=== PATIENT | male | born 1950 | race Caucasian/White ===

== ENCOUNTER → 2016-05-22 | Outpatient (CLI) | payer MEDICARE, MEDICAID ==
[~2016-05-22] MED LIST: ALBU8.5H2 INH; ALBUTEROL INHALER INH; ALPR.5T PO; ASP325T PO; ASPI-587 PO; ASPI81TA19 PO; ATOR20TA66 PO; CLAR-19 PO; CLN.1T PO; CLOP75TA PO; CLOP75TA28 PO; DOXY-233 PO; DULO30CA48 PO; ENAL2.5T PO; FERR-57 PO; GLIP5TAB13; IBP800T PO; IBUP-792 PO; INSA10V SC; INSHRV SC; INSU100C4 SQ; INSU100V13 SC; INSU100V3 SQ; INSU100V5 SQ; INSU100VTC SC; INSUSS SC; Insulin Human Lispro SC; LACT1CAP8 PO; LEVE500T PO; LEVE500T6 PO; LEVO125T PO; LEVO200T6 PO; LEVO300T8; LEVO50TA63 PO; LISI-556 PO; LSNP20T PO; LVT.05T PO; LVT.1T PO; METO25TA PO; NF-ESOM40C PO; ONDA8TAB6 PO; PAIN MEDS; PRD20T PO; PRM25T PO; RT-COMBINH IH; SIMV20TA3 PO; VENL150C PO; VENL75CA55 PO; VNL75T PO; methadone
--- OUTSIDE RECORDS SUMMARY | 2016-05-22 12:14 | XMS REPORT ---
Author Author JAROD DELANEY Organization e[employer] Address Unknown Phone Unavailable Care Team Providers Care Senior Software Quality Engineer Name Role Phone JAROD DELANEY CP Unavailable Allergies No Known Allergies Problems Problem Type Condition Code Onset Dates Condition Status Problem Vascular dementia with behavior disturbance F01.51 Active Problem Depression F32.9 Active Problem Pain R52 Active Problem Abnormal carotid ultrasound R93.8 Active Problem Type 2 diabetes mellitus with complication E11.8 Active Problem Long-term insulin use Z79.4 Active Medications Medication Code System Code Instructions Start Date End Date Status Dosage tramadol NDC 0 50 mg oral 3 times a day June 23, 2014 Mar 14, 2016 take 1 tablet Results No Known Results Summary Purpose eClinicalWorks Submission
--- NOTE | 2016-05-22 16:13 | Diagnostic Imaging Report ---
PROCEDURE: US bilateral lower extremity arterial. TECHNIQUE: Multiple real-time grayscale images are obtained through both lower extremity arterial systems with color Doppler imaging and color Doppler spectral analysis. INDICATION: Peripheral vascular disease. FINDINGS: In the left lower extremity there are prominent areas of calcified plaque along the femoropopliteal segments. No color flow is seen in the distal SFA suggestive of occlusion. There is an elevated velocity in the distal popliteal artery to 340 cm/s. No flow is seen in the left posterior tibial artery. There is diminished flow velocity of 39 cm/s in the left dorsalis pedis artery. Monophasic waveforms are seen throughout. In the right lower extremity also, monophasic waveforms are seen throughout. There is occlusion of the proximal and mid SFA with distal SFA flow seen. There is a no flow seen in the posterior tibial or dorsalis pedis arteries. IMPRESSION: Findings suggestive of significant peripheral arterial disease with occlusions in the SFA and posterior tibial arteries on both sides. The right dorsalis pedis artery is also occluded. Report was faxed to the office of LOU Ribeiro at 4:09 p.m., by malcolm. Dictated by: Dictated on workstation # [id number]
== END ==
LOC: RAD 12:10
PROVIDERS: ATTEND Nurse Practitioner Community Health
DX: I73.9 Peripheral vascular disease, unspecified (principal)
CPT/HCPCS: 93925

== ENCOUNTER → 2016-06-04 | Outpatient (CLI) | payer MEDICARE, MEDICAID ==
[2016-06-04 19:18] LABS: BILIRUBIN,URINE NEGATIVE (NEGATIVE); KETONES,URINE NEGATIVE (NEGATIVE); LEUKOCYTE ESTERASE ,URINE NEGATIVE (NEGATIVE); NITRITE,URINE NEGATIVE (NEGATIVE); PH,URINE 7 (5-9); PROTEIN,URINE 3+ (NEGATIVE); UROBILINOGEN,URINE NORMAL (NORMAL)
== END ==
PROVIDERS: ATTEND Internal Medicine
DX: Z87.440 Personal history of urinary (tract) infections (principal)
CPT/HCPCS: 81000

== ENCOUNTER 2016-07-19 19:22 | Emergency (ER) | payer MEDICARE, MEDICAID ==
[~2016-07-19] VITALS: Ht 177.8 cm; Wt 74.8 kg
[~2016-07-19 19:22] MED LIST changes: -LACT1CAP8 PO
[2016-07-19] MEDS ORDERED: LACTATED RINGERS 1,000 ML IV ONE (19:30)
--- NOTE | 2016-07-19 19:36 | ED GI ---
General Chief Complaint: Abdominal/GI Problems Stated Complaint: DIARRHEA Source of Information: Patient, EMS, Senior Care Records History of Present Illness Time Seen By Provider: 19:22 Initial Comments PT ARRIVES VIA EMS FROM [facility] PT HAS HAD DIARRHEA X 3-4 DAYS, STATES HE HAS HAD SOMEWHERE BETWEEN 5 AND 10 STOOLS TODAY NO VOMITING, BUT NOT BEEN EATING OR DRINKING MUCH USUAL NO FEVER NO ABDOMINAL PAIN NO CHANGE IN URINATION, PER PT PT NORMALLY IS AMBULATORY ON HIS OWN, BUT TODAY HAS BEEN TOO WEAK TO STAND AND REQUIRED 2 PERSON ASSIST TO STAND--PT STATES HE HAS BEEN LIGHTHEADED TODAY CARETAKERS THOUGHT HIS SPEECH WAS A LITTLE SLURRED TODAY--PT' S MOUTH IS VERY DRY PCP: DR. DELANEY Allergies and Home Medications Allergies Coded Allergies: acetaminophen (Verified Allergy, Intermediate, 12/09/11) Home Medications Aspirin 81 Mg Chew, 81 MG PO DAILY, (Reported) Atorvastatin Calcium 20 Mg Tablet, 20 MG PO HS, (Reported) Clopidogrel Bisulfate 75 Mg Tablet, 75 MG PO DAILY, (Reported) Enalapril Maleate 2.5 Mg Tablet, 2.5 MG PO BID, (Reported) Insulin Detemir 1 Unit/0.01 Ml Soln, 10 UNIT SQ HS for 30 Days Prescribed by: THERESA HOYT on 01/20/14 1307 Lactobacillus Acidophilus 1 Each Capsule, 2 EACH PO QID, #80 Prescribed by: CUCO UMANA on 07/19/16 9883 Levetiracetam 500 Mg Tablet, 500 MG PO BID, (Reported) Levothyroxine Sodium 200 Mcg Tablet, 200 MCG PO DAILY, (Reported) TAKES ALONG WITH 50MCG TABLET Levothyroxine Sodium 50 Mcg Tablet, 50 MCG PO DAILY, (Reported) TAKES ALONG WITH 200MCG TABLET Metoprolol Succinate 25 Mg Tab.sr.24h, 25 MG PO DAILY, (Reported) Venlafaxine Hcl 75 Mg Tab, 75 MG PO BID, (Reported) [Insulin Human Lispro] 1 UNIT/0.01 ML BENNETT, 5 UNIT SC AC for 30 Days Prescribed by: THERESA HOYT on 01/20/14 1307 Review of Systems Constitutional: see HPI, dizziness, No fever, malaise, weakness EENTM: Other (DRY MOUTH) Respiratory: No Symptoms Reported Cardiovascular: No Symptoms Reported Gastrointestinal: See HPI, Denies Abdominal Pain, Diarrhea, Denies Nausea, Poor Appetite, Poor Fluid Intake, Denies Vomiting Genitourinary: No Symptoms Reported Musculoskeletal: no symptoms reported Skin: no symptoms reported Psychiatric/Neurological: See HPI Endocrine: No Symptoms Reported Hematologic/Lymphatic: No Symptoms Reported Past Fpsfoko-Qxfwow-Sswabd Hx Immunizations Up To Date Tetanus Booster (TDap): Unknown Date of Pneumonia Vaccine: Mar 20, 2004 Date of Influenza Vaccine: Nov 12, 2010 Surgeries HX Surgeries: Yes (KNEE AND BACK SURGERY: DISKECTOMY AND FUSIONS, TOE AMPUTATION) Surgeries: Amputation, Coronary Stent Respiratory Hx Respiratory Disorders: Yes Respiratory Disorders: COPD Cardiovascular Hx Cardiac Disorders: Yes (STENT) Cardiac Disorders: Coronary Artery Disease, High Cholesterol, Hypertension, Peripheral Vascular Neurological Hx Neurological Disorders: Yes (VASCULAR DEMENTIA WITH BEHAVIORAL DISTURBANCE; PSEUDOBULBAR AFFECT; CONVERSION DISORDER WITH SEIZURES) Neurological Disorders: Dementia, Neuropathy, Seizure Disorder, Stroke Reproductive System Hx Reproductive Disorders: No Genitourinary Hx Genitourinary Disorders: No Gastrointestinal Hx Gastrointestinal Disorders: Yes (INTERMITTANT STENTS) Gastrointestinal Disorders: Gastroesophageal Reflux, Pancreatitis Musculoskeletal Hx Musculoskeletal Disorders: Yes (R TOE AMPUTATION; CHRONIC PAIN ) Musculoskeletal Disorders: Degenerate Disk Disease, Arthritis Endocrine Hx Endocrine Disorders: Yes Endocrine Disorders: Diabetes, Insulin dep, Hypothyroidsim HEENT HX ENT Disorders: No Cancer Hx Cancer: No Psychosocial Hx Psychiatric Problems: Yes Behavioral Health Disorders: Anxiety, Depression Integumentary HX Skin/Integumentary Disorder: No Blood Transfusions Hx Blood Disorders: No Family Medical History Family Medial History: Cardiovascular disease 19 FATHER 19 MOTHER Diabetes mellitus G8 BROTHER FH: cancer Thyroid disease 19 MOTHER (HYPOTHYROIDISM) Physical Exam Vital Signs VS - Last 72 Hours, by Label 07/19/16 19:24 Temp 98.3 Pulse 53 Resp 16 B/P (MAP) 113/91 Pulse Ox 97 O2 Delivery Room Air Capillary Refill : General Appearance: WD/WN, no apparent distress HEENT: PERRL/EOMI, other (ORAL MUCOSA VERY DRY, CAUSING SPEECH TO BE "THICK TONGUED" --TONGUE STICKING TO ROOF OF MOUTH DUE TO DRYNESS, AND TONGUE IS FISSURED) Neck: non-tender, full range of motion, supple, normal inspection Respiratory: normal breath sounds, no respiratory distress, no accessory muscle use Cardiovascular: regular rate, rhythm, no murmur Gastrointestinal: normal bowel sounds, soft, no organomegaly, tenderness ( SLIGHT DIFFUSE " PRESSURE" ON PALPATION OF ABDOMEN) Extremities: normal inspection, no pedal edema, no calf tenderness, normal capillary refill Back: no CVA tenderness Neurologic/Psychiatric: investment specialist II-XII nml as tested, no motor/sensory deficits, alert, normal mood/affect, oriented x 3 Skin: warm/dry, pallor Progress/Results/Core Measures Results/Orders Lab Results Laboratory Tests Test 07/19/16 19:29 07/19/16 19:51 07/19/16 22:03 Range/Units Glucometer 150 H 70-110 MG/DL White Blood Count 7.7 4.3-11.0 10^3/uL Red Blood Count 3.61 L 4.35-5.85 10^6/uL Hemoglobin 11.4 L 13.3-17.7 G/DL Hematocrit 34 L 40-54 % Mean Corpuscular Volume 94 80-99 FL Mean Corpuscular Hemoglobin 32 25-34 PG Mean Corpuscular Hemoglobin Concent 34 32-36 G/DL Red Cell Distribution Width 12.2 10.0-14.5 % Platelet Count 128 L 130-400 10^3/uL Mean Platelet Volume 11.2 H 7.4-10.4 FL Neutrophils (%) (Auto) 52 42-75 % Lymphocytes (%) (Auto) 35 12-44 % Monocytes (%) (Auto) 10 0-12 % Eosinophils (%) (Auto) 2 0-10 % Basophils (%) (Auto) 1 0-10 % Neutrophils # (Auto) 4.0 1.8-7.8 X 10^3 Lymphocytes # (Auto) 2.7 1.0-4.0 X 10^3 Monocytes # (Auto) 0.8 0.0-1.0 X 10^3 Eosinophils # (Auto) 0.2 0.0-0.3 10^3/uL Basophils # (Auto) 0.1 0.0-0.1 10^3/uL Sodium Level 130 L 135-145 MMOL/L Potassium Level 4.8 3.6-5.0 MMOL/L Chloride Level 98 98-107 MMOL/L Carbon Dioxide Level 22 21-32 MMOL/L Anion Gap 10 5-14 MMOL/L Blood Urea Nitrogen 21 H 7-18 MG/DL Creatinine 1.03 0.60-1.30 MG/DL Estimat Glomerular Filtration Rate > 60 BUN/Creatinine Ratio 20 Glucose Level 141 H 70-105 MG/DL Calcium Level 7.9 L 8.5-10.1 MG/DL Magnesium Level 1.4 L 1.8-2.4 MG/DL Total Bilirubin 0.3 0.1-1.0 MG/DL Aspartate Amino Transf (AST/SGOT) 17 5-34 U/L Alanine Aminotransferase (ALT/SGPT) 11 0-55 U/L Alkaline Phosphatase 57 40-136 U/L Total Protein 5.6 L 6.4-8.2 G/DL Albumin 3.5 3.2-4.5 G/DL Amylase Level 40 25-125 U/L Lipase < 4 L 8-78 U/L Free Thyroxine 0.95 0.70-1.48 NG/DL TSH Gardner Testing 5.18 H 0.35-4.94 UIU/ML Valproic Acid (Depakene) Level 50.3 50.0-100.0 UG/ML Urine Color YELLOW Urine Clarity CLEAR Urine pH 6 5-9 Urine Specific [place] 1.010 L 1.016-1.022 Urine Protein NEGATIVE NEGATIVE Urine Glucose (UA) NEGATIVE NEGATIVE Urine Ketones NEGATIVE NEGATIVE Urine Nitrite NEGATIVE NEGATIVE Urine Bilirubin NEGATIVE NEGATIVE Urine Urobilinogen NORMAL NORMAL MG/DL Urine Leukocyte Esterase NEGATIVE NEGATIVE Urine RBC (Auto) NEGATIVE NEGATIVE Urine RBC NONE /HPF Urine WBC NONE /HPF Urine Squamous Epithelial Cells RARE /HPF Urine Crystals NONE /LPF Urine Bacteria NEGATIVE /HPF Urine Casts NONE /LPF Urine Mucus NEGATIVE /LPF Urine Other FEW SPERM H /HPF Urine Culture Indicated NO My Orders Orders - CUCO UMANA DO Accucheck Stat ONCE (07/19/16 19:30) Saline Lock/Iv-Start (07/19/16 19:30) Monitor-Rhythm Ecg Trace Only (07/19/16 19:30) Amylase (07/19/16 19:30) Cbc With Automated Diff (07/19/16 19:30) Comprehensive Metabolic Panel (07/19/16 19:30) Lipase (07/19/16 19:30) Magnesium (07/19/16 19:30) Thyroid Analyzer (07/19/16 19:30) Ua Culture If Indicated (07/19/16 19:30) Valproic Acid (07/19/16 19:30) Saline Lock/Iv-Start (07/19/16 19:30) Lactated Ringers (Lr 1000 Ml Iv Solution (07/19/16 19:30) Ct Abdomen/Pelvis W (07/19/16 20:35) Saline Lock/Iv-Start (07/19/16 20:35) Ns Iv 1000 Ml (Sodium Chloride 0.9%) (07/19/16 20:35) Magnesium 1 Gm/100 Ml Ivpb (Magnesium Quintero (07/19/16 20:45) Iohexol Injection (Omnipaque 350 Mg/Ml 1 (07/19/16 20:45) Ns (Ivpb) (Sodium Chloride 0.9% Ivpb Bag (07/19/16 20:45) Free T4 (Free Thyroxine) (07/19/16 19:51) Medications Given in ED Current Medications Medications Dose Ordered Sig/Manuel Route Start Time Stop Time Status Last Admin Dose Admin Iohexol 100 ml ONCE ONCE IV 07/19/16 20:45 07/19/16 20:46 DC 07/19/16 20:45 100 ML Lactated Ringer's 1,000 ml @ 0 mls/hr Q0M ONCE IV 07/19/16 19:30 07/19/16 19:32 DC 07/19/16 20:05 0 MLS/HR Magnesium Sulfate/ Dextrose 100 ml @ 100 mls/hr ONCE ONCE IV 07/19/16 20:45 07/19/16 21:44 DC 07/19/16 21:18 100 MLS/HR Sodium Chloride 100 ml ONCE ONCE IV 07/19/16 20:45 07/19/16 20:46 DC 07/19/16 20:45 80 ML Sodium Chloride 1,000 ml @ 0 mls/hr Q0M ONCE IV 07/19/16 20:35 07/19/16 21:37 DC 07/19/16 21:15 0 MLS/HR Vital Signs/I&O Vital Sign - Last 12Hours 07/19/16 19:24 Temp 98.3 Pulse 53 Resp 16 B/P (MAP) 113/91 Pulse Ox 97 O2 Delivery Room Air Progress Note : Progress Note UNEVENTFUL ER STAY--PT HAD NO COMPLAINTS OF ANY KIND PT WITH NO DIARRHEA DURING ER STAY--WILL SEND BACK TO INTERMEDIATE WITH SPECIMEN CONTAINERS AND OUTPATIENT ORDERS FOR STOOL STUDIES PT DRINKING WATER WITHOUT DIFFICULTY DURING ER STAY Diagnostic Imaging Comments CT ABDOMEN/PELVIS--FLUID IN INTESTINES C/W DIARRHEA, OTHERWISE NO ACUTE PROCESS- -PER RADIOLOGIST REPORT @ 6187 Reviewed: Reviewed by Me Departure Impression Impression: Primary Impression: Diarrhea Additional Impressions: Dehydration Generalized weakness Hyponatremia Hypomagnesemia Disposition: SNF Condition: Improved Departure-Patient Inst. Referrals: JOLLY DELANEY MD (PCP) Primary Care Physician STEPHANIE CHRISTIANSEN (Family) Primary Care Physician Patient Instructions: Dehydration, Adult (DC), Diarrhea in Adolescents and Adults, Electrolyte Panel, Viral Gastroenteritis, Adult (DC) Add. Discharge Instructions: CLEAR LIQUIDS--WATER, BROTH, JELLO, GATORADE--DRINK ENOUGH SO YOU ARE URINATING EVERY 2-3 HOURS WHILE AWAKE BRATS DIET--BANANAS, RICE, APPLESAUCE, TOAST, SALTINES RETURN STOOL SPECIMEN TO LAB SOON IT IS OBTAINED FOLLOW UP WITH YOUR DR IN 2-3 DAYS IF NO BETTER RETURN TO ER IF WORSE All discharge instructions reviewed with patient and/or family. Voiced understanding. Scripts Lactobacillus Acidophilus (Acidophilus) 1 Each Capsule 2 EACH PO QID, #80 CAP Prov: CUCO UMANA DO 07/19/16 CUCO UMANA DO Jul 19, 2016 19:36
[2016-07-19 19:57] LABS: BASOPHILS # (AUTO) 0.1 10^3/uL (0.0-0.1); BASOPHILS % (AUTO) 1 % (0-10); EOSINOPHILS # (AUTO) 0.2 10^3/uL (0.0-0.3); EOSINOPHILS % (AUTO) 2 % (0-10); LYMPHOCYTES # (AUTO) 2.7 X 10^3 (1.0-4.0); LYMPHOCYTES % (AUTO) 35 % (12-44); MEAN CORPUSCULAR HEMOGLOBIN 32 PG (25-34); MEAN CORPUSCULAR HGB CONC 34 G/DL (32-36); MEAN CORPUSCULAR VOLUME 94 FL (80-99); MEAN PLATELET VOLUME 11.2 FL (7.4-10.4); MONOCYTES # (AUTO) 0.8 X 10^3 (0.0-1.0); MONOCYTES % (AUTO) 10 % (0-12); NEUTROPHILS % (AUTO) 52 % (42-75); PLATELET COUNT 128 10^3/uL (130-400); RED BLOOD COUNT 3.61 10^6/uL (4.35-5.85); RED CELL DISTRIBUTION WIDTH 12.2 % (10.0-14.5); WHITE BLOOD COUNT 7.7 10^3/uL (4.3-11.0)
[2016-07-19 20:23] LABS: ALANINE AMINOTRANSFERASE 11 U/L (0-55); ALBUMIN 3.5 G/DL (3.2-4.5); AMYLASE 40 U/L (25-125); ANION GAP 10 MMOL/L (5-14); ASPARTATE AMINO TRANSFERASE 17 U/L (5-34); BILIRUBIN,TOTAL 0.3 MG/DL (0.1-1.0); BLOOD UREA NITROGEN 21 MG/DL (7-18); BUN/CREATININE RATIO 20; CALCIUM 7.9 MG/DL (8.5-10.1); CARBON DIOXIDE 22 MMOL/L (21-32); CHLORIDE 98 MMOL/L (98-107); CREATININE SERUM 1.03 MG/DL (0.60-1.30); GFR ESTIMATED > 60; GLUCOSE 141 MG/DL (70-105); LIPASE < 4 U/L (8-78); MAGNESIUM 1.4 MG/DL (1.8-2.4); POTASSIUM 4.8 MMOL/L (3.6-5.0); SODIUM 130 MMOL/L (135-145); TOTAL PROTEIN 5.6 G/DL (6.4-8.2)
[2016-07-19] MEDS ORDERED: NS IV 1000 ML 1,000 ML IV ONE (20:35)
[2016-07-19 20:45] LABS: VALPROIC ACID 50.3 UG/ML (50.0-100.0)
[2016-07-19] MEDS ORDERED: NS 100 ML (IVPB) BAG IV ONE (20:45)
[2016-07-19] MEDS ORDERED: MAGNESIUM 1 GM/100 ML IVPB 100 ML IV ONE (20:45)
[2016-07-19] MEDS ORDERED: IOHEXOL 350 MG/ML 100 ML (OMNIPAQUE 350) VIAL IV ONE (20:45)
--- NOTE | 2016-07-19 21:10 | Diagnostic Imaging Report ---
PROCEDURE: CT abdomen and pelvis with contrast. TECHNIQUE: Multiple contiguous axial images were obtained through the abdomen and pelvis after administration of intravenous contrast. INDICATION: Abdominal pain and diarrhea x3 days Lung bases are clear. Liver appears normal. Gallbladder surgically absent. Spleen is unremarkable. There are calcifications throughout the pancreas suggesting chronic pancreatitis but no evidence of acute pancreatitis. Adrenals and kidneys appear normal. There is atherosclerosis of the aorta. Small bowel contains increased amount of fluid. There is gas throughout the colon. Urinary bladder and prostate appear normal. There is no intraperitoneal free air or free fluid. IMPRESSION: Increased small intestinal fluid could be secondary to diarrhea. CT abdomen and pelvis otherwise unremarkable. Dictated by: Dictated on workstation # [id number]
[2016-07-19 22:08] LABS: BILIRUBIN,URINE NEGATIVE (NEGATIVE); KETONES,URINE NEGATIVE (NEGATIVE); LEUKOCYTE ESTERASE ,URINE NEGATIVE (NEGATIVE); NITRITE,URINE NEGATIVE (NEGATIVE); PH,URINE 6 (5-9); PROTEIN,URINE NEGATIVE (NEGATIVE); UROBILINOGEN,URINE NORMAL (NORMAL)
[2016-07-19 22:18] LABS: SQUAMOUS EPITHELIAL CELL,UR RARE /HPF
[2016-07-19] MEDS ORDERED: LACT1CAP8 PO (22:53)
[2016-07-19 23:10] VITALS: BP 107/51
--- OUTSIDE RECORDS SUMMARY | 2016-08-25 04:10 | XMS REPORT ---
Author Author JAROD DELANEY Organization e[employer]Works Address Unknown Phone Unavailable Care Team Providers Care Garnetter Name Role Phone JAROD DELANEY CP Unavailable [...]
--- OUTSIDE RECORDS SUMMARY | 2016-08-25 04:11 | XMS REPORT ---
Author Author STEPHANIE CHRISTIANSEN Organization [employer] Address Unknown Phone Unavailable Care Team Providers Care Medical Records Manager Name Role Phone STEPHANIE CHRISTIANSEN CP Unavailable Allergies No Known Allergies Problems Problem Type Condition ICD-9 Code Onset Dates Condition Status Problem Personal history of noncompliance with medical treatment, presenting hazards to health V15.81 Active Assessment Nicotine addiction 305.1 Active Problem Acute bronchitis 466.0 Active Problem Other malaise and fatigue 780.79 Active Problem Unspecified drug dependence, unspecified abuse 304.90 Active Problem Hyposmolality and/or hyponatremia 276.1 Active Problem Diarrhea 787.91 Active Problem Personal history of tobacco use, presenting hazards to health V15.82 Active Problem Lumbago 724.2 Active Problem Other chronic pain 338.29 Active Problem Lower limb amputation, other toe(s) V49.72 Active Problem Diabetes 250.00 Active Problem Dizziness and giddiness 780.4 Active Problem Other alteration of consciousness 780.09 Active Problem Other abnormal blood chemistry 790.6 Active Problem Major depressive disorder, recurrent episode, severe, without mention of psychotic behavior 296.33 Active Problem Delirium due to conditions classified elsewhere 293.0 Active Problem Other disorder of coccyx 724.79 Active Problem Primary localized osteoarthrosis, lower leg 715.16 Active Problem Unspecified backache 724.5 Active Problem Unspecified persistent mental disorders due to conditions classified elsewhere 294.9 Active Problem Muscle weakness (generalized) 728.87 Active Problem Disturbance of skin sensation 782.0 Active Problem Unspecified anemia 285.9 Active Problem Unspecified sleep disturbance 780.50 Active Medications No Known Medications Procedures Procedure Coding System Code Date Stable Visit (10 minutes) CPT-4 51824 Dec 28, 2014 Results No Known Results Summary Purpose eClinicalWorks Submission
--- OUTSIDE RECORDS SUMMARY | 2016-08-25 04:11 | XMS REPORT ---
Author Author STEPHANIE CHRISTIANSEN [facility] eClinical[employer] Address Unknown Phone Unavailable Care Team Providers Care Environmental Sampling Technician Name Role Phone STEPHANIE CHRISTIANSEN CP Unavailable Allergies No Known Allergies Problems Problem Type Condition Code Onset Dates Condition Status Problem Lower limb amputation, other toe(s) V49.72 Active Problem Type 2 diabetes mellitus with complication E11.8 Active Problem Long-term insulin use Z79.4 Active Problem Depression F32.9 Active Problem Major depressive disorder, recurrent episode, severe, without mention of psychotic behavior 296.33 Active Problem Other chronic pain 338.29 Active Problem Personal history of tobacco use, presenting hazards to health V15.82 Active Problem Lumbago 724.2 Active Medications No Known Medications Results No Known Results Summary Purpose eClinicalWorks Submission
--- OUTSIDE RECORDS SUMMARY | 2016-08-25 04:11 | XMS REPORT ---
Author JAROD Sanchez [facility] eClinical[employer] Address Unknown Phone Unavailable Care Team Providers Care Sales Enablement Consultant Name Role Phone JAROD DELANEY CP Unavailable Allergies, Adverse Reactions, Alerts Substance Reaction Event Type Benzodiazepines Violated Narcotics Contract (Buying drugs off the street) & failed UDS Non Drug Allergy Hydrocodone Violated Narcotics Contract (buying drugs off the street) & failed UDS Non Drug Allergy Problems Problem Type Condition Code Onset Dates Condition Status Problem Vascular dementia with behavior disturbance F01.51 Active Problem Depression F32.9 Active Problem Pain R52 Active Problem Abnormal carotid ultrasound R93.8 Active Assessment Viral illness B34.9 Active Problem Type 2 diabetes mellitus with complication E11.8 Active Problem Long-term insulin use Z79.4 Active Medications Medication Code System Code Instructions Start Date End Date Status Dosage Citalopram Hydrobromide [facility] [address]-80 20 mg Orally Once a day 1 tablet Melatonin [facility] [address]-32 3 MG Orally Once a day 1 tablet at bedtime as needed with food Remeron [facility] [address]-44 15 MG Orally Once a day 1 tablet before bedtime in the evening NovoLog [facility] [address]-84 100 UNIT/ML Subcutaneous 3 times a day 8 units Ativan [facility] [address]-66 1 MG Orally twice a day June 23, 2014 1 tablet Levothyroxine Sodium [facility] [address]-98 150 MCG Orally Once a day Mar 06, 2015 1 tablet Aspirin [facility] [address]-86 81 mg Feb 04, 2013 1 tablet by Oral route 1 time per day Keppra [facility] [address]-23 500 MG Orally every 12 hrs 1 tablet Levemir [facility] [address]-08 100 15 UNITS UNDER THE SKIN AT BEDTIME Vitamin D3 [facility] [address]-03 2000 UNIT Orally Once a day 2 capsule (4000 units) Vasotec [facility] [address]-43 2.5 MG Orally Once a day 1 tablet Effexor NDC 0 150 mg May 02, 2011 1 Capsule by Oral route 1 time per day for 30 days tramadol NDC 0 50 mg oral 3 times a day June 23, 2014 Mar 06, 2016 take 1 tablet Metoprolol Succinate ER [facility] [address]-22 25 MG Orally Once a day 1 tablet Plavix [facility] [address]-63 75 MG Orally Once a day 1 tablet Atorvastatin Calcium [facility] [address]-92 10 mg Orally Once a day at HS 1 tablet Exelon [facility] [address]-95 9.5 MG/24HR Transdermal Once a day July 14, 2015 1 patch to skin Depakote Sprinkles [facility] [address]-35 250 mg Orally Once a day 1 capsule Metformin HCl [facility] [address]-41 1000 MG Orally Twice a day 1 tablet with meals Procedures Procedure Coding System Code Date Office Visit, Est Pt., Level 2 CPT-4 19903 Feb 15, 2016 [facility] VISIT ESTABLISHED PATIENT CPT-4 G0467 Feb 15, 2016 Vital Signs Date/Time: Feb 15, 2016 Cardiac Monitoring Heart Rate 72 bpm Weight 170.6 lbs Height 68 in BMI 25.94 Index Blood Pressure Diastolic 74 mmHg Blood Pressure Systolic 124 mmHg Results No Known Results Summary Purpose eClinicalWorks Submission
--- OUTSIDE RECORDS SUMMARY | 2016-08-25 04:11 | XMS REPORT ---
Author Author JAROD DELANEY Organization [employer] Address Unknown Phone Unavailable Care Team Providers Care Television Maintenance Man Name Role Phone JAROD DELANEY CP Unavailable Allergies No Known Allergies Problems Problem Type Condition Code Onset Dates Condition Status Problem Vascular dementia with behavior disturbance F01.51 Active Problem Depression F32.9 Active Problem Pain R52 Active Problem Abnormal carotid ultrasound R93.8 Active Assessment Pain R52 Active Problem Type 2 diabetes mellitus with complication E11.8 Active Problem Long-term insulin use Z79.4 Active Medications Medication Code System Code Instructions Start Date End Date Status Dosage tramadol NDC 0 50 mg oral 3 times a day June 23, 2014 Feb 12, 2016 take 1 tablet as needed pain Results No Known Results Summary Purpose eClinicalWorks Submission
--- OUTSIDE RECORDS SUMMARY | 2016-08-25 04:11 | XMS REPORT ---
Author Author STEPHANIE CHRISTIANSEN Organization [employer] Address Unknown Phone Unavailable Care Team Providers Care Presto Log Operator Name Role Phone STEPHANIE CHRISTIANSEN CP Unavailable Allergies No Known Allergies Problems Problem Type Condition Code Onset Dates Condition Status Problem Personal history of noncompliance with medical treatment, presenting hazards to health V15.81 Active Assessment Hyperthyroidism E05.90 Active Problem Acute bronchitis 466.0 Active Problem [...] disturbance 780.50 Active Medications No Known Medications Results No Known Results Summary Purpose eClinicalWorks Submission
--- OUTSIDE RECORDS SUMMARY | 2016-08-25 04:12 | XMS REPORT ---
Author Author STEPHANIE CHRISTIANSEN Organization [employer] Address Unknown Phone Unavailable Care Team Providers Care Vacuum Cleaner Assembler Name Role Phone STEPHANIE CHRISTIANSEN CP Unavailable Allergies No Known Allergies Problems Problem Type Condition Code Onset Dates Condition Status Problem Unspecified drug dependence, unspecified abuse 304.90 Active Problem Hyposmolality and/or hyponatremia 276.1 Active Problem Diarrhea 787.91 Active Problem Personal history of tobacco use, presenting hazards to health V15.82 Active Problem Other chronic pain 338.29 Active Problem Lumbago 724.2 Active Problem Lower limb amputation, other toe(s) V49.72 Active Problem Dizziness and giddiness 780.4 Active Problem Diabetes 250.00 Active Problem Other alteration of consciousness 780.09 [...] Active Problem Unspecified anemia 285.9 Active Problem Personal history of noncompliance with medical treatment, presenting hazards to health V15.81 Active Problem Other malaise and fatigue 780.79 Active Problem Unspecified sleep disturbance 780.50 Active Problem Acute bronchitis 466.0 Active Medications Medication Code System Code Instructions Start Date End Date Status Dosage Levothyroxine Sodium [facility] [address]-82 150 MCG Orally Once a day Mar 06, 2015 1 tablet Results No Known Results Summary Purpose eClinicalWorks Submission
--- OUTSIDE RECORDS SUMMARY | 2016-08-25 04:12 | XMS REPORT ---
Author Author STEPHANIE CHRISTIANSEN Organization [employer] Address Unknown Phone Unavailable Care Team Providers Care Well Puller Head Name Role Phone STEPHANIE CHRISTIANSEN CP Unavailable [...] Instructions Start Date End Date Status Dosage Levemir [facility] [id number] 100 20 UNITS IN THE MORNING AND AT BEDTIME Results No Known Results Summary Purpose eClinicalWorks Submission
--- OUTSIDE RECORDS SUMMARY | 2016-08-25 04:12 | XMS REPORT ---
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
--- OUTSIDE RECORDS SUMMARY | 2016-08-25 04:12 | XMS REPORT ---
Author Author JAROD DELANEY Organization [employer] Address Unknown Phone Unavailable Care Team Providers Care Health Information Systems Technician Name Role Phone JAROD DELANEY CP Unavailable [...] 2014 Feb 12, 2016 take 1 tablet Results No Known Results Summary Purpose [employer]Clinical[employer] Submission
--- OUTSIDE RECORDS SUMMARY | 2016-08-25 04:12 | XMS REPORT ---
Author Author STEPHANIE CHRISTIANSEN Organization [employer] Address Unknown Phone Unavailable Care Team Providers Care Electric Motor Repairman Name Role Phone STEPHANIE CHRISTIANSEN CP Unavailable Allergies No Known Allergies Problems Problem Type Condition Code Onset Dates Condition Status Problem Other malaise and fatigue 780.79 Active Problem Dizziness and giddiness 780.4 Active Problem Diarrhea 787.91 Active Problem Lower limb amputation, other toe(s) V49.72 Active Problem Hyposmolality and/or hyponatremia 276.1 Active Problem Other chronic pain 338.29 Active Problem Other abnormal blood chemistry 790.6 Active Problem Delirium due to conditions classified elsewhere 293.0 Active Problem Other alteration of consciousness 780.09 Active Problem Type 2 diabetes mellitus with complication E11.8 Active Problem Long-term insulin use Z79.4 Active Problem Other disorder of coccyx 724.79 Active Problem Unspecified persistent mental disorders due to conditions classified elsewhere 294.9 Active Problem Depression F32.9 Active Problem Unspecified backache 724.5 Active Problem Lumbago 724.2 Active Problem Major depressive disorder, recurrent episode, severe, without mention of psychotic behavior 296.33 Active Problem Diabetes 250.00 Active Problem Personal history of tobacco use, presenting hazards to health V15.82 Active Problem Unspecified sleep disturbance 780.50 Active Problem Muscle weakness (generalized) 728.87 Active Problem Primary localized osteoarthrosis, lower leg 715.16 Active Problem Unspecified anemia 285.9 Active Problem Acute bronchitis 466.0 Active Problem Unspecified drug dependence, unspecified abuse 304.90 Active Problem Disturbance of skin sensation 782.0 Active Problem Personal history of noncompliance with medical treatment, presenting hazards to health V15.81 Active Medications No Known Medications Results No Known Results Summary Purpose [employer] Submission
--- OUTSIDE RECORDS SUMMARY | 2016-08-25 04:12 | XMS REPORT ---
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
--- OUTSIDE RECORDS SUMMARY | 2016-08-25 04:12 | XMS REPORT ---
Author Author STEPHANIE CHRISTIANSEN [facility] [employer] Address Unknown Phone Unavailable Care Team Providers Care Bacteriologist Fishery Name Role Phone STEPHANIE CHRISTIANSEN CP Unavailable [...]
--- OUTSIDE RECORDS SUMMARY | 2016-08-25 04:13 | XMS REPORT ---
Author Author STEPHANIE CHRISTIANSEN Organization [employer] Address Unknown Phone Unavailable Care Team Providers Care Spoon Maker Name Role Phone STEPHANIE CHRISTIANSEN CP Unavailable [...]
--- OUTSIDE RECORDS SUMMARY | 2016-08-25 04:13 | XMS REPORT ---
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
--- OUTSIDE RECORDS SUMMARY | 2016-08-25 04:13 | XMS REPORT ---
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
--- OUTSIDE RECORDS SUMMARY | 2016-08-25 04:13 | XMS REPORT ---
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
--- OUTSIDE RECORDS SUMMARY | 2016-08-25 04:14 | XMS REPORT ---
Author Author JAROD DELANEY Organization [employer] Address Unknown Phone Unavailable Care Team Providers Care Cost Controller Name Role Phone JAROD DELANEY CP Unavailable [...]
--- OUTSIDE RECORDS SUMMARY | 2016-08-25 04:14 | XMS REPORT ---
Author Author STEPHANIE CHRISTIANSEN Organization [employer] Address Unknown Phone Unavailable Care Team Providers Care Servicer Travel Trailers Name Role Phone STEPHANIE CHRISTIANSEN CP Unavailable Allergies No Known Allergies Problems Problem Type Condition Code Onset Dates Condition Status Assessment Long-term insulin use Z79.4 Active Assessment Type 2 diabetes mellitus with complication E11.8 Active Assessment Depression F32.9 Active Problem Other malaise and fatigue 780.79 [...] health V15.81 Active Medications No Known Medications Procedures Procedure Coding System Code Date Minor complication (15 mins) CPT-4 92031 Mar 15, 2015 Results No Known Results Summary Purpose [employer]Clinical[employer] Submission
--- OUTSIDE RECORDS SUMMARY | 2016-08-25 04:14 | XMS REPORT ---
Author Author JAROD DELANEY Organization [employer] Address Unknown Phone Unavailable Care Team Providers Care Timber Repairer Name Role Phone JAROD DELANEY CP Unavailable [...] Code Date Stable Visit (10 minutes) CPT-4 94997 Dec 07, 2015 Results No Known Results Summary Purpose [employer]ClinicalWorks Submission
--- OUTSIDE RECORDS SUMMARY | 2016-08-25 04:14 | XMS REPORT ---
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
--- OUTSIDE RECORDS SUMMARY | 2016-08-25 04:14 | XMS REPORT ---
Author Author STEPHANIE CHRISTIANSEN [facility] eClinical[employer] Address Unknown Phone Unavailable Care Team Providers Care Exhibition Designer Name Role Phone STEPHAINE CHRISTIANSEN CP Unavailable Allergies No Known Allergies [...]
--- OUTSIDE RECORDS SUMMARY | 2016-08-25 04:14 | XMS REPORT ---
Author Author JAROD DELANEY Organization [employer] Address Unknown Phone Unavailable Care Team Providers Care Meat Loiner Name Role Phone JAROD DELANEY CP Unavailable [...] 2014 Mar 06, 2016 take 1 tablet Results No Known Results Summary Purpose [employer]ClinicalWorks Submission
--- OUTSIDE RECORDS SUMMARY | 2016-08-25 04:14 | XMS REPORT ---
Author Author JAROD DELANEY Organization [employer] Address Unknown Phone Unavailable Care Team Providers Care Pick Pulling Machine Operator Name Role Phone JAROD DELANEY CP Unavailable [...]
--- OUTSIDE RECORDS SUMMARY | 2016-08-25 04:20 | XMS REPORT | Continuity of Care Document ---
Author Author [facility] Address Unknown Phone Unavailable Allergies Active Description Code Type Severity Reaction Onset Reported/Identified Relationship to Patient Clinical Status Yes acetaminophen [id number] Drug Allergy Moderate N/A 12/09/2011 Yes Benzodiazepines Drug Allergy N/A N/A 03/26/2012 Yes Hydrocodone Drug Allergy N/A N/A 03/26/2012 Yes Benzodiazepines Drug Allergy 03/26/2012 Yes Hydrocodone Drug Allergy 03/26/2012 Medications Problems Date Dx Coded Attending Type Code Diagnosis Diagnosed By 10/10/2008 SHAW DO, CACHORRO K 338.4 CHRONIC PAIN SYNDROME 10/10/2008 338.4 CHRONIC PAIN SYNDROME 10/10/2008 SHAW DO, CACHORRO K 338.4 CHRONIC PAIN SYNDROME 10/10/2008 SHAW DO, CACHORRO K 338.4 CHRONIC PAIN SYNDROME 10/10/2008 338.4 CHRONIC PAIN SYNDROME 10/10/2008 SHAW DO, CACHORRO K 338.4 CHRONIC PAIN SYNDROME 10/10/2008 338.4 CHRONIC PAIN SYNDROME 10/10/2008 338.4 CHRONIC PAIN SYNDROME 10/10/2008 338.4 CHRONIC PAIN SYNDROME 10/10/2008 SHAW DO, CACHORRO K 338.4 CHRONIC PAIN SYNDROME 10/10/2008 SHAW DO, CACHORRO K 338.4 CHRONIC PAIN SYNDROME 10/10/2008 SHAW DO, CACHORRO K 338.4 CHRONIC PAIN SYNDROME 10/10/2008 SHAW DO, CACHORRO K 338.4 CHRONIC PAIN SYNDROME 10/10/2008 SHAW DO, CACHORRO K 338.4 CHRONIC PAIN SYNDROME 10/10/2008 SHAW DO, CACHORRO K 338.4 CHRONIC PAIN SYNDROME 10/10/2008 JOLLY DELANEY MD 338.4 CHRONIC PAIN SYNDROME 10/10/2008 SHAW DO, CACHORRO K 338.4 CHRONIC PAIN SYNDROME 10/10/2008 SHAW DO, CACHORRO K 338.4 CHRONIC PAIN SYNDROME 10/10/2008 SHAW DO, CACHORRO K 338.4 CHRONIC PAIN SYNDROME 10/10/2008 VENUS SUN, JE Cabrera 338.4 CHRONIC PAIN SYNDROME 10/10/2008 VENUS SUN, JE Cabrera 338.4 CHRONIC PAIN SYNDROME 10/10/2008 SHAW DO, CACHORRO K 338.4 CHRONIC PAIN SYNDROME 10/10/2008 ARSEN CONTRACT NEGOTIATION SPECIALISTSIMRAN Braun 338.4 CHRONIC PAIN SYNDROME 10/10/2008 ARSEN CONTRACT NEGOTIATION SPECIALIST, SIMRAN 338.4 CHRONIC PAIN SYNDROME 10/10/2008 SHAW DO, CACHORRO K 338.4 CHRONIC PAIN SYNDROME 10/10/2008 CLARIBEL RAMEY MD 338.4 CHRONIC PAIN SYNDROME 10/10/2008 STEPHANIE CHRISTIANSEN APRN S 338.4 CHRONIC PAIN SYNDROME 10/10/2008 JOLLY DELANEY MD 338.4 CHRONIC PAIN SYNDROME 10/10/2008 STEPHANIE CHRISTIANSEN APRN S 338.4 CHRONIC PAIN SYNDROME 11/15/2008 SHAW DO, CACHORRO K 300.00 anxiety 11/15/2008 300.00 anxiety 11/15/2008 SHAW DO, CACHORRO K 300.00 anxiety 11/15/2008 SHAW DO, CACHORRO K 300.00 anxiety 11/15/2008 300.00 anxiety 11/15/2008 SHAW DO, CACHORRO K 300.00 anxiety 11/15/2008 300.00 anxiety 11/15/2008 300.00 anxiety 11/15/2008 300.00 anxiety 11/15/2008 SHAW DO, CACHORRO K 300.00 anxiety 11/15/2008 SHAW DO, CACHORRO K 300.00 anxiety 11/15/2008 SHAW DO, CACHORRO K 300.00 anxiety 11/15/2008 SHAW DO, CACHORRO K 300.00 anxiety 11/15/2008 SHAW DO, CACHORRO K 300.00 anxiety 11/15/2008 SHAW DO, CACHORRO K 300.00 anxiety 11/15/2008 JOLLY DELANEY MD 300.00 anxiety 11/15/2008 SHAW DO, CACHORRO K 300.00 anxiety 11/15/2008 SHAW DO, CACHORRO K 300.00 anxiety 11/15/2008 SHAW DO, CACHORRO K 300.00 anxiety 11/15/2008 VENUS SUN, JE Cabrera 300.00 anxiety 11/15/2008 VENUS SUN, JE Cabrera 300.00 anxiety 11/15/2008 SHAW DO, CACHORRO K 300.00 anxiety 11/15/2008 ARSEN MUÑOZ, SIMRAN 300.00 anxiety 11/15/2008 ARSEN WANDA, SIMRAN 300.00 anxiety 11/15/2008 SHAW DO, CACHORRO K 300.00 anxiety 11/15/2008 TANVIR JAMES, CLARIBEL Braun 300.00 anxiety 11/15/2008 STEPHANIE CHRISTIANSEN APRN 300.00 anxiety 11/15/2008 ELAINA JAMES, JOLLY 300.00 anxiety 11/15/2008 STEPHANIE CHRISTIANSEN APRN 300.00 anxiety 12/13/2008 SHAW DO, CACHORRO K 465.9 Upper Respiratory Infection 12/13/2008 SHAW DO, CACHORRO K 787.03 Vomiting 12/13/2008 SHAW DO, CACHORRO K 787.91 Diarrhea 12/13/2008 465.9 Upper Respiratory Infection 12/13/2008 787.03 Vomiting 12/13/2008 787.91 Diarrhea 12/13/2008 SHAW DO, CACHORRO K 465.9 Upper Respiratory Infection 12/13/2008 SHAW DO, CACHORRO K 787.03 Vomiting 12/13/2008 SHAW DO, CACHORRO K 787.91 Diarrhea 12/13/2008 SHAW DO, CACHORRO K 465.9 Upper Respiratory Infection 12/13/2008 SHAW DO, CACHORRO K 787.03 Vomiting 12/13/2008 SHAW DO, CACHORRO K 787.91 Diarrhea 12/13/2008 465.9 Upper Respiratory Infection 12/13/2008 787.03 Vomiting 12/13/2008 787.91 Diarrhea 12/13/2008 SHAW DO, CACHORRO K 465.9 Upper Respiratory Infection 12/13/2008 SHAW DO, CACHORRO K 787.03 Vomiting 12/13/2008 SHAW DO, CACHORRO K 787.91 Diarrhea 12/13/2008 465.9 Upper Respiratory Infection 12/13/2008 787.03 Vomiting 12/13/2008 787.91 Diarrhea 12/13/2008 465.9 Upper Respiratory Infection 12/13/2008 787.03 Vomiting 12/13/2008 787.91 Diarrhea 12/13/2008 465.9 Upper Respiratory Infection 12/13/2008 787.03 Vomiting 12/13/2008 787.91 Diarrhea 12/13/2008 SHAW DO, CACHORRO K 465.9 Upper Respiratory Infection 12/13/2008 SHAW DO, CACHORRO K 787.03 Vomiting 12/13/2008 SHAW DO, CACHORRO K 787.91 Diarrhea 12/13/2008 SHAW DO, CACHORRO K 465.9 Upper Respiratory Infection 12/13/2008 SHAW DO, CACHORRO K 787.03 Vomiting 12/13/2008 SHAW DO, CACHORRO K 787.91 Diarrhea 12/13/2008 SHAW DO, CACHORRO K 465.9 Upper Respiratory Infection 12/13/2008 SHAW DO, CACHORRO K 787.03 Vomiting 12/13/2008 SHAW DO, CACHORRO K 787.91 Diarrhea 12/13/2008 SAHW DO, CACHORRO K 465.9 Upper Respiratory Infection 12/13/2008 SHAW DO, CACHORRO K 787.03 Vomiting 12/13/2008 SHAW DO, CACHORRO K 787.91 Diarrhea 12/13/2008 SHAW DO, CACHORRO K 465.9 Upper Respiratory Infection 12/13/2008 SHAW DO, CACHORRO K 787.03 Vomiting 12/13/2008 SHAW DO, CACHORRO K 787.91 Diarrhea 12/13/2008 SHAW DO, CACHORRO K 465.9 Upper Respiratory Infection 12/13/2008 SHAW DO, CACHORRO K 787.03 Vomiting 12/13/2008 SHAW DO, CACHORRO K 787.91 Diarrhea 12/13/2008 JOLLY DELANEY MD 465.9 Upper Respiratory Infection 12/13/2008 JOLLY DELANEY MD 787.03 Vomiting 12/13/2008 JOLLY DELANEY MD7.91 Diarrhea 12/13/2008 SHAW DO, CACHORRO K 465.9 Upper Respiratory Infection 12/13/2008 SHAW DO, CACHORRO K 787.03 Vomiting 12/13/2008 SHAW DO, CACHORRO K 787.91 Diarrhea 12/13/2008 SHAW DO, CACHORRO K 465.9 Upper Respiratory Infection 12/13/2008 SHAW DO, CACHORRO K 787.03 Vomiting 12/13/2008 SHAW DO, CACHORRO K 787.91 Diarrhea 12/13/2008 SHAW DO, CACHORRO K 465.9 Upper Respiratory Infection 12/13/2008 SHAW DO, CACHORRO K 787.03 Vomiting 12/13/2008 SHAW DO, CACHORRO K 787.91 Diarrhea 12/13/2008 VENUS PHD, JE Cabrera 465.9 Upper Respiratory Infection 12/13/2008 VENUS PHD, JE Cabrera 787.03 Vomiting 12/13/2008 VENUS PHD, JE Cabrera 787.91 Diarrhea 12/13/2008 VENUS PHD, JE Cabrera 465.9 Upper Respiratory Infection 12/13/2008 VENUS PHD, JE Cabrera 787.03 Vomiting 12/13/2008 VENUS PHD, JE Cabrera 787.91 Diarrhea 12/13/2008 SHAW DO, CACHORRO K 465.9 Upper Respiratory Infection 12/13/2008 SHAW DO, CACHORRO K 787.03 Vomiting 12/13/2008 HSAW DO, CACHORRO K 787.91 Diarrhea 12/13/2008 ARSEN CONTRACT NEGOTIATION SPECIALIST, SIMRAN 465.9 Upper Respiratory Infection 12/13/2008 ARSEN CONTRACT NEGOTIATION SPECIALIST, SIMRAN 787.03 Vomiting 12/13/2008 ARSEN CONTRACT NEGOTIATION SPECIALIST, SIMRAN 787.91 Diarrhea 12/13/2008 ARSEN CONTRACT NEGOTIATION SPECIALIST, SIMRAN 465.9 Upper Respiratory Infection 12/13/2008 ARSEN CONTRACT NEGOTIATION SPECIALIST, SIMRAN 787.03 Vomiting 12/13/2008 ARSEN CONTRACT NEGOTIATION SPECIALIST, SIMRAN 787.91 Diarrhea 12/13/2008 SHAW DO, CACHORRO K 465.9 Upper Respiratory Infection 12/13/2008 SHAW DO, CACHORRO K 787.03 Vomiting 12/13/2008 SHAW DO, CACHORRO K 787.91 Diarrhea 12/13/2008 CLARIBEL RAMEY MD 465.9 Upper Respiratory Infection 12/13/2008 CLARIBEL RAMEY MD N 787.03 Vomiting 12/13/2008 CLARIBEL RAMEY MD 787.91 Diarrhea 12/13/2008 ЕЛЕНАKARTHIK MUÑOZ STEPHANIE S 465.9 Upper Respiratory Infection 12/13/2008 ЕЛЕНА APRN, STEPHANIE S 787.03 Vomiting 12/13/2008 ЕЛЕНА MUÑOZ, STEPHANIE S 787.91 Diarrhea 12/13/2008 JOLLY DELANEY MD 465.9 Upper Respiratory Infection 12/13/2008 JOLLY DELANEY MD 787.03 Vomiting 12/13/2008 JOLLY DELANEY MD 787.91 Diarrhea 12/13/2008 ЕЛЕНА MUÑOZ, STEPHANIE S 465.9 Upper Respiratory Infection 12/13/2008 ЕЛЕНА MUÑOZ, STEPHANIE S 787.03 Vomiting 12/13/2008 ЕЛЕНА CONTRACT NEGOTIATION SPECIALIST, STEPHANIE S 787.91 Diarrhea 12/15/2008 SHAW DO CACHORRO K 307.47 SI DYSSOMNIA NOS 12/15/2008 SHAW DO CACHORRO K 311 MO DEPRESS NOS 12/15/2008 307.47 SI DYSSOMNIA NOS 12/15/2008 311 MO DEPRESS NOS 12/15/2008 SHAW DO, CACHORRO K 307.47 SI DYSSOMNIA NOS 12/15/2008 SHAW DO, CACHORRO K 311 MO DEPRESS NOS 12/15/2008 SHAW DO, CACHORRO K 307.47 SI DYSSOMNIA NOS 12/15/2008 SHAW DO, CACHORRO K 311 MO DEPRESS NOS 12/15/2008 307.47 SI DYSSOMNIA NOS 12/15/2008 311 MO DEPRESS NOS 12/15/2008 SHAW DO, CACHORRO K 307.47 SI DYSSOMNIA NOS 12/15/2008 SHAW DO, CACHORRO K 311 MO DEPRESS NOS 12/15/2008 307.47 SI DYSSOMNIA NOS 12/15/2008 311 MO DEPRESS NOS 12/15/2008 307.47 SI DYSSOMNIA NOS 12/15/2008 311 MO DEPRESS NOS 12/15/2008 307.47 SI DYSSOMNIA NOS 12/15/2008 311 MO DEPRESS NOS 12/15/2008 SHAW DO, CACHORRO K 307.47 SI DYSSOMNIA NOS 12/15/2008 SHAW DO, CACHORRO K 311 MO DEPRESS NOS 12/15/2008 SHAW DO, CACHORRO K 307.47 SI DYSSOMNIA NOS 12/15/2008 SHAW DO, CACHORRO K 311 MO DEPRESS NOS 12/15/2008 SHAW DO, CACHORRO K 307.47 SI DYSSOMNIA NOS 12/15/2008 SHAW DO, CACHORRO K 311 MO DEPRESS NOS 12/15/2008 SHAW DO, CACHORRO K 307.47 SI DYSSOMNIA NOS 12/15/2008 SHAW DO, CACHORRO K 311 MO DEPRESS NOS 12/15/2008 SHAW DO, CACHORRO K 307.47 SI DYSSOMNIA NOS 12/15/2008 SHAW DO, CACHORRO K 311 MO DEPRESS NOS 12/15/2008 SHAW DO, CACHORRO K 307.47 SI DYSSOMNIA NOS 12/15/2008 SHAW DO, CACHORRO K 311 MO DEPRESS NOS 12/15/2008 JOLLY DELANEY MD 307.47 SI DYSSOMNIA NOS 12/15/2008 JOLLY DELANEY MD 311 MO DEPRESS NOS 12/15/2008 SHAW DO, CACHORRO K 307.47 SI DYSSOMNIA NOS 12/15/2008 SHAW DO, CACHORRO K 311 MO DEPRESS NOS 12/15/2008 SHAW DO, CACHORRO K 307.47 SI DYSSOMNIA NOS 12/15/2008 VALERIA CASH, CACHORRO K 311 MO DEPRESS NOS 12/15/2008 VALERIA CASH, CACHORRO K 307.47 SI DYSSOMNIA NOS 12/15/2008 VALERIA CASH, CACHORRO K 311 MO DEPRESS NOS 12/15/2008 VENUS SUN, JE Cabrera 307.47 SI DYSSOMNIA NOS 12/15/2008 VENUS PHD, JE Cabrera 311 MO DEPRESS NOS 12/15/2008 VENUS SUN, JE Cabrera 307.47 SI DYSSOMNIA NOS 12/15/2008 VENUS PHD, JE Cabrera 311 MO DEPRESS NOS 12/15/2008 VALERIA CASH, CACHORRO K 307.47 SI DYSSOMNIA NOS 12/15/2008 VALERIA CASH, CACHORRO K 311 MO DEPRESS NOS 12/15/2008 ARSEN CONTRACT NEGOTIATION SPECIALIST, SIMRAN 307.47 SI DYSSOMNIA NOS 12/15/2008 ARSEN CONTRACT NEGOTIATION SPECIALIST, SIMRAN 311 MO DEPRESS NOS 12/15/2008 ARSEN CONTRACT NEGOTIATION SPECIALIST, SIMRAN 307.47 SI DYSSOMNIA NOS 12/15/2008 ARSEN CONTRACT NEGOTIATION SPECIALIST, SIMRAN 311 MO DEPRESS NOS 12/15/2008 VALERIA CASHSUMITA K 307.47 SI DYSSOMNIA NOS 12/15/2008 VALERIA CASH, CACHORRO K 311 MO DEPRESS NOS 12/15/2008 CLARIBEL RAMEY MD 307.47 SI DYSSOMNIA NOS 12/15/2008 CLARIBEL RAMEY MD 311 MO DEPRESS NOS 12/15/2008 STEPHANIE CHRISTIANSEN APRN S 307.47 SI DYSSOMNIA NOS 12/15/2008 ЕЛЕНА MUÑOZ STEPHANIE S 311 MO DEPRESS NOS 12/15/2008 JOLLY DELANEY MD 307.47 SI DYSSOMNIA NOS 12/15/2008 JOLLY DELANEY MD 311 MO DEPRESS NOS 12/15/2008 ЕЛЕНА MUÑOZ, STEPHANIE S 307.47 SI DYSSOMNIA NOS 12/15/2008 ЕЛЕНА MUÑOZ, STEPHANIE S 311 MO DEPRESS NOS 12/28/2008 CACHORRO SHAW DO K 250.02 DIABETES MELLITUS POORLY CONTROLLED 12/28/2008 CACHORRO SHAW DO 577.1 CHRONIC PANCREATITIS 12/28/2008 250.02 DIABETES MELLITUS POORLY CONTROLLED 12/28/2008 577.1 CHRONIC PANCREATITIS 12/28/2008 CACHORRO SHAW DO 250.02 DIABETES MELLITUS POORLY CONTROLLED 12/28/2008 SHAW DO, CACHORRO K 577.1 CHRONIC PANCREATITIS 12/28/2008 SHAW DO, CACHORRO K 250.02 DIABETES MELLITUS POORLY CONTROLLED 12/28/2008 SHAW DO, CACHORRO K 577.1 CHRONIC PANCREATITIS 12/28/2008 250.02 DIABETES MELLITUS POORLY CONTROLLED 12/28/2008 577.1 CHRONIC PANCREATITIS 12/28/2008 SHAW DO, CACHORRO K 250.02 DIABETES MELLITUS POORLY CONTROLLED 12/28/2008 SHAW DO, CACHORRO K 577.1 CHRONIC PANCREATITIS 12/28/2008 250.02 DIABETES MELLITUS POORLY CONTROLLED 12/28/2008 577.1 CHRONIC PANCREATITIS 12/28/2008 250.02 DIABETES MELLITUS POORLY CONTROLLED 12/28/2008 577.1 CHRONIC PANCREATITIS 12/28/2008 250.02 DIABETES MELLITUS POORLY CONTROLLED 12/28/2008 577.1 CHRONIC PANCREATITIS 12/28/2008 SHAW DO, CACHORRO K 250.02 DIABETES MELLITUS POORLY CONTROLLED 12/28/2008 SHAW DO, CACHORRO K 577.1 CHRONIC PANCREATITIS 12/28/2008 SHAW DO, CACHORRO K 250.02 DIABETES MELLITUS POORLY CONTROLLED 12/28/2008 SHAW DO, CACHORRO K 577.1 CHRONIC PANCREATITIS 12/28/2008 SHAW DO, CACHORRO K 250.02 DIABETES MELLITUS POORLY CONTROLLED 12/28/2008 SHAW DO, CACHORRO K 577.1 CHRONIC PANCREATITIS 12/28/2008 SHAW DO, CACHORRO K 250.02 DIABETES MELLITUS POORLY CONTROLLED 12/28/2008 SHAW DO, CACHORRO K 577.1 CHRONIC PANCREATITIS 12/28/2008 SHAW DO, CACHORRO K 250.02 DIABETES MELLITUS POORLY CONTROLLED 12/28/2008 SHAW DO, CACHORRO K 577.1 CHRONIC PANCREATITIS 12/28/2008 SHAW DO, CACHORRO K 250.02 DIABETES MELLITUS POORLY CONTROLLED 12/28/2008 SHAW DO, CACHORRO K 577.1 CHRONIC PANCREATITIS 12/28/2008 JOLLY DELANEY MD 250.02 DIABETES MELLITUS POORLY CONTROLLED 12/28/2008 JOLLY DELANEY MD 577.1 CHRONIC PANCREATITIS 12/28/2008 SHAW DO, CACHORRO K 250.02 DIABETES MELLITUS POORLY CONTROLLED 12/28/2008 SHAW DO, CACHORRO K 577.1 CHRONIC PANCREATITIS 12/28/2008 SHAW DO, CACHORRO K 250.02 DIABETES MELLITUS POORLY CONTROLLED 12/28/2008 SHAW DO, CACHORRO K 577.1 CHRONIC PANCREATITIS 12/28/2008 SHAW DO, CACHORRO K 250.02 DIABETES MELLITUS POORLY CONTROLLED 12/28/2008 CACHORRO SHAW DO K 577.1 CHRONIC PANCREATITIS 12/28/2008 VENUS PHD, JE Cabrera 250.02 DIABETES MELLITUS POORLY CONTROLLED 12/28/2008 VENUS SUN, JE Cabrera 577.1 CHRONIC PANCREATITIS 12/28/2008 VENUS SUN, JE Cabrera 250.02 DIABETES MELLITUS POORLY CONTROLLED 12/28/2008 VENUS SUN, JE Cabrera 577.1 CHRONIC PANCREATITIS 12/28/2008 CACHORRO SHAW DO K 250.02 DIABETES MELLITUS POORLY CONTROLLED 12/28/2008 SUMIT SHAW DOA K 577.1 CHRONIC PANCREATITIS 12/28/2008 ARSEN CONTRACT NEGOTIATION SPECIALIST, SIMRAN 250.02 DIABETES MELLITUS POORLY CONTROLLED 12/28/2008 ARSEN CONTRACT NEGOTIATION SPECIALIST, SIMRAN 577.1 CHRONIC PANCREATITIS 12/28/2008 ARSEN CONTRACT NEGOTIATION SPECIALIST, SIMRAN 250.02 DIABETES MELLITUS POORLY CONTROLLED 12/28/2008 ARSEN CONTRACT NEGOTIATION SPECIALIST, SIMRAN 577.1 CHRONIC PANCREATITIS 12/28/2008 CACHORRO SHAW DO K 250.02 DIABETES MELLITUS POORLY CONTROLLED 12/28/2008 CACHORRO SHAW DO K 577.1 CHRONIC PANCREATITIS 12/28/2008 CLARIBEL RAMEY MD 250.02 DIABETES MELLITUS POORLY CONTROLLED 12/28/2008 CLARIBEL RAMEY MD 577.1 CHRONIC PANCREATITIS 12/28/2008 PAULINA CHRISTIANSEN APRNA S 250.02 DIABETES MELLITUS POORLY CONTROLLED 12/28/2008 ЕЛЕНА MUÑOZ STEPHANIE S 577.1 CHRONIC PANCREATITIS 12/28/2008 JOLLY DELANEY MD 250.02 DIABETES MELLITUS POORLY CONTROLLED 12/28/2008 JOLLY DELANEY MD 577.1 CHRONIC PANCREATITIS 12/28/2008 ЕЛЕНА MUÑOZ STEPHANIE S 250.02 DIABETES MELLITUS POORLY CONTROLLED 12/28/2008 ЕЛЕНА MUÑOZ STEPHANIE S 577.1 CHRONIC PANCREATITIS 01/04/2009 CACHORRO SHAW DO K 788.7 Penile Discharge 01/04/2009 788.7 Penile Discharge 01/04/2009 CACHORRO SHAW DO K 788.7 Penile Discharge 01/04/2009 CACHORRO SHAW DO K 788.7 Penile Discharge 01/04/2009 788.7 Penile Discharge 01/04/2009 CACHORRO SHAW DO K 788.7 Penile Discharge 01/04/2009 788.7 Penile Discharge 01/04/2009 788.7 Penile Discharge 01/04/2009 788.7 Penile Discharge 01/04/2009 SHAW DO, CACHORRO K 788.7 Penile Discharge 01/04/2009 SHAW DO, CACHORRO K 788.7 Penile Discharge 01/04/2009 SHAW DO, CACHORRO K 788.7 Penile Discharge 01/04/2009 SHAW DO, CACHORRO K 788.7 Penile Discharge 01/04/2009 SHAW DO, CACHORRO K 788.7 Penile Discharge 01/04/2009 SHAW DO, CACHORRO K 788.7 Penile Discharge 01/04/2009 JOLLY DELANEY MD 788.7 Penile Discharge 01/04/2009 SHAW DO, CACHORRO K 788.7 Penile Discharge 01/04/2009 SHAW DO, CACHORRO K 788.7 Penile Discharge 01/04/2009 SHAW DO, CACHORRO K 788.7 Penile Discharge 01/04/2009 VENUS SUN, JE Cabrera 788.7 Penile Discharge 01/04/2009 VENUS SUN, JE Cabrera 788.7 Penile Discharge 01/04/2009 SHAW DO, CACHORRO K 788.7 Penile Discharge 01/04/2009 ARSEN CONTRACT NEGOTIATION SPECIALIST, SIMRAN 788.7 Penile Discharge 01/04/2009 ARSEN CONTRACT NEGOTIATION SPECIALIST, SIMRAN 788.7 Penile Discharge 01/04/2009 SHAW DO, CACHORRO K 788.7 Penile Discharge 01/04/2009 TANVIR JAMES, CLARIBEL Braun 788.7 Penile Discharge 01/04/2009 ЕЛЕНА MUÑOZ, STEPHANIE S 788.7 Penile Discharge 01/04/2009 JOLLY DELANEY MD 788.7 Penile Discharge 01/04/2009 ЕЛЕНА MUÑOZ STEPHANIE S 788.7 Penile Discharge 02/15/2009 SHAW DO, CACHORRO K 302.72 IMPOTENCE 02/15/2009 302.72 IMPOTENCE 02/15/2009 SHAW DO, CACHORRO K 302.72 IMPOTENCE 02/15/2009 SHAW DO, CACHORRO K 302.72 IMPOTENCE 02/15/2009 302.72 IMPOTENCE 02/15/2009 SHAW DO, CACHORRO K 302.72 IMPOTENCE 02/15/2009 302.72 IMPOTENCE 02/15/2009 302.72 IMPOTENCE 02/15/2009 302.72 IMPOTENCE 02/15/2009 SHAW DO, CACHORRO K 302.72 IMPOTENCE 02/15/2009 SHAW DO, CACHORRO K 302.72 IMPOTENCE 02/15/2009 SHAW DO, CACHORRO K 302.72 IMPOTENCE 02/15/2009 SHAW DO, CACHORRO K 302.72 IMPOTENCE 02/15/2009 SHAW DO, CACHORRO K 302.72 IMPOTENCE 02/15/2009 SHAW DO, CACHORRO K 302.72 IMPOTENCE 02/15/2009 JOLLY DELNAEY MD 302.72 IMPOTENCE 02/15/2009 SHAW DO, CACHORRO K 302.72 IMPOTENCE 02/15/2009 SHAW DO, CACHORRO K 302.72 IMPOTENCE 02/15/2009 SHAW DO, CACHORRO K 302.72 IMPOTENCE 02/15/2009 VENUS SUN, JE Cabrera 302.72 IMPOTENCE 02/15/2009 VENUS SUN, JE Cabrera 302.72 IMPOTENCE 02/15/2009 SHAW DO, CACHORRO K 302.72 IMPOTENCE 02/15/2009 ARSEN CONTRACT NEGOTIATION SPECIALIST, SIMRAN 302.72 IMPOTENCE 02/15/2009 ARSEN CONTRACT NEGOTIATION SPECIALIST, SIMRAN 302.72 IMPOTENCE 02/15/2009 SHAW DO, CACHORRO K 302.72 IMPOTENCE 02/15/2009 TANVIR JAMES, CLARIBEL Braun 302.72 IMPOTENCE 02/15/2009 PAULINA CHRISTIANSEN APRNA S 302.72 IMPOTENCE 02/15/2009 JOLLY DELANEY MD 302.72 IMPOTENCE 02/15/2009 STEPHANIE CHRISTIANSEN APRN S 302.72 IMPOTENCE 03/20/2009 SHAW DO, CACHORRO K 724.5 Backache Unspecified 03/20/2009 724.5 Backache Unspecified 03/20/2009 SHAW DO, CACHORRO K 724.5 Backache Unspecified 03/20/2009 SHAW DO, CACHORRO K 724.5 Backache Unspecified 03/20/2009 724.5 Backache Unspecified 03/20/2009 SHAW DO, CACHORRO K 724.5 Backache Unspecified 03/20/2009 724.5 Backache Unspecified 03/20/2009 724.5 Backache Unspecified 03/20/2009 724.5 Backache Unspecified 03/20/2009 SHAW DO, CACHORRO K 724.5 Backache Unspecified 03/20/2009 SHAW DO, CACHORRO K 724.5 Backache Unspecified 03/20/2009 SHAW DO, CACHORRO K 724.5 Backache Unspecified 03/20/2009 SHAW DO, CACHORRO K 724.5 Backache Unspecified 03/20/2009 SHAW DO, CACHORRO K 724.5 Backache Unspecified 03/20/2009 SHAW DO, CACHORRO K 724.5 Backache Unspecified 03/20/2009 JOLLY DELANEY MD 724.5 Backache Unspecified 03/20/2009 SHAW DO, CACHORRO K 724.5 Backache Unspecified 03/20/2009 SHAW DO, CACHORRO K 724.5 Backache Unspecified 03/20/2009 SHAW DO, CACHORRO K 724.5 Backache Unspecified 03/20/2009 VENUS SUN, JE Cabrera 724.5 Backache Unspecified 03/20/2009 VENUS SUN, JE Cabrera 724.5 Backache Unspecified 03/20/2009 SHAW DO, CACHORRO K 724.5 Backache Unspecified 03/20/2009 ARSENSIMRAN WREN APRN 724.5 Backache Unspecified 03/20/2009 ARSEN SIMRAN MUÑOZ 724.5 Backache Unspecified 03/20/2009 SHAW DO, CACHORRO K 724.5 Backache Unspecified 03/20/2009 TANVIR JAMES, CLARIBEL Braun 724.5 Backache Unspecified 03/20/2009 STEPHANIE CHRISTIANSEN APRN 724.5 Backache Unspecified 03/20/2009 JOLLY DELANEY MD 724.5 Backache Unspecified 03/20/2009 STEPHANIE CHRISTIANSEN APRN 724.5 Backache Unspecified 06/09/2009 SHAW DO, CACHORRO K 304.10 SA SEDATIVE DEP 06/09/2009 SHAW DO, CACHORRO K 316 PF PSYCHIC FACTORS MED COND 06/09/2009 304.10 SA SEDATIVE DEP 06/09/2009 316 PF PSYCHIC FACTORS MED COND 06/09/2009 SHAW DO, CACHORRO K 304.10 SA SEDATIVE DEP 06/09/2009 SHAW DO, CACHORRO K 316 PF PSYCHIC FACTORS MED COND 06/09/2009 SHAW DO, CACHORRO K 304.10 SA SEDATIVE DEP 06/09/2009 SHAW DO, CACHORRO K 316 PF PSYCHIC FACTORS MED COND 06/09/2009 304.10 SA SEDATIVE DEP 06/09/2009 316 PF PSYCHIC FACTORS MED COND 06/09/2009 SHAW DO, CACHORRO K 304.10 SA SEDATIVE DEP 06/09/2009 SHAW DO, CACHORRO K 316 PF PSYCHIC FACTORS MED COND 06/09/2009 304.10 SA SEDATIVE DEP 06/09/2009 316 PF PSYCHIC FACTORS MED COND 06/09/2009 304.10 SA SEDATIVE DEP 06/09/2009 316 PF PSYCHIC FACTORS MED COND 06/09/2009 304.10 SA SEDATIVE DEP 06/09/2009 316 PF PSYCHIC FACTORS MED COND 06/09/2009 SHAW DO, CACHORRO K 304.10 SA SEDATIVE DEP 06/09/2009 SHAW DO, CACHORRO K 316 PF PSYCHIC FACTORS MED COND 06/09/2009 SHAW DO, CACHORRO K 304.10 SA SEDATIVE DEP 06/09/2009 SHAW DO, CACHORRO K 316 PF PSYCHIC FACTORS MED COND 06/09/2009 SHAW DO, CACHORRO K 304.10 SA SEDATIVE DEP 06/09/2009 SHAW DO, CACHORRO K 316 PF PSYCHIC FACTORS MED COND 06/09/2009 SHAW DO, CACHORRO K 304.10 SA SEDATIVE DEP 06/09/2009 SHAW DO, CACHORRO K 316 PF PSYCHIC FACTORS MED COND 06/09/2009 SHAW DO, CACHORRO K 304.10 SA SEDATIVE DEP 06/09/2009 SHAW DO, CACHORRO K 316 PF PSYCHIC FACTORS MED COND 06/09/2009 SHAW DO, CACHORRO K 304.10 SA SEDATIVE DEP 06/09/2009 SHAW DO, CACHORRO K 316 PF PSYCHIC FACTORS MED COND 06/09/2009 JOLLY DELANEY MD 304.10 SA SEDATIVE DEP 06/09/2009 JOLLY DELANEY MD 316 PF PSYCHIC FACTORS MED COND 06/09/2009 SHAW DO, CACHORRO K 304.10 SA SEDATIVE DEP 06/09/2009 SHAW DO, CACHORRO K 316 PF PSYCHIC FACTORS MED COND 06/09/2009 SHAW DO, CACHORRO K 304.10 SA SEDATIVE DEP 06/09/2009 SHAW DO, CACHORRO K 316 PF PSYCHIC FACTORS MED COND 06/09/2009 SHAW DO, CACHORRO K 304.10 SA SEDATIVE DEP 06/09/2009 VALERIA CASH CACHORRO K 316 PF PSYCHIC FACTORS MED COND 06/09/2009 VENUS SUN, JE Cabrera 304.10 SA SEDATIVE DEP 06/09/2009 JE DONOVAN PHD 316 PF PSYCHIC FACTORS MED COND 06/09/2009 VENUS SUN, JE Cabrera 304.10 SA SEDATIVE DEP 06/09/2009 VENUS SUN, JE Cabrera 316 PF PSYCHIC FACTORS MED COND 06/09/2009 VALERIA CASH CACHORRO K 304.10 SA SEDATIVE DEP 06/09/2009 SHAW DO CACHORRO K 316 PF PSYCHIC FACTORS MED COND 06/09/2009 ARSEN CONTRACT NEGOTIATION SPECIALIST, SIMRAN 304.10 SA SEDATIVE DEP 06/09/2009 ARSEN CONTRACT NEGOTIATION SPECIALIST, SIMRAN 316 PF PSYCHIC FACTORS MED COND 06/09/2009 ARSEN CONTRACT NEGOTIATION SPECIALIST, SIMRAN 304.10 SA SEDATIVE DEP 06/09/2009 ARSEN CONTRACT NEGOTIATION SPECIALIST, SIMRAN 316 PF PSYCHIC FACTORS MED COND 06/09/2009 VALERIA CASH CACHORRO K 304.10 SA SEDATIVE DEP 06/09/2009 SUMIT SHAW DOA K 316 PF PSYCHIC FACTORS MED COND 06/09/2009 TANVIR JAMES, CLARIBEL Braun 304.10 SA SEDATIVE DEP 06/09/2009 CLARIBEL RAMEY MD N 316 PF PSYCHIC FACTORS MED COND 06/09/2009 PAULINA CHRISTIANSEN APRNA S 304.10 SA SEDATIVE DEP 06/09/2009 ALBERT CHRISTIANSEN APRNNDA S 316 PF PSYCHIC FACTORS MED COND 06/09/2009 JOLLY DELANEY MD 304.10 SA SEDATIVE DEP 06/09/2009 JOLLY DELANEY MD 316 PF PSYCHIC FACTORS MED COND 06/09/2009 PAULINA CHRISTIANSEN APRNA S 304.10 SA SEDATIVE DEP 06/09/2009 ALBERT CHRISTIANSEN APRNNDA S 316 PF PSYCHIC FACTORS MED COND 08/07/2009 VALERIA DOSUMITA K 244.9 HYPOTHYROIDISM 08/07/2009 VALERIA CASH CACHORRO K 304.00 SA OPIOID DEPENDENCE 08/07/2009 244.9 HYPOTHYROIDISM 08/07/2009 304.00 SA OPIOID DEPENDENCE 08/07/2009 VALERIA CASH CACHORRO K 244.9 HYPOTHYROIDISM 08/07/2009 SHAW DO CACHORRO K 304.00 SA OPIOID DEPENDENCE 08/07/2009 VALERIA CASH CACHORRO K 244.9 HYPOTHYROIDISM 08/07/2009 SHAW DO, CACHORRO K 304.00 SA OPIOID DEPENDENCE 08/07/2009 244.9 HYPOTHYROIDISM 08/07/2009 304.00 SA OPIOID DEPENDENCE 08/07/2009 SHAW DO, CACHORRO K 244.9 HYPOTHYROIDISM 08/07/2009 SHAW DO, CACHORRO K 304.00 SA OPIOID DEPENDENCE 08/07/2009 244.9 HYPOTHYROIDISM 08/07/2009 304.00 SA OPIOID DEPENDENCE 08/07/2009 244.9 HYPOTHYROIDISM 08/07/2009 304.00 SA OPIOID DEPENDENCE 08/07/2009 244.9 HYPOTHYROIDISM 08/07/2009 304.00 SA OPIOID DEPENDENCE 08/07/2009 SHAW DO, CACHORRO K 244.9 HYPOTHYROIDISM 08/07/2009 SHAW DO, CACHORRO K 304.00 SA OPIOID DEPENDENCE 08/07/2009 SHAW DO, CACHORRO K 244.9 HYPOTHYROIDISM 08/07/2009 SHAW DO, CACHORRO K 304.00 SA OPIOID DEPENDENCE 08/07/2009 SHAW DO, CACHORRO K 244.9 HYPOTHYROIDISM 08/07/2009 SHAW DO, CACHORRO K 304.00 SA OPIOID DEPENDENCE 08/07/2009 SHAW DO, CACHORRO K 244.9 HYPOTHYROIDISM 08/07/2009 SHAW DO, CACHORRO K 304.00 SA OPIOID DEPENDENCE 08/07/2009 SHAW DO, CACHORRO K 244.9 HYPOTHYROIDISM 08/07/2009 SHAW DO, CACHORRO K 304.00 SA OPIOID DEPENDENCE 08/07/2009 SHAW DO, CACHORRO K 244.9 HYPOTHYROIDISM 08/07/2009 SHAW DO, CACHORRO K 304.00 SA OPIOID DEPENDENCE 08/07/2009 JOLLY DELANEY MD 244.9 HYPOTHYROIDISM 08/07/2009 JOLLY DELANEY MD 304.00 SA OPIOID DEPENDENCE 08/07/2009 SHAW DO, CACHORRO K 244.9 HYPOTHYROIDISM 08/07/2009 SHAW DO, CACHORRO K 304.00 SA OPIOID DEPENDENCE 08/07/2009 SHAW DO, CACHORRO K 244.9 HYPOTHYROIDISM 08/07/2009 SHAW DO, CACHORRO K 304.00 SA OPIOID DEPENDENCE 08/07/2009 SHAW DO, CACHORRO K 244.9 HYPOTHYROIDISM 08/07/2009 SHAW DO, CACHORRO K 304.00 SA OPIOID DEPENDENCE 08/07/2009 VENUS SUN, JE Cabrera 244.9 HYPOTHYROIDISM 08/07/2009 VENUS SUN, JE Cabrera 304.00 SA OPIOID DEPENDENCE 08/07/2009 VENUS SUN, JE Cabrera 244.9 HYPOTHYROIDISM 08/07/2009 VENUS PHD, JE D 304.00 SA OPIOID DEPENDENCE 08/07/2009 SHAW DO, CACHORRO K 244.9 HYPOTHYROIDISM 08/07/2009 SHAW DO, CACHORRO K 304.00 SA OPIOID DEPENDENCE 08/07/2009 ARSEN CONTRACT NEGOTIATION SPECIALIST, SIMRAN 244.9 HYPOTHYROIDISM 08/07/2009 ARSEN CONTRACT NEGOTIATION SPECIALIST, SIMRAN 304.00 SA OPIOID DEPENDENCE 08/07/2009 ARSEN CONTRACT NEGOTIATION SPECIALIST, SIMRAN 244.9 HYPOTHYROIDISM 08/07/2009 ARSEN CONTRACT NEGOTIATION SPECIALIST, SIMRAN 304.00 SA OPIOID DEPENDENCE 08/07/2009 SHAW DO CACHORRO K 244.9 HYPOTHYROIDISM 08/07/2009 SHAW DO, CACHORRO K 304.00 SA OPIOID DEPENDENCE 08/07/2009 TANVIR JAMES, CLARIBEL N 244.9 HYPOTHYROIDISM 08/07/2009 TANVIR JAMES, CLARIBEL N 304.00 SA OPIOID DEPENDENCE 08/07/2009 ЕЛЕНА MANRIQUEN, STEPHANIE S 244.9 HYPOTHYROIDISM 08/07/2009 ЕЛЕНА CONTRACT NEGOTIATION SPECIALIST, STEPHANIE S 304.00 SA OPIOID DEPENDENCE 08/07/2009 JOLLY DELANEY MD 244.9 HYPOTHYROIDISM 08/07/2009 JOLLY DELANEY MD 304.00 SA OPIOID DEPENDENCE 08/07/2009 ЕЛЕНА MUÑOZ, STEPHANIE S 244.9 HYPOTHYROIDISM 08/07/2009 ЕЛЕНАPAZ MANRIQUEN, STEPHANIE S 304.00 SA OPIOID DEPENDENCE 08/16/2009 SUMIT SHAW DOA K 414.01 CAD 08/16/2009 VALERIA CASH CACHORRO K 443.9 PERIPHERAL ARTERIAL DISEASE 08/16/2009 VALERIA CASH CACHORRO K 458.0 Orthostatic Hypotension 08/16/2009 SUMIT SHAW DOA K 461.0 Acute Maxillary Sinusitis 08/16/2009 SUMIT SHAW DOA K 780.2 Syncope And Collapse 08/16/2009 414.01 CAD 08/16/2009 443.9 PERIPHERAL ARTERIAL DISEASE 08/16/2009 458.0 Orthostatic Hypotension 08/16/2009 461.0 Acute Maxillary Sinusitis 08/16/2009 780.2 Syncope And Collapse 08/16/2009 VALERIA CASH CACHORRO K 414.01 CAD 08/16/2009 VALERIA CASH CACHORRO K 443.9 PERIPHERAL ARTERIAL DISEASE 08/16/2009 VALERIA CASH CACHORRO K 458.0 Orthostatic Hypotension 08/16/2009 VALERIA CASH CACHORRO K 461.0 Acute Maxillary Sinusitis 08/16/2009 SHAW DO, CACHORRO K 780.2 Syncope And Collapse 08/16/2009 SHAW DO, CACHORRO K 414.01 CAD 08/16/2009 SHAW DO, CACHORRO K 443.9 PERIPHERAL ARTERIAL DISEASE 08/16/2009 SHAW DO, CACHORRO K 458.0 Orthostatic Hypotension 08/16/2009 SHAW DO, CACHORRO K 461.0 Acute Maxillary Sinusitis 08/16/2009 SHAW DO, CACHORRO K 780.2 Syncope And Collapse 08/16/2009 414.01 CAD 08/16/2009 443.9 PERIPHERAL ARTERIAL DISEASE 08/16/2009 458.0 Orthostatic Hypotension 08/16/2009 461.0 Acute Maxillary Sinusitis 08/16/2009 780.2 Syncope And Collapse 08/16/2009 SHAW DO, CACHORRO K 414.01 CAD 08/16/2009 SHAW DO, CACHORRO K 443.9 PERIPHERAL ARTERIAL DISEASE 08/16/2009 SHAW DO, CACHORRO K 458.0 Orthostatic Hypotension 08/16/2009 SHAW DO, CACHORRO K 461.0 Acute Maxillary Sinusitis 08/16/2009 SHAW DO, CACHORRO K 780.2 Syncope And Collapse 08/16/2009 414.01 CAD 08/16/2009 443.9 PERIPHERAL ARTERIAL DISEASE 08/16/2009 458.0 Orthostatic Hypotension 08/16/2009 461.0 Acute Maxillary Sinusitis 08/16/2009 780.2 Syncope And Collapse 08/16/2009 414.01 CAD 08/16/2009 443.9 PERIPHERAL ARTERIAL DISEASE 08/16/2009 458.0 Orthostatic Hypotension 08/16/2009 461.0 Acute Maxillary Sinusitis 08/16/2009 780.2 Syncope And Collapse 08/16/2009 414.01 CAD 08/16/2009 443.9 PERIPHERAL ARTERIAL DISEASE 08/16/2009 458.0 Orthostatic Hypotension 08/16/2009 461.0 Acute Maxillary Sinusitis 08/16/2009 780.2 Syncope And Collapse 08/16/2009 SHAW DO, CACHORRO K 414.01 CAD 08/16/2009 SHAW DO, CACHORRO K 443.9 PERIPHERAL ARTERIAL DISEASE 08/16/2009 SHAW DO, CACHORRO K 458.0 Orthostatic Hypotension 08/16/2009 SHAW DO, CACHORRO K 461.0 Acute Maxillary Sinusitis 08/16/2009 SHAW DO, CACHORRO K 780.2 Syncope And Collapse 08/16/2009 SHAW DO, CACHORRO K 414.01 CAD 08/16/2009 SHAW DO, CACHORRO K 443.9 PERIPHERAL ARTERIAL DISEASE 08/16/2009 SHAW DO, CACHORRO K 458.0 Orthostatic Hypotension 08/16/2009 SHAW DO, CACHORRO K 461.0 Acute Maxillary Sinusitis 08/16/2009 SHAW DO, CACHORRO K 780.2 Syncope And Collapse 08/16/2009 SHAW DO, CACHORRO K 414.01 CAD 08/16/2009 SHAW DO, CACHORRO K 443.9 PERIPHERAL ARTERIAL DISEASE 08/16/2009 SHAW DO, CACHORRO K 458.0 Orthostatic Hypotension 08/16/2009 SHAW DO, CACHORRO K 461.0 Acute Maxillary Sinusitis 08/16/2009 SHAW DO, CACHORRO K 780.2 Syncope And Collapse 08/16/2009 SHAW DO, CACHORRO K 414.01 CAD 08/16/2009 SHAW DO, CACHORRO K 443.9 PERIPHERAL ARTERIAL DISEASE 08/16/2009 SHAW DO, CACHORRO K 458.0 Orthostatic Hypotension 08/16/2009 SHAW DO, CACHORRO K 461.0 Acute Maxillary Sinusitis 08/16/2009 SHAW DO, CACHORRO K 780.2 Syncope And Collapse 08/16/2009 SHAW DO, CACHORRO K 414.01 CAD 08/16/2009 SHAW DO, CACHORRO K 443.9 PERIPHERAL ARTERIAL DISEASE 08/16/2009 SHAW DO, CACHORRO K 458.0 Orthostatic Hypotension 08/16/2009 SHAW DO, CACHORRO K 461.0 Acute Maxillary Sinusitis 08/16/2009 SHAW DO, CACHORRO K 780.2 Syncope And Collapse 08/16/2009 SHAW DO, CACHORRO K 414.01 CAD 08/16/2009 SHAW DO, CACHORRO K 443.9 PERIPHERAL ARTERIAL DISEASE 08/16/2009 SHAW DO, CACHORRO K 458.0 Orthostatic Hypotension 08/16/2009 SHAW DO, CACHORRO K 461.0 Acute Maxillary Sinusitis 08/16/2009 SHAW DO, CACHORRO K 780.2 Syncope And Collapse 08/16/2009 ELAINA JAMES, JOLLY 414.01 CAD 08/16/2009 ELAINA JAMES, JOLLY 443.9 PERIPHERAL ARTERIAL DISEASE 08/16/2009 ELAINA JAMES, JOLLY 458.0 Orthostatic Hypotension 08/16/2009 ELAINA JAMES, JOLLY 461.0 Acute Maxillary Sinusitis 08/16/2009 JOLLY DELANEY MD 780.2 Syncope And Collapse 08/16/2009 SHAW DO, CACHORRO K 414.01 CAD 08/16/2009 SHAW DO, CACHORRO K 443.9 PERIPHERAL ARTERIAL DISEASE 08/16/2009 SHAW DO, CACHORRO K 458.0 Orthostatic Hypotension 08/16/2009 SHAW DO, CACHORRO K 461.0 Acute Maxillary Sinusitis 08/16/2009 SHAW DO, CACHORRO K 780.2 Syncope And Collapse 08/16/2009 SAHW DO, CACHORRO K 414.01 CAD 08/16/2009 SHAW DO, CACHORRO K 443.9 PERIPHERAL ARTERIAL DISEASE 08/16/2009 SHAW DO, CACHORRO K 458.0 Orthostatic Hypotension 08/16/2009 SHAW DO, CACHORRO K 461.0 Acute Maxillary Sinusitis 08/16/2009 SHAW DO, CACHORRO K 780.2 Syncope And Collapse 08/16/2009 SHAW DO, CACHORRO K 414.01 CAD 08/16/2009 SHAW DO, CACHORRO K 443.9 PERIPHERAL ARTERIAL DISEASE 08/16/2009 SHAW DO, CACHORRO K 458.0 Orthostatic Hypotension 08/16/2009 SHAW DO, CACHORRO K 461.0 Acute Maxillary Sinusitis 08/16/2009 SHAW DO, CACHORRO K 780.2 Syncope And Collapse 08/16/2009 JE DONOVAN PHD 414.01 CAD 08/16/2009 JE DONOVAN PHD 443.9 PERIPHERAL ARTERIAL DISEASE 08/16/2009 JE DONOVAN PHD 458.0 Orthostatic Hypotension 08/16/2009 JE DONOVAN PHD 461.0 Acute Maxillary Sinusitis 08/16/2009 JE DONOVAN PHD 780.2 Syncope And Collapse 08/16/2009 JE DONOVAN PHD 414.01 CAD 08/16/2009 JE DONOVAN PHD 443.9 PERIPHERAL ARTERIAL DISEASE 08/16/2009 JE DONOVAN PHD 458.0 Orthostatic Hypotension 08/16/2009 JE DONOVAN PHD 461.0 Acute Maxillary Sinusitis 08/16/2009 JE DONOVAN PHD 780.2 Syncope And Collapse 08/16/2009 SHAW DO, CACHORRO K 414.01 CAD 08/16/2009 SHAW DO, CACHORRO K 443.9 PERIPHERAL ARTERIAL DISEASE 08/16/2009 SHAW DO, CACHORRO K 458.0 Orthostatic Hypotension 08/16/2009 SHAW DO, CACHORRO K 461.0 Acute Maxillary Sinusitis 08/16/2009 SHAW DO, CACHORRO K 780.2 Syncope And Collapse 08/16/2009 ARSEN CONTRACT NEGOTIATION SPECIALIST, SIMRAN 414.01 CAD 08/16/2009 ARSEN CONTRACT NEGOTIATION SPECIALIST, SIMRAN 443.9 PERIPHERAL ARTERIAL DISEASE 08/16/2009 ARSEN CONTRACT NEGOTIATION SPECIALIST, SIMRAN 458.0 Orthostatic Hypotension 08/16/2009 ARSEN CONTRACT NEGOTIATION SPECIALIST, SIMRAN 461.0 Acute Maxillary Sinusitis 08/16/2009 ARSEN CONTRACT NEGOTIATION SPECIALIST, SIMRAN 780.2 Syncope And Collapse 08/16/2009 ARSEN CONTRACT NEGOTIATION SPECIALIST, SIMRAN 414.01 CAD 08/16/2009 ARSEN CONTRACT NEGOTIATION SPECIALIST, SIMRAN 443.9 PERIPHERAL ARTERIAL DISEASE 08/16/2009 ARSEN CONTRACT NEGOTIATION SPECIALIST, SIMRAN 458.0 Orthostatic Hypotension 08/16/2009 ARSEN CONTRACT NEGOTIATION SPECIALIST, SIMRAN 461.0 Acute Maxillary Sinusitis 08/16/2009 ARSEN CONTRACT NEGOTIATION SPECIALIST, SIMRAN 780.2 Syncope And Collapse 08/16/2009 SHAW DO, CACHORRO K 414.01 CAD 08/16/2009 VALERIA CASH, CACHORRO K 443.9 PERIPHERAL ARTERIAL DISEASE 08/16/2009 SHAW DO, CACHORRO K 458.0 Orthostatic Hypotension 08/16/2009 SHAW DO, CACHORRO K 461.0 Acute Maxillary Sinusitis 08/16/2009 SHAW DO, CACHORRO K 780.2 Syncope And Collapse 08/16/2009 CLARIBEL RAMEY MD N 414.01 CAD 08/16/2009 CLARIBEL RAMEY MD 443.9 PERIPHERAL ARTERIAL DISEASE 08/16/2009 CLARIBEL RAMEY MD N 458.0 Orthostatic Hypotension 08/16/2009 CLARIBEL RAMEY MD N 461.0 Acute Maxillary Sinusitis 08/16/2009 CLARIBEL RAMEY MD N 780.2 Syncope And Collapse 08/16/2009 ЕЛЕНА CONTRACT NEGOTIATION SPECIALIST, STEPHANIE S 414.01 CAD 08/16/2009 ЕЛЕНА CONTRACT NEGOTIATION SPECIALIST, STEPHANIE S 443.9 PERIPHERAL ARTERIAL DISEASE 08/16/2009 ЕЛЕНА CONTRACT NEGOTIATION SPECIALIST, STEPHANIE S 458.0 Orthostatic Hypotension 08/16/2009 ЕЛЕНА CONTRACT NEGOTIATION SPECIALIST, STEPHANIE S 461.0 Acute Maxillary Sinusitis 08/16/2009 ЕЛЕНА CONTRACT NEGOTIATION SPECIALIST, STEPHANIE S 780.2 Syncope And Collapse 08/16/2009 JOLLY DELANEY MD 414.01 CAD 08/16/2009 ELAINA JAMES, JOLLY 443.9 PERIPHERAL ARTERIAL DISEASE 08/16/2009 ELAINA JAMES, JOLLY 458.0 Orthostatic Hypotension 08/16/2009 ELAINA JAMES, JOLLY 461.0 Acute Maxillary Sinusitis 08/16/2009 JOLLY DELANEY MD 780.2 Syncope And Collapse 08/16/2009 ЕЛЕНА CONTRACT NEGOTIATION SPECIALIST, STEPHANIE S 414.01 CAD 08/16/2009 ЕЛЕНА CONTRACT NEGOTIATION SPECIALIST, STEPHANIE S 443.9 PERIPHERAL ARTERIAL DISEASE 08/16/2009 ЕЛЕНА CONTRACT NEGOTIATION SPECIALIST, STEPHANIE S 458.0 Orthostatic Hypotension 08/16/2009 ЕЛЕНА CONTRACT NEGOTIATION SPECIALIST, STEPHANIE S 461.0 Acute Maxillary Sinusitis 08/16/2009 ЕЛЕНА CONTRACT NEGOTIATION SPECIALIST, STEPHANIE S 780.2 Syncope And Collapse 10/02/2009 SHAW DO CACHORRO K 250.00 Diabetes Ii Controlled 10/02/2009 250.00 Diabetes Ii Controlled 10/02/2009 VALERIA CASH CACHORRO K 250.00 Diabetes Ii Controlled 10/02/2009 SHAW DO, CACHORRO K 250.00 Diabetes Ii Controlled 10/02/2009 250.00 Diabetes Ii Controlled 10/02/2009 SHAW DO, CACHORRO K 250.00 Diabetes Ii Controlled 10/02/2009 250.00 Diabetes Ii Controlled 10/02/2009 250.00 Diabetes Ii Controlled 10/02/2009 250.00 Diabetes Ii Controlled 10/02/2009 SHAW DO CACHORRO K 250.00 Diabetes Ii Controlled 10/02/2009 SHAW DO CACHORRO K 250.00 Diabetes Ii Controlled 10/02/2009 VALERIA CASH CACHORRO K 250.00 Diabetes Ii Controlled 10/02/2009 SHAW DO, CACHORRO K 250.00 Diabetes Ii Controlled 10/02/2009 SHAW DO, CACHORRO K 250.00 Diabetes Ii Controlled 10/02/2009 SHAW DO CACHORRO K 250.00 Diabetes Ii Controlled 10/02/2009 JOLLY DELANEY MD 250.00 Diabetes Ii Controlled 10/02/2009 SHAW DO, CACHORRO K 250.00 Diabetes Ii Controlled 10/02/2009 SHAW DO CACHORRO K 250.00 Diabetes Ii Controlled 10/02/2009 SHAW DO CACHORRO K 250.00 Diabetes Ii Controlled 10/02/2009 VENUS SUN, JE Cabrera 250.00 Diabetes Ii Controlled 10/02/2009 VENUS PHD, JE Cabrera 250.00 Diabetes Ii Controlled 10/02/2009 SHAW DO CACHORRO K 250.00 Diabetes Ii Controlled 10/02/2009 SIMRAN LEGER APRN 250.00 Diabetes Ii Controlled 10/02/2009 ARSEN MUÑOZ, SIMRAN 250.00 Diabetes Ii Controlled 10/02/2009 SHAW DO, CACHORRO K 250.00 Diabetes Ii Controlled 10/02/2009 TANVIR JAMES, CLARIBEL Braun 250.00 Diabetes Ii Controlled 10/02/2009 STEPHANIE CHRISTIANSEN APRN S 250.00 Diabetes Ii Controlled 10/02/2009 ELAINA JAMES, JOLLY 250.00 Diabetes Ii Controlled 10/02/2009 ЕЛЕНА MUÑOZ, STEPHANIE S 250.00 Diabetes Ii Controlled 12/06/2009 SHAW DO, CACHORRO K 250.60 DIABETES MELLITUS DIABETIC PERIPHERAL NEUROPATHY 12/06/2009 SHAW DO, CACHORRO K 272.4 HYPERLIPIDEMIA HYPERLIPOPROTEINEMIAS (Old Classification) 12/06/2009 250.60 DIABETES MELLITUS DIABETIC PERIPHERAL NEUROPATHY 12/06/2009 272.4 HYPERLIPIDEMIA HYPERLIPOPROTEINEMIAS (Old Classification) 12/06/2009 SHAW DO, CACHORRO K 250.60 DIABETES MELLITUS DIABETIC PERIPHERAL NEUROPATHY 12/06/2009 SHAW DO, CACHORRO K 272.4 HYPERLIPIDEMIA HYPERLIPOPROTEINEMIAS (Old Classification) 12/06/2009 SHAW DO, CACHORRO K 250.60 DIABETES MELLITUS DIABETIC PERIPHERAL NEUROPATHY 12/06/2009 SHAW DO, CACHORRO K 272.4 HYPERLIPIDEMIA HYPERLIPOPROTEINEMIAS (Old Classification) 12/06/2009 250.60 DIABETES MELLITUS DIABETIC PERIPHERAL NEUROPATHY 12/06/2009 272.4 HYPERLIPIDEMIA HYPERLIPOPROTEINEMIAS (Old Classification) 12/06/2009 SHAW DO, CACHORRO K 250.60 DIABETES MELLITUS DIABETIC PERIPHERAL NEUROPATHY 12/06/2009 SHAW DO, CACHORRO K 272.4 HYPERLIPIDEMIA HYPERLIPOPROTEINEMIAS (Old Classification) 12/06/2009 250.60 DIABETES MELLITUS DIABETIC PERIPHERAL NEUROPATHY 12/06/2009 272.4 HYPERLIPIDEMIA HYPERLIPOPROTEINEMIAS (Old Classification) 12/06/2009 250.60 DIABETES MELLITUS DIABETIC PERIPHERAL NEUROPATHY 12/06/2009 272.4 HYPERLIPIDEMIA HYPERLIPOPROTEINEMIAS (Old Classification) 12/06/2009 250.60 DIABETES MELLITUS DIABETIC PERIPHERAL NEUROPATHY 12/06/2009 272.4 HYPERLIPIDEMIA HYPERLIPOPROTEINEMIAS (Old Classification) 12/06/2009 SHAW DO, CACHORRO K 250.60 DIABETES MELLITUS DIABETIC PERIPHERAL NEUROPATHY 12/06/2009 SHAW DO, CACHORRO K 272.4 HYPERLIPIDEMIA HYPERLIPOPROTEINEMIAS (Old Classification) 12/06/2009 SHAW DO, CACHORRO K 250.60 DIABETES MELLITUS DIABETIC PERIPHERAL NEUROPATHY 12/06/2009 SHAW DO, CACHORRO K 272.4 HYPERLIPIDEMIA HYPERLIPOPROTEINEMIAS (Old Classification) 12/06/2009 SHAW DO, CACHORRO K 250.60 DIABETES MELLITUS DIABETIC PERIPHERAL NEUROPATHY 12/06/2009 SHAW DO, CACHORRO K 272.4 HYPERLIPIDEMIA HYPERLIPOPROTEINEMIAS (Old Classification) 12/06/2009 SHAW DO, CACHORRO K 250.60 DIABETES MELLITUS DIABETIC PERIPHERAL NEUROPATHY 12/06/2009 SHAW DO, CACHORRO K 272.4 HYPERLIPIDEMIA HYPERLIPOPROTEINEMIAS (Old Classification) 12/06/2009 SHAW DO, CACHORRO K 250.60 DIABETES MELLITUS DIABETIC PERIPHERAL NEUROPATHY 12/06/2009 SHAW DO, CACHORRO K 272.4 HYPERLIPIDEMIA HYPERLIPOPROTEINEMIAS (Old Classification) 12/06/2009 SHAW DO, CACHORRO K 250.60 DIABETES MELLITUS DIABETIC PERIPHERAL NEUROPATHY 12/06/2009 SHAW DO, CACHORRO K 272.4 HYPERLIPIDEMIA HYPERLIPOPROTEINEMIAS (Old Classification) 12/06/2009 JOLLY DELANEY MD 250.60 DIABETES MELLITUS DIABETIC PERIPHERAL NEUROPATHY 12/06/2009 JOLLY DELANEY MD 272.4 HYPERLIPIDEMIA HYPERLIPOPROTEINEMIAS (Old Classification) 12/06/2009 SHAW DO, CACHORRO K 250.60 DIABETES MELLITUS DIABETIC PERIPHERAL NEUROPATHY 12/06/2009 SHAW DO, CACHORRO K 272.4 HYPERLIPIDEMIA HYPERLIPOPROTEINEMIAS (Old Classification) 12/06/2009 SHAW DO, CACHORRO K 250.60 DIABETES MELLITUS DIABETIC PERIPHERAL NEUROPATHY 12/06/2009 SHAW DO, CACHORRO K 272.4 HYPERLIPIDEMIA HYPERLIPOPROTEINEMIAS (Old Classification) 12/06/2009 SHAW DO, CACHORRO K 250.60 DIABETES MELLITUS DIABETIC PERIPHERAL NEUROPATHY 12/06/2009 SHAW DO, CACHORRO K 272.4 HYPERLIPIDEMIA HYPERLIPOPROTEINEMIAS (Old Classification) 12/06/2009 JE DONOVAN PHD 250.60 DIABETES MELLITUS DIABETIC PERIPHERAL NEUROPATHY 12/06/2009 JE DONOVAN PHD 272.4 HYPERLIPIDEMIA HYPERLIPOPROTEINEMIAS ( Old Classification) 12/06/2009 JE DONOVAN PHD 250.60 DIABETES MELLITUS DIABETIC PERIPHERAL NEUROPATHY 12/06/2009 JE DONOVAN PHD 272.4 HYPERLIPIDEMIA HYPERLIPOPROTEINEMIAS ( Old Classification) 12/06/2009 SHAW DO, CACHORRO K 250.60 DIABETES MELLITUS DIABETIC PERIPHERAL NEUROPATHY 12/06/2009 SHAW DO, CACHORRO K 272.4 HYPERLIPIDEMIA HYPERLIPOPROTEINEMIAS (Old Classification) 12/06/2009 ARSEN CONTRACT NEGOTIATION SPECIALIST, SIMRAN 250.60 DIABETES MELLITUS DIABETIC PERIPHERAL NEUROPATHY 12/06/2009 ARSEN CONTRACT NEGOTIATION SPECIALIST, SIMRAN 272.4 HYPERLIPIDEMIA HYPERLIPOPROTEINEMIAS (Old Classification) 12/06/2009 ARSEN CONTRACT NEGOTIATION SPECIALIST, SIMRAN 250.60 DIABETES MELLITUS DIABETIC PERIPHERAL NEUROPATHY 12/06/2009 ARSEN CONTRACT NEGOTIATION SPECIALIST, SIMRAN 272.4 HYPERLIPIDEMIA HYPERLIPOPROTEINEMIAS (Old Classification) 12/06/2009 SHAW DO, CACHORRO K 250.60 DIABETES MELLITUS DIABETIC PERIPHERAL NEUROPATHY 12/06/2009 SHAW DO, CACHORRO K 272.4 HYPERLIPIDEMIA HYPERLIPOPROTEINEMIAS (Old Classification) 12/06/2009 CLARIBEL RAMEY MD 250.60 DIABETES MELLITUS DIABETIC PERIPHERAL NEUROPATHY 12/06/2009 CLARIBEL RAMEY MD 272.4 HYPERLIPIDEMIA HYPERLIPOPROTEINEMIAS (Old Classification) 12/06/2009 ЕЛЕНА MUÑOZ, STEPHANIE S 250.60 DIABETES MELLITUS DIABETIC PERIPHERAL NEUROPATHY 12/06/2009 ЕЛЕНА MUÑOZ, STEPHANIE S 272.4 HYPERLIPIDEMIA HYPERLIPOPROTEINEMIAS ( Old Classification) 12/06/2009 JOLLY DELANEY MD 250.60 DIABETES MELLITUS DIABETIC PERIPHERAL NEUROPATHY 12/06/2009 JOLLY DELANEY MD 272.4 HYPERLIPIDEMIA HYPERLIPOPROTEINEMIAS (Old Classification) 12/06/2009 ЕЛЕНА MUÑOZ, STEPHANIE S 250.60 DIABETES MELLITUS DIABETIC PERIPHERAL NEUROPATHY 12/06/2009 ЕЛЕНА MUÑOZ, STEPHANIE S 272.4 HYPERLIPIDEMIA HYPERLIPOPROTEINEMIAS ( Old Classification) 02/01/2010 SHAW DO, CACHORRO K 296.90 UNSPECIFIED EPISODIC MOOD DISORDER 02/01/2010 296.90 UNSPECIFIED EPISODIC MOOD DISORDER 02/01/2010 SHAW DO, CACHORRO K 296.90 Unspecified Episodic Mood Disorder 02/01/2010 SHAW DO, CACHORRO K 296.90 Unspecified Episodic Mood Disorder 02/01/2010 296.90 Unspecified Episodic Mood Disorder 02/01/2010 SHAW DO, CACHORRO K 296.90 Unspecified Episodic Mood Disorder 02/01/2010 296.90 Unspecified Episodic Mood Disorder 02/01/2010 296.90 Unspecified Episodic Mood Disorder 02/01/2010 296.90 Unspecified Episodic Mood Disorder 02/01/2010 SHAW DO, CACHORRO K 296.90 Unspecified Episodic Mood Disorder 02/01/2010 SHAW DO, CACHORRO K 296.90 Unspecified Episodic Mood Disorder 02/01/2010 SHAW DO, CACHORRO K 296.90 Unspecified Episodic Mood Disorder 02/01/2010 SHAW DO, CACHORRO K 296.90 Unspecified Episodic Mood Disorder 02/01/2010 SHAW DO, CACHORRO K 296.90 Unspecified Episodic Mood Disorder 02/01/2010 SHAW DO, CACHORRO K 296.90 Unspecified Episodic Mood Disorder 02/01/2010 JOLLY DELANEY MD 296.90 Unspecified Episodic Mood Disorder 02/01/2010 SHAW DO, CACHORRO K 296.90 Unspecified Episodic Mood Disorder 02/01/2010 SHAW DO, CACHORRO K 296.90 Unspecified Episodic Mood Disorder 02/01/2010 SHAW DO, CACHORRO K 296.90 Unspecified Episodic Mood Disorder 02/01/2010 VENUS SUN, JE Cabrera 296.90 Unspecified Episodic Mood Disorder 02/01/2010 JE DONOVAN PHD 296.90 Unspecified Episodic Mood Disorder 02/01/2010 SHAW DO, CACHORRO K 296.90 Unspecified Episodic Mood Disorder 02/01/2010 ARSEN CONTRACT NEGOTIATION SPECIALIST, SIMRAN 296.90 Unspecified Episodic Mood Disorder 02/01/2010 ARSEN CONTRACT NEGOTIATION SPECIALIST, SIMRAN 296.90 Unspecified Episodic Mood Disorder 02/01/2010 SHAW DO, CACHORRO K 296.90 Unspecified Episodic Mood Disorder 02/01/2010 CLARIBEL RAMEY MD 296.90 Unspecified Episodic Mood Disorder 02/01/2010 ЕЛЕНА MUÑOZ STEPHANIE S 296.90 Unspecified Episodic Mood Disorder 02/01/2010 JOLLY DELANEY MD 296.90 Unspecified Episodic Mood Disorder 02/01/2010 ЕЛЕНА MUÑOZ, STEPHANIE S 296.90 Unspecified Episodic Mood Disorder 02/07/2010 SHAW DO, CACHORRO K 789.00 ABDOMINAL PAIN UNSPECIFIED SITE 02/07/2010 789.00 ABDOMINAL PAIN UNSPECIFIED SITE 02/07/2010 SHAW DO, CACHORRO K 789.00 Abdominal Pain Unspecified Site 02/07/2010 SHAW DO, CACHORRO K 789.00 Abdominal Pain Unspecified Site 02/07/2010 789.00 Abdominal Pain Unspecified Site 02/07/2010 SHAW DO, CACHORRO K 789.00 Abdominal Pain Unspecified Site 02/07/2010 789.00 Abdominal Pain Unspecified Site 02/07/2010 789.00 Abdominal Pain Unspecified Site 02/07/2010 789.00 Abdominal Pain Unspecified Site 02/07/2010 SHAW DO, CACHORRO K 789.00 Abdominal Pain Unspecified Site 02/07/2010 SHAW DO, CACHORRO K 789.00 Abdominal Pain Unspecified Site 02/07/2010 SHAW DO, CACHORRO K 789.00 Abdominal Pain Unspecified Site 02/07/2010 SHAW DO, CACHORRO K 789.00 Abdominal Pain Unspecified Site 02/07/2010 SHAW DO, CACHORRO K 789.00 Abdominal Pain Unspecified Site 02/07/2010 SHAW DO, CACHORRO K 789.00 Abdominal Pain Unspecified Site 02/07/2010 JOLLY DELANEY MD 789.00 Abdominal Pain Unspecified Site 02/07/2010 SHAW DO, CACHORRO K 789.00 Abdominal Pain Unspecified Site 02/07/2010 SHAW DO, CACHORRO K 789.00 Abdominal Pain Unspecified Site 02/07/2010 SHAW DO, CACHORRO K 789.00 Abdominal Pain Unspecified Site 02/07/2010 VENUS SUN, JE Cabrera 789.00 Abdominal Pain Unspecified Site 02/07/2010 VENUS SUN, JE Cabrera 789.00 Abdominal Pain Unspecified Site 02/07/2010 SHAW DO, CACHORRO K 789.00 Abdominal Pain Unspecified Site 02/07/2010 SIMRAN LEGER APRN 789.00 Abdominal Pain Unspecified Site 02/07/2010 SIMRAN LEGER APRN 789.00 Abdominal Pain Unspecified Site 02/07/2010 SHAW DO, CACHORRO K 789.00 Abdominal Pain Unspecified Site 02/07/2010 TANVIR JAMES, CLARIBEL Braun 789.00 Abdominal Pain Unspecified Site 02/07/2010 STEPHANIE CHRISTIANSEN APRN S 789.00 Abdominal Pain Unspecified Site 02/07/2010 JOLLY DELANEY MD 789.00 Abdominal Pain Unspecified Site 02/07/2010 STEPHANIE CHRISTIANSEN APRN S 789.00 Abdominal Pain Unspecified Site 02/16/2010 Ot 802.0 02/16/2010 Ot 920 02/16/2010 Ot 959.09 02/16/2010 Ot E000.8 02/16/2010 Ot E001.0 02/16/2010 Ot E849.0 02/16/2010 Ot E888.9 04/16/2010 SHAW DO, CACHORRO K 112.0 CANDIDIASIS OF MOUTH 04/16/2010 112.0 CANDIDIASIS OF MOUTH 04/16/2010 SHAW DO, CACHORRO K 112.0 Candidiasis Of Mouth 04/16/2010 SHAW DO, CACHORRO K 112.0 Candidiasis Of Mouth 04/16/2010 112.0 Candidiasis Of Mouth 04/16/2010 SHAW DO, CACHORRO K 112.0 Candidiasis Of Mouth 04/16/2010 112.0 Candidiasis Of Mouth 04/16/2010 112.0 Candidiasis Of Mouth 04/16/2010 112.0 Candidiasis Of Mouth 04/16/2010 SHAW DO, CACHORRO K 112.0 Candidiasis Of Mouth 04/16/2010 SHAW DO, CACHORRO K 112.0 Candidiasis Of Mouth 04/16/2010 SHAW DO, CACHORRO K 112.0 Candidiasis Of Mouth 04/16/2010 SHAW DO, CACHORRO K 112.0 Candidiasis Of Mouth 04/16/2010 SHAW DO, CACHORRO K 112.0 Candidiasis Of Mouth 04/16/2010 SHAW DO, CACHORRO K 112.0 Candidiasis Of Mouth 04/16/2010 JOLLY DELANEY MD 112.0 Candidiasis Of Mouth 04/16/2010 SHAW DO, CACHORRO K 112.0 Candidiasis Of Mouth 04/16/2010 SHAW DO, CACHORRO K 112.0 Candidiasis Of Mouth 04/16/2010 SHAW DO, CACHORRO K 112.0 Candidiasis Of Mouth 04/16/2010 JE DONOVAN PHD 112.0 Candidiasis Of Mouth 04/16/2010 JE DONOVAN PHD 112.0 Candidiasis Of Mouth 04/16/2010 SHAW DO, CACHORRO K 112.0 Candidiasis Of Mouth 04/16/2010 ARSENHOLGER MUÑOZ SIMRAN 112.0 Candidiasis Of Mouth 04/16/2010 SIMRAN LEGER APRN 112.0 Candidiasis Of Mouth 04/16/2010 SHAW DO, CACHORRO K 112.0 Candidiasis Of Mouth 04/16/2010 CLARIBEL RAMEY MD 112.0 Candidiasis Of Mouth 04/16/2010 STEPHANIE CHRISTIANSEN APRN 112.0 Candidiasis Of Mouth 04/16/2010 JOLLY DELANEY MD 112.0 Candidiasis Of Mouth 04/16/2010 STEPHANIE CHRISTIANSEN APRN 112.0 Candidiasis Of Mouth 06/07/2010 SHAW DO, CACHORRO K 296.30 MAJOR DEPRESSIVE AFFECTIVE DISORDER RECURRENT EPISODE UNSPECIFIED DEGREE 06/07/2010 296.30 MAJOR DEPRESSIVE AFFECTIVE DISORDER RECURRENT EPISODE UNSPECIFIED DEGREE 06/07/2010 SHAW DO, CACHORRO K 296.30 MAJOR DEPRESSIVE AFFECTIVE DISORDER RECURRENT EPISODE UNSPECIFIED DEGREE 06/07/2010 SHAW DO, CACHORRO K 296.30 MAJOR DEPRESSIVE AFFECTIVE DISORDER RECURRENT EPISODE UNSPECIFIED DEGREE 06/07/2010 296.30 MAJOR DEPRESSIVE AFFECTIVE DISORDER RECURRENT EPISODE UNSPECIFIED DEGREE 06/07/2010 SHAW DO, CACHORRO K 296.30 MAJOR DEPRESSIVE AFFECTIVE DISORDER RECURRENT EPISODE UNSPECIFIED DEGREE 06/07/2010 296.30 MAJOR DEPRESSIVE AFFECTIVE DISORDER RECURRENT EPISODE UNSPECIFIED DEGREE 06/07/2010 296.30 MAJOR DEPRESSIVE AFFECTIVE DISORDER RECURRENT EPISODE UNSPECIFIED DEGREE 06/07/2010 296.30 MAJOR DEPRESSIVE AFFECTIVE DISORDER RECURRENT EPISODE UNSPECIFIED DEGREE 06/07/2010 SHAW DO, CACHORRO K 296.30 MAJOR DEPRESSIVE AFFECTIVE DISORDER RECURRENT EPISODE UNSPECIFIED DEGREE 06/07/2010 SHAW DO, CACHORRO K 296.30 MAJOR DEPRESSIVE AFFECTIVE DISORDER RECURRENT EPISODE UNSPECIFIED DEGREE 06/07/2010 SHAW DO, CACHORRO K 296.30 MAJOR DEPRESSIVE AFFECTIVE DISORDER RECURRENT EPISODE UNSPECIFIED DEGREE 06/07/2010 SHAW DO, CACHORRO K 296.30 MAJOR DEPRESSIVE AFFECTIVE DISORDER RECURRENT EPISODE UNSPECIFIED DEGREE 06/07/2010 SHAW DO, CACHORRO K 296.30 MAJOR DEPRESSIVE AFFECTIVE DISORDER RECURRENT EPISODE UNSPECIFIED DEGREE 06/07/2010 SHAW DO, CACHORRO K 296.30 MAJOR DEPRESSIVE AFFECTIVE DISORDER RECURRENT EPISODE UNSPECIFIED DEGREE 06/07/2010 JOLLY DELANEY MD 296.30 MAJOR DEPRESSIVE AFFECTIVE DISORDER RECURRENT EPISODE UNSPECIFIED DEGREE 06/07/2010 SHAW DO, CACHORRO K 296.30 MAJOR DEPRESSIVE AFFECTIVE DISORDER RECURRENT EPISODE UNSPECIFIED DEGREE 06/07/2010 SHAW DO, CACHORRO K 296.30 MAJOR DEPRESSIVE AFFECTIVE DISORDER RECURRENT EPISODE UNSPECIFIED DEGREE 06/07/2010 SHAW DO, CACHORRO K 296.30 MAJOR DEPRESSIVE AFFECTIVE DISORDER RECURRENT EPISODE UNSPECIFIED DEGREE 06/07/2010 JE DONOVAN PHD 296.30 MAJOR DEPRESSIVE AFFECTIVE DISORDER RECURRENT EPISODE UNSPECIFIED DEGREE 06/07/2010 JE DONOVAN PHD 296.30 MAJOR DEPRESSIVE AFFECTIVE DISORDER RECURRENT EPISODE UNSPECIFIED DEGREE 06/07/2010 SHAW DO, CACHORRO K 296.30 MAJOR DEPRESSIVE AFFECTIVE DISORDER RECURRENT EPISODE UNSPECIFIED DEGREE 06/07/2010 ARSEN CONTRACT NEGOTIATION SPECIALIST, SIMRAN 296.30 MAJOR DEPRESSIVE AFFECTIVE DISORDER RECURRENT EPISODE UNSPECIFIED DEGREE 06/07/2010 ARSEN CONTRACT NEGOTIATION SPECIALIST, SIMRAN 296.30 MAJOR DEPRESSIVE AFFECTIVE DISORDER RECURRENT EPISODE UNSPECIFIED DEGREE 06/07/2010 SHAW DO CACHORRO K 296.30 MAJOR DEPRESSIVE AFFECTIVE DISORDER RECURRENT EPISODE UNSPECIFIED DEGREE 06/07/2010 CLARIBEL RAMEY MD 296.30 MAJOR DEPRESSIVE AFFECTIVE DISORDER RECURRENT EPISODE UNSPECIFIED DEGREE 06/07/2010 STEPHANIE CHRISTIANSEN APRN S 296.30 MAJOR DEPRESSIVE AFFECTIVE DISORDER RECURRENT EPISODE UNSPECIFIED DEGREE 06/07/2010 JOLLY DELANEY MD 296.30 MAJOR DEPRESSIVE AFFECTIVE DISORDER RECURRENT EPISODE UNSPECIFIED DEGREE 06/07/2010 STEPHANIE CHRISTIANSEN APRN S 296.30 MAJOR DEPRESSIVE AFFECTIVE DISORDER RECURRENT EPISODE UNSPECIFIED DEGREE 06/17/2010 Ot 891.0 06/17/2010 Ot E000.8 06/17/2010 Ot E849.0 06/17/2010 Ot E920.8 06/17/2010 Ot V06.1 07/03/2010 VALERIA CASH CACHORRO K 296.32 MO DEPRESSIVE RECURRENT MODERATE 07/03/2010 296.32 MO DEPRESSIVE RECURRENT MODERATE 07/03/2010 SHAW DO CACHORRO K 296.32 MO DEPRESSIVE RECURRENT MODERATE 07/03/2010 SHAW DO CACHORRO K 296.32 MO DEPRESSIVE RECURRENT MODERATE 07/03/2010 296.32 MO DEPRESSIVE RECURRENT MODERATE 07/03/2010 SHAW DO CACHORRO K 296.32 MO DEPRESSIVE RECURRENT MODERATE 07/03/2010 296.32 MO DEPRESSIVE RECURRENT MODERATE 07/03/2010 296.32 MO DEPRESSIVE RECURRENT MODERATE 07/03/2010 296.32 MO DEPRESSIVE RECURRENT MODERATE 07/03/2010 SHAW DO CACHORRO K 296.32 MO DEPRESSIVE RECURRENT MODERATE 07/03/2010 SHAW DO CACHORRO K 296.32 MO DEPRESSIVE RECURRENT MODERATE 07/03/2010 SHAW DO CACHORRO K 296.32 MO DEPRESSIVE RECURRENT MODERATE 07/03/2010 SHAW DO CACHORRO K 296.32 MO DEPRESSIVE RECURRENT MODERATE 07/03/2010 SHAW DO CACHORRO K 296.32 MO DEPRESSIVE RECURRENT MODERATE 07/03/2010 SHAW DO CACHORRO K 296.32 MO DEPRESSIVE RECURRENT MODERATE 07/03/2010 JOLLY DELANEY MD 296.32 MO DEPRESSIVE RECURRENT MODERATE 07/03/2010 SHAW DO CACHORRO K 296.32 MO DEPRESSIVE RECURRENT MODERATE 07/03/2010 SHAW DO, CACHORRO K 296.32 MO DEPRESSIVE RECURRENT MODERATE 07/03/2010 CACHORRO SHAW DO 296.32 MO DEPRESSIVE RECURRENT MODERATE 07/03/2010 VENUS SUN, JE Cabrera 296.32 MO DEPRESSIVE RECURRENT MODERATE 07/03/2010 JE DONOVAN PHD 296.32 MO DEPRESSIVE RECURRENT MODERATE 07/03/2010 CACHORRO SHAW DO 296.32 MO DEPRESSIVE RECURRENT MODERATE 07/03/2010 SIMRAN LEGER APRN 296.32 MO DEPRESSIVE RECURRENT MODERATE 07/03/2010 SIMRAN LEGER APRN 296.32 MO DEPRESSIVE RECURRENT MODERATE 07/03/2010 CACHORRO SHAW DO 296.32 MO DEPRESSIVE RECURRENT MODERATE 07/03/2010 TANVIR JAMES, CLARIBEL Braun 296.32 MO DEPRESSIVE RECURRENT MODERATE 07/03/2010 STEPHANIE CHRISTIANSEN APRN S 296.32 MO DEPRESSIVE RECURRENT MODERATE 07/03/2010 ELAINA JAMES, JOLLY 296.32 MO DEPRESSIVE RECURRENT MODERATE 07/03/2010 STEPHANIE CHRISTIANSEN APRN S 296.32 MO DEPRESSIVE RECURRENT MODERATE 10/16/2010 Ot 250.80 DIAB W OTH SPEC MANIFEST, TYPE II OR UNS 10/16/2010 Ot 924.20 CONTUSION OF FOOT 10/16/2010 Ot 959.7 LOWER LEG INJURY NOS 10/16/2010 Ot E000.8 OTHER EXTERNAL CAUSE STATUS 10/16/2010 Ot E849.0 ACCIDENT IN HOME 10/16/2010 Ot E888.9 FALL NOS 10/16/2010 Ot V58.67 LONG-TERM (CURRENT) USE OF INSULIN 10/16/2010 Ot V58.69 OTH MED,LT,CURRENT USE 12/03/2010 CACHORRO SHAW DO 304.20 COCAINE DEPENDENCE 12/03/2010 304.20 COCAINE DEPENDENCE 12/03/2010 CACHORRO SHAW DO 304.20 COCAINE DEPENDENCE 12/03/2010 CACHORRO SHAW DO 304.20 COCAINE DEPENDENCE 12/03/2010 304.20 COCAINE DEPENDENCE 12/03/2010 CACHORRO SHAW DO 304.20 COCAINE DEPENDENCE 12/03/2010 304.20 COCAINE DEPENDENCE 12/03/2010 304.20 COCAINE DEPENDENCE 12/03/2010 304.20 COCAINE DEPENDENCE 12/03/2010 CACHORRO SHAW DO 304.20 COCAINE DEPENDENCE 12/03/2010 CACHORRO SHAW DO 304.20 COCAINE DEPENDENCE 12/03/2010 SHAW DO, CACHORRO K 304.20 COCAINE DEPENDENCE 12/03/2010 SUMIT SHAW DOA K 304.20 COCAINE DEPENDENCE 12/03/2010 SHAW DO CACHORRO K 304.20 COCAINE DEPENDENCE 12/03/2010 SUMIT SHAW DOA K 304.20 COCAINE DEPENDENCE 12/03/2010 ELAINA JAMES, JOLLY 304.20 COCAINE DEPENDENCE 12/03/2010 SUMIT SHAW DOA K 304.20 COCAINE DEPENDENCE 12/03/2010 SUMIT SHAW DOA K 304.20 COCAINE DEPENDENCE 12/03/2010 SUMIT SHAW DOA K 304.20 COCAINE DEPENDENCE 12/03/2010 VENUS SUN, JE Cabrera 304.20 COCAINE DEPENDENCE 12/03/2010 VENUS SUN, JE Cabrera 304.20 COCAINE DEPENDENCE 12/03/2010 VALERIA CASH CACHORRO K 304.20 COCAINE DEPENDENCE 12/03/2010 SIMRAN LEGER APRN 304.20 COCAINE DEPENDENCE 12/03/2010 SIMRAN LEGER APRN 304.20 COCAINE DEPENDENCE 12/03/2010 VALERIA CASH CACHORRO K 304.20 COCAINE DEPENDENCE 12/03/2010 TANVIR JAMES, CLARIBEL Braun 304.20 COCAINE DEPENDENCE 12/03/2010 STEPHANIE CHRISTIANSEN APRN S 304.20 COCAINE DEPENDENCE 12/03/2010 ELAINA JAMES, JOLLY 304.20 COCAINE DEPENDENCE 12/03/2010 STEPHANIE CHRISTIANSEN APRN S 304.20 COCAINE DEPENDENCE 01/09/2011 Ot 250.02 DIAB KYLE WO COMPL, TYPE II OR UNSPEC TY 01/09/2011 Ot 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 01/09/2011 Ot 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 01/09/2011 Ot 716.90 ARTHROPATHY NOS-UNSPEC 01/17/2011 CACHORRO SHAW DO 786.52 CHEST WALL PAIN 01/17/2011 CACHORRO SHAW DO 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 01/17/2011 786.52 CHEST WALL PAIN 01/17/2011 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 01/17/2011 CACHORRO SHAW DO 786.52 Chest Wall Pain 01/17/2011 CACHORRO SHAW DO 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 01/17/2011 CACHORRO SHAW DO 786.52 Chest Wall Pain 01/17/2011 CACHORRO SHAW DO 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 01/17/2011 786.52 Chest Wall Pain 01/17/2011 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 01/17/2011 SHAW DO, CACHORRO K 786.52 Chest Wall Pain 01/17/2011 SHAW DO, CACHORRO K 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 01/17/2011 786.52 Chest Wall Pain 01/17/2011 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 01/17/2011 786.52 Chest Wall Pain 01/17/2011 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 01/17/2011 786.52 Chest Wall Pain 01/17/2011 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 01/17/2011 SHAW DO, CACHORRO K 786.52 Chest Wall Pain 01/17/2011 SHAW DO, CACHORRO K 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 01/17/2011 SHAW DO, CACHORRO K 786.52 Chest Wall Pain 01/17/2011 SHAW DO, CACHORRO K 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 01/17/2011 SHAW DO, CACHORRO K 786.52 Chest Wall Pain 01/17/2011 SHAW DO, CACHORRO K 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 01/17/2011 SHAW DO, CACHORRO K 786.52 Chest Wall Pain 01/17/2011 SHAW DO, CACHORRO K 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 01/17/2011 SHAW DO, CACHORRO K 786.52 Chest Wall Pain 01/17/2011 SHAW DO, CACHORRO K 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 01/17/2011 SHAW DO, CACHORRO K 786.52 Chest Wall Pain 01/17/2011 SHAW DO, CACHORRO K 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 01/17/2011 JOLLY DELANEY MD 786.52 Chest Wall Pain 01/17/2011 OJLLY DELANEY MD 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 01/17/2011 SHAW DO, CACHORRO K 786.52 Chest Wall Pain 01/17/2011 SHAW DO, CACHORRO K 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 01/17/2011 SHAW DO, CACHORRO K 786.52 Chest Wall Pain 01/17/2011 SHAW DO, CACHORRO K 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 01/17/2011 SHAW DO, CACHORRO K 786.52 Chest Wall Pain 01/17/2011 SUMIT SHAW DOA K 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 01/17/2011 VENUS SUN, JE Cabrera 786.52 Chest Wall Pain 01/17/2011 VENUS SUN, JE Cabrera 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 01/17/2011 VENUS SUN, JE Cabrera 786.52 Chest Wall Pain 01/17/2011 VENUS SUN, JE Cabrera 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 01/17/2011 SUMIT SHAW DOA K 786.52 Chest Wall Pain 01/17/2011 SUMIT SHAW DOA K 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52 Chest Wall Pain 01/17/2011 CLARIBEL RAMEY MD 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 01/17/2011 ЕЛЕНА CONTRACT NEGOTIATION SPECIALIST, STEPHANIE S 786.52 Chest Wall Pain 01/17/2011 ЕЛЕНА MUÑOZ, STEPHANIE S 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 01/17/2011 JOLLY DELANEY MD 786.52 Chest Wall Pain 01/17/2011 JOLLY DELANEY MD 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 01/17/2011 ЕЛЕНА CONTRACT NEGOTIATION SPECIALIST, STEPHANIE S 786.52 Chest Wall Pain 01/17/2011 ЕЛЕНАPAZ MUÑOZ STEPHANIE S 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 03/18/2011 CACHORRO SHAW DO K 578.1 BLOOD IN STOOL 03/18/2011 578.1 BLOOD IN STOOL 03/18/2011 CACHORRO SHAW DO K 578.1 Blood In Stool 03/18/2011 SHAW DO, CACHORRO K 578.1 Blood In Stool 03/18/2011 578.1 Blood In Stool 03/18/2011 SHAW DO, CACHORRO K 578.1 Blood In Stool 03/18/2011 578.1 Blood In Stool 03/18/2011 578.1 Blood In Stool 03/18/2011 578.1 Blood In Stool 03/18/2011 SHAW DO, CACHORRO K 578.1 Blood In Stool 03/18/2011 SHAW DO, CACHORRO K 578.1 Blood In Stool 03/18/2011 SHAW DO, CACHORRO K 578.1 Blood In Stool 03/18/2011 SHAW DO, CACHORRO K 578.1 Blood In Stool 03/18/2011 SHAW DO, CACHORRO K 578.1 Blood In Stool 03/18/2011 SHAW DO, CACHORRO K 578.1 Blood In Stool 03/18/2011 JOLLY DELANEY MD 578.1 Blood In Stool 03/18/2011 SHAW DO, CACHORRO K 578.1 Blood In Stool 03/18/2011 SHAW DO, CACHORRO K 578.1 Blood In Stool 03/18/2011 SHAW DO, CACHORRO K 578.1 Blood In Stool 03/18/2011 VENUS PHD, JE Cabrera 578.1 Blood In Stool 03/18/2011 VENUS SUN, JE Cabrera 578.1 Blood In Stool 03/18/2011 SHAW DO, CACHORRO K 578.1 Blood In Stool 03/18/2011 RASEN MUÑOZ SIMRAN 578.1 Blood In Stool 03/18/2011 SIMRAN LEGER APRN 578.1 Blood In Stool 03/18/2011 SHAW DO, CACHORRO K 578.1 Blood In Stool 03/18/2011 CLARIBEL RAMEY MD 578.1 Blood In Stool 03/18/2011 STEPHANIE CHRISTIANSEN APRN S 578.1 Blood In Stool 03/18/2011 JOLLY DELANEY MD 578.1 Blood In Stool 03/18/2011 ЕЛЕНА MUÑOZ STEPHANIE S 578.1 Blood In Stool 03/25/2011 SHAW DO, CACHORRO K 789.06 ABDOMINAL PAIN EPIGASTRIC 03/25/2011 SHAW DO, CACHORRO K V76.51 COLON CANCER SCREENING 03/25/2011 789.06 ABDOMINAL PAIN EPIGASTRIC 03/25/2011 V76.51 COLON CANCER SCREENING 03/25/2011 SHAW DO, CACHORRO K 789.06 Abdominal Pain Epigastric 03/25/2011 SHAW DO, CACHORRO K V76.51 COLON CANCER SCREENING 03/25/2011 SHAW DO, CACHORRO K 789.06 Abdominal Pain Epigastric 03/25/2011 SHAW DO, CACHORRO K V76.51 COLON CANCER SCREENING 03/25/2011 789.06 Abdominal Pain Epigastric 03/25/2011 V76.51 COLON CANCER SCREENING 03/25/2011 SHAW DO, CACHORRO K 789.06 Abdominal Pain Epigastric 03/25/2011 SHAW DO, CACHORRO K V76.51 COLON CANCER SCREENING 03/25/2011 789.06 Abdominal Pain Epigastric 03/25/2011 V76.51 COLON CANCER SCREENING 03/25/2011 789.06 Abdominal Pain Epigastric 03/25/2011 V76.51 COLON CANCER SCREENING 03/25/2011 789.06 Abdominal Pain Epigastric 03/25/2011 V76.51 COLON CANCER SCREENING 03/25/2011 SHAW DO, CACHORRO K 789.06 Abdominal Pain Epigastric 03/25/2011 SHAW DO, CACHORRO K V76.51 COLON CANCER SCREENING 03/25/2011 SHAW DO, CACHORRO K 789.06 Abdominal Pain Epigastric 03/25/2011 SHAW DO, CACHORRO K V76.51 COLON CANCER SCREENING 03/25/2011 SHAW DO, CACHORRO K 789.06 Abdominal Pain Epigastric 03/25/2011 SHAW DO, CACHORRO K V76.51 COLON CANCER SCREENING 03/25/2011 SHAW DO, CACHORRO K 789.06 Abdominal Pain Epigastric 03/25/2011 SHAW DO, CACHORRO K V76.51 COLON CANCER SCREENING 03/25/2011 SHAW DO, CACHORRO K 789.06 Abdominal Pain Epigastric 03/25/2011 SHAW DO, CACHORRO K V76.51 COLON CANCER SCREENING 03/25/2011 SHAW DO, CACHORRO K 789.06 Abdominal Pain Epigastric 03/25/2011 SHAW DO, CACHORRO K V76.51 COLON CANCER SCREENING 03/25/2011 JOLLY DELANEY MD 789.06 Abdominal Pain Epigastric 03/25/2011 JOLLY DELANEY MD V76.51 COLON CANCER SCREENING 03/25/2011 SHAW DO, CACHORRO K 789.06 Abdominal Pain Epigastric 03/25/2011 SHAW DO CACHORRO K V76.51 COLON CANCER SCREENING 03/25/2011 SHAW DO, CACHORRO K 789.06 Abdominal Pain Epigastric 03/25/2011 SHAW DO, CACHORRO K V76.51 COLON CANCER SCREENING 03/25/2011 SHAW DO, CACHORRO K 789.06 Abdominal Pain Epigastric 03/25/2011 SHAW DO CACHORRO K V76.51 COLON CANCER SCREENING 03/25/2011 VENUS SUN, JE Cabrera 789.06 Abdominal Pain Epigastric 03/25/2011 VENUS PHD, JE Cabrera V76.51 COLON CANCER SCREENING 03/25/2011 VENUS PHD, JE Cabrera 789.06 Abdominal Pain Epigastric 03/25/2011 VENUS SUN, JE Cabrera V76.51 COLON CANCER SCREENING 03/25/2011 SHAW DO CACHORRO K 789.06 Abdominal Pain Epigastric 03/25/2011 SHAW DO CACHORRO K V76.51 COLON CANCER SCREENING 03/25/2011 ARSEN CONTRACT NEGOTIATION SPECIALIST, SIMRAN 789.06 Abdominal Pain Epigastric 03/25/2011 ARSEN CONTRACT NEGOTIATION SPECIALIST, SIMRAN V76.51 COLON CANCER SCREENING 03/25/2011 ARSEN CONTRACT NEGOTIATION SPECIALIST, SIMRAN 789.06 Abdominal Pain Epigastric 03/25/2011 ARSEN CONTRACT NEGOTIATION SPECIALIST, SIMRAN V76.51 COLON CANCER SCREENING 03/25/2011 SHAW DO CACHORRO K 789.06 Abdominal Pain Epigastric 03/25/2011 SHAW DO, CACHORRO K V76.51 COLON CANCER SCREENING 03/25/2011 CLARIBEL RAMEY MD 789.06 Abdominal Pain Epigastric 03/25/2011 CLARIBEL RAMEY MD V76.51 COLON CANCER SCREENING 03/25/2011 ЕЛЕНА MUÑOZ STEPHANIE S 789.06 Abdominal Pain Epigastric 03/25/2011 ЕЛЕНА MUÑOZ, STEPHANIE S V76.51 COLON CANCER SCREENING 03/25/2011 JOLLY DELANEY MD 789.06 Abdominal Pain Epigastric 03/25/2011 JOLLY DELANEY MD V76.51 COLON CANCER SCREENING 03/25/2011 ЕЛЕНА MUÑOZ STEPHANIE S 789.06 Abdominal Pain Epigastric 03/25/2011 ЕЛЕНА MUÑOZ STEPHANIE S V76.51 COLON CANCER SCREENING 04/08/2011 SHAW DO, CACHORRO K V58.69 MEDICATION HIGH RISK 04/08/2011 V58.69 MEDICATION HIGH RISK 04/08/2011 SHAW DO, CACHORRO K V58.69 MEDICATION HIGH RISK 04/08/2011 SHAW DO, CACHORRO K V58.69 MEDICATION HIGH RISK 04/08/2011 V58.69 MEDICATION HIGH RISK 04/08/2011 SHAW DO, CACHORRO K V58.69 MEDICATION HIGH RISK 04/08/2011 V58.69 MEDICATION HIGH RISK 04/08/2011 V58.69 MEDICATION HIGH RISK 04/08/2011 V58.69 MEDICATION HIGH RISK 04/08/2011 SHAW DO, CACHORRO K V58.69 MEDICATION HIGH RISK 04/08/2011 SHAW DO, CACHORRO K V58.69 MEDICATION HIGH RISK 04/08/2011 SHAW DO, CACHORRO K V58.69 MEDICATION HIGH RISK 04/08/2011 SHAW DO, CACHORRO K V58.69 MEDICATION HIGH RISK 04/08/2011 SHAW DO, CACHORRO K V58.69 MEDICATION HIGH RISK 04/08/2011 SHAW DO, CACHORRO K V58.69 MEDICATION HIGH RISK 04/08/2011 JOLLY DELANEY MD V58.69 MEDICATION HIGH RISK 04/08/2011 SHAW DO, CACHORRO K V58.69 MEDICATION HIGH RISK 04/08/2011 SHAW DO, CACHORRO K V58.69 MEDICATION HIGH RISK 04/08/2011 SHAW DO, CACHORRO K V58.69 MEDICATION HIGH RISK 04/08/2011 VENUS SUN, JE Cabrera V58.69 MEDICATION HIGH RISK 04/08/2011 VENUS SUN, JE Cabrera V58.69 MEDICATION HIGH RISK 04/08/2011 SHAW DO, CACHORRO K V58.69 MEDICATION HIGH RISK 04/08/2011 ARSEN CONTRACT NEGOTIATION SPECIALIST SIMRAN V58.69 MEDICATION HIGH RISK 04/08/2011 ARSEN CONTRACT NEGOTIATION SPECIALIST, SIMRAN V58.69 MEDICATION HIGH RISK 04/08/2011 SHAW DO, CACHORRO K V58.69 MEDICATION HIGH RISK 04/08/2011 TANVIR JAMES, CLARIBEL Braun V58.69 MEDICATION HIGH RISK 04/08/2011 ЕЛЕНА MUÑOZ STEPHANIE S V58.69 MEDICATION HIGH RISK 04/08/2011 JOLLY DELANEY MD V58.69 MEDICATION HIGH RISK 04/08/2011 ЕЛЕНА MUÑOZ STEPHANIE S V58.69 MEDICATION HIGH RISK 06/20/2011 SHAW DO, CACHORRO K 466.0 ACUTE BRONCHITIS 06/20/2011 466.0 ACUTE BRONCHITIS 06/20/2011 SHAW DO, CACHORRO K 466.0 Acute Bronchitis 06/20/2011 SHAW DO, CACHORRO K 466.0 Acute Bronchitis 06/20/2011 466.0 Acute Bronchitis 06/20/2011 SHAW DO, CACHORRO K 466.0 Acute Bronchitis 06/20/2011 466.0 Acute Bronchitis 06/20/2011 466.0 Acute Bronchitis 06/20/2011 466.0 Acute Bronchitis 06/20/2011 SHAW DO, CACHORRO K 466.0 Acute Bronchitis 06/20/2011 SHAW DO, CACHORRO K 466.0 Acute Bronchitis 06/20/2011 SHAW DO, CACHORRO K 466.0 Acute Bronchitis 06/20/2011 SHAW DO, CACHORRO K 466.0 Acute Bronchitis 06/20/2011 SHAW DO, CACHORRO K 466.0 Acute Bronchitis 06/20/2011 SHAW DO, CACHORRO K 466.0 Acute Bronchitis 06/20/2011 JOLLY DELANEY MD 466.0 Acute Bronchitis 06/20/2011 SHAW DO, CACHORRO K 466.0 Acute Bronchitis 06/20/2011 SHAW DO, CACHORRO K 466.0 Acute Bronchitis 06/20/2011 SHAW DO, CACHORRO K 466.0 Acute Bronchitis 06/20/2011 VENUS PHD, JE Cabrera 466.0 Acute Bronchitis 06/20/2011 VENUS PHD, JE Cabrera 466.0 Acute Bronchitis 06/20/2011 SHAW DO, CACHORRO K 466.0 Acute Bronchitis 06/20/2011 ARSEN CONTRACT NEGOTIATION SPECIALIST, SIMRAN 466.0 Acute Bronchitis 06/20/2011 ARSEN CONTRACT NEGOTIATION SPECIALIST, SIMRAN 466.0 Acute Bronchitis 06/20/2011 SHAW DO, CACHORRO K 466.0 Acute Bronchitis 06/20/2011 TANVIR JAMES, CLARIBEL Braun 466.0 Acute Bronchitis 06/20/2011 ЕЛЕНА CONTRACT NEGOTIATION SPECIALIST, STEPHANIE S 466.0 Acute Bronchitis 06/20/2011 JOLLY DELANEY MD 466.0 Acute Bronchitis 06/20/2011 ЕЛЕНА CONTRACT NEGOTIATION SPECIALIST, STEPHANIE S 466.0 Acute Bronchitis 2011 SHAW DO, CACHORRO K 338.29 OTHER CHRONIC PAIN 2011 338.29 OTHER CHRONIC PAIN 2011 SHAW DO, CACHORRO K 338.29 Other Chronic Pain 2011 SHAW DO, CACHORRO K 338.29 Other Chronic Pain 2011 338.29 Other Chronic Pain 2011 SHAW DO, CACHORRO K 338.29 Other Chronic Pain 2011 338.29 Other Chronic Pain 2011 338.29 Other Chronic Pain 2011 338.29 Other Chronic Pain 2011 SHAW DO, CACHORRO K 338.29 Other Chronic Pain 2011 SHAW DO, CACHORRO K 338.29 Other Chronic Pain 2011 SHAW DO, CACHORRO K 338.29 Other Chronic Pain 2011 SHAW DO, CACHORRO K 338.29 Other Chronic Pain 2011 SHAW DO, CACHORRO K 338.29 Other Chronic Pain 2011 SHAW DO, CACHORRO K 338.29 Other Chronic Pain 2011 JOLLY DELANEY MD 338.29 Other Chronic Pain 2011 SHAW DO, CACHORRO K 338.29 Other Chronic Pain 2011 SHAW DO, CACHORRO K 338.29 Other Chronic Pain 2011 SHAW DO, CACHORRO K 338.29 Other Chronic Pain 2011 VENUS SUN, JE Cabrera 338.29 Other Chronic Pain 2011 VENUS SUN, JE Cabrera 338.29 Other Chronic Pain 2011 SHAW DO, CACHORRO K 338.29 Other Chronic Pain 2011 SIMRAN LEGER APRN 338.29 Other Chronic Pain 2011 SIMRAN LEGER APRN 338.29 Other Chronic Pain 2011 SHAW DO, CACHORRO K 338.29 Other Chronic Pain 2011 TANVIR JAMES, CLARIBEL Braun 338.29 Other Chronic Pain 2011 STEPHANIE CHRISTIANSEN APRN 338.29 Other Chronic Pain 2011 JOLLY DELANEY MD 338.29 Other Chronic Pain 2011 STEPHANIE CHRISTIANSEN APRN 338.29 Other Chronic Pain 10/09/2011 Ot 244.9 HYPOTHYROIDISM NOS 10/09/2011 Ot 250.00 DIAB KYLE WO COMPL, TYPE II OR UNSPEC TY 10/09/2011 Ot 276.1 HYPOSMOLALITY 10/09/2011 Ot 285.9 ANEMIA NOS 10/09/2011 Ot 300.00 ANXIETY STATE NOS 10/09/2011 Ot 305.1 TOBACCO USE DISORDER 10/09/2011 Ot 311 DEPRESSIVE DISORDER NEC 10/09/2011 Ot 414.00 CORON ATHEROSCLER NOS TYPE VESSEL, NATIV 10/09/2011 Ot 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 10/09/2011 Ot 729.1 MYALGIA AND MYOSITIS NOS 10/09/2011 Ot 780.60 FEVER, UNSPECIFIED 10/09/2011 Ot 780.79 OTH MALAISE FATIGUE 10/09/2011 Ot 787.01 NAUSEA WITH VOMITING 10/09/2011 Ot 787.91 DIARRHEA 10/09/2011 Ot 789.02 ABDOMINAL PAIN, LEFT UPPER QUADRANT 10/09/2011 Ot 793.19 OTHER NONSPECIFIC ABNORMAL FINDING OF IRENE 10/09/2011 Ot V12.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, CEREBRAL INFARCTION 10/09/2011 Ot V12.79 PERSONAL HISTORY OTH SPEC DIGESTIVE SYST 11/19/2011 SHAW DO, CACHORRO K 787.91 DIARRHEA 11/19/2011 787.91 DIARRHEA 11/19/2011 SHAW DO, CACHORRO K 787.91 Diarrhea 11/19/2011 SHAW DO, CACHORRO K 787.91 Diarrhea 11/19/2011 787.91 Diarrhea 11/19/2011 SHAW DO, CACHORRO K 787.91 Diarrhea 11/19/2011 787.91 Diarrhea 11/19/2011 787.91 Diarrhea 11/19/2011 787.91 Diarrhea 11/19/2011 SHAW DO, CACHORRO K 787.91 Diarrhea 11/19/2011 SHAW DO, CACHORRO K 787.91 Diarrhea 11/19/2011 SHAW DO, CACHORRO K 787.91 Diarrhea 11/19/2011 SHAW DO, CACHORRO K 787.91 Diarrhea 11/19/2011 SHAW DO, CACHORRO K 787.91 Diarrhea 11/19/2011 SHAW DO, CACHORRO K 787.91 Diarrhea 11/19/2011 JOLLY DELANEY MD 787.91 Diarrhea 11/19/2011 SHAW DO, CACHORRO K 787.91 Diarrhea 11/19/2011 SHAW DO, CACHORRO K 787.91 Diarrhea 11/19/2011 SHAW DO, CACHORRO K 787.91 Diarrhea 11/19/2011 VENUS PHD, JE Cabrera 787.91 Diarrhea 11/19/2011 VENUS PHD, JE Cabrera 787.91 Diarrhea 11/19/2011 SHAW DO, CACHORRO K 787.91 Diarrhea 11/19/2011 SIMRAN LEGER APRN 787.91 Diarrhea 11/19/2011 SIMRAN LEGER APRN 787.91 Diarrhea 11/19/2011 CACHORRO SHAW DO 787.91 Diarrhea 11/19/2011 TANVIR JAMES, CLARIBEL Braun 787.91 Diarrhea 11/19/2011 STEPHANIE CHRISTIANSEN APRN 787.91 Diarrhea 11/19/2011 JOLLY DELANEY MD 787.91 Diarrhea 11/19/2011 STEPHANIE CHRISTIANSEN APRN 787.91 Diarrhea 11/21/2011 Ot 250.00 DIAB KYLE WO COMPL, TYPE II OR UNSPEC TY 11/21/2011 Ot 780.4 DIZZINESS AND GIDDINESS 11/21/2011 Ot 802.0 NASAL BONE FX-CLOSED 11/21/2011 Ot 959.09 INJURY OF FACE AND NECK 11/21/2011 Ot E000.8 OTHER EXTERNAL CAUSE STATUS 11/21/2011 Ot E849.0 ACCIDENT IN HOME 11/21/2011 Ot E888.1 FALL STRIKING OBJECT NEC 11/21/2011 Ot V58.67 LONG-TERM (CURRENT) USE OF INSULIN 11/21/2011 Ot V58.69 OTH MED,LT,CURRENT USE 12/10/2011 Ot 244.9 HYPOTHYROIDISM NOS 12/10/2011 Ot 250.82 DIAB W OTH SPEC MANIFEST, TYPE II OR UNS 12/10/2011 Ot 275.2 DIS MAGNESIUM METABOLISM 12/10/2011 Ot 276.51 DEHYDRATION 12/10/2011 Ot 311 DEPRESSIVE DISORDER NEC 12/10/2011 Ot 780.4 DIZZINESS AND GIDDINESS 12/10/2011 Ot 780.79 OTH MALAISE FATIGUE 12/10/2011 Ot V12.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, CEREBRAL INFARCTION 12/10/2011 Ot V58.67 LONG-TERM (CURRENT) USE OF INSULIN 12/11/2011 CACHORRO SHAW DO 780.4 DIZZINESS AND VERTIGO 12/11/2011 780.4 DIZZINESS AND VERTIGO 12/11/2011 CACHORRO SHAW DO 780.4 Dizziness And Vertigo 12/11/2011 CACHORRO SHAW DO 780.4 Dizziness And Vertigo 12/11/2011 780.4 Dizziness And Vertigo 12/11/2011 CACHORRO SHAW DO 780.4 Dizziness And Vertigo 12/11/2011 780.4 Dizziness And Vertigo 12/11/2011 780.4 Dizziness And Vertigo 12/11/2011 780.4 Dizziness And Vertigo 12/11/2011 SHAW DO, CACHORRO K 780.4 Dizziness And Vertigo 12/11/2011 SHAW DO, CACHORRO K 780.4 Dizziness And Vertigo 12/11/2011 SHAW DO, CACHORRO K 780.4 Dizziness And Vertigo 12/11/2011 SHAW DO, CACHORRO K 780.4 Dizziness And Vertigo 12/11/2011 SHAW DO, CACHORRO K 780.4 Dizziness And Vertigo 12/11/2011 SHAW DO, CACHORRO K 780.4 Dizziness And Vertigo 12/11/2011 JOLLY DELANEY MD 780.4 Dizziness And Vertigo 12/11/2011 SHAW DO, CACHORRO K 780.4 Dizziness And Vertigo 12/11/2011 SHAW DO, CACHORRO K 780.4 Dizziness And Vertigo 12/11/2011 SHAW DO, CACHORRO K 780.4 Dizziness And Vertigo 12/11/2011 VENUS SUN, JE Cabrera 780.4 Dizziness And Vertigo 12/11/2011 VENUS SUN, JE Cabrera 780.4 Dizziness And Vertigo 12/11/2011 SHAW DO, CACHORRO K 780.4 Dizziness And Vertigo 12/11/2011 ARSEN SIMRAN MUÑOZ 780.4 Dizziness And Vertigo 12/11/2011 ARSEN CONTRACT NEGOTIATION SPECIALISTSIMRAN Braun 780.4 Dizziness And Vertigo 12/11/2011 SHAW DO, CACHORRO K 780.4 Dizziness And Vertigo 12/11/2011 CLARIBEL RAMEY MD 780.4 Dizziness And Vertigo 12/11/2011 STEPHANIE CHRISTIANSEN APRN 780.4 Dizziness And Vertigo 12/11/2011 JOLLY DELANEY MD 780.4 Dizziness And Vertigo 12/11/2011 STEPHANIE CHRISTIANSEN APRN 780.4 Dizziness And Vertigo 03/18/2012 724.2 LUMBAGO/ LOW BACK PAIN 03/18/2012 SHAW DO, CACHORRO K 724.2 Lumbago/ Low Back Pain 03/18/2012 SHAW DO, CACHORRO K 724.2 Lumbago/ Low Back Pain 03/18/2012 724.2 Lumbago/ Low Back Pain 03/18/2012 SHAW DO, CACHORRO K 724.2 Lumbago/ Low Back Pain 03/18/2012 724.2 Lumbago/ Low Back Pain 03/18/2012 724.2 Lumbago/ Low Back Pain 03/18/2012 724.2 Lumbago/ Low Back Pain 03/18/2012 SHAW DO, CACHORRO K 724.2 Lumbago/ Low Back Pain 03/18/2012 SHAW DO, CACHORRO K 724.2 Lumbago/ Low Back Pain 03/18/2012 SHAW DO, CACHORRO K 724.2 Lumbago/ Low Back Pain 03/18/2012 SHAW DO, CACHORRO K 724.2 Lumbago/ Low Back Pain 03/18/2012 SHAW DO, CACHORRO K 724.2 Lumbago/ Low Back Pain 03/18/2012 SHAW DO, CACHORRO K 724.2 Lumbago/ Low Back Pain 03/18/2012 JOLLY DELANEY MD 724.2 Lumbago/ Low Back Pain 03/18/2012 SHAW DO, CACHORRO K 724.2 Lumbago/ Low Back Pain 03/18/2012 SHAW DO, CACHORRO K 724.2 Lumbago/ Low Back Pain 03/18/2012 SHAW DO, CACHORRO K 724.2 Lumbago/ Low Back Pain 03/18/2012 VENUS SUN, JE Cabrera 724.2 Lumbago/ Low Back Pain 03/18/2012 VENUS SUN, JE Cabrera 724.2 Lumbago/ Low Back Pain 03/18/2012 SHAW DO, CACHORRO K 724.2 Lumbago/ Low Back Pain 03/18/2012 SIMRAN LEGER APRN 724.2 Lumbago/ Low Back Pain 03/18/2012 SIMRAN LEGER APRN 724.2 Lumbago/ Low Back Pain 03/18/2012 SHAW DO, CACHORRO K 724.2 Lumbago/ Low Back Pain 03/18/2012 CLARIBEL RAMEY MD 724.2 Lumbago/ Low Back Pain 03/18/2012 STEPHANIE CHRISTIANSEN APRN 724.2 Lumbago/ Low Back Pain 03/18/2012 JOLLY DELANEY MD 724.2 Lumbago/ Low Back Pain 03/18/2012 STEPHANIE CHRISTIANSEN APRN 724.2 Lumbago/ Low Back Pain 03/19/2012 SHAW DO, CACHORRO K 293.0 DELIRIUM DUE TO CONDITIONS CLASSIFIED ELSEWHERE 03/19/2012 SHAW DO, CACHORRO K 780.09 OR DELERIUM NOS 03/19/2012 SHAW DO, CACHORRO K 293.0 DELIRIUM DUE TO CONDITIONS CLASSIFIED ELSEWHERE 03/19/2012 SHAW DO, CACHORRO K 780.09 OR DELERIUM NOS 03/19/2012 293.0 DELIRIUM DUE TO CONDITIONS CLASSIFIED ELSEWHERE 03/19/2012 780.09 OR DELERIUM NOS 03/19/2012 SHAW DO, CACHORRO K 293.0 DELIRIUM DUE TO CONDITIONS CLASSIFIED ELSEWHERE 03/19/2012 SHAW DO, CACHORRO K 780.09 OR DELERIUM NOS 03/19/2012 293.0 DELIRIUM DUE TO CONDITIONS CLASSIFIED ELSEWHERE 03/19/2012 780.09 OR DELERIUM NOS 03/19/2012 293.0 DELIRIUM DUE TO CONDITIONS CLASSIFIED ELSEWHERE 03/19/2012 780.09 OR DELERIUM NOS 03/19/2012 293.0 DELIRIUM DUE TO CONDITIONS CLASSIFIED ELSEWHERE 03/19/2012 780.09 OR DELERIUM NOS 03/19/2012 SHAW DO, CACHORRO K 293.0 DELIRIUM DUE TO CONDITIONS CLASSIFIED ELSEWHERE 03/19/2012 SHAW DO, CACHORRO K 780.09 OR DELERIUM NOS 03/19/2012 SHAW DO, CACHORRO K 293.0 DELIRIUM DUE TO CONDITIONS CLASSIFIED ELSEWHERE 03/19/2012 SHAW DO, CACHORRO K 780.09 OR DELERIUM NOS 03/19/2012 SHAW DO, CACHORRO K 293.0 DELIRIUM DUE TO CONDITIONS CLASSIFIED ELSEWHERE 03/19/2012 SHAW DO, CACHORRO K 780.09 OR DELERIUM NOS 03/19/2012 SHAW DO, CACHORRO K 293.0 DELIRIUM DUE TO CONDITIONS CLASSIFIED ELSEWHERE 03/19/2012 SHAW DO, CACHORRO K 780.09 OR DELERIUM NOS 03/19/2012 SHAW DO, CACHORRO K 293.0 DELIRIUM DUE TO CONDITIONS CLASSIFIED ELSEWHERE 03/19/2012 SHAW DO, CACHORRO K 780.09 OR DELERIUM NOS 03/19/2012 SHAW DO, CACHORRO K 293.0 DELIRIUM DUE TO CONDITIONS CLASSIFIED ELSEWHERE 03/19/2012 SHAW DO, CACHORRO K 780.09 OR DELERIUM NOS 03/19/2012 JOLLY DELANEY MD 293.0 DELIRIUM DUE TO CONDITIONS CLASSIFIED ELSEWHERE 03/19/2012 JOLLY DELANEY MD 780.09 OR DELERIUM NOS 03/19/2012 SHAW DO, CACHORRO K 293.0 DELIRIUM DUE TO CONDITIONS CLASSIFIED ELSEWHERE 03/19/2012 SHAW DO, CACHORRO K 780.09 OR DELERIUM NOS 03/19/2012 SHAW DO, CACHORRO K 293.0 DELIRIUM DUE TO CONDITIONS CLASSIFIED ELSEWHERE 03/19/2012 SHAW DO, CACHORRO K 780.09 OR DELERIUM NOS 03/19/2012 SHAW DO, CACHORRO K 293.0 DELIRIUM DUE TO CONDITIONS CLASSIFIED ELSEWHERE 03/19/2012 SHAW DO, CACHORRO K 780.09 OR DELERIUM NOS 03/19/2012 JE DONOVAN PHD 293.0 DELIRIUM DUE TO CONDITIONS CLASSIFIED ELSEWHERE 03/19/2012 JE DONOVAN PHD 780.09 OR DELERIUM NOS 03/19/2012 JE DONOVAN PHD 293.0 DELIRIUM DUE TO CONDITIONS CLASSIFIED ELSEWHERE 03/19/2012 JE DONOVAN PHD 780.09 OR DELERIUM NOS 03/19/2012 SHAW DO, CACHORRO K 293.0 DELIRIUM DUE TO CONDITIONS CLASSIFIED ELSEWHERE 03/19/2012 SHAW DO, CACHORRO K 780.09 OR DELERIUM NOS 03/19/2012 SIMRAN LEGER APRN 293.0 DELIRIUM DUE TO CONDITIONS CLASSIFIED ELSEWHERE 03/19/2012 SIMRAN LEGER APRN 780.09 OR DELERIUM NOS 03/19/2012 SIMRAN LEGER APRN 293.0 DELIRIUM DUE TO CONDITIONS CLASSIFIED ELSEWHERE 03/19/2012 SIMRAN LEGER APRN 780.09 OR DELERIUM NOS 03/19/2012 SHAW DO, CACHORRO K 293.0 DELIRIUM DUE TO CONDITIONS CLASSIFIED ELSEWHERE 03/19/2012 SHAW DO, CACHORRO K 780.09 OR DELERIUM NOS 03/19/2012 CLARIBEL RAMEY MD 293.0 DELIRIUM DUE TO CONDITIONS CLASSIFIED ELSEWHERE 03/19/2012 CLARIBEL RAMEY MD 780.09 OR DELERIUM NOS 03/19/2012 STEPHANIE CHRISTIANSEN APRN S 293.0 DELIRIUM DUE TO CONDITIONS CLASSIFIED ELSEWHERE 03/19/2012 STEPHANIE CHRISTIANSEN APRN S 780.09 OR DELERIUM NOS 03/19/2012 JOLLY DELANEY MD 293.0 DELIRIUM DUE TO CONDITIONS CLASSIFIED ELSEWHERE 03/19/2012 JOLLY DELANEY MD 780.09 OR DELERIUM NOS 03/19/2012 STEPHANIE CHRISTIANSEN APRN S 293.0 DELIRIUM DUE TO CONDITIONS CLASSIFIED ELSEWHERE 03/19/2012 STEPHANIE CHRISTIANSEN APRN 780.09 OR DELERIUM NOS 03/21/2012 Ot 244.9 HYPOTHYROIDISM NOS 03/21/2012 Ot 250.02 DIAB KYLE WO COMPL, TYPE II OR UNSPEC TY 03/21/2012 Ot 300.00 ANXIETY STATE NOS 03/21/2012 Ot 305.1 TOBACCO USE DISORDER 03/21/2012 Ot 305.50 OPIOID ABUSE-UNSPEC 03/21/2012 Ot 311 DEPRESSIVE DISORDER NEC 03/21/2012 Ot 414.01 CORONARY ATHEROSCLEROSIS OF JENA CORON 03/21/2012 Ot 433.10 CAROTID ARTERY OCCLUSION W O CEREBRAL IN 03/21/2012 Ot 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 03/21/2012 Ot 577.1 CHRONIC PANCREATITIS 03/21/2012 Ot 780.2 SYNCOPE AND COLLAPSE 03/21/2012 Ot 786.50 CHEST PAIN NOS 03/21/2012 Ot V04.81 ND FOR PROPHYLACTIC VACCIN AND INOCULATI 03/21/2012 Ot V12.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, CEREBRAL INFARCTION 03/21/2012 Ot V15.81 HX OF PAST NONCOMPLIANCE 03/21/2012 Ot V15.88 HISTORY OF FALL 03/21/2012 Ot V45.82 PERCUTANEOUS TRANSLUM CORON ANGIOPLASTY 03/21/2012 Ot V58.67 LONG-TERM (CURRENT) USE OF INSULIN 03/25/2012 VALERIA DO, CACHORRO K 780.50 SLEEP DISTURBANCE, UNSPECIFIED 03/25/2012 SHAW DO, CACHORRO K 780.50 SLEEP DISTURBANCE, UNSPECIFIED 03/25/2012 780.50 SLEEP DISTURBANCE, UNSPECIFIED 03/25/2012 SHAW DO, CACHORRO K 780.50 SLEEP DISTURBANCE, UNSPECIFIED 03/25/2012 780.50 SLEEP DISTURBANCE, UNSPECIFIED 03/25/2012 780.50 SLEEP DISTURBANCE, UNSPECIFIED 03/25/2012 780.50 SLEEP DISTURBANCE, UNSPECIFIED 03/25/2012 SHAW DO, CACHORRO K 780.50 SLEEP DISTURBANCE, UNSPECIFIED 03/25/2012 SHAW DO, CACHORRO K 780.50 SLEEP DISTURBANCE, UNSPECIFIED 03/25/2012 SHAW DO, CACHORRO K 780.50 SLEEP DISTURBANCE, UNSPECIFIED 03/25/2012 SHAW DO, CACHORRO K 780.50 SLEEP DISTURBANCE, UNSPECIFIED 03/25/2012 SHAW DO, CACHORRO K 780.50 SLEEP DISTURBANCE, UNSPECIFIED 03/25/2012 SHAW , CACHORRO K 780.50 SLEEP DISTURBANCE, UNSPECIFIED 03/25/2012 JOLLY DELANEY MD 780.50 SLEEP DISTURBANCE, UNSPECIFIED 03/25/2012 SHAW DO, CACHORRO K 780.50 SLEEP DISTURBANCE, UNSPECIFIED 03/25/2012 SHAW DO, CACHORRO K 780.50 SLEEP DISTURBANCE, UNSPECIFIED 03/25/2012 SHAW DO, CACHORRO K 780.50 SLEEP DISTURBANCE, UNSPECIFIED 03/25/2012 VENUS PHD, JE Cabrera 780.50 SLEEP DISTURBANCE, UNSPECIFIED 03/25/2012 VENUS PHD, JE Cabrera 780.50 SLEEP DISTURBANCE, UNSPECIFIED 03/25/2012 SHAW DO, CACHORRO K 780.50 SLEEP DISTURBANCE, UNSPECIFIED 03/25/2012 ARSEN CONTRACT NEGOTIATION SPECIALISTSIMRAN Braun 780.50 SLEEP DISTURBANCE, UNSPECIFIED 03/25/2012 ARSEN CONTRACT NEGOTIATION SPECIALIST SIMRAN 780.50 SLEEP DISTURBANCE, UNSPECIFIED 03/25/2012 SHAW DO, CACHORRO K 780.50 SLEEP DISTURBANCE, UNSPECIFIED 03/25/2012 TANVIR JAMES, CLARIBEL Braun 780.50 SLEEP DISTURBANCE, UNSPECIFIED 03/25/2012 STEPHANIE CHRISTIANSEN APRN S 780.50 SLEEP DISTURBANCE, UNSPECIFIED 03/25/2012 JOLLY DELANEY MD 780.50 SLEEP DISTURBANCE, UNSPECIFIED 03/25/2012 STEPHANIE CHRISTIANSEN APRN S 780.50 SLEEP DISTURBANCE, UNSPECIFIED 09/09/2012 780.79 fatigue 09/09/2012 780.79 fatigue 09/09/2012 780.79 fatigue 09/09/2012 SHAW DO, CACHORRO K 780.79 fatigue 09/09/2012 SHAW DO, CACHORRO K 780.79 fatigue 09/09/2012 SHAW DO, CACHORRO K 780.79 fatigue 09/09/2012 SHAW DO, CACHORRO K 780.79 fatigue 09/09/2012 SHAW DO, CACHORRO K 780.79 fatigue 09/09/2012 SHAW DO, CACHORRO K 780.79 fatigue 09/09/2012 JOLLY DELANEY MD 780.79 fatigue 09/09/2012 SHAW DO, CACHORRO K 780.79 fatigue 09/09/2012 SHAW DO, CACHORRO K 780.79 fatigue 09/09/2012 SHAW DO, CACHORRO K 780.79 fatigue 09/09/2012 VENUS SUN, JE Cabrera 780.79 fatigue 09/09/2012 VENUS SUN, JE Cabrera 780.79 fatigue 09/09/2012 SHAW DO, CACHORRO K 780.79 fatigue 09/09/2012 ARSEN CONTRACT NEGOTIATION SPECIALIST, SIMRAN 780.79 fatigue 09/09/2012 ARSEN CONTRACT NEGOTIATION SPECIALISTIRQA BraunSIMRAN 780.79 fatigue 09/09/2012 SHAW DO, CACHORRO K 780.79 fatigue 09/09/2012 CLARIBEL RAMEY MD 780.79 fatigue 09/09/2012 PAULINA CHRISTAINSEN APRNA S 780.79 fatigue 09/09/2012 JOLLY DELANEY MD 780.79 fatigue 09/09/2012 ЕЛЕНА MUÑOZ, STEPHANIE S 780.79 fatigue 11/02/2012 SHAW DO, CACHORRO K 715.16 OSTEOARTHROSIS LOCALIZED PRIMARY INVOLVING LOWER LEG 11/02/2012 SHAW DO, CACHORRO K 724.79 OTHER DISORDERS OF COCCYX 11/02/2012 SHAW DO, CACHORRO K 715.16 OSTEOARTHROSIS LOCALIZED PRIMARY INVOLVING LOWER LEG 11/02/2012 SHAW DO, CACHORRO K 724.79 OTHER DISORDERS OF COCCYX 11/02/2012 SHAW DO, CACHORRO K 715.16 OSTEOARTHROSIS LOCALIZED PRIMARY INVOLVING LOWER LEG 11/02/2012 SHAW DO, CACHORRO K 724.79 OTHER DISORDERS OF COCCYX 11/02/2012 SHAW DO, CACHORRO K 715.16 OSTEOARTHROSIS LOCALIZED PRIMARY INVOLVING LOWER LEG 11/02/2012 SHAW DO, CACHORRO K 724.79 OTHER DISORDERS OF COCCYX 11/02/2012 SHAW DO, CACHORRO K 715.16 OSTEOARTHROSIS LOCALIZED PRIMARY INVOLVING LOWER LEG 11/02/2012 SHAW DO, CACHORRO K 724.79 OTHER DISORDERS OF COCCYX 11/02/2012 SHAW DO, CACHORRO K 715.16 OSTEOARTHROSIS LOCALIZED PRIMARY INVOLVING LOWER LEG 11/02/2012 SHAW DO, CACHORRO K 724.79 OTHER DISORDERS OF COCCYX 11/02/2012 JOLLY DELANEY MD 715.16 OSTEOARTHROSIS LOCALIZED PRIMARY INVOLVING LOWER LEG 11/02/2012 JOLLY DELANEY MD 724.79 OTHER DISORDERS OF COCCYX 11/02/2012 SHAW DO, CACHORRO K 715.16 OSTEOARTHROSIS LOCALIZED PRIMARY INVOLVING LOWER LEG 11/02/2012 SHAW DO, CACHORRO K 724.79 OTHER DISORDERS OF COCCYX 11/02/2012 SHAW DO, CACHORRO K 715.16 OSTEOARTHROSIS LOCALIZED PRIMARY INVOLVING LOWER LEG 11/02/2012 SHAW DO, CACHORRO K 724.79 OTHER DISORDERS OF COCCYX 11/02/2012 CACHORRO SHAW DO 715.16 OSTEOARTHROSIS LOCALIZED PRIMARY INVOLVING LOWER LEG 11/02/2012 CACHORRO SHAW DO K 724.79 OTHER DISORDERS OF COCCYX 11/02/2012 JE DONOVAN PHD 715.16 OSTEOARTHROSIS LOCALIZED PRIMARY INVOLVING LOWER LEG 11/02/2012 JE DONOVAN PHD 724.79 OTHER DISORDERS OF COCCYX 11/02/2012 JE DONOVAN PHD 715.16 OSTEOARTHROSIS LOCALIZED PRIMARY INVOLVING LOWER LEG 11/02/2012 JE DONOVAN PHD 724.79 OTHER DISORDERS OF COCCYX 11/02/2012 CACHORRO SHAW DO K 715.16 OSTEOARTHROSIS LOCALIZED PRIMARY INVOLVING LOWER LEG 11/02/2012 SUMIT SHAW DOA K 724.79 OTHER DISORDERS OF COCCYX 11/02/2012 ARSEN CONTRACT NEGOTIATION SPECIALIST, SIMRAN 715.16 OSTEOARTHROSIS LOCALIZED PRIMARY INVOLVING LOWER LEG 11/02/2012 ARSEN CONTRACT NEGOTIATION SPECIALIST, SIMRAN 724.79 OTHER DISORDERS OF COCCYX 11/02/2012 ARSEN CONTRACT NEGOTIATION SPECIALIST, SIMRAN 715.16 OSTEOARTHROSIS LOCALIZED PRIMARY INVOLVING LOWER LEG 11/02/2012 ARSEN CONTRACT NEGOTIATION SPECIALIST, SIMRAN 724.79 OTHER DISORDERS OF COCCYX 11/02/2012 CACHORRO SHAW DO K 715.16 OSTEOARTHROSIS LOCALIZED PRIMARY INVOLVING LOWER LEG 11/02/2012 CACHORRO SHAW DO K 724.79 OTHER DISORDERS OF COCCYX 11/02/2012 CLARIBEL RAMEY MD 715.16 OSTEOARTHROSIS LOCALIZED PRIMARY INVOLVING LOWER LEG 11/02/2012 CLARIBEL RAMEY MD N 724.79 OTHER DISORDERS OF COCCYX 11/02/2012 ALBERT CHRISTIANSEN APRNNDA S 715.16 OSTEOARTHROSIS LOCALIZED PRIMARY INVOLVING LOWER LEG 11/02/2012 ЕЛЕНА MUÑOZ STEPHANIE S 724.79 OTHER DISORDERS OF COCCYX 11/02/2012 JOLLY DELANEY MD 715.16 OSTEOARTHROSIS LOCALIZED PRIMARY INVOLVING LOWER LEG 11/02/2012 JOLLY DELANEY MD 724.79 OTHER DISORDERS OF COCCYX 11/02/2012 ЕЛЕНА MUÑOZ STEPHANIE S 715.16 OSTEOARTHROSIS LOCALIZED PRIMARY INVOLVING LOWER LEG 11/02/2012 ЕЛЕНА MUÑOZ STEPHANIE S 724.79 OTHER DISORDERS OF COCCYX 11/06/2012 YOLY DURBIN MD Ot 786.52 PAINFUL RESPIRATION 11/06/2012 YOLY DURBIN MD Ot E000.8 OTHER EXTERNAL CAUSE STATUS 11/06/2012 YOYL DURBIN MD Ot E888.1 FALL STRIKING OBJECT NEC 01/19/2013 CACHORRO SHAW DO 728.87 MUSCLE WEAKNESS (GENERALIZED) 01/19/2013 VALERIA CASH CACHORRO K 782.0 DISTURBANCE OF SKIN SENSATION 01/19/2013 VALERIA CASH CACHORRO K V15.81 PERSONAL HISTORY OF NONCOMPLIANCE WITH MEDICAL TREATMENT PRESENTING HAZARDS TO HEALTH 01/19/2013 VALERIA CASH CACHORRO K 728.87 MUSCLE WEAKNESS (GENERALIZED) 01/19/2013 VALERIA CASH CACHORRO K 782.0 DISTURBANCE OF SKIN SENSATION 01/19/2013 VALERIA CASH CACHORRO K V15.81 PERSONAL HISTORY OF NONCOMPLIANCE WITH MEDICAL TREATMENT PRESENTING HAZARDS TO HEALTH 01/19/2013 SUMIT SHAW DOA K 728.87 MUSCLE WEAKNESS (GENERALIZED) 01/19/2013 VALERIA CASH CACHORRO K 782.0 DISTURBANCE OF SKIN SENSATION 01/19/2013 VALERIA CASH CACHORRO K V15.81 PERSONAL HISTORY OF NONCOMPLIANCE WITH MEDICAL TREATMENT PRESENTING HAZARDS TO HEALTH 01/19/2013 VALERIA CASH CACHORRO K 728.87 MUSCLE WEAKNESS (GENERALIZED) 01/19/2013 VALERIA CASH CACHORRO K 782.0 DISTURBANCE OF SKIN SENSATION 01/19/2013 SUMIT SHAW DOA K V15.81 PERSONAL HISTORY OF NONCOMPLIANCE WITH MEDICAL TREATMENT PRESENTING HAZARDS TO HEALTH 01/19/2013 VALERIA CASH CACHORRO K 728.87 MUSCLE WEAKNESS (GENERALIZED) 01/19/2013 SUMIT SHAW DOA K 782.0 DISTURBANCE OF SKIN SENSATION 01/19/2013 SUMIT SHAW DOA K V15.81 PERSONAL HISTORY OF NONCOMPLIANCE WITH MEDICAL TREATMENT PRESENTING HAZARDS TO HEALTH 01/19/2013 JOLLY DELANEY MD 728.87 MUSCLE WEAKNESS (GENERALIZED) 01/19/2013 JOLLY DELANEY MD 782.0 DISTURBANCE OF SKIN SENSATION 01/19/2013 JOLLY DELANEY MD V15.81 PERSONAL HISTORY OF NONCOMPLIANCE WITH MEDICAL TREATMENT PRESENTING HAZARDS TO HEALTH 01/19/2013 SUMIT SHAW DOA K 728.87 MUSCLE WEAKNESS (GENERALIZED) 01/19/2013 SUMIT SHAW DOA K 782.0 DISTURBANCE OF SKIN SENSATION 01/19/2013 SUMIT SHAW DOA K V15.81 PERSONAL HISTORY OF NONCOMPLIANCE WITH MEDICAL TREATMENT PRESENTING HAZARDS TO HEALTH 01/19/2013 SHAW SUMIT CASHA K 728.87 MUSCLE WEAKNESS (GENERALIZED) 01/19/2013 VALERIA SUMIT CASHA K 782.0 DISTURBANCE OF SKIN SENSATION 01/19/2013 VALERIA SUMIT CASHA K V15.81 PERSONAL HISTORY OF NONCOMPLIANCE WITH MEDICAL TREATMENT PRESENTING HAZARDS TO HEALTH 01/19/2013 SHAW CACHORRO CASH K 728.87 MUSCLE WEAKNESS (GENERALIZED) 01/19/2013 VALERIA DO CACHORRO K 782.0 DISTURBANCE OF SKIN SENSATION 01/19/2013 VALERIA SUMIT CASHA K V15.81 PERSONAL HISTORY OF NONCOMPLIANCE WITH MEDICAL TREATMENT PRESENTING HAZARDS TO HEALTH 01/19/2013 JE DONOVAN PHD 728.87 MUSCLE WEAKNESS (GENERALIZED) 01/19/2013 JE DONOVAN PHD 782.0 DISTURBANCE OF SKIN SENSATION 01/19/2013 JE DONOVAN PHD V15.81 PERSONAL HISTORY OF NONCOMPLIANCE WITH MEDICAL TREATMENT PRESENTING HAZARDS TO HEALTH 01/19/2013 JE DONOVAN PHD 728.87 MUSCLE WEAKNESS (GENERALIZED) 01/19/2013 JE DONOVAN PHD 782.0 DISTURBANCE OF SKIN SENSATION 01/19/2013 JE DONOVAN PHD V15.81 PERSONAL HISTORY OF NONCOMPLIANCE WITH MEDICAL TREATMENT PRESENTING HAZARDS TO HEALTH 01/19/2013 CACHORRO SHAW DO 728.87 MUSCLE WEAKNESS (GENERALIZED) 01/19/2013 VALERIA SUMIT CASHA K 782.0 DISTURBANCE OF SKIN SENSATION 01/19/2013 SHAW SUMIT CASHA K V15.81 PERSONAL HISTORY OF NONCOMPLIANCE WITH MEDICAL TREATMENT PRESENTING HAZARDS TO HEALTH 01/19/2013 ARSEN CONTRACT NEGOTIATION SPECIALIST, SIMRAN 728.87 MUSCLE WEAKNESS (GENERALIZED) 01/19/2013 ARSEN CONTRACT NEGOTIATION SPECIALIST, SIMRAN 782.0 DISTURBANCE OF SKIN SENSATION 01/19/2013 ARSEN CONTRACT NEGOTIATION SPECIALIST, SIMRAN V15.81 PERSONAL HISTORY OF NONCOMPLIANCE WITH MEDICAL TREATMENT PRESENTING HAZARDS TO HEALTH 01/19/2013 ARSEN CONTRACT NEGOTIATION SPECIALIST, SIMRAN 728.87 MUSCLE WEAKNESS (GENERALIZED) 01/19/2013 ARSEN CONTRACT NEGOTIATION SPECIALIST, SIMRAN 782.0 DISTURBANCE OF SKIN SENSATION 01/19/2013 ARSEN CONTRACT NEGOTIATION SPECIALIST, SIMRAN V15.81 PERSONAL HISTORY OF NONCOMPLIANCE WITH MEDICAL TREATMENT PRESENTING HAZARDS TO HEALTH 01/19/2013 SHAW DO CACHORRO K 728.87 MUSCLE WEAKNESS (GENERALIZED) 01/19/2013 SHAW DO CACHORRO K 782.0 DISTURBANCE OF SKIN SENSATION 01/19/2013 SHAW DO CACHORRO K V15.81 PERSONAL HISTORY OF NONCOMPLIANCE WITH MEDICAL TREATMENT PRESENTING HAZARDS TO HEALTH 01/19/2013 CLARIBEL RAMEY MD 728.87 MUSCLE WEAKNESS (GENERALIZED) 01/19/2013 CLARIBEL RAMEY MD N 782.0 DISTURBANCE OF SKIN SENSATION 01/19/2013 CLARIBEL RAMEY MD V15.81 PERSONAL HISTORY OF NONCOMPLIANCE WITH MEDICAL TREATMENT PRESENTING HAZARDS TO HEALTH 01/19/2013 STEPHANIE CHRISTIANSEN APRN S 728.87 MUSCLE WEAKNESS (GENERALIZED) 01/19/2013 STEPHANIE CHRISTIANSEN APRN S 782.0 DISTURBANCE OF SKIN SENSATION 01/19/2013 STEPHANIE CHRISTIANSEN APRN S V15.81 PERSONAL HISTORY OF NONCOMPLIANCE WITH MEDICAL TREATMENT PRESENTING HAZARDS TO HEALTH 01/19/2013 JOLLY DELANEY MD 728.87 MUSCLE WEAKNESS (GENERALIZED) 01/19/2013 JOLLY DELANEY MD 782.0 DISTURBANCE OF SKIN SENSATION 01/19/2013 JOLLY DELANEY MD V15.81 PERSONAL HISTORY OF NONCOMPLIANCE WITH MEDICAL TREATMENT PRESENTING HAZARDS TO HEALTH 01/19/2013 STEPHANIE CHRISTIANSEN APRN S 728.87 MUSCLE WEAKNESS (GENERALIZED) 01/19/2013 STEPHANIE CHRISTIANSEN APRN S 782.0 DISTURBANCE OF SKIN SENSATION 01/19/2013 STEPHANIE CHRISTIANSEN APRN S V15.81 PERSONAL HISTORY OF NONCOMPLIANCE WITH MEDICAL TREATMENT PRESENTING HAZARDS TO HEALTH 01/26/2013 SHAW DO, CACHORRO K 724.5 BACK PAIN, GENERAL 02/02/2013 SHAW DO, CACHORRO K 724.5 BACK PAIN, GENERAL 02/02/2013 SHAW DO, CACHORRO K 724.5 BACK PAIN, GENERAL 02/02/2013 SHAW DO, CACHORRO K 724.5 BACK PAIN, GENERAL 02/02/2013 SHAW DO, CACHORRO K 724.5 BACK PAIN, GENERAL 02/02/2013 SHAW DO, CACHORRO K 724.5 BACK PAIN, GENERAL 02/02/2013 JOLLY DELANEY MD 724.5 BACK PAIN, GENERAL 02/02/2013 SHAW DO, CACHORRO K 724.5 BACK PAIN, GENERAL 02/02/2013 SHAW DO, CACHORRO K 724.5 BACK PAIN, GENERAL 02/02/2013 SHAW DO, CACHORRO K 724.5 BACK PAIN, GENERAL 02/02/2013 VNEUS PHD, JE Cabrera 724.5 BACK PAIN, GENERAL 02/02/2013 VENUS PHD, JE Cabrera 724.5 BACK PAIN, GENERAL 02/02/2013 SHAW DO, CACHORRO K 724.5 BACK PAIN, GENERAL 02/02/2013 ARSEN CONTRACT NEGOTIATION SPECIALIST, SIMRAN 724.5 BACK PAIN, GENERAL 02/02/2013 ARSEN CONTRACT NEGOTIATION SPECIALIST, SIMRAN 724.5 BACK PAIN, GENERAL 02/02/2013 SHAW DO, CACHORRO K 724.5 BACK PAIN, GENERAL 02/02/2013 TANVIR JAMES, CLARIBEL Braun 724.5 BACK PAIN, GENERAL 02/02/2013 ЕЛЕНА CONTRACT NEGOTIATION SPECIALIST, STEPHANIE S 724.5 BACK PAIN, GENERAL 02/02/2013 JOLLY DELANEY MD 724.5 BACK PAIN, GENERAL 02/02/2013 ЕЛЕНА CONTRACT NEGOTIATION SPECIALIST, STEPHANIE S 724.5 BACK PAIN, GENERAL 02/16/2013 BRIAN HUGO CONTRACT NEGOTIATION SPECIALIST Ot 465.9 ACUTE URI NOS 02/16/2013 BRIAN HUGO CONTRACT NEGOTIATION SPECIALIST Ot 719.41 JOINT PAIN-SHLDER 06/03/2013 SHAW DO, CACHORRO K 285.9 ANEMIA 06/03/2013 SHAW DO, CACHORRO K 285.9 ANEMIA 06/03/2013 SHAW DO, CACHORRO K 285.9 ANEMIA 06/03/2013 JOLLY DELANEY MD 285.9 ANEMIA 06/03/2013 SHAW DO, CACHORRO K 285.9 ANEMIA 06/03/2013 SHAW DO, CACHORRO K 285.9 ANEMIA 06/03/2013 SHAW DO, CACHORRO K 285.9 ANEMIA 06/03/2013 VENUS PHD, JE Cabrera 285.9 ANEMIA 06/03/2013 VENUS SUN, JE Cabrera 285.9 ANEMIA 06/03/2013 SHAW DO, CACHORRO K 285.9 ANEMIA 06/03/2013 ARSEN CONTRACT NEGOTIATION SPECIALIST, SIMRAN 285.9 ANEMIA 06/03/2013 ARSEN CONTRACT NEGOTIATION SPECIALIST, SIMRAN 285.9 ANEMIA 06/03/2013 SHAW DO, CACHORRO K 285.9 ANEMIA 06/03/2013 TANVIR JAMES, CLARIBEL N 285.9 ANEMIA 06/03/2013 STEPHANIE CHRISTIANSEN APRN S 285.9 ANEMIA 06/03/2013 ELAINA JAMES, JOLLY 285.9 ANEMIA 06/03/2013 STEPHANIE CHRISTIANSEN APRN S 285.9 ANEMIA 06/23/2013 BRIAN HUGO CONTRACT NEGOTIATION SPECIALIST Ot 305.50 OPIOID ABUSE-UNSPEC 06/23/2013 BRIAN HUGO CONTRACT NEGOTIATION SPECIALIST Ot 780.97 ALTERED MENTAL STATUS 06/28/2013 VALERIA CASH CACHORRO K Ot 244.9 HYPOTHYROIDISM NOS 06/28/2013 VALERIA CASH CACHORRO K Ot 250.60 DIAB W NEURO MANIFEST, TYPE II OR UNSPEC 06/28/2013 VALERIA CASH CACHORRO K Ot 275.2 DIS MAGNESIUM METABOLISM 06/28/2013 VALERIA CASH CACHORRO K Ot 276.1 HYPOSMOLALITY 06/28/2013 SUMIT SHAW DOA K Ot 276.8 HYPOPOTASSEMIA 06/28/2013 SUMIT SHAW DOA K Ot 300.00 ANXIETY STATE NOS 06/28/2013 SUMIT SHAW DOA K Ot 305.1 TOBACCO USE DISORDER 06/28/2013 VALERIA CASH CACHORRO K Ot 305.90 DRUG ABUSE NEC-UNSPEC 06/28/2013 VALERIA CASH CACHORRO K Ot 311 DEPRESSIVE DISORDER NEC 06/28/2013 VALERIA CASH CACHORRO K Ot 345.90 EPILEPSY UNSPEC W/O MENTION INTRACTABLE 06/28/2013 SUMIT SHAW DOA K Ot 349.82 TOXIC ENCEPHALOPATHY 06/28/2013 SUMIT SHAW DOA K Ot 357.2 NEUROPATHY IN DIABETES 06/28/2013 SUMIT SHAW DOA K Ot 401.9 HYPERTENSION NOS 06/28/2013 SUMIT SHAW DOA K Ot 414.01 CORONARY ATHEROSCLEROSIS OF JENA CORON 06/28/2013 SUMIT SHAW DOA K Ot 433.10 CAROTID ARTERY OCCLUSION W O CEREBRAL IN 06/28/2013 SUMIT SHAW DOA K Ot 496 CHR AIRWAY OBSTRUCT NEC 06/28/2013 SUMIT SHAW DOA K Ot 518.81 ACUTE RESPIRATORY FAILURE 06/28/2013 VALERIA CASH CACHORRO K Ot 716.90 ARTHROPATHY NOS-UNSPEC 06/28/2013 SUMIT SHAW DOA K Ot 722.6 DISC DEGENERATION NOS 06/28/2013 SUMIT SHWA DOA K Ot 965.02 POISONING-METHADONE 06/28/2013 SUMIT SHAW DOA K Ot 969.4 POIS-BENZODIAZEPINE OVALLE 06/28/2013 CACHORRO SHAW DO Ot E849.0 ACCIDENT IN HOME 06/28/2013 CACHORRO SHAW DO Ot E850.1 ACC POISON-METHADONE 06/28/2013 CACHORRO SHAW DO Ot E853.2 ACC POISN-BENZDIAZ TRANQ 06/28/2013 CACHORRO SHAW DO Ot V12.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, CEREBRAL INFARCTION 06/28/2013 CACHORRO SHAW DO Ot V12.79 PERSONAL HISTORY OTH SPEC DIGESTIVE SYST 06/28/2013 CACHORRO SHAW DO Ot V15.81 HX OF PAST NONCOMPLIANCE 06/28/2013 CACHORRO SHAW DO Ot V45.82 PERCUTANEOUS TRANSLUM CORON ANGIOPLASTY 06/28/2013 VALERIA CASH CACHORRO Ric Ot V58.67 LONG-TERM (CURRENT) USE OF INSULIN 07/19/2013 VALERIA CASH CACHORRO K 276.1 HYPONATREMIA 07/19/2013 CACHORRO SHAW DO 790.6 ABNORMAL LFT (LIVER FUNCTION TEST) 07/19/2013 JOLLY DELANEY MD 276.1 HYPONATREMIA 07/19/2013 JOLLY DELANEY MD 790.6 ABNORMAL LFT (LIVER FUNCTION TEST) 07/19/2013 CACHORRO SHAW DO K 276.1 HYPONATREMIA 07/19/2013 CACHORRO SHAW DO K 790.6 ABNORMAL LFT (LIVER FUNCTION TEST) 07/19/2013 SHAW CACHORRO CASH K 276.1 HYPONATREMIA 07/19/2013 SHAW DO CACHORRO K 790.6 ABNORMAL LFT (LIVER FUNCTION TEST) 07/19/2013 CACHORRO SHAW DO K 276.1 HYPONATREMIA 07/19/2013 VALERIA CASH CACHORRO K 790.6 ABNORMAL LFT (LIVER FUNCTION TEST) 07/19/2013 VENUS PHD, JE Cabrera 276.1 HYPONATREMIA 07/19/2013 JE DONOVAN PHD 790.6 ABNORMAL LFT (LIVER FUNCTION TEST) 07/19/2013 JE DONOVAN PHD 276.1 HYPONATREMIA 07/19/2013 JE DONOVAN PHD 790.6 ABNORMAL LFT (LIVER FUNCTION TEST) 07/19/2013 CACHORRO SHAW DO K 276.1 HYPONATREMIA 07/19/2013 CACHORRO SHAW DO K 790.6 ABNORMAL LFT (LIVER FUNCTION TEST) 07/19/2013 ARSEN CONTRACT NEGOTIATION SPECIALIST, SIMRAN 276.1 HYPONATREMIA 07/19/2013 ARSEN CONTRACT NEGOTIATION SPECIALIST, SIMRAN 790.6 ABNORMAL LFT (LIVER FUNCTION TEST) 07/19/2013 ARSEN CONTRACT NEGOTIATION SPECIALIST, SIMRAN 276.1 HYPONATREMIA 07/19/2013 ARSEN CONTRACT NEGOTIATION SPECIALIST, SIMRAN 790.6 ABNORMAL LFT (LIVER FUNCTION TEST) 07/19/2013 SHAW DO, CACHORRO K 276.1 HYPONATREMIA 07/19/2013 SHAW DO, CACHORRO K 790.6 ABNORMAL LFT (LIVER FUNCTION TEST) 07/19/2013 CLARIBEL RAMEY MD 276.1 HYPONATREMIA 07/19/2013 CLARIBEL RAMEY MD 790.6 ABNORMAL LFT (LIVER FUNCTION TEST) 07/19/2013 PAULINA CHRISTIANSEN APRNA S 276.1 HYPONATREMIA 07/19/2013 ЕЛЕНА MUÑOZ STEPHANIE S 790.6 ABNORMAL LFT (LIVER FUNCTION TEST) 07/19/2013 JOLLY DELANEY MD 276.1 HYPONATREMIA 07/19/2013 JOLLY DELANEY MD 790.6 ABNORMAL LFT (LIVER FUNCTION TEST) 07/19/2013 ЕЛЕНА MUÑOZ STEPHANIE S 276.1 HYPONATREMIA 07/19/2013 PAULINA CHRISTIANSEN APRNA S 790.6 ABNORMAL LFT (LIVER FUNCTION TEST) 08/27/2013 YOLY DURBIN MD K Ot 250.80 DIAB W OTH SPEC MANIFEST, TYPE II OR UNS 09/04/2013 CAROL CARRILLO MD Ot 250.80 DIAB W OTH SPEC MANIFEST, TYPE II OR UNS 09/10/2013 EMELIA BORJAS Ot 244.9 HYPOTHYROIDISM NOS 09/10/2013 EMELIA BORJAS Ot 250.00 DIAB KYLE WO COMPL, TYPE II OR UNSPEC TY 09/10/2013 EMELIA BORJAS Ot 272.0 PURE HYPERCHOLESTEROLEM 09/10/2013 EMELIA BORJAS Ot 276.1 HYPOSMOLALITY 09/10/2013 EMELIA BORJAS Ot 300.00 ANXIETY STATE NOS 09/10/2013 EMELIA BORJAS Ot 305.1 TOBACCO USE DISORDER 09/10/2013 EMELIA BORJAS Ot 355.9 MONONEURITIS NOS 09/10/2013 EMELIA BORJAS Ot 401.9 HYPERTENSION NOS 09/10/2013 EMELIA BORJAS Ot 412 OLD MYOCARDIAL INFARCT 09/10/2013 EMELIA BORJAS Ot 440.24 ATHEROSCL JENA ARTERIES EXTREMITIES W 09/10/2013 EMELIA BORJAS Ot 496 CHR AIRWAY OBSTRUCT NEC 09/10/2013 EMELIA BORJAS Ot 700 CORNS AND CALLOSITIES 09/10/2013 EMELIA BORJAS Ot 716.90 ARTHROPATHY NOS-UNSPEC 09/10/2013 EMELIA BORJAS Ot 722.6 DISC DEGENERATION NOS 09/10/2013 EMELIA BORJAS Ot 785.4 GANGRENE 09/10/2013 EMELIA BORJAS Ot V12.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, CEREBRAL INFARCTION 09/10/2013 EMELIA BORJAS Ot V45.82 PERCUTANEOUS TRANSLUM CORON ANGIOPLASTY 10/08/2013 CACHORRO SHAW DO V49.72 OTHER TOE(S) AMPUTATION STATUS 10/08/2013 CACHORRO SHAW DO V49.72 OTHER TOE(S) AMPUTATION STATUS 10/08/2013 CACHORRO SHAW DO V49.72 OTHER TOE(S) AMPUTATION STATUS 10/08/2013 JE DONOVAN PHD V49.72 OTHER TOE(S) AMPUTATION STATUS 10/08/2013 JE DONOVAN PHD V49.72 OTHER TOE(S) AMPUTATION STATUS 10/08/2013 CACHORRO SHAW DO V49.72 OTHER TOE(S) AMPUTATION STATUS 10/08/2013 SIMRAN LEGER APRN V49.72 OTHER TOE(S) AMPUTATION STATUS 10/08/2013 SIMRAN LEGER APRN V49.72 OTHER TOE(S) AMPUTATION STATUS 10/08/2013 CACHORRO SHAW DO V49.72 OTHER TOE(S) AMPUTATION STATUS 10/08/2013 TANVIR JAMES, CLARIBEL Braun V49.72 OTHER TOE(S) AMPUTATION STATUS 10/08/2013 STEPHANIE CHRISTIANSEN APRN V49.72 OTHER TOE(S) AMPUTATION STATUS 10/08/2013 ELAINA JAMES, JOLLY V49.72 OTHER TOE(S) AMPUTATION STATUS 10/08/2013 STEPHANIE CHRISTIANSEN APRN V49.72 OTHER TOE(S) AMPUTATION STATUS 11/02/2013 VENUS SUN, JE Cabrera 294.9 OR COG DIS NOS 11/02/2013 VENUS SUN, JE Cabrera 294.9 OR COG DIS NOS 11/02/2013 CACHORRO SHAW DO K 294.9 OR COG DIS NOS 11/02/2013 SIMRAN LEGER APRN 294.9 OR COG DIS NOS 11/02/2013 SIMRAN LEGER APRN 294.9 OR COG DIS NOS 11/02/2013 CACHORRO SHAW DO K 294.9 OR COG DIS NOS 11/02/2013 TANVIR JAMES, CLARIBEL Braun 294.9 OR COG DIS NOS 11/02/2013 STEPHANIE CHRISTIANSEN APRN S 294.9 OR COG DIS NOS 11/02/2013 JOLLY DELANEY MD 294.9 OR COG DIS NOS 11/02/2013 STEPHANIE CHRISTIANSEN APRN S 294.9 OR COG DIS NOS 12/17/2013 SIMRAN LEGER APRN 296.33 MO DEPRESSIVE RECURRENT SEVERE W/O PSYCHOTIC BEHAVIOR 12/17/2013 SIMRAN LEGER APRN 296.33 MO DEPRESSIVE RECURRENT SEVERE W/O PSYCHOTIC BEHAVIOR 12/17/2013 CACHORRO SHAW DO K 296.33 MO DEPRESSIVE RECURRENT SEVERE W/O PSYCHOTIC BEHAVIOR 12/17/2013 CLARIBEL RAMEY MD 296.33 MO DEPRESSIVE RECURRENT SEVERE W/O PSYCHOTIC BEHAVIOR 12/17/2013 STEPHANIE CHRISTIANSEN APRN S 296.33 MO DEPRESSIVE RECURRENT SEVERE W/O PSYCHOTIC BEHAVIOR 12/17/2013 JOLLY DELANEY MD 296.33 MO DEPRESSIVE RECURRENT SEVERE W/O PSYCHOTIC BEHAVIOR 12/17/2013 STEPHANIE CHRISTIANSEN APRN S 296.33 MO DEPRESSIVE RECURRENT SEVERE W/O PSYCHOTIC BEHAVIOR 01/06/2014 CACHORRO SHAW DO Ot 244.9 HYPOTHYROIDISM NOS 01/06/2014 CACHORRO SHAW DO Ot 250.00 DIAB KYLE WO COMPL, TYPE II OR UNSPEC TY 01/06/2014 CACHORRO SHAW DO Ot 272.0 PURE HYPERCHOLESTEROLEM 01/06/2014 CACHORRO SHAW DO K Ot 276.1 HYPOSMOLALITY 01/06/2014 CACHORRO SHAW DO Ot 300.00 ANXIETY STATE NOS 01/06/2014 SUMIT SHAW DOA Ric Ot 305.00 ALCOHOL ABUSE-UNSPEC 01/06/2014 CACHORRO SHAW DO Ot 305.1 TOBACCO USE DISORDER 01/06/2014 CACHORRO SHAW DO Ot 305.50 OPIOID ABUSE-UNSPEC 01/06/2014 CACHORRO SHAW DO Ot 345.90 EPILEPSY UNSPEC W/O MENTION INTRACTABLE 01/06/2014 CACHORRO SHAW DO Ot 401.9 HYPERTENSION NOS 01/06/2014 CACHORRO SHAW DO Ot 412 OLD MYOCARDIAL INFARCT 01/06/2014 CACHORRO SHAW DO Ot 414.01 CORONARY ATHEROSCLEROSIS OF JENA CORON 01/06/2014 CACHORRO SHAW DO Ot 414.8 CHR ISCHEMIC HRT DIS NEC 01/06/2014 CACHORRO SHAW DO Ot 433.10 CAROTID ARTERY OCCLUSION W O CEREBRAL IN 01/06/2014 CACHORRO SHAW DO Ot 433.30 MULT BILTRAL ARTERY OCCLUSION WO CEREBRA 01/06/2014 CACHORRO SHAW DO Ot 438.89 OTH LATE EFFECT-CEREBROVASCULAR DISEASE 01/06/2014 CACHORRO SHAW DO Ot 440.20 ATHEROSCLEROSIS JENA ARTERIES EXTREMIT 01/06/2014 CACHORRO SHAW DO Ot 724.5 BACKACHE NOS 01/06/2014 CACHORRO SHAW DO Ot 728.87 MUSCLE WEAKNESS (GENERALIZED) 01/06/2014 CACHORRO SHAW DO Ot 733.14 PATHOLOGIC FRACTURE, NECK OF FEMUR 01/06/2014 CACHORRO SHAW DO Ot 780.97 ALTERED MENTAL STATUS 01/06/2014 CACHORRO SHAW DO Ot V03.82 PROPHYLACTIC VACC AGAINST STREPTOCOCCUS 01/06/2014 CACHORRO SHAW DO Ot V15.81 HX OF PAST NONCOMPLIANCE 01/06/2014 CACHORRO SHAW DO Ot V45.82 PERCUTANEOUS TRANSLUM CORON ANGIOPLASTY 01/06/2014 CACHORRO SHAW DO Ot V49.72 OTHER TOE(S) AMPUTATION STATUS 01/06/2014 CACHORRO SHAW DO Ot V58.67 LONG-TERM (CURRENT) USE OF INSULIN 01/20/2014 CLARIBEL RAMEY MD Ot 244.9 HYPOTHYROIDISM NOS 01/20/2014 CLARIBEL RAMEY MD Ot 250.02 DIAB KYLE WO COMPL, TYPE II OR UNSPEC TY 01/20/2014 CLARIBEL RAMEY MD Ot 276.1 HYPOSMOLALITY 01/20/2014 CLARIBEL RAMEY MD Ot 305.1 TOBACCO USE DISORDER 01/20/2014 CLARIBEL RAMEY MD Ot 345.90 EPILEPSY UNSPEC W/O MENTION INTRACTABLE 01/20/2014 CLARIBEL RAMEY MD Ot 412 OLD MYOCARDIAL INFARCT 01/20/2014 CLARIBEL RAMEY MD Ot 414.01 CORONARY ATHEROSCLEROSIS OF JENA CORON 01/20/2014 CLARIBEL RAMEY MD Ot 433.10 CAROTID ARTERY OCCLUSION W O CEREBRAL IN 01/20/2014 CLARIBEL RAMEY MD Ot 433.30 MULT BILTRAL ARTERY OCCLUSION WO CEREBRA 01/20/2014 CLARIBEL RAMEY MD Ot 438.89 OTH LATE EFFECT-CEREBROVASCULAR DISEASE 01/20/2014 CLARIBEL RAMEY MD Ot 440.20 ATHEROSCLEROSIS JENA ARTERIES EXTREMIT 01/20/2014 CLARIBEL RAMEY MD Ot 728.87 MUSCLE WEAKNESS (GENERALIZED) 01/20/2014 CLARIBEL RAMEY MD Ot V03.82 PROPHYLACTIC VACC AGAINST STREPTOCOCCUS 01/20/2014 CLARIBEL RAMEY MD Ot V04.81 ND FOR PROPHYLACTIC VACCIN AND INOCULATI 01/20/2014 CLARIBEL RAMEY MD Ot V13.51 PERSONAL HISTORY OF PATHOLOGIC FRACTURE 01/20/2014 CLARIBEL RAMEY MD Ot V15.81 HX OF PAST NONCOMPLIANCE 01/20/2014 CLARIBEL RAMEY MD Ot V58.67 LONG-TERM (CURRENT) USE OF INSULIN 02/03/2014 CAROL STRICKLAND Ot 304.00 OPIOID DEPENDENCE-UNSPEC 02/03/2014 CAROL STRICKLAND Ot 707.15 ULCER OF OTHER PART OF FOOT 02/03/2014 CAROL STRICKLAND Ot V49.72 OTHER TOE(S) AMPUTATION STATUS 02/03/2014 CAROL STRICKLAND Ot V58.69 OTH MED,LT,CURRENT USE 04/20/2014 ELAINA JAMES, JOLLY 304.90 UNSPECIFIED DRUG DEPENDENCE UNSPECIFIED USE 04/20/2014 STEPHANIE CHRISTIANSEN APRN 304.90 UNSPECIFIED DRUG DEPENDENCE UNSPECIFIED USE 06/15/2014 STEPHANIE CHRISTIANSEN APRN V15.82 NICOTINE ABUSE 09/09/2014 TASIA CONWAY MD Ot 244.9 HYPOTHYROIDISM NOS 09/09/2014 TASIA CONWAY MD Ot 250.00 DIAB KYLE WO COMPL, TYPE II OR UNSPEC TY 09/09/2014 TASIA CONWAY MD Ot 298.9 PSYCHOSIS NOS 09/09/2014 TASIA CONWAY MD Ot 305.1 TOBACCO USE DISORDER 09/09/2014 TASIA CONWAY MD Ot 496 CHR AIRWAY OBSTRUCT NEC 09/09/2014 TASIA CONWAY MD Ot 799.3 DEBILITY NOS 09/09/2014 TASIA CONWAY MD Ot V58.67 LONG-TERM (CURRENT) USE OF INSULIN 09/22/2014 BRIAN HUGO CONTRACT NEGOTIATION SPECIALIST Ot 244.9 HYPOTHYROIDISM NOS 09/22/2014 BRIAN HUGO CONTRACT NEGOTIATION SPECIALIST Ot 250.00 DIAB KYLE WO COMPL, TYPE II OR UNSPEC TY 09/22/2014 BRIAN HUGO CONTRACT NEGOTIATION SPECIALIST Ot 496 CHR AIRWAY OBSTRUCT NEC 09/22/2014 BRIAN HUGO CONTRACT NEGOTIATION SPECIALIST Ot 780.97 ALTERED MENTAL STATUS 09/22/2014 BRIAN HUGO CONTRACT NEGOTIATION SPECIALIST Ot V58.67 LONG-TERM (CURRENT) USE OF INSULIN 09/22/2014 BRIAN HUGO CONTRACT NEGOTIATION SPECIALIST Ot V58.69 OTH MED,LT,CURRENT USE 09/22/2014 Ot 433.30 09/22/2014 Ot 433.10 09/22/2014 Ot 433.30 10/21/2014 Ot 433.30 10/21/2014 Ot 433.10 10/21/2014 Ot 433.30 02/10/2015 Ot 433.30 02/10/2015 Ot 433.10 02/10/2015 Ot 433.30 02/24/2015 Ot 433.30 02/24/2015 Ot 433.10 02/24/2015 Ot 433.30 02/28/2015 Ot 433.30 02/28/2015 Ot 433.10 02/28/2015 Ot 433.30 02/28/2015 STEPHANIE CHRISTIANSEN Ot E05.90 02/28/2015 STEPHANIE CHRISTIANSEN Ot E05.90 03/16/2015 STEPHANIE CHRISTIANSEN Ot E05.90 03/21/2015 STEPHANIE CHRISTIANSEN Ot E05.90 02/09/2016 Ot 433.10 CAROTID ARTERY OCCLUSION W O CEREBRAL IN 02/09/2016 Ot 433.30 MULT BILTRAL ARTERY OCCLUSION WO CEREBRA 02/09/2016 STEPHANIE CHRISTIANSEN Ot E05.90 THYROTOXICOSIS, UNSP WITHOUT THYROTOXIC 02/12/2016 JOLLY DELANEY MD Ot E11.9 TYPE 2 DIABETES MELLITUS WITHOUT COMPLIC 03/01/2016 JOLLY DELANEY MD, Ot E11.9 TYPE 2 DIABETES MELLITUS WITHOUT COMPLIC 03/06/2016 JOLLY DELANEY MD Ot E11.9 TYPE 2 DIABETES MELLITUS WITHOUT COMPLIC 05/22/2016 Ot 433.10 CAROTID ARTERY OCCLUSION W O CEREBRAL IN 05/22/2016 Ot 433.30 MULT BILTRAL ARTERY OCCLUSION WO CEREBRA 05/22/2016 STEPHANIE CHRISTIANSENP Ot E05.90 THYROTOXICOSIS, UNSP WITHOUT THYROTOXIC 05/22/2016 JOLLY DELANEY MD Ot E11.9 TYPE 2 DIABETES MELLITUS WITHOUT COMPLIC 05/22/2016 STEPHANIE CHRISTIANSENP Ot I73.9 PERIPHERAL VASCULAR DISEASE, UNSPECIFIED 05/23/2016 STEPHANIE CHRISTIANSENP Ot I73.9 PERIPHERAL VASCULAR DISEASE, UNSPECIFIED 05/23/2016 STEPHANIE CHRISTIANSENP Ot I73.9 PERIPHERAL VASCULAR DISEASE, UNSPECIFIED 05/28/2016 STEPHANIE CHRISTIANSEN ARTIST MANAGER Ot I73.9 PERIPHERAL VASCULAR DISEASE, UNSPECIFIED 06/05/2016 JOLLY DELANEY MD Ot Z87.440 PERSONAL HISTORY OF URINARY (TRACT) INFE 06/12/2016 BRIAN HUGO CONTRACT NEGOTIATION SPECIALIST Ot 305.50 OPIOID ABUSE-UNSPEC 06/12/2016 BRIAN HUGO CONTRACT NEGOTIATION SPECIALIST Ot 780.97 ALTERED MENTAL STATUS 06/17/2016 STEPHANIE CHRISTIANSENP Ot I73.9 PERIPHERAL VASCULAR DISEASE, UNSPECIFIED 06/19/2016 STEPHANIE CHRISTIANSENP Ot I73.9 PERIPHERAL VASCULAR DISEASE, UNSPECIFIED 06/25/2016 JOLLY DELANEY MD Ot Z87.440 PERSONAL HISTORY OF URINARY (TRACT) INFE 07/02/2016 JOLLY DELANEY MD Ot Z87.440 PERSONAL HISTORY OF URINARY (TRACT) INFE 07/22/2016 SANTY UMANA DOA K Ot E11.9 TYPE 2 DIABETES MELLITUS WITHOUT COMPLIC 07/22/2016 DONG CASH CUCO K Ot E83.42 HYPOMAGNESEMIA 07/22/2016 DONG CASH CUCO K Ot E86.0 DEHYDRATION 07/22/2016 DONG DO, CUCO K Ot E87.1 HYPO-OSMOLALITY AND HYPONATREMIA 07/22/2016 CUCO UMANA DO K Ot G40.909 EPILEPSY, UNSP, NOT INTRACTABLE, WITHOUT 07/22/2016 DONG SANTY CASHA K Ot I10 ESSENTIAL (PRIMARY) HYPERTENSION 07/22/2016 CUCO UMANA DO K Ot J44.9 CHRONIC OBSTRUCTIVE PULMONARY DISEASE, U 07/22/2016 DONG CUCO CASH K Ot R19.7 DIARRHEA, UNSPECIFIED 07/22/2016 DONG CUCO CASH K Ot R53.1 WEAKNESS 07/22/2016 DONG SANTY CASHA K Ot Z79.4 CORRECTION (CURRENT) USE OF INSULIN 07/22/2016 DONG CUCO CASH K Ot Z79.82 CORRECTION (CURRENT) USE OF ASPIRIN 07/22/2016 DONG SANTY CASHA K Ot Z79.899 OTHER DISTILLERY MANAGER (CURRENT) DRUG THERAPY 07/22/2016 CUCO UMANA DO K Ot Z86.73 PRSNL HX OF TIA (TIA), AND CEREB INFRC W 07/22/2016 CUCO UMANA DO K Ot Z95.5 PRESENCE OF CORONARY ANGIOPLASTY IMPLANT Procedures Code Description Performed By Performed On 38.93 VENOUS CATHETERIZATION NEC 01/07/2011 45352 A1C (IN-HOUSE) 69741 XRAY LUMBAR SPINE 2 OR 3 VIEWS 03/18/2012 71502 OXIMETRY 2011 32036 OXIMETRY 2011 48744 SLEEP STUDY 03/26 50891 GLUCOSE FINGER STICK 03/26/2012 55408 SLEEP STUDY 03/27 J1815 Novolin r 100 units/ml vial 100 unit/mL Solution 04/13/2012 83457 MONO TEST (IN-HOUSE) 09/09/2012 84344 MICRO ALBUMIN-IN HOUSE 09/11/2012 01822 ROUTINE VENIPUNCTURE 01/19/[address] SPINE, LUMBAR W/ AND W/O CONTRAST 01/19/2013 29579 TSH 01/19/[address] SPINE, LUMBAR W/O CONTRAST 01/21/[address] ABDOMEN AND PELVIS W/CONTRAST 01/21/2013 95257 ROUTINE VENIPUNCTURE 06/03/2013 78783 CMP 06/03/2013 94999 TSH 06/03/2013 96007 CBC 06/03/2013 J1815 Novolin r 100 units/ml vial 100 unit/mL solution 06/03/2013 68663 A1C (IN-HOUSE) 74172 ROUTINE VENIPUNCTURE 07/19/2013 03136 CMP 07/19/2013 YULIANA VARGAS 07/19/2013 69174 ROUTINE VENIPUNCTURE 10/08/2013 48320 A1C (IN-HOUSE) 70777 CBC 10/08/2013 9154351 GFR CALC (RESULT ONLY) 10/08/2013 12844 CMP 10/08/2013 63338 IRON SERUM 2013 37726 IRON BNDNG CAP 94799 MAGNESIUM 2013 95600 VIT B 12 2013 01565 TSH 10/08/2013 89458 FOLATE 2013 63069 FERRITIN 2013 IRGROUP IRON GROUP (Iron,TIBC, Ferritin) 10/12/2013 88976 MRI EXTREMITY JOINT, UPPER LEFT, W/O CONTRAST 10/19/2013 81763 PSYCH DIAGNOSTIC EVALUATION 11/02/2013 20170 PSYTX PT&/FAMILY 30 MINUTES 11/11/2013 PHYSICAL WOUND CARE, [facility] 11/12/2013 37.22 LEFT HEART CARDIAC CATH 01/05/2014 88.47 CONTR ABD ARTERIOGRM NEC 01/05/2014 88.48 CONTRAST ARTERIOGRAM-LEG 01/05/2014 88.53 LT HEART ANGIOCARDIOGRAM 01/05/2014 88.56 CORONAR ARTERIOGR-2 CATH 01/05/2014 Results Test Result Range Complete blood count (CBC) with automated white blood cell (WBC) differential - 02/09/16 15:05 Blood leukocytes automated count (number/volume) 13.3 10*3/ uL 4.3-11.0 Blood erythrocytes automated count (number/volume) 4.59 10*6 /uL 4.35-5.85 Venous blood hemoglobin measurement (mass/volume) 14.9 g/dL 13.3-17.7 Blood hematocrit (volume fraction) 42 % 40-54 Automated erythrocyte mean corpuscular volume 91 [foz_us] 80-99 Automated erythrocyte mean corpuscular hemoglobin (mass per erythrocyte) 33 pg 25-34 Automated erythrocyte mean corpuscular hemoglobin concentration measurement ( mass/volume) 36 g/dL 32-36 Automated erythrocyte distribution width ratio 12.8 % 10.0-14.5 Automated blood platelet count (count/volume) 215 10*3/uL 130-400 Automated blood platelet mean volume measurement 11.3 [foz_ us] 7.4-10.4 Automated blood neutrophils/100 leukocytes 54 % 42-75 Automated blood lymphocytes/100 leukocytes 34 % 12-44 Blood monocytes/100 leukocytes 9 % 0-12 Automated blood eosinophils/100 leukocytes 2 % 0-10 Automated blood basophils/100 leukocytes 1 % 0-10 Blood neutrophils automated count (number/volume) 7.1 10*3 1.8-7.8 Blood lymphocytes automated count (number/volume) 4.5 10*3 1.0-4.0 Blood monocytes automated count (number/volume) 1.2 10*3 0.0-1.0 Automated eosinophil count 0.3 10*3/uL 0.0-0.3 Automated blood basophil count (count/volume) 0.2 10*3/uL 0.0-0.1 Comprehensive metabolic panel - 02/09/16 15:05 Serum or plasma sodium measurement (moles/volume) 129 mmol/ L 135-145 Serum or plasma potassium measurement (moles/volume) 4.8 mmol/L 3.6-5.0 Serum or plasma chloride measurement (moles/volume) 93 mmol/ L 98-107 Carbon dioxide 24 mmol/L 21-32 Serum or plasma anion gap determination (moles/volume) 12 mmol/L 5-14 Serum or plasma urea nitrogen measurement (mass/volume) 14 mg/dL 7-18 Serum or plasma creatinine measurement (mass/volume) 0.88 mg /dL 0.60-1.30 Serum or plasma urea nitrogen/creatinine mass ratio 16 NRG Serum or plasma creatinine measurement with calculation of estimated glomerular filtration rate > NRG Serum or plasma glucose measurement (mass/volume) 130 mg/dL 70-105 Serum or plasma calcium measurement (mass/volume) 9.5 mg/dL 8.5-10.1 Serum or plasma total bilirubin measurement (mass/volume) 0.3 mg/dL 0.1-1.0 Serum or plasma alkaline phosphatase measurement (enzymatic activity/volume) 72 U/L 40-136 Serum or plasma aspartate aminotransferase measurement (enzymatic activity/ volume) 16 U/L 5-34 Serum or plasma alanine aminotransferase measurement (enzymatic activity/volume ) 22 U/L 0-55 Serum or plasma protein measurement (mass/volume) 6.9 g/dL 6.4-8.2 Serum or plasma albumin measurement (mass/volume) 4.4 g/dL 3.2-4.5 Complete urinalysis with reflex to culture - 06/04/16 19:10 Urine color determination YELLOW NRG Urine clarity determination SLIGHTLY CLOUDY NRG Urine pH measurement by test strip 7 5- 9 Specific gravity of urine by test strip 1.010 1.016-1.022 Urine protein assay by test strip, semi-quantitative 3+ NEGATIVE Urine glucose detection by automated test strip NEGATIVE NEGATIVE Erythrocytes detection in urine sediment by light microscopy 2+ NEGATIVE Urine ketones detection by automated test strip NEGATIVE NEGATIVE Urine nitrite detection by test strip NEGATIVE NEGATIVE Urine total bilirubin detection by test strip NEGATIVE NEGATIVE Urine urobilinogen measurement by automated test strip (mass/volume) NORMAL NORMAL Urine leukocyte esterase detection by dipstick NEGATIVE NEGATIVE Automated urine sediment erythrocyte count by microscopy (number/high power field) [HPF] NRG Automated urine sediment leukocyte count by microscopy (number/high power field ) NONE NRG Bacteria detection in urine sediment by light microscopy NONE NRG Crystals detection in urine sediment by light microscopy NONE NRG Casts detection in urine sediment by light microscopy NONE NRG Mucus detection in urine sediment by light microscopy NEGATIVE NRG Complete urinalysis with reflex to culture NO NRG Capillary blood glucose measurement by glucometer (mass/volume) - 07/19/16 19: 29 Capillary blood glucose measurement by glucometer (mass/volume) 150 mg/dL 70-110 Complete blood count (CBC) with automated white blood cell (WBC) differential - 07/19/16 19:51 Blood leukocytes automated count (number/volume) 7.7 10*3/ uL 4.3-11.0 Blood erythrocytes automated count (number/volume) 3.61 10*6 /uL 4.35-5.85 Venous blood hemoglobin measurement (mass/volume) 11.4 g/dL 13.3-17.7 Blood hematocrit (volume fraction) 34 % 40-54 Automated erythrocyte mean corpuscular volume 94 [foz_us] 80-99 Automated erythrocyte mean corpuscular hemoglobin (mass per erythrocyte) 32 pg 25-34 Automated erythrocyte mean corpuscular hemoglobin concentration measurement ( mass/volume) 34 g/dL 32-36 Automated erythrocyte distribution width ratio 12.2 % 10.0-14.5 Automated blood platelet count (count/volume) 128 10*3/uL 130-400 Automated blood platelet mean volume measurement 11.2 [foz_ us] 7.4-10.4 Automated blood neutrophils/100 leukocytes 52 % 42-75 Automated blood lymphocytes/100 leukocytes 35 % 12-44 Blood monocytes/100 leukocytes 10 % 0-12 Automated blood eosinophils/100 leukocytes 2 % 0-10 Automated blood basophils/100 leukocytes 1 % 0-10 Blood neutrophils automated count (number/volume) 4.0 10*3 1.8-7.8 Blood lymphocytes automated count (number/volume) 2.7 10*3 1.0-4.0 Blood monocytes automated count (number/volume) 0.8 10*3 0.0-1.0 Automated eosinophil count 0.2 10*3/uL 0.0-0.3 Automated blood basophil count (count/volume) 0.1 10*3/uL 0.0-0.1 Comprehensive metabolic panel - 07/19/16 19:51 Serum or plasma sodium measurement (moles/volume) 130 mmol/ L 135-145 Serum or plasma potassium measurement (moles/volume) 4.8 mmol/L 3.6-5.0 Serum or plasma chloride measurement (moles/volume) 98 mmol/ L 98-107 Carbon dioxide 22 mmol/L 21-32 Serum or plasma anion gap determination (moles/volume) 10 mmol/L 5-14 Serum or plasma urea nitrogen measurement (mass/volume) 21 mg/dL 7-18 Serum or plasma creatinine measurement (mass/volume) 1.03 mg /dL 0.60-1.30 Serum or plasma urea nitrogen/creatinine mass ratio 20 NRG Serum or plasma creatinine measurement with calculation of estimated glomerular filtration rate > NRG Serum or plasma glucose measurement (mass/volume) 141 mg/dL 70-105 Serum or plasma calcium measurement (mass/volume) 7.9 mg/dL 8.5-10.1 Serum or plasma total bilirubin measurement (mass/volume) 0.3 mg/dL 0.1-1.0 Serum or plasma alkaline phosphatase measurement (enzymatic activity/volume) 57 U/L 40-136 Serum or plasma aspartate aminotransferase measurement (enzymatic activity/ volume) 17 U/L 5-34 Serum or plasma alanine aminotransferase measurement (enzymatic activity/volume ) 11 U/L 0-55 Serum or plasma protein measurement (mass/volume) 5.6 g/dL 6.4-8.2 Serum or plasma albumin measurement (mass/volume) 3.5 g/dL 3.2-4.5 Magnesium - 07/19/16 19:51 Magnesium 1.4 mg/dL 1.8-2.4 Serum or plasma amylase measurement (enzymatic activity/volume) - 07/19/16 19: 51 Serum or plasma amylase measurement (enzymatic activity/volume) 40 U/L 25-125 Lipase - 07/19/16 19:51 Lipase < U/L 8-78 Serum or plasma thyroxine (T4) free measurement (mass/volume) - 07/19/16 19:51 Serum or plasma thyroxine (T4) free measurement (mass/volume) 0.95 ng/dL 0.70-1.48 Serum or plasma thyrotropin measurement by detection limit <=0.05 miu/l (units/ volume) - 07/19/16 19:51 Serum or plasma thyrotropin measurement by detection limit <=0.05 miu/l (units/ volume) 5.18 u[iU]/mL 0.35-4.94 Valproic acid - 07/19/16 19:51 Valproic acid 50.3 ug/mL 50.0-100.0 Complete urinalysis with reflex to culture - 07/19/16 22:03 Urine color determination YELLOW NRG Urine clarity determination CLEAR NRG Urine pH measurement by test strip 6 5- 9 Specific gravity of urine by test strip 1.010 1.016-1.022 Urine protein assay by test strip, semi-quantitative NEGATIVE NEGATIVE Urine glucose detection by automated test strip NEGATIVE NEGATIVE Erythrocytes detection in urine sediment by light microscopy NEGATIVE NEGATIVE Urine ketones detection by automated test strip NEGATIVE NEGATIVE Urine nitrite detection by test strip NEGATIVE NEGATIVE Urine total bilirubin detection by test strip NEGATIVE NEGATIVE Urine urobilinogen measurement by automated test strip (mass/volume) NORMAL NORMAL Urine leukocyte esterase detection by dipstick NEGATIVE NEGATIVE Automated urine sediment erythrocyte count by microscopy (number/high power field) NONE NRG Automated urine sediment leukocyte count by microscopy (number/high power field ) NONE NRG Bacteria detection in urine sediment by light microscopy NEGATIVE NRG Squamous epithelial cells detection in urine sediment by light microscopy RARE NRG Crystals detection in urine sediment by light microscopy NONE NRG Casts detection in urine sediment by light microscopy NONE NRG Mucus detection in urine sediment by light microscopy NEGATIVE NRG Complete urinalysis with reflex to culture NO NRG Other elements identification in urine sediment by light microscopy FEW SPERM NRG Encounters ACCT No. Visit Date/Time Discharge Status Pt. Type Provider Facility Loc./Unit Complaint [id number] 06/29/2014 07:50:00 06/29/2014 23: 59:59 CLS Outpatient STEPHANIE CHRISTIANSEN APRN [id number] 04/21/2014 09:44:00 04/21/2014 23: 59:59 CLS Outpatient JOLLY DELANEY MD [id number] 02/16/2014 08:48:00 02/16/2014 23: 59:59 CLS Outpatient STEPHANIE CHRISTIANSEN APRN [id number] 02/05/2014 06:56:00 02/05/2014 23: 59:59 CLS Outpatient CLARIBEL RAMEY MD [id number] 01/21/2014 10:00:00 01/21/2014 23: 59:59 CLS Outpatient CACHORRO SHAW DO [id number] 12/17/2013 09:57:00 12/17/2013 23: 59:59 CLS Outpatient SIMRAN LEGER APRN [id number] 12/17/2013 09:57:00 12/17/2013 23: 59:59 CLS Outpatient SIMRAN LEGER APRN [id number] 11/12/2013 09:52:00 11/12/2013 23: 59:59 CLS Outpatient CACHORRO SHAW DO [id number] 11/11/2013 15:58:00 11/11/2013 23: 59:59 CLS Outpatient JE DONOVAN PHD [id number] 11/02/2013 13:59:00 11/02/2013 23: 59:59 CLS Outpatient JE DONOVAN PHD [id number] 10/19/2013 16:42:00 10/19/2013 23: 59:59 CLS Outpatient CACHORRO SHAW DO [id number] 10/08/2013 12:05:00 10/08/2013 23: 59:59 CLS Outpatient CACHORRO SHAW DO [id number] 10/08/2013 12:05:00 10/08/2013 23: 59:59 CLS Outpatient CACHORRO SHAW DO [id number] 07/21/2013 17:05:00 07/21/2013 23: 59:59 CLS Outpatient JOLLY DELANEY MD [id number] 07/19/2013 11:17:00 07/19/2013 23: 59:59 CLS Outpatient SHAW DOCACHORRO [id number] 06/03/2013 11:22:00 06/03/2013 23: 59:59 CLS Outpatient SHAW DOCACHORRO [id number] 06/03/2013 11:22:00 06/03/2013 23: 59:59 CLS Outpatient SHAW DOCACHORRO [id number] 01/19/2013 11:42:00 01/19/2013 23: 59:59 CLS Outpatient SHAW DOCACHORRO [id number] 01/19/2013 11:42:00 01/19/2013 23: 59:59 CLS Outpatient SHAW DOCACHORRO [id number] 11/02/2012 10:38:00 11/02/2012 23: 59:59 CLS Outpatient SHAW DOCACHORRO [id number] 04/22/2012 11:01:00 04/22/2012 23: 59:59 CLS Outpatient [id number] 04/13/2012 09:16:00 04/13/2012 23: 59:59 CLS Outpatient SHAW DOCACHORRO [id number] 03/26/2012 08:41:00 03/26/2012 23: 59:59 CLS Outpatient [facility]AW DOCACHORRO [id number] 03/26/2012 08:41:00 03/26/2012 23: 59:59 CLS Outpatient SHAW DOCACHORRO [id number] 03/18/2012 15:47:00 03/18/2012 23: 59:59 CLS Outpatient [id number] 02/17/2012 16:33:00 02/17/2012 23: 59:59 CLS Outpatient SHAW DOCACHORRO [id number] 09/11/2012 09:20:00 Document Registration [id number] 09/09/2012 14:05:00 Document Registration [id number] 09/09/2012 14:05:00 Document Registration
--- OUTSIDE RECORDS SUMMARY | 2016-08-25 04:20 | XMS REPORT ---
Author Author STEPHANIE CHRISTIANSEN Organization [employer] Address Unknown Phone Unavailable Care Team Providers Care Right Of Way Manager Name Role Phone STEPHANIE CHRISTIANSEN CP [...] Instructions Start Date End Date Status Dosage Ativan [facility] [address]-60 1 MG June 23, 2014 1 tablet by Oral route every 6 hours PRN tramadol NDC 0 50 mg oral 3 times a day June 23, 2014 take 1 tablet as needed pain Results No Known Results Summary Purpose [employer] Submission
== END 2016-07-19 23:10 ==
LOC: EDUNIT# 19:22 → ER 19:23
DX: R19.7 Diarrhea, unspecified (principal); E86.0 Dehydration; R53.1 Weakness; E87.1 Hypo-osmolality and hyponatremia; E83.42 Hypomagnesemia; I10 Essential (primary) hypertension; J44.9 Chronic obstructive pulmonary disease, unspecified; E11.9 Type 2 diabetes mellitus without complications; G40.909 Epilepsy, unspecified, not intractable, without status epilepticus; Z79.82 Long term (current) use of aspirin; Z79.4 Long term (current) use of insulin; Z79.899 Other long term (current) drug therapy; Z95.5 Presence of coronary angioplasty implant and graft; Z86.73 Personal history of transient ischemic attack (TIA), and cerebral infarction without residual deficits
CPT/HCPCS: 36415; 74177; 80053; 80164; 81000; 82150; 82962; 83690; 83735; 84439; 84443; 85025; 93041; 96361; 96374

== ENCOUNTER → 2017-03-17 | Outpatient (CLI) | payer MEDICARE, MEDICAID ==
[~2017-03-17] MED LIST changes: +ASPI-983 PO; +CATHETER FLUSH 10 ML SYR IV PRN; +CHOL200059 PO; +CITA40TA11 PO; +CLON0.2T PO; +CLON0.5T3 PO; +CLOP75TA69 PO; +DIVA125C10 PO; +DONE10TA12 PO; +INSU100I14 SQ; +INSU100I29 SQ; +IOHEXOL 350 MG/ML 150 ML (OMNIPAQUE 350) VIAL IV ONE; +LACT1CAP8 PO; +LACT1TAB25 PO; +LEVO150T PO; +MAG30ORA2 PO; +MELA3TAB PO; +METO-333 PO; +MIRT15TA PO; +NS 100 ML (IVPB) BAG IV ONE; +RIVA1PAT3 TD; +SIMV10TA3 PO; +TRAM50TA2 PO
--- NOTE | 2017-03-17 15:18 | Diagnostic Imaging Report ---
CTA AORTA W KELIN RUNOFF W/WO TECHNIQUE: Postcontrast CTA imaging of the abdomen, pelvis and bilateral lower extremities was performed according to the angiogram protocol. MIP reformats of the vessels were created and submitted for interpretation. INDICATION: Bilateral lower extremity claudication. COMPARISON: Arterial Doppler from 05/22/2016. FINDINGS: Aorta and iliac arteries: The abdominal aorta is normal in caliber with moderate calcified and noncalcified atherosclerotic plaquing which is more advanced distally. There is no aortic occlusion. The celiac, superior mesenteric, bilateral renal and inferior mesenteric arteries are all patent proximally. There is luminal narrowing at the origin of the inferior mesenteric artery due to noncalcified atherosclerotic plaquing. There is extensive calcified and noncalcified atherosclerotic plaquing in the bilateral common iliac arteries which results in up to 50% luminal narrowing on the right. Extensive atherosclerotic plaquing results in focal high-grade stenosis in the right external in its mid aspect with greater than 75% stenosis. Calcified and noncalcified atherosclerotic plaque in the left external iliac artery results in significant luminal narrowing measuring up to 75% in its distal aspect. Right lower extremity: Common femoral artery is patent with dense atherosclerotic plaquing at its distal bifurcation. The superficial femoral artery is completely occluded at its origin and there is no reconstitution of flow within the superficial femoral artery throughout the right thigh. The right popliteal artery is completely occluded as well. The profunda femoris has high-grade luminal narrowing in its origin with numerous small branches supplying collaterals below the knee. Multifocal calcified atherosclerotic plaques are present below the knee which limit evaluation for stenosis. There appears to be patency of the peroneal and anterior tibial arteries to the level of the ankle. Left lower extremity: Common femoral artery is patent with at least 50% luminal narrowing due to calcified and non-calcified plaque. Plaquing at the origin of the superficial femoral artery results in high-grade stenosis in the proximal superficial femoral artery which remains patent in the proximal thigh and midthigh, but likely occludes in the distal thigh. Popliteal artery is occluded proximally with reconstitution of flow in its distal aspect. Profunda femoris artery is patent with collateral vessels supplying the majority of the vasculature below the knee. Multifocal atherosclerotic plaques limit evaluation for patency of the lower leg arteries. Anterior tibial and peroneal tendons appearing patent to the level of the ankle. Nonvascular findings: The lung bases are clear. No pericardial pleural effusion. Allowing for the phase of contrast, the liver, spleen, pancreas and adrenals are normal. No suspicious renal mass. No bowel obstruction. No abdominal or pelvic lymphadenopathy. Prostate is not enlarged. 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 IMPRESSION: 1. Atherosclerotic plaque results in at least 50-75% stenosis of the bilateral external iliac arteries. 2. Complete occlusion of the right superficial femoral artery at its origin with collateral flow below the knee supplied by the profunda femoris branches. 3. High-grade stenosis at the origin of the left superficial femoral artery with complete occlusion in its mid and distal aspect. Reconstitution of flow within the left popliteal artery distally. 4. There appears to be a two-vessel runoff in both lower legs. Dictated by: Dictated on workstation # [id number]
== END ==
LOC: RAD 12:19
PROVIDERS: ATTEND Physician Assistant
DX: I70.8 Atherosclerosis of other arteries (principal); I70.203 Unspecified atherosclerosis of native arteries of extremities, bilateral legs
CPT/HCPCS: 75635

== ENCOUNTER → 2017-04-21 | Outpatient (CLI) | payer MEDICARE, MEDICAID ==
[~2017-04-21] MED LIST changes: -IOHEXOL 350 MG/ML 150 ML (OMNIPAQUE 350) VIAL IV ONE; -NS 100 ML (IVPB) BAG IV ONE
--- NOTE | 2017-04-21 15:39 | Diagnostic Imaging Report ---
INDICATION: Chronic ulceration of the left hallux. TECHNIQUE: Three-phase bone scan imaging was performed after the administration of 25.5 mCi of technetium 99M-MDP. FINDINGS: There is increased uptake in the distal aspect of the left great toe on all three phases. This is compatible with osteomyelitis. IMPRESSION: Findings are highly suspect for osteomyelitis in the distal aspect of the left great toe. Dictated by: Dictated on workstation # [id number]
== END ==
LOC: RAD 10:52
PROVIDERS: ATTEND Podiatrist Foot & Ankle Surgery
DX: L97.529 Non-pressure chronic ulcer of other part of left foot with unspecified severity (principal)
CPT/HCPCS: 78315

== ENCOUNTER 2017-05-07 10:23 | Outpatient (CLI) | payer MEDICARE, MEDICAID ==
[~2017-05-07] VITALS: Ht 175.3 cm; Wt 76.2 kg
[~2017-05-07 10:23] MED LIST changes: -CATHETER FLUSH 10 ML SYR IV PRN
[2017-05-07 10:34] VITALS: BP 110/72
[2017-05-07] MEDS ORDERED: METF1000 PO (11:27)
[2017-05-07] MEDS ORDERED: CEPH-507 PO (11:27)
== END 2017-05-07 10:50 | disposition home or self-care (01) ==
LOC: PREOP 10:23
PROVIDERS: ATTEND Podiatrist Foot & Ankle Surgery
DX: Z01.818 Encounter for other preprocedural examination (principal); Z11.2 Encounter for screening for other bacterial diseases; M86.9 Osteomyelitis, unspecified
CPT/HCPCS: 87081

== ENCOUNTER → 2017-05-09 | Day surgery (SDC) | payer MEDICARE, MEDICAID ==
[~2017-05-09] VITALS: Ht 175.3 cm; Wt 76.2 kg
[~2017-05-09] MED LIST changes: +BUPIVACAINE 0.5% 30 ML (SENSORCAINE) VIAL ONE; +CEPH-507 PO; +D5W 50 ML IVPB SOLUTION 50 ML IV ONE; +LACTATED RINGERS 1,000 ML IV SCH; +LIDOCAINE 1% INJ 20 ML (XYLOCAINE) VIAL ONE; +METF1000 PO; +MIDAZOLAM 2 MG/2 ML (VERSED) VIAL ONE; +PROPOFOL INJECTION 0 ML IV ONE; +SEVOFLURANE (ULTANE) 15 ML INHAL SOLN ONE; +VANCOMYCIN 1000 MG/VIAL ONE; +ceFAZolin 1,000 MG (ANCEF) VIAL ONE; +ceFAZolin INJECTION 1,000 MG in D5W 50 ML IVPB SOLUTION 50 ML IV ONE; +fentaNYL INJECTION 100 MCG/2 ML AMP ONE
[2017-05-09 11:20] VITALS: BP 168/95
--- NOTE | 2017-05-09 12:46 | Progress Note-Pre Operative ---
Pre-Operative Progress Note H&P Reviewed The H&P was reviewed, patient examined and no changes noted. Date Seen by Provider: May 09, 2017 Time Seen by Provider: 12:46 Date H&P Reviewed: May 09, 2017 Time H&P Reviewed: 12:46 Pre-Operative Diagnosis: Osteomyelitis left hallux KENTON ANDREA DPM May 09, 2017 12:46 pm
--- NOTE | 2017-05-09 14:08 | Progress Note-Post Operative ---
Post-Operative Progess Note Surgeon (s)/Terrazzo Installer (s) Surgeon KENTON ANDREA DPM Terrazzo Installer: none Pre-Operative Diagnosis Osteomyelitis left hallux Post-Operative Diagnosis same Procedure & Operative Findings Date of Procedure 05/09/17 Procedure Performed/Findings Amputation of the left hallux Anesthesia Type General Estimated Blood Loss Estimated blood loss (mL): Minimal Specimens/Packing Specimens Removed Left Hallux Packing: None KENTON ANDREA DPM May 09, 2017 2:08 pm
[2017-05-09 14:50] VITALS: BP 149/79
[2017-05-09 15:20] VITALS: BP 163/86
[2017-05-09 15:40] VITALS: BP 163/86
--- NOTE | 2017-05-09 16:18 | Physical Therapy Ortho Eval ---
PT Orthopedic Evaluation Type of Surgery left great toe amputation Prior Level of Function Patient lives in a jail Subjective Subjective Patient in wheelchair outside of his room ready to go back to the jail. Nurse states that he was able to perform bed mobility with SBA and transfers with CGA Entry Into Home: Level Entry Motor Control Motor Control: Motor Control WNL ROM ROM: WFL Strength NT Transfer Transfers (B, C, W/C) (FIM): 4 Patient performed a sit to stand and stand pivot transfer with CGA, cues for hand placement and safety. Gait Gait Assistive Device: FWW Right Lower Extremity: Right Weight Bearing Status RLE: Full Weight Bearing Left Lower Extremity: Left Weight Bearing Status LLE: Partial Weight Bearing Gait (FIM): 1 Distance: 20' Gait Level of Assist: 4 (CGA) Summary/Comments Patient was able to keep some weight off his left foot but it is questionable how much. Treatment Rendered Treatment: Therapeutic Exercises, Gait Train Exercise Instruction: Ankle Pumps LAQ Assessment/Goals Goal Time Frame: 1 Visit Plan Treatment Plan: Discharge PT/Family Agrees to Plan: Yes Time Time In: 1515 Time Out: 1525 Total Billed Treatment Time: 10 Billed Treatment Time 1 visit EVL 10' ABDULLAHI HARRELL PT May 09, 2017 16:18
--- NOTE | 2017-05-09 18:30 | OPERATIVE REPORT ---
DATE OF SERVICE: 05/09/2017 SURGEON: Charlene Ulrich DPM. PREOPERATIVE DIAGNOSIS: Osteomyelitis, left hallux. POSTOPERATIVE DIAGNOSIS: Osteomyelitis, left hallux. PROCEDURE: Amputation of left hallux. WOUND CLASS: Contaminated. ANESTHESIA: General. HEMOSTASIS: Pneumatic ankle tourniquet at 250 mmHg. INDICATIONS: This 66-year-old male presented to my office complaining of chronic ulceration to the left hallux. Conservative therapy has met with unsatisfactory results and the x-rays indicated that there is infection that was gone down to bone. Bone scan confirmed the diagnosis of osteomyelitis. The infection has gotten progressively worse with the lesion getting larger and malodor present. He had a vascular evaluation by Dr. Ramirez and then was to be seen by Dr. Rodriguez in [place], but apparently that did not go through. It is in her best interest I believe to have the procedure done as soon as possible. No guarantees were extended to the patient. He understands that there are risks including loss of limb or life and is willing to proceed. DESCRIPTION OF PROCEDURE: The patient was brought back to the operating table and placed in secure supine position. Appropriate time out was performed. A general anesthetic was done by mask where the left first ray was anesthetized with local anesthetic utilizing 1:1 mixture of 1% Xylocaine, 0.5% Marcaine injected in a Bojorquez block with aseptic technique. A pneumatic ankle tourniquet was placed on the left lower extremity over several layers of padding. The left foot was then prepped and draped in normal sterile manner. The left foot was then elevated and allowed to exsanguinate after which the tourniquet was inflated to 250 mmHg. Attention was then directed to the medial aspect of the first metatarsal where a longitudinal incision was extended distally into a racket type incision around the diaphysis of the proximal phalanx. The hallux was disarticulated at the interphalangeal joint and the distal specimen sent for gross and microscopic evaluation. Degenerative changes were noted to the head of the proximal phalanx and a rongeur was used to take a sample sent for culture and sensitivities. The proximal phalanx was then sharply disarticulated. The flexor and extensor tendons were cut as proximally as possible. With the remaining tissue, there was no necrosis identified. The tourniquet was released and no active bleeders were identified; however, the capillary refill time return to approximately 3 seconds to the surrounding tissue that remained. The wound was then flushed with pulse museum preparator of 3000 mL infused with 1 gram of vancomycin. After the pulse irrigation, the wound was swabbed with a swab for culture and sensitivity. The wound was then closed under minimal tension with 4-0 Prolene in a simple interrupted type stitch. The postoperative dressing consisted of Betadine soaked Adaptic, sterile 4x4's, Kerlix and a Coban wrap. The patient does have minimal weightbearing with a surgical splint shoe and a walker on the left lower extremity. He is to follow up in my office in one week period of time or sooner if necessary. He is to continue with his Keflex antibiotic for now pending cultures. He will also continue with pain medication as necessary. Job ID: [id number] DocumentID: [id number] Dictated Date: 05/09/2017 14:19:13 Mixing Supervisor Date: 05/09/2017 15:59:33 Dictated By: JAMES BURGESS
--- OUTSIDE RECORDS SUMMARY | 2017-05-11 06:34 | XMS REPORT ---
Author Author STEPHANIE CHRISTIANSEN [facility] Address [address] [place] [address] Care Team Providers Care Needle Punch Machine Operator Name Role Phone STEPHANIE CHRISTIANSEN Unavailable PROBLEMS Type Condition ICD9-CM Code XTR24-IT Code Onset Dates Condition Status SNOMED Code Problem Type 2 diabetes mellitus with complication E11.8 Active 55338346 Problem Vascular dementia with behavior disturbance F01.51 Active 983876065 Problem Depression F32.9 Active 81513726 Problem Vascular dementia F01.50 Active 776075553 Problem Nonintractable epilepsy without status epilepticus, unspecified epilepsy type G40.909 Active 823414031 Problem Pseudobulbar affect F48.2 Active 15285100 Problem Recurrent major depressive disorder, remission status unspecified F33.9 Active 50488523 Problem Positive TB test R76.11 Active 774157568 Problem Generalized anxiety disorder F41.1 Active 32335940 Problem Pain R52 Active 82963512 Problem Anxiety F41.9 Active 10417825 Problem PVD (peripheral vascular disease) I73.9 Active 354701298 Problem Pulmonary emphysema, unspecified emphysema type J43.9 Active 42597942 Problem Hyperlipidemia, unspecified hyperlipidemia type E78.5 Active 31103104 Problem Peripheral vascular disease due to secondary diabetes E13.51 Active 3071557 Problem Cerebrovascular accident (CVA) due to other mechanism I63.8 Active 027812173 Problem Essential hypertension I10 Active 65952700 Problem Acquired hypothyroidism E03.9 Active 349737023 Problem Coronary artery disease involving [place] coronary artery of [place] heart without angina pectoris I25.10 Active 5746961653252 Problem Neuropathy G62.9 Active 867294413 Problem Abnormal carotid ultrasound R93.8 Active 785389947 Problem Gastroesophageal reflux disease without esophagitis K21.9 Active 770159661 Problem Long-term insulin use Z79.4 Active 662328258 ALLERGIES Unknown Allergies SOCIAL HISTORY No smoking Hx information available PLAN OF CARE Activity Details Follow Up 2 Months Reason:DM VITAL SIGNS MEDICATIONS Unknown Medications RESULTS No Results PROCEDURES Procedure Date Ordered Related Diagnosis Body Site Minor complication (15 mins) May 07, 2016 IMMUNIZATIONS No Known Immunizations
--- OUTSIDE RECORDS SUMMARY | 2017-05-11 06:34 | XMS REPORT ---
Author Author JAROD DELANEY [facility] Address [address] [place] [address] Care Team Providers Care Attraction Worker Name Role Phone JAROD DELANEY Unavailable PROBLEMS Type Condition ICD9-CM Code USX83-DV Code Onset Dates Condition Status SNOMED Code Problem Type 2 diabetes mellitus with complication E11.8 Active 75200002 Problem Vascular dementia with behavior disturbance F01.51 Active 166539030 Problem Depression F32.9 Active 42376006 Problem Vascular dementia F01.50 Active 362465427 Problem Nonintractable epilepsy without status epilepticus, unspecified epilepsy type G40.909 Active 324673318 Problem Pseudobulbar affect F48.2 Active 67383287 Problem Recurrent major depressive disorder, remission status unspecified F33.9 Active 28233596 Problem Positive TB test R76.11 Active 575656978 Problem Generalized anxiety disorder F41.1 Active 22857620 Problem Pain R52 Active 43931504 Problem Anxiety F41.9 Active 01151411 Problem PVD (peripheral vascular disease) I73.9 Active 427877082 Problem Pulmonary emphysema, unspecified emphysema type J43.9 Active 07555731 Problem Hyperlipidemia, unspecified hyperlipidemia type E78.5 Active 82635369 Problem Peripheral vascular disease due to secondary diabetes E13.51 Active 4480337 Problem Cerebrovascular accident (CVA) due to other mechanism I63.8 Active 888077241 Problem Essential hypertension I10 Active 78290692 Problem Acquired hypothyroidism E03.9 Active 059512717 Problem Coronary artery disease involving [place] coronary artery of [place] heart without angina pectoris I25.10 Active 5016684469220 Problem Neuropathy G62.9 Active 738227130 Problem Abnormal carotid ultrasound R93.8 Active 336698733 Problem Gastroesophageal reflux disease without esophagitis K21.9 Active 231562790 Problem Long-term insulin use Z79.4 Active 056603462 ALLERGIES Unknown Allergies SOCIAL HISTORY No smoking Hx information available PLAN OF CARE VITAL SIGNS MEDICATIONS Medication Instructions Dosage Frequency Start Date End Date Duration Status Ativan 1 MG Orally twice a day 1 tablet 12h 12 Jun, 2014 28 days Active RESULTS No Results PROCEDURES No Known procedures IMMUNIZATIONS No Known Immunizations
--- OUTSIDE RECORDS SUMMARY | 2017-05-11 06:34 | XMS REPORT ---
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 Active 505192598 Problem Depression F32.9 Active 76012282 Problem Vascular dementia F01.50 Active 373971160 Problem Nonintractable epilepsy without status epilepticus, unspecified epilepsy type G40.909 Active 373636576 Problem Pseudobulbar affect F48.2 Active 23695152 Problem Recurrent major depressive disorder, remission status unspecified F33.9 Active 56756118 Problem Positive TB test R76.11 Active 313076625 Problem Generalized anxiety disorder F41.1 Active 88858484 Problem Pain R52 Active 80978220 Problem Anxiety F41.9 Active 67457948 Problem PVD (peripheral vascular disease) I73.9 Active 152007889 Problem Pulmonary emphysema, unspecified emphysema type J43.9 Active 80222367 Problem Hyperlipidemia, unspecified hyperlipidemia type E78.5 Active 09832797 Problem Peripheral vascular disease due to secondary diabetes E13.51 Active 8389453 Problem Cerebrovascular accident (CVA) due to other mechanism I63.8 Active 771809168 Problem Essential hypertension I10 Active 25966882 Problem Acquired hypothyroidism E03.9 Active 523727310 Problem Coronary artery disease involving [place] coronary artery of [place] heart without angina pectoris I25.10 Active 1643817104499 Problem Neuropathy G62.9 Active 582445382 Problem Abnormal carotid ultrasound R93.8 Active 709041665 Problem Gastroesophageal reflux disease without esophagitis K21.9 Active 963328684 Problem Long-term insulin use Z79.4 Active 554297185 ALLERGIES No Information SOCIAL HISTORY Never Assessed PLAN OF CARE VITAL SIGNS MEDICATIONS No Known Medications RESULTS No Results PROCEDURES No Known procedures IMMUNIZATIONS No Known Immunizations MEDICAL (GENERAL) HISTORY Type Description Date Hospitalization History [facility] March 2015
--- OUTSIDE RECORDS SUMMARY | 2017-05-11 06:34 | XMS REPORT ---
Author Author STEPHANIE CHRISTIANSEN 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 Active 441871396 Problem Depression F32.9 Active 45217291 Problem Vascular dementia F01.50 Active 943629155 Problem Nonintractable epilepsy without status epilepticus, unspecified epilepsy type G40.909 Active 164581134 Problem Pseudobulbar affect F48.2 Active 92155792 Problem Recurrent major depressive disorder, remission status unspecified F33.9 Active 00492872 Problem Positive TB test R76.11 Active 260117197 Problem Generalized anxiety disorder F41.1 Active 47929620 Problem Pain R52 Active 85576261 Problem Anxiety F41.9 Active 58736115 Problem PVD (peripheral vascular disease) I73.9 Active 094631095 Problem Pulmonary emphysema, unspecified emphysema type J43.9 Active 25047458 Problem Hyperlipidemia, unspecified hyperlipidemia type E78.5 Active 10253625 Problem Peripheral vascular disease due to secondary diabetes E13.51 Active 6472090 Problem Cerebrovascular accident (CVA) due to other mechanism I63.8 Active 388633301 Problem Essential hypertension I10 Active 05639064 Problem Acquired hypothyroidism E03.9 Active 733007290 Problem Coronary artery disease involving [place] coronary artery of [place] heart without angina pectoris I25.10 Active 1245428288098 Problem Neuropathy G62.9 Active 258908550 Problem Abnormal carotid ultrasound R93.8 Active 319407409 Problem Gastroesophageal reflux disease without esophagitis K21.9 Active 108400416 Problem Long-term insulin use Z79.4 Active 850787432 ALLERGIES No Information SOCIAL HISTORY Never Assessed PLAN OF CARE VITAL SIGNS MEDICATIONS Medication Instructions Dosage Frequency Start Date End Date Duration Status Keppra 500 MG Orally every 12 hrs 1 tablet 12h Active Levemir 100 15 UNITS UNDER THE SKIN AT BEDTIME Active Metoprolol Succinate ER 25 MG Orally Once a day 1 tablet 24h Active Plavix 75 MG Orally Once a day 1 tablet 24h Active Citalopram Hydrobromide 40 MG Orally Once a day 1 tablet 24h Active NovoLog 100 UNIT/ML Subcutaneous 3 times a day 8 units 8h Active Levothyroxine Sodium 150 MCG Orally Once a day 1 tablet 24h Feb, Active Nuedexta 20-10 MG Orally daily x7 days, then increase to bid 1 capsule May, 30 day(s) Active Ativan 1 MG Orally Once a day as needed 1 tablet Jun, 30 days Active Depakote Sprinkles 250 mg Orally Once a day 1 capsule 24h Active Exelon 9.5 MG/24HR Transdermal Once a day 1 patch to skin 24h Jul, 30 day(s) Active Remeron 15 MG Orally Once a day 1 tablet before bedtime in the evening 24h Active Vasotec 2.5 MG Orally Once a day 1 tablet 24h Active Divalproex Sodium 125 MG Orally Once a day 2 tablets 24h Active Melatonin 3 MG Orally Once a day 1 tablet at bedtime as needed with food 24h Active Aspirin 81 mg 1 tablet by Oral route 1 time per day Jan, Active Metformin HCl 1000 MG Orally Twice a day 1 tablet with meals 12h Active Atorvastatin Calcium 10 mg Orally Once a day at HS 1 tablet Active Ultram 50 mg Orally 3 times a day 1 tablet 8h Apr, Active RESULTS No Results PROCEDURES No Known procedures IMMUNIZATIONS No Known Immunizations MEDICAL (GENERAL) HISTORY Type Description Date Hospitalization History [facility] March 2015
--- OUTSIDE RECORDS SUMMARY | 2017-05-11 06:35 | XMS REPORT ---
Author Author STEPHANIE CHRISTIANSEN [facility] Address [address] [place] [address] Care Team Providers Care Travel Clerk Name Role Phone STEPHANIE CHRISTIANSEN Unavailable PROBLEMS Type Condition ICD9-CM Code [id number] Code Onset Dates Condition Status SNOMED Code Problem Type 2 diabetes mellitus with complication E11.8 Active 61968141 Problem Vascular dementia with behavior disturbance F01.51 Active 709550516 Problem Depression F32.9 Active 16797643 Problem Vascular dementia F01.50 Active 690070988 Problem Nonintractable epilepsy without status epilepticus, unspecified epilepsy type G40.909 Active 021400160 Problem Pseudobulbar affect F48.2 Active 52738962 Problem Recurrent major depressive disorder, remission status unspecified F33.9 Active 10451521 Problem Positive TB test R76.11 Active 093393391 Problem Generalized anxiety disorder F41.1 Active 53758616 Problem Pain R52 Active 18640529 Problem Anxiety F41.9 Active 75148962 Problem PVD (peripheral vascular disease) I73.9 Active 287880752 Problem Pulmonary emphysema, unspecified emphysema type J43.9 Active 03161480 Problem Hyperlipidemia, unspecified hyperlipidemia type E78.5 Active 57860581 Problem Peripheral vascular disease due to secondary diabetes E13.51 Active 8239928 Problem Cerebrovascular accident (CVA) due to other mechanism I63.8 Active 066323667 Problem Essential hypertension I10 Active 82697027 Problem Acquired hypothyroidism E03.9 Active 972587035 Problem Coronary artery disease involving [place] coronary artery of [place] heart without angina pectoris I25.10 Active 6967377088089 Problem Neuropathy G62.9 Active 569583779 Problem Abnormal carotid ultrasound R93.8 Active 336857039 Problem Gastroesophageal reflux disease without esophagitis K21.9 Active 652661359 Problem Long-term insulin use Z79.4 Active 965988621 ALLERGIES No Information SOCIAL HISTORY Never Assessed PLAN OF CARE VITAL SIGNS MEDICATIONS Medication Instructions Dosage Frequency Start Date End Date Duration Status Melatonin 3 MG Orally Once a day 1 tablet at bedtime 24h Active Cholecalciferol 400 UNIT Orally Once a day 1 tablet 24h Active Plavix 75 MG Orally Once a day 1 tablet 24h Active Metoprolol Tartrate 25 MG Orally Twice a day 1 tablet with food 12h Active Aspir-81 81 MG Orally Once a day 1 tablet 24h Active Metformin HCl 1000 MG Orally Twice a day 1 tablet with meals 12h Active Synthroid 150 MCG Orally Once a day 1 tablet on an empty stomach in the morning 24h Active Divalproex Sodium 125 MG Orally 4 times a day 2 capsules 6h Active Klonopin 0.5 MG Orally Twice a day 1 tablet 12h August, 28 days Active Lactobacillus - Orally 4 times a day 1 tablet 6h Active Simvastatin 10 MG Orally Once a day 1 tablet in the evening 24h Active NovoLog 100 UNIT/ML Subcutaneous 3 times a day 3 units 8h Active Remeron 15 MG Orally Once a day 1 tablet at bedtime 24h Active Exelon 9.5 MG/24HR Transdermal Once a day 1 patch to skin 24h Active Clonidine HCl 0.2 MG Orally twice a day 1 tablet 12h Active Mylanta 200-200-20 MG/5ML Orally every 4 hrs 30 ml as needed 4h Active Levetiracetam 500 mg Orally Twice a day 1 tablet 12h Active Vasotec 2.5 MG Orally Once a day 1 tablet 24h Active Celexa 40 mg Orally Once a day 1 tablet 24h Active Levemir 100 UNIT/ML Subcutaneous at bedtime 4 units Active Ultram 50 mg Orally 3 times a day 1 tablet 8h Apr, 28 days Active RESULTS No Results PROCEDURES No Known procedures IMMUNIZATIONS No Known Immunizations MEDICAL (GENERAL) HISTORY Type Description Date Hospitalization History [facility] March 2015
--- OUTSIDE RECORDS SUMMARY | 2017-05-11 06:35 | XMS REPORT ---
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 Active 972544398 Problem Depression F32.9 Active 63463287 Problem Vascular dementia F01.50 Active 264578009 Problem Nonintractable epilepsy without status epilepticus, unspecified epilepsy type G40.909 Active 232431738 Problem Pseudobulbar affect F48.2 Active 17489919 Problem Recurrent major depressive disorder, remission status unspecified F33.9 Active 85923310 Problem Positive TB test R76.11 Active 188493787 Problem Generalized anxiety disorder F41.1 Active 95895982 Problem Pain R52 Active 19072855 Problem Anxiety F41.9 Active 67537146 Problem PVD (peripheral vascular disease) I73.9 Active 519757646 Problem Pulmonary emphysema, unspecified emphysema type J43.9 Active 87580697 Problem Hyperlipidemia, unspecified hyperlipidemia type E78.5 Active 48296568 Problem Peripheral vascular disease due to secondary diabetes E13.51 Active 2874612 Problem Cerebrovascular accident (CVA) due to other mechanism I63.8 Active 758136012 Problem Essential hypertension I10 Active 82387544 Problem Acquired hypothyroidism E03.9 Active 035413692 Problem Coronary artery disease involving [place] coronary artery of [place] heart without angina pectoris I25.10 Active 8037973679809 Problem Neuropathy G62.9 Active 524702283 Problem Abnormal carotid ultrasound R93.8 Active 627142416 Problem Gastroesophageal reflux disease without esophagitis K21.9 Active 473112175 Problem Long-term insulin use Z79.4 Active 925273162 ALLERGIES No Information SOCIAL HISTORY Never Assessed PLAN OF CARE VITAL SIGNS MEDICATIONS Unknown Medications RESULTS No Results PROCEDURES No Known procedures IMMUNIZATIONS No Known Immunizations MEDICAL (GENERAL) HISTORY Type Description Date Hospitalization History [facility] March 2015
--- OUTSIDE RECORDS SUMMARY | 2017-05-11 06:35 | XMS REPORT ---
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 Active 555650232 Problem Depression F32.9 Active 43942159 Problem Vascular dementia F01.50 Active 161410090 Problem Nonintractable epilepsy without status epilepticus, unspecified epilepsy type G40.909 Active 842306379 Problem Pseudobulbar affect F48.2 Active 45971819 Problem Recurrent major depressive disorder, remission status unspecified F33.9 Active 32778689 Problem Positive TB test R76.11 Active 117912891 Problem Generalized anxiety disorder F41.1 Active 29369926 Problem Pain R52 Active 35519621 Problem Anxiety F41.9 Active 13699984 Problem PVD (peripheral vascular disease) I73.9 Active 528567701 Problem Pulmonary emphysema, unspecified emphysema type J43.9 Active 38929144 Problem Hyperlipidemia, unspecified hyperlipidemia type E78.5 Active 86014170 Problem Peripheral vascular disease due to secondary diabetes E13.51 Active 6721053 Problem Cerebrovascular accident (CVA) due to other mechanism I63.8 Active 176357352 Problem Essential hypertension I10 Active 71382902 Problem Acquired hypothyroidism E03.9 Active 479635266 Problem Coronary artery disease involving [place] coronary artery of [place] heart without angina pectoris I25.10 Active 0598369623421 Problem Neuropathy G62.9 Active 506508162 Problem Abnormal carotid ultrasound R93.8 Active 537851554 Problem Gastroesophageal reflux disease without esophagitis K21.9 Active 054849289 Problem Long-term insulin use Z79.4 Active 268529094 ALLERGIES Unknown Allergies SOCIAL HISTORY No smoking Hx information available PLAN OF CARE VITAL SIGNS MEDICATIONS Medication Instructions Dosage Frequency Start Date End Date Duration Status Ativan 1 MG Orally twice a day 1 tablet 12h 12 Jun, 2014 28 days Active RESULTS No Results PROCEDURES No Known procedures IMMUNIZATIONS No Known Immunizations
--- OUTSIDE RECORDS SUMMARY | 2017-05-11 06:36 | XMS REPORT ---
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 Active 760602093 Problem Depression F32.9 Active 51566219 Problem Vascular dementia F01.50 Active 141297006 Problem Nonintractable epilepsy without status epilepticus, unspecified epilepsy type G40.909 Active 774322099 Problem Pseudobulbar affect F48.2 Active 83761719 Problem Recurrent major depressive disorder, remission status unspecified F33.9 Active 89156290 Problem Positive TB test R76.11 Active 815617907 Problem Generalized anxiety disorder F41.1 Active 47137489 Problem Pain R52 Active 80829080 Problem Anxiety F41.9 Active 64207870 Problem PVD (peripheral vascular disease) I73.9 Active 994713865 Problem Pulmonary emphysema, unspecified emphysema type J43.9 Active 76640628 Problem Hyperlipidemia, unspecified hyperlipidemia type E78.5 Active 07534436 Problem Peripheral vascular disease due to secondary diabetes E13.51 Active 1150303 Problem Cerebrovascular accident (CVA) due to other mechanism I63.8 Active 272189061 Problem Essential hypertension I10 Active 90698992 Problem Acquired hypothyroidism E03.9 Active 213571729 Problem Coronary artery disease involving [place] coronary artery of [place] heart without angina pectoris I25.10 Active 1867079174683 Problem Neuropathy G62.9 Active 956691057 Problem Abnormal carotid ultrasound R93.8 Active 397713764 Problem Gastroesophageal reflux disease without esophagitis K21.9 Active 078252822 Problem Long-term insulin use Z79.4 Active 127703425 ALLERGIES No Information SOCIAL HISTORY Never Assessed PLAN OF CARE VITAL SIGNS MEDICATIONS No Known Medications RESULTS No Results PROCEDURES No Known procedures IMMUNIZATIONS No Known Immunizations MEDICAL (GENERAL) HISTORY Type Description Date Hospitalization History [facility] March 2015
--- OUTSIDE RECORDS SUMMARY | 2017-05-11 06:36 | XMS REPORT ---
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 Active 844329142 Problem Depression F32.9 Active 10613407 Problem Vascular dementia F01.50 Active 951258272 Problem Nonintractable epilepsy without status epilepticus, unspecified epilepsy type G40.909 Active 775604545 Problem Pseudobulbar affect F48.2 Active 69996853 Problem Recurrent major depressive disorder, remission status unspecified F33.9 Active 43339099 Problem Positive TB test R76.11 Active 392592096 Problem Generalized anxiety disorder F41.1 Active 84199075 Problem Pain R52 Active 72702729 Problem Anxiety F41.9 Active 60743475 Problem PVD (peripheral vascular disease) I73.9 Active 879554367 Problem Pulmonary emphysema, unspecified emphysema type J43.9 Active 59408448 Problem Hyperlipidemia, unspecified hyperlipidemia type E78.5 Active 04460054 Problem Peripheral vascular disease due to secondary diabetes E13.51 Active 5804305 Problem Cerebrovascular accident (CVA) due to other mechanism I63.8 Active 175341376 Problem Essential hypertension I10 Active 89386718 Problem Acquired hypothyroidism E03.9 Active 893485860 Problem Coronary artery disease involving [place] coronary artery of [place] heart without angina pectoris I25.10 Active 7868506241163 Problem Neuropathy G62.9 Active 090637369 Problem Abnormal carotid ultrasound R93.8 Active 814408366 Problem Gastroesophageal reflux disease without esophagitis K21.9 Active 345204965 Problem Long-term insulin use Z79.4 Active 168908040 ALLERGIES No Information SOCIAL HISTORY Never Assessed PLAN OF CARE VITAL SIGNS MEDICATIONS Medication Instructions Dosage Frequency Start Date End Date Duration Status Ultram 50 mg Orally 3 times a day 1 tablet 8h Apr, 28 days Active RESULTS No Results PROCEDURES No Known procedures IMMUNIZATIONS No Known Immunizations MEDICAL (GENERAL) HISTORY Type Description Date Hospitalization History [facility] March 2015
--- OUTSIDE RECORDS SUMMARY | 2017-05-11 06:36 | XMS REPORT ---
Author Author STEPHANIE CHRISTIANSEN [facility] Address [address] [place] [address] Care Team Providers Care Time Analysis Clerk Name Role Phone STEPHANIE CHRISTIANSEN Unavailable PROBLEMS Type Condition ICD9-CM Code [id number] Code Onset Dates Condition Status SNOMED Code Problem Type 2 diabetes mellitus with complication E11.8 Active 09450372 Problem Vascular dementia with behavior disturbance F01.51 Active 119322321 Problem Depression F32.9 Active 09553531 Problem Vascular dementia F01.50 Active 252470103 Problem Nonintractable epilepsy without status epilepticus, unspecified epilepsy type G40.909 Active 340216002 Problem Pseudobulbar affect F48.2 Active 50999941 Problem Recurrent major depressive disorder, remission status unspecified F33.9 Active 03072041 Problem Positive TB test R76.11 Active 071690626 Problem Generalized anxiety disorder F41.1 Active 66098872 Problem Pain R52 Active 80250145 Problem Anxiety F41.9 Active 02224080 Problem PVD (peripheral vascular disease) I73.9 Active 989458093 Problem Pulmonary emphysema, unspecified emphysema type J43.9 Active 71471762 Problem Hyperlipidemia, unspecified hyperlipidemia type E78.5 Active 02957720 Problem Peripheral vascular disease due to secondary diabetes E13.51 Active 9411101 Problem Cerebrovascular accident (CVA) due to other mechanism I63.8 Active 696505709 Problem Essential hypertension I10 Active 85470593 Problem Acquired hypothyroidism E03.9 Active 406531897 Problem Coronary artery disease involving [place] coronary artery of [place] heart without angina pectoris I25.10 Active 4138919432437 Problem Neuropathy G62.9 Active 928130000 Problem Abnormal carotid ultrasound R93.8 Active 760953256 Problem Gastroesophageal reflux disease without esophagitis K21.9 Active 754286775 Problem Long-term insulin use Z79.4 Active 301421917 ALLERGIES No Information SOCIAL HISTORY Never Assessed PLAN OF CARE VITAL SIGNS MEDICATIONS Medication Instructions Dosage Frequency Start Date End Date Duration Status Nuedexta 20-10 MG Orally daily x7 days, then increase to bid 1 capsule 10 May, 2016 30 day(s) Active RESULTS No Results PROCEDURES No Known procedures IMMUNIZATIONS No Known Immunizations MEDICAL (GENERAL) HISTORY Type Description Date Hospitalization History [facility] March 2015
--- OUTSIDE RECORDS SUMMARY | 2017-05-11 06:36 | XMS REPORT ---
Author Author STEPHANIE CHRISTIANSEN [facility] Address [address] [place] [address] Care Team Providers Care Inventory Auditor Name Role Phone STEPHANIE CHRISTIANSEN Unavailable PROBLEMS Type Condition ICD9-CM Code [id number] Code Onset Dates Condition Status SNOMED Code Problem Type 2 diabetes mellitus with complication E11.8 Active 10935035 Problem Vascular dementia with behavior disturbance F01.51 Active 185097613 Problem Depression F32.9 Active 77684159 Problem Vascular dementia F01.50 Active 648011312 Problem Nonintractable epilepsy without status epilepticus, unspecified epilepsy type G40.909 Active 761826088 Problem Pseudobulbar affect F48.2 Active 62019132 Problem Recurrent major depressive disorder, remission status unspecified F33.9 Active 83896548 Problem Positive TB test R76.11 Active 708723352 Problem Generalized anxiety disorder F41.1 Active 99812842 Problem Pain R52 Active 22888203 Problem Anxiety F41.9 Active 18292935 Problem PVD (peripheral vascular disease) I73.9 Active 041987966 Problem Pulmonary emphysema, unspecified emphysema type J43.9 Active 21633999 Problem Hyperlipidemia, unspecified hyperlipidemia type E78.5 Active 86780307 Problem Peripheral vascular disease due to secondary diabetes E13.51 Active 2912333 Problem Cerebrovascular accident (CVA) due to other mechanism I63.8 Active 323447713 Problem Essential hypertension I10 Active 94918222 Problem Acquired hypothyroidism E03.9 Active 360055617 Problem Coronary artery disease involving [place] coronary artery of [place] heart without angina pectoris I25.10 Active 2177027506411 Problem Neuropathy G62.9 Active 273227705 Problem Abnormal carotid ultrasound R93.8 Active 637672240 Problem Gastroesophageal reflux disease without esophagitis K21.9 Active 746072852 Problem Long-term insulin use Z79.4 Active 134673256 ALLERGIES No Information SOCIAL HISTORY Never Assessed PLAN OF CARE VITAL SIGNS MEDICATIONS Unknown Medications RESULTS No Results PROCEDURES No Known procedures IMMUNIZATIONS No Known Immunizations MEDICAL (GENERAL) HISTORY Type Description Date Hospitalization History [facility] March 2015
--- OUTSIDE RECORDS SUMMARY | 2017-05-11 06:36 | XMS REPORT ---
Author Author STEPHANIE CHRISTIANSEN [facility] Address [address] [place] [address] Care Team Providers Care Turbinated Bone Grinder Name Role Phone STEPHANIE CHRISTIANSEN Unavailable PROBLEMS Type Condition ICD9-CM Code USL32-NT Code Onset Dates Condition Status SNOMED Code Problem Type 2 diabetes mellitus with complication E11.8 Active 47115768 Problem Vascular dementia with behavior disturbance F01.51 Active 455867518 Problem Depression F32.9 Active 42498388 Problem Vascular dementia F01.50 Active 348766819 Problem Nonintractable epilepsy without status epilepticus, unspecified epilepsy type G40.909 Active 576851365 Problem Pseudobulbar affect F48.2 Active 63085765 Problem Recurrent major depressive disorder, remission status unspecified F33.9 Active 93554306 Problem Positive TB test R76.11 Active 985754076 Problem Generalized anxiety disorder F41.1 Active 08834343 Problem Pain R52 Active 93926438 Problem Anxiety F41.9 Active 59054304 Problem PVD (peripheral vascular disease) I73.9 Active 759183569 Problem Pulmonary emphysema, unspecified emphysema type J43.9 Active 10790620 Problem Hyperlipidemia, unspecified hyperlipidemia type E78.5 Active 56514019 Problem Peripheral vascular disease due to secondary diabetes E13.51 Active 3097190 Problem Cerebrovascular accident (CVA) due to other mechanism I63.8 Active 411839817 Problem Essential hypertension I10 Active 79091443 Problem Acquired hypothyroidism E03.9 Active 805186140 Problem Coronary artery disease involving [place] coronary artery of [place] heart without angina pectoris I25.10 Active 9897004497116 Problem Neuropathy G62.9 Active 627585438 Problem Abnormal carotid ultrasound R93.8 Active 552961070 Problem Gastroesophageal reflux disease without esophagitis K21.9 Active 107614139 Problem Long-term insulin use Z79.4 Active 660235033 ALLERGIES Unknown Allergies SOCIAL HISTORY No smoking Hx information available PLAN OF CARE VITAL SIGNS MEDICATIONS Unknown Medications RESULTS No Results PROCEDURES No Known procedures IMMUNIZATIONS No Known Immunizations
--- OUTSIDE RECORDS SUMMARY | 2017-05-11 06:37 | XMS REPORT ---
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 Active 260476902 Problem Depression F32.9 Active 76276126 Problem Vascular dementia F01.50 Active 478300602 Problem Nonintractable epilepsy without status epilepticus, unspecified epilepsy type G40.909 Active 090187226 Problem Pseudobulbar affect F48.2 Active 43841099 Problem Recurrent major depressive disorder, remission status unspecified F33.9 Active 47722924 Problem Positive TB test R76.11 Active 463491536 Problem Generalized anxiety disorder F41.1 Active 14186785 Problem Pain R52 Active 97603098 Problem Anxiety F41.9 Active 27916184 Problem PVD (peripheral vascular disease) I73.9 Active 462939685 Problem Pulmonary emphysema, unspecified emphysema type J43.9 Active 67656667 Problem Hyperlipidemia, unspecified hyperlipidemia type E78.5 Active 80192803 Problem Peripheral vascular disease due to secondary diabetes E13.51 Active 4030779 Problem Cerebrovascular accident (CVA) due to other mechanism I63.8 Active 082719209 Problem Essential hypertension I10 Active 94630496 Problem Acquired hypothyroidism E03.9 Active 341660956 Problem Coronary artery disease involving [place] coronary artery of [place] heart without angina pectoris I25.10 Active 0883522892801 Problem Neuropathy G62.9 Active 413598976 Problem Abnormal carotid ultrasound R93.8 Active 854448901 Problem Gastroesophageal reflux disease without esophagitis K21.9 Active 173557696 Problem Long-term insulin use Z79.4 Active 611465687 ALLERGIES Substance Reaction Event Type Date Status Tylenol Unknown Drug Allergy Apr, Active Hydrocodone Violated Narcotics Contract (buying drugs off the street) & failed UDS Non Drug Allergy Apr, Active Benzodiazepines Violated Narcotics Contract (Buying drugs off the street) & failed UDS Non Drug Allergy Apr, Active SOCIAL HISTORY No smoking Hx information available PLAN OF CARE VITAL SIGNS MEDICATIONS Unknown Medications RESULTS No Results PROCEDURES No Known procedures IMMUNIZATIONS No Known Immunizations
--- OUTSIDE RECORDS SUMMARY | 2017-05-11 06:37 | XMS REPORT ---
Author Author JAROD DELANEY [facility] Address [address] [place] [address] Care Team Providers Care Slate Picker Name Role Phone JAROD DELANEY Unavailable PROBLEMS Type Condition ICD9-CM Code [id number] Code Onset Dates Condition Status SNOMED Code Problem Type 2 diabetes mellitus with complication E11.8 Active 30236399 Problem Vascular dementia with behavior disturbance F01.51 Active 154254847 Problem Depression F32.9 Active 12070991 Problem Vascular dementia F01.50 Active 036985417 Problem Neuropathy G62.9 Active 310502296 Problem Pseudobulbar affect F48.2 Active 83005535 Problem Coronary artery disease involving [place] coronary artery of [place] heart without angina pectoris I25.10 Active 4386397442027 Problem Acquired hypothyroidism E03.9 Active 397159605 Problem PVD (peripheral vascular disease) I73.9 Active 304398548 Problem Pain R52 Active 30600693 Problem Anxiety F41.9 Active 45764167 Problem Generalized anxiety disorder F41.1 Active 11814272 Problem Nonintractable epilepsy without status epilepticus, unspecified epilepsy type G40.909 Active 091366726 Problem Essential hypertension I10 Active 12790747 Problem Pulmonary emphysema, unspecified emphysema type J43.9 Active 15868883 Problem Hyperlipidemia, unspecified hyperlipidemia type E78.5 Active 78457795 Problem Cerebrovascular accident (CVA) due to other mechanism I63.8 Active 908717217 Problem Positive TB test R76.11 Active 683198437 Problem Recurrent major depressive disorder, remission status unspecified F33.9 Active 38181663 Problem Abnormal carotid ultrasound R93.8 Active 995393942 Problem Peripheral vascular disease due to secondary diabetes E13.51 Active 9096118 Problem Gastroesophageal reflux disease without esophagitis K21.9 Active 080993242 Problem Long-term insulin use Z79.4 Active 830521803 ALLERGIES Unknown Allergies SOCIAL HISTORY No smoking Hx information available PLAN OF CARE VITAL SIGNS MEDICATIONS Medication Instructions Dosage Frequency Start Date End Date Duration Status tramadol 50 mg oral 3 times a day take 1 tablet 8h Jun, 28 days Active RESULTS No Results PROCEDURES No Known procedures IMMUNIZATIONS No Known Immunizations
--- OUTSIDE RECORDS SUMMARY | 2017-05-11 06:37 | XMS REPORT ---
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 Active 262955686 Problem Depression F32.9 Active 71823772 Problem Vascular dementia F01.50 Active 902590339 Problem Nonintractable epilepsy without status epilepticus, unspecified epilepsy type G40.909 Active 303547363 Problem Pseudobulbar affect F48.2 Active 65927201 Problem Recurrent major depressive disorder, remission status unspecified F33.9 Active 37044185 Problem Positive TB test R76.11 Active 654064289 Problem Generalized anxiety disorder F41.1 Active 03522633 Problem Pain R52 Active 77660045 Problem Anxiety F41.9 Active 85006562 Problem PVD (peripheral vascular disease) I73.9 Active 822234507 Problem Pulmonary emphysema, unspecified emphysema type J43.9 Active 10308768 Problem Hyperlipidemia, unspecified hyperlipidemia type E78.5 Active 93905568 Problem Peripheral vascular disease due to secondary diabetes E13.51 Active 7806273 Problem Cerebrovascular accident (CVA) due to other mechanism I63.8 Active 913467408 Problem Essential hypertension I10 Active 29357483 Problem Acquired hypothyroidism E03.9 Active 324150011 Problem Coronary artery disease involving [place] coronary artery of [place] heart without angina pectoris I25.10 Active 6614548022011 Problem Neuropathy G62.9 Active 834792729 Problem Abnormal carotid ultrasound R93.8 Active 012096797 Problem Gastroesophageal reflux disease without esophagitis K21.9 Active 591539841 Problem Long-term insulin use Z79.4 Active 716721139 ALLERGIES No Information SOCIAL HISTORY Never Assessed PLAN OF CARE VITAL SIGNS MEDICATIONS Medication Instructions Dosage Frequency Start Date End Date Duration Status Ultram 50 mg Orally 3 times a day 1 tablet 8h Apr, 28 days Active RESULTS No Results PROCEDURES No Known procedures IMMUNIZATIONS No Known Immunizations MEDICAL (GENERAL) HISTORY Type Description Date Hospitalization History [facility] March 2015
--- OUTSIDE RECORDS SUMMARY | 2017-05-11 06:37 | XMS REPORT ---
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 Active 735780782 Problem Depression F32.9 Active 09174856 Problem Vascular dementia F01.50 Active 049284797 Problem Nonintractable epilepsy without status epilepticus, unspecified epilepsy type G40.909 Active 160214968 Problem Pseudobulbar affect F48.2 Active 75590572 Problem Recurrent major depressive disorder, remission status unspecified F33.9 Active 99670519 Problem Positive TB test R76.11 Active 864116739 Problem Generalized anxiety disorder F41.1 Active 05575573 Problem Pain R52 Active 97485222 Problem Anxiety F41.9 Active 20485057 Problem PVD (peripheral vascular disease) I73.9 Active 260241307 Problem Pulmonary emphysema, unspecified emphysema type J43.9 Active 28539347 Problem Hyperlipidemia, unspecified hyperlipidemia type E78.5 Active 92863016 Problem Peripheral vascular disease due to secondary diabetes E13.51 Active 0665611 Problem Cerebrovascular accident (CVA) due to other mechanism I63.8 Active 162910497 Problem Essential hypertension I10 Active 19390700 Problem Acquired hypothyroidism E03.9 Active 228982204 Problem Coronary artery disease involving [place] coronary artery of [place] heart without angina pectoris I25.10 Active 3340522675250 Problem Neuropathy G62.9 Active 591132100 Problem Abnormal carotid ultrasound R93.8 Active 853391600 Problem Gastroesophageal reflux disease without esophagitis K21.9 Active 376724628 Problem Long-term insulin use Z79.4 Active 529606266 ALLERGIES Unknown Allergies SOCIAL HISTORY No smoking Hx information available PLAN OF CARE VITAL SIGNS MEDICATIONS Medication Instructions Dosage Frequency Start Date End Date Duration Status Ativan 1 MG Orally Once a day as needed 1 tablet Jun, 30 days Active RESULTS No Results PROCEDURES No Known procedures IMMUNIZATIONS No Known Immunizations
--- OUTSIDE RECORDS SUMMARY | 2017-05-11 06:37 | XMS REPORT ---
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 Active 921995634 Problem Depression F32.9 Active 13015455 Problem Vascular dementia F01.50 Active 932380165 Problem Nonintractable epilepsy without status epilepticus, unspecified epilepsy type G40.909 Active 751737450 Problem Pseudobulbar affect F48.2 Active 02540123 Problem Recurrent major depressive disorder, remission status unspecified F33.9 Active 71034758 Problem Positive TB test R76.11 Active 507200142 Problem Generalized anxiety disorder F41.1 Active 56910439 Problem Pain R52 Active 10866759 Problem Anxiety F41.9 Active 70867328 Problem PVD (peripheral vascular disease) I73.9 Active 717312059 Problem Pulmonary emphysema, unspecified emphysema type J43.9 Active 45557728 Problem Hyperlipidemia, unspecified hyperlipidemia type E78.5 Active 26871489 Problem Peripheral vascular disease due to secondary diabetes E13.51 Active 1466196 Problem Cerebrovascular accident (CVA) due to other mechanism I63.8 Active 797448767 Problem Essential hypertension I10 Active 67300978 Problem Acquired hypothyroidism E03.9 Active 960620420 Problem Coronary artery disease involving [place] coronary artery of [place] heart without angina pectoris I25.10 Active 0966701357663 Problem Neuropathy G62.9 Active 213601494 Problem Abnormal carotid ultrasound R93.8 Active 082292952 Problem Gastroesophageal reflux disease without esophagitis K21.9 Active 679505131 Problem Long-term insulin use Z79.4 Active 884551350 ALLERGIES Unknown Allergies SOCIAL HISTORY No smoking Hx information available PLAN OF CARE VITAL SIGNS MEDICATIONS Unknown Medications RESULTS No Results PROCEDURES No Known procedures IMMUNIZATIONS No Known Immunizations
--- OUTSIDE RECORDS SUMMARY | 2017-05-11 06:37 | XMS REPORT ---
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 Active 685286849 Problem Depression F32.9 Active 17843192 Problem Vascular dementia F01.50 Active 272209588 Problem Nonintractable epilepsy without status epilepticus, unspecified epilepsy type G40.909 Active 635951381 Problem Pseudobulbar affect F48.2 Active 80384280 Problem Recurrent major depressive disorder, remission status unspecified F33.9 Active 02085422 Problem Positive TB test R76.11 Active 112717194 Problem Generalized anxiety disorder F41.1 Active 89530110 Problem Pain R52 Active 42804600 Problem Anxiety F41.9 Active 08953134 Problem PVD (peripheral vascular disease) I73.9 Active 292784169 Problem Pulmonary emphysema, unspecified emphysema type J43.9 Active 98774835 Problem Hyperlipidemia, unspecified hyperlipidemia type E78.5 Active 16474438 Problem Peripheral vascular disease due to secondary diabetes E13.51 Active 9147739 Problem Cerebrovascular accident (CVA) due to other mechanism I63.8 Active 575669830 Problem Essential hypertension I10 Active 12776961 Problem Acquired hypothyroidism E03.9 Active 638200703 Problem Coronary artery disease involving [place] coronary artery of [place] heart without angina pectoris I25.10 Active 2729362548083 Problem Neuropathy G62.9 Active 144795473 Problem Abnormal carotid ultrasound R93.8 Active 736903265 Problem Gastroesophageal reflux disease without esophagitis K21.9 Active 555972123 Problem Long-term insulin use Z79.4 Active 588337722 ALLERGIES No Information SOCIAL HISTORY Never Assessed [...]
--- OUTSIDE RECORDS SUMMARY | 2017-05-11 06:37 | XMS REPORT ---
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 Active 898125193 Problem Depression F32.9 Active 11996979 Problem Vascular dementia F01.50 Active 398185295 Problem Nonintractable epilepsy without status epilepticus, unspecified epilepsy type G40.909 Active 125812315 Problem Pseudobulbar affect F48.2 Active 79617485 Problem Recurrent major depressive disorder, remission status unspecified F33.9 Active 27174938 Problem Positive TB test R76.11 Active 130294571 Problem Generalized anxiety disorder F41.1 Active 80500784 Problem Pain R52 Active 25919459 Problem Anxiety F41.9 Active 16810660 Problem PVD (peripheral vascular disease) I73.9 Active 261889586 Problem Pulmonary emphysema, unspecified emphysema type J43.9 Active 85590393 Problem Hyperlipidemia, unspecified hyperlipidemia type E78.5 Active 79107352 Problem Peripheral vascular disease due to secondary diabetes E13.51 Active 0277929 Problem Cerebrovascular accident (CVA) due to other mechanism I63.8 Active 856075606 Problem Essential hypertension I10 Active 98424705 Problem Acquired hypothyroidism E03.9 Active 157740380 Problem Coronary artery disease involving [place] coronary artery of [place] heart without angina pectoris I25.10 Active 6347767871682 Problem Neuropathy G62.9 Active 330346501 Problem Abnormal carotid ultrasound R93.8 Active 471066543 Problem Gastroesophageal reflux disease without esophagitis K21.9 Active 717210859 Problem Long-term insulin use Z79.4 Active 454474936 ALLERGIES No Information SOCIAL HISTORY Never Assessed PLAN OF CARE VITAL SIGNS MEDICATIONS Unknown Medications RESULTS No Results PROCEDURES No Known procedures IMMUNIZATIONS No Known Immunizations MEDICAL (GENERAL) HISTORY Type Description Date Hospitalization History [facility] March 2015
--- OUTSIDE RECORDS SUMMARY | 2017-05-11 06:37 | XMS REPORT ---
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 Active 296182113 Problem Depression F32.9 Active 85433857 Problem Vascular dementia F01.50 Active 893878057 Problem Nonintractable epilepsy without status epilepticus, unspecified epilepsy type G40.909 Active 614604909 Problem Pseudobulbar affect F48.2 Active 88365421 Problem Recurrent major depressive disorder, remission status unspecified F33.9 Active 05037285 Problem Positive TB test R76.11 Active 444163223 Problem Generalized anxiety disorder F41.1 Active 16945149 Problem Pain R52 Active 66832147 Problem Anxiety F41.9 Active 73901740 Problem PVD (peripheral vascular disease) I73.9 Active 728942326 Problem Pulmonary emphysema, unspecified emphysema type J43.9 Active 07834394 Problem Hyperlipidemia, unspecified hyperlipidemia type E78.5 Active 17838030 Problem Peripheral vascular disease due to secondary diabetes E13.51 Active 7238259 Problem Cerebrovascular accident (CVA) due to other mechanism I63.8 Active 111954993 Problem Essential hypertension I10 Active 88679930 Problem Acquired hypothyroidism E03.9 Active 563694562 Problem Coronary artery disease involving [place] coronary artery of [place] heart without angina pectoris I25.10 Active 3021948395990 Problem Neuropathy G62.9 Active 852178790 Problem Abnormal carotid ultrasound R93.8 Active 700600122 Problem Gastroesophageal reflux disease without esophagitis K21.9 Active 202116048 Problem Long-term insulin use Z79.4 Active 122233951 ALLERGIES Unknown Allergies SOCIAL HISTORY No smoking Hx information available PLAN OF CARE VITAL SIGNS MEDICATIONS Medication Instructions Dosage Frequency Start Date End Date Duration Status Ultram 50 MG Orally 3 times a day 1 tablet as needed 8h Apr, 28 days Active RESULTS No Results PROCEDURES No Known procedures IMMUNIZATIONS No Known Immunizations
--- OUTSIDE RECORDS SUMMARY | 2017-05-11 06:40 | XMS REPORT | Continuity of Care Document ---
Author Author [facility] Address Unknown Phone Unavailable Allergies Active Description Code Type Severity Reaction Onset Reported/Identified Relationship to Patient Clinical Status Yes acetaminophen [id number] Drug Allergy Moderate N/A 12/09/2011 Yes Benzodiazepines Drug Allergy N/A N/A 03/26/2012 Yes Hydrocodone Drug Allergy N/A N/A 03/26/2012 Yes Benzodiazepines Drug Allergy 03/26/2012 Yes Hydrocodone Drug Allergy 03/26/2012 Medications There is no data. Problems Date Dx Coded Attending Type Code [...] K 338.4 CHRONIC PAIN SYNDROME 10/10/2008 VENUS PHD, JE Cabrera 338.4 CHRONIC PAIN SYNDROME 10/10/2008 VENUS SUN, JE Cabrera 338.4 CHRONIC PAIN SYNDROME 10/10/2008 SHAW DO, CACHORRO K 338.4 CHRONIC PAIN SYNDROME 10/10/2008 ARSEN MASSAGE THERAPY INSTRUCTORSIMRAN Braun 338.4 CHRONIC PAIN SYNDROME 10/10/2008 ARSEN MASSAGE THERAPY INSTRUCTOR, SIMRAN 338.4 CHRONIC PAIN SYNDROME 10/10/2008 SHAW DO, CACHORRO K 338.4 CHRONIC PAIN SYNDROME 10/10/2008 TANVIR JAMES, CLARIBEL Braun 338.4 CHRONIC PAIN SYNDROME 10/10/2008 STEPHANIE CHRISTIANSEN [...] ARSEN MUÑOZ, SIMRAN 300.00 anxiety 11/15/2008 ARSEN MASSAGE THERAPY INSTRUCTOR, SIMRAN 300.00 anxiety 11/15/2008 SHAW DO, CACHORRO [...] SHAW DO, CACHORRO K 787.91 Diarrhea 12/13/2008 ARSEN MASSAGE THERAPY INSTRUCTOR, SIMRAN 465.9 Upper Respiratory Infection 12/13/2008 ARSEN MASSAGE THERAPY INSTRUCTOR, SIMRAN 787.03 Vomiting 12/13/2008 ARSEN MASSAGE THERAPY INSTRUCTOR, SIMRAN 787.91 Diarrhea 12/13/2008 ARSEN MASSAGE THERAPY INSTRUCTOR, SIMRAN 465.9 Upper Respiratory Infection 12/13/2008 ARSEN MASSAGE THERAPY INSTRUCTOR, SIMRAN 787.03 Vomiting 12/13/2008 ARSEN MASSAGE THERAPY INSTRUCTOR, SIMRAN 787.91 Diarrhea 12/13/2008 SHAW DO, CACHORRO K 465.9 Upper Respiratory Infection 12/13/2008 SHAW DO, CACHORRO K 787.03 Vomiting 12/13/2008 SHAW DO, CACHORRO K 787.91 Diarrhea 12/13/2008 CLARIBEL RAMEY MD 465.9 Upper Respiratory Infection 12/13/2008 CLARIBEL RAMEY MD N 787.03 Vomiting 12/13/2008 CLARIBEL RAMEY MD 787.91 Diarrhea 12/13/2008 ЕЛЕНАKARTHIK MUÑOZ STEPHANIE S 465.9 Upper Respiratory Infection 12/13/2008 ЕЛЕНА WANDA, STEPHANIE S 787.03 Vomiting 12/13/2008 ЕЛЕНА APRN, STEPHANIE S 787.91 Diarrhea 12/13/2008 JOLLY DELANEY MD 465.9 Upper Respiratory Infection 12/13/2008 JOLLY DELANEY MD 787.03 Vomiting 12/13/2008 JOLLY DELANEY MD 787.91 Diarrhea 12/13/2008 ЕЛЕНА MUÑOZ, STEPHANIE S 465.9 Upper Respiratory Infection 12/13/2008 ЕЛЕНА APRN, STEPHANIE S 787.03 Vomiting 12/13/2008 ЕЛЕНА MASSAGE THERAPY INSTRUCTOR, STEPHANIE S 787.91 Diarrhea 12/15/2008 SHAW DO, CACHORRO K 307.47 SI [...] 307.47 SI DYSSOMNIA NOS 12/15/2008 SHAW DO, CCAHORRO K 311 MO DEPRESS NOS 12/15/2008 SHAW [...] K 311 MO DEPRESS NOS 12/15/2008 SHAW , CACHORRO K 307.47 SI DYSSOMNIA NOS 12/15/2008 SHAW DO, CACHORRO K 311 MO DEPRESS NOS 12/15/2008 VENUS PHD, JE Cabrera 307.47 SI DYSSOMNIA NOS 12/15/2008 VENUS PHD, JE Cabrera 311 MO DEPRESS NOS 12/15/2008 VENUS PHD, JE Cabrera 307.47 SI DYSSOMNIA NOS 12/15/2008 VENUS PHD, JE Cabrera 311 MO DEPRESS NOS 12/15/2008 SHAW , CACHORRO K 307.47 SI DYSSOMNIA NOS 12/15/2008 VALERIA CASH, CACHORRO K 311 MO DEPRESS NOS 12/15/2008 ARSEN MASSAGE THERAPY INSTRUCTOR, SIMRAN 307.47 SI DYSSOMNIA NOS 12/15/2008 ARSEN MASSAGE THERAPY INSTRUCTOR, SIMRAN 311 MO DEPRESS NOS 12/15/2008 ARSEN MASSAGE THERAPY INSTRUCTOR, SIMRAN 307.47 SI DYSSOMNIA NOS 12/15/2008 ARSEN MASSAGE THERAPY INSTRUCTOR, SIMRAN 311 MO DEPRESS NOS 12/15/2008 VALERIA CASH, CACHORRO K 307.47 SI DYSSOMNIA NOS 12/15/2008 SHAW DO, CACHORRO K 311 MO DEPRESS NOS 12/15/2008 CLARIBEL RAMEY MD 307.47 SI DYSSOMNIA NOS 12/15/2008 CLARIBEL RAMEY MD N 311 MO DEPRESS NOS 12/15/2008 PAULINA CHRISTIANSEN APRNA S 307.47 SI DYSSOMNIA NOS 12/15/2008 ЕЛЕНА MUÑOZ, STEPHANIE S 311 MO DEPRESS NOS 12/15/2008 JOLLY DELANEY MD 307.47 SI DYSSOMNIA NOS 12/15/2008 JOLLY DELANEY MD 311 MO DEPRESS NOS 12/15/2008 ЕЛЕНА MUÑOZ, STEPHANIE S 307.47 SI DYSSOMNIA NOS 12/15/2008 ЕЛЕНА MUÑOZ, STEPHANIE S 311 MO DEPRESS NOS 12/28/2008 SUMIT SHAW DOA K 250.02 DIABETES MELLITUS POORLY CONTROLLED 12/28/2008 CACHORRO SHAW DO K 577.1 CHRONIC PANCREATITIS 12/28/2008 250.02 DIABETES [...] DO, CACHORRO K 577.1 CHRONIC PANCREATITIS 12/28/2008 CACHORRO SHAW DO K 250.02 DIABETES MELLITUS POORLY CONTROLLED 12/28/2008 CACHORRO SHAW DO K 577.1 CHRONIC PANCREATITIS 12/28/2008 VENUS PHD, JE Cabrera 250.02 DIABETES MELLITUS POORLY CONTROLLED 12/28/2008 VENUS PHD, JE Cabrera 577.1 CHRONIC PANCREATITIS 12/28/2008 VENUS PHD, JE Cabrera 250.02 DIABETES MELLITUS POORLY CONTROLLED 12/28/2008 VENUS SUN, JE Cabrera 577.1 CHRONIC PANCREATITIS 12/28/2008 CACHORRO SHAW DO K 250.02 DIABETES MELLITUS POORLY CONTROLLED 12/28/2008 SUMIT SHAW DOA K 577.1 CHRONIC PANCREATITIS 12/28/2008 ARSEN MASSAGE THERAPY INSTRUCTOR, SIMRAN 250.02 DIABETES MELLITUS POORLY CONTROLLED 12/28/2008 ARSEN MASSAGE THERAPY INSTRUCTOR, SIMRAN 577.1 CHRONIC PANCREATITIS 12/28/2008 ARSEN MASSAGE THERAPY INSTRUCTOR, SIMRAN 250.02 DIABETES MELLITUS POORLY CONTROLLED 12/28/2008 ARSEN MASSAGE THERAPY INSTRUCTOR, SIMRAN 577.1 CHRONIC PANCREATITIS 12/28/2008 SUMIT SHAW DOA K 250.02 DIABETES MELLITUS POORLY CONTROLLED 12/28/2008 SUMIT SHAW DOA K 577.1 CHRONIC PANCREATITIS 12/28/2008 TANVIR JAMES, CLARIBEL N 250.02 DIABETES MELLITUS POORLY CONTROLLED 12/28/2008 TANVIR JAMES, CLARIBEL Braun 577.1 CHRONIC PANCREATITIS 12/28/2008 ЕЛЕНА MUÑOZ STEPHANIE S 250.02 DIABETES MELLITUS POORLY CONTROLLED 12/28/2008 ЕЛЕНА MUÑOZ STEPHANIE S 577.1 CHRONIC PANCREATITIS 12/28/2008 JOLLY DELANEY MD 250.02 DIABETES MELLITUS POORLY CONTROLLED 12/28/2008 JOLLY DELANEY MD 577.1 CHRONIC PANCREATITIS 12/28/2008 ЕЛЕНА MUÑOZ STEPHANIE S 250.02 DIABETES MELLITUS POORLY CONTROLLED 12/28/2008 ЕЛЕНА MUÑOZ STEPHANIE S 577.1 CHRONIC PANCREATITIS 01/04/2009 CACHORRO SHAW DO 788.7 Penile Discharge 01/04/2009 788.7 Penile Discharge 01/04/2009 CACHORRO SHAW DO K 788.7 Penile Discharge 01/04/2009 CACHORRO SHAW DO K 788.7 Penile Discharge 01/04/2009 788.7 Penile Discharge 01/04/2009 CACHORRO SHAW DO 788.7 Penile Discharge 01/04/2009 788.7 Penile Discharge [...] CACHORRO K 788.7 Penile Discharge 01/04/2009 ARSEN MASSAGE THERAPY INSTRUCTOR, SIMRAN 788.7 Penile Discharge 01/04/2009 ARSEN MASSAGE THERAPY INSTRUCTOR, SIMRAN 788.7 Penile Discharge 01/04/2009 SHAW DO, CACHORRO K 788.7 Penile Discharge 01/04/2009 CLARIBEL RAMEY MD 788.7 Penile Discharge 01/04/2009 ЕЛЕНА MUÑOZ STEPHANIE S 788.7 Penile Discharge 01/04/2009 JOLLY [...] DO, CACHORRO K 302.72 IMPOTENCE 02/15/2009 JOLLY DELANEY MD 302.72 IMPOTENCE 02/15/2009 SHAW DO, CACHORRO K 302.72 IMPOTENCE 02/15/2009 SHAW DO, CACHORRO K 302.72 IMPOTENCE 02/15/2009 SHAW DO, CACHORRO K 302.72 IMPOTENCE 02/15/2009 VENUS SUN, JE Cabrera 302.72 IMPOTENCE 02/15/2009 VENUS SUN, JE Cabrera 302.72 IMPOTENCE 02/15/2009 SHAW DO, CACHORRO K 302.72 IMPOTENCE 02/15/2009 ARSEN MASSAGE THERAPY INSTRUCTOR, SIMRAN 302.72 IMPOTENCE 02/15/2009 ARSEN MASSAGE THERAPY INSTRUCTOR, SIMRAN 302.72 IMPOTENCE 02/15/2009 SHAW DO, CACHORRO K 302.72 IMPOTENCE 02/15/2009 CLARIBEL RAMEY MD 302.72 IMPOTENCE 02/15/2009 STEPHANIE CHRISTIANSEN APRN S 302.72 IMPOTENCE 02/15/2009 JOLLY DELANEY MD [...] K 724.5 Backache Unspecified 03/20/2009 VENUS SUN, EJ Cabrera 724.5 Backache Unspecified 03/20/2009 VENUS SUN, JE Cabrera 724.5 Backache Unspecified 03/20/2009 SHAW DO, CACHORRO K 724.5 Backache Unspecified 03/20/2009 SIMRAN LEGER APRN 724.5 Backache Unspecified 03/20/2009 ARSEN SIMRAN MUÑOZ 724.5 Backache Unspecified 03/20/2009 SHAW DO, CACHORRO K 724.5 Backache Unspecified 03/20/2009 TANVIR JAMES, CLARIBEL Bruan 724.5 Backache Unspecified 03/20/2009 STEPHANIE CHRISTIANSEN APRN 724.5 Backache Unspecified 03/20/2009 JOLLY DELANEY MD 724.5 Backache Unspecified 03/20/2009 STEPHANIE CHRISTIANSEN APRN 724.5 Backache Unspecified 06/09/2009 SHAW DO, CACHORRO K 304.10 SA SEDATIVE DEP 06/09/2009 SHAW DO, CACHORRO K 316 PF PSYCHIC FACTORS MED COND 06/09/2009 304.10 SA SEDATIVE DEP 06/09/2009 316 PF PSYCHIC FACTORS MED COND 06/09/2009 SHAW DO CACHORRO K 304.10 SA SEDATIVE DEP 06/09/2009 [...] 316 PF PSYCHIC FACTORS MED COND 06/09/2009 JE DONOVAN PHD 304.10 SA SEDATIVE DEP 06/09/2009 JE DONOVAN PHD 316 PF PSYCHIC FACTORS MED COND 06/09/2009 VENUS SUN, JE Cabrera 304.10 SA SEDATIVE DEP 06/09/2009 JE DONOVAN PHD 316 PF PSYCHIC FACTORS MED COND 06/09/2009 SUMIT SHAW DOA K 304.10 SA SEDATIVE DEP 06/09/2009 SHAW DO CACHORRO K 316 PF PSYCHIC FACTORS MED COND 06/09/2009 ARSEN MASSAGE THERAPY INSTRUCTOR, SIMRAN 304.10 SA SEDATIVE DEP 06/09/2009 ARSEN MASSAGE THERAPY INSTRUCTOR, SIMRAN 316 PF PSYCHIC FACTORS MED COND 06/09/2009 ARSEN MASSAGE THERAPY INSTRUCTOR, SIMRAN 304.10 SA SEDATIVE DEP 06/09/2009 ARSEN MASSAGE THERAPY INSTRUCTOR, SIMRAN 316 PF PSYCHIC FACTORS MED COND 06/09/2009 SUMIT SHAW DOA K 304.10 SA SEDATIVE DEP 06/09/2009 SUMIT SHAW DOA K 316 PF PSYCHIC FACTORS MED COND 06/09/2009 CLARIBEL RAMEY MD N 304.10 SA SEDATIVE DEP 06/09/2009 CLARIBEL RAMEY MD N 316 PF PSYCHIC FACTORS MED COND 06/09/2009 ALBERT CHRISTIANSEN APRNNDA S 304.10 SA SEDATIVE DEP 06/09/2009 ЕЛЕНА MUÑOZ STEPHANIE S 316 PF PSYCHIC FACTORS MED COND 06/09/2009 JOLLY DELANEY MD 304.10 SA SEDATIVE DEP 06/09/2009 JOLLY DELANEY MD 316 PF PSYCHIC FACTORS MED COND 06/09/2009 ЕЛЕНА MUÑOZ STEPHANIE S 304.10 SA SEDATIVE DEP 06/09/2009 ЕЛЕНА MUÑOZ STEPHANIE S 316 PF PSYCHIC FACTORS MED COND 08/07/2009 VALERIA DOSUMITA K 244.9 HYPOTHYROIDISM 08/07/2009 VALERIA CASH CACHORRO K 304.00 SA OPIOID DEPENDENCE 08/07/2009 244.9 HYPOTHYROIDISM 08/07/2009 304.00 SA OPIOID DEPENDENCE 08/07/2009 VALERIA CASH CACHORRO K 244.9 HYPOTHYROIDISM 08/07/2009 VALERIA CASH CACHORRO [...] JE Cabrera 304.00 SA OPIOID DEPENDENCE 08/07/2009 SHAW DO CACHORRO K 244.9 HYPOTHYROIDISM 08/07/2009 SHAW DO CACHORRO K 304.00 SA OPIOID DEPENDENCE 08/07/2009 ARSEN MASSAGE THERAPY INSTRUCTOR, SIMRAN 244.9 HYPOTHYROIDISM 08/07/2009 ARSEN MASSAGE THERAPY INSTRUCTOR, SIMRAN 304.00 SA OPIOID DEPENDENCE 08/07/2009 ARSEN MASSAGE THERAPY INSTRUCTOR, SIMRAN 244.9 HYPOTHYROIDISM 08/07/2009 ARSEN MASSAGE THERAPY INSTRUCTOR, SIMRAN 304.00 SA OPIOID DEPENDENCE 08/07/2009 SHAW DO CACHORRO K 244.9 HYPOTHYROIDISM 08/07/2009 SHAW DO CACHORRO K 304.00 SA OPIOID DEPENDENCE 08/07/2009 CLARIBEL RAMEY MD N 244.9 HYPOTHYROIDISM 08/07/2009 CLARIBEL RAMEY MD N 304.00 SA OPIOID DEPENDENCE 08/07/2009 ЕЛЕНА MUÑOZ, STEPHANIE S 244.9 HYPOTHYROIDISM 08/07/2009 ЕЛЕНА MUÑOZ, STEPHANIE S 304.00 SA OPIOID DEPENDENCE 08/07/2009 JOLLY DELANEY MD 244.9 HYPOTHYROIDISM 08/07/2009 JOLLY DELANEY MD 304.00 SA OPIOID DEPENDENCE 08/07/2009 ЕЛЕНАPAZ MUÑOZ, STEPHANIE S 244.9 HYPOTHYROIDISM 08/07/2009 ЕЛЕНА MUÑOZ, STEPHANIE S 304.00 SA OPIOID DEPENDENCE 08/16/2009 SUMIT SHAW DOA K 414.01 CAD 08/16/2009 SUMIT SHAW DOA K 443.9 PERIPHERAL ARTERIAL DISEASE 08/16/2009 VALERIA CASH CACHORRO K 458.0 Orthostatic Hypotension 08/16/2009 SUMIT SHAW DOA K 461.0 Acute Maxillary Sinusitis 08/16/2009 SUMIT SHAW DOA K 780.2 Syncope And Collapse 08/16/2009 414.01 CAD 08/16/2009 443.9 PERIPHERAL ARTERIAL DISEASE 08/16/2009 458.0 Orthostatic Hypotension 08/16/2009 461.0 Acute Maxillary Sinusitis 08/16/2009 780.2 Syncope And Collapse 08/16/2009 SUMIT SHAW DOA K 414.01 CAD 08/16/2009 VALERIA CASH CACHORRO K 443.9 PERIPHERAL ARTERIAL DISEASE 08/16/2009 SUMIT SHAW DOA K 458.0 Orthostatic Hypotension 08/16/2009 SUMIT SHAW DOA K 461.0 Acute Maxillary Sinusitis 08/16/2009 SHAW [...] JAMES, JOLLY 443.9 PERIPHERAL ARTERIAL DISEASE 08/16/2009 JOLLY DELANEY MD 458.0 Orthostatic Hypotension 08/16/2009 JOLLY DELANEY MD 461.0 Acute Maxillary Sinusitis 08/16/2009 ELAINA JAMES, JOLLY 780.2 Syncope And Collapse 08/16/2009 SHAW DO, [...] K 780.2 Syncope And Collapse 08/16/2009 ARSEN MASSAGE THERAPY INSTRUCTOR, SIMRAN 414.01 CAD 08/16/2009 ARSEN MASSAGE THERAPY INSTRUCTOR, SIMRAN 443.9 PERIPHERAL ARTERIAL DISEASE 08/16/2009 ARSEN MASSAGE THERAPY INSTRUCTOR, SIMRAN 458.0 Orthostatic Hypotension 08/16/2009 ARSEN MASSAGE THERAPY INSTRUCTOR, SIMRAN 461.0 Acute Maxillary Sinusitis 08/16/2009 ARSEN MASSAGE THERAPY INSTRUCTOR, SIMRAN 780.2 Syncope And Collapse 08/16/2009 ARSEN MASSAGE THERAPY INSTRUCTOR, SIMRAN 414.01 CAD 08/16/2009 ARSEN MASSAGE THERAPY INSTRUCTOR, SIMRAN 443.9 PERIPHERAL ARTERIAL DISEASE 08/16/2009 ARSEN MASSAGE THERAPY INSTRUCTOR, SIMRAN 458.0 Orthostatic Hypotension 08/16/2009 ARSEN MASSAGE THERAPY INSTRUCTOR, SIMRAN 461.0 Acute Maxillary Sinusitis 08/16/2009 ARSEN MASSAGE THERAPY INSTRUCTOR, SIMRAN 780.2 Syncope And Collapse 08/16/2009 SHAW [...] N 780.2 Syncope And Collapse 08/16/2009 ЕЛЕНА MASSAGE THERAPY INSTRUCTOR, STEPHANIE S 414.01 CAD 08/16/2009 ЕЛЕНА MASSAGE THERAPY INSTRUCTOR, STEPHANIE S 443.9 PERIPHERAL ARTERIAL DISEASE 08/16/2009 ЕЛЕНА MASSAGE THERAPY INSTRUCTOR, STEPHANIE S 458.0 Orthostatic Hypotension 08/16/2009 ЕЛЕНА MASSAGE THERAPY INSTRUCTOR, STEPHANIE S 461.0 Acute Maxillary Sinusitis 08/16/2009 ЕЛЕНА MASSAGE THERAPY INSTRUCTOR, STEPHANIE S 780.2 Syncope And Collapse 08/16/2009 ELAINA JAMES, JOLLY 414.01 CAD 08/16/2009 ELAINA JAMES, JOLLY 443.9 PERIPHERAL ARTERIAL DISEASE 08/16/2009 ELAINA JAMES, JOLLY 458.0 Orthostatic Hypotension 08/16/2009 ELAINA JAMES, JOLLY 461.0 Acute Maxillary Sinusitis 08/16/2009 JOLLY DELANEY MD 780.2 Syncope And Collapse 08/16/2009 ЕЛЕНА MASSAGE THERAPY INSTRUCTOR, STEPHANIE S 414.01 CAD 08/16/2009 ЕЛЕНА MASSAGE THERAPY INSTRUCTOR, STEPHANIE S 443.9 PERIPHERAL ARTERIAL DISEASE 08/16/2009 ЕЛЕНА MASSAGE THERAPY INSTRUCTOR, STEPHANIE S 458.0 Orthostatic Hypotension 08/16/2009 ЕЛЕНА MASSAGE THERAPY INSTRUCTOR, STEPHANIE S 461.0 Acute Maxillary Sinusitis 08/16/2009 ЕЛЕНА MASSAGE THERAPY INSTRUCTOR, STEPHANIE S 780.2 Syncope And Collapse 10/02/2009 SHAW DO, CACHORRO K 250.00 Diabetes [...] Cabrera 250.00 Diabetes Ii Controlled 10/02/2009 SHAW DO, CACHORRO K 250.00 Diabetes Ii Controlled 10/02/2009 SIMRAN LEGER APRN 250.00 Diabetes Ii Controlled 10/02/2009 ARSEN MUÑOZ, SIMRAN 250.00 Diabetes Ii Controlled 10/02/2009 SHAW DO, CACHORRO K 250.00 Diabetes Ii Controlled 10/02/2009 TANVIR JAMES, CLARIBEL Braun 250.00 Diabetes Ii Controlled 10/02/2009 ЕЛЕНА MUÑOZ, STEPHANIE S 250.00 Diabetes Ii Controlled 10/02/2009 ELAINA [...] K 272.4 HYPERLIPIDEMIA HYPERLIPOPROTEINEMIAS (Old Classification) 12/06/2009 VENUS PHD, JE Cabrera 250.60 DIABETES MELLITUS DIABETIC PERIPHERAL NEUROPATHY 12/06/2009 VENUS SUN, JE Cabrera 272.4 HYPERLIPIDEMIA HYPERLIPOPROTEINEMIAS (Old Classification) 12/06/2009 VENUS SUN, JE Cabrera 250.60 DIABETES MELLITUS DIABETIC PERIPHERAL NEUROPATHY 12/06/2009 VENUS SUN, JE Cabrera 272.4 HYPERLIPIDEMIA HYPERLIPOPROTEINEMIAS (Old Classification) 12/06/2009 SHAW DO CACHORRO K 250.60 DIABETES MELLITUS DIABETIC PERIPHERAL NEUROPATHY 12/06/2009 SHAW DO, CACHORRO K 272.4 HYPERLIPIDEMIA HYPERLIPOPROTEINEMIAS (Old Classification) 12/06/2009 ARSEN MASSAGE THERAPY INSTRUCTOR, SIMRAN 250.60 DIABETES MELLITUS DIABETIC PERIPHERAL NEUROPATHY 12/06/2009 ARSEN MASSAGE THERAPY INSTRUCTOR, SIMRAN 272.4 HYPERLIPIDEMIA HYPERLIPOPROTEINEMIAS (Old Classification) 12/06/2009 ARSEN MASSAGE THERAPY INSTRUCTOR, SIMRAN 250.60 DIABETES MELLITUS DIABETIC PERIPHERAL NEUROPATHY 12/06/2009 ARSEN MASSAGE THERAPY INSTRUCTOR, SIMRAN 272.4 HYPERLIPIDEMIA HYPERLIPOPROTEINEMIAS (Old Classification) 12/06/2009 SHAW DO CACHORRO K 250.60 DIABETES MELLITUS DIABETIC PERIPHERAL NEUROPATHY 12/06/2009 SHAW DO CACHORRO K 272.4 HYPERLIPIDEMIA HYPERLIPOPROTEINEMIAS (Old Classification) 12/06/2009 CLARIBEL RAMEY MD 250.60 DIABETES MELLITUS DIABETIC PERIPHERAL NEUROPATHY 12/06/2009 CLARIBEL RAMEY MD 272.4 HYPERLIPIDEMIA HYPERLIPOPROTEINEMIAS (Old Classification) 12/06/2009 ЕЛЕАН MUÑOZ STEPHANIE S 250.60 DIABETES MELLITUS DIABETIC PERIPHERAL NEUROPATHY 12/06/2009 ЕЛЕНА MUÑOZ, STEPHANIE S 272.4 HYPERLIPIDEMIA HYPERLIPOPROTEINEMIAS (Old Classification) 12/06/2009 JOLLY DELANEY MD 250.60 DIABETES MELLITUS DIABETIC PERIPHERAL NEUROPATHY 12/06/2009 JOLLY DELANEY MD 272.4 HYPERLIPIDEMIA HYPERLIPOPROTEINEMIAS (Old Classification) 12/06/2009 ЕЛЕНА MUÑOZ STEPHANIE S 250.60 DIABETES MELLITUS DIABETIC PERIPHERAL NEUROPATHY 12/06/2009 ЕЛЕНА MUÑOZ STEPHANIE S 272.4 HYPERLIPIDEMIA HYPERLIPOPROTEINEMIAS (Old Classification) 02/01/2010 SHAW DO CACHORRO K 296.90 UNSPECIFIED EPISODIC MOOD DISORDER 02/01/2010 296.90 UNSPECIFIED EPISODIC MOOD DISORDER 02/01/2010 SHAW DO CACHORRO K 296.90 Unspecified Episodic Mood Disorder 02/01/2010 SHAW DO, CACHORRO K 296.90 Unspecified Episodic Mood Disorder 02/01/2010 296.90 Unspecified Episodic Mood Disorder 02/01/2010 SHAW DO CACHORRO K 296.90 Unspecified Episodic Mood Disorder [...] Unspecified Episodic Mood Disorder 02/01/2010 VENUS SUN, EJ Cabrera 296.90 Unspecified Episodic Mood Disorder 02/01/2010 VENUS SUN, JE Cabrera 296.90 Unspecified Episodic Mood Disorder 02/01/2010 SHAW DO, CACHORRO K 296.90 Unspecified Episodic Mood Disorder 02/01/2010 ARSEN MASSAGE THERAPY INSTRUCTOR, SIMRAN 296.90 Unspecified Episodic Mood Disorder 02/01/2010 ARSEN MASSAGE THERAPY INSTRUCTOR, SIMRAN 296.90 Unspecified Episodic Mood Disorder 02/01/2010 SHAW DO, CACHORRO K 296.90 Unspecified Episodic Mood Disorder 02/01/2010 TANVIR JAMES, CLARIBEL Braun 296.90 Unspecified Episodic Mood Disorder 02/01/2010 PAULINA CHRISTIANSEN APRNA S 296.90 Unspecified Episodic Mood Disorder 02/01/2010 [...] K 789.00 Abdominal Pain Unspecified Site 02/07/2010 ARSEN MUÑOZ, SIMRAN 789.00 Abdominal Pain Unspecified Site 02/07/2010 ARSEN MUÑOZ SIMRAN 789.00 Abdominal Pain Unspecified Site 02/07/2010 SHAW [...] CACHORRO K 112.0 Candidiasis Of Mouth 04/16/2010 SIMRAN LEGER APRN 112.0 Candidiasis Of Mouth 04/16/2010 SIMRAN LEGER [...] AFFECTIVE DISORDER RECURRENT EPISODE UNSPECIFIED DEGREE 06/07/2010 ELAINA JAMES, JOLLY 296.30 MAJOR DEPRESSIVE AFFECTIVE DISORDER RECURRENT EPISODE UNSPECIFIED DEGREE 06/07/2010 SHAW DO, CACHORRO K 296.30 MAJOR DEPRESSIVE AFFECTIVE DISORDER RECURRENT EPISODE UNSPECIFIED DEGREE 06/07/2010 SHAW DO, CACHORRO K 296.30 MAJOR DEPRESSIVE AFFECTIVE DISORDER RECURRENT EPISODE UNSPECIFIED DEGREE 06/07/2010 SHAW DO, CACHORRO K 296.30 MAJOR DEPRESSIVE AFFECTIVE DISORDER RECURRENT EPISODE UNSPECIFIED DEGREE 06/07/2010 EJ DONOVAN PHD 296.30 MAJOR DEPRESSIVE AFFECTIVE DISORDER RECURRENT EPISODE UNSPECIFIED DEGREE 06/07/2010 JE DONOVAN PHD 296.30 MAJOR DEPRESSIVE AFFECTIVE DISORDER RECURRENT EPISODE UNSPECIFIED DEGREE 06/07/2010 SHAW DO CACHORRO K 296.30 MAJOR DEPRESSIVE AFFECTIVE DISORDER RECURRENT EPISODE UNSPECIFIED DEGREE 06/07/2010 ARSEN MASSAGE THERAPY INSTRUCTOR, SIMRAN 296.30 MAJOR DEPRESSIVE AFFECTIVE DISORDER RECURRENT EPISODE UNSPECIFIED DEGREE 06/07/2010 ARSEN MASSAGE THERAPY INSTRUCTOR, SIMRAN 296.30 MAJOR DEPRESSIVE AFFECTIVE DISORDER RECURRENT [...] DO 296.32 MO DEPRESSIVE RECURRENT MODERATE 07/03/2010 CACHORRO SHAW DO 296.32 MO DEPRESSIVE RECURRENT MODERATE 07/03/2010 VENUS SUN, JE Cabrera 296.32 MO DEPRESSIVE RECURRENT MODERATE 07/03/2010 VENUS SUN, JE Cabrera 296.32 MO DEPRESSIVE RECURRENT MODERATE 07/03/2010 CACHORRO SHAW DO 296.32 MO DEPRESSIVE RECURRENT MODERATE 07/03/2010 ARSEN MASSAGE THERAPY INSTRUCTOR, SIMRAN 296.32 MO DEPRESSIVE RECURRENT MODERATE 07/03/2010 ARSEN MASSAGE THERAPY INSTRUCTOR, SIMRAN 296.32 MO DEPRESSIVE RECURRENT MODERATE 07/03/2010 CACHORRO SHAW DO 296.32 MO DEPRESSIVE RECURRENT MODERATE 07/03/2010 TANVIR JAMES, CLARIBEL Braun 296.32 MO DEPRESSIVE RECURRENT MODERATE 07/03/2010 STEPHANIE CHRISTIANSEN APRN 296.32 MO DEPRESSIVE RECURRENT MODERATE 07/03/2010 ELAINA JAMES, JOLLY 296.32 MO DEPRESSIVE RECURRENT MODERATE 07/03/2010 STEPHANIE CHRISTIANSEN APRN 296.32 MO DEPRESSIVE RECURRENT MODERATE 10/16/2010 Ot 250.80 DIAB W OTH SPEC MANIFEST, TYPE II OR UNS 10/16/2010 Ot 924.20 CONTUSION OF FOOT 10/16/2010 Ot 959.7 LOWER LEG INJURY NOS 10/16/2010 Ot E000.8 OTHER EXTERNAL CAUSE STATUS 10/16/2010 Ot E849.0 ACCIDENT IN HOME 10/16/2010 Ot E888.9 FALL NOS 10/16/2010 Ot V58.67 LONG-TERM ( CURRENT) USE OF INSULIN 10/16/2010 Ot V58.69 OTH MED,LT, CURRENT USE 12/03/2010 CACHORRO SHAW DO 304.20 COCAINE [...] DO, CACHORRO K 304.20 COCAINE DEPENDENCE 12/03/2010 SHAW DO CACHORRO K 304.20 COCAINE DEPENDENCE 12/03/2010 SHAW DO CACHORRO K 304.20 COCAINE DEPENDENCE 12/03/2010 SUMIT SHAW DOA K 304.20 COCAINE DEPENDENCE 12/03/2010 JOLLY DELANEY MD 304.20 COCAINE DEPENDENCE 12/03/2010 SHAW DO CACHORRO [...] SIMRAN LEGER APRN 304.20 COCAINE DEPENDENCE 12/03/2010 SUMIT SHAW DOA K 304.20 COCAINE DEPENDENCE 12/03/2010 TANVIR JAMES, CLARIBEL Braun 304.20 COCAINE DEPENDENCE 12/03/2010 STEPHANIE CHRISTIANSEN APRN S 304.20 COCAINE DEPENDENCE 12/03/2010 JOLLY DELANEY MD 304.20 COCAINE DEPENDENCE 12/03/2010 STEPHANIE CHRISTIANSEN APRN [...] RESISTANT STAPHYLOCOCCUS AUREUS 01/17/2011 CACHORRO SHAW DO K 786.52 Chest Wall Pain 01/17/2011 SUMIT SHAW DOA K 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 01/17/2011 JE DONOVAN PHD 786.52 Chest Wall Pain 01/17/2011 JE DONOVAN PHD 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 01/17/2011 JE DONOVAN PHD 786.52 Chest Wall Pain 01/17/2011 JE DONOVAN PHD 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 01/17/2011 SUMIT SHAW DOA K 786.52 Chest Wall Pain 01/17/2011 SUMIT SHAW DOA K 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 01/17/2011 ARSEN MASSAGE THERAPY INSTRUCTOR, SIMRAN 786.52 Chest Wall Pain 01/17/2011 ARSEN MASSAGE THERAPY INSTRUCTOR, SIMRAN 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 01/17/2011 ARSEN MASSAGE THERAPY INSTRUCTOR, SIMRAN 786.52 Chest Wall Pain 01/17/2011 ARSEN MASSAGE THERAPY INSTRUCTOR, SIMRAN 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 01/17/2011 SUMIT SHAW DOA K 786.52 Chest Wall Pain 01/17/2011 SUMIT SHAW DOA K 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 01/17/2011 CLARIBEL RAMEY MD 786.52 Chest Wall Pain 01/17/2011 CLARIBEL RAMEY MD 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 01/17/2011 ЕЛЕНА MUÑOZ STEPHANIE S 786.52 Chest Wall Pain 01/17/2011 ЕЛЕНА MUÑOZ STEPHANIE S 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 01/17/2011 JOLLY DELANEY MD 786.52 Chest Wall Pain 01/17/2011 JOLLY DELANEY MD 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 01/17/2011 ЕЛЕНА MUÑOZ STEPHANIE S 786.52 Chest Wall Pain 01/17/2011 ЕЛЕНА MUÑOZ STEPHANIE S 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 HISTORY OF [...] K 578.1 Blood In Stool 03/18/2011 VENUS SUN, JE Cabrera 578.1 Blood In Stool 03/18/2011 VENUS SUN, JE Cabrera 578.1 Blood In Stool 03/18/2011 SHAW DO, CACHORRO K 578.1 Blood In Stool 03/18/2011 ARSEN MASSAGE THERAPY INSTRUCTOR SIMRAN 578.1 Blood In Stool 03/18/2011 ARSEN MASSAGE THERAPY INSTRUCTOR SIMRAN 578.1 Blood In Stool 03/18/2011 SHAW DO, CACHORRO K 578.1 Blood In Stool 03/18/2011 CLARIBEL RAMEY MD 578.1 Blood In Stool 03/18/2011 ЕЛЕНА MUÑOZ STEPHANIE S 578.1 Blood In Stool 03/18/2011 JOLLY DELANEY MD 578.1 Blood In Stool 03/18/2011 ЕЛЕНА MUÑOZ, STEPHANIE S 578.1 Blood In Stool 03/25/2011 SHWA DO, CACHORRO K 789.06 ABDOMINAL PAIN EPIGASTRIC [...] Cabrera V76.51 COLON CANCER SCREENING 03/25/2011 VENUS SUN, JE Cabrera 789.06 Abdominal Pain Epigastric 03/25/2011 VENUS SUN, JE Cabrera V76.51 COLON CANCER SCREENING 03/25/2011 SHAW DO, CACHORRO K 789.06 Abdominal Pain Epigastric 03/25/2011 SHAW DO, CACHORRO K V76.51 COLON CANCER SCREENING 03/25/2011 ARSEN MASSAGE THERAPY INSTRUCTOR, SIMRAN 789.06 Abdominal Pain Epigastric 03/25/2011 ARSEN MASSAGE THERAPY INSTRUCTOR, SIMRAN V76.51 COLON CANCER SCREENING 03/25/2011 ARSEN MASSAGE THERAPY INSTRUCTOR, SIMRAN 789.06 Abdominal Pain Epigastric 03/25/2011 ARSEN MASSAGE THERAPY INSTRUCTOR, SIMRAN V76.51 COLON CANCER SCREENING 03/25/2011 SHAW DO, CACHORRO K 789.06 Abdominal Pain Epigastric 03/25/2011 SHAW DO, CACHORRO K V76.51 COLON CANCER SCREENING 03/25/2011 CLARIBEL RAMEY MD 789.06 Abdominal Pain Epigastric 03/25/2011 CLARIBEL RAMEY MD V76.51 COLON CANCER SCREENING 03/25/2011 ЕЛЕНА MUÑOZ, STEPHANIE S 789.06 Abdominal Pain Epigastric 03/25/2011 ЕЛЕНА MUÑOZ, STEPHANIE S V76.51 COLON CANCER SCREENING 03/25/2011 JOLLY DELANEY MD 789.06 Abdominal Pain Epigastric 03/25/2011 JOLLY DELANEY MD V76.51 COLON CANCER SCREENING 03/25/2011 ЕЛЕНА MUÑOZ, STEPHANIE S 789.06 Abdominal Pain Epigastric 03/25/2011 [...] K V58.69 MEDICATION HIGH RISK 04/08/2011 ARSEN MASSAGE THERAPY INSTRUCTOR, SIMRAN V58.69 MEDICATION HIGH RISK 04/08/2011 ARSEN MASSAGE THERAPY INSTRUCTOR, SIMRAN V58.69 MEDICATION HIGH RISK 04/08/2011 SHAW DO, CACHORRO K V58.69 MEDICATION HIGH RISK 04/08/2011 CLARIBEL RAMEY MD V58.69 MEDICATION HIGH RISK 04/08/2011 ALBERT CHRISTIANSEN APRNNDA S V58.69 MEDICATION HIGH RISK 04/08/2011 JOLLY [...] CACHORRO K 466.0 Acute Bronchitis 06/20/2011 ARSEN MASSAGE THERAPY INSTRUCTOR, SIMRAN 466.0 Acute Bronchitis 06/20/2011 ARSEN MASSAGE THERAPY INSTRUCTOR, SIMRAN 466.0 Acute Bronchitis 06/20/2011 SHAW DO, CACHORRO K 466.0 Acute Bronchitis 06/20/2011 CLARIBEL RAMEY MD 466.0 Acute Bronchitis 06/20/2011 ЕЛЕНА MUÑOZ, STEPHANIE S 466.0 Acute Bronchitis 06/20/2011 JOLLY DELANEY MD 466.0 Acute Bronchitis 06/20/2011 ЕЛЕНА MUÑOZ, STEPHANIE S 466.0 Acute Bronchitis 2011 SHAW [...] CACHORRO K 338.29 Other Chronic Pain 2011 ELAINA JAMES, JOLLY 338.29 Other Chronic Pain 2011 SHAW DO, [...] CHRISTIANSEN APRN 338.29 Other Chronic Pain 2011 ELAINA JAMES, JOLLY 338.29 Other Chronic Pain 2011 STEPHANIE CHRISTIANSEN [...] DO, CACHORRO K 787.91 Diarrhea 11/19/2011 VENUS SUN, JE Cabrera 787.91 Diarrhea 11/19/2011 VENUS SUN, JE Cabrera 787.91 Diarrhea 11/19/2011 SHAW DO, CACHORRO K 787.91 Diarrhea 11/19/2011 SIMRAN LEGER APRN 787.91 Diarrhea 11/19/2011 SIMRAN LEGER APRN 787.91 Diarrhea 11/19/2011 CACHORRO SHAW DO 787.91 Diarrhea 11/19/2011 TANVIR JAMES, CLARIBEL Braun 787.91 Diarrhea 11/19/2011 STEPHANIE CHRISTIANSEN APRN 787.91 Diarrhea 11/19/2011 ELAINA JAMES, JOLLY 787.91 Diarrhea 11/19/2011 STEPHANIE CHRISTIANSEN APRN 787.91 Diarrhea 11/21/2011 Ot 250.00 DIAB KYLE WO COMPL, TYPE II OR UNSPEC TY 11/21/2011 Ot 780.4 DIZZINESS AND GIDDINESS 11/21/2011 Ot 802.0 NASAL BONE FX -CLOSED 11/21/2011 Ot 959.09 INJURY OF FACE AND NECK 11/21/2011 Ot E000.8 OTHER EXTERNAL CAUSE STATUS 11/21/2011 Ot E849.0 ACCIDENT IN HOME 11/21/2011 Ot E888.1 FALL STRIKING OBJECT NEC 11/21/2011 Ot V58.67 LONG-TERM ( CURRENT) USE OF INSULIN 11/21/2011 Ot V58.69 OTH MED,LT, CURRENT USE 12/10/2011 Ot 244.9 HYPOTHYROIDISM NOS 12/10/2011 Ot 250.82 DIAB W OTH SPEC MANIFEST, TYPE II OR UNS 12/10/2011 Ot 275.2 DIS MAGNESIUM METABOLISM 12/10/2011 Ot 276.51 DEHYDRATION 12/10/2011 Ot 311 DEPRESSIVE DISORDER NEC 12/10/2011 Ot 780.4 DIZZINESS AND GIDDINESS 12/10/2011 Ot 780.79 OTH MALAISE FATIGUE 12/10/2011 Ot V12.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, CEREBRAL INFARCTION 12/10/2011 Ot V58.67 LONG-TERM ( CURRENT) USE OF INSULIN 12/11/2011 CACHORRO SHAW DO [...] K 780.4 Dizziness And Vertigo 12/11/2011 VENUS PHD, JE Cabrera 780.4 Dizziness And Vertigo 12/11/2011 VENUS SUN, JE Cabrera 780.4 Dizziness And Vertigo 12/11/2011 SHAW DO, CACHORRO K 780.4 Dizziness And Vertigo 12/11/2011 ARSEN SIMRAN MUÑOZ 780.4 Dizziness And Vertigo 12/11/2011 ARSEN SIMRAN MUÑOZ 780.4 Dizziness And Vertigo 12/11/2011 SHAW DO, CACHORRO K 780.4 Dizziness And Vertigo 12/11/2011 TANVIR JAMES, CLARIBEL Braun 780.4 Dizziness And Vertigo 12/11/2011 STEPHANIE CHRISTIANSEN [...] K 724.2 Lumbago/ Low Back Pain 03/18/2012 ELAINA JAMES, JOLLY 724.2 Lumbago/ Low Back Pain 03/18/2012 SHAW [...] 724.2 Lumbago/ Low Back Pain 03/18/2012 SIMRAN LEGRE APRN 724.2 Lumbago/ Low Back Pain 03/18/2012 SHAW DO, CACHORRO K 724.2 Lumbago/ Low Back Pain 03/18/2012 TANVIR JAMES, CLARIBEL Braun 724.2 Lumbago/ Low Back Pain 03/18/2012 STEPHANIE [...] DELIRIUM DUE TO CONDITIONS CLASSIFIED ELSEWHERE 03/19/2012 IQRA LEGER APRNETTE 780.09 OR DELERIUM NOS 03/19/2012 SIMRAN LEGER APRN 293.0 DELIRIUM DUE TO CONDITIONS CLASSIFIED ELSEWHERE 03/19/2012 ARSEN MUÑOZ SIMRAN 780.09 OR DELERIUM NOS 03/19/2012 SHAW DO, [...] DELIRIUM DUE TO CONDITIONS CLASSIFIED ELSEWHERE 03/19/2012 ЕЛЕНА MANRIQUEAparna STEPHANIE Larry 780.09 OR DELERIUM NOS 03/21/2012 Ot 244.9 HYPOTHYROIDISM NOS 03/21/2012 Ot 250.02 DIAB KYLE WO COMPL, TYPE II OR UNSPEC TY 03/21/2012 Ot 300.00 ANXIETY STATE NOS 03/21/2012 Ot 305.1 TOBACCO USE DISORDER 03/21/2012 Ot 305.50 OPIOID ABUSE -UNSPEC 03/21/2012 Ot 311 DEPRESSIVE DISORDER NEC 03/21/2012 Ot 414.01 CORONARY ATHEROSCLEROSIS OF LUMMI CORON 03/21/2012 Ot 433.10 CAROTID ARTERY OCCLUSION [...] TRANSLUM CORON ANGIOPLASTY 03/21/2012 Ot V58.67 LONG-TERM ( CURRENT) USE OF INSULIN 03/25/2012 VALERIA CASH, CACHORRO K 780.50 SLEEP DISTURBANCE, UNSPECIFIED 03/25/2012 VALERIA CASH, CACHORRO K 780.50 SLEEP DISTURBANCE, UNSPECIFIED 03/25/2012 780.50 SLEEP DISTURBANCE, UNSPECIFIED 03/25/2012 VALERIA CASH CACHORRO K 780.50 SLEEP DISTURBANCE, UNSPECIFIED 03/25/2012 [...] K 780.50 SLEEP DISTURBANCE, UNSPECIFIED 03/25/2012 ARSEN MASSAGE THERAPY INSTRUCTOR, SIMRAN 780.50 SLEEP DISTURBANCE, UNSPECIFIED 03/25/2012 ARSEN MASSAGE THERAPY INSTRUCTOR, SIMRAN 780.50 SLEEP DISTURBANCE, UNSPECIFIED 03/25/2012 SHAW [...] SHAW DO, CACHORRO K 780.79 fatigue 09/09/2012 SAHW DO, CACHORRO K 780.79 fatigue 09/09/2012 SHAW DO, CACHORRO K 780.79 fatigue 09/09/2012 JOLLY DELANEY MD 780.79 fatigue 09/09/2012 SHAW DO, CACHORRO K 780.79 fatigue 09/09/2012 SHAW DO, CACHORRO K 780.79 fatigue 09/09/2012 SHAW DO, CACHORRO K 780.79 fatigue 09/09/2012 VENUS SUN, JE Cabrera 780.79 fatigue 09/09/2012 VENUS SUN, JE Cabrera 780.79 fatigue 09/09/2012 SHAW DO, CACHORRO K 780.79 fatigue 09/09/2012 ARSEN MASSAGE THERAPY INSTRUCTORIQRA BraunSIMRAN 780.79 fatigue 09/09/2012 ARSEN MASSAGE THERAPY INSTRUCTOR, SIMRAN 780.79 fatigue 09/09/2012 SHAW DO, CACHORRO K 780.79 fatigue 09/09/2012 TANVIR JAMES, CLARIBEL Braun 780.79 fatigue 09/09/2012 ЕЛЕНА MUÑOZ, STEPHANIE S 780.79 fatigue 09/09/2012 JOLLY DELANEY MD 780.79 fatigue 09/09/2012 PAULINA CHRISTIANSEN APRNA S 780.79 fatigue 11/02/2012 SHAW DO, CACHORRO [...] K 724.79 OTHER DISORDERS OF COCCYX 11/02/2012 VENUS SUN, JE Cabrera 715.16 OSTEOARTHROSIS LOCALIZED PRIMARY INVOLVING LOWER LEG 11/02/2012 VENUS SUN, JE Cabrera 724.79 OTHER DISORDERS OF COCCYX 11/02/2012 VENUS SUN, JE Cabrera 715.16 OSTEOARTHROSIS LOCALIZED PRIMARY INVOLVING LOWER LEG 11/02/2012 VENUS SUN, JE Cabrera 724.79 OTHER DISORDERS OF COCCYX 11/02/2012 CACHORRO SHAW DO K 715.16 OSTEOARTHROSIS LOCALIZED PRIMARY INVOLVING LOWER LEG 11/02/2012 CACHORRO SHAW DO K 724.79 OTHER DISORDERS OF COCCYX 11/02/2012 ARSEN MASSAGE THERAPY INSTRUCTOR, SIMRAN 715.16 OSTEOARTHROSIS LOCALIZED PRIMARY INVOLVING LOWER LEG 11/02/2012 ARSEN MASSAGE THERAPY INSTRUCTOR, SIMRAN 724.79 OTHER DISORDERS OF COCCYX 11/02/2012 ARSEN MASSAGE THERAPY INSTRUCTOR, SIMRAN 715.16 OSTEOARTHROSIS LOCALIZED PRIMARY INVOLVING LOWER LEG 11/02/2012 ARSEN MASSAGE THERAPY INSTRUCTOR, SIMRAN 724.79 OTHER DISORDERS OF COCCYX 11/02/2012 CACHORRO SHAW DO K 715.16 OSTEOARTHROSIS LOCALIZED PRIMARY INVOLVING LOWER LEG 11/02/2012 CACHORRO SHAW DO K 724.79 OTHER DISORDERS OF COCCYX 11/02/2012 TANVIR JAMES, CLARIBEL Braun 715.16 OSTEOARTHROSIS LOCALIZED PRIMARY INVOLVING LOWER LEG 11/02/2012 CLARIBEL RAMEY MD N 724.79 OTHER DISORDERS OF COCCYX 11/02/2012 ЕЛЕНА MUÑOZ STEPHANIE S 715.16 OSTEOARTHROSIS LOCALIZED PRIMARY INVOLVING LOWER LEG 11/02/2012 ЕЛЕНА MUÑOZ STEPHANIE S 724.79 OTHER DISORDERS OF COCCYX 11/02/2012 JOLLY DELANEY MD 715.16 OSTEOARTHROSIS LOCALIZED PRIMARY INVOLVING LOWER LEG 11/02/2012 JOLLY DELANEY MD 724.79 OTHER DISORDERS OF COCCYX 11/02/2012 ЕЛЕНА MUÑOZ STEPHANIE S 715.16 OSTEOARTHROSIS LOCALIZED PRIMARY INVOLVING LOWER LEG 11/02/2012 ALBERT CHRISTIANSEN APRNNDA S 724.79 OTHER DISORDERS OF COCCYX 11/06/2012 YOLY DURBIN MD Ot 786.52 PAINFUL RESPIRATION 11/06/2012 YOLY DURBIN MD Ot E000.8 OTHER EXTERNAL CAUSE STATUS 11/06/2012 YOLY DURBIN MD Ot E888.1 FALL STRIKING OBJECT NEC 01/19/2013 CACHORRO SHAW DO 728.87 MUSCLE WEAKNESS (GENERALIZED) 01/19/2013 SUMIT SHAW [...] HAZARDS TO HEALTH 01/19/2013 CACHORRO SHAW DO K 728.87 MUSCLE WEAKNESS (GENERALIZED) 01/19/2013 SUMIT SHAW DOA K 782.0 DISTURBANCE OF SKIN SENSATION 01/19/2013 VALERIA CASH CACHORRO K V15.81 PERSONAL HISTORY OF NONCOMPLIANCE WITH MEDICAL TREATMENT PRESENTING HAZARDS TO HEALTH 01/19/2013 VALERIA DO CACHORRO K 728.87 MUSCLE WEAKNESS (GENERALIZED) 01/19/2013 VALERIA CASH CACHORRO K 782.0 DISTURBANCE OF SKIN SENSATION 01/19/2013 VALERIA CASH CACHORRO K V15.81 PERSONAL HISTORY OF NONCOMPLIANCE WITH MEDICAL TREATMENT PRESENTING HAZARDS TO HEALTH 01/19/2013 VALERIA DO CACHORRO K 728.87 MUSCLE WEAKNESS (GENERALIZED) 01/19/2013 VALERIA CASH CACHORRO K 782.0 DISTURBANCE OF SKIN SENSATION 01/19/2013 VALERIA DO CACHORRO K V15.81 PERSONAL HISTORY OF [...] HAZARDS TO HEALTH 01/19/2013 SHAW CACHORRO CASH 728.87 MUSCLE WEAKNESS (GENERALIZED) 01/19/2013 VALERIA DO CACHORRO K 782.0 DISTURBANCE OF SKIN SENSATION 01/19/2013 VALERIA DO CACHORRO K V15.81 PERSONAL HISTORY OF NONCOMPLIANCE WITH MEDICAL TREATMENT PRESENTING HAZARDS TO HEALTH 01/19/2013 ARSEN MASSAGE THERAPY INSTRUCTOR, SIMRAN 728.87 MUSCLE WEAKNESS (GENERALIZED) 01/19/2013 ARSEN MASSAGE THERAPY INSTRUCTOR, SIMRAN 782.0 DISTURBANCE OF SKIN SENSATION 01/19/2013 ARSEN MASSAGE THERAPY INSTRUCTOR, SIMRAN V15.81 PERSONAL HISTORY OF NONCOMPLIANCE WITH MEDICAL TREATMENT PRESENTING HAZARDS TO HEALTH 01/19/2013 ARSEN MASSAGE THERAPY INSTRUCTOR, SIMRAN 728.87 MUSCLE WEAKNESS (GENERALIZED) 01/19/2013 ARSEN MASSAGE THERAPY INSTRUCTOR, SIMRAN 782.0 DISTURBANCE OF SKIN SENSATION 01/19/2013 ARSEN MASSAGE THERAPY INSTRUCTOR, SIMRAN V15.81 PERSONAL HISTORY OF NONCOMPLIANCE WITH MEDICAL TREATMENT PRESENTING HAZARDS TO HEALTH 01/19/2013 SHAW DO CACHORRO K 728.87 MUSCLE WEAKNESS (GENERALIZED) 01/19/2013 SHAW DO CACHORRO K 782.0 DISTURBANCE OF SKIN SENSATION 01/19/2013 SHAW DO CACHORRO K V15.81 PERSONAL HISTORY OF NONCOMPLIANCE WITH MEDICAL TREATMENT PRESENTING HAZARDS TO HEALTH 01/19/2013 CLARIBEL RAMEY MD 728.87 MUSCLE WEAKNESS (GENERALIZED) 01/19/2013 CLARIBEL RAMEY MD 782.0 DISTURBANCE OF SKIN SENSATION 01/19/2013 CLARIBEL [...] CACHORRO K 724.5 BACK PAIN, GENERAL 02/02/2013 HUERTER MD, JOLLY 724.5 BACK PAIN, GENERAL 02/02/2013 SHAW DO, CACHORRO K 724.5 BACK PAIN, GENERAL 02/02/2013 SHAW DO, CACHORRO K 724.5 BACK PAIN, GENERAL 02/02/2013 SHAW DO, CACHORRO K 724.5 BACK PAIN, GENERAL 02/02/2013 VENUS PHD, JE Cabrera 724.5 BACK PAIN, GENERAL 02/02/2013 VENUS PHD, JE Cabrera 724.5 BACK PAIN, GENERAL 02/02/2013 SHAW DO, CACHORRO K 724.5 BACK PAIN, GENERAL 02/02/2013 ARSEN MASSAGE THERAPY INSTRUCTOR, SIMRAN 724.5 BACK PAIN, GENERAL 02/02/2013 ARSEN MASSAGE THERAPY INSTRUCTOR, SMIRAN 724.5 BACK PAIN, GENERAL 02/02/2013 SHAW DO, CACHORRO K 724.5 BACK PAIN, GENERAL 02/02/2013 TANVIR JAMES, CLARIBEL Braun 724.5 BACK PAIN, GENERAL 02/02/2013 ЕЛЕНАPAZ MUÑOZ, STEPHANIE S 724.5 BACK PAIN, GENERAL 02/02/2013 ELAINA JAMES, JOLLY 724.5 BACK PAIN, GENERAL 02/02/2013 ЕЛЕНАSTEPHANIE MULLEN APRN S 724.5 BACK PAIN, GENERAL 02/16/2013 BRIAN 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 Ot 465.9 ACUTE URI NOS 02/16/2013 BRIAN 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 Ot 719.41 JOINT PAIN-SHLDER 06/03/2013 SHAW DO, [...] DO, CACHORRO K 285.9 ANEMIA 06/03/2013 ARSEN MASSAGE THERAPY INSTRUCTOR, SIMRAN 285.9 ANEMIA 06/03/2013 ARSEN MASSAGE THERAPY INSTRUCTOR SIMRAN 285.9 ANEMIA 06/03/2013 SHAW DO, CACHORRO K 285.9 ANEMIA 06/03/2013 TANVIR JAMES, CLARIBEL Braun 285.9 ANEMIA 06/03/2013 STEPHANIE CHRISTIANSEN APRN S 285.9 ANEMIA 06/03/2013 ELAINA JAMES, JOLLY 285.9 ANEMIA 06/03/2013 STEPHANIE CHRISTIANSEN APRN S 285.9 ANEMIA 06/23/2013 BRIAN 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 Ot 305.50 OPIOID ABUSE-UNSPEC 06/23/2013 BRIAN 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 Ot 780.97 ALTERED MENTAL STATUS 06/28/2013 VALERIA CASH CACHORRO K Ot 244.9 HYPOTHYROIDISM NOS 06/28/2013 VALERIA CASH CACHORRO K Ot 250.60 DIAB W NEURO MANIFEST, TYPE II OR UNSPEC 06/28/2013 VALERIA CASH CACHORRO K Ot 275.2 DIS MAGNESIUM METABOLISM 06/28/2013 SUMIT SHAW DOA K Ot 276.1 HYPOSMOLALITY 06/28/2013 VALERIA CASH CACHORRO K Ot 276.8 HYPOPOTASSEMIA 06/28/2013 SUMIT SHAW DOA K Ot 300.00 ANXIETY STATE NOS 06/28/2013 SUMIT SHAW DOA K Ot 305.1 TOBACCO USE DISORDER 06/28/2013 VALERIA CASH CACHORRO K Ot 305.90 DRUG ABUSE NEC-UNSPEC 06/28/2013 VALERIA CASH CACHORRO K Ot 311 DEPRESSIVE DISORDER NEC 06/28/2013 SUMIT SHAW DOA K Ot 345.90 EPILEPSY UNSPEC W/O MENTION INTRACTABLE 06/28/2013 SUMIT SHAW DOA K Ot 349.82 TOXIC ENCEPHALOPATHY 06/28/2013 SUMIT SHAW DOA K Ot 357.2 NEUROPATHY IN DIABETES 06/28/2013 SUMIT SHAW DOA K Ot 401.9 HYPERTENSION NOS 06/28/2013 SUMIT SHAW DOA K Ot 414.01 CORONARY ATHEROSCLEROSIS OF LUMMI CORON 06/28/2013 SUMIT SHAW DOA K Ot 433.10 CAROTID ARTERY OCCLUSION W O CEREBRAL IN 06/28/2013 SUMIT SHAW DOA K Ot 496 CHR AIRWAY OBSTRUCT NEC 06/28/2013 SUMIT SHAW DOA K Ot 518.81 ACUTE RESPIRATORY FAILURE 06/28/2013 VALERIA CASH CACHORRO K Ot 716.90 ARTHROPATHY NOS-UNSPEC 06/28/2013 VALERIA CASH CACHORRO K Ot 722.6 DISC DEGENERATION NOS 06/28/2013 SUMIT SHAW DOA K Ot 965.02 POISONING-METHADONE 06/28/2013 CACHORRO SHAW DO Ot 969.4 POIS-BENZODIAZEPINE OVALLE 06/28/2013 CACHORRO SHAW DO Ot E849.0 ACCIDENT IN HOME 06/28/2013 CACHORRO SHAW DO Ot E850.1 ACC POISON-METHADONE 06/28/2013 CACHORRO SHAW DO Ot E853.2 ACC POISN-BENZDIAZ TRANQ 06/28/2013 CACHORRO SHAW DO Ot V12.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, CEREBRAL INFARCTION 06/28/2013 CACOHRRO SHAW DO Ot V12.79 PERSONAL HISTORY OTH SPEC DIGESTIVE SYST 06/28/2013 CACHORRO SHAW DO Ot V15.81 HX OF PAST NONCOMPLIANCE 06/28/2013 VALERIA CASH CACHORRO Larios Ot V45.82 PERCUTANEOUS TRANSLUM CORON ANGIOPLASTY 06/28/2013 [...] ABNORMAL LFT (LIVER FUNCTION TEST) 07/19/2013 VENUS SUN, JE Cabrera 276.1 HYPONATREMIA 07/19/2013 JE DONOVAN PHD 790.6 ABNORMAL LFT (LIVER FUNCTION TEST) 07/19/2013 JE DONOVAN PHD 276.1 HYPONATREMIA 07/19/2013 JE DONOVAN PHD 790.6 ABNORMAL LFT (LIVER FUNCTION TEST) 07/19/2013 CACHORRO SHAW DO K 276.1 HYPONATREMIA 07/19/2013 CACHORRO SHAW DO K 790.6 ABNORMAL LFT (LIVER FUNCTION TEST) 07/19/2013 ARSEN MASSAGE THERAPY INSTRUCTOR, SIMRAN 276.1 HYPONATREMIA 07/19/2013 ARSEN MASSAGE THERAPY INSTRUCTOR, SIMRAN 790.6 ABNORMAL LFT (LIVER FUNCTION TEST) 07/19/2013 ARSEN MASSAGE THERAPY INSTRUCTOR, SIMRAN 276.1 HYPONATREMIA 07/19/2013 ARSEN MASSAGE THERAPY INSTRUCTOR, SIMRAN 790.6 ABNORMAL LFT (LIVER FUNCTION TEST) 07/19/2013 SHAW DO, CACHORRO K 276.1 HYPONATREMIA 07/19/2013 SHAW DO, CACHORRO K 790.6 ABNORMAL LFT (LIVER FUNCTION TEST) 07/19/2013 CLARIBEL RAMEY MD N 276.1 HYPONATREMIA 07/19/2013 CLARIBEL RAMEY MD 790.6 ABNORMAL LFT (LIVER FUNCTION TEST) 07/19/2013 STEPHANIE CHRISTIANSEN APRN S 276.1 HYPONATREMIA 07/19/2013 PAULINA CHRISTIANSEN APRNA S 790.6 ABNORMAL LFT (LIVER FUNCTION TEST) 07/19/2013 JOLLY DELANEY MD 276.1 HYPONATREMIA 07/19/2013 JOLLY DELANEY MD 790.6 ABNORMAL LFT (LIVER FUNCTION TEST) 07/19/2013 PAULINA CHRISTIANSEN APRNA S 276.1 HYPONATREMIA 07/19/2013 STEPHANIE CHRISTIANSEN APRN S 790.6 ABNORMAL LFT (LIVER FUNCTION TEST) 08/27/2013 YOLY DURBIN MD Ot 250.80 DIAB W OTH SPEC [...] INFARCT 09/10/2013 EMELIA BORJAS Ot 440.24 ATHEROSCL LUMMI ARTERIES EXTREMITIES W 09/10/2013 EMELIA BORJAS Ot [...] DO V49.72 OTHER TOE(S) AMPUTATION STATUS 10/08/2013 VENUS SUN, JE Cabrera V49.72 OTHER TOE(S) AMPUTATION STATUS 10/08/2013 VENUS SUN, JE Cabrera V49.72 OTHER TOE(S) AMPUTATION STATUS 10/08/2013 CACHORRO SHAW DO V49.72 OTHER TOE(S) AMPUTATION STATUS 10/08/2013 SIMRAN LEGER APRN V49.72 OTHER TOE(S) AMPUTATION STATUS 10/08/2013 SIMRAN LEGER APRN V49.72 OTHER TOE(S) AMPUTATION STATUS 10/08/2013 CACHORRO SHAW DO V49.72 OTHER TOE(S) AMPUTATION STATUS 10/08/2013 TANVIR JAMES, CLARIBEL Braun V49.72 OTHER TOE(S) AMPUTATION STATUS 10/08/2013 STEPHANIE CHRISTIANSEN APRN V49.72 OTHER TOE(S) AMPUTATION STATUS 10/08/2013 JOLLY DELANEY MD V49.72 OTHER TOE(S) AMPUTATION STATUS 10/08/2013 STEPHANIE CHRISTIANSEN APRN V49.72 OTHER TOE(S) AMPUTATION STATUS 11/02/2013 VENUS PHD, JE Cabrera 294.9 OR COG DIS NOS 11/02/2013 VENUS SUN, JE Cabrera 294.9 OR COG DIS NOS 11/02/2013 CACHORRO SHAW DO K 294.9 OR COG DIS NOS 11/02/2013 SIMRAN LEGER APRN 294.9 OR COG DIS NOS 11/02/2013 SIMRAN LEGER APRN 294.9 OR COG DIS NOS 11/02/2013 CACHORRO SHAW DO K 294.9 OR COG DIS NOS 11/02/2013 CLARIBEL RAMEY MD 294.9 OR COG DIS NOS 11/02/2013 [...] SHAW DO Ot 244.9 HYPOTHYROIDISM NOS 01/06/2014 SUMIT SHAW DOA K Ot 250.00 DIAB KYLE WO COMPL, TYPE II OR UNSPEC TY 01/06/2014 SUMIT SHAW DOA K Ot 272.0 PURE HYPERCHOLESTEROLEM 01/06/2014 SUMIT SHAW DOA K Ot 276.1 HYPOSMOLALITY 01/06/2014 SUMIT SHAW DOA K Ot 300.00 ANXIETY STATE NOS 01/06/2014 SUMIT SHAW DOA Ric Ot 305.00 ALCOHOL ABUSE-UNSPEC 01/06/2014 SUMIT SHAW DOA K Ot 305.1 TOBACCO USE DISORDER 01/06/2014 CACHORRO SHAW DO Ot 305.50 OPIOID ABUSE-UNSPEC 01/06/2014 CACHORRO SHAW DO Ot 345.90 EPILEPSY UNSPEC W/O MENTION INTRACTABLE 01/06/2014 CACHORRO SHAW DO Ot 401.9 HYPERTENSION NOS 01/06/2014 CACHORRO SHAW DO Ot 412 OLD MYOCARDIAL INFARCT 01/06/2014 CACHORRO SHAW DO Ot 414.01 CORONARY ATHEROSCLEROSIS OF LUMMI CORON 01/06/2014 CACHORRO SHAW DO Ot 414.8 CHR ISCHEMIC HRT DIS NEC 01/06/2014 CACHORRO SHAW DO Ot 433.10 CAROTID ARTERY OCCLUSION W O CEREBRAL IN 01/06/2014 CACHORRO SHAW DO Ot 433.30 MULT BILTRAL ARTERY OCCLUSION WO CEREBRA 01/06/2014 CACHORRO SHAW DO Ot 438.89 OTH LATE EFFECT-CEREBROVASCULAR DISEASE 01/06/2014 CACHORRO SHAW DO Ot 440.20 ATHEROSCLEROSIS LUMMI ARTERIES EXTREMIT 01/06/2014 CACHORRO SHAW DO Ot [...] RAMEY MD Ot 414.01 CORONARY ATHEROSCLEROSIS OF LUMMI CORON 01/20/2014 CLARIBEL RAMEY MD Ot 433.10 CAROTID ARTERY OCCLUSION W O CEREBRAL IN 01/20/2014 CLARIBEL RAMEY MD Ot 433.30 MULT BILTRAL ARTERY OCCLUSION WO CEREBRA 01/20/2014 CLARIBEL RAMEY MD Ot 438.89 OTH LATE EFFECT-CEREBROVASCULAR DISEASE 01/20/2014 CLARIBEL RAMEY MD Ot 440.20 ATHEROSCLEROSIS LUMMI ARTERIES EXTREMIT 01/20/2014 CLARIBEL RAMEY MD Ot [...] STRICKLAND Ot V58.69 OTH MED,LT,CURRENT USE 04/20/2014 JOLLY DELANEY MD 304.90 UNSPECIFIED DRUG DEPENDENCE UNSPECIFIED USE 04/20/2014 [...] (CURRENT) USE OF INSULIN 09/22/2014 BRIAN 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 Ot 244.9 HYPOTHYROIDISM NOS 09/22/2014 BRIAN 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 Ot 250.00 DIAB KYLE WO COMPL, TYPE II OR UNSPEC TY 09/22/2014 BRIAN 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 Ot 496 CHR AIRWAY OBSTRUCT NEC 09/22/2014 BRIAN 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 Ot 780.97 ALTERED MENTAL STATUS 09/22/2014 BRIAN 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 Ot V58.67 LONG-TERM (CURRENT) USE OF INSULIN 09/22/2014 BRIAN 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 Ot V58.69 OT MED,LT,CURRENT USE 09/22/2014 Ot 433.30 09/22/2014 Ot [...] MULT BILTRAL ARTERY OCCLUSION WO CEREBRA 02/09/2016 ЕЛЕНА, STEPHANIE MANAGER MERCHANDISING Ot E05.90 THYROTOXICOSIS, UNSP WITHOUT THYROTOXIC 02/12/2016 OJLLY DELANEY MD Ot E11.9 TYPE 2 DIABETES MELLITUS WITHOUT COMPLIC 03/01/2016 JOLLY DELANEY MD, Ot E11.9 TYPE 2 DIABETES MELLITUS WITHOUT COMPLIC 03/06/2016 JOLLY DELANEY MD, Ot E11.9 TYPE 2 DIABETES MELLITUS WITHOUT COMPLIC 05/22/2016 Ot 433.10 CAROTID ARTERY OCCLUSION W O CEREBRAL IN 05/22/2016 Ot 433.30 MULT BILTRAL ARTERY OCCLUSION WO CEREBRA 05/22/2016 STEPHANIE CHRISTIANSEN Ot E05.90 THYROTOXICOSIS, UNSP WITHOUT THYROTOXIC 05/22/2016 JOLLY DELANEY MD Ot E11.9 TYPE 2 DIABETES MELLITUS WITHOUT COMPLIC 05/22/2016 STEPHANIE CHRISTIANSENP Ot I73.9 PERIPHERAL VASCULAR DISEASE, UNSPECIFIED 05/23/2016 STEPHANIE CHRISTIANSENP Ot I73.9 PERIPHERAL VASCULAR DISEASE, UNSPECIFIED 05/23/2016 STEPHANIE CHRISTIANSENP Ot I73.9 PERIPHERAL VASCULAR DISEASE, UNSPECIFIED 05/28/2016 STEPHANIE CHRISTIANSENP Ot I73.9 PERIPHERAL VASCULAR DISEASE, UNSPECIFIED 06/05/2016 JOLLY DELANEY MD Ot Z87.440 PERSONAL HISTORY OF URINARY (TRACT) INFE 06/12/2016 BRIAN 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 Ot 305.50 OPIOID ABUSE-UNSPEC 06/12/2016 BRIAN 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 Ot 780.97 ALTERED MENTAL STATUS 06/17/2016 STEPHANIE CHRISTIANSENP Ot I73.9 PERIPHERAL VASCULAR DISEASE, UNSPECIFIED 06/19/2016 TSEPHANIE CHRISTIANSENP Ot I73.9 PERIPHERAL VASCULAR DISEASE, UNSPECIFIED 06/25/2016 JOLLY DELANEY MD Ot Z87.440 PERSONAL HISTORY OF URINARY (TRACT) INFE 07/02/2016 JOLLY DELANEY MD Ot Z87.440 PERSONAL HISTORY OF URINARY (TRACT) INFE 07/19/2016 CUCO UMANA DO Ot E11.9 TYPE 2 DIABETES MELLITUS WITHOUT COMPLIC 07/19/2016 CUCO UMANA DO Ot E83.42 HYPOMAGNESEMIA 07/19/2016 CUCO UMANA DO Ot E86.0 DEHYDRATION 07/19/2016 DONG DO, CUCO K Ot E87.1 HYPO-OSMOLALITY AND HYPONATREMIA 07/19/2016 DONG DO, CUCO K Ot G40.909 EPILEPSY, UNSP, NOT INTRACTABLE, WITHOUT 07/19/2016 DONG DO, CUCO K Ot I10 ESSENTIAL (PRIMARY) HYPERTENSION 07/19/2016 DONG DO, CUCO K Ot J44.9 CHRONIC OBSTRUCTIVE PULMONARY DISEASE, U 07/19/2016 DONG DO, CUCO K Ot R19.7 DIARRHEA, UNSPECIFIED 07/19/2016 DONG DO, CUCO K Ot R53.1 WEAKNESS 07/19/2016 DONG DO, CUCO K Ot Z79.4 WINDOW DRESSER (CURRENT) USE OF INSULIN 07/19/2016 DONG DO, CUCO K Ot Z79.82 [facility] (CURRENT) USE OF ASPIRIN 07/19/2016 DONG DO, CUCO K Ot Z79.899 OTHER WINDOW DRESSER (CURRENT) DRUG THERAPY 07/19/2016 DONG DO, CUCO K Ot Z86.73 PRSNL HX OF TIA (TIA), AND CEREB INFRC W 07/19/2016 DONG DO, CUCO K Ot Z95.5 PRESENCE OF CORONARY ANGIOPLASTY IMPLANT 07/22/2016 DONG DO, CUCO K Ot E11.9 TYPE 2 DIABETES MELLITUS WITHOUT COMPLIC 07/22/2016 DONG DO, CUCO K Ot E83.42 HYPOMAGNESEMIA 07/22/2016 DONG DO, CUCO K Ot E86.0 DEHYDRATION 07/22/2016 DONG DO, CUCO K Ot E87.1 HYPO-OSMOLALITY AND HYPONATREMIA 07/22/2016 DONG DO, CUCO K Ot G40.909 EPILEPSY, UNSP, NOT INTRACTABLE, WITHOUT 07/22/2016 DONG DO, CUCO K Ot I10 ESSENTIAL (PRIMARY) HYPERTENSION 07/22/2016 DONG DO, CUCO K Ot J44.9 CHRONIC OBSTRUCTIVE PULMONARY DISEASE, U 07/22/2016 DONG DO, CUCO K Ot R19.7 DIARRHEA, UNSPECIFIED 07/22/2016 DONG DO, CUCO K Ot R53.1 WEAKNESS 07/22/2016 DONG DO, CUCO K Ot Z79.4 [facility] (CURRENT) USE OF INSULIN 07/22/2016 DONG DO, CUCO K Ot Z79.82 WINDOW DRESSER (CURRENT) USE OF ASPIRIN 07/22/2016 CUCO UMANA DO Ot Z79.899 OTHER WINDOW DRESSER (CURRENT) DRUG THERAPY 07/22/2016 CUCO UMANA DO Ot Z86.73 PRSNL HX OF TIA (TIA), AND CEREB INFRC W 07/22/2016 DONG DO CUCO Ric Ot Z95.5 PRESENCE OF CORONARY ANGIOPLASTY IMPLANT 01/12/2017 BRIAN 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 Ot 305.50 OPIOID ABUSE-UNSPEC 01/12/2017 BRIAN 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 Ot 780.97 ALTERED MENTAL STATUS 03/05/2017 BRIDGER JUSTICE MD Ot E03.9 HYPOTHYROIDISM, UNSPECIFIED 03/05/2017 BRIDGER JUSTICE MD Ot E11.9 TYPE 2 DIABETES MELLITUS WITHOUT COMPLIC 03/05/2017 BRIDGER JUSTICE MD Ot E78.5 HYPERLIPIDEMIA, UNSPECIFIED 03/05/2017 BRIDGER JUSTICE MD Ot F17.210 NICOTINE DEPENDENCE, CIGARETTES, UNCOMPL 03/05/2017 BRIDGER JUSTICE MD Ot I10 ESSENTIAL (PRIMARY) HYPERTENSION 03/05/2017 BRIDGER JUSTICE MD Ot I25.10 ATHSCL HEART DISEASE OF [place] CORONARY 03/05/2017 BRIDGER JUSTICE MD Ot I25.2 OLD MYOCARDIAL INFARCTION 03/05/2017 BRIDGER JUSTICE MD Ot I69.320 APHASIA FOLLOWING CEREBRAL INFARCTION 03/05/2017 BRIDGER JUSTICE MD Ot I69.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 03/05/2017 BRIDGER JUSTICE MD Ot I70.201 UNSP ATHSCL LUMMI ARTERIES OF EXTREMITI 03/05/2017 BRIDGER JUSTICE MD Ot I70.245 ATHSCL LUMMI ARTERIES OF LEFT LEG W ULC 03/05/2017 RBIDGER JUSTICE MD Ot L97.529 NON-PRESSURE CHRONIC ULCER OTH PRT LEFT 03/05/2017 BRIDGER JUSTICE MD Ot Z79.02 WINDOW DRESSER (CURRENT) USE OF ANTITHROMBOTI 03/05/2017 BRIDGER JUSTICE MD Ot Z79.4 [facility] (CURRENT) USE OF INSULIN 03/05/2017 BRIDGER JUSTICE MD, Ot Z79.899 OTHER WINDOW DRESSER (CURRENT) DRUG THERAPY 03/05/2017 BRIDGER JUSTICE MD Ot Z91.14 PATIENT'S OTHER NONCOMPLIANCE WITH MEDIC 03/19/2017 MARLENY PRIETO Ot 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 03/19/2017 MARLENY PRIETO Ot 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 04/09/2017 MARLENY PRIETO Ot 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 04/09/2017 MARLENY PRIETO Ot 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 04/10/2017 MARLENY PRIETO Ot 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 04/10/2017 MARLENY PRIETO Ot 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 04/22/2017 ZULLY DPM, [place] Q Ot L97.529 NON-PRESSURE CHRONIC ULCER OTH PRT LEFT 05/07/2017 Ot 433.10 CAROTID ARTERY OCCLUSION W O CEREBRAL IN 05/07/2017 Ot 433.30 MULT BILTRAL ARTERY OCCLUSION WO CEREBRA 05/07/2017 STEPHANIE CHRISTIANSEN Ot E05.90 THYROTOXICOSIS, UNSP WITHOUT THYROTOXIC 05/07/2017 ELAINA JAMES, JOLLY Alcantara Ot E11.9 TYPE 2 DIABETES MELLITUS WITHOUT COMPLIC 05/07/2017 STEPHANIE CHRISTIANSEN Ot I73.9 PERIPHERAL VASCULAR DISEASE, UNSPECIFIED 05/07/2017 ELAINA JAMES, JOLLY Alcantara Ot Z87.440 PERSONAL HISTORY OF URINARY (TRACT) INFE 05/07/2017 MARLENY PRIETO Ot 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 05/07/2017 MARLENY PRIETO Ot 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 05/07/2017 ZULLY DPM, KENTON Q Ot L97.529 NON-PRESSURE CHRONIC ULCER OTH PRT LEFT 05/08/2017 ZULLY DPM, KENTON Q Ot M86.9 OSTEOMYELITIS, UNSPECIFIED 05/08/2017 ZULLY DPM, KENTON Q Ot Z01.818 ENCOUNTER FOR OTHER PREPROCEDURAL EXAMIN 05/08/2017 ZULLY DPM, KENTON Q Ot Z11.2 ENCOUNTER FOR SCREENING FOR OTHER BACTER Procedures Code Description Performed By Performed On 38.93 VENOUS CATHETERIZATION NEC 01/07/2011 72772 A1C (IN-HOUSE) 02/17/2012 90621 XRAY LUMBAR SPINE 2 OR 3 VIEWS 03/18/2012 92647 OXIMETRY 03/25/2012 22603 OXIMETRY 03/26/2012 17015 SLEEP STUDY 03/26/2012 76224 GLUCOSE FINGER STICK 03/26/2012 94441 SLEEP STUDY 03/27/2012 J1815 Novolin r 100 units/ml vial 100 unit/mL Solution 04/13/2012 65929 MONO TEST (IN-HOUSE) 09/09/2012 32775 MICRO ALBUMIN-IN HOUSE 09/11/2012 74521 ROUTINE VENIPUNCTURE 01/19/[address] SPINE, LUMBAR W/ AND W/O CONTRAST 01/19/2013 16029 TSH 01/19/[address] SPINE, LUMBAR W/O CONTRAST 01/21/[address] ABDOMEN AND PELVIS W/ CONTRAST 01/21/2013 50138 ROUTINE VENIPUNCTURE 06/03/2013 30615 CMP 06/03/2013 78232 TSH 06/03/2013 05054 CBC 06/03/2013 J1815 Novolin r 100 units/ml vial 100 unit/mL solution 06/03/2013 94480 A1C (IN-HOUSE) 06/03/2013 55651 ROUTINE VENIPUNCTURE 07/19/2013 00884 CMP 07/19/2013 ADDICTION YULIANA NICHOLS 07/19/2013 60377 ROUTINE VENIPUNCTURE 10/08/2013 16901 A1C (IN-HOUSE) 10/08/2013 78747 CBC 10/08/2013 1144943 GFR CALC (RESULT ONLY) 10/08/2013 50305 CMP 10/08/2013 90040 IRON SERUM 10/08/2013 23621 IRON BNDNG CAP 10/08/2013 05372 MAGNESIUM 10/08/2013 66783 VIT B 12 10/08/2013 57817 TSH 10/08/2013 90993 FOLATE 10/08/2013 47103 FERRITIN 10/08/2013 IRGROUP IRON GROUP (Iron,TIBC, Ferritin) 10/12/2013 32046 MRI EXTREMITY JOINT, UPPER LEFT, W/O CONTRAST 10/19/2013 11078 PSYCH DIAGNOSTIC EVALUATION 11/02/2013 84209 PSYTX PT&/FAMILY 30 MINUTES 11/11/2013 PHYSICAL WOUND CARE, MTC 11/12/2013 37.22 LEFT HEART CARDIAC CATH 01/05/2014 88.47 CONTR ABD ARTERIOGRM NEC 01/05/2014 88.48 CONTRAST ARTERIOGRAM-LEG 01/05/2014 88.53 LT HEART ANGIOCARDIOGRAM 01/05/2014 88.56 CORONAR ARTERIOGR-2 CATH 01/05/2014 Results Test Result Range Complete blood count (CBC) with automated white blood cell (WBC) differential - 02/09/16 15:05 Blood leukocytes automated count (number/volume) 13.3 10*3/uL 4.3-11.0 Blood erythrocytes automated count (number/volume) 4.59 10*6/uL 4.35-5.85 Venous blood hemoglobin measurement (mass/volume) 14.9 [...] Automated blood platelet mean volume measurement 11.3 [foz_us] 7.4-10.4 Automated blood neutrophils/100 leukocytes 54 % [...] Serum or plasma sodium measurement (moles/volume) 129 mmol/L 135-145 Serum or plasma potassium measurement (moles/volume) 4.8 mmol/L 3.6-5.0 Serum or plasma chloride measurement (moles/volume) 93 mmol/L 98-107 Carbon dioxide 24 mmol/L 21-32 Serum or plasma anion gap determination (moles/volume) 12 mmol/L 5-14 Serum or plasma urea nitrogen measurement (mass/volume) 14 mg/dL 7-18 Serum or plasma creatinine measurement (mass/volume) 0.88 mg/dL 0.60-1.30 Serum or plasma urea nitrogen/creatinine mass [...] Urine pH measurement by test strip 7 5-9 Specific gravity of urine by test strip 1.010 1.016- 1.022 Urine protein assay by test strip, semi-quantitative [...] 19:51 Blood leukocytes automated count (number/volume) 7.7 10*3/uL 4.3-11.0 Blood erythrocytes automated count (number/volume) 3.61 10*6/uL 4.35-5.85 Venous blood hemoglobin measurement (mass/volume) 11.4 [...] Automated blood platelet mean volume measurement 11.2 [foz_us] 7.4-10.4 Automated blood neutrophils/100 leukocytes 52 % [...] Serum or plasma sodium measurement (moles/volume) 130 mmol/L 135-145 Serum or plasma potassium measurement (moles/volume) 4.8 mmol/L 3.6-5.0 Serum or plasma chloride measurement (moles/volume) 98 mmol/L 98-107 Carbon dioxide 22 mmol/L 21-32 Serum or plasma anion gap determination (moles/volume) 10 mmol/L 5-14 Serum or plasma urea nitrogen measurement (mass/volume) 21 mg/dL 7-18 Serum or plasma creatinine measurement (mass/volume) 1.03 mg/dL 0.60-1.30 Serum or plasma urea nitrogen/creatinine mass [...] or plasma amylase measurement (enzymatic activity/volume) 40 U /L 25-125 Lipase - 07/19/16 19:51 Lipase < [...] Urine pH measurement by test strip 6 5-9 Specific gravity of urine by test strip 1.010 1.016- 1.022 Urine protein assay by test strip, semi-quantitative [...] sediment by light microscopy FEW SPERM NRG Automated blood complete blood count (hemogram) panel - 03/05/17 08:29 Blood leukocytes automated count (number/volume) 7.9 10*3/uL 4.3-11.0 Blood erythrocytes automated count (number/volume) 3.89 10*6/uL 4.35-5.85 Venous blood hemoglobin measurement (mass/volume) 12.9 g/dL 13.3-17.7 Blood hematocrit (volume fraction) 37 % 40-54 Automated erythrocyte mean corpuscular volume 96 [foz_us] 80-99 Automated erythrocyte mean corpuscular hemoglobin (mass per erythrocyte) 33 pg 25-34 Automated erythrocyte mean corpuscular hemoglobin concentration measurement ( mass/volume) 35 g/dL 32-36 Automated erythrocyte distribution width ratio 12.7 % 10.0-14.5 Automated blood platelet count (count/volume) 167 10*3/uL 130-400 Automated blood platelet mean volume measurement 10.8 [foz_us] 7.4-10.4 PT panel in platelet poor plasma by coagulation assay - 03/05/17 08:29 Prothrombin time (PT) in platelet poor plasma by coagulation assay 14.1 s 12.2-14.7 INR in platelet poor plasma or blood by coagulation assay 1.1 0.8-1.4 Activated partial thromboplastin time (aPTT) in platelet poor plasma bycoagulation assay - 03/05/17 08:29 Activated partial thromboplastin time (aPTT) in platelet poor plasma bycoagulation assay 32 s 24-35 Comprehensive metabolic panel - 03/05/17 08:29 Serum or plasma sodium measurement (moles/volume) 138 mmol/L 135-145 Serum or plasma potassium measurement (moles/volume) 4.7 mmol/L 3.6-5.0 Serum or plasma chloride measurement (moles/volume) 103 mmol/L 98-107 Carbon dioxide 28 mmol/L 21-32 Serum or plasma anion gap determination (moles/volume) 7 mmol/L 5-14 Serum or plasma urea nitrogen measurement (mass/volume) 6 mg/dL 7-18 Serum or plasma creatinine measurement (mass/volume) 0.81 mg/dL 0.60-1.30 Serum or plasma urea nitrogen/creatinine mass ratio 7 NRG Serum or plasma creatinine measurement with calculation of estimated glomerular filtration rate > NRG Serum or plasma glucose measurement (mass/volume) 119 mg/dL 70-105 Serum or plasma calcium measurement (mass/volume) 8.6 mg/dL 8.5-10.1 Serum or plasma total bilirubin measurement (mass/volume) 0.4 mg/dL 0.1-1.0 Serum or plasma alkaline phosphatase measurement (enzymatic activity/volume) 102 U/L 40-136 Serum or plasma aspartate aminotransferase measurement (enzymatic activity/ volume) 16 U/L 5-34 Serum or plasma alanine aminotransferase measurement (enzymatic activity/volume ) 11 U/L 0-55 Serum or plasma protein measurement (mass/volume) 6.4 g/dL 6.4-8.2 Serum or plasma albumin measurement (mass/volume) 3.5 g/dL 3.2-4.5 Lipid 1996 panel - 03/05/17 08:29 Serum or plasma triglyceride measurement (mass/volume) 257 mg/dL <150 Serum or plasma cholesterol measurement (mass/volume) 139 mg/dL < 200 Serum or plasma cholesterol in HDL measurement (mass/volume) 27 mg/ dL 40-60 Cholesterol in LDL [mass/volume] in serum or plasma by direct assay 68 mg/dL 1-129 Serum or plasma cholesterol in VLDL measurement (mass/volume) 51 mg/ dL 5-40 Methicillin resistant Staphylococcus aureus (MRSA) screening culture - 08:29 Methicillin resistant Staphylococcus aureus (MRSA) screening culture NEG NRG Methicillin resistant Staphylococcus aureus (MRSA) screening culture - 10:47 Methicillin resistant Staphylococcus aureus (MRSA) screening culture NEG NRG Capillary blood glucose measurement by glucometer (mass/volume) - 05/09/17 11: 30 Capillary blood glucose measurement by glucometer (mass/volume) 96 mg/dL 70-110 Gram stain microscopy - 05/09/17 14:40 GRAM STAIN RESULT FEW GRAM NEGATIVE RODS NRG Gram stain microscopy - 05/09/17 14:40 GRAM STAIN RESULT NO BACTERIA OBSERVED NRG Bacteria identification in wound by culture - 05/09/17 14:40 Bacteria identification in wound by culture NG NRG Bacteria identification in wound by culture - 05/09/17 14:40 Bacteria identification in wound by culture [id number] NRG FREE TEXT EXTERNAL ALPHA HAEMOLYTIC, ID TO FOLLOW NRG QUANTITY OF GROWTH Abundant Growth NRG Encounters ACCT No. Visit Date/Time Discharge Status Pt. Type Provider Facility Loc./Unit Complaint [id number] 06/29/2014 07:50:00 06/29/2014 23:59:59 CLS Outpatient STEPHANIE CHRISTIANSEN APRN [id number] 04/21/2014 09:44:00 04/21/2014 23:59:59 CLS Outpatient JOLLY DELANEY MD [id number] 02/16/2014 08:48:00 02/16/2014 23:59:59 CLS Outpatient STEPHANIE CHRISTIANSEN APRN [id number] 02/05/2014 06:56:00 02/05/2014 23:59:59 CLS Outpatient CLARIBEL RAMEY MD [id number] 01/21/2014 10:00:00 01/21/2014 23:59:59 CLS Outpatient CACHORRO SHAW DO [id number] 12/17/2013 09:57:00 12/17/2013 23:59:59 CLS Outpatient SIMRAN LEGER APRN [id number] 12/17/2013 09:57:00 12/17/2013 23:59:59 CLS Outpatient SIMRAN LEGER APRN [id number] 11/12/2013 09:52:00 11/12/2013 23:59:59 CLS Outpatient SHAW DOCACHORRO [id number] 11/11/2013 15:58:00 11/11/2013 23:59:59 CLS Outpatient VENUS SUN, JE Cabrera [id number] 11/02/2013 13:59:00 11/02/2013 23:59:59 CLS Outpatient JE DONOVAN PHD [id number] 10/19/2013 16:42:00 10/19/2013 23:59:59 CLS Outpatient SHAW DOCACHORRO [id number] 10/08/2013 12:05:00 10/08/2013 23:59:59 CLS Outpatient SHAW DOCACHORRO [id number] 10/08/2013 12:05:00 10/08/2013 23:59:59 CLS Outpatient SHAW DOCACHORRO [id number] 07/21/2013 17:05:00 07/21/2013 23:59:59 CLS Outpatient JOLLY DELANEY MD [id number] 07/19/2013 11:17:00 07/19/2013 23:59:59 CLS Outpatient SHAW DOCACHORRO [id number] 06/03/2013 11:22:00 06/03/2013 23:59:59 CLS Outpatient SHAW DOCACHORRO [id number] 06/03/2013 11:22:00 06/03/2013 23:59:59 CLS Outpatient SHAW DOCACHORRO [id number] 01/19/2013 11:42:00 01/19/2013 23:59:59 CLS Outpatient SHAW DOCACHORRO [id number] 01/19/2013 11:42:00 01/19/2013 23:59:59 CLS Outpatient SHAW DOCACHORRO [id number] 11/02/2012 10:38:00 11/02/2012 23:59:59 CLS Outpatient SHAW DOCACHORRO [id number] 04/22/2012 11:01:00 04/22/2012 23:59:59 CLS Outpatient [id number] 04/13/2012 09:16:00 04/13/2012 23:59:59 CLS Outpatient SHAW DOCACHORRO [id number] 03/26/2012 08:41:00 03/26/2012 23:59:59 CLS Outpatient SHAW DOCACHORRO [id number] 03/26/2012 08:41:00 03/26/2012 23:59:59 CLS Outpatient CACHORRO SHAW DO [id number] 03/18/2012 15:47:00 03/18/2012 23:59:59 CLS Outpatient [id number] 02/17/2012 16:33:00 02/17/2012 23:59:59 CLS Outpatient CACHORRO SHAW DO [id number] 09/11/2012 09:20:00 Document Registration [id number] 09/09/2012 14:05:00 Document Registration [id number] 09/09/2012 14:05:00 Document Registration [id number] 05/07/2017 10:23:00 05/07/2017 10:50:00 DIS Outpatient ZULLY DPM, KENTON Q [facility] PREOP OSTEOMYELITIS LEFT GREAT TOE [id number] 04/21/2017 10:52:00 04/21/2017 23:59:59 CLS Outpatient ZULLY DPM, [place] Q [facility] RAD CHONIC ULCERATION LEFT HALLUX [id number] 03/17/2017 12:19:00 03/17/2017 23:59:59 CLS Outpatient MARLENY PRIETO [facility] RAD I70.213 PAD [id number] 03/05/2017 07:35:00 03/05/2017 17:15:00 DIS Outpatient BRIDGER JUSTICE MD [facility] CATH NONHEALING WOUND, ABN CASI [id number] 07/19/2016 19:23:00 07/19/2016 23:10:00 DIS Emergency DONG CUCO CASH K [facility] ER DIARRHEA [id number] 06/04/2016 19:10:00 06/04/2016 23:59:59 CLS Outpatient JOLLY DELANEY MD [facility] GLC Z87.440 [id number] 05/22/2016 12:10:00 05/22/2016 23:59:59 CLS Outpatient STEPHANIE CHRISTIANSEN [facility] RAD PVD [id number] 02/09/2016 14:51:00 02/09/2016 23:59:59 CLS Outpatient JOLLY DELANEY MD [facility] LAB DIABETES [id number] 02/24/2015 13:06:00 02/24/2015 23:59:59 CLS Outpatient STEPHANIE CHRISTIANSEN [facility] RAD HYPERTHYROIDISM [id number] 09/22/2014 16:16:00 09/22/2014 18:57:00 DIS Emergency BRIAN HUGO WANDA [facility] ER AMS [id number] 09/09/2014 16:15:00 09/09/2014 18:33:00 DIS Emergency TASIA CONWAY MD [facility] ER CONFUSION,NOT FEELING WELL [id number] 04/23/2014 09:25:00 04/23/2014 09:25:00 CAN Emergency KENTRELL BRADLEY MD [facility] ER [id number] 01/03/2014 14:15:00 02/03/2014 11:01:00 DIS Outpatient CAROL STRICKLAND [facility] WOUNDCARE RIGHT TOE AMPUTATION [id number] 01/19/2014 14:25:00 01/20/2014 15:25:00 DIS Inpatient CLARIBEL RAMEY MD [facility] 4TH DIABETES OUT OF CONTROL [id number] 01/05/2014 04:58:00 01/06/2014 11:30:00 DIS Inpatient CACHORRO SHAW DO [facility] CSD EXACERBATION OF LATE CVA EFFECTS,AMS,HYPONATREMIA, [id number] 09/10/2013 16:15:00 09/10/2013 21:10:00 DIS Emergency EMELIA BORJAS [facility] ER BLACK TOE ON R FOOT [id number] 09/04/2013 13:50:00 09/04/2013 16:09:00 DIS Emergency CAROL CARRILLO MD [facility] ER LOW BLOOD SUGAR [id number] 08/27/2013 07:59:00 08/27/2013 12:10:00 DIS Emergency YOLY DURBIN MD [facility] ER HYPOGLYCEMIA [id number] 06/24/2013 10:51:00 06/28/2013 14:59:00 DIS Inpatient CACHORRO SHAW DO [facility] 4TH DEC LOC [id number] 06/23/2013 20:04:00 06/23/2013 23:00:00 DIS Emergency 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 AMS [id number] 02/16/2013 10:26:00 02/16/2013 12:57:00 DIS Emergency 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 LEFT SHOULDER/BACK PAIN [id number] 11/06/2012 14:14:00 11/06/2012 16:34:00 DIS Emergency RAMAKRISHNA JAMES, YOLY Larios [facility] ER CHEST PAIN [id number] 05/09/2017 11:26:00 PEN Preadmit MARITZA ROBLERO MD [facility] CARD PREOPERATIVE CARDIOVASCULAR EXAM [id number] 05/09/2017 11:20:00 ACT Outpatient ZULLY DPM, [place] Q [facility] SDC OSTEOMYELITIS LEFT GREAT TOE [id number] 02/10/2015 09:33:00 Document Registration [id number] 02/10/2015 09:33:00 Document Registration [id number] 02/10/2015 09:33:00 Document Registration [id number] 02/10/2015 09:33:00 Document Registration [id number] 02/10/2015 09:33:00 Document Registration [id number] 02/10/2015 09:33:00 Document Registration [id number] 09/22/2014 19:02:00 Document Registration [id number] 09/22/2014 19:02:00 Document Registration [id number] 09/22/2014 19:02:00 Document Registration [id number] 09/22/2014 19:01:00 Document Registration [id number] 03/20/2012 17:45:00 Document Registration [id number] 12/13/2011 12:01:00 Document Registration [id number] 12/09/2011 07:30:00 Document Registration [id number] 11/21/2011 08:13:00 Document Registration [id number] 10/08/2011 12:35:00 Document Registration [id number] 01/07/2011 23:01:00 Document Registration [id number] 10/16/2010 02:17:00 Document Registration [id number] 06/17/2010 04:07:00 Document Registration [id number] 02/16/2010 09:47:00 Document Registration [id number] 09/13/2009 10:01:00 Document Registration
== END | disposition home or self-care (01) ==
LOC: SDC 11:20
PROVIDERS: ATTEND Podiatrist Foot & Ankle Surgery
DX: M86.672 Other chronic osteomyelitis, left ankle and foot (principal); I25.10 Atherosclerotic heart disease of native coronary artery without angina pectoris; I10 Essential (primary) hypertension; E78.5 Hyperlipidemia, unspecified; E11.43 Type 2 diabetes mellitus with diabetic autonomic (poly)neuropathy; F17.210 Nicotine dependence, cigarettes, uncomplicated; E03.9 Hypothyroidism, unspecified; I73.9 Peripheral vascular disease, unspecified; K21.9 Gastro-esophageal reflux disease without esophagitis; F03.90 Unspecified dementia, unspecified severity, without behavioral disturbance, psychotic disturbance, mood disturbance, and anxiety; F32.9 Major depressive disorder, single episode, unspecified; F41.9 Anxiety disorder, unspecified; I25.2 Old myocardial infarction; Z79.02 Long term (current) use of antithrombotics/antiplatelets; Z79.82 Long term (current) use of aspirin; Z79.4 Long term (current) use of insulin; Z79.899 Other long term (current) drug therapy; Z95.5 Presence of coronary angioplasty implant and graft; Z86.73 Personal history of transient ischemic attack (TIA), and cerebral infarction without residual deficits
CPT/HCPCS: 82962; 87070; 87075; 87077; 87186; 87205

== ENCOUNTER → 2017-05-12 | Outpatient (CLI) | payer MEDICARE, MEDICAID ==
[~2017-05-12] MED LIST changes: -BUPIVACAINE 0.5% 30 ML (SENSORCAINE) VIAL ONE; -D5W 50 ML IVPB SOLUTION 50 ML IV ONE; -LACTATED RINGERS 1,000 ML IV SCH; -LIDOCAINE 1% INJ 20 ML (XYLOCAINE) VIAL ONE; -MIDAZOLAM 2 MG/2 ML (VERSED) VIAL ONE; -PROPOFOL INJECTION 0 ML IV ONE; -SEVOFLURANE (ULTANE) 15 ML INHAL SOLN ONE; -VANCOMYCIN 1000 MG/VIAL ONE; -ceFAZolin 1,000 MG (ANCEF) VIAL ONE; -ceFAZolin INJECTION 1,000 MG in D5W 50 ML IVPB SOLUTION 50 ML IV ONE; -fentaNYL INJECTION 100 MCG/2 ML AMP ONE
--- NOTE | 2017-05-12 17:54 | Diagnostic Imaging Report ---
INDICATION: Heart disease. PA and lateral chest. FINDINGS: Heart size and pulmonary vascularity are normal. Lungs are clear. There are no effusions or pneumothoraces. There are multiple old rib fractures in left thoracic cage. IMPRESSION: No acute abnormalities in the chest. Dictated by: Dictated on workstation # [id number]
== END ==
LOC: CARD 17:29
PROVIDERS: ATTEND Thoracic Surgery (Cardiothoracic Vascular Surgery)
DX: Z01.810 Encounter for preprocedural cardiovascular examination (principal)
CPT/HCPCS: 71046

== ENCOUNTER 2017-10-26 10:20 | Inpatient (IN) | payer MEDICARE, MEDICAID ==
[~2017-10-26] VITALS: Ht 182.9 cm; Wt 82.1 kg
[~2017-10-26 10:20] MED LIST changes: +CLON0.5T13 PO; -CLON0.5T3 PO; -METF1000 PO; +METF10002 PO
[2017-10-26] MEDS ORDERED: ASPIRIN 325 MG (5 GR) TABLET PO PRN (10:45)
[2017-10-26] MEDS ORDERED: NS IV 1000 ML 1,000 ML ONE ×2 (10:47→11:44)
[2017-10-26 10:57] LABS: BASOPHILS % (AUTO) 0 % (0-10); EOSINOPHILS # (AUTO) 0.2 10^3/uL (0.0-0.3); EOSINOPHILS % (AUTO) 2 % (0-10); HEMATOCRIT 36 % (40-54); HEMOGLOBIN 12.6 G/DL (13.3-17.7); LYMPHOCYTES # (AUTO) 0.6 X 10^3 (1.0-4.0); LYMPHOCYTES % (AUTO) 6 % (12-44); MEAN CORPUSCULAR HEMOGLOBIN 32 PG (25-34); MEAN CORPUSCULAR HGB CONC 35 G/DL (32-36); MEAN CORPUSCULAR VOLUME 91 FL (80-99); MEAN PLATELET VOLUME 11.3 FL (7.4-10.4); MONOCYTES % (AUTO) 10 % (0-12); NEUTROPHILS # (AUTO) 7.8 X 10^3 (1.8-7.8); NEUTROPHILS % (AUTO) 82 % (42-75); PLATELET COUNT 125 10^3/uL (130-400); RED BLOOD COUNT 3.93 10^6/uL (4.35-5.85); RED CELL DISTRIBUTION WIDTH 12.9 % (10.0-14.5); WHITE BLOOD COUNT 9.5 10^3/uL (4.3-11.0)
[2017-10-26 11:09] LABS: INR 1.1 (0.8-1.4); PROTHROMBIN TIME PATIENT 14.7 SEC (12.2-14.7)
--- NOTE | 2017-10-26 11:09 | ED General ---
General Chief Complaint: Fever-Adult/Adol Stated Complaint: FALL,FEVER Source of Information: Patient, EMS Exam Limitations: No Limitations History of Present Illness Date Seen by Provider: Oct 26, 2017 Time Seen by Provider: 11:04 Initial Comments This 67-year-old white male presents with a one-week history of persistent fever and progressive weakness. This precipitated a fall without injury from a standing height this morning causing the paramedics to be called. They transported the patient for further evaluation here in the emergency department. Patient denies associated headache, head trauma, stiff neck or neck injury, photophobia, productive cough, nausea vomiting or diarrhea, dysuria or frequency , skin wounds or sores, change in medications, or suspected source for the patient's fever. Patient has a history of liver failure. He is diabetic. Allergies and Home Medications Allergies Coded Allergies: acetaminophen (Verified Allergy, Intermediate, 12/09/11) Home Medications Aspirin 81 Mg Tablet.dr, 81 MG PO DAILY, (Reported) Cephalexin 500 Mg Capsule, 500 MG PO Q8H, (Reported) last dose 05/08/17 Cholecalciferol (Vitamin D3) 2,000 Unit Tablet, 4,000 UNIT PO DAILY, (Reported) Citalopram Hydrobromide 40 Mg Tablet, 40 MG PO DAILY, (Reported) Clonazepam 0.5 Mg Tablet, 0.5 MG PO EVERY AFTERNOON, (Reported) Clonazepam 0.5 Mg Tablet, 1 MG PO DAILY, (Reported) TAKES 2 (0.5MG) TABLETS Clonidine HCl 0.2 Mg Tablet, 0.2 MG PO BID, (Reported) Clopidogrel Bisulfate 75 Mg Tablet, 75 MG PO DAILY, (Reported) Divalproex Sodium 125 Mg Cap.sprink, 250 MG PO QID, (Reported) TAKES 2 (125MG) CAPSULES Donepezil HCl 10 Mg Tablet, 10 MG PO HS, (Reported) Enalapril Maleate 2.5 Mg Tablet, 2.5 MG PO DAILY, (Reported) HOLD FOR BP < 90/50 OR PULSE < 50 Insulin Aspart 300 Units/3 Ml Solution, 3 UNITS SQ AC, (Reported) NOTIFY PHYSICIAN IF LESS THAN 40 OR OVER 400 Insulin Detemir 100 Unit/1 Ml Insuln.pen, 4 UNIT SQ HS, (Reported) NOTIFY PHYSICIAN IF LESS THAN 40 OR OVER 400 Lactobacillus Acidophilus 1 Each Tablet, 1 TAB PO QID, (Reported) Levetiracetam 500 Mg Tablet, 500 MG PO BID, (Reported) Levothyroxine Sodium 150 Mcg Tablet, 150 MCG PO DAILY, (Reported) Mag Hydrox/Al Hydrox/Simeth 30 Ml Oral.susp, 30 ML PO Q4H PRN for INDIGESTION, ( Reported) Melatonin 3 Mg Tablet, 3 MG PO HS, (Reported) Metformin HCl 1,000 Mg Tablet, 1,000 MG PO BID, (Reported) Metoprolol Tartrate 25 Mg Tablet, 25 MG PO BID, (Reported) HOLD IF BP < 90/50 OR PULSE <50 Mirtazapine 15 Mg Tablet, 15 MG PO HS, (Reported) Rivastigmine 9.5 Mg Patch, 9.5 MG TD DAILY, (Reported) Simvastatin 10 Mg Tablet, 10 MG PO HS, (Reported) Tramadol HCl 50 Mg Tablet, 50 MG PO TID, (Reported) Patient Home Medication List Home Medication List Reviewed: Yes Review of Systems Constitutional: fever, weakness EENTM: No ear discharge, No blurred vision, No vision loss Respiratory: No cough Cardiovascular: No chest pain Gastrointestinal: No abdominal pain, No diarrhea, No vomiting Genitourinary: No discharge Musculoskeletal: No back pain Skin: No lesions, No rash Psychiatric/Neurological: No Symptoms Reported Hematologic/Lymphatic: No Symptoms Reported Immunological/Allergic: no symptoms reported Past Krqdkzm-Hfkusb-Lpqdhn Hx Past Med/Social Hx: Reviewed Nursing Past Med/Soc Hx Patient Social History Type Used: Cigarettes 2nd Hand Smoke Exposure: No Recent Hopitalizations: Yes Immunizations Up To Date Tetanus Booster (TDap): Unknown Date of Pneumonia Vaccine: Mar 20, 2004 Date of Influenza Vaccine: Feb 13, 2016 Seasonal Allergies Seasonal Allergies: No Past Medical History Amputation, Coronary Stent, Orthopedic COPD Coronary Artery Disease, High Cholesterol, Hypertension, Peripheral Vascular Dementia, Neuropathy, Seizure Disorder, Stroke Reproductive Disorders: No Gastroesophageal Reflux Degenerate Disk Disease, Arthritis Diabetes, Insulin dep, Hypothyroidsim Anxiety, Depression Family Medical History Cardiovascular disease 19 FATHER 19 MOTHER Diabetes mellitus G8 BROTHER FH: cancer Thyroid disease 19 MOTHER (HYPOTHYROIDISM) Physical Exam-Suspected Sepsis Physical Exam Vital Signs Vital Signs - First Documented 10/26/17 10/26/17 10:26 10:40 Temp 103.3 Pulse 115 Resp 35 B/P (MAP) 220/110 (146) Pulse Ox 90 O2 Delivery Nasal Cannula O2 Flow Rate 2.00 FiO2 96 Capillary Refill : Height, Weight, BMI Height: 5'9.00" Weight: 168lbs. 0.0oz. [id number]; 24.8 BMI Method:Estimated General Appearance: Chronically ill, Cachetic Eyes: Bilateral Eye Normal Inspection HEENT: Normal ENT Inspection Neck: Normal Inspection, Non Tender, Supple Respiratory: Decreased Breath Sounds Cardiovascular: Regular Rate, Rhythm Gastrointestinal: Normal Bowel Sounds, Soft Back: Normal Inspection Extremity: Normal Capillary Refill, Normal Inspection, Normal Range of Motion Neurologic/Psychiatric: Alert, Oriented x3, No Motor/Sensory Deficits Skin: normal color, warm/dry Focused Exam Lactate Level 10/26/17 10:44: Lactic Acid Level 3.24*H Lactic Acid Level Laboratory Tests Test 10/26/17 10:44 Lactic Acid Level 3.24 MMOL/L (0.50-2.00) *H Progress/Results/Core Measures Suspected Sepsis SIRS Temperature:103.3 Pulse: Respiratory Rate: Laboratory Tests 10/26/17 10:44: White Blood Count 9.5 Blood Pressure / Mean: 10/26/17 10:44: Lactic Acid Level 3.24*H Laboratory Tests 10/26/17 10:44: Creatinine 1.08, INR Comment 1.1, Platelet Count 125L, Total Bilirubin 0.4 Results/Orders Lab Results Laboratory Tests Test 10/26/17 10:44 10/26/17 11:14 Range/Units White Blood Count 9.5 4.3-11.0 10^3/uL Red Blood Count 3.93 L 4.35-5.85 10^6/uL Hemoglobin 12.6 L 13.3-17.7 G/DL Hematocrit 36 L 40-54 % Mean Corpuscular Volume 91 80-99 FL Mean Corpuscular Hemoglobin 32 25-34 PG Mean Corpuscular Hemoglobin Concent 35 32-36 G/DL Red Cell Distribution Width 12.9 10.0-14.5 % Platelet Count 125 L 130-400 10^3/uL Mean Platelet Volume 11.3 H 7.4-10.4 FL Neutrophils (%) (Auto) 82 H 42-75 % Lymphocytes (%) (Auto) 6 L 12-44 % Monocytes (%) (Auto) 10 0-12 % Eosinophils (%) (Auto) 2 0-10 % Basophils (%) (Auto) 0 0-10 % Neutrophils # (Auto) 7.8 1.8-7.8 X 10^3 Lymphocytes # (Auto) 0.6 L 1.0-4.0 X 10^3 Monocytes # (Auto) 1.0 0.0-1.0 X 10^3 Eosinophils # (Auto) 0.2 0.0-0.3 10^3/uL Basophils # (Auto) 0.0 0.0-0.1 10^3/uL Neutrophils % (Manual) 83 % Lymphocytes % (Manual) 3 % Monocytes % (Manual) 8 % Eosinophils % (Manual) 3 % Band Neutrophils 3 % Blood Morphology Comment NORMAL Prothrombin Time 14.7 12.2-14.7 SEC INR Comment 1.1 0.8-1.4 Activated Partial Thromboplast Time 24 24-35 SEC Sodium Level 131 L 135-145 MMOL/L Potassium Level 5.2 H 3.6-5.0 MMOL/L Chloride Level 97 L 98-107 MMOL/L Carbon Dioxide Level 22 21-32 MMOL/L Anion Gap 12 5-14 MMOL/L Blood Urea Nitrogen 11 7-18 MG/DL Creatinine 1.08 0.60-1.30 MG/DL Estimat Glomerular Filtration Rate > 60 BUN/Creatinine Ratio 10 Glucose Level 377 H 70-105 MG/DL Lactic Acid Level 3.24 *H 0.50-2.00 MMOL/L Calcium Level 9.3 8.5-10.1 MG/DL Total Bilirubin 0.4 0.1-1.0 MG/DL Aspartate Amino Transf (AST/SGOT) 23 5-34 U/L Alanine Aminotransferase (ALT/SGPT) 19 0-55 U/L Alkaline Phosphatase 109 40-136 U/L Total Protein 6.5 6.4-8.2 GM/DL Albumin 3.7 3.2-4.5 GM/DL Glucometer 365 H 70-110 MG/DL My Orders Orders - BERNARDO HYMAN MD Aspirin Tablet (Aspirin Tablet) (10/26/17 10:45) Cbc With Automated Diff (10/26/17 10:45) Comprehensive Metabolic Panel (10/26/17 10:45) Lactic Acid Analyzer (10/26/17 10:45) Blood Culture (10/26/17 10:45) Sputum Culture (10/26/17 10:45) Ua Culture If Indicated (10/26/17 10:45) Protime With Inr (10/26/17 10:45) Partial Thromboplastin Time (10/26/17 10:45) Chest 1 View, Ap/Pa Only (10/26/17 10:45) O2 (10/26/17 10:45) Saline Lock/Iv-Start (10/26/17 10:45) Saline Lock/Iv-Start (10/26/17 10:45) Vital Signs Adult Sepsis Patie Q15M (10/26/17 10:45) Remove Rings In Anticipation O (10/26/17 10:45) Ns Iv 1000 Ml (Sodium Chloride 0.9%) (10/26/17 10:47) Manual Differential (10/26/17 10:44) Insulin (Regular) Human (Humulin R (Per (10/26/17 11:15) Piperacillin/Tazobactam (Zosyn Vial) (10/26/17 11:30) Ns (Ivpb) (Sodium Chloride 0.9% Ivpb Bag (10/26/17 11:23) Ns Iv 1000 Ml (Sodium Chloride 0.9%) (10/26/17 11:44) Ns Iv 1000 Ml (Sodium Chloride 0.9%) (10/26/17 12:00) Medications Given in ED Current Medications Medications Dose Ordered Sig/Manuel Route Start Time Stop Time Status Last Admin Dose Admin Aspirin 650 mg ONCE PRN PO 10/26/17 10:45 10/26/17 10:52 650 MG Insulin Human Regular 10 unit ONCE ONCE SC 10/26/17 11:15 10/26/17 11:16 DC 10/26/17 11:22 10 UNIT Piperacillin Sod/ Tazobactam Sod 3.375 gm/Dextrose 100 ml @ 200 mls/hr ONCE ONCE IV 10/26/17 11:30 10/26/17 11:59 DC 10/26/17 11:40 200 MLS/HR Sodium Chloride 100 ml @ ud STK-MED ONCE .ROUTE 10/26/17 11:23 10/26/17 11:25 DC 10/26/17 11:40 100 MLS/HR Sodium Chloride 1,000 ml @ ud STK-MED ONCE .ROUTE 10/26/17 10:47 10/26/17 10:49 DC 10/26/17 10:52 1,000 MLS/HR Sodium Chloride 1,000 ml @ ud STK-MED ONCE .ROUTE 10/26/17 11:44 10/26/17 11:47 DC 10/26/17 11:49 1,000 MLS/HR Vital Signs/I&O 10/26/17 10/26/17 10/26/17 10:26 10:40 10:52 Temp 103.3 103.3 Pulse 115 Resp 35 B/P (MAP) 220/110 (146) Pulse Ox 90 96 O2 Delivery Nasal Cannula Nasal Cannula O2 Flow Rate 2.00 2.00 FiO2 96 Capillary Refill : Progress Note : Time: 12:03 Progress Note The patient's glucose was approximate 425 in the field. It was approximately 375 on arrival in the emergency department. Patient's temp was 103. The patient was awake and able for a helpful although limited history. Treatment course: The patient was treated with 650 mg of aspirin orally (liver disease). He received 30 mL/kg bolus of saline. (Sepsis protocol). The patient's laboratory evaluation and chest x-ray were not helpful for identifying the source of his sepsis. I'm awaiting his urinalysis. I gave the patient 3.375 g of Zosyn IV. Patient was given 10 units of regular insulin subcutaneous. I discussed the patient's presentation with who is kind enough to admit the patient for further evaluation and care. Departure Communication (Admissions) Time/Spoke to Admitting Phy: 12:08 Dr. Wallis Impression Primary Impression: Fever Qualified Codes: R50.9 - Fever, unspecified Additional Impressions: Sepsis Qualified Codes: A41.9 - Sepsis, unspecified organism Hyperglycemia Disposition: ADMITTED INPATIENT Condition: Improved Admissions Decision to Admit Reason: Admit from ER (General) Decision to Admit/Date: Oct 26, 2017 Time/Decision to Admit Time: 12:10 Departure-Patient Inst. Referrals: JOLLY DELANEY MD (PCP) Primary Care Physician STEPHANIE CHRISTIANSEN (Family) Primary Care Physician BERNARDO HYMAN MD Oct 26, 2017 11:09
[2017-10-26] MEDS ORDERED: inSUlin (REGULAR) HUMAN 1 UNIT/0.01 ML (CHARGE PER UNIT) SC ONE (11:15)
--- NOTE | 2017-10-26 11:20 | Diagnostic Imaging Report ---
INDICATION: Elevated temperature and shortness of air. Time of exam: 11:00 a.m. Correlation is made with prior study from 05/12/2017. The heart size is stable. There are old rib fractures on the left, unchanged. No acute infiltrate is seen. The pulmonary vascularity is normal. No effusion or pneumothorax is detected. IMPRESSION: Stable chest. No acute cardiopulmonary process is detected. Dictated by: Dictated on workstation # [id number]
[2017-10-26 11:21] LABS: BAND NEUTROPHILS 3 %; EOSINOPHILS % (MANUAL) 3 %; LYMPHOCYTES % (MANUAL) 3 %; MONOCYTES % (MANUAL) 8 %; NEUTROPHILS % (MANUAL) 83 %; RBC MORPH NORMAL
[2017-10-26 11:23] LABS: ALANINE AMINOTRANSFERASE 19 U/L (0-55); ALBUMIN 3.7 GM/DL (3.2-4.5); ALKALINE PHOSPHATASE 109 U/L (40-136); BILIRUBIN,TOTAL 0.4 MG/DL (0.1-1.0); BUN/CREATININE RATIO 10; CALCIUM 9.3 MG/DL (8.5-10.1); CARBON DIOXIDE 22 MMOL/L (21-32); CHLORIDE 97 MMOL/L (98-107); CREATININE SERUM 1.08 MG/DL (0.60-1.30); GFR ESTIMATED > 60; GLUCOSE 377 MG/DL (70-105); POTASSIUM 5.2 MMOL/L (3.6-5.0); SODIUM 131 MMOL/L (135-145); TOTAL PROTEIN 6.5 GM/DL (6.4-8.2)
[2017-10-26] MEDS ORDERED: NS (IVPB) 100 ML ONE (11:23)
[2017-10-26] MEDS ORDERED: PIPERACILLIN/TAZOBACTAM 3.375 GM in D5W 100 ML IVPB 100 ML IV ONE (11:30)
[2017-10-26] MEDS ORDERED: NS IV 1000 ML 2,721.54 ML IV PRN (12:00)
[2017-10-26 13:00] VITALS: BP 125/76
[2017-10-26 13:30] VITALS: BP 125/76
[2017-10-26] MEDS: NS IV 1000 ML 1,000 ML IV NR ×2 (13:42→14:41)
[2017-10-26] MEDS ORDERED: CHOL40003 PO (13:56)
[2017-10-26] MEDS ORDERED: GLIM4TAB PO (13:56)
[2017-10-26] MEDS ORDERED: LEVO175T5 PO (13:56)
[2017-10-26] MEDS: NS IV 1000 ML 1,000 ML IV SCH ×2 (14:41→21:37)
[2017-10-26 16:00] VITALS: BP 97/58
--- NOTE | 2017-10-26 16:40 | History & Physicial (CHS) ---
HPI History of Present Illness: 67-year-old male presents to [facility] emergency department, via EMS, after a one-week history of fever and overall weakness. Apparently the patient took a fall this morning and no obvious injury was reported. Patient was brought to the emergency department due to the persistent fever as well as his overall weakness. In the emergency department he denied any headaches, nausea or vomiting. He denied any dysuria or urinary frequency. Apparently he has had a cough. Patient is a known diabetic and does see [facility]. Gdofrey at [facility]. He apparently also has a history of hepatic failure. Source: patient Exam Limitations: clinical condition Date seen by provider: Oct 26, 2017 Time Seen by Provider: 16:50 Attending Physician Rivas Stock MD PCP Jolly Ahumada MD Consult Date of Admission Oct 26, 2017 at 11:53 Home Medications Home Medications Reviewed patient Home Medication Reconciliation performed by pharmacy medication reconciliations mobile sales technician and/or nursing. Patients Allergies have been reviewed. Allergies Coded Allergies: acetaminophen (Verified Allergy, Intermediate, 10/26/17) DQL-Seaysj-Yoggqv Hx Patient Social History Alcohol Use: Denies Use Recreational Drug Use: Yes (HISTORY) Smoking Status: Current Everyday Smoker Type Used: Cigarettes 2nd Hand Smoke Exposure: No Recent Foreign Travel: No Contact w/other who traveled: No Recent Hopitalizations: No Recent Infectious Disease Expo: No Physical Abuse Screen: No Sexual Abuse: No Immunizations Up To Date Tetanus Booster (TDap): Unknown Date of Pneumonia Vaccine: Mar 20, 2004 Date of Influenza Vaccine: Feb 13, 2016 Past Medical History Past Medical History 1. COPD 2. CAD s/p stent placement in the - previously followed by Dr. Duran, not compliant with medications of follow up-severe multivessle -inoperable 3. Diabetes Mellitus Type 2 - insulin requiring; non-compliant w/ insulin 4. Diabetic Neuropathy 5. Chronic pancreatitis- history of hemorrhagic pancreatitis 6. Degenerative Disk Disease, Arthritis 7. Seizure history- secondary to previous CVA, methadone use and alcohol use 8. Carotid stenosis - moderate 9. Hx of TIA and CVA 10. Depression/Anxiety 11. Hypothyroidism 12. Diabetic Retinopathy 13. History of Pseudohyponatremia secondary severely elevated blood glucose 14. Tobaccoism 15. Esophageal Varices with portal hypertension and hx of enlarged spleen 16. ASOD- bilateral severe, evaluated at [facility] 17. H/O respiratory failure with tracheostomy and reversal 18. History of Gangrene sp resection of toe 09-11-13 19. Illicit drug use- Methadone use, Alcohol use 20. Chronic fracture left femur pathologic appearing 21. Stomach thickening quesitonable for malignancy- GI was recommended outpatient PSH: 1. R Knee surgery x4 2. Back surgery - lumbar discectomy w/ vertebral fusion 3. Coronary Stent 4. cholecystectomy 5. Stent placement in pancreas with pseudocyst removal 6. Tracheostomy with removal 7. RT. 4th toe ray amputation- 09-11-13 Eliazar Duran 8. Cardiac Cath 12-26 Christin with inoperable multivessle coronary artery disease. Family Medical History Family History: Cardiovascular disease 19 FATHER 19 MOTHER Diabetes mellitus G8 BROTHER FH: cancer Thyroid disease 19 MOTHER (HYPOTHYROIDISM) Review of Systems (CHC) Constitutional: see HPI Reviewed Test Results Reviewed Test Results Lab Laboratory Tests Test 10/26/17 10:44 10/26/17 11:14 10/26/17 12:08 10/26/17 13:12 Range/Units White Blood Count 9.5 4.3-11.0 10^3/uL Red Blood Count 3.93 L 4.35-5.85 10^6/uL Hemoglobin 12.6 L 13.3-17.7 G/DL Hematocrit 36 L 40-54 % Mean Corpuscular Volume 91 80-99 FL Mean Corpuscular Hemoglobin 32 25-34 PG Mean Corpuscular Hemoglobin Concent 35 32-36 G/DL Red Cell Distribution Width 12.9 10.0-14.5 % Platelet Count 125 L 130-400 10^3/uL Mean Platelet Volume 11.3 H 7.4-10.4 FL Neutrophils (%) (Auto) 82 H 42-75 % Lymphocytes (%) (Auto) 6 L 12-44 % Monocytes (%) (Auto) 10 0-12 % Eosinophils (%) (Auto) 2 0-10 % Basophils (%) (Auto) 0 0-10 % Neutrophils # (Auto) 7.8 1.8-7.8 X 10^3 Lymphocytes # (Auto) 0.6 L 1.0-4.0 X 10^3 Monocytes # (Auto) 1.0 0.0-1.0 X 10^3 Eosinophils # (Auto) 0.2 0.0-0.3 10^3/uL Basophils # (Auto) 0.0 0.0-0.1 10^3/uL Neutrophils % (Manual) 83 % Lymphocytes % (Manual) 3 % Monocytes % (Manual) 8 % Eosinophils % (Manual) 3 % Band Neutrophils 3 % Blood Morphology Comment NORMAL Prothrombin Time 14.7 12.2-14.7 SEC INR Comment 1.1 0.8-1.4 Activated Partial Thromboplast Time 24 24-35 SEC Sodium Level 131 L 135-145 MMOL/L Potassium Level 5.2 H 3.6-5.0 MMOL/L Chloride Level 97 L 98-107 MMOL/L Carbon Dioxide Level 22 21-32 MMOL/L Anion Gap 12 5-14 MMOL/L Blood Urea Nitrogen 11 7-18 MG/DL Creatinine 1.08 0.60-1.30 MG/DL Estimat Glomerular Filtration Rate > 60 BUN/Creatinine Ratio 10 Glucose Level 377 H 70-105 MG/DL Lactic Acid Level 3.24 *H 2.65 *H 0.50-2.00 MMOL/L Calcium Level 9.3 8.5-10.1 MG/DL Total Bilirubin 0.4 0.1-1.0 MG/DL Aspartate Amino Transf (AST/SGOT) 23 5-34 U/L Alanine Aminotransferase (ALT/SGPT) 19 0-55 U/L Alkaline Phosphatase 109 40-136 U/L Total Protein 6.5 6.4-8.2 GM/DL Albumin 3.7 3.2-4.5 GM/DL Glucometer 365 H 252 H 70-110 MG/DL Test 10/26/17 15:00 Range/Units Glucometer 175 H 70-110 MG/DL Radiology NAME: JOLLY MANZANARES [facility] REC#: [id number] PT STATUS: ADM IN : 1950 PHYSICIAN: BERNARDO HYMAN MD ADMIT DATE: 10/26/17/4TH Signed Date of Exam: 10/26/17 CHEST 1 VIEW, AP/PA ONLY INDICATION: Elevated temperature and shortness of air. Time of exam: 11:00 a.m. Correlation is made with prior study from 05/12/2017. The heart size is stable. There are old rib fractures on the left, unchanged. No acute infiltrate is seen. The pulmonary vascularity is normal. No effusion or pneumothorax is detected. IMPRESSION: Stable chest. No acute cardiopulmonary process is detected. Dictated by: Dictated on workstation # [id number] Dict: 10/26/17 1115 Trans: 10/26/17 1419 Interpreted by: АЛЕКСАНДР WATERS MD Electronically signed by: АЛЕКСАНДР WATERS MD 10/26/17 1419 Physical Exam-(CHC) Physical Exam Vital Signs VS - Last 72 Hours, by Label 10/26/17 10/26/17 10/26/17 10/26/17 10:26 10:40 10:52 12:55 Temp 103.3 103.3 101.7 Pulse 115 95 Resp 35 11 B/P (MAP) 220/110 (146) 133/99 (146) Pulse Ox 90 96 95 O2 Delivery Nasal Cannula Nasal Cannula O2 Flow Rate 2.00 2.00 2.00 FiO2 96 10/26/17 10/26/17 10/26/17 10/26/17 13:00 13:30 14:49 15:07 Temp 101.4 101.4 Pulse 84 84 Resp 16 18 B/P (MAP) 125/76 (92) 125/76 (92) Pulse Ox 95 95 O2 Delivery Nasal Cannula Nasal Cannula Nasal Cannula Nasal Cannula O2 Flow Rate 2.00 2.00 2.00 2.00 10/26/17 10/26/17 10/26/17 10/27/17 16:00 19:58 21:24 00:45 Temp 97.8 98.6 100.4 Pulse 72 68 71 Resp 16 16 17 B/P (MAP) 97/58 (71) 106/63 (77) 121/59 (79) Pulse Ox 97 93 94 O2 Delivery Nasal Cannula Nasal Cannula Nasal Cannula Nasal Cannula O2 Flow Rate 2.00 2.00 2.00 2.00 10/27/17 10/27/17 10/27/17 10/27/17 04:24 08:00 09:00 12:00 Temp 97.8 97.7 97.7 Pulse 79 74 74 Resp 19 28 28 B/P (MAP) 119/54 (75) 165/89 (114) 165/89 (114) Pulse Ox 93 99 99 O2 Delivery Nasal Cannula Nasal Cannula Room Air Nasal Cannula O2 Flow Rate 2.00 2.00 2.00 10/27/17 16:00 Temp 98.6 Pulse 90 Resp 22 B/P (MAP) 169/80 (109) Pulse Ox 96 O2 Delivery Nasal Cannula O2 Flow Rate 2.00 Capillary Refill : Less Than 3 SecondsLess Than 3 Seconds General Appearance: no apparent distress Eyes: Bilateral Eye Normal Inspection Neck: supple Respiratory: chest non-tender, no respiratory distress, no accessory muscle use , decreased breath sounds (in bases) Cardiovascular: regular rate, rhythm Gastrointestinal: non tender, soft, other (no guarding) Rectal: deferred Extremities: non-tender, normal capillary refill Skin: normal color Assessment/Plan Assessment/Plan Admission Dx 1. Sepsismost likely related to pulmonary since he has had a cough. Urine results are not on the chart 2. Dehydration 3. Hyperglycemia with history of diabetes mellitus 4. History of hepatic failurecurrently stable liver function tests Admission Status: Inpatient Order (span 2 midnights) Reason for Inpatient Admission: Further IV fluid rehydration as well as IV antibiotics to treat his sepsis. Assessment & Plan 1. Sepsisdue to elevated lactic acid as well as fever and tachycardia -most likely related to pulmonary since he has had a cough. Urine results are not on the chart -Patient to be initiated on Zosyn -Urine analysis -Recheck chest x-ray in the morning along with CBC and comprehensive metabolic panel 2. Dehydration -IV fluid rehydration and this was initiated in the ED 3. Hyperglycemia with history of diabetes mellitus -Sliding-scale insulin -Eventual return to his home medications for diabetes treatment 4. History of hepatic failurecurrently stable liver function tests -Monitor Clinical Quality Measures DVT/VTE Risk/Contraindication: Risk Factor Score Per Nursin RFS Level Per Nursing on Admit: 4+=Very High RIVAS STOCK MD Oct 26, 2017 16:40
[2017-10-26] MEDS: inSUlin ASPART (NovoLOG) 1 UNIT/0.01 ML (CHARGE PER UNIT) SC SCH ×2 (17:17→21:37)
[2017-10-26] MEDS: PIPERACILLIN/TAZO 3.375 GM/D5W 100 ML IV SCH ×2 (17:59)
[2017-10-26 19:58] VITALS: BP 106/63
[2017-10-27 00:45] VITALS: BP 121/59
[2017-10-27] MEDS: PIPERACILLIN/TAZO 3.375 GM/D5W 100 ML IV SCH ×6 (00:56→16:54)
[2017-10-27 04:24] VITALS: BP 119/54
[2017-10-27] MEDS: inSUlin ASPART (NovoLOG) 1 UNIT/0.01 ML (CHARGE PER UNIT) SC SCH ×4 (06:35→21:15)
[2017-10-27] MEDS: NS IV 1000 ML 1,000 ML IV SCH ×3 (06:35→16:55)
[2017-10-27 08:00] VITALS: BP 165/89
--- NOTE | 2017-10-27 09:55 | Diagnostic Imaging Report ---
PATIENT HISTORY: Fever, sepsis. TECHNIQUE: Two views of the chest. COMPARISON: 10/26/2017. FINDINGS: Lung volumes are normal. No focal consolidation is seen. There is no pleural effusion or pneumothorax. The cardiomediastinal silhouette is normal in size and contour. No acute osseous abnormality is seen. IMPRESSION: No acute pulmonary abnormality seen. Dictated by: Dictated on workstation # [id number]
--- OUTSIDE RECORDS SUMMARY | 2017-10-27 10:31 | XMS REPORT ---
Author Author STEPHANIE CHRISTIANSEN [facility] Address [address] [place] [address] Care Team Providers Care Fire Support Man Name Role Phone STEPHANIE CHRISTIANSEN Unavailable PROBLEMS Type Condition ICD9-CM Code VHF57-VL Code Onset Dates Condition Status SNOMED Code Problem Hyperlipidemia, unspecified hyperlipidemia type E78.5 Active 91245253 Problem Long-term insulin use Z79.4 Active 539562784 Problem Abnormal carotid ultrasound R93.8 Active 091259141 Problem Type 2 diabetes mellitus with complication E11.8 Active 10101471 Problem Positive TB test R76.11 Active 488913059 Problem Vascular dementia with behavior disturbance F01.51 Active 015006955 Problem PVD (peripheral vascular disease) I73.9 Active 470734624 Problem Pain R52 Active 96164131 Problem Other chronic osteomyelitis of left foot M86.672 Active 194539565 Problem Nicotine dependence, unspecified, uncomplicated F17.200 Active 790389037 Problem Peripheral vascular disease due to secondary diabetes E13.51 Active 1543368 Problem Nonintractable epilepsy without status epilepticus, unspecified epilepsy type G40.909 Active 837224359 Problem Recurrent major depressive disorder, remission status unspecified F33.9 Active 49135732 Problem Anxiety F41.9 Active 97645810 Problem Generalized anxiety disorder F41.1 Active 73446265 Problem Vascular dementia F01.50 Active 788286332 Problem Pseudobulbar affect F48.2 Active 86218116 Problem Coronary artery disease involving [place] coronary artery of [place] heart without angina pectoris I25.10 Active 5346525541164 Problem Gastroesophageal reflux disease without esophagitis K21.9 Active 909151707 Problem Cerebrovascular accident (CVA) due to other mechanism I63.8 Active 072999519 Problem Pulmonary emphysema, unspecified emphysema type J43.9 Active 41730963 Problem Neuropathy G62.9 Active 430743055 Problem Depression F32.9 Active 97858412 Problem Essential hypertension I10 Active 10472088 Problem Acquired hypothyroidism E03.9 Active 591718308 ALLERGIES No Information ENCOUNTERS Encounter Location Date Diagnosis [facility] [address], [place] [address] Sep, Generalized anxiety disorder F41.1 [facility] [address], [place] [address] Sep, [facility] [id number] [place] [address] 59147- 5091 Sep, Type 2 diabetes mellitus with complication E11.8 [facility] [id number] [place] [address] 62726- 8264 August, Generalized anxiety disorder F41.1 [facility] [id number] [place] [address] 04344- 2403 August, [facility] [address] [facility] [facility] [address] [place] [id number] August, Type 2 diabetes mellitus with complication E11.8 ; Vascular dementia with behavior disturbance F01.51 ; Long-term insulin use Z79.4 and Nicotine dependence, unspecified, uncomplicated F17.200 [facility] [address] [place] [address] 15243- 2653 August, Generalized anxiety disorder F41.1 [facility] [address], [place] [address] 8[address] Jul, Generalized anxiety disorder F41.1 [facility] [id number] [place] [address] [id number] Jun, Generalized anxiety disorder F41.1 [facility] [id number] [address] Jun, [facility] [id number] [place] [address] [id number] May, [facility] [address] [address] May, [facility] [id number] [place] [address] [id number] May, Generalized anxiety disorder F41.1 [facility] [id number] [place] [address] 67656- 7104 Apr, [facility] [address] [place] [id number] Apr, Other chronic osteomyelitis of left foot M86.672 ; Type 2 diabetes mellitus with complication E11.8 ; Vascular dementia F01.50 ; Long-term insulin use Z79.4 ; PVD (peripheral vascular disease) I73.9 and Nicotine abuse 305.1 [facility] [id number] [place] [address] 19174- 7282 Apr, [facility] [address] [id number] Apr, [place] [address] [address]- 0163 Apr, Pain R52 and Generalized anxiety disorder F41.1 [place] [address] 69506- 5459 Mar, [facility] [id number] [place] [address] 15630- 3481 Mar, Pain R52 and Generalized anxiety disorder F41.1 [facility] [address] [place] [id number] Feb, Depression F32.9 ; Type 2 diabetes mellitus with complication E11.8 and Nicotine dependence, unspecified, uncomplicated F17.200 [facility] [id number] [place] [address] 66277- 8974 Feb, Generalized anxiety disorder F41.1 and Pain R52 [facility] [id number] [place] [address] 13016- 5572 Feb, [facility] [id number] [place] [address] 04452- 3537 Jan, [facility] [id number] [place] [address] 45871- 5380 Jan, Generalized anxiety disorder F41.1 and Pain R52 [facility] [id number], [place] [address] 2486 Jan, [facility] [id number] [place] [address] [id number] Dec, Generalized anxiety disorder F41.1 and Pain R52 [facility] [address] [id number] Dec, Vascular dementia F01.50 ; Pain of left leg M79.605 ; Pain in right leg M79.604 and Type 2 diabetes mellitus with complication E11.8 [facility] [id number], [place] [address] 4460 Dec, Pain R52 [facility] [id number] [place] [address] 99406- 6372 Dec, [facility] [address] [place] [address] 89342- 2075 Nov, [facility] [address] [place] [address] 12246- 6234 Nov, Pain R52 and Generalized anxiety disorder F41.1 [facility] [address] [place] [id number] Nov, Depression F32.9 ; Vascular dementia with behavior disturbance F01.51 and Anxiety F41.9 [facility] [address], [place] [address] 4147 Nov, Pain R52 and Generalized anxiety disorder F41.1 [facility] [id number], [place] [address] 3295 Oct, Generalized anxiety disorder F41.1 [facility] [address] [place] [address] 96403- 6262 Oct, Pain R52 [facility] [address], [place] [address] 3628 Sep, [facility] [address] [place] [id number] Sep, Generalized anxiety disorder F41.1 [facility] [address], [place] [address] 2866 Sep, Pain R52 [facility] [address], [place] [address] 2686 Sep, Generalized anxiety disorder F41.1 [facility] [address], [place] [address] 2546 August, [facility] [address] [place] [address] 96116- 0306 August, [facility] [address] [place] [address] 78938- 8016 August, Pain R52 [facility] [id number] [place] [address] 18846- 5236 August, Generalized anxiety disorder F41.1 [facility] [id number] [place] [address] [id number] August, Generalized anxiety disorder F41.1 [facility] [address], [place] [address]- 7610 Jul, Pain R52 [facility] [address] [place] [address] 68501- 1506 Jul, [facility] [id number] [place] [address] [id number] Jul, [facility] [address], [place] [address]- 4656 Jun, [facility] [id number] [place] [address] [id number] Jun, Depression F32.9 [facility] [address], [place] [address] 2546 Jun, Pain R52 [facility] [address], [place] [address]- 2546 Jun, [facility] [address] [place] [id number] Jun, Vascular dementia F01.50 and Depression F32.9 [facility] [id number] [place] [address] 91262- 2362 May, Pain R52 [facility] [id number] [place] [address] 40082- 2703 15 May, 2016 [facility] [id number] [place] [address] 28783- 3446 May, Pseudobulbar affect F48.2 [facility] [id number] [place] [address] 03970- 4800 May, [place] [address] 34441- 4678 08 May, 2016 PVD (peripheral vascular disease) I73.9 [place] [id number] [place] [address] 01316- 7080 May, Vascular dementia with behavior disturbance F01.51 [place] [id number] [place] [address] 85729- 5268 May, Vascular dementia with behavior disturbance F01.51 [place] [id number] [place] [address] 67670- 2694 Apr, [place] [id number] [place] [address] 28995- 9767 Apr, Pain R52 [facility] [address] [facility] [place] [id number] Apr, Generalized anxiety disorder F41.1 ; PVD (peripheral vascular disease) I73.9 and Type 2 diabetes mellitus with complication E11.8 [facility] [id number] [place] [address] 69859- 8755 Apr, Vascular dementia with behavior disturbance F01.51 [facility] [id number] [place] [address] 80906- 3074 Apr, [facility] [id number] [place] [address] 33999- 5197 Apr, Vascular dementia with behavior disturbance F01.51 [facility] [address] [place] [address] 83340- 4610 Apr, [facility] [id number] [place] [address] [id number] Mar, [facility] [id number] [place] [address] 39473- 0706 Mar, Type 2 diabetes mellitus with complication E11.8 ; Vascular dementia with behavior disturbance F01.51 and Depression F32.9 [facility] [id number] [place] [address] 92212- 0441 Mar, [facility] [id number] [place] [address] 18808- 5809 Feb, [facility] [id number] [place] [address] 82955- 0371 Feb, Viral illness B34.9 [facility] [id number] [place] [address] 87571- 4437 Jan, Diabetes 250.00 [facility] [id number] [place] [address] 05486- 6368 Jan, [facility] [id number] [place] [address] 21725- 1902 Jan, [facility] [id number] [place] [address] 19701- 0909 Jan, [facility] [address] [facility] [place] [id number] Jan, Vascular dementia with behavior disturbance F01.51 and Type 2 diabetes mellitus with complication E11.8 [facility] [id number] [place] [address] 33268- 7138 Jan, Pain R52 [facility] [id number] [place] [address] 97235- 4795 Jan, Pain R52 [facility] [address] [place] [address] 2010 Dec, [facility] [address], [place] [address]- 4234 Nov, [facility] [address] [facility] [address] [place] [id number] Nov, Type 2 diabetes mellitus with complication E11.8 [facility] [address], [place] [address]- 8226 Nov, [facility] [address], [place] [address]- 2413 Oct, [facility] [address], [place] [address]- 7236 Oct, [facility] [address], [place] [address]- 5295 Oct, Vascular dementia with behavior disturbance F01.51 and Type 2 diabetes mellitus with complication E11.8 [facility] [address], [place] [address]- 4467 August, Type 2 diabetes mellitus with complication E11.8 and Vascular dementia with behavior disturbance F01.51 [facility] [address], [place] [address]- 7465 August, Vascular dementia F01.50 [place] [address], [place] [address]- 5120 August, Vascular dementia with behavior disturbance F01.51 [facility] [address], [place] [address]- 1158 Jul, Vascular dementia with behavior disturbance F01.51 [facility] [address], [place] [address]- 3712 Jun, Vascular dementia F01.50 [facility] [address], [place] [address]- 0424 Jun, Type 2 diabetes mellitus with complication E11.8 ; Long- term insulin use Z79.4 and Vascular dementia with behavior disturbance F01.51 [facility] [address], [place] [address]- 1666 08 Jun, 2015 Vascular dementia with behavior disturbance F01.51 [facility] [address] 0908 Jun, Vascular dementia F01.50 [facility] [address], [place] [address]- 9897 Apr, [facility] [id number] [place] [address] 96653- 3265 Apr, [facility] [address] [place] [address] 05764- 3908 Apr, [facility] [address] [place] [address] 47757- 1209 Apr, Type 2 diabetes mellitus with complication E11.8 ; Depression F32.9 and Long-term insulin use Z79.4 [place] [address], [place] [address]- 6411 Mar, [place] [address] [place] [id number] Mar, Depression F32.9 ; Type 2 diabetes mellitus with complication E11.8 and Long-term insulin use Z79.4 [place] [address], [place] [address]- 9311 Feb, [facility] [address], [place] [address]- 6867 Feb, Hyperthyroidism E05.90 [facility] [address], [place] [address]- 4240 Feb, Hyperthyroidism E05.90 [facility] [address] [place] [address] 99891- 9366 Feb, [facility] [address], [place] [address]- 2954 Jan, [facility] [id number] [address]- 6825 16 Dec, 2014 Nicotine addiction 305.1 [facility] [address], [place] [address]- 0630 Oct, Nicotine abuse 305.1 [facility] [address], [place] [address]- 4818 Oct, [facility] [address], [place] [address]- 3559 August, [facility] [address] [id number] August, History of drug abuse 305.93 and Diabetes 250.00 [facility] [address], [place] [address]- 4092 Jul, [facility] [address], [place] [address]- 9259 Jul, [facility] [address], [place] [address]- 6972 Jun, [facility] [address], [place] [address]- 9773 Jun, [facility] [address], [place] [address]- 4531 Jun, [facility] [address], [place] [address]- 0735 Jun, [facility] [address]- 8952 Jun, [facility] [id number] 6151 Jun, [facility] [address]- 4786 May, [facility] [id number], [place] [address]- 7716 May, [facility] [address] [place] [address]- 7618 May, [facility] [address] [id number] [place] [address]- 7174 May, [facility] [address] [id number] [place] [address]- 4931 May, [facility] [address] [id number] [place] [address]- 0407 Apr, [facility] [address] [id number] [place] [address]- 0477 Apr, [facility] [address] [id number] Apr, [facility] [address] [id number], [place] [address]- 9348 Apr, [facility] [address] [id number], [place] [address]- 1673 Apr, [facility] [address] [id number], [place] [address]- 3634 Apr, [facility] [address] [id number], [place] [address]- 2522 Apr, [facility] [id number] [address]- 8953 Apr, [facility] [address] [id number], [place] [address]- 9025 Mar, [facility] [place] [facility] [address] [id number], [place] [address]- 4632 Mar, [facility] [place] [facility] [address] [id number] [place] [address]- 5390 Mar, [facility] [place] [facility] [address] [id number] [place] [address]- 7097 Mar, [facility] [place] [facility] [address] [id number] [place] [address]- 6476 Mar, [facility] [place] [facility] [address] [id number] [place] [address]- 9708 Mar, [facility] [place] [facility] [address] [id number] [place] [address]- 6212 Mar, [facility] [place] [facility] [address] [id number] [place] 5230 Mar, [facility] [place] [facility] [address] [id number] [place] [address]- 6104 Feb, [facility] [place] [facility] [address] [id number] [place] [address]- 5690 Feb, [facility] [place] [facility] [address] [id number] [place] [address]- 1028 Feb, [facility] [place] [facility] [address] [id number] [place] [address]- 5490 Feb, [facility] [place] [facility] [address] [id number] [place] [address]- 0132 Feb, [facility] [address] [id number] Feb, [facility] [place] [facility] [address] [id number] [place] [address]- 9509 Feb, [facility] [place] [facility] [address] [facility] [id number] [place] [address]- 7261 Feb, [facility] [place] [facility] [address] [id number] [place] [address]- 1107 Feb, [facility] [place] [facility] [address] [id number] [place] [address]- 1248 Feb, [facility] [place] [facility] [address] [id number] [place] [address]- 9939 Jan, [facility] [place] [facility] [address] [id number] [place] [address]- 6461 Jan, [facility] [place] [facility] [address] [id number] [place] [address]- 2870 Jan, [facility] [place] [facility] [address] [id number] [place] [address]- 0247 17 Jan, 2013 [facility] [place] [facility] [address] [id number] [place] [address]- 4068 16 Jan, 2014 [facility] [place] [facility] [address] [id number] [place] [address]- 4056 16 Jan, 2014 [facility] [place] [facility] [address] [id number] [place] [address]- 4015 15 Jan, 2014 [facility] [place] [facility] [address] [id number] [place] [address]- 5774 Jan, [facility] [place] [facility] [address] [id number] [place] [address]- 1283 Jan, [facility] [place] [facility] [address] [id number] [place] [address]- 3808 Jan, [facility] [place] [facility] [address] [id number] [place] [address]- 2991 Jan, [facility] [place] [facility] [address] [id number] [place] [address]- 0166 Jan, [facility] [place] [facility] [address] [id number] [place] [address]- 1415 Jan, [facility] [place] [facility] [address] [id number] [place] [address]- 9503 Jan, [facility] [place] [facility] [address] [id number], [place] [address]- 2376 Jan, [facility] [place] [facility] [address] [id number] [place] [address]- 6166 Jan, [facility] [place] [facility] [address] [id number] [place] [address]- 3281 Jan, [facility] [place] [facility] [address] [id number] [place] [address]- 7406 Dec, [facility] [place] [facility] [address] [id number] [place] [address]- 7837 19 Dec, 2013 [facility] [place] [facility] [address] [id number] [place] [address]- 5486 11 Dec, 2013 [facility] [place] [facility] [address] [id number] [place] [address]- 3756 11 Dec, 2013 [facility] [place] [facility] [address] [id number] [place] [address] 2545 09 Sep, 2013 [facility] [place] [facility] [address] [id number] [place] [address]- 4677 09 Sep, 2013 [facility] [place] [facility] [address] [id number] [place] [address]- 6253 08 Dec, 2013 [facility] [place] [facility] [address] [id number] [place] [address] 08 Dec, 2013 [facility] [place] [facility] [address] [id number] [place] [address] 08 Dec, 2013 [facility] [place] [facility] [address] [id number] [place] [address] 08 Dec, 2013 [facility] [place] [facility] [address] [id number] [place] [address] 05 Dec, 2013 [facility] [place] [facility] [address] [id number] [place] [address] 05 Dec, 2013 [facility] [place] [facility] [address] [id number] [place] [address] Dec, 2013 [facility] [place] [facility] [address] [id number] [place] [address] Dec, 2013 [facility] [place] [facility] [address] [id number] [place] [address] Nov, [facility] [place] [facility] [address] [id number] [place] [address] Nov, [facility] [place] [facility] [address] [id number] [place] [address] Nov, [facility] [place] [facility] [address] [id number] [place] [address] Nov, [facility] [place] [facility] [address] [id number] [place] [address] Nov, [facility] [place] [facility] [address] [id number] [place] [address] Nov, [facility] [place] [facility] [address] [id number] [place] [address] Nov, [facility] [place] [facility] [address] [id number] [place] [address] Nov, [facility] [place] [facility] [address] [id number] [place] [address] Nov, [facility] [place] [facility] [address] [id number] [place] [address] Nov, [facility] [place] [facility] [address] [id number] [place] [address] Nov, [facility] [place] [facility] [address] [id number] [place] [address] Nov, [facility] [place] [facility] [address] [id number] [place] [address] Nov, [facility] [place] [facility] [address] [id number] [place] [address] Nov, [facility] [place] [facility] [address] [id number] [place] [address] Oct, [facility] [place] [facility] [address] [id number] [place] [address] Oct, [facility] [place] [facility] [address] [id number] [place] [address] Oct, [facility] [place] [facility] [address] [id number] [place] [address] Oct, [facility] [place] [facility] [address] [id number] [place] [place] [address] Oct, [facility] [place] [facility] [address] [id number] [place] [address] Oct, [facility] [place] [facility] [address] [id number] [place] [address] 1047 Oct, [facility] [place] [facility] [address] [id number] [place] [address] Oct, 2013 [facility] [place] [facility] [address] [id number] [place] [address]- 5502 Oct, [facility] [place] [facility] [address] [id number] [place] [address] 6[address] Oct, [facility] [place] [facility] [address] [id number] [place] [address]- 3983 Oct, [facility] [place] [facility] [address] [id number] [place] [address]- 0768 Oct, [facility] [place] [facility] [address] [id number] [place] [address]- 5365 Oct, [facility] [place] [facility] [address] [id number] [place] [address]- 2744 Oct, [facility] [place] [facility] [address] [id number] [place] [address] 4137 Oct, [facility] [place] [facility] [address] [id number] [place] [address]- 0199 Oct, [facility] [place] [facility] [address] [id number] [place] [address]- 4345 Oct, [facility] [place] [facility] [address] [id number] [place] [address]- 7975 Oct, [facility] [place] [facility] [address] [id number] [place] [address]- 3773 Oct, [facility] [place] [facility] [address] [id number] [place] [address]- 0011 Oct, [facility] [place] [facility] [address] [id number] [place] [address]- 7189 Sep, [facility] [place] [facility] [address] [id number] [place] [address]- 8884 Sep, [facility] [place] [facility] [address] [id number] [place] [address]- 6613 Sep, [facility] [place] [facility] [address] [id number] [place] [address]- 0580 Sep, [facility] [place] [facility] [address] [id number] [place] [address]- 7470 Sep, [facility] [place] [facility] [address] [id number] [place] [address]- 7216 Sep, [facility] [place] [facility] [address] [id number] [place] [address]- 7262 August, [facility] [place] [facility] [address] [id number] [place] [address]- 7815 August, [facility] [place] [facility] [address] [id number] [place] [address]- 1278 Jul, [facility] [place] [facility] [address] [id number] [place] [address]- 2985 Jul, [facility] [place] [facility] [address] [id number] [place] [address]- 2956 Jul, [facility] [place] [facility] [address] [id number] [place] [address]- 3440 Jul, [facility] [place] [facility] [address] [id number] [place] [address]- 7427 Jul, [facility] [place] [facility] [address] [id number] [place] [address]- 6025 Jul, [facility] [place] [facility] [address] [id number] [place] [address]- 6209 Jul, [facility] [place] [facility] [address] [id number] [place] [address]- 5029 Jul, [facility] [place] [facility] [address] [id number] [place] [address]- 2580 31 Jun, 2013 [facility] [place] [facility] [address] [id number] [place] [address]- 8176 31 Jun, 2013 [facility] [place] [facility] [address] [id number] [place] [address]- 5416 17 Jun, 2013 [facility] [place] [facility] [address] [id number] [place] [address] 2546 Jun, [facility] [place] [facility] [address] [id number] [place] [address] 2547 Jun, [facility] [place] [facility] [address] [id number] [place] [address]- 1288 May, [facility] [place] [facility] [address] [id number] [place] [address]- 8328 May, [facility] [place] [facility] [address] [id number] [place] [address]- 7388 May, [facility] [place] [facility] [address] [id number] [place] [address]- 9548 May, [facility] [place] [facility] [address] [id number] [place] [address]- 5456 May, [facility] [place] [facility] [address] [id number] [place] [address]- 8618 May, [facility] [place] [facility] [address] [id number] [place] [address]- 1155 May, [facility] [place] [facility] [address] [id number] [place] [address]- 2549 May, [facility] [place] [facility] [address] [id number] [place] [address]- 2546 May, [facility] [place] [facility] [address] [id number] [place] [address]- 6307 May, [facility] [place] [facility] [address] [id number] [place] [address]- 8795 May, [facility] [address] [id number] [place] [address]- 3808 Apr, [facility] [place] [facility] [address] [id number] [place] [address]- 1473 Apr, [facility] [place] [facility] [address] [id number] [place] [address]- 1412 Mar, [facility] [place] [facility] [address] [id number] [place] [address]- 2489 Mar, [facility] [place] [facility] [address] [id number] [place] [address]- 7180 Mar, [facility] [place] [facility] [address] [id number] [place] [address]- 1600 Mar, [facility] [place] [facility] [address] [id number] [place] [address]- 0061 Mar, [facility] [place] [facility] [address] [id number] [place] [address]- 4479 Jan, [facility] [place] [facility] [address] [id number] [place] [address]- 3203 Jan, [facility] [place] [facility] [address] [facility] [id number] [place] [address]- 2475 Jan, [facility] [place] [facility] [address] [id number] [place] [address]- 0883 Jan, [facility] [place] [facility] [address] [id number], [place] [address]- 1915 Jan, [facility] [place] [facility] [address] [id number] [place] [address]- 0432 Jan, [facility] [place] [facility] [address] [id number], [place] [address]- 9988 Jan, [facility] [place] [facility] [address] [id number], [place] [address]- 3737 Jan, [facility] [place] [facility] [address] [id number] [place] [address]- 8483 Jan, [facility] [address] [id number] [place] [address]- 3754 Jan, [facility] [place] [facility] [address] [id number] [place] [address]- 4275 Dec, [facility] [place] [facility] [address] [id number] [place] [address]- 2030 Oct, [facility] [address] [id number] [place] [address]- 8704 Oct, [facility] [place] [facility] [address] [id number] [place] [address]- 9915 Oct, [facility] [place] [facility] [address] [id number] [place] [address]- 8090 Oct, [facility] [address] [id number] [place] [address]- 0556 Oct, [facility] [address] [id number] [place] [address]- 9388 Oct, [facility] [place] [facility] [address] [id number] [place] [address]- 8900 Sep, [facility] [place] [facility] [address] [id number] [place] [address]- 1621 August, [facility] [place] [facility] [address] [id number] [place] [address]- 1969 August, [facility] [place] [facility] [address] [id number] [place] [address]- 5298 August, [facility] [place] [facility] [address] [id number] [place] [address]- 3834 August, [facility] [place] [facility] [address] [id number] [place] [address]- 2746 August, [facility] [place] [facility] [address] [id number], [place] [address]- 3336 07 May, 2012 [facility] [address] [id number] [place] [address]- 0929 15 Apr, 2012 [facility] [address] [id number] [place] [address]- 0036 Apr, [facility] [address] [id number] [place] [address]- 2546 Apr, [facility] [address] [id number], [place] [address]- 1806 Apr, [facility] [address] [id number] [place] [address]- 9347 Apr, [facility] [address] [place] [id number] Mar, [facility] [address] [id number] [place] [address]- 4046 Mar, [facility] [address] [id number], [place] [address]- 1392 19 Mar, 2012 [facility] [address] [id number] [place] [address]- 2075 19 Mar, 2012 [facility] [address] [id number], [place] [address]- 1727 17 Mar, 2012 [facility] [address] [id number], [place] [address]- 2490 17 Mar, 2012 [facility] [address] [id number], [place] [address]- 7408 13 Mar, 2012 [facility] [address] [id number] [place] [address]- 3641 13 Mar, 2012 [facility] [address] [id number] [place] [address]- 7166 13 Mar, 2012 [facility] [address] [id number], [place] [address]- 0343 13 Mar, 2012 [facility] [address] [id number] [place] [address]- 7957 Mar, [facility] [place] [facility] [address] [id number] [place] [address]- 9408 Mar, [facility] [place] [facility] [address] [id number] [place] [address]- 7426 Mar, [facility] [place] [facility] [address] [id number] [place] [address]- 8546 Mar, [facility] [place] [facility] [address] [id number] [place] [address]- 3924 Mar, [facility] [place] [facility] [address] [id number] [place] [address]- 3589 Mar, [facility] [place] [facility] [address] [id number] [place] [address]- 3019 Mar, [facility] [place] [facility] [address] [id number] [place] [address]- 9356 Mar, [facility] [place] [facility] [address] [id number] [place] [address]- 5632 Mar, [facility] [place] [facility] [address] [id number] [place] [address]- 9992 Mar, [facility] [place] [facility] [address] [facility] [id number] [place] [address]- 9534 Feb, [facility] [place] [facility] [address] [id number] [place] [address]- 1880 Feb, [facility] [place] [facility] [address] [id number], [place] [address]- 3678 Feb, [facility] [place] [facility] [address] [id number] [place] [address]- 1396 Feb, [facility] [place] [facility] [address] [facility] [id number] [place] [address]- 0500 Jan, [facility] [place] [facility] [address] [facility] [id number] [place] [address]- 3316 Jan, [facility] [place] [facility] [address] [id number] [place] [address]- 2474 Jan, [facility] [place] [facility] [address] [id number] [place] [address]- 1966 Jan, [facility] [place] [facility] [address] [id number] [place] [address]- 3426 Jan, [facility] [place] [facility] [address] [id number] [place] [address]- 9534 Jan, [facility] [place] [facility] [address] [id number] [place] [address]- 0948 Jan, [facility] [place] [facility] [address] [id number] [place] [address]- 5919 Jan, [facility] [place] [facility] [address] [id number] [place] [address]- 3214 Jan, [facility] [place] [facility] [address] [id number] [place] [address]- 7674 27 Dec, 2011 [facility] [place] [facility] [address] [id number] [place] [address]- 0504 14 Dec, 2011 [facility] [place] [facility] [address] [id number] [place] [address]- 2878 12 Dec, 2011 [facility] [place] [facility] [address] [id number] [place] [address]- 5474 06 Dec, 2011 [facility] [place] [facility] [address] [id number] [place] [address]- 2546 06 Dec, 2011 [facility] [place] [facility] [address] [id number] [place] [address]- 2561 Nov, [facility] [place] [facility] [address] [id number] [place] [address] 2546 Nov, [facility] [place] [facility] [address] [id number] [place] [address]- 9819 23 Nov, 2011 [facility] [place] [facility] [address] [id number] [place] [address]- 4935 Nov, [facility] [place] [facility] [address] [id number] [place] [address]- 4663 Nov, [facility] [place] [facility] [address] [id number] [place] [address]- 9718 Nov, [facility] [place] [facility] [address] [id number] [place] [address]- 1409 Nov, [facility] [place] [facility] [address] [id number] [place] [address]- 1817 Nov, [facility] [place] [facility] [address] [id number] [place] [address]- 1549 Nov, [facility] [place] [facility] [address] [id number] [place] [address]- 9709 Oct, [facility] [place] [facility] [address] [id number] [place] [address]- 4775 Oct, [facility] [place] [facility] [address] [id number] [place] [address]- 6409 Sep, [facility] [place] [facility] [address] [id number] [place] [address]- 8312 Sep, [facility] [place] [facility] [address] [id number] [place] [address]- 2022 Sep, [facility] [place] [facility] [address] [id number] [place] [address]- 9610 August, [facility] [place] [facility] [address] [id number], [place] [address]- 0742 30 Jul, 2011 [facility] [place] [facility] [address] [id number] [place] [address]- 7590 Jul, [facility] [place] [facility] [address] [id number] [place] [address]- 5323 Jul, [facility] [place] [facility] [address] [id number] [place] [address]- 8875 18 Jul, 2011 [facility] [place] [facility] [address] [id number] [place] [address]- 8537 16 Jul, 2011 [facility] [place] [facility] [address] [id number] [place] [address]- 7526 16 Jul, 2011 [facility] [place] [facility] [address] [id number] [place] [address]26 16 Jul, 2011 [facility] [place] [facility] [address] [id number] [place] [address]- 2646 14 Jul, 2011 [facility] [place] [facility] [address] [id number] [place] [address]- 7047 12 Jul, 2011 [facility] [place] [facility] [address] [id number] [place] [address]- 3641 19 Jun, 2011 [facility] [place] [facility] [address] [id number] [place] [address]- 5689 18 Jun, 2011 [facility] [place] [facility] [address] [id number] [place] [address]- 1960 15 Jun, 2011 [facility] [place] [facility] [address] [id number] [place] [address]- 8384 12 Jun, 2011 [facility] [place] [facility] [address] [id number] [place] [address]- 5069 08 Jun, 2011 [facility] [place] [facility] [address] [facility] [id number] [place] [address]- 0351 08 Jun, 2011 [facility] [place] [facility] [address] [id number] [place] [address]- 4946 08 Jun, 2011 [facility] [place] [facility] [address] [id number] [place] [address]- 3085 Jun, [facility] [place] [facility] [address] [id number] [place] [address]- 7165 May, [facility] [place] [facility] [address] [id number] [place] [address]- 0586 May, [facility] [place] [facility] [address] [id number] [place] [address]- 8019 May, [facility] [address] [id number] [place] [address]- 6436 Apr, [facility] [place] [facility] [address] [id number] [place] [address]- 8446 Apr, [facility] [place] [facility] [address] [id number] [place] [address]- 7903 Apr, [facility] [place] [facility] [address] [id number] [place] [address]- 7976 Mar, [facility] [place] [facility] [address] [id number] [place] [address]- 5844 Mar, [facility] [place] [facility] [address] [id number] [place] [address]- 9481 15 Mar, 2011 [facility] [place] [facility] [address] [id number] [place] [address]- 4229 Mar, [facility] [place] [facility] [address] [id number] [place] [address]- 1645 Mar, [facility] [place] [facility] [address] [id number] [place] [address]- 5604 Mar, [facility] [place] [facility] [address] [id number] [place] [address]- 3724 Mar, [facility] [place] [facility] [address] [id number], [place] [address]- 0509 Mar, [facility] [place] [facility] [address] [id number], [place] [address]- 4274 08 Mar, 2011 [facility] [place] [facility] [address] [id number] [place] [address]- 5992 Mar, [facility] [place] [facility] [address] [id number] [place] [address]- 0506 06 Mar, 2011 [facility] [place] [facility] [address] [id number], [place] [address]- 1502 06 Mar, 2011 [facility] [place] [facility] [address] [id number], [place] [address]- 7458 06 Mar, 2011 [facility] [place] [facility] [address] [id number] [place] [address]- 3901 05 Mar, 2011 [facility] [place] [facility] [address] [id number] [place] [address]- 7090 Feb, [facility] [place] [facility] [address] [facility] [id number] [place] [address]- 5576 Feb, [facility] [place] [facility] [address] [id number] [place] [address]- 7632 14 Feb, 2011 [facility] [place] [facility] [address] [id number] [place] [address], [place] [address]- 9991 Jan, [facility] [place] [facility] [address] [id number] [place] [address]- 3095 Jan, [facility] [place] [facility] [address] [facility] [id number], [place] [address]- 1713 Oct, [facility] [place] [facility] [address] [id number] [place] [address]- 5902 Sep, [facility] [place] [facility] [address] [facility] [id number] [place] [address]- 3454 Mar, [facility] [place] [facility] [address] [facility] [id number] [place] [address]- 0031 Mar, [facility] [place] [facility] [address] [facility] [id number] [place] [address]- 4863 16 Feb, 2010 [facility] [place] [facility] [address] [id number], [place] [address]- 2830 Feb, [facility] [place] [facility] [address] [id number] [place] [address]- 2646 Jan, [facility] [place] [facility] [address] [facility] [id number] [place] [address]- 4460 Jan, [facility] [place] [facility] [address] [facility] [id number] [place] [address]- 4064 Mar, [facility] [place] [facility] [id number] [address] Feb, [facility] [id number] [place] [address] Feb, [facility] [id number] [place] [address] Feb, [facility] [id number] [place] [address] Feb, [facility] [id number] [place] [address] Jan, [facility] [id number] [place] [address] Dec, [facility] [id number] [place] [address] Nov, IMMUNIZATIONS No Known Immunizations SOCIAL HISTORY Never Assessed REASON FOR VISIT Controlled Med Refill PLAN OF CARE VITAL SIGNS MEDICATIONS Medication Instructions Dosage Frequency Start Date End Date Duration Status Klonopin 0.5 MG Orally Twice a day 2 tablets in AM and 1 in PM 12h 08 Aug, 2016 28 days Active RESULTS No Results PROCEDURES No Known procedures INSTRUCTIONS MEDICATIONS ADMINISTERED No Known Medications MEDICAL (GENERAL) HISTORY Type Description Date Hospitalization History [facility] March 2015
--- OUTSIDE RECORDS SUMMARY | 2017-10-27 10:31 | XMS REPORT ---
Author Author STEPHANIE CHRISTIANSEN [facility] Address [address] [place] [address] Care Team Providers Care Business Project Manager Name Role Phone STEPHANIE CHRISTIANSEN Unavailable PROBLEMS Type Condition ICD9-CM Code RDI55-TK Code Onset Dates Condition Status SNOMED Code Problem Hyperlipidemia, unspecified hyperlipidemia type E78.5 Active 77210050 Problem Long-term insulin use Z79.4 Active 566174241 Problem Abnormal carotid ultrasound R93.8 Active 222682931 Problem Type 2 diabetes mellitus with complication E11.8 Active 45317986 Problem Positive TB test R76.11 Active 959543224 Problem Vascular dementia with behavior disturbance F01.51 Active 989948043 Problem PVD (peripheral vascular disease) I73.9 Active 618464365 Problem Pain R52 Active 28088832 Problem Other chronic osteomyelitis of left foot M86.672 Active 785331296 Problem Nicotine dependence, unspecified, uncomplicated F17.200 Active 423514122 Problem Peripheral vascular disease due to secondary diabetes E13.51 Active 9720611 Problem Nonintractable epilepsy without status epilepticus, unspecified epilepsy type G40.909 Active 183734710 Problem Recurrent major depressive disorder, remission status unspecified F33.9 Active 47902478 Problem Anxiety F41.9 Active 53667918 Problem Generalized anxiety disorder F41.1 Active 41558419 Problem Vascular dementia F01.50 Active 481475010 Problem Pseudobulbar affect F48.2 Active 05753182 Problem Coronary artery disease involving [place] coronary artery of [place] heart without angina pectoris I25.10 Active 7865454094995 Problem Gastroesophageal reflux disease without esophagitis K21.9 Active 653453261 Problem Cerebrovascular accident (CVA) due to other mechanism I63.8 Active 567051068 Problem Pulmonary emphysema, unspecified emphysema type J43.9 Active 80461390 Problem Neuropathy G62.9 Active 373678449 Problem Depression F32.9 Active 88915890 Problem Essential hypertension I10 Active 94107840 Problem Acquired hypothyroidism E03.9 Active 171646946 ALLERGIES No Information ENCOUNTERS Encounter Location Date Diagnosis [facility] [address] [place] [id number] August, Type 2 diabetes mellitus with complication E11.8 ; Vascular dementia with behavior disturbance F01.51 ; Long-term insulin use Z79.4 and Nicotine dependence, unspecified, uncomplicated F17.200 [facility] [address] [address] August, Generalized anxiety disorder F41.1 [facility] [id number] [place] [address] [id number]- 0879 Jul, Generalized anxiety disorder F41.1 [facility] [id number] [place] [address] [id number] Jun, Generalized anxiety disorder F41.1 [facility] [id number] [place] [address] [id number] Jun, [facility] [id number] [place] [address] [id number] May, [facility] [address] [place] [address] [id number]- 0354 May, [facility] [id number] [place] [address] [id number] May, Generalized anxiety disorder F41.1 [facility] [address] [address] Apr, [facility] [address] [facility] [address] [place] [id number] Apr, Other chronic osteomyelitis of left foot M86.672 ; Type 2 diabetes mellitus with complication E11.8 ; Vascular dementia F01.50 ; Long-term insulin use Z79.4 ; PVD (peripheral vascular disease) I73.9 and Nicotine abuse 305.1 [facility] [address] [address] Apr, [facility] [id number] [place] [address] [id number] Apr, [facility] [address] [place] [address] 95001- 5449 Apr, Pain R52 and Generalized anxiety disorder F41.1 [facility] [id number] [place] [address] 54157- 2803 Mar, [facility] [id number] [place] [address] 40200- 2573 Mar, Pain R52 and Generalized anxiety disorder F41.1 [facility] [address] [place] [id number] Feb, Depression F32.9 ; Type 2 diabetes mellitus with complication E11.8 and Nicotine dependence, unspecified, uncomplicated F17.200 [facility] [id number] [place] [address] 20976- 4427 Feb, Generalized anxiety disorder F41.1 and Pain R52 [facility] [id number] [place] [address] 46637- 1047 Feb, [facility] [id number] [place] [address] 31092- 3468 Jan, [facility] [id number] [place] [address] 60800- 8523 Jan, Generalized anxiety disorder F41.1 and Pain R52 [facility] [id number] [place] [address] 71914- 0043 Jan, [facility] [id number] [place] [address] [id number] Dec, Generalized anxiety disorder F41.1 and Pain R52 [facility] [address] [place] [id number] Dec, Vascular dementia F01.50 ; Pain of left leg M79.605 ; Pain in right leg M79.604 and Type 2 diabetes mellitus with complication E11.8 [facility] [address] [place] [address] 19334- 9689 Dec, Pain R52 [facility] [id number] [place] [address] 79497- 6901 Dec, [facility] [address] [place] [address] 76041- 8366 Nov, [facility] [id number] [place] [address] 55839 2546 Nov, Pain R52 and Generalized anxiety disorder F41.1 [facility] [address] [place] [id number] Nov, Depression F32.9 ; Vascular dementia with behavior disturbance F01.51 and Anxiety F41.9 [facility] [address] [place] [address] 90842- 5698 Nov, Pain R52 and Generalized anxiety disorder F41.1 [facility] [id number] [place] [address] 25782- 4876 Oct, Generalized anxiety disorder F41.1 [facility] [id number] [place] [address] 33585- 8536 Oct, Pain R52 [facility] [address] [place] [address] 84464- 9835 Sep, [facility] [address] [place] [id number] Sep, Generalized anxiety disorder F41.1 [facility] [address] [place] [address] 73352- 0286 Sep, Pain R52 [facility] [address] [place] [address] 40783 2546 Sep, Generalized anxiety disorder F41.1 [facility] [address] [address] 116[address] August, [facility] [id number] [place] [address] 31918 2546 August, [facility] [address] [place] [address] 90998- 2216 August, Pain R52 [facility] [id number] [place] [address] 05598- 1266 August, Generalized anxiety disorder F41.1 [facility] [id number] [place] [address] [id number] August, Generalized anxiety disorder F41.1 [facility] [address] [place] [address] 83217- 4316 Jul, Pain R52 [facility] [id number] [place] [address] 89504- 7243 Jul, [facility] [id number] [place] [address] [id number] Jul, [facility] [id number] [place] [address] 85640- 0760 Jun, [facility] [id number] [place] [address] [id number] Jun, Depression F32.9 [facility] [id number] [place] [address] 74668- 7200 Jun, Pain R52 [facility] [address] [place] [address] 36765- 2528 Jun, [facility] [address] [facility] [address] [place] [id number] Jun, Vascular dementia F01.50 and Depression F32.9 [facility] [address] [place] [address] 00416- 2128 May, Pain R52 [facility] [address] [place] [address] 11623- 6740 May, [facility] [address] [place] [address] 62461- 3419 May, Pseudobulbar affect F48.2 [facility] [address] [place] [address] 25876- 2454 09 May, 2016 [facility] [address] [place] [address] 83463- 1671 08 May, 2016 PVD (peripheral vascular disease) I73.9 [facility] [address] [place] [address] 24489- 0315 May, Vascular dementia with behavior disturbance F01.51 [facility] [id number] [place] [address] 98436- 3540 May, Vascular dementia with behavior disturbance F01.51 [facility] [id number] [place] [address] 75423- 4922 Apr, [facility] [id number] [place] [address] 84851- 1575 Apr, Pain R52 [facility] [address] [place] [id number] Apr, Generalized anxiety disorder F41.1 ; PVD (peripheral vascular disease) I73.9 and Type 2 diabetes mellitus with complication E11.8 [facility] [id number] [place] [address] 91267- 5692 Apr, Vascular dementia with behavior disturbance F01.51 [facility] [id number] [place] [address] 57730- 7534 Apr, [facility] [id number] [place] [address] 50992- 9531 Apr, Vascular dementia with behavior disturbance F01.51 [facility] [id number] [place] [address] 61061- 1620 Apr, [facility] [id number] [place] [address] [id number] Mar, [facility] [address] [place] [address] 49581- 5614 Mar, Type 2 diabetes mellitus with complication E11.8 ; Vascular dementia with behavior disturbance F01.51 and Depression F32.9 [facility] [address] [place] [address] 98932- 4803 Mar, [facility] [id number] [place] [address] 19496- 6273 Feb, [facility] [address] [place] [address] 16791- 7787 Feb, Viral illness B34.9 [facility] [id number] [place] [address] 74052- 4769 Jan, Diabetes 250.00 [facility] [id number] [place] [address] 30077- 9094 Jan, [facility] [id number] [place] [address] 59768- 4239 Jan, [facility] [id number] [place] [address] 20525- 4193 Jan, [facility] [address] [facility] [place] [id number] Jan, Vascular dementia with behavior disturbance F01.51 and Type 2 diabetes mellitus with complication E11.8 [facility] [id number] [place] [address] 97154- 6709 Jan, Pain R52 [facility] [id number] [place] [address] 20670- 2820 Jan, Pain R52 [facility] [id number] [place] [address] 97071- 5362 Dec, [facility] [id number] [place] [address] 61226- 5086 Nov, [facility] [address] [facility] [place] [id number] Nov, Type 2 diabetes mellitus with complication E11.8 [facility] [address] [address] 1979 Nov, [facility] [id number] [place] [address] 84604- 9445 Oct, [facility] [id number] [place] [address] 19587- 5040 Oct, [facility] [id number] [place] [address] 23040- 6337 Oct, Vascular dementia with behavior disturbance F01.51 and Type 2 diabetes mellitus with complication E11.8 [facility] [address] [place] [address] 75618- 6085 August, Type 2 diabetes mellitus with complication E11.8 and Vascular dementia with behavior disturbance F01.51 [facility] [id number] [address]- 5376 August, Vascular dementia F01.50 [facility] [id number] [place] [address] 85812- 5185 August, Vascular dementia with behavior disturbance F01.51 [facility] [id number] [place] [address] 84850- 6421 Jul, Vascular dementia with behavior disturbance F01.51 [facility] [id number] [place] [address] 14047- 1974 Jun, Vascular dementia F01.50 [facility] [id number] [place] [address] 37966- 0377 Jun, Type 2 diabetes mellitus with complication E11.8 ; Long- term insulin use Z79.4 and Vascular dementia with behavior disturbance F01.51 [facility] [address] [address]- 9323 Jun, Vascular dementia with behavior disturbance F01.51 [facility] [address] [address]- 9656 Jun, Vascular dementia F01.50 [facility] [address] [address]- 3962 Apr, [facility] [id number] [place] [address] 97805- 8696 Apr, [facility] [address] [address]- 7595 Apr, [facility] [address] [place] [address] 90185- 9882 Apr, Type 2 diabetes mellitus with complication E11.8 ; Depression F32.9 and Long-term insulin use Z79.4 [facility] [address] [place] [address] 27681- 1468 Mar, [facility] [address] [place] [id number] Mar, Depression F32.9 ; Type 2 diabetes mellitus with complication E11.8 and Long-term insulin use Z79.4 [facility] [address] [address]- 9830 Feb, [facility] [address] [place] [address] 378598- 9349 Feb, Hyperthyroidism E05.90 [facility] [id number] [place] [address] 158690- 6006 Feb, Hyperthyroidism E05.90 [facility] [id number] [place] [address] 217276- 4207 Feb, [facility] [address] [address]- 4629 Jan, [facility] [id number] [place] [address] 231629- 0551 Dec, Nicotine addiction 305.1 [facility] [address] [place] [address] 40624- 2191 Oct, Nicotine abuse 305.1 [facility] [address] [place] [address] 77770- 4780 Oct, [facility] [address] [address]- 3974 August, [facility] [address] [place] [id number] August, History of drug abuse 305.93 and Diabetes 250.00 [facility] [address] [address]- 2886 Jul, [facility] [address] [place] [address]- 2935 13 Jul, 2014 [facility] [address] [id number] [place] [address]- 2016 Jun, [facility] [place] [facility] [address] [id number] [place] [address]- 7386 Jun, [facility] [address] [id number] [place] [address]- 2589 Jun, [facility] [address] [id number] [place] [address]- 7329 Jun, [facility] [address] [id number] [place] [address]- 8234 Jun, [facility] [address] [facility] [id number] [place] [address]- 7683 Jun, [facility] [address] [facility] [id number] [place] [address]- 8145 May, [facility] [address] [id number] [place] [address]- 9103 May, [facility] [address] [facility] [id number] [place] [address]- 4371 May, [facility] [address] [facility] [id number] [place] [address]- 9157 May, [facility] [address] [facility] [id number] [place] [address]- 6649 May, [facility] [address] [facility] [id number] [place] [address]- 7752 Apr, [facility] [address] [facility] [id number] [place] [address]- 1741 Apr, [facility] [address] [id number] Apr, [facility] [address] [facility] [id number] [place] [address]- 2643 Apr, [facility] [place] [facility] [address] [id number] [place] [address]- 7177 Apr, [facility] [place] [facility] [address] [id number] [place] [address]- 1380 Apr, [facility] [place] [facility] [address] [id number] [place] [address]- 2137 Apr, [facility] [place] [facility] [address] [id number] [place] [address]- 9555 Apr, [facility] [place] [facility] [address] [id number] [place] [address]- 2264 Mar, [facility] [place] [facility] [address] [id number] [place] [address]- 4551 Mar, [facility] [place] [facility] [address] [id number] [place] [address]- 9999 Mar, [facility] [place] [facility] [address] [id number] [place] [address]- 9255 Mar, [facility] [place] [facility] [address] [id number] [place] [address]- 9491 Mar, [facility] [place] [facility] [address] [id number] [place] [address]- 3754 Mar, [facility] [place] [facility] [address] [id number] [place] [address]- 2363 Mar, [facility] [place] [facility] [address] [id number] [place] [address]- 2819 Mar, [facility] [place] [facility] [address] [id number] [place] [address]- 0148 Feb, [facility] [place] [facility] [address] [id number] [place] [address]- 0794 Feb, [facility] [place] [facility] [address] [id number] [place] [address]- 3584 Feb, [facility] [place] [facility] [address] [id number] [place] [address]- 3919 Feb, [facility] [place] [facility] [address] [id number] [place] [address]- 9708 Feb, [facility] [address] [place] [id number] Feb, [facility] [place] [facility] [address] [id number] [place] [address]- 0929 Feb, [facility] [place] [facility] [address] [id number] [place] [address]- 9462 Feb, [facility] [place] [facility] [address] [id number] [place] [address]- 9877 Feb, [facility] [place] [facility] [address] [id number] [place] [address]- 0480 Feb, [facility] [place] [facility] [address] [id number] [place] [address] Jan, [facility] [place] [facility] [address] [id number] [place] [address] 30 Jan, 2014 [facility] [place] [facility] [address] [id number] [place] [address] Jan, [facility] [place] [facility] [address] [id number] [place] [address] 17 Jan, 2014 [facility] [place] [facility] [address] [id number] [place] [address] 16 Jan, 2014 [facility] [place] [facility] [address] [id number] [place] [address] 16 Jan, 2014 [facility] [place] [facility] [address] [id number] [place] [address] 15 Jan, 2014 [facility] [place] [facility] [address] [id number] [place] [address] 13 Jan, 2014 [facility] [place] [facility] [address] [id number] [place] [address] Jan, [facility] [place] [facility] [address] [id number] [place] [address] 13 Jan, 2013 [facility] [place] [facility] [address] [id number] [place] [address] 13 Jan, 2013 [facility] [place] [facility] [address] [id number] [place] [address] Jan, 2013 [facility] [place] [facility] [address] [id number] [place] [address] Jan, 2013 [facility] [place] [facility] [address] [id number] [place] [address] Jan, [facility] [place] [facility] [address] [id number] [place] [address] Jan, [facility] [place] [facility] [address] [id number] [place] [address] Jan, [facility] [place] [facility] [address] [id number] [place] [address] Jan, 2013 [facility] [place] [facility] [address] [id number] [place] [address] Sep, 2013 [facility] [place] [facility] [address] [id number] [place] [address] 19 Sep, 2013 [facility] [place] [facility] [address] [id number] [place] [address] 11 Sep, 2013 [facility] [place] [facility] [address] [id number] [place] [address]- [address] 11 Sep, 2013 [facility] [place] [facility] [address] [id number] [place] [address] 09 Sep, 2013 [facility] [place] [facility] [address] [id number] [place] [address]- [address] 09 Sep, 2013 [facility] [place] [facility] [address] [id number] [place] [address]- [address] 08 Sep, 2013 [facility] [place] [facility] [address] [id number] [place] [address]- [address] 08 Sep, 2013 [facility] [place] [facility] [address] [id number] [place] [address] 08 Dec, 2013 [facility] [place] [facility] [address] [id number] [place] [address] Dec, 2013 [facility] [place] [facility] [address] [id number] [place] [address] Dec, 2013 [facility] [place] [facility] [address] [id number] [place] [address] Dec, 2013 [facility] [place] [facility] [address] [id number] [place] [address] Dec, 2013 [facility] [place] [facility] [address] [id number] [place] [address] Dec, [facility] [place] [facility] [address] [id number] [place] [address] Nov, [facility] [place] [facility] [address] [id number] [place] [address]608 Nov, [facility] [place] [facility] [address] [id number] [place] [address] 3748 Nov, [facility] [place] [facility] [address] [id number] [place] [address]- 7873 Nov, [facility] [place] [facility] [address] [id number] [place] [address]- 4631 Nov, [facility] [place] [facility] [address] [id number] [place] [address]- 9126 Nov, [facility] [place] [facility] [address] [id number] [place] [address]- 2724 Nov, [facility] [place] [facility] [address] [id number] [place] [address] 1995 Nov, [facility] [place] [facility] [address] [id number] [place] [address]- 0293 Nov, [facility] [place] [facility] [address] [id number] [place] [address]- 9216 Nov, [facility] [place] [facility] [address] [id number] [place] [address] 7088 Nov, [facility] [place] [facility] [address] [id number] [place] [address]- 8546 Nov, [facility] [place] [facility] [address] [id number] [place] [address]- 3227 Nov, [facility] [place] [facility] [address] [id number] [place] [address]- 9854 Nov, [facility] [place] [facility] [address] [id number] [place] [address]- 8191 Oct, [facility] [place] [facility] [address] [id number] [place] [address]- 3866 Oct, [facility] [place] [facility] [address] [id number] [place] [address]- 8032 Oct, [facility] [place] [facility] [address] [id number] [place] [address]- 1514 Oct, [facility] [place] [facility] [address] [id number] [place] [address]- 1932 Oct, [facility] [place] [facility] [address] [id number] [place] [address]- 4822 Oct, [facility] [place] [facility] [address] [id number] [place] [address]- 5329 Oct, [facility] [place] [facility] [address] [id number] [place] [address]- 7175 Oct, [facility] [place] [facility] [address] [id number] [place] [address]- 9816 Oct, [facility] [place] [facility] [address] [id number] [place] [address]- 2569 Oct, [facility] [place] [facility] [address] [id number] [place] [address]- 9225 Oct, [facility] [place] [facility] [address] [id number] [place] [address]- 3272 Oct, [facility] [place] [facility] [address] [id number] [place] [address]- 6864 Oct, 2013 [facility] [place] [facility] [address] [id number] [place] [address]- 4956 Oct, 2013 [facility] [place] [facility] [address] [id number] [place] [address]- 4664 Oct, 2013 [facility] [place] [facility] [address] [id number] [place] [address]- 3434 Oct, 2013 [facility] [place] [facility] [address] [id number] [place] [address]- 8704 Oct, [facility] [place] [facility] [address] [id number] [place] [address]- 2938 Oct, 2013 [facility] [place] [facility] [address] [id number] [place] [address]- 7455 Oct, [facility] [place] [facility] [address] [id number] [place] [address]- 9349 Oct, [facility] [place] [facility] [address] [id number] [place] [address]- 1752 Sep, [facility] [place] [facility] [address] [id number] [place] [address]- 2465 Sep, [facility] [place] [facility] [address] [id number] [place] [address]- 7598 Sep, [facility] [place] [facility] [address] [id number] [place] [address]- 1215 Sep, [facility] [place] [facility] [address] [id number] [place] [address]- 0100 Sep, [facility] [place] [facility] [address] [id number] [place] [address]- 3913 Sep, [facility] [place] [facility] [address] [id number] [place] [address]- 6115 August, [facility] [place] [facility] [address] [id number] [place] [address]- 3847 August, [facility] [place] [facility] [address] [id number] [place] [address]- 3206 Jul, [facility] [place] [facility] [address] [id number] [place] [address]- 2189 Jul, [facility] [place] [facility] [address] [id number] [place] [address]- 5702 Jul, [facility] [place] [facility] [address] [id number] [place] [address]- 6650 Jul, [facility] [place] [facility] [address] [id number] [place] [address]- 5172 Jul, [facility] [place] [facility] [address] [id number] [place] [address]- 9689 Jul, [facility] [place] [facility] [address] [id number] [place] [address]- 9919 Jul, [facility] [place] [facility] [address] [id number] [place] [address]- 8418 Jul, [facility] [place] [facility] [address] [id number] [place] [address]- 4037 Jun, [facility] [place] [facility] [address] [id number] [place] [address]- 1755 Jun, [facility] [place] [facility] [address] [id number] [place] [address]- 7489 Jun, [facility] [place] [facility] [address] [id number] [place] [address]- 9301 Jun, [facility] [place] [facility] [address] [id number] [place] [address]- 1516 Jun, [facility] [place] [facility] [address] [id number] [place] [address]- 1196 May, [facility] [place] [facility] [address] [id number] [place] [address]- 2858 May, [facility] [place] [facility] [address] [id number] [place] [address]- 8006 May, [facility] [place] [facility] [address] [id number] [place] [address] 2546 May, [facility] [place] [facility] [address] [id number] [place] [address]- 8796 May, [facility] [place] [facility] [address] [id number] [place] [address] 2546 May, [facility] [place] [facility] [address] [id number] [place] [address]- 5666 May, [facility] [place] [facility] [address] [id number] [place] [address]- 0146 May, [facility] [place] [facility] [address] [id number] [place] [address] 2546 May, [facility] [place] [facility] [address] [id number] [place] [address]- 4380 May, [facility] [place] [facility] [address] [facility] [id number] [place] [address]- 7641 May, [facility] [place] [facility] [address] [facility] [id number] [place] [address]- 9295 Apr, [facility] [place] [facility] [address] [facility] [id number] [place] [address] 2546 Apr, [facility] [place] [facility] [address] [id number] [place] [address] 2546 Mar, [facility] [place] [facility] [address] [id number] [place] [address] 2546 Mar, [facility] [place] [facility] [address] [facility] [id number] [place] [address] 2546 Mar, [facility] [place] [facility] [address] [facility] [id number] [place] [address] 2546 Mar, [facility] [place] [facility] [address] [id number] [place] [address]- 5920 Mar, [facility] [place] [facility] [address] [id number] [place] [address]- 1668 Jan, [facility] [place] [facility] [address] [id number] [place] [address]- 9350 Jan, [facility] [place] [facility] [address] [id number] [place] [address]- 4570 Jan, [facility] [place] [facility] [address] [id number] [place] [address]- 0549 Jan, [facility] [place] [facility] [address] [id number] [place] [address]- 1901 Jan, [facility] [place] [facility] [address] [id number] [place] [address]- 5287 Jan, [facility] [place] [facility] [address] [id number] [place] [address]- 4587 Jan, [facility] [place] [facility] [address] [id number] [place] [address]- 4708 Jan, [facility] [place] [facility] [address] [id number] [place] [address]- 1457 Jan, [facility] [place] [facility] [address] [id number] [place] [address]- 8762 Jan, [facility] [place] [facility] [address] [id number] [place] [address]- 8031 Dec, [facility] [place] [facility] [address] [id number] [place] [address]- 3532 Oct, [facility] [place] [facility] [address] [id number] [place] [address]- 9851 Oct, [facility] [place] [facility] [address] [id number] [place] [address]- 2544 Oct, [facility] [place] [facility] [address] [id number] [place] [address]- 0011 Oct, [facility] [address] [id number] [place] [address]- 5128 Oct, [facility] [address] [id number] [place] [address]- 3355 Oct, [facility] [address] [id number] [place] [address]- 9334 Sep, [facility] [address] [id number] [place] [address]- 0985 August, [facility] [address] [id number] [place] [address]- 0835 August, [facility] [address] [id number] [place] [address]- 9807 August, [facility] [address] [id number] [place] [address]- 4746 August, [facility] [address] [id number] [place] [address]- 9559 August, [facility] [address] [id number] [place] [address]- 3408 May, [facility] [address] [id number] [place] [address]- 3775 Apr, [facility] [address] [id number] [place] [address]- 4032 Apr, [facility] [address] [id number] [place] [address]- 1644 Apr, [facility] [address] [id number] [place] [address]- 7144 Apr, [facility] [address] [id number] [place] [address]- 8886 Apr, [facility] [address] [place] [id number] Mar, [facility] [place] [facility] [address] [id number] [place] [address]- 4128 31 Mar, 2012 [facility] [address] [id number] [place] [address]- 5326 19 Mar, 2012 [facility] [place] [facility] [address] [id number] [place] [address]- 4586 19 Mar, 2012 [facility] [address] [id number] [place] [address]- 4796 17 Mar, 2012 [facility] [place] [facility] [address] [id number] [place] [address]- 8806 17 Mar, 2012 [facility] [address] [id number] [place] [address]- 2376 13 Mar, 2012 [facility] [address] [id number] [place] [address]- 2336 13 Mar, 2012 [facility] [address] [id number] [place] [address]- 3633 13 Mar, 2012 [facility] [address] [id number] [place] [address]- 2891 13 Mar, 2012 [facility] [place] [facility] [address] [id number] [place] [address]- 0621 12 Mar, 2012 [facility] [address] [id number] [place] [address]- 0748 12 Mar, 2012 [facility] [place] [facility] [address] [id number] [place] [address]- 6416 10 Mar, 2012 [facility] [place] [facility] [address] [id number] [place] [address]- 1326 10 Mar, 2012 [facility] [place] [facility] [address] [id number] [place] [address]- 8476 07 Mar, 2012 [facility] [place] [facility] [address] [id number] [place] [address]- 5386 07 Mar, 2012 [facility] [place] [facility] [address] [id number] [place] Mar, [facility] [place] [facility] [address] [id number] [place] [address]- 5597 Mar, [facility] [place] [facility] [address] [id number] [place] [address]- 3965 Mar, [facility] [place] [facility] [address] [id number] [place] [address]- 1474 Mar, [facility] [place] [facility] [address] [id number] [place] [address]- 7198 Feb, [facility] [place] [facility] [address] [id number] [place] [address]- 4821 Feb, [facility] [place] [facility] [address] [id number] [place] [address]- 5066 Feb, [facility] [place] [facility] [address] [facility] [id number] [place] [address]- 6657 Feb, [facility] [place] [facility] [address] [id number] [place] [address]- 1921 Jan, [facility] [place] [facility] [address] [id number] [place] [address]- 6502 Jan, [facility] [place] [facility] [address] [id number] [place] [address]- 8968 Jan, [facility] [place] [facility] [address] [id number] [place] [address]- 4336 Jan, [facility] [place] [facility] [address] [id number] [place] [address]- 3812 Jan, [facility] [place] [facility] [address] [id number] [place] [address]- 5906 Jan, [facility] [place] [facility] [address] [id number] [place] [address]- 5391 Jan, [facility] [place] [facility] [address] [facility] [id number] [place] [address]- 2590 Jan, [facility] [place] [facility] [address] [id number] [place] [address]- 1446 10 Jan, 2012 [facility] [place] [facility] [address] [id number] [place] [address]- 9310 27 Dec, 2011 [facility] [place] [facility] [address] [id number] [place] [address]- 5186 14 Dec, 2011 [facility] [place] [facility] [address] [id number] [place] [address]- 8336 12 Dec, 2011 [facility] [place] [facility] [address] [id number] [place] [address]- 3274 06 Dec, 2011 [facility] [place] [facility] [address] [id number] [place] [address]- 5680 06 Dec, 2011 [facility] [place] [facility] [address] [id number] [place] [address]- 3944 Nov, [facility] [place] [facility] [address] [id number] [place] [address]- 0596 Nov, [facility] [place] [facility] [address] [id number] [place] [address]- 2561 Nov, [facility] [place] [facility] [address] [id number] [place] [address]- 1505 Nov, [facility] [place] [facility] [address] [id number] [place] [address]- 0288 Nov, [facility] [place] [facility] [address] [id number] [place] [address]- 1127 Nov, [facility] [place] [facility] [address] [id number] [place] [address]- 7608 Nov, [facility] [place] [facility] [address] [id number] [place] [address]- 8572 Nov, [facility] [place] [facility] [address] [id number] [place] [address]- 9939 Nov, [facility] [place] [facility] [address] [id number] [place] [address]- 3437 Oct, [facility] [place] [facility] [address] [id number] [place] [address]- 2824 13 Oct, 2011 [facility] [place] [facility] [address] [id number] [place] [address]- 8433 14 Sep, 2011 [facility] [place] [facility] [address] [id number] [place] [address]- 1869 13 Sep, 2011 [facility] [place] [facility] [address] [id number] [place] [address]- 9402 05 Sep, 2011 [facility] [place] [facility] [address] [id number] [place] [address]- 1285 14 Aug, 2011 [facility] [place] [facility] [address] [id number] [place] [address]- 0695 30 Jul, 2011 [facility] [place] [facility] [address] [id number] [place] [address]- 8388 27 Jul, 2011 [facility] [place] [facility] [address] [id number] [place] [address]- 7174 27 Jul, 2011 [facility] [place] [facility] [address] [id number] [place] [address]- 8134 18 Jul, 2011 [facility] [place] [facility] [address] [id number] [place] [address]- 1031 16 Jul, 2011 [facility] [place] [facility] [address] [id number] [place] [address]- 5045 16 Jul, 2011 [facility] [place] [facility] [address] [id number] [place] [address]- 1282 16 Jul, 2011 [facility] [place] [facility] [address] [id number] [place] [address]- 4774 14 Jul, 2011 [facility] [place] [facility] [address] [id number] [place] [address]- 1072 12 Jul, 2011 [facility] [place] [facility] [address] [id number] [place] [address]- 2438 19 Jun, 2011 [facility] [place] [facility] [address] [id number] [place] [address]- 7683 18 Jun, 2011 [facility] [place] [facility] [address] [id number] [place] [address]- 1402 15 Jun, 2011 [facility] [place] [facility] [address] [id number] [place] [address]- 5566 12 Jun, 2011 [facility] [place] [facility] [address] [id number] [place] [address]- 9841 08 Jun, 2011 [facility] [place] [facility] [address] [id number] [place] [address]- 9217 08 Jun, 2011 [facility] [place] [facility] [address] [id number] [place] [address]- 9725 08 Jun, 2011 [facility] [place] [facility] [address] [id number] [place] [address]- 3799 Jun, [facility] [place] [facility] [address] [id number] [place] [address]- 0754 May, [facility] [place] [facility] [address] [id number] [place] [address]- 5921 May, [facility] [place] [facility] [address] [id number] [place] [address]- 1664 May, [facility] [place] [facility] [address] [id number] [place] [address]- 1597 Apr, [facility] [place] [facility] [address] [id number] [place] [address]- 4412 Apr, [facility] [place] [facility] [address] [id number] [place] [address]- 9205 Apr, [facility] [place] [facility] [address] [id number] [place] [address]- 3833 Mar, [facility] [place] [facility] [address] [id number] [place] [address]- 1480 Mar, [facility] [place] [facility] [address] [id number] [place] [address]- 8179 Mar, [facility] [place] [facility] [address] [id number] [place] [address]- 5718 13 Mar, 2011 [facility] [address] [id number] [place] [address]- 9204 13 Mar, 2011 [facility] [place] [facility] [address] [id number] [place] [address]- 0025 12 Mar, 2011 [facility] [address] [id number] [place] [address]- 5472 12 Mar, 2011 [facility] [place] [facility] [address] [id number] [place] [address]- 8143 12 Mar, 2011 [facility] [address] [id number] [place] [address]- 3619 08 Mar, 2011 [facility] [place] [facility] [address] [id number] [place] [address]- 1395 Mar, [facility] [place] [facility] [address] [id number] [place] [address] Mar, [facility] [address] [id number] [place] [address] Mar, [facility] [place] [facility] [address] [id number] [place] [address] Mar, [facility] [address] [id number] [place] [address] Mar, [facility] [place] [facility] [address] [id number] [place] [address] Feb, [facility] [place] [facility] [address] [id number] [place] [address] Feb, [facility] [place] [facility] [address] [id number] [place] [address] 14 Feb, 2011 [facility] [place] [facility] [address] [id number] [place] [address] Jan, [facility] [place] [facility] [address] [id number] [place] [address] Jan, [facility] [place] [facility] [address] [id number] [place] [address] Oct, [facility] [place] [facility] [address] [id number] [place] [address] Sep, [facility] [place] [facility] [address] [id number] [place] [address] Mar, [facility] [place] [facility] [address] [id number] [place] [address] Mar, [facility] [place] [facility] [address] [id number] [place] [address] Feb, [facility] [place] [facility] [address] [id number] [place] [address] Feb, [facility] [place] [facility] [address] [id number] [place] [address] Jan, [facility] [place] [facility] [address] [id number] [place] [address] Jan, [facility] [place] [facility] [address] [id number] [place] [address] Mar, [facility] [place] [facility] [address] [id number] [place] [address] Feb, [facility] [place] [facility] [address] [id number] [place] [address] Feb, [facility] [place] [facility] [address] [id number] [place] [address] Feb, [facility] [place] [facility] [address] [id number] [place] [address] Feb, [facility] [place] [facility] [address] [id number] [place] [address] Jan, [facility] [place] [facility] [address] [id number] [place] [address] 16 Dec, 2008 [facility] [place] [facility] [address] [id number] [place] [id number] Nov, IMMUNIZATIONS No Known Immunizations SOCIAL HISTORY Never Assessed REASON FOR VISIT Refill request PLAN OF CARE VITAL SIGNS MEDICATIONS Medication Instructions Dosage Frequency Start Date End Date Duration Status Klonopin 0.5 MG Orally Twice a day 2 tablets in AM and 1 in PM 12h 08 Aug, 2016 28 days Active Ultram 50 mg Orally 3 times a day 1 tablet 8h Apr, 28 days Active RESULTS No Results PROCEDURES No Known procedures INSTRUCTIONS MEDICATIONS ADMINISTERED No Known Medications MEDICAL (GENERAL) HISTORY Type Description Date Hospitalization History [facility] March 2015
[2017-10-27 10:32] LABS: BASOPHILS % (AUTO) 1 % (0-10); EOSINOPHILS # (AUTO) 0.1 10^3/uL (0.0-0.3); EOSINOPHILS % (AUTO) 1 % (0-10); HEMATOCRIT 29 % (40-54); LYMPHOCYTES # (AUTO) 1.2 X 10^3 (1.0-4.0); LYMPHOCYTES % (AUTO) 13 % (12-44); MEAN CORPUSCULAR HEMOGLOBIN 32 PG (25-34); MEAN CORPUSCULAR HGB CONC 35 G/DL (32-36); MEAN CORPUSCULAR VOLUME 93 FL (80-99); MEAN PLATELET VOLUME 11.3 FL (7.4-10.4); MONOCYTES # (AUTO) 0.9 X 10^3 (0.0-1.0); MONOCYTES % (AUTO) 11 % (0-12); NEUTROPHILS # (AUTO) 6.5 X 10^3 (1.8-7.8); NEUTROPHILS % (AUTO) 75 % (42-75); PLATELET COUNT 109 10^3/uL (130-400); RED BLOOD COUNT 3.11 10^6/uL (4.35-5.85); RED CELL DISTRIBUTION WIDTH 12.9 % (10.0-14.5); WHITE BLOOD COUNT 8.7 10^3/uL (4.3-11.0)
--- OUTSIDE RECORDS SUMMARY | 2017-10-27 10:32 | XMS REPORT ---
Author Author STEPHANIE CHRISTIANSEN [facility] Address [address] [place] [address] Care Team Providers Care Block Tester Name Role Phone STEPHANIE CHRISTIANSEN Unavailable PROBLEMS Type Condition ICD9-CM Code MSM86-KL Code Onset Dates Condition Status SNOMED Code Problem Hyperlipidemia, unspecified hyperlipidemia type E78.5 Active 88234009 Problem Long-term insulin use Z79.4 Active 280788644 Problem Abnormal carotid ultrasound R93.8 Active 836403309 Problem Type 2 diabetes mellitus with complication E11.8 Active 26963572 Problem Positive TB test R76.11 Active 262125688 Problem Vascular dementia with behavior disturbance F01.51 Active 653845284 Problem PVD (peripheral vascular disease) I73.9 Active 046065358 Problem Pain R52 Active 63053050 Problem Other chronic osteomyelitis of left foot M86.672 Active 305933568 Problem Nicotine dependence, unspecified, uncomplicated F17.200 Active 247308457 Problem Peripheral vascular disease due to secondary diabetes E13.51 Active 0123428 Problem Nonintractable epilepsy without status epilepticus, unspecified epilepsy type G40.909 Active 540008239 Problem Recurrent major depressive disorder, remission status unspecified F33.9 Active 92466450 Problem Anxiety F41.9 Active 29577088 Problem Generalized anxiety disorder F41.1 Active 29914125 Problem Vascular dementia F01.50 Active 053358624 Problem Pseudobulbar affect F48.2 Active 56072213 Problem Coronary artery disease involving [place] coronary artery of [place] heart without angina pectoris I25.10 Active 6174312022850 Problem Gastroesophageal reflux disease without esophagitis K21.9 Active 515262423 Problem Cerebrovascular accident (CVA) due to other mechanism I63.8 Active 096029583 Problem Pulmonary emphysema, unspecified emphysema type J43.9 Active 80866092 Problem Neuropathy G62.9 Active 834454099 Problem Depression F32.9 Active 11544746 Problem Essential hypertension I10 Active 15377043 Problem Acquired hypothyroidism E03.9 Active 315315587 ALLERGIES No Information ENCOUNTERS Encounter Location Date Diagnosis [facility] [address] [place] [id number] August, Type 2 diabetes mellitus with complication E11.8 ; Vascular dementia with behavior disturbance F01.51 ; Long-term insulin use Z79.4 and Nicotine dependence, unspecified, uncomplicated F17.200 [facility] [address] [address] August, Generalized anxiety disorder F41.1 [facility] [id number] [place] [address] [id number]- 3335 Jul, Generalized anxiety disorder F41.1 [facility] [id number] [place] [address] [id number] Jun, Generalized anxiety disorder F41.1 [facility] [id number] [place] [address] [id number] Jun, [facility] [id number] [place] [address] [id number] May, [facility] [id number] [place] [address] [phone] May, [facility] [id number] [place] [address] [id number] May, Generalized anxiety disorder F41.1 [facility] [address] [address] 39[address] Apr, [facility] [address] [place] [id number] Apr, Other chronic osteomyelitis of left foot M86.672 ; Type 2 diabetes mellitus with complication E11.8 ; Vascular dementia F01.50 ; Long-term insulin use Z79.4 ; PVD (peripheral vascular disease) I73.9 and Nicotine abuse 305.1 [facility] [address] [address] Apr, [facility] [id number] [place] [address] [id number] Apr, [facility] [address] [place] [address] 89419- 1925 Apr, Pain R52 and Generalized anxiety disorder F41.1 [facility] [id number] [place] [address] 76838- 7423 Mar, [facility] [id number] [place] [address] 01302- 1389 Mar, Pain R52 and Generalized anxiety disorder F41.1 [facility] [address] [place] [id number] Feb, Depression F32.9 ; Type 2 diabetes mellitus with complication E11.8 and Nicotine dependence, unspecified, uncomplicated F17.200 [facility] [id number] [place] [address] 83209- 5352 Feb, Generalized anxiety disorder F41.1 and Pain R52 [facility] [id number] [place] [address] 59308- 6812 Feb, [facility] [id number] [place] [address] 84735- 0302 Jan, [facility] [id number] [place] [address] 95241- 9443 Jan, Generalized anxiety disorder F41.1 and Pain R52 [facility] [id number] [place] [address] 58906- 9679 Jan, [facility] [id number] [place] [address] [id number] Dec, Generalized anxiety disorder F41.1 and Pain R52 [facility] [address] [place] [id number] Dec, Vascular dementia F01.50 ; Pain of left leg M79.605 ; Pain in right leg M79.604 and Type 2 diabetes mellitus with complication E11.8 [facility] [address] [place] [address] 94127- 4002 Dec, Pain R52 [facility] [id number] [place] [address] 63519- 3648 Dec, [facility] [address] [place] [address] 43167- 5916 Nov, [facility] [id number] [place] [address] 53441 2546 Nov, Pain R52 and Generalized anxiety disorder F41.1 [facility] [address] [place] [id number] Nov, Depression F32.9 ; Vascular dementia with behavior disturbance F01.51 and Anxiety F41.9 [facility] [address] [place] [address] 62542- 4554 Nov, Pain R52 and Generalized anxiety disorder F41.1 [facility] [id number] [place] [address] 40271- 8576 Oct, Generalized anxiety disorder F41.1 [facility] [id number] [place] [address] 47195- 5966 Oct, Pain R52 [facility] [address] [place] [address] 08609- 6900 Sep, [facility] [address] [place] [id number] Sep, Generalized anxiety disorder F41.1 [facility] [address] [place] [address] 59429- 4582 Sep, Pain R52 [facility] [address] [place] [address] 62765 2546 Sep, Generalized anxiety disorder F41.1 [facility] [address] [address] 3596 August, [facility] [id number] [place] [address] 89700 2546 August, [facility] [address] [place] [address] 04679- 6506 August, Pain R52 [facility] [id number] [place] [address] 87158- 7846 August, Generalized anxiety disorder F41.1 [facility] [id number] [place] [address] [id number] August, Generalized anxiety disorder F41.1 [facility] [address] [place] [address] 64231- 7106 Jul, Pain R52 [facility] [id number] [place] [address] 42124- 0338 Jul, [facility] [id number] [place] [address] [id number] Jul, [facility] [id number] [place] [address] 55370- 9465 Jun, [facility] [id number] [place] [address] [id number] Jun, Depression F32.9 [facility] [id number] [place] [address] 32561- 2128 Jun, Pain R52 [facility] [address] [place] [address] 12728- 7149 Jun, [facility] [address] [place] [id number] Jun, Vascular dementia F01.50 and Depression F32.9 [facility] [address] [place] [address] 17475- 0961 May, Pain R52 [facility] [address] [place] [address] 10777- 0812 May, [facility] [address] [place] [address] 46516- 7125 May, Pseudobulbar affect F48.2 [facility] [address] [place] [address] 91816- 8378 09 May, 2016 [facility] [address] [place] [address] 66834- 8248 08 May, 2016 PVD (peripheral vascular disease) I73.9 [facility] [address] [place] [address] 43463- 4703 May, Vascular dementia with behavior disturbance F01.51 [facility] [id number] [place] [address] 75888- 2638 May, Vascular dementia with behavior disturbance F01.51 [facility] [id number] [place] [address] 42105- 3787 Apr, [facility] [id number] [place] [address] 61864- 6052 Apr, Pain R52 [facility] [address] [place] [id number] Apr, Generalized anxiety disorder F41.1 ; PVD (peripheral vascular disease) I73.9 and Type 2 diabetes mellitus with complication E11.8 [facility] [id number] [place] [address] 64691- 0694 Apr, Vascular dementia with behavior disturbance F01.51 [facility] [id number] [place] [address] 80293- 5389 Apr, [facility] [id number] [place] [address] 83763- 8007 Apr, Vascular dementia with behavior disturbance F01.51 [facility] [id number] [place] [address] 01504- 1298 Apr, [facility] [id number] [place] [address] [id number] Mar, [facility] [address] [place] [address] 75450- 7173 Mar, Type 2 diabetes mellitus with complication E11.8 ; Vascular dementia with behavior disturbance F01.51 and Depression F32.9 [facility] [address] [place] [address] 98438- 0912 Mar, [facility] [id number] [place] [address] 98014- 8176 Feb, [facility] [address] [place] [address] 56964- 2497 Feb, Viral illness B34.9 [facility] [id number] [place] [address] 25174- 3498 Jan, Diabetes 250.00 [facility] [id number] [place] [address] 00326- 2639 Jan, [facility] [id number] [place] [address] 92110- 7994 Jan, [facility] [id number] [place] [address] 89873- 5827 Jan, [facility] [address] [place] [id number] Jan, Vascular dementia with behavior disturbance F01.51 and Type 2 diabetes mellitus with complication E11.8 [facility] [id number] [place] [address] 62365- 8941 Jan, Pain R52 [facility] [id number] [place] [address] 53590- 5534 Jan, Pain R52 [facility] [id number] [place] [address] 78142- 0002 Dec, [facility] [id number] [place] [address] 70433- 5450 Nov, [facility] [address] [place] [id number] Nov, Type 2 diabetes mellitus with complication E11.8 [facility] [address] [address]- 3391 Nov, [facility] [id number] [place] [address] 32279- 6349 Oct, [facility] [id number] [place] [address] 37450- 6581 Oct, [facility] [id number] [place] [address] 99051- 2278 Oct, Vascular dementia with behavior disturbance F01.51 and Type 2 diabetes mellitus with complication E11.8 [facility] [address] [place] [address] 39039- 4496 August, Type 2 diabetes mellitus with complication E11.8 and Vascular dementia with behavior disturbance F01.51 [facility] [id number] [address] 6318 August, Vascular dementia F01.50 [facility] [id number] [place] [address] 29350- 2562 August, Vascular dementia with behavior disturbance F01.51 [facility] [id number] [place] [address] 36510- 1101 Jul, Vascular dementia with behavior disturbance F01.51 [facility] [id number] [place] [address] 21154- 6740 Jun, Vascular dementia F01.50 [facility] [id number] [place] [address] 55537- 4175 Jun, Type 2 diabetes mellitus with complication E11.8 ; Long- term insulin use Z79.4 and Vascular dementia with behavior disturbance F01.51 [facility] [address], [place] [address]- 8194 Jun, Vascular dementia with behavior disturbance F01.51 [facility] [address] [address]- 4837 Jun, Vascular dementia F01.50 [facility] [address], [place] [address]- 1715 Apr, [facility] [id number] [place] [address] 26256- 5860 Apr, [facility] [address] [address]- 2828 Apr, [facility] [address] [place] [address] 97152- 1372 Apr, Type 2 diabetes mellitus with complication E11.8 ; Depression F32.9 and Long-term insulin use Z79.4 [facility] [address] [place] [address] 01258- 3532 Mar, [facility] [address] [place] [id number] Mar, Depression F32.9 ; Type 2 diabetes mellitus with complication E11.8 and Long-term insulin use Z79.4 [facility] [address] [address]- 0927 Feb, [facility] [address] [place] [address] 156054- 0633 Feb, Hyperthyroidism E05.90 [facility] [id number] [place] [address] 590071- 2356 Feb, Hyperthyroidism E05.90 [facility] [id number] [place] [address] 027047- 7055 Feb, [facility] [address] [address]- 9117 Jan, [facility] [id number] [place] [address] 269759- 3023 Dec, Nicotine addiction 305.1 [facility] [address] [place] [address] 63487- 9841 Oct, Nicotine abuse 305.1 [facility] [address] [place] [address] 25551- 1123 Oct, [facility] [address] [address]- 5295 August, [facility] [address] [place] [id number] August, History of drug abuse 305.93 and Diabetes 250.00 [facility] [address] [address]- 2626 Jul, [facility] [address] [place] [address]- 7719 13 Jul, 2014 [facility] [address] [id number] [place] [address]- 2281 Jun, [facility] [place] [facility] [address] [id number] [place] [address]- 3656 Jun, [facility] [address] [id number] [place] [address]- 7019 Jun, [facility] [address] [id number] [place] [address]- 9962 Jun, [facility] [address] [id number] [place] [address]- 5897 Jun, [facility] [address] [facility] [id number] [place] [address]- 7977 Jun, [facility] [address] [facility] [id number] [place] [address]- 4808 May, [facility] [address] [id number] [place] [address]- 3516 May, [facility] [address] [facility] [id number] [place] [address]- 7004 May, [facility] [address] [facility] [id number] [place] [address]- 3261 May, [facility] [address] [facility] [id number] [place] [address]- 2645 May, [facility] [address] [facility] [id number] [place] [address]- 8201 Apr, [facility] [address] [facility] [id number] [place] [address]- 7824 Apr, [facility] [address] [place] [id number] Apr, [facility] [address] [facility] [id number] [address]- 8444 Apr, [facility] [place] [facility] [address] [id number] [place] [address]- 2850 Apr, [facility] [place] [facility] [address] [id number] [place] [address]- 7889 Apr, [facility] [place] [facility] [address] [id number] [place] [address]- 1546 Apr, [facility] [place] [facility] [address] [id number] [place] [address]- 9692 Apr, [facility] [place] [facility] [address] [id number] [place] [address]- 4882 Mar, [facility] [place] [facility] [address] [id number] [place] [address]- 4789 Mar, [facility] [place] [facility] [address] [id number] [place] [address]- 4696 Mar, [facility] [place] [facility] [address] [id number] [place] [address]- 0983 Mar, [facility] [place] [facility] [address] [id number] [place] [address]- 5860 Mar, [facility] [place] [facility] [address] [id number] [place] [address]- 2144 Mar, [facility] [place] [facility] [address] [id number] [place] [address]- 1494 Mar, [facility] [place] [facility] [address] [id number], [place] [address]- 3374 Mar, [facility] [place] [facility] [address] [id number] [place] [address]- 7294 Feb, [facility] [place] [facility] [address] [id number] [place] [address]- 3563 Feb, [facility] [place] [facility] [address] [id number] [address]- 8487 Feb, [facility] [place] [facility] [address] [id number] [address]- 5812 Feb, [facility] [place] [facility] [address] [id number] [place] [address]- 8652 Feb, [facility] [address] [place] [place] [id number] Feb, [facility] [place] [facility] [address] [id number] [place] [address]- 7414 Feb, [facility] [place] [facility] [address] [id number] [place] [address]- 4654 Feb, [facility] [place] [facility] [address] [id number] [place] [address]- 8489 Feb, [facility] [place] [facility] [address] [id number] [place] [address]- 6417 Feb, [facility] [place] [facility] [address] [id number] [place] [address]- 3048 Jan, [facility] [place] [facility] [address] [id number] [place] [address]- 1500 30 Jan, 2014 [facility] [place] [facility] [address] [id number] [place] [address]- 2346 Jan, [facility] [place] [facility] [address] [id number] [place] [address]- 3691 17 Jan, 2014 [facility] [place] [facility] [address] [id number], [place] [address]- 2630 16 Jan, 2014 [facility] [place] [facility] [address] [id number], [place] [address]- 8814 16 Jan, 2014 [facility] [place] [facility] [address] [id number] [place] [address]- 5706 15 Jan, 2014 [facility] [place] [facility] [address] [id number] [place] [address]- 6041 13 Jan, 2014 [facility] [place] [facility] [address] [id number] [place] [address]- 1381 Jan, [facility] [place] [facility] [address] [id number] [place] [address]- 3960 13 Jan, 2013 [facility] [place] [facility] [address] [id number] [place] [address]- 4409 13 Jan, 2013 [facility] [place] [facility] [address] [id number] [place] [address]- 2017 Jan, 2013 [facility] [place] [facility] [address] [id number] [place] [address]- 5131 Jan, 2013 [facility] [place] [facility] [address] [id number] [place] [address]- 1512 Jan, [facility] [place] [facility] [address] [id number] [place] [address]- 3896 Jan, [facility] [place] [facility] [address] [id number] [place] [address]- 1620 Jan, [facility] [place] [facility] [address] [id number] [place] [address] Jan, 2013 [facility] [place] [facility] [address] [id number] [place] [address] Sep, 2013 [facility] [place] [facility] [address] [id number] [place] [address] 19 Sep, 2013 [facility] [place] [facility] [address] [id number] [place] [address] 11 Sep, 2013 [facility] [place] [facility] [address] [id number] [place] [address] 11 Sep, 2013 [facility] [place] [facility] [address] [id number] [place] [address] 09 Sep, 2013 [facility] [place] [facility] [address] [id number] [place] [address] 09 Sep, 2013 [facility] [place] [facility] [address] [id number] [place] [address] 08 Sep, 2013 [facility] [place] [facility] [address] [id number] [place] [address] 08 Sep, 2013 [facility] [place] [facility] [address] [id number] [place] [address] 08 Dec, 2013 [facility] [place] [facility] [address] [id number] [place] [address] Dec, 2013 [facility] [place] [facility] [address] [id number] [place] [address] Dec, 2013 [facility] [place] [facility] [address] [id number] [place] [address] Dec, 2013 [facility] [place] [facility] [address] [id number] [place] [address] Dec, 2013 [facility] [place] [facility] [address] [id number] [place] [address] Dec, [facility] [place] [facility] [address] [id number] [place] [address] Nov, [facility] [place] [facility] [address] [id number] [place] [address] Nov, [facility] [place] [facility] [address] [id number] [place] [address] Nov, [facility] [place] [facility] [address] [id number] [place] [address] Nov, [facility] [place] [facility] [address] [id number] [place] [address] Nov, [facility] [place] [facility] [address] [id number] [place] [address] Nov, [facility] [place] [facility] [address] [id number] [place] [address] Nov, [facility] [place] [facility] [address] [id number] [place] [address] Nov, [facility] [place] [facility] [address] [id number] [place] [address] Nov, [facility] [place] [facility] [address] [id number] [place] [address] Nov, [facility] [place] [facility] [address] [id number] [place] [address] Nov, [facility] [place] [facility] [address] [id number] [place] [address] Nov, [facility] [place] [facility] [address] [id number] [place] [address] Nov, [facility] [place] [facility] [address] [id number] [place] [place] [address] Nov, [facility] [place] [facility] [address] [id number] [place] [address] 4076 Oct, [facility] [place] [facility] [address] [id number] [place] [address] 9855 Oct, [facility] [place] [facility] [address] [id number] [place] [address] 3816 Oct, [facility] [place] [facility] [address] [id number] [place] [address]- 1276 Oct, [facility] [place] [facility] [address] [id number] [place] [address] 8225 Oct, [facility] [place] [facility] [address] [id number] [place] [address] 1907 Oct, [facility] [place] [facility] [address] [id number] [place] [address]- 7993 Oct, [facility] [place] [facility] [address] [id number] [place] [address]- 8365 Oct, [facility] [place] [facility] [address] [id number] [place] [address]- 2385 Oct, [facility] [place] [facility] [address] [id number] [place] [address]- 8651 Oct, [facility] [place] [facility] [address] [id number] [place] [address]- 1263 Oct, [facility] [place] [facility] [address] [id number] [place] [address]- 6222 Oct, [facility] [place] [facility] [address] [id number] [place] [address]- 5959 Oct, 2013 [facility] [place] [facility] [address] [id number] [place] [address]- 4276 Oct, 2013 [facility] [place] [facility] [address] [id number] [place] [address]- 9942 Oct, 2013 [facility] [place] [facility] [address] [id number] [place] [address]- 3070 Oct, 2013 [facility] [place] [facility] [address] [id number] [place] [address]- 5563 Oct, [facility] [place] [facility] [address] [id number] [place] [address]- 0666 Oct, 2013 [facility] [place] [facility] [address] [id number] [place] [address]- 7672 Oct, [facility] [place] [facility] [address] [id number] [place] [address]- 9871 Oct, [facility] [place] [facility] [address] [id number] [place] [address]- 1608 Sep, [facility] [place] [facility] [address] [id number] [place] [address]- 2267 Sep, [facility] [place] [facility] [address] [id number] [place] [address]- 4256 Sep, [facility] [place] [facility] [address] [id number] [place] [address]- 7075 Sep, [facility] [place] [facility] [address] [id number] [place] [address]- 7572 Sep, [facility] [place] [facility] [address] [id number] [place] [address]- 9245 Sep, [facility] [place] [facility] [address] [id number] [place] [address]- 6945 August, [facility] [place] [facility] [address] [id number] [place] [address]- 3983 August, [facility] [place] [facility] [address] [id number] [place] [address]- 7913 Jul, [facility] [place] [facility] [address] [id number] [place] [address]- 0956 Jul, [facility] [place] [facility] [address] [id number] [place] [address]- 2013 Jul, [facility] [place] [facility] [address] [id number] [place] [address]- 9466 Jul, [facility] [place] [facility] [address] [id number] [place] [address]- 9597 Jul, [facility] [place] [facility] [address] [id number] [place] [address]- 3264 Jul, [facility] [place] [facility] [address] [id number] [place] [address]- 1469 Jul, [facility] [place] [facility] [address] [id number] [place] [address]- 2656 Jul, [facility] [place] [facility] [address] [id number] [place] [address]- 2716 Jun, [facility] [place] [facility] [address] [id number] [place] [address]- 1350 Jun, [facility] [place] [facility] [address] [id number] [place] [address]- 3785 Jun, [facility] [place] [facility] [address] [id number] [place] [address]- 6737 Jun, [facility] [place] [facility] [address] [id number] [place] [address]- 1896 Jun, [facility] [place] [facility] [address] [id number] [place] [address]- 4950 May, [facility] [place] [facility] [address] [id number] [place] [address]- 5526 May, [facility] [place] [facility] [address] [id number] [place] [address]- 6886 May, [facility] [place] [facility] [address] [id number] [place] [address] 2546 May, [facility] [place] [facility] [address] [id number] [place] [address]- 3486 May, [facility] [place] [facility] [address] [id number] [place] [address] 2546 May, [facility] [place] [facility] [address] [id number] [place] [address]- 2316 May, [facility] [place] [facility] [address] [id number] [place] [address]- 9536 May, [facility] [place] [facility] [address] [id number] [place] [address] 2546 May, [facility] [place] [facility] [address] [id number] [place] [address]- 0008 May, [facility] [place] [facility] [address] [facility] [id number] [place] [address]- 9611 May, [facility] [place] [facility] [address] [facility] [id number] [place] [address]- 7868 Apr, [facility] [place] [facility] [address] [facility] [id number] [place] [address] 2546 Apr, [facility] [place] [facility] [address] [id number] [place] [address] 2546 Mar, [facility] [place] [facility] [address] [id number] [place] [address] 2546 Mar, [facility] [place] [facility] [address] [facility] [id number] [place] [address] 2546 Mar, [facility] [place] [facility] [address] [facility] [id number] [place] [address]- 2546 Mar, [facility] [place] [facility] [address] [id number] [place] [address]- 7616 Mar, [facility] [place] [facility] [address] [id number] [place] [address]- 5240 Jan, [facility] [place] [facility] [address] [id number] [place] [address]- 1710 Jan, [facility] [place] [facility] [address] [id number] [place] [address]- 2968 Jan, [facility] [place] [facility] [address] [id number] [place] [address]- 6382 Jan, [facility] [place] [facility] [address] [id number] [place] [address]- 5287 Jan, [facility] [place] [facility] [address] [id number] [place] [address]- 0460 Jan, [facility] [place] [facility] [address] [id number] [address]- 1323 Jan, [facility] [place] [facility] [address] [id number] [place] [address]- 3369 Jan, [facility] [place] [facility] [address] [id number] [address]- 4074 Jan, [facility] [place] [facility] [address] [id number] [address]- 3986 Jan, [facility] [place] [facility] [address] [id number] [address]- 0577 Dec, [facility] [place] [facility] [address] [id number] [place] [address]- 0817 Oct, [facility] [place] [facility] [address] [id number], [place] [address]- 2466 Oct, [facility] [place] [facility] [address] [id number][place] [address]- 2542 Oct, [facility] [place] [facility] [address] [id number] [place] [address]- 9234 Oct, [facility] [address] [id number] [place] [address] 4507 Oct, [facility] [address] [id number] [place] [address]- 8692 Oct, [facility] [address] [id number] [place] [address]- 4343 Sep, [facility] [address] [id number] [place] [address]- 4460 August, [facility] [address] [id number] [place] [address] 7603 August, [facility] [address] [id number] [place] [address]- 1841 August, [facility] [address] [id number] [place] [address] 1701 August, [facility] [address] [id number] [place] [address]- 9835 August, [facility] [address] [id number] [place] [address] 1773 May, [facility] [address] [id number] [place] [address]- 9120 Apr, [facility] [address] [id number] [place] [address] 5040 Apr, [facility] [address] [id number] [place] [address] 9615 Apr, [facility] [address] [id number] [place] [address]- 7738 Apr, [facility] [address] [id number] [place] [address]- 4286 Apr, [facility] [place] [id number] Mar, [facility] [place] [facility] [address] [id number] [place] [address]- 1258 31 Mar, 2012 [facility] [address] [id number] [place] [address]- 4146 19 Mar, 2012 [facility] [place] [facility] [address] [id number] [place] [address]- 8376 19 Mar, 2012 [facility] [address] [id number] [place] [address]- 0046 17 Mar, 2012 [facility] [place] [facility] [address] [id number] [place] [address]- 1396 17 Mar, 2012 [facility] [address] [id number] [place] [address]- 0736 13 Mar, 2012 [facility] [address] [id number] [place] [address]- 6796 13 Mar, 2012 [facility] [address] [id number] [place] [address]- 0615 13 Mar, 2012 [facility] [address] [id number] [place] [address]- 7633 13 Mar, [address] [facility] [place] [facility] [address] [id number] [place] [address]- 4982 12 Mar, 2012 [facility] [address] [id number] [place] [address]- 8910 12 Mar, [address] [facility] [place] [facility] [address] [id number] [place] [address]- 1196 10 Mar, [address] [facility] [place] [facility] [address] [id number] [place] [address]- 1246 10 Mar, 2012 [facility] [place] [facility] [address] [id number] [place] [address]- 4836 07 Mar, 2012 [facility] [place] [facility] [address] [id number] [place] [address]- 4966 07 Mar, 2012 [facility] [place] [facility] [address] [id number] [place] [address]99 Mar, [facility] [place] [facility] [address] [id number] [place] [address]- 8366 Mar, [facility] [place] [facility] [address] [id number] [place] [address]- 0688 Mar, [facility] [place] [facility] [address] [id number] [place] [address]- 9181 Mar, [facility] [place] [facility] [address] [id number] [place] [address]- 6163 Feb, [facility] [place] [facility] [address] [id number] [place] [address]- 6953 Feb, [facility] [place] [facility] [address] [id number] [place] [address]- 8611 Feb, [facility] [place] [facility] [address] [facility] [id number] [place] [address]- 3468 Feb, [facility] [place] [facility] [address] [id number] [address]- 1648 Jan, [facility] [place] [facility] [address] [id number] [place] [address]- 1221 Jan, [facility] [place] [facility] [address] [id number] [address]- 3369 Jan, [facility] [place] [facility] [address] [id number] [address]- 7211 Jan, [facility] [place] [facility] [address] [id number] [address]- 6504 Jan, [facility] [place] [facility] [address] [id number] [address]- 5696 Jan, [facility] [place] [facility] [address] [id number] [address]- 4304 Jan, [facility] [place] [facility] [address] [facility] [id number] [address]- 6967 Jan, [facility] [place] [facility] [address] [id number] [place] [address]- 3730 10 Jan, 2012 [facility] [place] [facility] [address] [id number] [place] [address]- 7908 27 Dec, 2011 [facility] [place] [facility] [address] [id number] [place] [address]- 2286 14 Dec, 2011 [facility] [place] [facility] [address] [id number] [place] [address]- 2326 12 Dec, 2011 [facility] [place] [facility] [address] [id number] [place] [address]- 7302 06 Dec, 2011 [facility] [place] [facility] [address] [id number] [place] [address]- 9813 06 Dec, 2011 [facility] [place] [facility] [address] [id number] [place] [address]- 6759 Nov, [facility] [place] [facility] [address] [id number] [place] [address]- 5862 Nov, [facility] [place] [facility] [address] [id number] [place] [address]- 5863 Nov, [facility] [place] [facility] [address] [id number] [place] [address]- 7002 Nov, [facility] [place] [facility] [address] [id number] [place] [address]- 7458 Nov, [facility] [place] [facility] [address] [id number] [place] [address]- 8755 Nov, [facility] [place] [facility] [address] [id number] [place] [address]- 1982 Nov, [facility] [place] [facility] [address] [id number] [place] [address]- 6292 Nov, [facility] [place] [facility] [address] [id number] [place] [address]- 7709 Nov, [facility] [place] [facility] [address] [id number] [place] [address]- 9351 Oct, [facility] [place] [facility] [address] [id number] [place] [address]- 0088 13 Oct, 2011 [facility] [place] [facility] [address] [id number] [place] [address]- 8114 14 Sep, 2011 [facility] [place] [facility] [address] [id number] [place] [address]- 0339 13 Sep, 2011 [facility] [place] [facility] [address] [id number] [place] [address]- 5306 05 Sep, 2011 [facility] [place] [facility] [address] [id number] [place] [address]- 1991 14 Aug, 2011 [facility] [place] [facility] [address] [id number] [place] [address]- 9536 30 Jul, 2011 [facility] [place] [facility] [address] [id number] [place] [address]- 1436 27 Jul, 2011 [facility] [place] [facility] [address] [id number] [place] [address]- 3355 27 Jul, 2011 [facility] [place] [facility] [address] [id number] [place] [address]- 2500 18 Jul, 2011 [facility] [place] [facility] [address] [id number] [place] [address]- 6980 16 Jul, 2011 [facility] [place] [facility] [address] [id number] [place] [address]- 5255 16 Jul, 2011 [facility] [place] [facility] [address] [id number] [place] [address]- 8904 16 Jul, 2011 [facility] [place] [facility] [address] [id number] [place] [address]- 4251 14 Jul, 2011 [facility] [place] [facility] [address] [id number] [place] [address]- 2449 12 Jul, 2011 [facility] [place] [facility] [address] [id number] [place] [address]- 9314 19 Jun, 2011 [facility] [place] [facility] [address] [id number] [place] [address]- 0629 18 Jun, 2011 [facility] [place] [facility] [address] [id number] [place] [address]- 0248 15 Jun, 2011 [facility] [place] [facility] [address] [id number] [place] [address]- 2696 12 Jun, 2011 [facility] [place] [facility] [address] [id number] [place] [address]- 7716 08 Jun, 2011 [facility] [place] [facility] [address] [id number] [place] [address]- 3488 08 Jun, 2011 [facility] [place] [facility] [address] [id number] [place] [address]- 9904 08 Jun, 2011 [facility] [place] [facility] [address] [id number] [place] [address]- 0973 Jun, [facility] [place] [facility] [address] [id number] [place] [address]- 1086 May, [facility] [place] [facility] [address] [id number] [place] [address]- 9964 May, [facility] [place] [facility] [address] [id number] [place] [address]- 3381 May, [facility] [place] [facility] [address] [id number] [place] [address]- 2538 Apr, [facility] [place] [facility] [address] [id number] [place] [address]- 6889 Apr, [facility] [place] [facility] [address] [id number] [place] [address]- 9831 Apr, [facility] [place] [facility] [address] [id number] [place] [address]- 7479 Mar, [facility] [place] [facility] [address] [id number] [place] [address]- 4778 Mar, [facility] [place] [facility] [address] [id number] [place] [address]- 4691 Mar, [facility] [place] [facility] [address] [id number] [place] [address]- 3659 13 Mar, 2011 [facility] [address] [id number] [place] [address]- 7375 13 Mar, 2011 [facility] [place] [facility] [address] [id number] [place] [address]- 0846 12 Mar, 2011 [facility] [address] [id number] [place] [address]- 3955 12 Mar, 2011 [facility] [place] [facility] [address] [id number] [place] [address]- 7603 12 Mar, 2011 [facility] [address] [id number] [place] [address]- 5780 08 Mar, 2011 [facility] [place] [facility] [address] [id number] [place] [address]- 6584 Mar, [facility] [place] [facility] [address] [id number] [place] [address]- 6687 Mar, [facility] [address] [id number] [place] [address]- 4731 Mar, [facility] [place] [facility] [address] [id number] [place] [address]- 3780 Mar, [facility] [address] [id number] [place] [address]- 0329 Mar, [facility] [place] [facility] [address] [id number] [place] [address]- 5448 Feb, [facility] [place] [facility] [address] [id number] [place] [address]- 4722 Feb, [facility] [place] [facility] [address] [id number] [place] [address]- 7652 14 Feb, 2011 [facility] [place] [facility] [address] [id number] [place] [address]- 4361 Jan, [facility] [place] [facility] [address] [id number] [place] [address]- 3999 Jan, [facility] [place] [facility] [address] [id number] [place] [address]- 7649 Oct, [facility] [place] [facility] [address] [id number] [place] [address]- 3136 Sep, [facility] [place] [facility] [address] [id number] [place] [address]- 3270 Mar, [facility] [place] [facility] [address] [id number] [place] [address] Mar, [facility] [place] [facility] [address] [id number] [place] [address] Feb, [facility] [place] [facility] [address] [id number] [place] [address] Feb, [facility] [place] [facility] [address] [id number] [place] [address] Jan, [facility] [place] [facility] [address] [id number] [address] Jan, [facility] [place] [facility] [address] [id number] [place] [address] Mar, [facility] [place] [facility] [address] [id number] [address] Feb, [facility] [place] [facility] [address] [id number] [address] Feb, [facility] [place] [facility] [address] [id number] [address] Feb, [facility] [place] [facility] [address] [id number] [place] [address] Feb, [facility] [place] [facility] [address] [id number][place] [address] Jan, [facility] [place] [facility] [address] [id number] [address] Dec, 2008 [facility] [place] [facility] [address] [id number] [place] [address] Nov, IMMUNIZATIONS No Known Immunizations SOCIAL HISTORY Never Assessed REASON FOR VISIT Refill request PLAN OF CARE VITAL SIGNS MEDICATIONS Unknown Medications RESULTS No Results PROCEDURES No Known procedures INSTRUCTIONS MEDICATIONS ADMINISTERED No Known Medications MEDICAL (GENERAL) HISTORY Type Description Date Hospitalization History [facility] March 2015
--- OUTSIDE RECORDS SUMMARY | 2017-10-27 10:33 | XMS REPORT ---
Author Author STEPHANIE CHRISTIANSEN [facility] Address [address] [place] [address] Care Team Providers Care Psychiatry Instructor Name Role Phone STEPHANIE CHRISTIANSEN Unavailable PROBLEMS Type Condition ICD9-CM Code HDO78-PC Code Onset Dates Condition Status SNOMED Code Problem Hyperlipidemia, unspecified hyperlipidemia type E78.5 Active 86674647 Problem Long-term insulin use Z79.4 Active 013137814 Problem Abnormal carotid ultrasound R93.8 Active 365217418 Problem Type 2 diabetes mellitus with complication E11.8 Active 49617369 Problem Positive TB test R76.11 Active 280124135 Problem Vascular dementia with behavior disturbance F01.51 Active 290548511 Problem PVD (peripheral vascular disease) I73.9 Active 040391127 Problem Pain R52 Active 37646908 Problem Other chronic osteomyelitis of left foot M86.672 Active 914925795 Problem Nicotine dependence, unspecified, uncomplicated F17.200 Active 077417631 Problem Peripheral vascular disease due to secondary diabetes E13.51 Active 4581898 Problem Nonintractable epilepsy without status epilepticus, unspecified epilepsy type G40.909 Active 956218040 Problem Recurrent major depressive disorder, remission status unspecified F33.9 Active 86128952 Problem Anxiety F41.9 Active 33612479 Problem Generalized anxiety disorder F41.1 Active 87660588 Problem Vascular dementia F01.50 Active 850070965 Problem Pseudobulbar affect F48.2 Active 62320390 Problem Coronary artery disease involving [place] coronary artery of [place] heart without angina pectoris I25.10 Active 0500141341969 Problem Gastroesophageal reflux disease without esophagitis K21.9 Active 184676538 Problem Cerebrovascular accident (CVA) due to other mechanism I63.8 Active 932604977 Problem Pulmonary emphysema, unspecified emphysema type J43.9 Active 36261116 Problem Neuropathy G62.9 Active 742414033 Problem Depression F32.9 Active 32218200 Problem Essential hypertension I10 Active 09092707 Problem Acquired hypothyroidism E03.9 Active 470573483 ALLERGIES No Information ENCOUNTERS Encounter Location Date Diagnosis [facility] [id number] [place] [address] 32487- 1742 Jul, Generalized anxiety disorder F41.1 [facility] [id number] [place] [address] [id number] Jun, Generalized anxiety disorder F41.1 [facility] [address] [id number] Jun, [facility] [address] [id number] May, [facility] [address] 47973- 0164 May, [facility] [address] [id number] May, Generalized anxiety disorder F41.1 [facility] [id number] [place] [address] [id number]- 4614 Apr, [facility] [address] [place] [id number] Apr, Other chronic osteomyelitis of left foot M86.672 ; Type 2 diabetes mellitus with complication E11.8 ; Vascular dementia F01.50 ; Long-term insulin use Z79.4 ; PVD (peripheral vascular disease) I73.9 and Nicotine abuse 305.1 [facility] [address] [place] [address] 21754- 5383 Apr, [facility] [id number] [place] [address] [id number] Apr, [facility] [id number] [place] [address] 36380- 5643 Apr, Pain R52 and Generalized anxiety disorder F41.1 [facility] [address] [place] [address] 871544- 9612 Mar, [facility] [id number] [place] [address] 72654- 0001 Mar, Pain R52 and Generalized anxiety disorder F41.1 [facility] [address] [place] [id number] Feb, Depression F32.9 ; Type 2 diabetes mellitus with complication E11.8 and Nicotine dependence, unspecified, uncomplicated F17.200 [facility] [address] [place] [address] 39955- 5279 17 Feb, 2017 Generalized anxiety disorder F41.1 and Pain R52 [facility] [id number] [place] [address] 31253- 1920 Feb, [facility] [id number] [place] [address] 75468- 5684 Jan, [facility] [id number] [place] [address] 23217- 1701 Jan, Generalized anxiety disorder F41.1 and Pain R52 [facility] [id number] [place] [address] 90636- 0271 Jan, [facility] [id number] [place] [address] [id number] Dec, Generalized anxiety disorder F41.[address] [facility] [address] [place] [id number] Dec, Vascular dementia F01.50 ; Pain of left leg M79.605 ; Pain in right leg M79.604 and Type 2 diabetes mellitus with complication E11.8 [facility] [id number] [place] [address] 97878- 0075 Dec, Pain R52 [facility] [id number] [place] [address] 87772- 2570 Dec, [facility] [id number] [place] [address] 82333- 6265 Nov, [facility] [id number] [place] [address] 62951- 5823 Nov, Pain R52 and Generalized anxiety disorder F41.1 [facility] [address] [place] [id number] Nov, Depression F32.9 ; Vascular dementia with behavior disturbance F01.51 and Anxiety F41.9 [facility] [id number] [place] [address] 21168- 4245 Nov, Pain R52 and Generalized anxiety disorder F41.1 [facility] [id number] [place] [address] 60614- 0569 Oct, Generalized anxiety disorder F41.1 [facility] [id number] [place] [address] 98466- 1993 Oct, Pain R52 [facility] [id number] [place] [address] 17239- 6314 Sep, [facility] [address] [facility] [address] [place] [id number] Sep, Generalized anxiety disorder F41.1 [facility] [id number] [place] [address] 28164- 2111 Sep, Pain R52 [facility] [id number] [place] [address] 27972- 0579 Sep, Generalized anxiety disorder F41.1 [facility] [id number] [place] [address] 09606- 9370 August, [facility] [id number] [place] [address] 06249- 0748 August, [facility] [id number] [place] [address] 94545- 0728 August, Pain R52 [facility] [address] [place] [address] 04560- 2507 August, Generalized anxiety disorder F41.1 [facility] [id number] [place] [address] [id number] August, Generalized anxiety disorder F41.1 [facility] [address] [place] [address] 25998- 8796 Jul, Pain R52 [facility] [address] [place] [address] 63434- 4537 Jul, [facility] [id number] [place] [address] [id number] Jul, [facility] [id number] [place] [address] 71393- 6766 Jun, [facility] [id number] [place] [address] [id number] Jun, Depression F32.9 [facility] [id number] [place] [address] 81935- 3257 Jun, Pain R52 [facility] [id number] [place] [address] 22220- 8370 Jun, [facility] [address] [facility] [address] [place] [id number] Jun, Vascular dementia F01.50 and Depression F32.9 [facility] [id number] [place] [address] 44553- 4137 May, Pain R52 [facility] [id number] [place] [address] 37500- 8146 15 May, 2016 [facility] [id number] [place] [address] 50251- 3637 May, Pseudobulbar affect F48.2 [facility] [id number] [place] [address] 43812- 9173 May, [facility] [id number] [place] [address] 55401- 5068 08 May, 2016 PVD (peripheral vascular disease) I73.9 [facility] [id number] [place] [address] 56675- 2456 08 May, 2016 Vascular dementia with behavior disturbance F01.51 [facility] [address] [place] [address] 82105- 0422 02 May, 2016 Vascular dementia with behavior disturbance F01.51 [facility] [id number] [place] [address] 79363- 8500 Apr, [facility] [address] 90768- 4224 Apr, Pain R52 [facility] [address] [place] [id number] Apr, Generalized anxiety disorder F41.1 ; PVD (peripheral vascular disease) I73.9 and Type 2 diabetes mellitus with complication E11.8 [facility] [address] 93833- 7656 Apr, Vascular dementia with behavior disturbance F01.51 [address] [address] 33978- 0128 Apr, [address] 03085- 6180 Apr, Vascular dementia with behavior disturbance F01.51 [address] [id number] [place] [address] 61727- 1425 Apr, [facility] [address] [id number] Mar, [facility] [id number] [place] [address] 81546- 4729 Mar, Type 2 diabetes mellitus with complication E11.8 ; Vascular dementia with behavior disturbance F01.51 and Depression F32.9 [facility] [id number] [place] [address] 01945- 3115 Mar, [facility] [id number] [place] [address] 48337- 4506 Feb, [facility] [address] 02017- 6105 Feb, Viral illness B34.9 [facility] [id number] [place] [address] 11602- 5400 Jan, Diabetes 250.00 [facility] [address] 25580- 3892 Jan, [facility] [address] [facility] [id number] [address]- 2222 Jan, [facility] [address] [facility] [id number] [address]- 0822 Jan, [facility] [address] [place] [id number] Jan, Vascular dementia with behavior disturbance F01.51 and Type 2 diabetes mellitus with complication E11.8 [facility] [address] [facility] [id number] [address]- 6195 Jan, Pain R52 [facility] [id number] [place] [address] 11762- 6244 Jan, Pain R52 [facility] [address] [place] [address] 96631- 8414 Dec, [facility] [address] [address]- 6489 Nov, [facility] [address] [place] [id number] Nov, Type 2 diabetes mellitus with complication E11.8 [facility] [address] [address]- 3074 Nov, [facility] [address] [address]- 4537 Oct, [facility] [address] [address]- 1868 Oct, [facility] [address] [address]- 2193 Oct, Vascular dementia with behavior disturbance F01.51 and Type 2 diabetes mellitus with complication E11.8 [facility] [address] [address]- 1085 August, Type 2 diabetes mellitus with complication E11.8 and Vascular dementia with behavior disturbance F01.51 [facility] [address] [address]- 5456 August, Vascular dementia F01.50 [facility] [address] [address]- 7486 August, Vascular dementia with behavior disturbance F01.51 [facility] [address] [address]- 2546 Jul, Vascular dementia with behavior disturbance F01.51 [facility] [address] [address]- 9946 Jun, Vascular dementia F01.50 [facility] [address] [address]- 3386 Jun, Type 2 diabetes mellitus with complication E11.8 ; Long- term insulin use Z79.4 and Vascular dementia with behavior disturbance F01.51 [place] [address]- 0345 Jun, Vascular dementia with behavior disturbance F01.51 [facility] [address] [address]- 9091 Jun, Vascular dementia F01.50 [place] [address]- 9835 Apr, [place] [address]- 3503 Apr, [address] [address]- 8626 Apr, [place] [address]- 1638 Apr, Type 2 diabetes mellitus with complication E11.8 ; Depression F32.9 and Long-term insulin use Z79.4 [facility] [id number] [address]- 2546 Mar, [facility] [address] [place] [id number] Mar, Depression F32.9 ; Type 2 diabetes mellitus with complication E11.8 and Long-term insulin use Z79.4 [facility] [address] [address]- 3378 Feb, [facility] [address] [address]- 1286 Feb, Hyperthyroidism E05.90 [facility] [address]- 0856 Feb, Hyperthyroidism E05.90 [facility] [address] [address]- 4256 Feb, [facility] [address] [place] [address] 58420- 9187 Jan, [facility] [address] [address]- 9619 Dec, Nicotine addiction 305.1 [facility] [id number] [place] [address] 33097- 4727 Oct, Nicotine abuse 305.1 [facility] [address] [address]- 8663 Oct, [facility] [address] [address]- 5563 August, [address] [place] [id number] August, History of drug abuse 305.93 and Diabetes 250.00 [facility] [address] [address]- 5326 Jul, [facility] [address] [address]- 2051 Jul, [facility] [address] [address]- 2063 Jun, [facility] [address] [address]- 3952 Jun, [facility] [id number] [place] [address]- 8292 Jun, [facility] [address] [id number] [place] [address]- 2776 Jun, [facility] [place] [facility] [address] [id number] [place] [address]- 6634 Jun, [facility] [address] [id number] [place] [address]- 8559 Jun, [facility] [place] [facility] [address] [id number] [place] [address]- 9039 May, [facility] [address] [id number] [place] [address]- 5194 May, [facility] [address] [id number] [place] [address]- 2700 May, [facility] [address] [id number] [place] [address]- 6864 May, [facility] [address] [id number] [place] [address]- 2238 May, [facility] [address] [id number] [place] [address]- 2563 Apr, [facility] [address] [facility] [id number] [address]- 8950 Apr, [address] [place] [id number] Apr, [facility] [address] [id number] [address]- 5004 Apr, [facility] [place] [facility] [address] [id number], [place] [address]- 7240 Apr, [facility] [place] [facility] [address] [id number][place] [address]- 1963 Apr, [facility] [place] [facility] [address] [facility] [id number] [address]- 7804 Apr, [facility] [address] [id number] [place] [address]- 0840 Apr, [facility] [address] [id number] [place] [address]- 6857 Mar, [facility] [address] [id number] [place] [address]- 5325 Mar, [facility] [address] [id number] [place] [address]- 5902 Mar, [facility] [address] [id number] [place] [address]- 7940 Mar, [facility] [address] [id number] [place] [address]- 0441 Mar, [facility] [address] [id number] [place] [address]- 1945 Mar, [facility] [address] [id number] [place] [address]- 9907 Mar, [facility] [address] [id number] [place] [address]- 8502 Mar, [facility] [address] [id number] [place] [address]- 8776 Feb, [facility] [address] [id number] [place] [address]- 9447 Feb, [facility] [address] [id number] [place] [address]- 8600 Feb, [facility] [address] [id number] [place] [address]- 4601 Feb, [facility] [address] [id number] [place] [address]- 0026 Feb, [facility] [address] [place] [id number] Feb, [facility] [address] [id number] [place] [address]- 9234 Feb, [facility] [place] [facility] [address] [id number] [place] [address]- 5994 Feb, [facility] [place] [facility] [address] [id number] [place] 9778 Feb, [facility] [place] [facility] [address] [id number] [place] 0686 Feb, [facility] [place] [facility] [address] [id number] [place] [address]- 8398 Jan, [facility] [place] [facility] [address] [id number] [place] [address]- 8181 30 Jan, 2014 [facility] [place] [facility] [address] [id number] [place] [address]- 8813 Jan, [facility] [place] [facility] [address] [id number] [place] [address]- 7898 17 Jan, 2014 [facility] [place] [facility] [address] [id number] [address]- 4272 16 Jan, 2014 [facility] [place] [facility] [address] [id number] [place] [address]- 5402 16 Jan, 2014 [facility] [place] [facility] [address] [id number] [address]- 7213 15 Jan, 2014 [facility] [place] [facility] [address] [id number] [address]- 0154 13 Jan, 2014 [facility] [place] [facility] [address] [id number][place] [address]- 4551 Jan, [facility] [place] [facility] [address] [id number][place] [address]- 5771 Jan, [facility] [place] [facility] [address] [id number], [place] [address]- 6039 Jan, [facility] [place] [facility] [address] [id number][place]- 9974 09 Jan, 2014 [facility] [place] [facility] [address] [id number] [address]- 5068 09 Jan, 2013 [facility] [place] [facility] [address] [id number] [place] [address]- 5929 08 Jan, 2013 [facility] [place] [facility] [address] [id number] [place] [address]- 9290 08 Jan, 2013 [facility] [place] [facility] [address] [facility] [id number] [place] [address]- 0883 07 Jan, 2013 [facility] [place] [facility] [address] [id number] [place] [address]- 0602 07 Jan, 2013 [facility] [place] [facility] [address] [id number] [place] [address]- 5201 19 Sep, 2013 [facility] [place] [facility] [address] [id number] [place] [address] 19 Sep, 2013 [facility] [place] [facility] [address] [id number], [place] [address] 11 Sep, 2013 [facility] [place] [facility] [address] [id number][place] [address] 1987 11 Sep, 2013 [facility] [place] [facility] [address] [id number] [place] [address] 09 Sep, 2013 [facility] [place] [facility] [address] [facility] [id number], [place] [address] 09 Sep, 2013 [facility] [place] [facility] [address] [id number][place] [address] 08 Sep, 2013 [facility] [place] [facility] [address] [id number], [place] [address] 08 Sep, 2013 [facility] [place] [facility] [address] [id number][place] [address] 08 Sep, 2013 [facility] [place] [facility] [address] [id number][place] [address] 08 Sep, 2013 [facility] [place] [facility] [address] [facility] [id number][place] [address] 05 Sep, 2013 [facility] [place] [facility] [address] [id number] [place] [address] Dec, [facility] [place] [facility] [address] [id number] [place] [address] Dec, [facility] [place] [facility] [address] [id number] [place] [address] Dec, [facility] [place] [facility] [address] [id number] [place] [address] Nov, [facility] [place] [facility] [address] [id number] [place] [address] Nov, [facility] [place] [facility] [address] [id number] [place] [address] Nov, [facility] [place] [facility] [address] [id number] [place] [address] Nov, [facility] [place] [facility] [address] [id number] [place] [address] Nov, [facility] [place] [facility] [address] [id number] [place] [address]- [address] Nov, [facility] [place] [facility] [address] [id number] [place] [address]- [address] Nov, [facility] [place] [facility] [address] [id number] [place] [address]- [address] Nov, [facility] [place] [facility] [address] [id number] [place] [address] Nov, [facility] [place] [facility] [address] [id number] [place] [address]- [address] Nov, [facility] [place] [facility] [address] [id number] [place] [address] Nov, [facility] [place] [facility] [address] [id number] [place] [address] Nov, [facility] [place] [facility] [address] [id number] [place] [address] Nov, [facility] [place] [facility] [address] [id number] [place] [address] Nov, [facility] [place] [facility] [address] [id number] [place] [address] Oct, [facility] [place] [facility] [address] [id number] [place] [address] Oct, [facility] [place] [facility] [address] [id number] [place] [address] Oct, [facility] [place] [facility] [address] [id number] [place] [address] Oct, [facility] [place] [facility] [address] [id number] [place] [address] 1451 Oct, [facility] [place] [facility] [address] [id number] [place] [address]- 2090 Oct, [facility] [place] [facility] [address] [id number] [place] [address] 7969 Oct, [facility] [place] [facility] [address] [id number] [place] [address]- 3486 Oct, [facility] [place] [facility] [address] [id number] [place] [address]- 7585 Oct, [facility] [place] [facility] [address] [id number] [place] [address]- 0834 Oct, [facility] [place] [facility] [address] [id number] [place] [address] 2836 Oct, [facility] [place] [facility] [address] [id number] [place] [address] 1907 Oct, [facility] [place] [facility] [address] [id number] [place] [address]- 0934 Oct, [facility] [place] [facility] [address] [id number] [place] [address]- 3711 Oct, [facility] [place] [facility] [address] [id number] [place] [address] 1967 Oct, [facility] [place] [facility] [address] [id number] [place] [address] 3097 Oct, [facility] [place] [facility] [address] [id number] [place] Oct, [facility] [place] [facility] [address] [id number] [place] [address]- 1410 Oct, [facility] [place] [facility] [address] [id number] [place] [address]- 0327 Oct, [facility] [place] [facility] [address] [id number] [place] [address]- 9597 Oct, [facility] [place] [facility] [address] [id number] [place] [address]- 0337 Sep, [facility] [place] [facility] [address] [id number] [place] [address]- 6798 Sep, [facility] [place] [facility] [address] [id number] [place] [address]- 6892 Sep, [facility] [place] [facility] [address] [id number] [place] [address]- 2242 Sep, [facility] [place] [facility] [address] [id number] [place] [address]- 8204 Sep, [facility] [place] [facility] [address] [id number] [place] [address]- 6469 Sep, [facility] [place] [facility] [address] [id number] [place] [address]- 0980 August, [facility] [place] [facility] [address] [id number] [place] [address]- 4070 August, [facility] [place] [facility] [address] [id number] [place] [address]- 5431 Jul, [facility] [place] [facility] [address] [id number] [place] [address] Jul, [facility] [place] [facility] [address] [id number] [place] [address] 1975 Jul, [facility] [place] [facility] [address] [id number] [place] [address]- 8425 Jul, [facility] [place] [facility] [address] [id number] [place] [address]- 0579 Jul, [facility] [place] [facility] [address] [id number] [place] [address]- 4938 Jul, [facility] [place] [facility] [address] [id number] [place] [address]- 8346 Jul, [facility] [place] [facility] [address] [id number] [place] [address]- 5207 Jul, [facility] [place] [facility] [address] [id number] [place] [address]- 0122 Jun, [facility] [place] [facility] [address] [id number] [place] [address]- 9632 Jun, [facility] [place] [facility] [address] [id number] [place] [address]- 9538 Jun, [facility] [place] [facility] [address] [id number] [place] [address]- 7579 Jun, [facility] [place] [facility] [address] [id number] [place] [address]- 7739 Jun, [facility] [place] [facility] [address] [id number] [place] [address]- 7470 May, [facility] [place] [facility] [address] [id number] [place] [address]- 2785 May, [facility] [place] [facility] [address] [id number] [place] [address]- 8333 May, [facility] [place] [facility] [address] [id number] [place] [address]- 4375 May, [facility] [place] [facility] [address] [id number] [place] [address]- 4599 May, 2013 [facility] [place] [facility] [address] [id number] [place] [address]- 4556 May, [facility] [place] [facility] [address] [id number] [place] [address]- 6026 May, 2013 [facility] [place] [facility] [address] [facility] [id number] [place] [address]- 6646 May, [facility] [place] [facility] [address] [id number] [place] [address]- 2546 May, [facility] [place] [facility] [address] [facility] [id number] [place] [address]- 5386 May, [facility] [place] [facility] [address] [facility] [id number] [place] 9482 May, [facility] [place] [facility] [address] [id number] [place] [address] 8703 Apr, [facility] [place] [facility] [address] [facility] [id number] [place] [address]- 2478 Apr, [facility] [place] [facility] [address] [id number] [place] [address]- 5992 Mar, [facility] [place] [facility] [address] [facility] [id number] [place] [address]- 1286 Mar, [facility] [place] [facility] [address] [facility] [id number] [place] [address] 2546 Mar, [facility] [place] [facility] [address] [facility] [id number] [place] [address] 2546 Mar, [facility] [place] [facility] [address] [facility] [id number] [place] [address]- 3606 Mar, [facility] [place] [facility] [address] [facility] [id number] [place] [address]- 7766 Jan, [facility] [place] [facility] [address] [facility] [id number] [place] [address]- 4707 Jan, [facility] [place] [facility] [address] [id number] [place] [address]- 3518 Jan, [facility] [place] [facility] [address] [id number] [place] [address]- 0596 Jan, [facility] [place] [facility] [address] [id number] [place] [address]- 3861 Jan, [facility] [place] [facility] [address] [id number] [place] [address]- 1416 Jan, [facility] [place] [facility] [address] [id number] [place] [address]- 9842 Jan, [facility] [place] [facility] [address] [id number] [place] [address]- 9114 Jan, [facility] [place] [facility] [address] [id number] [place] [address]- 8244 Jan, [facility] [place] [facility] [address] [id number] [place] [address]- 7023 Jan, [facility] [place] [facility] [address] [id number] [place] [address]- 5431 Dec, [facility] [place] [facility] [address] [id number][place] [address]- 5462 Oct, [facility] [place] [facility] [address] [id number], [place] [address]- 8821 Oct, [facility] [place] [facility] [address] [id number], [place] [address]- 3285 Oct, [facility] [place] [facility] [address] [id number] [place] [address]- 5046 Oct, [facility] [place] [facility] [address] [id number] [place] [address]- 0560 Oct, [facility] [place] [facility] [address] [id number], [place] [address]- 6796 Oct, [facility] [place] [facility] [address] [id number], [place] [address]- 2632 Sep, [facility] [address] [id number] [place] [address]- 8116 August, [facility] [address] [id number] [place] [address]- 6276 August, [facility] [address] [id number] [place] [address]- 1716 August, [facility] [address] [id number] [place] [address]- 9097 August, [facility] [address] [id number] [place] [address]- 0399 August, [facility] [address] [id number] [place] [address]- 4929 May, [facility] [address] [id number] [place] [address]- 7711 Apr, [facility] [address] [id number] [place] [address]- 3800 Apr, [facility] [address] [id number] [place] [address]- 0877 Apr, [facility] [address] [id number] [place] [address]- 7982 Apr, [facility] [address] [id number], [place] [address]- 7487 Apr, [facility] [place] [address] [place] [id number] Mar, [facility] [address] [id number] [place] [address]- 3398 Mar, [facility] [address] [id number] [place] [address]- 4545 Mar, [facility] [address] [id number] [place] [address]- 5223 Mar, [facility] [address] [id number] [place] [address]- 3096 17 Mar, 2012 [facility] [address] [id number] [place] [address]- 2766 17 Mar, 2012 [facility] [place] [facility] [address] [id number] [place] [address]- 0636 13 Mar, 2012 [facility] [address] [id number] [place] [address]- 1096 13 Mar, 2012 [facility] [place] [facility] [address] [id number] [place] [address] 2546 13 Mar, 2012 [facility] [address] [id number] [place] [address]- 3836 13 Mar, 2012 [facility] [address] [id number] [place] [address]- 8586 12 Mar, 2012 [facility] [address] [id number] [place] [address]- 7366 12 Mar, 2012 [facility] [address] [id number] [place] [address]- 4384 10 Mar, 2012 [facility] [place] [facility] [address] [id number] [place] [address]- 6136 10 Mar, 2012 [facility] [address] [id number] [place] [address]- 9100 07 Mar, 2012 [facility] [place] [facility] [address] [id number] [place] [address]- 1936 07 Mar, 2012 [facility] [place] [facility] [address] [id number] [place] [address] 2546 06 Mar, 2012 [facility] [place] [facility] [address] [id number] [place] [address]- 5546 06 Mar, 2012 [facility] [place] [facility] [address] [id number] [place] [address]- 7716 05 Mar, 2012 [facility] [place] [facility] [address] [id number] [place] [address]- 1964 Mar, [facility] [place] [facility] [address] [id number] [place] [address]- 9345 Feb, [facility] [place] [facility] [address] [id number] [place] [address]- 5021 Feb, [facility] [place] [facility] [address] [id number] [place] [address]- 9322 Feb, [facility] [place] [facility] [address] [id number] [place] [address]- 8443 Feb, [facility] [place] [facility] [address] [id number] [place] [address]- 7529 Jan, [facility] [place] [facility] [address] [id number] [place] [address]- 0329 Jan, [facility] [place] [facility] [address] [id number] [place] [address]- 3784 Jan, [facility] [place] [facility] [address] [id number] [place] [address]- 3348 Jan, [facility] [place] [facility] [address] [id number] [place] [address]- 5565 Jan, [facility] [place] [facility] [address] [id number] [place] [address]- 9583 Jan, [facility] [place] [facility] [address] [facility] [id number] [place] [address]- 1524 Jan, [facility] [place] [facility] [address] [id number], [place] [address]- 4816 Jan, [facility] [place] [facility] [address] [id number] [place] [address]- 1490 Jan, [facility] [place] [facility] [address] [id number] [place] [address]- 2199 27 Dec, 2011 [facility] [place] [facility] [address] [id number] [place] [address]- 7053 14 Dec, 2011 [facility] [place] [facility] [address] [id number], [place] [address]- 9189 Dec, [facility] [place] [facility] [address] [id number] [place] [address]- 2730 Dec, [facility] [place] [facility] [address] [id number] [place] [address]- 5796 Dec, [facility] [place] [facility] [address] [id number] [place] [address]- 8450 Nov, [facility] [place] [facility] [address] [id number] [place] [address]- 4298 Nov, [facility] [place] [facility] [address] [id number] [place] [address]- 2153 Nov, [facility] [place] [facility] [address] [id number] [place] [address]- 9149 Nov, [facility] [place] [facility] [address] [id number] [place] [address]- 4995 Nov, [facility] [place] [facility] [address] [id number] [place] [address]- 1982 Nov, [facility] [place] [facility] [address] [id number] [place] [address]- 6980 Nov, [facility] [place] [facility] [address] [id number] [place] [address]- 2371 Nov, [facility] [place] [facility] [address] [id number] [place] [address]- 3823 Nov, [facility] [place] [facility] [address] [id number] [place] [address]- 3443 Oct, [facility] [place] [facility] [address] [id number] [place] [address]- 6619 Oct, [facility] [place] [facility] [address] [id number] [place] [address]- 9239 Sep, [facility] [place] [facility] [address] [id number] [place] [address]- 9187 Sep, [facility] [place] [facility] [address] [id number] [place] [address]- 7084 05 Sep, 2011 [facility] [address] [id number] [place] [address]- 2724 14 Aug, 2011 [facility] [place] [facility] [address] [id number] [place] [address]- 0676 30 Jul, 2011 [facility] [address] [id number] [place] [address]- 7879 27 Jul, 2011 [facility] [address] [id number] [place] [address]- 4691 27 Jul, 2011 [facility] [address] [id number] [place] [address]- 8188 18 Jul, 2011 [facility] [address] [id number] [place] [address]- 3268 16 Jul, 2011 [facility] [address] [id number] [place] [address]- 2027 16 Jul, 2011 [facility] [address] [id number] [place] [address]- 3811 16 Jul, 2011 [facility] [address] [id number] [place] [address]- 8978 14 Jul, 2011 [facility] [address] [id number] [place] [address]- 0591 12 Jul, 2011 [facility] [address] [id number] [place] [address]- 2997 19 Jun, 2011 [facility] [address] [id number] [place] [address]- 9161 18 Jun, 2011 [facility] [place] [facility] [address] [id number] [place] [address]- 3359 15 Jun, 2011 [facility] [place] [facility] [address] [id number] [place] [address]- 4546 12 Jun, 2011 [facility] [place] [facility] [address] [id number] [place] [address]- 5229 08 Jun, 2011 [facility] [address] [id number] [place] [address]- 9798 08 Jun, 2011 [facility] [place] [facility] [address] [id number] [place] [address]- 2688 Jun, [facility] [place] [facility] [address] [id number] [place] [address]- 7975 Jun, [facility] [place] [facility] [address] [id number] [place] [address]- 5441 May, [facility] [place] [facility] [address] [id number] [place] [address]- 2819 May, [facility] [place] [facility] [address] [id number] [place] [address]- 4935 May, [facility] [place] [facility] [address] [id number] [place] [address]- 4701 Apr, [facility] [place] [facility] [address] [id number] [place] [address]- 2911 Apr, [facility] [place] [facility] [address] [id number] [place] [address]- 4755 Apr, [facility] [place] [facility] [address] [id number] [place] [address]- 0446 Mar, [facility] [place] [facility] [address] [id number] [place] [address]- 9948 Mar, [facility] [place] [facility] [address] [id number] [place] [address]- 0072 15 Mar, 2011 [facility] [place] [facility] [address] [id number] [place] [address]- 8614 13 Mar, 2011 [facility] [place] [facility] [address] [id number] [place] [address]- 2466 13 Mar, 2011 [facility] [place] [facility] [address] [id number] [place] [address]- 1806 12 Mar, 2011 [facility] [place] [facility] [address] [id number] [place] 8250 12 Mar, 2011 [facility] [place] [facility] [address] [id number] [place] 1944 Mar, [facility] [place] [facility] [address] [id number] [place] 6924 Mar, [facility] [place] [facility] [address] [id number] [place] [address]- 3776 Mar, [facility] [place] [facility] [address] [id number] [place] [address]- 1048 Mar, [facility] [place] [facility] [address] [id number] [place] 3747 Mar, [facility] [place] [facility] [address] [id number] [place] [address]- 9870 Mar, [facility] [place] [facility] [address] [facility] [id number] [place] [address]- 4971 Mar, [facility] [place] [facility] [address] [id number] [place] [address]- 3090 Feb, [facility] [place] [facility] [address] [id number] [place] [address]- 3814 Feb, [facility] [place] [facility] [address] [facility] [id number] [place] [address]- 1321 Feb, [facility] [place] [facility] [address] [id number] [place] [address]- 6969 Jan, [facility] [place] [facility] [address] [id number] [place] [address]- 2305 Jan, [facility] [place] [facility] [address] [id number] [place] [address]- 3151 Oct, [facility] [place] [facility] [address] [facility] [id number] [place] [address] Sep, [facility] [place] [facility] [address] [id number] [place] [address] Mar, [facility] [address] [facility] [id number] [address] Mar, [facility] [address] [facility] [id number] [address] Feb, [facility] [address] [facility] [id number] [address] Feb, [facility] [address] [facility] [id number] [address] Jan, [facility] [address] [facility] [id number] [address] Jan, [facility] [address] [facility] [id number] [place] [address] Mar, [facility] [id number] [address] Feb, [facility] [id number] [place] [address] Feb, [facility] [id number] [address] Feb, [facility] [id number] [address] Feb, [facility] [id number] [address] Jan, [facility] [id number] [address] Dec, [facility] [address] [id number] [address] Nov, IMMUNIZATIONS No Known Immunizations SOCIAL HISTORY Never Assessed REASON FOR VISIT Refill request PLAN OF CARE VITAL SIGNS MEDICATIONS Medication Instructions Dosage Frequency Start Date End Date Duration Status Klonopin 0.5 MG Orally Twice a day 2 tablets in AM and 1 in PM 12h 08 Aug, 2016 28 days Active Ultram 50 mg Orally 3 times a day 1 tablet 8h 30 Apr, 2016 28 days Active RESULTS No Results PROCEDURES No Known procedures INSTRUCTIONS MEDICATIONS ADMINISTERED No Known Medications MEDICAL (GENERAL) HISTORY Type Description Date Hospitalization History [facility] March 2015
--- OUTSIDE RECORDS SUMMARY | 2017-10-27 10:34 | XMS REPORT ---
Author Author STEPHANIE CHRISTIANSEN [facility] Address [address] [place] [address] Care Team Providers Care Animal Cop Name Role Phone STEPHANIE CHRISTIANSEN Unavailable PROBLEMS Type Condition ICD9-CM Code [id number] Code Onset Dates Condition Status SNOMED Code Problem Hyperlipidemia, unspecified hyperlipidemia type E78.5 Active 43316134 Problem Long-term insulin use Z79.4 Active 804987879 Problem Abnormal carotid ultrasound R93.8 Active 160898382 Problem Type 2 diabetes mellitus with complication E11.8 Active 97576030 Problem Positive TB test R76.11 Active 107814630 Problem Vascular dementia with behavior disturbance F01.51 Active 563175111 Problem PVD (peripheral vascular disease) I73.9 Active 369360389 Problem Pain R52 Active 47726973 Problem Other chronic osteomyelitis of left foot M86.672 Active 415778570 Problem Nicotine dependence, unspecified, uncomplicated F17.200 Active 166754455 Problem Peripheral vascular disease due to secondary diabetes E13.51 Active 3862182 Problem Nonintractable epilepsy without status epilepticus, unspecified epilepsy type G40.909 Active 312636532 Problem Recurrent major depressive disorder, remission status unspecified F33.9 Active 98300665 Problem Anxiety F41.9 Active 44322369 Problem Generalized anxiety disorder F41.1 Active 43281806 Problem Vascular dementia F01.50 Active 316204091 Problem Pseudobulbar affect F48.2 Active 99330582 Problem Coronary artery disease involving [place] coronary artery of [place] heart without angina pectoris I25.10 Active 9452303560385 Problem Gastroesophageal reflux disease without esophagitis K21.9 Active 193848667 Problem Cerebrovascular accident (CVA) due to other mechanism I63.8 Active 803115858 Problem Pulmonary emphysema, unspecified emphysema type J43.9 Active 05115609 Problem Neuropathy G62.9 Active 378832788 Problem Depression F32.9 Active 53975850 Problem Essential hypertension I10 Active 22316099 Problem Acquired hypothyroidism E03.9 Active 967387502 ALLERGIES No Information ENCOUNTERS Encounter Location Date Diagnosis [facility] [id number] [place] [address] [id number] Jun, Generalized anxiety disorder F41.1 [facility] [id number] [place] [address] [id number] Jun, [facility] [address] [id number] May, [facility] [id number] [place] [address] 24540- 9691 May, [facility] [address] [id number] May, Generalized anxiety disorder F41.1 [place] [address] [place] [address] [id number]- 0907 Apr, [facility] [address] [place] [id number] Apr, Other chronic osteomyelitis of left foot M86.672 ; Type 2 diabetes mellitus with complication E11.8 ; Vascular dementia F01.50 ; Long-term insulin use Z79.4 ; PVD (peripheral vascular disease) I73.9 and Nicotine abuse 305.1 [facility] [address] [address] [address] Apr, [facility] [id number] [place] [address] [id number] Apr, [facility] [address] [place] [address] 81396- 8118 Apr, Pain R52 and Generalized anxiety disorder F41.1 [facility] [address] [place] [address] [id number]- 0138 Mar, [place] [address] [place] [address] [id number]- 7779 Mar, Pain R52 and Generalized anxiety disorder F41.1 [facility] [address] [place] [id number] Feb, Depression F32.9 ; Type 2 diabetes mellitus with complication E11.8 and Nicotine dependence, unspecified, uncomplicated F17.200 [facility] [id number] [place] [address] 71809- 0847 Feb, Generalized anxiety disorder F41.1 and Pain R52 [facility] [id number] [place] [address] 54801- 7911 Feb, [facility] [address] 52427- 7935 Jan, [facility] [id number] [place] [address] 79597- 8472 Jan, Generalized anxiety disorder F41.1 and Pain R52 [facility] [id number] [place] [address] 17530- 5500 Jan, [facility] [address] [id number] Dec, Generalized anxiety disorder F41.1 and Pain R52 [facility] [address] [place] [address] Dec, Vascular dementia F01.50 ; Pain of left leg M79.605 ; Pain in right leg M79.604 and Type 2 diabetes mellitus with complication E11.8 [facility] [id number] [place] [address] 67678- 0122 Dec, Pain R52 [facility] [id number] [place] [address] 10811- 2814 Dec, [facility] [id number] [place] [address] 29905- 0132 Nov, [facility] [address] 07737- 7045 Nov, Pain R52 and Generalized anxiety disorder F41.1 [facility] [address] [place] [id number] Nov, Depression F32.9 ; Vascular dementia with behavior disturbance F01.51 and Anxiety F41.9 [facility] [address] [address]- 8691 Nov, Pain R52 and Generalized anxiety disorder F41.1 [facility] [id number] [place] [address] 19718- 3037 Oct, Generalized anxiety disorder F41.1 [facility] [address], [place] [address]- 2938 Oct, Pain R52 [facility] [id number] [place] [address] 33239- 2982 Sep, [facility] [address] [facility] [id number] Sep, Generalized anxiety disorder F41.1 [facility] [address] [place] [address] 00840- 5373 Sep, Pain R52 [facility] [address] [place] [address] 90955- 7619 Sep, Generalized anxiety disorder F41.1 [facility] [address] [address] 9567 August, [facility] [address] [place] [address] 72907- 0075 August, [facility] [address] [address]- 3200 August, Pain R52 [facility] [address], [place] [address] 4953 August, Generalized anxiety disorder F41.1 [facility] [id number] [id number] August, Generalized anxiety disorder F41.1 [facility] [address], [place] [address]- 5142 Jul, Pain R52 [facility] [address], [place] [address]- 8186 Jul, [facility] [id number] [place] [address] [id number] Jul, [facility] [id number] [place] [address] 83163- 2728 Jun, [facility] [id number] [place] [address] [id number] Jun, Depression F32.9 [facility] [id number] [place] [address] 87530- 1971 Jun, Pain R52 [facility] [id number] [place] [address] 87777- 1370 Jun, [facility] [address] [place] [id number] Jun, Vascular dementia F01.50 and Depression F32.9 [facility] [id number] [place] [address] 38036- 5544 May, Pain R52 [facility] [id number] [place] [address] 58918- 0093 15 May, 2016 [facility] [id number] [place] [address] 66382- 0275 May, Pseudobulbar affect F48.2 [facility] [address] [place] [address] 72153- 8110 09 May, 2016 [facility] [address] [place] [address] 16076- 3004 May, PVD (peripheral vascular disease) I73.9 [facility] [address] [place] [address] 31998- 4939 08 May, 2016 Vascular dementia with behavior disturbance F01.51 [facility] [id number] [place] [address] 42567- 3793 May, Vascular dementia with behavior disturbance F01.51 [facility] [address] [place] [address] 03303- 2301 Apr, [facility] [id number] [place] [address] 71417- 9143 Apr, Pain R52 [facility] [address] [place] [id number] Apr, Generalized anxiety disorder F41.1 ; PVD (peripheral vascular disease) I73.9 and Type 2 diabetes mellitus with complication E11.8 [facility] [id number] [place] [address] 66571- 4259 Apr, Vascular dementia with behavior disturbance F01.51 [facility] [address] 57098- 2448 Apr, [place] [address] 34346- 3141 Apr, Vascular dementia with behavior disturbance F01.51 [facility] [id number] [place] [address] 57492- 4229 Apr, [facility] [address] [id number] Mar, [facility] [id number] [place] [address] 79722- 9258 Mar, Type 2 diabetes mellitus with complication E11.8 ; Vascular dementia with behavior disturbance F01.51 and Depression F32.9 [facility] [id number] [place] [address] 78871- 1689 Mar, [facility] [id number] [place] [address] 50586- 3929 Feb, [facility] [id number] [place] [address] 86663- 9081 Feb, Viral illness B34.9 [facility] [address] 67267- 7481 Jan, Diabetes 250.00 [facility] [id number] [place] [address] 95338- 9911 Jan, [facility] [id number] [place] [address] 55503- 3109 Jan, [facility] [address] [facility] [id number], [place] [address]- 1461 Jan, [facility] [address] [place] [address] Jan, Vascular dementia with behavior disturbance F01.51 and Type 2 diabetes mellitus with complication E11.8 [facility] [address] [facility] [id number] [place] [address]- 3496 Jan, Pain R52 [facility] [address] [facility] [id number], [place] [address] 2546 Jan, Pain R52 [facility] [address] [facility] [id number] [place] [address] 08398- 6106 Dec, [facility] [address] [facility] [id number], [place] [address]- 7095 Nov, [facility] [address] [place] [id number] Nov, Type 2 diabetes mellitus with complication E11.8 [facility] [address] [facility] [id number], [place] [address]- 2249 Nov, [facility] [id number], [place] [address]- 3822 Oct, [facility] [id number], [place] [address]- 5979 Oct, [facility] [address], [place] [address]- 5908 Oct, Vascular dementia with behavior disturbance F01.51 and Type 2 diabetes mellitus with complication E11.8 [facility] [address] [facility] [id number], [place] [address]- 3507 August, Type 2 diabetes mellitus with complication E11.8 and Vascular dementia with behavior disturbance F01.51 [facility] [address] [facility] [id number], [place] [address]- 5302 August, Vascular dementia F01.50 [facility] [address] [facility] [id number], [place] [address]- 8973 August, Vascular dementia with behavior disturbance F01.51 [facility] [address], [place] [address]- 0397 Jul, Vascular dementia with behavior disturbance F01.51 [facility] [address], [place] [address]- 3487 Jun, Vascular dementia F01.50 [facility] [address], [place] [address]- 0252 Jun, Type 2 diabetes mellitus with complication E11.8 ; Long- term insulin use Z79.4 and Vascular dementia with behavior disturbance F01.51 [place] [address], [place] [address]- 7376 Jun, Vascular dementia with behavior disturbance F01.51 [place] [address], [place] [address]- 7361 Jun, Vascular dementia F01.50 [place] [address], [place] [address]- 9196 Apr, [place] [address] [place] [address] 30942- 8164 Apr, [place] [address], [place] [address]- 5896 Apr, [place] [address], [place] [address]- 0205 Apr, Type 2 diabetes mellitus with complication E11.8 ; Depression F32.9 and Long-term insulin use Z79.4 [place] [id number], [place] [address]- 7423 Mar, [facility] [address] [id number] Mar, Depression F32.9 ; Type 2 diabetes mellitus with complication E11.8 and Long-term insulin use Z79.4 [place] [id number], [place] [address]- 3965 Feb, [facility] [address], [place] [address]- 8631 Feb, Hyperthyroidism E05.90 [facility] [id number] [place] [address] 19433- 4716 Feb, Hyperthyroidism E05.90 [facility] [address] [place] [address] 17547- 5976 Feb, [facility] [id number] [place] [address] 17282- 1196 Jan, [facility] [id number] [place] [address] 31710- 0536 Dec, Nicotine addiction 305.1 [facility] [id number] [place] [address] 95730- 5357 Oct, Nicotine abuse 305.1 [facility] [id number] [place] [address] 19860- 1386 Oct, [facility] [id number] [place] [address] 56649- 8394 August, [facility] [address] [place] [id number] August, History of drug abuse 305.93 and Diabetes 250.00 [facility] [address], [place] [address]- 5967 Jul, [facility] [address] [place] [address] 37028- 6678 Jul, [facility] [id number] [place] [address] 02799- 6474 Jun, [facility] [id number] [place] [address] 88157- 8057 Jun, [facility] [address], [place] [address]- 1808 Jun, [facility] [id number] [place] [address] 76364- 1509 Jun, [facility] [address] [id number] [place] [address]- 9596 Jun, [facility] [place] [facility] [address] [id number] [place] [address]- 3326 Jun, [facility] [place] [facility] [address] [id number] [place] [address]- 1546 May, [facility] [place] [facility] [address] [id number] [place] [address]- 3162 May, [facility] [address] [id number] [place] [address]- 6627 May, [facility] [place] [facility] [address] [id number] [place] [address]- 2984 May, [facility] [address] [id number], [place] [address]- 0681 May, [facility] [address] [id number], [place] [address]- 0371 Apr, [facility] [address] [id number], [place] [address]- 1422 Apr, [facility] [address] [address] Apr, [facility] [address] [id number], [place] [address]- 9252 Apr, [facility] [place] [facility] [address] [id number], [place] [address]- 4250 Apr, [facility] [place] [facility] [address] [id number], [place] [address]- 8819 Apr, [facility] [place] [facility] [address] [id number], [place] [address]- 4142 Apr, [facility] [place] [facility] [address] [id number], [place] [address]- 5581 Apr, [facility] [place] [facility] [address] [id number] [place] [address]- 1549 Mar, [facility] [address] [id number] [place] [address]- 2720 Mar, [facility] [address] [id number] [place] [address]- 4402 Mar, [facility] [address] [id number] [place] [address]- 8397 Mar, [facility] [address] [id number] [place] [address]- 5559 Mar, [facility] [address] [id number] [place] [address]- 0880 Mar, [facility] [address] [id number] [place] [address]- 6627 Mar, [facility] [address] [id number] [place] [address]- 3562 Mar, [facility] [address] [id number] [place] [address]- 0723 Feb, [facility] [address] [id number] [place] [address]- 8079 Feb, [facility] [address] [id number] [place] [address]- 3927 Feb, [facility] [address] [id number] [place] [address]- 7615 Feb, [facility] [address] [id number], [place] [address]- 0804 Feb, [facility] [address] [address] Feb, [facility] [address] [id number] [place] [address]- 6062 Feb, [facility] [address] [id number], [place] [address]- 9112 Feb, [facility] [place] [facility] [address] [id number] [place] [address]- 3824 Feb, [facility] [place] [facility] [address] [id number] [place] 0993 Feb, [facility] [place] [facility] [address] [id number] [place] 7143 30 Jan, 2014 [facility] [place] [facility] [address] [id number] [place] 9576 30 Jan, 2014 [facility] [place] [facility] [address] [id number] [place] [address]- 3878 Jan, [facility] [place] [facility] [address] [id number] [place] [address]- 2758 17 Jan, 2014 [facility] [place] [facility] [address] [id number] [place] [address]- 0514 16 Jan, 2014 [facility] [place] [facility] [address] [id number] [place] [address]- 9632 16 Jan, 2014 [facility] [place] [facility] [address] [id number] [place] [address]- 7253 15 Jan, 2014 [facility] [place] [facility] [address] [id number] [place] [address]- 4269 Jan, [facility] [place] [facility] [address] [id number] [place] [address]- 3330 Jan, [facility] [place] [facility] [address] [id number] [place] [address]- 4348 Jan, [facility] [place] [facility] [address] [id number] [place] [address]- 0972 Jan, [facility] [place] [facility] [address] [id number] [place] 6968 Jan, [facility] [place] [facility] [address] [id number] [place]- 3352 09 Jan, 2014 [facility] [place] [facility] [address] [id number] [place] [address]- 0787 08 Jan, 2013 [facility] [place] [facility] [address] [id number] [place] [address]- 5411 08 Jan, 2013 [facility] [place] [facility] [address] [id number] [place] [address]- 8923 07 Jan, 2013 [facility] [place] [facility] [address] [id number] [place] [address]- 2628 07 Jan, 2013 [facility] [place] [facility] [address] [id number] [place] [address]- 4451 19 Sep, 2013 [facility] [place] [facility] [address] [id number] [place] [address]- 2000 19 Sep, 2013 [facility] [place] [facility] [address] [id number] [place] [address]- 9634 11 Sep, 2013 [facility] [place] [facility] [address] [id number] [place] [address]- 8183 11 Sep, 2013 [facility] [place] [facility] [address] [id number], [place] [address]- 3730 09 Sep, 2013 [facility] [place] [facility] [address] [id number], [place] [address]- 6679 09 Sep, 2013 [facility] [place] [facility] [address] [id number], [place] [address]- 7656 08 Sep, 2013 [facility] [place] [facility] [address] [id number], [place] [address]- 4045 08 Sep, 2013 [facility] [place] [facility] [address] [id number], [place] [address]- 9921 08 Sep, 2013 [facility] [place] [facility] [address] [id number], [place] [address] 08 Sep, 2013 [facility] [place] [facility] [address] [id number], [place] [address] 05 Sep, 2013 [facility] [place] [facility] [address] [id number], [place] [address] 05 Sep, 2013 [facility] [place] [facility] [address] [id number] [place] [address] Dec, [facility] [place] [facility] [address] [id number] [place] [address] Dec, [facility] [place] [facility] [address] [id number] [place] [address] Nov, [facility] [place] [facility] [address] [id number] [place] [address] Nov, [facility] [place] [facility] [address] [id number] [place] [address] Nov, [facility] [place] [facility] [address] [id number] [place] [address] Nov, [facility] [place] [facility] [address] [id number] [place] [address] Nov, [facility] [place] [facility] [address] [id number] [place] [address] Nov, [facility] [place] [facility] [address] [id number] [place] [address] Nov, [facility] [place] [facility] [address] [id number] [place] [address] Nov, [facility] [place] [facility] [address] [id number] [place] [address]842 Nov, [facility] [place] [facility] [address] [id number] [place] [address] Nov, [facility] [place] [facility] [address] [id number] [place] [address] Nov, [facility] [place] [facility] [address] [id number] [place] [address] Nov, [facility] [place] [facility] [address] [id number] [place] [address]- [address]60 Nov, [facility] [place] [facility] [address] [id number] [place] [address] Nov, [facility] [place] [facility] [address] [id number] [place] [address] Oct, [facility] [place] [facility] [address] [id number] [place] [address] Oct, [facility] [place] [facility] [address] [id number] [place] [address] Oct, [facility] [place] [facility] [address] [id number] [place] [address] Oct, [facility] [place] [facility] [address] [id number] [place] [address]- [address] Oct, [facility] [place] [facility] [address] [id number] [place] [address] Oct, [facility] [place] [facility] [address] [id number] [place] [address] 268[address] Oct, [facility] [place] [facility] [address] [id number] [place] [address] Oct, [facility] [place] [facility] [address] [id number] [place] [address] Oct, [facility] [place] [facility] [address] [id number] [place] [address] Oct, [facility] [place] [facility] [address] [id number] [place] [address] Oct, [facility] [place] [facility] [address] [id number] [place] [address] Oct, [facility] [place] [facility] [address] [id number] [place] [address] Oct, [facility] [place] [facility] [address] [id number] [place] [address] Oct, [facility] [place] [facility] [address] [id number] [place] [address] 6105 Oct, [facility] [place] [facility] [address] [id number] [place] [address]16 Oct, [facility] [place] [facility] [address] [id number] [place] [address]309 Oct, [facility] [place] [facility] [address] [id number] [place] [address] Oct, [facility] [place] [facility] [address] [id number] [place] [address] 3517 Oct, [facility] [place] [facility] [address] [id number] [place] [address]336 Oct, [facility] [place] [facility] [address] [id number] [place] [address] 8433 Sep, [facility] [place] [facility] [address] [id number] [place] [address] 3944 Sep, [facility] [place] [facility] [address] [id number] [place] [address]238 Sep, [facility] [place] [facility] [address] [id number] [place] [address]- 0953 Sep, [facility] [place] [facility] [address] [id number] [place] [address] 2440 Sep, [facility] [place] [facility] [address] [id number] [place] [address] 3091 Sep, [facility] [place] [facility] [address] [id number] [place] [address] 3044 August, [facility] [place] [facility] [address] [id number] [place] [address]- 0981 August, [facility] [place] [facility] [address] [id number] [place] [address] 5367 Jul, [facility] [place] [facility] [address] [id number] [place] [address]- 3564 Jul, [facility] [place] [facility] [address] [id number] [place] [address]- 8117 Jul, [facility] [place] [facility] [address] [id number] [place] [address] 9216 17 Jul, 2013 [facility] [place] [facility] [address] [id number] [place] [address] 1013 Jul, [facility] [place] [facility] [address] [id number] [place] [address] 6369 Jul, [facility] [place] [facility] [address] [id number] [place] [address]- 1822 Jul, [facility] [place] [facility] [address] [id number] [place] [address] 9670 Jul, [facility] [place] [facility] [address] [id number] [place] [address]- 6857 Jun, [facility] [place] [facility] [address] [id number] [place] [address]- 1496 Jun, [facility] [place] [facility] [address] [id number] [place] [address]- 4652 Jun, [facility] [place] [facility] [address] [id number] [place] [address] 1315 Jun, [facility] [place] [facility] [address] [id number] [place] [address]- 7448 Jun, [facility] [place] [facility] [address] [id number] [place] [address] 4916 May, [facility] [place] [facility] [address] [id number] [place] [address] 0290 May, [facility] [place] [facility] [address] [id number] [place] [address]- 5810 May, [facility] [place] [facility] [address] [id number] [place] [address]- 2459 25 May, 2013 [facility] [place] [facility] [address] [id number] [place] [address] 5910 20 May, 2013 [facility] [place] [facility] [address] [id number] [place] [address]- 1546 May, [facility] [place] [facility] [address] [id number] [place] [address]- 0774 May, [facility] [place] [facility] [address] [id number] [place] [address] 2156 May, [facility] [place] [facility] [address] [facility] [id number] [place] [address]- 2536 May, [facility] [place] [facility] [address] [facility] [id number] [place] [address]- 8055 May, [facility] [place] [facility] [address] [facility] [id number] [place] [address]- 7069 May, [facility] [place] [facility] [address] [facility] [id number] [place] [address]- 4086 Apr, [facility] [address] [facility] [id number] [place] [address]- 6276 Apr, [facility] [place] [facility] [address] [facility] [id number] [place] [address]- 5973 Mar, [facility] [place] [facility] [address] [facility] [id number] [place] [address]- 6054 Mar, [facility] [place] [facility] [address] [facility] [id number] [place] [address]- 9115 Mar, [facility] [place] [facility] [address] [facility] [id number], [place] [address] 8385 Mar, [facility] [place] [facility] [address] [facility] [id number], [place] [address]- 6759 Mar, [facility] [place] [facility] [address] [facility] [id number], [place] [address]- 8789 Jan, [facility] [place] [facility] [address] [facility] [id number], [place] [address]- 1996 Jan, [facility] [place] [facility] [address] [facility] [id number], [place] [address]- 5128 Jan, [facility] [place] [facility] [address] [id number] [place] [address]- 6885 Jan, [facility] [place] [facility] [address] [id number] [place] [address]- 4464 Jan, [facility] [place] [facility] [address] [id number] [place] [address]- 5866 Jan, [facility] [place] [facility] [address] [id number] [place] [address]- 4688 Jan, [facility] [place] [facility] [address] [id number] [place] [address]- 4134 Jan, [facility] [place] [facility] [address] [id number] [place] [address]- 1030 Jan, [facility] [place] [facility] [address] [id number] [place] [address]- 7263 Jan, [facility] [place] [facility] [address] [id number] [place] [address]- 8837 Dec, [facility] [place] [facility] [address] [id number] [place] [address]- 5883 Oct, [facility] [place] [facility] [address] [id number] [place] [address]- 0117 Oct, [facility] [place] [facility] [address] [id number] [place] [address]- 0911 Oct, [facility] [place] [facility] [address] [id number] [place] [address]- 4970 Oct, [facility] [place] [facility] [address] [id number] [place] [address]- 6276 Oct, [facility] [place] [facility] [address] [id number] [place] [address]- 3718 Oct, [facility] [place] [facility] [address] [id number] [place] [address]- 9734 Sep, [facility] [place] [facility] [address] [id number] [place] [address] 4713 August, [facility] [address] [id number] [place] [address]- 5444 August, [facility] [address] [id number] [place] [address]- 3516 August, [facility] [address] [id number] [place] [address]- 7206 August, [facility] [address] [id number] [place] [address]- 9516 August, [facility] [address] [id number] [place] [address]- 5973 May, [facility] [address] [id number] [place] [address]- 9846 Apr, [facility] [address] [id number] [place] [address]- 6326 Apr, [facility] [address] [id number] [place] [address]- 1459 Apr, [facility] [address] [id number] [place] [address]- 0752 Apr, [facility] [address] [facility] [id number] [place] [address]- 9796 Apr, [facility] [place] [id number] Mar, [facility] [address] [id number], [place] [address]- 4880 Mar, [facility] [address] [id number] [place] [address]- 7230 Mar, [facility] [address] [id number] [place] [address]- 3326 Mar, [facility] [address] [id number], [place] [address]- 2546 Mar, [facility] [address] [id number], [place] [address]- 6217 17 Mar, 2012 [facility] [place] [facility] [address] [id number] [place] [address]- 0926 13 Mar, 2012 [facility] [place] [facility] [address] [id number] [place] [address]- 5096 13 Mar, 2012 [facility] [place] [facility] [address] [id number] [place] [address]- 1856 13 Mar, 2012 [facility] [place] [facility] [address] [id number] [place] [address]- 4206 13 Mar, 2012 [facility] [place] [facility] [address] [id number] [place] [address]- 2788 12 Mar, 2012 [facility] [place] [facility] [address] [id number] [place] [address]- 4186 12 Mar, 2012 [facility] [place] [facility] [address] [id number] [place] [address]- 4131 Mar, [facility] [place] [facility] [address] [id number] [place] [address]- 6022 Mar, [facility] [place] [facility] [address] [id number] [place] [address]- 3852 Mar, [facility] [place] [facility] [address] [id number] [place] [address]- 0819 07 Mar, 2012 [facility] [place] [facility] [address] [id number] [place] [address]- 9531 06 Mar, 2012 [facility] [place] [facility] [address] [id number] [place] [address]- 9896 Mar, [facility] [place] [facility] [address] [id number] [place] [address]- 3086 05 Mar, 2012 [facility] [place] [facility] [address] [id number] [place] [address]- 9519 05 Mar, 2012 [facility] [place] [facility] [address] [id number] [place] [address]- 5479 Feb, [facility] [place] [facility] [address] [id number] [place] [address]- 0912 Feb, [facility] [place] [facility] [address] [id number] [place] [address]- 2413 Feb, [facility] [place] [facility] [address] [id number] [place] [address]- 9608 Feb, [facility] [place] [facility] [address] [id number] [place] [address]- 5317 Jan, [facility] [place] [facility] [address] [id number] [place] [address]- 8736 Jan, [facility] [place] [facility] [address] [id number] [place] [address]- 2568 Jan, [facility] [place] [facility] [address] [id number] [place] [address]- 2076 Jan, [facility] [place] [facility] [address] [id number] [place] [address]- 0598 Jan, [facility] [place] [facility] [address] [id number] [place] [address]- 3920 Jan, [facility] [place] [facility] [address] [id number] [place] [address]- 3811 Jan, [facility] [place] [facility] [address] [id number] [place] [address]- 5580 Jan, [facility] [place] [facility] [address] [id number] [place] [address]- 0073 10 Jan, 2012 [facility] [place] [facility] [address] [id number] [place] [address]- 0640 27 Dec, 2011 [facility] [place] [facility] [address] [id number] [place] [address]- 6743 14 Sep2011 [facility] [place] [facility] [address] [id number] [place] [address]- 4028 12 Dec, 2011 [facility] [place] [facility] [address] [id number] [place] [address]- 3942 Dec, [facility] [place] [facility] [address] [id number] [place] [address]- 8151 Dec, [facility] [place] [facility] [address] [id number] [place] [address]- 0959 Nov, [facility] [place] [facility] [address] [id number] [place] [address]- 0697 Nov, [facility] [place] [facility] [address] [id number] [place] [address]- 1865 Nov, [facility] [place] [facility] [address] [id number] [place] [address]- 5323 Nov, [facility] [place] [facility] [address] [id number] [place] [address]- 9128 Nov, [facility] [place] [facility] [address] [id number] [place] [address]- 2211 Nov, [facility] [place] [facility] [address] [id number] [place] [address]- 0588 Nov, [facility] [place] [facility] [address] [id number] [place] [address]- 8941 Nov, [facility] [place] [facility] [address] [id number] [place] [address]- 2567 Nov, [facility] [place] [facility] [address] [id number] [place] [address]- 4316 Oct, [facility] [place] [facility] [address] [id number] [place] [address]- 3700 Oct, [facility] [place] [facility] [address] [id number] [place] [address]- 7530 Sep, [facility] [place] [facility] [address] [id number] [place] [address]- 1028 Sep, [facility] [place] [facility] [address] [id number] [place] [address]- 7020 Sep, [facility] [place] [facility] [address] [id number] [place] [address]- 3575 14 Aug, 2011 [facility] [place] [facility] [address] [id number] [place] [address]- 7611 30 Jul, 2011 [facility] [place] [facility] [address] [id number] [place] [address]- 5077 27 Jul, 2011 [facility] [place] [facility] [address] [id number] [place] [address]- 8828 27 Jul, 2011 [facility] [place] [facility] [address] [id number] [place] [address]- 5277 18 Jul, 2011 [facility] [place] [facility] [address] [id number] [place] [address]- 7825 16 Jul, 2011 [facility] [place] [facility] [address] [id number] [place] [address]- 4331 16 Jul, 2011 [facility] [place] [facility] [address] [id number] [place] [address]- 9394 16 Jul, 2011 [facility] [place] [facility] [address] [id number] [place] [address]- 9908 14 Jul, 2011 [facility] [place] [facility] [address] [id number] [place] [address]- 5415 12 Jul, 2011 [facility] [place] [facility] [address] [id number] [place] [address]- 1662 19 Jun, 2011 [facility] [place] [facility] [address] [id number] [place] [address]- 8406 18 Jun, 2011 [facility] [place] [facility] [address] [id number] [place] [address]- 3650 15 Jun, 2011 [facility] [place] [facility] [address] [id number] [place] [address]- 9658 12 Jun, 2011 [facility] [place] [facility] [address] [id number] [place] [address]- 0188 08 Jun, 2011 [facility] [place] [facility] [address] [id number] [place]843 08 Jun, 2011 [facility] [place] [facility] [address] [id number] [place] [address]- 5381 Jun, [facility] [address] [id number] [place] [address]- 6256 Jun, [facility] [place] [facility] [address] [id number] [place] [address]- 5786 May, [facility] [place] [facility] [address] [id number] [place] [address]- 2106 May, [facility] [address] [id number] [place] [address]- 7559 May, [facility] [address] [id number] [place] [address]- 8312 Apr, [facility] [address] [id number] [place] [address]- 7657 Apr, [facility] [address] [id number] [place] [address]- 0618 Apr, [facility] [address] [id number] [place] [address]- 1806 Mar, [facility] [address] [id number] [place] [address]- 7875 Mar, [facility] [address] [id number] [place] [address]- 5662 15 Mar, 2011 [facility] [place] [facility] [address] [id number] [place] [address]- 3916 Mar, [facility] [place] [facility] [address] [id number] [place] [address]- 3906 Mar, [facility] [place] [facility] [address] [id number] [place] [address]- 2776 Mar, [facility] [place] [facility] [address] [id number] [place] [address] Mar, [facility] [place] [facility] [address] [id number], [place] [address]- 5251 Mar, [facility] [place] [facility] [address] [id number] [place] [address]- 9664 08 Mar, 2011 [facility] [place] [facility] [address] [id number] [place] [address]- 9266 Mar, [facility] [place] [facility] [address] [id number] [place] [address]- 9117 Mar, [facility] [place] [facility] [address] [id number] [place] [address]- 8169 Mar, [facility] [place] [facility] [address] [id number] [place] [address]- 8937 Mar, [facility] [place] [facility] [address] [id number] [place] [address]- 6770 Mar, [facility] [place] [facility] [address] [id number] [place] [address]- 9213 Feb, [facility] [place] [facility] [address] [id number] [place] [address]- 1854 Feb, [facility] [place] [facility] [address] [id number] [place] [address]- 2701 Feb, [facility] [place] [facility] [address] [id number] [place] [address]- 7188 Jan, [facility] [place] [facility] [address] [id number], [place] [address]- 2855 Jan, [facility] [place] [facility] [address] [id number], [place] [address]- 4344 Oct, [facility] [place] [facility] [address] [id number] [place] [address]- 4046 Sep, [facility] [place] [facility] [address] [id number] [place] [address]- 8367 Mar, [facility] [place] [facility] [address] [id number] [place] [address]- 5781 16 Mar, 2010 [facility] [place] [facility] [id number], [place] [address]- 7584 16 Feb, 2010 [facility] [id number], [place] [address]- 6689 Feb, [facility] [id number], [place] [address]- 3544 Jan, [facility] [id number], [place] [address]- 2813 Jan, [facility] [id number], [place] [address]- 5561 Mar, [facility] [id number] [place] [address] 758793- 6145 Feb, [facility] [id number], [place] [address]- 8252 Feb, [facility] [id number] [place] [address]- 1344 Feb, [facility] [id number], [place] [address]- 8762 Feb, [facility] [id number], [place] [address]- 0597 Jan, [facility] [id number], [place] [address]- 7155 Dec, [facility] [id number], [place] [address]- 3838 Nov, IMMUNIZATIONS No Known Immunizations SOCIAL HISTORY Never Assessed REASON FOR VISIT Routine visit PLAN OF CARE Activity Details Follow Up prn Reason: VITAL SIGNS MEDICATIONS Medication Instructions Dosage Frequency Start Date End Date Duration Status NovoLog 100 UNIT/ML Subcutaneous 3 times a day 3 units 8h Active Exelon 9.5 MG/24HR Transdermal Once a day 1 patch to skin 24h Active Vasotec 2.5 MG Orally Once a day 1 tablet 24h Active Metoprolol Tartrate 25 MG Orally Twice a day 1 tablet with food 12h Active Divalproex Sodium 125 MG Orally 4 times a day 2 capsules 6h Active Mylanta 200-200-20 MG/5ML Orally every 4 hrs 30 ml as needed 4h Active Synthroid 150 MCG Orally Once a day 1 tablet on an empty stomach in the morning 24h Active Levemir 100 UNIT/ML Subcutaneous at bedtime 4 units Active Cholecalciferol 400 UNIT Orally Once a day 1 tablet 24h Active Aspir-81 81 MG Orally Once a day 1 tablet 24h Active Simvastatin 10 MG Orally Once a day 1 tablet in the evening 24h Active Clonidine HCl 0.2 MG Orally twice a day 1 tablet 12h Active Remeron 15 MG Orally Once a day 1 tablet at bedtime 24h Active Melatonin 3 MG Orally Once a day 1 tablet at bedtime 24h Active Ultram 50 mg Orally 3 times a day 1 tablet 8h 30 Apr, 2016 28 days Active Metformin HCl 1000 MG Orally Twice a day 1 tablet with meals 12h Active Plavix 75 MG Orally Once a day 1 tablet 24h Active Celexa 40 mg Orally Once a day 1 tablet 24h Active Klonopin 0.5 MG Orally Twice a day 2 tablets in AM and 1 in PM 12h August, Active Levetiracetam 500 mg Orally Twice a day 1 tablet 12h Active Lactobacillus - Orally 4 times a day 1 tablet 6h Active RESULTS No Results PROCEDURES Procedure Date Ordered Result Body Site Minor complication (15 mins) September 24, 2016 INSTRUCTIONS MEDICATIONS ADMINISTERED No Known Medications MEDICAL (GENERAL) HISTORY Type Description Date Hospitalization History [facility] March 2015
--- OUTSIDE RECORDS SUMMARY | 2017-10-27 10:35 | XMS REPORT ---
Author Author JOLLY DELANEY [facility] Address [address] [place] [address] Care Team Providers Care Appeals Officer Name Role Phone JOLLY DELANEY Unavailable PROBLEMS Type Condition ICD9-CM Code SLP11-ZZ Code Onset Dates Condition Status SNOMED Code Problem Hyperlipidemia, unspecified hyperlipidemia type E78.5 Active 92749805 Problem Long-term insulin use Z79.4 Active 457383758 Problem Abnormal carotid ultrasound R93.8 Active 087627274 Problem Type 2 diabetes mellitus with complication E11.8 Active 17138514 Problem Positive TB test R76.11 Active 920769314 Problem Vascular dementia with behavior disturbance F01.51 Active 122245582 Problem PVD (peripheral vascular disease) I73.9 Active 168529929 Problem Pain R52 Active 48052794 Problem Other chronic osteomyelitis of left foot M86.672 Active 216139317 Problem Nicotine dependence, unspecified, uncomplicated F17.200 Active 828804399 Problem Peripheral vascular disease due to secondary diabetes E13.51 Active 2063505 Problem Nonintractable epilepsy without status epilepticus, unspecified epilepsy type G40.909 Active 396068627 Problem Recurrent major depressive disorder, remission status unspecified F33.9 Active 37517685 Problem Anxiety F41.9 Active 25012940 Problem Generalized anxiety disorder F41.1 Active 83590671 Problem Vascular dementia F01.50 Active 928833928 Problem Pseudobulbar affect F48.2 Active 16395010 Problem Coronary artery disease involving kashia coronary artery of kashia heart without angina pectoris I25.10 Active 9648188464342 Problem Gastroesophageal reflux disease without esophagitis K21.9 Active 749401166 Problem Cerebrovascular accident (CVA) due to other mechanism I63.8 Active 931774140 Problem Pulmonary emphysema, unspecified emphysema type J43.9 Active 59988977 Problem Neuropathy G62.9 Active 304806764 Problem Depression F32.9 Active 34011831 Problem Essential hypertension I10 Active 23584198 Problem Acquired hypothyroidism E03.9 Active 281043802 ALLERGIES No Information ENCOUNTERS Encounter Location Date Diagnosis [facility] [address] [place] [id number] Jul, [facility] [address] [address] Jul, Generalized anxiety disorder F41.1 [facility] [id number] [id number] Jun, Generalized anxiety disorder F41.1 [facility] [id number] [place] [id number] Jun, [facility] [id number] [place] [address] [id number] May, [facility] [address], [place] [address] 4076 May, [facility] [id number] [place] [address] [id number] May, Generalized anxiety disorder F41.1 [facility] [address] [address] Apr, [facility] [address] [place] [id number] Apr, Other chronic osteomyelitis of left foot M86.672 ; Type 2 diabetes mellitus with complication E11.8 ; Vascular dementia F01.50 ; Long-term insulin use Z79.4 ; PVD (peripheral vascular disease) I73.9 and Nicotine abuse 305.1 [facility] [address], [place] [address] 7[address] Apr, [facility] [id number] [id number] Apr, [facility] [address], [place] [address] 0710 Apr, Pain R52 and Generalized anxiety disorder F41.1 [facility] [address] [address]85 Mar, [facility] [id number] [place] [address] 80077- 0386 Mar, Pain R52 and Generalized anxiety disorder F41.1 [facility] [address] [place] [id number] Feb, Depression F32.9 ; Type 2 diabetes mellitus with complication E11.8 and Nicotine dependence, unspecified, uncomplicated F17.200 [facility] [id number] [place] [address] 62100- 8330 Feb, Generalized anxiety disorder F41.1 and Pain R52 [facility] [id number] [place] [address] 10682- 2971 Feb, [facility] [address] [address]- 3[address] Jan, [facility] [id number] [place] [address] 69944- 6486 Jan, Generalized anxiety disorder F41.1 and Pain R52 [facility] [id number] [place] [address] 59169- 1152 Jan, [facility] [id number] [place] [address] [id number] Dec, Generalized anxiety disorder F41.1 and Pain R52 [facility] [address] [place] [id number] Dec, Vascular dementia F01.50 ; Pain of left leg M79.605 ; Pain in right leg M79.604 and Type 2 diabetes mellitus with complication E11.8 [facility] [id number] [place] [address] 84801- 7585 Dec, Pain R52 [facility] [id number] [place] [address] 35875- 9883 Dec, [facility] [id number] [place] [address] 93164- 7836 Nov, [facility] [id number] [place] [address] 25463- 5408 Nov, Pain R52 and Generalized anxiety disorder F41.1 [facility] [address] [place] [id number] Nov, Depression F32.9 ; Vascular dementia with behavior disturbance F01.51 and Anxiety F41.9 [facility] [id number] [place] [address] 99382- 5946 Nov, Pain R52 and Generalized anxiety disorder F41.1 [facility] [id number] [place] [address] 20844- 9795 Oct, Generalized anxiety disorder F41.1 [facility] [id number] [place] [address] 21219- 6716 Oct, Pain R52 [facility] [id number] [place] [address] 11716- 3310 Sep, [facility] [address] [place] [id number] Sep, Generalized anxiety disorder F41.1 [facility] [id number] [place] [address] 49381- 3136 Sep, Pain R52 [facility] [id number] [place] [address] 38906- 1509 Sep, Generalized anxiety disorder F41.1 [facility] [address], [place] [address] 0676 August, [facility] [address], [place] [address] 7199 August, [facility] [id number] [place] [address] 40053- 4937 August, Pain R52 [facility] [id number] [place] [address] 21398- 9676 August, Generalized anxiety disorder F41.1 [facility] [id number] [place] [address] [id number] August, Generalized anxiety disorder F41.1 [facility] [id number] [place] [address] 95793- 1367 Jul, Pain R52 [facility] [id number] [place] [address] 39816- 2908 Jul, [facility] [address] [id number] Jul, [facility] [id number] [place] [address] 26799- 1612 Jun, [facility] [address] [id number] Jun, Depression F32.9 [facility] [id number] [place] [address] 08666- 1335 Jun, Pain R52 [facility] [id number] [place] [address] 43667- 1490 Jun, [facility] [address] [address] Jun, Vascular dementia F01.50 and Depression F32.9 [facility] [id number] [place] [address] 51004- 8016 May, Pain R52 [facility] [id number] [place] [address] 01836- 8182 May, [facility] [id number] [place] [address] 09471- 5069 May, Pseudobulbar affect F48.2 [facility] [id number] [place] [address] 29185- 8872 May, [facility] [id number] [place] [address] 25561- 3006 May, PVD (peripheral vascular disease) I73.9 [facility] [id number] [place] [address] 02501- 5049 May, Vascular dementia with behavior disturbance F01.51 [facility] [id number] [place] [address] 51746- 3058 May, Vascular dementia with behavior disturbance F01.51 [facility] [id number] [place] [address] 29870- 5096 Apr, [facility] [id number] [place] [address] 88396- 5110 Apr, Pain R52 [facility] [address] [place] [id number] Apr, Generalized anxiety disorder F41.1 ; PVD (peripheral vascular disease) I73.9 and Type 2 diabetes mellitus with complication E11.8 [facility] [id number] [place] [address] 23853- 9286 Apr, Vascular dementia with behavior disturbance F01.51 [facility] [id number] [place] [address] 30301- 8410 Apr, [facility] [id number] [place] [address] 94775- 1866 Apr, Vascular dementia with behavior disturbance F01.51 [facility] [id number] [place] [address] 51305- 0029 Apr, [facility] [address] [id number] Mar, [facility] [id number] [place] [address] 39682- 9989 Mar, Type 2 diabetes mellitus with complication E11.8 ; Vascular dementia with behavior disturbance F01.51 and Depression F32.9 [facility] [id number] [place] [address] 41679- 1886 Mar, [facility] [id number] [place] [address] 04135- 0289 Feb, [facility] [id number] [place] [address] 26713- 4960 Feb, Viral illness B34.9 [facility] [id number] [place] [address] 03908- 3100 Jan, Diabetes [address] [facility] [id number] [address] 2546 Jan, [facility] [address] [facility] [id number] [address]- 5096 Jan, [facility] [address] [facility] [id number] [address] 2546 Jan, [facility] [address] [place] [id number] Jan, Vascular dementia with behavior disturbance F01.51 and Type 2 diabetes mellitus with complication E11.8 [facility] [address] [facility] [id number] [place] [address]- 0116 Jan, Pain R52 [facility] [address] [facility] [id number] [address]- 2016 Jan, Pain R52 [facility] [address] [address]- 6376 Dec, [facility] [address] [facility] [id number] [address]- 9542 Nov, [facility] [address] [place] [id number] Nov, Type 2 diabetes mellitus with complication E11.8 [facility] [address] [facility] [id number] [address]- 8106 Nov, [facility] [address] [facility] [id number] [address]- 7631 Oct, [facility] [address] [facility] [id number] [address]- 8010 Oct, [facility] [address] [facility] [id number] [address]- 0090 Oct, Vascular dementia with behavior disturbance F01.51 and Type 2 diabetes mellitus with complication E11.8 [facility] [address] [facility] [id number] [address]- 8794 August, Type 2 diabetes mellitus with complication E11.8 and Vascular dementia with behavior disturbance F01.51 [facility] [address] [address]- 4095 August, Vascular dementia F01.50 [facility] [id number] [place] [address] 92882- 3771 August, Vascular dementia with behavior disturbance F01.51 [facility] [address], [place] [address]- 7477 Jul, Vascular dementia with behavior disturbance F01.51 [facility] [address], [place] [address]- 9806 Jun, Vascular dementia F01.50 [id number] [place] [address] 02386- 6956 Jun, Type 2 diabetes mellitus with complication E11.8 ; Long- term insulin use Z79.4 and Vascular dementia with behavior disturbance F01.51 [place] [id number] [place] [address] 00805- 1433 Jun, Vascular dementia with behavior disturbance F01.51 [facility] [address] [address]- 1463 Jun, Vascular dementia F01.50 [facility] [address], [place] [address]- 9696 Apr, [place] [address], [place] [address]- 3491 Apr, [address], [place] [address]- 9700 Apr, [place] [address], [place] [address]- 0104 Apr, Type 2 diabetes mellitus with complication E11.8 ; Depression F32.9 and Long-term insulin use Z79.4 [facility] [id number] [address]- 0735 Mar, [facility] [address] [place] [id number] Mar, Depression F32.9 ; Type 2 diabetes mellitus with complication E11.8 and Long-term insulin use Z79.4 [facility] [address] [place] [address] 13070- 8676 Feb, [facility] [id number] [place] [address] 60543- 0836 Feb, Hyperthyroidism E05.90 [facility] [id number] [place] [address] 44998- 7126 Feb, Hyperthyroidism E05.90 [facility] [id number] [place] [address] 08265- 8676 Feb, [facility] [id number] [place] [address] 49158- 9740 Jan, [facility] [id number] [place] [address] 27834- 3875 Dec, Nicotine addiction 305.1 [facility] [id number] [place] [address] 12552- 1972 Oct, Nicotine abuse 305.1 [facility] [id number] [place] [address] 00718- 6188 Oct, [facility] [address] [place] [address] 58293- 3608 August, [facility] [address] [place] [id number] August, History of drug abuse 305.93 and Diabetes 250.00 [facility] [address], [place] [address]- 3545 Jul, [facility] [id number] [place] [address] 52925- 4784 Jul, [facility] [id number] [place] [address] 91912- 1676 Jun, [facility] [id number] [place] [address] 45915- 9526 Jun, [facility] [address] [id number] [place] [address]- 6829 Jun, [facility] [place] [facility] [address] [id number] [place] [address]- 6949 Jun, [facility] [place] [facility] [address] [id number] [place] [address]- 7685 Jun, [facility] [place] [facility] [address] [id number] [place] [address]- 0134 Jun, [facility] [address] [id number] [place] [address]- 3909 May, [facility] [place] [facility] [address] [id number] [place] [address]- 5710 May, [facility] [address] [facility] [id number] [place] [address]- 0708 May, [facility] [address] [id number] [place] [address]- 9118 May, [facility] [address] [id number] [place] [address]- 0935 May, [facility] [place] [facility] [address] [facility] [id number] [address]- 2535 Apr, [facility] [address] [facility] [id number] [address]- 0974 Apr, [address] [place] [id number] Apr, [facility] [place] [facility] [address] [id number], [place] [address]- 8041 Apr, [facility] [place] [facility] [address] [id number] [address]- 5793 Apr, [facility] [place] [facility] [address] [facility] [id number], [place] [address]- 4215 Apr, [facility] [place] [facility] [address] [facility] [id number] [address]- 9653 Apr, [facility] [address] [id number] [place] [address]- 0654 Apr, [facility] [address] [id number] [place] [address]- 3652 Mar, [facility] [address] [id number] [place] [address]- 3620 Mar, [facility] [address] [id number] [place] [address]- 6927 Mar, [facility] [address] [id number] [place] [address]- 4055 Mar, [facility] [address] [id number] [place] [address]- 6424 Mar, [facility] [address] [id number] [address]- 6103 Mar, [facility] [address] [id number] [place] [address]- 4201 Mar, [facility] [address] [id number] [place] [address]- 4132 Mar, [facility] [address] [facility] [id number] [address]- 4873 Feb, [facility] [address] [id number] [address]- 3290 Feb, [facility] [address] [id number] [address]- 8497 Feb, [facility] [address] [id number] [address]- 1418 Feb, [facility] [address] [facility] [id number] [address]- 4538 Feb, [place] [place] [place] [id number] Feb, [facility] [address] [id number] [place] [address]- 7035 04 Feb, 2014 [facility] [place] [facility] [address] [id number] [place] [address]- 3194 Feb, [facility] [place] [facility] [address] [id number] [place] [address]- 3729 Feb, [facility] [place] [facility] [address] [id number] [place] 5439 Feb, [facility] [place] [facility] [address] [id number] [place] [address]- 8050 Jan, [facility] [place] [facility] [address] [id number] [place] [address]- 7171 30 Jan, 2014 [facility] [place] [facility] [address] [id number] [place] [address]- 9973 Jan, [facility] [place] [facility] [address] [id number] [place] [address]- 7904 17 Jan, 2014 [facility] [place] [facility] [address] [id number] [place] [address]- 6076 16 Jan, 2014 [facility] [place] [facility] [address] [id number] [place] [address]- 6390 16 Jan, 2014 [facility] [place] [facility] [address] [id number] [place] [address]- 7028 15 Jan, 2014 [facility] [place] [facility] [address] [id number] [place] [address]- 5581 13 Jan, 2014 [facility] [place] [facility] [address] [id number] [place] [address]- 7130 13 Jan, 2014 [facility] [place] [facility] [address] [id number] [place] [address]- 1743 Jan, [facility] [place] [facility] [address] [id number] [place] [address]- 3173 Jan, [facility] [place] [facility] [address] [id number] [place] [address]- 6821 09 Jan, 2014 [facility] [place] [facility] [address] [id number] [place] [address] Jan, 2013 [facility] [place] [facility] [address] [id number] [place] [address] Jan, 2013 [facility] [place] [facility] [address] [id number] [place] [address] Jan, 2013 [facility] [place] [facility] [address] [id number] [place] [address] Jan, 2013 [facility] [place] [facility] [address] [id number] [place] [address] Jan, 2013 [facility] [place] [facility] [address] [id number] [place] [address] Dec, 2013 [facility] [place] [facility] [address] [id number] [place] [address] Sep, 2013 [facility] [place] [facility] [address] [id number] [place] [address] Dec, 2013 [facility] [place] [facility] [address] [id number] [place] [address] 11 Dec, 2013 [facility] [place] [facility] [address] [id number] [place] [address] Sep, 2013 [facility] [place] [facility] [address] [id number] [place] [address] Sep, 2013 [facility] [place] [facility] [address] [id number] [address] 08 Sep, 2013 [facility] [place] [facility] [address] [id number] [place] [address] 08 Sep, 2013 [facility] [place] [facility] [address] [id number] [place] [address] 08 Sep, 2013 [facility] [place] [facility] [address] [id number] [place] [address] 08 Sep, 2013 [facility] [place] [facility] [address] [id number] [place] [address] Dec, [facility] [place] [facility] [address] [id number] [place] [address] Dec, [facility] [place] [facility] [address] [id number] [place] [address] Dec, [facility] [place] [facility] [address] [id number] [place] [address] Dec, [facility] [place] [facility] [address] [id number] [place] [address] Nov, [facility] [place] [facility] [address] [id number] [place] [address] Nov, [facility] [place] [facility] [address] [id number] [place] [address] Nov, [facility] [place] [facility] [address] [id number] [place] [address] Nov, [facility] [place] [facility] [address] [id number] [place] [address] Nov, [facility] [place] [facility] [address] [id number] [place] [address] Nov, [facility] [place] [facility] [address] [id number] [place] [address] Nov, [facility] [place] [facility] [address] [id number] [place] [address] Nov, [facility] [place] [facility] [address] [id number] [place] [address]68 Nov, [facility] [place] [facility] [address] [id number] [place] [address]150 Nov, [facility] [place] [facility] [address] [id number] [place] [address] 2496 Nov, [facility] [place] [facility] [address] [id number] [place] [address] 5257 Nov, [facility] [place] [facility] [address] [id number] [place] [address] 47[address] Nov, [facility] [place] [facility] [address] [id number] [place] [address] 4330 Nov, [facility] [place] [facility] [address] [id number] [place] [address] 3[address] Oct, [facility] [place] [facility] [address] [id number] [place] [address] 4056 Oct, [facility] [place] [facility] [address] [id number] [place] [address]- 0239 Oct, [facility] [place] [facility] [address] [id number] [place] [address] 3428 Oct, [facility] [place] [facility] [address] [id number] [place] [address]- 1187 Oct, [facility] [place] [facility] [address] [id number] [place] [address] 7693 Oct, [facility] [place] [facility] [address] [id number] [place] [address]- 1145 Oct, [facility] [place] [facility] [address] [id number] [place] [address] 0665 Oct, [facility] [place] [facility] [address] [id number] [place] [address] 3992 Oct, [facility] [place] [facility] [address] [id number] [place] [address]- 1729 Oct, [facility] [place] [facility] [address] [id number] [place] [address]- 6245 Oct, [facility] [place] [facility] [address] [id number] [place] [address]- 3556 Oct, [facility] [place] [facility] [address] [id number] [place] [address]- 1846 Oct, [facility] [place] [facility] [address] [id number] [place] [address]- 9181 Oct, [facility] [place] [facility] [address] [id number] [place] [address]- 8171 Oct, [facility] [place] [facility] [address] [id number] [place] [address]- 8524 Oct, [facility] [place] [facility] [address] [id number] [place] [address]- 8879 Oct, [facility] [place] [facility] [address] [id number] [place] [address]- 3648 Oct, [facility] [place] [facility] [address] [id number] [place] [address]- 5019 Oct, [facility] [place] [facility] [address] [id number] [place] [address]- 4790 Oct, [facility] [place] [facility] [address] [id number] [place] [address]- 5731 Sep, [facility] [place] [facility] [address] [id number] [place] [address]- 8254 Sep, [facility] [place] [facility] [address] [id number] [place] [address]- 1036 Sep, [facility] [place] [facility] [address] [id number] [place] [address]- 9116 Sep, [facility] [place] [facility] [address] [id number] [place] [address]- 0283 Sep, [facility] [place] [facility] [address] [id number] [place] [address]- 6651 Sep, [facility] [place] [facility] [address] [id number] [place] [address]- 0897 August, [facility] [place] [facility] [address] [id number] [place] [address]- 5398 August, [facility] [place] [facility] [address] [id number] [place] [address]- 3499 Jul, [facility] [place] [facility] [address] [id number] [place] [address]- 5877 30 Jul, 2013 [facility] [place] [facility] [address] [id number] [place] [address]- 7574 Jul, [facility] [place] [facility] [address] [id number] [place] [address]- 3166 Jul, [facility] [place] [facility] [address] [id number] [place] [address]- 9483 Jul, [facility] [place] [facility] [address] [id number] [place] [address]- 3444 Jul, [facility] [place] [facility] [address] [id number] [place] Jul, [facility] [place] [facility] [address] [id number] [place] [address]- 5674 Jul, [facility] [place] [facility] [address] [id number] [place] [address]- 5316 Jun, [facility] [place] [facility] [address] [id number] [place] [address]- 8809 Jun, [facility] [place] [facility] [address] [id number] [place] [address]- 7190 Jun, [facility] [place] [facility] [address] [id number] [place] [address]- 3918 Jun, [facility] [place] [facility] [address] [id number] [place] [address]- 8051 Jun, [facility] [place] [facility] [address] [id number] [place] [address]- 7784 May, [facility] [place] [facility] [address] [id number] [place] [address]- 6900 May, [facility] [place] [facility] [address] [id number] [place] [address]- 8861 May, [facility] [place] [facility] [address] [id number] [place] [address]- 2834 May, [facility] [place] [facility] [address] [id number] [place] [address]- 3726 May, [facility] [place] [facility] [address] [id number] [place] [address]- 9036 May, [facility] [place] [facility] [address] [id number] [place] [address]- 8666 May, [facility] [place] [facility] [address] [id number] [place] [address]- 6151 May, [facility] [place] [facility] [address] [id number] [place] [address]- 8984 May, [facility] [place] [facility] [address] [id number] [place] [address]- 5536 May, [facility] [place] [facility] [address] [facility] [id number] [place] [address]- 3373 May, [facility] [place] [facility] [address] [id number] [place] [address]- 9958 Apr, [facility] [place] [facility] [address] [id number] [place] [address]- 7421 Apr, [facility] [place] [facility] [address] [facility] [id number] [place] [address]- 3274 Mar, [facility] [place] [facility] [address] [id number] [address]- 9048 Mar, [facility] [place] [facility] [address] [id number], [place] [address]- 2547 Mar, [facility] [place] [facility] [address] [id number] [place] [address]- 3786 Mar, [facility] [place] [facility] [address] [id number] [place] [address]- 0796 Mar, [facility] [place] [facility] [address] [facility] [id number] [place] [address]- 1248 Jan, [facility] [place] [facility] [address] [id number] [place] [address]- 7057 Jan, [facility] [place] [facility] [address] [id number] [place] [address]- 9585 Jan, [facility] [place] [facility] [address] [id number] [place] [address]- 4442 Jan, [facility] [place] [facility] [address] [id number] [place] [address]- 3331 Jan, [facility] [place] [facility] [address] [id number] [place] [address]- 2816 Jan, [facility] [place] [facility] [address] [id number] [place] [address] Jan, [facility] [place] [facility] [address] [id number] [place] [address]- 4877 Jan, [facility] [place] [facility] [address] [id number] [place] [address]- 4424 Jan, [facility] [place] [facility] [address] [id number] [place] [address]- 3179 Jan, [facility] [place] [facility] [address] [id number] [place] [address]- 1352 Dec, [facility] [place] [facility] [address] [id number] [place] [address]- 4455 Oct, [facility] [place] [facility] [address] [id number] [place] [address]- 6513 Oct, [facility] [place] [facility] [address] [id number] [place] [address]- 7412 Oct, [facility] [place] [facility] [address] [id number] [place] [address]- 5860 Oct, [facility] [place] [facility] [address] [id number] [place] [address]- 0173 Oct, [facility] [place] [facility] [address] [id number] [place] [address]- 7532 Oct, [facility] [address] [id number] [place] [address]- 0634 Sep, [facility] [address] [id number] [place] [address]- 3096 August, [facility] [address] [id number] [place] [address]- 8126 August, [facility] [address] [id number] [place] [address]- 2886 August, [facility] [address] [id number] [place] [address]- 2902 August, [facility] [address] [id number] [place] [address]- 6656 August, [facility] [address] [id number] [place] [address]- 2546 May, [facility] [address] [id number] [place] [address]- 5276 Apr, [facility] [address] [id number] [place] [address]- 6857 Apr, [facility] [address] [id number] [place] [address]- 7916 Apr, [facility] [address] [id number] [place] [address]- 2546 Apr, [facility] [address] [id number] [place] [address]- 2546 Apr, [facility] [place] [id number] Mar, [facility] [address] [id number] [place] [address]- 2546 Mar, [facility] [address] [id number] [place] [address]- 2546 Mar, [facility] [address] [id number] [place] [address]- 3350 Mar, [facility] [place] [facility] [address] [id number] [place] [address]- 8847 17 Mar, 2012 [facility] [place] [facility] [address] [id number] [place] [address]- 3006 17 Mar, 2012 [facility] [place] [facility] [address] [id number] [place] [address]- 6038 13 Mar, 2012 [facility] [place] [facility] [address] [id number] [place] [address]- 3322 13 Mar, 2012 [facility] [place] [facility] [address] [id number] [place] [address]- 8281 13 Mar, 2012 [facility] [place] [facility] [address] [id number] [place] [address]- 6948 13 Mar, 2012 [facility] [place] [facility] [address] [id number] [place] [address]- 7739 12 Mar, 2012 [facility] [place] [facility] [address] [id number] [place] [address]- 6838 12 Mar, 2012 [facility] [place] [facility] [address] [id number] [place] [address]- 5506 10 Mar, 2012 [facility] [place] [facility] [address] [id number] [place] [address]- 4102 10 Mar, 2012 [facility] [place] [facility] [address] [id number] [place] [address]- 1318 07 Mar, 2012 [facility] [place] [facility] [address] [id number] [address]- 2718 07 Mar, 2012 [facility] [place] [facility] [address] [id number] [place] [address]- 2052 Mar, [facility] [place] [facility] [address] [id number] [place] [address]- 7103 06 Mar, 2012 [facility] [place] [facility] [address] [id number] [place] [address]- 6906 05 Mar, 2012 [facility] [place] [facility] [address] [id number] [place] [address]- 3150 Mar, [facility] [place] [facility] [address] [id number] [place] [address]- 8382 Feb, [facility] [place] [facility] [address] [id number] [place] [address]- 1079 Feb, [facility] [place] [facility] [address] [facility] [id number] [place] [address]- 7184 Feb, [facility] [place] [facility] [address] [id number] [place] [address]- 2144 Feb, [facility] [place] [facility] [address] [id number] [place] [address]- 8188 Jan, [facility] [place] [facility] [address] [id number] [place] [address]- 1911 Jan, [facility] [place] [facility] [address] [facility] [id number] [place] [address]- 3823 Jan, [facility] [place] [facility] [address] [id number] [place] [address]- 5490 Jan, [facility] [place] [facility] [address] [id number] [place] [address]- 4450 Jan, [facility] [place] [facility] [address] [facility] [id number] [place] [address]- 6648 Jan, [facility] [place] [facility] [address] [facility] [id number] [place] [address]- 9168 Jan, [facility] [place] [facility] [address] [facility] [id number] [address]- 8889 Jan, [facility] [place] [facility] [address] [id number] [place] [address]- 8188 10 Jan, 2012 [facility] [place] [facility] [address] [facility] [id number] [place] [address]- 9855 27 Dec, 2011 [facility] [place] [facility] [address] [facility] [id number] [place] [address]- 4692 14 Dec, 2011 [facility] [place] [facility] [address] [id number] [place] [address]- 2405 12 Dec, 2011 [facility] [place] [facility] [address] [id number] [place] [address]- 5316 Dec, [facility] [place] [facility] [address] [id number] [place] [address]- 2586 Dec, [facility] [place] [facility] [address] [id number] [place] [address]- 4457 Nov, [facility] [place] [facility] [address] [id number] [place] [address]- 4131 Nov, [facility] [place] [facility] [address] [id number] [place] [address]- 0778 Nov, [facility] [place] [facility] [address] [id number] [place] [address]- 8035 Nov, [facility] [place] [facility] [address] [id number] [place] [address]- 5632 Nov, [facility] [place] [facility] [address] [id number] [place] [address]- 1886 Nov, [facility] [place] [facility] [address] [id number] [place] [address]- 6065 Nov, [facility] [place] [facility] [address] [id number] [place] [address]- 6210 Nov, [facility] [place] [facility] [address] [id number] [place] [address]- 4814 Nov, [facility] [place] [facility] [address] [id number] [place] [address]- 4817 Oct, [facility] [place] [facility] [address] [id number] [place] [address]- 2241 Oct, [facility] [place] [facility] [address] [id number] [place] [address]- 0086 Sep, [facility] [place] [facility] [address] [id number] [place] [address]- 0418 13 Sep, 2011 [facility] [place] [facility] [address] [id number] [place] [address]- 2989 05 Sep, 2011 [facility] [place] [facility] [address] [id number] [place] [address]- 1122 14 Aug, 2011 [facility] [place] [facility] [address] [id number] [place] [address]- 6927 30 Jul, 2011 [facility] [place] [facility] [address] [id number] [place] [address]- 8292 27 Jul, 2011 [facility] [place] [facility] [address] [id number] [place] [address]- 8335 27 Jul, 2011 [facility] [place] [facility] [address] [id number] [place] [address]- 6840 18 Jul, 2011 [facility] [place] [facility] [address] [id number] [place] [address]- 6216 16 Jul, 2011 [facility] [place] [facility] [address] [id number] [place] [address]- 1964 16 Jul, 2011 [facility] [place] [facility] [address] [id number] [place] [address]- 1511 16 Jul, 2011 [facility] [place] [facility] [address] [id number] [place] [address]- 4109 14 Jul, 2011 [facility] [place] [facility] [address] [id number] [place] [address]- 3716 12 Jul, 2011 [facility] [place] [facility] [address] [id number], [place] [address]- 7194 19 Jun, 2011 [facility] [place] [facility] [address] [id number] [place] [address]- 0342 18 Jun, 2011 [facility] [place] [facility] [address] [id number] [place] [address]- 0361 15 Jun, 2011 [facility] [place] [facility] [address] [id number] [place] [address]- 1498 12 Jun, 2011 [facility] [place] [facility] [address] [id number] [place] [address]- 6948 08 Jun, 2011 [facility] [place] [facility] [address] [id number] [place] [address]- 6476 Jun, [facility] [place] [facility] [address] [id number] [place] [address] 2546 Jun, [facility] [place] [facility] [address] [id number] [place] [address]- 7196 Jun, [facility] [place] [facility] [address] [id number] [place] [address]- 2733 May, [facility] [place] [facility] [address] [id number] [place] [address]- 9806 May, [facility] [place] [facility] [address] [id number] [place] [address]- 8706 May, [facility] [address] [id number] [place] [address]- 2381 Apr, [facility] [address] [id number] [place] [address]- 2422 Apr, [facility] [place] [facility] [address] [id number] [place] [address]- 9743 Apr, [facility] [address] [id number] [place] [address]- 8638 Mar, [facility] [address] [id number] [place] [address] 2546 Mar, [facility] [address] [id number] [place] [address]- 2546 15 Mar, 2011 [facility] [place] [facility] [address] [id number] [place] [address]- 7696 13 Mar, 2011 [facility] [place] [facility] [address] [id number] [place] [address]- 2546 13 Mar, 2011 [facility] [place] [facility] [address] [id number] [place] 7469 Mar, [facility] [place] [facility] [address] [id number] [place] [address]- 1498 Mar, [facility] [place] [facility] [address] [id number] [place] [address]- 7473 Mar, [facility] [place] [facility] [address] [id number] [place]47 Mar, [facility] [place] [facility] [address] [id number] [place] [address]- 3839 Mar, [facility] [place] [facility] [address] [id number] [place] 6799 Mar, [facility] [place] [facility] [address] [id number] [place] [address]- 7841 Mar, [facility] [place] [facility] [address] [id number] [place] [address]- 7049 Mar, [facility] [place] [facility] [address] [id number] [place] [address]- 8336 Mar, [facility] [place] [facility] [address] [id number] [place] [address]- 9146 Feb, [facility] [place] [facility] [address] [id number] [place] [address]- 5384 Feb, [facility] [place] [facility] [address] [id number] [place] [address]- 3418 Feb, [facility] [place] [facility] [address] [id number], [place] [address]- 6460 Jan, [facility] [place] [facility] [address] [id number] [place] [address]- 4461 Jan, [facility] [place] [facility] [address] [id number] [place] [address]- 5120 Oct, [facility] [place] [facility] [address] [id number] [place] [address]- 5930 Sep, [facility] [place] [facility] [address] [id number], [place] [address]- 0915 Mar, [facility] [address] [facility] [id number] 4090 Mar, [facility] [address] [id number], [place] [address]- 8509 Feb, [facility] [id number], [place] [address]- 2048 Feb, [facility] [address] [id number], [place] [address]- 0282 Jan, [facility] [id number] [place] [id number] Jan, [facility] [id number] [address] Mar, [facility] [id number] [address] Feb, [facility] [id number] [address] Feb, [facility] [id number] [address] Feb, [facility] [id number] [address] Feb, [facility] [id number] [address] Jan, [facility] [id number] [address] Dec, [facility] [id number] [address] Nov, IMMUNIZATIONS No Known Immunizations SOCIAL HISTORY Never Assessed REASON FOR VISIT Refill request PLAN OF CARE VITAL SIGNS MEDICATIONS Unknown Medications RESULTS No Results PROCEDURES No Known procedures INSTRUCTIONS MEDICATIONS ADMINISTERED No Known Medications MEDICAL (GENERAL) HISTORY Type Description Date Hospitalization History [facility] March 2015
--- OUTSIDE RECORDS SUMMARY | 2017-10-27 10:37 | XMS REPORT ---
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 Name Role Phone STEPHANIE CHRISTIANSEN Unavailable PROBLEMS Type Condition ICD9-CM Code [id number] Code Onset Dates Condition Status SNOMED Code Problem Hyperlipidemia, unspecified hyperlipidemia type E78.5 Active 25986526 Problem Long-term insulin use Z79.4 Active 308338494 Problem Abnormal carotid ultrasound R93.8 Active 225529852 Problem Type 2 diabetes mellitus with complication E11.8 Active 64768636 Problem Positive TB test R76.11 Active 179843683 Problem Vascular dementia with behavior disturbance F01.51 Active 701767189 Problem PVD (peripheral vascular disease) I73.9 Active 294559786 Problem Pain R52 Active 69089751 Problem Other chronic osteomyelitis of left foot M86.672 Active 402203822 Problem Nicotine dependence, unspecified, uncomplicated F17.200 Active 033777304 Problem Peripheral vascular disease due to secondary diabetes E13.51 Active 6087859 Problem Nonintractable epilepsy without status epilepticus, unspecified epilepsy type G40.909 Active 447389751 Problem Recurrent major depressive disorder, remission status unspecified F33.9 Active 97783537 Problem Anxiety F41.9 Active 81301484 Problem Generalized anxiety disorder F41.1 Active 70358409 Problem Vascular dementia F01.50 Active 192079082 Problem Pseudobulbar affect F48.2 Active 42218861 Problem Coronary artery 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 Active 1239363903443 Problem Gastroesophageal reflux disease without esophagitis K21.9 Active 480321491 Problem Cerebrovascular accident (CVA) due to other mechanism I63.8 Active 497195401 Problem Pulmonary emphysema, unspecified emphysema type J43.9 Active 87161241 Problem Neuropathy G62.9 Active 143407572 Problem Depression F32.9 Active 01147805 Problem Essential hypertension I10 Active 08854001 Problem Acquired hypothyroidism E03.9 Active 653768381 ALLERGIES No Information ENCOUNTERS Encounter Location Date Diagnosis [facility] [place] [id number] [place] [address] [id number] Jun, Generalized anxiety disorder F41.1 [facility] [place] [id number] [place] [address] [id number] Jun, [facility] [place] [address] [id number] May, [facility] [id number] [place] [address] 76853- 8860 May, [facility] [place] [address] [id number] May, Generalized anxiety disorder F41.1 [place] [id number] [place] [address] [id number]- 5752 Apr, [facility] [address] [place] [id number] Apr, Other chronic osteomyelitis of left foot M86.672 ; Type 2 diabetes mellitus with complication E11.8 ; Vascular dementia F01.50 ; Long-term insulin use Z79.4 ; PVD (peripheral vascular disease) I73.9 and Nicotine abuse 305.1 [facility] [address] [address] 5385 Apr, [facility] [place] [id number] [place] [address] [id number] Apr, [facility] [id number] [place] [address] 02384- 0657 Apr, Pain R52 and Generalized anxiety disorder F41.1 [facility] [id number] [place] [address] [id number]- 8133 Mar, [place] [id number] [place] [address] [id number]- 4106 Mar, Pain R52 and Generalized anxiety disorder F41.1 [facility] [address] [place] [id number] Feb, Depression F32.9 ; Type 2 diabetes mellitus with complication E11.8 and Nicotine dependence, unspecified, uncomplicated F17.200 [facility] [id number] [place] [address] 77477- 8352 Feb, Generalized anxiety disorder F41.1 and Pain R52 [facility] [id number] [place] [address] 79630- 2857 Feb, [facility] [address] 39851- 6457 Jan, [facility] [id number] [place] [address] 96428- 2047 Jan, Generalized anxiety disorder F41.1 and Pain R52 [facility] [id number] [place] [address] 03602- 6805 Jan, [facility] [place] [address] [id number] Dec, Generalized anxiety disorder F41.1 and Pain R52 [facility] [address] [place] [id number] Dec, Vascular dementia F01.50 ; Pain of left leg M79.605 ; Pain in right leg M79.604 and Type 2 diabetes mellitus with complication E11.8 [facility] [id number] [place] [address] 77205- 1256 Dec, Pain R52 [facility] [id number] [place] [address] 38857- 8288 Dec, [facility] [id number] [place] [address] 28706- 8692 Nov, [facility] [address] 44559- 9124 Nov, Pain R52 and Generalized anxiety disorder F41.1 [facility] [address] [place] [id number] Nov, Depression F32.9 ; Vascular dementia with behavior disturbance F01.51 and Anxiety F41.9 [facility] [address], [place] [address]- 5324 Nov, Pain R52 and Generalized anxiety disorder F41.1 [facility] [id number] [place] [address] 23496- 5650 Oct, Generalized anxiety disorder F41.1 [facility] [address], [place] [address] 3421 Oct, Pain R52 [facility] [id number] [place] [address] 58075- 4304 Sep, [facility] [address] [facility] [id number] Sep, Generalized anxiety disorder F41.1 [facility] [id number] [place] [address] 54926- 3439 Sep, Pain R52 [facility] [id number] [place] [address] 67903- 5983 Sep, Generalized anxiety disorder F41.1 [facility] [address], [place] [address] 3141 August, [facility] [id number] [place] [address] 05684- 1353 August, [facility] [address], [place] [address] 3119 August, Pain R52 [facility] [address], [place] [address] 1652 August, Generalized anxiety disorder F41.1 [facility] [id number] [id number] August, Generalized anxiety disorder F41.1 [facility] [address], [place] [address]- 3858 Jul, Pain R52 [facility] [address], [place] [address]- 3812 Jul, [facility] [id number] [place] [address] [id number] Jul, [facility] [id number] [place] [address] 49853- 5811 Jun, [facility] [id number] [place] [address] [id number] Jun, Depression F32.9 [facility] [id number] [place] [address] 48659- 4525 Jun, Pain R52 [facility] [id number] [place] [address] 76885- 6015 Jun, [facility] [address] [place] [id number] Jun, Vascular dementia F01.50 and Depression F32.9 [facility] [id number] [place] [address] 60818- 9837 May, Pain R52 [facility] [id number] [place] [address] 26125- 3027 15 May, 2016 [facility] [id number] [place] [address] 79742- 3113 May, Pseudobulbar affect F48.2 [facility] [address] [place] [address] 25786- 3566 09 May, 2016 [facility] [address] [place] [address] 00517- 5970 May, PVD (peripheral vascular disease) I73.9 [facility] [address] [place] [address] 11353- 1956 08 May, 2016 Vascular dementia with behavior disturbance F01.51 [facility] [id number] [place] [address] 33281- 9268 May, Vascular dementia with behavior disturbance F01.51 [facility] [id number] [place] [address] 19746- 3013 Apr, [facility] [id number] [place] [address] 89745- 8952 Apr, Pain R52 [facility] [address] [place] [id number] Apr, Generalized anxiety disorder F41.1 ; PVD (peripheral vascular disease) I73.9 and Type 2 diabetes mellitus with complication E11.8 [facility] [id number] [place] [address] 16986- 0982 Apr, Vascular dementia with behavior disturbance F01.51 [facility] [address] 44109- 8600 Apr, [place] [address] 55295- 8324 Apr, Vascular dementia with behavior disturbance F01.51 [facility] [id number] [place] [address] 50684- 2094 Apr, [facility] [place] [address] [id number] Mar, [facility] [id number] [place] [address] 90501- 7922 Mar, Type 2 diabetes mellitus with complication E11.8 ; Vascular dementia with behavior disturbance F01.51 and Depression F32.9 [facility] [id number] [place] [address] 09921- 0943 Mar, [facility] [id number] [place] [address] 91427- 6286 Feb, [facility] [id number] [place] [address] 95897- 4526 Feb, Viral illness B34.9 [facility] [address] 94357- 0823 Jan, Diabetes 250.00 [facility] [id number] [place] [address] 48609- 4721 Jan, [facility] [id number] [place] [address] 77994- 4383 Jan, [facility] [address] [facility] [id number], [place] [address]- 1349 Jan, [facility] [address] [place] [id number] Jan, Vascular dementia with behavior disturbance F01.51 and Type 2 diabetes mellitus with complication E11.8 [facility] [address] [facility] [id number] [place] [address]- 0476 Jan, Pain R52 [facility] [address] [facility] [id number] [address] 2546 Jan, Pain R52 [facility] [address] [facility] [id number] [place] [address] 40831- 4016 Dec, [facility] [address] [facility] [id number], [place] [address]- 4337 Nov, [facility] [address] [place] [id number] Nov, Type 2 diabetes mellitus with complication E11.8 [facility] [address] [facility] [id number], [place] [address]- 6362 Nov, [facility] [id number], [place] [address]- 1279 Oct, [facility] [id number], [place] [address]- 5420 Oct, [facility] [address], [place] [address]- 9796 Oct, Vascular dementia with behavior disturbance F01.51 and Type 2 diabetes mellitus with complication E11.8 [facility] [address] [facility] [id number], [place] [address]- 2927 August, Type 2 diabetes mellitus with complication E11.8 and Vascular dementia with behavior disturbance F01.51 [facility] [address] [facility] [id number] [address]- 2702 August, Vascular dementia F01.50 [facility] [address] [facility] [id number], [place] [address]- 4475 August, Vascular dementia with behavior disturbance F01.51 [facility] [address], [place] [address]- 9259 Jul, Vascular dementia with behavior disturbance F01.51 [facility] [address], [place] [address]- 7828 Jun, Vascular dementia F01.50 [facility] [address], [place] [address]- 0218 Jun, Type 2 diabetes mellitus with complication E11.8 ; Long- term insulin use Z79.4 and Vascular dementia with behavior disturbance F01.51 [place] [address], [place] [address]- 7126 Jun, Vascular dementia with behavior disturbance F01.51 [place] [address], [place] [address]- 7712 Jun, Vascular dementia F01.50 [place] [address], [place] [address]- 3556 Apr, [place] [id number] [place] [address] 71017- 9408 Apr, [place] [address], [place] [address]- 0808 Apr, [place] [address], [place] [address]- 8535 Apr, Type 2 diabetes mellitus with complication E11.8 ; Depression F32.9 and Long-term insulin use Z79.4 [place] [id number], [place] [address]- 1590 Mar, [facility] [address] [place] [id number] Mar, Depression F32.9 ; Type 2 diabetes mellitus with complication E11.8 and Long-term insulin use Z79.4 [place] [id number], [place] [address]- 1841 Feb, [facility] [address], [place] [address]- 2059 Feb, Hyperthyroidism E05.90 [facility] [id number] [place] [address] 29678- 0606 Feb, Hyperthyroidism E05.90 [facility] [id number] [place] [address] 26149- 6185 Feb, [facility] [id number] [place] [address] 24177- 2537 Jan, [facility] [id number] [place] [address] 25390- 0710 Dec, Nicotine addiction 305.1 [facility] [id number] [place] [address] 80996- 9623 Oct, Nicotine abuse 305.1 [facility] [id number] [place] [address] 60798- 8950 Oct, [facility] [id number] [place] [address] 76163- 0896 August, [facility] [address] [place] [id number] August, History of drug abuse 305.93 and Diabetes 250.00 [facility] [address], [place] [address]- 2611 Jul, [facility] [id number] [place] [address] 03468- 5698 Jul, [facility] [id number] [place] [address] 37149- 4275 Jun, [facility] [id number] [place] [address] 73246- 6680 Jun, [facility] [address], [place] [address]- 8949 Jun, [facility] [id number] [place] [address] 72032- 0912 Jun, [facility] [address] [id number] [place] [address]- 5585 Jun, [facility] [place] [facility] [address] [id number] [place] [address]- 1638 Jun, [facility] [place] [facility] [address] [id number] [place] [address]- 1501 May, [facility] [place] [facility] [address] [id number] [place] [address]- 0611 May, [facility] [address] [id number] [place] [address]- 5814 May, [facility] [place] [facility] [address] [id number] [place] [address]- 7769 May, [facility] [address] [id number], [place] [address]- 0038 May, [facility] [address] [id number], [place] [address]- 5873 Apr, [facility] [address] [id number], [place] [address]- 3330 Apr, [facility] [address] [place] [id number] Apr, [facility] [address] [id number], [place] [address]- 1697 Apr, [facility] [place] [facility] [address] [id number], [place] [address]- 7426 Apr, [facility] [place] [facility] [address] [id number], [place] [address]- 2562 Apr, [facility] [place] [facility] [address] [id number], [place] [address]- 1281 Apr, [facility] [place] [facility] [address] [id number], [place] [address]- 2851 Apr, [facility] [place] [facility] [address] [id number] [place] [address]- 2343 Mar, [facility] [address] [id number] [place] [address]- 5683 Mar, [facility] [address] [id number] [place] [address]- 7534 Mar, [facility] [address] [id number] [place] [address]- 7642 Mar, [facility] [address] [id number] [place] [address]- 5584 Mar, [facility] [address] [id number] [place] [address]- 3514 Mar, [facility] [address] [id number] [place] [address]- 0610 Mar, [facility] [address] [id number] [place] [address]- 9731 Mar, [facility] [address] [id number] [place] [address]- 4484 Feb, [facility] [address] [id number] [place] [address]- 4419 Feb, [facility] [address] [id number] [place] [address]- 2664 Feb, [facility] [address] [id number] [place] [address]- 8016 Feb, [facility] [address] [id number], [place] [address]- 3786 Feb, [facility] [address] [place] [id number] Feb, [facility] [address] [id number] [place] [address]- 1695 Feb, [facility] [address] [id number], [place] [address]- 4362 Feb, [facility] [place] [facility] [address] [id number] [place] [address]- 7971 Feb, [facility] [place] [facility] [address] [id number] [place] 5176 Feb, [facility] [place] [facility] [address] [id number] [place]- 5874 30 Jan, 2014 [facility] [place] [facility] [address] [id number] [place] 7082 30 Jan, 2014 [facility] [place] [facility] [address] [id number] [place] [address]- 2779 Jan, [facility] [place] [facility] [address] [id number] [place] [address]- 1369 17 Jan, 2014 [facility] [place] [facility] [address] [id number] [place] [address]- 7955 16 Jan, 2014 [facility] [place] [facility] [address] [id number] [place] [address]- 5836 16 Jan, 2014 [facility] [place] [facility] [address] [id number] [place] [address]- 7615 15 Jan, 2014 [facility] [place] [facility] [address] [id number] [place] [address]- 3033 Jan, [facility] [place] [facility] [address] [id number] [place] [address]- 7226 Jan, [facility] [place] [facility] [address] [id number] [place] [address]- 2343 Jan, [facility] [place] [facility] [address] [id number] [place] [address]- 3241 Jan, [facility] [place] [facility] [address] [id number] [place] 9711 Jan, [facility] [place] [facility] [address] [id number] [place]- 5203 09 Jan, 2014 [facility] [place] [facility] [address] [id number] [place] [address]- 2996 08 Jan, 2013 [facility] [place] [facility] [address] [id number] [place] [address]- 0009 08 Jan, 2013 [facility] [place] [facility] [address] [id number] [place] [address]- 4369 07 Jan, 2013 [facility] [place] [facility] [address] [id number] [place] [address]- 6627 07 Jan, 2013 [facility] [place] [facility] [address] [id number] [place] [address]- 2407 19 Sep, 2013 [facility] [place] [facility] [address] [id number] [place] [address]- 4078 19 Sep, 2013 [facility] [place] [facility] [address] [id number] [place] [address]- 3726 11 Sep, 2013 [facility] [place] [facility] [address] [id number] [place] [address]- 1313 11 Sep, 2013 [facility] [place] [facility] [address] [id number], [place] [address]- 6510 09 Sep, 2013 [facility] [place] [facility] [address] [id number], [place] [address]- 2042 09 Sep, 2013 [facility] [place] [facility] [address] [id number], [place] [address]- 7305 08 Sep, 2013 [facility] [place] [facility] [address] [id number] [address] 08 Sep, 2013 [facility] [place] [facility] [address] [id number], [place] [address] 08 Sep, 2013 [facility] [place] [facility] [address] [id number], [place] [address] 08 Sep, 2013 [facility] [place] [facility] [address] [id number], [place] [address] 05 Sep, 2013 [facility] [place] [facility] [address] [id number], [place] [address] 05 Sep, 2013 [facility] [place] [facility] [address] [id number] [place] [address] Dec, [facility] [place] [facility] [address] [id number] [place] [address] Dec, [facility] [place] [facility] [address] [id number] [place] [address] Nov, [facility] [place] [facility] [address] [id number] [place] [address] Nov, [facility] [place] [facility] [address] [id number] [place] [address]- [address] Nov, [facility] [place] [facility] [address] [id number] [place] [address]- [address] Nov, [facility] [place] [facility] [address] [id number] [place] [address]- [address] Nov, [facility] [place] [facility] [address] [id number] [place] [address]- [address] Nov, [facility] [place] [facility] [address] [id number] [place] [address] Nov, [facility] [place] [facility] [address] [id number] [place] [address]- [address] Nov, [facility] [place] [facility] [address] [id number] [place] [address] Nov, [facility] [place] [facility] [address] [id number] [place] [address]- [address] Nov, [facility] [place] [facility] [address] [id number] [place] [address]- [address] Nov, [facility] [place] [facility] [address] [id number] [place] [address]- [address] Nov, [facility] [place] [facility] [address] [id number] [place] [address]- [address] Nov, [facility] [place] [facility] [address] [id number] [place] [address]- [address] Nov, [facility] [place] [facility] [address] [id number] [place] [address] Oct, [facility] [place] [facility] [address] [id number] [place] [address] Oct, [facility] [place] [facility] [address] [id number] [place] [address] 2569 Oct, [facility] [place] [facility] [address] [id number] [place] [address] 5538 Oct, [facility] [place] [facility] [address] [id number] [place] [address] 8225 Oct, [facility] [place] [facility] [address] [id number] [place] [address] 4897 Oct, [facility] [place] [facility] [address] [id number] [place] [address] 6997 Oct, [facility] [place] [facility] [address] [id number] [place] [address] 3008 Oct, [facility] [place] [facility] [address] [id number] [place] [address] 2647 Oct, [facility] [place] [facility] [address] [id number] [place] [address]- 6998 Oct, [facility] [place] [facility] [address] [id number] [place] [address] 7059 Oct, [facility] [place] [facility] [address] [id number] [place] [address]- 3841 Oct, [facility] [place] [facility] [address] [id number] [place] [address] 0032 Oct, [facility] [place] [facility] [address] [id number] [place] [address]- 5041 Oct, [facility] [place] [facility] [address] [id number] [place] [address]- 6543 Oct, [facility] [place] [facility] [address] [id number] [place] [address]- 2152 Oct, [facility] [place] [facility] [address] [id number] [place] [address]- 1508 Oct, [facility] [place] [facility] [address] [id number] [place] [address] Oct, [facility] [place] [facility] [address] [id number] [place] [address]- 9057 Oct, [facility] [place] [facility] [address] [id number] [place] [address]- 0550 Oct, [facility] [place] [facility] [address] [id number] [place] [address]- 8370 Sep, [facility] [place] [facility] [address] [id number] [place] [address]- 4461 Sep, [facility] [place] [facility] [address] [id number] [place] [address]- 1152 Sep, [facility] [place] [facility] [address] [id number] [place] [address]- 4470 Sep, [facility] [place] [facility] [address] [id number] [place] [address]- 7231 Sep, [facility] [place] [facility] [address] [id number] [place] [address]- 7397 Sep, [facility] [place] [facility] [address] [id number] [place] [address]- 9823 August, [facility] [place] [facility] [address] [id number] [place] [address]- 2903 August, [facility] [place] [facility] [address] [id number] [place] [address]- 3600 Jul, [facility] [place] [facility] [address] [id number] [place] [address]- 4000 Jul, [facility] [place] [facility] [address] [id number] [place] [address]- 6711 Jul, [facility] [place] [facility] [address] [id number] [place] [address]- 2959 17 Jul, 2013 [facility] [place] [facility] [address] [id number] [place] [address]- 6052 Jul, [facility] [place] [facility] [address] [id number] [place] [address]- 0195 Jul, [facility] [place] [facility] [address] [id number] [place] [address]- 8482 Jul, [facility] [place] [facility] [address] [id number] [place] [address]- 7049 Jul, [facility] [place] [facility] [address] [id number] [place] [address]- 5735 Jun, [facility] [place] [facility] [address] [id number] [place] [address]- 5914 Jun, [facility] [place] [facility] [address] [id number] [place] [address]- 3871 Jun, [facility] [place] [facility] [address] [id number] [place] [address]- 6635 Jun, [facility] [place] [facility] [address] [id number] [place] [address]- 9355 Jun, [facility] [place] [facility] [address] [id number] [place] [address]- 7808 May, [facility] [place] [facility] [address] [id number] [place] [address]- 3494 May, [facility] [place] [facility] [address] [id number] [place] [address]- 3123 May, [facility] [place] [facility] [address] [id number] [place] [address]- 4114 25 May, 2013 [facility] [place] [facility] [address] [id number] [place] [address]- 7641 20 May, 2013 [facility] [place] [facility] [address] [id number] [place] [address]- 1628 May, [facility] [place] [facility] [address] [id number] [place] [address]- 0944 May, [facility] [place] [facility] [address] [id number] [place] [address]- 2786 May, [facility] [place] [facility] [address] [facility] [id number] [place] [address]- 8156 May, [facility] [place] [facility] [address] [facility] [id number] [place] [address]- 0694 May, [facility] [place] [facility] [address] [facility] [id number] [place] [address]- 9520 May, [facility] [place] [facility] [address] [facility] [id number] [place] [address]- 1790 Apr, [facility] [address] [facility] [id number] [place] [address]- 4094 Apr, [facility] [place] [facility] [address] [facility] [id number] [place] [address]- 4501 Mar, [facility] [place] [facility] [address] [facility] [id number] [place] [address]- 2025 Mar, [facility] [place] [facility] [address] [facility] [id number] [place] [address]- 8380 Mar, [facility] [place] [facility] [address] [facility] [id number] [address]- 3542 Mar, [facility] [place] [facility] [address] [facility] [id number], [place] [address]- 0812 Mar, [facility] [place] [facility] [address] [facility] [id number], [place] [address]- 6459 Jan, [facility] [place] [facility] [address] [facility] [id number], [place] [address]- 7130 Jan, [facility] [place] [facility] [address] [facility] [id number], [place] [address]- 1320 Jan, [facility] [place] [facility] [address] [id number] [place] [address]- 5522 Jan, [facility] [place] [facility] [address] [id number] [place] [address]- 8749 Jan, [facility] [place] [facility] [address] [id number] [place] [address]- 0866 Jan, [facility] [place] [facility] [address] [id number] [place] [address]- 3244 Jan, [facility] [place] [facility] [address] [id number] [place] [address]- 7950 Jan, [facility] [place] [facility] [address] [id number] [place] [address]- 1690 Jan, [facility] [place] [facility] [address] [id number] [place] [address]- 5056 Jan, [facility] [place] [facility] [address] [id number] [place] [address]- 6998 Dec, [facility] [place] [facility] [address] [id number] [place] [address]- 2466 Oct, [facility] [place] [facility] [address] [id number] [place] [address]- 2634 Oct, [facility] [place] [facility] [address] [id number] [place] [address]- 1151 Oct, [facility] [place] [facility] [address] [id number] [place] [address]- 0781 Oct, [facility] [place] [facility] [address] [id number] [place] [address]- 1506 Oct, [facility] [place] [facility] [address] [id number] [place] [address]- 3528 Oct, [facility] [place] [facility] [address] [id number] [place] [address]- 6209 Sep, [facility] [place] [facility] [address] [id number] [place] [address]- 7526 August, [facility] [address] [id number] [place] [address]- 6474 August, [facility] [address] [id number] [place] [address]- 2746 August, [facility] [address] [id number] [place] [address]- 6046 August, [facility] [address] [id number] [place] [address]- 2700 August, [facility] [address] [id number] [place] [address]- 8346 May, [facility] [address] [id number] [place] [address]- 9836 Apr, [facility] [address] [id number] [place] [address]- 7696 Apr, [facility] [address] [id number] [place] [address]- 3950 Apr, [facility] [address] [id number] [place] [address]- 1162 Apr, [facility] [address] [facility] [id number] [place] [address]- 2366 Apr, [facility] [place] [id number] Mar, [facility] [address] [id number], [place] [address]- 5533 Mar, [facility] [address] [id number] [place] [address]- 0627 Mar, [facility] [address] [id number] [place] [address]- 6806 Mar, [facility] [address] [id number], [place] [address]- 2546 Mar, [facility] [address] [id number], [place] [address]- 9999 17 Mar, 2012 [facility] [place] [facility] [address] [id number] [place] [address]- 5986 13 Mar, 2012 [facility] [place] [facility] [address] [id number] [place] [address]- 7156 13 Mar, 2012 [facility] [place] [facility] [address] [id number] [place] [address]- 0876 13 Mar, 2012 [facility] [place] [facility] [address] [id number] [place] [address]- 2706 13 Mar, 2012 [facility] [place] [facility] [address] [id number] [place] [address]- 2634 12 Mar, 2012 [facility] [place] [facility] [address] [id number] [place] [address]- 1546 12 Mar, 2012 [facility] [place] [facility] [address] [id number] [place] [address]- 5414 Mar, [facility] [place] [facility] [address] [id number] [place] [address]- 3904 Mar, [facility] [place] [facility] [address] [id number] [place] [address]- 1616 Mar, [facility] [place] [facility] [address] [id number] [place] [address]- 8296 07 Mar, 2012 [facility] [place] [facility] [address] [id number] [place] [address]- 2643 06 Mar, 2012 [facility] [place] [facility] [address] [id number] [place] [address]- 0176 Mar, [facility] [place] [facility] [address] [id number] [place] [address]- 1126 05 Mar, 2012 [facility] [place] [facility] [address] [id number] [place] [address]- 3920 05 Mar, 2012 [facility] [place] [facility] [address] [id number] [place] [address]- 2195 Feb, [facility] [place] [facility] [address] [id number] [place] [address]- 9963 Feb, [facility] [place] [facility] [address] [id number] [place] [address]- 6951 Feb, [facility] [place] [facility] [address] [id number] [place] [address]- 6336 Feb, [facility] [place] [facility] [address] [id number] [place] [address]- 1539 Jan, [facility] [place] [facility] [address] [id number] [place] [address]- 9923 Jan, [facility] [place] [facility] [address] [id number] [place] [address]- 2370 Jan, [facility] [place] [facility] [address] [id number] [place] [address]- 3785 Jan, [facility] [place] [facility] [address] [id number] [place] [address]- 2991 Jan, [facility] [place] [facility] [address] [id number] [place] [address]- 8711 Jan, [facility] [place] [facility] [address] [id number] [place] [address]- 3491 Jan, [facility] [place] [facility] [address] [id number] [place] [address]- 0512 Jan, [facility] [place] [facility] [address] [id number] [place] [address]- 3240 10 Jan, 2012 [facility] [place] [facility] [address] [id number] [place] [address]- 0188 27 Dec, 2011 [facility] [place] [facility] [address] [id number] [place] [address]- 2906 14 Sep2011 [facility] [place] [facility] [address] [id number] [place] [address]- 1476 12 Dec, 2011 [facility] [place] [facility] [address] [id number] [place] [address]- 2594 Dec, [facility] [place] [facility] [address] [id number] [place] [address]- 8269 Dec, [facility] [place] [facility] [address] [id number] [place] [address]- 0910 Nov, [facility] [place] [facility] [address] [id number] [place] [address]- 6365 Nov, [facility] [place] [facility] [address] [id number] [place] [address]- 5538 Nov, [facility] [place] [facility] [address] [id number] [place] [address]- 2160 Nov, [facility] [place] [facility] [address] [id number] [place] [address]- 3723 Nov, [facility] [place] [facility] [address] [id number] [place] [address]- 2785 Nov, [facility] [place] [facility] [address] [id number] [place] [address]- 3192 Nov, [facility] [place] [facility] [address] [id number] [place] [address]- 7897 Nov, [facility] [place] [facility] [address] [id number] [place] [address]- 2404 Nov, [facility] [place] [facility] [address] [id number] [place] [address]- 6029 Oct, [facility] [place] [facility] [address] [id number] [place] [address]- 4283 Oct, [facility] [place] [facility] [address] [id number] [place] [address]- 7135 Sep, [facility] [place] [facility] [address] [id number] [place] [address]- 6044 Sep, [facility] [place] [facility] [address] [id number] [place] [address]- 9726 Sep, [facility] [place] [facility] [address] [id number] [place] [address]- 3073 14 Aug, 2011 [facility] [place] [facility] [address] [id number] [place] [address]- 7060 30 Jul, 2011 [facility] [place] [facility] [address] [id number] [place] [address]- 3404 27 Jul, 2011 [facility] [place] [facility] [address] [id number] [place] [address]- 2734 27 Jul, 2011 [facility] [place] [facility] [address] [id number] [place] [address]- 7552 18 Jul, 2011 [facility] [place] [facility] [address] [id number] [place] [address]- 4435 16 Jul, 2011 [facility] [place] [facility] [address] [id number] [place] [address]- 1018 16 Jul, 2011 [facility] [place] [facility] [address] [id number] [place] [address]- 5419 16 Jul, 2011 [facility] [place] [facility] [address] [id number] [place] [address]- 4061 14 Jul, 2011 [facility] [place] [facility] [address] [id number] [place] [address]- 2742 12 Jul, 2011 [facility] [place] [facility] [address] [id number] [place] [address]- 7247 19 Jun, 2011 [facility] [place] [facility] [address] [id number] [place] [address]- 0270 18 Jun, 2011 [facility] [place] [facility] [address] [id number] [place] [address]- 8336 15 Jun, 2011 [facility] [place] [facility] [address] [id number] [place] [address]- 3306 12 Jun, 2011 [facility] [place] [facility] [address] [id number] [place] [address]- 3207 08 Jun, 2011 [facility] [place] [facility] [address] [id number] [place] [address]751 08 Jun, 2011 [facility] [place] [facility] [address] [id number] [place] [address]- 7683 Jun, [facility] [address] [id number] [place] [address]- 0246 Jun, [facility] [place] [facility] [address] [id number] [place] [address]- 9596 May, [facility] [place] [facility] [address] [id number] [place] [address]- 9856 May, [facility] [address] [id number] [place] [address]- 5270 May, [facility] [address] [id number] [place] [address]- 0226 Apr, [facility] [address] [id number] [place] [address]- 7474 Apr, [facility] [address] [id number] [place] [address]- 6500 Apr, [facility] [address] [id number] [place] [address]- 4105 Mar, [facility] [address] [id number] [place] [address]- 9390 Mar, [facility] [address] [id number] [place] [address]- 2527 15 Mar, 2011 [facility] [place] [facility] [address] [id number] [place] [address]- 4166 Mar, [facility] [place] [facility] [address] [id number] [place] [address]- 6796 Mar, [facility] [place] [facility] [address] [id number] [place] [address]- 5076 Mar, [facility] [place] [facility] [address] [id number] [place] 2566 Mar, [facility] [place] [facility] [address] [id number], [place] [address]- 4463 Mar, [facility] [place] [facility] [address] [id number] [place] [address]- 8195 08 Mar, 2011 [facility] [place] [facility] [address] [id number] [place] [address]- 7276 Mar, [facility] [place] [facility] [address] [id number] [place] [address]- 3322 Mar, [facility] [place] [facility] [address] [id number] [place] [address]- 4709 Mar, [facility] [place] [facility] [address] [id number] [place] [address]- 0132 Mar, [facility] [place] [facility] [address] [id number] [place] [address]- 5701 Mar, [facility] [place] [facility] [address] [id number] [place] [address]- 5911 Feb, [facility] [place] [facility] [address] [id number] [place] [address]- 0321 Feb, [facility] [place] [facility] [address] [id number] [place] [address]- 6230 Feb, [facility] [place] [facility] [address] [id number] [place] [address]- 2273 Jan, [facility] [place] [facility] [address] [id number], [place] [address]- 5326 Jan, [facility] [place] [facility] [address] [id number], [place] [address]- 4072 Oct, [facility] [place] [facility] [address] [id number] [place] [address]- 3169 Sep, [facility] [place] [facility] [address] [id number] [place] [address]- 5939 Mar, [facility] [place] [facility] [address] [id number] [place] [address]- 1518 16 Mar, 2010 [facility] [place] [facility] [id number], [place] [address]- 3256 16 Feb, 2010 [facility] [address] [facility] [id number], [place] [address]- 6887 Feb, [facility] [address] [id number], [place] [address]- 1506 Jan, [facility] [id number], [place] [address]- 7226 Jan, [facility] [address] [facility] [id number], [place] [address] Mar, [facility] [id number] [address] Feb, [facility] [id number] [address] Feb, [facility] [id number] [place] [address] Feb, [facility] [id number], [place] [address] Feb, [facility] [id number], [place] [address] Jan, [facility] [id number] [address] Dec, [facility] [id number] [address] Nov, IMMUNIZATIONS No Known Immunizations SOCIAL HISTORY [...] (GENERAL) HISTORY Type Description Date Hospitalization History [facility] March 2015
--- OUTSIDE RECORDS SUMMARY | 2017-10-27 10:37 | XMS REPORT ---
Author Author STEPHANIE CHRISTIANSEN [facility] Address [address] [place] [address] Care Team Providers Care Marker Machine Name Role Phone STEPHANIE CHRISTIANSEN Unavailable PROBLEMS Type Condition ICD9-CM Code QNR92-HT Code Onset Dates Condition Status SNOMED Code Problem Hyperlipidemia, unspecified hyperlipidemia type E78.5 Active 35648725 Problem Long-term insulin use Z79.4 Active 959321601 Problem Abnormal carotid ultrasound R93.8 Active 129022811 Problem Type 2 diabetes mellitus with complication E11.8 Active 34391562 Problem Positive TB test R76.11 Active 450774307 Problem Vascular dementia with behavior disturbance F01.51 Active 985153949 Problem PVD (peripheral vascular disease) I73.9 Active 075410074 Problem Pain R52 Active 09778150 Problem Other chronic osteomyelitis of left foot M86.672 Active 383366525 Problem Nicotine dependence, unspecified, uncomplicated F17.200 Active 033985596 Problem Peripheral vascular disease due to secondary diabetes E13.51 Active 5510027 Problem Nonintractable epilepsy without status epilepticus, unspecified epilepsy type G40.909 Active 836409898 Problem Recurrent major depressive disorder, remission status unspecified F33.9 Active 00660329 Problem Anxiety F41.9 Active 70983946 Problem Generalized anxiety disorder F41.1 Active 57587165 Problem Vascular dementia F01.50 Active 026240726 Problem Pseudobulbar affect F48.2 Active 77621459 Problem Coronary artery disease involving [place] coronary artery of [place] heart without angina pectoris I25.10 Active 3017627136016 Problem Gastroesophageal reflux disease without esophagitis K21.9 Active 953690787 Problem Cerebrovascular accident (CVA) due to other mechanism I63.8 Active 156448929 Problem Pulmonary emphysema, unspecified emphysema type J43.9 Active 06644659 Problem Neuropathy G62.9 Active 151034978 Problem Depression F32.9 Active 04057271 Problem Essential hypertension I10 Active 19792589 Problem Acquired hypothyroidism E03.9 Active 148864894 ALLERGIES No Information ENCOUNTERS Encounter Location Date Diagnosis [facility] [id number] [address] August, Generalized anxiety disorder F41.1 [facility] [id number] [place] [address] 88539- 0262 August, [facility] [address] [facility] [place] [id number] August, Type 2 diabetes mellitus with complication E11.8 ; Vascular dementia with behavior disturbance F01.51 ; Long-term insulin use Z79.4 and Nicotine dependence, unspecified, uncomplicated F17.200 [facility] [id number] [place] [address] 34707- 4093 August, Generalized anxiety disorder F41.1 [facility] [id number] [place] [address] 55649- 1541 Jul, Generalized anxiety disorder F41.1 [facility] [id number] [place] [address] [id number] Jun, Generalized anxiety disorder F41.1 [facility] [id number] [place] [address] [id number] Jun, [facility] [id number] [place] [address] [id number] May, [facility] [id number] [place] [address] 79324- 4225 May, [facility] [id number] [place] [address] [id number] May, Generalized anxiety disorder F41.1 [facility] [id number] [place] [address] 43250- 5917 Apr, [facility] [address] [facility] [place] [id number] Apr, Other chronic osteomyelitis of left foot M86.672 ; Type 2 diabetes mellitus with complication E11.8 ; Vascular dementia F01.50 ; Long-term insulin use Z79.4 ; PVD (peripheral vascular disease) I73.9 and Nicotine abuse 305.1 [facility] [id number], [place] [address] 4[address] Apr, [facility] [id number] [place] [address] [id number] Apr, [facility] [id number] [place] [address] 83462- 5941 Apr, Pain R52 and Generalized anxiety disorder F41.1 [facility] [id number] [place] [address] 48214- 7732 Mar, [facility] [id number] [place] [address] 99277- 1203 Mar, Pain R52 and Generalized anxiety disorder F41.1 [facility] [address] [place] [id number] Feb, Depression F32.9 ; Type 2 diabetes mellitus with complication E11.8 and Nicotine dependence, unspecified, uncomplicated F17.200 [facility] [id number] [place] [address] 99979- 5938 Feb, Generalized anxiety disorder F41.1 and Pain R52 [facility] [id number] [place] [address] 61085- 7870 Feb, [facility] [id number] [place] [address] 28376- 9700 Jan, [facility] [id number] [place] [address] 37328- 3982 Jan, Generalized anxiety disorder F41.1 and Pain R52 [facility] [id number] [place] [address] 92693- 9533 Jan, [facility] [id number] [place] [address] [id number] Dec, Generalized anxiety disorder F41.1 and Pain R52 [facility] [address] [place] [id number] Dec, Vascular dementia F01.50 ; Pain of left leg M79.605 ; Pain in right leg M79.604 and Type 2 diabetes mellitus with complication E11.8 [facility] [address] [facility] [id number] [place] [address] 09979- 6044 Dec, Pain R52 [facility] [id number] [place] [address] 60319- 3548 Dec, [facility] [id number] [place] [address] 78139- 9081 Nov, [facility] [id number] [place] [address] 05493- 6712 Nov, Pain R52 and Generalized anxiety disorder F41.1 [facility] [address] [place] [id number] Nov, Depression F32.9 ; Vascular dementia with behavior disturbance F01.51 and Anxiety F41.9 [facility] [id number] [place] [address] 50097- 9831 Nov, Pain R52 and Generalized anxiety disorder F41.1 [facility] [id number] [place] [address] 49021- 3423 Oct, Generalized anxiety disorder F41.1 [facility] [id number] [place] [address] 81786- 0213 Oct, Pain R52 [facility] [id number] [place] [address] 83158- 3920 Sep, [facility] [address] [place] [id number] Sep, Generalized anxiety disorder F41.1 [facility] [id number] [place] [address] 17010- 4227 Sep, Pain R52 [facility] [id number] [place] [address] 45929- 9196 Sep, Generalized anxiety disorder F41.1 [facility] [id number] [place] [address] 53099- 3302 August, [facility] [id number], [place] [address] August, [facility] [id number] [place] [address] 02494- 4694 August, Pain R52 [facility] [id number] [place] [address] 24912- 3520 August, Generalized anxiety disorder F41.1 [facility] [id number] [place] [address] [id number] August, Generalized anxiety disorder F41.1 [facility] [id number] [place] [address] 25524- 7770 Jul, Pain R52 [facility] [id number] [place] [address] 65781- 6863 Jul, [facility] [id number] [place] [address] [id number] Jul, [facility] [id number] [place] [address] 03594- 0325 Jun, [facility] [id number] [place] [address] [id number] Jun, Depression F32.9 [facility] [id number] [place] [address] 06584- 6754 Jun, Pain R52 [facility] [id number] [place] [address] 01365- 0929 Jun, [facility] [address] [place] [id number] Jun, Vascular dementia F01.50 and Depression F32.9 [facility] [address], [place] [address] 8108 May, Pain R52 [facility] [id number] [place] [address] 47423- 9263 May, [facility] [id number] [place] [address] 90862- 9766 May, Pseudobulbar affect F48.2 [facility] [address], [place] [address]- 8678 May, [facility] [id number] [place] [address] 20006- 3198 May, PVD (peripheral vascular disease) I73.9 [facility] [id number] [place] [address] 35736- 3018 May, Vascular dementia with behavior disturbance F01.51 [facility] [address] [place] [address] 98706- 2833 May, Vascular dementia with behavior disturbance F01.51 [facility] [id number] [place] [address] 38958- 0301 Apr, [facility] [id number] [place] [address] 15569- 5458 Apr, Pain R52 [facility] [address] [place] [id number] Apr, Generalized anxiety disorder F41.1 ; PVD (peripheral vascular disease) I73.9 and Type 2 diabetes mellitus with complication E11.8 [facility] [address] [place] [address] 98239- 2986 Apr, Vascular dementia with behavior disturbance F01.51 [facility] [address] [place] [address] 44304- 2292 Apr, [facility] [id number] [place] [address] 77532- 5686 Apr, Vascular dementia with behavior disturbance F01.51 [facility] [address] [place] [address] 77599- 2646 Apr, [facility] [id number] [place] [address] [id number] Mar, [facility] [id number] [place] [address] 88818- 7663 Mar, Type 2 diabetes mellitus with complication E11.8 ; Vascular dementia with behavior disturbance F01.51 and Depression F32.9 [facility] [address], [place] [address]- 0490 Mar, [facility] [id number] [place] [address] 70522- 7076 Feb, [facility] [id number] [place] [address] 00910- 0542 Feb, Viral illness B34.9 [facility] [id number] [place] [address] 98220- 4953 Jan, Diabetes 250.00 [facility] [id number] [place] [address] 74392- 7033 Jan, [facility] [id number] [place] [address] 49492- 2058 Jan, [facility] [id number] [place] [address] 27173- 3642 Jan, [facility] [address] [facility] [address] [place] [id number] Jan, Vascular dementia with behavior disturbance F01.51 and Type 2 diabetes mellitus with complication E11.8 [facility] [address] [place] [address] 54557- 5911 Jan, Pain R52 [facility] [address], [place] [address]- 3284 Jan, Pain R52 [facility] [id number] [place] [address] 27252- 0191 Dec, [facility] [id number] [place] [address] 04256- 2933 Nov, [facility] [address] [facility] [address] [address] [place] [id number] Nov, Type 2 diabetes mellitus with complication E11.8 [facility] [address], [place] [address]- 9239 Nov, [facility] [id number] [place] [address] 06383- 3808 Oct, [facility] [id number] [place] [address] 32884- 8955 Oct, [facility] [id number] [place] [address] 23008- 1122 Oct, Vascular dementia with behavior disturbance F01.51 and Type 2 diabetes mellitus with complication E11.8 [facility] [id number] [place] [address] 91146- 9795 August, Type 2 diabetes mellitus with complication E11.8 and Vascular dementia with behavior disturbance F01.51 [facility] [id number] [place] [address] 57193- 1491 August, Vascular dementia F01.50 [facility] [id number] [place] [address] 81053- 1104 August, Vascular dementia with behavior disturbance F01.51 [facility] [id number] [place] [address] 16979- 1345 Jul, Vascular dementia with behavior disturbance F01.51 [facility] [id number] [place] [address] 33437- 2219 Jun, Vascular dementia F01.50 [facility] [address] [place] [address] 92139- 4090 Jun, Type 2 diabetes mellitus with complication E11.8 ; Long- term insulin use Z79.4 and Vascular dementia with behavior disturbance F01.51 [facility] [address], [place] [address]- 1192 Jun, Vascular dementia with behavior disturbance F01.51 [facility] [id number] [place] [address] 02073- 8964 Jun, Vascular dementia F01.50 [facility] [id number] [place] [address] 95485- 5770 Apr, [facility] [id number] [place] [address] 07349- 3896 Apr, [facility] [id number], [place] [address]- 0838 Apr, [facility] [address], [place] [address]- 0726 Apr, Type 2 diabetes mellitus with complication E11.8 ; Depression F32.9 and Long-term insulin use Z79.4 [facility] [address], [place] [address]- 4176 Mar, [facility] [address] [place] [id number] Mar, Depression F32.9 ; Type 2 diabetes mellitus with complication E11.8 and Long-term insulin use Z79.4 [facility] [address], [place] [address]- 4806 Feb, [facility] [address], [place] [address]- 0641 Feb, Hyperthyroidism E05.90 [facility] [address], [place] [address]- 9311 Feb, Hyperthyroidism E05.90 [facility] [address], [place] [address]- 1208 Feb, [facility] [id number], [place] [address]- 2611 Jan, [facility] [id number], [place] [address]- 4591 Dec, Nicotine addiction 305.1 [facility] [id number], [place] [address]- 7330 Oct, Nicotine abuse 305.1 [facility] [id number], [place] [address]- 2106 Oct, [facility] [id number], [place] [address]- 8326 August, [facility] [address] [facility] [place] [id number] August, History of drug abuse 305.93 and Diabetes 250.00 [facility] [address] [facility] [id number] [place] [address]- 9475 14 Jul, 2014 [facility] [address] [facility] [id number] [place] [address]- 0535 Jul, [facility] [address] [facility] [id number] [place] [address]- 5203 Jun, [facility] [address] [facility] [id number] [place] [address]- 7673 Jun, [facility] [address] [place] [place] [address]- 3993 Jun, [facility] [id number] [place] [address]- 8803 Jun, [facility] [address], [place] [address]- 2613 Jun, [facility] [id number] [place] [address]- 8655 Jun, [facility] [address], [place] [address]- 1653 May, [facility] [address], [place] [address]- 5853 May, [facility] [address], [place] [address]- 9721 May, [facility] [address] [facility] [id number], [place] [address]- 3626 May, [facility] [id number] 8300 May, [facility] [id number] 3322 Apr, [facility] [address], [place] [address]- 4454 Apr, [facility] [address] [facility] [id number] Apr, [facility] [address] [id number] [place] [address]- 7817 Apr, [facility] [address] [id number] [place] [address]- 3868 Apr, [facility] [address] [id number] [place] [address]- 8142 Apr, [facility] [place] [facility] [address] [id number] [place] [address]- 3106 Apr, [facility] [address] [id number] [place] [address]- 5379 Apr, [facility] [place] [facility] [address] [id number] [place] [address]- 8525 Mar, [facility] [place] [facility] [address] [id number] [place] [address]- 2214 Mar, [facility] [place] [facility] [address] [id number] [place] [address]- 7492 Mar, [facility] [place] [facility] [address] [id number] [place] [address]- 7986 Mar, [facility] [place] [facility] [address] [id number] [place] [address]- 4042 Mar, [facility] [place] [facility] [address] [id number], [place] [address]- 6734 Mar, [facility] [place] [facility] [address] [id number] [place] [address]- 1049 Mar, [facility] [place] [facility] [address] [id number] [place] [address]- 6366 Mar, [facility] [place] [facility] [address] [id number] [place] [address]- 6361 Feb, [facility] [place] [facility] [address] [id number] [place] [address]- 4162 Feb, [facility] [place] [facility] [address] [id number] [place] [address]- 6317 Feb, [facility] [place] [facility] [address] [id number] [place] [address]- 2130 Feb, [facility] [place] [facility] [address] [id number] [place] [address]- 3835 Feb, [facility] [address] [place] [id number] Feb, [facility] [place] [facility] [address] [id number] [place] [address]- 7617 Feb, [facility] [place] [facility] [address] [id number] [place] [address]- 8686 Feb, [facility] [place] [facility] [address] [id number] [place] [address]- 4485 Feb, [facility] [place] [facility] [address] [id number] [place] [address]- 1155 Feb, [facility] [place] [facility] [address] [id number] [place] [address]- 9672 Jan, [facility] [place] [facility] [address] [id number] [place] [address]- 2532 30 Jan, 2014 [facility] [place] [facility] [address] [id number] [place] [address]- 6237 Jan, [facility] [place] [facility] [address] [id number], [place] [address]- 9425 17 Jan, 2014 [facility] [place] [facility] [address] [id number] [place] [address]- 1215 16 Jan, 2014 [facility] [place] [facility] [address] [id number] [place] [address]- 6219 16 Jan, 2014 [facility] [place] [facility] [address] [id number] [place] [address]- 6798 15 Jan, 2014 [facility] [place] [facility] [address] [id number] [place] [address]- 9730 13 Jan, 2013 [facility] [place] [facility] [address] [id number] [place] [address]- 4180 Jan, 2013 [facility] [place] [facility] [address] [id number] [place] [address]- 6517 Jan, 2013 [facility] [place] [facility] [address] [id number] [place] [address]- 0272 Jan, 2013 [facility] [place] [facility] [address] [id number] [place] [address]- 4774 Jan, [facility] [place] [facility] [address] [id number] [place] [address]- 3441 Jan, [facility] [place] [facility] [address] [id number] [place] [address]- 6902 Jan, [facility] [place] [facility] [address] [id number] [place] [address]- 1728 Jan, [facility] [place] [facility] [address] [id number] [place] [address]- 6452 Jan, [facility] [place] [facility] [address] [id number] [place] [address]- 7234 Jan, [facility] [place] [facility] [address] [id number] [place] [address]- 3071 Dec, 2013 [facility] [place] [facility] [address] [id number] [place] [address] 19 Dec, 2013 [facility] [place] [facility] [address] [id number] [place] [address] 11 Dec, 2013 [facility] [place] [facility] [address] [id number] [place] [address] Dec, 2013 [facility] [place] [facility] [address] [id number] [place] [address] Dec, 2013 [facility] [place] [facility] [address] [id number] [place] [address] Dec, 2013 [facility] [place] [facility] [address] [id number] [place] [address] 08 Dec, 2013 [facility] [place] [facility] [address] [id number] [place] [address] Dec, 2013 [facility] [place] [facility] [address] [id number] [place] [address] Dec, 2013 [facility] [place] [facility] [address] [id number] [place] [address] Dec, 2013 [facility] [place] [facility] [address] [id number] [place] [address] Dec, 2013 [facility] [place] [facility] [address] [id number] [place] [address] Dec, 2013 [facility] [place] [facility] [address] [id number] [place] [address] Dec, 2013 [facility] [place] [facility] [address] [id number] [place] [address] Dec, 2013 [facility] [place] [facility] [address] [id number] [place] [address] Nov, [facility] [place] [facility] [address] [id number] [place] [address] Nov, [facility] [place] [facility] [address] [id number] [place] [address] Nov, [facility] [place] [facility] [address] [id number] [place] [address] Nov, [facility] [place] [facility] [address] [id number] [place] [address] Nov, [facility] [place] [facility] [address] [id number] [place] [address]- [address] Nov, [facility] [place] [facility] [address] [id number] [place] [address] Nov, [facility] [place] [facility] [address] [id number] [place] [address] Nov, [facility] [place] [facility] [address] [id number] [place] [address] Nov, [facility] [place] [facility] [address] [id number] [place] [address] Nov, [facility] [place] [facility] [address] [id number] [place] [address] Nov, [facility] [place] [facility] [address] [id number] [place] [address] Nov, [facility] [place] [facility] [address] [id number] [place] [address] Nov, [facility] [place] [facility] [address] [id number] [place] [address] Nov, [facility] [place] [facility] [address] [id number] [place] [address] Oct, [facility] [place] [facility] [address] [id number] [place] [address] 38[address] Oct, [facility] [place] [facility] [address] [id number] [place] [address] 8863 Oct, [facility] [place] [facility] [address] [id number] [place] [address] 2812 Oct, [facility] [place] [facility] [address] [id number] [place] [address] 9991 Oct, [facility] [place] [facility] [address] [id number] [place] [address] 9236 Oct, [facility] [place] [facility] [address] [id number] [place] [address] 4660 Oct, [facility] [place] [facility] [address] [id number] [place] [address]- 8104 Oct, [facility] [place] [facility] [address] [id number] [place] [address] 6608 Oct, [facility] [place] [facility] [address] [id number] [place] [address] 7732 Oct, [facility] [place] [facility] [address] [id number] [place] [address]- 5029 Oct, [facility] [place] [facility] [address] [id number] [place] [address]- 2234 Oct, [facility] [place] [facility] [address] [id number] [place] [address]- 4802 Oct, [facility] [place] [facility] [address] [id number] [place] [address]- 4747 Oct, [facility] [place] [facility] [address] [id number] [place] [address]- 4727 Oct, [facility] [place] [facility] [address] [id number] [place] [address]- 7363 Oct, [facility] [place] [facility] [address] [id number] [place] [address]- 0590 Oct, [facility] [place] [facility] [address] [id number] [place] [address]- 5238 Oct, [facility] [place] [facility] [address] [id number] [place] [address]- 3543 Oct, [facility] [place] [facility] [address] [id number] [place] [address]- 7101 Oct, [facility] [place] [facility] [address] [id number] [place] [address]- 8715 Sep, [facility] [place] [facility] [address] [id number] [place] [address]- 7588 Sep, [facility] [place] [facility] [address] [id number] [place] [address]- 4792 Sep, [facility] [place] [facility] [address] [id number] [place] [address]- 8680 Sep, [facility] [place] [facility] [address] [id number] [place] [address]- 2546 Sep, [facility] [place] [facility] [address] [id number] [place] [address]- 9325 Sep, [facility] [place] [facility] [address] [id number] [place] [address]- 1782 August, [facility] [place] [facility] [address] [id number] [place] [address]- 4546 August, [facility] [place] [facility] [address] [id number] [place] [address]- 2777 Jul, [facility] [place] [facility] [address] [id number] [place] [address]- 8770 Jul, [facility] [place] [facility] [address] [id number] [place] [address]- 8270 Jul, [facility] [place] [facility] [address] [id number] [place] [address]- 4115 Jul, [facility] [place] [facility] [address] [id number] [place] [address]- 3383 Jul, [facility] [place] [facility] [address] [id number] [place] [address]- 4235 Jul, [facility] [place] [facility] [address] [id number] [place] [address]- 4532 Jul, [facility] [place] [facility] [address] [id number] [place] [address]- 8800 Jul, [facility] [place] [facility] [address] [id number] [place] [address]- 5015 Jun, [facility] [place] [facility] [address] [id number] [place] [address]- 9201 Jun, [facility] [place] [facility] [address] [id number] [place] [address]- 4699 Jun, [facility] [place] [facility] [address] [id number] [place] [address]- 8642 Jun, [facility] [place] [facility] [address] [id number] [place] [address]- 1891 Jun, [facility] [place] [facility] [address] [id number] [place] [address]- 0452 May, [facility] [place] [facility] [address] [id number] [place] [address]- 6936 May, [facility] [place] [facility] [address] [id number] [place] [address]- 8182 May, [facility] [place] [facility] [address] [id number] [place] [address]- 3041 May, [facility] [place] [facility] [address] [id number] [place] [address]- 1975 May, [facility] [place] [facility] [address] [facility] [id number] [place] [address]- 0039 May, [facility] [place] [facility] [address] [facility] [id number] [place] [address]- 5029 May, [facility] [place] [facility] [address] [facility] [id number] [place] [address]- 8245 May, [facility] [place] [facility] [address] [facility] [id number] [place] [address]- 1167 May, [facility] [place] [facility] [address] [facility] [id number] [place] [address]- 0594 May, [facility] [place] [facility] [address] [facility] [id number] [address] 7760 May, [facility] [place] [facility] [address] [facility] [id number] [place] [address]- 3197 Apr, [facility] [place] [facility] [address] [id number] [place] [address]- 3347 Apr, [facility] [place] [facility] [address] [facility] [id number], [place] [address] 3914 Mar, [facility] [place] [facility] [address] [facility] [id number], [place] [address]- 4632 Mar, [facility] [place] [facility] [address] [id number] [place] [address]- 5020 Mar, [facility] [place] [facility] [address] [id number] [place] [address]- 6564 Mar, [facility] [place] [facility] [address] [id number] [place] [address]- 7817 Mar, [facility] [place] [facility] [address] [id number] [place] [address]- 6457 Jan, [facility] [place] [facility] [address] [id number] [place] [address]- 5339 Jan, [facility] [place] [facility] [address] [id number] [place] [address]- 9941 Jan, [facility] [place] [facility] [address] [facility] [id number] [place] [address]- 3815 Jan, [facility] [place] [facility] [address] [facility] [id number] [place] [address]- 8257 Jan, [facility] [place] [facility] [address] [facility] [id number] [place] [address]- 8598 Jan, [facility] [place] [facility] [address] [facility] [id number], [place] [address]- 7094 Jan, [facility] [place] [facility] [address] [facility] [id number], [place] [address]- 4313 Jan, [facility] [place] [facility] [address] [facility] [id number], [place] [address]- 3786 Jan, [facility] [place] [facility] [address] [id number], [place] [address]- 0110 Jan, [facility] [place] [facility] [address] [facility] [id number], [place] [address]- 9325 Dec, [facility] [place] [facility] [address] [facility] [id number] [place] [address]- 0866 Oct, [facility] [place] [facility] [address] [id number] [place] [address]- 3045 Oct, [facility] [address] [id number] [place] [address]- 7597 Oct, [facility] [place] [facility] [address] [id number] [place] [address]- 5690 Oct, [facility] [address] [id number] [place] [address]- 7020 Oct, [facility] [place] [facility] [address] [id number] [place] [address]- 6842 Oct, [facility] [address] [id number] [place] [address]- 4752 Sep, [facility] [address] [id number] [place] [address]- 2994 August, [facility] [address] [id number] [place] [address]- 2743 August, [facility] [address] [id number] [place] [address]- 3923 August, [facility] [address] [id number] [place] [address]- 3009 August, [facility] [address] [id number] [place] [address]- 2377 August, [facility] [place] [facility] [address] [id number] [place] [address]- 9143 May, [facility] [place] [facility] [address] [id number] [place] [address]- 5620 Apr, [facility] [place] [facility] [address] [id number] [place] [address]- 9377 Apr, [facility] [place] [facility] [address] [id number] [place] [address]- 2546 Apr, [facility] [place] [facility] [address] [id number] [place] [address]- 0098 Apr, [facility] [address] [id number] [place] [address]- 3106 Apr, [facility] [place] [id number] Mar, [facility] [address] [id number] [place] [address]- 9502 Mar, [facility] [address] [id number] [place] [address]- 5300 Mar, [facility] [address] [id number] [place] [address]- 4069 Mar, [facility] [address] [id number] [place] [address]- 6494 Mar, [facility] [address] [id number] [place] [address]- 8433 Mar, [facility] [address] [id number] [place] [address]- 1505 Mar, [facility] [address] [id number] [place] [address]- 3983 Mar, [facility] [address] [id number] [place] [address]- 7858 Mar, [facility] [address] [id number] [place] [address]- 6051 Mar, [facility] [address] [id number] [place] [address]- 5240 Mar, [facility] [address] [id number] [place] [address]- 9866 Mar, [facility] [address] [id number] [place] [address]- 4551 Mar, [facility] [address] [id number] [place] [address]60 Mar, [facility] [address] [id number], [place] [address]- 6959 Mar, [facility] [place] [facility] [address] [id number] [place] [address]- 6615 Mar, [facility] [place] [facility] [address] [id number] [place]149 Mar, [facility] [place] [facility] [address] [id number] [place] [address]- 9183 Mar, [facility] [place] [facility] [address] [id number] [place] [address]- 2693 Mar, [facility] [place] [facility] [address] [id number] [place] [address]- 1316 Mar, [facility] [place] [facility] [address] [id number] [place] [address]- 3905 Feb, [facility] [place] [facility] [address] [id number] [place] [address]- 0664 Feb, [facility] [place] [facility] [address] [id number], [place] [address]- 6918 Feb, [facility] [place] [facility] [address] [id number], [place] [address]- 0149 Feb, [facility] [place] [facility] [address] [id number], [place] [address]- 5590 Jan, [facility] [place] [facility] [address] [id number], [place] [address]- 3880 Jan, [facility] [place] [facility] [address] [id number], [place] [address]- 3684 Jan, [facility] [place] [facility] [address] [id number], [place] [address]- 3439 Jan, [facility] [place] [facility] [address] [facility] [id number], [place] [address]- 9959 Jan, [facility] [place] [facility] [address] [id number] [place] [address]- 7885 Jan, [facility] [place] [facility] [address] [id number] [place] [address]- 7072 12 Jan, 2012 [facility] [place] [facility] [address] [id number] [place] [address]- 5340 12 Jan, 2012 [facility] [place] [facility] [address] [id number] [place] [address]- 4596 10 Jan, 2012 [facility] [place] [facility] [address] [id number] [place] [address]- 4321 27 Dec, 2011 [facility] [place] [facility] [address] [id number] [place] [address]- 9449 14 Dec, 2011 [facility] [place] [facility] [address] [id number] [place] [address]- 2946 12 Dec, 2011 [facility] [place] [facility] [address] [id number] [place] [address]- 3977 06 Dec, 2011 [facility] [place] [facility] [address] [id number] [place] [address]- 6884 06 Dec, 2011 [facility] [place] [facility] [address] [id number] [place] [address]- 8192 Nov, [facility] [place] [facility] [address] [id number] [place] [address]- 4805 Nov, [facility] [place] [facility] [address] [id number] [place] [address]- 8362 23 Nov, 2011 [facility] [place] [facility] [address] [id number] [place] [address]- 6457 14 Nov, 2011 [facility] [place] [facility] [address] [id number] [place] [address]- 7418 13 Nov, 2011 [facility] [place] [facility] [address] [id number] [place] [address]- 0448 Nov, [facility] [place] [facility] [address] [id number] [place] [address]- 5341 08 Nov, 2011 [facility] [place] [facility] [address] [id number] [place] [address]- 3122 Nov, [facility] [place] [facility] [address] [id number] [place] [address]- 5602 Nov, [facility] [place] [facility] [address] [id number] [place] [address]- 8668 19 Oct, 2011 [facility] [place] [facility] [address] [id number] [place] [address]- 4225 13 Oct, 2011 [facility] [place] [facility] [address] [id number] [place] [address]- 0831 Sep, [facility] [place] [facility] [address] [id number] [place] [address]- 2102 Sep, [facility] [place] [facility] [address] [id number] [place] [address]- 3364 Sep, [facility] [place] [facility] [address] [id number] [place] [address]- 0851 August, [facility] [place] [facility] [address] [id number] [place] [address]- 2207 30 Jul, 2011 [facility] [place] [facility] [address] [id number] [place] [address]- 9041 27 Jul, 2011 [facility] [place] [facility] [address] [id number] [place] [address]- 4898 27 Jul, 2011 [facility] [place] [facility] [address] [id number] [place] [address]- 4567 18 Jul, 2011 [facility] [place] [facility] [address] [id number] [place] [address]- 6098 16 Jul, 2011 [facility] [place] [facility] [address] [id number] [place] [address]- 9828 16 Jul, 2011 [facility] [place] [facility] [address] [id number] [place] [address]- 4641 16 Jul, 2011 [facility] [place] [facility] [address] [id number] [place] [address]- 1686 14 Jul, 2011 [facility] [place] [facility] [address] [id number] [place] [address]- 7730 12 Jul, 2011 [facility] [address] [id number] [place] [address]- 2635 Jun, [facility] [place] [facility] [address] [id number] [place] [address]- 7516 18 Jun, 2011 [facility] [place] [facility] [address] [id number] [place] [address]- 5316 15 Jun, 2011 [facility] [place] [facility] [address] [id number] [place] [address]- 1142 12 Jun, 2011 [facility] [place] [facility] [address] [id number] [place] [address]- 2609 Jun, [facility] [place] [facility] [address] [id number] [place] [address]- 9875 Jun, [facility] [address] [id number] [place] [address]- 4590 Jun, [facility] [place] [facility] [address] [id number] [place] [address]- 9440 Jun, [facility] [place] [facility] [address] [id number] [place] [address]- 1591 May, [facility] [place] [facility] [address] [id number] [place] [address]- 1836 May, [facility] [place] [facility] [address] [id number] [place] [address]- 0880 May, [facility] [place] [facility] [address] [id number] [place] [address]- 8009 Apr, [facility] [place] [facility] [address] [id number] [place] [address]- 4513 Apr, [facility] [place] [facility] [address] [id number] [place] [address]- 2426 Apr, [facility] [place] [facility] [address] [id number] [place] [address]- 4251 Mar, [facility] [place] [facility] [address] [id number] [place] [address]- 8331 Mar, [facility] [address] [id number] [place] 7076 Mar, [facility] [address] [id number] [place] [address]- 8756 Mar, [facility] [address] [id number] [place] [address]- 3597 Mar, [facility] [address] [id number] [place] [address]- 7494 Mar, [facility] [address] [id number] [place] [address]- 3797 Mar, [facility] [address] [id number] [place] [address]- 8754 Mar, [facility] [address] [id number] [place] [address]- 2936 Mar, [facility] [address] [id number] [place] [address]- 1149 Mar, [facility] [address] [id number] [place] [address]- 3261 Mar, [facility] [place] [facility] [address] [id number] [place] [address]- 2808 Mar, [facility] [place] [facility] [address] [id number] [place] [address]- 9906 Mar, [facility] [place] [facility] [address] [id number] [place] [address]- 6952 Mar, [facility] [place] [facility] [address] [id number] [place] [address]- 5341 Feb, [facility] [place] [facility] [address] [id number] [place] [address]- 9213 Feb, [facility] [place] [facility] [address] [id number] [place] [address]- 3356 14 Feb, 2011 [facility] [place] [facility] [address] [id number] [place] [address]- 0172 29 Jan, 2011 [facility] [place] [facility] [address] [id number] [place] [address]- 9246 Jan, [facility] [place] [facility] [address] [id number] [place] [address]- 1226 Oct, [facility] [place] [facility] [address] [id number] [place] [address]- 9212 Sep, [facility] [place] [facility] [address] [id number] [place] [address]- 7749 Mar, [facility] [place] [facility] [address] [id number] [place] [address] Mar, [facility] [place] [facility] [address] [id number] [place] [address] Feb, [facility] [place] [facility] [address] [id number] [place] [address] Feb, [facility] [place] [facility] [address] [id number] [place] [address] Jan, [facility] [place] [facility] [address] [id number] [place] [address] Jan, [facility] [place] [facility] [address] [id number], [place] [address] Mar, [facility] [place] [facility] [address] [id number], [place] [address] Feb, [facility] [place] [facility] [address] [id number] [place] [address] Feb, [facility] [place] [facility] [address] [id number] [place] [address] Feb, [facility] [place] [facility] [address] [id number] [place] [address] Feb, [facility] [place] [facility] [address] [facility] [id number] [place] [address] Jan, [facility] [address] [facility] [id number] [place] [address] Dec, [facility] [address] [facility] [id number] [place] [address] Nov, IMMUNIZATIONS No Known Immunizations SOCIAL HISTORY Never Assessed REASON FOR VISIT Controlled Med Refill PLAN OF CARE VITAL SIGNS MEDICATIONS Unknown Medications RESULTS No Results PROCEDURES No Known procedures INSTRUCTIONS MEDICATIONS ADMINISTERED No Known Medications MEDICAL (GENERAL) HISTORY Type Description Date Hospitalization History [facility] March 2015
--- OUTSIDE RECORDS SUMMARY | 2017-10-27 10:38 | XMS REPORT ---
Author Author STEPHANIE CHRISTIANSEN [facility] Address [address] [place] [address] Care Team Providers Care Coining Press Operator Name Role Phone STEPHANIE CHRISTIANSEN Unavailable PROBLEMS Type Condition ICD9-CM Code KNB36-AH Code Onset Dates Condition Status SNOMED Code Problem Hyperlipidemia, unspecified hyperlipidemia type E78.5 Active 18248531 Problem Long-term insulin use Z79.4 Active 629988388 Problem Abnormal carotid ultrasound R93.8 Active 497176973 Problem Type 2 diabetes mellitus with complication E11.8 Active 47356378 Problem Positive TB test R76.11 Active 630972643 Problem Vascular dementia with behavior disturbance F01.51 Active 736481393 Problem PVD (peripheral vascular disease) I73.9 Active 298987383 Problem Pain R52 Active 19342447 Problem Other chronic osteomyelitis of left foot M86.672 Active 457752285 Problem Nicotine dependence, unspecified, uncomplicated F17.200 Active 855654587 Problem Peripheral vascular disease due to secondary diabetes E13.51 Active 9972945 Problem Nonintractable epilepsy without status epilepticus, unspecified epilepsy type G40.909 Active 081560566 Problem Recurrent major depressive disorder, remission status unspecified F33.9 Active 98207688 Problem Anxiety F41.9 Active 31586346 Problem Generalized anxiety disorder F41.1 Active 97493648 Problem Vascular dementia F01.50 Active 027805482 Problem Pseudobulbar affect F48.2 Active 84666758 Problem 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 Active 0673746018691 Problem Gastroesophageal reflux disease without esophagitis K21.9 Active 788265680 Problem Cerebrovascular accident (CVA) due to other mechanism I63.8 Active 975234245 Problem Pulmonary emphysema, unspecified emphysema type J43.9 Active 86807903 Problem Neuropathy G62.9 Active 951322281 Problem Depression F32.9 Active 37976849 Problem Essential hypertension I10 Active 98182116 Problem Acquired hypothyroidism E03.9 Active 384729399 ALLERGIES No Information ENCOUNTERS Encounter Location Date Diagnosis [facility] [address], [place] [address] August, Generalized anxiety disorder F41.1 [facility] [id number] [place] [address] 56648- 7279 August, [facility] [address] [facility] [place] [id number] August, Type 2 diabetes mellitus with complication E11.8 ; Vascular dementia with behavior disturbance F01.51 ; Long-term insulin use Z79.4 and Nicotine dependence, unspecified, uncomplicated F17.200 [facility] [id number] [place] [address] 69404- 8609 August, Generalized anxiety disorder F41.1 [facility] [id number] [place] [address] 10136- 2578 Jul, Generalized anxiety disorder F41.1 [facility] [place] [id number] [place] [address] [id number] Jun, Generalized anxiety disorder F41.1 [facility] [place] [id number] [place] [address] [id number] Jun, [facility] [place] [id number] [place] [address] [id number] May, [facility] [address] [place] [address] 08172- 6078 May, [facility] [place] [id number] [place] [address] [id number] May, Generalized anxiety disorder F41.1 [facility] [address] [place] [address] 24232- 2662 Apr, [facility] [address] [facility] [place] [id number] Apr, Other chronic osteomyelitis of left foot M86.672 ; Type 2 diabetes mellitus with complication E11.8 ; Vascular dementia F01.50 ; Long-term insulin use Z79.4 ; PVD (peripheral vascular disease) I73.9 and Nicotine abuse 305.1 [facility] [id number], [place] [address] Apr, [facility] [place] [id number] [place] [address] [id number] Apr, [facility] [id number] [place] [address] 84893- 6366 Apr, Pain R52 and Generalized anxiety disorder F41.1 [facility] [id number] [place] [address] 93228- 7670 Mar, [facility] [id number] [place] [address] 83903- 1081 Mar, Pain R52 and Generalized anxiety disorder F41.1 [facility] [address] [place] [id number] Feb, Depression F32.9 ; Type 2 diabetes mellitus with complication E11.8 and Nicotine dependence, unspecified, uncomplicated F17.200 [facility] [id number] [place] [address] 86340- 8398 Feb, Generalized anxiety disorder F41.1 and Pain R52 [facility] [id number] [place] [address] 79493- 0273 Feb, [facility] [id number] [place] [address] 52475- 2249 Jan, [facility] [id number] [place] [address] 85671- 0307 Jan, Generalized anxiety disorder F41.1 and Pain R52 [facility] [address] [place] [address] 01083- 6262 Jan, [facility] [place] [id number] [place] [address] [id number] Dec, Generalized anxiety disorder F41.1 and Pain R52 [facility] [address] [place] [id number] Dec, Vascular dementia F01.50 ; Pain of left leg M79.605 ; Pain in right leg M79.604 and Type 2 diabetes mellitus with complication E11.8 [facility] [address] [facility] [id number] [place] [address] 05698- 8545 Dec, Pain R52 [facility] [id number] [place] [address] 03449- 8231 Dec, [facility] [id number] [place] [address] 50369- 0804 Nov, [facility] [id number] [place] [address] 60414- 5508 Nov, Pain R52 and Generalized anxiety disorder F41.1 [facility] [address] [place] [id number] Nov, Depression F32.9 ; Vascular dementia with behavior disturbance F01.51 and Anxiety F41.9 [facility] [id number] [place] [address] 46025- 3996 Nov, Pain R52 and Generalized anxiety disorder F41.1 [facility] [id number] [place] [address] 85600- 6430 Oct, Generalized anxiety disorder F41.1 [facility] [id number] [place] [address] 60269- 3119 Oct, Pain R52 [facility] [id number] [place] [address] 55492- 4609 Sep, [facility] [address] [place] [id number] Sep, Generalized anxiety disorder F41.1 [facility] [address] [place] [address] 65176- 4358 Sep, Pain R52 [facility] [id number] [place] [address] 62521- 2808 Sep, Generalized anxiety disorder F41.1 [facility] [id number] [place] [address] 90160- 4466 August, [facility] [id number], [place] [address] 6515 August, [facility] [address] [place] [address] 68561- 6225 August, Pain R52 [facility] [id number] [place] [address] 83374- 9555 August, Generalized anxiety disorder F41.1 [facility] [id number] [place] [address] [id number] August, Generalized anxiety disorder F41.1 [facility] [id number] [place] [address] 87987- 7669 Jul, Pain R52 [facility] [id number] [place] [address] 78764- 5681 Jul, [facility] [id number] [place] [address] [id number] Jul, [facility] [id number] [place] [address] 65611- 6504 Jun, [facility] [id number] [place] [address] [id number] Jun, Depression F32.9 [facility] [id number] [place] [address] 86874- 0538 Jun, Pain R52 [facility] [address] [place] [address] 96692- 2484 Jun, [facility] [address] [place] [place] [id number] Jun, Vascular dementia F01.50 and Depression F32.9 [facility] [address], [place] [address] 1256 May, Pain R52 [facility] [id number] [place] [address] 70023- 3193 May, [facility] [address] [place] [address] 61166- 0127 May, Pseudobulbar affect F48.2 [facility] [address], [place] [address] 7838 May, [facility] [id number] [place] [address] 53410- 7916 May, PVD (peripheral vascular disease) I73.9 [facility] [id number] [place] [address] 28552- 3572 May, Vascular dementia with behavior disturbance F01.51 [facility] [address] [place] [address] 37536- 8962 May, Vascular dementia with behavior disturbance F01.51 [facility] [id number] [place] [address] 29309- 7472 Apr, [facility] [id number] [place] [address] 21406- 2500 Apr, Pain R52 [facility] [address] [place] [id number] Apr, Generalized anxiety disorder F41.1 ; PVD (peripheral vascular disease) I73.9 and Type 2 diabetes mellitus with complication E11.8 [facility] [address] [place] [address] 60691- 7432 Apr, Vascular dementia with behavior disturbance F01.51 [facility] [address] [place] [address] 73513- 0516 Apr, [facility] [id number] [place] [address] 81106- 9333 Apr, Vascular dementia with behavior disturbance F01.51 [facility] [address] [place] [address] 84827- 4821 Apr, [facility] [place] [id number] [place] [address] [id number] Mar, [facility] [address] [place] [address] 14673- 7818 Mar, Type 2 diabetes mellitus with complication E11.8 ; Vascular dementia with behavior disturbance F01.51 and Depression F32.9 [facility] [address], [place] [address]- 8002 Mar, [facility] [id number] [place] [address] 91385- 9069 Feb, [facility] [id number] [place] [address] 88467- 3988 Feb, Viral illness B34.9 [facility] [id number] [place] [address] 09731- 6993 Jan, Diabetes 250.00 [facility] [id number] [place] [address] 47874- 2515 Jan, [facility] [id number] [place] [address] 80352- 6093 Jan, [facility] [id number] [place] [address] 29333- 6427 Jan, [facility] [address] [facility] [address] [place] [id number] Jan, Vascular dementia with behavior disturbance F01.51 and Type 2 diabetes mellitus with complication E11.8 [facility] [address] [place] [address] 39762- 6617 Jan, Pain R52 [facility] [address], [place] [address]- 2854 Jan, Pain R52 [facility] [address] [place] [address] 60008- 7361 Dec, [facility] [address] [place] [address] 26111- 4715 Nov, [facility] [address] [facility] [address] [place] [id number] Nov, Type 2 diabetes mellitus with complication E11.8 [facility] [address], [place] [address]- 2541 Nov, [facility] [id number] [place] [address] 22210- 5132 Oct, [facility] [id number] [place] [address] 56088- 7707 Oct, [facility] [id number] [place] [address] 58971- 5766 Oct, Vascular dementia with behavior disturbance F01.51 and Type 2 diabetes mellitus with complication E11.8 [facility] [id number] [place] [address] 89532- 5182 August, Type 2 diabetes mellitus with complication E11.8 and Vascular dementia with behavior disturbance F01.51 [place] [facility] [id number] [place] [address] 60506- 3486 August, Vascular dementia F01.50 [place] [id number] [place] [address] 74656- 6052 August, Vascular dementia with behavior disturbance F01.51 [facility] [id number] [place] [address] 07747- 4062 Jul, Vascular dementia with behavior disturbance F01.51 [facility] [id number] [place] [address] 64171- 7256 Jun, Vascular dementia F01.50 [facility] [address] [place] [address] 83293- 6625 Jun, Type 2 diabetes mellitus with complication E11.8 ; Long- term insulin use Z79.4 and Vascular dementia with behavior disturbance F01.51 [facility] [address], [place] [address]- 1838 Jun, Vascular dementia with behavior disturbance F01.51 [facility] [id number] [place] [address] 45724- 0642 Jun, Vascular dementia F01.50 [facility] [id number] [place] [address] 55084- 0496 Apr, [facility] [id number] [place] [address] 26708- 1766 Apr, [facility] [id number], [place] [address]- 1410 Apr, [facility] [address], [place] [address]- 2306 Apr, Type 2 diabetes mellitus with complication E11.8 ; Depression F32.9 and Long-term insulin use Z79.4 [facility] [address], [place] [address]- 7286 Mar, [facility] [address] [place] [id number] Mar, Depression F32.9 ; Type 2 diabetes mellitus with complication E11.8 and Long-term insulin use Z79.4 [facility] [address], [place] [address]- 1666 Feb, [facility] [address], [place] [address]- 2287 Feb, Hyperthyroidism E05.90 [facility] [address], [place] [address]- 2098 Feb, Hyperthyroidism E05.90 [facility] [address], [place] [address]- 8438 Feb, [facility] [id number], [place] [address]- 3411 Jan, [facility] [id number], [place] [address]- 9397 Dec, Nicotine addiction 305.1 [facility] [id number], [place] [address]- 4957 Oct, Nicotine abuse 305.1 [facility] [id number], [place] [address]- 7346 Oct, [facility] [id number], [place] [address]- 5172 August, [facility] [address] [facility] [place] [id number] August, History of drug abuse 305.93 and Diabetes 250.00 [facility] [address] [facility] [id number] [place] [address]- 9604 14 Jul, 2014 [facility] [address] [facility] [id number] [place] [address]- 4591 Jul, [facility] [address] [facility] [id number] [place] [address]- 6617 Jun, [facility] [address] [facility] [id number] [place] [address]- 6202 Jun, [facility] [id number] [place] [address]- 2274 Jun, [facility] [id number] [place] [address]- 5126 Jun, [facility] [address], [place] [address]- 4856 Jun, [facility] [id number] [place] [address]- 4131 Jun, [facility] [address], [place] [address]- 4956 May, [facility] [address], [place] [address]- 2013 May, [facility] [address], [place] [address]- 8541 May, [facility] [address] [facility] [id number], [place] [address]- 4715 May, [facility] [id number] 0448 May, [facility] [id number] 8637 Apr, [facility] [address], [place] [address]- 6365 Apr, [facility] [address] [facility] [id number] Apr, [facility] [address] [id number] [place] [address]- 5478 Apr, [facility] [address] [id number] [place] [address]- 6689 Apr, [facility] [address] [id number] [place] [address]- 3923 Apr, [facility] [place] [facility] [address] [id number] [place] [address]- 0596 Apr, [facility] [address] [id number] [place] [address]- 3937 Apr, [facility] [place] [facility] [address] [id number] [place] [address]- 2838 Mar, [facility] [place] [facility] [address] [id number] [place] [address]- 0397 Mar, [facility] [place] [facility] [address] [id number] [place] [address]- 1093 Mar, [facility] [place] [facility] [address] [id number] [place] [address]- 5797 Mar, [facility] [place] [facility] [address] [id number] [place] [address]- 6986 Mar, [facility] [place] [facility] [address] [id number], [place] [address]- 2408 Mar, [facility] [place] [facility] [address] [id number] [place] [address]- 0786 Mar, [facility] [place] [facility] [address] [id number] [place] [address]- 0240 Mar, [facility] [place] [facility] [address] [id number] [place] [address]- 9250 Feb, [facility] [place] [facility] [address] [id number] [place] [address]- 9830 Feb, [facility] [place] [facility] [address] [id number] [place] [address]- 9569 Feb, [facility] [place] [facility] [address] [id number] [place] [address]- 5389 Feb, [facility] [place] [facility] [address] [id number] [place] [address]- 6936 Feb, [facility] [address] [place] [id number] Feb, [facility] [place] [facility] [address] [id number] [place] [address]- 1680 Feb, [facility] [place] [facility] [address] [id number] [place] [address]- 5798 Feb, [facility] [place] [facility] [address] [id number] [place] [address]- 4265 Feb, [facility] [place] [facility] [address] [id number] [place] [address]- 0056 Feb, [facility] [place] [facility] [address] [id number] [place] [address]- 9397 Jan, [facility] [place] [facility] [address] [id number] [place] [address]- 6556 30 Jan, 2014 [facility] [place] [facility] [address] [id number] [place] [address]- 4445 Jan, [facility] [place] [facility] [address] [id number], [place] [address]- 3417 17 Jan, 2014 [facility] [place] [facility] [address] [id number] [place] [address]- 5716 16 Jan, 2014 [facility] [place] [facility] [address] [id number] [place] [address]- 2917 16 Jan, 2014 [facility] [place] [facility] [address] [id number] [place] [address]- 1605 15 Jan, 2014 [facility] [place] [facility] [address] [id number] [place] [address]- 4533 13 Jan, 2013 [facility] [place] [facility] [address] [id number] [place] [address]- 5215 Jan, 2013 [facility] [place] [facility] [address] [id number] [place] [address]- 6363 Jan, 2013 [facility] [place] [facility] [address] [id number] [place] [address]- 7497 Jan, 2013 [facility] [place] [facility] [address] [id number] [place] [address]- 0678 Jan, [facility] [place] [facility] [address] [id number] [place] [address]- 4002 Jan, [facility] [place] [facility] [address] [id number] [place] [address]- 7550 Jan, [facility] [place] [facility] [address] [id number] [place] [address] Jan, [facility] [place] [facility] [address] [id number] [place] [address] Jan, [facility] [place] [facility] [address] [id number] [place] [address] Jan, [facility] [place] [facility] [address] [id number] [place] [address] Dec, 2013 [facility] [place] [facility] [address] [id number] [place] [address] 19 Dec, 2013 [facility] [place] [facility] [address] [id number] [place] [address] 11 Dec, 2013 [facility] [place] [facility] [address] [id number] [place] [address] Dec, 2013 [facility] [place] [facility] [address] [id number] [place] [address] Dec, 2013 [facility] [place] [facility] [address] [id number] [place] [address] Dec, 2013 [facility] [place] [facility] [address] [id number] [place] [address] 08 Dec, 2013 [facility] [place] [facility] [address] [id number] [place] [address] Dec, 2013 [facility] [place] [facility] [address] [id number] [place] [address] Dec, 2013 [facility] [place] [facility] [address] [id number] [place] [address] Dec, 2013 [facility] [place] [facility] [address] [id number] [place] [address] Dec, 2013 [facility] [place] [facility] [address] [id number] [place] [address] Dec, 2013 [facility] [place] [facility] [address] [id number] [place] [address] Dec, 2013 [facility] [place] [facility] [address] [id number] [place] [address] Dec, 2013 [facility] [place] [facility] [address] [id number] [place] [address] Nov, [facility] [place] [facility] [address] [id number] [place] [address] Nov, [facility] [place] [facility] [address] [id number] [place] [address] Nov, [facility] [place] [facility] [address] [id number] [place] [address] Nov, [facility] [place] [facility] [address] [id number] [place] [address] Nov, [facility] [place] [facility] [address] [id number] [place] [address] Nov, [facility] [place] [facility] [address] [id number] [place] [address] Nov, [facility] [place] [facility] [address] [id number] [place] [address] 6965 Nov, [facility] [place] [facility] [address] [id number] [place] [address] 4433 Nov, [facility] [place] [facility] [address] [id number] [place] [address] 2506 Nov, [facility] [place] [facility] [address] [id number] [place] [address]- 3544 Nov, [facility] [place] [facility] [address] [id number] [place] [address] 5538 Nov, [facility] [place] [facility] [address] [id number] [place] [address]- 9943 Nov, [facility] [place] [facility] [address] [id number] [place] [address]- 2607 Nov, [facility] [place] [facility] [address] [id number] [place] [address]- 7203 Oct, [facility] [place] [facility] [address] [id number] [place] [address] 1543 Oct, [facility] [place] [facility] [address] [id number] [place] [address] 2096 Oct, [facility] [place] [facility] [address] [id number] [place] [address] 6941 Oct, [facility] [place] [facility] [address] [id number] [place] [address]- 4797 Oct, [facility] [place] [facility] [address] [id number] [place] [address] 8731 Oct, [facility] [place] [facility] [address] [id number] [place] [address]- 2386 Oct, [facility] [place] [facility] [address] [id number] [place] [address]- 9506 Oct, [facility] [place] [facility] [address] [id number] [place] [address]- 6272 Oct, [facility] [place] [facility] [address] [id number] [place] [address] 5436 Oct, [facility] [place] [facility] [address] [id number] [place] [address] 1666 Oct, [facility] [place] [facility] [address] [id number] [place] [address]- 0273 Oct, [facility] [place] [facility] [address] [id number] [place] [address] 8153 Oct, [facility] [place] [facility] [address] [id number] [place] [address]- 3741 Oct, [facility] [place] [facility] [address] [id number] [place] [address]- 7903 Oct, [facility] [place] [facility] [address] [id number] [place] [address]- 0056 Oct, [facility] [place] [facility] [address] [id number] [place] [address]- 1444 Oct, [facility] [place] [facility] [address] [id number] [place] [address]- 2899 Oct, [facility] [place] [facility] [address] [id number] [place] [address]- 7573 Oct, [facility] [place] [facility] [address] [id number] [place] [address]- 0268 Oct, [facility] [place] [facility] [address] [id number] [place] [address]- 1411 Sep, [facility] [place] [facility] [address] [id number] [place] [address]- 5397 Sep, [facility] [place] [facility] [address] [id number] [place] [address]- 8556 Sep, [facility] [place] [facility] [address] [id number] [place] [address]- 9835 Sep, [facility] [place] [facility] [address] [id number] [place] [address]- 2546 Sep, [facility] [place] [facility] [address] [id number] [place] [address]- 9870 Sep, [facility] [place] [facility] [address] [id number] [place] [address]- 5101 August, [facility] [place] [facility] [address] [id number] [place] [address]- 9706 August, [facility] [place] [facility] [address] [id number] [place] [address]- 2304 Jul, [facility] [place] [facility] [address] [id number] [place] [address]- 9751 Jul, [facility] [place] [facility] [address] [id number] [place] [address]- 5968 Jul, [facility] [place] [facility] [address] [id number] [place] [address]- 1750 Jul, [facility] [place] [facility] [address] [id number] [place] [address]- 1609 Jul, [facility] [place] [facility] [address] [id number] [place] [address]- 7840 Jul, [facility] [place] [facility] [address] [id number] [place] [address]- 3718 Jul, [facility] [place] [facility] [address] [id number] [place] [address]- 8623 Jul, [facility] [place] [facility] [address] [id number] [place] [address]- 6966 Jun, [facility] [place] [facility] [address] [id number] [place] [address]- 5264 Jun, [facility] [place] [facility] [address] [id number] [place] [address]- 2820 Jun, [facility] [place] [facility] [address] [id number] [place] [address]- 3121 Jun, [facility] [place] [facility] [address] [id number] [place] [address]- 0873 Jun, [facility] [place] [facility] [address] [id number] [place] [address]- 6304 May, [facility] [place] [facility] [address] [id number] [place] [address]- 8566 May, [facility] [place] [facility] [address] [id number] [place] [address]- 3299 May, [facility] [place] [facility] [address] [id number] [place] [address]- 3096 May, [facility] [place] [facility] [address] [id number] [place] [address]- 5039 May, [facility] [place] [facility] [address] [facility] [id number] [place] [address]- 5934 May, [facility] [place] [facility] [address] [facility] [id number] [place] [address]- 3693 May, [facility] [place] [facility] [address] [facility] [id number] [place] [address]- 5036 May, [facility] [place] [facility] [address] [facility] [id number] [place] [address]- 5355 May, [facility] [place] [facility] [address] [facility] [id number] [place] [address]- 5052 May, [facility] [place] [facility] [address] [facility] [id number], [place] [address]- 4897 May, [facility] [place] [facility] [address] [facility] [id number] [place] [address]- 3569 Apr, [facility] [place] [facility] [address] [id number] [place] [address]- 1162 Apr, [facility] [place] [facility] [address] [facility] [id number], [place] [address]- 5784 Mar, [facility] [place] [facility] [address] [facility] [id number], [place] [address]- 5898 Mar, [facility] [place] [facility] [address] [id number] [place] [address]- 2136 Mar, [facility] [place] [facility] [address] [id number] [place] [address]- 7045 Mar, [facility] [place] [facility] [address] [id number] [place] [address]- 3842 Mar, [facility] [place] [facility] [address] [id number] [place] [address]- 8051 Jan, [facility] [place] [facility] [address] [id number] [place] [address]- 8052 Jan, [facility] [place] [facility] [address] [id number] [place] [address]- 2398 Jan, [facility] [place] [facility] [address] [facility] [id number] [place] [address]- 8644 Jan, [facility] [place] [facility] [address] [facility] [id number] [place] [address]- 7369 Jan, [facility] [place] [facility] [address] [facility] [id number] [place] [address]- 0457 Jan, [facility] [place] [facility] [address] [facility] [id number], [place] [address]- 1156 Jan, [facility] [place] [facility] [address] [facility] [id number], [place] [address]- 1077 Jan, [facility] [place] [facility] [address] [facility] [id number], [place] [address]- 9097 Jan, [facility] [place] [facility] [address] [id number], [place] [address]- 6115 Jan, [facility] [place] [facility] [address] [facility] [id number], [place] [address]- 2685 Dec, [facility] [place] [facility] [address] [facility] [id number] [place] [address]- 0809 Oct, [facility] [place] [facility] [address] [id number] [place] [address]- 7567 Oct, [facility] [address] [id number] [place] [address]- 0438 Oct, [facility] [place] [facility] [address] [id number] [place] [address]- 1273 Oct, [facility] [address] [id number] [place] [address]- 0123 Oct, [facility] [place] [facility] [address] [id number] [place] [address]- 5295 Oct, [facility] [address] [id number] [place] [address]- 2649 Sep, [facility] [address] [id number] [place] [address]- 7507 August, [facility] [address] [id number] [place] [address]- 2939 August, [facility] [address] [id number] [place] [address]- 9225 August, [facility] [address] [id number] [place] [address]- 3734 August, [facility] [address] [id number] [place] [address]- 1076 August, [facility] [place] [facility] [address] [id number] [place] [address]- 1597 May, [facility] [place] [facility] [address] [id number] [place] [address]- 9861 Apr, [facility] [place] [facility] [address] [id number] [place] [address]- 0518 Apr, [facility] [place] [facility] [address] [id number] [place] [address]- 2546 Apr, [facility] [place] [facility] [address] [id number] [place] [address]- 2613 Apr, [facility] [address] [id number] [place] [address]- 8920 Apr, [facility] [address] [place] [id number] Mar, [facility] [address] [id number] [place] [address]- 4180 Mar, [facility] [address] [id number] [place] [address]- 2724 Mar, [facility] [address] [id number] [place] [address]- 9247 Mar, [facility] [address] [id number] [place] [address]- 4705 Mar, [facility] [address] [id number] [place] [address]- 9352 Mar, [facility] [address] [id number] [place] [address]- 8206 Mar, [facility] [address] [id number] [place] [address]- 8652 Mar, [facility] [address] [id number] [place] [address]- 9349 Mar, [facility] [address] [id number] [place] [address]- 7080 Mar, [facility] [address] [id number] [place] [address]- 8020 Mar, [facility] [address] [id number] [place] [address]- 4925 Mar, [facility] [address] [id number] [place] [address]- 6469 Mar, [facility] [address] [id number] [place] Mar, [facility] [address] [id number], [place] [address]- 2697 Mar, [facility] [place] [facility] [address] [id number] [place] [address]- 1900 Mar, [facility] [place] [facility] [address] [id number] [place] [address]49 Mar, [facility] [place] [facility] [address] [id number] [place] [address]- 6786 Mar, [facility] [place] [facility] [address] [id number] [place] [address]- 7656 Mar, [facility] [place] [facility] [address] [id number] [place] [address]- 2935 Mar, [facility] [place] [facility] [address] [id number] [place] [address]- 4163 Feb, [facility] [place] [facility] [address] [id number] [place] [address]- 6005 Feb, [facility] [place] [facility] [address] [id number], [place] [address]- 8352 Feb, [facility] [place] [facility] [address] [id number], [place] [address]- 3759 Feb, [facility] [place] [facility] [address] [id number], [place] [address]- 6102 Jan, [facility] [place] [facility] [address] [id number], [place] [address]- 8495 Jan, [facility] [place] [facility] [address] [id number], [place] [address]- 2314 Jan, [facility] [place] [facility] [address] [id number], [place] [address]- 8313 Jan, [facility] [place] [facility] [address] [facility] [id number], [place] [address]- 2119 Jan, [facility] [place] [facility] [address] [id number] [place] [address]- 1575 Jan, [facility] [place] [facility] [address] [id number] [place] [address]- 3429 12 Jan, 2012 [facility] [place] [facility] [address] [id number] [place] [address]- 3510 12 Jan, 2012 [facility] [place] [facility] [address] [id number] [place] [address]- 0036 10 Jan, 2012 [facility] [place] [facility] [address] [id number] [place] [address]- 1541 27 Dec, 2011 [facility] [place] [facility] [address] [id number] [place] [address]- 5560 14 Dec, 2011 [facility] [place] [facility] [address] [id number] [place] [address]- 3414 12 Dec, 2011 [facility] [place] [facility] [address] [id number] [place] [address]- 8865 06 Dec, 2011 [facility] [place] [facility] [address] [id number] [place] [address]- 2983 06 Dec, 2011 [facility] [place] [facility] [address] [id number] [place] [address]- 0039 Nov, [facility] [place] [facility] [address] [id number] [place] [address]- 8298 Nov, [facility] [place] [facility] [address] [id number] [place] [address]- 6492 23 Nov, 2011 [facility] [place] [facility] [address] [id number] [place] [address]- 6470 14 Nov, 2011 [facility] [place] [facility] [address] [id number] [place] [address]- 3048 13 Nov, 2011 [facility] [place] [facility] [address] [id number] [place] [address]- 9873 Nov, [facility] [place] [facility] [address] [id number] [place] [address]- 4890 08 Nov, 2011 [facility] [place] [facility] [address] [id number] [place] [address]- 1263 Nov, [facility] [place] [facility] [address] [id number] [place] [address]- 6628 Nov, [facility] [place] [facility] [address] [id number] [place] [address]- 4746 19 Oct, 2011 [facility] [place] [facility] [address] [id number] [place] [address]- 1885 13 Oct, 2011 [facility] [place] [facility] [address] [id number] [place] [address]- 1186 Sep, [facility] [place] [facility] [address] [id number] [place] [address]- 7111 Sep, [facility] [place] [facility] [address] [id number] [place] [address]- 1314 Sep, [facility] [place] [facility] [address] [id number] [place] [address]- 0628 August, [facility] [place] [facility] [address] [id number] [place] [address]- 0298 30 Jul, 2011 [facility] [place] [facility] [address] [id number] [place] [address]- 6810 27 Jul, 2011 [facility] [place] [facility] [address] [id number] [place] [address]- 8380 27 Jul, 2011 [facility] [place] [facility] [address] [id number] [place] [address]- 7641 18 Jul, 2011 [facility] [place] [facility] [address] [id number] [place] [address]- 1321 16 Jul, 2011 [facility] [place] [facility] [address] [id number] [place] [address]- 1137 16 Jul, 2011 [facility] [place] [facility] [address] [id number] [place] [address]- 6561 16 Jul, 2011 [facility] [place] [facility] [address] [id number] [place] [address]- 9188 14 Jul, 2011 [facility] [place] [facility] [address] [id number] [place] [address]- 6431 12 Jul, 2011 [facility] [address] [id number] [place] [address]- 0458 Jun, [facility] [place] [facility] [address] [id number] [place] [address]- 9138 18 Jun, 2011 [facility] [place] [facility] [address] [id number] [place] [address]- 4776 15 Jun, 2011 [facility] [place] [facility] [address] [id number] [place] [address]- 5576 12 Jun, 2011 [facility] [place] [facility] [address] [id number] [place] [address]- 0908 Jun, [facility] [place] [facility] [address] [id number] [place] [address]- 4865 Jun, [facility] [address] [id number] [place] [address]- 7066 Jun, [facility] [place] [facility] [address] [id number] [place] [address]- 5638 Jun, [facility] [place] [facility] [address] [id number] [place] [address]- 4350 May, [facility] [place] [facility] [address] [id number] [place] [address]- 8704 May, [facility] [place] [facility] [address] [id number] [place] [address]- 6801 May, [facility] [place] [facility] [address] [id number] [place] [address]- 0240 Apr, [facility] [place] [facility] [address] [id number] [place] [address]- 2458 Apr, [facility] [place] [facility] [address] [id number] [place] [address]- 6006 Apr, [facility] [place] [facility] [address] [id number] [place] [address]- 5887 Mar, [facility] [place] [facility] [address] [id number] [place] [address]- 5503 Mar, [facility] [address] [id number] [place] [address] Mar, [facility] [address] [id number] [place] [address]- 4406 Mar, [facility] [address] [id number] [place] [address]- 2569 Mar, [facility] [address] [id number] [place] [address]- 5002 Mar, [facility] [address] [id number] [place] [address]- 9776 Mar, [facility] [address] [id number] [place] [address]- 1409 Mar, [facility] [address] [id number] [place] [address]- 9657 Mar, [facility] [address] [id number] [place] [address]- 1870 Mar, [facility] [address] [id number] [place] [address] Mar, [facility] [place] [facility] [address] [id number] [place] [address] Mar, [facility] [place] [facility] [address] [id number] [place] [address] Mar, [facility] [place] [facility] [address] [id number] [place] [address] Mar, [facility] [place] [facility] [address] [id number] [place] [address] Feb, [facility] [place] [facility] [address] [id number] [place] [address] Feb, [facility] [place] [facility] [address] [id number] [place] [address] 14 Feb, 2011 [facility] [place] [facility] [address] [id number] [place] [address] 29 Jan, 2011 [facility] [place] [facility] [address] [id number] [place] [address] Jan, [facility] [place] [facility] [address] [id number] [place] [address] Oct, [facility] [place] [facility] [address] [id number] [place] [address] Sep, [facility] [place] [facility] [address] [id number] [place] [address] Mar, [facility] [place] [facility] [address] [id number] [place] [address] Mar, [facility] [place] [facility] [address] [id number] [place] [address] Feb, [facility] [place] [facility] [address] [id number] [place] [address] Feb, [facility] [place] [facility] [address] [id number] [place] [address] Jan, [facility] [place] [facility] [address] [id number] [place] [address] Jan, [facility] [place] [facility] [address] [id number], [place] [address] Mar, [facility] [place] [facility] [address] [id number], [place] [address] Feb, [facility] [place] [facility] [address] [id number] [place] [address] Feb, [facility] [place] [facility] [address] [id number] [place] [address] Feb, [facility] [place] [facility] [address] [id number] [place] [address] Feb, [facility] [place] [facility] [address] [facility] [id number] [place] [address] Jan, [place] [address] [facility] [id number], [place] [address] Dec, [facility] [address] [facility] [id number][place] [address] Nov, IMMUNIZATIONS No Known Immunizations SOCIAL HISTORY Never Assessed REASON FOR VISIT Routine Visit PLAN OF CARE Activity Details Follow Up prn Reason: VITAL SIGNS MEDICATIONS Medication Instructions Dosage Frequency Start Date End Date Duration Status Vasotec 2.5 MG Orally Once a day 1 tablet 24h Active Simvastatin 10 MG Orally Once a day 1 tablet in the evening 24h Active Aspir-81 81 MG Orally Once a day 1 tablet 24h Active Aricept 10 mg Orally Once a day 1 tablet at bedtime 24h Dec, 30 day(s) Active Metoprolol Tartrate 25 MG Orally Twice a day 1 tablet with food 12h Active Clonidine HCl 0.2 MG Orally twice a day 1 tablet 12h Active Celexa 40 mg Orally Once a day 1 tablet 24h Active Mylanta 200-200-20 MG/5ML Orally every 4 hrs 30 ml as needed 4h Active Melatonin 3 MG Orally Once a day 1 tablet at bedtime 24h Active Metformin HCl 1000 MG Orally Twice a day 1 tablet with meals 12h Active Exelon 9.5 MG/24HR Transdermal Once a day 1 patch to skin 24h Active Cholecalciferol 400 UNIT Orally Once a day 1 tablet 24h Active Klonopin 0.5 MG Orally Twice a day 2 tablets in AM and 1 in PM 12h August, 28 days Active Ultram 50 mg Orally 3 times a day 1 tablet 8h Apr, 28 days Active Plavix 75 MG Orally Once a day 1 tablet 24h Active Divalproex Sodium 125 MG Orally 4 times a day 2 capsules 6h Active Lactobacillus - Orally 4 times a day 1 tablet 6h Active Synthroid 150 MCG Orally Once a day 1 tablet on an empty stomach in the morning 24h Active Levetiracetam 500 mg Orally Twice a day 1 tablet 12h Active Remeron 15 MG Orally Once a day 1 tablet at bedtime 24h Active NovoLog 100 UNIT/ML Subcutaneous 3 times a day 3 units 8h Active Levemir 100 UNIT/ML Subcutaneous at bedtime 4 units Active RESULTS No Results PROCEDURES Procedure Date Ordered Result Body Site Stable Visit (10 minutes) Mar 13, 2017 INSTRUCTIONS MEDICATIONS ADMINISTERED No Known Medications MEDICAL (GENERAL) HISTORY Type Description Date Hospitalization History [facility] March 2015
--- OUTSIDE RECORDS SUMMARY | 2017-10-27 10:39 | XMS REPORT ---
Author Author STEPHANIE CHRISTIANSEN [facility] Address [address] [place] [address] Care Team Providers Care Distribution Spec Name Role Phone STEPHANIE CHRISTIANSEN Unavailable PROBLEMS Type Condition ICD9-CM Code TFU48-HZ Code Onset Dates Condition Status SNOMED Code Problem Hyperlipidemia, unspecified hyperlipidemia type E78.5 Active 24663196 Problem Long-term insulin use Z79.4 Active 045896165 Problem Abnormal carotid ultrasound R93.8 Active 783719887 Problem Type 2 diabetes mellitus with complication E11.8 Active 13266613 Problem Positive TB test R76.11 Active 686971914 Problem Vascular dementia with behavior disturbance F01.51 Active 737784430 Problem PVD (peripheral vascular disease) I73.9 Active 700192542 Problem Pain R52 Active 72969590 Problem Other chronic osteomyelitis of left foot M86.672 Active 152849565 Problem Nicotine dependence, unspecified, uncomplicated F17.200 Active 155529435 Problem Peripheral vascular disease due to secondary diabetes E13.51 Active 9099849 Problem Nonintractable epilepsy without status epilepticus, unspecified epilepsy type G40.909 Active 885865494 Problem Recurrent major depressive disorder, remission status unspecified F33.9 Active 65609298 Problem Anxiety F41.9 Active 18168540 Problem Generalized anxiety disorder F41.1 Active 44081915 Problem Vascular dementia F01.50 Active 448911430 Problem Pseudobulbar affect F48.2 Active 30056883 Problem Coronary artery disease involving [place] coronary artery of [place] heart without angina pectoris I25.10 Active 9051491138554 Problem Gastroesophageal reflux disease without esophagitis K21.9 Active 581767094 Problem Cerebrovascular accident (CVA) due to other mechanism I63.8 Active 177141063 Problem Pulmonary emphysema, unspecified emphysema type J43.9 Active 75927671 Problem Neuropathy G62.9 Active 147356019 Problem Depression F32.9 Active 55855493 Problem Essential hypertension I10 Active 10626848 Problem Acquired hypothyroidism E03.9 Active 422037181 ALLERGIES No Information ENCOUNTERS Encounter Location Date Diagnosis [facility] [address] [place] [address] 99110- 6384 Sep, Generalized anxiety disorder F41.1 [facility] [address] [address] 29[address] Sep, [facility] [id number] [place] [address] 04417- 8806 Sep, Type 2 diabetes mellitus with complication E11.8 [facility] [address] [place] [address] 10746- 3044 August, Generalized anxiety disorder F41.1 [facility] [id number] [place] [address] 59869- 8495 August, [facility] [address] [place] [id number] August, Type 2 diabetes mellitus with complication E11.8 ; Vascular dementia with behavior disturbance F01.51 ; Long-term insulin use Z79.4 and Nicotine dependence, unspecified, uncomplicated F17.200 [facility] [address] [place] [address] 95685- 6497 August, Generalized anxiety disorder F41.1 [facility] [address] [address] 2118 Jul, Generalized anxiety disorder F41.1 [facility] [place] [id number] [place] [address] [id number] Jun, Generalized anxiety disorder F41.1 [facility] [place] [id number] [id number] Jun, [facility] [place] [id number] [place] [address] [id number] May, [facility] [address] [address] May, [facility] [place] [id number] [place] [address] [id number] May, Generalized anxiety disorder F41.1 [facility] [address] [address] 5826 Apr, [facility] [address] [place] [id number] Apr, Other chronic osteomyelitis of left foot M86.672 ; Type 2 diabetes mellitus with complication E11.8 ; Vascular dementia F01.50 ; Long-term insulin use Z79.4 ; PVD (peripheral vascular disease) I73.9 and Nicotine abuse 305.1 [facility] [id number] [place] [address] 85298- 0970 Apr, [facility] [place] [address] [id number] Apr, [facility] [id number] [place] [address] 02438- 5695 Apr, Pain R52 and Generalized anxiety disorder F41.1 [facility] [id number] [place] [address] 04775- 5094 Mar, [facility] [id number] [place] [address] 58441- 8096 Mar, Pain R52 and Generalized anxiety disorder F41.1 [facility] [address] [place] [id number] Feb, Depression F32.9 ; Type 2 diabetes mellitus with complication E11.8 and Nicotine dependence, unspecified, uncomplicated F17.200 [facility] [address] [place] [address] 09406- 8184 Feb, Generalized anxiety disorder F41.1 and Pain R52 [facility] [address] [place] [address] 33521- 2295 Feb, [facility] [id number] [place] [address] 35781- 0261 Jan, [facility] [address] [place] [address] 26432- 1575 Jan, Generalized anxiety disorder F41.1 and Pain R52 [facility] [address] [facility] [id number] [address] 2463 Jan, [facility] [place] [id number] [place] [address] [id number] Dec, Generalized anxiety disorder F41.1 and Pain R52 [facility] [address] [place] [id number] Dec, Vascular dementia F01.50 ; Pain of left leg M79.605 ; Pain in right leg M79.604 and Type 2 diabetes mellitus with complication E11.8 [facility] [id number] [place] [address] 62439- 9663 11 Dec, 2016 Pain R52 [facility] [id number] [place] [address] 55839- 5992 Dec, [facility] [id number] [place] [address] 55825- 9580 Nov, [facility] [id number] [place] [address] 65736- 0603 Nov, Pain R52 and Generalized anxiety disorder F41.1 [facility] [address] [place] [id number] Nov, Depression F32.9 ; Vascular dementia with behavior disturbance F01.51 and Anxiety F41.9 [facility] [address] [place] [address] 56194- 8846 Nov, Pain R52 and Generalized anxiety disorder F41.1 [facility] [address] [place] [address] 31322- 9379 Oct, Generalized anxiety disorder F41.1 [facility] [id number] [place] [address] 54432- 8066 Oct, Pain R52 [facility] [id number] [place] [address] 63687- 1283 Sep, [facility] [address] [place] [id number] Sep, Generalized anxiety disorder F41.1 [facility] [address] [address] 2546 09 Sep, 2016 Pain R52 [facility] [address] [place] [address] 58422- 9823 Sep, Generalized anxiety disorder F41.1 [facility] [address] [address]- 5526 August, [facility] [id number] [place] [address] 92670- 0211 August, [facility] [address] [address] 8864 August, Pain R52 [facility] [address] [place] [address] 60290- 2992 August, Generalized anxiety disorder F41.1 [facility] [id number] [place] [address] [id number] August, Generalized anxiety disorder F41.1 [facility] [address] [address]- 4324 Jul, Pain R52 [facility] [address] [place] [address] 83499- 2184 Jul, [facility] [id number] [id number] Jul, [facility] [address] [place] [address] 90780- 7102 Jun, [facility] [id number] [id number] Jun, Depression F32.9 [facility] [address] [address]- 9256 Jun, Pain R52 [facility] [address] [address]- 7296 Jun, [facility] [address] [place] [id number] Jun, Vascular dementia F01.50 and Depression F32.9 [facility] [id number] [place] [address] 12665- 9302 May, Pain R52 [facility] [address] 18207- 7402 15 May, [address] 02185- 1908 May, Pseudobulbar affect F48.2 [facility] [address] 86487- 8705 May, [place] [address] 92104- 6804 May, PVD (peripheral vascular disease) I73.9 [place] [address] 56002- 9783 May, Vascular dementia with behavior disturbance F01.51 [place] [address] 18020- 2899 May, Vascular dementia with behavior disturbance F01.51 [place] [address] 78440- 5246 Apr, [place] [id number] [place] [address] 74746- 7810 Apr, Pain R52 [facility] [address] [facility] [place] [id number] Apr, Generalized anxiety disorder F41.1 ; PVD (peripheral vascular disease) I73.9 and Type 2 diabetes mellitus with complication E11.8 [place] [id number] [place] [address] 46244- 5069 Apr, Vascular dementia with behavior disturbance F01.51 [place] [id number] [place] [address] 19268- 6174 Apr, [place] [id number] [place] [address] 55738- 6223 Apr, Vascular dementia with behavior disturbance F01.51 [facility] [address] [place] [address] 06380- 3138 Apr, [facility] [address] [id number] Mar, [facility] [id number] [place] [address] 14360- 2758 Mar, Type 2 diabetes mellitus with complication E11.8 ; Vascular dementia with behavior disturbance F01.51 and Depression F32.9 [facility] [id number] [place] [address] 33317- 0552 Mar, [facility] [address] 92864- 4626 Feb, [facility] [id number] [place] [address] 75786- 1211 Feb, Viral illness B34.9 [facility] [address] 07270- 3312 Jan, Diabetes 250.00 [facility] [id number] [place] [address] 84245- 3117 Jan, [facility] [id number] [place] [address] 36523- 8844 Jan, [facility] [id number] [place] [address] 02142- 0005 Jan, [facility] [address] [place] [id number] Jan, Vascular dementia with behavior disturbance F01.51 and Type 2 diabetes mellitus with complication E11.8 [facility] [id number] [place] [address] 05990- 4601 Jan, Pain R52 [facility] [id number] [place] [address] 69827- 6377 Jan, Pain R52 [facility] [id number] [place] [address] 83788- 4672 Dec, [facility] [address] [address]- 3633 Nov, [facility] [address] [place] [id number] Nov, Type 2 diabetes mellitus with complication E11.8 [facility] [address] [address]- 4268 Nov, [facility] [address] [place] [address] 61142- 6160 Oct, [facility] [address] [address]- 1597 Oct, [facility] [id number] [place] [address] 68652- 2069 Oct, Vascular dementia with behavior disturbance F01.51 and Type 2 diabetes mellitus with complication E11.8 [place] [address] [address]- 7521 August, Type 2 diabetes mellitus with complication E11.8 and Vascular dementia with behavior disturbance F01.51 [facility] [address] [address]- 5953 August, Vascular dementia F01.50 [facility] [address] [address]- 6240 August, Vascular dementia with behavior disturbance F01.51 [facility] [address] [address]- 0476 Jul, Vascular dementia with behavior disturbance F01.51 [facility] [address] [address]- 4777 Jun, Vascular dementia F01.50 [facility] [address] [address]- 5983 Jun, Type 2 diabetes mellitus with complication E11.8 ; Long- term insulin use Z79.4 and Vascular dementia with behavior disturbance F01.51 [facility] [address] [address]- 1386 Jun, Vascular dementia with behavior disturbance F01.51 [place] [address] [place] [address] 940902- 8094 Jun, Vascular dementia F01.50 [facility] [address] [address]- 4912 Apr, [facility] [id number] [place] [address] 126426- 4666 Apr, [facility] [address] [place] [address] 174820- 0854 Apr, [place] [id number] [place] [address] 937506- 3760 Apr, Type 2 diabetes mellitus with complication E11.8 ; Depression F32.9 and Long-term insulin use Z79.4 [place] [address] [place] [address] 33404- 1726 Mar, [facility] [address] [place] [id number] Mar, Depression F32.9 ; Type 2 diabetes mellitus with complication E11.8 and Long-term insulin use Z79.4 [place] [address] [address]- 2694 Feb, [place] [address] [place] [address] 49865- 0480 Feb, Hyperthyroidism E05.90 [place] [address] [address]- 4978 Feb, Hyperthyroidism E05.90 [place] [address] [place] [address] 27962- 7333 Feb, [place] [address] [place] [address] 988133- 7560 Jan, [place] [address] [place] [address] 859145- 3695 16 Dec, 2014 Nicotine addiction 305.1 [facility] [address] [address]- 6551 Oct, Nicotine abuse 305.1 [facility] [address] [address]- 7686 Oct, [facility] [address] [address]- 4851 August, [facility] [address] [place] [id number] August, History of drug abuse 305.93 and Diabetes 250.00 [facility] [address] [address]- 3562 Jul, [facility] [address] [address]- 3580 Jul, [facility] [address] [address]- 2025 Jun, [facility] [address] [address]- 3539 Jun, [facility] [address] [address]- 3090 Jun, [facility] [address] [address]- 0514 Jun, [facility] [address] [address]- 2633 Jun, [facility] [address] [address]- 8749 Jun, [facility] [address]- 1371 May, [facility] [address]- 5168 May, [facility] [id number]- 3260 May, [facility] [place] [facility] [address] [id number] [place] [address]- 3370 May, [facility] [address] [id number] [place] [address]- 9054 May, [facility] [address] [id number] [place] [address]- 9457 Apr, [facility] [address] [id number] [place] [address]- 7863 Apr, [facility] [address] [facility] [id number] Apr, [facility] [address] [id number] [place] [address]- 97[address] Apr, [facility] [address] [id number] [place] [address]- 86[address] Apr, [facility] [address] [id number] [place] [address]- 3770 Apr, [facility] [address] [id number] [place] [address]- 6301 Apr, [facility] [address] [id number] [place] [address]- 0358 Apr, [facility] [address] [id number] [place] [address]- 0922 Mar, [facility] [place] [facility] [address] [id number] [place] [address]- 0083 Mar, [facility] [place] [facility] [address] [id number] [place] [address]- 5714 Mar, [facility] [place] [facility] [address] [id number] [place] [address]- 6736 Mar, [facility] [place] [facility] [address] [id number] [place] [address]- 2546 Mar, [facility] [place] [facility] [address] [id number] [place] [address]- 5246 Mar, [facility] [place] [facility] [address] [id number] [place] [address]- 4533 Mar, [facility] [place] [facility] [address] [id number] [place] 8825 Mar, [facility] [place] [facility] [address] [id number] [place] 0531 Feb, [facility] [place] [facility] [address] [id number] [place] [address]- 7637 Feb, [facility] [place] [facility] [address] [id number] [place] [address]- 2695 Feb, [facility] [place] [facility] [address] [id number] [place] [address]- 7992 Feb, [facility] [place] [facility] [address] [id number] [place] [address]- 8148 Feb, [facility] [address] [place] [id number] Feb, [facility] [place] [facility] [address] [id number] [place] [address]- 3675 Feb, [facility] [place] [facility] [address] [id number] [place] [address]- 1247 Feb, [facility] [place] [facility] [address] [id number] [place] [address]- 6025 Feb, [facility] [place] [facility] [address] [id number] [place] [address]- 5253 Feb, [facility] [place] [facility] [address] [id number] [place] [address]- 9637 Jan, [facility] [place] [facility] [address] [id number] [place] [address]- 4981 Jan, [facility] [place] [facility] [address] [id number] [place] [address]- 1732 Jan, [facility] [place] [facility] [address] [id number] [place] [address]- 4666 17 Jan, 2014 [facility] [place] [facility] [address] [id number] [place] [address]- 9981 16 Jan, 2014 [facility] [place] [facility] [address] [id number] [place] 5683 16 Jan, 2014 [facility] [place] [facility] [address] [id number] [place] [address]- 0323 15 Jan, 2014 [facility] [place] [facility] [address] [id number] [place] [address]- 6401 Jan, [facility] [place] [facility] [address] [id number] [place] [address]- 3065 Jan, [facility] [place] [facility] [address] [id number] [place] [address]- 5199 Jan, [facility] [place] [facility] [address] [id number] [place] [address]- 5242 Jan, [facility] [place] [facility] [address] [id number] [place] [address]- 7110 Jan, [facility] [place] [facility] [address] [id number] [place] [address]- 4382 Jan, [facility] [place] [facility] [address] [id number] [place] [address]- 5970 Jan, [facility] [place] [facility] [address] [id number] [address]- 2683 08 Jan, 2014 [facility] [place] [facility] [address] [id number] [address]- 0842 Jan, [facility] [place] [facility] [address] [id number] [place] [address]- 5606 Jan, [facility] [place] [facility] [address] [id number] [address]- 4745 Dec, [facility] [place] [facility] [address] [id number] [place] [address]- 1094 19 Dec, 2013 [facility] [place] [facility] [address] [id number] [place] [address]- 9631 11 Dec, 2013 [facility] [place] [facility] [address] [id number] [place] [address]- 1921 11 Dec, 2013 [facility] [place] [facility] [address] [id number] [place] [address]- 7518 09 Dec, 2013 [facility] [place] [facility] [address] [id number] [place] [address]- 4623 09 Sep, 2013 [facility] [place] [facility] [address] [id number] [place] [address]- 0635 08 Dec, 2013 [facility] [place] [facility] [address] [id number] [place] [address]- 3545 08 Dec, 2013 [facility] [place] [facility] [address] [id number] [place] [address]- 4964 08 Dec, 2013 [facility] [place] [facility] [address] [id number] [place] [address]- 6817 08 Dec, 2013 [facility] [place] [facility] [address] [id number] [place] [address] 05 Dec, 2013 [facility] [place] [facility] [address] [id number] [place] [address] Dec, 2013 [facility] [place] [facility] [address] [id number] [place] [address] Dec, 2013 [facility] [place] [facility] [address] [id number] [place] [address] Dec, 2013 [facility] [place] [facility] [address] [id number] [place] [address] Nov, [facility] [place] [facility] [address] [id number] [place] [address] Nov, [facility] [place] [facility] [address] [id number] [place] [address] Nov, [facility] [place] [facility] [address] [id number] [place] [address] Nov, [facility] [place] [facility] [address] [id number] [place] [address] Nov, [facility] [place] [facility] [address] [id number] [place] [address] Nov, [facility] [place] [facility] [address] [id number] [place] [address] Nov, [facility] [place] [facility] [address] [id number] [place] [address] Nov, [facility] [place] [facility] [address] [id number] [place] [address] Nov, [facility] [place] [facility] [address] [id number] [place] [address] Nov, [facility] [place] [facility] [address] [id number] [place] [address] Nov, [facility] [place] [facility] [address] [id number] [place] [address] Nov, [facility] [place] [facility] [address] [id number] [place] [address] Nov, [facility] [place] [facility] [address] [id number] [place] [address] Nov, [facility] [place] [facility] [address] [id number] [place] [address] Oct, [facility] [place] [facility] [address] [id number] [place] [address] Oct, [facility] [place] [facility] [address] [id number] [place] [address] Oct, [facility] [place] [facility] [address] [id number] [place] [address] Oct, [facility] [place] [facility] [address] [id number] [place] [address] Oct, [facility] [place] [facility] [address] [id number] [place] [address] 43[address] Oct, 2013 [facility] [place] [facility] [address] [id number] [place] [address] Oct, 2013 [facility] [place] [facility] [address] [id number] [place] [address] 4085 Oct, [facility] [place] [facility] [address] [id number] [place] [address] 3[address] Oct, 2013 [facility] [place] [facility] [address] [id number] [place] [address]- 9287 Oct, [facility] [place] [facility] [address] [id number] [place] [address] 9456 Oct, [facility] [place] [facility] [address] [id number] [place] [address]- 1664 Oct, [facility] [place] [facility] [address] [id number] [place] [address] 9703 Oct, [facility] [place] [facility] [address] [id number] [place] [address]- 4705 Oct, [facility] [place] [facility] [address] [id number] [place] [address] 1241 Oct, [facility] [place] [facility] [address] [id number] [place] [address]- 7823 Oct, [facility] [place] [facility] [address] [id number] [place] [address] 9703 Oct, [facility] [place] [facility] [address] [id number] [place] [address]- 6511 Oct, [facility] [place] [facility] [address] [id number] [place] [address]- 7614 Oct, [facility] [place] [facility] [address] [id number] [place] [address]- 1322 Oct, [facility] [place] [facility] [address] [id number] [place] [address]- 4987 Sep, [facility] [place] [facility] [address] [id number] [place] [address]- 5591 Sep, [facility] [place] [facility] [address] [id number] [place] [address]- 2278 Sep, [facility] [place] [facility] [address] [id number] [place] [address]- 0411 Sep, [facility] [place] [facility] [address] [id number] [place] [address]- 3812 Sep, [facility] [place] [facility] [address] [id number] [place] [address]- 9671 Sep, [facility] [place] [facility] [address] [id number] [place] [address]- 3139 August, [facility] [place] [facility] [address] [id number] [place] [address]- 2356 August, [facility] [place] [facility] [address] [id number] [place] [address]- 1734 Jul, [facility] [place] [facility] [address] [id number] [place] [address]- 2149 Jul, [facility] [place] [facility] [address] [id number] [place] [address]- 5685 Jul, [facility] [place] [facility] [address] [id number] [place] [address]- 8976 Jul, [facility] [place] [facility] [address] [id number] [place] [address]- 7911 Jul, [facility] [place] [facility] [address] [id number] [place] [address]- 1388 Jul, [facility] [place] [facility] [address] [id number] [place] [address]- 8730 Jul, [facility] [place] [facility] [address] [id number] [place] [address]- 5872 Jul, [facility] [place] [facility] [address] [id number] [place] [address]- 3559 Jun, [facility] [place] [facility] [address] [id number] [place] [address]- 7658 Jun, [facility] [place] [facility] [address] [id number] [place] [address]- 0725 Jun, [facility] [place] [facility] [address] [facility] [id number] [place] [address]- 1282 Jun, [facility] [place] [facility] [address] [id number] [place] [address]- 0935 Jun, [facility] [place] [facility] [address] [id number] [place] [address]- 4531 May, [facility] [place] [facility] [address] [id number] [place] [address]- 2794 May, [facility] [place] [facility] [address] [id number] [place] [address]- 5254 May, [facility] [place] [facility] [address] [id number] [place] [address]- 8085 May, [facility] [place] [facility] [address] [id number] [place] [address] 1936 May, [facility] [place] [facility] [address] [facility] [id number] [place] [address]- 4364 May, [facility] [place] [facility] [address] [facility] [id number] [place] [address]- 0991 May, [facility] [place] [facility] [address] [facility] [id number] [place] [address]- 5428 May, [facility] [place] [facility] [address] [facility] [id number] [place] [address]- 1514 07 May, 2013 [facility] [place] [facility] [address] [facility] [id number] [place] [address]- 6014 07 May, 2013 [facility] [place] [facility] [address] [facility] [id number] [place] [address]- 9215 06 May, 2013 [facility] [place] [facility] [address] [id number] [place] [address]- 2785 Apr, [facility] [place] [facility] [address] [id number] [place] [address]- 6833 Apr, [facility] [place] [facility] [address] [id number] [place] [address]- 4328 Mar, [facility] [place] [facility] [address] [id number] [place] [address]- 3161 Mar, [facility] [place] [facility] [address] [id number] [place] [address]- 5141 Mar, [facility] [place] [facility] [address] [id number] [place] [address]- 2539 Mar, [facility] [place] [facility] [address] [id number] [place] [address]- 7758 Mar, [facility] [place] [facility] [address] [id number] [place] [address]- 5942 Jan, [facility] [place] [facility] [address] [id number] [place] [address]- 4414 Jan, [facility] [place] [facility] [address] [id number] [place] [address]- 7143 Jan, [facility] [place] [facility] [address] [id number] [place] [address]- 4261 Jan, [facility] [place] [facility] [address] [id number] [place] [address]- 4089 Jan, [facility] [place] [facility] [address] [id number] [place] [address]- 4803 Jan, [facility] [place] [facility] [address] [id number] [place] [address]- 5718 Jan, [facility] [place] [facility] [address] [id number] [place] [address]- 5812 Jan, [facility] [place] [facility] [address] [id number] [place] [address]- 9807 Jan, [facility] [address] [id number] [place] [address]- 5098 Jan, [facility] [place] [facility] [address] [id number] [place] [address]- 7466 Dec, [facility] [address] [id number] [place] [address]- 9122 Oct, [facility] [place] [facility] [address] [id number] [place] [address]- 7032 Oct, [facility] [address] [id number] [place] [address]- 9052 Oct, [facility] [address] [id number] [place] [address]- 9087 Oct, [facility] [address] [id number] [place] [address]- 3161 Oct, [facility] [place] [facility] [address] [id number] [place] [address]- 5211 Oct, [facility] [address] [id number] [place] [address]- 9268 Sep, [facility] [place] [facility] [address] [id number] [place] [address]- 6906 August, [facility] [place] [facility] [address] [id number] [place] [address]- 3493 August, [facility] [place] [facility] [address] [id number] [place] [address] 2543 August, [facility] [place] [facility] [address] [id number] [place] [address]- 1329 August, [facility] [place] [facility] [address] [id number] [place] [address]- 4391 August, [facility] [place] [facility] [address] [id number] [place] [address]- 2546 May, [facility] [place] [facility] [address] [id number] [place] [address]- 7080 15 Apr, 2012 [facility] [place] [address] [id number] [place] [address]- 0365 Apr, [facility] [place] [address] [id number] [place] [address]- 7676 Apr, [facility] [place] [address] [id number] [place] [address]- 3039 Apr, [facility] [place] [address] [id number] [place] [address]- 2952 Apr, [facility] [address] [place] [id number] Mar, [facility] [place] [address] [id number] [place] [address]- 4746 31 Mar, 2012 [facility] [address] [id number] [place] [address]- 7804 19 Mar, 2012 [facility] [place] [address] [id number] [place] [address]- 5393 19 Mar, 2012 [facility] [place] [address] [id number] [place] [address]- 7178 17 Mar, 2012 [facility] [place] [address] [id number] [place] [address]- 5669 17 Mar, 2012 [facility] [place] [address] [id number] [place] [address]- 7284 13 Mar, 2012 [facility] [place] [address] [id number] [place] [address]- 7724 13 Mar, 2012 [facility] [place] [address] [id number] [place] [address]- 4336 13 Mar, 2012 [facility] [place] [address] [id number] [place] [address]- 2729 13 Mar, 2012 [facility] [place] [address] [id number] [place] [address]- 7258 12 Mar, 2012 [facility] [place] [facility] [address] [id number] [place] [address]- 4415 Mar, [facility] [place] [facility] [address] [id number] [place] [address]- 7006 Mar, [facility] [place] [facility] [address] [id number] [place] [address] Mar, [facility] [place] [facility] [address] [id number] [place] [address]- 4876 Mar, [facility] [place] [facility] [address] [id number] [place] [address]- 4903 Mar, [facility] [place] [facility] [address] [id number] [place] [address]- 5297 Mar, [facility] [place] [facility] [address] [id number] [place] [address]- 2674 Mar, [facility] [place] [facility] [address] [id number] [place] [address]- 1291 Mar, [facility] [place] [facility] [address] [id number] [place] [address]- 0862 Mar, [facility] [place] [facility] [address] [id number] [place] [address]- 0494 Feb, [facility] [place] [facility] [address] [id number] [place] [address]- 3878 Feb, [facility] [place] [facility] [address] [id number] [place] [address]- 8329 Feb, [facility] [place] [facility] [address] [id number] [place] [address]- 3525 Feb, [facility] [place] [facility] [address] [id number] [place] [address]- 0076 Jan, [facility] [place] [facility] [address] [id number] [place] [address]- 5909 Jan, [facility] [place] [facility] [address] [id number] [place] [address]- 1261 Jan, [facility] [place] [facility] [address] [id number] [place] [address]- 4403 29 Jan, 2012 [facility] [place] [facility] [address] [id number] [place] [address]- 1996 29 Jan, 2012 [facility] [place] [facility] [address] [id number] [place] [address]- 4176 Jan, [facility] [place] [facility] [address] [id number] [place] [address]- 7787 Jan, [facility] [place] [facility] [address] [id number] [place] [address]- 6003 Jan, [facility] [place] [facility] [address] [id number] [place] [address]- 7229 Jan, [facility] [place] [facility] [address] [id number] [place] [address]- 3736 27 Dec, 2011 [facility] [place] [facility] [address] [id number] [place] [address]- 2347 14 Dec, 2011 [facility] [place] [facility] [address] [id number] [place] [address]- 7289 12 Dec, 2011 [facility] [place] [facility] [address] [id number] [place] [address]- 4679 06 Dec, 2011 [facility] [place] [facility] [address] [id number] [place] [address]- 9748 06 Dec, 2011 [facility] [place] [facility] [address] [id number] [place] [address]- 1669 Nov, [facility] [place] [facility] [address] [id number] [place] [address]- 3047 Nov, [facility] [place] [facility] [address] [id number] [place] [address]- 6724 Nov, [facility] [place] [facility] [address] [id number] [place] [address]- 5004 14 Nov, 2011 [facility] [place] [facility] [address] [id number] [place] [address]- 0848 13 Nov, 2011 [facility] [place] [facility] [address] [id number] [place] [address]- 1582 09 Nov, 2011 [facility] [place] [facility] [address] [id number] [place] [address]- 4764 Nov, [facility] [place] [facility] [address] [id number] [place] [address]- 0041 Nov, [facility] [place] [facility] [address] [id number] [place] [address]- 0560 Nov, [facility] [place] [facility] [address] [id number] [place] [address]- 6925 Oct, [facility] [place] [facility] [address] [id number] [place] [address]- 7399 Oct, [facility] [place] [facility] [address] [id number] [place] [address]- 7575 Sep, [facility] [place] [facility] [address] [id number] [place] [address]- 0239 Sep, [facility] [place] [facility] [address] [id number] [place] [address]- 3375 Sep, [facility] [place] [facility] [address] [id number] [place] [address]- 0840 August, [facility] [place] [facility] [address] [id number] [place] [address]- 2656 30 Jul, 2011 [facility] [place] [facility] [address] [id number] [place] [address]- 9481 27 Jul, 2011 [facility] [place] [facility] [address] [id number] [place] [address]- 8777 27 Jul, 2011 [facility] [place] [facility] [address] [id number] [place] [address]- 1280 18 Jul, 2011 [facility] [place] [facility] [address] [id number] [place] [address]- 8404 16 Jul, 2011 [facility] [place] [facility] [address] [id number] [place] [address]- 4657 16 Jul, 2011 [facility] [place] [facility] [address] [id number] [place] [address]- 4443 16 Jul, 2011 [facility] [place] [facility] [address] [id number] [place] [address]- 0962 14 Jul, 2011 [facility] [place] [facility] [address] [id number] [place] [address]- 2477 12 Jul, 2011 [facility] [place] [facility] [address] [id number] [place] [address]- 0908 19 Jun, 2011 [facility] [place] [facility] [address] [id number] [place] [address]- 8998 18 Jun, 2011 [facility] [place] [facility] [address] [id number] [place] [address]- 9931 15 Jun, 2011 [facility] [place] [facility] [address] [id number] [place] [address]- 3751 Jun, [facility] [place] [facility] [address] [id number] [place] [address]- 2540 Jun, [facility] [place] [facility] [address] [id number] [place] [address]- 8772 Jun, [facility] [place] [facility] [address] [id number] [place] [address]- 5554 Jun, [facility] [place] [facility] [address] [id number] [place] [address]- 9465 Jun, [facility] [place] [facility] [address] [id number] [place] [address]- 8960 May, [facility] [place] [facility] [address] [id number] [place] [address]- 8966 May, [facility] [place] [facility] [address] [id number] [place] [address]- 9246 May, [facility] [place] [facility] [address] [id number] [place] [address]- 6599 Apr, [facility] [address] [id number] [place] [address]- 5100 Apr, [facility] [address] [id number] [place] [address]- 8079 Apr, [facility] [address] [facility] [id number] [place] [address]- 3486 Mar, [facility] [address] [id number] [place] [address]- 8977 Mar, [facility] [address] [id number] [place] [address]- 0844 15 Mar, 2011 [facility] [address] [id number] [place] [address]- 9380 Mar, [facility] [address] [facility] [id number] [place] [address]- 5787 Mar, [facility] [address] [id number] [place] [address]- 8705 Mar, [facility] [address] [id number] [place] [address]- 4124 Mar, [facility] [address] [facility] [id number] [place] [address]- 5223 Mar, [facility] [address] [id number] [place] [address]- 8988 08 Mar, 2011 [facility] [place] [facility] [address] [id number] [place] [address]- 8131 Mar, [facility] [place] [facility] [address] [id number] [place] [address]- 7688 06 Mar, 2011 [facility] [place] [facility] [address] [id number] [place] [address]- 0265 06 Mar, 2011 [facility] [address] [facility] [id number] [place] [address]- 6081 06 Mar, 2011 [facility] [place] [facility] [address] [id number] [place] [address]- 8380 05 Mar, 2011 [facility] [place] [facility] [address] [id number] [place] [address]- 0070 Feb, [facility] [place] [facility] [address] [id number] [place] [address]- 4772 Feb, [facility] [place] [facility] [address] [id number] [place] [address]- 9285 Feb, [facility] [place] [facility] [address] [id number] [place] [address]- 7206 Jan, [facility] [place] [facility] [address] [id number] [place] [address]- 3838 Jan, [facility] [place] [facility] [address] [id number] [place] [address]- 6557 Oct, [facility] [place] [facility] [address] [id number] [place] [address]- 8321 Sep, [facility] [place] [facility] [address] [id number] [place] [address]- 1809 Mar, [facility] [place] [facility] [address] [id number] [place] [address]- 0472 Mar, [facility] [place] [facility] [address] [id number] [place] [address]- 8493 Feb, [facility] [place] [facility] [address] [id number] [place] [address]- 7921 Feb, [facility] [place] [facility] [address] [id number] [place] [address]- 8602 Jan, [facility] [place] [facility] [address] [id number] [place] [address]- 5944 Jan, [facility] [place] [facility] [address] [id number] [place] [address]- 3540 Mar, [facility] [place] [facility] [address] [id number] [place] [address]- 2323 Feb, [facility] [address] [id number] [address]- 6306 Feb, [facility] [id number] [address]- 2746 Feb, [facility] [id number] [address] Feb, [facility] [id number] [address] Jan, [facility] [address] [address] Dec, [facility] [address] [id number] [address] Nov, IMMUNIZATIONS No Known Immunizations SOCIAL HISTORY Never Assessed REASON FOR VISIT Controlled Med Refill changed narcotic PLAN OF CARE VITAL SIGNS MEDICATIONS Medication Instructions Dosage Frequency Start Date End Date Duration Status Oxycodone-Ibuprofen 5-400 MG Orally 3 times a day 1 tablet 8h May, 20 days Active RESULTS No Results PROCEDURES No Known procedures INSTRUCTIONS MEDICATIONS ADMINISTERED No Known Medications MEDICAL (GENERAL) HISTORY Type Description Date Hospitalization History [facility] March 2015
--- OUTSIDE RECORDS SUMMARY | 2017-10-27 10:40 | XMS REPORT ---
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 Name Role Phone STEPHANIE CHRISTIANSEN Unavailable PROBLEMS Type Condition ICD9-CM Code IER60-XW Code Onset Dates Condition Status SNOMED Code Problem Hyperlipidemia, unspecified hyperlipidemia type E78.5 Active 20488276 Problem Long-term insulin use Z79.4 Active 183168362 Problem Abnormal carotid ultrasound R93.8 Active 614523449 Problem Type 2 diabetes mellitus with complication E11.8 Active 68660194 Problem Positive TB test R76.11 Active 929817308 Problem Vascular dementia with behavior disturbance F01.51 Active 662876918 Problem PVD (peripheral vascular disease) I73.9 Active 289595460 Problem Pain R52 Active 38085429 Problem Other chronic osteomyelitis of left foot M86.672 Active 384747859 Problem Nicotine dependence, unspecified, uncomplicated F17.200 Active 265465110 Problem Peripheral vascular disease due to secondary diabetes E13.51 Active 1187651 Problem Nonintractable epilepsy without status epilepticus, unspecified epilepsy type G40.909 Active 051268791 Problem Recurrent major depressive disorder, remission status unspecified F33.9 Active 23519527 Problem Anxiety F41.9 Active 55498401 Problem Generalized anxiety disorder F41.1 Active 93505230 Problem Vascular dementia F01.50 Active 291512575 Problem Pseudobulbar affect F48.2 Active 06123130 Problem Coronary artery disease involving [place] coronary artery of [place] heart without angina pectoris I25.10 Active 8948747456868 Problem Gastroesophageal reflux disease without esophagitis K21.9 Active 870027656 Problem Cerebrovascular accident (CVA) due to other mechanism I63.8 Active 429214262 Problem Pulmonary emphysema, unspecified emphysema type J43.9 Active 24036154 Problem Neuropathy G62.9 Active 632582849 Problem Depression F32.9 Active 84318313 Problem Essential hypertension I10 Active 36540493 Problem Acquired hypothyroidism E03.9 Active 794988227 ALLERGIES No Information ENCOUNTERS Encounter Location Date Diagnosis [facility] [id number] [place] [address] 07573- 7263 Sep, Generalized anxiety disorder F41.1 [facility] [id number] [address] Sep, [facility] [id number] [place] [address] 96325- 2295 Sep, Type 2 diabetes mellitus with complication E11.8 [facility] [id number] [place] [address] 10379- 0107 August, Generalized anxiety disorder F41.1 [facility] [id number] [place] [address] 01583- 5058 August, [facility] [address] [place] [id number] August, Type 2 diabetes mellitus with complication E11.8 ; Vascular dementia with behavior disturbance F01.51 ; Long-term insulin use Z79.4 and Nicotine dependence, unspecified, uncomplicated F17.200 [facility] [id number] [place] [address] 56035- 4627 August, Generalized anxiety disorder F41.1 [facility] [id number] [address] 5740 Jul, Generalized anxiety disorder F41.1 [facility] [id number] [place] [address] [id number] Jun, Generalized anxiety disorder F41.1 [facility] [id number] [id number] Jun, [facility] [id number] [place] [address] [id number] May, [facility] [id number] [address] [address] May, [facility] [id number] [place] [address] [id number] May, Generalized anxiety disorder F41.1 [facility] [address] [address]- 3384 Apr, [facility] [address] [place] [id number] Apr, Other chronic osteomyelitis of left foot M86.672 ; Type 2 diabetes mellitus with complication E11.8 ; Vascular dementia F01.50 ; Long-term insulin use Z79.4 ; PVD (peripheral vascular disease) I73.9 and Nicotine abuse 305.1 [facility] [id number] [place] [address] 14420- 5513 Apr, [facility] [address] [id number] Apr, [facility] [id number] [place] [address] 25804- 7367 Apr, Pain R52 and Generalized anxiety disorder F41.1 [facility] [id number] [place] [address] 44971- 7740 Mar, [facility] [id number] [place] [address] 11185- 3499 Mar, Pain R52 and Generalized anxiety disorder F41.1 [facility] [address] [place] [id number] Feb, Depression F32.9 ; Type 2 diabetes mellitus with complication E11.8 and Nicotine dependence, unspecified, uncomplicated F17.200 [facility] [id number] [place] [address] 84027- 6856 Feb, Generalized anxiety disorder F41.1 and Pain R52 [facility] [id number] [place] [address] 49126- 9898 Feb, [facility] [id number] [place] [address] 86933- 8972 Jan, [facility] [id number] [place] [address] 03562- 1246 Jan, Generalized anxiety disorder F41.1 and Pain R52 [facility] [address] [facility] [id number] [address] 5501 Jan, [facility] [id number] [place] [address] [id number] Dec, Generalized anxiety disorder F41.1 and Pain R52 [facility] [address] [place] [id number] Dec, Vascular dementia F01.50 ; Pain of left leg M79.605 ; Pain in right leg M79.604 and Type 2 diabetes mellitus with complication E11.8 [facility] [id number] [place] [address] 50253- 0200 11 Dec, 2016 Pain R52 [facility] [id number] [place] [address] 92273- 5324 Dec, [facility] [id number] [place] [address] 08081- 5407 Nov, [facility] [id number] [place] [address] 58819- 7272 Nov, Pain R52 and Generalized anxiety disorder F41.1 [facility] [address] [place] [id number] Nov, Depression F32.9 ; Vascular dementia with behavior disturbance F01.51 and Anxiety F41.9 [facility] [id number] [place] [address] 64514- 0786 Nov, Pain R52 and Generalized anxiety disorder F41.1 [facility] [id number] [place] [address] 93816- 1227 Oct, Generalized anxiety disorder F41.1 [facility] [id number] [place] [address] 04849- 2873 Oct, Pain R52 [facility] [id number] [place] [address] 74364- 8139 Sep, [facility] [address] [place] [id number] Sep, Generalized anxiety disorder F41.1 [facility] [id number] [address] 2546 09 Sep, 2016 Pain R52 [facility] [id number] [place] [address] 19118- 7953 Sep, Generalized anxiety disorder F41.1 [facility] [id number] [address]- 8736 August, [facility] [id number] [place] [address] 74747- 1157 August, [facility] [id number] [address]- 8910 August, Pain R52 [facility] [id number] [place] [address] 16281- 4392 August, Generalized anxiety disorder F41.1 [facility] [id number] [place] [address] [id number] August, Generalized anxiety disorder F41.1 [facility] [address] [address]- 1701 Jul, Pain R52 [facility] [id number] [place] [address] 36497- 1332 Jul, [facility] [id number] [id number] Jul, [facility] [id number] [place] [address] 18825- 3550 Jun, [facility] [id number] [id number] Jun, Depression F32.9 [facility] [id number] [address]- 6491 Jun, Pain R52 [facility] [id number] [address]- 1896 Jun, [facility] [address] [place] [id number] Jun, Vascular dementia F01.50 and Depression F32.9 [facility] [id number] [place] [address] 36917- 5853 May, Pain R52 [facility] [address] 57782- 9879 15 May, 2016 [place] [address] 90046- 8083 May, Pseudobulbar affect F48.2 [facility] [address] 02064- 7201 May, [place] [address] 93953- 0322 May, PVD (peripheral vascular disease) I73.9 [place] [address] 45736- 9523 May, Vascular dementia with behavior disturbance F01.51 [place] [address] 98926- 9364 May, Vascular dementia with behavior disturbance F01.51 [place] [address] 48539- 6330 Apr, [place] [id number] [place] [address] 26162- 7684 Apr, Pain R52 [facility] [address] [place] [id number] Apr, Generalized anxiety disorder F41.1 ; PVD (peripheral vascular disease) I73.9 and Type 2 diabetes mellitus with complication E11.8 [place] [id number] [place] [address] 80508- 0062 Apr, Vascular dementia with behavior disturbance F01.51 [place] [id number] [place] [address] 10072- 5111 Apr, [place] [id number] [place] [address] 20805- 5564 Apr, Vascular dementia with behavior disturbance F01.51 [facility] [id number] [place] [address] 37159- 9142 Apr, [facility] [address] [id number] Mar, [facility] [id number] [place] [address] 48083- 7305 Mar, Type 2 diabetes mellitus with complication E11.8 ; Vascular dementia with behavior disturbance F01.51 and Depression F32.9 [facility] [id number] [place] [address] 32276- 2138 Mar, [facility] [address] 16924- 9458 Feb, [facility] [id number] [place] [address] 65766- 7147 Feb, Viral illness B34.9 [facility] [address] 52391- 7793 Jan, Diabetes 250.00 [facility] [id number] [place] [address] 98328- 3741 Jan, [facility] [id number] [place] [address] 14793- 5823 Jan, [facility] [id number] [place] [address] 21340- 2228 Jan, [facility] [address] [place] [id number] Jan, Vascular dementia with behavior disturbance F01.51 and Type 2 diabetes mellitus with complication E11.8 [facility] [id number] [place] [address] 48908- 0525 Jan, Pain R52 [facility] [id number] [place] [address] 16400- 8943 Jan, Pain R52 [facility] [id number] [place] [address] 19454- 9116 Dec, [facility] [address] [address]- 3605 Nov, [facility] [address] [place] [id number] Nov, Type 2 diabetes mellitus with complication E11.8 [facility] [id number] [address]- 2862 Nov, [facility] [id number] [place] [address] 48383- 0934 Oct, [facility] [id number] [address]- 2264 Oct, [facility] [id number] [place] [address] 45998- 9341 Oct, Vascular dementia with behavior disturbance F01.51 and Type 2 diabetes mellitus with complication E11.8 [place] [id number] [address]- 4687 August, Type 2 diabetes mellitus with complication E11.8 and Vascular dementia with behavior disturbance F01.51 [facility] [address] [address]- 6399 August, Vascular dementia F01.50 [facility] [id number] [address]- 6170 August, Vascular dementia with behavior disturbance F01.51 [facility] [id number] [address]- 5287 Jul, Vascular dementia with behavior disturbance F01.51 [facility] [id number] [address]- 2062 Jun, Vascular dementia F01.50 [facility] [address] [address]- 3513 Jun, Type 2 diabetes mellitus with complication E11.8 ; Long- term insulin use Z79.4 and Vascular dementia with behavior disturbance F01.51 [facility] [address] [address]- 0285 Jun, Vascular dementia with behavior disturbance F01.51 [place] [id number] [place] [address] 624474- 8741 Jun, Vascular dementia F01.50 [facility] [address] [address]- 6498 Apr, [facility] [id number] [place] [address] 589674- 0666 Apr, [facility] [id number] [place] [address] 304870- 2614 Apr, [place] [id number] [place] [address] 827323- 1614 Apr, Type 2 diabetes mellitus with complication E11.8 ; Depression F32.9 and Long-term insulin use Z79.4 [place] [id number] [place] [address] 46616- 8249 Mar, [facility] [address] [place] [id number] Mar, Depression F32.9 ; Type 2 diabetes mellitus with complication E11.8 and Long-term insulin use Z79.4 [place] [id number] [address]- 9608 Feb, [place] [id number] [place] [address] 31612- 2037 Feb, Hyperthyroidism E05.90 [place] [id number] [address]- 8737 Feb, Hyperthyroidism E05.90 [place] [id number] [place] [address] 04811- 4592 Feb, [place] [id number] [place] [address] 965010- 6074 Jan, [place] [id number] [place] [address] 871255- 2124 16 Dec, 2014 Nicotine addiction 305.1 [facility] [address] [address]- 7092 Oct, Nicotine abuse 305.1 [facility] [address] [address]- 7001 Oct, [facility] [id number] [address]- 6943 August, [facility] [address] [place] [id number] August, History of drug abuse 305.93 and Diabetes 250.00 [facility] [address] [address]- 6368 Jul, [facility] [address] [address]- 2529 Jul, [facility] [id number] [address]- 8281 Jun, [facility] [address] [address]- 1757 Jun, [facility] [address] [address]- 7563 Jun, [facility] [id number] [address]- 8184 Jun, [facility] [id number] [address]- 7840 Jun, [facility] [id number] [address]- 0299 Jun, [facility] [id number] 9390 May, [facility] [address] 7695 May, [facility] [id number] 1176 May, [facility] [place] [facility] [address] [id number] [place] [address]- 3095 May, [facility] [address] [id number] [place] [address]- 6483 May, [facility] [address] [id number] [place] [address]- 3816 Apr, [facility] [address] [id number] [place] [address]- 3129 Apr, [facility] [address] [facility] [place] [id number] Apr, [facility] [address] [id number] [place] [address]- 9509 Apr, [facility] [address] [id number] [place] [address]- 2259 Apr, [facility] [address] [id number] [place] [address]- 8863 Apr, [facility] [address] [id number] [place] [address]- 8754 Apr, [facility] [address] [id number] [place] [address]- 8754 Apr, [facility] [address] [id number] [place] [address]- 2111 Mar, [facility] [place] [facility] [address] [id number] [place] [address]- 0263 Mar, [facility] [place] [facility] [address] [id number] [place] [address]- 0553 Mar, [facility] [place] [facility] [address] [id number] [place] [address]- 3067 Mar, [facility] [place] [facility] [address] [id number] [place] [address]- 2546 Mar, [facility] [place] [facility] [address] [id number] [place] [address]- 7406 Mar, [facility] [place] [facility] [address] [id number] [place] [address]- 9424 Mar, [facility] [place] [facility] [address] [id number] [place] 5171 Mar, [facility] [place] [facility] [address] [id number] [place] 6312 Feb, [facility] [place] [facility] [address] [id number] [place] [address]- 2749 Feb, [facility] [place] [facility] [address] [id number] [place] [address]- 6981 Feb, [facility] [place] [facility] [address] [id number] [place] [address]- 0858 Feb, [facility] [place] [facility] [address] [id number] [place] [address]- 3192 Feb, [facility] [address] [place] [id number] Feb, [facility] [place] [facility] [address] [id number] [place] [address]- 2628 Feb, [facility] [place] [facility] [address] [id number] [place] [address]- 3849 Feb, [facility] [place] [facility] [address] [id number] [place] [address]- 2831 Feb, [facility] [place] [facility] [address] [id number] [place] [address]- 9875 Feb, [facility] [place] [facility] [address] [id number] [place] [address]- 9158 Jan, [facility] [place] [facility] [address] [id number] [place] [address]- 5421 Jan, [facility] [place] [facility] [address] [id number] [place] [address]- 7768 Jan, [facility] [place] [facility] [address] [id number] [place] [address]- 7113 17 Jan, 2014 [facility] [place] [facility] [address] [id number] [place] [address]- 7438 16 Jan, 2014 [facility] [place] [facility] [address] [id number] [place] 0788 16 Jan, 2014 [facility] [place] [facility] [address] [id number] [place] [address]- 5600 15 Jan, 2014 [facility] [place] [facility] [address] [id number] [place] [address]- 8414 Jan, [facility] [place] [facility] [address] [id number] [place] [address]- 6275 Jan, [facility] [place] [facility] [address] [id number] [place] [address]- 9476 Jan, [facility] [place] [facility] [address] [id number] [place] [address]- 5335 Jan, [facility] [place] [facility] [address] [id number] [place] [address]- 9074 Jan, [facility] [place] [facility] [address] [id number] [place] [address]- 1045 Jan, [facility] [place] [facility] [address] [id number] [place] [address]- 2708 Jan, [facility] [place] [facility] [address] [id number] [address]- 0026 08 Jan, 2014 [facility] [place] [facility] [address] [id number] [address] Jan, [facility] [place] [facility] [address] [id number] [place] [address] Jan, [facility] [place] [facility] [address] [id number] [address] Dec, [facility] [place] [facility] [address] [id number] [place] [address] 19 Dec, 2013 [facility] [place] [facility] [address] [id number] [place] [address] 11 Dec, 2013 [facility] [place] [facility] [address] [id number] [place] [address] 11 Dec, 2013 [facility] [place] [facility] [address] [id number] [place] [address] 09 Dec, 2013 [facility] [place] [facility] [address] [id number] [place] [address] 09 Sep, 2013 [facility] [place] [facility] [address] [id number] [place] [address] 08 Dec, 2013 [facility] [place] [facility] [address] [id number] [place] [address] 08 Dec, 2013 [facility] [place] [facility] [address] [id number] [place] [address] 08 Dec, 2013 [facility] [place] [facility] [address] [id number] [place] [address] 08 Dec, 2013 [facility] [place] [facility] [address] [id number] [place] [address]- [address] 05 Dec, 2013 [facility] [place] [facility] [address] [id number] [place] [address]- [address] Dec, 2013 [facility] [place] [facility] [address] [id number] [place] [address]- [address] Dec, 2013 [facility] [place] [facility] [address] [id number] [place] [address] Dec, 2013 [facility] [place] [facility] [address] [id number] [place] [address] Nov, [facility] [place] [facility] [address] [id number] [place] [address] Nov, [facility] [place] [facility] [address] [id number] [place] [address] Nov, [facility] [place] [facility] [address] [id number] [place] [address] Nov, [facility] [place] [facility] [address] [id number] [place] [address] Nov, [facility] [place] [facility] [address] [id number] [place] [address] Nov, [facility] [place] [facility] [address] [id number] [place] [address] Nov, [facility] [place] [facility] [address] [id number] [place] [address] Nov, [facility] [place] [facility] [address] [id number] [place] [address] Nov, [facility] [place] [facility] [address] [id number] [place] [address] Nov, [facility] [place] [facility] [address] [id number] [place] [address] Nov, [facility] [place] [facility] [address] [id number] [place] [address] Nov, [facility] [place] [facility] [address] [id number] [place] [address] Nov, [facility] [place] [facility] [address] [id number] [place] [address] Nov, [facility] [place] [facility] [address] [id number] [place] [address] Oct, [facility] [place] [facility] [address] [id number] [place] [address] Oct, [facility] [place] [facility] [address] [id number] [place] [address] Oct, [facility] [place] [facility] [address] [id number] [place] [address] 15[address] Oct, [facility] [place] [facility] [address] [id number] [place] [address] 04[address] Oct, [facility] [place] [facility] [address] [id number] [place] [address] 0[address] Oct, 2013 [facility] [place] [facility] [address] [id number] [place] [address] 65[address] Oct, 2013 [facility] [place] [facility] [address] [id number] [place] [address] 4258 Oct, [facility] [place] [facility] [address] [id number] [place] [address]- 2374 Oct, 2013 [facility] [place] [facility] [address] [id number] [place] [address]- 2165 Oct, [facility] [place] [facility] [address] [id number] [place] [address] 1384 Oct, [facility] [place] [facility] [address] [id number] [place] [address]- 4481 Oct, [facility] [place] [facility] [address] [id number] [place] [address]- 7788 Oct, [facility] [place] [facility] [address] [id number] [place] [address]- 0274 Oct, [facility] [place] [facility] [address] [id number] [place] [address]- 6561 Oct, [facility] [place] [facility] [address] [id number] [place] [address]- 0988 Oct, [facility] [place] [facility] [address] [id number] [place] [address]- 8049 Oct, [facility] [place] [facility] [address] [id number] [place] [address]- 5020 Oct, [facility] [place] [facility] [address] [id number] [place] [address]- 2906 Oct, [facility] [place] [facility] [address] [id number] [place] [address]- 9095 Oct, [facility] [place] [facility] [address] [id number] [place] [address]- 4583 Sep, [facility] [place] [facility] [address] [id number] [place] [address]- 4745 Sep, [facility] [place] [facility] [address] [id number] [place] [address]- 5565 Sep, [facility] [place] [facility] [address] [id number] [place] [address]- 6893 Sep, [facility] [place] [facility] [address] [id number] [place] [address]- 1416 Sep, [facility] [place] [facility] [address] [id number] [place] [address]- 9542 Sep, [facility] [place] [facility] [address] [id number] [place] [address]- 5225 August, [facility] [place] [facility] [address] [id number] [place] [address]- 6125 August, [facility] [place] [facility] [address] [id number] [place] [address]- 1576 Jul, [facility] [place] [facility] [address] [id number] [place] [address]- 2259 Jul, [facility] [place] [facility] [address] [id number] [place] [address]- 1276 Jul, [facility] [place] [facility] [address] [id number] [place] [address]- 7981 Jul, [facility] [place] [facility] [address] [id number] [place] [address]- 9593 Jul, [facility] [place] [facility] [address] [id number] [place] [address]- 0850 Jul, [facility] [place] [facility] [address] [id number] [place] [address]- 2672 Jul, [facility] [place] [facility] [address] [id number] [place] [address]- 8174 Jul, [facility] [place] [facility] [address] [id number] [place] [address]- 2405 Jun, [facility] [place] [facility] [address] [id number] [place] [address]- 0980 Jun, [facility] [place] [facility] [address] [id number] [place] [address]- 9693 Jun, [facility] [place] [facility] [address] [facility] [id number] [place] [address]- 0861 Jun, [facility] [place] [facility] [address] [id number] [place] [address]- 7010 Jun, [facility] [place] [facility] [address] [id number] [place] [address]- 5224 May, [facility] [place] [facility] [address] [id number] [place] [address]- 6129 May, [facility] [place] [facility] [address] [id number] [place] [address]- 7871 May, [facility] [place] [facility] [address] [id number] [place] [address]- 8322 May, [facility] [place] [facility] [address] [id number] [place] [address]- 0571 May, [facility] [place] [facility] [address] [facility] [id number] [place] [address]- 8458 May, [facility] [place] [facility] [address] [facility] [id number] [place] [address]- 7455 May, [facility] [place] [facility] [address] [facility] [id number] [place] [address]- 1806 May, [facility] [place] [facility] [address] [facility] [id number] [place] [address]- 3427 07 May, 2013 [facility] [place] [facility] [address] [facility] [id number] [place] [address]- 1602 07 May, 2013 [facility] [place] [facility] [address] [facility] [id number] [place] [address]- 6828 06 May, 2013 [facility] [place] [facility] [address] [id number] [place] [address]- 9090 Apr, [facility] [place] [facility] [address] [id number] [place] [address]- 9020 Apr, [facility] [place] [facility] [address] [id number] [place] [address]- 8358 Mar, [facility] [place] [facility] [address] [id number] [place] [address]- 9396 Mar, [facility] [place] [facility] [address] [id number] [place] [address]- 3884 Mar, [facility] [place] [facility] [address] [id number] [place] [address]- 1456 Mar, [facility] [place] [facility] [address] [id number] [place] [address]- 0105 Mar, [facility] [place] [facility] [address] [id number] [place] [address]- 6961 Jan, [facility] [place] [facility] [address] [id number] [place] [address]- 2796 Jan, [facility] [place] [facility] [address] [id number] [place] [address]- 0427 Jan, [facility] [place] [facility] [address] [id number] [place] [address]- 5558 Jan, [facility] [place] [facility] [address] [id number] [address]- 4644 Jan, [facility] [place] [facility] [address] [id number] [place] [address]- 6813 Jan, [facility] [place] [facility] [address] [id number] [place] [address]- 7708 Jan, [facility] [place] [facility] [address] [id number] [place] [address]- 7463 Jan, [facility] [place] [facility] [address] [id number] [place] [address]- 7562 Jan, [facility] [address] [id number] [place] [address]- 5084 Jan, [facility] [place] [facility] [address] [id number] [place] [address]- 8306 Dec, [facility] [address] [id number] [place] [address]- 7349 Oct, [facility] [place] [facility] [address] [id number] [place] [address]- 3984 Oct, [facility] [address] [id number] [place] [address]- 2670 Oct, [facility] [address] [id number] [place] [address]- 5468 Oct, [facility] [address] [id number] [place] [address]- 9986 Oct, [facility] [place] [facility] [address] [id number] [place] [address]- 6991 Oct, [facility] [address] [id number] [place] [address]- 2412 Sep, [facility] [place] [facility] [address] [id number] [place] [address]- 1175 August, [facility] [place] [facility] [address] [id number] [place] [address]- 7960 August, [facility] [place] [facility] [address] [id number] [place] [address] 2543 August, [facility] [place] [facility] [address] [id number] [place] [address]- 2543 August, [facility] [place] [facility] [address] [id number] [place] [address]- 3629 August, [facility] [place] [facility] [address] [id number] [place] [address]- 2546 May, [facility] [place] [facility] [address] [id number] [place] [address]- 6169 15 Apr, 2012 [facility] [place] [address] [id number] [place] [address]- 8863 Apr, [facility] [place] [address] [id number] [place] [address]- 7946 Apr, [facility] [place] [address] [id number] [place] [address]- 7966 Apr, [facility] [place] [address] [id number] [place] [address]- 8242 Apr, [facility] [place] [id number] Mar, [facility] [place] [address] [id number] [place] [address]- 3745 31 Mar, 2012 [facility] [address] [id number] [place] [address]- 8481 19 Mar, 2012 [facility] [place] [address] [id number] [place] [address]- 5388 19 Mar, 2012 [facility] [place] [address] [id number] [place] [address]- 6986 17 Mar, 2012 [facility] [place] [address] [id number] [place] [address]- 5530 17 Mar, 2012 [facility] [place] [address] [id number] [place] [address]- 4838 13 Mar, 2012 [facility] [place] [address] [id number] [place] [address]- 9252 13 Mar, 2012 [facility] [place] [address] [id number] [place] [address]- 9832 13 Mar, 2012 [facility] [place] [address] [id number] [place] [address]- 8018 13 Mar, 2012 [facility] [place] [address] [id number] [place] [address]- 7621 12 Mar, 2012 [facility] [place] [facility] [address] [id number] [place] [address]- 5666 Mar, [facility] [place] [facility] [address] [id number] [place] [address]- 4856 Mar, [facility] [place] [facility] [address] [id number] [place] [address]66 Mar, [facility] [place] [facility] [address] [id number] [place] [address]- 6576 Mar, [facility] [place] [facility] [address] [id number] [place] [address]- 0481 Mar, [facility] [place] [facility] [address] [id number] [place] [address]- 6333 Mar, [facility] [place] [facility] [address] [id number] [place] [address]- 9038 Mar, [facility] [place] [facility] [address] [id number] [place] [address]- 0422 Mar, [facility] [place] [facility] [address] [id number] [place] [address]- 8005 Mar, [facility] [place] [facility] [address] [id number] [place] [address]- 5986 Feb, [facility] [place] [facility] [address] [id number] [place] [address]- 3132 Feb, [facility] [place] [facility] [address] [id number] [place] [address]- 5848 Feb, [facility] [place] [facility] [address] [id number] [place] [address]- 8647 Feb, [facility] [place] [facility] [address] [id number] [place] [address]- 3776 Jan, [facility] [place] [facility] [address] [id number] [place] [address]- 2272 Jan, [facility] [place] [facility] [address] [id number] [place] [address]- 0814 Jan, [facility] [place] [facility] [address] [id number] [place] [address]- 6380 29 Jan, 2012 [facility] [place] [facility] [address] [id number] [place] [address]- 1766 29 Jan, 2012 [facility] [place] [facility] [address] [id number] [place] [address]- 4316 Jan, [facility] [place] [facility] [address] [id number] [place] [address]- 5228 Jan, [facility] [place] [facility] [address] [id number] [place] [address]- 7980 Jan, [facility] [place] [facility] [address] [id number] [place] [address]- 0539 Jan, [facility] [place] [facility] [address] [id number] [place] [address]- 6251 27 Dec, 2011 [facility] [place] [facility] [address] [id number] [place] [address]- 0987 14 Dec, 2011 [facility] [place] [facility] [address] [id number] [place] [address]- 9934 12 Dec, 2011 [facility] [place] [facility] [address] [id number] [place] [address]- 2624 06 Dec, 2011 [facility] [place] [facility] [address] [id number] [place] [address]- 7029 06 Dec, 2011 [facility] [place] [facility] [address] [id number] [place] [address]- 3738 Nov, [facility] [place] [facility] [address] [id number] [place] [address]- 1030 Nov, [facility] [place] [facility] [address] [id number] [address]- 3569 Nov, [facility] [place] [facility] [address] [id number] [place] [address]- 8752 14 Nov, 2011 [facility] [place] [facility] [address] [id number] [place] [address]- 2991 13 Nov, 2011 [facility] [place] [facility] [address] [id number] [place] [address]- 7375 09 Nov, 2011 [facility] [place] [facility] [address] [id number] [place] [address]- 9820 Nov, [facility] [place] [facility] [address] [id number] [place] [address]- 4270 Nov, [facility] [place] [facility] [address] [id number] [place] [address]- 1173 Nov, [facility] [place] [facility] [address] [id number] [place] [address]- 5087 Oct, [facility] [place] [facility] [address] [id number] [place] [address]- 7208 Oct, [facility] [place] [facility] [address] [id number] [place] [address]- 0467 Sep, [facility] [place] [facility] [address] [id number] [place] [address]- 3869 Sep, [facility] [place] [facility] [address] [id number] [place] [address]- 1633 Sep, [facility] [place] [facility] [address] [id number] [place] [address]- 0899 August, [facility] [place] [facility] [address] [id number] [place] [address]- 6080 30 Jul, 2011 [facility] [place] [facility] [address] [id number] [place] [address]- 1200 27 Jul, 2011 [facility] [place] [facility] [address] [id number] [place] [address]- 9219 27 Jul, 2011 [facility] [place] [facility] [address] [id number] [place] [address]- 0431 18 Jul, 2011 [facility] [place] [facility] [address] [id number] [place] [address]- 3210 16 Jul, 2011 [facility] [place] [facility] [address] [id number] [place] [address]- 8303 16 Jul, 2011 [facility] [place] [facility] [address] [id number] [place] [address]- 6332 16 Jul, 2011 [facility] [place] [facility] [address] [id number] [place] [address]- 8466 14 Jul, 2011 [facility] [place] [facility] [address] [id number] [place] [address]- 1184 12 Jul, 2011 [facility] [place] [facility] [address] [id number] [place] [address]- 2914 19 Jun, 2011 [facility] [place] [facility] [address] [id number] [place] [address]- 5774 18 Jun, 2011 [facility] [place] [facility] [address] [id number] [place] [address]- 3149 15 Jun, 2011 [facility] [place] [facility] [address] [id number] [place] [address]- 1512 Jun, [facility] [place] [facility] [address] [id number] [place] [address]- 9697 Jun, [facility] [place] [facility] [address] [id number] [place] [address]- 1128 Jun, [facility] [place] [facility] [address] [id number] [place] [address]- 9981 Jun, [facility] [place] [facility] [address] [id number] [place] [address]- 5723 Jun, [facility] [place] [facility] [address] [id number] [place] [address]- 3071 May, [facility] [place] [facility] [address] [id number] [place] [address]- 7316 May, [facility] [place] [facility] [address] [id number] [place] [address]- 4346 May, [facility] [place] [facility] [address] [id number] [place] [address]- 7119 Apr, [facility] [address] [id number] [place] [address]- 8604 Apr, [facility] [address] [id number] [place] [address]- 9785 Apr, [facility] [address] [facility] [id number] [place] [address]- 4456 Mar, [facility] [address] [id number] [place] [address]- 8768 Mar, [facility] [address] [id number] [place] [address]- 3990 15 Mar, 2011 [facility] [address] [id number] [place] [address]- 2422 Mar, [facility] [address] [facility] [id number] [place] [address]- 9443 Mar, [facility] [address] [id number] [place] [address]- 9461 Mar, [facility] [address] [id number] [place] [address]- 5985 Mar, [facility] [address] [facility] [id number] [place] [address]- 6768 Mar, [facility] [address] [id number] [place] [address]- 9936 08 Mar, 2011 [facility] [place] [facility] [address] [id number] [place] [address]- 9973 Mar, [facility] [place] [facility] [address] [id number] [place] [address]- 4287 06 Mar, 2011 [facility] [place] [facility] [address] [id number] [place] [address]- 2041 06 Mar, 2011 [facility] [address] [facility] [id number] [place] [address]- 0622 06 Mar, 2011 [facility] [place] [facility] [address] [id number] [place] [address]- 3947 05 Mar, 2011 [facility] [place] [facility] [address] [id number] [place] [address]- 7050 Feb, [facility] [place] [facility] [address] [id number] [place] [address]- 0416 Feb, [facility] [place] [facility] [address] [id number] [place] [address]- 9554 Feb, [facility] [place] [facility] [address] [id number] [place] [address]- 3372 Jan, [facility] [place] [facility] [address] [id number] [place] [address]- 2805 Jan, [facility] [place] [facility] [address] [id number] [place] [address]- 9235 Oct, [facility] [place] [facility] [address] [id number] [place] [address]- 5989 Sep, [facility] [place] [facility] [address] [id number] [place] [address]- 8925 Mar, [facility] [place] [facility] [address] [id number] [place] [address]- 7095 Mar, [facility] [place] [facility] [address] [id number] [place] [address]- 9395 Feb, [facility] [place] [facility] [address] [id number] [place] [address]- 5601 Feb, [facility] [place] [facility] [address] [id number] [place] [address]- 4596 Jan, [facility] [place] [facility] [address] [id number] [place] [address]- 6785 Jan, [facility] [place] [facility] [address] [id number] [place] [address]- 6419 Mar, [facility] [place] [facility] [address] [id number] [place] [address]- 3664 Feb, [facility] [address] [facility] [id number] [address] Feb, [facility] [id number] [address] Feb, [facility] [address] [id number] [address] Feb, [facility] [id number] [address] Jan, [facility] [id number] [address] Dec, [facility] [address] [id number] [address] Nov, IMMUNIZATIONS No Known Immunizations SOCIAL HISTORY Never Assessed REASON FOR VISIT Controlled Med Refill PLAN OF CARE VITAL SIGNS MEDICATIONS Medication Instructions Dosage Frequency Start Date End Date Duration Status Klonopin 0.5 MG Orally Twice a day 2 tablets in AM and 1 in PM 12h August, 28 days Active RESULTS No Results PROCEDURES No Known procedures INSTRUCTIONS MEDICATIONS ADMINISTERED No Known Medications MEDICAL (GENERAL) HISTORY Type Description Date Hospitalization History [facility] March 2015
--- OUTSIDE RECORDS SUMMARY | 2017-10-27 10:40 | XMS REPORT ---
Author Author STEPHANIE CHRISTIANSEN [facility] Address [address] [place] [address] Care Team Providers Care Monogram And Letter Paster Name Role Phone STEPHANIE CHRISTIANSEN Unavailable PROBLEMS Type Condition ICD9-CM Code HVC80-RT Code Onset Dates Condition Status SNOMED Code Problem Hyperlipidemia, unspecified hyperlipidemia type E78.5 Active 45108005 Problem Long-term insulin use Z79.4 Active 623329369 Problem Abnormal carotid ultrasound R93.8 Active 894037983 Problem Type 2 diabetes mellitus with complication E11.8 Active 53582297 Problem Positive TB test R76.11 Active 957146485 Problem Vascular dementia with behavior disturbance F01.51 Active 071304163 Problem PVD (peripheral vascular disease) I73.9 Active 576486599 Problem Pain R52 Active 47481657 Problem Other chronic osteomyelitis of left foot M86.672 Active 095173797 Problem Nicotine dependence, unspecified, uncomplicated F17.200 Active 045803336 Problem Peripheral vascular disease due to secondary diabetes E13.51 Active 1961307 Problem Nonintractable epilepsy without status epilepticus, unspecified epilepsy type G40.909 Active 308952967 Problem Recurrent major depressive disorder, remission status unspecified F33.9 Active 14534831 Problem Anxiety F41.9 Active 14943983 Problem Generalized anxiety disorder F41.1 Active 69778429 Problem Vascular dementia F01.50 Active 346234090 Problem Pseudobulbar affect F48.2 Active 44387188 Problem Coronary artery disease involving [place] coronary artery of [place] heart without angina pectoris I25.10 Active 4501240598651 Problem Gastroesophageal reflux disease without esophagitis K21.9 Active 702789125 Problem Cerebrovascular accident (CVA) due to other mechanism I63.8 Active 031808484 Problem Pulmonary emphysema, unspecified emphysema type J43.9 Active 85283588 Problem Neuropathy G62.9 Active 921848642 Problem Depression F32.9 Active 77269395 Problem Essential hypertension I10 Active 81137857 Problem Acquired hypothyroidism E03.9 Active 328055680 ALLERGIES No Information ENCOUNTERS Encounter Location Date Diagnosis [facility] [address] [place] [address] 08319- 2212 Sep, Generalized anxiety disorder F41.1 [facility] [address], [place] [address] Sep, [facility] [id number] [place] [address] 13781- 4421 Sep, Type 2 diabetes mellitus with complication E11.8 [facility] [address] [place] [address] 03668- 2060 August, Generalized anxiety disorder F41.1 [facility] [id number] [place] [address] 97946- 8141 August, [facility] [address] [place] [id number] August, Type 2 diabetes mellitus with complication E11.8 ; Vascular dementia with behavior disturbance F01.51 ; Long-term insulin use Z79.4 and Nicotine dependence, unspecified, uncomplicated F17.200 [facility] [address] [place] [address] 86190- 2503 August, Generalized anxiety disorder F41.1 [facility] [address], [place] [address]- 8484 Jul, Generalized anxiety disorder F41.1 [facility] [id number] [place] [address] [id number] Jun, Generalized anxiety disorder F41.1 [facility] [address] [id number] Jun, [facility] [id number] [place] [address] [id number] May, [facility] [address] [address] 3350 May, [facility] [id number] [place] [address] [id number] May, Generalized anxiety disorder F41.1 [facility] [address], [place] [address]- 0462 Apr, [facility] [address] [place] [id number] Apr, Other chronic osteomyelitis of left foot M86.672 ; Type 2 diabetes mellitus with complication E11.8 ; Vascular dementia F01.50 ; Long-term insulin use Z79.4 ; PVD (peripheral vascular disease) I73.9 and Nicotine abuse 305.1 [facility] [id number] [place] [address] 91865- 6357 Apr, [facility] [address] [id number] Apr, [facility] [id number] [place] [address] 71313- 0728 Apr, Pain R52 and Generalized anxiety disorder F41.1 [facility] [id number] [place] [address] 37183- 6226 Mar, [facility] [id number] [place] [address] 92342- 5479 Mar, Pain R52 and Generalized anxiety disorder F41.1 [facility] [address] [place] [id number] Feb, Depression F32.9 ; Type 2 diabetes mellitus with complication E11.8 and Nicotine dependence, unspecified, uncomplicated F17.200 [facility] [address] [place] [address] 74808- 2617 Feb, Generalized anxiety disorder F41.1 and Pain R52 [facility] [address] [place] [address] 63403- 4385 Feb, [facility] [id number] [place] [address] 83987- 9098 Jan, [facility] [address] [place] [address] 20505- 9542 Jan, Generalized anxiety disorder F41.1 and Pain R52 [facility] [address] [facility] [id number] [address] 9970 Jan, [facility] [id number] [place] [address] [id number] Dec, Generalized anxiety disorder F41.1 and Pain R52 [facility] [address] [place] [id number] Dec, Vascular dementia F01.50 ; Pain of left leg M79.605 ; Pain in right leg M79.604 and Type 2 diabetes mellitus with complication E11.8 [facility] [id number] [place] [address] 09863- 0884 11 Dec, 2016 Pain R52 [facility] [id number] [place] [address] 46837- 9716 Dec, [facility] [id number] [place] [address] 75274- 7707 Nov, [facility] [id number] [place] [address] 65337- 5078 Nov, Pain R52 and Generalized anxiety disorder F41.1 [facility] [address] [place] [id number] Nov, Depression F32.9 ; Vascular dementia with behavior disturbance F01.51 and Anxiety F41.9 [facility] [address] [place] [address] 68262- 0830 Nov, Pain R52 and Generalized anxiety disorder F41.1 [facility] [address] [place] [address] 58820- 0076 Oct, Generalized anxiety disorder F41.1 [facility] [id number] [place] [address] 85970- 8712 Oct, Pain R52 [facility] [id number] [place] [address] 75355- 8580 Sep, [facility] [address] [place] [id number] Sep, Generalized anxiety disorder F41.1 [facility] [address], [place] [address] 2546 09 Sep, 2016 Pain R52 [facility] [address] [place] [address] 91859- 1988 Sep, Generalized anxiety disorder F41.1 [facility] [address], [place] [address]- 8466 August, [facility] [id number] [place] [address] 96307- 2602 August, [facility] [address], [place] [address]- 9599 August, Pain R52 [facility] [address] [place] [address] 62850- 4021 August, Generalized anxiety disorder F41.1 [facility] [id number] [place] [address] [id number] August, Generalized anxiety disorder F41.1 [facility] [address], [place] [address]- 9104 Jul, Pain R52 [facility] [address] [place] [address] 57501- 6600 Jul, [facility] [address] [id number] Jul, [facility] [address] [place] [address] 48281- 3356 Jun, [facility] [address] [id number] Jun, Depression F32.9 [facility] [address], [place] [address]- 8413 Jun, Pain R52 [facility] [address], [place] [address]- 7676 Jun, [facility] [address] [place] [id number] Jun, Vascular dementia F01.50 and Depression F32.9 [facility] [id number] [place] [address] 81639- 5331 May, Pain R52 [facility] [address] 56982- 2630 15 May, [address] 47610- 9011 May, Pseudobulbar affect F48.2 [facility] [address] 12773- 0185 May, [place] [address] 07999- 3213 May, PVD (peripheral vascular disease) I73.9 [place] [address] 19259- 8001 May, Vascular dementia with behavior disturbance F01.51 [place] [address] 38480- 7296 May, Vascular dementia with behavior disturbance F01.51 [place] [facility] [address] 74930- 6946 Apr, [facility] [id number] [place] [address] 76030- 9423 Apr, Pain R52 [facility] [address] [place] [id number] Apr, Generalized anxiety disorder F41.1 ; PVD (peripheral vascular disease) I73.9 and Type 2 diabetes mellitus with complication E11.8 [facility] [id number] [place] [address] 52242- 8118 Apr, Vascular dementia with behavior disturbance F01.51 [facility] [id number] [place] [address] 64060- 1387 Apr, [facility] [id number] [place] [address] 11356- 1004 Apr, Vascular dementia with behavior disturbance F01.51 [facility] [address] [place] [address] 17260- 6474 Apr, [facility] [address] [id number] Mar, [facility] [id number] [place] [address] 17528- 5775 Mar, Type 2 diabetes mellitus with complication E11.8 ; Vascular dementia with behavior disturbance F01.51 and Depression F32.9 [facility] [id number] [place] [address] 90433- 1929 Mar, [facility] [address] 85474- 2749 Feb, [facility] [id number] [place] [address] 20075- 5753 Feb, Viral illness B34.9 [facility] [address] 92724- 8128 Jan, Diabetes 250.00 [facility] [id number] [place] [address] 95694- 6613 Jan, [facility] [id number] [place] [address] 42570- 7204 Jan, [facility] [id number] [place] [address] 67713- 3121 Jan, [facility] [address] [place] [id number] Jan, Vascular dementia with behavior disturbance F01.51 and Type 2 diabetes mellitus with complication E11.8 [facility] [id number] [place] [address] 64228- 3813 Jan, Pain R52 [facility] [id number] [place] [address] 46324- 7224 Jan, Pain R52 [facility] [id number] [place] [address] 22122- 3466 Dec, [facility] [address], [place] [address]- 5315 Nov, [facility] [address] [place] [id number] Nov, Type 2 diabetes mellitus with complication E11.8 [facility] [address], [place] [address]- 7991 Nov, [facility] [address] [place] [address] 25762- 6206 Oct, [facility] [address], [place] [address]- 4119 Oct, [facility] [id number] [place] [address] 30589- 1520 Oct, Vascular dementia with behavior disturbance F01.51 and Type 2 diabetes mellitus with complication E11.8 [place] [facility] [address], [place] [address]- 9154 August, Type 2 diabetes mellitus with complication E11.8 and Vascular dementia with behavior disturbance F01.51 [facility] [address], [place] [address]- 4203 August, Vascular dementia F01.50 [facility] [address], [place] [address]- 5484 August, Vascular dementia with behavior disturbance F01.51 [facility] [address], [place] [address]- 7523 Jul, Vascular dementia with behavior disturbance F01.51 [facility] [address], [place] [address]- 8552 Jun, Vascular dementia F01.50 [facility] [address], [place] [address]- 6977 Jun, Type 2 diabetes mellitus with complication E11.8 ; Long- term insulin use Z79.4 and Vascular dementia with behavior disturbance F01.51 [facility] [address], [place] [address]- 1897 Jun, Vascular dementia with behavior disturbance F01.51 [place] [facility] [address] [place] [address] 942453- 5956 Jun, Vascular dementia F01.50 [facility] [address], [place] [address]- 1253 Apr, [facility] [id number] [place] [address] 749041- 6465 Apr, [facility] [address] [place] [address] 877918- 9372 Apr, [facility] [id number] [place] [address] 784087- 9470 Apr, Type 2 diabetes mellitus with complication E11.8 ; Depression F32.9 and Long-term insulin use Z79.4 [place] [address] [place] [address] 36915- 6177 Mar, [facility] [address] [place] [id number] Mar, Depression F32.9 ; Type 2 diabetes mellitus with complication E11.8 and Long-term insulin use Z79.4 [place] [address], [place] [address]- 4040 Feb, [place] [address] [place] [address] 03118- 1318 Feb, Hyperthyroidism E05.90 [facility] [address], [place] [address]- 1634 Feb, Hyperthyroidism E05.90 [place] [address] [place] [address] 67176- 8461 Feb, [place] [address] [place] [address] 549206- 3339 Jan, [place] [address] [place] [address] 889831- 1330 16 Dec, 2014 Nicotine addiction 305.1 [facility] [address], [place] [address]- 3070 Oct, Nicotine abuse 305.1 [facility] [address], [place] [address]- 6240 Oct, [facility] [address], [place] [address]- 6555 August, [facility] [address] [place] [id number] August, History of drug abuse 305.93 and Diabetes 250.00 [facility] [address], [place] [address]- 6252 Jul, [facility] [address], [place] [address]- 4828 Jul, [facility] [address], [place] [address]- 6140 Jun, [facility] [address], [place] [address]- 9043 Jun, [facility] [address], [place] [address]- 3156 Jun, [facility] [address], [place] [address]- 2465 Jun, [facility] [address], [place] [address]- 8972 Jun, [facility] [address], [place] [address]- 8899 Jun, [facility] [address] 6674 May, [facility] [address]- 4453 May, [facility] [id number] 1459 May, [facility] [place] [facility] [address] [id number] [place] [address]- 1751 May, [facility] [address] [id number] [place] [address]- 8918 May, [facility] [address] [id number] [place] [address]- 7568 Apr, [facility] [address] [id number] [place] [address]- 0024 Apr, [facility] [address] [facility] [id number] Apr, [facility] [address] [id number] [place] [address]- 0824 Apr, [facility] [address] [id number] [place] [address]- 4690 Apr, [facility] [address] [id number] [place] [address]- 3972 Apr, [facility] [address] [id number] [place] [address]- 2098 Apr, [facility] [address] [id number] [place] [address]- 9170 Apr, [facility] [address] [id number] [place] [address]- 2656 Mar, [facility] [place] [facility] [address] [id number] [place] [address]- 4542 Mar, [facility] [place] [facility] [address] [id number] [place] [address]- 9150 Mar, [facility] [place] [facility] [address] [id number] [place] [address]- 9743 Mar, [facility] [place] [facility] [address] [id number] [place] [address]- 2546 Mar, [facility] [place] [facility] [address] [id number] [place] [address]- 0626 Mar, [facility] [place] [facility] [address] [id number] [place] [address]- 0277 Mar, [facility] [place] [facility] [address] [id number] [place] 1830 Mar, [facility] [place] [facility] [address] [id number] [place] 8536 Feb, [facility] [place] [facility] [address] [id number] [place] [address]- 6233 Feb, [facility] [place] [facility] [address] [id number] [place] [address]- 8462 Feb, [facility] [place] [facility] [address] [id number] [place] [address]- 3279 Feb, [facility] [place] [facility] [address] [id number] [place] [address]- 9881 Feb, [facility] [address] [place] [id number] Feb, [facility] [place] [facility] [address] [id number] [place] [address]- 0229 Feb, [facility] [place] [facility] [address] [id number] [place] [address]- 7573 Feb, [facility] [place] [facility] [address] [id number] [place] [address]- 2789 Feb, [facility] [place] [facility] [address] [id number] [place] [address]- 9252 Feb, [facility] [place] [facility] [address] [id number] [place] [address]- 2967 Jan, [facility] [place] [facility] [address] [id number] [place] [address]- 2976 Jan, [facility] [place] [facility] [address] [id number] [place] [address]- 7242 Jan, [facility] [place] [facility] [address] [id number] [place] [address]- 1660 17 Jan, 2014 [facility] [place] [facility] [address] [id number] [place] [address]- 7832 16 Jan, 2014 [facility] [place] [facility] [address] [id number] [place] 6047 16 Jan, 2014 [facility] [place] [facility] [address] [id number] [place] [address]- 2838 15 Jan, 2014 [facility] [place] [facility] [address] [id number] [place] [address]- 6970 Jan, [facility] [place] [facility] [address] [id number] [place] [address]- 8178 Jan, [facility] [place] [facility] [address] [id number] [place] [address]- 2954 Jan, [facility] [place] [facility] [address] [id number] [place] [address]- 8344 Jan, [facility] [place] [facility] [address] [id number] [place] [address]- 1900 Jan, [facility] [place] [facility] [address] [id number] [place] [address]- 3218 Jan, [facility] [place] [facility] [address] [id number] [place] [address]- 0358 Jan, [facility] [place] [facility] [address] [id number], [place] [address]- 4862 08 Jan, 2014 [facility] [place] [facility] [address] [id number], [place] [address]- 0540 Jan, [facility] [place] [facility] [address] [id number] [place] [address]- 5[address] Jan, [facility] [place] [facility] [address] [id number], [place] [address] Dec, [facility] [place] [facility] [address] [id number] [place] [address] 19 Dec, 2013 [facility] [place] [facility] [address] [id number] [place] [address] 11 Dec, 2013 [facility] [place] [facility] [address] [id number] [place] [address] 11 Dec, 2013 [facility] [place] [facility] [address] [id number] [place] [address] 09 Dec, 2013 [facility] [place] [facility] [address] [id number] [place] [address] 09 Sep, 2013 [facility] [place] [facility] [address] [id number] [place] [address] 08 Dec, 2013 [facility] [place] [facility] [address] [id number] [place] [address] 08 Dec, 2013 [facility] [place] [facility] [address] [id number] [place] [address] 08 Dec, 2013 [facility] [place] [facility] [address] [id number] [place] [address]- [address] 08 Dec, 2013 [facility] [place] [facility] [address] [id number] [place] [address] 05 Dec, 2013 [facility] [place] [facility] [address] [id number] [place] [address] Dec, 2013 [facility] [place] [facility] [address] [id number] [place] [address] Dec, 2013 [facility] [place] [facility] [address] [id number] [place] [address] Dec, 2013 [facility] [place] [facility] [address] [id number] [place] [address] Nov, [facility] [place] [facility] [address] [id number] [place] [address] Nov, [facility] [place] [facility] [address] [id number] [place] [address]- [address] Nov, [facility] [place] [facility] [address] [id number] [place] [address]- [address] Nov, [facility] [place] [facility] [address] [id number] [place] [address] Nov, [facility] [place] [facility] [address] [id number] [place] [address] Nov, [facility] [place] [facility] [address] [id number] [place] [address] Nov, [facility] [place] [facility] [address] [id number] [place] [address] Nov, [facility] [place] [facility] [address] [id number] [place] [address] Nov, [facility] [place] [facility] [address] [id number] [place] [address] 2204 Nov, [facility] [place] [facility] [address] [id number] [place] [address] 6386 Nov, [facility] [place] [facility] [address] [id number] [place] [address]- 7976 Nov, [facility] [place] [facility] [address] [id number] [place] [address]- 1448 Nov, [facility] [place] [facility] [address] [id number] [place] [address] 4153 Nov, [facility] [place] [facility] [address] [id number] [place] [address] 8233 Oct, [facility] [place] [facility] [address] [id number] [place] [address] 2906 Oct, [facility] [place] [facility] [address] [id number] [place] [address]- 8565 Oct, [facility] [place] [facility] [address] [id number] [place] [address]- 0065 Oct, [facility] [place] [facility] [address] [id number] [place] [address]- 9923 Oct, [facility] [place] [facility] [address] [id number] [place] [address]- 7407 Oct, 2013 [facility] [place] [facility] [address] [id number] [place] [address]- 1426 Oct, 2013 [facility] [place] [facility] [address] [id number] [place] [address]- 9196 Oct, [facility] [place] [facility] [address] [id number] [place] [address]- 6546 Oct, 2013 [facility] [place] [facility] [address] [id number] [place] [address]- 7679 Oct, [facility] [place] [facility] [address] [id number] [place] [address]- 0797 Oct, [facility] [place] [facility] [address] [id number] [place] [address]- 8804 Oct, [facility] [place] [facility] [address] [id number] [place] [address]- 4741 Oct, [facility] [place] [facility] [address] [id number] [place] [address]- 0263 Oct, [facility] [place] [facility] [address] [id number] [place] [address]- 7569 Oct, [facility] [place] [facility] [address] [id number] [place] [address]- 9430 Oct, [facility] [place] [facility] [address] [id number] [place] [address]- 4910 Oct, [facility] [place] [facility] [address] [id number] [place] [address]- 3705 Oct, [facility] [place] [facility] [address] [id number] [place] [address]- 4628 Oct, [facility] [place] [facility] [address] [id number] [place] [address]- 7920 Oct, [facility] [place] [facility] [address] [id number] [place] [address]- 0883 Sep, [facility] [place] [facility] [address] [id number] [place] [address]- 1413 Sep, [facility] [place] [facility] [address] [id number] [place] [address]- 9805 Sep, [facility] [place] [facility] [address] [id number] [place] [address]- 9852 Sep, [facility] [place] [facility] [address] [id number] [place] [address]- 7936 Sep, [facility] [place] [facility] [address] [id number] [place] [address]- 5609 Sep, [facility] [place] [facility] [address] [id number] [place] [address]- 4843 August, [facility] [place] [facility] [address] [id number] [place] [address]- 7947 August, [facility] [place] [facility] [address] [id number] [place] [address]- 5138 Jul, [facility] [place] [facility] [address] [id number] [place] [address]- 9391 Jul, [facility] [place] [facility] [address] [id number] [place] [address]- 9449 Jul, [facility] [place] [facility] [address] [id number] [place] [address]- 7314 Jul, [facility] [place] [facility] [address] [id number] [place] [address]- 2664 Jul, [facility] [place] [facility] [address] [id number] [place] [address]- 2519 Jul, [facility] [place] [facility] [address] [id number] [place] [address]- 4243 Jul, [facility] [place] [facility] [address] [id number] [place] [address]- 9056 Jul, [facility] [place] [facility] [address] [id number] [place] [address]- 3421 Jun, [facility] [place] [facility] [address] [id number] [place] [address]- 0906 Jun, [facility] [place] [facility] [address] [id number] [place] [address]- 6828 Jun, [facility] [place] [facility] [address] [facility] [id number] [place] [address]- 0589 Jun, [facility] [place] [facility] [address] [id number] [place] [address]- 9085 Jun, [facility] [place] [facility] [address] [id number] [place] [address]- 7359 May, [facility] [place] [facility] [address] [id number] [place] [address]- 8414 May, [facility] [place] [facility] [address] [id number] [place] [address]- 9069 May, [facility] [place] [facility] [address] [id number] [place] [address]- 6620 May, [facility] [place] [facility] [address] [id number] [place] [address]- 4867 May, [facility] [place] [facility] [address] [facility] [id number] [place] [address]- 6993 May, [facility] [place] [facility] [address] [facility] [id number] [place] [address]- 5229 May, [facility] [place] [facility] [address] [facility] [id number] [place] [address]- 9752 May, [facility] [place] [facility] [address] [facility] [id number] [place] [address]- 6035 07 May, 2013 [facility] [place] [facility] [address] [facility] [id number] [place] [address]- 7836 07 May, 2013 [facility] [place] [facility] [address] [facility] [id number] [place] [address]- 8855 06 May, 2013 [facility] [place] [facility] [address] [id number] [place] [address]- 2061 Apr, [facility] [place] [facility] [address] [id number] [place] [address]- 9087 Apr, [facility] [place] [facility] [address] [id number] [place] [address]- 1710 Mar, [facility] [place] [facility] [address] [id number] [place] [address]- 5526 Mar, [facility] [place] [facility] [address] [id number] [place] [address]- 8551 Mar, [facility] [place] [facility] [address] [id number] [place] [address]- 9121 Mar, [facility] [place] [facility] [address] [id number] [place] [address]- 6852 Mar, [facility] [place] [facility] [address] [id number] [place] [address]- 1253 Jan, [facility] [place] [facility] [address] [id number] [place] [address]- 2939 Jan, [facility] [place] [facility] [address] [id number] [place] [address]- 4149 Jan, [facility] [place] [facility] [address] [id number] [place] [address]- 2410 Jan, [facility] [place] [facility] [address] [id number], [place] [address]- 7352 Jan, [facility] [place] [facility] [address] [id number] [place] [address]- 6738 Jan, [facility] [place] [facility] [address] [id number] [place] [address]- 1340 Jan, [facility] [place] [facility] [address] [id number] [place] [address]- 2855 Jan, [facility] [place] [facility] [address] [id number] [place] [address]- 5315 Jan, [facility] [address] [id number] [place] [address]- 7342 Jan, [facility] [place] [facility] [address] [id number] [place] [address]- 8616 Dec, [facility] [address] [id number] [place] [address]- 0097 Oct, [facility] [place] [facility] [address] [id number] [place] [address]- 8251 Oct, [facility] [address] [id number] [place] [address]- 7856 Oct, [facility] [address] [id number] [place] [address]- 1756 Oct, [facility] [address] [id number] [place] [address]- 2573 Oct, [facility] [place] [facility] [address] [id number] [place] [address]- 8388 Oct, [facility] [address] [id number] [place] [address]- 6324 Sep, [facility] [place] [facility] [address] [id number] [place] [address]- 9468 August, [facility] [place] [facility] [address] [id number] [place] [address]- 6550 August, [facility] [place] [facility] [address] [id number] [place] [address] 2549 August, [facility] [place] [facility] [address] [id number] [place] [address]- 2696 August, [facility] [place] [facility] [address] [id number] [place] [address]- 1388 August, [facility] [place] [facility] [address] [id number] [place] [address]- 2546 May, [facility] [place] [facility] [address] [id number] [place] [address]- 2146 15 Apr, 2012 [facility] [address] [id number] [place] [address]- 1286 Apr, [facility] [address] [id number] [place] [address]- 2526 Apr, [facility] [address] [id number] [place] [address]- 1782 Apr, [facility] [address] [id number] [place] [address]- 4132 Apr, [facility] [address] [place] [id number] Mar, [facility] [address] [id number] [place] [address]- 1966 31 Mar, 2012 [facility] [address] [id number] [place] [address]- 2918 19 Mar, 2012 [facility] [address] [id number] [place] [address]- 1222 19 Mar, 2012 [facility] [address] [id number] [place] [address]- 7022 17 Mar, 2012 [facility] [address] [id number] [place] [address]- 0648 17 Mar, 2012 [facility] [address] [id number] [place] [address]- 7886 13 Mar, 2012 [facility] [address] [id number] [place] [address]- 9373 13 Mar, 2012 [facility] [address] [id number] [place] [address]- 7856 13 Mar, 2012 [facility] [address] [id number] [place] [address]- 0609 13 Mar, 2012 [facility] [address] [id number] [place] [address]- 1159 12 Mar, 2012 [facility] [place] [facility] [address] [id number] [place] [address]- 9513 Mar, [facility] [place] [facility] [address] [id number] [place] [address]- 8306 Mar, [facility] [place] [facility] [address] [id number] [place] Mar, [facility] [place] [facility] [address] [id number] [place] [address]- 8276 Mar, [facility] [place] [facility] [address] [id number] [place] [address]- 1545 Mar, [facility] [place] [facility] [address] [id number] [place] [address]- 3218 Mar, [facility] [place] [facility] [address] [id number] [place] [address]- 4378 Mar, [facility] [place] [facility] [address] [id number] [place] [address]- 8787 Mar, [facility] [place] [facility] [address] [id number] [place] [address]- 8606 Mar, [facility] [place] [facility] [address] [id number] [place] [address]- 6026 Feb, [facility] [place] [facility] [address] [id number] [place] [address]- 2622 Feb, [facility] [place] [facility] [address] [id number] [place] [address]- 9462 Feb, [facility] [place] [facility] [address] [id number] [place] [address]- 2356 Feb, [facility] [place] [facility] [address] [id number] [place] [address]- 0216 Jan, [facility] [place] [facility] [address] [id number] [place] [address]- 2002 Jan, [facility] [place] [facility] [address] [id number] [place] [address]- 0679 Jan, [facility] [place] [facility] [address] [id number] [place] [address]- 2455 29 Jan, 2012 [facility] [place] [facility] [address] [id number] [place] [address]- 4186 29 Jan, 2012 [facility] [place] [facility] [address] [id number] [place] [address]- 4416 Jan, [facility] [place] [facility] [address] [id number] [place] [address]- 0875 Jan, [facility] [place] [facility] [address] [id number] [place] [address]- 7478 Jan, [facility] [place] [facility] [address] [id number] [place] [address]- 4710 Jan, [facility] [place] [facility] [address] [id number] [place] [address]- 8344 27 Dec, 2011 [facility] [place] [facility] [address] [id number], [place] [address]- 7553 14 Dec, 2011 [facility] [place] [facility] [address] [id number] [place] [address]- 7745 12 Dec, 2011 [facility] [place] [facility] [address] [id number] [place] [address]- 7498 06 Dec, 2011 [facility] [place] [facility] [address] [id number], [place] [address]- 5855 06 Dec, 2011 [facility] [place] [facility] [address] [id number], [place] [address]- 6341 Nov, [facility] [place] [facility] [address] [id number] [place] [address]- 9804 Nov, [facility] [place] [facility] [address] [id number], [place] [address]- 6893 Nov, [facility] [place] [facility] [address] [id number], [place] [address]- 2157 14 Nov, 2011 [facility] [place] [facility] [address] [id number] [place] [address]- 8592 13 Nov, 2011 [facility] [place] [facility] [address] [id number] [place] [address]- 6569 09 Nov, 2011 [facility] [place] [facility] [address] [id number] [place] [address]- 5384 Nov, [facility] [place] [facility] [address] [id number] [place] [address]- 4671 Nov, [facility] [place] [facility] [address] [id number] [place] [address]- 7350 Nov, [facility] [place] [facility] [address] [id number] [place] [address]- 6646 Oct, [facility] [place] [facility] [address] [id number] [place] [address]- 5638 Oct, [facility] [place] [facility] [address] [id number] [place] [address]- 2617 Sep, [facility] [place] [facility] [address] [id number] [place] [address]- 0136 Sep, [facility] [place] [facility] [address] [id number] [place] [address]- 8221 Sep, [facility] [place] [facility] [address] [id number] [place] [address]- 5514 August, [facility] [place] [facility] [address] [id number] [place] [address]- 8693 30 Jul, 2011 [facility] [place] [facility] [address] [id number] [place] [address]- 9689 27 Jul, 2011 [facility] [place] [facility] [address] [id number] [place] [address]- 1979 27 Jul, 2011 [facility] [place] [facility] [address] [id number] [place] [address]- 5199 18 Jul, 2011 [facility] [place] [facility] [address] [id number] [place] [address]- 0383 16 Jul, 2011 [facility] [place] [facility] [address] [id number] [place] [address]- 9567 16 Jul, 2011 [facility] [place] [facility] [address] [id number] [place] [address]- 4338 16 Jul, 2011 [facility] [place] [facility] [address] [id number] [place] [address]- 3789 14 Jul, 2011 [facility] [place] [facility] [address] [id number] [place] [address]- 5340 12 Jul, 2011 [facility] [place] [facility] [address] [id number] [place] [address]- 4068 19 Jun, 2011 [facility] [place] [facility] [address] [id number] [place] [address]- 4166 18 Jun, 2011 [facility] [place] [facility] [address] [id number] [place] [address]- 3572 15 Jun, 2011 [facility] [place] [facility] [address] [id number] [place] [address]- 4515 Jun, [facility] [place] [facility] [address] [id number] [place] [address]- 9268 Jun, [facility] [place] [facility] [address] [id number] [place] [address]- 0252 Jun, [facility] [place] [facility] [address] [id number] [place] [address]- 3641 Jun, [facility] [place] [facility] [address] [id number] [place] [address]- 3600 Jun, [facility] [place] [facility] [address] [id number] [place] [address]- 8128 May, [facility] [place] [facility] [address] [id number] [place] [address]- 7036 May, [facility] [place] [facility] [address] [id number] [place] [address]- 1636 May, [facility] [place] [facility] [address] [id number], [place] [address]- 3126 Apr, [facility] [address] [id number] [place] [address]- 5820 Apr, [facility] [address] [id number] [place] [address]- 9714 Apr, [facility] [address] [facility] [id number] [place] [address]- 3166 Mar, [facility] [address] [id number] [place] [address]- 2719 Mar, [facility] [address] [id number] [place] [address]- 4887 15 Mar, 2011 [facility] [address] [id number] [place] [address]- 4192 Mar, [facility] [address] [facility] [id number] [place] [address]- 4365 Mar, [facility] [address] [id number] [place] [address]- 0055 Mar, [facility] [address] [id number] [place] [address]- 6283 Mar, [facility] [address] [facility] [id number] [place] [address]- 0459 Mar, [facility] [address] [id number] [place] [address]- 3410 08 Mar, 2011 [facility] [place] [facility] [address] [id number], [place] [address]- 2585 Mar, [facility] [place] [facility] [address] [id number] [place] [address]- 6420 06 Mar, 2011 [facility] [place] [facility] [address] [id number] [place] [address]- 7844 06 Mar, 2011 [facility] [address] [facility] [id number] [place] [address]- 9560 06 Mar, 2011 [facility] [place] [facility] [address] [id number] [place] [address]- 8398 05 Mar, 2011 [facility] [place] [facility] [address] [id number] [place] [address]- 3637 Feb, [facility] [place] [facility] [address] [id number] [place] [address]- 6000 Feb, [facility] [place] [facility] [address] [id number] [place] [address]- 1479 Feb, [facility] [place] [facility] [address] [id number] [place] [address]- 2773 Jan, [facility] [place] [facility] [address] [id number] [place] [address] Jan, [facility] [place] [facility] [address] [id number] [place] [address] Oct, [facility] [place] [facility] [address] [id number] [place] [address] Sep, [facility] [place] [facility] [address] [id number] [place] [address] Mar, [facility] [place] [facility] [address] [id number] [place] [address] Mar, [facility] [place] [facility] [address] [id number] [place] [address] Feb, [facility] [place] [facility] [address] [id number] [place] [address] Feb, [facility] [place] [facility] [address] [id number] [place] [address] Jan, [facility] [place] [facility] [address] [id number] [place] [address] Jan, [facility] [place] [facility] [address] [id number] [place] [address] Mar, [facility] [place] [facility] [address] [id number] [place] [address] Feb, [facility] [address] [facility] [id number], [place] [address] Feb, [facility] [id number], [place] [address] Feb, [facility] [address] [id number], [place] [address] Feb, [facility] [id number], [place] [address] Jan, [facility] [id number], [place] [address] Dec, [facility] [address] [id number], [place] [address] Nov, IMMUNIZATIONS No Known Immunizations SOCIAL HISTORY Never Assessed REASON FOR VISIT change pain meds PLAN OF CARE VITAL SIGNS MEDICATIONS Medication Instructions Dosage Frequency Start Date End Date Duration Status Oxycodone-Ibuprofen 5-400 MG Orally 3 times a day for 20 days 1 tablet May, May, Active RESULTS No Results PROCEDURES No Known procedures INSTRUCTIONS MEDICATIONS ADMINISTERED No Known Medications MEDICAL (GENERAL) HISTORY Type Description Date Hospitalization History [facility] March 2015
--- OUTSIDE RECORDS SUMMARY | 2017-10-27 10:41 | XMS REPORT ---
Author Author STEPHANIE CHRISTIANSEN [facility] Address [address] [place] [address] Care Team Providers Care Academic Coach Name Role Phone STEPHANIE CHRISTIANSEN Unavailable PROBLEMS Type Condition ICD9-CM Code KVC93-TA Code Onset Dates Condition Status SNOMED Code Problem Hyperlipidemia, unspecified hyperlipidemia type E78.5 Active 66482876 Problem Long-term insulin use Z79.4 Active 125078500 Problem Abnormal carotid ultrasound R93.8 Active 090873040 Problem Type 2 diabetes mellitus with complication E11.8 Active 81737390 Problem Positive TB test R76.11 Active 610180728 Problem Vascular dementia with behavior disturbance F01.51 Active 343851580 Problem PVD (peripheral vascular disease) I73.9 Active 559784960 Problem Pain R52 Active 27320758 Problem Other chronic osteomyelitis of left foot M86.672 Active 971580135 Problem Nicotine dependence, unspecified, uncomplicated F17.200 Active 590318731 Problem Peripheral vascular disease due to secondary diabetes E13.51 Active 5657855 Problem Nonintractable epilepsy without status epilepticus, unspecified epilepsy type G40.909 Active 033777220 Problem Recurrent major depressive disorder, remission status unspecified F33.9 Active 44699580 Problem Anxiety F41.9 Active 42558601 Problem Generalized anxiety disorder F41.1 Active 23135542 Problem Vascular dementia F01.50 Active 774662829 Problem Pseudobulbar affect F48.2 Active 22338520 Problem Coronary artery disease involving [place] coronary artery of [place] heart without angina pectoris I25.10 Active 7920119363348 Problem Gastroesophageal reflux disease without esophagitis K21.9 Active 390779036 Problem Cerebrovascular accident (CVA) due to other mechanism I63.8 Active 096916817 Problem Pulmonary emphysema, unspecified emphysema type J43.9 Active 77071360 Problem Neuropathy G62.9 Active 227728103 Problem Depression F32.9 Active 68870280 Problem Essential hypertension I10 Active 25371128 Problem Acquired hypothyroidism E03.9 Active 680318642 ALLERGIES No Information ENCOUNTERS Encounter Location Date Diagnosis [facility] [address] [address] August, Generalized anxiety disorder F41.1 [facility] [id number] [place] [address] 87161- 5718 August, [facility] [address] [place] [id number] August, Type 2 diabetes mellitus with complication E11.8 ; Vascular dementia with behavior disturbance F01.51 ; Long-term insulin use Z79.4 and Nicotine dependence, unspecified, uncomplicated F17.200 [facility] [id number] [place] [address] 32435- 0840 August, Generalized anxiety disorder F41.1 [facility] [id number] [place] [address] 48710- 3419 Jul, Generalized anxiety disorder F41.1 [facility] [id number] [place] [address] [id number] Jun, Generalized anxiety disorder F41.1 [facility] [id number] [place] [address] [id number] Jun, [facility] [id number] [place] [address] [id number] May, [facility] [id number] [place] [address] 65004- 6838 May, [facility] [id number] [place] [address] [id number] May, Generalized anxiety disorder F41.1 [facility] [address] [place] [address] 94776- 8525 Apr, [facility] [address] [place] [id number] Apr, Other chronic osteomyelitis of left foot M86.672 ; Type 2 diabetes mellitus with complication E11.8 ; Vascular dementia F01.50 ; Long-term insulin use Z79.4 ; PVD (peripheral vascular disease) I73.9 and Nicotine abuse 305.1 [facility] [id number] [address] Apr, [facility] [id number] [place] [address] [id number] Apr, [facility] [id number] [place] [address] 14291- 0968 Apr, Pain R52 and Generalized anxiety disorder F41.1 [facility] [id number] [place] [address] 34175- 0878 Mar, [facility] [id number] [place] [address] 06277- 1665 Mar, Pain R52 and Generalized anxiety disorder F41.1 [facility] [address] [place] [id number] Feb, Depression F32.9 ; Type 2 diabetes mellitus with complication E11.8 and Nicotine dependence, unspecified, uncomplicated F17.200 [facility] [id number] [place] [address] 87855- 6270 Feb, Generalized anxiety disorder F41.1 and Pain R52 [facility] [id number] [place] [address] 38786- 8699 Feb, [facility] [id number] [place] [address] 81266- 3005 Jan, [facility] [id number] [place] [address] 90324- 4078 Jan, Generalized anxiety disorder F41.1 and Pain R52 [facility] [id number] [place] [address] 43794- 0721 Jan, [facility] [id number] [place] [address] [id number] Dec, Generalized anxiety disorder F41.1 and Pain R52 [facility] [address] [place] [id number] Dec, Vascular dementia F01.50 ; Pain of left leg M79.605 ; Pain in right leg M79.604 and Type 2 diabetes mellitus with complication E11.8 [facility] [address] [facility] [id number] [place] [address] 34660- 5162 Dec, Pain R52 [facility] [id number] [place] [address] 80321- 3216 Dec, [facility] [id number] [place] [address] 33723- 2724 Nov, [facility] [id number] [place] [address] 03252- 6315 Nov, Pain R52 and Generalized anxiety disorder F41.1 [facility] [address] [place] [id number] Nov, Depression F32.9 ; Vascular dementia with behavior disturbance F01.51 and Anxiety F41.9 [facility] [id number] [place] [address] 91828- 1692 Nov, Pain R52 and Generalized anxiety disorder F41.1 [facility] [id number] [place] [address] 81081- 7360 Oct, Generalized anxiety disorder F41.1 [facility] [id number] [place] [address] 06501- 4330 Oct, Pain R52 [facility] [id number] [place] [address] 56985- 3758 Sep, [facility] [address] [place] [id number] Sep, Generalized anxiety disorder F41.1 [facility] [address] [place] [address] 79669- 7061 Sep, Pain R52 [facility] [id number] [place] [address] 73476- 2124 Sep, Generalized anxiety disorder F41.1 [facility] [id number] [place] [address] 71878- 1237 August, [facility] [id number] [address] August, [facility] [id number] [place] [address] 38687- 7356 August, Pain R52 [facility] [id number] [place] [address] 94721- 2073 August, Generalized anxiety disorder F41.1 [facility] [id number] [place] [address] [id number] August, Generalized anxiety disorder F41.1 [facility] [id number] [place] [address] 46590- 8904 Jul, Pain R52 [facility] [id number] [place] [address] 50733- 4186 Jul, [facility] [id number] [place] [address] [id number] Jul, [facility] [id number] [place] [address] 55947- 8275 Jun, [facility] [id number] [place] [address] [id number] Jun, Depression F32.9 [facility] [id number] [place] [address] 17495- 4973 Jun, Pain R52 [facility] [address] [place] [address] 65156- 3045 Jun, [facility] [address] [place] [id number] Jun, Vascular dementia F01.50 and Depression F32.9 [facility] [address], [place] [address] 8197 May, Pain R52 [facility] [id number] [place] [address] 66908- 8371 May, [facility] [id number] [place] [address] 18103- 2584 May, Pseudobulbar affect F48.2 [facility] [address] [address] 1904 May, [facility] [id number] [place] [address] 41360- 8019 May, PVD (peripheral vascular disease) I73.9 [facility] [id number] [place] [address] 59689- 9940 May, Vascular dementia with behavior disturbance F01.51 [facility] [address] [place] [address] 93055- 3926 May, Vascular dementia with behavior disturbance F01.51 [facility] [id number] [place] [address] 61623- 9082 Apr, [facility] [id number] [place] [address] 31833- 8209 Apr, Pain R52 [facility] [address] [place] [id number] Apr, Generalized anxiety disorder F41.1 ; PVD (peripheral vascular disease) I73.9 and Type 2 diabetes mellitus with complication E11.8 [facility] [address] [place] [address] 89172- 6021 Apr, Vascular dementia with behavior disturbance F01.51 [facility] [id number] [place] [address] 78413- 3364 Apr, [facility] [id number] [place] [address] 98465- 2821 Apr, Vascular dementia with behavior disturbance F01.51 [facility] [id number] [place] [address] 93765- 4140 Apr, [facility] [id number] [place] [address] [id number] Mar, [facility] [id number] [place] [address] 25764- 8025 Mar, Type 2 diabetes mellitus with complication E11.8 ; Vascular dementia with behavior disturbance F01.51 and Depression F32.9 [facility] [address], [place] [address]- 2775 Mar, [facility] [id number] [place] [address] 33649- 9138 Feb, [facility] [id number] [place] [address] 64456- 6232 Feb, Viral illness B34.9 [facility] [id number] [place] [address] 81321- 2003 Jan, Diabetes 250.00 [facility] [id number] [place] [address] 73142- 5585 Jan, [facility] [id number] [place] [address] 08317- 5835 Jan, [facility] [id number] [place] [address] 83085- 1068 Jan, [facility] [address] [place] [id number] Jan, Vascular dementia with behavior disturbance F01.51 and Type 2 diabetes mellitus with complication E11.8 [facility] [address] [place] [address] 09554- 0598 Jan, Pain R52 [facility] [address] [address]- 4296 Jan, Pain R52 [facility] [id number] [place] [address] 89587- 5125 Dec, [facility] [address] [place] [address] 71560- 4608 Nov, [facility] [address] [place] [id number] Nov, Type 2 diabetes mellitus with complication E11.8 [facility] [address] [address]- 8466 Nov, [facility] [id number] [place] [address] 49734- 0803 Oct, [facility] [id number] [place] [address] 65363- 7444 Oct, [facility] [id number] [place] [address] 13080- 4833 Oct, Vascular dementia with behavior disturbance F01.51 and Type 2 diabetes mellitus with complication E11.8 [facility] [id number] [place] [address] 33781- 0481 August, Type 2 diabetes mellitus with complication E11.8 and Vascular dementia with behavior disturbance F01.51 [facility] [id number] [place] [address] 07990- 9086 August, Vascular dementia F01.50 [facility] [id number] [place] [address] 33075- 7487 August, Vascular dementia with behavior disturbance F01.51 [facility] [id number] [place] [address] 61977- 1762 Jul, Vascular dementia with behavior disturbance F01.51 [facility] [id number] [place] [address] 14606- 6318 Jun, Vascular dementia F01.50 [facility] [address] [place] [address] 69082- 2795 Jun, Type 2 diabetes mellitus with complication E11.8 ; Long- term insulin use Z79.4 and Vascular dementia with behavior disturbance F01.51 [facility] [address] [address]- 2553 Jun, Vascular dementia with behavior disturbance F01.51 [facility] [id number] [place] [address] 00867- 0155 Jun, Vascular dementia F01.50 [facility] [id number] [place] [address] 16769- 5516 Apr, [facility] [id number] [place] [address] 99929- 6456 Apr, [facility] [id number] [address]- 7348 Apr, [facility] [address], [place] [address]- 4826 Apr, Type 2 diabetes mellitus with complication E11.8 ; Depression F32.9 and Long-term insulin use Z79.4 [facility] [address], [place] [address]- 4356 Mar, [facility] [address] [place] [id number] Mar, Depression F32.9 ; Type 2 diabetes mellitus with complication E11.8 and Long-term insulin use Z79.4 [facility] [address] [address]- 2406 Feb, [facility] [address] [address]- 9845 Feb, Hyperthyroidism E05.90 [facility] [address], [place] [address]- 8492 Feb, Hyperthyroidism E05.90 [facility] [address] [address]- 1773 Feb, [facility] [id number] [address]- 6769 Jan, [facility] [id number] [address]- 3720 Dec, Nicotine addiction 305.1 [facility] [id number] [address]- 6432 Oct, Nicotine abuse 305.1 [facility] [id number] [address]- 0736 Oct, [facility] [id number] [address]- 6343 August, [facility] [address] [facility] [place] [id number] August, History of drug abuse 305.93 and Diabetes 250.00 [facility] [address] [facility] [id number] [place] [address]- 9778 14 Jul, 2014 [facility] [address] [facility] [id number] [place] [address]- [address] Jul, [facility] [address] [facility] [id number] [place] [address]- 1622 Jun, [facility] [address] [facility] [id number] [place] [address]- [address] Jun, [facility] [id number] [place] [address]- 8576 Jun, [facility] [id number] [place] [address]- 3547 Jun, [facility] [address], [place] [address]- 0418 Jun, [facility] [id number] [place] [address]- 9609 Jun, [facility] [address], [place] [address]- 5420 May, [facility] [address], [place] [address]- 9413 May, [facility] [address], [place] [address]- 6060 May, [facility] [address] [facility] [id number] [address]- 8601 May, [facility] [id number] 0568 May, [facility] [id number]- 0[address] Apr, [facility] [address], [place] [address]- 9222 Apr, [facility] [address] [facility] [id number] Apr, [facility] [address] [id number] [place] [address]- 2257 Apr, [facility] [address] [id number] [place] [address]- 2887 Apr, [facility] [address] [id number] [place] [address]- 7692 Apr, [facility] [place] [facility] [address] [id number] [place] [address]- 4745 Apr, [facility] [address] [id number] [place] [address]- 7006 Apr, [facility] [place] [facility] [address] [id number] [place] [address]- 5120 Mar, [facility] [place] [facility] [address] [id number] [place] [address]- 6552 Mar, [facility] [place] [facility] [address] [id number] [place] [address]- 2925 Mar, [facility] [place] [facility] [address] [id number] [place] [address]- 4690 Mar, [facility] [place] [facility] [address] [id number] [place] [address]- 7804 Mar, [facility] [place] [facility] [address] [id number] [address]- 7734 Mar, [facility] [place] [facility] [address] [id number] [place] [address]- 2611 Mar, [facility] [place] [facility] [address] [id number] [place] [address]- 5580 Mar, [facility] [place] [facility] [address] [id number] [place] [address]- 7375 Feb, [facility] [place] [facility] [address] [id number] [place] [address]- 3206 Feb, [facility] [place] [facility] [address] [id number] [place] [address]- 0836 Feb, [facility] [place] [facility] [address] [id number] [place] [address]- 6129 Feb, [facility] [place] [facility] [address] [id number] [place] [address]- 8095 Feb, [facility] [address] [place] [id number] Feb, [facility] [place] [facility] [address] [id number] [place] [address]- 4644 Feb, [facility] [place] [facility] [address] [id number] [place] [address]- 3810 Feb, [facility] [place] [facility] [address] [id number] [place] [address]- 0889 Feb, [facility] [place] [facility] [address] [id number] [place] [address]- 3495 Feb, [facility] [place] [facility] [address] [id number] [place] [address]- 9974 Jan, [facility] [place] [facility] [address] [id number] [place] [address]- 2226 30 Jan, 2014 [facility] [place] [facility] [address] [id number] [place] [address]- 3719 Jan, [facility] [place] [facility] [address] [id number] [address]- 0712 17 Jan, 2014 [facility] [place] [facility] [address] [id number] [place] [address]- 8373 16 Jan, 2014 [facility] [place] [facility] [address] [id number] [place] [address]- 6229 16 Jan, 2014 [facility] [place] [facility] [address] [id number] [place] [address]- 3974 15 Jan, 2014 [facility] [place] [facility] [address] [id number] [place] [address]- 9305 13 Jan, 2013 [facility] [place] [facility] [address] [id number] [place] [address]- 7271 Jan, 2013 [facility] [place] [facility] [address] [id number] [place] [address]- 1107 Jan, 2013 [facility] [place] [facility] [address] [id number] [place] [address]- 8348 Jan, 2013 [facility] [place] [facility] [address] [id number] [place] [address]- 2793 Jan, [facility] [place] [facility] [address] [id number] [place] [address]- 2276 Jan, [facility] [place] [facility] [address] [id number] [place] [address]- 6000 Jan, [facility] [place] [facility] [address] [id number] [place] [address]- 4539 Jan, [facility] [place] [facility] [address] [id number] [place] [address]- 4293 Jan, [facility] [place] [facility] [address] [id number] [place] [address]- 7939 Jan, [facility] [place] [facility] [address] [id number] [place] [address]- 3809 Dec, 2013 [facility] [place] [facility] [address] [id number] [place] [address] 19 Dec, 2013 [facility] [place] [facility] [address] [id number] [place] [address] 11 Dec, 2013 [facility] [place] [facility] [address] [id number] [place] [address] Dec, 2013 [facility] [place] [facility] [address] [id number] [place] [address] Dec, 2013 [facility] [place] [facility] [address] [id number] [place] [address] Dec, 2013 [facility] [place] [facility] [address] [id number] [place] [address] 08 Dec, 2013 [facility] [place] [facility] [address] [id number] [place] [address] Dec, 2013 [facility] [place] [facility] [address] [id number] [place] [address] Dec, 2013 [facility] [place] [facility] [address] [id number] [place] [address] Dec, 2013 [facility] [place] [facility] [address] [id number] [place] [address] Dec, 2013 [facility] [place] [facility] [address] [id number] [place] [address] Dec, 2013 [facility] [place] [facility] [address] [id number] [place] [address] Dec, 2013 [facility] [place] [facility] [address] [id number] [place] [address] Dec, 2013 [facility] [place] [facility] [address] [id number] [place] [address] Nov, [facility] [place] [facility] [address] [id number] [place] [address] Nov, [facility] [place] [facility] [address] [id number] [place] [address] Nov, [facility] [place] [facility] [address] [id number] [place] [address] Nov, [facility] [place] [facility] [address] [id number] [place] [address] Nov, [facility] [place] [facility] [address] [id number] [place] [address] Nov, [facility] [place] [facility] [address] [id number] [place] [address] Nov, [facility] [place] [facility] [address] [id number] [place] [address] Nov, [facility] [place] [facility] [address] [id number] [place] [address] Nov, [facility] [place] [facility] [address] [id number] [place] [address] Nov, [facility] [place] [facility] [address] [address] [id number] [place] [address] Nov, [facility] [place] [facility] [address] [id number] [place] [address]167 Nov, [facility] [place] [facility] [address] [id number] [place] [address] 2967 Nov, [facility] [place] [facility] [address] [id number] [place] [address]- 0705 Nov, [facility] [place] [facility] [address] [id number] [place] [address] 9209 Oct, [facility] [place] [facility] [address] [id number] [place] [address]- 0690 Oct, [facility] [place] [facility] [address] [id number] [place] [address]- 3226 Oct, [facility] [place] [facility] [address] [id number] [place] [address] 2877 Oct, [facility] [place] [facility] [address] [id number] [place] [address]- 2527 Oct, [facility] [place] [facility] [address] [id number] [place] [address]- 9994 Oct, [facility] [place] [facility] [address] [id number] [place] [address]- 9803 Oct, [facility] [place] [facility] [address] [id number] [place] [address]- 2457 Oct, [facility] [place] [facility] [address] [id number] [place] [address]- 2876 Oct, [facility] [place] [facility] [address] [id number] [place] [address]- 7989 Oct, [facility] [place] [facility] [address] [id number] [place] [address]- 7362 Oct, [facility] [place] [facility] [address] [id number] [place] [address]- 1106 Oct, [facility] [place] [facility] [address] [id number] [place] [address]- 0041 Oct, [facility] [place] [facility] [address] [id number] [place] [address]- 2892 Oct, [facility] [place] [facility] [address] [id number] [place] [address]- 0228 Oct, [facility] [place] [facility] [address] [id number] [place] [address]- 6810 Oct, [facility] [place] [facility] [address] [id number] [place] [address]- 9659 Oct, [facility] [place] [facility] [address] [id number] [place] [address]- 8057 Oct, [facility] [place] [facility] [address] [id number] [place] [address]- 0423 Oct, [facility] [place] [facility] [address] [id number] [place] [address]- 5046 Oct, [facility] [place] [facility] [address] [id number] [place] [address]- 9677 Sep, [facility] [place] [facility] [address] [id number] [place] [address]- 9622 Sep, [facility] [place] [facility] [address] [id number] [place] [address]- 3663 Sep, [facility] [place] [facility] [address] [id number] [place] [address]- 7826 Sep, [facility] [place] [facility] [address] [id number] [place] [address]- 2546 Sep, [facility] [place] [facility] [address] [id number] [place] [address]- 6686 Sep, [facility] [place] [facility] [address] [id number] [place] [address]- 4657 August, [facility] [place] [facility] [address] [id number] [place] [address]- 2066 August, [facility] [place] [facility] [address] [id number] [place] [address]- 2256 Jul, [facility] [place] [facility] [address] [id number] [place] [address]- 1917 Jul, [facility] [place] [facility] [address] [id number] [place] [address]- 8884 Jul, [facility] [place] [facility] [address] [id number] [place] [address]- 8775 Jul, [facility] [place] [facility] [address] [id number] [place] [address]- 5457 Jul, [facility] [place] [facility] [address] [id number] [place] [address]- 9221 Jul, [facility] [place] [facility] [address] [id number] [place] [address]- 9203 Jul, [facility] [place] [facility] [address] [id number] [place] [address]- 2052 Jul, [facility] [place] [facility] [address] [id number] [place] [address]- 8528 Jun, [facility] [place] [facility] [address] [id number] [place] [address]- 3242 Jun, [facility] [place] [facility] [address] [id number] [place] [address]- 4078 Jun, [facility] [place] [facility] [address] [id number] [place] [address]- 9484 Jun, [facility] [place] [facility] [address] [id number] [place] [address]- 7269 Jun, [facility] [place] [facility] [address] [id number] [place] [address]- 0918 May, [facility] [place] [facility] [address] [id number] [place] [address]- 6196 May, [facility] [place] [facility] [address] [id number] [place] [address]- 4141 May, [facility] [place] [facility] [address] [id number] [place] [address]- 1547 May, [facility] [place] [facility] [address] [id number] [place] [address]- 3882 May, [facility] [place] [facility] [address] [facility] [id number] [place] [address]- 1648 May, [facility] [place] [facility] [address] [facility] [id number] [place] [address]- 7748 May, [facility] [place] [facility] [address] [facility] [id number] [place] [address]- 2935 May, [facility] [place] [facility] [address] [facility] [id number] [place] [address]- 7505 May, [facility] [place] [facility] [address] [facility] [id number] [place] [address]- 9630 May, [facility] [place] [facility] [address] [facility] [id number], [place] [address]- 4037 May, [facility] [place] [facility] [address] [facility] [id number] [place] [address]- 9123 Apr, [facility] [place] [facility] [address] [id number] [place] [address]- 4942 Apr, [facility] [place] [facility] [address] [facility] [id number] [address]- 8180 Mar, [facility] [place] [facility] [address] [facility] [id number], [place] [address]- 4715 Mar, [facility] [place] [facility] [address] [id number] [place] [address]- 5369 Mar, [facility] [place] [facility] [address] [id number] [place] [address]- 7736 Mar, [facility] [place] [facility] [address] [id number] [place] [address]- 6152 Mar, [facility] [place] [facility] [address] [id number] [place] [address]- 1575 Jan, [facility] [place] [facility] [address] [id number] [place] [address]- 2546 Jan, [facility] [place] [facility] [address] [id number] [place] [address]- 4272 Jan, [facility] [place] [facility] [address] [facility] [id number] [place] [address]- 5368 Jan, [facility] [place] [facility] [address] [facility] [id number] [place] [address]- 7090 Jan, [facility] [place] [facility] [address] [facility] [id number] [place] [address]- 8623 Jan, [facility] [place] [facility] [address] [facility] [id number] [address]- 4064 Jan, [facility] [place] [facility] [address] [facility] [id number], [place] [address]- 6116 Jan, [facility] [place] [facility] [address] [facility] [id number], [place] [address]- 9595 Jan, [facility] [place] [facility] [address] [id number], [place] [address]- 7244 Jan, [facility] [place] [facility] [address] [facility] [id number], [place] [address]- 8423 Dec, [facility] [place] [facility] [address] [facility] [id number] [place] [address]- 0475 Oct, [facility] [place] [facility] [address] [id number] [place] [address]- 6165 Oct, [facility] [address] [id number] [place] [address]- 5952 Oct, [facility] [place] [facility] [address] [id number] [place] [address]- 6724 Oct, [facility] [address] [id number] [place] [address]- 9643 Oct, [facility] [place] [facility] [address] [id number] [place] [address]- 0237 Oct, [facility] [address] [id number] [place] [address]- 1970 Sep, [facility] [address] [id number] [place] [address]- [address] August, [facility] [address] [id number] [place] [address]- [address], [facility] [address] [id number] [place] [address]- [address], [facility] [address] [id number] [place] [address]- [address], [facility] [address] [id number] [place] [address]- 6315 August, [facility] [place] [facility] [address] [id number] [place] [address]- 9538 May, [facility] [place] [facility] [address] [id number] [place] [address]- 6396 Apr, [facility] [place] [facility] [address] [id number] [place] [address]- 3923 Apr, [facility] [place] [facility] [address] [id number] [place] [address]- 2546 Apr, [facility] [place] [facility] [address] [id number] [place] [address]- 2177 Apr, [facility] [address] [id number] [place] [address]- 8022 Apr, [facility] [address] [place] [id number] Mar, [facility] [address] [id number] [place] [address]- 4386 Mar, [facility] [address] [id number] [place] [address]- 0925 Mar, [facility] [address] [id number] [place] [address]- 3922 Mar, [facility] [address] [id number] [place] [address]- 3360 Mar, [facility] [address] [id number] [place] [address]- 6583 Mar, [facility] [address] [id number] [place] [address]- 0470 Mar, [facility] [address] [id number] [place] [address]- 8579 Mar, [facility] [address] [id number] [place] [address]- 4798 Mar, [facility] [address] [id number] [place] [address]- 6802 Mar, [facility] [address] [id number] [place] [address]- 5331 Mar, [facility] [address] [id number] [place] [address]- 7027 Mar, [facility] [address] [id number] [place] [address]- 8768 Mar, [facility] [address] [id number] [place] 5837 Mar, [facility] [address] [id number], [place] [address]- 0463 Mar, [facility] [place] [facility] [address] [id number] [place] [address]- 9024 Mar, [facility] [place] [facility] [address] [id number] [place] [address]82 Mar, [facility] [place] [facility] [address] [id number] [place] [address]- 4718 Mar, [facility] [place] [facility] [address] [id number] [place] [address]- 1975 Mar, [facility] [place] [facility] [address] [id number] [place] [address]- 3950 Mar, [facility] [place] [facility] [address] [id number] [place] [address]- 3258 Feb, [facility] [place] [facility] [address] [id number] [place] [address]- 0545 Feb, [facility] [place] [facility] [address] [id number], [place] [address]- 7546 Feb, [facility] [place] [facility] [address] [id number], [place] [address]- 4661 Feb, [facility] [place] [facility] [address] [id number], [place] [address]- 9297 Jan, [facility] [place] [facility] [address] [id number], [place] [address]- 1750 Jan, [facility] [place] [facility] [address] [id number], [place] [address]- 5646 Jan, [facility] [place] [facility] [address] [id number], [place] [address]- 2998 Jan, [facility] [place] [facility] [address] [facility] [id number], [place] [address]- 1429 Jan, [facility] [place] [facility] [address] [id number] [place] [address]- 0498 Jan, [facility] [place] [facility] [address] [id number] [place] [address]- 4620 12 Jan, 2012 [facility] [place] [facility] [address] [id number] [place] [address]- 7846 12 Jan, 2012 [facility] [place] [facility] [address] [id number] [place] [address]- 8126 10 Jan, 2012 [facility] [place] [facility] [address] [id number] [place] [address]- 0342 27 Dec, 2011 [facility] [place] [facility] [address] [id number] [place] [address]- 1935 14 Dec, 2011 [facility] [place] [facility] [address] [id number] [place] [address]- 4976 12 Dec, 2011 [facility] [place] [facility] [address] [id number] [place] [address]- 4427 06 Dec, 2011 [facility] [place] [facility] [address] [id number] [place] [address]- 9947 06 Dec, 2011 [facility] [place] [facility] [address] [id number] [place] [address]- 5885 Nov, [facility] [place] [facility] [address] [id number] [place] [address]- 3747 Nov, [facility] [place] [facility] [address] [id number] [place] [address]- 9456 23 Nov, 2011 [facility] [place] [facility] [address] [id number] [place] [address]- 8456 14 Nov, 2011 [facility] [place] [facility] [address] [id number] [place] [address]- 0333 13 Nov, 2011 [facility] [place] [facility] [address] [id number] [place] [address]- 7600 Nov, [facility] [place] [facility] [address] [id number] [place] [address]- 0243 08 Nov, 2011 [facility] [place] [facility] [address] [id number] [place] [address]- 2298 Nov, [facility] [place] [facility] [address] [id number] [place] [address]- 2592 Nov, [facility] [place] [facility] [address] [id number] [place] [address]- 2846 19 Oct, 2011 [facility] [place] [facility] [address] [id number] [place] [address]- 0560 13 Oct, 2011 [facility] [place] [facility] [address] [id number] [place] [address]- 8183 Sep, [facility] [place] [facility] [address] [id number] [place] [address]- 1514 Sep, [facility] [place] [facility] [address] [id number] [place] [address]- 5120 Sep, [facility] [place] [facility] [address] [id number] [place] [address]- 9781 August, [facility] [place] [facility] [address] [id number] [place] [address]- 9888 30 Jul, 2011 [facility] [place] [facility] [address] [id number] [place] [address]- 4004 27 Jul, 2011 [facility] [place] [facility] [address] [id number] [place] [address]- 5135 27 Jul, 2011 [facility] [place] [facility] [address] [id number] [place] [address]- 1420 18 Jul, 2011 [facility] [place] [facility] [address] [id number] [place] [address]- 5681 16 Jul, 2011 [facility] [place] [facility] [address] [id number] [place] [address]- 9720 16 Jul, 2011 [facility] [place] [facility] [address] [id number] [place] [address]- 2635 16 Jul, 2011 [facility] [place] [facility] [address] [id number] [place] [address]- 9065 14 Jul, 2011 [facility] [place] [facility] [address] [id number] [place] [address]- 9265 12 Jul, 2011 [facility] [address] [id number] [place] [address]- 7002 Jun, [facility] [place] [facility] [address] [id number] [place] [address]- 5299 18 Jun, 2011 [facility] [place] [facility] [address] [id number] [place] [address]- 3806 15 Jun, 2011 [facility] [place] [facility] [address] [id number] [place] [address]- 0808 12 Jun, 2011 [facility] [place] [facility] [address] [id number] [place] [address]- 3948 Jun, [facility] [place] [facility] [address] [id number] [place] [address]- 0040 Jun, [facility] [address] [id number] [place] [address]- 2011 Jun, [facility] [place] [facility] [address] [id number] [place] [address]- 4557 Jun, [facility] [place] [facility] [address] [id number] [place] [address]- 2579 May, [facility] [place] [facility] [address] [id number] [place] [address]- 5198 May, [facility] [place] [facility] [address] [id number] [place] [address]- 4798 May, [facility] [place] [facility] [address] [id number] [place] [address]- 1777 Apr, [facility] [place] [facility] [address] [id number] [place] [address]- 3049 Apr, [facility] [place] [facility] [address] [id number] [place] [address]- 7306 Apr, [facility] [place] [facility] [address] [id number] [place] [address]- 2421 Mar, [facility] [place] [facility] [address] [id number] [place] [address]- 4104 Mar, [facility] [address] [id number] [place] [address]506 Mar, [facility] [address] [id number] [place] [address]- 4276 Mar, [facility] [address] [id number] [place] [address]- 0041 Mar, [facility] [address] [id number] [place] [address]- 9350 Mar, [facility] [address] [id number] [place] [address]- 9911 Mar, [facility] [address] [id number] [place] [address]- 8712 Mar, [facility] [address] [id number] [place] [address]- 1371 Mar, [facility] [address] [id number] [place] [address]- 2058 Mar, [facility] [address] [id number] [place] [address]- 8235 Mar, [facility] [place] [facility] [address] [id number] [place] [address]- 7996 Mar, [facility] [place] [facility] [address] [id number] [place] [address]- 8805 Mar, [facility] [place] [facility] [address] [id number] [place] [address]- 8642 Mar, [facility] [place] [facility] [address] [id number] [place] [address]- 7784 Feb, [facility] [place] [facility] [address] [id number] [place] [address]- 4742 Feb, [facility] [place] [facility] [address] [id number] [place] [address]- 5662 14 Feb, 2011 [facility] [place] [facility] [address] [id number] [place] [address]- 8144 29 Jan, 2011 [facility] [place] [facility] [address] [id number] [place] [address]- 7666 Jan, [facility] [place] [facility] [address] [id number] [place] [address] Oct, [facility] [place] [facility] [address] [id number] [place] [address] Sep, [facility] [place] [facility] [address] [id number] [place] [address] Mar, [facility] [place] [facility] [address] [id number] [place] [address] Mar, [facility] [place] [facility] [address] [id number] [place] [address] Feb, [facility] [place] [facility] [address] [id number] [place] [address] Feb, [facility] [place] [facility] [address] [id number] [place] [address] Jan, [facility] [place] [facility] [address] [id number] [place] [address] Jan, [facility] [place] [facility] [address] [id number] [address] Mar, [facility] [place] [facility] [address] [id number], [place] [address] Feb, [facility] [place] [facility] [address] [id number] [place] [address] Feb, [facility] [place] [facility] [address] [id number] [place] [address] Feb, [facility] [place] [facility] [address] [id number] [place] [address] Feb, [facility] [place] [facility] [address] [facility] [id number] [place] [address] Jan, [facility] [address] [facility] [id number], [place] [address] Dec, [facility] [address] [facility] [id number] [place] [address] Nov, IMMUNIZATIONS No Known Immunizations SOCIAL HISTORY [...] HISTORY Type Description Date Hospitalization History [facility] March 2015
--- OUTSIDE RECORDS SUMMARY | 2017-10-27 10:42 | XMS REPORT ---
Author Author STEPHANIE CHRISTIANSEN [facility] Address [address] [place] [address] Care Team Providers Care Commercial Sales Specialist Name Role Phone STEPHANIE CHRISTIANSEN Unavailable PROBLEMS Type Condition ICD9-CM Code SOP96-FL Code Onset Dates Condition Status SNOMED Code Problem Hyperlipidemia, unspecified hyperlipidemia type E78.5 Active 37823980 Problem Long-term insulin use Z79.4 Active 887843277 Problem Abnormal carotid ultrasound R93.8 Active 001407782 Problem Type 2 diabetes mellitus with complication E11.8 Active 70773261 Problem Positive TB test R76.11 Active 183634373 Problem Vascular dementia with behavior disturbance F01.51 Active 427389595 Problem PVD (peripheral vascular disease) I73.9 Active 498104803 Problem Pain R52 Active 64750841 Problem Other chronic osteomyelitis of left foot M86.672 Active 828122250 Problem Nicotine dependence, unspecified, uncomplicated F17.200 Active 774296229 Problem Peripheral vascular disease due to secondary diabetes E13.51 Active 4048574 Problem Nonintractable epilepsy without status epilepticus, unspecified epilepsy type G40.909 Active 579400456 Problem Recurrent major depressive disorder, remission status unspecified F33.9 Active 52036539 Problem Anxiety F41.9 Active 59429956 Problem Generalized anxiety disorder F41.1 Active 67216264 Problem Vascular dementia F01.50 Active 252564202 Problem Pseudobulbar affect F48.2 Active 69983527 Problem Coronary artery disease involving [place] coronary artery of [place] heart without angina pectoris I25.10 Active 4772228242355 Problem Gastroesophageal reflux disease without esophagitis K21.9 Active 079270607 Problem Cerebrovascular accident (CVA) due to other mechanism I63.8 Active 169205788 Problem Pulmonary emphysema, unspecified emphysema type J43.9 Active 87287912 Problem Neuropathy G62.9 Active 038123798 Problem Depression F32.9 Active 00369209 Problem Essential hypertension I10 Active 14095785 Problem Acquired hypothyroidism E03.9 Active 650024779 ALLERGIES No Information ENCOUNTERS Encounter Location Date Diagnosis [facility] [address] [address] Sep, [facility] [id number] [place] [address] 56637- 4496 Sep, Type 2 diabetes mellitus with complication E11.8 [facility] [id number] [place] [address] 17801- 8896 August, Generalized anxiety disorder F41.1 [place] [id number] [place] [address] 59336- 2271 August, [facility] [address] [place] [id number] August, Type 2 diabetes mellitus with complication E11.8 ; Vascular dementia with behavior disturbance F01.51 ; Long-term insulin use Z79.4 and Nicotine dependence, unspecified, uncomplicated F17.200 [place] [id number] [place] [address] 34934- 7756 August, Generalized anxiety disorder F41.1 [place] [id number] [place] [address] 30265- 8390 Jul, Generalized anxiety disorder F41.1 [facility] [id number] [place] [address] [id number] Jun, Generalized anxiety disorder F41.1 [facility] [id number] [id number] Jun, [facility] [id number] [place] [address] [id number] May, [facility] [id number] [place] [address] [id number]- 3431 May, [facility] [id number] [place] [address] [id number] May, Generalized anxiety disorder F41.1 [facility] [address] [address] 2378 Apr, [facility] [address] [place] [id number] Apr, Other chronic osteomyelitis of left foot M86.672 ; Type 2 diabetes mellitus with complication E11.8 ; Vascular dementia F01.50 ; Long-term insulin use Z79.4 ; PVD (peripheral vascular disease) I73.9 and Nicotine abuse 305.1 [facility] [id number] [place] [address] 99465- 6392 Apr, [facility] [id number] [place] [address] [id number] Apr, [facility] [id number] [place] [address] 53965- 4658 Apr, Pain R52 and Generalized anxiety disorder F41.1 [facility] [id number] [place] [address] 34276- 0780 Mar, [facility] [address] [address]- 8750 Mar, Pain R52 and Generalized anxiety disorder F41.1 [facility] [address] [place] [id number] Feb, Depression F32.9 ; Type 2 diabetes mellitus with complication E11.8 and Nicotine dependence, unspecified, uncomplicated F17.200 [facility] [id number] [place] [address] 22294- 2677 Feb, Generalized anxiety disorder F41.1 and Pain R52 [facility] [id number] [place] [address] 24625- 1266 Feb, [facility] [id number] [place] [address] 05231- 1519 Jan, [facility] [id number] [place] [address] 53810- 6621 Jan, Generalized anxiety disorder F41.1 and Pain R52 [facility] [id number] [place] [address] 39006- 5438 Jan, [facility] [id number] [place] [address] [id number] 27 Dec, 2016 Generalized anxiety disorder F41.1 and Pain R52 [facility] [address] [place] [id number] Dec, Vascular dementia F01.50 ; Pain of left leg M79.605 ; Pain in right leg M79.604 and Type 2 diabetes mellitus with complication E11.8 [facility] [address] [place] [address] 13392- 1809 Dec, Pain R52 [facility] [id number] [place] [address] 00897- 0354 Dec, [facility] [id number] [place] [address] 59348- 7497 Nov, [facility] [id number] [place] [address] 59808- 9510 Nov, Pain R52 and Generalized anxiety disorder F41.1 [place] [address] [place] [id number] Nov, Depression F32.9 ; Vascular dementia with behavior disturbance F01.51 and Anxiety F41.9 [facility] [address] [place] [address] 72116- 8414 Nov, Pain R52 and Generalized anxiety disorder F41.1 [facility] [address] [address] 2161 Oct, Generalized anxiety disorder F41.1 [facility] [address] [place] [address] 32719- 5342 Oct, Pain R52 [facility] [address] [place] [address] 85743- 9132 Sep, [facility] [address] [place] [id number] Sep, Generalized anxiety disorder F41.1 [facility] [address] [address]- 2128 Sep, Pain R52 [facility] [id number] [address]- 2546 Sep, Generalized anxiety disorder F41.1 [facility] [id number] [place] [address] 26622- 2196 August, [facility] [id number] [place] [address] 30772- 2546 August, [facility] [id number] [place] [address] 57406- 5412 August, Pain R52 [facility] [id number] [place] [address] 37045- 5454 August, Generalized anxiety disorder F41.1 [facility] [id number] [place] [address] [id number] August, Generalized anxiety disorder F41.1 [facility] [address] [place] [address] 23987- 4066 Jul, Pain R52 [facility] [id number] [place] [address] 09139- 3776 Jul, [facility] [id number] [place] [address] [id number] Jul, [facility] [id number] [place] [address] 03884- 2262 Jun, [facility] [id number] [place] [address] [id number] Jun, Depression F32.9 [facility] [address] [place] [address] 57402- 5405 Jun, Pain R52 [facility] [address] [place] [address] 29791- 6967 Jun, [facility] [address] [place] [id number] Jun, Vascular dementia F01.50 and Depression F32.9 [facility] [address] [address]- 2856 May, Pain R52 [facility] [id number] [place] [address] 00550- 5188 May, [facility] [address] 63041- 4524 May, Pseudobulbar affect F48.2 [facility] [address] 67834- 6665 May, [facility] [address] 43373- 2226 May, PVD (peripheral vascular disease) I73.9 [facility] [facility] [address] 76030- 9374 May, Vascular dementia with behavior disturbance F01.51 [facility] [id number] [place] [address] 64020- 0586 May, Vascular dementia with behavior disturbance F01.51 [facility] [id number] [place] [address] 13682- 9620 Apr, [facility] [id number] [place] [address] 57580- 4795 Apr, Pain R52 [facility] [address] [place] [id number] Apr, Generalized anxiety disorder F41.1 ; PVD (peripheral vascular disease) I73.9 and Type 2 diabetes mellitus with complication E11.8 [facility] [facility] [id number] [place] [address] 45394- 9861 Apr, Vascular dementia with behavior disturbance F01.51 [facility] [id number] [place] [address] 12017- 2338 Apr, [facility] [facility] [id number] [place] [address] 73283- 7842 Apr, Vascular dementia with behavior disturbance F01.51 [facility] [id number] [place] [address] 40588- 9259 Apr, [facility] [id number] [place] [address] [id number] Mar, [facility] [address] 93126- 1322 Mar, Type 2 diabetes mellitus with complication E11.8 ; Vascular dementia with behavior disturbance F01.51 and Depression F32.9 [facility] [address] 96628- 7247 Mar, [facility] [id number] [place] [address] 07452- 5149 Feb, [facility] [address] 10585- 3712 Feb, Viral illness B34.9 [facility] [address] 33827- 4658 Jan, Diabetes 250.00 [facility] [address] 51225- 3218 Jan, [facility] [id number] [place] [address] 66925- 4335 Jan, [facility] [id number] [place] [address] 77304- 4102 Jan, [facility] [address] [place] [id number] Jan, Vascular dementia with behavior disturbance F01.51 and Type 2 diabetes mellitus with complication E11.8 [facility] [id number] [place] [address] 53550- 2743 Jan, Pain R52 [facility] [id number] [place] [address] 70389- 5107 Jan, Pain R52 [facility] [id number] [place] [address] 49602- 1577 Dec, [facility] [id number] [place] [address] 94074- 0353 Nov, [facility] [address] [place] [id number] Nov, Type 2 diabetes mellitus with complication E11.8 [facility] [address] [address]- 9037 Nov, [facility] [address] [address]- 8530 Oct, [facility] [address] [address]- 8794 Oct, [facility] [id number] [place] [address] 38136- 3957 Oct, Vascular dementia with behavior disturbance F01.51 and Type 2 diabetes mellitus with complication E11.8 [facility] [address] [place] [address] 49603- 5479 August, Type 2 diabetes mellitus with complication E11.8 and Vascular dementia with behavior disturbance F01.51 [place] [address] [place] [address] 84507- 4298 August, Vascular dementia F01.50 [facility] [id number] [place] [address] 03092- 6997 August, Vascular dementia with behavior disturbance F01.51 [facility] [address] [address]- 1781 Jul, Vascular dementia with behavior disturbance F01.51 [facility] [address] [address]- 6802 Jun, Vascular dementia F01.50 [facility] [address] [address]- 3225 Jun, Type 2 diabetes mellitus with complication E11.8 ; Long- term insulin use Z79.4 and Vascular dementia with behavior disturbance F01.51 [facility] [address] [address]- 5684 Jun, Vascular dementia with behavior disturbance F01.51 [facility] [address] [place] [address] 68928- 4156 Jun, Vascular dementia F01.50 [facility] [address]- 6464 Apr, [facility] [address] [address]- 4394 Apr, [facility] [address] [address]- 1035 Apr, [facility] [address] [place] [address] 49096- 8835 Apr, Type 2 diabetes mellitus with complication E11.8 ; Depression F32.9 and Long-term insulin use Z79.4 [facility] [address] [address]- 7966 Mar, [place] [address] [place] [id number] Mar, Depression F32.9 ; Type 2 diabetes mellitus with complication E11.8 and Long-term insulin use Z79.4 [facility] [address] [address]- 5050 Feb, [facility] [address] [place] [address] 68736- 2789 Feb, Hyperthyroidism E05.90 [facility] [address] [address]- 7223 Feb, Hyperthyroidism E05.90 [facility] [address] [address]- 9361 Feb, [facility] [address] [address]- 9236 Jan, [facility] [address] [address]- 2884 Dec, Nicotine addiction 305.1 [facility] [address]- 0471 Oct, Nicotine abuse 305.1 [facility] [address] [facility] [id number] [address]- 1364 Oct, [facility] [address] [address]- 2385 August, [facility] [address] [place] [id number] August, History of drug abuse 305.93 and Diabetes 250.00 [facility] [address] [facility] [id number] [address]- 1130 14 Jul, 2014 [facility] [address] [facility] [id number] [address]- 8818 Jul, [facility] [id number] [address]- 4905 Jun, [facility] [address] [address]- 2984 Jun, [facility] [id number] [address]- 1375 Jun, [facility] [id number] [address]- 1585 Jun, [facility] [id number] [address]- 9153 Jun, [facility] [id number] [address]- 1606 Jun, [facility] [address] [facility] [id number] [address]- 4877 May, [facility] [address] [facility] [id number] [address]- 9425 May, [facility] [address] [facility] [id number] [address]- 8836 May, [facility] [id number]- 5751 May, [facility] [address] [id number] [place] [address]- 4029 May, [facility] [address] [id number] [place] [address]- 3927 Apr, [facility] [address] [id number] [place] [address]- 4443 Apr, [facility] [address] [place] [id number] Apr, [facility] [address] [id number] [place] [address]- 1795 Apr, [facility] [address] [id number] [place] [address]- 3373 Apr, [facility] [address] [id number] [place] [address]- 9298 Apr, [facility] [address] [id number] [place] [address]- 8394 Apr, [facility] [address] [id number] [place] [address]- 4342 Apr, [facility] [address] [id number] [place] [address]- 9808 Mar, [facility] [address] [id number] [place] [address]- 8047 Mar, [facility] [address] [id number] [place] [address]- 8911 Mar, [facility] [address] [id number] [place] [address]- 7986 Mar, [facility] [address] [id number] [place] [address]- 7642 Mar, [facility] [address] [id number] [place] [address]- 4239 Mar, [facility] [address] [id number] [place] [address]- 1578 Mar, [facility] [place] [facility] [address] [id number] [place] [address]- 9437 Mar, [facility] [place] [facility] [address] [id number] [place] [address]- 0201 Feb, [facility] [place] [facility] [address] [id number] [place] [address]- 6557 Feb, [facility] [place] [facility] [address] [id number] [place] [address]- 9422 Feb, [facility] [place] [facility] [address] [id number] [place] [address]- 0419 Feb, [facility] [place] [facility] [address] [id number] [place] [address]- 3407 Feb, [facility] [address] [place] [id number] Feb, [facility] [place] [facility] [address] [id number] [place] [address]- 2004 Feb, [facility] [place] [facility] [address] [id number] [place] [address]- 9447 Feb, [facility] [place] [facility] [address] [id number] [place] [address]- 7156 Feb, [facility] [place] [facility] [address] [id number] [place] [address]- 2382 Feb, [facility] [place] [facility] [address] [id number] [place] [address]- 4507 Jan, [facility] [place] [facility] [address] [id number] [place] [address]- 3799 Jan, [facility] [place] [facility] [address] [id number] [place] [address]- 7365 Jan, [facility] [place] [facility] [address] [id number] [place] [address]- 0596 Jan, [facility] [place] [facility] [address] [id number] [place] [address]- 6743 Jan, [facility] [place] [facility] [address] [id number] [place] [address]- 4503 16 Jan, 2014 [facility] [place] [facility] [address] [id number] [place] [address]- 3140 15 Jan, 2014 [facility] [place] [facility] [address] [id number] [place] [address]- 1466 13 Jan, 2014 [facility] [place] [facility] [address] [id number] [place] [address]- 4913 Jan, [facility] [place] [facility] [address] [id number] [place] [address]- 7139 Jan, [facility] [place] [facility] [address] [id number] [place] [address]- 7576 Jan, [facility] [place] [facility] [address] [id number] [place] [address]- 7890 Jan, [facility] [place] [facility] [address] [id number] [place] [address]- 1350 Jan, [facility] [place] [facility] [address] [id number] [place] [address]- 0856 Jan, [facility] [place] [facility] [address] [id number] [place] [address]- 3471 Jan, [facility] [place] [facility] [address] [id number] [address] Jan, [facility] [place] [facility] [address] [id number] [address] Jan, [facility] [place] [facility] [address] [id number] [place] [address] Dec, [facility] [place] [facility] [address] [id number] [place] [address] 19 Dec, 2013 [facility] [place] [facility] [address] [id number] [place] [address] 11 Dec, 2013 [facility] [place] [facility] [address] [id number] [place] [address] 11 Sep, 2013 [facility] [place] [facility] [address] [id number] [place] [address] 09 Sep, 2013 [facility] [place] [facility] [address] [id number] [place] [address] 09 Sep, 2013 [facility] [place] [facility] [address] [id number] [place] [address] 08 Sep, 2013 [facility] [place] [facility] [address] [id number] [place] [address] 08 Sep, 2013 [facility] [place] [facility] [address] [id number] [place] [address] 08 Sep, 2013 [facility] [place] [facility] [address] [id number] [place] [address] 08 Dec, 2013 [facility] [place] [facility] [address] [id number] [place] [address] 05 Dec, 2013 [facility] [place] [facility] [address] [id number] [place] [address] 05 Dec, 2013 [facility] [place] [facility] [address] [id number] [place] [address] Dec, 2013 [facility] [place] [facility] [address] [id number] [place] [address] Dec, 2013 [facility] [place] [facility] [address] [id number] [place] [address] Nov, [facility] [place] [facility] [address] [id number] [place] [address] Nov, [facility] [place] [facility] [address] [id number] [place] [address] Nov, [facility] [place] [facility] [address] [id number] [place] [address] Nov, [facility] [place] [facility] [address] [id number] [place] [address] Nov, [facility] [place] [facility] [address] [id number] [place] [address] Nov, [facility] [place] [facility] [address] [id number] [place] [address] Nov, [facility] [place] [facility] [address] [id number] [place] [address] Nov, [facility] [place] [facility] [address] [id number] [place] [address] Nov, [facility] [place] [facility] [address] [id number] [place] [address] Nov, [facility] [place] [facility] [address] [id number] [place] [address] 365[address] Nov, [facility] [place] [facility] [address] [id number] [place] [address] 2915 Nov, [facility] [place] [facility] [address] [id number] [place] [address]45 Nov, [facility] [place] [facility] [address] [id number] [place] [address]991 Nov, [facility] [place] [facility] [address] [id number] [place] [address] 4181 Oct, [facility] [place] [facility] [address] [id number] [place] [address]- 3976 Oct, [facility] [place] [facility] [address] [id number] [place] [address]- 3328 Oct, [facility] [place] [facility] [address] [id number] [place] [address] 8491 Oct, [facility] [place] [facility] [address] [id number] [place] [address]- 0078 Oct, [facility] [place] [facility] [address] [id number] [place] [address]- 6706 Oct, [facility] [place] [facility] [address] [id number] [place] [address]- 6360 Oct, [facility] [place] [facility] [address] [id number] [place] [address]- 7080 Oct, [facility] [place] [facility] [address] [id number] [place] [address]- 1264 Oct, [facility] [place] [facility] [address] [id number] [place] [address]- 7220 Oct, [facility] [place] [facility] [address] [id number] [place] [address]- 3361 Oct, [facility] [place] [facility] [address] [id number] [place] [address]- 9992 Oct, [facility] [place] [facility] [address] [id number] [place] [address]- 5005 Oct, [facility] [place] [facility] [address] [id number] [place] [address]- 6436 Oct, [facility] [place] [facility] [address] [id number] [place] [address]- 7227 Oct, [facility] [place] [facility] [address] [id number] [place] [address]- 8364 Oct, [facility] [place] [facility] [address] [id number] [place] [address]- 4727 Oct, [facility] [place] [facility] [address] [id number] [place] [address]- 3377 Oct, [facility] [place] [facility] [address] [id number] [place] [address]- 8068 Oct, [facility] [place] [facility] [address] [id number] [place] [address]- 3534 Oct, [facility] [place] [facility] [address] [id number] [place] [address]- 4821 Sep, [facility] [place] [facility] [address] [id number] [place] [address]- 7198 Sep, [facility] [place] [facility] [address] [id number] [place] [address]- 2922 Sep, [facility] [place] [facility] [address] [id number] [place] [address]- 5148 Sep, [facility] [place] [facility] [address] [id number] [place] [address]- 7175 Sep, [facility] [place] [facility] [address] [id number] [place] [address] Sep, [facility] [place] [facility] [address] [id number] [place] [address]- 5556 August, [facility] [place] [facility] [address] [id number] [place] [address]- 5982 August, [facility] [place] [facility] [address] [id number] [place] [address]- 6356 Jul, [facility] [place] [facility] [address] [id number] [place] [address]- 9973 Jul, [facility] [place] [facility] [address] [id number] [place] [address]- 4315 Jul, [facility] [place] [facility] [address] [id number] [place] [address]- 8986 Jul, [facility] [place] [facility] [address] [id number] [place] [address]- 7736 Jul, [facility] [place] [facility] [address] [id number] [place] [address]- 4555 Jul, [facility] [place] [facility] [address] [id number] [place] [address]- 5367 Jul, [facility] [place] [facility] [address] [id number] [place] [address]- 1670 Jul, [facility] [place] [facility] [address] [id number] [place] [address]- 9188 Jun, [facility] [place] [facility] [address] [id number] [place] [address] Jun, [facility] [place] [facility] [address] [id number] [place] [address]- 0123 Jun, [facility] [place] [facility] [address] [id number] [place] [address]- 2059 Jun, [facility] [place] [facility] [address] [id number] [place] [address]- 4163 Jun, [facility] [place] [facility] [address] [id number] [place] [address]- 9269 May, [facility] [place] [facility] [address] [id number] [place] [address]- 7443 May, [facility] [place] [facility] [address] [id number] [place] [address]- 9395 May, [facility] [place] [facility] [address] [id number] [place] [address]- 4506 May, [facility] [place] [facility] [address] [id number] [place] [address]- 7354 May, [facility] [place] [facility] [address] [id number] [place] [address]- 2594 May, [facility] [place] [facility] [address] [id number] [place] [address]- 7951 May, [facility] [place] [facility] [address] [id number] [place] [address]- 1760 May, [facility] [place] [facility] [address] [id number] [place] [address]- 3276 May, [facility] [place] [facility] [address] [id number] [place] [address]- 3803 May, [facility] [place] [facility] [address] [id number] [place] [address]- 2701 May, [facility] [place] [facility] [address] [id number] [place] [address]- 5154 Apr, [facility] [place] [facility] [address] [id number] [place] [address]- 6965 Apr, [facility] [address] [id number] [place] [address]- 1631 Mar, [facility] [place] [facility] [address] [id number] [place] [address]- 7292 Mar, [facility] [address] [id number] [place] [address]- 7813 Mar, [facility] [place] [facility] [address] [id number] [place] [address]- 8289 Mar, [facility] [address] [id number] [place] [address]- 4378 Mar, [facility] [place] [facility] [address] [id number] [place] [address]- 3620 Jan, [facility] [place] [facility] [address] [id number] [place] [address]- 1088 Jan, [facility] [address] [id number] [place] [address]- 1984 Jan, [facility] [place] [facility] [address] [id number] [place] [address]- 5679 Jan, [facility] [address] [id number] [place] [address]- 9939 Jan, [facility] [place] [facility] [address] [id number] [place] [address]- 5806 Jan, [facility] [place] [facility] [address] [id number] [place] [address]- 6386 Jan, [facility] [place] [facility] [address] [id number] [place] [address]- 7915 Jan, [facility] [place] [facility] [address] [id number] [place] [address]- 9963 Jan, [facility] [place] [facility] [address] [id number] [place] [address]- 7260 Jan, [facility] [address] [id number] [place] [address]- 6865 Dec, [facility] [place] [facility] [address] [id number] [place] [address] Oct, [facility] [place] [facility] [address] [id number] [place] [address] Oct, [facility] [place] [facility] [address] [id number] [place] [address]- 9265 Oct, [facility] [address] [id number] [place] [address]- 9162 Oct, [facility] [place] [facility] [address] [id number] [place] [address]- 6127 Oct, [facility] [place] [facility] [address] [id number] [place] [address]- 6434 Oct, [facility] [address] [id number] [place] [address]- 7440 Sep, [facility] [place] [facility] [address] [id number] [place] [address] August, [facility] [place] [facility] [address] [id number] [place] [address]- 6585 August, [facility] [place] [facility] [address] [id number] [place] [address]- 7016 August, [facility] [place] [facility] [address] [id number] [place] [address]- 4129 August, [facility] [place] [facility] [address] [id number] [place] [address]- 8965 August, [facility] [place] [facility] [address] [id number] [place] [address]- 8846 May, [facility] [place] [facility] [address] [id number] [place] [address]- 1956 Apr, [facility] [place] [facility] [address] [id number] [address] Apr, [facility] [address] [id number] [place] [address]- 0430 Apr, [facility] [address] [id number] [place] [address]- [address], [facility] [address] [id number] [place] [address]- 8269 Apr, [facility] [address] [place] [id number] Mar, [facility] [address] [id number] [place] [address]- 9527 Mar, [facility] [address] [id number] [place] [address]- 6372 Mar, [facility] [address] [id number] [place] [address]- 4830 Mar, [facility] [address] [id number] [place] [address]- 3485 [address], [address] [facility] [address] [id number] [place] [address]- 9398 17 Mar, 2012 [facility] [address] [id number] [place] [address]- 7757 Mar, [facility] [address] [id number] [place] [address]- 6135 13 Mar, 2012 [facility] [address] [id number] [address]- 7770 13 Mar, 2012 [facility] [address] [id number] [place] [address]- 8920 Mar, [facility] [address] [id number] [place] [address]- 0540 12 Mar, 2012 [facility] [address] [id number] [place] [address]- 2018 Mar, [facility] [address] [id number] [place] [address]- 8555 Mar, [facility] [address] [id number] [place] [address]- 9139 Mar, [facility] [place] [facility] [address] [id number] [place] [address]- 0619 Mar, [facility] [place] [facility] [address] [id number] [place] [address]- 1101 Mar, [facility] [place] [facility] [address] [id number] [place] [address]- 2921 Mar, [facility] [place] [facility] [address] [id number] [place] [address]- 6223 Mar, [facility] [place] [facility] [address] [id number] [place] [address]- 2788 Mar, [facility] [place] [facility] [address] [facility] [id number] [place] [address]- 1745 Mar, [facility] [place] [facility] [address] [id number] [place] [address]- 6900 Feb, [facility] [place] [facility] [address] [id number] [place] [address]- 4778 Feb, [facility] [place] [facility] [address] [facility] [id number] [place] [address]- 7409 Feb, [facility] [place] [facility] [address] [id number] [place] [address]- 0540 Feb, [facility] [place] [facility] [address] [id number] [place] [address]- 9328 Jan, [facility] [place] [facility] [address] [id number] [place] [address]- 8940 Jan, [facility] [place] [facility] [address] [facility] [id number] [place] [address]- 4094 Jan, [facility] [place] [facility] [address] [id number] [place] [address]- 5110 Jan, [facility] [place] [facility] [address] [id number] [place] [address]- 9768 29 Jan, 2012 [facility] [place] [facility] [address] [id number] [place] [address]- 2490 29 Jan, 2012 [facility] [place] [facility] [address] [id number] [place] [address]- 7552 Jan, [facility] [place] [facility] [address] [id number] [place] [address]- 2750 Jan, [facility] [place] [facility] [address] [id number] [place] [address]- 9681 10 Jan, 2012 [facility] [place] [facility] [address] [id number] [place] [address]- 5735 27 Dec, 2011 [facility] [place] [facility] [address] [id number] [place] [address]- 9708 14 Dec, 2011 [facility] [place] [facility] [address] [id number] [place] [address]- 2319 12 Dec, 2011 [facility] [place] [facility] [address] [id number] [place] [address]- 8220 06 Dec, 2011 [facility] [place] [facility] [address] [id number] [place] [address]- 1508 06 Dec, 2011 [facility] [place] [facility] [address] [id number] [place] [address]- 4522 Nov, [facility] [place] [facility] [address] [id number] [address]- 7857 29 Nov, 2011 [facility] [place] [facility] [address] [id number] [place] [address]- 4489 23 Nov, 2011 [facility] [place] [facility] [address] [id number] [place] [address]- 3307 14 Nov, 2011 [facility] [place] [facility] [address] [id number] [place] [address]- 8485 13 Nov, 2011 [facility] [place] [facility] [address] [id number] [place] [address]- 1081 Nov, [facility] [place] [facility] [address] [id number] [place] [address]- 7887 Nov, [facility] [place] [facility] [address] [id number] [place] [address] Nov, [facility] [place] [facility] [address] [id number] [place] [address]- 0076 Nov, [facility] [place] [facility] [address] [id number] [place] [address]- 4295 Oct, [facility] [place] [facility] [address] [id number] [place] [address]- 2807 Oct, [facility] [place] [facility] [address] [id number] [place] [address]- 1632 Sep, [facility] [place] [facility] [address] [id number] [place] [address]- 3747 Sep, [facility] [place] [facility] [address] [id number] [place] [address]- 8260 Sep, [facility] [place] [facility] [address] [id number] [place] [address]- 4416 August, [facility] [place] [facility] [address] [id number] [place] [address]- 6702 30 Jul, 2011 [facility] [place] [facility] [address] [id number] [place] [address]- 0351 27 Jul, 2011 [facility] [place] [facility] [address] [id number] [place] [address]- 7203 27 Jul, 2011 [facility] [place] [facility] [address] [id number] [place] [address]- 7947 18 Jul, 2011 [facility] [place] [facility] [address] [id number] [place] [address]- 7687 16 Jul, 2011 [facility] [place] [facility] [address] [id number] [place] [address]- 9288 16 Jul, 2011 [facility] [place] [facility] [address] [id number] [place] [address]- 1530 16 Jul, 2011 [facility] [place] [facility] [address] [id number] [place] [address]- 2747 14 Jul, 2011 [facility] [place] [facility] [address] [id number] [place] [address]- 4056 12 Jul, 2011 [facility] [place] [facility] [address] [id number] [place] [address]- 3199 19 Jun, 2011 [facility] [place] [facility] [address] [id number] [place] [address]- 9487 18 Jun, 2011 [facility] [place] [facility] [address] [id number] [place] [address]- 3433 15 Jun, 2011 [facility] [place] [facility] [address] [id number] [place] [address]- 6692 12 Jun, 2011 [facility] [place] [facility] [address] [id number] [place] [address]- 4575 08 Jun, 2011 [facility] [place] [facility] [address] [id number] [place] [address]- 7382 08 Jun, 2011 [facility] [place] [facility] [address] [id number] [place] [address]- 2018 08 Jun, 2011 [facility] [place] [facility] [address] [id number] [place] [address]- 7434 08 Jun, 2011 [facility] [place] [facility] [address] [id number] [place] [address]- 3829 May, [facility] [place] [facility] [address] [id number] [place] [address]- 1768 May, [facility] [place] [facility] [address] [id number] [place] [address]- 1983 May, [facility] [place] [facility] [address] [id number] [place] [address]- 4896 Apr, [facility] [place] [facility] [address] [id number] [place] [address]- 2588 Apr, [facility] [address] [id number] [place] [address]- 8771 18 Apr, 2011 [facility] [address] [id number] [place] [address]- 2356 Mar, [facility] [address] [id number] [place] [address]- 5186 Mar, [facility] [place] [facility] [address] [id number] [place] [address]- 6878 15 Mar, 2011 [facility] [address] [id number] [place] [address]- 2961 Mar, [facility] [place] [facility] [address] [id number] [place] [address]- 3842 Mar, [facility] [place] [facility] [address] [id number] [place] [address]- 1900 Mar, [facility] [place] [facility] [address] [id number] [place] [address]- 1786 Mar, [facility] [place] [facility] [address] [id number] [place] [address]- 1148 Mar, [facility] [place] [facility] [address] [id number] [place] [address]- 8156 Mar, [facility] [place] [facility] [address] [id number] [address]- 9906 Mar, [facility] [place] [facility] [address] [id number] [place] [address]- 1347 06 Mar, 2011 [facility] [place] [facility] [address] [id number] [place] [address]- 9977 Mar, [facility] [place] [facility] [address] [id number] [place] [address]- 6934 Mar, [facility] [place] [facility] [address] [id number] [place] 1513 05 Mar, 2011 [facility] [place] [facility] [address] [id number] [place] [address]- 7518 29 Feb, 2011 [facility] [place] [facility] [address] [id number] [place] [address]- 1785 22 Feb, 2011 [facility] [place] [facility] [address] [id number] [place] [address]- 8376 14 Feb, 2011 [facility] [place] [facility] [address] [id number] [place] [address]- 3086 29 Jan, 2011 [facility] [place] [facility] [address] [id number] [place] [address]- 9292 Jan, [facility] [place] [facility] [address] [id number] [place] [address]- 6188 Oct, [facility] [place] [facility] [address] [id number] [place] [address]- 2866 Sep, [facility] [place] [facility] [address] [id number] [place] [address] Mar, [facility] [place] [facility] [address] [id number] [place] [address] 16 Mar, 2010 [facility] [place] [facility] [address] [id number] [place] [address] 16 Feb, 2010 [facility] [place] [facility] [address] [facility] [id number] [place] [address] Feb, [facility] [place] [facility] [address] [id number] [place] [address] 27 Jan, 2010 [facility] [place] [facility] [address] [id number] [place] [address] Jan, [facility] [place] [facility] [address] [id number] [place] [address] 07 Mar, 2009 [facility] [place] [facility] [address] [id number] [place] [address] Feb, [facility] [place] [facility] [address] [id number] [place] [address] Feb, [facility] [address] [facility] [id number] [address] Feb, [facility] [address] [id number] [address] Feb, [facility] [address] [id number] [address] Jan, [facility] [address] [id number] [address] Dec, [facility] [address] [facility] [id number] [address] Nov, IMMUNIZATIONS No Known Immunizations SOCIAL HISTORY [...] (GENERAL) HISTORY Type Description Date Hospitalization History [facility] March 2015
--- OUTSIDE RECORDS SUMMARY | 2017-10-27 10:43 | XMS REPORT ---
Author Author STEPHANIE CHRISTIANSEN [facility] Address [address] [place] [address] Care Team Providers Care Custom Harvester Name Role Phone STEPHANIE CHRISTIANSEN Unavailable PROBLEMS Type Condition ICD9-CM Code FUO56-WK Code Onset Dates Condition Status SNOMED Code Problem Hyperlipidemia, unspecified hyperlipidemia type E78.5 Active 46566052 Problem Long-term insulin use Z79.4 Active 455480032 Problem Abnormal carotid ultrasound R93.8 Active 389623375 Problem Type 2 diabetes mellitus with complication E11.8 Active 85964818 Problem Positive TB test R76.11 Active 741779346 Problem Vascular dementia with behavior disturbance F01.51 Active 494605687 Problem PVD (peripheral vascular disease) I73.9 Active 441656014 Problem Pain R52 Active 36881948 Problem Other chronic osteomyelitis of left foot M86.672 Active 834563994 Problem Nicotine dependence, unspecified, uncomplicated F17.200 Active 705476004 Problem Peripheral vascular disease due to secondary diabetes E13.51 Active 7554634 Problem Nonintractable epilepsy without status epilepticus, unspecified epilepsy type G40.909 Active 269740058 Problem Recurrent major depressive disorder, remission status unspecified F33.9 Active 48139224 Problem Anxiety F41.9 Active 72180633 Problem Generalized anxiety disorder F41.1 Active 44677326 Problem Vascular dementia F01.50 Active 713766149 Problem Pseudobulbar affect F48.2 Active 83929557 Problem Coronary artery disease involving grindstone coronary artery of grindstone heart without angina pectoris I25.10 Active 4267097257539 Problem Gastroesophageal reflux disease without esophagitis K21.9 Active 124065487 Problem Cerebrovascular accident (CVA) due to other mechanism I63.8 Active 987037512 Problem Pulmonary emphysema, unspecified emphysema type J43.9 Active 56282880 Problem Neuropathy G62.9 Active 277902789 Problem Depression F32.9 Active 12226249 Problem Essential hypertension I10 Active 56924385 Problem Acquired hypothyroidism E03.9 Active 097999801 ALLERGIES No Information ENCOUNTERS Encounter Location Date Diagnosis [facility] [id number] [place] [address] 92009- 2127 Sep, Generalized anxiety disorder F41.1 [facility] [address] [address] 3[address] Sep, [facility] [id number] [place] [address] 14886- 0754 Sep, Type 2 diabetes mellitus with complication E11.8 [facility] [address] [place] [address] 92503- 1209 August, Generalized anxiety disorder F41.1 [facility] [id number] [place] [address] 11930- 2321 August, [facility] [address] [place] [id number] August, Type 2 diabetes mellitus with complication E11.8 ; Vascular dementia with behavior disturbance F01.51 ; Long-term insulin use Z79.4 and Nicotine dependence, unspecified, uncomplicated F17.200 [facility] [address] [place] [address] 96660- 6952 August, Generalized anxiety disorder F41.1 [facility] [address] [address]- 5473 Jul, Generalized anxiety disorder F41.1 [facility] [id number] [place] [address] [id number] Jun, Generalized anxiety disorder F41.1 [facility] [id number] [id number] Jun, [facility] [id number] [place] [address] [id number] May, [facility] [address] [address] 4[address] May, [facility] [id number] [place] [address] [id number] May, Generalized anxiety disorder F41.1 [facility] [address] [address]- 6832 Apr, [facility] [address] [place] [id number] Apr, Other chronic osteomyelitis of left foot M86.672 ; Type 2 diabetes mellitus with complication E11.8 ; Vascular dementia F01.50 ; Long-term insulin use Z79.4 ; PVD (peripheral vascular disease) I73.9 and Nicotine abuse 305.1 [facility] [id number] [place] [address] 92718- 0454 Apr, [facility] [address] [id number] Apr, [facility] [id number] [place] [address] 68222- 2520 Apr, Pain R52 and Generalized anxiety disorder F41.1 [facility] [id number] [place] [address] 89020- 1386 Mar, [facility] [id number] [place] [address] 32655- 9461 Mar, Pain R52 and Generalized anxiety disorder F41.1 [facility] [address] [facility] [address] [address] [place] [id number] Feb, Depression F32.9 ; Type 2 diabetes mellitus with complication E11.8 and Nicotine dependence, unspecified, uncomplicated F17.200 [facility] [address] [place] [address] 81401- 9956 Feb, Generalized anxiety disorder F41.1 and Pain R52 [facility] [address] [place] [address] 99424- 3388 Feb, [facility] [id number] [place] [address] 51445- 2666 Jan, [facility] [address] [place] [address] 09628- 1651 Jan, Generalized anxiety disorder F41.1 and Pain R52 [facility] [address] [facility] [id number] [address] 9177 Jan, [facility] [id number] [place] [address] [id number] Dec, Generalized anxiety disorder F41.1 and Pain R52 [facility] [address] [place] [id number] Dec, Vascular dementia F01.50 ; Pain of left leg M79.605 ; Pain in right leg M79.604 and Type 2 diabetes mellitus with complication E11.8 [facility] [id number] [place] [address] 06637- 9498 11 Dec, 2016 Pain R52 [facility] [id number] [place] [address] 39813- 5175 Dec, [facility] [id number] [place] [address] 31074- 5818 Nov, [facility] [id number] [place] [address] 75867- 3400 Nov, Pain R52 and Generalized anxiety disorder F41.[address] [facility] [address] [place] [id number] Nov, Depression F32.9 ; Vascular dementia with behavior disturbance F01.51 and Anxiety F41.9 [facility] [address] [place] [address] 37457- 7303 Nov, Pain R52 and Generalized anxiety disorder F41.1 [facility] [address] [place] [address] 00380- 5870 Oct, Generalized anxiety disorder F41.1 [facility] [id number] [place] [address] 98166- 6436 Oct, Pain R52 [facility] [id number] [place] [address] 30751- 8182 Sep, [facility] [address] [place] [id number] Sep, Generalized anxiety disorder F41.1 [facility] [address] [address] 2546 09 Sep, 2016 Pain R52 [facility] [address] [place] [address] 90158- 3733 Sep, Generalized anxiety disorder F41.1 [facility] [address] [address]- 9666 August, [facility] [id number] [place] [address] 76954- 4866 August, [facility] [address] [address]- 9819 August, Pain R52 [facility] [address] [place] [address] 72893- 7219 August, Generalized anxiety disorder F41.1 [facility] [id number] [place] [address] [id number] August, Generalized anxiety disorder F41.1 [facility] [address] [address]- 0013 Jul, Pain R52 [facility] [address] [place] [address] 20846- 0061 Jul, [facility] [id number] [id number] Jul, [facility] [address] [place] [address] 87598- 5804 Jun, [facility] [id number] [id number] Jun, Depression F32.9 [facility] [address] [address]- 4801 Jun, Pain R52 [facility] [address] [address]- 4446 Jun, [facility] [address] [place] [phone] Jun, Vascular dementia F01.50 and Depression F32.9 [facility] [id number] [place] [address] 03847- 6123 May, Pain R52 [facility] [address] 80492- 2023 15 May, [address] [place] [place] [address] 10568- 6400 May, Pseudobulbar affect F48.2 [facility] [address] 97229- 2771 May, [place] [address] 93497- 6862 May, PVD (peripheral vascular disease) I73.9 [place] [address] 86335- 1765 May, Vascular dementia with behavior disturbance F01.51 [place] [address] 99856- 5411 May, Vascular dementia with behavior disturbance F01.51 [place] [address] 34542- 1156 Apr, [place] [id number] [place] [address] 17434- 5665 Apr, Pain R52 [facility] [address] [facility] [address] [place] [id number] Apr, Generalized anxiety disorder F41.1 ; PVD (peripheral vascular disease) I73.9 and Type 2 diabetes mellitus with complication E11.8 [place] [id number] [place] [address] 93099- 0603 Apr, Vascular dementia with behavior disturbance F01.51 [place] [facility] [id number] [place] [address] 33802- 8635 Apr, [place] [id number] [place] [address] 93037- 1446 Apr, Vascular dementia with behavior disturbance F01.51 [facility] [address] [place] [address] 99189- 5029 Apr, [facility] [address] [id number] Mar, [facility] [id number] [place] [address] 98417- 8085 Mar, Type 2 diabetes mellitus with complication E11.8 ; Vascular dementia with behavior disturbance F01.51 and Depression F32.9 [facility] [id number] [place] [address] 79083- 4337 Mar, [facility] [address] 85453- 4728 Feb, [facility] [id number] [place] [address] 94303- 2715 Feb, Viral illness B34.9 [facility] [address] 09280- 3333 Jan, Diabetes 250.00 [facility] [id number] [place] [address] 54706- 6695 Jan, [facility] [id number] [place] [address] 15342- 4125 Jan, [facility] [id number] [place] [address] 08739- 8261 Jan, [facility] [address] [place] [id number] Jan, Vascular dementia with behavior disturbance F01.51 and Type 2 diabetes mellitus with complication E11.8 [facility] [id number] [place] [address] 03926- 6323 Jan, Pain R52 [facility] [id number] [place] [address] 78675- 6321 Jan, Pain R52 [facility] [id number] [place] [address] 33214- 8380 Dec, [facility] [address] [address]- 8480 Nov, [facility] [address] [place] [id number] Nov, Type 2 diabetes mellitus with complication E11.8 [facility] [address] [address]- 7727 Nov, [facility] [address] [place] [address] 99555- 4326 Oct, [facility] [address] [address]- 8619 Oct, [facility] [id number] [place] [address] 55402- 5720 Oct, Vascular dementia with behavior disturbance F01.51 and Type 2 diabetes mellitus with complication E11.8 [place] [address] [address]- 3127 August, Type 2 diabetes mellitus with complication E11.8 and Vascular dementia with behavior disturbance F01.51 [facility] [address] [address]- 8779 August, Vascular dementia F01.50 [facility] [address] [address]- 1742 August, Vascular dementia with behavior disturbance F01.51 [facility] [address] [address]- 5762 Jul, Vascular dementia with behavior disturbance F01.51 [facility] [address] [address]- 5269 Jun, Vascular dementia F01.50 [facility] [address] [address]- 4575 Jun, Type 2 diabetes mellitus with complication E11.8 ; Long- term insulin use Z79.4 and Vascular dementia with behavior disturbance F01.51 [facility] [address] [address]- 9553 Jun, Vascular dementia with behavior disturbance F01.51 [place] [address] [place] [address] 089655- 7934 Jun, Vascular dementia F01.50 [facility] [address] [address]- 8486 Apr, [facility] [id number] [place] [address] 378948- 0231 Apr, [facility] [address] [place] [address] 339283- 4413 Apr, [place] [id number] [place] [address] 953322- 2571 Apr, Type 2 diabetes mellitus with complication E11.8 ; Depression F32.9 and Long-term insulin use Z79.4 [place] [address] [place] [address] 30816- 3277 Mar, [facility] [address] [place] [id number] Mar, Depression F32.9 ; Type 2 diabetes mellitus with complication E11.8 and Long-term insulin use Z79.4 [place] [address] [address]- 7364 Feb, [place] [address] [place] [address] 25446- 5590 Feb, Hyperthyroidism E05.90 [place] [address] [address]- 5909 Feb, Hyperthyroidism E05.90 [place] [address] [place] [address] 81969- 9302 Feb, [place] [address] [place] [address] 165636- 2081 Jan, [place] [address] [place] [address] 108927- 4091 16 Dec, 2014 Nicotine addiction 305.1 [facility] [address] [address]- 9464 Oct, Nicotine abuse 305.1 [facility] [address] [address]- 6788 Oct, [facility] [address] [address]- 1889 August, [facility] [address] [place] [id number] August, History of drug abuse 305.93 and Diabetes 250.00 [facility] [address] [address]- 3858 Jul, [facility] [address] [address]- 4025 Jul, [facility] [address] [address]- 9111 Jun, [facility] [address] [address]- 2354 Jun, [facility] [address] [address]- 4633 Jun, [facility] [address] [address]- 3971 Jun, [facility] [address] [address]- 0734 Jun, [facility] [address] [address]- 5002 Jun, [facility] [address] 1704 May, [facility] [address] 8358 May, [facility] [id number] 0136 May, [facility] [place] [facility] [address] [id number] [place] [address]- 6963 May, [facility] [address] [id number] [place] [address]- 4002 May, [facility] [address] [id number] [place] [address]- 0475 Apr, [facility] [address] [id number] [place] [address]- 7904 Apr, [facility] [address] [facility] [place] [id number] Apr, [facility] [address] [id number] [place] [address]- 4232 Apr, [facility] [address] [id number] [place] [address]- 8866 Apr, [facility] [address] [id number] [place] [address]- 9543 Apr, [facility] [address] [id number] [place] [address]- 8134 Apr, [facility] [address] [id number] [place] [address]- 7637 Apr, [facility] [address] [id number] [place] [address]- 0997 Mar, [facility] [place] [facility] [address] [id number] [place] [address]- 4691 Mar, [facility] [place] [facility] [address] [id number] [place] [address]- 0412 Mar, [facility] [place] [facility] [address] [id number] [place] [address]- 3990 Mar, [facility] [place] [facility] [address] [id number] [place] [address]- 2546 Mar, [facility] [place] [facility] [address] [id number] [place] [address]- 7026 Mar, [facility] [place] [facility] [address] [id number] [place] [address]- 3493 Mar, [facility] [place] [facility] [address] [id number] [place]- 5873 Mar, [facility] [place] [facility] [address] [id number] [place] 1918 Feb, [facility] [place] [facility] [address] [id number] [place] [address]- 2145 Feb, [facility] [place] [facility] [address] [id number] [place] [address]- 9236 Feb, [facility] [place] [facility] [address] [id number] [place] [address]- 1829 Feb, [facility] [place] [facility] [address] [id number] [place] [address]- 3732 Feb, [facility] [address] [place] [address] Feb, [facility] [place] [facility] [address] [id number] [place] [address]- 8244 Feb, [facility] [place] [facility] [address] [id number] [place] [address]- 2290 Feb, [facility] [place] [facility] [address] [id number] [place] [address]- 6068 Feb, [facility] [place] [facility] [address] [id number] [place] [address]- 4919 Feb, [facility] [place] [facility] [address] [id number] [place] [address]- 2755 Jan, [facility] [place] [facility] [address] [id number] [place] [address]- 5554 Jan, [facility] [place] [facility] [address] [id number] [place] [address]- 2515 Jan, [facility] [place] [facility] [address] [id number] [place] [address]- 5960 17 Jan, 2014 [facility] [place] [facility] [address] [id number] [place] [address]- 0840 16 Jan, 2014 [facility] [place] [facility] [address] [id number] [place] 6875 16 Jan, 2014 [facility] [place] [facility] [address] [id number] [place] [address]- 5281 15 Jan, 2014 [facility] [place] [facility] [address] [id number] [place] [address]- 1529 Jan, [facility] [place] [facility] [address] [id number] [place] [address]- 1388 Jan, [facility] [place] [facility] [address] [id number] [place] [address]- 7192 Jan, [facility] [place] [facility] [address] [id number] [place] [address]- 5291 Jan, [facility] [place] [facility] [address] [id number] [place] [address]- 3949 Jan, [facility] [place] [facility] [address] [id number] [place] [address]- 8142 Jan, [facility] [place] [facility] [address] [id number] [place] [address]- 6718 Jan, [facility] [place] [facility] [address] [id number] [address]- 9239 08 Jan, 2014 [facility] [place] [facility] [address] [id number] [place] [address]- 1412 Jan, [facility] [place] [facility] [address] [id number] [place] [address]- 1487 Jan, [facility] [place] [facility] [address] [id number] [address]- 3032 Dec, [facility] [place] [facility] [address] [id number] [place] [address]- 2933 19 Dec, 2013 [facility] [place] [facility] [address] [id number] [place] [address]- 1161 11 Dec, 2013 [facility] [place] [facility] [address] [id number] [place] [address]- 7410 11 Dec, 2013 [facility] [place] [facility] [address] [id number] [place] [address]- 7332 09 Dec, 2013 [facility] [place] [facility] [address] [id number] [place] [address]- 9101 09 Sep, 2013 [facility] [place] [facility] [address] [id number] [place] [address] 08 Dec, 2013 [facility] [place] [facility] [address] [id number] [place] [address] 08 Dec, 2013 [facility] [place] [facility] [address] [id number] [place] [address] 08 Dec, 2013 [facility] [place] [facility] [address] [id number] [place] [address] 08 Dec, 2013 [facility] [place] [facility] [address] [id number] [place] [address] 05 Dec, 2013 [facility] [place] [facility] [address] [id number] [place] [address] Dec, 2013 [facility] [place] [facility] [address] [id number] [place] [address] Dec, 2013 [facility] [place] [facility] [address] [id number] [place] [address] Dec, 2013 [facility] [place] [facility] [address] [id number] [place] [address] Nov, [facility] [place] [facility] [address] [id number] [place] [address] Nov, [facility] [place] [facility] [address] [id number] [place] [address] Nov, [facility] [place] [facility] [address] [id number] [place] [address] Nov, [facility] [place] [facility] [address] [id number] [place] [address] Nov, [facility] [place] [facility] [address] [id number] [place] [address] Nov, [facility] [place] [facility] [address] [id number] [place] [address] Nov, [facility] [place] [facility] [address] [id number] [place] [address] Nov, [facility] [place] [facility] [address] [id number] [place] [address] Nov, [facility] [place] [facility] [address] [id number] [place] [address] Nov, [facility] [place] [facility] [address] [id number] [place] [address]- 2014 Nov, [facility] [place] [facility] [address] [id number] [place] [address] Nov, [facility] [place] [facility] [address] [id number] [place] [address] Nov, [facility] [place] [facility] [address] [id number] [place] [address] Nov, [facility] [place] [facility] [address] [id number] [place] [address] Oct, [facility] [place] [facility] [address] [id number] [place] [address] Oct, [facility] [place] [facility] [address] [id number] [place] [address] Oct, [facility] [place] [facility] [address] [id number] [place] [address] Oct, [facility] [place] [facility] [address] [id number] [place] [address] Oct, [facility] [place] [facility] [address] [id number] [place] [address] Oct, 2013 [facility] [place] [facility] [address] [id number] [place] [address] Oct, 2013 [facility] [place] [facility] [address] [id number] [place] [address] Oct, [facility] [place] [facility] [address] [id number] [place] [address] Oct, 2013 [facility] [place] [facility] [address] [id number] [place] [address] Oct, [facility] [place] [facility] [address] [id number] [place] [address] Oct, [facility] [place] [facility] [address] [id number] [place] [address] Oct, [facility] [place] [facility] [address] [id number] [place] [address] Oct, [facility] [place] [facility] [address] [id number] [place] [address] 7038 Oct, [facility] [place] [facility] [address] [id number] [place] [address] 0320 Oct, [facility] [place] [facility] [address] [id number] [place] [address] 3767 Oct, [facility] [place] [facility] [address] [id number] [place] [address] 0406 Oct, [facility] [place] [facility] [address] [id number] [place] [address] 9342 Oct, [facility] [place] [facility] [address] [id number] [place] [address] 2051 Oct, [facility] [place] [facility] [address] [id number] [place] [address] 7127 Oct, [facility] [place] [facility] [address] [id number] [place] [address] 3486 Sep, [facility] [place] [facility] [address] [id number] [place] [address]- 1042 Sep, [facility] [place] [facility] [address] [id number] [place] [address] 2059 Sep, [facility] [place] [facility] [address] [id number] [place] [address] 2935 Sep, [facility] [place] [facility] [address] [id number] [place] [address]- 3375 Sep, [facility] [place] [facility] [address] [id number] [place] [address]- 6332 Sep, [facility] [place] [facility] [address] [id number] [place] [address] 2174 August, [facility] [place] [facility] [address] [id number] [place] [address] 4768 August, [facility] [place] [facility] [address] [id number] [place] [address]- 4070 Jul, [facility] [place] [facility] [address] [id number] [place] [address]- 6794 Jul, [facility] [place] [facility] [address] [id number] [place] [address]- 9634 Jul, [facility] [place] [facility] [address] [id number] [place] [address]- 7124 Jul, [facility] [place] [facility] [address] [id number] [place] [address]- 9024 Jul, [facility] [place] [facility] [address] [id number] [place] [address]- 2805 Jul, [facility] [place] [facility] [address] [id number] [place] [address]- 1459 Jul, [facility] [place] [facility] [address] [id number] [place] [address]- 8829 Jul, [facility] [place] [facility] [address] [id number] [place] [address]- 4017 Jun, [facility] [place] [facility] [address] [id number] [place] [address]- 0070 Jun, [facility] [place] [facility] [address] [id number] [place] [address]- 5971 Jun, [facility] [place] [facility] [address] [facility] [id number] [place] [address]- 1676 Jun, [facility] [place] [facility] [address] [id number] [place] [address]- 3722 Jun, [facility] [place] [facility] [address] [id number] [place] [address]- 5763 May, [facility] [place] [facility] [address] [id number] [place] [address]- 2928 May, [facility] [place] [facility] [address] [id number] [place] [address]- 2438 May, [facility] [place] [facility] [address] [id number] [place] [address]- 6449 May, [facility] [place] [facility] [address] [id number] [place] [address]- 0992 May, [facility] [place] [facility] [address] [facility] [id number] [place] [address]- 4628 May, [facility] [place] [facility] [address] [facility] [id number] [place] [address]- 7217 May, [facility] [place] [facility] [address] [facility] [id number] [place] [address]- 6717 May, [facility] [place] [facility] [address] [facility] [id number] [place] [address]- 5461 07 May, 2013 [facility] [place] [facility] [address] [facility] [id number] [place] [address]- 9053 07 May, 2013 [facility] [place] [facility] [address] [facility] [id number] [place] [address]- 0137 06 May, 2013 [facility] [place] [facility] [address] [id number] [place] [address]- 9564 Apr, [facility] [place] [facility] [address] [id number] [place] [address]- 0659 Apr, [facility] [place] [facility] [address] [id number] [place] [address]- 1068 Mar, [facility] [place] [facility] [address] [id number] [place] [address]- 2034 Mar, [facility] [place] [facility] [address] [id number] [place] [address]- 1510 Mar, [facility] [place] [facility] [address] [id number] [place] [address]- 8165 Mar, [facility] [place] [facility] [address] [id number] [place] [address]- 6938 Mar, [facility] [place] [facility] [address] [id number] [place] [address]- 2761 Jan, [facility] [place] [facility] [address] [id number] [place] [address]- 5650 Jan, [facility] [place] [facility] [address] [id number] [place] [address]- 1992 Jan, [facility] [place] [facility] [address] [id number] [place] [address]- 2151 Jan, [facility] [place] [facility] [address] [id number] [place] [address]- 2044 Jan, [facility] [place] [facility] [address] [id number] [place] [address]- 8646 Jan, [facility] [place] [facility] [address] [id number] [place] [address]- 9002 Jan, [facility] [place] [facility] [address] [id number] [place] [address]- 2428 Jan, [facility] [place] [facility] [address] [id number] [place] [address]- 3374 Jan, [facility] [address] [id number] [place] [address]- 5902 Jan, [facility] [place] [facility] [address] [id number] [place] [address]- 8186 Dec, [facility] [place] [facility] [address] [id number] [place] [address]- 2181 Oct, [facility] [place] [facility] [address] [id number] [place] [address]- 0506 Oct, [facility] [address] [id number] [place] [address]- 1950 Oct, [facility] [place] [facility] [address] [id number] [place] [address]- 3674 Oct, [facility] [place] [facility] [address] [id number] [place] [address]- 2482 Oct, [facility] [place] [facility] [address] [id number] [place] [address]- 5536 Oct, [facility] [address] [id number] [place] [address]- 5812 Sep, [facility] [place] [facility] [address] [id number] [place] [address]- 8624 August, [facility] [place] [facility] [address] [id number] [place] [address]- 7183 August, [facility] [place] [facility] [address] [id number] [place] [address] 2543 August, [facility] [place] [facility] [address] [id number] [place] [address]- 8728 August, [facility] [place] [facility] [address] [id number] [place] [address]- 0792 August, [facility] [place] [facility] [address] [id number] [place] [address]- 2546 May, [facility] [place] [facility] [address] [id number] [place] [address]- 0511 15 Apr, 2012 [facility] [address] [id number] [place] [address]- 5643 Apr, [facility] [address] [id number] [place] [address]- 5976 Apr, [facility] [address] [id number] [place] [address]- 9956 Apr, [facility] [address] [id number] [place] [address]- 5060 Apr, [facility] [address] [place] [id number] Mar, [facility] [address] [id number] [place] [address]- 2129 31 Mar, 2012 [facility] [address] [id number] [place] [address]- 3897 19 Mar, 2012 [facility] [address] [id number] [place] [address]- 6527 19 Mar, 2012 [facility] [address] [id number] [place] [address]- 5080 17 Mar, 2012 [facility] [address] [id number] [place] [address]- 6355 17 Mar, 2012 [facility] [address] [id number] [place] [address]- 3441 13 Mar, 2012 [facility] [address] [id number] [place] [address]- 9846 13 Mar, 2012 [facility] [address] [id number] [place] [address]- 1521 13 Mar, 2012 [facility] [address] [id number] [place] [address]- 8064 13 Mar, 2012 [facility] [address] [id number] [place] [address]- 6346 12 Mar, 2012 [facility] [place] [facility] [address] [id number] [place] [address]- 9845 Mar, [facility] [place] [facility] [address] [id number] [place] [address]- 3426 Mar, [facility] [place] [facility] [address] [id number] [place] Mar, [facility] [place] [facility] [address] [id number] [place] [address]- 0146 Mar, [facility] [place] [facility] [address] [id number] [place] [address]- 3349 Mar, [facility] [place] [facility] [address] [id number] [place] [address]- 5412 Mar, [facility] [place] [facility] [address] [id number] [place] [address]- 6031 Mar, [facility] [place] [facility] [address] [id number] [place] [address]- 3542 Mar, [facility] [place] [facility] [address] [id number] [place] [address]- 5350 Mar, [facility] [place] [facility] [address] [id number] [place] [address]- 0352 Feb, [facility] [place] [facility] [address] [id number] [place] [address]- 5882 Feb, [facility] [place] [facility] [address] [id number] [place] [address]- 1589 Feb, [facility] [place] [facility] [address] [id number] [place] [address]- 8498 Feb, [facility] [place] [facility] [address] [id number] [place] [address]- 0836 Jan, [facility] [place] [facility] [address] [id number] [place] [address]- 4239 Jan, [facility] [place] [facility] [address] [id number] [place] [address]- 9116 Jan, [facility] [place] [facility] [address] [id number] [place] [address]- 9948 29 Jan, 2012 [facility] [place] [facility] [address] [id number] [place] [address]- 1266 29 Jan, 2012 [facility] [place] [facility] [address] [id number] [place] [address]- 4416 Jan, [facility] [place] [facility] [address] [id number] [place] [address]- 7036 Jan, [facility] [place] [facility] [address] [id number] [place] [address]- 8503 Jan, [facility] [place] [facility] [address] [id number] [place] [address]- 7095 Jan, [facility] [place] [facility] [address] [id number] [place] [address]- 7992 27 Dec, 2011 [facility] [place] [facility] [address] [id number] [place] [address]- 3938 14 Dec, 2011 [facility] [place] [facility] [address] [id number] [place] [address]- 5966 12 Dec, 2011 [facility] [place] [facility] [address] [id number] [place] [address]- 9374 06 Dec, 2011 [facility] [place] [facility] [address] [id number] [place] [address]- 3295 06 Dec, 2011 [facility] [place] [facility] [address] [id number] [place] [address]- 9382 Nov, [facility] [place] [facility] [address] [id number] [place] [address]- 4754 Nov, [facility] [place] [facility] [address] [id number] [address]- 6003 Nov, [facility] [place] [facility] [address] [id number] [address]- 1491 14 Nov, 2011 [facility] [place] [facility] [address] [id number] [place] [address]- 9233 13 Nov, 2011 [facility] [place] [facility] [address] [id number] [place] [address]- 8912 09 Nov, 2011 [facility] [place] [facility] [address] [id number] [place] [address]- 9637 Nov, [facility] [place] [facility] [address] [id number] [place] [address]- 6380 Nov, [facility] [place] [facility] [address] [id number] [place] [address]- 8656 Nov, [facility] [place] [facility] [address] [id number] [place] [address]- 4274 Oct, [facility] [place] [facility] [address] [id number] [place] [address]- 9906 Oct, [facility] [place] [facility] [address] [id number] [place] [address]- 4527 Sep, [facility] [place] [facility] [address] [id number] [place] [address]- 4860 Sep, [facility] [place] [facility] [address] [id number] [place] [address]- 7507 Sep, [facility] [place] [facility] [address] [id number] [place] [address]- 8612 August, [facility] [place] [facility] [address] [id number] [place] [address]- 6931 30 Jul, 2011 [facility] [place] [facility] [address] [id number] [place] [address]- 6371 27 Jul, 2011 [facility] [place] [facility] [address] [id number] [place] [address]- 8307 27 Jul, 2011 [facility] [place] [facility] [address] [id number] [place] [address]- 2302 18 Jul, 2011 [facility] [place] [facility] [address] [id number] [place] [address]- 3151 16 Jul, 2011 [facility] [place] [facility] [address] [id number] [place] [address]- 5859 16 Jul, 2011 [facility] [place] [facility] [address] [id number] [place] [address]- 7727 16 Jul, 2011 [facility] [place] [facility] [address] [id number] [place] [address]- 8833 14 Jul, 2011 [facility] [place] [facility] [address] [id number] [place] [address]- 4445 12 Jul, 2011 [facility] [place] [facility] [address] [id number] [place] [address]- 0759 19 Jun, 2011 [facility] [place] [facility] [address] [id number] [place] [address]- 2788 18 Jun, 2011 [facility] [place] [facility] [address] [id number] [place] [address]- 9752 15 Jun, 2011 [facility] [place] [facility] [address] [id number] [place] [address]- 7769 Jun, [facility] [place] [facility] [address] [id number] [place] [address]- 1506 Jun, [facility] [place] [facility] [address] [id number] [place] [address]- 6792 Jun, [facility] [place] [facility] [address] [id number] [place] [address]- 7953 Jun, [facility] [place] [facility] [address] [id number] [place] [address]- 7995 Jun, [facility] [place] [facility] [address] [id number] [place] [address]- 7510 May, [facility] [place] [facility] [address] [id number] [place] [address]- 3386 May, [facility] [place] [facility] [address] [id number] [place] [address]- 3986 May, [facility] [place] [facility] [address] [id number] [place] [address]- 8942 Apr, [facility] [address] [id number] [place] [address]- 6901 Apr, [facility] [place] [facility] [address] [id number] [place] [address]- 1477 Apr, [facility] [place] [facility] [address] [facility] [id number] [place] [address]- 9776 Mar, [facility] [place] [facility] [address] [id number] [place] [address]- 1737 Mar, [facility] [place] [facility] [address] [id number] [place] [address]- 1010 15 Mar, 2011 [facility] [place] [facility] [address] [id number] [place] [address]- 9520 Mar, [facility] [place] [facility] [address] [facility] [id number] [place] [address]- 9753 Mar, [facility] [place] [address] [id number] [place] [address]- 6185 Mar, [facility] [place] [address] [id number] [place] [address]- 8112 Mar, [facility] [place] [address] [facility] [id number] [place] [address]- 4021 Mar, [facility] [address] [id number] [place] [address]- 9696 08 Mar, 2011 [facility] [place] [facility] [address] [id number] [place] [address]- 9612 Mar, [facility] [place] [facility] [address] [id number] [place] [address]- 3403 06 Mar, 2011 [facility] [place] [facility] [address] [id number] [place] [address]- 1998 06 Mar, 2011 [facility] [place] [address] [facility] [id number] [place] [address]- 1287 06 Mar, 2011 [facility] [place] [facility] [address] [id number] [place] [address]- 4572 05 Mar, 2011 [facility] [place] [facility] [address] [id number] [place] [address]- 2119 Feb, [facility] [place] [facility] [address] [id number] [place] [address]- 6011 Feb, [facility] [place] [facility] [address] [id number] [place] [address]- 6926 Feb, [facility] [place] [facility] [address] [id number] [place] [address]- 3132 Jan, [facility] [place] [facility] [address] [id number] [place] [address]- 2720 Jan, [facility] [place] [facility] [address] [id number] [place] [address]- 4812 Oct, [facility] [place] [facility] [address] [id number] [place] [address]- 7414 Sep, [facility] [place] [facility] [address] [id number] [place] [address]- 2659 Mar, [facility] [place] [facility] [address] [id number] [place] [address]- 3927 Mar, [facility] [place] [facility] [address] [id number] [place] [address]- 7255 Feb, [facility] [place] [facility] [address] [id number] [place] [address]- 5227 Feb, [facility] [place] [facility] [address] [id number] [place] [address]- 6316 Jan, [facility] [place] [facility] [address] [id number] [place] [address]- 1626 Jan, [facility] [place] [facility] [address] [id number] [place] [address]- 6444 Mar, [facility] [place] [facility] [address] [id number] [place] [address]- 1632 Feb, [facility] [address] [id number] [address]- 9228 Feb, [facility] [id number] [address]- 1046 Feb, [facility] [address] [id number] [address] 2546 Feb, [facility] [id number] [address]- 4892 Jan, [facility] [id number] [address]- 7327 Dec, [facility] [address] [id number] [address]- 6697 Nov, IMMUNIZATIONS No Known Immunizations SOCIAL HISTORY Never Assessed REASON FOR VISIT H&P for foot surgery PLAN OF CARE Activity Details Follow Up prn Reason: VITAL SIGNS MEDICATIONS Unknown Medications RESULTS No Results PROCEDURES Procedure Date Ordered Result Body Site Minor complication (15 mins) May 06, 2017 INSTRUCTIONS MEDICATIONS ADMINISTERED No Known Medications MEDICAL (GENERAL) HISTORY Type Description Date Hospitalization History [facility] March 2015
--- OUTSIDE RECORDS SUMMARY | 2017-10-27 10:44 | XMS REPORT ---
Author Author STEPHANIE CHRISTIANSEN [facility] Address [address] [place] [address] Care Team Providers Care Art Supervisor Name Role Phone STEPHANIE CHRISTIANSEN Unavailable PROBLEMS Type Condition ICD9-CM Code [id number] Code Onset Dates Condition Status SNOMED Code Problem Hyperlipidemia, unspecified hyperlipidemia type E78.5 Active 10446068 Problem Long-term insulin use Z79.4 Active 840019898 Problem Abnormal carotid ultrasound R93.8 Active 299420519 Problem Type 2 diabetes mellitus with complication E11.8 Active 35678963 Problem Positive TB test R76.11 Active 340443156 Problem Vascular dementia with behavior disturbance F01.51 Active 723721047 Problem PVD (peripheral vascular disease) I73.9 Active 830929780 Problem Pain R52 Active 04551901 Problem Other chronic osteomyelitis of left foot M86.672 Active 661272858 Problem Nicotine dependence, unspecified, uncomplicated F17.200 Active 227719039 Problem Peripheral vascular disease due to secondary diabetes E13.51 Active 5355958 Problem Nonintractable epilepsy without status epilepticus, unspecified epilepsy type G40.909 Active 180290108 Problem Recurrent major depressive disorder, remission status unspecified F33.9 Active 05689782 Problem Anxiety F41.9 Active 51140227 Problem Generalized anxiety disorder F41.1 Active 59524853 Problem Vascular dementia F01.50 Active 796255773 Problem Pseudobulbar affect F48.2 Active 57453510 Problem Coronary artery disease involving afognak coronary artery of afognak heart without angina pectoris I25.10 Active 2834286291344 Problem Gastroesophageal reflux disease without esophagitis K21.9 Active 711262610 Problem Cerebrovascular accident (CVA) due to other mechanism I63.8 Active 315857792 Problem Pulmonary emphysema, unspecified emphysema type J43.9 Active 05758077 Problem Neuropathy G62.9 Active 956617487 Problem Depression F32.9 Active 65304237 Problem Essential hypertension I10 Active 28518301 Problem Acquired hypothyroidism E03.9 Active 299160203 ALLERGIES No Information ENCOUNTERS Encounter Location Date Diagnosis [facility] [address] [place] [id number] Jul, [facility] [address] [address] Jul, Generalized anxiety disorder F41.1 [facility] [id number] [place] [address] [id number] Jun, Generalized anxiety disorder F41.1 [facility] [id number] [place] [address] [id number] Jun, [facility] [address] [id number] May, [facility] [id number] [place] [address] 89722- 7156 May, [facility] [id number] [place] [address] [id number] May, Generalized anxiety disorder F41.1 [facility] [address] [place] [address] [id number]- 2756 Apr, [facility] [address] [place] [id number] Apr, Other chronic osteomyelitis of left foot M86.672 ; Type 2 diabetes mellitus with complication E11.8 ; Vascular dementia F01.50 ; Long-term insulin use Z79.4 ; PVD (peripheral vascular disease) I73.9 and Nicotine abuse 305.1 [facility] [address] [address] Apr, [facility] [id number] [place] [address] [id number] Apr, [facility] [address] [place] [address] 57636- 1723 Apr, Pain R52 and Generalized anxiety disorder F41.1 [facility] [address] [address] 4[address] Mar, [facility] [address] [place] [address] 66469- 1602 Mar, Pain R52 and Generalized anxiety disorder F41.1 [facility] [address] [place] [id number] Feb, Depression F32.9 ; Type 2 diabetes mellitus with complication E11.8 and Nicotine dependence, unspecified, uncomplicated F17.200 [facility] [id number] [place] [address] 16061- 0713 Feb, Generalized anxiety disorder F41.1 and Pain R52 [facility] [id number] [place] [address] 88600- 9413 Feb, [facility] [id number] [place] [address] 97833- 4234 Jan, [facility] [id number] [place] [address] 18182- 1107 Jan, Generalized anxiety disorder F41.1 and Pain R52 [facility] [id number] [place] [address] 48875- 9225 Jan, [facility] [id number] [place] [address] [id number] Dec, Generalized anxiety disorder F41.1 and Pain R52 [facility] [address] [place] [id number] Dec, Vascular dementia F01.50 ; Pain of left leg M79.605 ; Pain in right leg M79.604 and Type 2 diabetes mellitus with complication E11.8 [facility] [address] [place] [address] 25052- 2383 Dec, Pain R52 [facility] [id number] [place] [address] 18434- 3521 Dec, [facility] [id number] [place] [address] 93318- 4280 Nov, [facility] [id number] [place] [address] 21692- 6462 Nov, Pain R52 and Generalized anxiety disorder F41.1 [facility] [address] [place] [id number] Nov, Depression F32.9 ; Vascular dementia with behavior disturbance F01.51 and Anxiety F41.9 [facility] [address] [place] [address] 95236- 1109 Nov, Pain R52 and Generalized anxiety disorder F41.1 [facility] [id number] [place] [address] 37519- 0499 Oct, Generalized anxiety disorder F41.1 [facility] [id number] [place] [address] 74389- 8247 Oct, Pain R52 [facility] [id number] [place] [address] 56832- 8139 Sep, [facility] [address] [place] [id number] Sep, Generalized anxiety disorder F41.1 [facility] [id number] [place] [address] 94577- 2451 Sep, Pain R52 [facility] [id number] [place] [address] 40000- 1463 Sep, Generalized anxiety disorder F41.1 [facility] [id number] [place] [address] 52766- 1707 August, [facility] [id number] [place] [address] 74474- 0374 August, [facility] [id number] [place] [address] 04021- 6746 August, Pain R52 [facility] [id number] [place] [address] 79280- 5997 August, Generalized anxiety disorder F41.1 [facility] [id number] [place] [address] [id number] August, Generalized anxiety disorder F41.1 [facility] [id number] [place] [address] 52321- 5350 Jul, Pain R52 [facility] [address] [place] [address] 78243- 6071 Jul, [facility] [address] [id number] Jul, [facility] [id number] [place] [address] 73490- 4027 Jun, [facility] [address] [id number] Jun, Depression F32.9 [facility] [id number] [place] [address] 43983- 8972 Jun, Pain R52 [facility] [id number] [place] [address] 07890- 7747 Jun, [facility] [address] [facility] [place] [id number] Jun, Vascular dementia F01.50 and Depression F32.9 [facility] [id number] [place] [address] 24372- 5183 May, Pain R52 [facility] [address] 94436- 7415 15 May, 2016 [facility] [id number] [place] [address] 77761- 4402 May, Pseudobulbar affect F48.2 [facility] [id number] [place] [address] 88747- 8883 09 May, 2016 [facility] [address] [place] [address] 13375- 6887 May, PVD (peripheral vascular disease) I73.9 [facility] [id number] [place] [address] 30793- 4365 08 May, 2016 Vascular dementia with behavior disturbance F01.51 [facility] [id number] [place] [address] 02255- 5136 May, Vascular dementia with behavior disturbance F01.51 [facility] [id number] [place] [address] 72706- 1593 Apr, [facility] [id number] [place] [address] 14921- 9500 Apr, Pain R52 [facility] [address] [place] [id number] Apr, Generalized anxiety disorder F41.1 ; PVD (peripheral vascular disease) I73.9 and Type 2 diabetes mellitus with complication E11.8 [facility] [id number] [place] [address] 17627- 3040 Apr, Vascular dementia with behavior disturbance F01.51 [facility] [id number] [place] [address] 22033- 4879 Apr, [facility] [id number] [place] [address] 57073- 0097 Apr, Vascular dementia with behavior disturbance F01.51 [facility] [id number] [place] [address] 25277- 5213 Apr, [facility] [address] [id number] Mar, [facility] [id number] [place] [address] 47019- 9965 Mar, Type 2 diabetes mellitus with complication E11.8 ; Vascular dementia with behavior disturbance F01.51 and Depression F32.9 [facility] [id number] [place] [address] 46201- 6962 Mar, [facility] [id number] [place] [address] 70759- 4220 Feb, [facility] [id number] [place] [address] 99412- 1159 Feb, Viral illness B34.9 [facility] [id number] [place] [address] 54927- 2467 Jan, Diabetes 250.00 [facility] [address] [facility] [id number] [address]- 6698 Jan, [facility] [address] [address]- 7412 Jan, [facility] [address] [address]- 1230 Jan, [facility] [address] [place] [id number] Jan, Vascular dementia with behavior disturbance F01.51 and Type 2 diabetes mellitus with complication E11.8 [facility] [address] [facility] [id number] [address]- 9127 Jan, Pain R52 [facility] [id number] [place] [address] 48523- 1066 Jan, Pain R52 [facility] [id number] [place] [address] 77601- 6680 Dec, [facility] [address] [address]- 2580 Nov, [facility] [address] [place] [id number] Nov, Type 2 diabetes mellitus with complication E11.8 [facility] [address] [address]- 9325 Nov, [facility] [address] [address]- 3430 Oct, [facility] [address] [address]- 9848 Oct, [facility] [address] [address]- 1861 Oct, Vascular dementia with behavior disturbance F01.51 and Type 2 diabetes mellitus with complication E11.8 [facility] [address] [address]- 0755 August, Type 2 diabetes mellitus with complication E11.8 and Vascular dementia with behavior disturbance F01.51 [facility] [address] [address]- 3505 August, Vascular dementia F01.50 [facility] [address] [address]- 8731 August, Vascular dementia with behavior disturbance F01.51 [facility] [address] [address]- 6181 Jul, Vascular dementia with behavior disturbance F01.51 [facility] [address] [address]- 3812 Jun, Vascular dementia F01.50 [address] [address] [place] [address] 82705- 8536 Jun, Type 2 diabetes mellitus with complication E11.8 ; Long- term insulin use Z79.4 and Vascular dementia with behavior disturbance F01.51 [place] [address] [address]- 4396 Jun, Vascular dementia with behavior disturbance F01.51 [facility] [address] [address]- 5431 Jun, Vascular dementia F01.50 [facility] [address] [address]- 8027 Apr, [address] [address] [address]- 8201 Apr, [address] [address] [address]- 2065 Apr, [facility] [address] [address]- 5266 Apr, Type 2 diabetes mellitus with complication E11.8 ; Depression F32.9 and Long-term insulin use Z79.4 [facility] [id number] [address]- 0343 Mar, [facility] [address] [place] [id number] Mar, Depression F32.9 ; Type 2 diabetes mellitus with complication E11.8 and Long-term insulin use Z79.4 [facility] [id number] [place] [address] 14261- 7896 Feb, [facility] [id number] [place] [address] 341425- 5698 Feb, Hyperthyroidism E05.90 [facility] [id number] [place] [address] 32834- 3737 Feb, Hyperthyroidism E05.90 [facility] [id number] [place] [address] 37908- 1042 Feb, [facility] [id number] [place] [address] 07842- 7326 Jan, [facility] [id number] [place] [address] 49397- 9262 Dec, Nicotine addiction 305.1 [facility] [id number] [place] [address] 36780- 3780 Oct, Nicotine abuse 305.1 [facility] [id number] [place] [address] 79126- 8508 Oct, [facility] [address] [place] [address] 98336- 4884 August, [facility] [address] [place] [id number] August, History of drug abuse 305.93 and Diabetes 250.00 [facility] [address] [address]- 5111 Jul, [facility] [id number] [place] [address] 53689- 0816 Jul, [facility] [address] [address]- 8800 Jun, [facility] [id number] [place] [address] 58928- 3826 Jun, [facility] [address] [id number] [place] [address]- 3402 Jun, [facility] [place] [facility] [address] [id number] [place] [address]- 9052 Jun, [facility] [place] [facility] [address] [id number] [place] [address]- 8830 Jun, [facility] [place] [facility] [address] [id number] [place] [address]- 3572 Jun, [facility] [place] [facility] [address] [id number] [place] [address]- 4047 May, [facility] [place] [facility] [address] [id number] [place] [address]- 8375 May, [facility] [address] [id number] [place] [address]- 2192 May, [facility] [place] [facility] [address] [id number] [place] [address]- 0493 May, [facility] [address] [id number] [place] [address]- 9234 May, [facility] [place] [facility] [address] [id number] [place] [address]- 0684 Apr, [facility] [address] [id number] [address]- 0008 Apr, [place] [place] [id number] Apr, [facility] [place] [facility] [address] [id number] [address]- 0136 Apr, [facility] [place] [facility] [address] [id number] [address]- 4902 Apr, [facility] [place] [facility] [address] [id number] [place] [address]- 7724 Apr, [facility] [place] [facility] [address] [id number] [place] [address]- 8646 Apr, [facility] [address] [id number] [place] [address]- 5220 Apr, [facility] [address] [id number] [place] [address]- 2665 Mar, [facility] [address] [id number] [place] [address]- 0979 Mar, [facility] [address] [id number] [place] [address]- 9096 Mar, [facility] [address] [id number] [place] [address]- 3082 Mar, [facility] [address] [id number] [place] [address]- 8875 Mar, [facility] [address] [id number] [place] [address]- 5626 Mar, [facility] [address] [id number] [place] [address]- 0703 Mar, [facility] [address] [id number] [place] [address]- 3723 Mar, [facility] [address] [id number] [place] [address]- 3322 Feb, [facility] [address] [id number] [place] [address]- 4756 Feb, [facility] [address] [id number] [address]- 9583 Feb, [facility] [address] [id number] [place] [address]- 8114 Feb, [facility] [address] [id number] [place] [address]- 6673 Feb, [facility] [address] [place] [id number] Feb, [facility] [place] [facility] [address] [id number] [place] [address]- 0506 Feb, [facility] [place] [facility] [address] [id number] [place] [address]- 6062 Feb, [facility] [place] [facility] [address] [id number] [place] [address]- 6934 Feb, [facility] [place] [facility] [address] [id number] [place] 5278 Feb, [facility] [place] [facility] [address] [id number] [place] [address]- 7600 Jan, [facility] [place] [facility] [address] [id number] [place] [address]- 9294 30 Jan, 2014 [facility] [place] [facility] [address] [id number] [place] [address]- 2891 Jan, [facility] [place] [facility] [address] [id number] [place] [address]- 3643 17 Jan, 2014 [facility] [place] [facility] [address] [id number] [place] [address]- 7119 16 Jan, 2014 [facility] [place] [facility] [address] [id number] [place] [address]- 7001 16 Jan, 2014 [facility] [place] [facility] [address] [id number] [place] [address]- 3953 15 Jan, 2014 [facility] [place] [facility] [address] [id number] [place] [address]- 7752 13 Jan, 2014 [facility] [place] [facility] [address] [id number] [place] [address]- 0901 Jan, [facility] [place] [facility] [address] [id number] [place] [address]- 0727 Jan, [facility] [place] [facility] [address] [id number] [place] [address]- 6490 Jan, [facility] [place] [facility] [address] [id number] [place] [address]- 8575 09 Jan, 2014 [facility] [place] [facility] [address] [id number] [place] [address]- 7335 Jan, 2013 [facility] [place] [facility] [address] [id number] [place] [address]- 8324 Jan, 2013 [facility] [place] [facility] [address] [id number] [place] [address]- 8585 Jan, 2013 [facility] [place] [facility] [address] [id number] [place] [address]- 9104 Jan, 2013 [facility] [place] [facility] [address] [id number] [place] [address]- 4251 Jan, 2013 [facility] [place] [facility] [address] [id number] [place] [address]- 9379 Dec, 2013 [facility] [place] [facility] [address] [id number] [place] [address]- 2748 Dec, 2013 [facility] [place] [facility] [address] [id number] [place] [address]- 5917 Dec, 2013 [facility] [place] [facility] [address] [id number] [place] [address]- 8591 Dec, 2013 [facility] [place] [facility] [address] [id number] [place] [address]- 6573 Dec, 2013 [facility] [place] [facility] [address] [id number] [address]- 5147 Sep, 2013 [facility] [place] [facility] [address] [id number] [address] 08 Sep, 2013 [facility] [place] [facility] [address] [id number] [place] [address] Sep, 2013 [facility] [place] [facility] [address] [id number] [place] [address] Sep, 2013 [facility] [place] [facility] [address] [id number] [place] [address] 08 Sep, 2013 [facility] [place] [facility] [address] [id number] [place] [address] Dec, 2013 [facility] [place] [facility] [address] [id number] [place] [address] Dec, 2013 [facility] [place] [facility] [address] [id number] [place] [address] Dec, [facility] [place] [facility] [address] [id number] [place] [address] Dec, [facility] [place] [facility] [address] [id number] [place] [address] Nov, [facility] [place] [facility] [address] [id number] [place] [address] Nov, [facility] [place] [facility] [address] [id number] [place] [address] Nov, [facility] [place] [facility] [address] [id number] [place] [address] Nov, [facility] [place] [facility] [address] [id number] [place] [address] Nov, [facility] [place] [facility] [address] [id number] [place] [address] Nov, [facility] [place] [facility] [address] [id number] [place] [address] Nov, [facility] [place] [facility] [address] [id number] [place] [address] Nov, [facility] [place] [facility] [address] [id number] [place] [address] Nov, [facility] [place] [facility] [address] [id number] [place] [address] Nov, [facility] [place] [facility] [address] [id number] [place] [address] Nov, [facility] [place] [facility] [address] [id number] [place] [address] Nov, [facility] [place] [facility] [address] [id number] [place] [address] Nov, [facility] [place] [facility] [address] [id number] [facility] [place] [address] Nov, [facility] [place] [facility] [address] [id number] [place] [address] Oct, [facility] [place] [facility] [address] [id number] [place] [address] Oct, [facility] [place] [facility] [address] [id number] [place] [address] Oct, [facility] [place] [facility] [address] [id number] [place] [address] Oct, [facility] [place] [facility] [address] [id number] [place] [address] Oct, [facility] [place] [facility] [address] [id number] [place] [address] Oct, [facility] [place] [facility] [address] [address] [id number] [place] [address] Oct, [facility] [place] [facility] [address] [id number] [place] [address]8 Oct, [facility] [place] [facility] [address] [id number] [place] [address] 8333 Oct, [facility] [place] [facility] [address] [id number] [place] [address] 3616 Oct, [facility] [place] [facility] [address] [id number] [facility] [place] [address] Oct, [facility] [place] [facility] [address] [id number] [place] [address] 8[address] Oct, [facility] [place] [facility] [address] [id number] [place] [address]506 Oct, [facility] [place] [facility] [address] [id number] [place] [address] 9761 Oct, [facility] [place] [facility] [address] [id number] [place] [address] 8708 Oct, [facility] [place] [facility] [address] [id number] [place] [address] 6466 Oct, [facility] [place] [facility] [address] [id number] [place] [address] 1006 Oct, [facility] [place] [facility] [address] [id number] [place] [address] 9149 Oct, [facility] [place] [facility] [address] [id number] [place] [address]- 9430 Oct, [facility] [place] [facility] [address] [id number] [place] [address] 4017 Oct, [facility] [place] [facility] [address] [id number] [place] [address] 2416 Sep, [facility] [place] [facility] [address] [id number] [place] [address]- 6125 Sep, [facility] [place] [facility] [address] [id number] [place] [address] 0212 Sep, [facility] [place] [facility] [address] [id number] [place] [address] 5197 Sep, [facility] [place] [facility] [address] [id number] [place] [address]- 3750 Sep, [facility] [place] [facility] [address] [id number] [address] 9780 Sep, [facility] [place] [facility] [address] [id number] [place] [address]- 5328 August, [facility] [place] [facility] [address] [id number] [place] [address] 8539 August, [facility] [place] [facility] [address] [id number] [place] [address]- 1510 Jul, [facility] [place] [facility] [address] [id number] [place] [address]- 8773 30 Jul, 2013 [facility] [place] [facility] [address] [id number] [place] [address] Jul, [facility] [place] [facility] [address] [id number] [place] [address] Jul, [facility] [place] [facility] [address] [id number] [place] [address]- 7106 Jul, [facility] [place] [facility] [address] [id number] [place] [address]- 3378 Jul, [facility] [place] [facility] [address] [id number] [place] [address]- 6135 Jul, [facility] [place] [facility] [address] [id number] [place] [address]- 3650 Jul, [facility] [place] [facility] [address] [id number] [place] [address]- 0857 Jun, [facility] [place] [facility] [address] [id number] [place] [address]- 3084 Jun, [facility] [place] [facility] [address] [id number] [place] [address]- 7772 Jun, [facility] [place] [facility] [address] [facility] [id number] [place] [address]- 6867 Jun, [facility] [place] [facility] [address] [id number] [place] [address]- 4256 Jun, [facility] [place] [facility] [address] [facility] [id number] [place] [address]- 6630 May, [facility] [place] [facility] [address] [id number] [place] [address]- 7726 May, [facility] [place] [facility] [address] [id number] [place] [address]- 4566 May, [facility] [place] [facility] [address] [id number] [place] [address] May, [facility] [place] [facility] [address] [id number] [place] [address]- 0521 May, [facility] [place] [facility] [address] [id number] [place] [address]- 4486 May, [facility] [place] [facility] [address] [id number] [place] [address]- 0490 May, [facility] [place] [facility] [address] [id number] [place] [address] 1930 May, [facility] [place] [facility] [address] [id number] [place] [address]- 2695 May, [facility] [place] [facility] [address] [id number] [place] [address]- 2712 May, [facility] [place] [facility] [address] [id number] [place] [address]- 5687 May, [facility] [place] [facility] [address] [id number] [place] [address]- 3823 Apr, [facility] [place] [facility] [address] [id number] [place] [address]- 4359 Apr, [facility] [place] [facility] [address] [facility] [id number] [place] [address]- 9922 Mar, [facility] [place] [facility] [address] [id number] [place] [address]- 6759 Mar, [facility] [place] [facility] [address] [id number] [address] 5540 Mar, [facility] [place] [facility] [address] [id number] [place] [address]- 4566 Mar, [facility] [place] [facility] [address] [facility] [id number] [place] [address] 3730 Mar, [facility] [place] [facility] [address] [facility] [id number] [place] [address]- 2358 Jan, [facility] [place] [facility] [address] [id number] [place] [address]- 5218 Jan, [facility] [address] [id number] [place] [address]- 9371 Jan, [facility] [place] [facility] [address] [id number] [place] [address]- 8488 Jan, [facility] [address] [id number] [place] [address]- 5739 Jan, [facility] [place] [facility] [address] [id number] [place] [address]- 9190 Jan, [facility] [address] [id number] [place] [address]- 0525 Jan, [facility] [place] [facility] [address] [id number] [place] [address]- 6209 Jan, [facility] [place] [facility] [address] [id number] [place] [address]- 5404 Jan, [facility] [address] [id number] [place] [address]- 5577 Jan, [facility] [place] [facility] [address] [id number] [place] [address]- 1223 Dec, [facility] [address] [id number] [place] [address]- 1658 Oct, [facility] [place] [facility] [address] [id number] [place] [address]- 8492 Oct, [facility] [place] [facility] [address] [id number] [place] [address]- 1460 Oct, [facility] [place] [facility] [address] [id number] [place] [address]- 4192 Oct, [facility] [place] [facility] [address] [id number] [place] [address]- 1610 Oct, [facility] [place] [facility] [address] [id number] [place] [address]- 8541 Oct, [facility] [place] [address] [id number] [place] [address]- 8659 Sep, [facility] [place] [address] [id number] [place] [address]- 2876 August, [facility] [place] [address] [id number] [place] [address]- 8536 August, [facility] [address] [id number] [place] [address]- 2266 August, [facility] [address] [id number] [place] [address]- 4160 August, [facility] [place] [address] [id number] [place] [address]- 1976 August, [facility] [place] [address] [id number] [place] [address]- 8096 May, [facility] [address] [id number] [place] [address]- 9114 Apr, [facility] [place] [address] [id number] [place] [address]- 2091 Apr, [facility] [place] [address] [id number] [place] [address]- 8711 Apr, [facility] [place] [address] [id number] [place] [address]- 6050 Apr, [facility] [place] [address] [id number] [place] [address]- 7802 Apr, [facility] [address] [place] [id number] Mar, [facility] [place] [address] [id number] [place] [address]- 1236 Mar, [facility] [place] [address] [id number] [place] [address]- 2247 Mar, [facility] [place] [address] [id number] [place] [address]- 4966 19 Mar, 2012 [facility] [place] [facility] [address] [id number] [place] [address]- 0856 17 Mar, 2012 [facility] [place] [facility] [address] [id number] [place] [address]- 9076 17 Mar, 2012 [facility] [place] [facility] [address] [id number] [place] 13 Mar, 2012 [facility] [place] [facility] [address] [id number] [place] [address]- 1776 13 Mar, 2012 [facility] [place] [facility] [address] [id number] [place] [address]- 8506 13 Mar, 2012 [facility] [place] [facility] [address] [id number] [place] [address]- 9846 13 Mar, 2012 [facility] [place] [facility] [address] [id number] [place] [address]- 8649 12 Mar, 2012 [facility] [place] [facility] [address] [id number] [place] [address]- 5418 12 Mar, 2012 [facility] [place] [facility] [address] [id number] [place] [address]- 9318 10 Mar, 2012 [facility] [place] [facility] [address] [id number] [place] [address]- 8196 10 Mar, 2012 [facility] [place] [facility] [address] [id number] [place] [address]- 4940 07 Mar, 2012 [facility] [place] [facility] [address] [id number] [address]- 6426 07 Mar, 2012 [facility] [place] [facility] [address] [id number] [place] [address]- 0266 06 Mar, 2012 [facility] [place] [facility] [address] [id number] [place] [address]- 4296 06 Mar, 2012 [facility] [place] [facility] [address] [id number] [place] [address]- 7236 05 Mar, 2012 [facility] [place] [facility] [address] [id number] [place] [address]- 0601 Mar, [facility] [place] [facility] [address] [id number] [place] [address]- 9322 Feb, [facility] [place] [facility] [address] [id number] [place] [address]- 8404 Feb, [facility] [place] [facility] [address] [id number] [place] [address]- 5561 Feb, [facility] [place] [facility] [address] [id number] [place] [address]- 5254 Feb, [facility] [place] [facility] [address] [id number] [place] [address]- 5156 Jan, [facility] [place] [facility] [address] [id number] [place] [address]- 9886 Jan, [facility] [place] [facility] [address] [id number] [place] [address]- 6119 Jan, [facility] [place] [facility] [address] [id number] [place] [address]- 6226 Jan, [facility] [place] [facility] [address] [facility] [id number] [place] [address]- 6470 Jan, [facility] [place] [facility] [address] [facility] [id number] [place] [address]- 1619 Jan, [facility] [place] [facility] [address] [id number] [place] [address]- 7282 Jan, [facility] [place] [facility] [address] [id number] [place] [address]- 2412 Jan, [facility] [place] [facility] [address] [id number] [place] [address]- 9377 10 Jan, 2012 [facility] [place] [facility] [address] [facility] [id number] [place] [address]- 5100 27 Dec, 2011 [facility] [place] [facility] [address] [id number] [place] [address]- 1039 14 Dec, 2011 [facility] [place] [facility] [address] [id number] [place] [address]- 4906 12 Dec, 2011 [facility] [place] [facility] [address] [id number] [place] [address]- 3138 Dec, [facility] [place] [facility] [address] [id number] [place] [address]- 3481 Dec, [facility] [place] [facility] [address] [id number] [place] [address]- 2974 Nov, [facility] [place] [facility] [address] [id number] [place] [address]- 5217 Nov, [facility] [place] [facility] [address] [id number] [place] [address]- 6427 Nov, [facility] [place] [facility] [address] [id number] [place] [address]- 9690 Nov, [facility] [place] [facility] [address] [id number] [place] [address]- 9405 Nov, [facility] [place] [facility] [address] [id number] [place] [address]- 2774 Nov, [facility] [place] [facility] [address] [id number] [place] [address]- 3923 Nov, [facility] [place] [facility] [address] [id number] [place] [address]- 6412 Nov, [facility] [place] [facility] [address] [id number] [place] [address]- 7038 Nov, [facility] [place] [facility] [address] [id number] [place] [address]- 2569 Oct, [facility] [place] [facility] [address] [id number] [place] [address]- 7400 Oct, [facility] [place] [facility] [address] [id number] [place] [address]- 4698 Sep, [facility] [place] [facility] [address] [id number] [place] [address]- 6071 13 Sep, 2011 [facility] [address] [id number] [place] [address]- 9074 05 Sep, 2011 [facility] [place] [facility] [address] [id number] [place] [address]- 5804 14 Aug, 2011 [facility] [place] [facility] [address] [id number] [place] [address]- 6297 30 Jul, 2011 [facility] [place] [facility] [address] [id number] [place] [address]- 2806 27 Jul, 2011 [facility] [place] [facility] [address] [id number] [place] [address]- 4168 27 Jul, 2011 [facility] [place] [facility] [address] [id number] [place] [address]- 6926 18 Jul, 2011 [facility] [place] [facility] [address] [id number] [place] [address]- 3099 16 Jul, 2011 [facility] [place] [facility] [address] [id number] [place] [address]- 2814 16 Jul, 2011 [facility] [place] [facility] [address] [id number] [place] [address]- 9911 16 Jul, 2011 [facility] [place] [facility] [address] [id number] [place] [address]- 4986 14 Jul, 2011 [facility] [place] [facility] [address] [id number] [place] [address]- 9798 12 Jul, 2011 [facility] [place] [facility] [address] [id number] [place] [address]- 8821 19 Jun, 2011 [facility] [place] [facility] [address] [id number] [place] [address]- 7406 18 Jun, 2011 [facility] [place] [facility] [address] [id number] [place] [address]- 0792 15 Jun, 2011 [facility] [place] [facility] [address] [id number] [place] [address]- 0274 12 Jun, 2011 [facility] [place] [facility] [address] [id number] [place] [address]- 6138 08 Jun, 2011 [facility] [place] [facility] [address] [id number] [place] [address]- 4416 Jun, [facility] [place] [facility] [address] [id number] [place] [address]- 5306 Jun, [facility] [place] [facility] [address] [id number] [place] [address]- 3086 Jun, [facility] [place] [facility] [address] [id number] [place] [address]- 0970 May, [facility] [place] [facility] [address] [id number] [place] [address]- 2466 May, [facility] [place] [facility] [address] [id number] [place] [address]- 5684 May, [facility] [place] [facility] [address] [id number] [place] [address]- 9963 Apr, [facility] [place] [facility] [address] [id number] [place] [address]- 0137 Apr, [facility] [place] [facility] [address] [id number] [place] [address]- 8173 Apr, [facility] [place] [facility] [address] [id number] [place] [address]- 5787 Mar, [facility] [place] [facility] [address] [id number] [place] [address]- 0286 Mar, [facility] [place] [facility] [address] [id number] [place] [address]- 2693 15 Mar, 2011 [facility] [place] [facility] [address] [id number] [place] [address]- 0266 13 Mar, 2011 [facility] [place] [facility] [address] [id number] [place] [address]- 2546 13 Mar, 2011 [facility] [place] [facility] [address] [id number] [place] [address]- 8506 Mar, [facility] [place] [facility] [address] [id number] [place] 0052 Mar, [facility] [place] [facility] [address] [id number] [place] [address]- 3699 Mar, [facility] [place] [facility] [address] [facility] [id number] [place] [address]- 0198 Mar, [facility] [place] [facility] [address] [id number] [place] [address]- 9787 Mar, [facility] [place] [facility] [address] [id number] [place] [address]- 0191 Mar, [facility] [place] [facility] [address] [id number] [place] [address]- 9962 Mar, [facility] [place] [facility] [address] [id number] [place] [address]- 3956 Mar, [facility] [place] [facility] [address] [id number] [address]- 0689 Mar, [facility] [place] [facility] [address] [id number] [place] [address]- 7716 Feb, [facility] [place] [facility] [address] [id number] [place] [address]- 9879 Feb, [facility] [place] [facility] [address] [id number] [place] [address]- 5673 Feb, [facility] [place] [facility] [address] [id number] [place] [address]- 6780 Jan, [facility] [place] [facility] [address] [id number] [place] [address]- 7687 Jan, [facility] [place] [facility] [address] [id number] [place] [address]- 7733 Oct, [facility] [place] [facility] [address] [id number] [place] [address]- 4157 Sep, [facility] [place] [facility] [id number] [address]- 2416 Mar, [facility] [address] [facility] [id number] [place] [address]- 2811 Mar, [facility] [id number] [address] Feb, [facility] [id number] [address] Feb, [facility] [address] [id number] [address] Jan, [facility] [id number] [place] [id number] Jan, [facility] [id number] [place] [address] Mar, [facility] [id number] [place] [id number]- [address] Feb, [facility] [id number] [address] Feb, [facility] [id number] [place] [address] Feb, [facility] [id number] [address] Feb, [facility] [id number] [address] Jan, [facility] [id number] [address] Dec, [facility] [id number] [address] Nov, IMMUNIZATIONS No Known Immunizations SOCIAL HISTORY [...]
--- OUTSIDE RECORDS SUMMARY | 2017-10-27 10:44 | XMS REPORT ---
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 Name Role Phone STEPHANIE CHRISTIANSEN Unavailable PROBLEMS Type Condition ICD9-CM Code AZS37-KK Code Onset Dates Condition Status SNOMED Code Problem Hyperlipidemia, unspecified hyperlipidemia type E78.5 Active 72897521 Problem Long-term insulin use Z79.4 Active 184713953 Problem Abnormal carotid ultrasound R93.8 Active 945619066 Problem Type 2 diabetes mellitus with complication E11.8 Active 20005398 Problem Positive TB test R76.11 Active 687185483 Problem Vascular dementia with behavior disturbance F01.51 Active 072566633 Problem PVD (peripheral vascular disease) I73.9 Active 226987375 Problem Pain R52 Active 42461075 Problem Other chronic osteomyelitis of left foot M86.672 Active 676415234 Problem Nicotine dependence, unspecified, uncomplicated F17.200 Active 127959732 Problem Peripheral vascular disease due to secondary diabetes E13.51 Active 6840190 Problem Nonintractable epilepsy without status epilepticus, unspecified epilepsy type G40.909 Active 858711292 Problem Recurrent major depressive disorder, remission status unspecified F33.9 Active 93678445 Problem Anxiety F41.9 Active 14270581 Problem Generalized anxiety disorder F41.1 Active 68941000 Problem Vascular dementia F01.50 Active 120168221 Problem Pseudobulbar affect F48.2 Active 22307668 Problem Coronary artery disease involving cabazon coronary artery of cabazon heart without angina pectoris I25.10 Active 8765012538030 Problem Gastroesophageal reflux disease without esophagitis K21.9 Active 813203191 Problem Cerebrovascular accident (CVA) due to other mechanism I63.8 Active 112528540 Problem Pulmonary emphysema, unspecified emphysema type J43.9 Active 27878561 Problem Neuropathy G62.9 Active 797325414 Problem Depression F32.9 Active 59417467 Problem Essential hypertension I10 Active 47956842 Problem Acquired hypothyroidism E03.9 Active 840242402 ALLERGIES No Information ENCOUNTERS Encounter Location Date Diagnosis [facility] [address] [place] [id number] August, Type 2 diabetes mellitus with complication E11.8 ; Vascular dementia with behavior disturbance F01.51 ; Long-term insulin use Z79.4 and Nicotine dependence, unspecified, uncomplicated F17.200 [facility] [address], [place] [address] August, Generalized anxiety disorder F41.1 [facility] [id number] [place] [address] [id number]- 3368 Jul, Generalized anxiety disorder F41.1 [facility] [id number] [place] [address] [id number] Jun, Generalized anxiety disorder F41.1 [facility] [id number] [place] [address] [id number] Jun, [facility] [id number] [place] [address] [id number] May, [facility] [id number] [place] [address] [id number]- 5460 May, [facility] [id number] [place] [address] [id number] May, Generalized anxiety disorder F41.1 [facility] [address], [place] [address] Apr, [facility] [address] [place] [id number] Apr, Other chronic osteomyelitis of left foot M86.672 ; Type 2 diabetes mellitus with complication E11.8 ; Vascular dementia F01.50 ; Long-term insulin use Z79.4 ; PVD (peripheral vascular disease) I73.9 and Nicotine abuse 305.1 [facility] [address] [address] Apr, [facility] [id number] [place] [address] [id number] Apr, [facility] [id number] [place] [address] 55988- 9686 Apr, Pain R52 and Generalized anxiety disorder F41.1 [facility] [id number] [place] [address] 56556- 4447 Mar, [facility] [id number] [place] [address] 94407- 9309 Mar, Pain R52 and Generalized anxiety disorder F41.1 [facility] [address] [place] [id number] Feb, Depression F32.9 ; Type 2 diabetes mellitus with complication E11.8 and Nicotine dependence, unspecified, uncomplicated F17.200 [facility] [id number] [place] [address] 72099- 6871 Feb, Generalized anxiety disorder F41.1 and Pain R52 [facility] [id number] [place] [address] 21578- 5278 Feb, [facility] [id number] [place] [address] 75038- 4411 Jan, [facility] [id number] [place] [address] 98980- 7281 Jan, Generalized anxiety disorder F41.1 and Pain R52 [facility] [id number] [place] [address] 16148- 8628 Jan, [facility] [id number] [place] [address] [id number] Dec, Generalized anxiety disorder F41.1 and Pain R52 [facility] [address] [place] [id number] Dec, Vascular dementia F01.50 ; Pain of left leg M79.605 ; Pain in right leg M79.604 and Type 2 diabetes mellitus with complication E11.8 [facility] [address] [place] [address] 19249- 0789 Dec, Pain R52 [facility] [id number] [place] [address] 98696- 8125 Dec, [facility] [id number] [place] [address] 15768- 7596 Nov, [facility] [id number] [place] [address] 20561 2546 Nov, Pain R52 and Generalized anxiety disorder F41.1 [facility] [address] [place] [id number] Nov, Depression F32.9 ; Vascular dementia with behavior disturbance F01.51 and Anxiety F41.9 [facility] [address] [place] [address] 22438- 2671 Nov, Pain R52 and Generalized anxiety disorder F41.1 [facility] [id number] [place] [address] 87749- 3836 Oct, Generalized anxiety disorder F41.1 [facility] [id number] [place] [address] 10641- 1836 Oct, Pain R52 [facility] [address] [place] [address] 31589- 3034 Sep, [facility] [address] [place] [id number] Sep, Generalized anxiety disorder F41.1 [facility] [address] [place] [address] 67479- 4445 Sep, Pain R52 [facility] [address] [place] [address] 55446 2546 Sep, Generalized anxiety disorder F41.1 [facility] [address], [place] [address] 8[address] August, [facility] [id number] [place] [address] 61953 2546 August, [facility] [address] [place] [address] 25850- 2636 August, Pain R52 [facility] [id number] [place] [address] 92002- 9576 August, Generalized anxiety disorder F41.1 [facility] [id number] [place] [address] [id number] August, Generalized anxiety disorder F41.1 [facility] [address] [place] [address] 60649- 8416 Jul, Pain R52 [facility] [id number] [place] [address] 03172- 1602 Jul, [facility] [id number] [place] [address] [id number] Jul, [facility] [id number] [place] [address] 08378- 4999 Jun, [facility] [id number] [place] [address] [id number] Jun, Depression F32.9 [facility] [id number] [place] [address] 66455- 4455 Jun, Pain R52 [facility] [address] [place] [address] 53925- 1187 Jun, [facility] [address] [place] [id number] Jun, Vascular dementia F01.50 and Depression F32.9 [facility] [address] [place] [address] 44625- 4201 May, Pain R52 [facility] [address] [place] [address] 63018- 7834 May, [facility] [address] [place] [address] 31630- 0591 May, Pseudobulbar affect F48.2 [facility] [address] [place] [address] 48651- 5607 09 May, 2016 [facility] [address] [place] [address] 48244- 9949 08 May, 2016 PVD (peripheral vascular disease) I73.9 [facility] [address] [place] [address] 69444- 7246 May, Vascular dementia with behavior disturbance F01.51 [facility] [id number] [place] [address] 50863- 8406 May, Vascular dementia with behavior disturbance F01.51 [facility] [id number] [place] [address] 61917- 2978 Apr, [facility] [id number] [place] [address] 62832- 4101 Apr, Pain R52 [facility] [address] [place] [id number] Apr, Generalized anxiety disorder F41.1 ; PVD (peripheral vascular disease) I73.9 and Type 2 diabetes mellitus with complication E11.8 [facility] [id number] [place] [address] 88080- 1832 Apr, Vascular dementia with behavior disturbance F01.51 [facility] [id number] [place] [address] 85395- 0881 Apr, [facility] [id number] [place] [address] 01351- 4192 Apr, Vascular dementia with behavior disturbance F01.51 [facility] [id number] [place] [address] 50909- 5340 Apr, [facility] [id number] [place] [address] [id number] Mar, [facility] [address] [place] [address] 31362- 9845 Mar, Type 2 diabetes mellitus with complication E11.8 ; Vascular dementia with behavior disturbance F01.51 and Depression F32.9 [facility] [address] [place] [address] 17995- 5526 Mar, [facility] [id number] [place] [address] 02886- 3040 Feb, [facility] [address] [place] [address] 28236- 5075 Feb, Viral illness B34.9 [facility] [id number] [place] [address] 91098- 3322 Jan, Diabetes 250.00 [facility] [id number] [place] [address] 87587- 7348 Jan, [facility] [id number] [place] [address] 01565- 9808 Jan, [facility] [id number] [place] [address] 99188- 0950 Jan, [facility] [address] [place] [id number] Jan, Vascular dementia with behavior disturbance F01.51 and Type 2 diabetes mellitus with complication E11.8 [facility] [id number] [place] [address] 21446- 9974 Jan, Pain R52 [facility] [id number] [place] [address] 50240- 1608 Jan, Pain R52 [facility] [id number] [place] [address] 99112- 5980 Dec, [facility] [id number] [place] [address] 56320- 7583 Nov, [facility] [address] [place] [id number] Nov, Type 2 diabetes mellitus with complication E11.8 [facility] [address], [place] [address]- 7649 Nov, [facility] [id number] [place] [address] 98743- 1014 Oct, [facility] [id number] [place] [address] 97321- 4208 Oct, [facility] [id number] [place] [address] 42084- 9568 Oct, Vascular dementia with behavior disturbance F01.51 and Type 2 diabetes mellitus with complication E11.8 [facility] [address] [place] [address] 21529- 6462 August, Type 2 diabetes mellitus with complication E11.8 and Vascular dementia with behavior disturbance F01.51 [facility] [id number], [place] [address]- 8194 August, Vascular dementia F01.50 [facility] [id number] [place] [address] 37565- 7797 August, Vascular dementia with behavior disturbance F01.51 [facility] [id number] [place] [address] 17676- 5171 Jul, Vascular dementia with behavior disturbance F01.51 [facility] [id number] [place] [address] 77178- 7011 Jun, Vascular dementia F01.50 [facility] [id number] [place] [address] 41949- 4698 Jun, Type 2 diabetes mellitus with complication E11.8 ; Long- term insulin use Z79.4 and Vascular dementia with behavior disturbance F01.51 [facility] [address], [place] [address]- 7286 Jun, Vascular dementia with behavior disturbance F01.51 [facility] [address], [place] [address]- 4316 Jun, Vascular dementia F01.50 [facility] [address], [place] [address]- 4232 Apr, [facility] [id number] [place] [address] 79407- 8419 Apr, [facility] [address], [place] [address]- 7740 Apr, [facility] [address] [place] [address] 82999- 4776 Apr, Type 2 diabetes mellitus with complication E11.8 ; Depression F32.9 and Long-term insulin use Z79.4 [facility] [address] [place] [address] 06803- 6576 Mar, [facility] [address] [id number] Mar, Depression F32.9 ; Type 2 diabetes mellitus with complication E11.8 and Long-term insulin use Z79.4 [facility] [address], [place] [address]- 0811 Feb, [facility] [address] [place] [address] 713835- 6923 Feb, Hyperthyroidism E05.90 [facility] [id number] [place] [address] 189240- 9036 Feb, Hyperthyroidism E05.90 [facility] [id number] [place] [address] 874556- 4631 Feb, [facility] [address], [place] [address]- 4295 Jan, [facility] [id number] [place] [address] 478438- 1075 Dec, Nicotine addiction 305.1 [facility] [address] [place] [address] 32711- 9769 Oct, Nicotine abuse 305.1 [facility] [address] [place] [address] 58005- 0951 Oct, [facility] [address], [place] [address]- 2245 August, [facility] [address] [place] [id number] August, History of drug abuse 305.93 and Diabetes 250.00 [facility] [address], [place] [address]- 3146 Jul, [facility] [address] [address]- 3550 13 Jul, 2014 [facility] [address] [id number] [place] [address]- 6846 Jun, [facility] [place] [facility] [address] [id number] [place] [address]- 7266 Jun, [facility] [address] [id number] [place] [address]- 8871 Jun, [facility] [address] [id number] [place] [address]- 8880 Jun, [facility] [address] [id number] [place] [address]- 0735 Jun, [facility] [address] [facility] [id number] [place] [address]- 2815 Jun, [facility] [address] [facility] [id number] [place] [address]- 3178 May, [facility] [address] [id number] [place] [address]- 8451 May, [facility] [address] [facility] [id number] [place] [address]- 5700 May, [facility] [address] [facility] [id number] [place] [address]- 5222 May, [facility] [address] [facility] [id number] [place] [address]- 8801 May, [facility] [address] [facility] [id number] [place] [address]- 0629 Apr, [facility] [address] [facility] [id number] [place] [address]- 3027 Apr, [facility] [address] [id number] Apr, [facility] [address] [facility] [id number], [place] [address]- 2406 Apr, [facility] [place] [facility] [address] [id number] [place] [address]- 4942 Apr, [facility] [place] [facility] [address] [id number] [place] [address]- 7098 Apr, [facility] [place] [facility] [address] [id number] [place] [address]- 4747 Apr, [facility] [place] [facility] [address] [id number] [place] [address]- 8342 Apr, [facility] [place] [facility] [address] [id number] [place] [address]- 7529 Mar, [facility] [place] [facility] [address] [id number] [place] [address]- 2614 Mar, [facility] [place] [facility] [address] [id number] [place] [address]- 7775 Mar, [facility] [place] [facility] [address] [id number] [place] [address]- 0091 Mar, [facility] [place] [facility] [address] [id number] [place] [address]- 9154 Mar, [facility] [place] [facility] [address] [id number] [place] [address]- 5744 Mar, [facility] [place] [facility] [address] [id number] [place] [address]- 0069 Mar, [facility] [place] [facility] [address] [id number], [place] [address]- 0223 Mar, [facility] [place] [facility] [address] [id number] [place] [address]- 3725 Feb, [facility] [place] [facility] [address] [id number] [place] [address]- 2045 Feb, [facility] [place] [facility] [address] [id number], [place] [address]- 7692 Feb, [facility] [place] [facility] [address] [id number], [place] [address]- 3202 Feb, [facility] [place] [facility] [address] [id number] [place] [address]- 1921 Feb, [facility] [address] [place] [id number] Feb, [facility] [place] [facility] [address] [id number] [place] [address]- 5294 Feb, [facility] [place] [facility] [address] [id number] [place] [address]- 7578 Feb, [facility] [place] [facility] [address] [id number] [place] [address]- 6391 Feb, [facility] [place] [facility] [address] [id number] [place] [address]- 5097 Feb, [facility] [place] [facility] [address] [id number] [place] [address]- 2501 Jan, [facility] [place] [facility] [address] [id number] [place] [address]- 5897 30 Jan, 2014 [facility] [place] [facility] [address] [id number] [place] [address]- 7425 Jan, [facility] [place] [facility] [address] [id number] [place] [address]- 3734 17 Jan, 2014 [facility] [place] [facility] [address] [id number], [place] [address]- 8700 16 Jan, 2014 [facility] [place] [facility] [address] [id number], [place] [address]- 4624 16 Jan, 2014 [facility] [place] [facility] [address] [id number] [place] [address]- 6624 15 Jan, 2014 [facility] [place] [facility] [address] [id number] [place] [address]- 1806 13 Jan, 2014 [facility] [place] [facility] [address] [id number] [place] [address]- 3075 Jan, [facility] [place] [facility] [address] [id number] [place] [address]- 9955 13 Jan, 2013 [facility] [place] [facility] [address] [id number] [place] [address]- 0209 13 Jan, 2013 [facility] [place] [facility] [address] [id number] [place] [address]- 0754 Jan, 2013 [facility] [place] [facility] [address] [id number] [place] [address]- 4635 Jan, 2013 [facility] [place] [facility] [address] [id number] [place] [address]- 2194 Jan, [facility] [place] [facility] [address] [id number] [place] [address]- 0950 Jan, [facility] [place] [facility] [address] [id number] [place] [address]- 2780 Jan, [facility] [place] [facility] [address] [id number] [place] [address]- 5923 Jan, 2013 [facility] [place] [facility] [address] [id number] [place] [address]- 3731 Sep, 2013 [facility] [place] [facility] [address] [id number] [place] [address]- 7722 19 Sep, 2013 [facility] [place] [facility] [address] [id number] [place] [address]- 5204 11 Sep, 2013 [facility] [place] [facility] [address] [id number] [place] [address]- 2540 11 Sep, 2013 [facility] [place] [facility] [address] [id number] [place] [address]- 54[address] 09 Sep, 2013 [facility] [place] [facility] [address] [id number] [place] [address] 09 Sep, 2013 [facility] [place] [facility] [address] [id number] [place] [address] 08 Sep, 2013 [facility] [place] [facility] [address] [id number] [place] [address] 08 Sep, 2013 [facility] [place] [facility] [address] [id number] [place] [address] 08 Dec, 2013 [facility] [place] [facility] [address] [id number] [place] [address] Dec, 2013 [facility] [place] [facility] [address] [id number] [place] [address] Dec, 2013 [facility] [place] [facility] [address] [id number] [place] [address] Dec, 2013 [facility] [place] [facility] [address] [id number] [place] [address] Dec, 2013 [facility] [place] [facility] [address] [id number] [place] [address] Dec, [facility] [place] [facility] [address] [id number] [place] [address] Nov, [facility] [place] [facility] [address] [id number] [place] [address] Nov, [facility] [place] [facility] [address] [id number] [place] [address] Nov, [facility] [place] [facility] [address] [id number] [place] [address] Nov, [facility] [place] [facility] [address] [id number] [place] [address] Nov, [facility] [place] [facility] [address] [id number] [place] [address] Nov, [facility] [place] [facility] [address] [id number] [place] [address] Nov, [facility] [place] [facility] [address] [id number] [place] [address] Nov, [facility] [place] [facility] [address] [id number] [place] [address] Nov, [facility] [place] [facility] [address] [id number] [place] [address] Nov, [facility] [place] [facility] [address] [id number] [place] [address] Nov, [facility] [place] [facility] [address] [id number] [place] [address] Nov, [facility] [place] [facility] [address] [id number] [place] [address] Nov, [facility] [place] [facility] [address] [id number] [place] [address] Nov, [facility] [place] [facility] [address] [id number] [place] [address] Oct, [facility] [place] [facility] [address] [id number] [place] [address] Oct, [facility] [place] [facility] [address] [id number] [place] [address] Oct, [facility] [place] [facility] [address] [id number] [place] [address] Oct, [facility] [place] [facility] [address] [id number] [place] [address] 7833 Oct, [facility] [place] [facility] [address] [id number] [place] [address] 5952 Oct, [facility] [place] [facility] [address] [id number] [place] [address] 9006 Oct, [facility] [place] [facility] [address] [id number] [place] [address] 7404 Oct, [facility] [place] [facility] [address] [id number] [place] [address]- 0756 Oct, [facility] [place] [facility] [address] [id number] [place] [address]- 5584 Oct, [facility] [place] [facility] [address] [id number] [place] [address]- 8524 Oct, [facility] [place] [facility] [address] [id number] [place] [address] 3217 Oct, [facility] [place] [facility] [address] [id number] [place] [address] 1388 Oct, 2013 [facility] [place] [facility] [address] [id number] [place] [address]- [address]646 Oct, 2013 [facility] [place] [facility] [address] [id number] [place] [address]- 4264 Oct, 2013 [facility] [place] [facility] [address] [id number] [place] [address]- 2680 Oct, 2013 [facility] [place] [facility] [address] [id number] [place] [address]- 5607 Oct, [facility] [place] [facility] [address] [id number] [place] [address]- 7449 Oct, 2013 [facility] [place] [facility] [address] [id number] [place] [address]- 5243 Oct, [facility] [place] [facility] [address] [id number] [place] [address]- 9616 Oct, [facility] [place] [facility] [address] [id number] [place] [address]- 5724 Sep, [facility] [place] [facility] [address] [id number] [place] [address]- 2293 Sep, [facility] [place] [facility] [address] [id number] [place] [address]- 4733 Sep, [facility] [place] [facility] [address] [id number] [place] [address]- 3487 Sep, [facility] [place] [facility] [address] [id number] [place] [address]- 7641 Sep, [facility] [place] [facility] [address] [id number] [place] [address]- 1138 Sep, [facility] [place] [facility] [address] [id number] [place] [address]- 9547 August, [facility] [place] [facility] [address] [id number] [place] [address]- 6210 August, [facility] [place] [facility] [address] [id number] [place] [address]- 5235 Jul, [facility] [place] [facility] [address] [id number] [place] [address]- 6969 Jul, [facility] [place] [facility] [address] [id number] [place] [address]- 1901 Jul, [facility] [place] [facility] [address] [id number] [place] [address]- 0662 Jul, [facility] [place] [facility] [address] [id number] [place] [address]- 3673 Jul, [facility] [place] [facility] [address] [id number] [place] [address]- 4995 Jul, [facility] [place] [facility] [address] [id number] [place] [address]- 4232 Jul, [facility] [place] [facility] [address] [id number] [place] [address]- 5699 Jul, [facility] [place] [facility] [address] [id number] [place] [address]- 0144 Jun, [facility] [place] [facility] [address] [id number] [place] [address]- 0243 Jun, [facility] [place] [facility] [address] [id number] [place] [address]- 5105 Jun, [facility] [place] [facility] [address] [id number] [place] [address]- 1055 Jun, [facility] [place] [facility] [address] [id number] [place] [address]- 1426 Jun, [facility] [place] [facility] [address] [id number] [place] [address]- 2229 May, [facility] [place] [facility] [address] [id number] [place] [address]- 0874 May, [facility] [place] [facility] [address] [id number] [place] [address]- 0936 May, [facility] [place] [facility] [address] [id number] [place] [address] 2546 May, [facility] [place] [facility] [address] [id number] [place] [address]- 1976 May, [facility] [place] [facility] [address] [id number] [place] [address] 2546 May, [facility] [place] [facility] [address] [id number] [place] [address]- 8336 May, [facility] [place] [facility] [address] [id number] [place] [address]- 9646 May, [facility] [place] [facility] [address] [id number] [place] [address] 2546 May, [facility] [place] [facility] [address] [id number] [place] [address]- 3264 May, [facility] [place] [facility] [address] [facility] [id number] [place] [address]- 1525 May, [facility] [place] [facility] [address] [facility] [id number] [place] [address]- 2594 Apr, [facility] [place] [facility] [address] [facility] [id number] [place] [address] 2546 Apr, [facility] [place] [facility] [address] [id number] [place] [address] 2546 Mar, [facility] [place] [facility] [address] [id number] [place] [address] 2546 Mar, [facility] [place] [facility] [address] [facility] [id number] [place] [address] 2546 Mar, [facility] [place] [facility] [address] [facility] [id number] [place] [address]- 2546 Mar, [facility] [place] [facility] [address] [id number] [place] [address]- 7866 Mar, [facility] [place] [facility] [address] [id number] [place] [address]- 5269 Jan, [facility] [place] [facility] [address] [id number] [place] [address]- 4812 Jan, [facility] [place] [facility] [address] [id number] [place] [address]- 4562 Jan, [facility] [place] [facility] [address] [id number] [place] [address]- 0413 Jan, [facility] [place] [facility] [address] [id number] [place] [address]- 7794 Jan, [facility] [place] [facility] [address] [id number] [place] [address]- 7951 Jan, [facility] [place] [facility] [address] [id number], [place] [address]- 0980 Jan, [facility] [place] [facility] [address] [id number] [place] [address]- 7208 Jan, [facility] [place] [facility] [address] [id number], [place] [address]- 7983 Jan, [facility] [place] [facility] [address] [id number], [place] [address]- 4899 Jan, [facility] [place] [facility] [address] [id number], [place] [address]- 2389 Dec, [facility] [place] [facility] [address] [id number] [place] [address]- 9252 Oct, [facility] [place] [facility] [address] [id number], [place] [address]- 3484 Oct, [facility] [place] [facility] [address] [id number], [place] [address]- 2543 Oct, [facility] [place] [facility] [address] [id number] [place] [address]- 3139 Oct, [facility] [address] [id number] [place] [address]- 8269 Oct, [facility] [address] [id number] [place] [address]- 3415 Oct, [facility] [address] [id number] [place] [address]- 9860 Sep, [facility] [address] [id number] [place] [address]- 6916 August, [facility] [address] [id number] [place] [address]- 8344 August, [facility] [address] [id number] [place] [address]- 9524 August, [facility] [address] [id number] [place] [address]- 7377 August, [facility] [address] [id number] [place] [address]- 1380 August, [facility] [address] [id number] [place] [address]- 2864 May, [facility] [address] [id number] [place] [address]- 2225 Apr, [facility] [address] [id number] [place] [address]- 1361 Apr, [facility] [address] [id number] [place] [address]- 5757 Apr, [facility] [address] [id number] [place] [address]- 0937 Apr, [facility] [address] [id number] [place] [address]- 2686 Apr, [facility] [address] [place] [id number] Mar, [facility] [place] [facility] [address] [id number] [place] [address]- 4075 31 Mar, 2012 [facility] [address] [id number] [place] [address]- 4156 19 Mar, 2012 [facility] [place] [facility] [address] [id number] [place] [address]- 8176 19 Mar, 2012 [facility] [address] [id number] [place] [address]- 0356 17 Mar, 2012 [facility] [place] [facility] [address] [id number] [place] [address]- 5786 17 Mar, 2012 [facility] [address] [id number] [place] [address]- 2496 13 Mar, 2012 [facility] [address] [id number] [place] [address]- 3886 13 Mar, 2012 [facility] [address] [id number] [place] [address]- 5902 13 Mar, 2012 [facility] [address] [id number] [place] [address]- 9736 13 Mar, 2012 [facility] [place] [facility] [address] [id number] [place] [address]- 8114 12 Mar, 2012 [facility] [address] [id number] [place] [address]- 2572 12 Mar, 2012 [facility] [place] [facility] [address] [id number] [place] [address]- 8006 10 Mar, 2012 [facility] [place] [facility] [address] [id number] [place] [address]- 1056 10 Mar, 2012 [facility] [place] [facility] [address] [id number] [place] [address]- 5246 07 Mar, 2012 [facility] [place] [facility] [address] [id number] [place] [address]- 8956 07 Mar, 2012 [facility] [place] [facility] [address] [id number] [place] [address] Mar, [facility] [place] [facility] [address] [id number] [place] [address]- 3790 Mar, [facility] [place] [facility] [address] [id number] [place] [address]- 8759 Mar, [facility] [place] [facility] [address] [id number] [place] [address]- 4848 Mar, [facility] [place] [facility] [address] [id number] [place] [address]- 0917 Feb, [facility] [place] [facility] [address] [id number] [place] [address]- 1309 Feb, [facility] [place] [facility] [address] [id number] [place] [address]- 3549 Feb, [facility] [place] [facility] [address] [facility] [id number] [place] [address]- 6145 Feb, [facility] [place] [facility] [address] [id number], [place] [address]- 4253 Jan, [facility] [place] [facility] [address] [id number] [place] [address]- 1392 Jan, [facility] [place] [facility] [address] [id number], [place] [address]- 3475 Jan, [facility] [place] [facility] [address] [id number], [place] [address]- 2754 Jan, [facility] [place] [facility] [address] [id number], [place] [address]- 0241 Jan, [facility] [place] [facility] [address] [id number], [place] [address]- 2357 Jan, [facility] [place] [facility] [address] [id number], [place] [address]- 1904 Jan, [facility] [place] [facility] [address] [facility] [id number], [place] [address]- 0998 Jan, [facility] [place] [facility] [address] [id number] [place] [address]- 3893 10 Jan, 2012 [facility] [place] [facility] [address] [id number] [place] [address]- 5146 27 Dec, 2011 [facility] [place] [facility] [address] [id number] [place] [address]- 3036 14 Dec, 2011 [facility] [place] [facility] [address] [id number] [place] [address]- 6296 12 Dec, 2011 [facility] [place] [facility] [address] [id number] [place] [address]- 5464 06 Dec, 2011 [facility] [place] [facility] [address] [id number] [place] [address]- 8205 06 Dec, 2011 [facility] [place] [facility] [address] [id number] [place] [address]- 3027 Nov, [facility] [place] [facility] [address] [id number] [place] [address]- 3631 Nov, [facility] [place] [facility] [address] [id number] [place] [address]- 4777 Nov, [facility] [place] [facility] [address] [id number] [place] [address]- 4121 Nov, [facility] [place] [facility] [address] [id number] [place] [address]- 5510 Nov, [facility] [place] [facility] [address] [id number] [place] [address]- 1914 Nov, [facility] [place] [facility] [address] [id number] [place] [address]- 2339 Nov, [facility] [place] [facility] [address] [id number] [place] [address]- 2237 Nov, [facility] [place] [facility] [address] [id number] [place] [address]- 8997 Nov, [facility] [place] [facility] [address] [id number] [place] [address]- 5577 Oct, [facility] [place] [facility] [address] [id number] [place] [address]- 1203 13 Oct, 2011 [facility] [place] [facility] [address] [id number] [place] [address]- 8990 14 Sep, 2011 [facility] [place] [facility] [address] [id number] [place] [address]- 0133 13 Sep, 2011 [facility] [place] [facility] [address] [id number] [place] [address]- 4187 05 Sep, 2011 [facility] [place] [facility] [address] [id number] [place] [address]- 2215 14 Aug, 2011 [facility] [place] [facility] [address] [id number] [place] [address]- 3997 30 Jul, 2011 [facility] [place] [facility] [address] [id number] [place] [address]- 9813 27 Jul, 2011 [facility] [place] [facility] [address] [id number] [place] [address]- 4266 27 Jul, 2011 [facility] [place] [facility] [address] [id number] [place] [address]- 1582 18 Jul, 2011 [facility] [place] [facility] [address] [id number] [place] [address]- 1912 16 Jul, 2011 [facility] [place] [facility] [address] [id number] [place] [address]- 9227 16 Jul, 2011 [facility] [place] [facility] [address] [id number] [place] [address]- 8826 16 Jul, 2011 [facility] [place] [facility] [address] [id number] [place] [address]- 7731 14 Jul, 2011 [facility] [place] [facility] [address] [id number] [place] [address]- 0365 12 Jul, 2011 [facility] [place] [facility] [address] [id number] [place] [address]- 2376 19 Jun, 2011 [facility] [place] [facility] [address] [id number] [place] [address]- 1780 18 Jun, 2011 [facility] [place] [facility] [address] [id number] [place] [address]- 6113 15 Jun, 2011 [facility] [place] [facility] [address] [id number] [place] [address]- 6356 12 Jun, 2011 [facility] [place] [facility] [address] [id number] [place] [address]- 8853 08 Jun, 2011 [facility] [place] [facility] [address] [id number] [place] [address]- 0903 08 Jun, 2011 [facility] [place] [facility] [address] [id number] [place] [address]- 2183 08 Jun, 2011 [facility] [place] [facility] [address] [id number] [place] [address]- 1007 Jun, [facility] [place] [facility] [address] [id number] [place] [address]- 2396 May, [facility] [place] [facility] [address] [id number] [place] [address]- 6884 May, [facility] [place] [facility] [address] [id number] [place] [address]- 8760 May, [facility] [place] [facility] [address] [id number] [place] [address]- 8388 Apr, [facility] [place] [facility] [address] [id number] [place] [address]- 4991 Apr, [facility] [place] [facility] [address] [id number] [place] [address]- 9344 Apr, [facility] [place] [facility] [address] [id number] [place] [address]- 6819 Mar, [facility] [place] [facility] [address] [id number] [place] [address]- 3372 Mar, [facility] [place] [facility] [address] [id number] [place] [address]- 7554 Mar, [facility] [place] [facility] [address] [id number] [place] [address]- 3358 13 Mar, 2011 [facility] [address] [id number] [place] [address]- 0983 13 Mar, 2011 [facility] [place] [facility] [address] [id number] [place] [address]- 3200 12 Mar, 2011 [facility] [address] [id number] [place] [address]- 1553 12 Mar, 2011 [facility] [place] [facility] [address] [id number] [place] [address]- 2277 12 Mar, 2011 [facility] [address] [id number] [place] [address]- 2173 08 Mar, 2011 [facility] [place] [facility] [address] [id number] [place] [address]- 6467 Mar, [facility] [place] [facility] [address] [id number] [place] [address]- 3489 Mar, [facility] [address] [id number] [place] [address]- 3125 Mar, [facility] [place] [facility] [address] [id number] [place] [address]- 0845 Mar, [facility] [address] [id number] [place] [address]- 9635 Mar, [facility] [place] [facility] [address] [id number] [place] [address]- 6749 Feb, [facility] [place] [facility] [address] [id number] [place] [address]- 1743 Feb, [facility] [place] [facility] [address] [id number] [place] [address]- 2111 14 Feb, 2011 [facility] [place] [facility] [address] [id number] [place] [address]- 5862 Jan, [facility] [place] [facility] [address] [id number] [place] [address]- 2155 Jan, [facility] [place] [facility] [address] [id number] [place] [address]- 0633 Oct, [facility] [place] [facility] [address] [id number] [place] [address]- 8296 Sep, [facility] [place] [facility] [address] [id number] [place] [address]- 0014 Mar, [facility] [place] [facility] [address] [id number] [place] [address] 2546 Mar, [facility] [place] [facility] [address] [id number] [place] [address]- 5032 Feb, [facility] [place] [facility] [address] [id number] [place] [address]- 7721 Feb, [facility] [place] [facility] [address] [id number] [place] [address]- 1016 Jan, [facility] [place] [facility] [address] [id number], [place] [address]- 8502 Jan, [facility] [place] [facility] [address] [id number] [place] [address] Mar, [facility] [place] [facility] [address] [id number], [place] [address] Feb, [facility] [place] [facility] [address] [id number], [place] [address] Feb, [facility] [place] [facility] [address] [id number], [place] [address] Feb, [facility] [place] [facility] [address] [id number] [place] [address] Feb, [facility] [place] [facility] [address] [id number], [place] [address] Jan, [facility] [place] [facility] [address] [id number], [place] [address] Dec, 2008 [facility] [place] [facility] [address] [id number] [place] [address] Nov, IMMUNIZATIONS No Known Immunizations SOCIAL HISTORY Never Assessed REASON FOR VISIT Increased confusion PLAN OF CARE Activity Details Follow Up prn Reason: VITAL SIGNS MEDICATIONS Medication Instructions Dosage Frequency Start Date End Date Duration Status Metformin HCl 1000 MG Orally Twice a day 1 tablet with meals 12h Active Exelon 9.5 MG/24HR Transdermal Once a day 1 patch to skin 24h Active Plavix 75 MG Orally Once a day 1 tablet 24h Active Aricept 10 mg Orally Once a day 1 tablet at bedtime 24h Dec, 30 day(s) Active Celexa 40 mg Orally Once a day 1 tablet 24h Active Metoprolol Tartrate 25 MG Orally Twice a day 1 tablet with food 12h Active Synthroid 150 MCG Orally Once a day 1 tablet on an empty stomach in the morning 24h Active Levemir 100 UNIT/ML Subcutaneous at bedtime 4 units Active Ultram 50 mg Orally 3 times a day 1 tablet 8h Apr, 28 days Active Aspir-81 81 MG Orally Once a day 1 tablet 24h Active Klonopin 0.5 MG Orally Twice a day 2 tablets in AM and 1 in PM 12h August, 28 days Active Simvastatin 10 MG Orally Once a day 1 tablet in the evening 24h Active NovoLog 100 UNIT/ML Subcutaneous 3 times a day 3 units 8h Active Remeron 15 MG Orally Once a day 1 tablet at bedtime 24h Active Levetiracetam 500 mg Orally Twice a day 1 tablet 12h Active Clonidine HCl 0.2 MG Orally twice a day 1 tablet 12h Active Melatonin 3 MG Orally Once a day 1 tablet at bedtime 24h Active Mylanta 200-200-20 MG/5ML Orally every 4 hrs 30 ml as needed 4h Active Vasotec 2.5 MG Orally Once a day 1 tablet 24h Active Divalproex Sodium 125 MG Orally 4 times a day 2 capsules 6h Active Cholecalciferol 400 UNIT Orally Once a day 1 tablet 24h Active Lactobacillus - Orally 4 times a day 1 tablet 6h Active RESULTS No Results PROCEDURES Procedure Date Ordered Result Body Site Minor complication (15 mins) Dec 31, 2016 INSTRUCTIONS MEDICATIONS ADMINISTERED No Known Medications MEDICAL (GENERAL) HISTORY Type Description Date Hospitalization History [facility] March 2015
[2017-10-27 10:45] LABS: ALANINE AMINOTRANSFERASE 20 U/L (0-55); ALBUMIN 2.9 GM/DL (3.2-4.5); ALKALINE PHOSPHATASE 89 U/L (40-136); BILIRUBIN,TOTAL 0.3 MG/DL (0.1-1.0); BUN/CREATININE RATIO 13; CALCIUM 7.8 MG/DL (8.5-10.1); CARBON DIOXIDE 22 MMOL/L (21-32); CHLORIDE 105 MMOL/L (98-107); CREATININE SERUM 0.84 MG/DL (0.60-1.30); GFR ESTIMATED > 60; GLUCOSE 304 MG/DL (70-105); POTASSIUM 4.2 MMOL/L (3.6-5.0); SODIUM 134 MMOL/L (135-145); TOTAL PROTEIN 5.1 GM/DL (6.4-8.2)
--- OUTSIDE RECORDS SUMMARY | 2017-10-27 10:45 | XMS REPORT ---
Author Author SETPHANIE CHRISTIANSEN [facility] Address [address] [place] [address] Care Team Providers Care Ground Control Approach Technician Name Role Phone STEPHANIE CHRISTIANSEN Unavailable PROBLEMS Type Condition ICD9-CM Code ZEN21-AL Code Onset Dates Condition Status SNOMED Code Problem Hyperlipidemia, unspecified hyperlipidemia type E78.5 Active 58961644 Problem Long-term insulin use Z79.4 Active 258348259 Problem Abnormal carotid ultrasound R93.8 Active 142292165 Problem Type 2 diabetes mellitus with complication E11.8 Active 95808611 Problem Positive TB test R76.11 Active 787584111 Problem Vascular dementia with behavior disturbance F01.51 Active 774452532 Problem PVD (peripheral vascular disease) I73.9 Active 413623016 Problem Pain R52 Active 51533147 Problem Other chronic osteomyelitis of left foot M86.672 Active 412851054 Problem Nicotine dependence, unspecified, uncomplicated F17.200 Active 031973099 Problem Peripheral vascular disease due to secondary diabetes E13.51 Active 3150978 Problem Nonintractable epilepsy without status epilepticus, unspecified epilepsy type G40.909 Active 121624450 Problem Recurrent major depressive disorder, remission status unspecified F33.9 Active 75093764 Problem Anxiety F41.9 Active 49584211 Problem Generalized anxiety disorder F41.1 Active 40352339 Problem Vascular dementia F01.50 Active 234143494 Problem Pseudobulbar affect F48.2 Active 84037509 Problem Coronary artery disease involving [place] coronary artery of [place] heart without angina pectoris I25.10 Active 1031773582298 Problem Gastroesophageal reflux disease without esophagitis K21.9 Active 137683839 Problem Cerebrovascular accident (CVA) due to other mechanism I63.8 Active 338907778 Problem Pulmonary emphysema, unspecified emphysema type J43.9 Active 09230642 Problem Neuropathy G62.9 Active 625746203 Problem Depression F32.9 Active 03598610 Problem Essential hypertension I10 Active 29214723 Problem Acquired hypothyroidism E03.9 Active 603136042 ALLERGIES No Information ENCOUNTERS Encounter Location Date Diagnosis [facility] [address] [address] Sep, [facility] [id number] [place] [address] 08275- 2642 Sep, Type 2 diabetes mellitus with complication E11.8 [facility] [id number] [place] [address] 89660- 0366 August, Generalized anxiety disorder F41.1 [place] [address] [place] [address] 13492- 9501 August, [facility] [address] [place] [id number] August, Type 2 diabetes mellitus with complication E11.8 ; Vascular dementia with behavior disturbance F01.51 ; Long-term insulin use Z79.4 and Nicotine dependence, unspecified, uncomplicated F17.200 [place] [address] [place] [address] 59355- 4575 August, Generalized anxiety disorder F41.1 [place] [address] [place] [address] 73871- 4445 Jul, Generalized anxiety disorder F41.1 [facility] [id number] [place] [address] [id number] Jun, Generalized anxiety disorder F41.1 [facility] [address] [id number] Jun, [facility] [id number] [place] [address] [id number] May, [facility] [address] [place] [address] [id number]- 6694 May, [facility] [id number] [place] [address] [id number] May, Generalized anxiety disorder F41.1 [facility] [address], [place] [address] 4740 Apr, [facility] [address] [place] [id number] Apr, Other chronic osteomyelitis of left foot M86.672 ; Type 2 diabetes mellitus with complication E11.8 ; Vascular dementia F01.50 ; Long-term insulin use Z79.4 ; PVD (peripheral vascular disease) I73.9 and Nicotine abuse 305.1 [facility] [id number] [place] [address] 67304- 8927 Apr, [facility] [id number] [place] [address] [id number] Apr, [facility] [id number] [place] [address] 69788- 1050 Apr, Pain R52 and Generalized anxiety disorder F41.1 [facility] [id number] [place] [address] 93537- 9948 Mar, [facility] [address] 60513- 4113 Mar, Pain R52 and Generalized anxiety disorder F41.1 [facility] [address] [place] [id number] Feb, Depression F32.9 ; Type 2 diabetes mellitus with complication E11.8 and Nicotine dependence, unspecified, uncomplicated F17.200 [facility] [id number] [place] [address] 61756- 8453 Feb, Generalized anxiety disorder F41.1 and Pain R52 [facility] [id number] [place] [address] 47693- 3080 Feb, [facility] [id number] [place] [address] 38907- 7664 Jan, [facility] [id number] [place] [address] 76111- 5159 Jan, Generalized anxiety disorder F41.1 and Pain R52 [facility] [id number] [place] [address] 70003- 5697 Jan, [facility] [id number] [place] [address] [id number] 27 Dec, 2016 Generalized anxiety disorder F41.1 and Pain R52 [facility] [address] [place] [id number] Dec, Vascular dementia F01.50 ; Pain of left leg M79.605 ; Pain in right leg M79.604 and Type 2 diabetes mellitus with complication E11.8 [facility] [address] [place] [address] 44208- 5391 Dec, Pain R52 [facility] [id number] [place] [address] 97197- 6975 Dec, [facility] [id number] [place] [address] 70794- 8783 Nov, [facility] [id number] [place] [address] 78258- 0957 Nov, Pain R52 and Generalized anxiety disorder F41.1 [place] [address] [place] [id number] Nov, Depression F32.9 ; Vascular dementia with behavior disturbance F01.51 and Anxiety F41.9 [facility] [address] [place] [address] 82737- 5184 Nov, Pain R52 and Generalized anxiety disorder F41.1 [facility] [address], [place] [address]- 0663 Oct, Generalized anxiety disorder F41.1 [facility] [address] [place] [address] 57036- 9414 Oct, Pain R52 [facility] [address] [place] [address] 65448- 8723 Sep, [facility] [address] [place] [id number] Sep, Generalized anxiety disorder F41.1 [facility] [address], [place] [address]- 0158 Sep, Pain R52 [facility] [id number], [place] [address] 2546 Sep, Generalized anxiety disorder F41.1 [facility] [address] [place] [address] 42639- 3476 August, [facility] [id number] [place] [address] 45210- 2546 August, [facility] [address] [place] [address] 92828- 0636 August, Pain R52 [facility] [address] [place] [address] 82527- 9705 August, Generalized anxiety disorder F41.1 [facility] [id number] [place] [address] [id number] August, Generalized anxiety disorder F41.1 [facility] [address] [place] [address] 37797- 3406 Jul, Pain R52 [facility] [id number] [place] [address] 57734- 9143 Jul, [facility] [id number] [place] [address] [id number] Jul, [facility] [address] [place] [address] 65232- 7402 Jun, [facility] [id number] [place] [address] [id number] Jun, Depression F32.9 [facility] [address] [place] [address] 20209- 8398 Jun, Pain R52 [facility] [address] [place] [address] 44336- 8723 Jun, [facility] [address] [place] [id number] Jun, Vascular dementia F01.50 and Depression F32.9 [facility] [address], [place] [address]- 3316 May, Pain R52 [facility] [id number] [place] [address] 14821- 8687 May, [facility] [address] 04008- 9669 May, Pseudobulbar affect F48.2 [facility] [address] 91817- 1626 May, [facility] [address] 79523- 4019 May, PVD (peripheral vascular disease) I73.9 [place] [address] 44402- 4242 May, Vascular dementia with behavior disturbance F01.51 [place] [id number] [place] [address] 33266- 0004 May, Vascular dementia with behavior disturbance F01.51 [place] [id number] [place] [address] 22055- 8023 Apr, [place] [id number] [place] [address] 25846- 7982 Apr, Pain R52 [facility] [address] [place] [id number] Apr, Generalized anxiety disorder F41.1 ; PVD (peripheral vascular disease) I73.9 and Type 2 diabetes mellitus with complication E11.8 [place] [id number] [place] [address] 16309- 4897 Apr, Vascular dementia with behavior disturbance F01.51 [place] [id number] [place] [address] 82016- 5030 Apr, [place] [id number] [place] [address] 61144- 4373 Apr, Vascular dementia with behavior disturbance F01.51 [facility] [id number] [place] [address] 09846- 1079 Apr, [facility] [id number] [place] [address] [id number] Mar, [facility] [address] 38050- 5641 Mar, Type 2 diabetes mellitus with complication E11.8 ; Vascular dementia with behavior disturbance F01.51 and Depression F32.9 [facility] [address] 93264- 9054 Mar, [facility] [id number] [place] [address] 59465- 0714 Feb, [facility] [address] 93575- 6950 Feb, Viral illness B34.9 [facility] [address] 56305- 4806 Jan, Diabetes 250.00 [facility] [address] 02605- 0270 Jan, [facility] [id number] [place] [address] 57094- 3715 Jan, [facility] [id number] [place] [address] 07854- 7864 Jan, [facility] [address] [place] [id number] Jan, Vascular dementia with behavior disturbance F01.51 and Type 2 diabetes mellitus with complication E11.8 [facility] [id number] [place] [address] 15742- 1293 Jan, Pain R52 [facility] [id number] [place] [address] 25956- 0499 Jan, Pain R52 [facility] [id number] [place] [address] 52891- 8058 Dec, [facility] [id number] [place] [address] 58863- 1977 Nov, [facility] [address] [place] [id number] Nov, Type 2 diabetes mellitus with complication E11.8 [facility] [address], [place] [address]- 4411 Nov, [facility] [address], [place] [address]- 6286 Oct, [facility] [address], [place] [address]- 4136 Oct, [facility] [id number] [place] [address] 55320- 3852 Oct, Vascular dementia with behavior disturbance F01.51 and Type 2 diabetes mellitus with complication E11.8 [facility] [address] [place] [address] 74131- 5703 August, Type 2 diabetes mellitus with complication E11.8 and Vascular dementia with behavior disturbance F01.51 [place] [address] [place] [address] 84492- 0400 August, Vascular dementia F01.50 [facility] [id number] [place] [address] 75899- 8237 August, Vascular dementia with behavior disturbance F01.51 [facility] [address], [place] [address]- 5312 Jul, Vascular dementia with behavior disturbance F01.51 [facility] [address], [place] [address]- 4010 Jun, Vascular dementia F01.50 [facility] [address], [place] [address]- 9857 Jun, Type 2 diabetes mellitus with complication E11.8 ; Long- term insulin use Z79.4 and Vascular dementia with behavior disturbance F01.51 [facility] [address], [place] [address]- 0777 Jun, Vascular dementia with behavior disturbance F01.51 [facility] [address] [place] [address] 21131- 5659 Jun, Vascular dementia F01.50 [facility] [address]- 7481 Apr, [facility] [address], [place] [address]- 7425 Apr, [facility] [address] 5540 Apr, [facility] [address] [place] [address] 27800- 1656 Apr, Type 2 diabetes mellitus with complication E11.8 ; Depression F32.9 and Long-term insulin use Z79.4 [facility] [address], [place] [address]- 0260 Mar, [place] [address] [place] [id number] Mar, Depression F32.9 ; Type 2 diabetes mellitus with complication E11.8 and Long-term insulin use Z79.4 [facility] [address], [place] [address]- 7177 Feb, [facility] [address] [place] [address] 93212- 5846 Feb, Hyperthyroidism E05.90 [facility] [address], [place] [address]- 9183 Feb, Hyperthyroidism E05.90 [facility] [address]- 4051 Feb, [facility] [address], [place] [address]- 3011 Jan, [facility] [address], [place] [address]- 1659 Dec, Nicotine addiction 305.1 [facility] [address] 1715 Oct, Nicotine abuse 305.1 [facility] [address] [facility] [id number] [address]- 5266 Oct, [facility] [address], [place] [address]- 9758 August, [facility] [address] [place] [id number] August, History of drug abuse 305.93 and Diabetes 250.00 [facility] [address] [facility] [id number], [place] [address]- 0738 14 Jul, 2014 [facility] [address] [facility] [id number] [address]- 3406 Jul, [facility] [id number], [place] [address]- 3148 Jun, [facility] [address], [place] [address]- 1802 Jun, [facility] [id number], [place] [address]- 6991 Jun, [facility] [id number], [place] [address]- 5997 Jun, [facility] [id number], [place] [address]- 9428 Jun, [facility] [id number], [place] [address]- 0219 Jun, [facility] [address] [facility] [id number], [place] [address]- 4850 May, [facility] [address] [facility] [id number], [place] [address]- 3113 May, [facility] [address] [facility] [id number], [place] [address]- 5709 May, [facility] [id number] 5402 May, [facility] [address] [id number] [place] [address]- 1105 May, [facility] [address] [id number] [place] [address]- 1012 Apr, [facility] [address] [id number] [place] [address]- 7562 Apr, [facility] [address] [place] [id number] Apr, [facility] [address] [id number] [place] [address]- 8269 Apr, [facility] [address] [id number] [place] [address]- 8711 Apr, [facility] [address] [id number] [place] [address]- 5501 Apr, [facility] [address] [id number] [place] [address]- 6928 Apr, [facility] [address] [id number] [place] [address]- 7094 Apr, [facility] [address] [id number] [place] [address]- 8795 Mar, [facility] [address] [id number] [place] [address]- 5976 Mar, [facility] [address] [id number] [place] [address]- 6721 Mar, [facility] [address] [id number] [place] [address]- 2833 Mar, [facility] [address] [id number] [place] [address]- 6979 Mar, [facility] [address] [id number] [place] [address]- 4751 Mar, [facility] [address] [id number] [place] [address]- 5041 Mar, [facility] [place] [facility] [address] [id number] [place] [address]- 7412 Mar, [facility] [place] [facility] [address] [id number] [place] [address]- 2675 Feb, [facility] [place] [facility] [address] [id number] [place] [address]- 8981 Feb, [facility] [place] [facility] [address] [id number] [place] [address]- 6135 Feb, [facility] [place] [facility] [address] [id number] [place] [address]- 8916 Feb, [facility] [place] [facility] [address] [id number] [place] [address]- 8244 Feb, [facility] [address] [place] [address] Feb, [facility] [place] [facility] [address] [id number] [place] [address]- 4604 Feb, [facility] [place] [facility] [address] [id number] [place] [address]- 8345 Feb, [facility] [place] [facility] [address] [id number] [place] [address]- 4009 Feb, [facility] [place] [facility] [address] [id number] [place] [address]- 7093 Feb, [facility] [place] [facility] [address] [id number] [place] [address]- 0853 Jan, [facility] [place] [facility] [address] [id number] [place] [address]- 4674 Jan, [facility] [place] [facility] [address] [id number] [place] [address]- 2734 Jan, [facility] [place] [facility] [address] [id number] [place] [address]- 5886 Jan, [facility] [place] [facility] [address] [id number] [place] [address]- 7694 Jan, [facility] [place] [facility] [address] [id number] [place] [address]- 1310 16 Jan, 2014 [facility] [place] [facility] [address] [id number] [place] [address]- 6694 15 Jan, 2014 [facility] [place] [facility] [address] [id number] [place] [address]- 9067 13 Jan, 2014 [facility] [place] [facility] [address] [id number] [place] [address]- 5359 Jan, [facility] [place] [facility] [address] [id number] [place] [address]- 0126 Jan, [facility] [place] [facility] [address] [id number] [place] [address]- 4106 Jan, [facility] [place] [facility] [address] [id number] [place] [address]- 3046 Jan, [facility] [place] [facility] [address] [id number] [place] [address]- 3610 Jan, [facility] [place] [facility] [address] [id number] [place] [address]- 8683 Jan, [facility] [place] [facility] [address] [id number] [place] [address]- 5741 Jan, [facility] [place] [facility] [address] [id number], [place] [address]- 3791 Jan, [facility] [place] [facility] [address] [id number], [place] [address]- 8817 Jan, [facility] [place] [facility] [address] [id number] [place] [address]- 3318 Dec, [facility] [place] [facility] [address] [id number] [place] [address]- 8943 19 Dec, 2013 [facility] [place] [facility] [address] [id number] [place] 9113 11 Dec, 2013 [facility] [place] [facility] [address] [id number] [place] [address]- 7748 11 Sep, 2013 [facility] [place] [facility] [address] [id number] [place] [address]- 9192 09 Sep, 2013 [facility] [place] [facility] [address] [id number] [place] [address]- 2944 09 Sep, 2013 [facility] [place] [facility] [address] [id number] [place] [address] 08 Sep, 2013 [facility] [place] [facility] [address] [id number] [place] [address] 08 Sep, 2013 [facility] [place] [facility] [address] [id number] [place] [address] 08 Sep, 2013 [facility] [place] [facility] [address] [id number] [place] [address] 08 Dec, 2013 [facility] [place] [facility] [address] [id number] [place] [address] 05 Dec, 2013 [facility] [place] [facility] [address] [id number] [place] [address] 05 Dec, 2013 [facility] [place] [facility] [address] [id number] [place] [address] Dec, 2013 [facility] [place] [facility] [address] [id number] [place] [address] Dec, 2013 [facility] [place] [facility] [address] [id number] [place] [address] Nov, [facility] [place] [facility] [address] [id number] [place] [address] Nov, [facility] [place] [facility] [address] [id number] [place] [address] Nov, [facility] [place] [facility] [address] [id number] [place] [address] Nov, [facility] [place] [facility] [address] [id number] [place] [address] Nov, [facility] [place] [facility] [address] [id number] [place] [address] Nov, [facility] [place] [facility] [address] [id number] [place] [address] Nov, [facility] [place] [facility] [address] [id number] [place] [address] Nov, [facility] [place] [facility] [address] [id number] [place] [address] Nov, [facility] [place] [facility] [address] [id number] [place] [address] Nov, [facility] [place] [facility] [address] [id number] [place] [address] Nov, [facility] [place] [facility] [address] [id number] [place] [address] Nov, [facility] [place] [facility] [address] [id number] [place] [address] Nov, [facility] [place] [facility] [address] [id number] [place] [address] Nov, [facility] [place] [facility] [address] [id number] [place] [address] Oct, [facility] [place] [facility] [address] [id number] [place] [address] Oct, [facility] [place] [facility] [address] [id number] [place] [address] Oct, [facility] [place] [facility] [address] [id number] [place] [address] Oct, [facility] [place] [facility] [address] [id number] [place] [address] Oct, [facility] [place] [facility] [address] [id number] [place] [address] 0020 Oct, [facility] [place] [facility] [address] [id number] [place] [address] 4340 Oct, [facility] [place] [facility] [address] [id number] [place] [address] 8675 Oct, [facility] [place] [facility] [address] [id number] [place] [address] 9161 Oct, [facility] [place] [facility] [address] [id number] [place] [address] 6214 Oct, [facility] [place] [facility] [address] [id number] [place] [address] 3439 Oct, [facility] [place] [facility] [address] [id number] [place] [address] 8402 Oct, [facility] [place] [facility] [address] [id number] [place] [address]- 2780 Oct, [facility] [place] [facility] [address] [id number] [place] [address]- 3020 Oct, [facility] [place] [facility] [address] [id number] [place] [address] 5566 Oct, [facility] [place] [facility] [address] [id number] [place] [address]- 7895 Oct, [facility] [place] [facility] [address] [id number] [place] [address] 9867 Oct, [facility] [place] [facility] [address] [id number] [place] [address]- 0558 Oct, [facility] [place] [facility] [address] [id number] [place] [address] 5719 Oct, [facility] [place] [facility] [address] [id number] [place] [address]- 6953 Oct, [facility] [place] [facility] [address] [id number] [place] [address]- 8523 Sep, [facility] [place] [facility] [address] [id number] [place] [address]- 2642 Sep, [facility] [place] [facility] [address] [id number] [place] [address]- 1567 Sep, [facility] [place] [facility] [address] [id number] [place] [address]- 5045 Sep, [facility] [place] [facility] [address] [id number] [place] [address]- 9634 Sep, [facility] [place] [facility] [address] [id number] [place] [address] Sep, [facility] [place] [facility] [address] [id number] [place] [address]- 5083 August, [facility] [place] [facility] [address] [id number] [place] [address]- 4109 August, [facility] [place] [facility] [address] [id number] [place] [address]- 8612 Jul, [facility] [place] [facility] [address] [id number] [place] [address]- 3023 Jul, [facility] [place] [facility] [address] [id number] [place] [address]- 5721 Jul, [facility] [place] [facility] [address] [id number] [place] [address]- 9710 Jul, [facility] [place] [facility] [address] [id number] [place] [address]- 8753 Jul, [facility] [place] [facility] [address] [id number] [place] [address]- 6899 Jul, [facility] [place] [facility] [address] [id number] [place] [address]- 4616 Jul, [facility] [place] [facility] [address] [id number] [place] [address]- 8925 Jul, [facility] [place] [facility] [address] [id number] [place] [address]- 7439 Jun, [facility] [place] [facility] [address] [id number] [place] [address] Jun, [facility] [place] [facility] [address] [id number] [place] [address]- 0536 Jun, [facility] [place] [facility] [address] [id number] [place] [address]- 5527 Jun, [facility] [place] [facility] [address] [id number] [place] [address]- 6224 Jun, [facility] [place] [facility] [address] [id number] [place] [address]- 9328 May, [facility] [place] [facility] [address] [id number] [place] [address]- 8162 May, [facility] [place] [facility] [address] [id number] [place] [address]- 1383 May, [facility] [place] [facility] [address] [id number] [place] [address]- 8628 May, [facility] [place] [facility] [address] [id number] [place] [address]- 4372 May, [facility] [place] [facility] [address] [id number] [place] [address]- 4672 May, [facility] [place] [facility] [address] [id number] [place] [address]- 0107 May, [facility] [place] [facility] [address] [id number] [place] [address]- 6663 May, [facility] [place] [facility] [address] [id number] [place] [address]- 3021 May, [facility] [place] [facility] [address] [id number] [place] [address]- 4848 May, [facility] [place] [facility] [address] [id number] [place] [address]- 1233 May, [facility] [place] [facility] [address] [id number] [place] [address]- 4315 Apr, [facility] [place] [facility] [address] [id number] [place] [address]- 6985 Apr, [facility] [address] [id number] [place] [address]- 2524 Mar, [facility] [place] [facility] [address] [id number] [place] [address]- 2253 Mar, [facility] [address] [id number] [place] [address]- 8426 Mar, [facility] [place] [facility] [address] [id number] [place] [address]- 4586 Mar, [facility] [address] [id number] [place] [address]- 9093 Mar, [facility] [place] [facility] [address] [id number] [place] [address]- 7249 Jan, [facility] [place] [facility] [address] [id number] [place] [address]- 4726 Jan, [facility] [address] [id number] [place] [address]- 6892 Jan, [facility] [place] [facility] [address] [id number] [place] [address]- 9823 Jan, [facility] [address] [id number] [place] [address]- 2665 Jan, [facility] [place] [facility] [address] [id number] [place] [address]- 7681 Jan, [facility] [place] [facility] [address] [id number] [place] [address]- 8863 Jan, [facility] [place] [facility] [address] [id number] [place] [address]- 6723 Jan, [facility] [place] [facility] [address] [id number] [place] [address]- 0079 Jan, [facility] [place] [facility] [address] [id number] [place] [address]- 3760 Jan, [facility] [address] [id number] [place] [address]- 4614 Dec, [facility] [place] [facility] [address] [id number] [place] [address] Oct, [facility] [place] [facility] [address] [id number] [place] [address] Oct, [facility] [place] [facility] [address] [id number] [place] [address]- 5867 Oct, [facility] [address] [id number] [place] [address]- 6407 Oct, [facility] [place] [facility] [address] [id number] [place] [address]- 2871 Oct, [facility] [place] [facility] [address] [id number] [place] [address]- 2154 Oct, [facility] [address] [id number] [place] [address]- 0894 Sep, [facility] [place] [facility] [address] [id number] [place] [address] August, [facility] [place] [facility] [address] [id number] [place] [address]- 9811 August, [facility] [place] [facility] [address] [id number] [place] [address]- 1250 August, [facility] [place] [facility] [address] [id number] [place] [address]- 7416 August, [facility] [place] [facility] [address] [id number] [place] [address]- 7996 August, [facility] [place] [facility] [address] [id number] [place] [address]- 4136 May, [facility] [place] [facility] [address] [id number] [place] [address]- 0166 Apr, [facility] [place] [facility] [address] [id number], [place] [address]- 60[address] Apr, [facility] [address] [id number] [place] [address]- 8604 Apr, [facility] [address] [id number] [place] [address]- 2519 Apr, [facility] [address] [id number] [place] [address]- 2854 Apr, [facility] [address] [place] [id number] Mar, [facility] [address] [id number] [place] [address]- 8697 Mar, [facility] [address] [id number] [place] [address]- 4127 Mar, [facility] [address] [id number] [place] [address]- 3930 Mar, [facility] [address] [id number] [place] [address]- 9435 17 Mar, 2012 [facility] [address] [id number] [place] [address]- 0518 17 Mar, 2012 [facility] [address] [id number] [place] [address]- 1181 Mar, [facility] [address] [id number] [place] [address]- 1899 13 Mar, 2012 [facility] [address] [id number], [place] [address]- 6831 13 Mar, 2012 [facility] [address] [id number] [place] [address]- 5649 Mar, [facility] [address] [id number] [place] [address]- 5502 12 Mar, 2012 [facility] [address] [id number] [place] [address]- 2468 Mar, [facility] [address] [id number] [place] [address]- 2417 Mar, [facility] [address] [id number] [place] [address]- 7153 Mar, [facility] [place] [facility] [address] [id number] [place] [address]- 8454 Mar, [facility] [place] [facility] [address] [id number] [place] [address]- 1274 Mar, [facility] [place] [facility] [address] [id number] [place] [address]- 2663 Mar, [facility] [place] [facility] [address] [id number] [place] [address]- 1545 Mar, [facility] [place] [facility] [address] [id number] [place] [address]- 4710 Mar, [facility] [place] [facility] [address] [facility] [id number] [place] [address]- 7217 Mar, [facility] [place] [facility] [address] [id number] [place] [address]- 3340 Feb, [facility] [place] [facility] [address] [id number] [place] [address]- 2524 Feb, [facility] [place] [facility] [address] [facility] [id number] [place] [address]- 3282 Feb, [facility] [place] [facility] [address] [id number] [place] [address]- 0705 Feb, [facility] [place] [facility] [address] [id number] [place] [address]- 4626 Jan, [facility] [place] [facility] [address] [id number] [place] [address]- 7216 Jan, [facility] [place] [facility] [address] [facility] [id number] [place] [address]- 1969 Jan, [facility] [place] [facility] [address] [id number] [place] [address]- 4290 Jan, [facility] [place] [facility] [address] [id number] [place] [address]- 0657 29 Jan, 2012 [facility] [place] [facility] [address] [id number] [place] [address]- 5280 29 Jan, 2012 [facility] [place] [facility] [address] [id number] [place] [address]- 0030 Jan, [facility] [place] [facility] [address] [id number] [place] [address]- 7940 Jan, [facility] [place] [facility] [address] [id number] [place] [address]- 4616 10 Jan, 2012 [facility] [place] [facility] [address] [id number] [place] [address]- 2037 27 Dec, 2011 [facility] [place] [facility] [address] [id number] [place] [address]- 4532 14 Dec, 2011 [facility] [place] [facility] [address] [id number] [place] [address]- 6591 12 Dec, 2011 [facility] [place] [facility] [address] [id number] [place] [address]- 8091 06 Dec, 2011 [facility] [place] [facility] [address] [id number] [place] [address]- 9168 06 Dec, 2011 [facility] [place] [facility] [address] [id number] [place] [address]- 4889 Nov, [facility] [place] [facility] [address] [id number], [place] [address]- 3557 29 Nov, 2011 [facility] [place] [facility] [address] [id number] [place] [address]- 5095 23 Nov, 2011 [facility] [place] [facility] [address] [id number] [place] [address]- 2101 14 Nov, 2011 [facility] [place] [facility] [address] [id number] [place] [address]- 2722 13 Nov, 2011 [facility] [place] [facility] [address] [id number] [place] [address]- 6236 Nov, [facility] [place] [facility] [address] [id number] [place] [address]- 0020 Nov, [facility] [place] [facility] [address] [id number] [place] Nov, [facility] [place] [facility] [address] [id number] [place] [address]- 6753 Nov, [facility] [place] [facility] [address] [id number] [place] [address]- 0232 Oct, [facility] [place] [facility] [address] [id number] [place] [address]- 4944 Oct, [facility] [place] [facility] [address] [id number] [place] [address]- 3331 Sep, [facility] [place] [facility] [address] [id number] [place] [address]- 2086 Sep, [facility] [place] [facility] [address] [id number] [place] [address]- 8446 Sep, [facility] [place] [facility] [address] [id number] [place] [address]- 0084 August, [facility] [place] [facility] [address] [id number] [place] [address]- 6586 30 Jul, 2011 [facility] [place] [facility] [address] [id number] [place] [address]- 3706 27 Jul, 2011 [facility] [place] [facility] [address] [id number] [place] [address]- 2314 27 Jul, 2011 [facility] [place] [facility] [address] [id number] [place] [address]- 5014 18 Jul, 2011 [facility] [place] [facility] [address] [id number] [place] [address]- 9122 16 Jul, 2011 [facility] [place] [facility] [address] [id number] [place] [address]- 1346 16 Jul, 2011 [facility] [place] [facility] [address] [id number] [place] [address]- 4191 16 Jul, 2011 [facility] [place] [facility] [address] [id number] [place] [address]- 1580 14 Jul, 2011 [facility] [place] [facility] [address] [id number] [place] [address]- 6666 12 Jul, 2011 [facility] [place] [facility] [address] [id number] [place] [address]- 5954 19 Jun, 2011 [facility] [place] [facility] [address] [id number] [place] [address]- 8100 18 Jun, 2011 [facility] [place] [facility] [address] [id number] [place] [address]- 9596 15 Jun, 2011 [facility] [place] [facility] [address] [id number] [place] [address]- 4680 12 Jun, 2011 [facility] [place] [facility] [address] [id number] [place] [address]- 2341 08 Jun, 2011 [facility] [place] [facility] [address] [id number] [place] [address]- 8047 08 Jun, 2011 [facility] [place] [facility] [address] [id number] [place] [address]- 3069 08 Jun, 2011 [facility] [place] [facility] [address] [id number] [place] [address]- 9707 08 Jun, 2011 [facility] [place] [facility] [address] [id number] [place] [address]- 7297 May, [facility] [place] [facility] [address] [id number] [place] [address]- 3892 May, [facility] [place] [facility] [address] [id number] [place] [address]- 5710 May, [facility] [place] [facility] [address] [id number] [place] [address]- 3226 Apr, [facility] [place] [facility] [address] [id number] [place] [address]- 6650 Apr, [facility] [address] [id number] [place] [address]- 9003 18 Apr, 2011 [facility] [address] [id number] [place] [address]- 1616 Mar, [facility] [address] [id number] [place] [address]- 5386 Mar, [facility] [place] [facility] [address] [id number] [place] [address]- 8430 15 Mar, 2011 [facility] [address] [id number] [place] [address]- 5987 Mar, [facility] [place] [facility] [address] [id number] [place] [address]- 6606 Mar, [facility] [place] [facility] [address] [id number] [place] [address]- 8656 Mar, [facility] [place] [facility] [address] [id number] [place] [address]- 8965 Mar, [facility] [place] [facility] [address] [id number] [place] [address]- 1009 Mar, [facility] [place] [facility] [address] [id number] [place] [address]- 7534 Mar, [facility] [place] [facility] [address] [id number], [place] [address]- 9699 Mar, [facility] [place] [facility] [address] [id number], [place] [address]- 2081 06 Mar, 2011 [facility] [place] [facility] [address] [id number] [place] [address]- 4025 Mar, [facility] [place] [facility] [address] [id number] [place] [address]- 2352 Mar, [facility] [place] [facility] [address] [id number] [place] 7623 05 Mar, 2011 [facility] [place] [facility] [address] [id number] [place] [address]- 1481 29 Feb, 2011 [facility] [place] [facility] [address] [id number] [place] [address]- 4150 22 Feb, 2011 [facility] [place] [facility] [address] [id number] [place] [address]- 9326 14 Feb, 2011 [facility] [place] [facility] [address] [id number] [place] [address]- 2774 29 Jan, 2011 [facility] [place] [facility] [address] [id number] [place] [address]- 9993 Jan, [facility] [place] [facility] [address] [id number] [place] [address]- 3394 Oct, [facility] [place] [facility] [address] [id number] [place] [address]- 1578 Sep, [facility] [place] [facility] [address] [id number] [place] [address]- 2752 Mar, [facility] [place] [facility] [address] [id number] [place] [address]- 9412 16 Mar, 2010 [facility] [place] [facility] [address] [id number] [place] [address]- 8052 16 Feb, 2010 [facility] [place] [facility] [address] [facility] [id number] [place] [address]- 3547 Feb, [facility] [place] [facility] [address] [id number] [place] [address]- 3974 27 Jan, 2010 [facility] [place] [facility] [address] [id number] [place] [address]- 2107 Jan, [facility] [place] [facility] [address] [id number] [place] [address]- 9563 07 Mar, 2009 [facility] [place] [facility] [address] [id number] [place] [address]- 7727 Feb, [facility] [place] [facility] [address] [id number] [place] [address]- 2790 Feb, [facility] [address] [facility] [id number], [place] [address] Feb, [facility] [address] [facility] [id number], [place] [address] Feb, [facility] [address] [facility] [id number], [place] [address] Jan, [facility] [address] [facility] [id number], [place] [address] Dec, [facility] [address] [facility] [id number], [place] [address] Nov, IMMUNIZATIONS No Known Immunizations SOCIAL HISTORY Never Assessed REASON FOR VISIT Medication list reconcilliation PLAN OF CARE VITAL SIGNS MEDICATIONS Medication Instructions Dosage Frequency Start Date End Date Duration Status NovoLog 100 UNIT/ML Subcutaneous 3 times a day 3 units 8h Active Levetiracetam 500 mg Orally Twice a day 1 tablet 12h Active Simvastatin 10 MG Orally Once a day 1 tablet in the evening 24h Active Metformin HCl 1000 MG Orally Twice a day 1 tablet with meals 12h Active Celexa 40 mg Orally Once a day 1 tablet 24h Active Metoprolol Tartrate 25 MG Orally Twice a day 1 tablet with food 12h Active Remeron 15 MG Orally Once a day 1 tablet at bedtime 24h Active Levemir 100 UNIT/ML Subcutaneous at bedtime 4 units Active Lactobacillus - Orally 4 times a day 1 tablet 6h Active Aspir-81 81 MG Orally Once a day 1 tablet 24h Active Clonidine HCl 0.2 MG Orally twice a day 1 tablet 12h Active Plavix 75 MG Orally Once a day 1 tablet 24h Active Synthroid 150 MCG Orally Once a day 1 tablet on an empty stomach in the morning 24h Active Vasotec 2.5 MG Orally Once a day 1 tablet 24h Active Divalproex Sodium 125 MG Orally 4 times a day 2 capsules 6h Active Aricept 10 mg Orally Once a day 1 tablet at bedtime 24h Dec, 30 day(s) Active Melatonin 3 MG Orally Once a day 1 tablet at bedtime 24h Active Mylanta 200-200-20 MG/5ML Orally every 4 hrs 30 ml as needed 4h Active Klonopin 0.5 MG Orally Twice a day 2 tablets in AM and 1 in PM 12h August, 28 days Active Cholecalciferol 4000 UNIT Orally Once a day 1 tablet 24h Active Exelon 9.5 MG/24HR Transdermal Once a day 1 patch to skin 24h Active Ultram 50 mg Orally 3 times a day 1 tablet 8h 30 Apr, 2016 28 days Active RESULTS No Results PROCEDURES No Known procedures INSTRUCTIONS MEDICATIONS ADMINISTERED No Known Medications MEDICAL (GENERAL) HISTORY Type Description Date Hospitalization History [facility] March 2015
--- OUTSIDE RECORDS SUMMARY | 2017-10-27 10:47 | XMS REPORT ---
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 Name Role Phone STEPHANIE CHRISTIANSEN Unavailable PROBLEMS Type Condition ICD9-CM Code CYW38-BF Code Onset Dates Condition Status SNOMED Code Problem Hyperlipidemia, unspecified hyperlipidemia type E78.5 Active 77807606 Problem Long-term insulin use Z79.4 Active 232849442 Problem Abnormal carotid ultrasound R93.8 Active 171401632 Problem Type 2 diabetes mellitus with complication E11.8 Active 42006558 Problem Positive TB test R76.11 Active 785623396 Problem Vascular dementia with behavior disturbance F01.51 Active 311252373 Problem PVD (peripheral vascular disease) I73.9 Active 688590383 Problem Pain R52 Active 99533521 Problem Other chronic osteomyelitis of left foot M86.672 Active 280775866 Problem Nicotine dependence, unspecified, uncomplicated F17.200 Active 858179088 Problem Peripheral vascular disease due to secondary diabetes E13.51 Active 8527702 Problem Nonintractable epilepsy without status epilepticus, unspecified epilepsy type G40.909 Active 514069229 Problem Recurrent major depressive disorder, remission status unspecified F33.9 Active 87458267 Problem Anxiety F41.9 Active 10877007 Problem Generalized anxiety disorder F41.1 Active 35562719 Problem Vascular dementia F01.50 Active 159377972 Problem Pseudobulbar affect F48.2 Active 67759344 Problem Coronary artery disease involving cata[place] coronary artery of cata[place]ba heart without angina pectoris I25.10 Active 5065594821543 Problem Gastroesophageal reflux disease without esophagitis K21.9 Active 214814925 Problem Cerebrovascular accident (CVA) due to other mechanism I63.8 Active 695173742 Problem Pulmonary emphysema, unspecified emphysema type J43.9 Active 19964132 Problem Neuropathy G62.9 Active 407187520 Problem Depression F32.9 Active 26376704 Problem Essential hypertension I10 Active 05193729 Problem Acquired hypothyroidism E03.9 Active 011044112 ALLERGIES No Information ENCOUNTERS Encounter Location Date Diagnosis [facility] [address] [address] Sep, [facility] [id number] [place] [address] 25675- 8391 Sep, Type 2 diabetes mellitus with complication E11.8 [facility] [id number] [place] [address] 24534- 2637 August, Generalized anxiety disorder F41.1 [place] [id number] [place] [address] 84809- 1895 August, [facility] [address] [place] [id number] August, Type 2 diabetes mellitus with complication E11.8 ; Vascular dementia with behavior disturbance F01.51 ; Long-term insulin use Z79.4 and Nicotine dependence, unspecified, uncomplicated F17.200 [place] [id number] [place] [address] 92653- 9162 August, Generalized anxiety disorder F41.1 [place] [id number] [place] [address] 91862- 4983 Jul, Generalized anxiety disorder F41.1 [facility] [id number] [place] [address] [id number] Jun, Generalized anxiety disorder F41.1 [facility] [id number] [id number] Jun, [facility] [id number] [place] [address] [id number] May, [facility] [id number] [place] [address] 01218852- 4718 May, [facility] [id number] [place] [address] [id number] May, Generalized anxiety disorder F41.1 [facility] [address], [place] [address] 3[address] Apr, [facility] [address] [place] [id number] Apr, Other chronic osteomyelitis of left foot M86.672 ; Type 2 diabetes mellitus with complication E11.8 ; Vascular dementia F01.50 ; Long-term insulin use Z79.4 ; PVD (peripheral vascular disease) I73.9 and Nicotine abuse 305.1 [facility] [id number] [place] [address] 35226- 7770 Apr, [facility] [id number] [place] [address] [id number] Apr, [facility] [id number] [place] [address] 47333- 6399 Apr, Pain R52 and Generalized anxiety disorder F41.1 [facility] [id number] [place] [address] 85671- 0456 Mar, [facility] [address] 69697- 9941 Mar, Pain R52 and Generalized anxiety disorder F41.1 [facility] [address] [place] [id number] Feb, Depression F32.9 ; Type 2 diabetes mellitus with complication E11.8 and Nicotine dependence, unspecified, uncomplicated F17.200 [facility] [id number] [place] [address] 66727- 9538 Feb, Generalized anxiety disorder F41.1 and Pain R52 [facility] [id number] [place] [address] 86716- 0898 Feb, [facility] [id number] [place] [address] 75863- 8457 Jan, [facility] [id number] [place] [address] 63836- 5965 Jan, Generalized anxiety disorder F41.1 and Pain R52 [facility] [id number] [place] [address] 41597- 3924 Jan, [facility] [id number] [place] [address] [id number] 27 Dec, 2016 Generalized anxiety disorder F41.1 and Pain R52 [facility] [address] [place] [id number] Dec, Vascular dementia F01.50 ; Pain of left leg M79.605 ; Pain in right leg M79.604 and Type 2 diabetes mellitus with complication E11.8 [facility] [id number] [place] [address] 13984- 7609 Dec, Pain R52 [facility] [id number] [place] [address] 47089- 8046 Dec, [facility] [id number] [place] [address] 61507- 6810 Nov, [facility] [id number] [place] [address] 69706- 6651 Nov, Pain R52 and Generalized anxiety disorder F41.1 [place] [address] [place] [id number] Nov, Depression F32.9 ; Vascular dementia with behavior disturbance F01.51 and Anxiety F41.9 [facility] [id number] [place] [address] 98958- 4884 Nov, Pain R52 and Generalized anxiety disorder F41.1 [facility] [address], [place] [address] 2532 Oct, Generalized anxiety disorder F41.1 [facility] [id number] [place] [address] 71690- 1419 Oct, Pain R52 [facility] [id number] [place] [address] 46895- 4398 Sep, [facility] [address] [place] [id number] Sep, Generalized anxiety disorder F41.1 [facility] [address], [place] [address] 8393 Sep, Pain R52 [facility] [id number] [address] 2546 Sep, Generalized anxiety disorder F41.1 [facility] [id number] [place] [address] 48876- 6766 August, [facility] [id number] [place] [address] 01016- 2546 August, [facility] [id number] [place] [address] 71735- 6407 August, Pain R52 [facility] [id number] [place] [address] 38038- 6640 August, Generalized anxiety disorder F41.1 [facility] [id number] [place] [address] [id number] August, Generalized anxiety disorder F41.1 [facility] [id number] [place] [address] 22768- 5956 Jul, Pain R52 [facility] [id number] [place] [address] 19502- 9275 Jul, [facility] [id number] [place] [address] [id number] Jul, [facility] [id number] [place] [address] 98268- 3408 Jun, [facility] [id number] [place] [address] [id number] Jun, Depression F32.9 [facility] [id number] [place] [address] 09747- 9721 Jun, Pain R52 [facility] [id number] [place] [address] 06363- 2044 Jun, [facility] [address] [place] [id number] Jun, Vascular dementia F01.50 and Depression F32.9 [facility] [address], [place] [address]- 8186 May, Pain R52 [facility] [id number] [place] [address] 54183- 5006 May, [facility] [address] 31998- 2506 May, Pseudobulbar affect F48.2 [facility] [address] 25372- 4040 May, [facility] [address] 01110- 0174 May, PVD (peripheral vascular disease) I73.9 [place] [address] 77476- 0814 May, Vascular dementia with behavior disturbance F01.51 [place] [id number] [place] [address] 48664- 7208 May, Vascular dementia with behavior disturbance F01.51 [place] [id number] [place] [address] 75562- 9435 Apr, [place] [id number] [place] [address] 52845- 9650 Apr, Pain R52 [facility] [address] [place] [id number] Apr, Generalized anxiety disorder F41.1 ; PVD (peripheral vascular disease) I73.9 and Type 2 diabetes mellitus with complication E11.8 [place] [id number] [place] [address] 16212- 3560 Apr, Vascular dementia with behavior disturbance F01.51 [place] [id number] [place] [address] 12119- 1090 Apr, [place] [id number] [place] [address] 81004- 4213 Apr, Vascular dementia with behavior disturbance F01.51 [facility] [id number] [place] [address] 82383- 8450 Apr, [facility] [id number] [place] [address] [id number] Mar, [facility] [address] 54115- 5708 Mar, Type 2 diabetes mellitus with complication E11.8 ; Vascular dementia with behavior disturbance F01.51 and Depression F32.9 [facility] [address] 65876- 2907 Mar, [facility] [id number] [place] [address] 90466- 8116 Feb, [facility] [address] 31759- 9784 Feb, Viral illness B34.9 [facility] [address] 47476- 4957 Jan, Diabetes 250.00 [facility] [address] 51740- 0790 Jan, [facility] [id number] [place] [address] 50201- 9153 Jan, [facility] [id number] [place] [address] 62636- 6828 Jan, [facility] [address] [place] [id number] Jan, Vascular dementia with behavior disturbance F01.51 and Type 2 diabetes mellitus with complication E11.8 [facility] [id number] [place] [address] 37139- 0366 Jan, Pain R52 [facility] [id number] [place] [address] 89045- 2885 Jan, Pain R52 [facility] [id number] [place] [address] 37350- 3753 Dec, [facility] [id number] [place] [address] 71748- 5761 Nov, [facility] [address] [place] [id number] Nov, Type 2 diabetes mellitus with complication E11.8 [facility] [address] [address]- 0036 Nov, [facility] [address], [place] [address]- 8492 Oct, [facility] [address] [address]- 8743 Oct, [facility] [id number] [place] [address] 34736- 3803 Oct, Vascular dementia with behavior disturbance F01.51 and Type 2 diabetes mellitus with complication E11.8 [facility] [id number] [place] [address] 92093- 8937 August, Type 2 diabetes mellitus with complication E11.8 and Vascular dementia with behavior disturbance F01.51 [place] [id number] [place] [address] 08411- 4532 August, Vascular dementia F01.50 [facility] [id number] [place] [address] 95675- 6436 August, Vascular dementia with behavior disturbance F01.51 [facility] [address] [address]- 8059 Jul, Vascular dementia with behavior disturbance F01.51 [facility] [address], [place] [address]- 1549 Jun, Vascular dementia F01.50 [facility] [address] [address]- 0055 Jun, Type 2 diabetes mellitus with complication E11.8 ; Long- term insulin use Z79.4 and Vascular dementia with behavior disturbance F01.51 [facility] [address] [address]- 0872 Jun, Vascular dementia with behavior disturbance F01.51 [facility] [id number] [place] [address] 26811- 7073 Jun, Vascular dementia F01.50 [facility] [address] 4327 Apr, [facility] [address], [place] [address]- 6555 Apr, [facility] [address] 6020 Apr, [facility] [id number] [place] [address] 78807- 1452 Apr, Type 2 diabetes mellitus with complication E11.8 ; Depression F32.9 and Long-term insulin use Z79.4 [facility] [address] [address]- 7654 Mar, [place] [address] [place] [id number] Mar, Depression F32.9 ; Type 2 diabetes mellitus with complication E11.8 and Long-term insulin use Z79.4 [facility] [address] [address]- 6228 Feb, [facility] [id number] [place] [address] 04613- 3650 Feb, Hyperthyroidism E05.90 [facility] [address] [address]- 8236 Feb, Hyperthyroidism E05.90 [facility] [address] 1582 Feb, [facility] [address] [address]- 0190 Jan, [facility] [address] [address]- 4941 Dec, Nicotine addiction 305.1 [facility] [address] 7976 Oct, Nicotine abuse 305.1 [facility] [address] [facility] [id number] [address]- 1672 Oct, [facility] [address], [place] [address]- 3972 August, [facility] [address] [place] [id number] August, History of drug abuse 305.93 and Diabetes 250.00 [facility] [address] [facility] [id number] [address]- 5030 14 Jul, 2014 [facility] [address] [facility] [id number], [place] [address]- 2779 Jul, [facility] [id number] [address]- 6547 Jun, [facility] [address], [place] [address]- 7687 Jun, [facility] [id number] [address]- 3243 Jun, [facility] [id number] [address]- 9640 Jun, [facility] [id number] [address]- 5520 Jun, [facility] [id number] [address]- 9584 Jun, [facility] [address] [facility] [id number] [address]- 7631 May, [facility] [address] [facility] [id number] [address]- 6706 May, [facility] [address] [facility] [id number] [address]- 4932 May, [facility] [id number] 5379 May, [facility] [address] [id number] [place] [address]- 8307 May, [facility] [address] [id number] [place] [address]- 3683 Apr, [facility] [address] [id number] [place] [address]- 8628 Apr, [facility] [address] [place] [id number] Apr, [facility] [address] [id number] [place] [address]- 1348 Apr, [facility] [address] [id number] [place] [address]- 1158 Apr, [facility] [address] [id number] [place] [address]- 5304 Apr, [facility] [address] [id number] [place] [address]- 6766 Apr, [facility] [address] [id number] [place] [address]- 9993 Apr, [facility] [address] [id number] [place] [address]- 4067 Mar, [facility] [address] [id number] [place] [address]- 9934 Mar, [facility] [address] [id number] [place] [address]- 8045 Mar, [facility] [address] [id number] [place] [address]- 6215 Mar, [facility] [address] [id number] [place] [address]- 4909 Mar, [facility] [address] [id number] [place] [address]- 1815 Mar, [facility] [address] [id number] [place] [address]- 2060 Mar, [facility] [place] [facility] [address] [id number] [place] [address]- 8376 Mar, [facility] [place] [facility] [address] [id number] [place] [address]- 8159 Feb, [facility] [place] [facility] [address] [id number] [place] [address]- 6347 Feb, [facility] [place] [facility] [address] [id number] [place] [address]- 6866 Feb, [facility] [place] [facility] [address] [id number] [place] [address]- 7267 Feb, [facility] [place] [facility] [address] [id number] [place] [address]- 6985 Feb, [facility] [address] [place] [id number] Feb, [facility] [place] [facility] [address] [id number] [place] [address]- 9235 Feb, [facility] [place] [facility] [address] [id number] [place] [address]- 4129 Feb, [facility] [place] [facility] [address] [id number] [place] [address]- 9894 Feb, [facility] [place] [facility] [address] [id number] [place] [address]- 9615 Feb, [facility] [place] [facility] [address] [id number] [place] [address]- 8901 Jan, [facility] [place] [facility] [address] [id number] [place] [address]- 4853 Jan, [facility] [place] [facility] [address] [id number] [place] [address]- 3658 Jan, [facility] [place] [facility] [address] [id number] [place] [address]- 3616 Jan, [facility] [place] [facility] [address] [id number] [place] [address]- 9283 Jan, [facility] [place] [facility] [address] [id number] [place] [address]- 1759 16 Jan, 2014 [facility] [place] [facility] [address] [id number] [place] [address]- 4976 15 Jan, 2014 [facility] [place] [facility] [address] [id number] [place] [address]- 2800 13 Jan, 2014 [facility] [place] [facility] [address] [id number] [place] [address]- 8152 Jan, [facility] [place] [facility] [address] [id number] [place] [address]- 9266 Jan, [facility] [place] [facility] [address] [id number] [place] [address]- 5817 Jan, [facility] [place] [facility] [address] [id number] [place] [address]- 3042 Jan, [facility] [place] [facility] [address] [id number] [place] [address]- 9429 Jan, [facility] [place] [facility] [address] [id number] [place] [address]- 5142 Jan, [facility] [place] [facility] [address] [id number] [place] [address]- 4556 Jan, [facility] [place] [facility] [address] [id number], [place] [address]- 9848 Jan, [facility] [place] [facility] [address] [id number] [address]- 6077 Jan, [facility] [place] [facility] [address] [id number] [place] [address]- 3700 Dec, [facility] [place] [facility] [address] [id number] [place] [address] 19 Dec, 2013 [facility] [place] [facility] [address] [id number] [place] [address] 11 Dec, 2013 [facility] [place] [facility] [address] [id number] [place] [address] 11 Sep, 2013 [facility] [place] [facility] [address] [id number] [place] [address] 09 Sep, 2013 [facility] [place] [facility] [address] [id number] [place] [address] 09 Sep, 2013 [facility] [place] [facility] [address] [id number] [place] [address] 08 Sep, 2013 [facility] [place] [facility] [address] [id number] [place] [address] 08 Sep, 2013 [facility] [place] [facility] [address] [id number] [place] [address] 08 Sep, 2013 [facility] [place] [facility] [address] [id number] [place] [address] 08 Dec, 2013 [facility] [place] [facility] [address] [id number] [place] [address] 05 Dec, 2013 [facility] [place] [facility] [address] [id number] [place] [address]- [address] 05 Dec, 2013 [facility] [place] [facility] [address] [id number] [place] [address] Dec, 2013 [facility] [place] [facility] [address] [id number] [place] [address] Dec, 2013 [facility] [place] [facility] [address] [id number] [place] [address] Nov, [facility] [place] [facility] [address] [id number] [place] [address] Nov, [facility] [place] [facility] [address] [id number] [place] [address] Nov, [facility] [place] [facility] [address] [id number] [place] [address] Nov, [facility] [place] [facility] [address] [id number] [place] [address] Nov, [facility] [place] [facility] [address] [id number] [place] [address] Nov, [facility] [place] [facility] [address] [id number] [place] [address] Nov, [facility] [place] [facility] [address] [id number] [place] [address] Nov, [facility] [place] [facility] [address] [id number] [place] [address] Nov, [facility] [place] [facility] [address] [id number] [place] [address] Nov, [facility] [place] [facility] [address] [id number] [place] [address] Nov, [facility] [place] [facility] [address] [id number] [place] [address] Nov, [facility] [place] [facility] [address] [id number] [place] [address] Nov, [facility] [place] [facility] [address] [id number] [place] [address] Nov, [facility] [place] [facility] [address] [id number] [place] [address] Oct, [facility] [place] [facility] [address] [id number] [place] [address] Oct, [facility] [place] [facility] [address] [address] [id number] [place] [address] Oct, [facility] [place] [facility] [address] [id number] [place] [address] Oct, [facility] [place] [facility] [address] [id number] [place] [address] 4[address] Oct, [facility] [place] [facility] [address] [id number] [place] [address] 6154 Oct, [facility] [place] [facility] [address] [id number] [place] [address] 4963 Oct, [facility] [place] [facility] [address] [id number] [place] [address] 2105 Oct, [facility] [place] [facility] [address] [id number] [place] [address] 9976 Oct, [facility] [place] [facility] [address] [id number] [place] [address] 6941 Oct, [facility] [place] [facility] [address] [id number] [place] [address] 5902 Oct, [facility] [place] [facility] [address] [id number] [place] [address] 3675 Oct, [facility] [place] [facility] [address] [id number] [place] [address]- 6693 Oct, [facility] [place] [facility] [address] [id number] [place] [address] 4108 Oct, [facility] [place] [facility] [address] [id number] [place] [address] 5735 Oct, [facility] [place] [facility] [address] [id number] [place] [address]- 0753 Oct, [facility] [place] [facility] [address] [id number] [place] [address]- 7827 Oct, [facility] [place] [facility] [address] [id number] [place] [address] 8167 Oct, [facility] [place] [facility] [address] [id number] [place] [address]- 2126 Oct, [facility] [place] [facility] [address] [id number] [place] [address]- 6407 Oct, [facility] [place] [facility] [address] [id number] [place] [address]- 5065 Sep, [facility] [place] [facility] [address] [id number] [place] [address]- 4225 Sep, [facility] [place] [facility] [address] [id number] [place] [address]- 2587 Sep, [facility] [place] [facility] [address] [id number] [place] [address]- 1574 Sep, [facility] [place] [facility] [address] [id number] [place] [address]- 4617 Sep, [facility] [place] [facility] [address] [id number] [place] [address] Sep, [facility] [place] [facility] [address] [id number] [place] [address]- 2012 August, [facility] [place] [facility] [address] [id number] [place] [address]- 9909 August, [facility] [place] [facility] [address] [id number] [place] [address]- 5806 Jul, [facility] [place] [facility] [address] [id number] [place] [address]- 3917 Jul, [facility] [place] [facility] [address] [id number] [place] [address]- 9088 Jul, [facility] [place] [facility] [address] [id number] [place] [address]- 5943 Jul, [facility] [place] [facility] [address] [id number] [place] [address]- 3958 Jul, [facility] [place] [facility] [address] [id number] [place] [address]- 3039 Jul, [facility] [place] [facility] [address] [id number] [place] [address]- 4624 Jul, [facility] [place] [facility] [address] [id number] [place] [address]- 3059 Jul, [facility] [place] [facility] [address] [id number] [place] [address]- 8799 Jun, [facility] [place] [facility] [address] [id number] [place] [address] Jun, [facility] [place] [facility] [address] [id number] [place] [address]- 2717 Jun, [facility] [place] [facility] [address] [id number] [place] [address]- 6195 Jun, [facility] [place] [facility] [address] [id number] [place] [address]- 4351 Jun, [facility] [place] [facility] [address] [id number] [place] [address]- 4119 May, [facility] [place] [facility] [address] [id number] [place] [address]- 7806 May, [facility] [place] [facility] [address] [id number] [place] [address]- 3905 May, [facility] [place] [facility] [address] [id number] [place] [address]- 7069 May, [facility] [place] [facility] [address] [id number] [place] [address]- 8387 May, [facility] [place] [facility] [address] [id number] [place] [address]- 9969 May, [facility] [place] [facility] [address] [id number] [place] [address] 1981 May, [facility] [place] [facility] [address] [id number] [place] [address]- 0912 May, [facility] [place] [facility] [address] [id number] [place] [address]- 6656 May, [facility] [place] [facility] [address] [id number] [place] [address]- 4439 May, [facility] [place] [facility] [address] [id number] [place] [address]- 8288 May, [facility] [place] [facility] [address] [id number] [place] [address]- 2729 Apr, [facility] [place] [facility] [address] [id number] [place] [address]- 4373 Apr, [facility] [address] [id number] [place] [address]- 0562 Mar, [facility] [place] [facility] [address] [id number] [place] [address]- 4402 Mar, [facility] [address] [id number] [place] [address]- 5766 Mar, [facility] [place] [facility] [address] [id number] [place] [address]- 6008 Mar, [facility] [address] [id number] [place] [address]- 0838 Mar, [facility] [place] [facility] [address] [id number] [place] [address]- 7858 Jan, [facility] [place] [facility] [address] [id number] [place] [address]- 9632 Jan, [facility] [address] [id number] [place] [address]- 7788 Jan, [facility] [place] [facility] [address] [id number] [place] [address]- 1756 Jan, [facility] [address] [id number] [place] [address]- 5209 Jan, [facility] [place] [facility] [address] [id number] [place] [address]- 2068 Jan, [facility] [place] [facility] [address] [id number] [place] [address]- 5092 Jan, [facility] [place] [facility] [address] [id number] [place] [address]- 3302 Jan, [facility] [place] [facility] [address] [id number] [place] [address]- 2646 Jan, [facility] [place] [facility] [address] [id number] [place] [address]- 0549 Jan, [facility] [address] [id number] [place] [address]- 0009 Dec, [facility] [place] [facility] [address] [id number] [place] [address] Oct, [facility] [place] [facility] [address] [id number] [place] [address]996 Oct, [facility] [place] [facility] [address] [id number] [place] [address]- 0038 Oct, [facility] [address] [id number] [place] [address]- 9258 Oct, [facility] [place] [facility] [address] [id number] [place] [address]- 6547 Oct, [facility] [place] [facility] [address] [id number] [place] [address]- 8559 Oct, [facility] [address] [id number] [place] [address]- 0105 Sep, [facility] [place] [facility] [address] [id number] [place] 9811 August, [facility] [place] [facility] [address] [id number] [place] [address]- 2473 August, [facility] [place] [facility] [address] [id number] [place] [address]- 4244 August, [facility] [place] [facility] [address] [id number] [place] [address]- 6422 August, [facility] [place] [facility] [address] [id number] [place] [address]- 3522 August, [facility] [place] [facility] [address] [id number] [place] [address]- 9466 May, [facility] [place] [facility] [address] [id number] [place] [address]- 8956 Apr, [facility] [place] [facility] [address] [id number] [address] 9086 Apr, [facility] [address] [id number] [place] [address]- 6543 Apr, [facility] [address] [id number] [place] [address]- 8949 Apr, [facility] [address] [id number] [place] [address]- 5499 Apr, [facility] [place] [address] [place] [id number] Mar, [facility] [address] [id number] [place] [address]- 9120 Mar, [facility] [address] [id number] [place] [address]- 1702 Mar, [facility] [address] [id number] [place] [address]- 5710 Mar, [facility] [address] [id number] [place] [address]- 0152 17 Mar, 2012 [facility] [address] [id number] [place] [address]- 2222 17 Mar, 2012 [facility] [address] [id number] [place] [address]- 8020 Mar, [facility] [address] [id number] [place] [address]- 9819 13 Mar, 2012 [facility] [address] [id number], [place] [address]- 7824 13 Mar, 2012 [facility] [address] [id number] [place] [address]- 7854 Mar, [facility] [address] [id number] [place] [address]- 0569 12 Mar, 2012 [facility] [address] [id number] [place] [address]- 0936 Mar, [facility] [address] [id number] [place] [address]- 8963 Mar, [facility] [address] [id number] [place] [address]- 5749 Mar, [facility] [place] [facility] [address] [id number] [place] [address]- 7849 Mar, [facility] [place] [facility] [address] [id number] [place] [address]- 6770 Mar, [facility] [place] [facility] [address] [id number] [place] [address]- 5320 Mar, [facility] [place] [facility] [address] [id number] [place] [address]- 1485 Mar, [facility] [place] [facility] [address] [id number] [place] [address]- 2953 Mar, [facility] [place] [facility] [address] [facility] [id number] [place] [address]- 7187 Mar, [facility] [place] [facility] [address] [id number] [place] [address]- 4327 Feb, [facility] [place] [facility] [address] [id number] [place] [address]- 9621 Feb, [facility] [place] [facility] [address] [facility] [id number] [place] [address]- 2109 Feb, [facility] [place] [facility] [address] [id number] [place] [address]- 0798 Feb, [facility] [place] [facility] [address] [id number] [place] [address]- 4125 Jan, [facility] [place] [facility] [address] [id number] [place] [address]- 8139 Jan, [facility] [place] [facility] [address] [facility] [id number] [place] [address]- 1412 Jan, [facility] [place] [facility] [address] [id number] [place] [address]- 2803 Jan, [facility] [place] [facility] [address] [id number] [place] [address]- 6882 29 Jan, 2012 [facility] [place] [facility] [address] [id number] [place] [address]- 8138 29 Jan, 2012 [facility] [place] [facility] [address] [id number] [place] [address]- 4327 Jan, [facility] [place] [facility] [address] [id number] [place] [address]- 3304 Jan, [facility] [place] [facility] [address] [id number] [place] [address]- 7619 10 Jan, 2012 [facility] [place] [facility] [address] [id number] [place] [address]- 2529 27 Dec, 2011 [facility] [place] [facility] [address] [id number] [place] [address]- 6495 14 Dec, 2011 [facility] [place] [facility] [address] [id number] [place] [address]- 3814 12 Dec, 2011 [facility] [place] [facility] [address] [id number] [place] [address]- 1720 06 Dec, 2011 [facility] [place] [facility] [address] [id number] [place] [address]- 6815 06 Dec, 2011 [facility] [place] [facility] [address] [id number] [place] [address]- 4015 Nov, [facility] [place] [facility] [address] [id number], [place] [address]- 7655 29 Nov, 2011 [facility] [place] [facility] [address] [id number] [place] [address]- 2099 23 Nov, 2011 [facility] [place] [facility] [address] [id number] [place] [address]- 2998 14 Nov, 2011 [facility] [place] [facility] [address] [id number] [place] [address]- 9157 13 Nov, 2011 [facility] [place] [facility] [address] [id number] [place] [address]- 7429 Nov, [facility] [place] [facility] [address] [id number] [place] [address]- 8667 Nov, [facility] [place] [facility] [address] [id number] [place] [address]19 Nov, [facility] [place] [facility] [address] [id number] [place] [address]- 7782 Nov, [facility] [place] [facility] [address] [id number] [place] [address]- 9158 Oct, [facility] [place] [facility] [address] [id number] [place] [address]- 6834 Oct, [facility] [place] [facility] [address] [id number] [place] [address]- 7452 Sep, [facility] [place] [facility] [address] [id number] [place] [address]- 1209 Sep, [facility] [place] [facility] [address] [id number] [place] [address]- 6340 Sep, [facility] [place] [facility] [address] [id number] [place] [address]- 7948 August, [facility] [place] [facility] [address] [id number] [place] [address]- 9843 30 Jul, 2011 [facility] [place] [facility] [address] [id number] [place] [address]- 6011 27 Jul, 2011 [facility] [place] [facility] [address] [id number] [place] [address]- 1416 27 Jul, 2011 [facility] [place] [facility] [address] [id number] [place] [address]- 7452 18 Jul, 2011 [facility] [place] [facility] [address] [id number] [place] [address]- 7794 16 Jul, 2011 [facility] [place] [facility] [address] [id number] [place] [address]- 9969 16 Jul, 2011 [facility] [place] [facility] [address] [id number] [place] [address]- 9168 16 Jul, 2011 [facility] [place] [facility] [address] [id number] [place] [address]- 7475 14 Jul, 2011 [facility] [place] [facility] [address] [id number] [place] [address]- 7386 12 Jul, 2011 [facility] [place] [facility] [address] [id number] [place] [address]- 8338 19 Jun, 2011 [facility] [place] [facility] [address] [id number] [place] [address]- 9497 18 Jun, 2011 [facility] [place] [facility] [address] [id number] [place] [address]- 5664 15 Jun, 2011 [facility] [place] [facility] [address] [id number] [place] [address]- 0527 12 Jun, 2011 [facility] [place] [facility] [address] [id number] [place] [address]- 8676 08 Jun, 2011 [facility] [place] [facility] [address] [id number] [place] [address]- 0608 08 Jun, 2011 [facility] [place] [facility] [address] [id number] [place] [address]- 0526 08 Jun, 2011 [facility] [place] [facility] [address] [id number] [place] [address]- 2540 08 Jun, 2011 [facility] [place] [facility] [address] [id number] [place] [address]- 8936 May, [facility] [place] [facility] [address] [id number] [place] [address]- 2229 May, [facility] [place] [facility] [address] [id number] [place] [address]- 0894 May, [facility] [place] [facility] [address] [id number] [place] [address]- 9466 Apr, [facility] [place] [facility] [address] [id number] [place] [address]- 1903 Apr, [facility] [address] [id number] [place] [address]- 5925 18 Apr, 2011 [facility] [address] [id number] [place] [address]- 6536 Mar, [facility] [address] [id number] [place] [address]- 9616 Mar, [facility] [place] [facility] [address] [id number] [place] [address]- 8688 15 Mar, 2011 [facility] [address] [id number] [place] [address]- 7558 Mar, [facility] [place] [facility] [address] [id number] [place] [address]- 2814 Mar, [facility] [place] [facility] [address] [id number] [place] [address]- 7871 Mar, [facility] [place] [facility] [address] [id number] [place] [address]- 3394 Mar, [facility] [place] [facility] [address] [id number] [place] [address]- 6711 Mar, [facility] [place] [facility] [address] [id number] [place] [address]- 0523 Mar, [facility] [place] [facility] [address] [id number], [place] [address]- 7523 Mar, [facility] [place] [facility] [address] [id number], [place] [address]- 9086 06 Mar, 2011 [facility] [place] [facility] [address] [id number] [place] [address]- 0772 Mar, [facility] [place] [facility] [address] [id number] [place] [address]- 3414 Mar, [facility] [place] [facility] [address] [id number] [place] 6935 05 Mar, 2011 [facility] [place] [facility] [address] [id number] [place] [address]- 1916 29 Feb, 2011 [facility] [place] [facility] [address] [id number] [place] [address]- 9484 22 Feb, 2011 [facility] [place] [facility] [address] [id number] [place] [address]- 3786 14 Feb, 2011 [facility] [place] [facility] [address] [id number] [place] [address]- 6609 29 Jan, 2011 [facility] [place] [facility] [address] [id number] [place] [address]- 2398 Jan, [facility] [place] [facility] [address] [id number] [place] [address]- 8121 Oct, [facility] [place] [facility] [address] [id number] [place] [address]- 4833 Sep, [facility] [place] [facility] [address] [id number] [place] [address]- 6199 Mar, [facility] [place] [facility] [address] [id number] [place] [address]- 5378 16 Mar, 2010 [facility] [place] [facility] [address] [id number] [place] [address]- 8915 16 Feb, 2010 [facility] [place] [facility] [address] [facility] [id number] [place] [address]- 4649 Feb, [facility] [place] [facility] [address] [id number] [place] [address]- 1752 27 Jan, 2010 [facility] [place] [facility] [address] [id number] [place] [address]- 8393 Jan, [facility] [place] [facility] [address] [id number] [place] [address]- 4272 07 Mar, 2009 [facility] [place] [facility] [address] [id number] [place] [address]- 8227 Feb, [facility] [place] [facility] [address] [id number] [place] [address]- 0961 Feb, [facility] [address] [facility] [id number], [place] [address]- 2546 Feb, [facility] [id number], [place] [address] 2546 Feb, [facility] [address] [id number], [place] [address]- 9883 Jan, [facility] [id number], [place] [address]- 5286 Dec, [facility] [address] [id number], [place] [address]- 2095 Nov, IMMUNIZATIONS No Known Immunizations SOCIAL HISTORY Never Assessed REASON FOR VISIT Order for [facility] PLAN OF CARE VITAL SIGNS MEDICATIONS Unknown Medications RESULTS No Results PROCEDURES No Known procedures INSTRUCTIONS MEDICATIONS ADMINISTERED No Known Medications MEDICAL (GENERAL) HISTORY Type Description Date Hospitalization History Located Within [facility] March 2015
--- OUTSIDE RECORDS SUMMARY | 2017-10-27 10:50 | XMS REPORT ---
Author Author JOLLY DELANEY [facility] Address [address] [place] [address] Care Team Providers Care Polisher Apprentice Name Role Phone JOLLY DELANEY Unavailable PROBLEMS Type Condition ICD9-CM Code DZU20-IU Code Onset Dates Condition Status SNOMED Code Problem Hyperlipidemia, unspecified hyperlipidemia type E78.5 Active 21421473 Problem Long-term insulin use Z79.4 Active 418645994 Problem Abnormal carotid ultrasound R93.8 Active 076443940 Problem Type 2 diabetes mellitus with complication E11.8 Active 89181008 Problem Positive TB test R76.11 Active 241303090 Problem Vascular dementia with behavior disturbance F01.51 Active 368897836 Problem PVD (peripheral vascular disease) I73.9 Active 090473651 Problem Pain R52 Active 55259592 Problem Other chronic osteomyelitis of left foot M86.672 Active 577538131 Problem Nicotine dependence, unspecified, uncomplicated F17.200 Active 236980177 Problem Peripheral vascular disease due to secondary diabetes E13.51 Active 8477522 Problem Nonintractable epilepsy without status epilepticus, unspecified epilepsy type G40.909 Active 217637450 Problem Recurrent major depressive disorder, remission status unspecified F33.9 Active 63304673 Problem Anxiety F41.9 Active 41771955 Problem Generalized anxiety disorder F41.1 Active 50173118 Problem Vascular dementia F01.50 Active 345157798 Problem Pseudobulbar affect F48.2 Active 89471991 Problem Coronary artery 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 Active 3653366144843 Problem Gastroesophageal reflux disease without esophagitis K21.9 Active 433040055 Problem Cerebrovascular accident (CVA) due to other mechanism I63.8 Active 042161089 Problem Pulmonary emphysema, unspecified emphysema type J43.9 Active 62242892 Problem Neuropathy G62.9 Active 651918178 Problem Depression F32.9 Active 56749465 Problem Essential hypertension I10 Active 84291496 Problem Acquired hypothyroidism E03.9 Active 669811809 ALLERGIES No Information ENCOUNTERS Encounter Location Date Diagnosis [facility] [address] [place] [id number] Jul, [facility] [place] [address], [place] [address] Jul, Generalized anxiety disorder F41.1 [facility] [address] [id number] [id number] Jun, Generalized anxiety disorder F41.1 [facility] [id number] [place] [address] [id number] Jun, [facility] [id number] [place] [address] [id number] May, [facility], [place] [address] [address] 97[address] May, [facility] [id number] [place] [address] [id number] May, Generalized anxiety disorder F41.1 [facility], [place] [address] [address] Apr, [facility] [address] [place] [id number] Apr, Other chronic osteomyelitis of left foot M86.672 ; Type 2 diabetes mellitus with complication E11.8 ; Vascular dementia F01.50 ; Long-term insulin use Z79.4 ; PVD (peripheral vascular disease) I73.9 and Nicotine abuse 305.1 [facility], [place] [address], [place] [address] Apr, [facility] [id number] [id number] Apr, [facility], [place] [address], [place] [address] 7[address] Apr, Pain R52 and Generalized anxiety disorder F41.1 [facility], [place] [address] [address] Mar, [facility], [place] [id number] [place] [address] 77665- 3678 Mar, Pain R52 and Generalized anxiety disorder F41.1 [facility] [address] [place] [id number] Feb, Depression F32.9 ; Type 2 diabetes mellitus with complication E11.8 and Nicotine dependence, unspecified, uncomplicated F17.200 [facility], [place] [id number] [place] [address] 94491- 4840 Feb, Generalized anxiety disorder F41.1 and Pain R52 [facility], [place] [id number] [place] [address] 04693- 8819 Feb, [facility], [place] [address] [address] 1699 Jan, [facility], [place] [id number] [place] [address] 37783- 1525 Jan, Generalized anxiety disorder F41.1 and Pain R52 [facility], [place] [id number] [place] [address] 30922- 7365 Jan, [facility] [id number] [place] [address] [id number] Dec, Generalized anxiety disorder F41.1 and Pain R52 [facility] [address] [place] [id number] Dec, Vascular dementia F01.50 ; Pain of left leg M79.605 ; Pain in right leg M79.604 and Type 2 diabetes mellitus with complication E11.8 [facility], [place] [id number] [place] [address] 91576- 9731 Dec, Pain R52 [facility], [place] [id number] [place] [address] 79475- 3984 Dec, [facility], [place] [id number] [place] [address] 63677- 3499 Nov, [facility], [place] [id number] [place] [address] 24964- 0320 Nov, Pain R52 and Generalized anxiety disorder F41.1 [facility] [address] [place] [id number] Nov, Depression F32.9 ; Vascular dementia with behavior disturbance F01.51 and Anxiety F41.9 [facility], [place] [id number] [place] [address] 33728- 1466 Nov, Pain R52 and Generalized anxiety disorder F41.1 [facility], [place] [id number] [place] [address] 05917- 1298 Oct, Generalized anxiety disorder F41.1 [facility], [place] [id number] [place] [address] 69908- 3967 Oct, Pain R52 [facility], [place] [id number] [place] [address] 35512- 0660 Sep, [facility] [address] [place] [id number] Sep, Generalized anxiety disorder F41.1 [facility], [place] [id number] [place] [address] 75737- 6481 Sep, Pain R52 [facility], [place] [id number] [place] [address] 82167- 6816 Sep, Generalized anxiety disorder F41.1 [facility], [place] [address], [place] [address] 6[address] August, [facility], [place] [address], [place] [address] 9317 August, [facility], [place] [id number] [place] [address] 64706- 8008 August, Pain R52 [facility], [place] [address] [place] [address] 71255- 5726 August, Generalized anxiety disorder F41.1 [facility] [id number] [place] [address] [id number] August, Generalized anxiety disorder F41.1 [facility], [place] [id number] [place] [address] 75212- 6164 Jul, Pain R52 [facility], [place] [address] [place] [address] 33675- 1466 Jul, [facility] [address] [id number] Jul, [facility], [place] [id number] [place] [address] 37635- 7443 Jun, [facility] [address] [id number] Jun, Depression F32.9 [facility], [place] [id number] [place] [address] 82217- 9151 Jun, Pain R52 [facility], [place] [id number] [place] [address] 12261- 6751 Jun, [facility] [address] [place] [id number] Jun, Vascular dementia F01.50 and Depression F32.9 [facility], [place] [id number] [place] [address] 52519- 8337 May, Pain R52 [facility], [place] [id number] [place] [address] 25754- 5480 May, [facility], [place] [id number] [place] [address] 37635- 0406 May, Pseudobulbar affect F48.2 [facility], [place] [id number] [place] [address] 94969- 6394 May, [facility], [place] [id number] [place] [address] 33378- 4219 May, PVD (peripheral vascular disease) I73.9 [facility], [place] [id number] [place] [address] 17550- 6386 May, Vascular dementia with behavior disturbance F01.51 [facility], [place] [id number] [place] [address] 95050- 8128 May, Vascular dementia with behavior disturbance F01.51 [facility], [place] [address] [place] [address] 44833- 3356 Apr, [facility], [place] [id number] [place] [address] 25918- 5738 Apr, Pain R52 [facility] [address] [place] [id number] Apr, Generalized anxiety disorder F41.1 ; PVD (peripheral vascular disease) I73.9 and Type 2 diabetes mellitus with complication E11.8 [facility], [place] [id number] [place] [address] 81960- 8493 Apr, Vascular dementia with behavior disturbance F01.51 [facility], [place] [id number] [place] [address] 59310- 6757 Apr, [facility], [place] [id number] [place] [address] 02161- 8951 Apr, Vascular dementia with behavior disturbance F01.51 [facility], [place] [id number] [place] [address] 38634- 3945 Apr, [facility] [address] [id number] Mar, [facility], [place] [id number] [place] [address] 85554- 7387 Mar, Type 2 diabetes mellitus with complication E11.8 ; Vascular dementia with behavior disturbance F01.51 and Depression F32.9 [facility], [place] [address] [place] [address] 68736- 4937 Mar, [facility], [place] [id number] [place] [address] 79846- 1863 Feb, [facility], [place] [id number] [place] [address] 67944- 3063 Feb, Viral illness B34.9 [facility], [place] [id number] [place] [address] 58479- 1026 Jan, Diabetes [address] [facility] [id number] [address] 2546 Jan, [facility], [place] [address] [facility] [id number], [place] [address]- 6016 Jan, [facility], [place] [address] [facility] [id number], [place] [address] 2546 Jan, [facility] [address] [place] [id number] Jan, Vascular dementia with behavior disturbance F01.51 and Type 2 diabetes mellitus with complication E11.8 [facility], [place] [address] [facility] [id number] [place] [address]- 4766 Jan, Pain R52 [facility], [place] [address] [facility] [id number], [place] [address]- 3466 Jan, Pain R52 [facility], [place] [address], [place] [address]- 4766 Dec, [facility], [place] [address] [facility] [id number], [place] [address]- 7381 Nov, [facility] [address] [place] [id number] Nov, Type 2 diabetes mellitus with complication E11.8 [facility], [place] [address] [facility] [id number], [place] [address]- 3076 Nov, [facility], [place] [address] [facility] [id number], [place] [address]- 9427 Oct, [facility], [place] [address] [facility] [id number], [place] [address]- 7843 Oct, [facility], [place] [address] [facility] [id number], [place] [address]- 7372 Oct, Vascular dementia with behavior disturbance F01.51 and Type 2 diabetes mellitus with complication E11.8 [facility], [place] [address] [facility] [id number], [place] [address]- 1913 August, Type 2 diabetes mellitus with complication E11.8 and Vascular dementia with behavior disturbance F01.51 [facility], [place] [address], [place] [address]- 4442 August, Vascular dementia F01.50 [facility], [place] [address] [place] [address] 67304- 7116 August, Vascular dementia with behavior disturbance F01.51 [facility], [place] [address], [place] [address]- 5505 Jul, Vascular dementia with behavior disturbance F01.51 [facility], [place] [address], [place] [address]- 7281 Jun, Vascular dementia F01.50 [address] [place] [address] 40123- 4912 Jun, Type 2 diabetes mellitus with complication E11.8 ; Long- term insulin use Z79.4 and Vascular dementia with behavior disturbance F01.51 [address] [place] [address] 28579- 0853 Jun, Vascular dementia with behavior disturbance F01.51 [facility], [place] [address], [place] [address]- 5215 Jun, Vascular dementia F01.50 [facility], [place] [address], [place] [address]- 7333 Apr, [address], [place] [address]- 8029 Apr, [address], [place] [address]- 1608 Apr, [address], [place] [address]- 7033 Apr, Type 2 diabetes mellitus with complication E11.8 ; Depression F32.9 and Long-term insulin use Z79.4 [facility], [place] [id number], [place] [address]- 9348 Mar, [facility] [address] [place] [id number] Mar, Depression F32.9 ; Type 2 diabetes mellitus with complication E11.8 and Long-term insulin use Z79.4 [facility], [place] [address] [place] [address] 83499- 3496 Feb, [facility], [place] [id number] [place] [address] 69577- 2176 Feb, Hyperthyroidism E05.90 [facility], [place] [id number] [place] [address] 71414- 7066 Feb, Hyperthyroidism E05.90 [facility], [place] [id number] [place] [address] 97623- 8316 Feb, [facility], [place] [id number] [place] [address] 25516- 5606 Jan, [facility], [place] [id number] [place] [address] 91368- 6367 Dec, Nicotine addiction 305.1 [facility], [place] [id number] [place] [address] 04779- 4657 Oct, Nicotine abuse 305.1 [facility], [place] [id number] [place] [address] 04713- 1365 Oct, [facility], [place] [address] [place] [address] 35943- 4025 August, [facility] [address] [place] [id number] August, History of drug abuse 305.93 and Diabetes 250.00 [facility], [place] [address], [place] [address]- 4853 Jul, [facility], [place] [id number] [place] [address] 52578- 1540 Jul, [facility], [place] [id number] [place] [address] 39030- 5942 Jun, [facility], [place] [id number] [place] [address] 42061- 5056 Jun, [facility] [address] [id number] [place] [address]- 1908 Jun, [facility] [place] [facility] [address] [id number] [place] [address]- 1352 Jun, [facility] [place] [facility] [address] [id number] [place] [address]- 0289 Jun, [facility] [place] [facility] [address] [id number] [place] [address]- 6911 Jun, [facility] [address] [id number] [place] [address]- 8512 May, [facility] [place] [facility] [address] [id number] [place] [address]- 0796 May, [facility] [address] [facility] [id number] [place] [address]- 4404 May, [facility] [address] [id number] [place] [address]- 6945 May, [facility] [address] [id number] [place] [address]- 9344 May, [facility] [place] [facility] [address] [facility] [id number], [place] [address]- 1450 Apr, [facility] [address] [facility] [id number], [place] [address]- 5979 Apr, [address] [place] [id number] Apr, [facility] [place] [facility] [address] [id number], [place] [address]- 6251 Apr, [facility] [place] [facility] [address] [id number], [place] [address]- 6971 Apr, [facility] [place] [facility] [address] [facility] [id number], [place] [address]- 5558 Apr, [facility] [place] [facility] [address] [facility] [id number], [place] [address]- 7973 Apr, [facility] [address] [id number] [place] [address]- 6702 Apr, [facility] [address] [id number] [place] [address]- 9517 Mar, [facility] [address] [id number] [place] [address]- 0383 Mar, [facility] [address] [id number] [place] [address]- 9476 Mar, [facility] [address] [id number] [place] [address]- 1994 Mar, [facility] [address] [id number] [place] [address]- 1304 Mar, [facility] [address] [id number], [place] [address]- 7383 Mar, [facility] [address] [id number] [place] [address]- 8586 Mar, [facility] [address] [id number] [place] [address]- 1199 Mar, [facility] [address] [facility] [id number], [place] [address]- 8239 Feb, [facility] [address] [id number], [place] [address]- 1545 Feb, [facility] [address] [id number], [place] [address]- 1240 Feb, [facility] [address] [id number], [place] [address]- 0389 Feb, [facility] [address] [facility] [id number], [place] [address]- 0695 Feb, [address] [place] [id number] Feb, [facility] [address] [id number] [place] [address]- 2185 04 Feb, 2014 [facility] [place] [facility] [address] [id number] [place] [address]- 2474 Feb, [facility] [place] [facility] [address] [id number] [place] [address]- 8195 Feb, [facility] [place] [facility] [address] [id number] [place] 9805 Feb, [facility] [place] [facility] [address] [id number] [place] [address]- 1788 Jan, [facility] [place] [facility] [address] [id number] [place] [address]- 8204 30 Jan, 2014 [facility] [place] [facility] [address] [id number] [place] [address]- 9480 Jan, [facility] [place] [facility] [address] [id number] [place] [address]- 7046 17 Jan, 2014 [facility] [place] [facility] [address] [id number] [place] [address]- 8591 16 Jan, 2014 [facility] [place] [facility] [address] [id number] [place] [address]- 8378 16 Jan, 2014 [facility] [place] [facility] [address] [id number] [place] [address] 15 Jan, 2014 [facility] [place] [facility] [address] [id number] [place] [address] 13 Jan, 2014 [facility] [place] [facility] [address] [id number] [place] [address] 13 Jan, 2014 [facility] [place] [facility] [address] [id number] [place] [address] Jan, [facility] [place] [facility] [address] [id number] [place] [address] Jan, [facility] [place] [facility] [address] [id number] [place] [address] 09 Jan, 2014 [facility] [place] [facility] [address] [id number] [place] [address] Jan, 2013 [facility] [place] [facility] [address] [id number] [place] [address] Jan, 2013 [facility] [place] [facility] [address] [id number] [place] [address] Jan, 2013 [facility] [place] [facility] [address] [id number] [place] [address] Jan, 2013 [facility] [place] [facility] [address] [id number] [place] [address] Jan, 2013 [facility] [place] [facility] [address] [id number] [place] [address] Dec, 2013 [facility] [place] [facility] [address] [id number] [place] [address] Sep, 2013 [facility] [place] [facility] [address] [id number] [place] [address]- [address] Dec, 2013 [facility] [place] [facility] [address] [id number] [place] [address] 11 Dec, 2013 [facility] [place] [facility] [address] [id number] [place] [address] 18[address] Sep, 2013 [facility] [place] [facility] [address] [id number] [place] [address] Sep, 2013 [facility] [place] [facility] [address] [id number], [place] [address] 08 Sep, 2013 [facility] [place] [facility] [address] [id number] [place] [address] 08 Sep, 2013 [facility] [place] [facility] [address] [id number] [place] [address] 08 Sep, 2013 [facility] [place] [facility] [address] [id number] [place] [address] 6206 08 Sep, 2013 [facility] [place] [facility] [address] [id number] [place] [address] Dec, [facility] [place] [facility] [address] [id number] [place] [address]64 Dec, [facility] [place] [facility] [address] [id number] [place] [address]183 Dec, [facility] [place] [facility] [address] [id number] [place] [address] Dec, [facility] [place] [facility] [address] [id number] [place] [address] Nov, [facility] [place] [facility] [address] [id number] [place] [address] 3583 Nov, [facility] [place] [facility] [address] [id number] [place] [address] 9[address] Nov, [facility] [place] [facility] [address] [id number] [place] [address] 0661 Nov, [facility] [place] [facility] [address] [id number] [place] [address] Nov, [facility] [place] [facility] [address] [id number] [place] [address] Nov, [facility] [place] [facility] [address] [id number] [place] [address] 2271 Nov, [facility] [place] [facility] [address] [id number] [place] [address] 8628 Nov, [facility] [place] [facility] [address] [id number] [place] [address] 7060 Nov, [facility] [place] [facility] [address] [id number] [place] [address] 1119 Nov, [facility] [place] [facility] [address] [id number] [place] [address] 6880 Nov, [facility] [place] [facility] [address] [id number] [place] [address] 1935 Nov, [facility] [place] [facility] [address] [id number] [place] [address] 6[address] Nov, [facility] [place] [facility] [address] [id number] [place] [address]- 7089 Nov, [facility] [place] [facility] [address] [id number] [place] [address] 3536 Oct, [facility] [place] [facility] [address] [id number] [place] [address] 8716 Oct, [facility] [place] [facility] [address] [id number] [place] [address]- 6610 Oct, [facility] [place] [facility] [address] [id number] [place] [address]- 4748 Oct, [facility] [place] [facility] [address] [id number] [place] [address]- 5724 Oct, [facility] [place] [facility] [address] [id number] [place] [address]- 9439 Oct, [facility] [place] [facility] [address] [id number] [place] [address]- 5588 Oct, [facility] [place] [facility] [address] [id number] [place] [address]- 7235 Oct, [facility] [place] [facility] [address] [id number] [place] [address]- 1014 Oct, [facility] [place] [facility] [address] [id number] [place] [address]- 3921 Oct, [facility] [place] [facility] [address] [id number] [place] [address]- 3075 Oct, [facility] [place] [facility] [address] [id number] [place] [address]- 2183 Oct, [facility] [place] [facility] [address] [id number] [place] [address]- 6066 Oct, [facility] [place] [facility] [address] [id number] [place] [address]- 8477 Oct, [facility] [place] [facility] [address] [id number] [place] [address]- 0210 Oct, [facility] [place] [facility] [address] [id number] [place] [address]- 9874 Oct, [facility] [place] [facility] [address] [id number] [place] [address]- 8974 Oct, [facility] [place] [facility] [address] [id number] [place] [address]- 6544 Oct, [facility] [place] [facility] [address] [id number] [place] [address]- 4993 Oct, [facility] [place] [facility] [address] [id number] [place] [address]- 8940 Oct, [facility] [place] [facility] [address] [id number] [place] [address]- 9399 Sep, [facility] [place] [facility] [address] [id number] [place] [address]- 8830 Sep, [facility] [place] [facility] [address] [id number] [place] [address]- 6269 Sep, [facility] [place] [facility] [address] [id number] [place] [address]- 5244 Sep, [facility] [place] [facility] [address] [id number] [place] [address]- 1302 Sep, [facility] [place] [facility] [address] [id number] [place] [address]- 5485 Sep, [facility] [place] [facility] [address] [id number] [place] [address]- 0771 August, [facility] [place] [facility] [address] [id number] [place] [address]- 6957 August, [facility] [place] [facility] [address] [id number] [place] [address]- 5625 Jul, [facility] [place] [facility] [address] [id number] [place] [address]- 8146 30 Jul, 2013 [facility] [place] [facility] [address] [id number] [place] [address]- 8874 Jul, [facility] [place] [facility] [address] [id number] [place] [address]- 6936 Jul, [facility] [place] [facility] [address] [id number] [place] [address]- 4125 Jul, [facility] [place] [facility] [address] [id number] [place] [address]- 7183 Jul, [facility] [place] [facility] [address] [id number] [place] [address] Jul, [facility] [place] [facility] [address] [id number] [place] [address]- 7062 Jul, [facility] [place] [facility] [address] [id number] [place] [address]- 5722 Jun, [facility] [place] [facility] [address] [id number] [place] [address]- 2142 Jun, [facility] [place] [facility] [address] [id number] [place] [address]- 2234 Jun, [facility] [place] [facility] [address] [id number] [place] [address]- 1686 Jun, [facility] [place] [facility] [address] [id number] [place] [address]- 9390 Jun, [facility] [place] [facility] [address] [id number] [place] [address]- 8496 May, [facility] [place] [facility] [address] [id number] [place] [address]- 3199 May, [facility] [place] [facility] [address] [id number] [place] [address]- 9525 May, [facility] [place] [facility] [address] [id number] [place] [address]- 6664 May, [facility] [place] [facility] [address] [id number] [place] [address]- 9966 May, [facility] [place] [facility] [address] [id number] [place] [address]- 3036 May, [facility] [place] [facility] [address] [id number] [place] [address]- 4626 May, [facility] [place] [facility] [address] [id number] [place] [address]- 7681 May, [facility] [place] [facility] [address] [id number] [place] [address]- 0438 May, [facility] [place] [facility] [address] [id number] [place] [address]- 0976 May, [facility] [place] [facility] [address] [facility] [id number] [place] [address]- 1874 May, [facility] [place] [facility] [address] [id number] [place] [address]- 0411 Apr, [facility] [place] [facility] [address] [id number] [place] [address]- 7153 Apr, [facility] [place] [facility] [address] [facility] [id number] [place] [address]- 7849 Mar, [facility] [place] [facility] [address] [id number], [place] [address]- 6767 Mar, [facility] [place] [facility] [address] [id number], [place] [address]- 2542 Mar, [facility] [place] [facility] [address] [id number] [place] [address]- 0096 Mar, [facility] [place] [facility] [address] [id number] [place] [address]- 5548 Mar, [facility] [place] [facility] [address] [facility] [id number] [place] [address]- 8042 Jan, [facility] [place] [facility] [address] [id number] [place] [address]- 6861 Jan, [facility] [place] [facility] [address] [id number] [place] [address]- 5511 Jan, [facility] [place] [facility] [address] [id number] [place] [address]- 0198 Jan, [facility] [place] [facility] [address] [id number] [place] [address]- 6513 Jan, [facility] [place] [facility] [address] [id number] [place] [address]- 4272 Jan, [facility] [place] [facility] [address] [id number] [place] [address] Jan, [facility] [place] [facility] [address] [id number] [place] [address]- 0291 Jan, [facility] [place] [facility] [address] [id number] [place] [address]- 4608 Jan, [facility] [place] [facility] [address] [id number] [place] [address]- 2165 Jan, [facility] [place] [facility] [address] [id number] [place] [address]- 5717 Dec, [facility] [place] [facility] [address] [id number] [place] [address]- 5391 Oct, [facility] [place] [facility] [address] [id number] [place] [address]- 1519 Oct, [facility] [place] [facility] [address] [id number] [place] [address]- 4362 Oct, [facility] [place] [facility] [address] [id number] [place] [address]- 1093 Oct, [facility] [place] [facility] [address] [id number] [place] [address]- 1461 Oct, [facility] [place] [facility] [address] [id number] [place] [address]- 5005 Oct, [facility] [address] [id number] [place] [address] 4369 Sep, [facility] [address] [id number] [place] [address]- 7396 August, [facility] [address] [id number] [place] [address] 5086 August, [facility] [address] [id number] [place] [address] 9266 August, [facility] [address] [id number] [place] [address] 1785 August, [facility] [address] [id number] [place] [address] 2476 August, [facility] [address] [id number] [place] [address] 2546 May, [facility] [address] [id number] [place] [address] 9756 Apr, [facility] [address] [id number] [place] [address]- 0302 Apr, [facility] [address] [id number] [place] [address] 4616 Apr, [facility] [address] [id number] [place] [address]- 2546 Apr, [facility] [address] [id number] [place] [address]- 2546 Apr, [facility] [address] [place] [id number] Mar, [facility] [address] [id number] [place] [address]- [address], [facility] [address] [id number] [place] [address]- 2546 Mar, [facility] [address] [id number] [place] [address]- 5469 Mar, [facility] [place] [facility] [address] [id number] [place] [address]- 1364 17 Mar, 2012 [facility] [place] [facility] [address] [id number] [place] [address]- 8066 17 Mar, 2012 [facility] [place] [facility] [address] [id number] [place] [address]- 2653 13 Mar, 2012 [facility] [place] [facility] [address] [id number] [place] [address]- 9390 13 Mar, 2012 [facility] [place] [facility] [address] [id number] [place] [address]- 3416 13 Mar, 2012 [facility] [place] [facility] [address] [id number] [place] [address]- 2049 13 Mar, 2012 [facility] [place] [facility] [address] [id number] [place] [address]- 8728 12 Mar, 2012 [facility] [place] [facility] [address] [id number] [place] [address]- 8093 12 Mar, 2012 [facility] [place] [facility] [address] [id number] [place] [address]- 1313 10 Mar, 2012 [facility] [place] [facility] [address] [id number] [place] [address]- 4812 10 Mar, 2012 [facility] [place] [facility] [address] [id number] [place] [address]- 0844 07 Mar, 2012 [facility] [place] [facility] [address] [id number], [place] [address]- 6526 07 Mar, 2012 [facility] [place] [facility] [address] [id number] [place] [address]- 5045 Mar, [facility] [place] [facility] [address] [id number] [place] [address]- 0912 06 Mar, 2012 [facility] [place] [facility] [address] [id number] [place] [address]- 1060 05 Mar, 2012 [facility] [place] [facility] [address] [id number] [place] [address]- 0694 Mar, [facility] [place] [facility] [address] [id number] [place] [address]- 1417 Feb, [facility] [place] [facility] [address] [id number] [place] [address]- 1149 Feb, [facility] [place] [facility] [address] [facility] [id number] [place] [address]- 9579 Feb, [facility] [place] [facility] [address] [id number] [place] [address]- 5292 Feb, [facility] [place] [facility] [address] [id number] [place] [address]- 6080 Jan, [facility] [place] [facility] [address] [id number] [place] [address]- 8870 Jan, [facility] [place] [facility] [address] [facility] [id number] [place] [address]- 5157 Jan, [facility] [place] [facility] [address] [id number] [place] [address]- 0177 Jan, [facility] [place] [facility] [address] [id number] [place] [address]- 0389 Jan, [facility] [place] [facility] [address] [facility] [id number] [place] [address]- 9456 Jan, [facility] [place] [facility] [address] [facility] [id number] [place] [address]- 7768 Jan, [facility] [place] [facility] [address] [facility] [id number], [place] [address]- 2014 Jan, [facility] [place] [facility] [address] [id number] [place] [address]- 0444 10 Jan, 2012 [facility] [place] [facility] [address] [facility] [id number] [place] [address]- 2592 27 Dec, 2011 [facility] [place] [facility] [address] [facility] [id number] [place] [address]- 4509 14 Dec, 2011 [facility] [place] [facility] [address] [id number] [place] [address]- 5610 12 Dec, 2011 [facility] [place] [facility] [address] [id number] [place] [address]- 4186 Dec, [facility] [place] [facility] [address] [id number] [place] [address]- 7726 Dec, [facility] [place] [facility] [address] [id number] [place] [address]- 0766 Nov, [facility] [place] [facility] [address] [id number] [place] [address]- 2752 Nov, [facility] [place] [facility] [address] [id number] [place] [address]- 6706 Nov, [facility] [place] [facility] [address] [id number] [place] [address]- 9919 Nov, [facility] [place] [facility] [address] [id number] [place] [address]- 5297 Nov, [facility] [place] [facility] [address] [id number] [place] [address]- 9324 Nov, [facility] [place] [facility] [address] [id number] [place] [address]- 2584 Nov, [facility] [place] [facility] [address] [id number] [place] [address]- 9019 Nov, [facility] [place] [facility] [address] [id number] [place] [address]- 7997 Nov, [facility] [place] [facility] [address] [id number] [place] [address]- 4650 Oct, [facility] [place] [facility] [address] [id number] [place] [address]- 7953 Oct, [facility] [place] [facility] [address] [id number] [place] [address]- 3644 Sep, [facility] [place] [facility] [address] [id number] [place] [address]- 5255 13 Sep, 2011 [facility] [place] [facility] [address] [id number] [place] [address]- 3531 05 Sep, 2011 [facility] [place] [facility] [address] [id number] [place] [address]- 6603 14 Aug, 2011 [facility] [place] [facility] [address] [id number] [place] [address]- 2838 30 Jul, 2011 [facility] [place] [facility] [address] [id number] [place] [address]- 8761 27 Jul, 2011 [facility] [place] [facility] [address] [id number] [place] [address]- 8520 27 Jul, 2011 [facility] [place] [facility] [address] [id number] [place] [address]- 8452 18 Jul, 2011 [facility] [place] [facility] [address] [id number] [place] [address]- 6509 16 Jul, 2011 [facility] [place] [facility] [address] [id number] [place] [address]- 3937 16 Jul, 2011 [facility] [place] [facility] [address] [id number] [place] [address]- 6644 16 Jul, 2011 [facility] [place] [facility] [address] [id number] [place] [address]- 3088 14 Jul, 2011 [facility] [place] [facility] [address] [id number] [place] [address]- 8698 12 Jul, 2011 [facility] [place] [facility] [address] [id number], [place] [address]- 2250 19 Jun, 2011 [facility] [place] [facility] [address] [id number] [place] [address]- 0389 18 Jun, 2011 [facility] [place] [facility] [address] [id number] [place] [address]- 6283 15 Jun, 2011 [facility] [place] [facility] [address] [id number] [place] [address]- 5652 12 Jun, 2011 [facility] [place] [facility] [address] [id number] [place] [address]- 9384 08 Jun, 2011 [facility] [place] [facility] [address] [id number] [place] [address]- 5226 Jun, [facility] [place] [facility] [address] [id number] [place] [address] 2546 Jun, [facility] [place] [facility] [address] [id number] [place] [address]- 9316 Jun, [facility] [place] [facility] [address] [id number] [place] [address]- 3581 May, [facility] [place] [facility] [address] [id number] [place] [address]- 4986 May, [facility] [place] [facility] [facility] [address] [id number] [place] [address]- 5536 May, [facility] [address] [id number] [place] [address]- 6542 Apr, [facility] [address] [id number] [place] [address]- 2835 Apr, [facility] [place] [facility] [address] [id number] [place] [address]- 1815 Apr, [facility] [address] [id number] [place] [address]- 0582 Mar, [facility] [address] [id number] [place] [address] 2546 Mar, [facility] [address] [id number] [place] [address]- 2546 15 Mar, 2011 [facility] [place] [facility] [address] [id number] [place] [address]- 1556 13 Mar, 2011 [facility] [place] [facility] [address] [id number] [place] [address]- 2546 13 Mar, 2011 [facility] [place] [facility] [address] [id number] [place] [address]27 Mar, [facility] [place] [facility] [address] [id number] [place] [address]- 8859 Mar, [facility] [place] [facility] [address] [id number] [place] [address]- 3123 Mar, [facility] [place] [facility] [address] [id number] [place] 6876 Mar, [facility] [place] [facility] [address] [id number] [place] [address]- 8613 Mar, [facility] [place] [facility] [address] [id number] [place] 7024 Mar, [facility] [place] [facility] [address] [id number] [place] [address]- 6173 Mar, [facility] [place] [facility] [address] [id number] [place] [address]- 2187 Mar, [facility] [place] [facility] [address] [id number] [place] [address]- 5320 Mar, [facility] [place] [facility] [address] [id number] [place] [address]- 0569 Feb, [facility] [place] [facility] [address] [id number] [place] [address]- 7840 Feb, [facility] [place] [facility] [address] [id number] [place] [address]- 0748 Feb, [facility] [place] [facility] [address] [id number], [place] [address]- 1119 Jan, [facility] [place] [facility] [address] [id number] [place] [address]- 2225 Jan, [facility] [place] [facility] [address] [id number] [place] [address]- 9746 Oct, [facility] [place] [facility] [address] [id number] [place] [address] Sep, [facility] [place] [facility] [address] [id number], [place] [address] Mar, [facility], [place] [address] [facility] [id number] [address] Mar, [facility], [place] [id number], [place] [address] Feb, [facility], [place] [id number], [place] [address] Feb, [facility], [place] [id number], [place] [address] Jan, [facility], [place] [id number] [place] [address] Jan, [facility], [place] [id number], [place] [address] Mar, [facility], [place] [id number], [place] [address] Feb, [facility], [place] [id number], [place] [address] Feb, [facility], [place] [id number] [address] Feb, [facility], [place] [id number], [place] [address] Feb, [facility], [place] [id number], [place] [address] Jan, [facility], [place] [id number], [place] [address] Dec, [facility], [place] [id number] [address] Nov, IMMUNIZATIONS No Known Immunizations SOCIAL HISTORY Never Assessed REASON FOR VISIT PLAN OF CARE VITAL SIGNS MEDICATIONS Unknown Medications RESULTS No Results PROCEDURES No Known procedures INSTRUCTIONS MEDICATIONS ADMINISTERED No Known Medications MEDICAL (GENERAL) HISTORY Type Description Date Hospitalization History [facility] March 2015
--- OUTSIDE RECORDS SUMMARY | 2017-10-27 10:50 | XMS REPORT ---
Author Author JAROD DELANEY [facility] Address [address] [place] [address] Care Team Providers Care Occup Ther Name Role Phone JAROD DELANEY Unavailable PROBLEMS Type Condition ICD9-CM Code UQN99-HP Code Onset Dates Condition Status SNOMED Code Problem Hyperlipidemia, unspecified hyperlipidemia type E78.5 Active 49064718 Problem Long-term insulin use Z79.4 Active 767596678 Problem Abnormal carotid ultrasound R93.8 Active 230788601 Problem Type 2 diabetes mellitus with complication E11.8 Active 50265058 Problem Positive TB test R76.11 Active 978822331 Problem Vascular dementia with behavior disturbance F01.51 Active 366318029 Problem PVD (peripheral vascular disease) I73.9 Active 741556339 Problem Pain R52 Active 55500861 Problem Other chronic osteomyelitis of left foot M86.672 Active 528885207 Problem Nicotine dependence, unspecified, uncomplicated F17.200 Active 965608576 Problem Peripheral vascular disease due to secondary diabetes E13.51 Active 0887084 Problem Nonintractable epilepsy without status epilepticus, unspecified epilepsy type G40.909 Active 152680542 Problem Recurrent major depressive disorder, remission status unspecified F33.9 Active 43734809 Problem Anxiety F41.9 Active 30453378 Problem Generalized anxiety disorder F41.1 Active 78497215 Problem Vascular dementia F01.50 Active 110898538 Problem Pseudobulbar affect F48.2 Active 33695759 Problem Coronary artery disease involving [place] coronary artery of [place] heart without angina pectoris I25.10 Active 7349698254675 Problem Gastroesophageal reflux disease without esophagitis K21.9 Active 046875617 Problem Cerebrovascular accident (CVA) due to other mechanism I63.8 Active 995123888 Problem Pulmonary emphysema, unspecified emphysema type J43.9 Active 54660059 Problem Neuropathy G62.9 Active 943473637 Problem Depression F32.9 Active 52254534 Problem Essential hypertension I10 Active 34163777 Problem Acquired hypothyroidism E03.9 Active 449185232 ALLERGIES No Information ENCOUNTERS Encounter Location Date Diagnosis [facility] [id number] [id number] Jun, Generalized anxiety disorder F41.1 [facility] [id number] [id number] Jun, [facility] [id number] [place] [address] [id number] May, [facility] [place] [id number] [place] [address] 81253- 3316 May, [place] [id number] [place] [address] [id number] May, Generalized anxiety disorder F41.1 [place] [address] [address] Apr, [facility] [address] [place] [id number] Apr, Other chronic osteomyelitis of left foot M86.672 ; Type 2 diabetes mellitus with complication E11.8 ; Vascular dementia F01.50 ; Long-term insulin use Z79.4 ; PVD (peripheral vascular disease) I73.9 and Nicotine abuse 305.1 [facility] [place] [address] [id number] [address] Apr, [facility] [id number] [id number] Apr, [facility] [place] [address] [id number] [address] 1989 Apr, Pain R52 and Generalized anxiety disorder F41.1 [facility] [place] [address] [id number] [address] 8640 Mar, [place] [id number] [place] [address] [id number]- 6027 Mar, Pain R52 and Generalized anxiety disorder F41.1 [facility] [address] [place] [id number] Feb, Depression F32.9 ; Type 2 diabetes mellitus with complication E11.8 and Nicotine dependence, unspecified, uncomplicated F17.200 [facility] [place] [id number] [place] [address] 11228- 7655 17 Feb, 2017 Generalized anxiety disorder F41.1 and Pain R52 [facility] [place] [id number] [place] [address] 67945- 8713 Feb, [facility] [place] [id number] [place] [address] 13883- 3217 Jan, [facility] [place] [id number] [place] [address] 99022- 0081 Jan, Generalized anxiety disorder F41.1 and Pain R52 [facility] [place] [id number] [place] [address] 65258- 7325 Jan, [facility] [id number] [place] [address] [id number] Dec, Generalized anxiety disorder F41.1 and Pain R52 [facility] [address] [place] [id number] Dec, Vascular dementia F01.50 ; Pain of left leg M79.605 ; Pain in right leg M79.604 and Type 2 diabetes mellitus with complication E11.8 [facility] [place] [id number] [place] [address] 87235- 0908 11 Dec, 2016 Pain R52 [facility] [place] [id number] [place] [address] 58336- 9287 Dec, [facility] [place] [id number] [place] [address] 98727- 6082 Nov, [facility] [place] [id number] [place] [address] 26834- 2911 Nov, Pain R52 and Generalized anxiety disorder F41.1 [facility] [address] [place] [id number] Nov, Depression F32.9 ; Vascular dementia with behavior disturbance F01.51 and Anxiety F41.9 [facility] [place] [address] [id number] [address] 3578 Nov, Pain R52 and Generalized anxiety disorder F41.1 [facility] [place] [id number] [place] [address] 12115- 4743 Oct, Generalized anxiety disorder F41.1 [facility] [place] [address]00565100[place], [place] [address] 8922 Oct, Pain R52 [facility] [place] [id number] [place] [address] 40812- 0917 Sep, [facility] [address] [facility] [place] [id number] Sep, Generalized anxiety disorder F41.1 [facility] [place] [id number] [place] [address] 29057- 2937 Sep, Pain R52 [facility] [place] [id number] [place] [address] 22871- 1427 Sep, Generalized anxiety disorder F41.1 [facility] [place] [address]00565100[place], [place] [address] 6106 August, [facility] [place] [id number] [place] [address] 48970- 6220 August, [facility] [place] [address]00565100[place], [place] [address] 9764 August, Pain R52 [facility] [place] [address]00565100[place], [place] [address] 0898 August, Generalized anxiety disorder F41.1 [facility] [address] [id number] [id number] August, Generalized anxiety disorder F41.1 [facility] [place] [address] [address]- 0497 Jul, Pain R52 [facility] [place] [address], [place] [address]- 1409 Jul, [facility] [id number] [place] [address] [id number] Jul, [facility] [place] [id number] [place] [address] 22220- 0911 Jun, [facility] [id number] [place] [address] [id number] Jun, Depression F32.9 [facility] [place] [id number] [place] [address] 02882- 5807 Jun, Pain R52 [facility] [place] [id number] [place] [address] 50232- 2152 Jun, [facility] [address] [place] [place] [id number] Jun, Vascular dementia F01.50 and Depression F32.9 [facility] [place] [id number] [place] [address] 29711- 3577 May, Pain R52 [facility] [place] [id number] [place] [address] 72794- 4776 May, [facility] [place] [id number] [place] [address] 76086- 9838 May, Pseudobulbar affect F48.2 [facility] [place] [id number] [place] [address] 54893- 4057 09 May, 2016 [facility] [place] [id number] [place] [address] 30670- 4668 May, PVD (peripheral vascular disease) I73.9 [facility] [place] [id number] [place] [address] 57996- 6983 May, Vascular dementia with behavior disturbance F01.51 [facility] [place] [id number] [place] [address] 79161- 2116 May, Vascular dementia with behavior disturbance F01.51 [facility] [place] [id number] [place] [address] 88913- 3753 Apr, [facility] [place] [id number] [place] [address] 32339- 9060 Apr, Pain R52 [facility] [address] [facility] [id number] Apr, Generalized anxiety disorder F41.1 ; PVD (peripheral vascular disease) I73.9 and Type 2 diabetes mellitus with complication E11.8 [facility] [place] [address] [place] [address] 23127- 6660 Apr, Vascular dementia with behavior disturbance F01.51 [facility] [place] [id number] [place] [address] 97106- 8588 Apr, [place] [id number] [place] [address] 54423- 6910 Apr, Vascular dementia with behavior disturbance F01.51 [place] [id number] [place] [address] 44605- 9951 Apr, [facility] [id number] [place] [address] [id number] Mar, [facility] [place] [id number] [place] [address] 68141- 0321 Mar, Type 2 diabetes mellitus with complication E11.8 ; Vascular dementia with behavior disturbance F01.51 and Depression F32.9 [facility] [place] [address] [place] [address] 13339- 0727 Mar, [facility] [place] [id number] [place] [address] 05731- 9430 Feb, [facility] [place] [id number] [place] [address] 98092- 1853 Feb, Viral illness B34.9 [facility] [place] [id number] [place] [address] 89447- 5548 Jan, Diabetes 250.00 [facility] [place] [id number] [place] [address] 16603- 6140 Jan, [facility] [place] [id number] [place] [address] 88922- 9103 Jan, [facility] [place] [address] [facility] [id number] [address]- 4448 Jan, [facility] [address] [place] [id number] Jan, Vascular dementia with behavior disturbance F01.51 and Type 2 diabetes mellitus with complication E11.8 [facility] [place] [address] [facility] [id number] [address]- 5156 Jan, Pain R52 [facility] [place] [address] [facility] [id number] [address] 2546 Jan, Pain R52 [facility] [place] [address], [place] [address]- 4281 Dec, [facility] [place] [address], [place] [address]- 2231 Nov, [facility] [address] [place] [id number] Nov, Type 2 diabetes mellitus with complication E11.8 [facility] [place] [address], [place] [address]- 9098 Nov, [facility] [place] [address], [place] [address]- 1832 Oct, [facility] [place] [address], [place] [address]- 3495 Oct, [facility] [place] [address], [place] [address]- 9551 Oct, Vascular dementia with behavior disturbance F01.51 and Type 2 diabetes mellitus with complication E11.8 [facility] [place] [address], [place] [address]- 8844 August, Type 2 diabetes mellitus with complication E11.8 and Vascular dementia with behavior disturbance F01.51 [facility] [place] [address] [id number], [place] [address]- 4812 August, Vascular dementia F01.50 [facility] [place] [address], [place] [address]- 0294 August, Vascular dementia with behavior disturbance F01.51 [facility] [place] [address], [place] [address]- 2670 Jul, Vascular dementia with behavior disturbance F01.51 [facility] [place] [address], [place] [address]- 5861 Jun, Vascular dementia F01.50 [facility] [place] [address] [place] [address] 68091- 6033 Jun, Type 2 diabetes mellitus with complication E11.8 ; Long- term insulin use Z79.4 and Vascular dementia with behavior disturbance F01.51 [facility] [place] [address], [place] [address]- 9788 Jun, Vascular dementia with behavior disturbance F01.51 [place] [address], [place] [address]- 9515 Jun, Vascular dementia F01.50 [facility] [place] [address], [place] [address]- 7904 Apr, [facility] [place] [address], [place] [address]- 0089 Apr, [facility] [place] [address], [place] [address]- 7487 Apr, [place] [address], [place] [address]- 9145 Apr, Type 2 diabetes mellitus with complication E11.8 ; Depression F32.9 and Long-term insulin use Z79.4 [facility] [place] [address] [id number] [address]- 3755 Mar, [facility] [address] [place] [id number] Mar, Depression F32.9 ; Type 2 diabetes mellitus with complication E11.8 and Long-term insulin use Z79.4 [place] [address] [id number] [address]- 2036 Feb, [facility] [place] [address], [place] [address]- 4979 Feb, Hyperthyroidism E05.90 [facility] [place] [address], [place] [address]- 7306 Feb, Hyperthyroidism E05.90 [facility] [place] [address], [place] [address]- 2546 Feb, [facility] [place] [address] [place] [address] 78860- 5514 Jan, [facility] [place] [address] [place] [address] 34814- 0227 Dec, Nicotine addiction 305.1 [facility] [place] [address] [place] [address] 89646- 1197 Oct, Nicotine abuse 305.1 [facility] [place] [address] [place] [address] 92775- 3334 Oct, [facility] [place] [address], [place] [address]- 6131 August, [place] [address] [place] [id number] August, History of drug abuse 305.93 and Diabetes 250.00 [facility] [place] [address], [place] [address]- 6644 14 Jul, 2014 [facility] [place] [address], [place] [address]- 4372 Jul, [facility] [place] [address], [place] [address]- 8548 Jun, [facility] [place] [address], [place] [address]- 3434 18 Jun, 2014 [facility] [place] [address], [place] [address]- 6652 Jun, [facility] [place] [address], [place] [address]- 2985 Jun, [facility] [address] [id number] [place] [address]- 1556 Jun, [facility] [place] [facility] [address] [id number] [place] [address]- 7686 Jun, [facility] [place] [facility] [address] [id number] [place] [address]- 4578 May, [facility] [place] [facility] [address] [id number] [place] [address]- 1142 May, [facility] [place] [facility] [address] [id number] [place] [address]- 0698 May, [facility] [place] [facility] [address] [id number] [place] [address]- 7715 May, [facility] [address] [id number] [place] [address]- 3309 May, [facility] [place] [facility] [address] [id number] [place] [address]- 2439 Apr, [facility] [address] [id number], [place] [address]- 0452 Apr, [facility] [address] [place] [id number] Apr, [facility] [place] [facility] [address] [id number], [place] [address]- 9977 Apr, [facility] [place] [facility] [address] [id number], [place] [address]- 1510 Apr, [facility] [place] [facility] [address] [id number], [place] [address]- 3153 Apr, [facility] [place] [facility] [address] [id number], [place] [address]- 2102 Apr, [facility] [place] [facility] [address] [id number], [place] [address]- 8404 Apr, [facility] [place] [facility] [address] [id number] [place] [address]- 1689 Mar, [facility] [address] [id number] [place] [address]- 5017 Mar, [facility] [address] [id number] [place] [address]- 7402 Mar, [facility] [address] [id number] [place] [address]- 2665 Mar, [facility] [place] [facility] [address] [id number] [place] [address]- 2515 Mar, [facility] [address] [id number] [place] [address]- 6644 Mar, [facility] [place] [facility] [address] [id number] [place] [address]- 4941 Mar, [facility] [address] [id number] [place] [address]- 3163 Mar, [facility] [address] [id number] [place] [address]- 9908 Feb, [facility] [address] [id number] [place] [address]- 5894 Feb, [facility] [address] [id number] [place] [address]- 6416 Feb, [facility] [place] [facility] [address] [id number] [place] [address]- 3353 Feb, [facility] [address] [id number], [place] [address]- 3290 Feb, [facility] [address] [place] [id number] Feb, [facility] [address] [id number] [place] [address]- 3028 Feb, [facility] [place] [facility] [address] [id number] [place] [address]- 2061 Feb, [facility] [place] [facility] [address] [id number] [place] [address]- 7962 Feb, [facility] [place] [facility] [address] [id number] [place] [address]- 2196 Feb, [facility] [place] [facility] [address] [id number] [place] [address]- 1760 Jan, [facility] [place] [facility] [address] [id number] [place] [address]- 9052 30 Jan, 2014 [facility] [place] [facility] [address] [id number] [place] [address]- 7714 Jan, [facility] [place] [facility] [address] [id number] [place] [address] 17 Jan, 2014 [facility] [place] [facility] [address] [id number] [place] [address] 16 Jan, 2014 [facility] [place] [facility] [address] [id number] [place] [address] 16 Jan, 2014 [facility] [place] [facility] [address] [id number] [place] [address] 15 Jan, 2014 [facility] [place] [facility] [address] [id number] [place] [address] Jan, [facility] [place] [facility] [address] [id number] [place] [address] Jan, [facility] [place] [facility] [address] [id number] [place] [address] Jan, [facility] [place] [facility] [address] [id number] [place] [address] Jan, [facility] [place] [facility] [address] [id number] [place] [address] Jan, [facility] [place] [facility] [address] [id number] [place] [address] 09 Jan, 2014 [facility] [place] [facility] [address] [id number] [id number] [address] 08 Jan, 2013 [facility] [place] [facility] [address] [id number] [place] [address] 08 Jan, 2013 [facility] [place] [facility] [address] [id number] [place] [address] 80[address] Jan, 2013 [facility] [place] [facility] [address] [id number] [place] [address] Jan, 2013 [facility] [place] [facility] [address] [id number] [place] [address] Sep, 2013 [facility] [place] [facility] [address] [id number] [place] [address] 19 Sep, 2013 [facility] [place] [facility] [address] [id number] [place] [address] Dec, 2013 [facility] [place] [facility] [address] [id number] [place] [address] Dec, 2013 [facility] [place] [facility] [address] [id number] [place] [address] Sep, 2013 [facility] [place] [facility] [address] [id number] [place] [address] 09 Sep, 2013 [facility] [place] [facility] [address] [id number] [place] [address] 08 Sep, 2013 [facility] [place] [facility] [address] [id number] [place] [address] 08 Sep, 2013 [facility] [place] [facility] [address] [id number], [place] [address] 08 Sep, 2013 [facility] [place] [facility] [address] [id number] [place] [address] 08 Sep, 2013 [facility] [place] [facility] [address] [id number] [place] [address] 05 Sep, 2013 [facility] [place] [facility] [address] [id number] [place] [address] 05 Sep, 2013 [facility] [place] [facility] [address] [id number] [place] [address] Dec, [facility] [place] [facility] [address] [id number] [place] [address] Dec, [facility] [place] [facility] [address] [id number] [place] [address] Nov, [facility] [place] [facility] [address] [id number] [place] [address] Nov, [facility] [place] [facility] [address] [id number] [place] [address] Nov, [facility] [place] [facility] [address] [id number] [place] [address] Nov, [facility] [place] [facility] [address] [id number] [place] [address] Nov, [facility] [place] [facility] [address] [id number] [place] [address] Nov, [facility] [place] [facility] [address] [id number] [place] [address] Nov, [facility] [place] [facility] [address] [id number] [place] [address] Nov, [facility] [place] [facility] [address] [id number] [place] [address] Nov, [facility] [place] [facility] [address] [id number] [place] [address] Nov, [facility] [place] [facility] [address] [id number] [place] [address] Nov, [facility] [place] [facility] [address] [id number] [place] [address]- 1762 Nov, [facility] [place] [facility] [address] [id number] [place] [address] 1518 Nov, [facility] [place] [facility] [address] [id number] [place] [address] 9440 Nov, [facility] [place] [facility] [address] [id number] [place] [address] 2422 Oct, [facility] [place] [facility] [address] [id number] [place] [address] 5606 Oct, [facility] [place] [facility] [address] [id number] [place] [address] 8496 Oct, [facility] [place] [facility] [address] [id number] [place] [address]- 5486 Oct, [facility] [place] [facility] [address] [id number] [place] [address] 2925 Oct, [facility] [place] [facility] [address] [id number] [place] [address] 8753 Oct, [facility] [place] [facility] [address] [id number] [place] [address]- 3279 Oct, [facility] [place] [facility] [address] [id number] [place] [address]- 5283 Oct, [facility] [place] [facility] [address] [id number] [place] [address]- 1148 Oct, [facility] [place] [facility] [address] [id number] [place] [address]- 9488 Oct, [facility] [place] [facility] [address] [id number] [place] [address]- 4679 Oct, [facility] [place] [facility] [address] [id number] [place] [address]- 3823 Oct, [facility] [place] [facility] [address] [id number] [facility] [address] 7036 Oct, [facility] [place] [facility] [address] [id number] [place] [address]- 2546 Oct, [facility] [place] [facility] [address] [id number] [place] [address]- 5096 Oct, [facility] [place] [facility] [address] [id number] [place] [address]- 3732 Oct, [facility] [place] [facility] [address] [id number] [place] [address]- 5171 Oct, [facility] [place] [facility] [address] [id number] [place] [address]- 0817 Oct, [facility] [place] [facility] [address] [id number] [place] [address]- 3036 Oct, [facility] [place] [facility] [address] [id number] [place] [address]- 6896 Oct, [facility] [place] [facility] [address] [id number] [place] [address]- 9695 Sep, [facility] [place] [facility] [address] [id number] [place] [address]- 2610 Sep, [facility] [place] [facility] [address] [id number] [place] [address]- 7399 Sep, [facility] [place] [facility] [address] [id number] [place] [address]- 6845 Sep, [facility] [place] [facility] [address] [id number] [place] [address]- 9706 Sep, [facility] [place] [facility] [address] [id number] [place] [address]- 3651 Sep, [facility] [place] [facility] [address] [id number] [place] [address]- 1199 August, [facility] [place] [facility] [address] [id number] [place] [address]- 9680 August, [facility] [place] [facility] [address] [id number] [place] [address]- 6370 Jul, [facility] [place] [facility] [address] [id number] [place] [address]- 0308 Jul, [facility] [place] [facility] [address] [id number] [place] [address]- 7521 Jul, [facility] [place] [facility] [address] [id number] [place] [address]- 1466 17 Jul, 2013 [facility] [place] [facility] [address] [id number] [place] [address]- 5776 Jul, [facility] [place] [facility] [address] [id number] [place] [address] Jul, [facility] [place] [facility] [address] [id number] [place] [address]- 1916 Jul, [facility] [place] [facility] [address] [id number] [place] [address]- 7360 Jul, [facility] [place] [facility] [address] [id number] [place] [address]- 7885 Jun, [facility] [place] [facility] [address] [id number] [place] [address]- 0981 Jun, [facility] [place] [facility] [address] [facility] [place] [id number] [place] [address]- 2691 Jun, [facility] [place] [facility] [address] [facility] [place] [id number] [place] [address]- 6158 Jun, [facility] [place] [facility] [address] [id number] [place] [address]- 2835 Jun, [facility] [place] [facility] [address] [facility] [place] [id number] [place] [address]- 8145 May, [facility] [place] [facility] [address] [id number] [place] [address]- 3696 May, [facility] [place] [facility] [address] [facility] [place] [id number] [place] [address]- 0207 May, [facility] [place] [facility] [address] [id number] [place] [address]- 3613 May, [facility] [place] [facility] [address] [facility] [place] [id number] [place] [address]- 2886 May, [facility] [place] [facility] [address] [facility] [place] [id number] [place] [address]- 8456 May, [facility] [place] [facility] [address] [id number] [place] [address]- 4453 May, [facility] [place] [facility] [address] [id number] [place] [address]- 9426 May, [facility] [place] [facility] [address] [id number] [place] [address] May, [facility] [place] [facility] [address] [id number] [place] [address]- 3853 May, [facility] [place] [facility] [address] [id number] [place] [address]- 0438 May, [facility] [place] [facility] [address] [id number] [place] [address]- 9567 Apr, [facility] [place] [facility] [address] [id number] [place] [address]- 0292 Apr, [facility] [place] [facility] [address] [id number] [place] [address]- 5591 Mar, [facility] [place] [facility] [address] [id number] [place] [address]- 7228 Mar, [facility] [place] [facility] [address] [id number] [place] [address]- 0422 Mar, [facility] [place] [facility] [address] [id number] [place] [address]- 6089 Mar, [facility] [place] [facility] [address] [id number] [place] [address]- 2605 Mar, [facility] [place] [facility] [address] [id number] [place] [address]- 3803 Jan, [facility] [place] [facility] [address] [id number] [place] [address]- 2474 Jan, [facility] [place] [facility] [address] [id number] [place] [address]- 7870 Jan, [facility] [place] [facility] [address] [id number] [place] [address]- 0219 Jan, [facility] [address] [id number] [place] [address]- 3637 Jan, [facility] [place] [facility] [address] [id number] [place] [address]- 0329 Jan, [facility] [address] [id number] [place] [address]- 7877 Jan, [facility] [place] [facility] [address] [id number] [place] [address]- 5649 Jan, [facility] [address] [id number] [place] [address]- 5838 Jan, [facility] [address] [id number] [place] [address]- 2554 Jan, [facility] [place] [facility] [address] [id number] [place] [address]- 1510 Dec, [facility] [address] [id number] [place] [address]- 5347 Oct, [facility] [place] [facility] [address] [id number] [place] [address]- 5217 Oct, [facility] [address] [id number] [place] [address]- 6190 Oct, [facility] [place] [facility] [address] [id number] [place] [address]- 0849 Oct, [facility] [place] [facility] [address] [id number] [place] [address]- 0614 Oct, [facility] [place] [facility] [address] [id number] [place] [address]- 9697 Oct, [facility] [place] [facility] [address] [id number] [place] [address]- 4429 Sep, [facility] [place] [facility] [address] [id number] [place] [address]- 5142 August, [facility] [address] [id number] [place] [address]- 0341 August, [facility] [address] [id number] [place] [address]- 0046 August, [facility] [address] [id number] [place] [address]- 6886 August, [facility] [address] [id number] [place] [address]- 7166 August, [facility] [address] [id number] [place] [address]- 0334 May, [facility] [address] [id number] [place] [address]- 2726 Apr, [facility] [address] [id number] [place] [address]- 2047 Apr, [facility] [address] [id number] [place] [address]- 5641 Apr, [facility] [address] [id number] [place] [address]- 6497 Apr, [facility] [address] [facility] [place] [id number] [place] [address]- 5313 Apr, [facility] [address] [place] [id number] Mar, [facility] [address] [id number] [place] [address]- 8690 Mar, [facility] [address] [id number] [place] [address]- 0625 Mar, [facility] [address] [id number] [place] [address]- 3657 Mar, [facility] [address] [id number] [place] [address]- 6716 17 Mar, 2012 [facility] [address] [id number] [place] [address]- 9303 17 Mar, 2012 [facility] [place] [facility] [address] [id number] [place] [address]- 2286 13 Mar, 2012 [facility] [place] [facility] [address] [id number] [place] [address]- 1996 13 Mar, 2012 [facility] [place] [facility] [address] [id number] [place] [address]- 6996 13 Mar, 2012 [facility] [place] [facility] [address] [id number] [place] [address]- 0776 13 Mar, 2012 [facility] [place] [facility] [address] [id number] [place] [address]- 7760 12 Mar, 2012 [facility] [place] [facility] [address] [id number] [place] [address]- 3194 Mar, [facility] [place] [facility] [address] [id number] [place] [address]- 5204 Mar, [facility] [place] [facility] [address] [id number] [place] [address]- 4904 Mar, [facility] [place] [facility] [address] [id number] [place] [address]- 1487 Mar, [facility] [place] [facility] [address] [id number] [place] [address]- 9500 Mar, [facility] [place] [facility] [address] [id number] [place] [address]- 8302 Mar, [facility] [place] [facility] [address] [id number], [place] [address]- 7296 Mar, [facility] [place] [facility] [address] [id number] [place] [address]- 4506 05 Mar, 2012 [facility] [place] [facility] [address] [id number] [place] [address]- 1670 05 Mar, 2012 [facility] [place] [facility] [address] [id number] [place] [address]- 5799 Feb, [facility] [place] [facility] [address] [id number] [place] [address]- 0140 Feb, [facility] [place] [facility] [address] [id number] [place] [address]- 1605 Feb, [facility] [place] [facility] [address] [id number] [place] [address]- 6502 Feb, [facility] [place] [facility] [address] [id number] [place] [address]- 3046 Jan, [facility] [place] [facility] [address] [id number] [place] [address]- 4893 Jan, [facility] [place] [facility] [address] [id number] [place] [address]- 5726 Jan, [facility] [place] [facility] [address] [id number] [place] [address]- 3880 Jan, [facility] [place] [facility] [address] [id number] [place] [address]- 3080 Jan, [facility] [place] [facility] [address] [id number] [place] [address]- 0910 Jan, [facility] [place] [facility] [address] [id number] [place] [address]- 5728 Jan, [facility] [place] [facility] [address] [facility] [place] [id number] [place] [address]- 7527 Jan, [facility] [place] [facility] [address] [id number] [place] [address]- 8632 Jan, [facility] [place] [facility] [address] [id number] [place] [address]- 3978 27 Dec, 2011 [facility] [place] [facility] [address] [id number] [place] [address]- 6085 14 Sep2011 [facility] [place] [facility] [address] [facility] [place] [id number] [place] [address]- 1902 12 Dec, 2011 [facility] [place] [facility] [address] [id number] [place] [address]- 0286 Dec, [facility] [place] [facility] [address] [id number] [place] [address]- 1697 Dec, [facility] [place] [facility] [address] [id number] [place] [address]- 6166 Nov, [facility] [place] [facility] [address] [id number] [place] [address]- 1812 Nov, [facility] [place] [facility] [address] [id number] [place] [address]- 2180 Nov, [facility] [place] [facility] [address] [id number] [place] [address]- 2648 Nov, [facility] [place] [facility] [address] [id number] [place] [address]- 4807 Nov, [facility] [place] [facility] [address] [id number] [place] [address]- 4003 Nov, [facility] [place] [facility] [address] [id number] [place] [address]- 3986 Nov, [facility] [place] [facility] [address] [id number] [place] [address]- 2839 Nov, [facility] [place] [facility] [address] [id number] [place] [address]- 1302 Nov, [facility] [place] [facility] [address] [id number] [place] [address]- 0886 Oct, [facility] [place] [facility] [address] [id number] [place] [address]- 8304 Oct, [facility] [place] [facility] [address] [id number] [place] [address]- 9107 Sep, [facility] [place] [facility] [address] [id number] [place] [address]- 6366 Sep, [facility] [place] [facility] [address] [id number] [place] [address]- 2386 Sep, [facility] [place] [facility] [address] [id number] [place] [address]- 9066 14 Aug, 2011 [facility] [place] [facility] [address] [id number] [place] [address]- 7394 30 Jul, 2011 [facility] [place] [facility] [address] [id number] [place] 0471 27 Jul, 2011 [facility] [place] [facility] [address] [id number] [place] [address]- 2755 27 Jul, 2011 [facility] [place] [facility] [address] [id number] [place] [address]- 3866 18 Jul, 2011 [facility] [place] [facility] [address] [id number] [place] [address]- 7701 16 Jul, 2011 [facility] [place] [facility] [address] [id number] [place] [address]- 3877 16 Jul, 2011 [facility] [place] [facility] [address] [id number] [place] [address]- 0559 16 Jul, 2011 [facility] [place] [facility] [address] [id number] [place] [address]- 9432 14 Jul, 2011 [facility] [place] [facility] [address] [id number] [place] [address]- 3339 Jul, [facility] [place] [facility] [address] [id number] [place] [address]- 5685 19 Jun, 2011 [facility] [place] [facility] [address] [id number] [place] [address]- 9405 18 Jun, 2011 [facility] [place] [facility] [address] [id number] [place] [address]- 4197 15 Jun, 2011 [facility] [place] [facility] [address] [id number] [place] [address]- 5661 12 Jun, 2011 [facility] [place] [facility] [address] [id number] [place] [address]- 3196 08 Jun, 2011 [facility] [place] [facility] [address] [id number] [place] [address]- 9713 08 Jun, 2011 [facility] [place] [facility] [address] [id number] [place] [address]- 7204 Jun, [facility] [address] [id number] [place] [address]- 0376 Jun, [facility] [place] [facility] [address] [id number] [place] [address]- 7256 May, [facility] [place] [facility] [address] [id number] [place] [address]- 7066 May, [facility] [place] [facility] [address] [id number] [place] [address]- 2543 May, [facility] [place] [facility] [address] [id number] [place] [address]- 6674 Apr, [facility] [address] [id number] [place] [address]- 0434 Apr, [facility] [address] [id number] [place] [address]- 4705 Apr, [facility] [address] [id number] [place] [address]- 1136 Mar, [facility] [address] [id number] [place] [address]- 4306 Mar, [facility] [address] [id number] [place] [address]- 8496 15 Mar, 2011 [facility] [place] [facility] [address] [id number] [place] [address]- 2546 Mar, [facility] [place] [facility] [address] [id number] [place] [address] 2546 Mar, [facility] [place] [facility] [address] [id number] [place] [address] 2546 12 Mar, 2011 [facility] [place] [facility] [address] [id number] [place] [address] 12 Mar, 2011 [facility] [place] [facility] [address] [id number] [place] [address] Mar, [facility] [place] [facility] [address] [id number] [place] [address] 08 Mar, 2011 [facility] [place] [facility] [address] [id number] [place] [address] Mar, [facility] [place] [facility] [address] [facility] [place] [id number] [place] [address] Mar, [facility] [place] [facility] [address] [id number] [place] [address] Mar, [facility] [place] [facility] [address] [id number] [place] [address] Mar, [facility] [place] [facility] [address] [id number] [place] [address] Mar, [facility] [place] [facility] [address] [id number] [place] [address] Feb, [facility] [place] [facility] [address] [id number], [place] [address] Feb, [facility] [place] [facility] [address] [id number], [place] [address] Feb, [facility] [place] [facility] [address] [facility] [place] [id number], [place] [address] Jan, [facility] [place] [facility] [address] [id number], [place] [address] Jan, [facility] [place] [facility] [address] [id number], [place] [address] Oct, [facility] [place] [facility] [address] [id number] [place] [address] Sep, [facility] [place] [facility] [address] [facility] [place] [id number], [place] [address] Mar, [facility] [place] [facility] [address] [facility] [place] [id number], [place] [address] 16 Mar, 2010 [facility] [place] [facility] [id number], [place] [address] Feb, [facility] [place] [address] [facility] [place] [id number], [place] [address] Feb, [facility] [place] [address] [facility] [place] [id number], [place] [address] Jan, [facility] [place] [address] [facility] [place] [id number], [place] [address] Jan, [facility] [place] [address] [facility] [place] [id number], [place] [address] Mar, [facility], [place] [id number], [place] [address] Feb, [facility] [place] [id number], [place] [address] Feb, [facility] [place] [id number], [place] [address] Feb, [facility] [place] [id number], [place] [address] Feb, [facility] [place] [id number], [place] [address] Jan, [facility], [place] [id number], [place] [address] Dec, [facility], [place] [id number], [place] [address] Nov, IMMUNIZATIONS No Known Immunizations SOCIAL HISTORY [...] (GENERAL) HISTORY Type Description Date Hospitalization History [facility] March 2015
--- OUTSIDE RECORDS SUMMARY | 2017-10-27 10:51 | XMS REPORT ---
Author Author STEPHANIE CHRISTIANSEN [facility] Address [address] [place] [address] Care Team Providers Care Kiln Hand Name Role Phone STEPHANIE CHRISTIANSEN Unavailable PROBLEMS Type Condition ICD9-CM Code RBK68-MM Code Onset Dates Condition Status SNOMED Code Problem Hyperlipidemia, unspecified hyperlipidemia type E78.5 Active 93414265 Problem Long-term insulin use Z79.4 Active 584646139 Problem Abnormal carotid ultrasound R93.8 Active 809645523 Problem Type 2 diabetes mellitus with complication E11.8 Active 67892914 Problem Positive TB test R76.11 Active 254941134 Problem Vascular dementia with behavior disturbance F01.51 Active 447094044 Problem PVD (peripheral vascular disease) I73.9 Active 894818702 Problem Pain R52 Active 36463442 Problem Other chronic osteomyelitis of left foot M86.672 Active 158846293 Problem Nicotine dependence, unspecified, uncomplicated F17.200 Active 592943504 Problem Peripheral vascular disease due to secondary diabetes E13.51 Active 6374078 Problem Nonintractable epilepsy without status epilepticus, unspecified epilepsy type G40.909 Active 827793271 Problem Recurrent major depressive disorder, remission status unspecified F33.9 Active 76829228 Problem Anxiety F41.9 Active 82705791 Problem Generalized anxiety disorder F41.1 Active 91526222 Problem Vascular dementia F01.50 Active 178311013 Problem Pseudobulbar affect F48.2 Active 18048682 Problem Coronary artery disease involving platinum coronary artery 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 I25.10 Active 0213471191477 Problem Gastroesophageal reflux disease without esophagitis K21.9 Active 673925513 Problem Cerebrovascular accident (CVA) due to other mechanism I63.8 Active 341634294 Problem Pulmonary emphysema, unspecified emphysema type J43.9 Active 90856371 Problem Neuropathy G62.9 Active 343899683 Problem Depression F32.9 Active 46452149 Problem Essential hypertension I10 Active 77589934 Problem Acquired hypothyroidism E03.9 Active 543841249 ALLERGIES No Information ENCOUNTERS Encounter Location Date Diagnosis [facility] [id number] [place] [address] 16670- 8546 Jul, Generalized anxiety disorder F41.1 [facility] [id number] [place] [address] [id number] Jun, Generalized anxiety disorder F41.1 [facility] [address] [id number] Jun, [facility] [address] [id number] May, [facility] [address] 63932- 6443 May, [facility] [address] [id number] May, Generalized anxiety disorder F41.1 [facility] [id number] [place] [address] [id number]- 0876 Apr, [facility] [address] [place] [id number] Apr, Other chronic osteomyelitis of left foot M86.672 ; Type 2 diabetes mellitus with complication E11.8 ; Vascular dementia F01.50 ; Long-term insulin use Z79.4 ; PVD (peripheral vascular disease) I73.9 and Nicotine abuse 305.1 [facility] [address] [place] [address] 49177- 3972 Apr, [facility] [id number] [place] [address] [id number] Apr, [facility] [id number] [place] [address] 96845- 0851 Apr, Pain R52 and Generalized anxiety disorder F41.1 [facility] [address] [place] [address] 769027- 2480 Mar, [facility] [id number] [place] [address] 10766- 4103 Mar, Pain R52 and Generalized anxiety disorder F41.1 [facility] [address] [place] [id number] Feb, Depression F32.9 ; Type 2 diabetes mellitus with complication E11.8 and Nicotine dependence, unspecified, uncomplicated F17.200 [facility] [address] [place] [address] 19819- 0576 17 Feb, 2017 Generalized anxiety disorder F41.1 and Pain R52 [facility] [id number] [place] [address] 85614- 2170 Feb, [facility] [id number] [place] [address] 94451- 1223 Jan, [facility] [id number] [place] [address] 37074- 5797 Jan, Generalized anxiety disorder F41.1 and Pain R52 [facility] [id number] [place] [address] 00783- 2563 Jan, [facility] [id number] [place] [address] [id number] Dec, Generalized anxiety disorder F41.1 and Pain R52 [facility] [address] [place] [id number] Dec, Vascular dementia F01.50 ; Pain of left leg M79.605 ; Pain in right leg M79.604 and Type 2 diabetes mellitus with complication E11.8 [facility] [id number] [place] [address] 95580- 2548 Dec, Pain R52 [facility] [id number] [place] [address] 48426- 5441 Dec, [facility] [id number] [place] [address] 54908- 4886 Nov, [facility] [id number] [place] [address] 46996- 0840 Nov, Pain R52 and Generalized anxiety disorder F41.1 [facility] [address] [place] [id number] Nov, Depression F32.9 ; Vascular dementia with behavior disturbance F01.51 and Anxiety F41.9 [facility] [id number] [place] [address] 90083- 7719 Nov, Pain R52 and Generalized anxiety disorder F41.1 [facility] [id number] [place] [address] 18106- 4179 Oct, Generalized anxiety disorder F41.1 [facility] [id number] [place] [address] 34207- 5924 Oct, Pain R52 [facility] [id number] [place] [address] 52665- 7585 Sep, [facility] [address] [place] [id number] Sep, Generalized anxiety disorder F41.1 [facility] [id number] [place] [address] 11111- 5760 Sep, Pain R52 [facility] [id number] [place] [address] 50128- 5672 Sep, Generalized anxiety disorder F41.1 [facility] [id number] [place] [address] 26055- 6535 August, [facility] [id number] [place] [address] 18214- 9312 August, [facility] [id number] [place] [address] 62683- 1067 August, Pain R52 [facility] [address] [place] [address] 80869- 2024 August, Generalized anxiety disorder F41.1 [facility] [id number] [place] [address] [id number] August, Generalized anxiety disorder F41.1 [facility] [address] [place] [address] 52951- 9163 Jul, Pain R52 [facility] [address] [place] [address] 79000- 9925 Jul, [facility] [id number] [place] [address] [id number] Jul, [facility] [id number] [place] [address] 31481- 2369 Jun, [facility] [id number] [place] [address] [id number] Jun, Depression F32.9 [facility] [id number] [place] [address] 99980- 0541 Jun, Pain R52 [facility] [id number] [place] [address] 58277- 3294 Jun, [facility] [address] [place] [id number] Jun, Vascular dementia F01.50 and Depression F32.9 [facility] [id number] [place] [address] 17812- 8118 May, Pain R52 [facility] [id number] [place] [address] 97947- 1960 15 May, 2016 [facility] [id number] [place] [address] 46247- 7155 May, Pseudobulbar affect F48.2 [facility] [id number] [place] [address] 88587- 6359 May, [facility] [id number] [place] [address] 86902- 1478 08 May, 2016 PVD (peripheral vascular disease) I73.9 [facility] [id number] [place] [address] 50024- 5444 08 May, 2016 Vascular dementia with behavior disturbance F01.51 [facility] [address] [place] [address] 65056- 8394 02 May, 2016 Vascular dementia with behavior disturbance F01.51 [facility] [id number] [place] [address] 70605- 5850 Apr, [facility] [address] 39943- 5130 Apr, Pain R52 [facility] [address] [place] [id number] Apr, Generalized anxiety disorder F41.1 ; PVD (peripheral vascular disease) I73.9 and Type 2 diabetes mellitus with complication E11.8 [facility] [address] 77170- 9660 Apr, Vascular dementia with behavior disturbance F01.51 [place] [address] 73094- 3763 Apr, [place] [address] 73713- 7571 Apr, Vascular dementia with behavior disturbance F01.51 [place] [id number] [place] [address] 81705- 9340 Apr, [facility] [address] [id number] Mar, [facility] [id number] [place] [address] 88674- 4554 Mar, Type 2 diabetes mellitus with complication E11.8 ; Vascular dementia with behavior disturbance F01.51 and Depression F32.9 [facility] [id number] [place] [address] 21426- 1642 Mar, [facility] [id number] [place] [address] 15436- 0375 Feb, [facility] [address] 93182- 3400 Feb, Viral illness B34.9 [facility] [id number] [place] [address] 89730- 1375 Jan, Diabetes 250.00 [facility] [address] 76566- 5497 Jan, [facility] [address] [facility] [id number] [address]- 1602 Jan, [facility] [address] [facility] [id number] [address]- 7192 Jan, [facility] [address] [place] [id number] Jan, Vascular dementia with behavior disturbance F01.51 and Type 2 diabetes mellitus with complication E11.8 [facility] [address] [facility] [id number] [address]- 8264 Jan, Pain R52 [facility] [id number] [place] [address] 47989- 5013 Jan, Pain R52 [facility] [address] [place] [address] 96233- 1991 Dec, [facility] [address] [address]- 1754 Nov, [facility] [address] [place] [id number] Nov, Type 2 diabetes mellitus with complication E11.8 [facility] [address] [address]- 3139 Nov, [facility] [address] [address]- 4251 Oct, [facility] [address] [address]- 5957 Oct, [facility] [address] [address]- 8646 Oct, Vascular dementia with behavior disturbance F01.51 and Type 2 diabetes mellitus with complication E11.8 [facility] [address] [address]- 7403 August, Type 2 diabetes mellitus with complication E11.8 and Vascular dementia with behavior disturbance F01.51 [facility] [address] [address]- 2343 August, Vascular dementia F01.50 [facility] [address] [address]- 8946 August, Vascular dementia with behavior disturbance F01.51 [facility] [address] [address]- 2546 Jul, Vascular dementia with behavior disturbance F01.51 [facility] [address] [address]- 4976 Jun, Vascular dementia F01.50 [facility] [address] [address]- 7026 Jun, Type 2 diabetes mellitus with complication E11.8 ; Long- term insulin use Z79.4 and Vascular dementia with behavior disturbance F01.51 [place] [address] [address]- 2786 Jun, Vascular dementia with behavior disturbance F01.51 [facility] [address] [address]- 4834 Jun, Vascular dementia F01.50 [place] [address] [address]- 5045 Apr, [place] [address] [address]- 5255 Apr, [place] [address] [address]- 9207 Apr, [place] [address] [address]- 8577 Apr, Type 2 diabetes mellitus with complication E11.8 ; Depression F32.9 and Long-term insulin use Z79.4 [facility] [id number] [address]- 2546 Mar, [facility] [address] [place] [id number] Mar, Depression F32.9 ; Type 2 diabetes mellitus with complication E11.8 and Long-term insulin use Z79.4 [facility] [address] [address]- 7423 Feb, [facility] [address] [address]- 0312 Feb, Hyperthyroidism E05.90 [facility] [address] 3106 Feb, Hyperthyroidism E05.90 [facility] [address] [address]- 7211 Feb, [facility] [address] [place] [address] 63978- 4513 Jan, [facility] [address] [address]- 0644 Dec, Nicotine addiction 305.1 [facility] [id number] [place] [address] 72454- 3812 Oct, Nicotine abuse 305.1 [facility] [address] [address]- 5371 Oct, [facility] [address] [address]- 8394 August, [place] [address] [place] [id number] August, History of drug abuse 305.93 and Diabetes 250.00 [facility] [address] [address]- 6173 Jul, [facility] [address] [address]- 7839 Jul, [facility] [address] [address]- 5781 Jun, [facility] [address] [address]- 4750 Jun, [facility] [id number] [place] [address]- 7984 Jun, [facility] [address] [id number] [place] [address]- 7140 Jun, [facility] [place] [facility] [address] [id number] [place] [address]- 9552 Jun, [facility] [address] [id number] [place] [address]- 8477 Jun, [facility] [place] [facility] [address] [id number] [place] [address]- 2961 May, [facility] [address] [id number] [place] [address]- 6665 May, [facility] [address] [id number] [place] [address]- 0756 May, [facility] [address] [id number] [place] [address]- 0123 May, [facility] [address] [id number] [place] [address]- 3452 May, [facility] [address] [id number] [place] [address]- 2856 Apr, [facility] [address] [facility] [id number] [address]- 5676 Apr, [place] [address] [place] [id number] Apr, [facility] [address] [id number] [address]- 0153 Apr, [facility] [place] [facility] [address] [id number], [place] [address]- 4203 Apr, [facility] [place] [facility] [address] [id number] [address]- 1302 Apr, [facility] [place] [facility] [address] [facility] [id number] [address]- 9539 Apr, [facility] [address] [id number] [place] [address]- 2286 Apr, [facility] [address] [id number] [place] [address]- 2960 Mar, [facility] [address] [id number] [place] [address]- 6299 Mar, [facility] [address] [id number] [place] [address]- 3014 Mar, [facility] [address] [id number] [place] [address]- 3142 Mar, [facility] [address] [id number] [place] [address]- 4502 Mar, [facility] [address] [id number] [place] [address]- 9601 Mar, [facility] [address] [id number] [place] [address]- 3048 Mar, [facility] [address] [id number] [place] [address]- 5645 Mar, [facility] [address] [id number] [place] [address]- 4077 Feb, [facility] [address] [id number] [place] [address]- 2222 Feb, [facility] [address] [id number] [place] [address]- 5633 Feb, [facility] [address] [id number] [place] [address]- 3711 Feb, [facility] [address] [id number] [place] [address]- 0557 Feb, [facility] [address] [place] [id number] Feb, [facility] [address] [id number] [place] [address]- 2156 Feb, [facility] [place] [facility] [address] [id number] [place] [address]- 7425 Feb, [facility] [place] [facility] [address] [id number] [place] 9583 Feb, [facility] [place] [facility] [address] [id number] [place] 5203 Feb, [facility] [place] [facility] [address] [id number] [place] [address]- 8166 Jan, [facility] [place] [facility] [address] [id number] [place] [address]- 7437 30 Jan, 2014 [facility] [place] [facility] [address] [id number] [place] [address]- 6199 Jan, [facility] [place] [facility] [address] [id number] [place] [address]- 9120 17 Jan, 2014 [facility] [place] [facility] [address] [id number] [address]- 3976 16 Jan, 2014 [facility] [place] [facility] [address] [id number] [place] [address]- 7280 16 Jan, 2014 [facility] [place] [facility] [address] [id number] [address]- 0758 15 Jan, 2014 [facility] [place] [facility] [address] [id number] [address]- 4728 13 Jan, 2014 [facility] [place] [facility] [address] [id number] [address]- 4369 Jan, [facility] [place] [facility] [address] [id number], [place] [address]- 1713 Jan, [facility] [place] [facility] [address] [id number] [address]- 3118 Jan, [facility] [place] [facility] [address] [id number]- 7609 09 Jan, 2014 [facility] [place] [facility] [address] [id number] [address]- 8844 09 Jan, 2013 [facility] [place] [facility] [address] [id number] [place] [address]- 7901 08 Jan, 2013 [facility] [place] [facility] [address] [id number] [place] [address]- 5898 08 Jan, 2013 [facility] [place] [facility] [address] [facility] [id number] [place] [address]- 4976 07 Jan, 2013 [facility] [place] [facility] [address] [id number] [place] [address]- 4192 07 Jan, 2013 [facility] [place] [facility] [address] [id number] [place] [address]- 5805 19 Sep, 2013 [facility] [place] [facility] [address] [id number] [place] [address]- 6043 19 Sep, 2013 [facility] [place] [facility] [address] [id number], [place] [address]- 7694 11 Sep, 2013 [facility] [place] [facility] [address] [id number] [address] 11 Sep, 2013 [facility] [place] [facility] [address] [id number] [place] [address] 09 Sep, 2013 [facility] [place] [facility] [address] [facility] [id number] [address] 09 Sep, 2013 [facility] [place] [facility] [address] [id number], [place] [address] 08 Sep, 2013 [facility] [place] [facility] [address] [id number], [place] [address] 08 Sep, 2013 [facility] [place] [facility] [address] [id number] [address] 08 Sep, 2013 [facility] [place] [facility] [address] [id number] [address] 08 Sep, 2013 [facility] [place] [facility] [address] [facility] [id number], [place] [address] 05 Sep, 2013 [facility] [place] [facility] [address] [id number] [place] [address] Dec, [facility] [place] [facility] [address] [id number] [place] [address] Dec, [facility] [place] [facility] [address] [id number] [place] [address] Dec, [facility] [place] [facility] [address] [id number] [place] [address] Nov, [facility] [place] [facility] [address] [id number] [place] [address] Nov, [facility] [place] [facility] [address] [id number] [place] [address] 1469 Nov, [facility] [place] [facility] [address] [id number] [place] [address] Nov, [facility] [place] [facility] [address] [id number] [place] [address] Nov, [facility] [place] [facility] [address] [id number] [place] [address] Nov, [facility] [place] [facility] [address] [id number] [place] [address] Nov, [facility] [place] [facility] [address] [id number] [place] [address]28 Nov, [facility] [place] [facility] [address] [id number] [place] [address] Nov, [facility] [place] [facility] [address] [id number] [place] [address] Nov, [facility] [place] [facility] [address] [id number] [place] [address] Nov, [facility] [place] [facility] [address] [id number] [place] [address] Nov, [facility] [place] [facility] [address] [id number] [place] [address] Nov, [facility] [place] [facility] [address] [id number] [place] [address] Nov, [facility] [place] [facility] [address] [id number] [place] [address] Oct, [facility] [place] [facility] [address] [id number] [place] [address] Oct, [facility] [place] [facility] [address] [id number] [place] [address] Oct, [facility] [place] [facility] [address] [id number] [place] [address] Oct, [facility] [place] [facility] [address] [id number] [place] [address] Oct, [facility] [place] [facility] [address] [id number] [place] [address] Oct, [facility] [place] [facility] [address] [id number] [place] [address] Oct, [facility] [place] [facility] [address] [id number] [place] [address] 7455 Oct, [facility] [place] [facility] [address] [id number] [place] [address] 8735 Oct, [facility] [place] [facility] [address] [id number] [place] [address] 0041 Oct, [facility] [place] [facility] [address] [id number] [place] [address] 7465 Oct, [facility] [place] [facility] [address] [id number] [place] [address] 0359 Oct, [facility] [place] [facility] [address] [id number] [place] [address] 3118 Oct, [facility] [place] [facility] [address] [id number] [place] [address]- 5277 Oct, [facility] [place] [facility] [address] [id number] [place] [address] 1827 Oct, [facility] [place] [facility] [address] [id number] [place] [address] 0378 Oct, [facility] [place] [facility] [address] [id number] [place] [address] Oct, [facility] [place] [facility] [address] [id number] [place] [address] 6328 Oct, [facility] [place] [facility] [address] [id number] [place] [address]- 6906 Oct, [facility] [place] [facility] [address] [id number] [place] [address] 3200 Oct, [facility] [place] [facility] [address] [id number] [place] [address]- 0177 Sep, [facility] [place] [facility] [address] [id number] [place] [address]- 9920 Sep, [facility] [place] [facility] [address] [id number] [place] [address]- 6833 Sep, [facility] [place] [facility] [address] [id number] [place] [address]- 3325 Sep, [facility] [place] [facility] [address] [id number] [place] [address]- 1709 Sep, [facility] [place] [facility] [address] [id number] [place] [address] 0824 Sep, [facility] [place] [facility] [address] [id number] [place] [address] 5932 August, [facility] [place] [facility] [address] [id number] [place] [address]- 4415 August, [facility] [place] [facility] [address] [id number] [place] [address]- 3010 Jul, [facility] [place] [facility] [address] [id number] [place] [address] Jul, [facility] [place] [facility] [address] [id number] [place] [address]- 7127 Jul, [facility] [place] [facility] [address] [id number] [place] [address]- 8044 Jul, [facility] [place] [facility] [address] [id number] [place] [address]- 6384 Jul, [facility] [place] [facility] [address] [id number] [place] [address]- 3716 Jul, [facility] [place] [facility] [address] [id number] [place] [address]- 9818 Jul, [facility] [place] [facility] [address] [id number] [place] [address]- 5408 Jul, [facility] [place] [facility] [address] [id number] [place] [address]- 2648 Jun, [facility] [place] [facility] [address] [id number] [place] [address]- 0202 Jun, [facility] [place] [facility] [address] [id number] [place] [address]- 8561 Jun, [facility] [place] [facility] [address] [id number] [place] [address]- 2324 Jun, [facility] [place] [facility] [address] [id number] [place] [address]- 5684 Jun, [facility] [place] [facility] [address] [id number] [place] [address]- 3386 May, [facility] [place] [facility] [address] [id number] [place] [address]- 7378 May, [facility] [place] [facility] [address] [id number] [place] [address]- 7500 May, [facility] [place] [facility] [address] [id number] [place] [address]- 2506 May, [facility] [place] [facility] [address] [id number] [place] [address]- 2596 May, 2013 [facility] [place] [facility] [address] [id number] [place] [address]- 2776 May, [facility] [place] [facility] [address] [id number] [place] [address]- 3496 May, 2013 [facility] [place] [facility] [address] [facility] [id number] [place] [address]- 7906 May, [facility] [place] [facility] [address] [id number] [place] [address]- 2546 May, [facility] [place] [facility] [address] [facility] [id number] [place] [address]- 1086 May, [facility] [place] [facility] [address] [facility] [id number] [place] [address] May, [facility] [place] [facility] [address] [id number] [place] [address] 6963 Apr, [facility] [place] [facility] [address] [facility] [id number] [place] [address]- 1864 Apr, [facility] [place] [facility] [address] [id number] [place] [address] Mar, [facility] [place] [facility] [address] [facility] [id number] [place] [address]- 2913 Mar, [facility] [place] [facility] [address] [facility] [id number] [place] [address] 2546 Mar, [facility] [place] [facility] [address] [facility] [id number] [place] [address] 2546 Mar, [facility] [place] [facility] [address] [facility] [id number] [place] [address]- 0096 Mar, [facility] [place] [facility] [address] [facility] [id number] [place] [address]- 8266 Jan, [facility] [place] [facility] [address] [facility] [id number] [place] [address]- 4873 Jan, [facility] [place] [facility] [address] [id number] [place] [address]- 4361 Jan, [facility] [place] [facility] [address] [id number] [place] [address] 1962 Jan, [facility] [place] [facility] [address] [id number] [place] [address]- 6740 Jan, [facility] [place] [facility] [address] [id number] [place] [address]- 4933 Jan, [facility] [place] [facility] [address] [id number] [place] [address]- 7941 Jan, [facility] [place] [facility] [address] [id number] [place] [address]- 7765 Jan, [facility] [place] [facility] [address] [id number] [place] [address]- 7932 Jan, [facility] [place] [facility] [address] [id number] [place] [address]- 4213 Jan, [facility] [place] [facility] [address] [id number] [place] [address]- 0452 Dec, [facility] [place] [facility] [address] [id number] [address]- 5311 Oct, [facility] [place] [facility] [address] [id number] [address]- 6971 Oct, [facility] [place] [facility] [address] [id number] [address]- 6308 Oct, [facility] [place] [facility] [address] [id number] [place] [address]- 2073 Oct, [facility] [place] [facility] [address] [id number] [place] [address]- 3831 Oct, [facility] [place] [facility] [address] [id number] [address]- 5803 Oct, [facility] [place] [facility] [address] [id number] [address]- 3112 Sep, [facility] [address] [id number] [place] [address]- 2657 August, [facility] [address] [id number] [place] [address]- 2495 August, [facility] [address] [id number] [place] [address]- 2786 August, [facility] [address] [id number] [place] [address]- 3060 August, [facility] [address] [id number] [place] [address]- 9272 August, [facility] [address] [id number] [place] [address]- 4207 May, [facility] [address] [id number] [place] [address]- 3412 Apr, [facility] [address] [id number] [place] [address]- 1303 Apr, [facility] [address] [id number] [place] [address]- 8763 Apr, [facility] [address] [id number] [place] [address]- 3675 Apr, [facility] [address] [id number], [place] [address]- [address] Apr, [facility] [address] [place] [id number] Mar, [facility] [address] [id number] [place] [address]- 9546 Mar, [facility] [address] [id number] [place] [address]- 9922 Mar, [facility] [address] [id number] [place] [address]- 9084 Mar, [facility] [address] [id number] [place] [address]- 5576 17 Mar, 2012 [facility] [address] [id number] [place] [address]- 4106 17 Mar, 2012 [facility] [place] [facility] [address] [id number] [place] [address]- 4746 13 Mar, 2012 [facility] [address] [id number] [place] [address]- 9236 13 Mar, 2012 [facility] [place] [facility] [address] [id number] [place] [address] 2546 13 Mar, 2012 [facility] [address] [id number] [place] [address]- 9216 13 Mar, 2012 [facility] [address] [id number] [place] [address]- 5516 12 Mar, 2012 [facility] [address] [id number] [place] [address]- 2726 12 Mar, 2012 [facility] [address] [id number] [place] [address]- 3303 10 Mar, 2012 [facility] [place] [facility] [address] [id number] [place] [address]- 7906 10 Mar, 2012 [facility] [address] [id number] [place] [address]- 1451 07 Mar, 2012 [facility] [place] [facility] [address] [id number] [place] [address]- 2536 07 Mar, 2012 [facility] [place] [facility] [address] [id number] [place] [address] 2546 06 Mar, 2012 [facility] [place] [facility] [address] [id number] [place] [address]- 4246 06 Mar, 2012 [facility] [place] [facility] [address] [id number] [place] [address]- 0536 05 Mar, 2012 [facility] [place] [facility] [address] [id number] [place] [address]- 2354 Mar, [facility] [place] [facility] [address] [id number] [place] [address]- 5157 Feb, [facility] [place] [facility] [address] [id number] [place] [address]- 3755 Feb, [facility] [place] [facility] [address] [id number] [place] [address]- 4920 Feb, [facility] [place] [facility] [address] [id number] [place] [address]- 7269 Feb, [facility] [place] [facility] [address] [id number] [place] [address]- 2222 Jan, [facility] [place] [facility] [address] [id number] [place] [address]- 5482 Jan, [facility] [place] [facility] [address] [id number] [place] [address]- 7679 Jan, [facility] [place] [facility] [address] [id number] [place] [address]- 7697 Jan, [facility] [place] [facility] [address] [id number] [place] [address]- 4748 Jan, [facility] [place] [facility] [address] [id number] [place] [address]- 1446 Jan, [facility] [place] [facility] [address] [facility] [id number] [place] [address]- 1800 Jan, [facility] [place] [facility] [address] [id number] [address]- 9328 Jan, [facility] [place] [facility] [address] [id number] [place] [address]- 3284 Jan, [facility] [place] [facility] [address] [id number] [place] [address]- 1311 27 Dec, 2011 [facility] [place] [facility] [address] [id number] [place] [address]- 9691 14 Dec, 2011 [facility] [place] [facility] [address] [id number] [address]- 3636 Dec, [facility] [place] [facility] [address] [id number] [place] [address]- 1915 Dec, [facility] [place] [facility] [address] [id number] [place] [address]- 0146 Dec, [facility] [place] [facility] [address] [id number] [place] [address]- 6375 Nov, [facility] [place] [facility] [address] [id number] [place] [address]- 8604 Nov, [facility] [place] [facility] [address] [id number] [place] [address]- 0936 Nov, [facility] [place] [facility] [address] [id number] [place] [address]- 6713 Nov, [facility] [place] [facility] [address] [id number] [place] [address]- 1558 Nov, [facility] [place] [facility] [address] [id number] [place] [address]- 8938 Nov, [facility] [place] [facility] [address] [id number] [place] [address]- 9173 Nov, [facility] [place] [facility] [address] [id number] [place] [address]- 1232 Nov, [facility] [place] [facility] [address] [id number] [place] [address]- 5678 Nov, [facility] [place] [facility] [address] [id number] [place] [address]- 7014 Oct, [facility] [place] [facility] [address] [id number] [place] [address]- 4432 Oct, [facility] [place] [facility] [address] [id number] [place] [address]- 4432 Sep, [facility] [place] [facility] [address] [id number] [place] [address]- 4226 Sep, [facility] [place] [facility] [address] [id number] [place] [address]- 5710 05 Sep, 2011 [facility] [address] [id number] [place] [address]- 8842 14 Aug, 2011 [facility] [place] [facility] [address] [id number] [place] [address]- 2826 30 Jul, 2011 [facility] [address] [id number] [place] [address]- 7184 27 Jul, 2011 [facility] [address] [id number] [place] [address]- 7594 27 Jul, 2011 [facility] [address] [id number] [place] [address]- 1015 18 Jul, 2011 [facility] [address] [id number] [place] [address]- 9245 16 Jul, 2011 [facility] [address] [id number] [place] [address]- 5971 16 Jul, 2011 [facility] [address] [id number] [place] [address]- 4384 16 Jul, 2011 [facility] [address] [id number] [place] [address]- 1019 14 Jul, 2011 [facility] [address] [id number] [place] [address]- 1919 12 Jul, 2011 [facility] [address] [id number] [place] [address]- 3524 19 Jun, 2011 [facility] [address] [id number] [place] [address]- 7601 18 Jun, 2011 [facility] [place] [facility] [address] [id number] [place] [address]- 3640 15 Jun, 2011 [facility] [place] [facility] [address] [id number] [place] [address]- 3886 12 Jun, 2011 [facility] [place] [facility] [address] [id number] [place] [address]- 9606 08 Jun, 2011 [facility] [address] [id number] [place] [address]- 5154 08 Jun, 2011 [facility] [place] [facility] [address] [id number] [place] [address]- 2976 Jun, [facility] [place] [facility] [address] [id number] [place] [address]- 2132 Jun, [facility] [place] [facility] [address] [id number] [place] [address]- 3356 May, [facility] [place] [facility] [address] [id number] [place] [address]- 2284 May, [facility] [place] [facility] [address] [id number] [place] [address]- 5752 May, [facility] [place] [facility] [address] [id number] [place] [address]- 3865 Apr, [facility] [place] [facility] [address] [id number] [place] [address]- 3916 Apr, [facility] [place] [facility] [address] [id number] [place] [address]- 5571 Apr, [facility] [place] [facility] [address] [id number] [place] [address]- 6361 Mar, [facility] [place] [facility] [address] [id number] [place] [address]- 4729 Mar, [facility] [place] [facility] [address] [id number] [place] [address]- 7889 15 Mar, 2011 [facility] [place] [facility] [address] [id number] [place] [address]- 9985 13 Mar, 2011 [facility] [place] [facility] [address] [id number] [place] [address]- 3130 13 Mar, 2011 [facility] [place] [facility] [address] [id number] [place] [address]- 0488 12 Mar, 2011 [facility] [place] [facility] [address] [id number] [place] 1845 12 Mar, 2011 [facility] [place] [facility] [address] [id number] [place] 5862 Mar, [facility] [place] [facility] [address] [id number] [place] 0683 Mar, [facility] [place] [facility] [address] [id number] [place] [address]- 0706 Mar, [facility] [place] [facility] [address] [id number] [place] [address]- 3156 Mar, [facility] [place] [facility] [address] [id number] [place] 0111 Mar, [facility] [place] [facility] [address] [id number] [place] [address]- 1226 Mar, [facility] [place] [facility] [address] [facility] [id number] [place] [address]- 3240 Mar, [facility] [place] [facility] [address] [id number] [place] [address]- 1025 Feb, [facility] [place] [facility] [address] [id number] [place] [address]- 6939 Feb, [facility] [place] [facility] [address] [facility] [id number] [place] [address]- 3237 Feb, [facility] [place] [facility] [address] [id number] [place] [address]- 8894 Jan, [facility] [place] [facility] [address] [id number] [place] [address] Jan, [facility] [place] [facility] [address] [id number] [place] [address] Oct, [facility] [place] [facility] [address] [facility] [id number] [place] [address] Sep, [facility] [place] [facility] [address] [id number] [place] [address] Mar, [facility] [address] [facility] [id number] [address] Mar, [facility] [address] [facility] [id number] [address] Feb, [facility] [address] [facility] [id number] [address] Feb, [facility] [address] [facility] [id number] [address] Jan, [facility] [address] [facility] [id number] [address] Jan, [facility] [address] [facility] [id number] [place] [address] Mar, [facility] [id number] [address] Feb, [facility] [id number] [place] [address] Feb, [facility] [id number] [address] Feb, [facility] [id number] [address] Feb, [facility] [id number] [address] Jan, [facility] [id number] [address] Dec, [facility] [address] [id number] [address] Nov, IMMUNIZATIONS No Known Immunizations SOCIAL HISTORY [...] (GENERAL) HISTORY Type Description Date Hospitalization History [facility] March 2015
--- OUTSIDE RECORDS SUMMARY | 2017-10-27 10:52 | XMS REPORT ---
Author Author JOLLY DELANEY [facility] Address [address] [place] [address] Care Team Providers Care Shale Planer Operator Helper Name Role Phone JOLLY DELANEY Unavailable PROBLEMS Type Condition ICD9-CM Code PEG36-JL Code Onset Dates Condition Status SNOMED Code Problem Hyperlipidemia, unspecified hyperlipidemia type E78.5 Active 87698374 Problem Long-term insulin use Z79.4 Active 601801031 Problem Abnormal carotid ultrasound R93.8 Active 864191879 Problem Type 2 diabetes mellitus with complication E11.8 Active 84851239 Problem Positive TB test R76.11 Active 419913336 Problem Vascular dementia with behavior disturbance F01.51 Active 482887735 Problem PVD (peripheral vascular disease) I73.9 Active 871324648 Problem Pain R52 Active 45750650 Problem Other chronic osteomyelitis of left foot M86.672 Active 155554770 Problem Nicotine dependence, unspecified, uncomplicated F17.200 Active 828822337 Problem Peripheral vascular disease due to secondary diabetes E13.51 Active 2161770 Problem Nonintractable epilepsy without status epilepticus, unspecified epilepsy type G40.909 Active 138357848 Problem Recurrent major depressive disorder, remission status unspecified F33.9 Active 55877885 Problem Anxiety F41.9 Active 17472200 Problem Generalized anxiety disorder F41.1 Active 90008408 Problem Vascular dementia F01.50 Active 582043022 Problem Pseudobulbar affect F48.2 Active 57879980 Problem Coronary artery disease involving quechan coronary artery of quechan heart without angina pectoris I25.10 Active 4459516812213 Problem Gastroesophageal reflux disease without esophagitis K21.9 Active 841076473 Problem Cerebrovascular accident (CVA) due to other mechanism I63.8 Active 392907103 Problem Pulmonary emphysema, unspecified emphysema type J43.9 Active 37026883 Problem Neuropathy G62.9 Active 266516489 Problem Depression F32.9 Active 76549822 Problem Essential hypertension I10 Active 82526288 Problem Acquired hypothyroidism E03.9 Active 379914713 ALLERGIES No Information ENCOUNTERS Encounter Location Date Diagnosis [facility] [address] [place] [id number] August, Type 2 diabetes mellitus with complication E11.8 ; Vascular dementia with behavior disturbance F01.51 ; Long-term insulin use Z79.4 and Nicotine dependence, unspecified, uncomplicated F17.200 [facility] [place] [address] [address] August, Generalized anxiety disorder F41.1 [facility] [place] [id number] [place] [address] 91247- 1908 Jul, Generalized anxiety disorder F41.1 [facility] [id number] [place] [address] [id number] Jun, Generalized anxiety disorder F41.1 [facility] [id number] [place] [address] [id number] Jun, [facility] [id number] [place] [address] [id number] May, [facility] [place] [id number] [place] [address] 98119- 8098 May, [facility] [id number] [place] [address] [id number] May, Generalized anxiety disorder F41.1 [facility] [place] [address] [address] Apr, [facility] [address] [place] [id number] Apr, Other chronic osteomyelitis of left foot M86.672 ; Type 2 diabetes mellitus with complication E11.8 ; Vascular dementia F01.50 ; Long-term insulin use Z79.4 ; PVD (peripheral vascular disease) I73.9 and Nicotine abuse 305.1 [facility] [place] [address] [address] 35[address] Apr, [facility] [id number] [place] [address] [id number] Apr, [place] [id number] [place] [address] 48430- 4230 Apr, Pain R52 and Generalized anxiety disorder F41.1 [facility] [place] [id number] [place] [address] 47334- 1582 Mar, [facility] [place] [id number] [place] [address] 99121- 9126 Mar, Pain R52 and Generalized anxiety disorder F41.1 [facility] [address] [place] [id number] Feb, Depression F32.9 ; Type 2 diabetes mellitus with complication E11.8 and Nicotine dependence, unspecified, uncomplicated F17.200 [facility] [place] [id number] [place] [address] 17920- 2732 Feb, Generalized anxiety disorder F41.1 and Pain R52 [facility] [place] [id number] [place] [address] 17171- 9668 Feb, [facility] [place] [id number] [place] [address] 39460- 2045 Jan, [facility] [place] [id number] [place] [address] 20593- 7623 Jan, Generalized anxiety disorder F41.1 and Pain R52 [facility] [place] [id number] [place] [address] 59138- 7057 Jan, [facility] [id number] [place] [address] [id number] Dec, Generalized anxiety disorder F41.1 and Pain R52 [facility] [address] [place] [id number] Dec, Vascular dementia F01.50 ; Pain of left leg M79.605 ; Pain in right leg M79.604 and Type 2 diabetes mellitus with complication E11.8 [facility] [place] [id number] [place] [address] 78350- 3644 11 Dec, 2016 Pain R52 [facility] [place] [id number] [place] [address] 42335- 7821 Dec, [facility] [place] [address] [facility] [id number] [place] [address] 90374- 0972 Nov, [facility] [place] [address] [facility] [id number] [place] [address] 50584- 5826 Nov, Pain R52 and Generalized anxiety disorder F41.1 [facility] [address] [place] [id number] Nov, Depression F32.9 ; Vascular dementia with behavior disturbance F01.51 and Anxiety F41.9 [facility] [place] [address] [facility] [id number] [place] [address] 44564- 6685 Nov, Pain R52 and Generalized anxiety disorder F41.1 [facility] [place] [id number] [place] [address] 16852- 7955 Oct, Generalized anxiety disorder F41.1 [facility] [place] [id number] [place] [address] 41800- 5106 Oct, Pain R52 [facility] [place] [address] [facility] [id number] [place] [address] 35844- 0171 14 Sep, 2016 [facility] [address] [place] [id number] Sep, Generalized anxiety disorder F41.1 [facility] [place] [address] [address] 5292 Sep, Pain R52 [facility] [place] [id number] [place] [address] 21638- 0276 Sep, Generalized anxiety disorder F41.1 [facility] [place] [address] [facility] [id number] [address] 2546 August, [facility] [place] [id number] [place] [address] 89687- 9296 August, [facility] [place] [address] [facility] [id number] [address] August, Pain R52 [facility] [place] [id number] [place] [address] 70466- 3932 August, Generalized anxiety disorder F41.1 [facility] [id number] [place] [address] [id number] August, Generalized anxiety disorder F41.1 [facility] [place] [id number] [place] [address] 398228- 4967 Jul, Pain R52 [facility] [place] [id number] [place] [address] 59205- 0751 Jul, [facility] [id number] [place] [address] [id number] Jul, [facility] [place] [id number] [place] [address] 07675- 4488 Jun, [facility] [id number] [place] [address] [id number] Jun, Depression F32.9 [facility] [place] [id number] [place] [address] 78119- 2164 Jun, Pain R52 [facility] [place] [id number] [place] [address] 92736- 2478 Jun, [facility] [address] [place] [id number] Jun, Vascular dementia F01.50 and Depression F32.9 [facility] [place] [id number] [place] [address] 33834- 4448 May, Pain R52 [facility] [place] [id number] [place] [address] 27158- 3054 15 May, 2016 [facility] [place] [id number] [place] [address] 78052- 2903 May, Pseudobulbar affect F48.2 [facility] [place] [id number] [place] [address] 60578- 6466 09 May, 2016 [facility] [place] [id number] [place] [address] 96601- 7430 08 May, 2016 PVD (peripheral vascular disease) I73.9 [facility] [place] [address] [address]- 8224 May, Vascular dementia with behavior disturbance F01.51 [facility] [place] [id number] [place] [address] 01851- 4187 May, Vascular dementia with behavior disturbance F01.51 [facility] [place] [id number] [place] [address] 64328- 3441 Apr, [facility] [place] [id number] [place] [address] 56428- 6092 Apr, Pain R52 [facility] [address] [place] [id number] Apr, Generalized anxiety disorder F41.1 ; PVD (peripheral vascular disease) I73.9 and Type 2 diabetes mellitus with complication E11.8 [place] [id number] [place] [address] 33469- 3425 Apr, Vascular dementia with behavior disturbance F01.51 [facility] [place] [id number] [place] [address] 90822- 3359 Apr, [facility] [place] [id number] [place] [address] 04140- 6079 Apr, Vascular dementia with behavior disturbance F01.51 [facility] [place] [id number] [place] [address] 92933- 3351 Apr, [facility] [id number] [place] [address] [id number] Mar, [facility] [place] [id number] [place] [address] 56781- 2275 Mar, Type 2 diabetes mellitus with complication E11.8 ; Vascular dementia with behavior disturbance F01.51 and Depression F32.9 [facility] [place] [id number] [place] [address] 02919- 7132 Mar, [facility] [place] [id number] [place] [address] 48320- 0700 Feb, [facility] [place] [address] [address]- 3191 Feb, Viral illness B34.9 [facility] [place] [id number] [place] [address] 50754- 3243 Jan, Diabetes 250.00 [facility] [place] [id number] [place] [address] 86491- 7234 Jan, [facility] [place] [id number] [place] [address] 63857- 8059 Jan, [facility] [place] [id number] [place] [address] 63284- 7615 Jan, Omer [facility] [address] [place] [id number] Jan, Vascular dementia with behavior disturbance F01.51 and Type 2 diabetes mellitus with complication E11.8 [facility] [place] [id number] [place] [address] 67263- 8136 Jan, Pain R52 [facility] [place] [id number] [place] [address] 73434- 6221 Jan, Pain R52 [facility] [place] [id number] [place] [address] 01670- 3297 Dec, [facility] [place] [id number] [place] [address] 60422- 9575 Nov, [facility] [address] [place] [id number] Nov, Type 2 diabetes mellitus with complication E11.8 [facility] [place] [address] [address]- 9088 Nov, [facility] [place] [id number] [place] [address] 73508- 7722 Oct, [facility] [place] [address] [address]- 0617 Oct, [facility] [place] [id number] [place] [address] 01294- 2391 Oct, Vascular dementia with behavior disturbance F01.51 and Type 2 diabetes mellitus with complication E11.8 [facility] [place] [id number] [place] [address] 38063- 0597 August, Type 2 diabetes mellitus with complication E11.8 and Vascular dementia with behavior disturbance F01.51 [facility] [place] [id number] [place] [address] 85209- 6350 August, Vascular dementia F01.50 [facility] [place] [id number] [place] [address] 36748- 8293 August, Vascular dementia with behavior disturbance F01.51 [facility] [place] [id number] [place] [address] 02848- 7220 Jul, Vascular dementia with behavior disturbance F01.51 [place] [id number] [place] [address] 71363- 5114 Jun, Vascular dementia F01.50 [facility] [place] [id number] [place] [address] 67211- 5781 Jun, Type 2 diabetes mellitus with complication E11.8 ; Long- term insulin use Z79.4 and Vascular dementia with behavior disturbance F01.51 [facility] [place] [id number] [place] [address] 61486- 6625 Jun, Vascular dementia with behavior disturbance F01.51 [facility] [place] [id number] [place] [address] 05882- 4689 Jun, Vascular dementia F01.50 [facility] [place] [id number] [place] [address] 16733- 7887 Apr, [facility] [place] [id number] [place] [address] 36768- 4847 Apr, [facility] [place] [id number] [place] [address] 24197- 8655 Apr, [facility] [place] [id number] [place] [address] 40186- 8770 Apr, Type 2 diabetes mellitus with complication E11.8 ; Depression F32.9 and Long-term insulin use Z79.4 [facility] [place] [address] [address]- 2325 Mar, [facility] [address] [place] [id number] Mar, Depression F32.9 ; Type 2 diabetes mellitus with complication E11.8 and Long-term insulin use Z79.4 [facility] [place] [address] [place] [address] 66149- 4022 Feb, [facility] [place] [id number] [place] [address] 66357- 5318 Feb, Hyperthyroidism E05.90 [facility] [place] [id number] [place] [address] 42772- 0680 Feb, Hyperthyroidism E05.90 [facility] [place] [id number] [place] [address] 91330- 7418 Feb, [facility] [place] [address] [address]- 1511 Jan, [facility] [place] [id number] [place] [address] 23991- 1958 Dec, Nicotine addiction 305.1 [facility] [place] [address] [address]- 4101 Oct, Nicotine abuse 305.1 [facility] [place] [id number] [place] [address] 39471- 2910 Oct, [facility] [place] [address] [address]- 7298 August, [facility] [address] [place] [id number] August, History of drug abuse 305.93 and Diabetes 250.00 [facility] [place] [address] [address]- 5734 Jul, [facility] [place] [id number] [place] [address]- 3124 Jul, [facility] [address] [id number] [place] [address]- 6493 Jun, [facility] [place] [facility] [address] [id number] [place] [address]- 8527 Jun, [facility] [address] [id number] [place] [address]- 5705 Jun, [facility] [place] [facility] [address] [id number] [place] [address]- 6975 Jun, [facility] [address] [id number] [place] [address]- 0491 Jun, [facility] [address] [id number] [place] [address]- 0816 Jun, [facility] [address] [id number] [place] [address]- 7211 May, [facility] [address] [id number] [place] [address]- 2433 May, [facility] [address] [facility] [id number] [place] [address]- 6737 May, [facility] [address] [facility] [id number] [place] [address]- 4664 May, [facility] [address] [id number] [address]- 1816 May, [facility] [address] [id number] [place] [address]- 3034 Apr, [facility] [address] [facility] [id number] [place] [address]- 1767 Apr, [facility] [address] [place] [id number] Apr, [facility] [address] [facility] [id number] [place] [address]- 9767 Apr, [facility] [place] [facility] [address] [id number] [place] [address]- 0959 Apr, [facility] [place] [facility] [address] [id number] [place] [address]- 6646 Apr, [facility] [place] [facility] [address] [id number] [place] [address]- 3555 Apr, [facility] [place] [facility] [address] [id number] [place] [address]- 6487 Apr, [facility] [place] [facility] [address] [id number] [place] [address]- 9505 Mar, [facility] [place] [facility] [address] [id number] [place] [address]- 4078 Mar, [facility] [place] [facility] [address] [id number] [place] 3021 Mar, [facility] [place] [facility] [address] [id number] [place] [address]- 0449 Mar, [facility] [place] [facility] [address] [id number] [place] [address]- 0653 Mar, [facility] [place] [facility] [address] [id number] [place] [address] Mar, [facility] [place] [facility] [address] [id number] [place] [address] Mar, [facility] [place] [facility] [address] [id number] [place] [address] Mar, [facility] [place] [facility] [address] [id number] [place] [address] Feb, [facility] [place] [facility] [address] [id number] [place] [address] Feb, [facility] [place] [facility] [address] [id number] [place] [address] Feb, [facility] [place] [facility] [address] [id number] [place] [address] Feb, [facility] [place] [facility] [address] [id number] [place] [address] Feb, [facility] [address] [facility] [place] [id number] Feb, [facility] [place] [facility] [address] [id number] [place] [address] Feb, [facility] [place] [facility] [address] [id number] [place] [address] Feb, [facility] [place] [facility] [address] [id number] [place] [address] Feb, [facility] [place] [facility] [address] [id number] [place] [address] Feb, [facility] [place] [facility] [address] [id number] [place] [address] Jan, [facility] [place] [facility] [address] [id number] [place] [address] 30 Jan, 2014 [facility] [place] [facility] [address] [id number] [place] [address] Jan, [facility] [place] [facility] [address] [id number] [place] [address] Jan, [facility] [place] [facility] [address] [id number] [place] [address] 16 Jan, 2014 [facility] [place] [facility] [address] [id number] [address] 16 Jan, 2014 [facility] [place] [facility] [address] [id number] [place] [address] 15 Jan, 2014 [facility] [place] [facility] [address] [id number] [place] [address] 13 Jan, 2014 [facility] [place] [facility] [address] [id number] [place] [address] Jan, [facility] [place] [facility] [address] [id number] [place] [address] 13 Jan, 2013 [facility] [place] [facility] [address] [id number] [place] [address] 13 Jan, 2013 [facility] [place] [facility] [address] [id number] [place] [address] 1791 Jan, 2013 [facility] [place] [facility] [address] [id number] [place] [address] 0137 Jan, 2013 [facility] [place] [facility] [address] [id number] [place] [address]- 5911 08 Jan, 2013 [facility] [place] [facility] [address] [id number] [place] [address] 8239 Jan, 2013 [facility] [place] [facility] [address] [id number] [place] [address]- 8051 Jan, 2013 [facility] [place] [facility] [address] [id number] [place] [address]- 2428 Jan, 2013 [facility] [place] [facility] [address] [id number] [place] [address] 49[address] 19 Sep, 2013 [facility] [place] [facility] [address] [id number] [place] [address] 4899 19 Sep, 2013 [facility] [place] [facility] [address] [id number] [place] [address]- 1504 11 Sep, 2013 [facility] [place] [facility] [address] [id number] [place] [address]- 0618 11 Sep, 2013 [facility] [place] [facility] [address] [id number] [address] 09 Sep, 2013 [facility] [place] [facility] [address] [id number] [place] [address]- 9708 09 Sep, 2013 [facility] [place] [facility] [address] [id number] [place] [address]- 9458 08 Sep, 2013 [facility] [place] [facility] [address] [id number] [place] [address] 4017 08 Sep, 2013 [facility] [place] [facility] [address] [id number] [place] [address]- 7869 08 Dec, 2013 [facility] [place] [facility] [address] [id number] [place] [address]- 2006 08 Dec, 2013 [facility] [place] [facility] [address] [id number] [place] [address] 2546 05 Dec, 2013 [facility] [place] [facility] [address] [id number] [place] [address] 2546 05 Dec, 2013 [facility] [place] [facility] [address] [id number] [place] [address] 2548 Dec, 2013 [facility] [place] [facility] [address] [id number] [place] [address]- 4902 Dec, 2013 [facility] [place] [facility] [address] [id number] [place] [address]- 0395 Nov, [facility] [place] [facility] [address] [id number] [place] [address]- 8373 Nov, [facility] [place] [facility] [address] [id number] [place] [address]- 6778 Nov, [facility] [place] [facility] [address] [id number] [place] [address]- 5561 Nov, [facility] [place] [facility] [address] [id number] [place] [address]- 8257 Nov, [facility] [place] [facility] [address] [id number] [place] [address]- 2547 Nov, [facility] [place] [facility] [address] [id number] [place] [address] 2549 Nov, [facility] [place] [facility] [address] [id number] [place] [address]- 254 Nov, [facility] [place] [facility] [address] [id number] [place] [address]- 2547 Nov, [facility] [place] [facility] [address] [id number] [place] [address]- 7105 Nov, [facility] [place] [facility] [address] [id number] [place] [address]- 2362 Nov, [facility] [place] [facility] [address] [id number] [place] [address]- 4034 Nov, [facility] [place] [facility] [address] [id number] [place] [address] Nov, [facility] [place] [facility] [address] [id number] [place] [address]- 9661 Nov, [facility] [place] [facility] [address] [id number] [place] [address]- 3928 Oct, [facility] [place] [facility] [address] [id number] [place] [address]- 8994 Oct, [facility] [place] [facility] [address] [id number] [place] [address]- 7771 Oct, [facility] [place] [facility] [address] [id number] [place] [address]- 6095 Oct, [facility] [place] [facility] [address] [id number] [place] [address]- 6865 Oct, [facility] [place] [facility] [address] [id number] [place] [address]- 4944 Oct, [facility] [place] [facility] [address] [id number] [place] [address]- 5570 Oct, [facility] [place] [facility] [address] [id number] [place] [address]- 5128 Oct, [facility] [place] [facility] [address] [id number] [place] [address]- 9767 Oct, [facility] [place] [facility] [address] [id number] [place] [address]- 4168 Oct, [facility] [place] [facility] [address] [id number] [place] [address]- 3327 Oct, [facility] [place] [facility] [address] [id number] [place] [address]- 7385 Oct, [facility] [place] [facility] [address] [id number] [place] [address]- 5403 Oct, 2013 [facility] [place] [facility] [address] [id number] [place] [address]- 0076 Oct, 2013 [facility] [place] [facility] [address] [id number] [place] [address]- 8866 Oct, 2013 [facility] [place] [facility] [address] [id number] [place] [address]- 8643 Oct, 2013 [facility] [place] [facility] [address] [id number] [place] [address]- 5283 Oct, [facility] [place] [facility] [address] [id number] [place] [address]- 8376 Oct, [facility] [place] [facility] [address] [id number] [place] [address]- 8771 Oct, [facility] [place] [facility] [address] [id number] [place] [address]- 1780 Oct, [facility] [place] [facility] [address] [id number] [place] [address]- 6456 Sep, [facility] [place] [facility] [address] [id number] [place] [address]- 7474 Sep, [facility] [place] [facility] [address] [id number] [place] [address]- 2534 Sep, [facility] [place] [facility] [address] [id number] [place] [address]- 2640 Sep, [facility] [place] [facility] [address] [id number] [place] [address]- 6035 Sep, [facility] [place] [facility] [address] [id number] [place] [address]- 3536 Sep, [facility] [place] [facility] [address] [id number] [place] [address]- 0757 August, [facility] [place] [facility] [address] [id number] [place] [address]- 7426 August, [facility] [place] [facility] [address] [id number] [place] [address]- 6921 Jul, [facility] [place] [facility] [address] [id number] [place] [address]- 4558 Jul, [facility] [place] [facility] [address] [id number] [place] [address]- 5182 Jul, [facility] [place] [facility] [address] [id number] [place] [address]- 0766 Jul, [facility] [place] [facility] [address] [id number] [place] [address]- 4107 Jul, [facility] [place] [facility] [address] [id number] [place] [address]- 9406 Jul, [facility] [place] [facility] [address] [id number] [place] [address]- 4264 Jul, [facility] [place] [facility] [address] [id number] [place] [address]- 8781 Jul, [facility] [place] [facility] [address] [id number] [place] [address]- 9588 Jun, [facility] [place] [facility] [address] [id number] [place] [address]- 9642 Jun, [facility] [place] [facility] [address] [id number] [place] [address]- 8786 Jun, [facility] [place] [facility] [address] [id number] [place] [address]- 2547 Jun, [facility] [place] [facility] [address] [id number] [place] [address]- 3276 Jun, [facility] [place] [facility] [address] [id number] [place] [address]- 8038 May, [facility] [place] [facility] [address] [id number] [place] [address]- 5759 May, [facility] [place] [facility] [address] [id number] [place] [address]- 3366 May, [facility] [place] [facility] [address] [id number] [place] [address]- 1406 May, [facility] [place] [facility] [address] [facility] [id number] [place] [address]- 3216 May, [facility] [place] [facility] [address] [id number] [place] [address]- 6326 May, [facility] [place] [facility] [address] [id number] [place] [address]- 5536 May, [facility] [place] [facility] [address] [facility] [id number] [place] [address]- 6386 May, [facility] [place] [facility] [address] [facility] [id number] [place] [address]- 7196 May, [facility] [place] [facility] [address] [facility] [id number] [place] [address]- 6898 May, [facility] [place] [facility] [address] [facility] [id number] [place] [address]- 0493 May, [facility] [place] [facility] [address] [facility] [id number] [place] [address]- 8632 Apr, [facility] [place] [facility] [address] [facility] [id number] [place] [address]- 4264 Apr, [facility] [place] [facility] [address] [facility] [id number] [place] [address]- 2546 Mar, [facility] [place] [facility] [address] [id number] [place] [address]- 8226 Mar, [facility] [place] [facility] [address] [facility] [id number] [place] [address] 2546 Mar, [facility] [place] [facility] [address] [facility] [id number] [place] [address]- 8369 Mar, [facility] [place] [facility] [address] [id number] [place] [address]- 1058 Mar, [facility] [place] [facility] [address] [id number] [place] [address]- 8952 Jan, [facility] [place] [facility] [address] [id number] [place] Jan, [facility] [place] [facility] [address] [id number] [place] [address]- 9727 Jan, [facility] [place] [facility] [address] [id number] [place] Jan, [facility] [place] [facility] [address] [id number] [place]597 Jan, [facility] [place] [facility] [address] [id number] [place] [address]- 2246 Jan, [facility] [place] [facility] [address] [id number] [place] [address]- 1454 Jan, [facility] [place] [facility] [address] [id number] [place] 3702 Jan, [facility] [place] [facility] [address] [id number] [place] [address]- 4250 Jan, [facility] [place] [facility] [address] [id number] [place] [address]- 0320 Jan, [facility] [place] [facility] [address] [id number] [place] [address]- 2278 Dec, [facility] [place] [facility] [address] [id number] [place] [address]- 5034 Oct, [facility] [place] [facility] [address] [id number] [place] [address]- 5963 Oct, [facility] [place] [facility] [address] [id number] [place] [address]- 9681 Oct, [facility] [place] [facility] [address] [id number] [place] [address]- 6742 Oct, [facility] [place] [address] [id number] [place] [address]- 0765 Oct, [facility] [place] [address] [id number] [place] [address]- 1075 Oct, [facility] [place] [address] [id number] [place] [address]- 0745 Sep, [facility] [place] [address] [id number] [place] [address]- 6205 August, [facility] [place] [address] [id number] [place] [address]- 3539 August, [facility] [place] [address] [id number] [place] [address]- 6597 August, [facility] [place] [address] [id number] [place] [address]- 2568 August, [facility] [place] [address] [id number] [place] [address]- 8282 August, [facility] [place] [address] [id number] [place] [address]- 4250 May, [facility] [place] [address] [id number] [place] [address]- 4657 Apr, [facility] [place] [address] [id number] [place] [address]- 6431 Apr, [facility] [place] [address] [id number] [place] [address]- 6646 Apr, [facility] [place] [address] [id number] [place] [address]- 1351 Apr, [facility] [place] [address] [id number] [place] [address]- 5463 Apr, [facility] [address] [place] [id number] Mar, [facility] [place] [address] [id number] [place] [address]- 7311 31 Mar, 2012 [facility] [address] [id number] [place] [address]- 6716 19 Mar, 2012 [facility] [address] [id number] [place] [address]- 4956 19 Mar, 2012 [facility] [address] [id number] [place] [address]- 8186 17 Mar, 2012 [facility] [address] [id number] [place] [address]- 2676 17 Mar, 2012 [facility] [address] [id number] [place] [address]- 6646 13 Mar, 2012 [facility] [address] [id number] [place] [address]- 0994 13 Mar, 2012 [facility] [address] [id number] [place] [address]- 0008 13 Mar, 2012 [facility] [address] [id number] [place] [address]- 5324 13 Mar, 2012 [facility] [address] [id number] [place] [address]- 2942 12 Mar, 2012 [facility] [address] [id number] [place] [address]- 0563 12 Mar, 2012 [facility] [address] [id number] [place] [address]- 4616 10 Mar, 2012 [facility] [address] [id number] [place] [address]- 4240 10 Mar, 2012 [facility] [address] [id number] [place] [address]- 3637 07 Mar, 2012 [facility] [address] [id number] [place] [address]- 7016 07 Mar, 2012 [facility] [address] [id number] [place] [address]- 9483 Mar, [facility] [place] [facility] [address] [id number] [place] [address]- 8562 Mar, [facility] [place] [facility] [address] [id number] [place] [address]- 5466 Mar, [facility] [place] [facility] [address] [id number] [place]604 Mar, [facility] [place] [facility] [address] [id number] [place] [address]- 0057 Feb, [facility] [place] [facility] [address] [id number] [place] [address]- 7664 Feb, [facility] [place] [facility] [address] [id number] [place] [address]- 9179 Feb, [facility] [place] [facility] [address] [facility] [id number] [place] [address]- 3841 Feb, [facility] [place] [facility] [address] [id number] [place] [address]- 8501 Jan, [facility] [place] [facility] [address] [id number] [place] [address]- 2919 Jan, [facility] [place] [facility] [address] [id number] [place] [address]- 1146 Jan, [facility] [place] [facility] [address] [facility] [id number] [place] [address]- 9217 Jan, [facility] [place] [facility] [address] [id number] [place] [address]- 4745 Jan, [facility] [place] [facility] [address] [id number] [place] [address]- 4124 Jan, [facility] [place] [facility] [address] [id number] [place] [address]- 6871 Jan, [facility] [place] [facility] [address] [facility] [id number] 7886 Jan, [facility] [place] [facility] [address] [id number] [place] [address]- 8294 Jan, [facility] [place] [facility] [address] [id number] [place] [address]- 4869 27 Dec, 2011 [facility] [place] [facility] [address] [id number] [place] [address]- 6546 14 Dec, 2011 [facility] [place] [facility] [address] [id number] [place] [address]- 4306 12 Dec, 2011 [facility] [place] [facility] [address] [id number] [place] [address]- 1139 Dec, [facility] [place] [facility] [address] [id number] [place] [address]- 1053 Dec, [facility] [place] [facility] [address] [id number] [place] [address]- 4905 Nov, [facility] [place] [facility] [address] [id number] [place] [address]- 9724 Nov, [facility] [place] [facility] [address] [id number] [place] [address]- 1616 Nov, [facility] [place] [facility] [address] [id number] [place] [address]- 3660 Nov, [facility] [place] [facility] [address] [id number] [place] [address]- 7816 Nov, [facility] [place] [facility] [address] [id number] [place] [address]- 2189 Nov, [facility] [place] [facility] [address] [id number] [place] [address]- 4433 Nov, [facility] [place] [facility] [address] [id number] [place] [address]- 0473 Nov, [facility] [place] [facility] [address] [id number] [place] [address]- 9668 Nov, [facility] [place] [facility] [address] [id number] [place] [address]- 5911 Oct, [facility] [place] [facility] [address] [id number] [place] [address]- 4924 13 Oct, 2011 [facility] [address] [id number] [place] [address]- 6917 14 Sep, 2011 [facility] [place] [facility] [address] [id number] [place] [address]- 9696 13 Sep, 2011 [facility] [address] [id number] [place] [address]- 3988 05 Sep, 2011 [facility] [place] [facility] [address] [id number] [place] [address]- 8748 14 Aug, 2011 [facility] [address] [id number] [place] [address]- 4755 30 Jul, 2011 [facility] [place] [facility] [address] [id number] [place] [address]- 4636 27 Jul, 2011 [facility] [place] [facility] [address] [id number] [place] [address]- 4652 27 Jul, 2011 [facility] [address] [id number] [place] [address]- 2850 18 Jul, 2011 [facility] [place] [facility] [address] [id number] [place] [address]- 6386 16 Jul, 2011 [facility] [address] [id number] [place] [address] 16 Jul, 2011 [facility] [place] [facility] [address] [id number] [place] [address] 16 Jul, 2011 [facility] [place] [facility] [address] [id number] [place] [address] 14 Jul, 2011 [facility] [place] [facility] [address] [id number] [place] [address] 80[address] 12 Jul, 2011 [facility] [place] [facility] [address] [id number] [place] [address] 19 Jun, 2011 [facility] [place] [facility] [address] [id number] [place] [address] Jun, [facility] [address] [id number] [place] [address] 15 Jun, 2011 [facility] [place] [facility] [address] [id number] [place] [address] Jun, [facility] [place] [facility] [address] [id number] [place] [address] Jun, [facility] [place] [facility] [address] [id number] [place] [address] Jun, [facility] [place] [facility] [address] [id number] [place] [address] Jun, [facility] [place] [facility] [address] [id number] [place] [address] 9061 Jun, [facility] [place] [facility] [address] [id number] [place] [address] 8080 May, [facility] [place] [facility] [address] [id number] [place] [address] 8653 May, [facility] [place] [facility] [address] [id number] [place] [address] 98[address] May, [facility] [place] [facility] [address] [id number] [place] [address] 7564 Apr, [facility] [place] [facility] [address] [id number] [place] [address] 8927 Apr, [facility] [place] [facility] [address] [id number] [address] Apr, [facility] [place] [facility] [address] [id number] [place] [address] 67[address] Mar, [facility] [place] [facility] [address] [id number] [place] [address] 1660 Mar, [facility] [place] [facility] [address] [facility] [id number] [place] [address] 5842 Mar, [facility] [place] [facility] [address] [id number] [place] [address] 6415 13 Mar, 2011 [facility] [address] [id number] [place] [address] 4495 13 Mar, 2011 [facility] [place] [facility] [address] [id number] [place] [address] 8616 12 Mar, 2011 [facility] [place] [facility] [address] [id number] [place] [address] 12 Mar, 2011 [facility] [place] [facility] [address] [id number] [place] [address] 2635 12 Mar, 2011 [facility] [place] [facility] [address] [id number] [place] [address] 30[address] 08 Mar, 2011 [facility] [place] [facility] [address] [id number] [place] [address] 47[address] Mar, [facility] [place] [facility] [address] [id number] [place] [address] 5[address] Mar, [facility] [place] [facility] [address] [id number] [place] [address] 8667 Mar, [facility] [place] [facility] [address] [id number] [place] [address] 37[address] Mar, [facility] [place] [facility] [address] [facility] [id number] [place] [address] 05 Mar, 2011 [facility] [place] [facility] [address] [id number] [place] [address] 45[address] Feb, [facility] [place] [facility] [address] [id number] [place] [address]- 1585 Feb, [facility] [place] [facility] [address] [id number] [place] [address]- 3421 14 Feb, 2011 [facility] [place] [facility] [address] [id number] [place] [address] Jan, [facility] [place] [facility] [address] [id number] [place] [address] 4[address] Jan, [facility] [place] [facility] [address] [id number] [place] [address] 5935 Oct, [facility] [place] [facility] [address] [id number] [place] [address] 42[address] Sep, [facility] [place] [facility] [address] [id number] [place] [address] Mar, [facility] [place] [facility] [address] [id number] [place] [address] 4906 Mar, [facility] [place] [facility] [address] [id number] [place] [address] 1707 Feb, [facility] [place] [facility] [address] [id number] [place] [address]229 Feb, [facility] [address] [id number] [place] [address] 4635 Jan, [facility] [place] [facility] [address] [id number] [place] [address] 6359 Jan, [facility] [place] [facility] [address] [id number] [place] [address] 6996 Mar, [facility] [place] [facility] [address] [id number] [place] [address] Feb, [facility] [place] [facility] [address] [id number] [place] [address] Feb, [facility] [place] [facility] [address] [id number] [place] [address] Feb, [facility] [place] [facility] [address] [id number] [place] [address]207 Feb, [facility] [place] [facility] [address] [id number] [place] [address]- 9079 Jan, [facility] [place] [facility] [address] [id number] [place] [address] Dec, [facility] [place] [facility] [address] [id number] [place] [address] Nov, IMMUNIZATIONS No Known Immunizations SOCIAL HISTORY Never Assessed REASON FOR VISIT Refill request PLAN OF CARE VITAL SIGNS MEDICATIONS Unknown Medications RESULTS No Results PROCEDURES No Known procedures INSTRUCTIONS MEDICATIONS ADMINISTERED No Known Medications MEDICAL (GENERAL) HISTORY Type Description Date Hospitalization History [facility] March 2015
--- OUTSIDE RECORDS SUMMARY | 2017-10-27 10:57 | XMS REPORT | Continuity of Care Document ---
Author Author [facility] Address Unknown Phone Unavailable Allergies Active Description Code Type Severity Reaction Onset Reported/Identified Relationship to Patient Clinical Status Yes ACETAMINOPHEN ACETAMINOPHEN MODERATE Yes NO KNOWN DRUG ALLERGIES NO KNOWN DRUG ALLERG UNKNOWN Yes ACETAMINOPHEN MODERATE UNKNOWN Yes acetaminophen [id number] Drug Allergy Moderate N/A 12/09/2011 Yes Benzodiazepines Drug Allergy N/A N/A 03/26/2012 Yes Hydrocodone Drug Allergy N/A N/A 03/26/2012 Yes Benzodiazepines Drug Allergy 03/26/2012 Yes Hydrocodone Drug Allergy 03/26/2012 Medications Medication Packaging Start Date Stop Date Route Dosage Sig MELATONIN TAB 3 MG (MELATONIN) MG 07/06/2016 08/04/2016 QHS&2100 MIRTAZAPINE TAB 15 MG (REMERON) MG 07/06/2016 08/04/2016 QHS&2100 INSULIN DETEMIR PEN INJ 100 UNITS/CC (LEVEMIR FLEXPEN) UNITS 07/06/2016 08/04/2016 QHS&2100 ALUM/MAG/SIMETH 30CC LIQ 0 (MYLANTA PLUS) cc 07/06/2016 08/05/2016 PRN Q4H INSULIN ASPART PEN INJ 100 UNITS/CC (NOVOLOG FLEXPEN) UNITS 07/07/2016 08/05/2016 AC&0630,1130,1630 HALOPERIDOL VIAL INJ 5 MG/CC (HALDOL 1CC VIAL) MG 07/07/2016 07/07/2016 PRN ONCE LORAZEPAM 1CC VIAL INJ 2 MG/CC (ATIVAN VIAL) MG 07/07/2016 07/07/2016 PRN ONCE LEVETIRACETAM TAB 500 MG (KEPPRA) MG 07/07/2016 08/05/2016 BID&0800,2000 CALMOSEPTINE OINT TUBE OINT 0 (RISAMINE OINT TUBE) derek 07/07/2016 08/06/2016 PRN BID NUEDEXTA 20-10 MG CAPSULE (dextromethorphan-quinidine) oral capsule CAP 07/07/2016 08/05/2016 BID&0800,2000 METFORMIN TAB 500 MG (GLUCOPHAGE) MG 07/07/2016 08/05/2016 BID&0800,1999 TRAMADOL TAB 50 MG (ULTRAM) MG 08/05/2016 TID&0800,1400,2000 CLONIDINE TAB 0.1 MG (CATAPRES) MG 07/07/2016 08/05/2016 BID&0800,1999 METOPROLOL TAB 25 MG (LOPRESSOR) MG 07/07/2016 08/05/2016 BID&0800,1999 MILK OF EUSEBIA KEANEQ 0 ml 201607/14/2016 PRN BID CLOPIDOGREL TAB 75 MG (PLAVIX) MG 07/07/2016 07/13/2016 Daily&0900 ENALAPRIL TAB 2.5 MG (VASOTEC) MG 07/07/2016 08/05/2016 Daily&0900 ASA 81MG CHEWABLE TAB 81 MG (BABY ASPIRIN) MG 07/07/2016 08/05/2016 Daily&0900 DIVALPROEX ER TAB 125 MG (DEPAKOTE ER) MG 07/07/2016 08/05/2016 Daily&0900 Rivastigmine TD Patch 24 hour 9.5mg (EXELON) MG 07/07/2016 07/16/2016 Daily&0900 NICOTINE PATCH PAT 21 MG (NICODERM) MG 07/07/2016 08/05/2016 Daily&0900 VITAMIN D3 1,000 UNIT TABLET (cholecalciferol (vitamin D3)) oral tablet UNITS 07/07/2016 08/05/2016 Daily&0900 CITALOPRAM TAB 20 MG (CELEXA) MG 08/05/2016 Daily&0900 LEVOTHYROXINE TAB 150 MCG (SYNTHROID) MCG 07/07/2016 08/05/2016 Daily&0900 DIVALPROEX SPRINKLE CAP 125 MG (DEPAKOTE SPRINKLE) MG 07/07/2016 08/06/2016 PRN Q6H DIVALPROEX SPRINKLE CAP 125 MG (DEPAKOTE SPRINKLE) MG 07/07/2016 07/07/2016 QID&1700 HALOPERIDOL VIAL INJ 5 MG/CC (HALDOL 1CC VIAL) MG 07/07/2016 08/06/2016 PRN TID SIMVASTATIN TAB 10 MG (ZOCOR) MG 08/05/2016 QPM&2000 POLYETHYLENE GLYCOL POWDER UD PWD 0 (MIRALAX 17GM UNIT DOSE PAKS) gm 07/07/2016 08/06/2016 PRN BID ATORVASTATIN 10 MG TABLET (atorvastatin) oral tablet TAB 07/07/2016 08/05/2016 QHS&2100 DIVALPROEX SPRINKLE CAP 125 MG (DEPAKOTE SPRINKLE) MG 07/07/2016 08/06/2016 QID&0800,1200,1700,2200 HALOPERIDOL ORAL DROPS DRP 2 MG/CC (HALDOL ORAL DROPS) MG 07/08/2016 08/07/2016 PRN TID DIVALPROEX SPRINKLE CAP 125 MG (DEPAKOTE SPRINKLE) MG 07/08/2016 07/09/2016 QID&0800,1700,2200 INSULIN DETEMIR PEN INJ 100 UNITS/CC (LEVEMIR FLEXPEN) UNITS 07/10/2016 08/08/2016 QHS&2100 INSULIN ASPART PEN INJ 100 UNITS/CC (NOVOLOG FLEXPEN) UNITS 07/12/2016 08/10/2016 AC&0630,1130,1630 INSULIN DETEMIR PEN INJ 100 UNITS/CC (LEVEMIR FLEXPEN) UNITS 07/12/2016 08/10/2016 QHS&2100 CLOPIDOGREL TAB 75 MG (PLAVIX) Dose(s) 07/14/2016 08/12/2016 Daily&0900 LOPERAMIDE CAP 2 MG (IMMODIUM) MG 07/15/2016 07/22/2016 PRN QID Rivastigmine TD Patch 24 hour 9.5mg (EXELON) Dose(s) 07/17/2016 07/26/2016 Daily&0900 Problems Date Dx Coded Attending Type Code Diagnosis Diagnosed By 10/10/2008 CACHORRO SHAW DO 338.4 CHRONIC PAIN SYNDROME 10/10/2008 338.4 CHRONIC PAIN SYNDROME 10/10/2008 CACHORRO SHAW DO 338.4 CHRONIC PAIN SYNDROME 10/10/2008 CACHORRO SHAW DO 338.4 CHRONIC PAIN SYNDROME 10/10/2008 338.4 CHRONIC PAIN SYNDROME 10/10/2008 CACHORRO SHAW DO 338.4 CHRONIC PAIN SYNDROME 10/10/2008 338.4 CHRONIC [...] Cabrera 338.4 CHRONIC PAIN SYNDROME 10/10/2008 VENUS PHD, JE Cabrera 338.4 CHRONIC PAIN SYNDROME 10/10/2008 SHAW DO, CACHORRO K 338.4 CHRONIC PAIN SYNDROME 10/10/2008 ARSEN TRAFFIC WORKFORCE REPRESENTATIVE, SIMRAN 338.4 CHRONIC PAIN SYNDROME 10/10/2008 ARSEN TRAFFIC WORKFORCE REPRESENTATIVE, SIMRAN 338.4 CHRONIC PAIN SYNDROME 10/10/2008 SHAW [...] SHAW DO, CACHORRO K 300.00 anxiety 11/15/2008 SIMRAN LEGER APRN 300.00 anxiety 11/15/2008 ARSEN SIMRAN MUÑOZ 300.00 anxiety 11/15/2008 SHAW DO, CACHORRO K 300.00 anxiety 11/15/2008 CLARIBEL RAMEY MD 300.00 anxiety 11/15/2008 STEPHANIE CHRISTIANSEN APRN S 300.00 anxiety 11/15/2008 JOLLY DELANEY MD 300.00 anxiety 11/15/2008 STEPHANIE CHRISTIANSEN APRN S 300.00 anxiety 12/13/2008 SHAW DO, CACHORRO K [...] CACHORRO K 787.91 Diarrhea 12/13/2008 SHAW DO, CAHCORRO K 465.9 Upper Respiratory Infection 12/13/2008 SHAW [...] 12/13/2008 JOLLY DELANEY MD 787.91 Diarrhea 12/13/2008 SHAW DO, CACHORRO K 465.9 Upper Respiratory Infection 12/13/2008 SAHW DO, CACHORRO K 787.03 Vomiting 12/13/2008 SHAW [...] DO, CACHORRO K 787.91 Diarrhea 12/13/2008 ARSEN TRAFFIC WORKFORCE REPRESENTATIVE, SIMRAN 465.9 Upper Respiratory Infection 12/13/2008 ARSEN TRAFFIC WORKFORCE REPRESENTATIVE, SIMRAN 787.03 Vomiting 12/13/2008 ARSEN TRAFFIC WORKFORCE REPRESENTATIVE, SIMRAN 787.91 Diarrhea 12/13/2008 ARSEN TRAFFIC WORKFORCE REPRESENTATIVE, SIMRAN 465.9 Upper Respiratory Infection 12/13/2008 ARSEN TRAFFIC WORKFORCE REPRESENTATIVE, SIMRAN 787.03 Vomiting 12/13/2008 ARSEN TRAFFIC WORKFORCE REPRESENTATIVE, SIMRAN 787.91 Diarrhea 12/13/2008 SHAW DO, CACHORRO K 465.9 Upper Respiratory Infection 12/13/2008 SHAW DO, CACHORRO K 787.03 Vomiting 12/13/2008 SHAW DO, CACHORRO K 787.91 Diarrhea 12/13/2008 CLARIBEL RAMEY MD 465.9 Upper Respiratory Infection 12/13/2008 CLARIBEL RAMEY MD 787.03 Vomiting 12/13/2008 CLARIBEL RAMEY MD 787.91 Diarrhea 12/13/2008 STEPHANIE CHRISTIANSEN APRN 465.9 Upper Respiratory Infection 12/13/2008 ЕЛЕНА TRAFFIC WORKFORCE REPRESENTATIVE, STEPHANIE S 787.03 Vomiting 12/13/2008 ЕЛЕНА MUÑOZ, STEPHANIE S 787.91 Diarrhea 12/13/2008 JOLLY DELANEY MD 465.9 Upper Respiratory Infection 12/13/2008 JOLLY DELANEY MD 787.03 Vomiting 12/13/2008 JOLLY DELANEY MD 787.91 Diarrhea 12/13/2008 ЕЛЕНА MUÑOZ, STEPHANIE S 465.9 Upper Respiratory Infection 12/13/2008 ЕЛЕНА MUÑOZ, STEPHANIE S 787.03 Vomiting 12/13/2008 ЕЛЕНА TRAFFIC WORKFORCE REPRESENTATIVE, STEPHAINE S 787.91 Diarrhea 12/15/2008 SHAW DO, CACHORRO [...] Cabrera 311 MO DEPRESS NOS 12/15/2008 SHAW DO, CACHORRO K 307.47 SI DYSSOMNIA NOS 12/15/2008 SHAW DO, CACHORRO K 311 MO DEPRESS NOS 12/15/2008 ARSEN TRAFFIC WORKFORCE REPRESENTATIVE, SIMRAN 307.47 SI DYSSOMNIA NOS 12/15/2008 ARSEN TRAFFIC WORKFORCE REPRESENTATIVE, SIMRAN 311 MO DEPRESS NOS 12/15/2008 ARSEN TRAFFIC WORKFORCE REPRESENTATIVE, SIMRAN 307.47 SI DYSSOMNIA NOS 12/15/2008 ARSEN TRAFFIC WORKFORCE REPRESENTATIVE, SIMRAN 311 MO DEPRESS NOS 12/15/2008 SHAW DO, CACHORRO K 307.47 SI DYSSOMNIA NOS 12/15/2008 SHAW DO, CACHORRO K 311 MO DEPRESS NOS 12/15/2008 CLARIBEL RAMEY MD 307.47 SI DYSSOMNIA NOS 12/15/2008 TANVIR MD, CLARIBEL N 311 MO DEPRESS NOS 12/15/2008 ЕЛЕНА MUÑOZ, STEPHANIE S 307.47 SI DYSSOMNIA NOS 12/15/2008 ЕЛЕНА MUÑOZ, STEPHANIE S 311 MO DEPRESS NOS 12/15/2008 JOLLY DELANEY MD 307.47 SI DYSSOMNIA NOS 12/15/2008 JOLLY DELANEY MD 311 MO DEPRESS NOS 12/15/2008 ЕЛЕНА MUÑOZ, STEPHANIE S 307.47 SI DYSSOMNIA NOS 12/15/2008 ЕЛЕНА MUÑOZ, STEPHANIE S 311 MO DEPRESS NOS 12/28/2008 VALERIA DO CACHORRO K 250.02 DIABETES MELLITUS POORLY CONTROLLED 12/28/2008 SHAW DO CACHORRO K 577.1 CHRONIC PANCREATITIS 12/28/2008 250.02 DIABETES MELLITUS POORLY CONTROLLED 12/28/2008 577.1 CHRONIC PANCREATITIS 12/28/2008 SHAW DO CACHORRO K 250.02 DIABETES MELLITUS POORLY CONTROLLED 12/28/2008 SHAW DO CACHORRO K 577.1 CHRONIC PANCREATITIS 12/28/2008 SHAW DO CACHORRO K 250.02 DIABETES MELLITUS POORLY CONTROLLED 12/28/2008 SHAW DO CACHORRO K 577.1 CHRONIC PANCREATITIS 12/28/2008 250.02 DIABETES MELLITUS POORLY CONTROLLED 12/28/2008 577.1 CHRONIC PANCREATITIS 12/28/2008 SHAW DO CACHORRO K 250.02 DIABETES MELLITUS POORLY CONTROLLED 12/28/2008 SHAW DO CACHORRO K 577.1 CHRONIC PANCREATITIS 12/28/2008 250.02 DIABETES MELLITUS POORLY CONTROLLED 12/28/2008 577.1 CHRONIC PANCREATITIS 12/28/2008 250.02 DIABETES MELLITUS POORLY CONTROLLED 12/28/2008 577.1 CHRONIC PANCREATITIS 12/28/2008 250.02 DIABETES MELLITUS POORLY CONTROLLED 12/28/2008 577.1 CHRONIC PANCREATITIS 12/28/2008 SHAW DO CACHORRO K 250.02 DIABETES MELLITUS POORLY CONTROLLED 12/28/2008 SHAW DO CACHORRO K 577.1 CHRONIC PANCREATITIS 12/28/2008 SHAW DO CACHORRO K 250.02 DIABETES MELLITUS POORLY CONTROLLED 12/28/2008 SHAW DO CACHORRO K 577.1 CHRONIC PANCREATITIS 12/28/2008 SHAW DO CACHORRO K 250.02 DIABETES MELLITUS POORLY CONTROLLED 12/28/2008 SHAW DO CACHORRO K 577.1 CHRONIC PANCREATITIS 12/28/2008 SHAW DO CACHORRO K 250.02 DIABETES MELLITUS POORLY CONTROLLED 12/28/2008 SHAW DO CACHORRO K 577.1 CHRONIC PANCREATITIS 12/28/2008 SHAW [...] 250.02 DIABETES MELLITUS POORLY CONTROLLED 12/28/2008 SHAW DO CACHORRO K 577.1 CHRONIC PANCREATITIS 12/28/2008 VENUS SUN, JE Cabrera 250.02 DIABETES MELLITUS POORLY CONTROLLED 12/28/2008 VENUS SUN, JE Cabrera 577.1 CHRONIC PANCREATITIS 12/28/2008 VENUS SUN, JE Cabrera 250.02 DIABETES MELLITUS POORLY CONTROLLED 12/28/2008 VENUS SUN, JE Cabrera 577.1 CHRONIC PANCREATITIS 12/28/2008 SHAW DO, CACHORRO K 250.02 DIABETES MELLITUS POORLY CONTROLLED 12/28/2008 SHAW DO CACHORRO K 577.1 CHRONIC PANCREATITIS 12/28/2008 ARSEN MUÑOZ SIMRAN 250.02 DIABETES MELLITUS POORLY CONTROLLED 12/28/2008 ARSEN MUÑOZ SIMRAN 577.1 CHRONIC PANCREATITIS 12/28/2008 ARSEN WANDA SIMRAN 250.02 DIABETES MELLITUS POORLY CONTROLLED 12/28/2008 ARSEN MUÑOZ SIMRAN 577.1 CHRONIC PANCREATITIS 12/28/2008 SHAW DO CACHORRO K 250.02 DIABETES MELLITUS POORLY CONTROLLED 12/28/2008 SHAW DO CACHORRO K 577.1 CHRONIC PANCREATITIS 12/28/2008 CLARIBEL RAMEY MD 250.02 DIABETES MELLITUS POORLY CONTROLLED 12/28/2008 CLARIBEL RAMEY MD 577.1 CHRONIC PANCREATITIS 12/28/2008 STEPHANIE CHRISTIANSEN APRN 250.02 DIABETES MELLITUS POORLY CONTROLLED 12/28/2008 PAULINA CHRISTIANSEN APRNA S 577.1 CHRONIC PANCREATITIS 12/28/2008 JOLLY DELANEY MD 250.02 DIABETES MELLITUS POORLY CONTROLLED 12/28/2008 JOLLY DELANEY MD 577.1 CHRONIC PANCREATITIS 12/28/2008 STEPHANIE CHRISTIANSEN APRN S 250.02 DIABETES MELLITUS POORLY CONTROLLED 12/28/2008 ЕЛЕНА MUÑOZ STEPHANIE S 577.1 CHRONIC PANCREATITIS 01/04/2009 SHAW DO, CACHORRO K 788.7 Penile Discharge 01/04/2009 788.7 Penile Discharge 01/04/2009 SHAW DO, CACHORRO K 788.7 Penile Discharge 01/04/2009 SHAW DO, CACHORRO K 788.7 Penile Discharge 01/04/2009 788.7 Penile Discharge 01/04/2009 SHAW DO, CACHORRO K 788.7 Penile Discharge 01/04/2009 788.7 Penile [...] CACHORRO K 788.7 Penile Discharge 01/04/2009 VENUS PHD, JE Cabrera 788.7 Penile Discharge 01/04/2009 VENUS SUN, JE Cabrera 788.7 Penile Discharge 01/04/2009 SHAW DO, CACHORRO K 788.7 Penile Discharge 01/04/2009 ARSEN TRAFFIC WORKFORCE REPRESENTATIVE, SIMRAN 788.7 Penile Discharge 01/04/2009 ARSEN TRAFFIC WORKFORCE REPRESENTATIVE, SIMRAN 788.7 Penile Discharge 01/04/2009 SHAW DO, CACHORRO K 788.7 Penile Discharge 01/04/2009 TANVIR JAMES, CLARIBEL Braun 788.7 Penile Discharge 01/04/2009 STEPHANIE CHRISTIANSEN APRN 788.7 Penile Discharge 01/04/2009 JOLLY DELANEY MD 788.7 Penile Discharge 01/04/2009 STEPHANIE CHRISTIANSEN APRN 788.7 Penile Discharge 02/15/2009 SHAW DO, CACHORRO [...] DO, CACHORRO K 302.72 IMPOTENCE 02/15/2009 VENUS PHD, JE Cabrera 302.72 IMPOTENCE 02/15/2009 VENUS PHD, JE Cabrera 302.72 IMPOTENCE 02/15/2009 SHAW DO, CACHORRO K 302.72 IMPOTENCE 02/15/2009 ARSEN TRAFFIC WORKFORCE REPRESENTATIVE, SIMRAN 302.72 IMPOTENCE 02/15/2009 ARSEN TRAFFIC WORKFORCE REPRESENTATIVE, SIMRAN 302.72 IMPOTENCE 02/15/2009 SHAW DO, CACHORRO K 302.72 IMPOTENCE 02/15/2009 TANVIR JAMES, CLARIBEL Braun 302.72 IMPOTENCE 02/15/2009 STEPHANIE CHRISTIANSEN APRN 302.72 IMPOTENCE 02/15/2009 ELAINA JAMES, JOLLY 302.72 IMPOTENCE 02/15/2009 STEPHANIE CHRISTIANSEN APRN 302.72 IMPOTENCE 03/20/2009 SHAW DO, CACHORRO K [...] K 724.5 Backache Unspecified 03/20/2009 SHAW DO, CCAHORRO K 724.5 Backache Unspecified 03/20/2009 SHAW DO, [...] CACHORRO K 724.5 Backache Unspecified 03/20/2009 VENUS PHD, JE Cabrera 724.5 Backache Unspecified 03/20/2009 VENUS SUN, JE Cabrera 724.5 Backache Unspecified 03/20/2009 SHAW DO, CACHORRO K 724.5 Backache Unspecified 03/20/2009 ARSEN TRAFFIC WORKFORCE REPRESENTATIVE, SIMRAN 724.5 Backache Unspecified 03/20/2009 ARSEN TRAFFIC WORKFORCE REPRESENTATIVE, SIMRAN 724.5 Backache Unspecified 03/20/2009 SHAW DO, CACHORRO K 724.5 Backache Unspecified 03/20/2009 TANVIR JAMES, CLARIBEL Braun 724.5 Backache Unspecified 03/20/2009 ЕЛЕНА MUÑOZ, STEPHANIE S 724.5 Backache Unspecified 03/20/2009 ELAINA JAMES, JOLLY 724.5 Backache Unspecified 03/20/2009 STEPHANIE CHRISTIANSEN APRN S 724.5 Backache Unspecified 06/09/2009 SHAW DO, CACHORRO [...] PF PSYCHIC FACTORS MED COND 06/09/2009 ARSEN TRAFFIC WORKFORCE REPRESENTATIVE, SIMRAN 304.10 SA SEDATIVE DEP 06/09/2009 ARSEN TRAFFIC WORKFORCE REPRESENTATIVE, SIMRAN 316 PF PSYCHIC FACTORS MED COND 06/09/2009 ARSEN TRAFFIC WORKFORCE REPRESENTATIVE, SIMRAN 304.10 SA SEDATIVE DEP 06/09/2009 ARSEN TRAFFIC WORKFORCE REPRESENTATIVE, SIMRAN 316 PF PSYCHIC FACTORS MED COND 06/09/2009 SHAW DO, CACHORRO K 304.10 SA SEDATIVE DEP 06/09/2009 SHAW DO, CACHORRO K 316 PF PSYCHIC FACTORS MED COND 06/09/2009 TANVIR JAMES, CLARIBEL Braun 304.10 SA SEDATIVE DEP 06/09/2009 CLARIBEL RAMEY MD 316 PF PSYCHIC FACTORS MED COND 06/09/2009 STEPHANIE CHRISTIANSEN APRN 304.10 SA SEDATIVE DEP 06/09/2009 ЕЛЕНА TRAFFIC WORKFORCE REPRESENTATIVE, STEPHANIE S 316 PF PSYCHIC FACTORS MED COND 06/09/2009 JOLLY DELANEY MD 304.10 SA SEDATIVE DEP 06/09/2009 JOLLY DELANEY MD 316 PF PSYCHIC FACTORS MED COND 06/09/2009 ЕЛЕНА TRAFFIC WORKFORCE REPRESENTATIVE, STEPHANIE S 304.10 SA SEDATIVE DEP 06/09/2009 ЕЛЕНА TRAFFIC WORKFORCE REPRESENTATIVE, STEPHANIE S 316 PF PSYCHIC FACTORS MED COND 08/07/2009 SHAW DO, CACHRORO K 244.9 HYPOTHYROIDISM 08/07/2009 SHAW DO, CACHORRO [...] K 304.00 SA OPIOID DEPENDENCE 08/07/2009 VENUS PHD, JE Cabrera 244.9 HYPOTHYROIDISM 08/07/2009 VENUS PHD, JE Cabrera 304.00 SA OPIOID DEPENDENCE 08/07/2009 VENUS PHD, JE Cabrera 244.9 HYPOTHYROIDISM 08/07/2009 VENUS PHD, JE Cabrera 304.00 SA OPIOID DEPENDENCE 08/07/2009 SHAW DO, CACHORRO K 244.9 HYPOTHYROIDISM 08/07/2009 SHAW DO, CACHORRO K 304.00 SA OPIOID DEPENDENCE 08/07/2009 ARSEN TRAFFIC WORKFORCE REPRESENTATIVE, SIMRAN 244.9 HYPOTHYROIDISM 08/07/2009 ARSEN TRAFFIC WORKFORCE REPRESENTATIVE, SIMRAN 304.00 SA OPIOID DEPENDENCE 08/07/2009 ARSEN TRAFFIC WORKFORCE REPRESENTATIVE, SIMRAN 244.9 HYPOTHYROIDISM 08/07/2009 ARSNE TRAFFIC WORKFORCE REPRESENTATIVE, SIMRAN 304.00 SA OPIOID DEPENDENCE 08/07/2009 SHAW DO, CACHORRO K 244.9 HYPOTHYROIDISM 08/07/2009 SHAW DO, CACHORRO K 304.00 SA OPIOID DEPENDENCE 08/07/2009 TANVIR JAMES, CLARIBEL N 244.9 HYPOTHYROIDISM 08/07/2009 CLARIBEL RAMEY MD N 304.00 SA OPIOID DEPENDENCE 08/07/2009 ЕЛЕНА TRAFFIC WORKFORCE REPRESENTATIVE, STEPHANIE S 244.9 HYPOTHYROIDISM 08/07/2009 ЕЛЕНА TRAFFIC WORKFORCE REPRESENTATIVE, STEPHANIE S 304.00 SA OPIOID DEPENDENCE 08/07/2009 JOLLY DELANEY MD 244.9 HYPOTHYROIDISM 08/07/2009 JOLLY DELANEY MD 304.00 SA OPIOID DEPENDENCE 08/07/2009 ЕЛЕНА MANRIQUEN, STEPHANIE S 244.9 HYPOTHYROIDISM 08/07/2009 ЕЛЕНА MANRIQUEN, STEPHANIE S 304.00 SA OPIOID DEPENDENCE 08/16/2009 SHAW DO CACHORRO K 414.01 CAD 08/16/2009 SHAW DO, CACHORRO K 443.9 PERIPHERAL ARTERIAL DISEASE 08/16/2009 SHAW DO, CACHORRO K 458.0 Orthostatic Hypotension 08/16/2009 SHWA DO, CACHORRO K 461.0 Acute Maxillary Sinusitis [...] JOLLY DELANEY MD 458.0 Orthostatic Hypotension 08/16/2009 ELAINA JAMES, JOLLY 461.0 Acute Maxillary Sinusitis 08/16/2009 ELAINA JAMES, [...] CACHORRO K 780.2 Syncope And Collapse 08/16/2009 VENUS SUN, JE Cabrera 414.01 CAD 08/16/2009 VENUS SUN, JE Cabrera 443.9 PERIPHERAL ARTERIAL DISEASE 08/16/2009 VENUS SUN, JE Cabrera 458.0 Orthostatic Hypotension 08/16/2009 VENUS SUN, JE Cabrera 461.0 Acute Maxillary Sinusitis 08/16/2009 VENUS SUN, JE Cabrera 780.2 Syncope And Collapse 08/16/2009 VENUS SUN, JE Cabrera 414.01 CAD 08/16/2009 VENUS SUN, JE Cabrera 443.9 PERIPHERAL ARTERIAL DISEASE 08/16/2009 VENUS SUN, JE Cabrera 458.0 Orthostatic Hypotension 08/16/2009 VENUS SUN, JE Cabrera 461.0 Acute Maxillary Sinusitis 08/16/2009 VENUS SUN, JE Cabrera 780.2 Syncope And Collapse 08/16/2009 SHAW DO, CACHORRO K 414.01 CAD 08/16/2009 SHAW DO, CACHORRO K 443.9 PERIPHERAL ARTERIAL DISEASE 08/16/2009 SHAW DO, CACHORRO K 458.0 Orthostatic Hypotension 08/16/2009 SHAW DO, CACHORRO K 461.0 Acute Maxillary Sinusitis 08/16/2009 SHAW DO, CACHORRO K 780.2 Syncope And Collapse 08/16/2009 ARSEN TRAFFIC WORKFORCE REPRESENTATIVE, SIMRAN 414.01 CAD 08/16/2009 ARSEN TRAFFIC WORKFORCE REPRESENTATIVE, SIMRAN 443.9 PERIPHERAL ARTERIAL DISEASE 08/16/2009 ARSEN TRAFFIC WORKFORCE REPRESENTATIVE, SIMRAN 458.0 Orthostatic Hypotension 08/16/2009 ARSEN TRAFFIC WORKFORCE REPRESENTATIVE, SIMRAN 461.0 Acute Maxillary Sinusitis 08/16/2009 ARSEN TRAFFIC WORKFORCE REPRESENTATIVE, SIMRAN 780.2 Syncope And Collapse 08/16/2009 ARSEN TRAFFIC WORKFORCE REPRESENTATIVE, SIMRAN 414.01 CAD 08/16/2009 ARSEN TRAFFIC WORKFORCE REPRESENTATIVE, SIMRAN 443.9 PERIPHERAL ARTERIAL DISEASE 08/16/2009 ARSEN TRAFFIC WORKFORCE REPRESENTATIVE, SIMRAN 458.0 Orthostatic Hypotension 08/16/2009 ARSEN TRAFFIC WORKFORCE REPRESENTATIVE, SIMRAN 461.0 Acute Maxillary Sinusitis 08/16/2009 ARSEN TRAFFIC WORKFORCE REPRESENTATIVE, SIMRAN 780.2 Syncope And Collapse 08/16/2009 SHAW DO, CACHORRO K 414.01 CAD 08/16/2009 SHAW DO, CACHORRO K 443.9 PERIPHERAL ARTERIAL DISEASE 08/16/2009 SHAW DO, CACHORRO K 458.0 Orthostatic Hypotension 08/16/2009 SHAW DO, CACHORRO K 461.0 Acute Maxillary Sinusitis 08/16/2009 SHAW DO, CACHORRO K 780.2 Syncope And Collapse 08/16/2009 CLARIBEL RAMEY MD N 414.01 CAD 08/16/2009 TANVIR JAMES, CLARIBEL N 443.9 PERIPHERAL ARTERIAL DISEASE 08/16/2009 CLARIBEL RAMEY MD N 458.0 Orthostatic Hypotension 08/16/2009 CLARIBEL RAMEY MD N 461.0 Acute Maxillary Sinusitis 08/16/2009 CLARIBEL RAMEY MD 780.2 Syncope And Collapse 08/16/2009 ALBERT CHRISTIANSEN APRNNDA S 414.01 CAD 08/16/2009 ЕЛЕНА MUÑOZ, STEPHANIE S 443.9 PERIPHERAL ARTERIAL DISEASE 08/16/2009 ЕЛЕНА MUÑOZ, STEPHANIE S 458.0 Orthostatic Hypotension 08/16/2009 ALBERT CHRISTIANSEN APRNNDA S 461.0 Acute Maxillary Sinusitis 08/16/2009 ЕЛЕНА MUÑOZ STEPHANIE S 780.2 Syncope And Collapse 08/16/2009 JOLLY DELANEY MD 414.01 CAD 08/16/2009 JOLLY DELANEY MD 443.9 PERIPHERAL ARTERIAL DISEASE 08/16/2009 JOLLY DELANEY MD 458.0 Orthostatic Hypotension 08/16/2009 JOLLY DELANEY MD 461.0 Acute Maxillary Sinusitis 08/16/2009 JOLLY DELANEY MD 780.2 Syncope And Collapse 08/16/2009 ALBERT CHRISTIANSEN APRNNDA S 414.01 CAD 08/16/2009 ЕЛЕНА MUÑOZ STEPHANIE S 443.9 PERIPHERAL ARTERIAL DISEASE 08/16/2009 ALBERT CHRISTIANSEN APRNNDA S 458.0 Orthostatic Hypotension 08/16/2009 ALBERT CHRISTIANSEN APRNNDA S 461.0 Acute Maxillary Sinusitis 08/16/2009 ALBERT CHRISTIANSEN APRNNDA S 780.2 Syncope And Collapse 10/02/2009 CACHORRO SHAW DO 250.00 Diabetes Ii Controlled 10/02/2009 250.00 Diabetes Ii Controlled 10/02/2009 CACHORRO SHAW DO 250.00 Diabetes Ii Controlled 10/02/2009 CACHORRO SHAW DO K 250.00 Diabetes Ii Controlled 10/02/2009 250.00 Diabetes Ii Controlled 10/02/2009 CACHORRO SHAW DO 250.00 Diabetes Ii Controlled 10/02/2009 250.00 Diabetes [...] K 250.00 Diabetes Ii Controlled 10/02/2009 VENUS PHD, JE Cabrera 250.00 Diabetes Ii Controlled 10/02/2009 VENUS SUN, JE Cabrera 250.00 Diabetes Ii Controlled 10/02/2009 SHAW DO, CACHORRO K 250.00 Diabetes Ii Controlled 10/02/2009 ARSEN MUÑOZ SIMRAN 250.00 Diabetes Ii Controlled 10/02/2009 ARSEN MUÑOZ, SIMRAN 250.00 Diabetes Ii Controlled 10/02/2009 SHAW DO, CACHORRO K 250.00 Diabetes Ii Controlled 10/02/2009 TANVIR JAMES, CLARIBEL Braun 250.00 Diabetes Ii Controlled 10/02/2009 STEPHANIE CHRISTIANSEN APRN S 250.00 Diabetes Ii Controlled 10/02/2009 JOLLY DELANEY MD 250.00 Diabetes Ii Controlled 10/02/2009 ЕЛЕНА MUÑOZ STEPHANIE S 250.00 Diabetes Ii Controlled 12/06/2009 [...] Cabrera 272.4 HYPERLIPIDEMIA HYPERLIPOPROTEINEMIAS (Old Classification) 12/06/2009 VALERIA CASH CACHORRO K 250.60 DIABETES MELLITUS DIABETIC PERIPHERAL NEUROPATHY 12/06/2009 SHAW DO, CACHORRO K 272.4 HYPERLIPIDEMIA HYPERLIPOPROTEINEMIAS (Old Classification) 12/06/2009 ARSEN TRAFFIC WORKFORCE REPRESENTATIVE, SIMRAN 250.60 DIABETES MELLITUS DIABETIC PERIPHERAL NEUROPATHY 12/06/2009 ARSEN TRAFFIC WORKFORCE REPRESENTATIVE, SIMRAN 272.4 HYPERLIPIDEMIA HYPERLIPOPROTEINEMIAS (Old Classification) 12/06/2009 ARSEN TRAFFIC WORKFORCE REPRESENTATIVE, SIMRAN 250.60 DIABETES MELLITUS DIABETIC PERIPHERAL NEUROPATHY 12/06/2009 ARSEN TRAFFIC WORKFORCE REPRESENTATIVE, SIMRAN 272.4 HYPERLIPIDEMIA HYPERLIPOPROTEINEMIAS (Old Classification) 12/06/2009 SHAW , CACHORRO K 250.60 DIABETES MELLITUS DIABETIC PERIPHERAL [...] MD 272.4 HYPERLIPIDEMIA HYPERLIPOPROTEINEMIAS (Old Classification) 12/06/2009 STEPHANIE CHRISTIANSEN APRN 250.60 DIABETES MELLITUS DIABETIC PERIPHERAL NEUROPATHY 12/06/2009 STEPHANIE CHRISTIANSEN APRN 272.4 HYPERLIPIDEMIA HYPERLIPOPROTEINEMIAS (Old Classification) 02/01/2010 SHAW DO, CACHORRO K 296.90 [...] 296.90 Unspecified Episodic Mood Disorder 02/01/2010 VENUS SNU, JE Cabrera 296.90 Unspecified Episodic Mood Disorder 02/01/2010 SHAW DO, CACHORRO K 296.90 Unspecified Episodic Mood Disorder 02/01/2010 ARSEN TRAFFIC WORKFORCE REPRESENTATIVE, SIMRAN 296.90 Unspecified Episodic Mood Disorder 02/01/2010 ARSEN TRAFFIC WORKFORCE REPRESENTATIVE, SIMRAN 296.90 Unspecified Episodic Mood Disorder 02/01/2010 SHAW DO, CACHORRO K 296.90 Unspecified Episodic Mood Disorder 02/01/2010 TANVIR JAMES, CLARIBEL Braun 296.90 Unspecified Episodic Mood Disorder 02/01/2010 STEPHANIE CHRISTIANSEN APRN S 296.90 Unspecified Episodic Mood Disorder 02/01/2010 JOLLY DELANEY MD 296.90 Unspecified Episodic Mood Disorder 02/01/2010 STEPHANIE CHRISTIANSEN APRN S 296.90 Unspecified Episodic Mood Disorder 02/07/2010 [...] 789.00 Abdominal Pain Unspecified Site 02/07/2010 ARSEN TRAFFIC WORKFORCE REPRESENTATIVE, SIMRAN 789.00 Abdominal Pain Unspecified Site 02/07/2010 ARSEN TRAFFIC WORKFORCE REPRESENTATIVE, SIMRAN 789.00 Abdominal Pain Unspecified Site 02/07/2010 [...] K 112.0 Candidiasis Of Mouth 04/16/2010 SHAW DO CACHORRO K 112.0 Candidiasis Of Mouth 04/16/2010 VENUS SUN, JE Cabrera 112.0 Candidiasis Of Mouth 04/16/2010 JE DONOVAN PHD 112.0 Candidiasis Of Mouth 04/16/2010 SHAW DO CACHORRO K 112.0 Candidiasis Of Mouth 04/16/2010 SIMRAN LEGER APRN 112.0 Candidiasis Of Mouth 04/16/2010 SIMRAN LEGER APRN 112.0 Candidiasis Of Mouth 04/16/2010 SHAW DO CACHORRO K 112.0 Candidiasis Of Mouth 04/16/2010 TANVIR JAMES, CLARIBEL Braun 112.0 Candidiasis Of Mouth 04/16/2010 STEPHANIE CHRISTIANSEN APRN S 112.0 Candidiasis Of Mouth 04/16/2010 ELAINA JAMES, JOLLY 112.0 Candidiasis Of Mouth 04/16/2010 STEPHANIE CHRISTIANSEN APRN S 112.0 Candidiasis Of Mouth 06/07/2010 SHAW DO CACHORRO K 296.30 MAJOR [...] AFFECTIVE DISORDER RECURRENT EPISODE UNSPECIFIED DEGREE 06/07/2010 CACHORRO SHAW DO K 296.30 MAJOR DEPRESSIVE AFFECTIVE DISORDER RECURRENT EPISODE UNSPECIFIED DEGREE 06/07/2010 JOLLY DELANEY MD 296.30 MAJOR DEPRESSIVE AFFECTIVE DISORDER RECURRENT EPISODE UNSPECIFIED DEGREE 06/07/2010 SUMIT SHAW DOA K 296.30 MAJOR DEPRESSIVE AFFECTIVE DISORDER RECURRENT EPISODE UNSPECIFIED DEGREE 06/07/2010 SHAW SUMIT CASHA K 296.30 MAJOR DEPRESSIVE AFFECTIVE DISORDER RECURRENT EPISODE UNSPECIFIED DEGREE 06/07/2010 SUMIT SHAW DOA K 296.30 MAJOR DEPRESSIVE AFFECTIVE DISORDER RECURRENT EPISODE UNSPECIFIED DEGREE 06/07/2010 EJ DONOVAN PHD 296.30 MAJOR DEPRESSIVE AFFECTIVE DISORDER RECURRENT EPISODE UNSPECIFIED DEGREE 06/07/2010 JE DONOVAN PHD 296.30 MAJOR DEPRESSIVE AFFECTIVE DISORDER RECURRENT EPISODE UNSPECIFIED DEGREE 06/07/2010 SUMIT SHAW DOA K 296.30 MAJOR DEPRESSIVE AFFECTIVE DISORDER RECURRENT EPISODE UNSPECIFIED DEGREE 06/07/2010 ARSEN TRAFFIC WORKFORCE REPRESENTATIVE, SIMRAN 296.30 MAJOR DEPRESSIVE AFFECTIVE DISORDER RECURRENT EPISODE UNSPECIFIED DEGREE 06/07/2010 ARSENHOLGER MUÑOZ, SIMRAN 296.30 MAJOR DEPRESSIVE AFFECTIVE DISORDER RECURRENT EPISODE UNSPECIFIED DEGREE 06/07/2010 SUMIT SHAW DOA K 296.30 MAJOR DEPRESSIVE AFFECTIVE DISORDER RECURRENT EPISODE UNSPECIFIED DEGREE 06/07/2010 TANVIR JAMES, CLARIBEL Braun 296.30 MAJOR DEPRESSIVE AFFECTIVE DISORDER RECURRENT EPISODE UNSPECIFIED DEGREE 06/07/2010 STEPHANIE CHRISTIANSEN APRN 296.30 MAJOR DEPRESSIVE AFFECTIVE DISORDER RECURRENT EPISODE UNSPECIFIED DEGREE 06/07/2010 JOLLY DELANEY MD 296.30 MAJOR DEPRESSIVE AFFECTIVE DISORDER RECURRENT EPISODE UNSPECIFIED DEGREE 06/07/2010 STEPHANIE CHRISTIANSEN APRN 296.30 MAJOR DEPRESSIVE AFFECTIVE DISORDER RECURRENT EPISODE UNSPECIFIED DEGREE 06/17/2010 Ot 891.0 06/17/2010 Ot E000.8 06/17/2010 Ot E849.0 06/17/2010 Ot E920.8 06/17/2010 Ot V06.1 07/03/2010 CACHORRO SHAW DO K 296.32 MO DEPRESSIVE RECURRENT MODERATE 07/03/2010 296.32 MO DEPRESSIVE RECURRENT MODERATE 07/03/2010 CACHORRO SHAW DO K 296.32 MO DEPRESSIVE RECURRENT MODERATE 07/03/2010 SUMIT SHAW DOA K 296.32 MO DEPRESSIVE RECURRENT MODERATE 07/03/2010 [...] K 296.32 MO DEPRESSIVE RECURRENT MODERATE 07/03/2010 VENUS SUN, JE Cabrera 296.32 MO DEPRESSIVE RECURRENT MODERATE 07/03/2010 JE DONOVAN PHD 296.32 MO DEPRESSIVE RECURRENT MODERATE 07/03/2010 SHAW DO, CACHORRO K 296.32 MO DEPRESSIVE RECURRENT MODERATE 07/03/2010 SIMRAN LEGER APRN 296.32 MO DEPRESSIVE RECURRENT MODERATE 07/03/2010 ARSEN WANDA SIMRAN 296.32 MO DEPRESSIVE RECURRENT MODERATE 07/03/2010 SHAW DO, CACHORRO K 296.32 MO DEPRESSIVE RECURRENT MODERATE 07/03/2010 TANVIR JAMES, CLARIBEL Braun 296.32 MO DEPRESSIVE RECURRENT MODERATE 07/03/2010 STEPHANIE CHRISTIANSEN APRN 296.32 MO DEPRESSIVE RECURRENT MODERATE 07/03/2010 JOLLY DELANEY MD 296.32 MO DEPRESSIVE RECURRENT MODERATE 07/03/2010 STEPHANIE [...] Ot V58.69 OTH MED,LT, CURRENT USE 12/03/2010 SHAW DO, CACHORRO K 304.20 COCAINE DEPENDENCE 12/03/2010 304.20 COCAINE DEPENDENCE 12/03/2010 SHAW DO, CACHORRO K 304.20 COCAINE DEPENDENCE 12/03/2010 SHAW DO, CACHORRO K 304.20 COCAINE DEPENDENCE 12/03/2010 304.20 COCAINE DEPENDENCE 12/03/2010 SHAW DO, CACHORRO K 304.20 COCAINE DEPENDENCE 12/03/2010 304.20 COCAINE DEPENDENCE 12/03/2010 304.20 COCAINE DEPENDENCE 12/03/2010 304.20 COCAINE DEPENDENCE 12/03/2010 SHAW DO, CACHORRO K 304.20 COCAINE DEPENDENCE 12/03/2010 SHAW DO, CACHORRO K 304.20 COCAINE DEPENDENCE 12/03/2010 SHAW DO, CACHORRO K 304.20 COCAINE DEPENDENCE 12/03/2010 SHAW DO, CACHORRO K 304.20 COCAINE DEPENDENCE 12/03/2010 SHAW DO, CACHORRO K 304.20 COCAINE DEPENDENCE 12/03/2010 SHAW DO, CACHORRO K 304.20 COCAINE DEPENDENCE 12/03/2010 JOLLY DELANEY MD 304.20 COCAINE DEPENDENCE 12/03/2010 SHAW DO, CACHORRO K 304.20 COCAINE DEPENDENCE 12/03/2010 SHAW DO, CACHORRO K 304.20 COCAINE DEPENDENCE 12/03/2010 SHAW DO, CACHORRO K 304.20 COCAINE DEPENDENCE 12/03/2010 VENUS PHD, JE Cabrera 304.20 COCAINE DEPENDENCE 12/03/2010 VENUS PHD, JE Cabrera 304.20 COCAINE DEPENDENCE 12/03/2010 SHAW DO CACHORRO K 304.20 COCAINE DEPENDENCE 12/03/2010 ARSEN MUÑOZ SIMRAN 304.20 COCAINE DEPENDENCE 12/03/2010 ARSEN MUÑOZ SIMRAN 304.20 COCAINE DEPENDENCE 12/03/2010 SHAW DO, CACHORRO K 304.20 COCAINE DEPENDENCE 12/03/2010 TANVIR JAMES, CLARIBEL Braun 304.20 COCAINE DEPENDENCE 12/03/2010 PAULINA CHRISTIANSEN APRNA S 304.20 COCAINE DEPENDENCE 12/03/2010 JOLLY DELANEY MD 304.20 COCAINE DEPENDENCE 12/03/2010 STEPHANIE CHRISTIANSEN APRN S 304.20 COCAINE DEPENDENCE 01/09/2011 Ot 250.02 DIAB KYLE WO COMPL, TYPE II OR UNSPEC TY 01/09/2011 Ot 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 01/09/2011 Ot 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 01/09/2011 Ot 716.90 ARTHROPATHY NOS-UNSPEC 01/17/2011 CACHORRO SHAW DO K 786.52 CHEST WALL PAIN 01/17/2011 SUMIT SHAW DOA K 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 01/17/2011 786.52 CHEST WALL PAIN 01/17/2011 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 01/17/2011 CACHORRO SHAW DO K 786.52 Chest Wall Pain 01/17/2011 VALERIA CASH CACHORRO K 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 HISTORY OF METHICILLIN [...] OF METHICILLIN RESISTANT STAPHYLOCOCCUS AUREUS 01/17/2011 SHAW DO CACHORRO K 786.52 Chest Wall Pain 01/17/2011 SHAW DO, CACHORRO K 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 01/17/2011 VENUS SUN, JE Cabrera 786.52 Chest Wall Pain 01/17/2011 VENUS SUN, JE Cabrera 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 01/17/2011 JE DONOVAN PHD 786.52 Chest Wall Pain 01/17/2011 VENUS SUN, JE Cabrera 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 01/17/2011 SHAW DO CACHORRO K 786.52 Chest Wall Pain 01/17/2011 SHAW DO, CACHORRO K 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 01/17/2011 ARSEN TRAFFIC WORKFORCE REPRESENTATIVE, SIMRAN 786.52 Chest Wall Pain 01/17/2011 ARSEN TRAFFIC WORKFORCE REPRESENTATIVE, SIMRAN 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 01/17/2011 ARSEN TRAFFIC WORKFORCE REPRESENTATIVE, SIMRAN 786.52 Chest Wall Pain 01/17/2011 ARSEN TRAFFIC WORKFORCE REPRESENTATIVE, SIMRAN 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 01/17/2011 SHAW DO, CACHORRO K 786.52 Chest Wall Pain 01/17/2011 SHAW DO, CACHORRO K 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 01/17/2011 CLARIBEL RAMEY MD 786.52 Chest Wall Pain 01/17/2011 TANVIR MD, CLARIBEL N 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 01/17/2011 ЕЛЕНА MUÑOZ, STEPHANIE S 786.52 Chest Wall Pain 01/17/2011 ЕЛЕНА MUÑOZ, STEPHANIE S 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 01/17/2011 JOLLY DELANEY MD 786.52 Chest Wall Pain 01/17/2011 JOLLY DELANEY MD 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 01/17/2011 ЕЛЕНА MUÑOZ, STEPHANIE S 786.52 Chest Wall Pain 01/17/2011 ЕЛЕНА MUÑOZ, STEPHANIE S 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 03/18/2011 SHAW DO, CACHORRO K 578.1 BLOOD IN STOOL 03/18/2011 578.1 BLOOD IN STOOL 03/18/2011 SHAW DO, CACHORRO K 578.1 Blood [...] CACHORRO K 578.1 Blood In Stool 03/18/2011 SIMRAN LEGER APRN 578.1 Blood In Stool 03/18/2011 SIMRAN LEGER APRN 578.1 Blood In Stool 03/18/2011 SHAW DO, CACHORRO K 578.1 Blood In Stool 03/18/2011 TANVIR JAMES, CLARIBEL Braun 578.1 Blood In Stool 03/18/2011 STEPHANIE CHRISTIANSEN APRN S 578.1 Blood In Stool 03/18/2011 ELAINA JAMES, JOLLY 578.1 Blood In Stool 03/18/2011 STEPHANIE CHRISTIANSEN APRN S 578.1 Blood In Stool 03/25/2011 SHAW DO CACHORRO K 789.06 ABDOMINAL PAIN EPIGASTRIC 03/25/2011 [...] K V76.51 COLON CANCER SCREENING 03/25/2011 VENUS PHD, JE Cabrera 789.06 Abdominal Pain Epigastric 03/25/2011 VENUS SUN, JE Cabrera V76.51 COLON CANCER SCREENING 03/25/2011 VENUS SUN, JE Cabrera 789.06 Abdominal Pain Epigastric 03/25/2011 VENUS SUN, JE Cabrera V76.51 COLON CANCER SCREENING 03/25/2011 SHAW DO, CACHORRO K 789.06 Abdominal Pain Epigastric 03/25/2011 SHAW DO, CACHORRO K V76.51 COLON CANCER SCREENING 03/25/2011 ARSEN TRAFFIC WORKFORCE REPRESENTATIVE, SIMRAN 789.06 Abdominal Pain Epigastric 03/25/2011 ARSEN TRAFFIC WORKFORCE REPRESENTATIVE, SIMRAN V76.51 COLON CANCER SCREENING 03/25/2011 ARSEN TRAFFIC WORKFORCE REPRESENTATIVE, SIMRAN 789.06 Abdominal Pain Epigastric 03/25/2011 ARSEN TRAFFIC WORKFORCE REPRESENTATIVE, SIMRAN V76.51 COLON CANCER SCREENING 03/25/2011 SHAW DO, CACHORRO K 789.06 Abdominal Pain Epigastric 03/25/2011 SHAW DO, CACHORRO K V76.51 COLON CANCER SCREENING 03/25/2011 TANVIR JAMES, CLARIBEL Braun 789.06 Abdominal Pain Epigastric 03/25/2011 CLARIBEL RAMEY MD V76.51 COLON CANCER SCREENING 03/25/2011 STEPHANIE CHRISTIANSEN APRN S 789.06 Abdominal Pain Epigastric 03/25/2011 STEPHANIE CHRISTIANSEN APRN S V76.51 COLON CANCER SCREENING 03/25/2011 JOLLY DELANEY MD 789.06 Abdominal Pain Epigastric 03/25/2011 JOLLY DELANEY MD V76.51 COLON CANCER SCREENING 03/25/2011 STEPHANIE CHRISTIANSEN APRN S 789.06 Abdominal Pain Epigastric 03/25/2011 STEPHANIE CHRISTIANSEN APRN S V76.51 COLON CANCER SCREENING 04/08/2011 SHAW [...] K V58.69 MEDICATION HIGH RISK 04/08/2011 VENUS PHD, JE Cabrera V58.69 MEDICATION HIGH RISK 04/08/2011 VENUS PHD, JE Cabrera V58.69 MEDICATION HIGH RISK 04/08/2011 SHAW DO, CACHORRO K V58.69 MEDICATION HIGH RISK 04/08/2011 ARSEN TRAFFIC WORKFORCE REPRESENTATIVE, SIMRAN V58.69 MEDICATION HIGH RISK 04/08/2011 ARSEN TRAFFIC WORKFORCE REPRESENTATIVE, SIMRAN V58.69 MEDICATION HIGH RISK 04/08/2011 SHAW DO, CACHORRO K V58.69 MEDICATION HIGH RISK 04/08/2011 TANVIR JAMES, CLARIBEL Braun V58.69 MEDICATION HIGH RISK 04/08/2011 ЕЛЕНА MUÑOZ, STEPHANIE S V58.69 MEDICATION HIGH RISK 04/08/2011 ELAINA JAMES, JOLLY V58.69 MEDICATION HIGH RISK 04/08/2011 ЕЛЕНА MUÑOZ, STEPHANIE S V58.69 MEDICATION HIGH RISK 06/20/2011 [...] CACHORRO K 466.0 Acute Bronchitis 06/20/2011 VENUS SUN, JE Cabrera 466.0 Acute Bronchitis 06/20/2011 VENUS SUN, JE Cabrera 466.0 Acute Bronchitis 06/20/2011 SHAW DO, CACHORRO K 466.0 Acute Bronchitis 06/20/2011 ARSEN TRAFFIC WORKFORCE REPRESENTATIVE, SIMRAN 466.0 Acute Bronchitis 06/20/2011 ARSEN TRAFFIC WORKFORCE REPRESENTATIVE, SIMRAN 466.0 Acute Bronchitis 06/20/2011 SHAW DO, CACHORRO K 466.0 Acute Bronchitis 06/20/2011 TANVIR JAMES, CLARIBEL Braun 466.0 Acute Bronchitis 06/20/2011 ЕЛЕНА MUÑOZ, STEPHANIE [...] K 338.29 Other Chronic Pain 2011 VENUS PHD, JE Cabrera 338.29 Other Chronic Pain 2011 VENUS PHD, JE Cabrera 338.29 Other Chronic Pain 2011 SHAW DO, CACHORRO K 338.29 Other Chronic Pain 2011 SIMRAN LEGER APRN 338.29 Other Chronic Pain 2011 SIMRAN LEGER APRN 338.29 Other Chronic Pain 2011 CACHORRO SHAW DO 338.29 Other Chronic Pain 2011 TANVIR JAMES, [...] PERSONAL HISTORY OTH SPEC DIGESTIVE SYST 11/19/2011 CACHORRO SHAW DO 787.91 DIARRHEA 11/19/2011 787.91 DIARRHEA 11/19/2011 CACHORRO SHAW DO 787.91 Diarrhea 11/19/2011 CACHORRO SHAW DO 787.91 Diarrhea 11/19/2011 787.91 Diarrhea 11/19/2011 CACHORRO SHAW DO 787.91 Diarrhea 11/19/2011 787.91 Diarrhea 11/19/2011 787.91 Diarrhea 11/19/2011 787.91 Diarrhea 11/19/2011 CACHORRO SHAW DO 787.91 Diarrhea 11/19/2011 SUMIT SHAW DOA K 787.91 Diarrhea 11/19/2011 SHAW DO, CACHORRO [...] 11/19/2011 SIMRAN LEGER APRN 787.91 Diarrhea 11/19/2011 SHAW DO CACHORRO K 787.91 Diarrhea 11/19/2011 TANVIR JAMES, CLARIBEL Braun 787.91 Diarrhea 11/19/2011 STEPHANIE CHRISTIANSEN APRN S 787.91 Diarrhea 11/19/2011 JOLLY DELANEY MD 787.91 Diarrhea 11/19/2011 STEPHANIE CHRISTIANSEN APRN S 787.91 Diarrhea 11/21/2011 Ot 250.00 DIAB KYLE [...] LONG-TERM ( CURRENT) USE OF INSULIN 12/11/2011 SHAW DO, CACHORRO K 780.4 DIZZINESS AND VERTIGO 12/11/2011 780.4 DIZZINESS AND VERTIGO 12/11/2011 SHAW DO, CACHORRO K 780.4 Dizziness And Vertigo 12/11/2011 SHAW DO, CACHORRO K 780.4 Dizziness And Vertigo 12/11/2011 780.4 Dizziness And Vertigo 12/11/2011 SHAW DO, CACHORRO K 780.4 Dizziness And Vertigo 12/11/2011 780.4 Dizziness [...] MUÑOZ 780.4 Dizziness And Vertigo 12/11/2011 ARSEN TRAFFIC WORKFORCE REPRESENTATIVESIMRAN Braun 780.4 Dizziness And Vertigo 12/11/2011 SHAW [...] 724.2 Lumbago/ Low Back Pain 03/18/2012 VENUS PHD, JE Cabrera 724.2 Lumbago/ Low Back Pain 03/18/2012 VENUS PHD, JE Cabrera 724.2 Lumbago/ Low Back Pain 03/18/2012 SHAW DO, CACHORRO K 724.2 Lumbago/ Low Back Pain 03/18/2012 SIMRAN LEGER APRN 724.2 Lumbago/ Low Back Pain 03/18/2012 SIMRAN LEGER APRN 724.2 Lumbago/ Low Back Pain 03/18/2012 SHAW CACHORRO CASH K 724.2 Lumbago/ Low Back Pain 03/18/2012 TANVIR JAMES, CLARIBEL Braun 724.2 Lumbago/ Low Back Pain 03/18/2012 STEPHANIE CHRISTIANSEN APRN 724.2 Lumbago/ Low Back Pain 03/18/2012 ELAINA JAMES, JOLLY 724.2 Lumbago/ Low Back Pain 03/18/2012 STEPHANIE CHRISTIANSEN APRN 724.2 Lumbago/ Low Back Pain 03/19/2012 VALERIA CASH CACHORRO K 293.0 DELIRIUM DUE TO CONDITIONS CLASSIFIED ELSEWHERE 03/19/2012 SHAW DO CACHORRO K 780.09 OR DELERIUM NOS 03/19/2012 SHAW DO CACHORRO K 293.0 DELIRIUM DUE TO CONDITIONS CLASSIFIED ELSEWHERE 03/19/2012 SHAW DO CACHORRO K 780.09 OR DELERIUM NOS 03/19/2012 293.0 DELIRIUM DUE TO CONDITIONS CLASSIFIED ELSEWHERE 03/19/2012 780.09 OR DELERIUM NOS 03/19/2012 SHAW DO CACHORRO K 293.0 DELIRIUM DUE TO CONDITIONS CLASSIFIED ELSEWHERE 03/19/2012 SHAW DO, CACHORRO K 780.09 OR DELERIUM NOS 03/19/2012 293.0 DELIRIUM DUE TO CONDITIONS CLASSIFIED ELSEWHERE 03/19/2012 780.09 OR DELERIUM NOS 03/19/2012 293.0 DELIRIUM DUE TO CONDITIONS CLASSIFIED ELSEWHERE 03/19/2012 780.09 OR DELERIUM NOS 03/19/2012 293.0 DELIRIUM DUE TO CONDITIONS CLASSIFIED ELSEWHERE 03/19/2012 780.09 OR DELERIUM NOS 03/19/2012 SHWA DO CACHORRO K 293.0 DELIRIUM DUE TO CONDITIONS CLASSIFIED ELSEWHERE 03/19/2012 SHAW DO, CACHORRO K 780.09 OR DELERIUM NOS 03/19/2012 SHAW DO, CACHORRO K 293.0 DELIRIUM DUE TO CONDITIONS CLASSIFIED ELSEWHERE 03/19/2012 SHAW DO CACHORRO K 780.09 OR DELERIUM NOS 03/19/2012 SHAW DO CACHORRO K 293.0 DELIRIUM DUE TO CONDITIONS [...] CACHORRO K 780.09 OR DELERIUM NOS 03/19/2012 RASEN TRAFFIC WORKFORCE REPRESENTATIVESIMRAN Braun 293.0 DELIRIUM DUE TO CONDITIONS CLASSIFIED ELSEWHERE 03/19/2012 ARSEN TRAFFIC WORKFORCE REPRESENTATIVE, SIMRAN 780.09 OR DELERIUM NOS 03/19/2012 ARSEN TRAFFIC WORKFORCE REPRESENTATIVE, SIMRAN 293.0 DELIRIUM DUE TO CONDITIONS CLASSIFIED ELSEWHERE 03/19/2012 ARSEN TRAFFIC WORKFORCE REPRESENTATIVE, SIMRAN 780.09 OR DELERIUM NOS 03/19/2012 CACHORRO SHAW DO 293.0 DELIRIUM DUE TO CONDITIONS CLASSIFIED ELSEWHERE 03/19/2012 CACHORRO SHAW DO 780.09 OR DELERIUM NOS 03/19/2012 CLARIBEL RAMEY [...] CHRISTIANSEN APRN S 780.09 OR DELERIUM NOS 03/21/2012 Ot 244.9 HYPOTHYROIDISM NOS 03/21/2012 Ot 250.02 DIAB KYLE WO COMPL, TYPE II OR UNSPEC TY 03/21/2012 Ot 300.00 ANXIETY STATE NOS 03/21/2012 Ot 305.1 TOBACCO USE DISORDER 03/21/2012 Ot 305.50 OPIOID ABUSE -UNSPEC 03/21/2012 Ot 311 DEPRESSIVE DISORDER NEC 03/21/2012 Ot 414.01 CORONARY ATHEROSCLEROSIS OF [place] CORON 03/21/2012 Ot 433.10 CAROTID ARTERY OCCLUSION [...] LONG-TERM ( CURRENT) USE OF INSULIN 03/25/2012 CACHORRO SHAW DO 780.50 SLEEP DISTURBANCE, UNSPECIFIED 03/25/2012 SHAW DO, [...] K 780.50 SLEEP DISTURBANCE, UNSPECIFIED 03/25/2012 VENUS SUN, JE Cabrera 780.50 SLEEP DISTURBANCE, UNSPECIFIED 03/25/2012 VENUS SUN, JE Cabrera 780.50 SLEEP DISTURBANCE, UNSPECIFIED 03/25/2012 SHAW DO, CACHORRO K 780.50 SLEEP DISTURBANCE, UNSPECIFIED 03/25/2012 SIMRAN LEGER APRN 780.50 SLEEP DISTURBANCE, UNSPECIFIED 03/25/2012 ARSENSIMRAN WREN APRN 780.50 SLEEP DISTURBANCE, UNSPECIFIED 03/25/2012 SHAW DO, CAHCORRO K 780.50 SLEEP DISTURBANCE, UNSPECIFIED 03/25/2012 TANVIR JAMES, CLARIBEL Braun 780.50 SLEEP DISTURBANCE, UNSPECIFIED 03/25/2012 STEPHANIE CHRISTIANSEN APRN 780.50 SLEEP DISTURBANCE, UNSPECIFIED 03/25/2012 JOLLY DELANEY [...] DO, CACHORRO K 780.79 fatigue 09/09/2012 VENUS PHD, JE Cabrera 780.79 fatigue 09/09/2012 VENUS PHD, JE Cabrera 780.79 fatigue 09/09/2012 SHAW DO, CACHORRO K 780.79 fatigue 09/09/2012 ARSEN TRAFFIC WORKFORCE REPRESENTATIVE, SIMRAN 780.79 fatigue 09/09/2012 ARSEN TRAFFIC WORKFORCE REPRESENTATIVE, SIMRAN 780.79 fatigue 09/09/2012 SHAW DO, CACHORRO K 780.79 fatigue 09/09/2012 TANVIR JAMES, CLARIBEL Braun 780.79 fatigue 09/09/2012 ЕЛЕНА MUÑOZ, STEPHANIE S 780.79 fatigue 09/09/2012 JOLLY DELANEY MD 780.79 fatigue 09/09/2012 ЕЛЕНА MUÑOZ STEPHANIE S 780.79 fatigue 11/02/2012 SHAW DO, [...] OSTEOARTHROSIS LOCALIZED PRIMARY INVOLVING LOWER LEG 11/02/2012 VALERIA CASH CACHORRO K 724.79 OTHER DISORDERS OF COCCYX 11/02/2012 SHAW DO CACHORRO K 715.16 OSTEOARTHROSIS LOCALIZED PRIMARY INVOLVING LOWER LEG 11/02/2012 SHAW DO CACHORRO K 724.79 OTHER DISORDERS OF COCCYX 11/02/2012 JOLLY DELANEY MD 715.16 OSTEOARTHROSIS LOCALIZED PRIMARY INVOLVING LOWER LEG 11/02/2012 JOLLY DELANEY MD 724.79 OTHER DISORDERS OF COCCYX 11/02/2012 SHAW DO CACHORRO K 715.16 OSTEOARTHROSIS LOCALIZED PRIMARY INVOLVING LOWER LEG 11/02/2012 SHAW DO CACHORRO K 724.79 OTHER DISORDERS OF COCCYX 11/02/2012 SHAW DO CACHORRO K 715.16 OSTEOARTHROSIS LOCALIZED PRIMARY INVOLVING LOWER LEG 11/02/2012 SHAW DO CACHORRO K 724.79 OTHER DISORDERS OF COCCYX 11/02/2012 SHAW DO CACHORRO K 715.16 OSTEOARTHROSIS LOCALIZED PRIMARY INVOLVING LOWER LEG 11/02/2012 VALERIA CASH CACHORRO K 724.79 OTHER DISORDERS OF COCCYX 11/02/2012 VENUS SUN, JE Cabrera 715.16 OSTEOARTHROSIS LOCALIZED PRIMARY INVOLVING LOWER LEG 11/02/2012 JE DONOVAN PHD 724.79 OTHER DISORDERS OF COCCYX 11/02/2012 JE DONOVAN PHD 715.16 OSTEOARTHROSIS LOCALIZED PRIMARY INVOLVING LOWER LEG 11/02/2012 JE DONOVAN PHD 724.79 OTHER DISORDERS OF COCCYX 11/02/2012 SHAW DO CACHORRO K 715.16 OSTEOARTHROSIS LOCALIZED PRIMARY INVOLVING LOWER LEG 11/02/2012 VALERIA CASH CACHORRO K 724.79 OTHER DISORDERS OF COCCYX 11/02/2012 ARSEN TRAFFIC WORKFORCE REPRESENTATIVE, SIMRAN 715.16 OSTEOARTHROSIS LOCALIZED PRIMARY INVOLVING LOWER LEG 11/02/2012 ARSEN TRAFFIC WORKFORCE REPRESENTATIVE, SIMRAN 724.79 OTHER DISORDERS OF COCCYX 11/02/2012 ARSEN TRAFFIC WORKFORCE REPRESENTATIVE, SIMRAN 715.16 OSTEOARTHROSIS LOCALIZED PRIMARY INVOLVING LOWER LEG 11/02/2012 ARSEN TRAFFIC WORKFORCE REPRESENTATIVE, SIMRAN 724.79 OTHER DISORDERS OF COCCYX 11/02/2012 SHAW DO CACHORRO K 715.16 OSTEOARTHROSIS LOCALIZED PRIMARY INVOLVING LOWER LEG 11/02/2012 VALERIA CASH CACHORRO K 724.79 OTHER DISORDERS OF COCCYX 11/02/2012 TANVIR JAMES, CLARIBEL N 715.16 OSTEOARTHROSIS LOCALIZED PRIMARY INVOLVING LOWER LEG 11/02/2012 CLARIBEL RAMEY MD N 724.79 OTHER DISORDERS OF COCCYX 11/02/2012 STEPHANIE CHRISTIANSEN APRN S 715.16 OSTEOARTHROSIS LOCALIZED PRIMARY INVOLVING LOWER LEG 11/02/2012 ALBERT CHRISTIANSEN APRNNDA S 724.79 OTHER DISORDERS OF COCCYX 11/02/2012 JOLLY DELANEY MD 715.16 OSTEOARTHROSIS LOCALIZED PRIMARY INVOLVING LOWER LEG 11/02/2012 JOLLY DELANEY MD 724.79 OTHER DISORDERS OF COCCYX 11/02/2012 STEPHANIE CHRISTIANSEN APRN S 715.16 OSTEOARTHROSIS LOCALIZED PRIMARY INVOLVING LOWER LEG 11/02/2012 STEPHANIE CHRISTIANSEN APRN S 724.79 OTHER DISORDERS OF COCCYX 11/06/2012 YOLY DURBIN MD Ot 786.52 PAINFUL RESPIRATION 11/06/2012 YOLY DURBIN MD Ot E000.8 OTHER EXTERNAL CAUSE STATUS 11/06/2012 RAMAKRISHNA JAMES, YOLY Larios Ot E888.1 FALL STRIKING OBJECT NEC 01/19/2013 SUMIT SHAW DOA K 728.87 MUSCLE [...] TREATMENT PRESENTING HAZARDS TO HEALTH 01/19/2013 SHAW DO, CACHORRO K 728.87 MUSCLE WEAKNESS (GENERALIZED) 01/19/2013 SUMIT SHAW DOA K 782.0 DISTURBANCE OF SKIN SENSATION 01/19/2013 CACHORRO SHAW DO K V15.81 PERSONAL HISTORY OF NONCOMPLIANCE WITH MEDICAL TREATMENT PRESENTING HAZARDS TO HEALTH 01/19/2013 ARSEN MUÑOZ SIMRAN 728.87 MUSCLE WEAKNESS (GENERALIZED) 01/19/2013 ARSEN TRAFFIC WORKFORCE REPRESENTATIVE, SIMRAN 782.0 DISTURBANCE OF SKIN SENSATION 01/19/2013 ARSEN TRAFFIC WORKFORCE REPRESENTATIVE, SIMRAN V15.81 PERSONAL HISTORY OF NONCOMPLIANCE WITH MEDICAL TREATMENT PRESENTING HAZARDS TO HEALTH 01/19/2013 ARSEN WANDA SIMRAN 728.87 MUSCLE WEAKNESS (GENERALIZED) 01/19/2013 ARSEN WANDA SIMRAN 782.0 DISTURBANCE OF SKIN SENSATION 01/19/2013 ARSEN MUÑOZ SIMRAN V15.81 PERSONAL HISTORY OF NONCOMPLIANCE WITH MEDICAL TREATMENT PRESENTING HAZARDS TO HEALTH 01/19/2013 CACHORRO SHAW DO 728.87 MUSCLE WEAKNESS (GENERALIZED) 01/19/2013 CACHORRO SHAW DO K 782.0 DISTURBANCE OF SKIN SENSATION 01/19/2013 CACHORRO SHAW DO V15.81 PERSONAL HISTORY OF NONCOMPLIANCE WITH MEDICAL TREATMENT PRESENTING HAZARDS TO HEALTH 01/19/2013 CLARIBEL RAMEY MD 728.87 MUSCLE WEAKNESS (GENERALIZED) 01/19/2013 CLARIBEL RAMEY MD 782.0 DISTURBANCE OF SKIN SENSATION 01/19/2013 CLARIBEL RAMEY MD V15.81 PERSONAL HISTORY OF NONCOMPLIANCE WITH MEDICAL TREATMENT PRESENTING HAZARDS TO HEALTH 01/19/2013 STEPHANIE CHRISTIANSEN APRN 728.87 MUSCLE WEAKNESS (GENERALIZED) 01/19/2013 STEPHANIE CHRISTIANSEN [...] MEDICAL TREATMENT PRESENTING HAZARDS TO HEALTH 01/19/2013 ЕЛЕНА TRAFFIC WORKFORCE REPRESENTATIVE, STEPHANIE S 728.87 MUSCLE WEAKNESS (GENERALIZED) 01/19/2013 ALBERT CHRISTIANSEN APRNNDA S 782.0 DISTURBANCE OF SKIN SENSATION 01/19/2013 ЕЛЕНА MUÑOZ STEPHANIE S V15.81 PERSONAL HISTORY OF NONCOMPLIANCE WITH [...] Cabrera 724.5 BACK PAIN, GENERAL 02/02/2013 VENUS SUN, JE Cabrera 724.5 BACK PAIN, GENERAL 02/02/2013 SHAW DO, CACHORRO K 724.5 BACK PAIN, GENERAL 02/02/2013 ARSEN TRAFFIC WORKFORCE REPRESENTATIVE, SIMRAN 724.5 BACK PAIN, GENERAL 02/02/2013 ARSEN TRAFFIC WORKFORCE REPRESENTATIVE, SIMRAN 724.5 BACK PAIN, GENERAL 02/02/2013 SHAW DO, CACHORRO K 724.5 BACK PAIN, GENERAL 02/02/2013 CLARIBEL RAMEY MD 724.5 BACK PAIN, GENERAL 02/02/2013 ALBERT CHRISTIANSEN APRNNDA S 724.5 BACK PAIN, GENERAL 02/02/2013 JOLLY DELANEY MD4.5 BACK PAIN, GENERAL 02/02/2013 ALBERT CHRISTIANSEN APRNNDA S 724.5 BACK PAIN, GENERAL 02/16/2013 BRIAN HUGO TRAFFIC WORKFORCE REPRESENTATIVE Ot 465.9 ACUTE URI NOS 02/16/2013 BRIAN HUGO TRAFFIC WORKFORCE REPRESENTATIVE Ot 719.41 JOINT PAIN-SHLDER 06/03/2013 SHAW DO, CACHORRO K 285.9 ANEMIA 06/03/2013 SHAW DO, CACHORRO K 285.9 ANEMIA 06/03/2013 SHAW DO, CACHORRO K 285.9 ANEMIA 06/03/2013 JOLLY DELANEY MD 285.9 ANEMIA 06/03/2013 SHAW DO, CACHORRO K 285.9 ANEMIA 06/03/2013 SHAW DO, CACHORRO K 285.9 ANEMIA 06/03/2013 SHAW DO, CACHORRO K 285.9 ANEMIA 06/03/2013 VENUS SUN, JE Cabrera 285.9 ANEMIA 06/03/2013 VENUS SUN, JE Cabrera 285.9 ANEMIA 06/03/2013 SHAW DO, CACHORRO K 285.9 ANEMIA 06/03/2013 SIMRAN LEGER APRN 285.9 ANEMIA 06/03/2013 SIMRAN LEGER APRN 285.9 ANEMIA 06/03/2013 SHAW DO, CACHORRO K 285.9 ANEMIA 06/03/2013 TANVIR JAMES, CLARIBEL N 285.9 ANEMIA 06/03/2013 STEPHANIE CHRISTIANSEN APRN S 285.9 ANEMIA 06/03/2013 JOLLY DELANEY MD 285.9 ANEMIA 06/03/2013 STEPHANIE CHRISTIANSEN APRN S 285.9 ANEMIA 06/23/2013 BRIAN HUGO TRAFFIC WORKFORCE REPRESENTATIVE Ot 305.50 OPIOID ABUSE-UNSPEC 06/23/2013 BRIAN HUGO TRAFFIC WORKFORCE REPRESENTATIVE Ot 780.97 ALTERED MENTAL STATUS 06/28/2013 SHAW DO, CACHORRO K Ot 244.9 HYPOTHYROIDISM NOS 06/28/2013 SHAW DO, CACHORRO K Ot 250.60 DIAB W NEURO MANIFEST, TYPE II OR UNSPEC 06/28/2013 SHAW DO CACHORRO K Ot 275.2 DIS MAGNESIUM METABOLISM 06/28/2013 SHAW DO, CACHORRO K Ot 276.1 HYPOSMOLALITY 06/28/2013 SHAW DO, CACHORRO K Ot 276.8 HYPOPOTASSEMIA 06/28/2013 SHAW DO, CACHORRO K Ot 300.00 ANXIETY STATE NOS 06/28/2013 SHAW DO, CACHORRO K Ot 305.1 TOBACCO USE DISORDER 06/28/2013 SHAW DO, CACHORRO K Ot 305.90 DRUG ABUSE NEC-UNSPEC 06/28/2013 SHAW DO, CACHORRO K Ot 311 DEPRESSIVE DISORDER NEC 06/28/2013 SHAW DO CACHORRO K Ot 345.90 EPILEPSY UNSPEC W/O MENTION INTRACTABLE 06/28/2013 CACHORRO SHAW DO Ot 349.82 TOXIC ENCEPHALOPATHY 06/28/2013 CACHORRO SHAW DO Ot 357.2 NEUROPATHY IN DIABETES 06/28/2013 CACHORRO SHAW DO Ot 401.9 HYPERTENSION NOS 06/28/2013 CACHORRO SHAW DO Ot 414.01 CORONARY ATHEROSCLEROSIS OF [place] CORON 06/28/2013 CACHORRO SHAW DO Ot 433.10 CAROTID ARTERY OCCLUSION W O CEREBRAL IN 06/28/2013 CACHORRO SHAW DO Ot 496 CHR AIRWAY OBSTRUCT NEC 06/28/2013 CACHORRO SHAW DO Ot 518.81 ACUTE RESPIRATORY FAILURE 06/28/2013 CACHORRO SHAW DO Ot 716.90 ARTHROPATHY NOS-UNSPEC 06/28/2013 CACHORRO SHAW DO Ot 722.6 DISC DEGENERATION NOS 06/28/2013 CACHORRO SHAW DO Ot 965.02 POISONING-METHADONE 06/28/2013 CACHORRO SHAW DO [...] Ot V45.82 PERCUTANEOUS TRANSLUM CORON ANGIOPLASTY 06/28/2013 CACHORRO SHAW DO Ot V58.67 LONG-TERM (CURRENT) USE OF INSULIN 07/19/2013 CACHORRO SHAW DO 276.1 HYPONATREMIA 07/19/2013 CACHORRO SHAW DO 790.6 ABNORMAL LFT (LIVER FUNCTION TEST) 07/19/2013 JOLLY DELANEY MD 276.1 HYPONATREMIA 07/19/2013 JOLLY DELANEY MD 790.6 ABNORMAL LFT (LIVER FUNCTION TEST) 07/19/2013 CACHORRO SHAW DO 276.1 HYPONATREMIA 07/19/2013 CACHORRO SHAW DO 790.6 ABNORMAL LFT (LIVER FUNCTION TEST) 07/19/2013 SHAW DO, CACHORRO K 276.1 HYPONATREMIA 07/19/2013 SHAW , CACHORRO K 790.6 ABNORMAL LFT (LIVER FUNCTION TEST) 07/19/2013 SHAW DO, CACHORRO K 276.1 HYPONATREMIA 07/19/2013 SHAW , CACHORRO K 790.6 ABNORMAL LFT (LIVER FUNCTION TEST) 07/19/2013 JE DONOVAN PHD 276.1 HYPONATREMIA 07/19/2013 JE DONOVAN PHD 790.6 ABNORMAL LFT (LIVER FUNCTION TEST) 07/19/2013 JE DONOVAN PHD 276.1 HYPONATREMIA 07/19/2013 VENUS SUN, JE Cabrera 790.6 ABNORMAL LFT (LIVER FUNCTION TEST) 07/19/2013 SHAW , CACHORRO K 276.1 HYPONATREMIA 07/19/2013 SHAW , CACHORRO K 790.6 ABNORMAL LFT (LIVER FUNCTION TEST) 07/19/2013 ARSEN TRAFFIC WORKFORCE REPRESENTATIVE, SIMRAN 276.1 HYPONATREMIA 07/19/2013 ARSEN WANDA SIMRAN 790.6 ABNORMAL LFT (LIVER FUNCTION TEST) 07/19/2013 ARSEN TRAFFIC WORKFORCE REPRESENTATIVE, SIMRAN 276.1 HYPONATREMIA 07/19/2013 ARSEN TRAFFIC WORKFORCE REPRESENTATIVE, SIMRAN 790.6 ABNORMAL LFT (LIVER FUNCTION TEST) 07/19/2013 VALERIA CASH, CACHORRO K 276.1 HYPONATREMIA 07/19/2013 SHAW , CACHORRO K 790.6 ABNORMAL LFT (LIVER FUNCTION TEST) 07/19/2013 CLARIBEL RAMEY MD N 276.1 HYPONATREMIA 07/19/2013 CLARIBEL RAMEY MD 790.6 ABNORMAL LFT (LIVER FUNCTION TEST) 07/19/2013 ALBERT CHRISTIANSEN APRNNDA S 276.1 HYPONATREMIA 07/19/2013 ЕЛЕНА MUÑOZ STEPHANIE S 790.6 ABNORMAL LFT (LIVER FUNCTION TEST) 07/19/2013 JOLLY DELANEY MD 276.1 HYPONATREMIA 07/19/2013 JOLLY DELANEY MD 790.6 ABNORMAL LFT (LIVER FUNCTION TEST) 07/19/2013 ALBERT CHRISTIANSEN APRNNDA S 276.1 HYPONATREMIA 07/19/2013 STEPHANIE CHRISTIANSEN APRN S 790.6 ABNORMAL LFT (LIVER FUNCTION TEST) 08/27/2013 BINDU DURBIN MDNEY K Ot 250.80 DIAB W OTH SPEC MANIFEST, TYPE II OR UNS 09/04/2013 LORENA JAMES, CAROL Schrader Ot 250.80 DIAB W OTH SPEC MANIFEST, [...] INFARCT 09/10/2013 EMELIA BORJAS Ot 440.24 ATHEROSCL [place] ARTERIES EXTREMITIES W 09/10/2013 EMELIA BORJAS Ot [...] APRN V49.72 OTHER TOE(S) AMPUTATION STATUS 10/08/2013 ARSEN MUÑOZ SIMRAN V49.72 OTHER TOE(S) AMPUTATION STATUS 10/08/2013 CACHORRO SHAW DO V49.72 OTHER TOE(S) AMPUTATION STATUS 10/08/2013 CLARIBEL RAMEY MD V49.72 OTHER TOE(S) AMPUTATION STATUS 10/08/2013 STEPHANIE CHRISTIANSEN APRN S V49.72 OTHER TOE(S) AMPUTATION STATUS 10/08/2013 JOLLY DELANEY MD V49.72 OTHER TOE(S) AMPUTATION STATUS 10/08/2013 PAULINA CHRISTIANSEN APRNA S V49.72 OTHER TOE(S) AMPUTATION STATUS 11/02/2013 VENUS [...] MD 294.9 OR COG DIS NOS 11/02/2013 PAULINA CHRISTIANSEN APRNA S 294.9 OR COG DIS NOS 11/02/2013 JOLLY DELANEY MD 294.9 OR COG DIS NOS 11/02/2013 PAULINA CHRISTIANSEN APRNA S 294.9 OR COG DIS NOS 12/17/2013 [...] W/O PSYCHOTIC BEHAVIOR 12/17/2013 STEPHANIE CHRISTIANSEN APRN 296.33 MO DEPRESSIVE RECURRENT SEVERE W/O PSYCHOTIC BEHAVIOR 01/06/2014 CACHORRO SHAW DO Ot 244.9 HYPOTHYROIDISM NOS 01/06/2014 CACHORRO SHAW DO Ot 250.00 DIAB KYLE WO COMPL, TYPE II OR UNSPEC TY 01/06/2014 CACHORRO SHAW DO Ot 272.0 PURE HYPERCHOLESTEROLEM 01/06/2014 CACHORRO SHAW DO Ot 276.1 HYPOSMOLALITY 01/06/2014 CACHORRO SHAW DO Ot 300.00 ANXIETY STATE NOS 01/06/2014 CACHORRO SHAW DO Ot 305.00 ALCOHOL ABUSE-UNSPEC 01/06/2014 CACHORRO SHAW DO Ot 305.1 TOBACCO USE DISORDER 01/06/2014 CACHORRO SHAW DO Ot 305.50 OPIOID ABUSE-UNSPEC 01/06/2014 CACHORRO SHAW DO Ot 345.90 EPILEPSY UNSPEC W/O MENTION INTRACTABLE 01/06/2014 CACHORRO SHAW DO Ot 401.9 HYPERTENSION NOS 01/06/2014 CACHORRO SHAW DO Ot 412 OLD MYOCARDIAL INFARCT 01/06/2014 CACHORRO SHAW DO Ot 414.01 CORONARY ATHEROSCLEROSIS OF [place] CORON 01/06/2014 CACHORRO SHAW DO Ot 414.8 CHR ISCHEMIC HRT DIS NEC 01/06/2014 CACHORRO SHAW DO Ot 433.10 CAROTID ARTERY OCCLUSION W O CEREBRAL IN 01/06/2014 CACHORRO SHAW DO Ot 433.30 MULT BILTRAL ARTERY OCCLUSION WO CEREBRA 01/06/2014 CACHORRO SHAW DO Ot 438.89 OTH LATE EFFECT-CEREBROVASCULAR DISEASE 01/06/2014 CACHORRO SHAW DO Ot 440.20 ATHEROSCLEROSIS [place] ARTERIES EXTREMIT 01/06/2014 CACHORRO SHAW DO Ot [...] RAMEY MD Ot 414.01 CORONARY ATHEROSCLEROSIS OF [place] CORON 01/20/2014 CLARIBEL RAMEY MD Ot 433.10 CAROTID ARTERY OCCLUSION W O CEREBRAL IN 01/20/2014 CLARIBEL RAMEY MD Ot 433.30 MULT BILTRAL ARTERY OCCLUSION WO CEREBRA 01/20/2014 CLARIBEL RAMEY MD Ot 438.89 OTH LATE EFFECT-CEREBROVASCULAR DISEASE 01/20/2014 CLARIBEL RAMEY MD Ot 440.20 ATHEROSCLEROSIS [place] ARTERIES EXTREMIT 01/20/2014 CLARIBEL RAMEY MD Ot [...] Ot V58.69 OTH MED,LT,CURRENT USE 04/20/2014 JOLLY DELANYE MD 304.90 UNSPECIFIED DRUG DEPENDENCE UNSPECIFIED USE [...] (CURRENT) USE OF INSULIN 09/22/2014 BRIAN HUGO APRN Ot 244.9 HYPOTHYROIDISM NOS 09/22/2014 BRIAN HUGO APRN Ot 250.00 DIAB KYLE WO COMPL, TYPE II OR UNSPEC TY 09/22/2014 BRIAN HUGO APRN Ot 496 CHR AIRWAY OBSTRUCT NEC 09/22/2014 BRIAN HUGO APRN Ot 780.97 ALTERED MENTAL STATUS 09/22/2014 BRIAN HUGO APRN Ot V58.67 LONG-TERM (CURRENT) USE OF INSULIN 09/22/2014 BRIAN HUGO APRN Ot V58.69 OTH MED,LT,CURRENT USE 09/22/2014 Ot 433.30 09/22/2014 Ot 433.10 09/22/2014 Ot 433.30 10/21/2014 Ot 433.30 10/21/2014 Ot 433.10 10/21/2014 Ot 433.30 02/10/2015 Ot 433.30 02/10/2015 Ot 433.10 02/10/2015 Ot 433.30 02/24/2015 Ot 433.30 02/24/2015 Ot 433.10 02/24/2015 Ot 433.30 02/28/2015 Ot 433.30 02/28/2015 Ot 433.10 02/28/2015 Ot 433.30 02/28/2015 STEPHANIE CHRISTIANSENP Ot E05.90 02/28/2015 STEPHANIE CHRISTIANSENP Ot E05.90 03/16/2015 STEPHANIE CHRISTIANSEN MACHINE STONECUTTER Ot E05.90 03/21/2015 STEPHANIE CHRISTIANSEN MACHINE STONECUTTER Ot E05.90 02/09/2016 Ot 433.10 CAROTID ARTERY OCCLUSION W O CEREBRAL IN 02/09/2016 Ot 433.30 MULT BILTRAL ARTERY OCCLUSION WO CEREBRA 02/09/2016 STEPHANIE CHRISTIANSEN MACHINE STONECUTTER Ot E05.90 THYROTOXICOSIS, UNSP WITHOUT THYROTOXIC 02/12/2016 JOLLY DELANEY MD Ot E11.9 TYPE 2 DIABETES MELLITUS WITHOUT COMPLIC 03/01/2016 JOLLY DELANEY MD Ot E11.9 TYPE 2 [...] PERIPHERAL VASCULAR DISEASE, UNSPECIFIED 05/28/2016 STEPHANIE CHRISTIANSEN MACHINE STONECUTTER Ot I73.9 PERIPHERAL VASCULAR DISEASE, UNSPECIFIED 06/05/2016 ELAINA JAMES, JOLLY Alcantara Ot Z87.440 PERSONAL HISTORY OF URINARY (TRACT) INFE 06/12/2016 BRIAN HUGO TRAFFIC WORKFORCE REPRESENTATIVE Ot 305.50 OPIOID ABUSE-UNSPEC 06/12/2016 BRIAN HUGO TRAFFIC WORKFORCE REPRESENTATIVE Ot 780.97 ALTERED MENTAL STATUS 06/17/2016 STEPHANIE CHRISTIANSEN Ot I73.9 PERIPHERAL VASCULAR DISEASE, UNSPECIFIED 06/19/2016 STEPHANIE CHRISTIANSEN MACHINE STONECUTTER Ot I73.9 PERIPHERAL VASCULAR DISEASE, UNSPECIFIED 06/25/2016 ELAINA JAMES, JOLLY Alcantara Ot Z87.440 PERSONAL HISTORY OF URINARY (TRACT) INFE 07/02/2016 ELAINA JAMES, JOLLY Alcantara Ot Z87.440 PERSONAL HISTORY OF URINARY (TRACT) INFE 07/06/2016 WHITE, WESLY W 244.9 UNSPECIFIED HYPOTHYROIDISM 07/06/2016 WHITE, WESLY W 250.80 07/06/2016 WHITE, WESLY W 272.4 07/06/2016 WHITEWESLY W 345.90 07/06/2016 WHITE, WESLY W 401.0 07/06/2016 WHITE, WESLY W 414.01 07/06/2016 WHITEWESLY 443.9 07/06/2016 WESLY ZHANG 491.20 OBSTRUCTIVE CHRONIC BRONCHITIS, WITHOUT EXACERBATION 07/06/2016 WESLY ZHANG 716.20 ALLERGIC ARTHRITIS, SITE UNSPECIFIED 07/06/2016 WESLY ZHANG E03.9 HYPOTHYROIDISM, UNSPECIFIED 07/06/2016 WESLY ZHANG E11.649 07/06/2016 WESLY ZHANG E78.5 HYPERLIPIDEMIA, UNSPECIFIED 07/06/2016 WESLY ZHANG F01.51 07/06/2016 WESLY ZHANG F31.9 07/06/2016 WESLY ZHANG G40.909 EPILEPSY, UNSP, NOT INTRACTABLE, WITHOUT STATUS EPILEPTICUS 07/06/2016 WESLY ZHANG I10 ESSENTIAL (PRIMARY) HYPERTENSION 07/06/2016 WESLY ZHANG I25.10 ATHSCL HEART DISEASE OF [place] CORONARY ARTERY W/O ANG PCTRS 07/06/2016 WESLY ZHANG I73.9 PERIPHERAL VASCULAR DISEASE, UNSPECIFIED 07/06/2016 WESLY ZHANG J44.9 CHRONIC OBSTRUCTIVE PULMONARY DISEASE, UNSPECIFIED 07/06/2016 WESLY ZHANG M13.80 OTHER SPECIFIED ARTHRITIS, UNSPECIFIED SITE 07/06/2016 WESLY ZHANG 300.00 ANXIETY STATE, UNSPECIFIED 07/06/2016 WESLY ZHANG F41.9 ANXIETY DISORDER, UNSPECIFIED 07/16/2016 WESLY ZHANG 250.80 07/16/2016 WESLY ZHANG 296.80 07/19/2016 DONG DO, CUCO K Ot E11.9 TYPE 2 DIABETES MELLITUS WITHOUT COMPLIC 07/19/2016 DONG DO, CUCO K Ot E83.42 HYPOMAGNESEMIA 07/19/2016 DONG DO, CUCO K Ot E86.0 DEHYDRATION 07/19/2016 DONG DO, CUCO [...] 07/19/2016 DONG DO, CUCO K Ot Z79.4 CONTINUOUS IMPROVEMENT ENGINEER (CURRENT) USE OF INSULIN 07/19/2016 DONG DO, CUCO K Ot Z79.82 SHELTER (CURRENT) USE OF ASPIRIN 07/19/2016 DONG DO, CUCO K Ot Z79.899 OTHER CONTINUOUS IMPROVEMENT ENGINEER (CURRENT) DRUG THERAPY 07/19/2016 DONG DO, CUCO [...] CUCO K Ot R19.7 DIARRHEA, UNSPECIFIED 07/22/2016 CUCO UMANA DO Ot R53.1 WEAKNESS 07/22/2016 UCCO UMANA DO Ot Z79.4 CONTINUOUS IMPROVEMENT ENGINEER (CURRENT) USE OF INSULIN 07/22/2016 CUCO UMANA DO Ot Z79.82 SHELTER (CURRENT) USE OF ASPIRIN 07/22/2016 CUCO UMANA DO Ot Z79.899 OTHER SHELTER (CURRENT) DRUG THERAPY 07/22/2016 CUCO UMANA DO Ot Z86.73 PRSNL HX OF TIA (TIA), AND CEREB INFRC W 07/22/2016 CUCO UMANA DO Ot Z95.5 PRESENCE OF CORONARY ANGIOPLASTY IMPLANT 01/12/2017 BRIAN HUGO TRAFFIC WORKFORCE REPRESENTATIVE Ot 305.50 OPIOID ABUSE-UNSPEC 01/12/2017 BRIAN HUGO TRAFFIC WORKFORCE REPRESENTATIVE Ot 780.97 ALTERED MENTAL STATUS 03/05/2017 BRIDGER JUSTICE MD Ot E03.9 HYPOTHYROIDISM, UNSPECIFIED 03/05/2017 BRIDGER JUSTICE MD Ot E11.9 TYPE 2 DIABETES MELLITUS WITHOUT COMPLIC 03/05/2017 BRIDGER JUSTICE MD Ot E78.5 HYPERLIPIDEMIA, UNSPECIFIED 03/05/2017 BRIDGER JUSTICE MD Ot F17.210 NICOTINE DEPENDENCE, CIGARETTES, UNCOMPL 03/05/2017 BRIDGER JUSTICE MD Ot I10 ESSENTIAL (PRIMARY) HYPERTENSION 03/05/2017 BRIDGER JUSTICE MD Ot I25.10 ATHSCL HEART DISEASE OF [place] CORONARY 03/05/2017 BRIDGER JUSTICE MD Ot I25.2 OLD MYOCARDIAL INFARCTION 03/05/2017 BRIDGER JUSTICE MD Ot I69.320 APHASIA FOLLOWING CEREBRAL INFARCTION 03/05/2017 BRIDGER JUSTICE MD Ot I69.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 03/05/2017 BRIDGER JUSTICE MD Ot I70.201 UNSP ATHSCL [place] ARTERIES OF EXTREMITI 03/05/2017 RBIDGER JUSTICE MD Ot I70.245 ATHSCL [place] ARTERIES OF LEFT LEG W ULC 03/05/2017 BRIDGER JUSTICE MD Ot L97.529 NON-PRESSURE CHRONIC ULCER OTH PRT LEFT 03/05/2017 BRIDGER JUSTICE MD Ot Z79.02 SHELTER (CURRENT) USE OF ANTITHROMBOTI 03/05/2017 BRIDGER JUSTICE MD, Ot Z79.4 SHELTER (CURRENT) USE OF INSULIN 03/05/2017 BRIDGER JUSTICE MD, Ot Z79.899 OTHER CONTINUOUS IMPROVEMENT ENGINEER (CURRENT) DRUG THERAPY 03/05/2017 BRIDGER JUSTICE MD, Ot Z91.14 PATIENT'S OTHER NONCOMPLIANCE WITH MEDIC 03/19/2017 MARLENY PRIETO Ot I70.203 UNSP ATHSCL [place] ARTERIES OF [facility] 03/19/2017 MARLENY PRIETO Ot 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 04/09/2017 MARLENY PRIETO Ot I70.203 UNSP ATHSCL [place] ARTERIES OF [facility] 04/09/2017 MARLENY PRIETO Ot 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 04/10/2017 MARLENY PRIETO Ot I70.203 UNSP ATHSCL [place] ARTERIES OF [facility] 04/10/2017 MARLENY PRIETO Ot 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 04/22/2017 ZULLY DPM, [place] Q Ot L97.529 NON-PRESSURE CHRONIC ULCER OTH PRT LEFT 05/07/2017 Ot 433.10 CAROTID ARTERY OCCLUSION W O CEREBRAL IN 05/07/2017 Ot 433.30 MULT BILTRAL ARTERY OCCLUSION WO CEREBRA 05/07/2017 STEPHANIE CHRISTIANSENP Ot E05.90 THYROTOXICOSIS, UNSP WITHOUT THYROTOXIC 05/07/2017 ELAINA JAMES, JOLLY Alcantara Ot E11.9 TYPE 2 DIABETES MELLITUS WITHOUT COMPLIC 05/07/2017 STEPHANIE CHRISTIANSENP Ot I73.9 PERIPHERAL VASCULAR DISEASE, UNSPECIFIED 05/07/2017 ELAINA JAMES, JOLLY Alcantara Ot Z87.440 PERSONAL HISTORY OF URINARY (TRACT) INFE 05/07/2017 MARLENY PRIETO Ot I70.203 UNSP ATHSCL [place] ARTERIES OF [facility] 05/07/2017 MARLENY PRIETO Ot 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 05/07/2017 ZULLY DPM, [place] Q Ot L97.529 NON-PRESSURE CHRONIC ULCER OTH PRT LEFT 05/08/2017 ZULLY DPM, [place] Q Ot M86.9 OSTEOMYELITIS, UNSPECIFIED 05/08/2017 ZULLY DPM, [place] Q Ot Z01.818 ENCOUNTER FOR OTHER PREPROCEDURAL EXAMIN 05/08/2017 ZULLY DPM, [place] Q Ot Z11.2 ENCOUNTER FOR SCREENING FOR OTHER BACTER 05/12/2017 ZULLY DPM, KENTON Q Ot E03.9 HYPOTHYROIDISM, UNSPECIFIED 05/12/2017 ZULLY DPM, KENTON Q Ot E11.43 TYPE 2 DIABETES W DIABETIC AUTONOMIC (PO 05/12/2017 ZULLY DPM, [place] Q Ot E78.5 HYPERLIPIDEMIA, UNSPECIFIED 05/12/2017 ZULLY DPM, [place] Q Ot F03.90 UNSPECIFIED DEMENTIA WITHOUT BEHAVIORAL 05/12/2017 ZULLY DPM, KENTON Q Ot F17.210 NICOTINE DEPENDENCE, CIGARETTES, UNCOMPL 05/12/2017 ZULLY DPM, [place] Q Ot F32.9 MAJOR DEPRESSIVE DISORDER, SINGLE EPISOD 05/12/2017 ZULLY DPM, [place] Q Ot F41.9 ANXIETY DISORDER, UNSPECIFIED 05/12/2017 ZULLY DPM, [place] Q Ot I10 ESSENTIAL (PRIMARY) HYPERTENSION 05/12/2017 ZULLY DPM, K[place] Q Ot I25.10 ATHSCL HEART DISEASE OF [place] CORONARY 05/12/2017 ZULLY DPM, KENTON Q Ot I25.2 OLD MYOCARDIAL INFARCTION 05/12/2017 ZULLY DPM, [place] Q Ot I73.9 PERIPHERAL VASCULAR DISEASE, UNSPECIFIED 05/12/2017 ZULLY DPM, KENOTN Q Ot K21.9 GASTRO-ESOPHAGEAL REFLUX DISEASE WITHOUT 05/12/2017 ZULLY DPM, [place] Q Ot M86.672 OTHER CHRONIC OSTEOMYELITIS, LEFT ANKLE 05/12/2017 ZULLY DPM, KENTON Q Ot Z79.02 CONTINUOUS IMPROVEMENT ENGINEER (CURRENT) USE OF ANTITHROMBOTI 05/12/2017 ZULLY DPM, KENTON Q Ot Z79.4 SHELTER (CURRENT) USE OF INSULIN 05/12/2017 ZULLY DPM, KENTON Q Ot Z79.82 CONTINUOUS IMPROVEMENT ENGINEER (CURRENT) USE OF ASPIRIN 05/12/2017 ZULLY DPM, [place] Q Ot Z79.899 OTHER CONTINUOUS IMPROVEMENT ENGINEER (CURRENT) DRUG THERAPY 05/12/2017 ZULLY DPM, KENTON Q Ot Z86.73 PRSNL HX OF TIA (TIA), AND CEREB INFRC W 05/12/2017 ZULLY DPM, KENTON Q Ot Z95.5 PRESENCE OF CORONARY ANGIOPLASTY IMPLANT 05/12/2017 ZULLY DPM, KENTON Q Ot E03.9 HYPOTHYROIDISM, UNSPECIFIED 05/12/2017 ZULLY DPM, KENTON Q Ot E11.43 TYPE 2 DIABETES W DIABETIC AUTONOMIC (PO 05/12/2017 ZULLY DPM, KENTON Q Ot E78.5 HYPERLIPIDEMIA, UNSPECIFIED 05/12/2017 ZULLY DPM, [place] Q Ot F03.90 UNSPECIFIED DEMENTIA WITHOUT BEHAVIORAL 05/12/2017 ZULLY DPM, KENTON Q Ot F17.210 NICOTINE DEPENDENCE, CIGARETTES, UNCOMPL 05/12/2017 ZULLY DPM, KENTON Q Ot F32.9 MAJOR DEPRESSIVE DISORDER, SINGLE EPISOD 05/12/2017 ZULLY DPM, KENTON Q Ot F41.9 ANXIETY DISORDER, UNSPECIFIED 05/12/2017 ZULLY DPM, KENTON Q Ot I10 ESSENTIAL (PRIMARY) HYPERTENSION 05/12/2017 ZULLY DPM, K[place]ON Q Ot I25.10 ATHSCL HEART DISEASE OF [place] CORONARY 05/12/2017 ZULLY DPM, KENTON Q Ot I25.2 OLD MYOCARDIAL INFARCTION 05/12/2017 ZULLY DPM, K[place]ON Q Ot I73.9 PERIPHERAL VASCULAR DISEASE, UNSPECIFIED 05/12/2017 ZULLY DPM, KENTON Q Ot K21.9 GASTRO-ESOPHAGEAL REFLUX DISEASE WITHOUT 05/12/2017 ZULLY DPM, KENTON Q Ot M86.672 OTHER CHRONIC OSTEOMYELITIS, LEFT ANKLE 05/12/2017 ZULLY DPM, KENTON Q Ot Z79.02 SHELTER (CURRENT) USE OF ANTITHROMBOTI 05/12/2017 ZULLY DPM, KENTON Q Ot Z79.4 SHELTER (CURRENT) USE OF INSULIN 05/12/2017 ZULLY DPM, KENTON Q Ot Z79.82 CONTINUOUS IMPROVEMENT ENGINEER (CURRENT) USE OF ASPIRIN 05/12/2017 ZULLY DPM, [place] Q Ot Z79.899 OTHER CONTINUOUS IMPROVEMENT ENGINEER (CURRENT) DRUG THERAPY 05/12/2017 ZULLY DPM, KENTON Q Ot Z86.73 PRSNL HX OF TIA (TIA), AND CEREB INFRC W 05/12/2017 ZULLY DPM, [place] Q Ot Z95.5 PRESENCE OF CORONARY ANGIOPLASTY IMPLANT 05/13/2017 OSBALDO JAMES, MARITZA Ot Z01.810 ENCOUNTER FOR PREPROCEDURAL CARDIOVASCUL 05/13/2017 ZULLY DPM, K[place]ON Q Ot L97.529 NON-PRESSURE CHRONIC ULCER OTH PRT LEFT 05/16/2017 ZULLY DPM, KENTON Q Ot E03.9 HYPOTHYROIDISM, UNSPECIFIED 05/16/2017 ZULLY DPM, KENTON Q Ot E11.43 TYPE 2 DIABETES W DIABETIC AUTONOMIC (PO 05/16/2017 ZULLY DPM, KENTON Q Ot E78.5 HYPERLIPIDEMIA, UNSPECIFIED 05/16/2017 ZULLY DPM, KENTON Q Ot F03.90 UNSPECIFIED DEMENTIA WITHOUT BEHAVIORAL 05/16/2017 ZULLY DPM, KENTON Q Ot F17.210 NICOTINE DEPENDENCE, CIGARETTES, UNCOMPL 05/16/2017 ZULLY DPM, KENTON Q Ot F32.9 MAJOR DEPRESSIVE DISORDER, SINGLE EPISOD 05/16/2017 ZULLY DPM, KENTON Q Ot F41.9 ANXIETY DISORDER, UNSPECIFIED 05/16/2017 ZULLY DPM, KENTON Q Ot I10 ESSENTIAL (PRIMARY) HYPERTENSION 05/16/2017 ZULLY DPM, KENTON Q Ot I25.10 ATHSCL HEART DISEASE OF [place] CORONARY 05/16/2017 ZULLY DPM, KENTON Q Ot I25.2 OLD MYOCARDIAL INFARCTION 05/16/2017 ZULLY DPM, KENTON Q Ot I73.9 PERIPHERAL VASCULAR DISEASE, UNSPECIFIED 05/16/2017 ZULLY DPM, KENTON Q Ot K21.9 GASTRO-ESOPHAGEAL REFLUX DISEASE WITHOUT 05/16/2017 ZULLY DPM, K[place] Q Ot M86.672 OTHER CHRONIC OSTEOMYELITIS, LEFT ANKLE 05/16/2017 ZULLY DPM, KENTON Q Ot Z79.02 SHELTER (CURRENT) USE OF ANTITHROMBOTI 05/16/2017 ZULLY DPM, KENTON Q Ot Z79.4 CONTINUOUS IMPROVEMENT ENGINEER (CURRENT) USE OF INSULIN 05/16/2017 ZULLY DPM, KENTON Q Ot Z79.82 SHELTER (CURRENT) USE OF ASPIRIN 05/16/2017 ZULLY DPM, [place] Q Ot Z79.899 OTHER SHELTER (CURRENT) DRUG THERAPY 05/16/2017 ZULLY DPM, KENTON Q Ot Z86.73 PRSNL HX OF TIA (TIA), AND CEREB INFRC W 05/16/2017 ZULLY DPM, [place]ON Q Ot Z95.5 PRESENCE OF CORONARY ANGIOPLASTY IMPLANT 05/20/2017 ZULLY DPM, [place] Q Ot L97.529 NON-PRESSURE CHRONIC ULCER OTH PRT LEFT 05/30/2017 ZULLY DPM, [place] Q Ot E03.9 HYPOTHYROIDISM, UNSPECIFIED 05/30/2017 ZULLY DPM, [place] Q Ot E11.43 TYPE 2 DIABETES W DIABETIC AUTONOMIC (PO 05/30/2017 ZULLY DPM, KENTON Q Ot E78.5 HYPERLIPIDEMIA, UNSPECIFIED 05/30/2017 ZULLY DPM, [place] Q Ot F03.90 UNSPECIFIED DEMENTIA WITHOUT BEHAVIORAL 05/30/2017 ZULLY DPM, [place] Q Ot F17.210 NICOTINE DEPENDENCE, CIGARETTES, UNCOMPL 05/30/2017 ZULLY DPM, [place] Q Ot F32.9 MAJOR DEPRESSIVE DISORDER, SINGLE EPISOD 05/30/2017 ZULLY DPM, [place] Q Ot F41.9 ANXIETY DISORDER, UNSPECIFIED 05/30/2017 ZULLY DPM, [place] Q Ot I10 ESSENTIAL (PRIMARY) HYPERTENSION 05/30/2017 ZULLY DPM, [place] Q Ot I25.10 ATHSCL HEART DISEASE OF [place] CORONARY 05/30/2017 ZULLY DPM, KENTON Q Ot I25.2 OLD MYOCARDIAL INFARCTION 05/30/2017 ZULLY DPM, [place] Q Ot I73.9 PERIPHERAL VASCULAR DISEASE, UNSPECIFIED 05/30/2017 ZULLY DPM, [place] Q Ot K21.9 GASTRO-ESOPHAGEAL REFLUX DISEASE WITHOUT 05/30/2017 ZULLY DPM, [place] Q Ot M86.672 OTHER CHRONIC OSTEOMYELITIS, LEFT ANKLE 05/30/2017 ZULLY DPM, [place] Q Ot Z79.02 CONTINUOUS IMPROVEMENT ENGINEER (CURRENT) USE OF ANTITHROMBOTI 05/30/2017 ZULLY DPM, [place] Q Ot Z79.4 CONTINUOUS IMPROVEMENT ENGINEER (CURRENT) USE OF INSULIN 05/30/2017 ZULLY DPM, [place] Q Ot Z79.82 CONTINUOUS IMPROVEMENT ENGINEER (CURRENT) USE OF ASPIRIN 05/30/2017 ZULLY DPM, [place] Q Ot Z79.899 OTHER CONTINUOUS IMPROVEMENT ENGINEER (CURRENT) DRUG THERAPY 05/30/2017 ZULLY DPM, [place] Q Ot Z86.73 PRSNL HX OF TIA (TIA), AND CEREB INFRC W 05/30/2017 ZULLY DPM, [place] Q Ot Z95.5 PRESENCE OF CORONARY ANGIOPLASTY IMPLANT 06/05/2017 OSBALDO JAMES, MARITZA Ot Z01.810 ENCOUNTER FOR PREPROCEDURAL CARDIOVASCUL 06/16/2017 ZULLY DPM, [place] Q Ot E03.9 HYPOTHYROIDISM, UNSPECIFIED 06/16/2017 ZULLY DPM, [place] Q Ot E11.43 TYPE 2 DIABETES W DIABETIC AUTONOMIC (PO 06/16/2017 ZULLY DPM, [place] Q Ot E78.5 HYPERLIPIDEMIA, UNSPECIFIED 06/16/2017 ZULLY DPM, [place] Q Ot F03.90 UNSPECIFIED DEMENTIA WITHOUT BEHAVIORAL 06/16/2017 ZULLY DPM, [place] Q Ot F17.210 NICOTINE DEPENDENCE, CIGARETTES, UNCOMPL 06/16/2017 ZULLY DPM, [place] Q Ot F32.9 MAJOR DEPRESSIVE DISORDER, SINGLE EPISOD 06/16/2017 ZULLY DPM, [place] Q Ot F41.9 ANXIETY DISORDER, UNSPECIFIED 06/16/2017 ZULLY DPM, [place] Q Ot I10 ESSENTIAL (PRIMARY) HYPERTENSION 06/16/2017 ZULLY DPM, [place] Q Ot I25.10 ATHSCL HEART DISEASE OF [place] CORONARY 06/16/2017 ZULLY DPM, [place] Q Ot I25.2 OLD MYOCARDIAL INFARCTION 06/16/2017 ZULLY DPM, [place] Q Ot I73.9 PERIPHERAL VASCULAR DISEASE, UNSPECIFIED 06/16/2017 ZULLY DPM, [place] Q Ot K21.9 GASTRO-ESOPHAGEAL REFLUX DISEASE WITHOUT 06/16/2017 ZULLY DPM, [place] Q Ot M86.672 OTHER CHRONIC OSTEOMYELITIS, LEFT ANKLE 06/16/2017 ZULLY DPM, [place] Q Ot Z79.02 SHELTER (CURRENT) USE OF ANTITHROMBOTI 06/16/2017 ZULLY DPM, [place] Q Ot Z79.4 SHELTER (CURRENT) USE OF INSULIN 06/16/2017 ZULLY DPM, [place] Q Ot Z79.82 CONTINUOUS IMPROVEMENT ENGINEER (CURRENT) USE OF ASPIRIN 06/16/2017 ZULLY DPM, [place] Q Ot Z79.899 OTHER SHELTER (CURRENT) DRUG THERAPY 06/16/2017 ZULLY DPM, [place] Q Ot Z86.73 PRSNL HX OF TIA (TIA), AND CEREB INFRC W 06/16/2017 ZULLY DPM, [place] Q Ot Z95.5 PRESENCE OF CORONARY ANGIOPLASTY IMPLANT 06/16/2017 OSBALDO JAMES, MARITZA Ot Z01.810 ENCOUNTER FOR PREPROCEDURAL CARDIOVASCUL Procedures Code Description Performed By Performed On 38.93 VENOUS CATHETERIZATION NEC 01/07/2011 40699 A1C (IN-HOUSE) 02/17/2012 94135 XRAY LUMBAR SPINE 2 OR 3 VIEWS 03/18/2012 72064 OXIMETRY 03/25/2012 78324 OXIMETRY 03/26/2012 57931 SLEEP STUDY 03/26/2012 23327 GLUCOSE FINGER STICK 03/26/2012 33695 SLEEP STUDY 03/27/2012 J1815 Novolin r 100 units/ml vial 100 unit/mL Solution 04/13/2012 65357 MONO TEST (IN-HOUSE) 09/09/2012 67672 MICRO ALBUMIN-IN HOUSE 09/11/2012 58495 ROUTINE VENIPUNCTURE 01/19/[address] SPINE, LUMBAR W/ AND W/O CONTRAST 01/19/2013 08350 TSH 01/19/[address] SPINE, LUMBAR W/O CONTRAST 01/21/[address] ABDOMEN AND PELVIS W/ CONTRAST 01/21/2013 18234 ROUTINE VENIPUNCTURE 06/03/2013 98894 CMP 06/03/2013 21338 TSH 06/03/2013 63929 CBC 06/03/2013 J1815 Novolin r 100 units/ml vial 100 unit/mL solution 06/03/2013 51496 A1C (IN-HOUSE) 06/03/2013 98187 ROUTINE VENIPUNCTURE 07/19/2013 27004 CMP 07/19/2013 ADDICTION MAGDALENA, CLYDE-LAC 07/19/2013 20014 ROUTINE VENIPUNCTURE 10/08/2013 03201 A1C (IN-HOUSE) 10/08/2013 59647 CBC 10/08/2013 2515738 GFR CALC (RESULT ONLY) 10/08/2013 87729 CMP 10/08/2013 77619 IRON SERUM 10/08/2013 16031 IRON BNDNG CAP 10/08/2013 27062 MAGNESIUM 10/08/2013 17329 VIT B 12 10/08/2013 09790 TSH 10/08/2013 61652 FOLATE 10/08/2013 51448 FERRITIN 10/08/2013 IRGROUP IRON GROUP (Iron,TIBC, Ferritin) 10/12/2013 54981 MRI EXTREMITY JOINT, UPPER LEFT, W/O CONTRAST 10/19/2013 75690 PSYCH DIAGNOSTIC EVALUATION 11/02/2013 58125 PSYTX PT&/FAMILY 30 MINUTES 11/11/2013 PHYSICAL WOUND CARE, [facility] 11/12/2013 37.22 LEFT HEART CARDIAC CATH [...] urinalysis with reflex to culture NO NRG VIT B-12 - 07/06/16 19:29 Vitamin B12 320.00 pg/mL 213.00-816.00 Vitamin D, 25 OH - 07/06/16 19:29 Vitamin D, 25 OH 25.70 ng/mL 25.00-100.00 Valproic Acid - 07/06/16 21:35 Valproic Acid 13.6 ug/mL 55.0-105.0 MRSA Screen - 07/07/16 01:03 FINAL CULTURE RESULTS MRSA Negative Nasal Culture MEDIA PLATED Setup at 01:45 on 07/07/2016 Thyroid Stimulating Hormone - 07/07/16 05:00 TSH 8.70 mIU/mL 0.32-5.00 Hemoglobin A1C - 07/07/16 05:00 % A1C 6.40 % 5.40-6.60 AvGlu 149 mg/dL 70-110 Valproic Acid - 07/08/16 05:10 Valproic Acid 35.1 ug/mL 55.0-105.0 Valproic Acid - 07/15/16 05:40 Valproic Acid 36.8 ug/mL 55.0-105.0 Capillary blood glucose measurement by glucometer (mass/volume) [...] measurement by glucometer (mass/volume) 96 mg/dL 70-110 Bacteria identification in isolate by anaerobe culture - 05/09/17 14:40 QUANTITY OF GROWTH Scant Growth NRG Bacteria identification in isolate by anaerobe culture [id number] NRG Bacteria identification in isolate by anaerobe culture - 05/09/17 14:40 QUANTITY OF GROWTH Scant Growth NRG Bacteria identification in isolate by anaerobe culture [id number] NRG Gram stain microscopy - 05/09/17 14:40 GRAM STAIN RESULT NO BACTERIA OBSERVED NRG Gram stain microscopy - 05/09/17 14:40 GRAM STAIN RESULT FEW GRAM NEGATIVE RODS NRG Bacteria identification in wound by culture - 05/09/17 14:40 Bacteria identification in wound by culture [id number] NRG FREE TEXT EXTERNAL SEE COMMENT NRG QUANTITY OF GROWTH Moderate Growth NRG FREE TEXT ENTRY 2 TO FOLLOW NRG Bacteria identification in wound by culture - 05/09/17 14:40 Bacteria identification in wound by culture NG NRG Bacterial susceptibility panel - 05/09/17 14:40 Gentamicin susceptibility test by minimum inhibitory concentration S NRG Erythromycin susceptibility test by minimum inhibitory concentration >= NRG Vancomycin susceptibility test by minimum inhibitory concentration 1 NRG Ampicillin susceptibility test by minimum inhibitory concentration < = NRG Linezolid susceptibility test by minimum inhibitory concentration 2 NR Bacterial susceptibility panel - 05/09/17 14:40 Oxacillin susceptibility test by minimum inhibitory concentration < = NRG Gentamicin susceptibility test by minimum inhibitory concentration < = NRG Clindamycin susceptibility test by minimum inhibitory concentration <= NRG Erythromycin susceptibility test by minimum inhibitory concentration <= NRG Trimethoprim/sulfamethoxazole susceptibility test by minimum inhibitoryconcentration S NRG Vancomycin susceptibility test by minimum inhibitory concentration < = NRG Levofloxacin susceptibility test by minimum inhibitory concentration 0.25 NRG Rifampin susceptibility test by minimum inhibitory concentration <= NRG Tetracycline susceptibility test by minimum inhibitory concentration <= NRG Complete blood count (CBC) with automated white blood cell (WBC) differential - 10/26/17 10:44 Blood leukocytes automated count (number/volume) 9.5 10*3/uL 4.3-11.0 Blood erythrocytes automated count (number/volume) 3.93 10*6/uL 4.35-5.85 Venous blood hemoglobin measurement (mass/volume) 12.6 g/dL 13.3-17.7 Blood hematocrit (volume fraction) 36 % 40-54 Automated erythrocyte mean corpuscular volume 91 [foz_us] 80-99 Automated erythrocyte mean corpuscular hemoglobin (mass per erythrocyte) 32 pg 25-34 Automated erythrocyte mean corpuscular hemoglobin concentration measurement ( mass/volume) 35 g/dL 32-36 Automated erythrocyte distribution width ratio 12.9 % 10.0-14.5 Automated blood platelet count (count/volume) 125 10*3/uL 130-400 Automated blood platelet mean volume measurement 11.3 [foz_us] 7.4-10.4 Automated blood neutrophils/100 leukocytes 82 % 42-75 Automated blood lymphocytes/100 leukocytes 6 % 12-44 Blood monocytes/100 leukocytes 10 % 0-12 Automated blood eosinophils/100 leukocytes 2 % 0-10 Automated blood basophils/100 leukocytes 0 % 0-10 Blood neutrophils automated count (number/volume) 7.8 10*3 1.8-7.8 Blood lymphocytes automated count (number/volume) 0.6 10*3 1.0-4.0 Blood monocytes automated count (number/volume) 1.0 10*3 0.0-1.0 Automated eosinophil count 0.2 10*3/uL 0.0-0.3 Automated blood basophil count (count/volume) 0.0 10*3/uL 0.0-0.1 PT panel in platelet poor plasma by coagulation assay - 10/26/17 10:44 Prothrombin time (PT) in platelet poor plasma by coagulation assay 14.7 s 12.2-14.7 INR in platelet poor plasma or blood by coagulation assay 1.1 0.8-1.4 Activated partial thromboplastin time (aPTT) in platelet poor plasma bycoagulation assay - 10/26/17 10:44 Activated partial thromboplastin time (aPTT) in platelet poor plasma bycoagulation assay 24 s 24-35 Blood lactic acid measurement (moles/volume) - 10/26/17 10:44 Blood lactic acid measurement (moles/volume) 3.24 mmol/L 0.50-2.00 Blood manual differential performed detection - 10/26/17 10:44 Blood monocytes/100 leukocytes 8 % NR Manual blood segmented neutrophils/100 leukocytes 83 % NRG Blood band neutrophils/100 leukocytes 3 % NRG Manual blood lymphocytes/100 leukocytes 3 % NRG Manual eosinophils/100 leukocytes in nose 3 % NR Blood erythrocyte morphology finding identification [facility] Comprehensive metabolic panel - 10/26/17 10:44 Serum or plasma sodium measurement (moles/volume) 131 mmol/L 135-145 Serum or plasma potassium measurement (moles/volume) 5.2 mmol/L 3.6-5.0 Serum or plasma chloride measurement (moles/volume) 97 mmol/L 98-107 Carbon dioxide 22 mmol/L 21-32 Serum or plasma anion gap determination (moles/volume) 12 mmol/L 5-14 Serum or plasma urea nitrogen measurement (mass/volume) 11 mg/dL 7-18 Serum or plasma creatinine measurement (mass/volume) 1.08 mg/dL 0.60-1.30 Serum or plasma urea nitrogen/creatinine mass ratio 10 NRG Serum or plasma creatinine measurement with calculation of estimated glomerular filtration rate > NRG Serum or plasma glucose measurement (mass/volume) 377 mg/dL 70-105 Serum or plasma calcium measurement (mass/volume) 9.3 mg/dL 8.5-10.1 Serum or plasma total bilirubin measurement (mass/volume) 0.4 mg/dL 0.1-1.0 Serum or plasma alkaline phosphatase measurement (enzymatic activity/volume) 109 U/L 40-136 Serum or plasma aspartate aminotransferase measurement (enzymatic activity/ volume) 23 U/L 5-34 Serum or plasma alanine aminotransferase measurement (enzymatic activity/volume ) 19 U/L 0-55 Serum or plasma protein measurement (mass/volume) 6.5 g/dL 6.4-8.2 Serum or plasma albumin measurement (mass/volume) 3.7 g/dL 3.2-4.5 Capillary blood glucose measurement by glucometer (mass/volume) - 10/26/17 11: 14 Capillary blood glucose measurement by glucometer (mass/volume) 365 mg/dL 70-110 Capillary blood glucose measurement by glucometer (mass/volume) - 10/26/17 12: 08 Capillary blood glucose measurement by glucometer (mass/volume) 252 mg/dL 70-110 Serum or plasma lactate measurement (moles/volume) - 10/26/17 13:12 Serum or plasma lactate measurement (moles/volume) 2.65 mmol/L 0.50-2.00 Capillary blood glucose measurement by glucometer (mass/volume) - 10/26/17 15: 00 Capillary blood glucose measurement by glucometer (mass/volume) 175 mg/dL 70-110 Capillary blood glucose measurement by glucometer (mass/volume) - 10/26/17 17: 08 Capillary blood glucose measurement by glucometer (mass/volume) 123 mg/dL 70-110 Capillary blood glucose measurement by glucometer (mass/volume) - 10/26/17 20: 56 Capillary blood glucose measurement by glucometer (mass/volume) 172 mg/dL 70-110 Capillary blood glucose measurement by glucometer (mass/volume) - 10/27/17 05: 58 Capillary blood glucose measurement by glucometer (mass/volume) 104 mg/dL 70-110 Encounters ACCT No. Visit Date/Time Discharge Status Pt. Type Provider Facility Loc./Unit Complaint [id number] 06/29/2014 07:50:00 06/29/2014 23:59:59 CLS Outpatient STEPHANEI CHRISTIANSEN APRN [id number] 04/21/2014 09:44:00 04/21/2014 23:59:59 CLS Outpatient JOLLY DELANEY MD [id number] 02/16/2014 08:48:00 02/16/2014 23:59:59 CLS Outpatient STEPHANIE CHRISTIANSEN APRN [id number] 02/05/2014 06:56:00 02/05/2014 23:59:59 CLS Outpatient CLARIBEL RAMEY MD [id number] 01/21/2014 10:00:00 01/21/2014 23:59:59 CLS Outpatient CACHORRO SHAW DO [id number] 12/17/2013 09:57:00 12/17/2013 23:59:59 CLS Outpatient SIMRAN LEGER APRN [id number] 12/17/2013 09:57:00 12/17/2013 23:59:59 CLS Outpatient SIMRAN LEGER APRN [id number] 11/12/2013 09:52:00 11/12/2013 23:59:59 CLS Outpatient CACHORRO SHAW DO [id number] 11/11/2013 15:58:00 11/11/2013 23:59:59 CLS Outpatient JE DONOVAN PHD [id number] 11/02/2013 13:59:00 11/02/2013 23:59:59 CLS Outpatient JE DONOVAN PHD [id number] 10/19/2013 16:42:00 10/19/2013 23:59:59 CLS Outpatient CACHRORO SHAW DO [id number] 10/08/2013 12:05:00 10/08/2013 23:59:59 CLS Outpatient CACHORRO SHAW DO [id number] 10/08/2013 12:05:00 10/08/2013 23:59:59 CLS Outpatient CACHORRO SHAW DO [id number] 07/21/2013 17:05:00 07/21/2013 23:59:59 CLS Outpatient JOLLY DELANEY MD [id number] 07/19/2013 11:17:00 07/19/2013 23:59:59 CLS Outpatient SHAW DOCACHORRO [id number] 06/03/2013 11:22:00 06/03/2013 23:59:59 CLS Outpatient SHAW DOCACHORRO [id number] 06/03/2013 11:22:00 06/03/2013 23:59:59 CLS Outpatient SHAW DOCACHORRO [id number] 01/19/2013 11:42:00 01/19/2013 23:59:59 CLS Outpatient SHAW DOCACHORRO [id number] 01/19/2013 11:42:00 01/19/2013 23:59:59 CLS Outpatient SHAW DOCACHORRO [id number] 11/02/2012 10:38:00 11/02/2012 23:59:59 CLS Outpatient SHAW DOCACHORRO [id number] 04/22/2012 11:01:00 04/22/2012 23:59:59 CLS Outpatient [id number] 04/13/2012 09:16:00 04/13/2012 23:59:59 CLS Outpatient SHAW DOCACHORRO [id number] 03/26/2012 08:41:00 03/26/2012 23:59:59 CLS Outpatient SHAW DOCACHORRO [id number] 03/26/2012 08:41:00 03/26/2012 23:59:59 CLS Outpatient SHAW DOCACHORRO [id number] 03/18/2012 15:47:00 03/18/2012 23:59:59 CLS Outpatient [id number] 02/17/2012 16:33:00 02/17/2012 23:59:59 CLS Outpatient SHAW DOCACHORRO [id number] 09/11/2012 09:20:00 Document Registration [id number] 09/09/2012 14:05:00 Document Registration [id number] 09/09/2012 14:05:00 Document Registration [id number] 09/23/2014 02:42:46 ACT Document Registration [id number] 05/12/2017 17:29:00 05/12/2017 23:59:59 CLS Outpatient MARITZA ROBLERO MD [facility] CARD PREOPERATIVE CARDIOVASCULAR EXAM [id number] 05/09/2017 11:20:00 05/09/2017 23:59:59 CLS Outpatient ZULLY DPM KENTON Q [facility] SDC OSTEOMYELITIS LEFT GREAT TOE [id number] 05/07/2017 10:23:00 05/07/2017 10:50:00 DIS Outpatient ZULLY DPM KENTON Q [facility] PREOP OSTEOMYELITIS LEFT GREAT TOE [id number] 04/21/2017 10:52:00 04/21/2017 23:59:59 CLS Outpatient ZULLY DPM K[place] Q [facility] RAD CHONIC ULCERATION LEFT HALLUX [id number] 03/17/2017 12:19:00 03/17/2017 23:59:59 CLS Outpatient MARLENY PRIETO [facility] RAD I70.213 PAD [id number] 03/05/2017 07:35:00 03/05/2017 17:15:00 DIS Outpatient BRIDGER JUSTICE MD [facility] CATH NONHEALING WOUND, ABN CASI [id number] 07/19/2016 19:23:00 07/19/2016 23:10:00 DIS Emergency CUCO UMANA DO [facility] ER DIARRHEA [id number] 06/04/2016 19:10:00 06/04/2016 23:59:59 CLS Outpatient JOLLY DELANEY MD [facility] GLC [id number] 05/22/2016 12:10:00 05/22/2016 23:59:59 CLS Outpatient STEPHANIE CHRISTIANSEN [facility] RAD PVD [id number] 02/09/2016 14:51:00 02/09/2016 23:59:59 CLS Outpatient JOLLY DELANEY MD [facility] LAB DIABETES [id number] 02/24/2015 13:06:00 02/24/2015 23:59:59 CLS Outpatient STEPHANIE CHRISTIANSEN [facility] RAD HYPERTHYROIDISM [id number] 09/22/2014 16:16:00 09/22/2014 18:57:00 DIS Emergency BRIAN HUGO APRN [facility] ER AMS [id number] 09/09/2014 16:15:00 09/09/2014 18:33:00 DIS Emergency MAN JAMES, TASIA Cabrera [facility] ER CONFUSION,NOT FEELING WELL [id number] 04/23/2014 09:25:00 04/23/2014 09:25:00 CAN Emergency KENTRELL BRADLEY MD [facility] ER [id number] 01/03/2014 14:15:00 02/03/2014 11:01:00 DIS Outpatient CAROL STRICKLAND [facility] WOUNDCARE RIGHT TOE AMPUTATION [id number] 01/19/2014 14:25:00 01/20/2014 15:25:00 DIS Inpatient TANVIR JAMES, CLARIBEL Braun [facility] 4TH DIABETES OUT OF CONTROL [id number] 01/05/2014 04:58:00 01/06/2014 11:30:00 DIS Inpatient CACHORRO SHAW DO [facility] CSD EXACERBATION OF LATE CVA EFFECTS,AMS,HYPONATREMIA, [id number] 09/10/2013 16:15:00 09/10/2013 21:10:00 DIS Emergency EMELIA BORJAS [facility] ER BLACK TOE ON R FOOT [id number] 09/04/2013 13:50:00 09/04/2013 16:09:00 DIS Emergency CAROL CARRILLO MD [facility] ER LOW BLOOD SUGAR [id number] 08/27/2013 07:59:00 08/27/2013 12:10:00 DIS Emergency YOLY DURBIN MD [facility] ER HYPOGLYCEMIA [id number] 06/24/2013 10:51:00 06/28/2013 14:59:00 DIS Inpatient SHAW DOSUMITA K [facility] 4TH DEC LOC [id number] 06/23/2013 20:04:00 06/23/2013 23:00:00 DIS Emergency BRIAN HUGO APRN [facility] ER AMS [id number] 02/16/2013 10:26:00 02/16/2013 12:57:00 DIS Emergency BRIAN HUGO APRN [facility] ER LEFT SHOULDER/BACK PAIN [id number] 11/06/2012 14:14:00 11/06/2012 16:34:00 DIS Emergency RAMAKRISHNA JAMES, YLOY Larios [facility] ER CHEST PAIN [id number] 10/26/2017 10:58:00 Document Registration [id number] 02/10/2015 09:33:00 Document Registration [id number] 02/10/2015 09:33:00 Document Registration [id number] 02/10/2015 09:33:00 Document Registration [id number] 02/10/2015 09:33:00 Document Registration [id number] 02/10/2015 09:33:00 Document Registration [id number] 02/10/2015 09:33:00 Document Registration [id number] 09/22/2014 19:02:00 Document Registration [id number] 09/22/2014 19:02:00 Document Registration [id number] 09/22/2014 19:02:00 Document Registration [id number] 09/22/2014 19:01:00 Document Registration [id number] 03/20/2012 17:45:00 Document Registration [id number] 12/13/2011 12:01:00 Document Registration [id number] 12/09/2011 07:30:00 Document Registration [id number] 11/21/2011 08:13:00 Document Registration [id number] 10/08/2011 12:35:00 Document Registration [id number] 01/07/2011 23:01:00 Document Registration [id number] 10/16/2010 02:17:00 Document Registration [id number] 06/17/2010 04:07:00 Document Registration [id number] 02/16/2010 09:47:00 Document Registration [id number] 09/13/2009 10:01:00 Document Registration [id number] 07/06/2016 19:30:00 07/16/2016 12:30:00 [id number] 07/[facility]/2016 20:23:17 Document Registration
[2017-10-27 11:58] LABS: BILIRUBIN,URINE NEGATIVE (NEGATIVE); CLARITY,URINE CLEAR; COLOR,URINE YELLOW; GLUCOSE, URINE (UA) 2+ (NEGATIVE); KETONES,URINE NEGATIVE (NEGATIVE); LEUKOCYTE ESTERASE ,URINE NEGATIVE (NEGATIVE); NITRITE,URINE NEGATIVE (NEGATIVE); PH,URINE 6 (5-9); PROTEIN,URINE 3+ (NEGATIVE); UROBILINOGEN,URINE NORMAL (NORMAL)
[2017-10-27 12:00] VITALS: BP 165/89
[2017-10-27 12:03] LABS: BACTERIA,URINE NEGATIVE /HPF; RBC,URINE 0-2 /HPF
--- OUTSIDE RECORDS SUMMARY | 2017-10-27 12:21 | XMS REPORT | Continuity of Care Document ---
Author Author [facility] Address Unknown Phone Unavailable Allergies Active Description Code Type Severity Reaction Onset Reported/Identified Relationship to Patient Clinical Status Yes ACETAMINOPHEN ACETAMINOPHEN MODERATE Yes NO KNOWN DRUG ALLERGIES NO KNOWN DRUG ALLERG UNKNOWN Yes ACETAMINOPHEN MODERATE UNKNOWN Yes acetaminophen [id number] Drug Allergy Moderate N/A 12/09/2011 Yes Benzodiazepines [...] (LOPRESSOR) MG 07/07/2016 08/05/2016 BID&0800,1999 MILK OF EUSEIBA KEANEQ 0 ml 201607/14/2016 PRN BID CLOPIDOGREL [...] K 338.4 CHRONIC PAIN SYNDROME 10/10/2008 ARSEN [place] COUNSEL, SIMRAN 338.4 CHRONIC PAIN SYNDROME 10/10/2008 ARSEN [place], SIMRAN 338.4 CHRONIC PAIN SYNDROME 10/10/2008 SHAW [...] DO, CACHORRO K 787.91 Diarrhea 12/13/2008 ARSEN [place], SIMRAN 465.9 Upper Respiratory Infection 12/13/2008 ARSEN [place] COUN[place], SIMRAN 787.03 Vomiting 12/13/2008 ARSEN [place] COUNSEL, SIMRAN 787.91 Diarrhea 12/13/2008 ARSEN [place] COUNSEL, SIMRAN 465.9 Upper Respiratory Infection 12/13/2008 ARSEN [place] COUNSEL, SIMRAN 787.03 Vomiting 12/13/2008 ARSEN [place] COUNSEL, SIMRAN 787.91 Diarrhea 12/13/2008 SHAW DO, CACHORRO K 465.9 Upper Respiratory Infection 12/13/2008 SHAW DO, CACHORRO K 787.03 Vomiting 12/13/2008 SHAW DO, CACHORRO K 787.91 Diarrhea 12/13/2008 CLARIBEL RAMEY MD 465.9 Upper Respiratory Infection 12/13/2008 CLARIBEL RAMEY MD 787.03 Vomiting 12/13/2008 CLARIBEL RAMEY MD 787.91 Diarrhea 12/13/2008 STEPHANIE CHRISTIANSEN APRN 465.9 Upper Respiratory Infection 12/13/2008 ЕЛЕНА [place] COUNSEL, STEPHANIE S 787.03 Vomiting 12/13/2008 ЕЛЕНА MUÑOZ, STEPHANIE S 787.91 Diarrhea 12/13/2008 JOLLY DELANEY MD 465.9 Upper Respiratory Infection 12/13/2008 JOLLY DELANEY MD 787.03 Vomiting 12/13/2008 JOLLY DELANEY MD 787.91 Diarrhea 12/13/2008 ЕЛЕНА MUÑOZ, STEPHANIE S 465.9 Upper Respiratory Infection 12/13/2008 ЕЛЕНА MUÑOZ, STEPHANIE S 787.03 Vomiting 12/13/2008 [place] COUNSEL, STEPHANIE S 787.91 Diarrhea 12/15/2008 SHAW DO, [...] K 311 MO DEPRESS NOS 12/15/2008 ARSEN [place], SIMRAN 307.47 SI DYSSOMNIA NOS 12/15/2008 ARSEN [place] COUNSEL, SIMRAN 311 MO DEPRESS NOS 12/15/2008 ARSEN [place] COUNSEL, SIMRAN 307.47 SI DYSSOMNIA NOS 12/15/2008 ARSEN [place] COUNSEL, SIMRAN 311 MO DEPRESS NOS 12/15/2008 SHAW [...] CACHORRO K 788.7 Penile Discharge 01/04/2009 ARSEN [place] COUNSEL, SIMRAN 788.7 Penile Discharge 01/04/2009 ARSEN [place] COUNSEL, SIMRAN 788.7 Penile Discharge 01/04/2009 SHAW DO, [...] DO, CACHORRO K 302.72 IMPOTENCE 02/15/2009 ARSEN [place] COUNSEL, SIMRAN 302.72 IMPOTENCE 02/15/2009 ARSEN [place] COUNSEL, SIMRAN 302.72 IMPOTENCE 02/15/2009 SHAW DO, CACHORRO [...] 724.5 Backache Unspecified 03/20/2009 VENUS SUN, JE Cbarera 724.5 Backache Unspecified 03/20/2009 SHAW DO, CACHORRO K 724.5 Backache Unspecified 03/20/2009 ARSEN [place] COUNSEL, SIMRAN 724.5 Backache Unspecified 03/20/2009 ARSEN [place] COUNSEL, SIMRAN 724.5 Backache Unspecified 03/20/2009 SHAW DO, [...] PF PSYCHIC FACTORS MED COND 06/09/2009 ARSEN [place] COUNSEL, SIMRAN 304.10 SA SEDATIVE DEP 06/09/2009 ARSEN [place] COUNSEL, SIMRAN 316 PF PSYCHIC FACTORS MED COND 06/09/2009 ARSEN [place] COUNSEL, SIMRAN 304.10 SA SEDATIVE DEP 06/09/2009 ARSEN [place] COUNSEL, SIMRAN 316 PF PSYCHIC FACTORS MED COND 06/09/2009 SHAW DO, CACHORRO K 304.10 SA SEDATIVE DEP 06/09/2009 SHAW DO, CACHORRO K 316 PF PSYCHIC FACTORS MED COND 06/09/2009 TANVIR JAMES, CLARIBEL Braun 304.10 SA SEDATIVE DEP 06/09/2009 CLARIBEL RAMEY MD 316 PF PSYCHIC FACTORS MED COND 06/09/2009 STEPHANIE CHRISTIANSEN APRN 304.10 SA SEDATIVE DEP 06/09/2009 ЕЛЕНА [place] COUNSEL, STEPHANIE S 316 PF PSYCHIC FACTORS MED COND 06/09/2009 JOLLY DEALNEY MD 304.10 SA SEDATIVE DEP 06/09/2009 JOLLY DELANEY MD 316 PF PSYCHIC FACTORS MED COND 06/09/2009 ЕЛЕНА [place] COUNSEL, STEPHANIE S 304.10 SA SEDATIVE DEP 06/09/2009 ЕЛЕНА [place] COUNSEL, STEPHANIE S 316 PF PSYCHIC FACTORS MED COND 08/07/2009 SHAW DO, CACHORRO K 244.9 HYPOTHYROIDISM [...] K 304.00 SA OPIOID DEPENDENCE 08/07/2009 ARSEN [place] COUNSEL, SIMRAN 244.9 HYPOTHYROIDISM 08/07/2009 ARSEN [place] COUNSEL, SIMRAN 304.00 SA OPIOID DEPENDENCE 08/07/2009 ARSEN [place] COUNSEL, SIMRAN 244.9 HYPOTHYROIDISM 08/07/2009 ARSEN [place] COUNSEL, SIMRAN 304.00 SA OPIOID DEPENDENCE 08/07/2009 SHAW DO, CACHORRO K 244.9 HYPOTHYROIDISM 08/07/2009 SHAW DO, CACHORRO K 304.00 SA OPIOID DEPENDENCE 08/07/2009 TANVIR JAMES, CLARIBEL N 244.9 HYPOTHYROIDISM 08/07/2009 CLARIBEL RAMEY MD N 304.00 SA OPIOID DEPENDENCE 08/07/2009 ЕЛЕНА [place] COUNSEL, STEPHANIE S 244.9 HYPOTHYROIDISM 08/07/2009 ЕЛЕНА [place] COUNSEL, STEPHANIE S 304.00 SA OPIOID DEPENDENCE 08/07/2009 [...] SHAW DO, CACHORRO K 414.01 CAD 08/16/2009 HSAW DO, CACHORRO K 443.9 PERIPHERAL ARTERIAL DISEASE [...] JE Cabrera 780.2 Syncope And Collapse 08/16/2009 SHWA DO, CACHORRO K 414.01 CAD 08/16/2009 SHAW DO, CACHORRO K 443.9 PERIPHERAL ARTERIAL DISEASE 08/16/2009 SHAW DO, CACHORRO K 458.0 Orthostatic Hypotension 08/16/2009 SHAW DO, CACHORRO K 461.0 Acute Maxillary Sinusitis 08/16/2009 SHAW DO, CACHORRO K 780.2 Syncope And Collapse 08/16/2009 ARESN [place] COUNSEL, SIMRAN 414.01 CAD 08/16/2009 ARSEN [place] COUNSEL, SIMARN 443.9 PERIPHERAL ARTERIAL DISEASE 08/16/2009 ARSEN [place] COUNSEL, SIMRAN 458.0 Orthostatic Hypotension 08/16/2009 ARSEN [place] COUNSEL, SIMRAN 461.0 Acute Maxillary Sinusitis 08/16/2009 ARSEN [place] COUNSEL, SIMRAN 780.2 Syncope And Collapse 08/16/2009 ARSEN [place] COUNSEL, SIMRAN 414.01 CAD 08/16/2009 ARSEN [place] COUNSEL, SIMRAN 443.9 PERIPHERAL ARTERIAL DISEASE 08/16/2009 ARSEN [place] COUNSEL, SIMRAN 458.0 Orthostatic Hypotension 08/16/2009 ARSEN [place] COUNSEL, SIMRAN 461.0 Acute Maxillary Sinusitis 08/16/2009 ARSEN [place] COUNSEL, SIMRAN 780.2 Syncope And Collapse 08/16/2009 SHAW [...] Controlled 10/02/2009 250.00 Diabetes Ii Controlled 10/02/2009 HSAW DO, CACHORRO K 250.00 Diabetes Ii Controlled [...] 272.4 HYPERLIPIDEMIA HYPERLIPOPROTEINEMIAS (Old Classification) 12/06/2009 A[place]EN [place], SIMRAN 250.60 DIABETES MELLITUS DIABETIC PERIPHERAL NEUROPATHY 12/06/2009 ARSEN [place] COUNSEL, SIMRAN 272.4 HYPERLIPIDEMIA HYPERLIPOPROTEINEMIAS (Old Classification) 12/06/2009 ARSEN [place] COUNSEL, SIMRAN 250.60 DIABETES MELLITUS DIABETIC PERIPHERAL NEUROPATHY 12/06/2009 ARSEN [place] COUNSEL, SIMRAN 272.4 HYPERLIPIDEMIA HYPERLIPOPROTEINEMIAS (Old Classification) 12/06/2009 [...] 250.60 DIABETES MELLITUS DIABETIC PERIPHERAL NEUROPATHY 12/06/2009 STEPHANEI CHRISTIANSEN APRN 272.4 HYPERLIPIDEMIA HYPERLIPOPROTEINEMIAS (Old Classification) [...] Unspecified Episodic Mood Disorder 02/01/2010 SHAW DO, CAHCORRO K 296.90 Unspecified Episodic Mood Disorder 02/01/2010 SHAW DO, CACHORRO K 296.90 Unspecified Episodic Mood Disorder 02/01/2010 SHAW DO, CACHORRO K 296.90 Unspecified Episodic Mood Disorder 02/01/2010 VENUS SUN, JE Cabrera 296.90 Unspecified Episodic Mood Disorder 02/01/2010 VENUS SUN, JE Cabrera 296.90 Unspecified Episodic Mood Disorder 02/01/2010 SHAW DO, CACHORRO K 296.90 Unspecified Episodic Mood Disorder 02/01/2010 ARSEN [place] COUNSEL, SIMRAN 296.90 Unspecified Episodic Mood Disorder 02/01/2010 ARSEN [place] COUNSEL, SIMRAN 296.90 Unspecified Episodic Mood Disorder 02/01/2010 [...] 789.00 Abdominal Pain Unspecified Site 02/07/2010 ARSEN [place] COUNSEL, SIMRAN 789.00 Abdominal Pain Unspecified Site 02/07/2010 ARSEN [place] COUNSEL, SIMRAN 789.00 Abdominal Pain Unspecified Site 02/07/2010 [...] DISORDER RECURRENT EPISODE UNSPECIFIED DEGREE 06/07/2010 ARSEN [place] COUNSEL, SIMRAN 296.30 MAJOR DEPRESSIVE AFFECTIVE DISORDER RECURRENT [...] OF METHICILLIN RESISTANT STAPHYLOCOCCUS AUREUS 01/17/2011 ARSEN [place] COUNSEL, SIMRAN 786.52 Chest Wall Pain 01/17/2011 ARSEN [place] COUNSEL, SIMRAN 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 01/17/2011 ARSEN [place] COUNSEL, SIMRAN 786.52 Chest Wall Pain 01/17/2011 ARSEN [place] COUNSEL, SIMRAN 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 HISTORY OF METHICILLIN RESISTANT [...] K V76.51 COLON CANCER SCREENING 03/25/2011 ARSEN [place] COUNSEL, SIMRAN 789.06 Abdominal Pain Epigastric 03/25/2011 ARSEN [place] COUNSEL, SIMRAN V76.51 COLON CANCER SCREENING 03/25/2011 ARSEN [place] COUNSEL, SIMRAN 789.06 Abdominal Pain Epigastric 03/25/2011 ARSEN [place] COUNSEL, SIMRAN V76.51 COLON CANCER SCREENING 03/25/2011 SHAW [...] K V58.69 MEDICATION HIGH RISK 04/08/2011 ARSEN [place] COUNSEL, SIMRAN V58.69 MEDICATION HIGH RISK 04/08/2011 ARSEN [place] COUNSEL, SIMRAN V58.69 MEDICATION HIGH RISK 04/08/2011 SHAW [...] CACHORRO K 466.0 Acute Bronchitis 06/20/2011 ARSEN [place] COUNSEL, SIMRAN 466.0 Acute Bronchitis 06/20/2011 ARSEN [place] COUNSEL, SIMRAN 466.0 Acute Bronchitis 06/20/2011 SHAW DO, [...] MUÑOZ 780.4 Dizziness And Vertigo 12/11/2011 A[place] COUNSELS[place]AN Braun 780.4 Dizziness And Vertigo 12/11/2011 SHAW [...] CACHORRO K 780.09 OR DELERIUM NOS 03/19/2012 A[place] COUNSELS[place]AN Braun 293.0 DELIRIUM DUE TO CONDITIONS CLASSIFIED ELSEWHERE 03/19/2012 ARSEN [place] COUNSEL, SIMRAN 780.09 OR DELERIUM NOS 03/19/2012 ARSEN [place] COUNSEL, SIMRAN 293.0 DELIRIUM DUE TO CONDITIONS CLASSIFIED ELSEWHERE 03/19/2012 ARSEN [place] COUNSEL, SIMRAN 780.09 OR DELERIUM NOS 03/19/2012 CACHORRO [...] NEC 03/21/2012 Ot 414.01 CORONARY ATHEROSCLEROSIS OF [place] CORON 03/21/2012 Ot 433.10 CAROTID ARTERY OCCLUSION [...] DO, CACHORRO K 780.79 fatigue 09/09/2012 A[place]SEL, SIMRAN 780.79 fatigue 09/09/2012 ARS[place] COUNSEL, SIMRAN 780.79 fatigue 09/09/2012 SHAW DO, CACHORRO K 780.79 fatigue 09/09/2012 TANVIR JAMES, CLARIBEL Braun 780.79 fatigue 09/09/2012 ЕЛЕНА MUÑOZ, STEPHANIE S 780.79 fatigue 09/09/2012 JOLLY DEALNEY MD 780.79 fatigue 09/09/2012 ЕЛЕНА MUÑOZ STEPHANIE [...] 724.79 OTHER DISORDERS OF COCCYX 11/02/2012 ARSEN [place] COUNSEL, SIMRAN 715.16 OSTEOARTHROSIS LOCALIZED PRIMARY INVOLVING LOWER LEG 11/02/2012 ARSEN [place] COUNSEL, SIMRAN 724.79 OTHER DISORDERS OF COCCYX 11/02/2012 ARSEN [place] COUNSEL, SIMRAN 715.16 OSTEOARTHROSIS LOCALIZED PRIMARY INVOLVING LOWER LEG 11/02/2012 ARSEN [place] COUNSEL, SIMRAN 724.79 OTHER DISORDERS OF COCCYX 11/02/2012 [...] SIMRAN 728.87 MUSCLE WEAKNESS (GENERALIZED) 01/19/2013 ARSEN [place] COUNSEL, SIMRAN 782.0 DISTURBANCE OF SKIN SENSATION 01/19/2013 ARSEN [place] COUNSEL, SIMRAN V15.81 PERSONAL HISTORY OF NONCOMPLIANCE WITH [...] TREATMENT PRESENTING HAZARDS TO HEALTH 01/19/2013 ЕЛЕНА [place] COUNSEL, STEPHANIE S 728.87 MUSCLE WEAKNESS (GENERALIZED) 01/19/2013 [...] K 724.5 BACK PAIN, GENERAL 02/02/2013 ARSEN [place] COUNSEL, SIMRAN 724.5 BACK PAIN, GENERAL 02/02/2013 ARSEN [place] COUNSEL, SIMRAN 724.5 BACK PAIN, GENERAL 02/02/2013 SHAW DO, CACHORRO K 724.5 BACK PAIN, GENERAL 02/02/2013 CLARIBEL RAMEY MD 724.5 BACK PAIN, GENERAL 02/02/2013 ALBERT CHRISTIANSEN APRNNDA S 724.5 BACK PAIN, GENERAL 02/02/2013 JOLLY DELANEY MD4.5 BACK PAIN, GENERAL 02/02/2013 ALBERT CHRISTIANSEN APRNNDA S 724.5 BACK PAIN, GENERAL 02/16/2013 BRIAN HUGO [place] COUNSEL Ot 465.9 ACUTE URI NOS 02/16/2013 BRIAN [place] COUNSEL Ot 719.41 JOINT PAIN-SHLDER 06/03/2013 SHAW DO, [...] STEPHANIE CHRISTIANSEN APRN S 285.9 ANEMIA 06/03/2013 JOLYL DELANEY MD 285.9 ANEMIA 06/03/2013 STEPHANIE CHRISTIANSEN APRN S 285.9 ANEMIA 06/23/2013 BRIAN [place] COUNSEL Ot 305.50 OPIOID ABUSE-UNSPEC 06/23/2013 BIRAN HUGO [place] COUNSEL Ot 780.97 ALTERED MENTAL STATUS 06/28/2013 SHAW [...] SHAW DO Ot 414.01 CORONARY ATHEROSCLEROSIS OF [place] CORON 06/28/2013 CACHORRO SHAW DO Ot 433.10 [...] ABNORMAL LFT (LIVER FUNCTION TEST) 07/19/2013 ARSEN [place] COUNSEL, SIMRAN 276.1 HYPONATREMIA 07/19/2013 ARSEN WANDA SIMRAN 790.6 ABNORMAL LFT (LIVER FUNCTION TEST) 07/19/2013 A[place], SIMRAN 276.1 HYPONATREMIA 07/19/2013 A[place] COUNSEL, SIMRAN 790.6 ABNORMAL LFT (LIVER FUNCTION TEST) [...] INFARCT 09/10/2013 EMELIA BORJAS Ot 440.24 ATHEROSCL [place] ARTERIES EXTREMITIES W 09/10/2013 EMELIA BORJAS Ot [...] Ot 305.1 TOBACCO USE DISORDER 01/06/2014 CACHORRO HSAW DO Ot 305.50 OPIOID ABUSE-UNSPEC 01/06/2014 CACHORRO SHAW DO Ot 345.90 EPILEPSY UNSPEC W/O MENTION INTRACTABLE 01/06/2014 CACHORRO SHAW DO Ot 401.9 HYPERTENSION NOS 01/06/2014 CACHORRO SHAW DO Ot 412 OLD MYOCARDIAL INFARCT 01/06/2014 CACHORRO SAHW DO Ot 414.01 CORONARY ATHEROSCLEROSIS OF [place] CORON 01/06/2014 CACHORRO SHAW DO Ot 414.8 CHR ISCHEMIC HRT DIS NEC 01/06/2014 CACHORRO SHAW DO Ot 433.10 CAROTID ARTERY OCCLUSION W O CEREBRAL IN 01/06/2014 CACHORRO SHAW DO Ot 433.30 MULT BILTRAL ARTERY OCCLUSION WO CEREBRA 01/06/2014 CACHORRO SHAW DO Ot 438.89 OTH LATE EFFECT-CEREBROVASCULAR DISEASE 01/06/2014 CACHORRO SHAW DO Ot 440.20 ATHEROSCLEROSIS [place] ARTERIES EXTREMIT 01/06/2014 CACHORRO SHAW DO Ot [...] RAMEY MD Ot 414.01 CORONARY ATHEROSCLEROSIS OF [place] CORON 01/20/2014 CLARIBEL RAMEY MD Ot 433.10 CAROTID ARTERY OCCLUSION W O CEREBRAL IN 01/20/2014 CLARIBEL RAMEY MD Ot 433.30 MULT BILTRAL ARTERY OCCLUSION WO CEREBRA 01/20/2014 CLARIBEL RAMEY MD Ot 438.89 OTH LATE EFFECT-CEREBROVASCULAR DISEASE 01/20/2014 CLARIBEL RAMEY MD Ot 440.20 ATHEROSCLEROSIS [place] ARTERIES EXTREMIT 01/20/2014 CLARIBEL RAMEY MD Ot [...] STEPHANIE CHRISTIANSENP Ot E05.90 03/16/2015 STEPHANIE CHRISTIANSEN BALANCE WEIGHER Ot E05.90 03/21/2015 STEPHANIE CHRISTIANSEN BALANCE WEIGHER Ot E05.90 02/09/2016 Ot 433.10 CAROTID ARTERY OCCLUSION W O CEREBRAL IN 02/09/2016 Ot 433.30 MULT BILTRAL ARTERY OCCLUSION WO CEREBRA 02/09/2016 STEPHANIE CHRISTIANSEN BALANCE WEIGHER Ot E05.90 THYROTOXICOSIS, UNSP WITHOUT THYROTOXIC 02/12/2016 [...] PERIPHERAL VASCULAR DISEASE, UNSPECIFIED 05/28/2016 STEPHANIE CHRISTIANSEN BALANCE WEIGHER Ot I73.9 PERIPHERAL VASCULAR DISEASE, UNSPECIFIED 06/05/2016 ELAINA JAMES, JOLLY Alcantara Ot Z87.440 PERSONAL HISTORY OF URINARY (TRACT) INFE 06/12/2016 BRIAN [place] COUN[place] Ot 305.50 OPIOID ABUSE-UNSPEC 06/12/2016 BRIAN [place] COUNSEL Ot 780.97 ALTERED MENTAL STATUS 06/17/2016 STEPHANIE CHRISTIANSEN Ot I73.9 PERIPHERAL VASCULAR DISEASE, UNSPECIFIED 06/19/2016 SETPHANIE CHRISTIANSEN BALANCE WEIGHER Ot I73.9 PERIPHERAL VASCULAR DISEASE, UNSPECIFIED 06/25/2016 ELAINA JAMES, JOLLY Alcantara Ot Z87.440 PERSONAL HISTORY OF URINARY (TRACT) INFE 07/02/2016 ELAINA JAEMS, JOLLY Alcantara Ot Z87.440 PERSONAL HISTORY OF [...] WESLY ZHANG I25.10 ATHSCL HEART DISEASE OF [place] CORONARY ARTERY W/O ANG PCTRS 07/06/2016 WESLY [...] 07/19/2016 DONG DO, CUCO K Ot Z79.4 DIRECTOR BIOINFORMATICS (CURRENT) USE OF INSULIN 07/19/2016 DONG DO, CUCO K Ot Z79.82 [facility] (CURRENT) USE OF ASPIRIN 07/19/2016 DONG DO, CUCO K Ot Z79.899 OTHER DIRECTOR BIOINFORMATICS (CURRENT) DRUG THERAPY 07/19/2016 DONG DO, CUCO [...] CUCO UMANA DO Ot R53.1 WEAKNESS 07/22/2016 CUCO UMANA DO Ot Z79.4 DIRECTOR BIOINFORMATICS (CURRENT) USE OF INSULIN 07/22/2016 CUCO UMANA DO Ot Z79.82 [facility] (CURRENT) USE OF ASPIRIN 07/22/2016 CUCO UMANA DO Ot Z79.899 OTHER [facility] (CURRENT) DRUG THERAPY 07/22/2016 CUCO UMANA DO Ot Z86.73 PRSNL HX OF TIA (TIA), AND CEREB INFRC W 07/22/2016 CUCO UMANA DO Ot Z95.5 PRESENCE OF CORONARY ANGIOPLASTY IMPLANT 01/12/2017 BRIAN [place] COUNSEL Ot 305.50 OPIOID ABUSE-UNSPEC 01/12/2017 BRIAN [place] COUNSEL Ot 780.97 ALTERED MENTAL STATUS 03/05/2017 BRIDGER JUSTICE MD Ot E03.9 HYPOTHYROIDISM, UNSPECIFIED 03/05/2017 BRIDGER JUSTICE MD Ot E11.9 TYPE 2 DIABETES MELLITUS WITHOUT COMPLIC 03/05/2017 BRIDGER JUSTICE MD Ot E78.5 HYPERLIPIDEMIA, UNSPECIFIED 03/05/2017 BRIDGER JUSTICE MD Ot F17.210 NICOTINE DEPENDENCE, CIGARETTES, UNCOMPL 03/05/2017 BRIDGER JUSTICE MD Ot I10 ESSENTIAL (PRIMARY) HYPERTENSION 03/05/2017 BRIDGER JUSTICE MD Ot I25.10 ATHSCL HEART DISEASE OF [place] CORONARY 03/05/2017 BRIDGER JUSTICE MD Ot I25.2 OLD MYOCARDIAL INFARCTION 03/05/2017 BRIDGER JUSTICE MD Ot I69.320 APHASIA FOLLOWING CEREBRAL INFARCTION 03/05/2017 BRIDGER JUSTICE MD Ot I69.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 03/05/2017 BRIDGER JUSTICE MD Ot I70.201 UNSP ATHSCL [place] ARTERIES OF EXTREMITI 03/05/2017 BRIDGER JUSTICE MD Ot I70.245 ATHSCL [place] ARTERIES OF LEFT LEG W ULC 03/05/2017 BRIDGER JUSTICE MD Ot L97.529 NON-PRESSURE CHRONIC ULCER OTH PRT LEFT 03/05/2017 BRIDGER JUSTICE MD Ot Z79.02 [facility] (CURRENT) USE OF ANTITHROMBOTI 03/05/2017 BRIDGER JUSTICE MD, Ot Z79.4 [facility] (CURRENT) USE OF INSULIN 03/05/2017 BRIDGER JUSTICE MD, Ot Z79.899 OTHER DIRECTOR BIOINFORMATICS (CURRENT) DRUG THERAPY 03/05/2017 BRIDGER JUSTICE MD, Ot Z91.14 PATIENT'S OTHER NONCOMPLIANCE WITH MEDIC 03/19/2017 MARLENY PRIETO Ot I70.203 UNSP ATHSCL [place] ARTERIES OF [facility] 03/19/2017 MARLENY PRIETO Ot 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 04/09/2017 MARLENY PRIETO Ot I70.203 UNSP ATHSCL [place] ARTERIES OF [facility] 04/09/2017 MARLENY PRIETO Ot 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 04/10/2017 MARLENY PRIETO Ot I70.203 UNSP ATHSCL [place] ARTERIES OF [facility] 04/10/2017 MARLENY PRIETO Ot I70.8 ATHEROSCLEROSIS OF [...] 05/07/2017 MARLENY PRIETO Ot I70.203 UNSP ATHSCL [place] ARTERIES OF [facility] 05/07/2017 MARLENY PRIETO Ot I70.8 ATHEROSCLEROSIS OF [...] Q Ot I25.10 ATHSCL HEART DISEASE OF [place] CORONARY 05/12/2017 ZULLY DPM, [place] Q Ot I25.2 OLD MYOCARDIAL INFARCTION 05/12/2017 ZULLY DPM, [place] Q Ot I73.9 PERIPHERAL VASCULAR DISEASE, UNSPECIFIED 05/12/2017 ZULLY DPM, [place] Q Ot K21.9 GASTRO-ESOPHAGEAL REFLUX DISEASE WITHOUT 05/12/2017 ZULLY DPM, [place] Q Ot M86.672 OTHER CHRONIC OSTEOMYELITIS, LEFT ANKLE 05/12/2017 ZULLY DPM, [place] Q Ot Z79.02 DIRECTOR BIOINFORMATICS (CURRENT) USE OF ANTITHROMBOTI 05/12/2017 ZULLY DPM, [place] Q Ot Z79.4 [facility] (CURRENT) USE OF INSULIN 05/12/2017 ZULLY DPM, [place] Q Ot Z79.82 DIRECTOR BIOINFORMATICS (CURRENT) USE OF ASPIRIN 05/12/2017 ZULLY DPM, [place] Q Ot Z79.899 OTHER DIRECTOR BIOINFORMATICS (CURRENT) DRUG THERAPY 05/12/2017 ZULLY DPM, [place] [...] Q Ot I25.10 ATHSCL HEART DISEASE OF [place] CORONARY 05/12/2017 ZULLY DPM, [place] Q Ot I25.2 OLD MYOCARDIAL INFARCTION 05/12/2017 ZULLY DPM, [place] Q Ot I73.9 PERIPHERAL VASCULAR DISEASE, UNSPECIFIED 05/12/2017 ZULLY DPM, [place] Q Ot K21.9 GASTRO-ESOPHAGEAL REFLUX DISEASE WITHOUT 05/12/2017 ZULLY DPM, [place] Q Ot M86.672 OTHER CHRONIC OSTEOMYELITIS, LEFT ANKLE 05/12/2017 ZULLY DPM, [place] Q Ot Z79.02 [facility] (CURRENT) USE OF ANTITHROMBOTI 05/12/2017 ZULLY DPM, [place] Q Ot Z79.4 [facility] (CURRENT) USE OF INSULIN 05/12/2017 ZULLY DPM, [place] Q Ot Z79.82 DIRECTOR BIOINFORMATICS (CURRENT) USE OF ASPIRIN 05/12/2017 ZULLY DPM, [place] Q Ot Z79.899 OTHER DIRECTOR BIOINFORMATICS (CURRENT) DRUG THERAPY 05/12/2017 ZULLY DPM, [place] [...] Ot F03.90 UNSPECIFIED DEMENTIA WITHOUT BEHAVIORAL 05/16/2017 UZLLY DPM, [place] Q Ot F17.210 NICOTINE DEPENDENCE, CIGARETTES, UNCOMPL 05/16/2017 ZULLY DPM, [place] Q Ot F32.9 MAJOR DEPRESSIVE DISORDER, SINGLE EPISOD 05/16/2017 ZULLY DPM, [place] Q Ot F41.9 ANXIETY DISORDER, UNSPECIFIED 05/16/2017 ZULLY DPM, [place] Q Ot I10 ESSENTIAL (PRIMARY) HYPERTENSION 05/16/2017 ZULLY DPM, [place] Q Ot I25.10 ATHSCL HEART DISEASE OF [place] CORONARY 05/16/2017 ZULLY DPM, [place] Q Ot I25.2 OLD MYOCARDIAL INFARCTION 05/16/2017 ZULLY DPM, [place] Q Ot I73.9 PERIPHERAL VASCULAR DISEASE, UNSPECIFIED 05/16/2017 ZULLY DPM, [place] Q Ot K21.9 GASTRO-ESOPHAGEAL REFLUX DISEASE WITHOUT 05/16/2017 ZULLY DPM, [place] Q Ot M86.672 OTHER CHRONIC OSTEOMYELITIS, LEFT ANKLE 05/16/2017 ZULLY DPM, [place] Q Ot Z79.02 [facility] (CURRENT) USE OF ANTITHROMBOTI 05/16/2017 ZULLY DPM, [place] Q Ot Z79.4 DIRECTOR BIOINFORMATICS (CURRENT) USE OF INSULIN 05/16/2017 ZULLY DPM, [place] Q Ot Z79.82 [facility] (CURRENT) USE OF ASPIRIN 05/16/2017 ZULLY DPM, [place] Q Ot Z79.899 OTHER [facility] (CURRENT) DRUG THERAPY 05/16/2017 ZULLY DPM, [place] [...] Q Ot I25.10 ATHSCL HEART DISEASE OF [place] CORONARY 05/30/2017 ZULLY DPM, [place] Q Ot I25.2 OLD MYOCARDIAL INFARCTION 05/30/2017 ZULLY DPM, [place] Q Ot I73.9 PERIPHERAL VASCULAR DISEASE, UNSPECIFIED 05/30/2017 ZULLY DPM, [place] Q Ot K21.9 GASTRO-ESOPHAGEAL REFLUX DISEASE WITHOUT 05/30/2017 ZULLY DPM, [place] Q Ot M86.672 OTHER CHRONIC OSTEOMYELITIS, LEFT ANKLE 05/30/2017 ZULLY DPM, [place] Q Ot Z79.02 DIRECTOR BIOINFORMATICS (CURRENT) USE OF ANTITHROMBOTI 05/30/2017 ZULLY DPM, [place] Q Ot Z79.4 DIRECTOR BIOINFORMATICS (CURRENT) USE OF INSULIN 05/30/2017 ZULLY DPM, [place] Q Ot Z79.82 DIRECTOR BIOINFORMATICS (CURRENT) USE OF ASPIRIN 05/30/2017 ZULLY DPM, [place] Q Ot Z79.899 OTHER DIRECTOR BIOINFORMATICS (CURRENT) DRUG THERAPY 05/30/2017 ZULLY DPM, [place] [...] Q Ot I25.10 ATHSCL HEART DISEASE OF [place] CORONARY 06/16/2017 ZULLY DPM, [place] Q Ot I25.2 OLD MYOCARDIAL INFARCTION 06/16/2017 ZULLY DPM, [place] Q Ot I73.9 PERIPHERAL VASCULAR DISEASE, UNSPECIFIED 06/16/2017 ZULLY DPM, [place] Q Ot K21.9 GASTRO-ESOPHAGEAL REFLUX DISEASE WITHOUT 06/16/2017 ZULLY DPM, [place] Q Ot M86.672 OTHER CHRONIC OSTEOMYELITIS, LEFT ANKLE 06/16/2017 ZULLY DPM, [place] Q Ot Z79.02 [facility] (CURRENT) USE OF ANTITHROMBOTI 06/16/2017 ZULLY DPM, [place] Q Ot Z79.4 [facility] (CURRENT) USE OF INSULIN 06/16/2017 ZULLY DPM, [place] Q Ot Z79.82 DIRECTOR BIOINFORMATICS (CURRENT) USE OF ASPIRIN 06/16/2017 ZULLY DPM, [place] Q Ot Z79.899 OTHER [facility] (CURRENT) DRUG THERAPY 06/16/2017 ZULLY DPM, [place] Q Ot Z86.73 PRSNL HX OF TIA (TIA), AND CEREB INFRC W 06/16/2017 ZULLY DPM, [place] Q Ot Z95.5 PRESENCE OF CORONARY ANGIOPLASTY IMPLANT 06/16/2017 OSBALDO JAMES, MARITZA Ot Z01.810 ENCOUNTER FOR PREPROCEDURAL CARDIOVASCUL Procedures Code Description Performed By Performed On 38.93 VENOUS CATHETERIZATION NEC 01/07/2011 69337 A1C (IN-HOUSE) 02/17/2012 90639 XRAY LUMBAR SPINE 2 OR 3 VIEWS 03/18/2012 69256 OXIMETRY 03/25/2012 27083 OXIMETRY 03/26/2012 34953 SLEEP STUDY 03/26/2012 64084 GLUCOSE FINGER STICK 03/26/2012 30422 SLEEP STUDY 03/27/2012 J1815 Novolin r 100 units/ml vial 100 unit/mL Solution 04/13/2012 32479 MONO TEST (IN-HOUSE) 09/09/2012 17132 MICRO ALBUMIN-IN HOUSE 09/11/2012 49676 ROUTINE VENIPUNCTURE 01/19/[address] SPINE, LUMBAR W/ AND W/O CONTRAST 01/19/2013 14225 TSH 01/19/[address] SPINE, LUMBAR W/O CONTRAST 01/21/[address] ABDOMEN AND PELVIS W/ CONTRAST 01/21/2013 13154 ROUTINE VENIPUNCTURE 06/03/2013 97679 CMP 06/03/2013 10531 TSH 06/03/2013 51770 CBC 06/03/2013 J1815 Novolin r 100 units/ml vial 100 unit/mL solution 06/03/2013 28058 A1C (IN-HOUSE) 06/03/2013 17967 ROUTINE VENIPUNCTURE 07/19/2013 20129 CMP 07/19/2013 ADDICTION MAGDALENA, CLYDE-LAC 07/19/2013 05131 ROUTINE VENIPUNCTURE 10/08/2013 98972 A1C (IN-HOUSE) 10/08/2013 03447 CBC 10/08/2013 3024774 GFR CALC (RESULT ONLY) 10/08/2013 36645 CMP 10/08/2013 94640 IRON SERUM 10/08/2013 68442 IRON BNDNG CAP 10/08/2013 80177 MAGNESIUM 10/08/2013 46174 VIT B 12 10/08/2013 49226 TSH 10/08/2013 61409 FOLATE 10/08/2013 80297 FERRITIN 10/08/2013 IRGROUP IRON GROUP (Iron,TIBC, Ferritin) 10/12/2013 81398 MRI EXTREMITY JOINT, UPPER LEFT, W/O CONTRAST 10/19/2013 58144 PSYCH DIAGNOSTIC EVALUATION 11/02/2013 61244 PSYTX PT&/FAMILY 30 MINUTES 11/11/2013 PHYSICAL WOUND CARE, [facility] 11/12/2013 37.22 LEFT HEART CARDIAC CATH 01/05/2014 [...] Bacteria identification in isolate by anaerobe culture [id number] NRG Bacteria identification in isolate by anaerobe culture - 05/09/17 14:40 QUANTITY OF GROWTH Scant Growth NRG Bacteria identification in isolate by anaerobe culture [id number] NRG Gram stain microscopy - 05/09/17 14:40 GRAM STAIN RESULT NO BACTERIA OBSERVED NRG Gram stain microscopy - 05/09/17 14:40 GRAM STAIN RESULT FEW GRAM NEGATIVE RODS NRG Bacteria identification in wound by culture - 05/09/17 14:40 Bacteria identification in wound by culture [id number] NRG FREE TEXT EXTERNAL SEE COMMENT NRG [...] NR Blood erythrocyte morphology finding identification [facility] Comprehensive metabolic panel - 10/26/17 10:44 [...] Status Pt. Type Provider Facility Loc./Unit Complaint [id number] 06/29/2014 07:50:00 06/29/2014 23:59:59 CLS Outpatient STEPHANIE CHRISTIANSEN APRN [id number] 04/21/2014 09:44:00 04/21/2014 23:59:59 CLS Outpatient JOLLY DELANEY MD [id number] 02/16/2014 08:48:00 02/16/2014 23:59:59 CLS Outpatient STEPHANIE CHRISTIANSEN APRN [id number] 02/05/2014 06:56:00 02/05/2014 23:59:59 CLS Outpatient CLARIBEL RAMEY MD [id number] 01/21/2014 10:00:00 01/21/2014 23:59:59 CLS Outpatient CACHORRO SHAW DO [id number] 12/17/2013 09:57:00 12/17/2013 23:59:59 CLS Outpatient SIMRAN LEGER APRN [id number] 12/17/2013 09:57:00 12/17/2013 23:59:59 CLS Outpatient SIMRAN LEGER APRN [id number] 11/12/2013 09:52:00 11/12/2013 23:59:59 CLS Outpatient CACHORRO SHAW DO [id number] 11/11/2013 15:58:00 11/11/2013 23:59:59 CLS Outpatient JE DONOVAN PHD [id number] 11/02/2013 13:59:00 11/02/2013 23:59:59 CLS Outpatient JE DONOVAN PHD [id number] 10/19/2013 16:42:00 10/19/2013 23:59:59 CLS Outpatient CACHORRO SHAW DO [id number] 10/08/2013 12:05:00 10/08/2013 23:59:59 CLS Outpatient CACHORRO SHAW DO [id number] 10/08/2013 12:05:00 10/08/2013 23:59:59 CLS Outpatient [place] SHAW DO [id number] 07/21/2013 17:05:00 07/21/2013 23:59:59 CLS Outpatient JOLLY DELANEY MD [id number] 07/19/2013 11:17:00 07/19/2013 23:59:59 CLS Outpatient SHAW DOCACHORRO [id number] 06/03/2013 11:22:00 06/03/2013 23:59:59 CLS Outpatient SHAW DOCACHORRO [id number] 06/03/2013 11:22:00 06/03/2013 23:59:59 CLS Outpatient SHAW DOCACHORRO [id number] 01/19/2013 11:42:00 01/19/2013 23:59:59 CLS Outpatient SHAW DOCACHORRO [id number] 01/19/2013 11:42:00 01/19/2013 23:59:59 CLS Outpatient SHAW DOCACHORRO [id number] 11/02/2012 10:38:00 11/02/2012 23:59:59 CLS Outpatient SHAW DOCACHORRO [id number] 04/22/2012 11:01:00 04/22/2012 23:59:59 CLS Outpatient [id number] 04/13/2012 09:16:00 04/13/2012 23:59:59 CLS Outpatient SHAW DOCACHORRO [id number] 03/26/2012 08:41:00 03/26/2012 23:59:59 CLS Outpatient SHAW DOCACHORRO [id number] 03/26/2012 08:41:00 03/26/2012 23:59:59 CLS Outpatient SHAW DOCACHORRO [id number] 03/18/2012 15:47:00 03/18/2012 23:59:59 CLS Outpatient [id number] 02/17/2012 16:33:00 02/17/2012 23:59:59 CLS Outpatient SHAW DOCACHORRO [id number] 09/11/2012 09:20:00 Document Registration [id number] 09/09/2012 14:05:00 Document Registration [id number] 09/09/2012 14:05:00 Document Registration [id number] 09/23/2014 02:42:46 ACT Document Registration [id number] 05/12/2017 17:29:00 05/12/2017 23:59:59 CLS Outpatient MARITZA ROBLERO MD [facility] CARD PREOPERATIVE CARDIOVASCULAR EXAM [id number] 05/09/2017 11:20:00 05/09/2017 23:59:59 CLS Outpatient ZULLY DPM KENTON Q [facility] SDC OSTEOMYELITIS LEFT GREAT TOE [id number] 05/07/2017 10:23:00 05/07/2017 10:50:00 DIS Outpatient ZULLY DPM KENTON Q [facility] PREOP OSTEOMYELITIS LEFT GREAT TOE [id number] 04/21/2017 10:52:00 04/21/2017 23:59:59 CLS Outpatient ZULLY DPM [place] Q [facility] RAD CHONIC ULCERATION LEFT HALLUX [id number] 03/17/2017 12:19:00 03/17/2017 23:59:59 CLS Outpatient MARLENY PRIETO [facility] RAD [id number] PAD [id number] 03/05/2017 07:35:00 03/05/2017 17:15:00 DIS Outpatient BRIDGER JUSTICE MD [facility] CATH NONHEALING WOUND, ABN CASI [id number] 07/19/2016 19:23:00 07/19/2016 23:10:00 DIS Emergency CUCO UMANA DO [facility] ER DIARRHEA [id number] 06/04/2016 19:10:00 06/04/2016 23:59:59 CLS Outpatient JOLLY DELANEY MD [facility] GLC [id number] 05/22/2016 12:10:00 05/22/2016 23:59:59 CLS Outpatient STEPHANIE CHRISTIANSEN [facility] RAD PVD [id number] 02/09/2016 14:51:00 02/09/2016 23:59:59 CLS Outpatient JOLLY DELANEY MD [facility] LAB DIABETES [id number] 02/24/2015 13:06:00 02/24/2015 23:59:59 CLS Outpatient STEPHANIE CHRISTIANSEN [facility] RAD HYPERTHYROIDISM [id number] 09/22/2014 16:16:00 09/22/2014 18:57:00 DIS Emergency BRIAN HUGO APRN [facility] ER AMS [id number] 09/09/2014 16:15:00 09/09/2014 18:33:00 DIS Emergency MAN JAMES, TASIA Cabrera [facility] ER CONFUSION,NOT FEELING WELL [id number] 04/23/2014 09:25:00 04/23/2014 09:25:00 CAN Emergency KENTRELL BRADLEY MD [facility] ER [id number] 01/03/2014 14:15:00 02/03/2014 11:01:00 DIS Outpatient CAROL STRICKLAND [facility] WOUNDCARE RIGHT TOE AMPUTATION [id number] 01/19/2014 14:25:00 01/20/2014 15:25:00 DIS Inpatient TANVIR JAMES, CLARIBEL Braun [facility] 4TH DIABETES OUT OF CONTROL [id number] 01/05/2014 04:58:00 01/06/2014 11:30:00 DIS Inpatient CACHORRO SHAW DO [facility] CSD EXACERBATION OF LATE CVA EFFECTS,AMS,HYPONATREMIA, [id number] 09/10/2013 16:15:00 09/10/2013 21:10:00 DIS Emergency EMELIA BORJAS [facility] ER BLACK TOE ON R FOOT [id number] 09/04/2013 13:50:00 09/04/2013 16:09:00 DIS Emergency CAROL CARRILLO MD [facility] ER LOW BLOOD SUGAR [id number] 08/27/2013 07:59:00 08/27/2013 12:10:00 DIS Emergency YOLY DURBIN MD [facility] ER HYPOGLYCEMIA [id number] 06/24/2013 10:51:00 06/28/2013 14:59:00 DIS Inpatient SHAW DOSUMITA K [facility] 4TH DEC LOC [id number] 06/23/2013 20:04:00 06/23/2013 23:00:00 DIS Emergency BRIAN HUGO APRN [facility] ER AMS [id number] 02/16/2013 10:26:00 02/16/2013 12:57:00 DIS Emergency BRIAN HUGO APRN [facility] ER LEFT SHOULDER/BACK PAIN [id number] 11/06/2012 14:14:00 11/06/2012 16:34:00 DIS Emergency RAMAKRISHNA JAMES, YOLY Larios [facility] ER CHEST PAIN [id number] 10/26/2017 10:58:00 Document Registration [id number] 02/10/2015 09:33:00 Document Registration [id number] 02/10/2015 09:33:00 Document Registration [id number] 02/10/2015 09:33:00 Document Registration [id number] 02/10/2015 09:33:00 Document Registration [id number] 02/10/2015 09:33:00 Document Registration [id number] 02/10/2015 09:33:00 Document Registration [id number] 09/22/2014 19:02:00 Document Registration [id number] 09/22/2014 19:02:00 Document Registration [id number] 09/22/2014 19:02:00 Document Registration [id number] 09/22/2014 19:01:00 Document Registration [id number] 03/20/2012 17:45:00 Document Registration [id number] 12/13/2011 12:01:00 Document Registration [id number] 12/09/2011 07:30:00 Document Registration [id number] 11/21/2011 08:13:00 Document Registration [id number] 10/08/2011 12:35:00 Document Registration [id number] 01/07/2011 23:01:00 Document Registration [id number] 10/16/2010 02:17:00 Document Registration [id number] 06/17/2010 04:07:00 Document Registration [id number] 02/16/2010 09:47:00 Document Registration [id number] 09/13/2009 10:01:00 Document Registration [id number] 07/06/2016 19:30:00 07/16/2016 12:30:00 [id number] 07/[facility]/2016 20:23:17 Document Registration
[2017-10-27 16:00] VITALS: BP 169/80
--- NOTE | 2017-10-27 20:37 | Progress Note (SOAP) ---
Subjective Subjective/Events-last exam Patient states that he is feeling better but still feeling weak. Has not been out of bed but is assist x1 to the commode. Tolerating PO diet. Review of Systems Date Seen by Provider: Oct 27, 2017 Time Seen by Provider: 10:35 General: Fatigue Pulmonary: Dyspnea, Cough Cardiovascular: No: Chest Pain, Palpitations, Orthopnea, Edema Gastrointestinal: No: Nausea, Vomiting, Abdominal Pain, Diarrhea, Constipation Genitourinary: No Dysuria; Frequency; No Hematuria Neurological: Weakness, Confusion Focused Exam Lactate Level 10/26/17 13:12: Lactic Acid Level 2.65*H 10/27/17 10:16: Lactic Acid Level 2.40*H 10/27/17 13:37: Lactic Acid Level 1.44 Objective Exam Last Set of Vital Signs Vital Signs Date Time Temp Pulse Resp B/P (MAP) Pulse Ox O2 Delivery O2 Flow Rate FiO2 10/27/17 16:00 98.6 90 22 169/80 (109) 96 Nasal Cannula 2.00 10/26/17 10:40 96 Capillary Refill : Less Than 3 SecondsLess Than 3 Seconds I&O Intake and Output 10/27/17 00:00 Intake Total 4760 ml Output Total 350 ml Balance 4410 ml Intake Oral 660 ml IV Total 4100 ml Output Urine Total 350 ml Daily Weight Change Unsure General: Alert, Oriented X3, Cooperative, No Acute Distress HEENT: Mucous Memb Moist/[place] Lungs: Clear to Auscultation, Normal Air Movement Heart: Regular Rate, No Murmurs Abdomen: Normal Bowel Sounds, Soft, No Tenderness, No Masses Skin: No Rashes Neuro: Normal Speech, Strength at 5/5 X4 Ext Psych/Mental Status: Mental Status NL, Mood NL Results/Procedures Lab Laboratory Tests 10/26/17 20:56: Glucometer 172H 10/27/17 05:58: Glucometer 104 10/27/17 10:16: White Blood Count 8.7, Red Blood Count 3.11L, Hemoglobin 10.0#L, Hematocrit 29L , Mean Corpuscular Volume 93, Mean Corpuscular Hemoglobin 32, Mean Corpuscular Hemoglobin Concent 35, Red Cell Distribution Width 12.9, Platelet Count 109L, Mean Platelet Volume 11.3H, Neutrophils (%) (Auto) 75, Lymphocytes (%) (Auto) 13 , Monocytes (%) (Auto) 11, Eosinophils (%) (Auto) 1, Basophils (%) (Auto) 1, Neutrophils # (Auto) 6.5, Lymphocytes # (Auto) 1.2, Monocytes # (Auto) 0.9, Eosinophils # (Auto) 0.1, Basophils # (Auto) 0.0, Sodium Level 134L, Potassium Level 4.2, Chloride Level 105, Carbon Dioxide Level 22, Anion Gap 7, Blood Urea Nitrogen 11, Creatinine 0.84, Estimat Glomerular Filtration Rate > 60, BUN/ Creatinine Ratio 13, Glucose Level 304H, Lactic Acid Level 2.40*H, Calcium Level 7.8L, Total Bilirubin 0.3, Aspartate Amino Transf (AST/SGOT) 22, Alanine Aminotransferase (ALT/SGPT) 20, Alkaline Phosphatase 89, Total Protein 5.1L, Albumin 2.9L 10/27/17 11:23: Glucometer 270H 10/27/17 11:49: Urine Color YELLOW, Urine Clarity CLEAR, Urine pH 6, Urine Specific [place] 1.015L, Urine Protein 3+H, Urine Glucose (UA) 2+H, Urine Ketones NEGATIVE, Urine Nitrite NEGATIVE, Urine Bilirubin NEGATIVE, Urine Urobilinogen NORMAL, Urine Leukocyte Esterase NEGATIVE, Urine RBC (Auto) 1+H, Urine RBC 0-2, Urine WBC NONE, Urine Squamous Epithelial Cells NONE, Urine Crystals NONE, Urine Bacteria NEGATIVE, Urine Casts NONE, Urine Mucus NEGATIVE, Urine Culture Indicated NO 10/27/17 13:37: Lactic Acid Level 1.44 10/27/17 15:37: Glucometer 195H Microbiology 10/26/17 Blood Culture - Preliminary, Resulted No growth Radiology NAME: JOLLY MANZANARES [facility] REC#: [id number] PT STATUS: ADM IN : 1950 PHYSICIAN: BERNARDO HYMAN MD ADMIT DATE: 10/26/17/ Signed Date of Exam: 10/26/17 CHEST 1 VIEW, AP/PA ONLY INDICATION: Elevated temperature and shortness of air. Time of exam: 11:00 a.m. Correlation is made with prior study from 05/12/2017. The heart size is stable. There are old rib fractures on the left, unchanged. No acute infiltrate is seen. The pulmonary vascularity is normal. No effusion or pneumothorax is detected. IMPRESSION: Stable chest. No acute cardiopulmonary process is detected. Dictated by: Dictated on workstation # [id number] Dict: 10/26/17 1115 Trans: 10/26/17 1413 Interpreted by: АЛЕКСАНДР WATERS MD Electronically signed by: АЛЕКСАНДР WATERS MD 10/26/17 1419 Assessment/Plan Assessment/Plan Assessment & Plan 1. Sepsisdue to elevated lactic acid as well as fever and tachycardia -most likely related to pulmonary since he has had a cough. Urine results are not on the chart -Patient to be initiated on Zosyn -Urine analysis -Recheck chest x-ray in the morning along with CBC and comprehensive metabolic panel 10/27: Labs unchanged, seems to be improving on antibiotics, Will continue IV at this time and switch to PO in AM 2. Dehydration -IV fluid rehydration and this was initiated in the ED 3. Hyperglycemia with history of diabetes mellitus -Sliding-scale insulin -Eventual return to his home medications for diabetes treatment 10/27: A1c pending 4. History of hepatic failurecurrently stable liver function tests -Monitor 5. Normocytic Anemia likely 2/2 chronic dz - Will continue to monitor, no signs of acute bleeding at this time 6. HTN - Restart home meds 7. Frequent falling - Will have PT come and see patient, uses walker and wheel chair at baseline 8. Hyperkalemia: Resolved 9. Lactic Acidosis: Resolved 10. Hypothyroidism - TSH pending 11. CAD s/p stenting - Continue home meds 12. HLD - Continue statin 13: DVT PPX: Lovenox Dispo: Will d/c back to NH when ready for D.c Clinical Quality Measures DVT/VTE Risk/Contraindication: Risk Factor Score Per Nursin RFS Level Per Nursing on Admit: 4+=Very High MIKAEL ROSE MD Oct 27, 2017 20:37
[2017-10-27] MEDS: cloNIDine 0.2 MG (CATAPRES) TAB PO SCH (20:50)
[2017-10-27] MEDS: NICOTINE 21 MG (NICODERM) PATCH TD SCH (20:50)
[2017-10-27] MEDS: meTOprolol TARTRATE 25 MG (LOPRESSOR) TABLET PO SCH (20:50)
[2017-10-27] MEDS: DIVALPROX SPRINKLE 125 MG (DEPAKOTE) CAP PO SCH (20:51)
[2017-10-27] MEDS: LEVETIRACETAM 500 MG (KEPPRA) TAB PO SCH (20:54)
[2017-10-27] MEDS ORDERED: MELATONIN 3 MG TABLET PO SCH (21:00)
[2017-10-27] MEDS ORDERED: SIMvastatin 10 MG (ZOCOR) TAB PO SCH (21:00)
[2017-10-27] MEDS ORDERED: DONEPEZIL 10 MG (ARICEPT) TAB PO SCH (21:00)
[2017-10-28 00:36] VITALS: BP 142/77
[2017-10-28] MEDS: NS IV 1000 ML 1,000 ML IV SCH ×3 (05:24→11:16)
[2017-10-28] MEDS: PIPERACILLIN/TAZO 3.375 GM/D5W 100 ML IV SCH ×4 (05:25→10:15)
[2017-10-28] MEDS: inSUlin ASPART (NovoLOG) 1 UNIT/0.01 ML (CHARGE PER UNIT) SC SCH ×2 (06:20→11:22)
[2017-10-28 06:21] LABS: BASOPHILS % (AUTO) 0 % (0-10); EOSINOPHILS # (AUTO) 0.2 10^3/uL (0.0-0.3); EOSINOPHILS % (AUTO) 3 % (0-10); HEMATOCRIT 30 % (40-54); HEMOGLOBIN 10.2 G/DL (13.3-17.7); LYMPHOCYTES # (AUTO) 1.7 X 10^3 (1.0-4.0); LYMPHOCYTES % (AUTO) 21 % (12-44); MEAN CORPUSCULAR HEMOGLOBIN 32 PG (25-34); MEAN CORPUSCULAR HGB CONC 34 G/DL (32-36); MEAN CORPUSCULAR VOLUME 93 FL (80-99); MONOCYTES # (AUTO) 0.9 X 10^3 (0.0-1.0); MONOCYTES % (AUTO) 10 % (0-12); NEUTROPHILS # (AUTO) 5.4 X 10^3 (1.8-7.8); NEUTROPHILS % (AUTO) 66 % (42-75); PLATELET COUNT 133 10^3/uL (130-400); RED CELL DISTRIBUTION WIDTH 13.1 % (10.0-14.5); WHITE BLOOD COUNT 8.2 10^3/uL (4.3-11.0)
[2017-10-28] MEDS ORDERED: LEVOTHYROXINE 100 MCG (LEVOTHROID) TAB PO SCH (06:30)
[2017-10-28] MEDS ORDERED: LEVOTHYROXINE 75 MCG (LEVOTHROID) TABLET PO SCH (06:30)
[2017-10-28 06:39] LABS: BUN/CREATININE RATIO 9; CARBON DIOXIDE 23 MMOL/L (21-32); CHLORIDE 107 MMOL/L (98-107); CREATININE SERUM 0.76 MG/DL (0.60-1.30); GFR ESTIMATED > 60; GLUCOSE 119 MG/DL (70-105); POTASSIUM 3.9 MMOL/L (3.6-5.0); SODIUM 136 MMOL/L (135-145)
[2017-10-28 08:00] VITALS: BP 160/85
[2017-10-28] MEDS: cloNIDine 0.2 MG (CATAPRES) TAB PO SCH (08:02)
[2017-10-28] MEDS: NICOTINE 21 MG (NICODERM) PATCH TD SCH (08:02)
[2017-10-28] MEDS: DIVALPROX SPRINKLE 125 MG (DEPAKOTE) CAP PO SCH ×2 (08:03→12:52)
[2017-10-28] MEDS: meTOprolol TARTRATE 25 MG (LOPRESSOR) TABLET PO SCH (08:03)
[2017-10-28] MEDS: LEVETIRACETAM 500 MG (KEPPRA) TAB PO SCH (08:10)
[2017-10-28] MEDS ORDERED: ASPIRIN E.C. 81 MG (ECOTRIN) TAB PO SCH (09:00)
[2017-10-28] MEDS ORDERED: NICOTINE PATCH REMOVAL TP SCH (09:00)
[2017-10-28] MEDS ORDERED: clonazePAM 0.5 MG (KlonoPIN) TAB PO SCH (09:00)
[2017-10-28] MEDS ORDERED: CLOPIDOGREL 75 MG (PLAVIX) TABLET PO SCH (09:00)
[2017-10-28] MEDS ORDERED: ENALAPRIL 2.5 MG (VASOTEC) TAB PO SCH (09:00)
--- NOTE | 2017-10-28 09:52 | Physical Therapy Evaluation ---
PT Evaluation-General Medical Diagnosis Admission Date Oct 26, 2017 at 11:53 Medical Diagnosis: fall, fever Onset Date: Oct 26, 2017 Therapy Diagnosis Therapy Diagnosis: debility/weakness Height/Weight Height (Feet): 6 Height (Inches): 0.00 Weight (Pounds): 181 Weight (Ounces): 7.0 Precautions Precautions/Isolations: Fall Prevention, Standard Precautions Weight Bear Status Right Lower Extremity: Right Weight Bearing/Tolerated Left Lower Extremity: Left Weight Bearing/Tolerated Referral Physician: [place] Reason for Referral: Evaluation/Treatment Medical History Pertinent Medical History: CAD, COPD, DM, Dementia, HTN, Hypothroidism, Neuropathy, PVD Additional Medical History seizure disorder Current History EMS to [place] secondary to fever, weakness and fall Reviewed History: Yes Social History Home: Fdc Prior/[facility] Prior Level of Function Functional [place] Measure 0=Not Assessed/NA 4=Minimal Assistance 1=Total Assistance 5=Supervision or Setup 2=Maximal Assistance 6=Modified [place] 3=Moderate Assistance 7=Complete [place] Bed Mobility: 5 Transfers (B,C,W/C) (FIM): 5 Gait: 5 FWW or W/C at [place] for mobility PT Evaluation-Current Subjective Patient is very pleasant and agrees to PT. Pain Numeric Pain Scale: 0-No Pain Location: No Pain Reported Objective Patient Orientation: Confused Problem Solving: Fair Attachments: IV ROM/Strength ROM Lower Extremities bilateral LE WNL Strength Lower Extremities 4-/5 grossly bilaterally Integumentary/Posture Integumentary refer to nursing notes Bowel Incontinence: No Bladder Incontinence: No Posture WFL Neuromuscular (Tone, Coordination, Reflexes) diminished proprioception/coordination Sensory Vision: Functional Hearing: Functional Sensation Right Lower Extremit: Impaired Sensation Left Lower Extremity: Impaired Transfers Functional [place] Measure 0=Not Assessed/NA 4=Minimal Assistance 1=Total Assistance 5=Supervision or Setup 2=Maximal Assistance 6=Modified [place] 3=Moderate Assistance 7=Complete [place] Transfers (B, C, W/C) (FIM): 5 Scootin Rollin Supine to/from Sit: 5 Sit to/from Stand: 5 Gait Mode of Locomotion: Walk Anticipated Mode of Locomotion: Walk Gait (FIM): 4 Distance (FIM): 3=150 ft Distance: 375' Gait Level of Assist: 4 Gait Persons Needed: 1 Gait Assistive Device: FWW Comments/Gait Description CGA for safety due to NBOS and shuffle gait sequence Balance Sitting Static: Normal Sitting Dynamic: Normal Standing Static: Fair Standing Dynamic: Fair Assessment/Needs 67 y.o. male, will benefit from short term skilled PT to address functional mobility to ensure safe return to NH for continued care. Patient demonstrates NBOS with mobility which increases fall risk. Patient returned to bed with needs met and RN in room. Rehab Potential: Fair PT Retirement Goals Test Car Driver Goals PT Retirement Goals Time Frame: Nov 05, 2017 Transfers (B,C,W/C) (FIM): 6 Gait (FIM): 5 Gait distance (FIM): 3=150 ft Gait Level of Assist: 5 Gait Assistive Device: FWW PT Plan Problem List Problem List: Activity Tolerance, Safety, Balance, Gait Treatment/Plan Treatment Plan: Continue Plan of Care Treatment Plan: Education, Functional Activity [place], Functional Strength, Gait , Safety, Therapeutic Exercise, Transfers Treatment Duration: Nov 05, 2017 Frequency: 6 times per week Estimated Hrs Per Day: .25 hour per day Patient and/or Family Agrees t: Yes Safety Risks/Education Patient Education: Safety Issues Teaching Recipient: Patient Teaching Methods: Discussion Response to Teaching: Verbalize Understanding Discharge Recommendations Therapy D/C Recommendations: Fdc Placement, Retirement (TCU/NH) Time/GCodes Time In: 909 Time Out: 924 Total Billed Treatment Time: 15 Total Billed Treatment 1 visit EVModC 15 min G Codes Necessary: FLORENCE Zurita PT Oct 28, 2017 09:52
--- NOTE | 2017-10-28 10:29 | Discharge Summary ---
Diagnosis/Chief Complaint Date of Admission Oct 26, 2017 at 11:53 Date of Discharge 10/28/2017 Admission Diagnosis Admission Diagnosis Suspected Sepsis Dehydration IDDM with hyperglycemia Normocytic anemia HTN Frequent falling Hypothyroidism CAD HLD Discharge Diagnosis See Above Chief Complaint/HPI Chief Complaint/HPI 67-year-old male presents to [facility] emergency department, via EMS, after a one-week history of fever and overall weakness. Apparently the patient took a fall this morning and no obvious injury was reported. Patient was brought to the emergency department due to the persistent fever as well as his overall weakness. In the emergency department he denied any headaches, nausea or vomiting. He denied any dysuria or urinary frequency. Apparently he has had a cough. Patient is a known diabetic and does see Dr. [facility] at [facility]. He apparently also has a history of hepatic failure. Discharge Summary-Simple/Stand Consultations Discharge Physical Examination Allergies: Coded Allergies: acetaminophen (Verified Allergy, Intermediate, 10/26/17) Vitals & I&Os Vital Sign - Last 12Hours Date Time Temp Pulse Resp B/P (MAP) Pulse Ox O2 Delivery O2 Flow Rate FiO2 10/28/17 09:00 Room Air 10/28/17 08:00 98.4 72 20 160/85 (110) 93 2.00 10/26/17 10:40 96 Intake and Output 10/28/17 00:00 Intake Total 2400 ml Output Total 650 ml Balance 1750 ml General Appearance: Alert, Oriented X3, Cooperative, No Acute Distress Respiratory: Clear to Auscultation, Normal Air Movement Cardiovascular: Regular Rate, No Murmurs Abdominal: Normal Bowel Sounds, Soft, No Tenderness, No Masses Extremities: No Edema, No Tenderness/Swelling Neuro: Normal Speech, Strength at 5/5 X4 Ext, Cranial Nerves 3-12 NL Psych/Mental Status: Mental Status NL, Mood NL Hospital Course See final discharge diagnosis. Radiology Reviewed NAME: JOLLY MANZANARES [facility] REC#: [id number] PT STATUS: ADM IN : 1950 PHYSICIAN: BERNARDO HYMAN MD ADMIT DATE: 10/26/17/ Signed Date of Exam: 10/26/17 CHEST 1 VIEW, AP/PA ONLY INDICATION: Elevated temperature and shortness of air. Time of exam: 11:00 a.m. Correlation is made with prior study from 05/12/2017. The heart size is stable. There are old rib fractures on the left, unchanged. No acute infiltrate is seen. The pulmonary vascularity is normal. No effusion or pneumothorax is detected. IMPRESSION: Stable chest. No acute cardiopulmonary process is detected. Dictated by: Dictated on workstation # [id number] Dict: 10/26/17 1115 Trans: 10/26/17 1419 Interpreted by: АЛЕКСАНДР WATERS MD Electronically signed by: АЛЕКСАНДР WATERS MD 10/26/17 1419 Discussion & Recommendations 67 yo M from [place] that presented with 1 week of fatigue and started on treatment for suspected sepsis 2/2 PNA vs UTI Suspected Sepsis: Patient did not meet criteria of severe sepsis. He was started on IV antibiotics and IVFs. Hemodynamically stable throughout admission. Sent home to complete PO antibiotics. Dehydration: See Above IDDM with hyperglycemia: Patient does not take insulin at baseline but requires it. A1c pending. Home PO meds restarted. Normocytic anemia: Stable and at patients baseline. No signs of acute bleeding. HTN: Home meds restarted Frequent falling: PT evaluated and patient needs to use walker at baseline. Hypothyroidism: Home meds restarted CAD: Home meds restarted HLD: Home meds restarted Dispo: Patient was d/c back to [facility] and will be seen by Parul Pickens Discharge Condition at discharge Stable Instructions to patient/family Please see electronic discharge instructions given to patient. Discharge Medications Reviewed and agree with Discharge Medication list on patient's Discharge Instruction sheet Clinical Quality Measures DVT/VTE Risk/Contraindication: Risk Factor Score Per Nursin RFS Level Per Nursing on Admit: 4+=Very High Copy Copies To 1: Parul ROSSI HOLLY R MD Oct 28, 2017 10:29
[2017-10-28] MEDS ORDERED: CEFD300C3 PO (10:38)
--- NOTE | 2017-10-28 10:45 | Discharge Inst-Skilled Nursing ---
Discharge Inst-Skilled NF Patient Instructions Patient Problems: Suspected Sepsis Dehydration IDDM with hyperglycemia Normocytic Anemia HTN Frequent falling Hypothyroidism CAD HLD Goal: - Improved ambulation - complete antiboitics Consult/Follow Up/Orders Skilled NF Admit to: [facility] Certifications SNF I certify that SNF services are required to be given on an inpatient basis because of the above named patient's need for [facility] care on a continuing basis for the conditions(s) for which he/she was receiving inpatient hospital services prior to his/her transfer to the SNF. Senior Living Facility Order: Diaper Machine Tender-Evaluate & Treat, Physical Therapy-Evaluate & Treat Discharge Diet: Cardiac Diet Daily Activity as Tolerated: Yes New & Resume Previous Orders New & Resume Previous Orders Resume prior orders Start New antibiotic, script in chart Discharge Medications New Medications: Cefdinir (Cefdinir) 300 Mg Capsule 300 MG PO BID for 5 Days, #10 CAP Continued Medications: Aspirin (Aspirin EC) 81 Mg Tablet.dr 81 MG PO DAILY, TAB Cholecalciferol (Vitamin D3) (Vitamin D3) 4,000 Unit Capsule 4000 UNIT PO DAILY, CAP Citalopram Hydrobromide (Citalopram HBr) 40 Mg Tablet 40 MG PO DAILY, TAB Clonazepam (Clonazepam) 0.5 Mg Tablet 0.5 MG PO EVERY AFTERNOON, TAB Clonidine HCl (Clonidine HCl) 0.2 Mg Tablet 0.2 MG PO BID, TAB Clopidogrel Bisulfate (Plavix) 75 Mg Tablet 75 MG PO DAILY, TAB Divalproex Sodium (Divalproex Sodium) 125 Mg Cap.sprink 250 MG PO QID, CAP TAKES 2 (125MG) CAPSULES Donepezil HCl (Aricept) 10 Mg Tablet 10 MG PO HS, TAB Enalapril Maleate (Enalapril Maleate) 2.5 Mg Tablet 2.5 MG PO DAILY, TAB HOLD FOR BP < 90/50 OR PULSE < 50 Glimepiride (Glimepiride) 4 Mg Tablet 4 MG PO DAILY Lactobacillus Acidophilus (Probiotic Acidophilus) 1 Each Tablet 1 TAB PO QID, TAB Levetiracetam (Levetiracetam) 500 Mg Tablet 500 MG PO BID, TAB Levothyroxine Sodium (Levothyroxine Sodium) 175 Mcg Tablet 175 MCG PO DAILY, TAB Mag Hydrox/Al Hydrox/Simeth (Mylanta Suspension) 30 Ml Oral.susp 30 ML PO Q4H PRN for INDIGESTION, ML Melatonin (Melatonin) 3 Mg Tablet 3 MG PO HS, TAB Metformin HCl (Metformin HCl) 1,000 Mg Tablet 1000 MG PO BID, TAB Metoprolol Tartrate (Metoprolol Tartrate) 25 Mg Tablet 25 MG PO BID, TAB HOLD IF BP < 90/50 OR PULSE <50 Mirtazapine (Remeron) 15 Mg Tablet 15 MG PO HS, TAB Rivastigmine (Exelon) 9.5 Mg Patch 9.5 MG TD DAILY, PATCH Simvastatin (Simvastatin) 10 Mg Tablet 10 MG PO HS, TAB Discontinued Medications: Clonazepam (Clonazepam) 0.5 Mg Tablet 1 MG PO DAILY, TAB TAKES 2 (0.5MG) TABLETS Tramadol HCl (Tramadol HCl) 50 Mg Tablet 50 MG PO Q8H PRN for PAIN-MILD TO MODERATE, TAB Mikael Boyce Oct 28, 2017 10:40 MIKAEL BOYCE MD Oct 28, 2017 10:45
[2017-10-28 15:46] VITALS: BP 160/85
== END 2017-10-28 17:53 | DRG 872 ==
LOC: EDUNIT# 10:20 → ER 10:26 → 4TH 11:53
PROVIDERS: ADMIT Family Medicine; ATTEND Family Medicine
DX: A41.9 Sepsis, unspecified organism (principal); E86.0 Dehydration; E87.5 Hyperkalemia; E11.65 Type 2 diabetes mellitus with hyperglycemia; E11.40 Type 2 diabetes mellitus with diabetic neuropathy, unspecified; I25.10 Atherosclerotic heart disease of native coronary artery without angina pectoris; E78.5 Hyperlipidemia, unspecified; I10 Essential (primary) hypertension; E11.319 Type 2 diabetes mellitus with unspecified diabetic retinopathy without macular edema; J44.9 Chronic obstructive pulmonary disease, unspecified; I73.9 Peripheral vascular disease, unspecified; F03.90 Unspecified dementia, unspecified severity, without behavioral disturbance, psychotic disturbance, mood disturbance, and anxiety; G40.909 Epilepsy, unspecified, not intractable, without status epilepticus; K21.9 Gastro-esophageal reflux disease without esophagitis; E03.9 Hypothyroidism, unspecified; F41.9 Anxiety disorder, unspecified; F32.9 Major depressive disorder, single episode, unspecified; F17.210 Nicotine dependence, cigarettes, uncomplicated; D64.9 Anemia, unspecified; R29.6 Repeated falls; Z79.82 Long term (current) use of aspirin; Z79.4 Long term (current) use of insulin; Z95.5 Presence of coronary angioplasty implant and graft; Z86.73 Personal history of transient ischemic attack (TIA), and cerebral infarction without residual deficits
CPT/HCPCS: 36415; 71045; 71046; 76937; 80048; 80053; 81000; 82962; 83036; 83605; 85007; 85025; 85027; 85610; 85730; 87040; 96361; 96365; 96375

== ENCOUNTER → 2017-12-30 | Outpatient (CLI) | payer MEDICARE, MEDICAID ==
[~2017-12-30] MED LIST changes: +CEFD300C3 PO; +CHOL40003 PO; +GLIM4TAB PO; +LEVO175T5 PO; +METF-399 PO; -METF10002 PO
--- NOTE | 2017-12-30 12:22 | Diagnostic Imaging Report ---
EXAMINATION: Right foot at 10:45 a.m. INDICATION: Wound check right toe. FINDINGS: Three views were obtained. The previous right foot exam performed on 09/10/2013 noted gas in the soft tissues about the phalanges of the fourth digit. In the interval since the prior study, the patient has undergone an amputation of the phalanges. The head of the fourth metatarsal also appears to have been partially excised. The nuclear medicine bone scan of 04/21/2017 did suggest osteomyelitis of the distal great toe. On this exam, there is no clear evidence for bony destruction in this area to suggest osteomyelitis. There is fairly severe degenerative disease involving the interphalangeal joint of the great toe, however. There is soft tissue edema about the distal phalanx of the second digit. The lateral view also indicates that the distal phalanx is subluxed dorsally with respect to the middle phalanx. There is no fracture identified; however, the distal phalanx does seem somewhat more lucent than on the prior exam and there could be involvement of the distal phalanx by osteomyelitis. If further imaging is desired, then MRI will be recommended. There is no other sign of bony destruction to suggest osteomyelitis. IMPRESSION: 1. The distal phalanx of the second digit is subluxed dorsally with respect to the middle phalanx. The distal phalanx also seems more lucent than expected and this appearance is worrisome for osteomyelitis. Recommendations as above. 2. There is no acute or subacute bony abnormality noted otherwise. 3. 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 Dictated by: Dictated on workstation # [id number]
== END ==
LOC: RAD 10:13
PROVIDERS: ATTEND Nurse Practitioner
DX: E11.621 Type 2 diabetes mellitus with foot ulcer (principal); L97.512 Non-pressure chronic ulcer of other part of right foot with fat layer exposed; I87.2 Venous insufficiency (chronic) (peripheral); S93.101A Unspecified subluxation of right toe(s), initial encounter; Z89.421 Acquired absence of other right toe(s)
CPT/HCPCS: 73630

== ENCOUNTER → 2017-12-30 | Outpatient (CLI) | payer MEDICARE, MEDICAID | LOC: WOUNDCARE 08:20 | PROVIDERS: ATTEND Nurse Practitioner | DX: E11.621 Type 2 diabetes mellitus with foot ulcer (principal); L97.512 Non-pressure chronic ulcer of other part of right foot with fat layer exposed; I87.2 Venous insufficiency (chronic) (peripheral) | CPT/HCPCS: 99214 ==

== ENCOUNTER → 2018-01-06 | Outpatient (CLI) | payer MEDICARE, MEDICAID | LOC: WOUNDCARE 08:16 | PROVIDERS: ATTEND Nurse Practitioner | DX: E11.621 Type 2 diabetes mellitus with foot ulcer (principal); L97.512 Non-pressure chronic ulcer of other part of right foot with fat layer exposed; I87.2 Venous insufficiency (chronic) (peripheral) | CPT/HCPCS: 99212 ==

== ENCOUNTER → 2018-01-08 | Outpatient (CLI) | payer MEDICARE, MEDICAID ==
--- NOTE | 2018-01-08 10:43 | Diagnostic Imaging Report ---
PROCEDURE: MRI right lower extremity without contrast. TECHNIQUE: Multiplanar, multisequence non contrast-enhanced MRI of the right lower extremity was accomplished. INDICATION: Open wound right second toe. There are no previous MRI examinations available for comparison. The plain film examination of the right foot performed on 12/30/2017 did raise the question of osteomyelitis of the distal phalanx of the second digit. On the T1 sagittal series of this exam there is diminished signal within both the distal phalanx and the middle phalanx of the second digit. This appearance does suggest osteomyelitis. There is also soft tissue edema in this area and by history patient has an open wound along the anterior aspect of the second digit. There is no abnormal signal arising from the proximal phalanx to indicate osteomyelitis. No other acute bony abnormality is appreciated. 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 There is no sign of a soft tissue mass or abscess. IMPRESSION: 1. The findings do indicate osteomyelitis of the distal and middle phalanges of the second digit. There is also soft tissue edema and an open wound along the anterior aspect of the second toe. 2. There is no acute bony abnormality noted otherwise and there is no sign of a soft tissue abscess. Dictated by: Dictated on workstation # [id number]
== END ==
LOC: RAD 08:03
PROVIDERS: ATTEND Nurse Practitioner
DX: E11.621 Type 2 diabetes mellitus with foot ulcer (principal); L97.512 Non-pressure chronic ulcer of other part of right foot with fat layer exposed; I87.2 Venous insufficiency (chronic) (peripheral); R60.0 Localized edema; S91.104A Unspecified open wound of right lesser toe(s) without damage to nail, initial encounter

== ENCOUNTER → 2018-01-20 | Outpatient (CLI) | payer MEDICARE, MEDICAID ==
[~2018-01-20] MED LIST changes: +IOHEXOL 350 MG/ML 150 ML (OMNIPAQUE 350) VIAL IV ONE; +NS 250 ML (IVPB) BAG IV ONE
[2018-01-20 09:47] LABS: CREATININE SERUM 0.79 MG/DL (0.60-1.30); GFR ESTIMATED > 60
--- NOTE | 2018-01-20 12:00 | Diagnostic Imaging Report ---
INDICATION: Pain and swelling. Osteomyelitis. COMPARISON: Comparison made to prior examination 12/30/2017. FINDINGS: Note is again made of previous resection of the fourth toe. There is persistent slight lucency to the distal phalanx of the second and third toes suspect for sequelae of osteomyelitis. No fracture or dislocation. Soft tissues are unremarkable. IMPRESSION: Persistent slight lucency of the distal phalanx of the second and third toes suspect for sequelae of osteomyelitis. Recommend clinical correlation. Dictated by: Dictated on workstation # [id number]
== END ==
LOC: RAD 09:12
PROVIDERS: ATTEND Nurse Practitioner
DX: I73.9 Peripheral vascular disease, unspecified (principal); M86.9 Osteomyelitis, unspecified
CPT/HCPCS: 36415; 73630; 82565

== ENCOUNTER → 2018-01-20 | Outpatient (CLI) | payer MEDICARE, MEDICAID ==
[~2018-01-20] MED LIST changes: -IOHEXOL 350 MG/ML 150 ML (OMNIPAQUE 350) VIAL IV ONE; -NS 250 ML (IVPB) BAG IV ONE
== END ==
LOC: WOUNDCARE 08:14
PROVIDERS: ATTEND Nurse Practitioner
DX: E11.621 Type 2 diabetes mellitus with foot ulcer (principal); L97.512 Non-pressure chronic ulcer of other part of right foot with fat layer exposed; I87.2 Venous insufficiency (chronic) (peripheral)
CPT/HCPCS: 99212

== ENCOUNTER → 2018-02-03 | Outpatient (CLI) | payer MEDICARE, MEDICAID | LOC: WOUNDCARE 08:28 | PROVIDERS: ATTEND Nurse Practitioner | DX: E11.621 Type 2 diabetes mellitus with foot ulcer (principal); L97.512 Non-pressure chronic ulcer of other part of right foot with fat layer exposed; I87.2 Venous insufficiency (chronic) (peripheral) | CPT/HCPCS: 11042; 87070; 87075; 87077; 87205 ==

== ENCOUNTER → 2018-02-10 | Outpatient (CLI) | payer MEDICARE, MEDICAID ==
[~2018-02-10] MED LIST changes: +CITA20TA9 PO; +IBUP-30 PO; +ICOS1CAP PO; +INSU100I32 SQ; +MAGN400O7 PO
== END ==
LOC: WOUNDCARE 08:09
PROVIDERS: ATTEND Nurse Practitioner
DX: E11.621 Type 2 diabetes mellitus with foot ulcer (principal); L97.512 Non-pressure chronic ulcer of other part of right foot with fat layer exposed; I87.2 Venous insufficiency (chronic) (peripheral)
CPT/HCPCS: 99213

== ENCOUNTER → 2018-02-17 | Outpatient (CLI) | payer MEDICARE, MEDICAID ==
[~2018-02-17] MED LIST changes: -CITA20TA9 PO; -IBUP-30 PO; -ICOS1CAP PO; -INSU100I32 SQ; -MAGN400O7 PO
== END ==
LOC: WOUNDCARE 08:25
PROVIDERS: ATTEND Nurse Practitioner
DX: E11.621 Type 2 diabetes mellitus with foot ulcer (principal); L97.514 Non-pressure chronic ulcer of other part of right foot with necrosis of bone; I87.2 Venous insufficiency (chronic) (peripheral)
CPT/HCPCS: 11042

== ENCOUNTER 2018-02-25 07:28 | Day surgery (SDC) | payer MEDICARE, MEDICAID ==
[2018-02-25] VITALS (12 sets, daily range): BP systolic 132–204; BP diastolic 76–112
[~2018-02-25] VITALS: Ht 177.8 cm; Wt 81.6 kg
--- OUTSIDE RECORDS SUMMARY | 2018-02-25 07:38 | XMS REPORT ---
Author Author JOLLY DELANEY [facility] Address [address] [place] [address] Care Team Providers Care Bureau Director Name Role Phone JOLLY DELANEY Unavailable PROBLEMS Type Condition ICD9-CM Code PQS72-MP Code Onset Dates Condition Status SNOMED Code Problem Hyperlipidemia, unspecified hyperlipidemia type E78.5 Active 69432539 Problem Long-term insulin use Z79.4 Active 276792977 Problem Abnormal carotid ultrasound R93.8 Active 849842960 Problem Type 2 diabetes mellitus with complication E11.8 Active 13407052 Problem Positive TB test R76.11 Active 837890248 Problem Vascular dementia with behavior disturbance F01.51 Active 411619924 Problem PVD (peripheral vascular disease) I73.9 Active 703136837 Problem Pain R52 Active 03880650 Problem Other chronic osteomyelitis of left foot M86.672 Active 686098661 Problem Nicotine dependence, unspecified, uncomplicated F17.200 Active 756981284 Problem Peripheral vascular disease due to secondary diabetes E13.51 Active 4405090 Problem Nonintractable epilepsy without status epilepticus, unspecified epilepsy type G40.909 Active 067424229 Problem Recurrent major depressive disorder, remission status unspecified F33.9 Active 92857841 Problem Anxiety F41.9 Active 52055628 Problem Generalized anxiety disorder F41.1 Active 55224305 Problem Vascular dementia F01.50 Active 760473147 Problem Pseudobulbar affect F48.2 Active 00976182 Problem Coronary artery disease involving atka coronary artery of atka heart without angina pectoris I25.10 Active 6315133657096 Problem Gastroesophageal reflux disease without esophagitis K21.9 Active 441649756 Problem Cerebrovascular accident (CVA) due to other mechanism I63.8 Active 087501159 Problem Pulmonary emphysema, unspecified emphysema type J43.9 Active 43034084 Problem Neuropathy G62.9 Active 159141526 Problem Depression F32.9 Active 23013304 Problem Essential hypertension I10 Active 29653346 Problem Acquired hypothyroidism E03.9 Active 958956511 ALLERGIES No Information ENCOUNTERS Encounter Location Date Diagnosis [facility] [address] [place] [id number] Dec, Crush injury T14.8XXA [facility] [address], [place] [address] 14 Dec, 2017 Generalized anxiety disorder F41.1 [facility] [id number] [place] [address] 46436- 8373 Dec, [facility] [id number] [place] [address] 64736- 7055 Dec, [facility] [id number] [place] [address] 31198- 0417 Nov, Generalized anxiety disorder F41.1 [facility] [id number] [place] [address] 10861- 2244 Oct, Generalized anxiety disorder F41.1 [facility] [id number] [place] [address] 14315- 2150 Oct, Generalized anxiety disorder F41.1 [facility] [address] [place] [id number] Oct, Sepsis, due to unspecified organism A41.9 ; Generalized anxiety disorder F41.1 ; Pain R52 and Depression F32.9 [facility] [address], [place] [address] 7513 Oct, [facility] [id number] [place] [address] 20797- 8635 Oct, [facility] [id number] [place] [address] 01781- 6626 Sep, Generalized anxiety disorder F41.1 [facility] [id number] [place] [address] 99392- 4897 Sep, [facility] [id number] [place] [address] 18757- 1832 Sep, Type 2 diabetes mellitus with complication E11.8 [facility] [address] [address] [address]128 August, Generalized anxiety disorder F41.1 [facility] [address] [address] August, [facility] [address] [place] [id number] August, Type 2 diabetes mellitus with complication E11.8 ; Vascular dementia with behavior disturbance F01.51 ; Long-term insulin use Z79.4 and Nicotine dependence, unspecified, uncomplicated F17.200 [facility] [id number], [place] [address] 8534 August, Generalized anxiety disorder F41.1 [facility] [address] [address] 9336 Jul, Generalized anxiety disorder F41.1 [facility] [id number] [address] Jun, Generalized anxiety disorder F41.1 [facility] [id number] [address] Jun, [facility] [id number] [address] May, [facility] [id number] [address] 0354 May, [facility] [id number] [address] May, Generalized anxiety disorder F41.1 [facility] [id number] [address] 1346 Apr, [facility] [address] [id number] Apr, Other chronic osteomyelitis of left foot M86.672 ; Type 2 diabetes mellitus with complication E11.8 ; Vascular dementia F01.50 ; Long-term insulin use Z79.4 ; PVD (peripheral vascular disease) I73.9 and Nicotine abuse 305.1 [facility] [id number] [place] [address] 65808- 3102 Apr, [facility] [id number] [place] [address] [id number] Apr, [facility] [id number] [place] [address] 05870- 2809 Apr, Pain R52 and Generalized anxiety disorder F41.1 [facility] [address] [address]75- 7953 Mar, [facility] [id number] [place] [address] 84078- 3214 Mar, Pain R52 and Generalized anxiety disorder F41.1 [facility] [address] [place] [address] Feb, Depression F32.9 ; Type 2 diabetes mellitus with complication E11.8 and Nicotine dependence, unspecified, uncomplicated F17.200 [facility] [id number] [place] [address] 80046- 2899 Feb, Generalized anxiety disorder F41.1 and Pain R52 [facility] [id number] [place] [address] 70296- 8536 Feb, [facility] [id number] [place] [address] 72869- 8929 Jan, [facility] [id number] [place] [address] 14579- 9847 Jan, Generalized anxiety disorder F41.1 and Pain R52 [facility] [id number] [place] [address] 44884- 7299 Jan, [facility] [id number] [place] [id number] Dec, Generalized anxiety disorder F41.1 and Pain R52 [facility] [address] [place] [address] Dec, Vascular dementia F01.50 ; Pain of left leg M79.605 ; Pain in right leg M79.604 and Type 2 diabetes mellitus with complication E11.8 [facility] [address], [place] [address] 1123 11 Dec, 2016 Pain R52 [facility] [id number] [place] [address] 62187- 7023 Dec, [facility] [id number] [place] [address] 36935- 0073 Nov, [facility] [id number] [place] [address] 61194- 2573 Nov, Pain R52 and Generalized anxiety disorder F41.1 [facility] [address] [place] [id number] Nov, Depression F32.9 ; Vascular dementia with behavior disturbance F01.51 and Anxiety F41.9 [facility] [id number] [place] [address] 54783- 4961 Nov, Pain R52 and Generalized anxiety disorder F41.1 [facility] [id number] [place] [address] 63816- 4534 Oct, Generalized anxiety disorder F41.1 [facility] [id number] [place] [address] 59022- 1224 Oct, Pain R52 [facility] [id number] [place] [address] 55662- 1704 Sep, [facility] [address] [place] [id number] Sep, Generalized anxiety disorder F41.1 [facility] [address], [place] [address]- 1146 Sep, Pain R52 [facility] [id number] [place] [address] 26754- 3072 Sep, Generalized anxiety disorder F41.1 [facility] [address], [place] [address]- 4763 August, [facility] [id number] [place] [address] 80544- 0780 August, [facility] [address], [place] [address]- 4611 August, Pain R52 [facility] [address], [place] [address]- 4276 August, Generalized anxiety disorder F41.1 [facility] [id number] [address] August, Generalized anxiety disorder F41.1 [facility] [address], [place] [address]- 3307 Jul, Pain R52 [facility] [id number] [place] [address] 25760- 9476 Jul, [facility] [id number] [place] [address] [id number] Jul, [facility] [id number] [place] [address] 26936- 1472 Jun, [facility] [id number] [place] [address] [id number] Jun, Depression F32.9 [facility] [id number] [place] [address] 12643- 8815 Jun, Pain R52 [facility] [address], [place] [address]- 0266 Jun, [facility] [address] [place] [address] Jun, Vascular dementia F01.50 and Depression F32.9 [facility] [id number], [place] [address]- 2103 May, Pain R52 [facility] [address], [place] [address]- 1086 May, [facility] [address], [place] [address]- 9842 May, Pseudobulbar affect F48.2 [facility] [address], [place] [address]- 0598 May, [facility] [id number] [place] [address] 26915- 2440 May, PVD (peripheral vascular disease) I73.9 [facility] [id number] [place] [address] 67477- 9176 May, Vascular dementia with behavior disturbance F01.51 [facility] [id number] [place] [address] 32491- 6740 May, Vascular dementia with behavior disturbance F01.51 [facility] [id number] [place] [address] 71801- 0794 Apr, [facility] [id number] [place] [address] 83553- 5008 Apr, Pain 2 [facility] [address] [place] [place] [id number] Apr, Generalized anxiety disorder F41.1 ; PVD (peripheral vascular disease) I73.9 and Type 2 diabetes mellitus with complication E11.8 [facility] [id number] [place] [address] 04627- 0594 Apr, Vascular dementia with behavior disturbance F01.51 [facility] [id number] [place] [address] 08222- 4401 Apr, [facility] [id number] [place] [address] 87738- 9600 Apr, Vascular dementia with behavior disturbance F01.51 [facility] [address], [place] [address]- 5595 Apr, [facility] [id number] [place] [address] [id number] Mar, [facility] [address] [address]- 5971 Mar, Type 2 diabetes mellitus with complication E11.8 ; Vascular dementia with behavior disturbance F01.51 and Depression F32.9 [facility] [address] [place] [address] 89905- 0201 Mar, [facility] [id number] [place] [address] 25648- 6673 Feb, [facility] [id number] [place] [address] 48108- 7965 Feb, Viral illness B34.9 [facility] [id number] [place] [address] 58209- 5609 Jan, Diabetes 250.00 [facility] [address] 99540- 8586 Jan, [facility] [id number] [place] [address] 26227- 5896 Jan, [facility] [id number] [place] [address] 82686- 5069 Jan, [facility] [address] [id number] Jan, Vascular dementia with behavior disturbance F01.51 and Type 2 diabetes mellitus with complication E11.8 [facility] [id number] [place] [address] 72535- 5502 Jan, Pain R52 [facility] [id number] [place] [address] 96243- 0677 Jan, Pain R52 [facility] [id number] [place] [address] 83342- 9517 Dec, [facility] [id number] [place] [address] 84455- 9928 Nov, [facility] [address] [id number] Nov, Type 2 diabetes mellitus with complication E11.8 [facility] [id number] [place] [address] 73361- 9593 Nov, [facility] [id number] [place] [address] 59941- 5298 Oct, [facility] [address], [place] [address]- 3161 Oct, [facility] [id number] [place] [address] 06269- 5022 Oct, Vascular dementia with behavior disturbance F01.51 and Type 2 diabetes mellitus with complication E11.8 [facility] [address] [place] [address] 47482- 0063 August, Type 2 diabetes mellitus with complication E11.8 and Vascular dementia with behavior disturbance F01.51 [facility] [id number] [place] [address] 64209- 7743 August, Vascular dementia F01.50 [facility] [address] [place] [address] 56965- 3267 August, Vascular dementia with behavior disturbance F01.51 [facility] [address] [place] [address] 29635- 3499 Jul, Vascular dementia with behavior disturbance F01.51 [facility] [address] [place] [address] 61570- 1808 Jun, Vascular dementia F01.50 [facility] [address], [place] [address]- 1454 Jun, Type 2 diabetes mellitus with complication E11.8 ; Long- term insulin use Z79.4 and Vascular dementia with behavior disturbance F01.51 [facility] [address], [place] [address]- 0188 Jun, Vascular dementia with behavior disturbance F01.51 [facility] [address], [place] [address]- 3861 Jun, Vascular dementia F01.50 [facility] [address], [place] [address]- 2864 Apr, [facility] [id number] [place] [address] 07811- 8470 Apr, [facility] [address], [place] [address]- 4972 Apr, [facility] [address] [place] [address] 48717- 4696 Apr, Type 2 diabetes mellitus with complication E11.8 ; Depression F32.9 and Long-term insulin use Z79.4 [facility] [address] [place] [address] 96895- 5136 Mar, [facility] [address] [place] [id number] Mar, Depression F32.9 ; Type 2 diabetes mellitus with complication E11.8 and Long-term insulin use Z79.4 [facility] [address], [place] [address]- 6069 Feb, [facility] [id number] [place] [address] 07993- 9670 Feb, Hyperthyroidism E05.90 [facility] [address], [place] [address]- 1390 Feb, Hyperthyroidism E05.90 [facility] [address] [place] [address] 52669- 5487 Feb, [facility] [address], [place] [address]- 2526 Jan, [facility] [address], [place] [address]- 7060 Dec, Nicotine addiction 305.1 [facility] [address]- 6849 Oct, Nicotine abuse 305.1 [facility] [id number] [place] [address] 592425- 8609 Oct, [facility] [id number], [place] [address]- 1200 August, [facility] [address] [place] [id number] August, History of drug abuse 305.93 and Diabetes 250.00 [facility] [address] [place] [address]- 5567 14 Jul, 2014 [facility] [address] [facility] [id number] [place] [address]- 6511 13 Jul, 2014 [facility] [address] [facility] [id number] [address]- 7899 Jun, [facility] [address] [facility] [id number], [place] [address]- 7898 Jun, [facility] [address], [place] [address]- 1392 Jun, [facility] [address], [place] [address]- 9008 Jun, [facility] [address], [place] [address]- 5175 Jun, [facility] [id number], [place] [address]- 7207 Jun, [facility] [address], [place] [address]- 2677 May, [facility] [address], [place] [address]- 0751 May, [facility] [address], [place] [address]- 5283 May, [facility] [id number]- 9495 May, [facility] [address], [place] [address]- 4750 May, [facility] [address]- 8110 Apr, [facility] [address], [place] [address]- 3413 Apr, [facility] [address] [facility] [id number] Apr, [facility] [address] [id number] [place] [address]- 0369 Apr, [facility] [address] [id number] [place] [address]- 0900 Apr, [facility] [address] [id number] [place] [address]- 1390 Apr, [facility] [address] [id number] [place] [address]- 5666 Apr, [facility] [address] [id number] [place] [address]- 3693 Apr, [facility] [address] [id number] [place] [address]- 0528 Mar, [facility] [address] [id number] [place] [address]- 4384 Mar, [facility] [place] [facility] [address] [id number] [place] [address]- 5269 Mar, [facility] [address] [id number] [place] [address]- 5253 Mar, [facility] [place] [facility] [address] [id number] [place] [address]- 8931 Mar, [facility] [place] [facility] [address] [id number], [place] [address]- 0262 Mar, [facility] [place] [facility] [address] [id number] [place] [address]- 2464 Mar, [facility] [place] [facility] [address] [id number] [place] [address]- 5090 Mar, [facility] [place] [facility] [address] [id number] [place] [address]- 4418 Feb, [facility] [place] [facility] [address] [id number] [place] [address]- 8622 Feb, [facility] [place] [facility] [address] [id number] [place] [address]- 3173 Feb, [facility] [place] [facility] [address] [id number] [place] [address]- 6429 Feb, [facility] [place] [facility] [address] [id number] [place] [address]- 0595 Feb, [facility] [address] [id number] Feb, [facility] [place] [facility] [address] [id number] [place] [address]- 4587 Feb, [facility] [place] [facility] [address] [id number] [place] [address]- 7824 Feb, [facility] [place] [facility] [address] [id number] [place] [address]- 0689 Feb, [facility] [place] [facility] [address] [id number] [place] [address]- 8476 Feb, [facility] [place] [facility] [address] [id number] [place] [address]- 4499 Jan, [facility] [place] [facility] [address] [id number] [place] [address]- 2403 30 Jan, 2014 [facility] [place] [facility] [address] [id number] [place] [address] Jan, [facility] [place] [facility] [address] [id number] [place] [address] 17 Jan, 2014 [facility] [place] [facility] [address] [id number] [place] [address] 16 Jan, 2014 [facility] [place] [facility] [address] [id number] [place] [address] 16 Jan, 2014 [facility] [place] [facility] [address] [id number] [place] [address] 15 Jan, 2014 [facility] [place] [facility] [address] [id number] [place] [address] 13 Jan, 2013 [facility] [place] [facility] [address] [id number] [place] [address] Jan, [facility] [place] [facility] [address] [id number] [place] [address] Jan, 2013 [facility] [place] [facility] [address] [id number] [place] [address] Jan, 2013 [facility] [place] [facility] [address] [id number] [place] [address] Jan, 2013 [facility] [place] [facility] [address] [id number] [place] [address]- [address] Jan, [facility] [place] [facility] [address] [id number] [place] [address] Jan, [facility] [place] [facility] [address] [id number] [place] [address] Jan, 2013 [facility] [place] [facility] [address] [id number] [place] [address] Jan, [facility] [place] [facility] [address] [id number] [place] [address] Jan, [facility] [place] [facility] [address] [id number] [place] [address] Dec, 2013 [facility] [place] [facility] [address] [id number] [place] [address] Dec, 2013 [facility] [place] [facility] [address] [id number], [place] [address] 11 Dec, 2013 [facility] [place] [facility] [address] [id number] [place] [address] Dec, 2013 [facility] [place] [facility] [address] [id number] [place] [address] Dec, 2013 [facility] [place] [facility] [address] [id number] [place] [address] Dec, 2013 [facility] [place] [facility] [address] [id number] [place] [address] 08 Dec, 2013 [facility] [place] [facility] [address] [id number] [place] [address] Dec, 2013 [facility] [place] [facility] [address] [id number] [place] [address]- [address] Dec, 2013 [facility] [place] [facility] [address] [id number] [place] [address] Dec, 2013 [facility] [place] [facility] [address] [id number] [place] [address] Dec, 2013 [facility] [place] [facility] [address] [id number] [place] [address] Dec, 2013 [facility] [place] [facility] [address] [id number] [place] [address] Dec, 2013 [facility] [place] [facility] [address] [id number] [place] [address] 97[address] Dec, 2013 [facility] [place] [facility] [address] [id number] [place] [address] 4739 Nov, [facility] [place] [facility] [address] [id number] [place] [address] 4066 Nov, [facility] [place] [facility] [address] [id number] [place] [address] 1066 Nov, [facility] [place] [facility] [address] [id number] [place] [address]- 6075 Nov, [facility] [place] [facility] [address] [id number] [place] [address] 3466 Nov, [facility] [place] [facility] [address] [id number] [place] [address] 7377 Nov, [facility] [place] [facility] [address] [id number] [place] [address]- 1498 Nov, [facility] [place] [facility] [address] [id number], [place] [address] Nov, [facility] [place] [facility] [address] [id number] [place] [address]- 5238 Nov, [facility] [place] [facility] [address] [id number] [place] [address]- 5732 Nov, [facility] [place] [facility] [address] [id number] [place] [address]- 3565 Nov, [facility] [place] [facility] [address] [id number] [place] [address]- 6212 Nov, [facility] [place] [facility] [address] [id number] [place] [address] 1373 Nov, [facility] [place] [facility] [address] [id number] [place] [address]- 8215 Nov, [facility] [place] [facility] [address] [id number] [place] [address]- 8047 Oct, [facility] [place] [facility] [address] [id number] [place] [address]- 9931 Oct, [facility] [place] [facility] [address] [id number] [place] [address]- 6871 Oct, [facility] [place] [facility] [address] [id number] [place] [address] 1653 Oct, [facility] [place] [facility] [address] [id number] [place] [address]- 0736 Oct, [facility] [place] [facility] [address] [id number] [place] [address]- 8576 Oct, [facility] [place] [facility] [address] [id number] [place] [address]- 5551 Oct, [facility] [place] [facility] [address] [id number] [place] [address]- 2793 Oct, [facility] [place] [facility] [address] [id number] [place] [address]- 5983 Oct, [facility] [place] [facility] [address] [id number] [facility] [place] [address]- 3226 Oct, 2013 [facility] [place] [facility] [address] [id number] [place] [address]- 9545 Oct, [facility] [place] [facility] [address] [id number] [facility] [place] [address]- 2516 Oct, 2013 [facility] [place] [facility] [address] [id number] [place] [address]- 9435 Oct, 2013 [facility] [place] [facility] [address] [id number] [place] [address]- 3[address] Oct, 2013 [facility] [place] [facility] [address] [id number] [place] [address]- 6267 Oct, [facility] [place] [facility] [address] [id number] [place] [address]- 9204 Oct, [facility] [place] [facility] [address] [id number] [place] [address]- 5685 Oct, [facility] [place] [facility] [address] [id number] [place] [address]- 2481 Oct, [facility] [place] [facility] [address] [id number] [place] [address]- 4909 Oct, [facility] [place] [facility] [address] [id number] [place] [address]- 7097 Oct, [facility] [place] [facility] [address] [id number] [place] [address] 7465 Sep, [facility] [place] [facility] [address] [id number] [place] [address]- 0230 Sep, [facility] [place] [facility] [address] [id number] [place] [address]- 6513 Sep, [facility] [place] [facility] [address] [id number] [place] [address]- 5129 Sep, [facility] [place] [facility] [address] [id number] [place] [address]- 3015 Sep, [facility] [place] [facility] [address] [id number] [place] [address]- 4444 Sep, [facility] [place] [facility] [address] [id number] [place] [address]- 0055 August, [facility] [place] [facility] [address] [id number] [place] [address]- 9688 August, [facility] [place] [facility] [address] [id number] [place] [address]- 3059 Jul, [facility] [place] [facility] [address] [id number] [place] [address]- 5655 Jul, [facility] [place] [facility] [address] [id number] [place] [address]- 7938 Jul, [facility] [place] [facility] [address] [id number] [place] [address]- 3011 Jul, [facility] [place] [facility] [address] [id number] [place] [address]- 0408 Jul, [facility] [place] [facility] [address] [id number] [place] [address]- 9679 Jul, [facility] [place] [facility] [address] [id number] [place] [address]- 7302 Jul, [facility] [place] [facility] [address] [id number] [place] [address]- 0959 Jul, [facility] [place] [facility] [address] [id number], [place] [address]- 3637 Jun, [facility] [place] [facility] [address] [id number] [place] [address]- 1348 Jun, [facility] [place] [facility] [address] [id number] [place] [address]- 1436 Jun, [facility] [place] [facility] [address] [id number] [place] [address]- 2546 Jun, [facility] [place] [facility] [address] [id number] [place] [address]- 6943 Jun, [facility] [place] [facility] [address] [id number] [place] [address]- 7536 May, [facility] [place] [facility] [address] [id number] [place] [address] 2546 May, [facility] [place] [facility] [address] [id number] [place] [address]- 6106 May, [facility] [place] [facility] [address] [id number] [place] [address]- 2546 May, [facility] [place] [facility] [address] [id number] [place] [address]- 2786 May, [facility] [place] [facility] [address] [facility] [id number] [place] [address]- 9719 May, [facility] [place] [facility] [address] [id number] [place] [address]- 1525 May, [facility] [place] [facility] [address] [id number] [place] [address]- 6090 May, [facility] [place] [facility] [address] [facility] [id number] [place] [address]- 7416 May, [facility] [place] [facility] [address] [facility] [id number] [place] [address]- 4597 May, [facility] [place] [facility] [address] [facility] [id number] [place] [address]- 2548 May, [facility] [place] [facility] [address] [facility] [id number] [place] [address]- 6706 Apr, [facility] [place] [facility] [address] [id number] [place] [address]- 7716 Apr, [facility] [place] [facility] [address] [facility] [id number] [place] [address]- 6115 Mar, [facility] [place] [facility] [address] [facility] [id number], [place] [address]- 2506 Mar, [facility] [place] [facility] [address] [id number] [place] [address]- 1577 Mar, [facility] [place] [facility] [address] [id number] [place] [address]- 6535 Mar, [facility] [place] [facility] [address] [id number] [place] [address]- 2112 Mar, [facility] [place] [facility] [address] [id number], [place] [address]- 1791 Jan, [facility] [place] [facility] [address] [id number] [place] [address]- 0098 Jan, [facility] [place] [facility] [address] [id number] 7155 Jan, [facility] [place] [facility] [address] [id number], [place] [address]- 0705 Jan, [facility] [place] [facility] [address] [id number], [place] [address]- 4947 Jan, [facility] [place] [facility] [address] [id number] 4618 Jan, [facility] [place] [facility] [address] [id number], [place] [address]- 3148 Jan, [facility] [place] [facility] [address] [id number], [place] [address]- 3397 Jan, [facility] [place] [facility] [address] [id number], [place] [address]- 9544 Jan, [facility] [place] [facility] [address] [id number], [place] [address]- 3554 Jan, [facility] [place] [facility] [address] [id number], [place] [address]- 1862 Dec, [facility] [place] [facility] [address] [id number], [place] [address]- 2548 Oct, [facility] [place] [facility] [address] [id number] [place] [address]- 2129 Oct, [facility] [address] [id number] [place] [address]- 7339 Oct, [facility] [address] [id number] [place] [address]- 5929 Oct, [facility] [address] [id number] [place] [address]- 7556 Oct, [facility] [address] [id number] [place] [address]- 2336 Oct, [facility] [address] [id number] [place] [address]- 4975 Sep, [facility] [address] [id number] [place] [address]- 9889 August, [facility] [address] [id number] [place] [address]- 1175 August, [facility] [address] [id number] [place] [address]- 9931 August, [facility] [address] [id number] [place] [address]- 6527 August, [facility] [address] [id number] [place] [address]- 2401 August, [facility] [address] [id number] [place] [address]- 8191 May, [facility] [address] [id number] [place] [address]- 9118 Apr, [facility] [address] [id number] [place] [address]- 1650 Apr, [facility] [address] [id number] [place] [address]- 2546 Apr, [facility] [address] [id number] [place] [address]- 5324 Apr, [facility] [address] [id number] [place] [address]- 5079 Apr, [facility] [place] [id number] Mar, [facility] [address] [id number] [place] [address] Mar, [facility] [address] [id number] [place] [address]- 3108 Mar, [facility] [address] [id number] [place] [address]- 5510 Mar, [facility] [address] [id number] [place] [address]- 5471 Mar, [facility] [address] [id number] [place] [address]- 4630 17 Mar, 2012 [facility] [address] [id number] [place] [address]- 2609 Mar, [facility] [address] [id number] [place] [address]- 9796 Mar, [facility] [address] [id number] [place] [address]- 9982 Mar, [facility] [address] [id number] [place] [address]- 7396 Mar, [facility] [address] [id number] [place] [address]- 5307 Mar, [facility] [address] [id number] [place] [address]- 8941 Mar, [facility] [address] [id number] [place] [address]- 5079 10 Mar, 2012 [facility] [address] [id number] [place] [address] 10 Mar, 2012 [facility] [address] [id number] [place] [address]- 8018 Mar, [facility] [place] [facility] [address] [id number] [place] [address]- 5106 Mar, [facility] [place] [facility] [address] [id number], [place] [address]- 5306 Mar, [facility] [place] [facility] [address] [facility] [id number] [place] [address]- 9416 Mar, [facility] [place] [facility] [address] [id number], [place] [address]- 5778 Mar, [facility] [place] [facility] [address] [id number] [place] [address]- 9338 Mar, [facility] [place] [facility] [address] [facility] [id number], [place] [address]- 2914 Feb, [facility] [place] [facility] [address] [facility] [id number], [place] [address]- 6363 Feb, [facility] [place] [facility] [address] [id number], [place] [address]- 6437 Feb, [facility] [place] [facility] [address] [facility] [id number], [place] [address]- 2571 Feb, [facility] [place] [facility] [address] [facility] [id number], [place] [address]- 4456 Jan, [facility] [place] [facility] [address] [facility] [id number], [place] [address]- 8568 Jan, [facility] [place] [facility] [address] [id number], [place] [address]- 1846 Jan, [facility] [place] [facility] [address] [id number], [place] [address]- 9767 Jan, [facility] [place] [facility] [address] [facility] [id number], [place] [address]- 1048 Jan, [facility] [place] [facility] [address] [facility] [id number], [place] [address]- 0646 Jan, [facility] [place] [facility] [address] [id number] [place] [address]- 2590 12 Jan, 2012 [facility] [place] [facility] [address] [id number] [place] [address]- 9991 12 Jan, 2012 [facility] [place] [facility] [address] [id number] [place] [address]- 3506 10 Jan, 2012 [facility] [place] [facility] [address] [id number] [place] [address]- 7343 27 Dec, 2011 [facility] [place] [facility] [address] [id number] [place] [address]- 8241 14 Dec, 2011 [facility] [place] [facility] [address] [id number] [place] [address]- 0829 12 Dec, 2011 [facility] [place] [facility] [address] [id number] [place] [address]- 1626 06 Dec, 2011 [facility] [place] [facility] [address] [id number] [place] [address]- 8484 06 Dec, 2011 [facility] [place] [facility] [address] [id number] [place] [address]- 7372 Nov, [facility] [place] [facility] [address] [id number] [place] [address]- 7949 Nov, [facility] [place] [facility] [address] [id number] [place] [address]- 3290 23 Nov, 2011 [facility] [place] [facility] [address] [id number] [place] [address]- 1789 14 Nov, 2011 [facility] [place] [facility] [address] [id number] [place] [address]- 1675 13 Nov, 2011 [facility] [place] [facility] [address] [id number] [place] [address]- 5968 Nov, [facility] [place] [facility] [address] [id number] [place] [address]- 0460 08 Nov, 2011 [facility] [place] [facility] [address] [id number] [place] [address]- 7069 Nov, [facility] [place] [facility] [address] [id number] [place] [address]- 2889 Nov, [facility] [place] [facility] [address] [id number] [place] [address]- 4451 19 Oct, 2011 [facility] [place] [facility] [address] [id number] [place] [address]- 9032 Oct, [facility] [place] [facility] [address] [id number] [place] [address]- 6537 Sep, [facility] [address] [id number] [place] [address]- 1170 Sep, [facility] [place] [facility] [address] [id number] [place] [address]- 8441 Sep, [facility] [address] [id number] [place] [address]- 2838 August, [facility] [address] [id number] [place] [address]- 6412 30 Jul, 2011 [facility] [place] [facility] [address] [id number] [place] [address]- 4430 27 Jul, 2011 [facility] [place] [facility] [address] [id number] [place] [address]- 9593 27 Jul, 2011 [facility] [place] [facility] [address] [id number] [place] [address]- 9013 18 Jul, 2011 [facility] [place] [facility] [address] [id number] [place] [address]- 0790 16 Jul, 2011 [facility] [place] [facility] [address] [id number] [place] [address]- 7656 16 Jul, 2011 [facility] [place] [facility] [address] [id number] [place] [address]- 9377 16 Jul, 2011 [facility] [place] [facility] [address] [id number] [place] [address]- 9653 14 Jul, 2011 [facility] [place] [facility] [address] [id number], [place] [address]- 0369 Jul, [facility] [address] [id number] [place] [address]- 4989 Jun, [facility] [place] [facility] [address] [id number] [place] [address]- 4533 Jun, [facility] [place] [facility] [address] [id number] [place] [address]- 8346 15 Jun, 2011 [facility] [place] [facility] [address] [id number] [place] [address]- 0034 Jun, [facility] [place] [facility] [address] [id number] [place] [address]- 9371 Jun, [facility] [place] [facility] [address] [id number] [place] [address]- 1570 Jun, [facility] [address] [facility] [id number] [place] [address]- 0032 Jun, [facility] [place] [facility] [address] [id number] [place] [address]- 8147 Jun, [facility] [place] [facility] [address] [id number] [place] [address]- 7152 May, [facility] [place] [facility] [address] [id number] [place] [address]- 7275 May, [facility] [place] [facility] [address] [id number] [place] [address]- 9557 May, [facility] [place] [facility] [address] [id number], [place] [address]- 8102 Apr, [facility] [place] [facility] [address] [id number] [place] [address]- 4275 Apr, [facility] [place] [facility] [address] [id number] [place] [address]- 5886 Apr, [facility] [place] [facility] [address] [id number] [place] [address]- 5628 Mar, [facility] [place] [facility] [address] [id number] [place] [address]- 6080 21 Mar, 2011 [facility] [place] [facility] [address] [id number] [place] [address]- 2096 15 Mar, 2011 [facility] [place] [facility] [address] [id number] [place] [address]- 9426 13 Mar, 2011 [facility] [place] [facility] [address] [id number] [place] [address]- 2666 13 Mar, 2011 [facility] [place] [facility] [address] [id number] [place] [address]- 1111 12 Mar, 2011 [facility] [place] [facility] [address] [id number] [place] [address]- 2256 Mar, [facility] [place] [facility] [address] [id number] [place] [address]- 6717 Mar, [facility] [place] [facility] [address] [id number] [place] [address] 08 Mar, 2011 [facility] [place] [facility] [address] [id number] [place] [address] 07 Mar, 2011 [facility] [place] [facility] [address] [id number] [place] [address] 06 Mar, 2011 [facility] [place] [facility] [address] [id number] [place] [address] 06 Mar, 2011 [facility] [place] [facility] [address] [id number] [place] [address] 06 Mar, 2011 [facility] [place] [facility] [address] [id number] [place] [address] 05 Mar, 2011 [facility] [place] [facility] [address] [id number] [place] [address] 29 Feb, 2011 [facility] [place] [facility] [address] [id number] [place] [address] 22 Feb, 2011 [facility] [place] [facility] [address] [id number] [place] [address] 14 Feb, 2011 [facility] [place] [facility] [address] [id number] [place] [address] 29 Jan, 2011 [facility] [place] [facility] [address] [id number] [place] [address] Jan, [facility] [place] [facility] [address] [id number] [place] [address] 2008 Oct, [facility] [place] [facility] [address] [id number] [place] [address] Sep, [facility] [place] [facility] [address] [id number] [place] [address] Mar, [facility] [place] [facility] [address] [id number] [place] [address] Mar, [facility] [place] [facility] [address] [id number] [place] [address] Feb, [facility] [place] [facility] [address] [id number], [place] [address] Feb, [facility] [place] [facility] [address] [id number] [place] [address] Jan, [facility] [place] [facility] [address] [facility] [id number], [place] [address] Jan, [facility] [place] [facility] [address] [id number], [place] [address] Mar, [facility] [place] [facility] [address] [id number], [place] [address] Feb, [facility] [place] [facility] [address] [id number], [place] [address] Feb, [facility] [place] [facility] [address] [id number], [place] [address] Feb, [facility] [place] [facility] [address] [facility] [id number], [place] [address] Feb, [facility] [place] [facility] [address] [facility] [id number] [place] [address] Jan, [facility] [address] [facility] [id number], [place] [address] Dec, [facility] [address] [facility] [id number], [place] [address] Nov, IMMUNIZATIONS No Known Immunizations SOCIAL HISTORY Never Assessed REASON FOR VISIT finger bruising and pain PLAN OF CARE Activity Details Follow Up Regular appt Reason: VITAL SIGNS MEDICATIONS Medication Instructions Dosage Frequency Start Date End Date Duration Status Klonopin 0.5 MG Orally Twice a day 2 tablets in AM and 1 in PM 12h August, 28 days Active Lactobacillus - Orally 4 times a day 1 tablet 6h Active Exelon 9.5 MG/24HR Transdermal Once a day 1 patch to skin 24h Active Celexa 20 mg Orally Once a day 1 tablet 24h 30 days Active Clonidine HCl 0.2 MG Orally twice a day 1 tablet 12h Active Aspir-81 81 MG Orally Once a day 1 tablet 24h Active Levetiracetam 500 mg Orally Twice a day 1 tablet 12h Active Synthroid 175 MCG Orally Once a day 1 tablet on an empty stomach in the morning 24h Active Plavix 75 MG Orally Once a day 1 tablet 24h Active Simvastatin 10 MG Orally Once a day 1 tablet in the evening 24h Active Melatonin 3 MG Orally Once a day 1 tablet at bedtime 24h Active Metformin HCl 1000 MG Orally Twice a day 1 tablet with meals 12h Active Divalproex Sodium 125 MG Orally 4 times a day 2 capsules 6h Active Enalapril Maleate 2.5 MG Orally Once a day 1 tablet 24h Active Mylanta 200-200-20 MG/5ML Orally every 4 hrs 30 ml as needed 4h Active Ibuprofen 200 mg Orally 4 times a day as needed for pain or fever 2 tablet with food or milk as needed Oct, Active Cholecalciferol 4000 UNIT Orally Once a day 1 tablet 24h Active Remeron 15 MG Orally Once a day 1 tablet at bedtime 24h Active Aricept 10 mg Orally Once a day 1 tablet at bedtime 24h Dec, 30 day(s) Active Glimepiride 4 MG Orally Once a day 1 tablet with breakfast or the first main meal of the day 24h Sep, 30 day(s) Active Metoprolol Tartrate 25 MG Orally Twice a day 1 tablet with food 12h Active RESULTS No Results PROCEDURES Procedure Date Ordered Result Body Site Stable Visit (10 minutes) Jan 01, 2018 INSTRUCTIONS MEDICATIONS ADMINISTERED No Known Medications MEDICAL (GENERAL) HISTORY Type Description Date Hospitalization History [facility] March 2015
--- OUTSIDE RECORDS SUMMARY | 2018-02-25 07:38 | XMS REPORT ---
Author Author STEPHANIE CHRISTIANSEN [facility] Address [address] [place] [address] Care Team Providers Care Clinical Business Manager Name Role Phone STEPHANIE CHRISTIANSEN Unavailable PROBLEMS Type Condition ICD9-CM Code APG03-IU Code Onset Dates Condition Status SNOMED Code Problem Hyperlipidemia, unspecified hyperlipidemia type E78.5 Active 60874253 Problem Long-term insulin use Z79.4 Active 374085141 Problem Abnormal carotid ultrasound R93.8 Active 209477708 Problem Type 2 diabetes mellitus with complication E11.8 Active 65590377 Problem Positive TB test R76.11 Active 046142583 Problem Vascular dementia with behavior disturbance F01.51 Active 270181241 Problem PVD (peripheral vascular disease) I73.9 Active 907881248 Problem Pain R52 Active 59138977 Problem Other chronic osteomyelitis of left foot M86.672 Active 760867373 Problem Nicotine dependence, unspecified, uncomplicated F17.200 Active 188633433 Problem Peripheral vascular disease due to secondary diabetes E13.51 Active 6448411 Problem Nonintractable epilepsy without status epilepticus, unspecified epilepsy type G40.909 Active 932065189 Problem Recurrent major depressive disorder, remission status unspecified F33.9 Active 83947641 Problem Anxiety F41.9 Active 98002124 Problem Generalized anxiety disorder F41.1 Active 46856218 Problem Vascular dementia F01.50 Active 440157887 Problem Pseudobulbar affect F48.2 Active 96087685 Problem Coronary artery disease involving [place] coronary artery of [place] heart without angina pectoris I25.10 Active 6265511817779 Problem Gastroesophageal reflux disease without esophagitis K21.9 Active 405947505 Problem Cerebrovascular accident (CVA) due to other mechanism I63.8 Active 090097168 Problem Pulmonary emphysema, unspecified emphysema type J43.9 Active 11407471 Problem Neuropathy G62.9 Active 912468201 Problem Depression F32.9 Active 88987830 Problem Essential hypertension I10 Active 10020951 Problem Acquired hypothyroidism E03.9 Active 400784378 ALLERGIES No Information ENCOUNTERS Encounter Location Date Diagnosis [facility] [id number] [place] [address] 92102- 1755 Jan, Generalized anxiety disorder F41.1 [facility] [address] [place] [id number] Dec, Crush injury T14.8XXA [facility] [id number] [place] [address] 82469- 4192 14 Dec, 2017 Generalized anxiety disorder F41.1 [facility] [id number] [place] [address] 07000- 3258 Dec, [facility] [id number] [place] [address] 22947- 4412 Dec, [facility] [id number] [place] [address] 32178- 5076 Nov, Generalized anxiety disorder F41.1 [facility] [id number] [place] [address] 57462- 9952 Oct, Generalized anxiety disorder F41.1 [facility] [id number] [place] [address] 03191- 2692 Oct, Generalized anxiety disorder F41.1 [facility] [address] [place] [id number] Oct, Sepsis, due to unspecified organism A41.9 ; Generalized anxiety disorder F41.1 ; Pain R52 and Depression F32.9 [facility] [id number] [place] [address] 17651- 8635 Oct, [facility] [id number] [place] [address] 60526- 0182 Oct, [facility] [id number] [place] [address] 14225- 1255 Sep, Generalized anxiety disorder F41.1 [facility] [id number] [place] [address] 68468- 6098 Sep, [facility] [address], [place] [address] 9693 Sep, Type 2 diabetes mellitus with complication E11.8 [facility] [address], [place] [address] 4864 August, Generalized anxiety disorder F41.1 [facility] [address], [place] [address] 7735 August, [facility] [address] [place] [id number] August, Type 2 diabetes mellitus with complication E11.8 ; Vascular dementia with behavior disturbance F01.51 ; Long-term insulin use Z79.4 and Nicotine dependence, unspecified, uncomplicated F17.200 [facility] [address], [place] [address] 7208 August, Generalized anxiety disorder F41.1 [facility] [address], [place] [address] 2382 Jul, Generalized anxiety disorder F41.1 [facility] [id number] [address] Jun, Generalized anxiety disorder F41.1 [facility] [id number] [id number] Jun, [facility] [id number] [id number] May, [facility] [address] [address] 0785 May, [facility] [id number] [address] May, Generalized anxiety disorder F41.1 [facility] [address] [address] 1983 Apr, [facility] [address] [place] [id number] Apr, Other chronic osteomyelitis of left foot M86.672 ; Type 2 diabetes mellitus with complication E11.8 ; Vascular dementia F01.50 ; Long-term insulin use Z79.4 ; PVD (peripheral vascular disease) I73.9 and Nicotine abuse 305.1 [facility] [id number] [place] [address] 41431- 4017 Apr, [facility] [id number] [place] [address] [id number] Apr, [facility] [address] 33649- 9437 Apr, Pain R52 and Generalized anxiety disorder F41.1 [facility] [id number] [place] [address] 36736- 0895 Mar, [facility] [id number] [place] [address] 70430- 0091 Mar, Pain R52 and Generalized anxiety disorder F41.1 [facility] [address] [place] [id number] Feb, Depression F32.9 ; Type 2 diabetes mellitus with complication E11.8 and Nicotine dependence, unspecified, uncomplicated F17.200 [facility] [id number] [place] [address] 13074- 3443 Feb, Generalized anxiety disorder F41.1 and Pain R52 [facility] [id number] [place] [address] 14773- 7237 Feb, [facility] [id number] [place] [address] 39946- 1140 Jan, [facility] [id number] [place] [address] 92480- 4628 Jan, Generalized anxiety disorder F41.1 and Pain R52 [facility] [id number] [place] [address] 79079- 9100 Jan, [facility] [id number] [place] [address] [id number] Dec, Generalized anxiety disorder F41.1 and Pain R52 [facility] [address] [id number] Dec, Vascular dementia F01.50 ; Pain of left leg M79.605 ; Pain in right leg M79.604 and Type 2 diabetes mellitus with complication E11.8 [facility] [address] [place] [address] 03572- 6405 Dec, Pain R52 [facility] [id number] [place] [address] 60484- 9272 Dec, [facility] [id number] [place] [address] 73760- 4363 Nov, [facility] [id number] [place] [address] 53008- 2993 Nov, Pain R52 and Generalized anxiety disorder F41.1 [facility] [address] [place] [id number] Nov, Depression F32.9 ; Vascular dementia with behavior disturbance F01.51 and Anxiety F41.9 [facility] [id number] [place] [address] 58052- 6352 Nov, Pain R52 and Generalized anxiety disorder F41.1 [facility] [id number] [place] [address] 38524- 8371 Oct, Generalized anxiety disorder F41.1 [facility] [id number] [place] [address] 14186- 5207 Oct, Pain R52 [facility] [id number] [place] [address] 99975- 8082 14 Sep, 2016 [facility] [address] [place] [id number] Sep, Generalized anxiety disorder F41.1 [facility] [id number] [place] [address] 35060- 4483 09 Sep, 2016 Pain R52 [facility] [id number] [place] [address] 24064- 4445 05 Sep, 2016 Generalized anxiety disorder F41.1 [facility] [id number] [place] [address] [place] [address] 3526 August, [facility] [address], [place] [address]- 1746 August, [facility] [address] [place] [address] 40297- 7306 August, Pain R52 [facility] [address] [place] [address] 81112- 7906 August, Generalized anxiety disorder F41.1 [facility] [place] [facility] [id number] [place] [address] [id number] August, Generalized anxiety disorder F41.1 [facility] [id number] [place] [address] 37561- 0906 Jul, Pain R52 [facility] [address] [place] [address] 77386- 8222 Jul, [facility] [place] [facility] [id number] [place] [address] [id number] Jul, [facility] [address], [place] [address]- 7938 Jun, [facility] [place] [facility] [id number] [place] [address] [id number] Jun, Depression F32.9 [facility] [address], [place] [address]- 3690 Jun, Pain R52 [facility] [address] [place] [address] 19533- 6069 Jun, [facility] [address] [place] [id number] Jun, Vascular dementia F01.50 and Depression F32.9 [facility] [address], [place] [address]- 3506 May, Pain R52 [facility] [address], [place] [address]- 5471 May, [facility] [id number] [place] [address] 02395- 2291 10 May, 2016 Pseudobulbar affect F48.2 [facility] [id number] [place] [address] 40458- 6106 09 May, 2016 [facility] [id number] [place] [address] 24344- 2505 May, PVD (peripheral vascular disease) I73.9 [facility] [id number] [place] [address] 21757- 2677 May, Vascular dementia with behavior disturbance F01.51 [facility] [id number] [place] [address] 51838- 8684 May, Vascular dementia with behavior disturbance F01.51 [facility] [id number] [place] [address] 40833- 4900 Apr, [facility] [id number] [place] [address] 51734- 0725 Apr, Pain R52 [facility] [address] [place] [id number] Apr, Generalized anxiety disorder F41.1 ; PVD (peripheral vascular disease) I73.9 and Type 2 diabetes mellitus with complication E11.8 [facility] [address] [place] [address] 33761- 3721 Apr, Vascular dementia with behavior disturbance F01.51 [facility] [address] [place] [address] 75321- 4561 Apr, [facility] [id number] [place] [address] 84350- 2274 Apr, Vascular dementia with behavior disturbance F01.51 [facility] [address] [place] [address] 20942- 7693 Apr, [facility] [id number] [place] [address] [id number] Mar, [facility] [address] [place] [address] 89152- 6722 Mar, Type 2 diabetes mellitus with complication E11.8 ; Vascular dementia with behavior disturbance F01.51 and Depression F32.9 [facility] [address] [address]- 2235 Mar, [facility] [id number] [place] [address] 87917- 1436 Feb, [facility] [id number] [place] [address] 13129- 5856 Feb, Viral illness B34.9 [facility] [id number] [place] [address] 74494- 2800 Jan, Diabetes 250.00 [facility] [id number] [place] [address] 09508- 4159 Jan, [facility] [id number] [place] [address] 09503- 9488 Jan, [facility] [id number] [place] [address] 94876- 6527 Jan, [facility] [address] [place] [id number] Jan, Vascular dementia with behavior disturbance F01.51 and Type 2 diabetes mellitus with complication E11.8 [facility] [address] [place] [address] 12685- 5180 Jan, Pain R52 [facility] [id number] [place] [address] 28380- 4491 Jan, Pain R52 [facility] [address] [place] [address] 85123- 7695 Dec, [facility] [id number] [place] [address] 84975- 1573 Nov, [facility] [address] [id number] Nov, Type 2 diabetes mellitus with complication E11.8 [facility] [address], [place] [address]- 8849 Nov, [facility] [address], [place] [address]- 4498 Oct, [facility] [address], [place] [address]- 3315 Oct, [facility] [address] [place] [address] 42468- 6946 Oct, Vascular dementia with behavior disturbance F01.51 and Type 2 diabetes mellitus with complication E11.8 [facility] [address], [place] [address]- 7233 August, Type 2 diabetes mellitus with complication E11.8 and Vascular dementia with behavior disturbance F01.51 [facility] [address], [place] [address]- 4930 August, Vascular dementia F01.50 [facility] [address] [place] [address] 80830- 1476 August, Vascular dementia with behavior disturbance F01.51 [facility] [address] [place] [address] 12736- 7432 Jul, Vascular dementia with behavior disturbance F01.51 [facility] [address], [place] [address]- 6272 Jun, Vascular dementia F01.50 [facility] [address], [place] [address]- 4995 Jun, Type 2 diabetes mellitus with complication E11.8 ; Long- term insulin use Z79.4 and Vascular dementia with behavior disturbance F01.51 [facility] [address], [place] [address]- 9059 Jun, Vascular dementia with behavior disturbance F01.51 [facility] [address], [place] [address]- 7026 Jun, Vascular dementia F01.50 [facility] [address] [address]- 1490 Apr, [facility] [address], [place] [address]- 7558 Apr, [facility] [address] 1422 Apr, [facility] [address], [place] [address]- 0306 Apr, Type 2 diabetes mellitus with complication E11.8 ; Depression F32.9 and Long-term insulin use Z79.4 [facility] [id number] [address]- 7910 Mar, [facility] [address] [place] [id number] Mar, Depression F32.9 ; Type 2 diabetes mellitus with complication E11.8 and Long-term insulin use Z79.4 [facility] [address], [place] [address]- 1642 Feb, [facility] [address], [place] [address]- 0256 Feb, Hyperthyroidism E05.90 [facility] [address] 6684 Feb, Hyperthyroidism E05.90 [facility] [address], [place] [address]- 3971 Feb, [facility] [address]- 8567 Jan, [facility] [id number] 0789 Dec, Nicotine addiction 305.1 [facility] [address] 0584 Oct, Nicotine abuse 305.1 [facility] [address]- 4671 Oct, [facility] [address] [id number], [place] [address] August, [facility] [address] [place] [id number] August, History of drug abuse 305.93 and Diabetes 250.00 [facility] [address] [id number] [place] [address]- 3007 Jul, [facility] [address] [id number], [place] [address]- 2153 Jul, [facility] [address] [id number] [place] [address]- 7410 Jun, [facility] [address] [facility] [id number], [place] [address]- 1725 Jun, [facility] [address] [facility] [id number] [place] [address]- 9922 Jun, [facility] [address] [facility] [id number], [place] [address]- 6505 Jun, [facility] [address] [facility] [id number] [place] [address]- 8964 Jun, [facility] [address] [facility] [id number], [place] [address]- 9882 Jun, [facility] [address] [facility] [id number], [place] [address]- 0179 May, [facility] [address] [id number], [place] [address]- 2465 May, [facility] [address] [id number] [place] [address]- 1613 May, [facility] [address] [facility] [id number], [place] [address]- 4430 May, [facility] [address] [facility] [id number], [place] [address]- 8429 May, [facility] [address] [facility] [id number] [place] [address]- 6112 Apr, [facility] [address] [id number] [place] [address]- 8620 Apr, [facility] [address] [place] [id number] Apr, [facility] [address] [id number] [place] [address]- 9880 Apr, [facility] [address] [id number] [place] [address]- 1291 Apr, [facility] [address] [id number] [place] [address]- 7026 Apr, [facility] [address] [id number] [place] [address]- 9647 Apr, [facility] [address] [id number] [place] [address]- 0582 Apr, [facility] [address] [id number] [place] [address]- 7131 Mar, [facility] [address] [id number] [place] [address]- 3048 Mar, [facility] [address] [id number] [place] [address]- 3954 Mar, [facility] [address] [id number] [place] [address]- 9123 Mar, [facility] [address] [id number] [place] [address]- 9421 Mar, [facility] [address] [id number] [place] [address]- 5257 Mar, [facility] [address] [id number] [place] [address]- 5554 Mar, [facility] [address] [id number] [place] 7856 Mar, [facility] [place] [facility] [address] [id number] [place] [address]- 4594 Feb, [facility] [place] [facility] [address] [id number] [place] 8065 Feb, [facility] [place] [facility] [address] [id number] [place] [address]- 3780 Feb, [facility] [place] [facility] [address] [id number] [place] [address]- 0966 Feb, [facility] [place] [facility] [address] [id number] [place] [address]- 3326 Feb, [facility] [address] [place] [id number] Feb, [facility] [place] [facility] [address] [id number] [place] [address]- 2088 Feb, [facility] [place] [facility] [address] [id number] [place] [address]- 9439 Feb, [facility] [place] [facility] [address] [id number] [place] [address]- 7640 Feb, [facility] [place] [facility] [address] [id number] [place] [address]- 8235 Feb, [facility] [place] [facility] [address] [id number] [place] [address]- 8766 Jan, [facility] [place] [facility] [address] [id number] [place] [address] 30 Jan, 2014 [facility] [place] [facility] [address] [id number] [place] [address] Jan, [facility] [place] [facility] [address] [id number] [place] [address] Jan, [facility] [place] [facility] [address] [id number] [place] [address] Jan, [facility] [place] [facility] [address] [id number] [place] [address] Jan, [facility] [place] [facility] [address] [id number] [place] [address] 15 Jan, 2014 [facility] [place] [facility] [address] [id number] [place] [address] 13 Jan, 2014 [facility] [place] [facility] [address] [id number] [place] [address] Jan, [facility] [place] [facility] [address] [id number] [place] [address] Jan, [facility] [place] [facility] [address] [id number] [place] [address]- [address] Jan, [facility] [place] [facility] [address] [id number] [place] [address] Jan, [facility] [place] [facility] [address] [id number] [place] [address]- [address] Jan, [facility] [place] [facility] [address] [id number], [place] [address] Jan, [facility] [place] [facility] [address] [id number] [place] [address] Jan, [facility] [place] [facility] [address] [id number], [place] [address] Jan, [facility] [place] [facility] [address] [id number], [place] [address] Jan, [facility] [place] [facility] [address] [id number], [place] [address] 19 Dec, 2013 [facility] [place] [facility] [address] [id number], [place] [address]- [address] 19 Dec, 2013 [facility] [place] [facility] [address] [id number], [place] [address] 11 Dec, 2013 [facility] [place] [facility] [address] [id number], [place] [address] 11 Dec, 2013 [facility] [place] [facility] [address] [id number], [place] [address] 09 Dec, 2013 [facility] [place] [facility] [address] [id number] [place] [address]- [address] 09 Dec, 2013 [facility] [place] [facility] [address] [id number] [place] [address]- [address] Dec, 2013 [facility] [place] [facility] [address] [id number] [place] [address] Dec, 2013 [facility] [place] [facility] [address] [id number] [place] [address] Dec, 2013 [facility] [place] [facility] [address] [id number] [place] [address]- [address] Dec, 2013 [facility] [place] [facility] [address] [id number] [place] [address] Dec, 2013 [facility] [place] [facility] [address] [id number] [place] [address] 1569 Dec, 2013 [facility] [place] [facility] [address] [id number] [place] [address] 7176 Dec, 2013 [facility] [place] [facility] [address] [id number] [place] [address]- 1052 Dec, 2013 [facility] [place] [facility] [address] [id number] [place] [address] 1367 Nov, [facility] [place] [facility] [address] [id number] [place] [address] 3943 Nov, [facility] [place] [facility] [address] [id number] [place] [address]- 1781 Nov, [facility] [place] [facility] [address] [id number] [place] [address]- 0728 Nov, [facility] [place] [facility] [address] [id number] [place] [address]- 7354 Nov, [facility] [place] [facility] [address] [id number] [place] [address]- 3890 Nov, [facility] [place] [facility] [address] [id number] [place] [address]- 0208 Nov, [facility] [place] [facility] [address] [id number] [place] [address]- 4785 Nov, [facility] [place] [facility] [address] [id number] [place] [address]- 3916 Nov, [facility] [place] [facility] [address] [id number] [place] [address]- 2211 Nov, [facility] [place] [facility] [address] [id number] [place] [address]- 7357 Nov, [facility] [place] [facility] [address] [id number] [place] [address]- 1060 Nov, [facility] [place] [facility] [address] [id number] [place] [address]- 9791 Nov, [facility] [place] [facility] [address] [id number] [place] [address]- 6303 Nov, [facility] [place] [facility] [address] [id number] [place] [address]- 1871 Oct, [facility] [place] [facility] [address] [id number] [place] [address]- 8516 Oct, [facility] [place] [facility] [address] [id number] [place] [address]- 8695 Oct, [facility] [place] [facility] [address] [id number] [place] [address]- 5156 Oct, [facility] [place] [facility] [address] [id number] [place] [address]- 4349 Oct, [facility] [place] [facility] [address] [id number] [place] [address]- 2783 Oct, [facility] [place] [facility] [address] [id number] [place] [address]- [address]01 Oct, [facility] [place] [facility] [address] [id number] [place] [address]- 1997 Oct, [facility] [place] [facility] [address] [id number] [place] [address]- 8752 Oct, [facility] [place] [facility] [address] [id number] [place] [address]- 2573 Oct, [facility] [place] [facility] [address] [id number] [place] [address]- 0335 Oct, [facility] [place] [facility] [address] [id number] [place] [address]- 2327 Oct, [facility] [place] [facility] [address] [id number] [place] [address]- 9687 Oct, [facility] [place] [facility] [address] [id number] [place] [address]- 0572 Oct, [facility] [place] [facility] [address] [id number] [place] [address]- 2668 Oct, [facility] [place] [facility] [address] [id number] [place] [address]- 1958 Oct, [facility] [place] [facility] [address] [id number] [place] [address]- 6592 Oct, [facility] [place] [facility] [address] [id number] [place] [address]- 5393 Oct, [facility] [place] [facility] [address] [id number] [place] [address]- 8033 Oct, [facility] [place] [facility] [address] [id number] [place] [address]- 6985 Oct, [facility] [place] [facility] [address] [id number] [place] [address]- 7912 Sep, [facility] [place] [facility] [address] [id number] [place] [address]- 1200 Sep, [facility] [place] [facility] [address] [id number] [place] [address]- 2335 Sep, [facility] [place] [facility] [address] [id number] [place] [address]- 6719 Sep, [facility] [place] [facility] [address] [id number] [place] [address]- 5237 Sep, [facility] [place] [facility] [address] [id number] [place] [address]- 8963 Sep, [facility] [place] [facility] [address] [id number] [place] [address]- 7080 August, [facility] [place] [facility] [address] [id number] [place] [address]- 9546 August, [facility] [place] [facility] [address] [id number] [place] [address]- 9364 Jul, [facility] [place] [facility] [address] [id number] [place] [address]- 7333 Jul, [facility] [place] [facility] [address] [id number] [place] [address]- 2250 Jul, [facility] [place] [facility] [address] [id number] [place] [address]- 5280 Jul, [facility] [place] [facility] [address] [id number] [place] [address]- 0396 Jul, [facility] [place] [facility] [address] [id number] [place] [address]- 5493 Jul, [facility] [place] [facility] [address] [id number] [place] [address]- 7104 Jul, [facility] [place] [facility] [address] [id number] [place] [address]- 1012 Jul, [facility] [place] [facility] [address] [id number] [place] [address]- 0976 Jun, [facility] [place] [facility] [address] [id number] [place] [address]- 6815 Jun, [facility] [place] [facility] [address] [id number] [place] [address]- 3282 Jun, [facility] [place] [facility] [address] [id number] [place] [address]- 0425 Jun, [facility] [place] [facility] [address] [id number] [place] [address]- 2806 Jun, [facility] [place] [facility] [address] [id number] [place] [address]- 8026 May, [facility] [place] [facility] [address] [id number] [place] [address]- 8538 May, [facility] [place] [facility] [address] [id number] [place] [address]- 6444 May, [facility] [place] [facility] [address] [id number] [place] [address]- 9676 May, [facility] [place] [facility] [address] [id number] [place] [address]- 8978 May, [facility] [place] [facility] [address] [id number] [place] [address]- 0937 May, [facility] [place] [facility] [address] [id number] [place] [address]- 3400 May, [facility] [place] [facility] [address] [id number] [place] [address]- 3019 May, [facility] [place] [facility] [address] [id number] [place] [address]- 5811 May, [facility] [place] [facility] [address] [id number] [place] [address]- 2543 May, [facility] [place] [facility] [address] [id number] [place] [address]- 7860 May, [facility] [place] [facility] [address] [id number] [place] [address]- 5102 Apr, [facility] [place] [facility] [address] [id number] [place] [address]- 2657 Apr, [facility] [place] [facility] [address] [id number] [place] [address]- 2512 30 Mar, 2012 [facility] [address] [id number] [place] [address]- 7663 Mar, 2012 [facility] [place] [facility] [address] [id number] [place] [address]- 2882 Mar, 2012 [facility] [address] [id number] [place] [address]- 6275 Mar, 2012 [facility] [place] [facility] [address] [id number] [place] [address]- 5264 Mar, 2012 [facility] [address] [id number] [place] Jan, [facility] [address] [id number] [place] [address]- 3496 Jan, [facility] [address] [id number] [place] [address]- 9079 Jan, [facility] [address] [id number] [place] [address]- 0697 Jan, [facility] [place] [facility] [address] [id number] [place] [address]- 7812 Jan, [facility] [address] [facility] [id number] [place] [address]- 8016 Jan, [facility] [place] [facility] [address] [id number] [place] [address]- 5502 Jan, [facility] [place] [facility] [address] [id number], [place] [address]- 2802 Jan, [facility] [place] [facility] [address] [id number] [place] [address]- 2774 08 Jan, 2013 [facility] [place] [facility] [address] [id number] [place] [address]- 9395 Jan, [facility] [place] [facility] [address] [id number] [place] [address]- 2614 Dec, [facility] [place] [facility] [address] [id number] [place] [address]- 7638 Oct, [facility] [address] [id number] [place] [address]- 6069 Oct, [facility] [address] [id number] [place] [address]- 2158 Oct, [facility] [place] [facility] [address] [id number] [place] [address]- 6544 Oct, [facility] [address] [id number] [place] [address]- 7859 Oct, [facility] [address] [id number] [place] [address]- 0523 Oct, [facility] [address] [id number] [place] [address]- 0015 Sep, [facility] [address] [id number] [place] [address]- 8760 August, [facility] [address] [id number] [place] [address]- 4192 August, [facility] [address] [id number] [place] [address]- 5750 August, [facility] [place] [facility] [address] [id number] [place] [address]- 9024 August, [facility] [place] [facility] [address] [id number] [place] [address]- 4461 August, [facility] [place] [facility] [address] [id number] [place] [address]- 2427 May, [facility] [place] [facility] [address] [id number] [place] [address]- 0465 Apr, [facility] [place] [facility] [address] [id number] [place] [address]- 5915 Apr, [facility] [place] [facility] [address] [id number], [place] [address]- 4165 Apr, [facility] [address] [id number] [place] [address]- 3865 Apr, [facility] [address] [id number] [place] [address]- 5841 Apr, [facility] [address] [place] [id number] Mar, [facility] [address] [id number] [place] [address]- 6515 Mar, [facility] [address] [id number] [place] [address]- 7305 Mar, [facility] [address] [id number] [place] [address]- 1076 Mar, [facility] [address] [id number] [place] [address]- 7581 17 Mar, 2012 [facility] [address] [id number] [place] [address]- 0232 17 Mar, 2012 [facility] [address] [id number] [place] [address]- 3751 Mar, [facility] [address] [id number] [place] [address]- 8860 Mar, [facility] [address] [id number] [place] [address]- 9589 Mar, [facility] [address] [id number] [place] [address]- 2902 13 Mar, 2012 [facility] [address] [id number] [place] [address]- 2712 Mar, [facility] [address] [id number] [place] [address]- 6301 Mar, [facility] [address] [id number] [place] [address]- 9241 10 Mar, 2012 [facility] [address] [id number] [place] [address]- 5641 Mar, [facility] [place] [facility] [address] [id number] [place] 7877 Mar, [facility] [place] [facility] [address] [id number] [place] 7936 Mar, [facility] [place] [facility] [address] [id number] [place] [address]- 5091 Mar, [facility] [place] [facility] [address] [id number] [place] [address]- 7091 Mar, [facility] [place] [facility] [address] [id number] [place] [address]- 6530 Mar, [facility] [place] [facility] [address] [id number] [place] [address]- 2830 Mar, [facility] [place] [facility] [address] [facility] [id number] [place] [address]- 1709 Feb, [facility] [place] [facility] [address] [id number] [place] [address]- 8546 Feb, [facility] [place] [facility] [address] [facility] [id number] [place] [address]- 1501 Feb, [facility] [place] [facility] [address] [facility] [id number] [place] [address]- 4780 Feb, [facility] [place] [facility] [address] [facility] [id number] [place] [address]- 4625 Jan, [facility] [place] [facility] [address] [id number] [place] [address]- 5090 Jan, [facility] [place] [facility] [address] [id number] [place] [address]- 5365 Jan, [facility] [place] [facility] [address] [facility] [id number] [place] [address]- 7803 Jan, [facility] [place] [facility] [address] [facility] [id number] [place] 3981 Jan, [facility] [place] [facility] [address] [id number] [place] [address]- 8138 Jan, [facility] [place] [facility] [address] [id number] [place] [address]- 1136 Jan, [facility] [place] [facility] [address] [id number] [place] [address]- 4449 Jan, [facility] [place] [facility] [address] [id number] [place] [address]- 1277 Jan, [facility] [place] [facility] [address] [id number] [place] [address]- 6065 27 Dec, 2011 [facility] [place] [facility] [address] [id number] [place] [address]- 9606 14 Dec, 2011 [facility] [place] [facility] [address] [id number] [place] [address]- 7387 Dec, [facility] [place] [facility] [address] [id number] [place] [address]- 4724 Dec, [facility] [place] [facility] [address] [id number] [place] [address]- 7813 Dec, [facility] [place] [facility] [address] [id number] [place] [address]- 1902 Nov, [facility] [place] [facility] [address] [id number] [place] [address]- 5036 Nov, [facility] [place] [facility] [address] [id number] [place] [address]- 9054 Nov, [facility] [place] [facility] [address] [id number] [place] [address]- 3373 Nov, [facility] [place] [facility] [address] [id number] [place] [address]- 0123 Nov, [facility] [place] [facility] [address] [id number] [place] [address]- 8873 Nov, [facility] [place] [facility] [address] [id number] [place] [address]- 2546 Nov, [facility] [place] [facility] [address] [id number] [place] [address]- 7495 Nov, [facility] [place] [facility] [address] [id number] [place] [address]- 1663 Nov, [facility] [place] [facility] [address] [id number] [place] [address]- 9967 Oct, [facility] [place] [facility] [address] [id number] [place] [address]- 5302 Oct, [facility] [place] [facility] [address] [id number] [place] [address]- 4180 Sep, [facility] [place] [facility] [address] [id number] [place] [address]- 7096 Sep, [facility] [place] [facility] [address] [id number] [place] [address]- 2342 Sep, [facility] [place] [facility] [address] [id number] [place] [address]- 0860 August, [facility] [place] [facility] [address] [id number] [place] [address]- 1341 30 Jul, 2011 [facility] [place] [facility] [address] [id number] [place] [address]- 9689 27 Jul, 2011 [facility] [place] [facility] [address] [id number] [place] [address]- 9023 27 Jul, 2011 [facility] [place] [facility] [address] [id number] [place] [address]- 1464 18 Jul, 2011 [facility] [place] [facility] [address] [id number] [place] [address]- 0104 16 Jul, 2011 [facility] [place] [facility] [address] [id number] [place] [address]- 9656 16 Jul, 2011 [facility] [place] [facility] [address] [id number] [place] [address]- 7322 16 Jul, 2011 [facility] [place] [facility] [address] [id number] [place] [address]- 8406 14 Jul, 2011 [facility] [address] [id number] [place] [address]- 8056 12 Jul, 2011 [facility] [address] [id number] [place] [address]- 2616 19 Jun, 2011 [facility] [address] [id number] [place] [address]- 2466 18 Jun, 2011 [facility] [address] [id number] [place] [address]- 8427 15 Jun, 2011 [facility] [address] [id number] [place] [address]- 3666 12 Jun, 2011 [facility] [address] [id number] [place] [address]- 7986 Jun, [facility] [address] [id number] [place] [address]- 0970 Jun, [facility] [address] [id number] [place] [address]- 5237 08 Jun, 2011 [facility] [address] [id number] [place] [address]- 2836 Jun, [facility] [address] [id number] [place] [address]- 5720 May, [facility] [address] [id number] [place] [address]- 8566 May, [facility] [address] [id number] [place] [address]- 7676 May, [facility] [place] [place] [facility] [address] [id number] [place] [address] Apr, [facility] [place] [facility] [address] [id number] [place] [address] Apr, [facility] [place] [facility] [address] [id number] [place] [address] Apr, [facility] [place] [facility] [address] [id number] [place] [address] 26 Mar, 2011 [facility] [place] [facility] [address] [id number] [place] [address] Mar, [facility] [place] [facility] [address] [id number] [place] [address] 15 Mar, 2011 [facility] [place] [facility] [address] [id number] [place] [address] 13 Mar, 2011 [facility] [place] [facility] [address] [id number] [place] [address] Mar, [facility] [place] [facility] [address] [id number] [place] [address] Mar, [facility] [place] [facility] [address] [id number] [place] [address] Mar, [facility] [place] [facility] [address] [id number] [place] [address] Mar, [facility] [place] [facility] [address] [id number] [place] [address] Mar, [facility] [place] [facility] [address] [id number] [place] [address] Mar, [facility] [place] [facility] [address] [id number] [place] [address] Mar, [facility] [place] [facility] [address] [id number], [place] [address] Mar, [facility] [place] [facility] [address] [id number] [place] [address] Mar, [facility] [place] [facility] [address] [id number] [place] [address] 05 Mar, 2011 [facility] [place] [facility] [address] [id number] [place] [address] Feb, [facility] [place] [facility] [address] [id number] [place] [address] 22 Feb, 2011 [facility] [place] [facility] [address] [id number] [place] [address] 14 Feb, 2011 [facility] [place] [facility] [address] [id number] [place] [address] 29 Jan, 2011 [facility] [place] [facility] [address] [id number] [place] [address] Jan, [facility] [place] [facility] [address] [id number] [place] [address] Oct, [facility] [place] [facility] [address] [id number] [place] [address] Sep, [facility] [place] [facility] [address] [id number] [place] [address] Mar, [facility] [place] [facility] [address] [id number] [place] [address] 16 Mar, 2010 [facility] [place] [facility] [address] [id number] [place] [address] 16 Feb, 2010 [facility] [place] [facility] [address] [id number] [place] [address] Feb, [facility] [place] [facility] [address] [id number] [place] [address] Jan, [facility] [place] [facility] [address] [id number] [place] [address] Jan, [facility] [place] [facility] [address] [id number] [place] [address] Mar, [facility] [place] [facility] [address] [id number] [place] [address] Feb, [facility] [place] [facility] [address] [id number] [place] [address] Feb, [facility] [place] [facility] [address] [id number] [place] [address] Feb, [facility] [address] [facility] [id number], [place] [address] Feb, [facility] [address] [facility] [id number], [place] [address] Jan, [facility] [address] [facility] [id number], [place] [address] Dec, [facility] [address] [facility] [id number], [place] [address] Nov, IMMUNIZATIONS No Known Immunizations SOCIAL [...] Medications MEDICAL (GENERAL) HISTORY Type Description Date Medical History 12/2017 Osteomyelitis of right 2nd toe Hospitalization History [facility] March 2015
--- OUTSIDE RECORDS SUMMARY | 2018-02-25 07:39 | XMS REPORT ---
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 Name Role Phone STEPHANIE CHRISTIANSEN Unavailable PROBLEMS Type Condition ICD9-CM Code KKA39-UK Code Onset Dates Condition Status SNOMED Code Problem Hyperlipidemia, unspecified hyperlipidemia type E78.5 Active 39689975 Problem Long-term insulin use Z79.4 Active 907792887 Problem Abnormal carotid ultrasound R93.8 Active 680965956 Problem Type 2 diabetes mellitus with complication E11.8 Active 65853669 Problem Positive TB test R76.11 Active 168115750 Problem Vascular dementia with behavior disturbance F01.51 Active 200033961 Problem PVD (peripheral vascular disease) I73.9 Active 111066476 Problem Pain R52 Active 59694376 Problem Other chronic osteomyelitis of left foot M86.672 Active 301049401 Problem Nicotine dependence, unspecified, uncomplicated F17.200 Active 479531812 Problem Peripheral vascular disease due to secondary diabetes E13.51 Active 9261253 Problem Nonintractable epilepsy without status epilepticus, unspecified epilepsy type G40.909 Active 579293621 Problem Recurrent major depressive disorder, remission status unspecified F33.9 Active 70320704 Problem Anxiety F41.9 Active 13382066 Problem Generalized anxiety disorder F41.1 Active 62446456 Problem Vascular dementia F01.50 Active 369149021 Problem Pseudobulbar affect F48.2 Active 26299658 Problem Coronary artery disease involving crow coronary artery of crow heart without angina pectoris I25.10 Active 0585641172404 Problem Gastroesophageal reflux disease without esophagitis K21.9 Active 328453221 Problem Cerebrovascular accident (CVA) due to other mechanism I63.8 Active 945352943 Problem Pulmonary emphysema, unspecified emphysema type J43.9 Active 48293333 Problem Neuropathy G62.9 Active 977952250 Problem Depression F32.9 Active 66695611 Problem Essential hypertension I10 Active 81495103 Problem Acquired hypothyroidism E03.9 Active 050734629 ALLERGIES No Information ENCOUNTERS Encounter Location Date Diagnosis [facility] [address] [place] [id number] Dec, Crush injury T14.8XXA [facility] [place] [facility] [address], [place] [address] 14 Dec, 2017 Generalized anxiety disorder F41.1 [facility] [place] [facility] [id number] [place] [address] 69850- 5017 14 Dec, 2017 [facility] [place] [facility] [id number] [place] [address] 57658- 5714 Dec, [facility] [place] [facility] [id number] [place] [address] 98526- 6222 Nov, Generalized anxiety disorder F41.1 [facility] [id number] [place] [address] 62546- 2711 Oct, Generalized anxiety disorder F41.1 [facility] [place] [facility] [id number] [place] [address] 84779- 9904 Oct, Generalized anxiety disorder F41.1 [facility] [address] [place] [id number] Oct, Sepsis, due to unspecified organism A41.9 ; Generalized anxiety disorder F41.1 ; Pain R52 and Depression F32.9 [facility] [place] [facility] [address], [place] [address] 1040 Oct, [facility] [place] [facility] [id number] [place] [address] 27195- 7950 Oct, [facility] [place] [facility] [id number] [place] [address] 22657- 4168 Sep, Generalized anxiety disorder F41.1 [facility] [place] [facility] [address] [place] [address] 22499- 3555 Sep, [facility] [place] [facility] [id number] [place] [address] 96830- 1693 Sep, Type 2 diabetes mellitus with complication E11.8 [facility] [place] [facility] [address], [place] [address] 55[address] August, Generalized anxiety disorder F41.1 [facility] [place] [facility] [address], [place] [address] August, [facility] [address] [id number] August, Type 2 diabetes mellitus with complication E11.8 ; Vascular dementia with behavior disturbance F01.51 ; Long-term insulin use Z79.4 and Nicotine dependence, unspecified, uncomplicated F17.200 [facility] [place] [facility] [id number], [place] [address] 0604 August, Generalized anxiety disorder F41.1 [facility] [place] [facility] [address], [place] [address] 5649 Jul, Generalized anxiety disorder F41.1 [facility] [id number] [address] Jun, Generalized anxiety disorder F41.1 [facility] [id number] [address] Jun, [facility] [id number] [id number] May, [facility] [facility] [address] [address] May, [facility] [id number] [address] May, Generalized anxiety disorder F41.1 [facility] [place] [facility] [id number] [address] [address]77 Apr, [facility] [address] [id number] Apr, Other chronic osteomyelitis of left foot M86.672 ; Type 2 diabetes mellitus with complication E11.8 ; Vascular dementia F01.50 ; Long-term insulin use Z79.4 ; PVD (peripheral vascular disease) I73.9 and Nicotine abuse 305.1 [facility] [facility] [address] [address] 8467 Apr, [facility] [id number] [place] [id number] Apr, [facility] [facility] [id number] [place] [address] 54205- 3116 Apr, Pain R52 and Generalized anxiety disorder F41.1 [facility] [place] [facility] [id number] [place] [address] 00260- 8063 Mar, [facility] [facility] [id number] [place] [address] 03486- 1394 Mar, Pain R52 and Generalized anxiety disorder F41.1 [facility] [address] [place] [id number] Feb, Depression F32.9 ; Type 2 diabetes mellitus with complication E11.8 and Nicotine dependence, unspecified, uncomplicated F17.200 [facility] [facility] [id number] [place] [address] 22269- 6726 Feb, Generalized anxiety disorder F41.1 and Pain R52 [facility] [place] [facility] [address] [place] [address] 22203- 7408 Feb, [facility] [place] [facility] [id number] [place] [address] 07358- 0454 Jan, [facility] [place] [facility] [address] [place] [address] 44273- 5754 Jan, Generalized anxiety disorder F41.1 and Pain R52 [facility] [place] [facility] [address] [place] [address] 06152- 3448 Jan, [facility] [id number] [place] [address] [id number] Dec, Generalized anxiety disorder F41.1 and Pain R52 [facility] [address] [place] [address] Dec, Vascular dementia F01.50 ; Pain of left leg M79.605 ; Pain in right leg M79.604 and Type 2 diabetes mellitus with complication E11.8 [facility] [facility] [id number] [place] [address] 53727- 8031 11 Dec, 2016 Pain R52 [facility] [facility] [id number] [place] [address] 78948- 3939 Dec, [facility] [facility] [id number] [place] [address] 28854- 9221 Nov, [facility] [facility] [id number] [place] [address] 14073- 4774 Nov, Pain R52 and Generalized anxiety disorder F41.1 [facility] [address] [place] [id number] Nov, Depression F32.9 ; Vascular dementia with behavior disturbance F01.51 and Anxiety F41.9 [facility] [facility] [id number] [place] [address] 43821- 0229 Nov, Pain R52 and Generalized anxiety disorder F41.1 [facility] [facility] [id number] [place] [address] 35336- 5612 Oct, Generalized anxiety disorder F41.1 [facility] [facility] [id number] [place] [address] 04545- 4120 Oct, Pain R52 [facility] [facility] [id number] [place] [address] 63435- 4103 Sep, [facility] [address] [place] [id number] Sep, Generalized anxiety disorder F41.1 [facility] [facility] [address] [place] [address] 45615- 5234 Sep, Pain R52 [facility] [facility] [id number] [place] [address] 01659- 7325 Sep, Generalized anxiety disorder F41.1 [facility] [id number] [place] [address] 09588- 0317 August, [facility] [id number] [place] [address] 52231- 0739 August, [facility] [facility] [address], [place] [address]- 7558 August, Pain R52 [facility] [address] [place] [address] 75963- 9676 August, Generalized anxiety disorder F41.1 [facility] [id number] [place] [address] [id number] August, Generalized anxiety disorder F41.1 [facility] [facility] [address] [place] [address] 57368- 0069 Jul, Pain R52 [facility] [id number] [place] [address] 423868- 5420 Jul, [facility] [place] [id number] [place] [address] [id number] Jul, [facility] [facility] [id number] [place] [address] 44823- 8215 Jun, [facility] [place] [id number] [place] [address] [id number] Jun, Depression F32.9 [facility] [facility] [address] [place] [address] 13801- 3930 Jun, Pain R52 [facility] [facility] [address] [place] [address] 69861- 3131 Jun, [facility] [address] [place] [id number] Jun, Vascular dementia F01.50 and Depression F32.9 [facility] [facility] [id number], [place] [address]- 8731 May, Pain R52 [facility] [facility] [address] [place] [address] 14459- 6578 May, [facility] [facility] [address], [place] [address]- 4689 May, Pseudobulbar affect F48.2 [facility] [facility] [address], [place] [address]- 9497 May, [facility] [facility] [id number] [place] [address] 84020- 6158 May, PVD (peripheral vascular disease) I73.9 [facility] [address] [place] [address] 25906- 6677 May, Vascular dementia with behavior disturbance F01.51 [facility] [facility] [address] [place] [address] 25971- 4882 May, Vascular dementia with behavior disturbance F01.51 [facility] [id number] [place] [address] 28790- 8761 Apr, [facility] [facility] [id number] [place] [address] 46156- 9740 Apr, Pain R52 [facility] [address] [place] [id number] Apr, Generalized anxiety disorder F41.1 ; PVD (peripheral vascular disease) I73.9 and Type 2 diabetes mellitus with complication E11.8 [facility] [address] [place] [address] 65692- 8984 Apr, Vascular dementia with behavior disturbance F01.51 [facility] [facility] [address] [place] [address] 44953- 7906 Apr, [facility] [address] [place] [address] 61059- 0657 Apr, Vascular dementia with behavior disturbance F01.51 [facility] [address], [place] [address]- 6678 Apr, [place] [id number] [place] [address] [id number] Mar, [facility] [facility] [address] [place] [address] 43169- 7056 Mar, Type 2 diabetes mellitus with complication E11.8 ; Vascular dementia with behavior disturbance F01.51 and Depression F32.9 [facility] [facility] [address], [place] [address]- 7158 Mar, [facility] [facility] [id number] [place] [address] 84364- 3935 Feb, [facility] [facility] [id number] [place] [address] 48571- 0546 Feb, Viral illness B34.9 [facility] [id number] [place] [address] 49868- 5177 Jan, Diabetes 250.00 [facility] [id number] [place] [address] 84914- 9013 Jan, [facility] [facility] [id number] [place] [address] 25721- 0900 Jan, [facility] [facility] [id number] [place] [address] 15863- 9791 Jan, [facility] [address] [id number] Jan, Vascular dementia with behavior disturbance F01.51 and Type 2 diabetes mellitus with complication E11.8 [facility] [id number] [place] [address] 90967- 8183 Jan, Pain R52 [facility] [facility] [id number] [place] [address] 15553- 0705 Jan, Pain R52 [facility] [facility] [id number] [place] [address] 15723- 7214 Dec, [facility] [facility] [address] [place] [address] 14761- 5432 Nov, [facility] [address] [id number] Nov, Type 2 diabetes mellitus with complication E11.8 [facility] [facility] [address], [place] [address]- 6179 Nov, [facility] [facility] [id number] [place] [address] 33986- 2653 Oct, [facility] [facility] [id number] [place] [address] 00102- 1270 Oct, [facility] [facility] [id number] [place] [address] 04217- 6960 Oct, Vascular dementia with behavior disturbance F01.51 and Type 2 diabetes mellitus with complication E11.8 [facility] [facility] [id number] [place] [address] 66850- 4914 August, Type 2 diabetes mellitus with complication E11.8 and Vascular dementia with behavior disturbance F01.51 [place] [id number] [place] [address] 59884- 0747 August, Vascular dementia F01.50 [place] [facility] [id number] [place] [address] 68686- 6186 August, Vascular dementia with behavior disturbance F01.51 [facility] [facility] [id number] [place] [address] 23555- 0797 Jul, Vascular dementia with behavior disturbance F01.51 [facility] [facility] [id number] [place] [address] 36804- 8861 Jun, Vascular dementia F01.50 [facility] [facility] [address] [place] [address] 01602- 5111 Jun, Type 2 diabetes mellitus with complication E11.8 ; Long- term insulin use Z79.4 and Vascular dementia with behavior disturbance F01.51 [facility] [facility] [address], [place] [address]- 3600 Jun, Vascular dementia with behavior disturbance F01.51 [facility] [facility] [id number] [place] [address] 68218- 3900 Jun, Vascular dementia F01.50 [facility] [facility] [id number] [place] [address] 92550- 6531 Apr, [facility] [facility] [id number] [place] [address] 32377- 6786 Apr, [facility] [facility] [id number], [place] [address]- 6869 Apr, [facility] [facility] [address], [place] [address]- 1646 Apr, Type 2 diabetes mellitus with complication E11.8 ; Depression F32.9 and Long-term insulin use Z79.4 [facility] [facility] [address], [place] [address]- 2066 Mar, [facility] [address] [place] [id number] Mar, Depression F32.9 ; Type 2 diabetes mellitus with complication E11.8 and Long-term insulin use Z79.4 [facility] [facility] [address], [place] [address]- 2216 Feb, [facility] [facility] [address], [place] [address]- 9239 Feb, Hyperthyroidism E05.90 [facility] [facility] [address], [place] [address]- 9926 Feb, Hyperthyroidism E05.90 [facility] [facility] [address], [place] [address]- 3664 Feb, [facility] [facility] [id number], [place] [address]- 1085 Jan, [facility] [facility] [id number], [place] [address]- 4289 Dec, Nicotine addiction 305.1 [facility] [facility] [id number], [place] [address]- 3482 Oct, Nicotine abuse 305.1 [facility] [facility] [id number], [place] [address]- 2996 Oct, [facility] [facility] [id number], [place] [address]- 5954 August, [facility] [address] [facility] [place] [id number] August, History of drug abuse 305.93 and Diabetes 250.00 [facility] [address] [facility] [id number] [place] [address]- 2667 14 Jul, 2014 [facility] [address] [facility] [id number] [place] [address]- 8498 Jul, [facility] [address] [facility] [id number] [place] [address]- 3035 Jun, [facility] [address] [facility] [id number] [place] [address]- 9177 Jun, [facility] [address] [place] [address]- 0127 Jun, [facility] [id number] [place] [address]- 3265 Jun, [facility] [address], [place] [address]- 2065 Jun, [facility] [id number] [place] [address]- 0169 Jun, [facility] [address], [place] [address]- 7594 May, [facility] [address], [place] [address]- 4912 May, [facility] [address], [place] [address]- 2017 May, [facility] [address] [facility] [id number], [place] [address]- 6005 May, [facility] [id number] 8566 May, [facility] [id number] 7833 Apr, [facility] [address], [place] [address]- 8923 Apr, [facility] [address] [facility] [id number] Apr, [facility] [address] [id number] [place] [address]- 3397 Apr, [facility] [address] [id number] [place] [address]- 1280 Apr, [facility] [address] [id number] [place] [address]- 0210 Apr, [facility] [place] [facility] [address] [id number] [place] [address]- 5344 Apr, [facility] [address] [id number] [place] [address]- 0272 Apr, [facility] [place] [facility] [address] [id number] [place] [address]- 0686 Mar, [facility] [place] [facility] [address] [id number] [place] [address]- 8432 Mar, [facility] [place] [facility] [address] [id number] [place] [address]- 1045 Mar, [facility] [place] [facility] [address] [id number] [place] [address]- 8963 Mar, [facility] [place] [facility] [address] [id number] [place] [address]- 3694 Mar, [facility] [place] [facility] [address] [id number], [place] [address]- 4469 Mar, [facility] [place] [facility] [address] [id number] [place] [address]- 1287 Mar, [facility] [place] [facility] [address] [id number] [place] [address]- 0101 Mar, [facility] [place] [facility] [address] [id number] [place] [address]- 3614 Feb, [facility] [place] [facility] [address] [id number] [place] [address]- 0631 Feb, [facility] [place] [facility] [address] [id number] [place] [address]- 7901 Feb, [facility] [place] [facility] [address] [id number] [place] [address]- 2428 Feb, [facility] [place] [facility] [address] [id number] [place] [address]- 6973 Feb, [facility] [address] [place] [id number] Feb, [facility] [place] [facility] [address] [id number] [place] [address]- 9641 Feb, [facility] [place] [facility] [address] [id number] [place] [address]- 0556 Feb, [facility] [place] [facility] [address] [id number] [place] [address]- 1975 Feb, [facility] [place] [facility] [address] [id number] [place] [address] Feb, [facility] [place] [facility] [address] [id number] [place] [address] Jan, [facility] [place] [facility] [address] [id number] [place] [address] 30 Jan, 2014 [facility] [place] [facility] [address] [id number] [place] [address] Jan, [facility] [place] [facility] [address] [id number], [place] [address] 17 Jan, 2014 [facility] [place] [facility] [address] [id number] [place] [address] 16 Jan, 2014 [facility] [place] [facility] [address] [id number] [place] [address] 16 Jan, 2014 [facility] [place] [facility] [address] [id number] [place] [address] 15 Jan, 2014 [facility] [place] [facility] [address] [id number] [place] [address] 13 Jan, 2013 [facility] [place] [facility] [address] [id number] [place] [address] Jan, 2013 [facility] [place] [facility] [address] [id number] [place] [address] Jan, 2013 [facility] [place] [facility] [address] [id number] [place] [address] Jan, 2013 [facility] [place] [facility] [address] [id number] [place] [address] Jan, [facility] [place] [facility] [address] [id number] [place] [address] Jan, [facility] [place] [facility] [address] [id number] [place] [address] Jan, [facility] [place] [facility] [address] [id number] [place] [address] Jan, [facility] [place] [facility] [address] [id number] [place] [address] Jan, [facility] [place] [facility] [address] [id number] [place] [address] Jan, [facility] [place] [facility] [address] [id number] [place] [address] Dec, 2013 [facility] [place] [facility] [address] [id number] [place] [address] 19 Dec, 2013 [facility] [place] [facility] [address] [id number] [place] [address] 11 Dec, 2013 [facility] [place] [facility] [address] [id number] [place] [address] Dec, 2013 [facility] [place] [facility] [address] [id number] [place] [address]- [address] Dec, 2013 [facility] [place] [facility] [address] [id number] [place] [address] Dec, 2013 [facility] [place] [facility] [address] [id number] [place] [address] 08 Dec, 2013 [facility] [place] [facility] [address] [id number] [place] [address] Dec, 2013 [facility] [place] [facility] [address] [id number] [place] [address] Dec, 2013 [facility] [place] [facility] [address] [id number] [place] [address] Dec, 2013 [facility] [place] [facility] [address] [id number] [place] [address] Dec, 2013 [facility] [place] [facility] [address] [id number] [place] [address] 8611 Dec, 2013 [facility] [place] [facility] [address] [id number] [place] [address]- 4344 Dec, 2013 [facility] [place] [facility] [address] [id number] [place] [address]- 3[address] Dec, 2013 [facility] [place] [facility] [address] [id number] [place] [address]- 0203 Nov, [facility] [place] [facility] [address] [id number] [place] [address]- 9126 Nov, [facility] [place] [facility] [address] [id number] [place] [address]- 9318 Nov, [facility] [place] [facility] [address] [id number] [place] [address]- 0205 Nov, [facility] [place] [facility] [address] [id number] [place] [address]- 8368 Nov, [facility] [place] [facility] [address] [id number] [place] [address]- 1504 Nov, [facility] [place] [facility] [address] [id number] [place] [address]- 0798 Nov, [facility] [place] [facility] [address] [id number] [place] [address]- 5044 Nov, [facility] [place] [facility] [address] [id number] [place] [address]- 4184 Nov, [facility] [place] [facility] [address] [id number] [place] [address]- 7456 Nov, [facility] [place] [facility] [address] [id number] [place] [address]- 0692 Nov, [facility] [place] [facility] [address] [id number] [place] [address]- 6595 Nov, [facility] [place] [facility] [address] [id number] [place] [address]- 8505 Nov, [facility] [place] [facility] [address] [id number] [place] [address]- 8683 Nov, [facility] [place] [facility] [address] [id number] [place] [address]- 5026 Oct, [facility] [place] [facility] [address] [id number] [place] [address]- 6250 Oct, [facility] [place] [facility] [address] [id number] [place] [address]- 9935 Oct, [facility] [place] [facility] [address] [id number] [place] [address]- 2053 Oct, [facility] [place] [facility] [address] [id number] [place] [address]- 1494 Oct, [facility] [place] [facility] [address] [id number] [place] [address]- 6231 Oct, [facility] [place] [facility] [address] [id number] [place] [address]- 6996 Oct, [facility] [place] [facility] [address] [id number] [place] [address]- 8916 Oct, [facility] [place] [facility] [address] [id number] [place] [address]- 5177 Oct, [facility] [place] [facility] [address] [id number] [place] [address]- 4313 Oct, [facility] [place] [facility] [address] [id number] [place] [address]- 0334 Oct, [facility] [place] [facility] [address] [id number] [place] [address]- 9561 Oct, [facility] [place] [facility] [address] [id number] [place] [address]- 1115 Oct, [facility] [place] [facility] [address] [id number] [place] [address]- 6596 Oct, [facility] [place] [facility] [address] [id number] [place] [address]- 6521 Oct, [facility] [place] [facility] [address] [id number] [place] [address]- 1484 Oct, [facility] [place] [facility] [address] [id number] [place] [address]- 9450 Oct, [facility] [place] [facility] [address] [id number] [place] [address]- 9452 Oct, [facility] [place] [facility] [address] [id number] [place] [address]- 0421 Oct, [facility] [place] [facility] [address] [id number] [place] [address]- 3475 Oct, [facility] [place] [facility] [address] [id number] [place] [address]- 3354 Sep, [facility] [place] [facility] [address] [id number] [place] [address]- 2785 Sep, [facility] [place] [facility] [address] [id number] [place] [address]- 4613 Sep, [facility] [place] [facility] [address] [id number] [place] [address]- 1032 Sep, [facility] [place] [facility] [address] [id number] [place] [address]- 2546 Sep, [facility] [place] [facility] [address] [id number] [place] [address]- 0114 Sep, [facility] [place] [facility] [address] [id number] [place] [address]- 0454 August, [facility] [place] [facility] [address] [id number] [place] [address]- 1586 August, [facility] [place] [facility] [address] [id number] [place] [address]- 5416 Jul, [facility] [place] [facility] [address] [id number] [place] [address]- 8924 Jul, [facility] [place] [facility] [address] [id number] [place] [address]- 3258 Jul, [facility] [place] [facility] [address] [id number] [place] [address]- 4936 Jul, [facility] [place] [facility] [address] [id number] [place] [address]- 5497 Jul, [facility] [place] [facility] [address] [id number] [place] [address]- 1535 Jul, [facility] [place] [facility] [address] [id number] [place] [address]- 2563 Jul, [facility] [place] [facility] [address] [id number] [place] [address]- 1994 Jul, [facility] [place] [facility] [address] [id number] [place] [address]- 5648 Jun, [facility] [place] [facility] [address] [id number] [place] [address]- 9775 Jun, [facility] [place] [facility] [address] [id number] [place] [address]- 0611 Jun, [facility] [place] [facility] [address] [id number] [place] [address]- 4722 Jun, [facility] [place] [facility] [address] [id number] [place] [address]- 8544 Jun, [facility] [place] [facility] [address] [id number] [place] [address]- 8304 May, [facility] [place] [facility] [address] [id number] [place] [address]- 2156 May, [facility] [place] [facility] [address] [id number] [place] [address]- 6746 May, [facility] [place] [facility] [address] [id number] [place] [address]- 5174 May, [facility] [place] [facility] [address] [id number] [place] [address]- 6898 May, [facility] [place] [facility] [address] [facility] [id number] [place] [address]- 4395 May, [facility] [place] [facility] [address] [facility] [id number] [place] [address]- 9501 May, [facility] [place] [facility] [address] [facility] [id number] [place] [address]- 6461 May, [facility] [place] [facility] [address] [facility] [id number] [place] [address]- 7982 May, [facility] [place] [facility] [address] [facility] [id number] [place] [address]- 5472 May, [facility] [place] [facility] [address] [facility] [id number], [place] [address]- 7759 May, [facility] [place] [facility] [address] [facility] [id number] [place] [address]- 6505 Apr, [facility] [place] [facility] [address] [id number] [place] [address]- 8789 Apr, [facility] [place] [facility] [address] [facility] [id number], [place] [address]- 8658 Mar, [facility] [place] [facility] [address] [facility] [id number], [place] [address]- 7819 Mar, [facility] [place] [facility] [address] [id number] [place] [address]- 3825 Mar, [facility] [place] [facility] [address] [id number] [place] [address]- 2679 Mar, [facility] [place] [facility] [address] [id number] [place] [address]- 7059 Mar, [facility] [place] [facility] [address] [id number] [place] [address]- 0580 Jan, [facility] [place] [facility] [address] [id number] [place] [address]- 0764 Jan, [facility] [place] [facility] [address] [id number] [place] [address]- 7316 Jan, [facility] [place] [facility] [address] [facility] [id number] [place] [address]- 9266 Jan, [facility] [place] [facility] [address] [facility] [id number] [place] [address]- 5532 Jan, [facility] [place] [facility] [address] [facility] [id number] [place] [address]- 9415 Jan, [facility] [place] [facility] [address] [facility] [id number], [place] [address]- 6252 Jan, [facility] [place] [facility] [address] [facility] [id number], [place] [address]- 3002 Jan, [facility] [place] [facility] [address] [facility] [id number], [place] [address]- 6197 Jan, [facility] [place] [facility] [address] [id number], [place] [address]- 8202 Jan, [facility] [place] [facility] [address] [facility] [id number], [place] [address]- 8560 Dec, [facility] [place] [facility] [address] [facility] [id number] [place] [address]- 9738 Oct, [facility] [place] [facility] [address] [id number] [place] [address]- 5300 Oct, [facility] [address] [id number] [place] [address]- 3065 Oct, [facility] [place] [facility] [address] [id number] [place] [address]- 2140 Oct, [facility] [address] [id number] [place] [address]- 8844 Oct, [facility] [place] [facility] [address] [id number] [place] [address]- 0766 Oct, [facility] [address] [id number] [place] [address]- 2866 Sep, [facility] [address] [id number] [place] [address]- 6765 August, [facility] [address] [id number] [place] [address]- 2318 August, [facility] [address] [id number] [place] [address]- 1888 August, [facility] [address] [id number] [place] [address]- 2420 August, [facility] [address] [id number] [place] [address]- 0252 August, [facility] [place] [facility] [address] [id number] [place] [address]- 0579 May, [facility] [place] [facility] [address] [id number] [place] [address]- 7371 Apr, [facility] [place] [facility] [address] [id number] [place] [address]- 3750 Apr, [facility] [place] [facility] [address] [id number] [place] [address]- 2546 Apr, [facility] [place] [facility] [address] [id number] [place] [address]- 3011 Apr, [facility] [address] [id number] [place] [address]- 2028 Apr, [facility] [place] [id number] Mar, [facility] [address] [id number] [place] [address]- 8182 Mar, [facility] [address] [id number] [place] [address]- 9365 Mar, [facility] [address] [id number] [place] [address]- 3175 Mar, [facility] [address] [id number] [place] [address]- 9083 Mar, [facility] [address] [id number] [place] [address]- 0234 Mar, [facility] [address] [id number] [place] [address]- 0437 Mar, [facility] [address] [id number] [place] [address]- 9392 Mar, [facility] [address] [id number] [place] [address]- 1665 Mar, [facility] [address] [id number] [place] [address]- 0095 Mar, [facility] [address] [id number] [place] [address]- 9099 Mar, [facility] [address] [id number] [place] [address]- 0765 Mar, [facility] [address] [id number] [place] [address]- 4639 Mar, [facility] [address] [id number] [place] [address] Mar, [facility] [address] [id number], [place] [address]- 3002 Mar, [facility] [place] [facility] [address] [id number] [place] [address]- 8467 Mar, [facility] [place] [facility] [address] [id number] [place]758 Mar, [facility] [place] [facility] [address] [id number] [place] [address]- 0338 Mar, [facility] [place] [facility] [address] [id number] [place] [address]- 1807 Mar, [facility] [place] [facility] [address] [id number] [place] [address]- 5245 Mar, [facility] [place] [facility] [address] [id number] [place] [address]- 4544 Feb, [facility] [place] [facility] [address] [id number] [place] [address]- 0632 Feb, [facility] [place] [facility] [address] [id number], [place] [address]- 1102 Feb, [facility] [place] [facility] [address] [id number], [place] [address]- 8319 Feb, [facility] [place] [facility] [address] [id number], [place] [address]- 6027 Jan, [facility] [place] [facility] [address] [id number], [place] [address]- 4106 Jan, [facility] [place] [facility] [address] [id number], [place] [address]- 7200 Jan, [facility] [place] [facility] [address] [id number], [place] [address]- 1804 Jan, [facility] [place] [facility] [address] [facility] [id number], [place] [address]- 1128 Jan, [facility] [place] [facility] [address] [id number] [place] [address]- 3139 Jan, [facility] [place] [facility] [address] [id number] [place] [address]- 9949 12 Jan, 2012 [facility] [place] [facility] [address] [id number] [place] [address]- 0770 12 Jan, 2012 [facility] [place] [facility] [address] [id number] [place] [address]- 4996 10 Jan, 2012 [facility] [place] [facility] [address] [id number] [place] [address]- 9896 27 Dec, 2011 [facility] [place] [facility] [address] [id number] [place] [address]- 0809 14 Dec, 2011 [facility] [place] [facility] [address] [id number] [place] [address]- 7837 12 Dec, 2011 [facility] [place] [facility] [address] [id number] [place] [address]- 5155 06 Dec, 2011 [facility] [place] [facility] [address] [id number] [place] [address]- 0243 06 Dec, 2011 [facility] [place] [facility] [address] [id number] [place] [address]- 0500 Nov, [facility] [place] [facility] [address] [id number] [place] [address]- 0210 Nov, [facility] [place] [facility] [address] [id number] [place] [address]- 7839 23 Nov, 2011 [facility] [place] [facility] [address] [id number] [place] [address]- 1992 14 Nov, 2011 [facility] [place] [facility] [address] [id number] [place] [address]- 5943 13 Nov, 2011 [facility] [place] [facility] [address] [id number] [place] [address]- 5735 Nov, [facility] [place] [facility] [address] [id number] [place] [address]- 2479 08 Nov, 2011 [facility] [place] [facility] [address] [id number] [place] [address]- 9766 Nov, [facility] [place] [facility] [address] [id number] [place] [address]- 3179 Nov, [facility] [place] [facility] [address] [id number] [place] [address]- 9080 19 Oct, 2011 [facility] [place] [facility] [address] [id number] [place] [address]- 9180 13 Oct, 2011 [facility] [place] [facility] [address] [id number] [place] [address]- 8842 Sep, [facility] [place] [facility] [address] [id number] [place] [address]- 1699 Sep, [facility] [place] [facility] [address] [id number] [place] [address]- 4240 Sep, [facility] [place] [facility] [address] [id number] [place] [address]- 7196 August, [facility] [place] [facility] [address] [id number] [place] [address]- 6797 30 Jul, 2011 [facility] [place] [facility] [address] [id number] [place] [address]- 0368 27 Jul, 2011 [facility] [place] [facility] [address] [id number] [place] [address]- 6961 27 Jul, 2011 [facility] [place] [facility] [address] [id number] [place] [address]- 7955 18 Jul, 2011 [facility] [place] [facility] [address] [id number] [place] [address]- 5327 16 Jul, 2011 [facility] [place] [facility] [address] [id number] [place] [address]- 2435 16 Jul, 2011 [facility] [place] [facility] [address] [id number] [place] [address]- 4646 16 Jul, 2011 [facility] [place] [facility] [address] [id number] [place] [address]- 7597 14 Jul, 2011 [facility] [place] [facility] [address] [id number] [place] [address]- 9644 12 Jul, 2011 [facility] [address] [id number] [place] [address]- 2273 Jun, [facility] [place] [facility] [address] [id number] [place] [address]- 1141 18 Jun, 2011 [facility] [place] [facility] [address] [id number] [place] [address]- 9166 15 Jun, 2011 [facility] [place] [facility] [address] [id number] [place] [address]- 3984 12 Jun, 2011 [facility] [place] [facility] [address] [id number] [place] [address]- 1574 Jun, [facility] [place] [facility] [address] [id number] [place] [address]- 0876 Jun, [facility] [address] [id number] [place] [address]- 2286 Jun, [facility] [place] [facility] [address] [id number] [place] [address]- 9338 Jun, [facility] [place] [facility] [address] [id number] [place] [address]- 0508 May, [facility] [place] [facility] [address] [id number] [place] [address]- 2945 May, [facility] [place] [facility] [address] [id number] [place] [address]- 7449 May, [facility] [place] [facility] [address] [id number] [place] [address]- 2835 Apr, [facility] [place] [facility] [address] [id number] [place] [address]- 4908 Apr, [facility] [place] [facility] [address] [id number] [place] [address]- 4316 Apr, [facility] [place] [facility] [address] [id number] [place] [address]- 3157 Mar, [facility] [place] [facility] [address] [id number] [place] [address]- 0957 Mar, [facility] [address] [id number] [place] [address]456 Mar, [facility] [address] [id number] [place] [address]- 5786 Mar, [facility] [address] [id number] [place] [address]- 7476 Mar, [facility] [address] [id number] [place] [address]- 4024 Mar, [facility] [address] [id number] [place] [address]- 8437 Mar, [facility] [address] [id number] [place] [address] Mar, [facility] [address] [id number] [place] [address] Mar, [facility] [address] [id number] [place] [address] Mar, [facility] [address] [id number] [place] [address] Mar, [facility] [place] [facility] [address] [id number] [place] [address] Mar, [facility] [place] [facility] [address] [id number] [place] [address] Mar, [facility] [place] [facility] [address] [id number] [place] [address] Mar, [facility] [place] [facility] [address] [id number] [place] [address] Feb, [facility] [place] [facility] [address] [id number] [place] [address] Feb, [facility] [place] [facility] [address] [id number] [place] [address] 14 Feb, 2011 [facility] [place] [facility] [address] [id number] [place] [address] 29 Jan, 2011 [facility] [place] [facility] [address] [id number] [place] [address] Jan, [facility] [place] [facility] [address] [id number] [place] [address] Oct, [facility] [place] [facility] [address] [id number] [place] [address] Sep, [facility] [place] [facility] [address] [id number] [place] [address] Mar, [facility] [place] [facility] [address] [id number] [place] [address] Mar, [facility] [place] [facility] [address] [id number] [place] [address] Feb, [facility] [place] [facility] [address] [id number] [place] [address] Feb, [facility] [place] [facility] [address] [id number] [place] [address] Jan, [facility] [place] [facility] [address] [id number] [place] [address] Jan, [facility] [place] [facility] [address] [id number], [place] [address] Mar, [facility] [place] [facility] [address] [id number], [place] [address] Feb, [facility] [place] [facility] [address] [id number] [place] [address] Feb, [facility] [place] [facility] [address] [id number] [place] [address] Feb, [facility] [place] [facility] [address] [id number] [place] [address] Feb, [facility] [place] [facility] [address] [facility] [id number] [place] [address] Jan, [facility] [place] [facility] [address] [facility] [id number], [place] [address] Dec, [facility] [place] [facility] [address] [facility] [id number][place] [address] [address] Nov, IMMUNIZATIONS No Known Immunizations SOCIAL HISTORY [...] (GENERAL) HISTORY Type Description Date Hospitalization History [facility] March 2015
--- OUTSIDE RECORDS SUMMARY | 2018-02-25 07:40 | XMS REPORT ---
Author Author STEPHANIE CHRISTIANSEN [facility] Address [address] [place] [address] Care Team Providers Care Nurse'S Aides Teacher Name Role Phone STEPHANIE CHRISTIANSEN Unavailable PROBLEMS Type Condition ICD9-CM Code DAB17-NK Code Onset Dates Condition Status SNOMED Code Problem Hyperlipidemia, unspecified hyperlipidemia type E78.5 Active 80625774 Problem Long-term insulin use Z79.4 Active 719045336 Problem Abnormal carotid ultrasound R93.8 Active 924748028 Problem Type 2 diabetes mellitus with complication E11.8 Active 68895082 Problem Positive TB test R76.11 Active 354625874 Problem Vascular dementia with behavior disturbance F01.51 Active 710783429 Problem PVD (peripheral vascular disease) I73.9 Active 924084043 Problem Pain R52 Active 54495326 Problem Other chronic osteomyelitis of left foot M86.672 Active 539723241 Problem Nicotine dependence, unspecified, uncomplicated F17.200 Active 984638348 Problem Peripheral vascular disease due to secondary diabetes E13.51 Active 1076804 Problem Nonintractable epilepsy without status epilepticus, unspecified epilepsy type G40.909 Active 983513449 Problem Recurrent major depressive disorder, remission status unspecified F33.9 Active 96139366 Problem Anxiety F41.9 Active 97754753 Problem Generalized anxiety disorder F41.1 Active 37334585 Problem Vascular dementia F01.50 Active 806493836 Problem Pseudobulbar affect F48.2 Active 41732802 Problem Coronary artery disease involving pechanga coronary artery of pechanga heart without angina pectoris I25.10 Active 9981957688836 Problem Gastroesophageal reflux disease without esophagitis K21.9 Active 262104650 Problem Cerebrovascular accident (CVA) due to other mechanism I63.8 Active 430054030 Problem Pulmonary emphysema, unspecified emphysema type J43.9 Active 63570361 Problem Neuropathy G62.9 Active 629440869 Problem Depression F32.9 Active 97235035 Problem Essential hypertension I10 Active 02762804 Problem Acquired hypothyroidism E03.9 Active 753056895 ALLERGIES No Information ENCOUNTERS Encounter Location Date Diagnosis [facility] [address] [place] [id number] Dec, Crush injury T14.8XXA [facility] [address] [address] 14 Dec, 2017 Generalized anxiety disorder F41.1 [facility] [id number] [place] [address] 38203- 4317 14 Dec, 2017 [facility] [id number] [place] [address] 90828- 9183 Dec, [facility] [id number] [place] [address] 05413- 7479 Nov, Generalized anxiety disorder F41.1 [facility] [id number] [place] [address] 34282- 8733 Oct, Generalized anxiety disorder F41.1 [facility] [id number] [place] [address] 95390- 4590 Oct, Generalized anxiety disorder F41.1 [facility] [address] [place] [id number] Oct, Sepsis, due to unspecified organism A41.9 ; Generalized anxiety disorder F41.1 ; Pain R52 and Depression F32.9 [facility] [address] [address] 4730 Oct, [facility] [id number] [place] [address] 38038- 7964 Oct, [facility] [id number] [place] [address] 71828- 2585 Sep, Generalized anxiety disorder F41.1 [facility] [id number] [place] [address] 86676- 7360 Sep, [facility] [id number] [place] [address] 08599- 4526 Sep, Type 2 diabetes mellitus with complication E11.8 [facility] [address], [place] [address] 4348 August, Generalized anxiety disorder F41.1 [facility] [address], [place] [address] 5346 August, [facility] [address] [id number] August, Type 2 diabetes mellitus with complication E11.8 ; Vascular dementia with behavior disturbance F01.51 ; Long-term insulin use Z79.4 and Nicotine dependence, unspecified, uncomplicated F17.200 [facility] [id number] [address] 5[address] August, Generalized anxiety disorder F41.1 [facility] [address], [place] [address] 6722 Jul, Generalized anxiety disorder F41.1 [facility] [id number] [id number] Jun, Generalized anxiety disorder F41.1 [facility] [id number] [id number] Jun, [facility] [id number] [address] May, [facility] [address] [address] May, [facility] [id number] [id number] May, Generalized anxiety disorder F41.1 [facility] [address] [id number] [address] [address] Apr, [facility] [address] [id number] Apr, Other chronic osteomyelitis of left foot M86.672 ; Type 2 diabetes mellitus with complication E11.8 ; Vascular dementia F01.50 ; Long-term insulin use Z79.4 ; PVD (peripheral vascular disease) I73.9 and Nicotine abuse 305.1 [facility] [address] [address] 8045 Apr, [facility] [id number] [place] [address] [id number] Apr, [facility] [id number] [place] [address] 81277- 0335 Apr, Pain R52 and Generalized anxiety disorder F41.1 [facility] [id number] [place] [address] 65469- 1039 Mar, [facility] [id number] [place] [address] 83409- 6966 Mar, Pain R52 and Generalized anxiety disorder F41.1 [facility] [address] [place] [id number] Feb, Depression F32.9 ; Type 2 diabetes mellitus with complication E11.8 and Nicotine dependence, unspecified, uncomplicated F17.200 [facility] [id number] [place] [address] 39690- 5918 Feb, Generalized anxiety disorder F41.1 and Pain R52 [facility] [id number] [place] [address] 41818- 0444 Feb, [facility] [id number] [place] [address] 37219- 1099 Jan, [facility] [id number] [place] [address] 29392- 6297 Jan, Generalized anxiety disorder F41.1 and Pain R52 [facility] [address] [place] [address] 30823- 4282 Jan, [facility] [id number] [place] [id number] Dec, Generalized anxiety disorder F41.1 and Pain R52 [facility] [address] [place] [id number] Dec, Vascular dementia F01.50 ; Pain of left leg M79.605 ; Pain in right leg M79.604 and Type 2 diabetes mellitus with complication E11.8 [facility] [id number] [place] [address] 04096- 2185 11 Dec, 2016 Pain R52 [facility] [id number] [place] [address] 51925- 0121 Dec, [facility] [id number] [place] [address] 44824- 5134 Nov, [facility] [id number] [place] [address] 47035- 2508 Nov, Pain R52 and Generalized anxiety disorder F41.1 [facility] [address] [place] [id number] Nov, Depression F32.9 ; Vascular dementia with behavior disturbance F01.51 and Anxiety F41.9 [facility] [id number] [place] [address] 40890- 8140 Nov, Pain R52 and Generalized anxiety disorder F41.1 [facility] [id number] [place] [address] 58437- 9648 Oct, Generalized anxiety disorder F41.1 [facility] [id number] [place] [address] 68814- 2435 Oct, Pain R52 [facility] [id number] [place] [address] 76907- 2737 Sep, [facility] [address] [place] [id number] Sep, Generalized anxiety disorder F41.1 [facility] [address] [place] [address] 76634- 5664 Sep, Pain R52 [facility] [id number] [place] [address] 11358- 4847 Sep, Generalized anxiety disorder F41.1 [facility] [id number] [place] [address] 76097- 7254 August, [facility] [id number] [place] [address] 86450- 7399 August, [facility] [address] [address]- 4514 August, Pain R52 [facility] [id number] [place] [address] 98799- 3656 August, Generalized anxiety disorder F41.1 [facility] [id number] [place] [address] [id number] August, Generalized anxiety disorder F41.1 [facility] [id number] [place] [address] 54978- 3057 Jul, Pain R52 [facility] [id number] [place] [address] 262573- 8425 Jul, [facility] [id number] [place] [address] [id number] Jul, [facility] [id number] [place] [address] 93686- 5409 Jun, [facility] [id number] [place] [address] [id number] Jun, Depression F32.9 [facility] [id number] [place] [address] 47585- 2121 Jun, Pain R52 [facility] [id number] [place] [address] 05548- 0246 Jun, [facility] [address] [facility] [address] [place] [id number] Jun, Vascular dementia F01.50 and Depression F32.9 [facility] [id number] [address]- 2107 May, Pain R52 [facility] [id number] [place] [address] 97245- 4270 May, [facility] [address], [place] [address]- 8495 May, Pseudobulbar affect F48.2 [facility] [address] [address]- 2118 May, [facility] [id number] [place] [address] 44062- 4845 May, PVD (peripheral vascular disease) I73.9 [facility] [id number] [place] [address] 49937- 8259 May, Vascular dementia with behavior disturbance F01.51 [facility] [id number] [place] [address] 56089- 1253 May, Vascular dementia with behavior disturbance F01.51 [facility] [id number] [place] [address] 56794- 4505 Apr, [facility] [id number] [place] [address] 43949- 4733 Apr, Pain R52 [facility] [address] [place] [id number] Apr, Generalized anxiety disorder F41.1 ; PVD (peripheral vascular disease) I73.9 and Type 2 diabetes mellitus with complication E11.8 [facility] [address] [place] [address] 85973- 3835 Apr, Vascular dementia with behavior disturbance F01.51 [facility] [id number] [place] [address] 25995- 8626 Apr, [facility] [id number] [place] [address] 68445- 9102 Apr, Vascular dementia with behavior disturbance F01.51 [facility] [address] [address]- 6728 Apr, [place] [id number] [place] [address] [id number] Mar, [facility] [id number] [place] [address] 04402- 1147 Mar, Type 2 diabetes mellitus with complication E11.8 ; Vascular dementia with behavior disturbance F01.51 and Depression F32.9 [facility] [address] [address]- 0947 Mar, [facility] [id number] [place] [address] 69967- 2515 Feb, [facility] [id number] [place] [address] 35135- 0901 Feb, Viral illness B34.9 [facility] [id number] [place] [address] 47513- 7534 Jan, Diabetes 250.00 [facility] [id number] [place] [address] 45112- 2735 Jan, [facility] [id number] [place] [address] 74932- 0503 Jan, [facility] [id number] [place] [address] 34442- 3386 Jan, [facility] [address] [id number] Jan, Vascular dementia with behavior disturbance F01.51 and Type 2 diabetes mellitus with complication E11.8 [facility] [id number] [place] [address] 61955- 2051 Jan, Pain R52 [facility] [id number] [place] [address] 14572- 0256 Jan, Pain R52 [facility] [id number] [place] [address] 32496- 4981 Dec, [facility] [id number] [place] [address] 23307- 9698 Nov, [facility] [address] [id number] Nov, Type 2 diabetes mellitus with complication E11.8 [facility] [address] [address]- 0543 Nov, [facility] [id number] [place] [address] 45014- 0490 Oct, [facility] [id number] [place] [address] 65146- 5355 Oct, [facility] [id number] [place] [address] 54156- 8198 Oct, Vascular dementia with behavior disturbance F01.51 and Type 2 diabetes mellitus with complication E11.8 [facility] [id number] [place] [address] 04420- 5570 August, Type 2 diabetes mellitus with complication E11.8 and Vascular dementia with behavior disturbance F01.51 [place] [id number] [place] [address] 02633- 7719 August, Vascular dementia F01.50 [place] [id number] [place] [address] 89238- 4431 August, Vascular dementia with behavior disturbance F01.51 [facility] [id number] [place] [address] 49560- 9853 Jul, Vascular dementia with behavior disturbance F01.51 [facility] [id number] [place] [address] 26230- 4412 Jun, Vascular dementia F01.50 [facility] [address] [place] [address] 16161- 7611 Jun, Type 2 diabetes mellitus with complication E11.8 ; Long- term insulin use Z79.4 and Vascular dementia with behavior disturbance F01.51 [facility] [address] [address]- 1396 Jun, Vascular dementia with behavior disturbance F01.51 [facility] [id number] [place] [address] 67883- 0708 Jun, Vascular dementia F01.50 [facility] [id number] [place] [address] 48884- 9103 Apr, [facility] [id number] [place] [address] 06036- 8156 Apr, [facility] [id number] [address]- 6527 Apr, [facility] [address] [address]- 9476 Apr, Type 2 diabetes mellitus with complication E11.8 ; Depression F32.9 and Long-term insulin use Z79.4 [facility] [address] [address]- 4486 Mar, [facility] [address] [place] [id number] Mar, Depression F32.9 ; Type 2 diabetes mellitus with complication E11.8 and Long-term insulin use Z79.4 [facility] [address] [address]- 7836 Feb, [facility] [address] [address]- 1557 Feb, Hyperthyroidism E05.90 [facility] [address], [place] [address]- 9170 Feb, Hyperthyroidism E05.90 [facility] [address] [address]- 4813 Feb, [facility] [id number] [address]- 6334 Jan, [facility] [id number] [address]- 9884 Dec, Nicotine addiction 305.1 [facility] [id number] [address]- 2857 Oct, Nicotine abuse 305.1 [facility] [id number] [address]- 0056 Oct, [facility] [id number] [address]- 3465 August, [facility] [address] [facility] [place] [id number] August, History of drug abuse 305.93 and Diabetes 250.00 [facility] [address] [facility] [id number] [place] [address]- 3694 14 Jul, 2014 [facility] [address] [facility] [id number] [place] [address]- 9453 Jul, [facility] [address] [facility] [id number] [place] [address]- 0146 Jun, [facility] [address] [facility] [id number] [place] [address]- 3220 Jun, [facility] [id number] [place] [address]- 4122 Jun, [facility] [id number] [place] [address]- 4322 Jun, [facility] [address] [address]- 4241 Jun, [facility] [id number] [place] [address]- 4601 Jun, [facility] [address] [address]- 9413 May, [facility] [address] [address]- 6073 May, [facility] [address] [address]- 2936 May, [facility] [address] [facility] [id number], [place] [address]- 9117 May, [facility] [address] [id number] 1402 May, [facility] [id number] 6182 Apr, [facility] [address] [address]- 0105 Apr, [facility] [address] [facility] [id number] Apr, [facility] [address] [id number] [place] [address]- 4640 Apr, [facility] [address] [id number] [place] [address]- 0780 Apr, [facility] [address] [id number] [place] [address]- 2670 Apr, [facility] [place] [facility] [address] [id number] [place] [address]- 6092 Apr, [facility] [address] [id number] [place] [address]- 5218 Apr, [facility] [place] [facility] [address] [id number] [place] [address]- 8970 Mar, [facility] [place] [facility] [address] [id number] [place] [address]- 9630 Mar, [facility] [place] [facility] [address] [id number] [place] [address]- 7188 Mar, [facility] [place] [facility] [address] [id number] [place] [address]- 0623 Mar, [facility] [place] [facility] [address] [id number] [place] [address]- 8925 Mar, [facility] [place] [facility] [address] [id number] [address]- 8749 Mar, [facility] [place] [facility] [address] [id number] [place] [address]- 8203 Mar, [facility] [place] [facility] [address] [id number] [place] [address]- 3077 Mar, [facility] [place] [facility] [address] [id number] [place] [address]- 3608 Feb, [facility] [place] [facility] [address] [id number] [place] [address]- 2878 Feb, [facility] [place] [facility] [address] [id number] [place] [address]- 8205 Feb, [facility] [place] [facility] [address] [id number] [place] [address]- 5881 Feb, [facility] [place] [facility] [address] [id number] [place] [address]- 7947 Feb, [facility] [address] [place] [id number] Feb, [facility] [place] [facility] [address] [id number] [place] [address]- 6388 Feb, [facility] [place] [facility] [address] [id number] [place] [address]- 0879 Feb, [facility] [place] [facility] [address] [id number] [place] [address]- 5730 Feb, [facility] [place] [facility] [address] [id number] [place] [address]- 6982 Feb, [facility] [place] [facility] [address] [id number] [place] [address] Jan, [facility] [place] [facility] [address] [id number] [place] [address] 30 Jan, 2014 [facility] [place] [facility] [address] [id number] [place] [address] Jan, [facility] [place] [facility] [address] [id number], [place] [address] 17 Jan, 2014 [facility] [place] [facility] [address] [id number] [place] [address] 16 Jan, 2014 [facility] [place] [facility] [address] [id number] [place] [address]- [address] 16 Jan, 2014 [facility] [place] [facility] [address] [id number] [place] [address] 15 Jan, 2014 [facility] [place] [facility] [address] [id number] [place] [address] 13 Jan, 2013 [facility] [place] [facility] [address] [id number] [place] [address]- [address] Jan, 2013 [facility] [place] [facility] [address] [id number] [place] [address] Jan, 2013 [facility] [place] [facility] [address] [id number] [place] [address] Jan, 2013 [facility] [place] [facility] [address] [id number] [place] [address] Jan, [facility] [place] [facility] [address] [id number] [place] [address] Jan, [facility] [place] [facility] [address] [id number] [place] [address] Jan, [facility] [place] [facility] [address] [id number] [place] [address] Jan, [facility] [place] [facility] [address] [id number] [place] [address] Jan, [facility] [place] [facility] [address] [id number] [place] [address] Jan, [facility] [place] [facility] [address] [id number] [place] [address] Dec, 2013 [facility] [place] [facility] [address] [id number] [place] [address]- [address] 19 Dec, 2013 [facility] [place] [facility] [address] [id number] [place] [address] 11 Dec, 2013 [facility] [place] [facility] [address] [id number] [place] [address] Dec, 2013 [facility] [place] [facility] [address] [id number] [place] [address] Dec, 2013 [facility] [place] [facility] [address] [id number] [place] [address]- [address] Dec, 2013 [facility] [place] [facility] [address] [id number] [place] [address] 08 Dec, 2013 [facility] [place] [facility] [address] [id number] [place] [address] Dec, 2013 [facility] [place] [facility] [address] [id number] [place] [address]248 Dec, 2013 [facility] [place] [facility] [address] [id number] [place] [address]- [address]60 Dec, 2013 [facility] [place] [facility] [address] [id number] [place] [address]- 8400 Dec, 2013 [facility] [place] [facility] [address] [id number] [place] [address]- 9823 Dec, 2013 [facility] [place] [facility] [address] [id number] [place] [address]- 2141 Dec, 2013 [facility] [place] [facility] [address] [id number] [place] [address]- 5575 Dec, 2013 [facility] [place] [facility] [address] [id number] [place] [address] 1912 Nov, [facility] [place] [facility] [address] [id number] [place] [address]- 8680 Nov, [facility] [place] [facility] [address] [id number] [place] [address]- 6984 Nov, [facility] [place] [facility] [address] [id number] [place] [address]- 2970 Nov, [facility] [place] [facility] [address] [id number] [place] [address]- 0978 Nov, [facility] [place] [facility] [address] [id number] [place] [address]- 2324 Nov, [facility] [place] [facility] [address] [id number] [place] [address]- 2848 Nov, [facility] [place] [facility] [address] [id number] [place] [address]- 5820 Nov, [facility] [place] [facility] [address] [id number] [place] [address]- 5611 Nov, [facility] [place] [facility] [address] [id number] [place] [address]- 9126 Nov, [facility] [place] [facility] [address] [id number] [place] [address]- 2502 Nov, [facility] [place] [facility] [address] [id number] [place] [address]- 9657 Nov, [facility] [place] [facility] [address] [id number] [place] [address]- 2210 Nov, [facility] [place] [facility] [address] [id number] [place] [address]- 5609 Nov, [facility] [place] [facility] [address] [id number] [place] [address]- 0974 Oct, [facility] [place] [facility] [address] [id number] [place] [address]- 9120 Oct, [facility] [place] [facility] [address] [id number] [place] [address]- 4331 Oct, [facility] [place] [facility] [address] [id number] [place] [address]- 2667 Oct, [facility] [place] [facility] [address] [id number] [place] [address]- 7114 Oct, [facility] [place] [facility] [address] [id number] [place] [address]- 3405 Oct, [facility] [place] [facility] [address] [id number] [place] [address]- 1159 Oct, [facility] [place] [facility] [address] [id number] [place] [address]- 8527 Oct, [facility] [place] [facility] [address] [id number] [place] [address]- 1901 Oct, [facility] [place] [facility] [address] [id number] [place] [address]- 3096 Oct, [facility] [place] [facility] [address] [id number] [place] [address]- 3809 Oct, [facility] [place] [facility] [address] [id number] [place] [address]- 4096 Oct, [facility] [place] [facility] [address] [id number] [place] [address]- 8221 Oct, [facility] [place] [facility] [address] [id number] [place] [address]- 0780 Oct, [facility] [place] [facility] [address] [id number] [place] [address]- 3059 Oct, [facility] [place] [facility] [address] [id number] [place] [address]- 7780 Oct, [facility] [place] [facility] [address] [id number] [place] [address]- 8063 Oct, [facility] [place] [facility] [address] [id number] [place] [address]- 7842 Oct, [facility] [place] [facility] [address] [id number] [place] [address]- 2791 Oct, [facility] [place] [facility] [address] [id number] [place] [address]- 0398 Oct, [facility] [place] [facility] [address] [id number] [place] [address]- 1631 Sep, [facility] [place] [facility] [address] [id number] [place] [address]- 5169 Sep, [facility] [place] [facility] [address] [id number] [place] [address]- 3109 Sep, [facility] [place] [facility] [address] [id number] [place] [address]- 1887 Sep, [facility] [place] [facility] [address] [id number] [place] [address]- 2546 Sep, [facility] [place] [facility] [address] [id number] [place] [address]- 4096 Sep, [facility] [place] [facility] [address] [id number] [place] [address]- 4697 August, [facility] [place] [facility] [address] [id number] [place] [address]- 0276 August, [facility] [place] [facility] [address] [id number] [place] [address]- 2152 Jul, [facility] [place] [facility] [address] [id number] [place] [address]- 9278 Jul, [facility] [place] [facility] [address] [id number] [place] [address]- 2093 Jul, [facility] [place] [facility] [address] [id number] [place] [address]- 0934 Jul, [facility] [place] [facility] [address] [id number] [place] [address]- 6419 Jul, [facility] [place] [facility] [address] [id number] [place] [address]- 7595 Jul, [facility] [place] [facility] [address] [id number] [place] [address]- 1636 Jul, [facility] [place] [facility] [address] [id number] [place] [address]- 7577 Jul, [facility] [place] [facility] [address] [id number] [place] [address]- 2100 Jun, [facility] [place] [facility] [address] [id number] [place] [address]- 5999 Jun, [facility] [place] [facility] [address] [id number] [place] [address]- 7943 Jun, [facility] [place] [facility] [address] [id number] [place] [address]- 8430 Jun, [facility] [place] [facility] [address] [id number] [place] [address]- 9873 Jun, [facility] [place] [facility] [address] [id number] [place] [address]- 7122 May, [facility] [place] [facility] [address] [id number] [place] [address]- 4696 May, [facility] [place] [facility] [address] [id number] [place] [address]- 1580 May, [facility] [place] [facility] [address] [id number] [place] [address]- 4761 May, [facility] [place] [facility] [address] [id number] [place] [address]- 3238 May, [facility] [place] [facility] [address] [facility] [id number] [place] [address]- 0343 May, [facility] [place] [facility] [address] [facility] [id number] [place] [address]- 4088 May, [facility] [place] [facility] [address] [facility] [id number] [place] [address]- 4528 May, [facility] [place] [facility] [address] [facility] [id number] [place] [address]- 8907 May, [facility] [place] [facility] [address] [facility] [id number] [place] [address]- 3432 May, [facility] [place] [facility] [address] [facility] [id number], [place] [address]- 6821 May, [facility] [place] [facility] [address] [facility] [id number] [place] [address]- 1624 Apr, [facility] [place] [facility] [address] [id number] [place] [address]- 5790 Apr, [facility] [place] [facility] [address] [facility] [id number], [place] [address]- 1452 Mar, [facility] [place] [facility] [address] [facility] [id number][place] [address]- 2968 Mar, [facility] [place] [facility] [address] [id number] [place] [address]- 5930 Mar, [facility] [place] [facility] [address] [id number] [place] [address]- 2889 Mar, [facility] [place] [facility] [address] [id number] [place] [address]- 9824 Mar, [facility] [place] [facility] [address] [id number] [place] [address]- 7278 Jan, [facility] [place] [facility] [address] [id number] [place] [address]- 6489 Jan, [facility] [place] [facility] [address] [id number] [place] [address]- 6612 Jan, [facility] [place] [facility] [address] [facility] [id number] [place] [address]- 6397 Jan, [facility] [place] [facility] [address] [facility] [id number] [place] [address]- 7786 Jan, [facility] [place] [facility] [address] [facility] [id number] [place] [address]- 0923 Jan, [facility] [place] [facility] [address] [facility] [id number], [place] [address]- 5066 Jan, [facility] [place] [facility] [address] [facility] [id number], [place] [address]- 9509 Jan, [facility] [place] [facility] [address] [facility] [id number], [place] [address]- 3672 Jan, [facility] [place] [facility] [address] [id number], [place] [address]- 7497 Jan, [facility] [place] [facility] [address] [facility] [id number], [place] [address]- 5018 Dec, [facility] [place] [facility] [address] [facility] [id number] [place] [address]- 8961 Oct, [facility] [place] [facility] [address] [id number] [place] [address]- 9794 Oct, [facility] [address] [id number] [place] [address]- 4637 Oct, [facility] [place] [facility] [address] [id number] [place] [address]- 5601 Oct, [facility] [address] [id number] [place] [address]- 6645 Oct, [facility] [place] [facility] [address] [id number] [place] [address]- 9480 Oct, [facility] [address] [id number] [place] [address]- 3135 Sep, [facility] [address] [id number] [place] [address]- 9360 August, [facility] [address] [id number] [place] [address]- 7402 August, [facility] [address] [id number] [place] [address]- 1097 August, [facility] [address] [id number] [place] [address]- 9183 August, [facility] [address] [id number] [place] [address]- 9683 August, [facility] [place] [facility] [address] [id number] [place] [address]- 3841 May, [facility] [place] [facility] [address] [id number] [place] [address]- 1406 Apr, [facility] [place] [facility] [address] [id number] [place] [address]- 8563 Apr, [facility] [place] [facility] [address] [id number] [place] [address]- 2546 Apr, [facility] [place] [facility] [address] [id number] [place] [address]- 5973 Apr, [facility] [address] [id number] [place] [address]- 4360 Apr, [facility] [place] [id number] Mar, [facility] [address] [id number] [place] [address]- 0556 Mar, [facility] [address] [id number] [place] [address]- 6348 Mar, [facility] [address] [id number] [place] [address]- 6086 Mar, [facility] [address] [id number] [place] [address]- 6146 Mar, [facility] [address] [id number] [place] [address]- 1939 Mar, [facility] [address] [id number] [place] [address]- 6339 Mar, [facility] [address] [id number] [place] [address]- 2797 Mar, [facility] [address] [id number] [place] [address]- 2407 Mar, [facility] [address] [id number] [place] [address]- 7451 Mar, [facility] [address] [id number] [place] [address]- 4460 Mar, [facility] [address] [id number] [place] [address]- 2716 Mar, [facility] [address] [id number] [place] [address]- 6858 Mar, [facility] [address] [id number] [place]696 Mar, [facility] [address] [id number], [place] [address]- 1021 Mar, [facility] [place] [facility] [address] [id number] [place] [address]- 6415 Mar, [facility] [place] [facility] [address] [id number] [place] 7718 Mar, [facility] [place] [facility] [address] [id number] [place] [address]- 1841 Mar, [facility] [place] [facility] [address] [id number] [place] [address]- 0389 Mar, [facility] [place] [facility] [address] [id number] [place] [address]- 3053 Mar, [facility] [place] [facility] [address] [id number] [place] [address]- 2933 Feb, [facility] [place] [facility] [address] [id number] [place] [address]- 1761 Feb, [facility] [place] [facility] [address] [id number], [place] [address]- 0264 Feb, [facility] [place] [facility] [address] [id number], [place] [address]- 3839 Feb, [facility] [place] [facility] [address] [id number], [place] [address]- 2826 Jan, [facility] [place] [facility] [address] [id number], [place] [address]- 7673 Jan, [facility] [place] [facility] [address] [id number], [place] [address]- 1382 Jan, [facility] [place] [facility] [address] [id number], [place] [address]- 1819 Jan, [facility] [place] [facility] [address] [facility] [id number], [place] [address]- 9106 Jan, [facility] [place] [facility] [address] [id number] [place] [address]- 8084 Jan, [facility] [place] [facility] [address] [id number] [place] [address]- 2366 12 Jan, 2012 [facility] [place] [facility] [address] [id number] [place] [address]- 3340 12 Jan, 2012 [facility] [place] [facility] [address] [id number] [place] [address]- 6066 10 Jan, 2012 [facility] [place] [facility] [address] [id number] [place] [address]- 4739 27 Dec, 2011 [facility] [place] [facility] [address] [id number] [place] [address]- 7760 14 Dec, 2011 [facility] [place] [facility] [address] [id number] [place] [address]- 3813 12 Dec, 2011 [facility] [place] [facility] [address] [id number] [place] [address]- 3188 06 Dec, 2011 [facility] [place] [facility] [address] [id number] [place] [address]- 9292 06 Dec, 2011 [facility] [place] [facility] [address] [id number] [place] [address]- 3203 Nov, [facility] [place] [facility] [address] [id number] [place] [address]- 3016 Nov, [facility] [place] [facility] [address] [id number] [place] [address]- 2915 23 Nov, 2011 [facility] [place] [facility] [address] [id number] [place] [address]- 9302 14 Nov, 2011 [facility] [place] [facility] [address] [id number] [place] [address]- 6669 13 Nov, 2011 [facility] [place] [facility] [address] [id number] [place] [address]- 5271 Nov, [facility] [place] [facility] [address] [id number] [place] [address]- 8208 08 Nov, 2011 [facility] [place] [facility] [address] [id number] [place] [address]- 2069 Nov, [facility] [place] [facility] [address] [id number] [place] [address]- 3660 Nov, [facility] [place] [facility] [address] [id number] [place] [address]- 9698 19 Oct, 2011 [facility] [place] [facility] [address] [id number] [place] [address]- 1539 13 Oct, 2011 [facility] [place] [facility] [address] [id number] [place] [address]- 2888 Sep, [facility] [place] [facility] [address] [id number] [place] [address]- 6781 Sep, [facility] [place] [facility] [address] [id number] [place] [address]- 3480 Sep, [facility] [place] [facility] [address] [id number] [place] [address]- 0151 August, [facility] [place] [facility] [address] [id number] [place] [address]- 7933 30 Jul, 2011 [facility] [place] [facility] [address] [id number] [place] [address]- 1975 27 Jul, 2011 [facility] [place] [facility] [address] [id number] [place] [address]- 1601 27 Jul, 2011 [facility] [place] [facility] [address] [id number] [place] [address]- 8545 18 Jul, 2011 [facility] [place] [facility] [address] [id number] [place] [address]- 6321 16 Jul, 2011 [facility] [place] [facility] [address] [id number] [place] [address]- 0546 16 Jul, 2011 [facility] [place] [facility] [address] [id number] [place] [address]- 1018 16 Jul, 2011 [facility] [place] [facility] [address] [id number] [place] [address]- 5667 14 Jul, 2011 [facility] [place] [facility] [address] [id number] [place] [address]- 8653 12 Jul, 2011 [facility] [address] [id number] [place] [address]- 1015 Jun, [facility] [place] [facility] [address] [id number] [place] [address]- 6247 18 Jun, 2011 [facility] [place] [facility] [address] [id number] [place] [address]- 4686 15 Jun, 2011 [facility] [place] [facility] [address] [id number] [place] [address]- 8568 12 Jun, 2011 [facility] [place] [facility] [address] [id number] [place] [address]- 7915 Jun, [facility] [place] [facility] [address] [id number] [place] [address]- 4605 Jun, [facility] [address] [id number] [place] [address]- 8781 Jun, [facility] [place] [facility] [address] [id number] [place] [address]- 1058 Jun, [facility] [place] [facility] [address] [id number] [place] [address]- 9514 May, [facility] [place] [facility] [address] [id number] [place] [address]- 9889 May, [facility] [place] [facility] [address] [id number] [place] [address]- 9155 May, [facility] [place] [facility] [address] [id number] [place] [address]- 8129 Apr, [facility] [place] [facility] [address] [id number] [place] [address]- 1795 Apr, [facility] [place] [facility] [address] [id number] [place] [address]- 4546 Apr, [facility] [place] [facility] [address] [id number] [place] [address] Mar, [facility] [place] [facility] [address] [id number] [place] [address] Mar, [facility] [address] [id number] [place] [address] Mar, [facility] [address] [id number] [place] [address] Mar, [facility] [address] [id number] [place] [address] Mar, [facility] [address] [id number] [place] [address] Mar, [facility] [address] [id number] [place] [address] Mar, [facility] [address] [id number] [place] [address] Mar, [facility] [address] [id number] [place] [address] Mar, [facility] [address] [id number] [place] [address] Mar, [facility] [address] [id number] [place] [address] Mar, [facility] [place] [facility] [address] [id number] [place] [address] Mar, [facility] [place] [facility] [address] [id number] [place] [address] Mar, [facility] [place] [facility] [address] [id number] [place] [address] Mar, [facility] [place] [facility] [address] [id number] [place] [address] Feb, [facility] [place] [facility] [address] [id number] [place] [address] Feb, [facility] [place] [facility] [address] [id number] [place] [address] 14 Feb, 2011 [facility] [place] [facility] [address] [id number] [place] [address] 29 Jan, 2011 [facility] [place] [facility] [address] [id number] [place] [address] Jan, [facility] [place] [facility] [address] [id number] [place] [address] Oct, [facility] [place] [facility] [address] [id number] [place] [address] Sep, [facility] [place] [facility] [address] [id number] [place] [address] Mar, [facility] [place] [facility] [address] [id number] [place] [address] Mar, [facility] [place] [facility] [address] [id number] [place] [address] Feb, [facility] [place] [facility] [address] [id number] [place] [address] Feb, [facility] [place] [facility] [address] [id number] [place] [address] Jan, [facility] [place] [facility] [address] [id number] [place] [address] Jan, [facility] [place] [facility] [address] [id number], [place] [address] Mar, [facility] [place] [facility] [address] [id number], [place] [address] Feb, [facility] [place] [facility] [address] [id number] [place] [address] Feb, [facility] [place] [facility] [address] [id number] [place] [address] Feb, [facility] [place] [facility] [address] [id number] [place] [address] Feb, [facility] [place] [facility] [address] [facility] [id number] [place] [address] Jan, [facility] [address] [facility] [id number] [address] Dec, [facility] [address] [facility] [id number][place] [address] Nov, IMMUNIZATIONS No Known Immunizations SOCIAL HISTORY Never Assessed REASON FOR VISIT Med list update PLAN OF CARE VITAL SIGNS MEDICATIONS Medication Instructions Dosage Frequency Start Date End Date Duration Status Melatonin 3 MG Orally Once a day 1 tablet at bedtime 24h Active Aspir-81 81 MG Orally Once a day 1 tablet 24h Active Aricept 10 mg Orally Once a day 1 tablet at bedtime 24h Dec, 30 day(s) Active Metoprolol Tartrate 25 MG Orally Twice a day 1 tablet with food 12h Active Ibuprofen 200 mg Orally 4 times a day as needed for pain or fever 2 tablet with food or milk as needed Oct, Active Metformin HCl 1000 MG Orally Twice a day 1 tablet with meals 12h Active Clonidine HCl 0.2 MG Orally twice a day 1 tablet 12h Active Divalproex Sodium 125 MG Orally 4 times a day 2 capsules 6h Active Enalapril Maleate 2.5 MG Orally Once a day 1 tablet 24h Active Glimepiride 4 MG Orally Once a day 1 tablet with breakfast or the first main meal of the day 24h Sep, 30 day(s) Active Lactobacillus - Orally 4 times a day 1 tablet 6h Active Simvastatin 10 MG Orally Once a day 1 tablet in the evening 24h Active Remeron 15 MG Orally Once a day 1 tablet at bedtime 24h Active Exelon 9.5 MG/24HR Transdermal Once a day 1 patch to skin 24h Active Celexa 20 mg Orally Once a day 1 tablet 24h 30 days Active Mylanta 200-200-20 MG/5ML Orally every 4 hrs 30 ml as needed 4h Active Plavix 75 MG Orally Once a day 1 tablet 24h Active Synthroid 175 MCG Orally Once a day 1 tablet on an empty stomach in the morning 24h Active Cholecalciferol 4000 UNIT Orally Once a day 1 tablet 24h Active Levetiracetam 500 mg Orally Twice a day 1 tablet 12h Active Klonopin 0.5 MG Orally Twice a day 2 tablets in AM and 1 in PM 12h August, 28 days Active RESULTS No Results PROCEDURES No Known procedures INSTRUCTIONS MEDICATIONS ADMINISTERED No Known Medications MEDICAL (GENERAL) HISTORY Type Description Date Hospitalization History [facility] March 2015
--- OUTSIDE RECORDS SUMMARY | 2018-02-25 07:41 | XMS REPORT ---
Author Author STEPHANIE CHRISTIANSEN [facility] Address [address] [place] [address] Care Team Providers Care Test Preparation Tutor Name Role Phone STEPHANIE CHRISTIANSEN Unavailable PROBLEMS Type Condition ICD9-CM Code PLH69-QY Code Onset Dates Condition Status SNOMED Code Problem Hyperlipidemia, unspecified hyperlipidemia type E78.5 Active 40064886 Problem Long-term insulin use Z79.4 Active 830698047 Problem Abnormal carotid ultrasound R93.8 Active 763730326 Problem Type 2 diabetes mellitus with complication E11.8 Active 64896725 Problem Positive TB test R76.11 Active 983346576 Problem Vascular dementia with behavior disturbance F01.51 Active 256095270 Problem PVD (peripheral vascular disease) I73.9 Active 133067699 Problem Pain R52 Active 33171819 Problem Other chronic osteomyelitis of left foot M86.672 Active 843436975 Problem Nicotine dependence, unspecified, uncomplicated F17.200 Active 507342701 Problem Peripheral vascular disease due to secondary diabetes E13.51 Active 3302103 Problem Nonintractable epilepsy without status epilepticus, unspecified epilepsy type G40.909 Active 526102103 Problem Recurrent major depressive disorder, remission status unspecified F33.9 Active 87079210 Problem Anxiety F41.9 Active 16706554 Problem Generalized anxiety disorder F41.1 Active 98149108 Problem Vascular dementia F01.50 Active 730998856 Problem Pseudobulbar affect F48.2 Active 88851069 Problem Coronary artery disease involving [place] coronary artery of [place] heart without angina pectoris I25.10 Active 3754018644089 Problem Gastroesophageal reflux disease without esophagitis K21.9 Active 293190689 Problem Cerebrovascular accident (CVA) due to other mechanism I63.8 Active 404826313 Problem Pulmonary emphysema, unspecified emphysema type J43.9 Active 04288926 Problem Neuropathy G62.9 Active 816462894 Problem Depression F32.9 Active 48969972 Problem Essential hypertension I10 Active 47753028 Problem Acquired hypothyroidism E03.9 Active 903487737 ALLERGIES No Information ENCOUNTERS Encounter Location Date Diagnosis [facility] [address] [place] [id number] Dec, Crush injury T14.8XXA [facility] [address], [place] [address] 14 Dec, 2017 Generalized anxiety disorder F41.1 [facility] [id number] [place] [address] 88214- 5377 14 Dec, 2017 [facility] [id number] [place] [address] 34096- 0460 Dec, [facility] [id number] [place] [address] 01311- 5337 Nov, Generalized anxiety disorder F41.1 [place] [id number] [place] [address] 98482- 1783 Oct, Generalized anxiety disorder F41.1 [facility] [id number] [place] [address] 44355- 2927 Oct, Generalized anxiety disorder F41.1 [facility] [address] [place] [id number] Oct, Sepsis, due to unspecified organism A41.9 ; Generalized anxiety disorder F41.1 ; Pain R52 and Depression F32.9 [facility] [address], [place] [address] 7784 Oct, [facility] [id number] [place] [address] 26610- 7189 Oct, [facility] [id number] [place] [address] 43201- 1112 Sep, Generalized anxiety disorder F41.1 [facility] [address] [place] [address] 67895- 4502 Sep, [facility] [address] [place] [address] 18676- 1055 Sep, Type 2 diabetes mellitus with complication E11.8 [facility] [address], [place] [address] 7803 August, Generalized anxiety disorder F41.1 [facility] [address], [place] [address] 8276 August, [facility] [address] [place] [id number] August, Type 2 diabetes mellitus with complication E11.8 ; Vascular dementia with behavior disturbance F01.51 ; Long-term insulin use Z79.4 and Nicotine dependence, unspecified, uncomplicated F17.200 [facility] [id number], [place] [address] 2489 August, Generalized anxiety disorder F41.1 [facility] [address], [place] [address] 8678 Jul, Generalized anxiety disorder F41.1 [facility] [id number] [address] Jun, Generalized anxiety disorder F41.1 [facility] [id number] [id number] Jun, [facility] [id number] [id number] May, [facility] [address] [address] May, [facility] [id number] [address] May, Generalized anxiety disorder F41.1 [facility] [id number] [address] Apr, [facility] [address] [id number] Apr, Other chronic osteomyelitis of left foot M86.672 ; Type 2 diabetes mellitus with complication E11.8 ; Vascular dementia F01.50 ; Long-term insulin use Z79.4 ; PVD (peripheral vascular disease) I73.9 and Nicotine abuse 305.1 [facility] [address] [address] 110[address] Apr, [facility] [id number] [place] [id number] Apr, [facility] [id number] [place] [address] 96668- 5913 Apr, Pain R52 and Generalized anxiety disorder F41.1 [facility] [id number] [place] [address] 54989- 2540 Mar, [facility] [id number] [place] [address] 48809- 4286 Mar, Pain R52 and Generalized anxiety disorder F41.1 [facility] [address] [place] [id number] Feb, Depression F32.9 ; Type 2 diabetes mellitus with complication E11.8 and Nicotine dependence, unspecified, uncomplicated F17.200 [facility] [id number] [place] [address] 56168- 6660 Feb, Generalized anxiety disorder F41.1 and Pain R52 [facility] [address] [place] [address] 47777- 1797 Feb, [facility] [id number] [place] [address] 32719- 9727 Jan, [facility] [address] [place] [address] 40851- 3595 Jan, Generalized anxiety disorder F41.1 and Pain R52 [facility] [address] [place] [address] 26949- 6950 Jan, [facility] [id number] [place] [address] [id number] Dec, Generalized anxiety disorder F41.1 and Pain R52 [facility] [address] [place] [id number] Dec, Vascular dementia F01.50 ; Pain of left leg M79.605 ; Pain in right leg M79.604 and Type 2 diabetes mellitus with complication E11.8 [facility] [id number] [place] [address] 94448- 4725 11 Dec, 2016 Pain R52 [facility] [id number] [place] [address] 93125- 1685 Dec, [facility] [id number] [place] [address] 92267- 1747 Nov, [facility] [id number] [place] [address] 82397- 8522 Nov, Pain R52 and Generalized anxiety disorder F41.1 [facility] [address] [place] [id number] Nov, Depression F32.9 ; Vascular dementia with behavior disturbance F01.51 and Anxiety F41.9 [facility] [id number] [place] [address] 96546- 6412 Nov, Pain R52 and Generalized anxiety disorder F41.1 [facility] [id number] [place] [address] 40799- 7389 Oct, Generalized anxiety disorder F41.1 [facility] [id number] [place] [address] 86269- 0969 Oct, Pain R52 [facility] [id number] [place] [address] 12252- 6214 Sep, [facility] [address] [place] [id number] Sep, Generalized anxiety disorder F41.1 [facility] [address] [place] [address] 84098- 7888 Sep, Pain R52 [facility] [id number] [place] [address] 03819- 1817 Sep, Generalized anxiety disorder F41.1 [facility] [id number] [place] [address] 11597- 1693 August, [facility] [id number] [place] [address] 59464- 7019 August, [facility] [address], [place] [address]- 1043 August, Pain R52 [facility] [address] [place] [address] 01886- 4726 August, Generalized anxiety disorder F41.1 [facility] [id number] [place] [address] [id number] August, Generalized anxiety disorder F41.1 [facility] [address] [place] [address] 91309- 9870 Jul, Pain R52 [facility] [id number] [place] [address] 956278- 7608 Jul, [facility] [id number] [place] [address] [id number] Jul, [facility] [id number] [place] [address] 17224- 5666 Jun, [facility] [id number] [place] [address] [id number] Jun, Depression F32.9 [facility] [address] [place] [address] 32696- 1656 Jun, Pain R52 [facility] [address] [place] [address] 19799- 4066 Jun, [facility] [address] [facility] [place] [id number] Jun, Vascular dementia F01.50 and Depression F32.9 [facility] [id number], [place] [address]- 9321 May, Pain R52 [facility] [address] [place] [address] 92158- 5808 May, [facility] [address], [place] [address]- 3610 May, Pseudobulbar affect F48.2 [facility] [address], [place] [address]- 9535 May, [facility] [id number] [place] [address] 67930- 3040 May, PVD (peripheral vascular disease) I73.9 [facility] [address] [place] [address] 18714- 9239 May, Vascular dementia with behavior disturbance F01.51 [facility] [address] [place] [address] 92939- 0329 May, Vascular dementia with behavior disturbance F01.51 [place] [place] [id number] [place] [address] 70943- 6747 Apr, [facility] [id number] [place] [address] 87175- 9688 Apr, Pain R52 [facility] [address] [place] [place] [id number] Apr, Generalized anxiety disorder F41.1 ; PVD (peripheral vascular disease) I73.9 and Type 2 diabetes mellitus with complication E11.8 [facility] [address] [place] [address] 91593- 9696 Apr, Vascular dementia with behavior disturbance F01.51 [facility] [address] [place] [address] 02619- 4733 Apr, [facility] [address] [place] [address] 54844- 2258 Apr, Vascular dementia with behavior disturbance F01.51 [facility] [address], [place] [address]- 2881 Apr, [place] [id number] [place] [id number] Mar, [facility] [address] [place] [address] 80074- 7528 Mar, Type 2 diabetes mellitus with complication E11.8 ; Vascular dementia with behavior disturbance F01.51 and Depression F32.9 [facility] [address], [place] [address]- 0377 Mar, [facility] [id number] [place] [address] 42683- 7234 Feb, [facility] [id number] [place] [address] 64967- 7469 Feb, Viral illness B34.9 [facility] [id number] [place] [address] 82751- 6750 Jan, Diabetes 250.00 [facility] [id number] [place] [address] 43192- 2238 Jan, [facility] [id number] [place] [address] 00816- 4404 Jan, [facility] [id number] [place] [address] 35286- 8237 Jan, [facility] [address] [id number] Jan, Vascular dementia with behavior disturbance F01.51 and Type 2 diabetes mellitus with complication E11.8 [facility] [id number] [place] [address] 41566- 2772 Jan, Pain R52 [facility] [id number] [place] [address] 18389- 2966 Jan, Pain R52 [facility] [id number] [place] [address] 20340- 8605 Dec, [facility] [address] [place] [address] 35270- 5235 Nov, [facility] [address] [id number] Nov, Type 2 diabetes mellitus with complication E11.8 [facility] [address], [place] [address]- 0390 Nov, [facility] [id number] [place] [address] 14827- 8039 Oct, [facility] [id number] [place] [address] 32901- 2177 Oct, [facility] [id number] [place] [address] 48098- 5706 Oct, Vascular dementia with behavior disturbance F01.51 and Type 2 diabetes mellitus with complication E11.8 [facility] [id number] [place] [address] 02080- 3813 August, Type 2 diabetes mellitus with complication E11.8 and Vascular dementia with behavior disturbance F01.51 [place] [id number] [place] [address] 32141- 6661 August, Vascular dementia F01.50 [place] [id number] [place] [address] 22384- 8686 August, Vascular dementia with behavior disturbance F01.51 [facility] [id number] [place] [address] 71414- 1241 Jul, Vascular dementia with behavior disturbance F01.51 [facility] [id number] [place] [address] 12457- 7635 Jun, Vascular dementia F01.50 [facility] [address] [place] [address] 87839- 0572 Jun, Type 2 diabetes mellitus with complication E11.8 ; Long- term insulin use Z79.4 and Vascular dementia with behavior disturbance F01.51 [facility] [address], [place] [address]- 4335 Jun, Vascular dementia with behavior disturbance F01.51 [facility] [id number] [place] [address] 21527- 0706 Jun, Vascular dementia F01.50 [facility] [id number] [place] [address] 15575- 4416 Apr, [facility] [id number] [place] [address] 67748- 5736 Apr, [facility] [id number], [place] [address]- 4580 Apr, [facility] [address], [place] [address]- 8946 Apr, Type 2 diabetes mellitus with complication E11.8 ; Depression F32.9 and Long-term insulin use Z79.4 [facility] [address], [place] [address]- 2666 Mar, [facility] [address] [place] [id number] Mar, Depression F32.9 ; Type 2 diabetes mellitus with complication E11.8 and Long-term insulin use Z79.4 [facility] [address], [place] [address]- 0206 Feb, [facility] [address], [place] [address]- 1802 Feb, Hyperthyroidism E05.90 [facility] [address], [place] [address]- 9714 Feb, Hyperthyroidism E05.90 [facility] [address], [place] [address]- 2517 Feb, [facility] [id number], [place] [address]- 2229 Jan, [facility] [id number], [place] [address]- 4673 Dec, Nicotine addiction 305.1 [facility] [id number], [place] [address]- 4753 Oct, Nicotine abuse 305.1 [facility] [id number], [place] [address]- 7026 Oct, [facility] [id number], [place] [address]- 4176 August, [facility] [address] [facility] [place] [id number] August, History of drug abuse 305.93 and Diabetes 250.00 [facility] [address] [facility] [id number] [place] [address]- 7696 14 Jul, 2014 [facility] [address] [facility] [id number] [place] [address]- 8978 Jul, [facility] [address] [facility] [id number] [place] [address]- 1155 Jun, [facility] [address] [facility] [id number] [place] [address]- 7915 Jun, [facility] [address] [place] [address]- 7920 Jun, [facility] [id number] [place] [address]- 4042 Jun, [facility] [address], [place] [address]- 8337 Jun, [facility] [id number] [place] [address]- 9280 Jun, [facility] [address], [place] [address]- 7146 May, [facility] [address], [place] [address]- 6044 May, [facility] [address], [place] [address]- 0353 May, [facility] [address] [facility] [id number], [place] [address]- 0985 May, [facility] [id number]- 4231 May, [facility] [id number]- 6224 Apr, [facility] [address], [place] [address]- 6139 Apr, [facility] [address] [facility] [place] [id number] Apr, [facility] [address] [id number] [place] [address]- 2233 Apr, [facility] [address] [id number] [place] [address]- 0451 Apr, [facility] [address] [id number] [place] [address]- 8022 Apr, [facility] [place] [facility] [address] [id number] [place] [address]- 9934 Apr, [facility] [address] [id number] [place] [address]- 9093 Apr, [facility] [place] [facility] [address] [id number] [place] [address]- 6952 Mar, [facility] [place] [facility] [address] [id number] [place] [address]- 9788 Mar, [facility] [place] [facility] [address] [id number] [place] [address]- 1564 Mar, [facility] [place] [facility] [address] [id number] [place] [address]- 9672 Mar, [facility] [place] [facility] [address] [id number] [place] [address]- 8704 Mar, [facility] [place] [facility] [address] [id number], [place] [address]- 8201 Mar, [facility] [place] [facility] [address] [id number] [place] [address]- 6922 Mar, [facility] [place] [facility] [address] [id number] [place] [address]- 3278 Mar, [facility] [place] [facility] [address] [id number] [place] [address]- 8815 Feb, [facility] [place] [facility] [address] [id number] [place] [address]- 0870 Feb, [facility] [place] [facility] [address] [id number] [place] [address]- 4924 Feb, [facility] [place] [facility] [address] [id number] [place] [address]- 6847 Feb, [facility] [place] [facility] [address] [id number] [place] [address]- 9068 Feb, [facility] [address] [place] [id number] Feb, [facility] [place] [facility] [address] [id number] [place] [address]- 1709 Feb, [facility] [place] [facility] [address] [id number] [place] [address]- 0651 Feb, [facility] [place] [facility] [address] [id number] [place] [address]- 3674 Feb, [facility] [place] [facility] [address] [id number] [place] [address]- 8280 Feb, [facility] [place] [facility] [address] [id number] [place] [address]- 7244 Jan, [facility] [place] [facility] [address] [id number] [place] [address]- 5773 30 Jan, 2014 [facility] [place] [facility] [address] [id number] [place] [address]- 5374 Jan, [facility] [place] [facility] [address] [id number], [place] [address]- 2416 17 Jan, 2014 [facility] [place] [facility] [address] [id number] [place] [address]- 0577 16 Jan, 2014 [facility] [place] [facility] [address] [id number] [place] [address]- 8808 16 Jan, 2014 [facility] [place] [facility] [address] [id number] [place] [address]- 5439 15 Jan, 2014 [facility] [place] [facility] [address] [id number] [place] [address]- 8997 13 Jan, 2013 [facility] [place] [facility] [address] [id number] [place] [address]- 7669 Jan, 2013 [facility] [place] [facility] [address] [id number] [place] [address]- 2296 Jan, 2013 [facility] [place] [facility] [address] [id number] [place] [address]- 7510 Jan, 2013 [facility] [place] [facility] [address] [id number] [place] [address]- 8281 Jan, [facility] [place] [facility] [address] [id number] [place] [address]- 1801 Jan, [facility] [place] [facility] [address] [id number] [place] [address]- 0957 Jan, [facility] [place] [facility] [address] [id number] [place] [address]- 4194 Jan, [facility] [place] [facility] [address] [id number] [place] [address]- 7430 Jan, [facility] [place] [facility] [address] [id number] [place] [address] Jan, [facility] [place] [facility] [address] [id number] [place] [address] Dec, 2013 [facility] [place] [facility] [address] [id number] [place] [address] 19 Dec, 2013 [facility] [place] [facility] [address] [id number] [place] [address] 11 Dec, 2013 [facility] [place] [facility] [address] [id number] [place] [address] Dec, 2013 [facility] [place] [facility] [address] [id number] [place] [address] Dec, 2013 [facility] [place] [facility] [address] [id number] [place] [address] Dec, 2013 [facility] [place] [facility] [address] [id number] [place] [address] 08 Dec, 2013 [facility] [place] [facility] [address] [id number] [place] [address] 2015 Dec, 2013 [facility] [place] [facility] [address] [id number] [place] [address] Dec, 2013 [facility] [place] [facility] [address] [id number] [place] [address] Dec, 2013 [facility] [place] [facility] [address] [id number] [place] [address] Dec, 2013 [facility] [place] [facility] [address] [id number] [place] [address] Dec, 2013 [facility] [place] [facility] [address] [id number] [place] [address] Dec, 2013 [facility] [place] [facility] [address] [id number] [place] [address] Dec, 2013 [facility] [place] [facility] [address] [id number] [place] [address] Nov, [facility] [place] [facility] [address] [id number] [place] [address] Nov, [facility] [place] [facility] [address] [id number] [place] [address] Nov, [facility] [place] [facility] [address] [id number] [place] [address] Nov, [facility] [place] [facility] [address] [address] [id number] [place] [address] Nov, [facility] [place] [facility] [address] [id number] [place] [address] 3186 Nov, [facility] [place] [facility] [address] [id number] [place] [address] 6264 Nov, [facility] [place] [facility] [address] [id number] [place] [address] 1381 Nov, [facility] [place] [facility] [address] [id number] [place] [address] 3726 Nov, [facility] [place] [facility] [address] [id number] [place] [address] 9726 Nov, [facility] [place] [facility] [address] [id number] [place] [address] 8504 Nov, [facility] [place] [facility] [address] [id number] [place] [address] 3732 Nov, [facility] [place] [facility] [address] [id number] [place] [address] 2158 Nov, [facility] [place] [facility] [address] [id number] [place] [address] 2181 Nov, [facility] [place] [facility] [address] [id number] [place] [address] 5681 Oct, [facility] [place] [facility] [address] [id number] [place] [address] 7010 Oct, [facility] [place] [facility] [address] [id number] [place] [address]- 6549 Oct, [facility] [place] [facility] [address] [id number] [place] [address]- 6728 Oct, [facility] [place] [facility] [address] [id number] [place] [address] 3160 Oct, [facility] [place] [facility] [address] [id number] [place] [address]- 7520 Oct, [facility] [place] [facility] [address] [id number] [place] [address]- 2285 Oct, [facility] [place] [facility] [address] [id number] [place] [address]- 7362 Oct, [facility] [place] [facility] [address] [id number] [place] [address] 3197 Oct, [facility] [place] [facility] [address] [id number] [place] [address]- 2452 Oct, [facility] [place] [facility] [address] [id number] [place] [address]- 1043 Oct, [facility] [place] [facility] [address] [id number] [place] [address]- 4560 Oct, [facility] [place] [facility] [address] [id number] [place] [address]- 0085 Oct, [facility] [place] [facility] [address] [id number] [place] [address]- 3968 Oct, [facility] [place] [facility] [address] [id number] [place] [address]- 1110 Oct, [facility] [place] [facility] [address] [id number] [place] [address]- 5695 Oct, [facility] [place] [facility] [address] [id number] [place] [address]- 9476 Oct, [facility] [place] [facility] [address] [id number] [place] [address] 1830 Oct, [facility] [place] [facility] [address] [id number] [place] [address] 8737 Oct, [facility] [place] [facility] [address] [id number] [place] [address]- 1538 Oct, [facility] [place] [facility] [address] [id number] [place] [address]- 2488 Sep, [facility] [place] [facility] [address] [id number] [place] [address]- 9515 Sep, [facility] [place] [facility] [address] [id number] [place] [address]- 5954 Sep, [facility] [place] [facility] [address] [id number] [place] [address]- 3473 Sep, [facility] [place] [facility] [address] [id number] [place] [address]- 2546 Sep, [facility] [place] [facility] [address] [id number] [place] [address]- 8882 Sep, [facility] [place] [facility] [address] [id number] [place] [address]- 0091 August, [facility] [place] [facility] [address] [id number] [place] [address]- 1556 August, [facility] [place] [facility] [address] [id number] [place] [address] 9631 Jul, [facility] [place] [facility] [address] [id number] [place] [address]- 3888 Jul, [facility] [place] [facility] [address] [id number] [place] [address]- 5986 Jul, [facility] [place] [facility] [address] [id number] [place] [address]- 0127 Jul, [facility] [place] [facility] [address] [id number] [place] [address]- 3566 Jul, [facility] [place] [facility] [address] [id number] [place] [address] 1300 Jul, [facility] [place] [facility] [address] [id number] [place] [address]- 9261 Jul, [facility] [place] [facility] [address] [id number] [place] [address]- 0345 Jul, [facility] [place] [facility] [address] [id number] [place] [address]- 6782 Jun, [facility] [place] [facility] [address] [id number] [place] [address]- 3481 Jun, [facility] [place] [facility] [address] [id number] [place] [address]- 5884 Jun, [facility] [place] [facility] [address] [id number] [place] [address]- 6519 Jun, [facility] [place] [facility] [address] [id number] [place] [address]- 3833 Jun, [facility] [place] [facility] [address] [id number] [place] [address]- 0589 May, [facility] [place] [facility] [address] [id number] [place] [address]- 6046 May, [facility] [place] [facility] [address] [id number] [place] [address]- 9561 May, [facility] [place] [facility] [address] [id number] [place] [address]- 9267 May, [facility] [place] [facility] [address] [id number] [place] [address]- 3297 May, [facility] [place] [facility] [address] [facility] [id number] [place] [address]- 4876 May, [facility] [place] [facility] [address] [facility] [id number] [place] [address]- 1794 May, [facility] [place] [facility] [address] [facility] [id number] [place] [address]- 7815 May, [facility] [place] [facility] [address] [facility] [id number] [place] [address]- 9176 May, [facility] [place] [facility] [address] [facility] [id number] [place] [address]- 8163 May, [facility] [place] [facility] [address] [facility] [id number], [place] [address]- 3964 May, [facility] [place] [facility] [address] [facility] [id number] [place] [address]- 9581 Apr, [facility] [place] [facility] [address] [id number] [place] [address]- 3306 Apr, [facility] [place] [facility] [address] [facility] [id number], [place] [address]- 2405 Mar, [facility] [place] [facility] [address] [facility] [id number], [place] [address]- 8923 Mar, [facility] [place] [facility] [address] [id number] [place] [address]- 0289 Mar, [facility] [place] [facility] [address] [id number] [place] [address]- 4033 Mar, [facility] [place] [facility] [address] [id number] [place] [address]- 6276 Mar, [facility] [place] [facility] [address] [id number] [place] [address]- 2234 Jan, [facility] [place] [facility] [address] [id number] [place] [address]- 1989 Jan, [facility] [place] [facility] [address] [id number] [place] [address]- 0876 Jan, [facility] [place] [facility] [address] [facility] [id number] [place] [address]- 7341 Jan, [facility] [place] [facility] [address] [facility] [id number] [place] [address]- 7373 Jan, [facility] [place] [facility] [address] [facility] [id number] [place] [address]- 7634 Jan, [facility] [place] [facility] [address] [facility] [id number], [place] [address]- 8887 Jan, [facility] [place] [facility] [address] [facility] [id number], [place] [address]- 4440 Jan, [facility] [place] [facility] [address] [facility] [id number], [place] [address]- 1902 Jan, [facility] [place] [facility] [address] [id number], [place] [address]- 6139 Jan, [facility] [place] [facility] [address] [facility] [id number], [place] [address]- 2147 Dec, [facility] [place] [facility] [address] [facility] [id number] [place] [address]- 4336 Oct, [facility] [place] [facility] [address] [id number] [place] [address]- 6428 Oct, [facility] [address] [id number] [place] [address]- 5673 Oct, [facility] [place] [facility] [address] [id number] [place] [address]- 2807 Oct, [facility] [address] [id number] [place] [address]- 3946 Oct, [facility] [place] [facility] [address] [id number] [place] [address]- 8401 Oct, [facility] [address] [id number] [place] [address]- 8182 Sep, [facility] [place] [address] [id number] [place] [address]- 4014 August, [facility] [place] [address] [id number] [place] [address]- 3171 August, [facility] [place] [address] [id number] [place] [address]- 0889 August, [facility] [place] [address] [id number] [place] [address]- 4127 August, [facility] [place] [address] [id number] [place] [address]- 9821 August, [facility] [place] [facility] [address] [id number] [place] [address]- 0204 May, [facility] [place] [facility] [address] [id number] [place] [address]- 2474 Apr, [facility] [place] [facility] [address] [id number] [place] [address]- 3450 Apr, [facility] [place] [facility] [address] [id number] [place] [address]- 2546 Apr, [facility] [place] [facility] [address] [id number] [place] [address]- 9633 Apr, [facility] [address] [id number] [place] [address]- 0893 Apr, [facility] [address] [place] [id number] Mar, [facility] [address] [id number] [place] [address]- 3593 Mar, [facility] [address] [id number] [place] [address]- 1220 Mar, [facility] [address] [id number] [place] [address]- 1131 Mar, [facility] [address] [id number] [place] [address]- 9603 Mar, [facility] [address] [id number] [place] [address]- 1230 Mar, [facility] [address] [id number] [place] [address]- 1619 Mar, [facility] [address] [id number] [place] [address]- 1421 Mar, [facility] [address] [id number] [place] [address]- 3385 Mar, [facility] [address] [id number] [place] [address]- 2595 Mar, [facility] [address] [id number] [place] [address]- 3282 Mar, [facility] [address] [id number] [place] [address]- 5019 Mar, [facility] [address] [id number] [place] [address]- 3506 Mar, [facility] [address] [id number] [place] [address]902 Mar, [facility] [address] [id number], [place] [address]- 9637 Mar, [facility] [place] [facility] [address] [id number] [place] [address]- 1350 Mar, [facility] [place] [facility] [address] [id number] [place]95 Mar, [facility] [place] [facility] [address] [id number] [place] [address]- 6714 Mar, [facility] [place] [facility] [address] [id number] [place] [address]- 1515 Mar, [facility] [place] [facility] [address] [id number] [place] [address]- 5191 Mar, [facility] [place] [facility] [address] [id number] [place] [address]- 3876 Feb, [facility] [place] [facility] [address] [id number] [place] [address]- 4070 Feb, [facility] [place] [facility] [address] [id number], [place] [address]- 2252 Feb, [facility] [place] [facility] [address] [id number], [place] [address]- 4317 Feb, [facility] [place] [facility] [address] [id number], [place] [address]- 3416 Jan, [facility] [place] [facility] [address] [id number], [place] [address]- 1933 Jan, [facility] [place] [facility] [address] [id number], [place] [address]- 2177 Jan, [facility] [place] [facility] [address] [id number], [place] [address]- 7969 Jan, [facility] [place] [facility] [address] [facility] [id number], [place] [address]- 6734 Jan, [facility] [place] [facility] [address] [id number] [place] [address]- 9010 Jan, [facility] [place] [facility] [address] [id number] [place] [address]- 1127 12 Jan, 2012 [facility] [place] [facility] [address] [id number] [place] [address]- 6736 12 Jan, 2012 [facility] [place] [facility] [address] [id number] [place] [address]- 6836 10 Jan, 2012 [facility] [place] [facility] [address] [id number] [place] [address]- 3642 27 Dec, 2011 [facility] [place] [facility] [address] [id number] [place] [address]- 8234 14 Dec, 2011 [facility] [place] [facility] [address] [id number] [place] [address]- 9976 12 Dec, 2011 [facility] [place] [facility] [address] [id number] [place] [address]- 6500 06 Dec, 2011 [facility] [place] [facility] [address] [id number] [place] [address]- 9407 06 Dec, 2011 [facility] [place] [facility] [address] [id number] [place] [address]- 1002 Nov, [facility] [place] [facility] [address] [id number] [place] [address]- 1274 Nov, [facility] [place] [facility] [address] [id number] [place] [address]- 1038 23 Nov, 2011 [facility] [place] [facility] [address] [id number] [place] [address]- 6820 14 Nov, 2011 [facility] [place] [facility] [address] [id number] [place] [address]- 3261 13 Nov, 2011 [facility] [place] [facility] [address] [id number] [place] [address]- 4427 Nov, [facility] [place] [facility] [address] [id number] [place] [address]- 3106 08 Nov, 2011 [facility] [place] [facility] [address] [id number] [place] [address]- 3586 Nov, [facility] [place] [facility] [address] [id number] [place] [address]- 0068 Nov, [facility] [place] [facility] [address] [id number] [place] [address]- 8111 19 Oct, 2011 [facility] [place] [facility] [address] [id number] [place] [address]- 3746 13 Oct, 2011 [facility] [place] [facility] [address] [id number] [place] [address]- 2105 Sep, [facility] [place] [facility] [address] [id number] [place] [address]- 8239 Sep, [facility] [place] [facility] [address] [id number] [place] [address]- 0910 Sep, [facility] [place] [facility] [address] [id number] [place] [address]- 6581 August, [facility] [place] [facility] [address] [id number] [place] [address]- 7846 30 Jul, 2011 [facility] [place] [facility] [address] [id number] [place] [address]- 4886 27 Jul, 2011 [facility] [place] [facility] [address] [id number] [place] [address]- 1640 27 Jul, 2011 [facility] [place] [facility] [address] [id number] [place] [address]- 1220 18 Jul, 2011 [facility] [place] [facility] [address] [id number] [place] [address]- 0152 16 Jul, 2011 [facility] [place] [facility] [address] [id number] [place] [address]- 9670 16 Jul, 2011 [facility] [place] [facility] [address] [id number] [place] [address]- 3488 16 Jul, 2011 [facility] [place] [facility] [address] [id number] [place] [address]- 4580 14 Jul, 2011 [facility] [place] [facility] [address] [id number] [place] [address]- 5868 12 Jul, 2011 [facility] [address] [id number] [place] [address]- 1133 Jun, [facility] [place] [facility] [address] [id number] [place] [address]- 9086 18 Jun, 2011 [facility] [place] [facility] [address] [id number] [place] [address]- 5076 15 Jun, 2011 [facility] [place] [facility] [address] [id number] [place] [address]- 6832 12 Jun, 2011 [facility] [place] [facility] [address] [id number] [place] [address]- 1525 Jun, [facility] [place] [facility] [address] [id number] [place] [address]- 2537 Jun, [facility] [address] [id number] [place] [address]- 4384 Jun, [facility] [place] [facility] [address] [id number] [place] [address]- 5742 Jun, [facility] [place] [facility] [address] [id number] [place] [address]- 7288 May, [facility] [place] [facility] [address] [id number] [place] [address]- 1214 May, [facility] [place] [facility] [address] [id number] [place] [address]- 5612 May, [facility] [place] [facility] [address] [id number] [place] [address]- 6782 Apr, [facility] [place] [facility] [address] [id number] [place] [address]- 2393 Apr, [facility] [place] [facility] [address] [id number] [place] [address]- 9886 Apr, [facility] [place] [facility] [address] [id number] [place] [address]- 0561 Mar, [facility] [place] [facility] [address] [id number] [place] [address]- 6152 Mar, [facility] [address] [id number] [place] 3456 Mar, [facility] [address] [id number] [place] [address]- 8136 Mar, [facility] [address] [id number] [place] [address]- 2036 Mar, [facility] [address] [id number] [place] [address]- 0327 Mar, [facility] [address] [id number] [place] [address]- 4996 Mar, [facility] [address] [id number] [place] [address]- 5254 Mar, [facility] [address] [id number] [place] [address]- 3728 Mar, [facility] [address] [id number] [place] [address]- 5030 Mar, [facility] [address] [id number] [place] [address]- 9428 Mar, [facility] [place] [facility] [address] [id number] [place] [address] Mar, [facility] [place] [facility] [address] [id number] [place] [address] Mar, [facility] [place] [facility] [address] [id number] [place] [address] Mar, [facility] [place] [facility] [address] [id number] [place] [address] Feb, [facility] [place] [facility] [address] [id number] [place] [address] Feb, [facility] [place] [facility] [address] [id number] [place] [address] 14 Feb, 2011 [facility] [place] [facility] [address] [id number] [place] [address] 29 Jan, 2011 [facility] [place] [facility] [address] [id number] [place] [address] Jan, [facility] [place] [facility] [address] [id number] [place] [address] Oct, [facility] [place] [facility] [address] [id number] [place] [address] Sep, [facility] [place] [facility] [address] [id number] [place] [address] Mar, [facility] [place] [facility] [address] [id number] [place] [address] Mar, [facility] [place] [facility] [address] [id number] [place] [address] Feb, [facility] [place] [facility] [address] [id number] [place] [address] Feb, [facility] [place] [facility] [address] [id number] [place] [address] Jan, [facility] [place] [facility] [address] [id number] [place] [address] Jan, [facility] [place] [facility] [address] [id number], [place] [address] Mar, [facility] [place] [facility] [address] [id number], [place] [address] Feb, [facility] [place] [facility] [address] [id number] [place] [address] Feb, [facility] [place] [facility] [address] [id number] [place] [address] Feb, [facility] [place] [facility] [address] [id number] [place] [address] Feb, [facility] [place] [facility] [address] [facility] [id number] [place] [id number] Jan, [facility] [address] [facility] [id number] [place] [address] Dec, [facility] [address] [facility] [id number] [place] [address] Nov, IMMUNIZATIONS No Known Immunizations SOCIAL HISTORY Never Assessed REASON FOR VISIT wound care consult PLAN OF CARE VITAL SIGNS MEDICATIONS Unknown Medications RESULTS No Results PROCEDURES No Known procedures INSTRUCTIONS MEDICATIONS ADMINISTERED No Known Medications MEDICAL (GENERAL) HISTORY Type Description Date Hospitalization History [facility] March 2015
[2018-02-25] MEDS ORDERED: NS IV 1000 ML 1,000 ML ONE (07:42)
[2018-02-25] MEDS ORDERED: LIDOCAINE 1% INJ 20 ML 20 ML VIAL ONE (07:42)
[2018-02-25] MEDS ORDERED: HEParin (CATH LAB) 2,000 ML IV ONE (07:42)
--- OUTSIDE RECORDS SUMMARY | 2018-02-25 07:42 | XMS REPORT ---
Author Author STEPHANIE CHRISTIANSEN [facility] Address [address] [place] [address] Care Team Providers Care Clerical Assistant Name Role Phone STEPHANIE CHRISTIANSEN Unavailable PROBLEMS Type Condition ICD9-CM Code MRB10-ID Code Onset Dates Condition Status SNOMED Code Problem Hyperlipidemia, unspecified hyperlipidemia type E78.5 Active 95993882 Problem Long-term insulin use Z79.4 Active 392333579 Problem Abnormal carotid ultrasound R93.8 Active 412601246 Problem Type 2 diabetes mellitus with complication E11.8 Active 57567453 Problem Positive TB test R76.11 Active 777216134 Problem Vascular dementia with behavior disturbance F01.51 Active 669197791 Problem PVD (peripheral vascular disease) I73.9 Active 471116007 Problem Pain R52 Active 22818306 Problem Other chronic osteomyelitis of left foot M86.672 Active 849419867 Problem Nicotine dependence, unspecified, uncomplicated F17.200 Active 077349940 Problem Peripheral vascular disease due to secondary diabetes E13.51 Active 6827406 Problem Nonintractable epilepsy without status epilepticus, unspecified epilepsy type G40.909 Active 030723012 Problem Recurrent major depressive disorder, remission status unspecified F33.9 Active 91167548 Problem Anxiety F41.9 Active 00714673 Problem Generalized anxiety disorder F41.1 Active 04619022 Problem Vascular dementia F01.50 Active 049591937 Problem Pseudobulbar affect F48.2 Active 57727672 Problem Coronary artery 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 Active 8156676401663 Problem Gastroesophageal reflux disease without esophagitis K21.9 Active 797884516 Problem Cerebrovascular accident (CVA) due to other mechanism I63.8 Active 377138581 Problem Pulmonary emphysema, unspecified emphysema type J43.9 Active 85824408 Problem Neuropathy G62.9 Active 827161146 Problem Depression F32.9 Active 84125924 Problem Essential hypertension I10 Active 67587370 Problem Acquired hypothyroidism E03.9 Active 429825421 ALLERGIES No Information ENCOUNTERS Encounter Location Date Diagnosis [facility] [address] [place] [id number] Dec, Crush injury T14.8XXA [facility] [address] [address] 14 Dec, 2017 Generalized anxiety disorder F41.1 [facility] [id number] [place] [address] 21660- 6320 14 Dec, 2017 [facility] [id number] [place] [address] 28991- 3218 Dec, [facility] [id number] [place] [address] 30021- 9634 Nov, Generalized anxiety disorder F41.1 [facility] [id number] [place] [address] 21958- 8600 Oct, Generalized anxiety disorder F41.1 [facility] [id number] [place] [address] 02657- 2978 Oct, Generalized anxiety disorder F41.1 [facility] [address] [place] [id number] Oct, Sepsis, due to unspecified organism A41.9 ; Generalized anxiety disorder F41.1 ; Pain R52 and Depression F32.9 [facility] [address] [address] 9[address] Oct, [facility] [id number] [place] [address] 70670- 5228 Oct, [facility] [id number] [place] [address] 87723- 5405 Sep, Generalized anxiety disorder F41.1 [facility] [address] [place] [address] 79648- 6232 Sep, [facility] [id number] [place] [address] 64898- 5574 Sep, Type 2 diabetes mellitus with complication E11.8 [facility] [address] [address] 1759 August, Generalized anxiety disorder F41.1 [facility] [address] [address] August, [facility] [address] [id number] August, Type 2 diabetes mellitus with complication E11.8 ; Vascular dementia with behavior disturbance F01.51 ; Long-term insulin use Z79.4 and Nicotine dependence, unspecified, uncomplicated F17.200 [facility] [id number] [address] 8578 August, Generalized anxiety disorder F41.1 [facility] [address] [address] 3158 Jul, Generalized anxiety disorder F41.1 [facility] [id number] [address] Jun, Generalized anxiety disorder F41.1 [facility] [id number] [id number] Jun, [facility] [id number] [id number] May, [facility] [address] [address] May, [facility] [id number] [address] May, Generalized anxiety disorder F41.1 [facility] [id number] [address] 7265 Apr, [facility] [address] [id number] Apr, Other chronic osteomyelitis of left foot M86.672 ; Type 2 diabetes mellitus with complication E11.8 ; Vascular dementia F01.50 ; Long-term insulin use Z79.4 ; PVD (peripheral vascular disease) I73.9 and Nicotine abuse 305.1 [facility] [address] [address] Apr, [facility] [id number] [place] [address] [id number] Apr, [facility] [id number] [place] [address] 62907- 7232 Apr, Pain R52 and Generalized anxiety disorder F41.1 [facility] [id number] [place] [address] 04062- 4114 Mar, [facility] [id number] [place] [address] 50667- 4663 Mar, Pain R52 and Generalized anxiety disorder F41.1 [facility] [address] [place] [id number] Feb, Depression F32.9 ; Type 2 diabetes mellitus with complication E11.8 and Nicotine dependence, unspecified, uncomplicated F17.200 [facility] [id number] [place] [address] 72616- 0439 Feb, Generalized anxiety disorder F41.1 and Pain R52 [facility] [address] [place] [address] 58306- 4609 Feb, [facility] [id number] [place] [address] 43127- 7262 Jan, [facility] [address] [place] [address] 23183- 1287 Jan, Generalized anxiety disorder F41.1 and Pain R52 [facility] [id number] [place] [address] 32893- 2073 Jan, [facility] [id number] [place] [address] [id number] Dec, Generalized anxiety disorder F41.1 and Pain R52 [facility] [address] [place] [id number] Dec, Vascular dementia F01.50 ; Pain of left leg M79.605 ; Pain in right leg M79.604 and Type 2 diabetes mellitus with complication E11.8 [facility] [id number] [place] [address] 19863- 1032 11 Dec, 2016 Pain R52 [facility] [id number] [place] [address] 14915- 0536 Dec, [facility] [id number] [place] [address] 12726- 7788 Nov, [facility] [id number] [place] [address] 61528- 5872 Nov, Pain R52 and Generalized anxiety disorder F41.1 [facility] [address] [place] [id number] Nov, Depression F32.9 ; Vascular dementia with behavior disturbance F01.51 and Anxiety F41.9 [facility] [id number] [place] [address] 21251- 5813 Nov, Pain R52 and Generalized anxiety disorder F41.1 [facility] [id number] [place] [address] 14465- 8593 Oct, Generalized anxiety disorder F41.1 [facility] [id number] [place] [address] 27039- 7828 Oct, Pain R52 [facility] [id number] [place] [address] 68453- 4988 Sep, [facility] [address] [place] [id number] Sep, Generalized anxiety disorder F41.1 [facility] [address] [place] [address] 55654- 0773 Sep, Pain R52 [facility] [id number] [place] [address] 17556- 7822 Sep, Generalized anxiety disorder F41.1 [facility] [id number] [place] [address] 63841- 0749 August, [facility] [id number] [place] [address] 32454- 1381 August, [facility] [address] [address]- 7229 August, Pain R52 [facility] [address] [place] [address] 32396- 6266 August, Generalized anxiety disorder F41.1 [facility] [id number] [place] [address] [id number] August, Generalized anxiety disorder F41.1 [facility] [address] [place] [address] 70163- 8722 Jul, Pain R52 [facility] [id number] [place] [address] 478248- 9473 Jul, [facility] [id number] [place] [address] [id number] Jul, [facility] [id number] [place] [address] 26122- 4301 Jun, [facility] [id number] [place] [address] [id number] Jun, Depression F32.9 [facility] [id number] [place] [address] 52074- 6591 Jun, Pain R52 [facility] [id number] [place] [address] 74570- 8458 Jun, [facility] [address] [place] [id number] Jun, Vascular dementia F01.50 and Depression F32.9 [facility] [id number] [address]- 4900 May, Pain R52 [facility] [id number] [place] [address] 74289- 8909 May, [facility] [address] [address]- 4001 May, Pseudobulbar affect F48.2 [facility] [address] [address]- 5658 May, [facility] [id number] [place] [address] 52973- 1015 May, PVD (peripheral vascular disease) I73.9 [facility] [address] [place] [address] 85198- 9848 May, Vascular dementia with behavior disturbance F01.51 [facility] [address] [place] [address] 62369- 9578 May, Vascular dementia with behavior disturbance F01.51 [facility] [id number] [place] [address] 32944- 4274 Apr, [facility] [id number] [place] [address] 75958- 2293 Apr, Pain R52 [facility] [address] [place] [id number] Apr, Generalized anxiety disorder F41.1 ; PVD (peripheral vascular disease) I73.9 and Type 2 diabetes mellitus with complication E11.8 [facility] [address] [place] [address] 53033- 1342 Apr, Vascular dementia with behavior disturbance F01.51 [facility] [address] [place] [address] 87626- 0611 Apr, [facility] [address] [place] [address] 75470- 2234 Apr, Vascular dementia with behavior disturbance F01.51 [facility] [address] [address]- 1271 Apr, [facility] [id number] [place] [address] [id number] Mar, [facility] [address] [place] [address] 28216- 5187 Mar, Type 2 diabetes mellitus with complication E11.8 ; Vascular dementia with behavior disturbance F01.51 and Depression F32.9 [facility] [address] [address]- 4222 Mar, [facility] [id number] [place] [address] 51501- 5882 Feb, [facility] [id number] [place] [address] 69713- 5544 Feb, Viral illness B34.9 [facility] [id number] [place] [address] 25593- 1252 Jan, Diabetes 250.00 [facility] [id number] [place] [address] 71895- 6330 Jan, [facility] [id number] [place] [address] 03429- 1384 Jan, [facility] [id number] [place] [address] 78259- 5324 Jan, [facility] [address] [id number] Jan, Vascular dementia with behavior disturbance F01.51 and Type 2 diabetes mellitus with complication E11.8 [facility] [id number] [place] [address] 62733- 9043 Jan, Pain R52 [facility] [id number] [place] [address] 71709- 4428 Jan, Pain R52 [facility] [id number] [place] [address] 55421- 6340 Dec, [facility] [address] [place] [address] 05010- 9390 Nov, [facility] [address] [id number] Nov, Type 2 diabetes mellitus with complication E11.8 [facility] [address] [address]- 4937 Nov, [facility] [id number] [place] [address] 10229- 9534 Oct, [facility] [id number] [place] [address] 58215- 9105 Oct, [facility] [id number] [place] [address] 38028- 3624 Oct, Vascular dementia with behavior disturbance F01.51 and Type 2 diabetes mellitus with complication E11.8 [facility] [id number] [place] [address] 30970- 7641 August, Type 2 diabetes mellitus with complication E11.8 and Vascular dementia with behavior disturbance F01.51 [place] [id number] [place] [address] 19067- 6589 August, Vascular dementia F01.50 [place] [facility] [id number] [place] [address] 39352- 7601 August, Vascular dementia with behavior disturbance F01.51 [facility] [id number] [place] [address] 72524- 0998 Jul, Vascular dementia with behavior disturbance F01.51 [facility] [id number] [place] [address] 75637- 1079 Jun, Vascular dementia F01.50 [facility] [address] [place] [address] 84406- 1061 Jun, Type 2 diabetes mellitus with complication E11.8 ; Long- term insulin use Z79.4 and Vascular dementia with behavior disturbance F01.51 [facility] [address] [address]- 2839 Jun, Vascular dementia with behavior disturbance F01.51 [facility] [id number] [place] [address] 11271- 6061 Jun, Vascular dementia F01.50 [facility] [id number] [place] [address] 47232- 9241 Apr, [facility] [id number] [place] [address] 71007- 0926 Apr, [facility] [id number] [address]- 4791 Apr, [facility] [address] [address]- 2226 Apr, Type 2 diabetes mellitus with complication E11.8 ; Depression F32.9 and Long-term insulin use Z79.4 [facility] [address] [address]- 2276 Mar, [facility] [address] [place] [id number] Mar, Depression F32.9 ; Type 2 diabetes mellitus with complication E11.8 and Long-term insulin use Z79.4 [facility] [address] [address]- 9726 Feb, [facility] [address] [address]- 0223 Feb, Hyperthyroidism E05.90 [facility] [address] [address]- 3012 Feb, Hyperthyroidism E05.90 [facility] [address] [address]- 5072 Feb, [facility] [id number] [address]- 8694 Jan, [facility] [id number] [address]- 5255 Dec, Nicotine addiction 305.1 [facility] [id number] [address]- 3980 Oct, Nicotine abuse 305.1 [facility] [id number] [address]- 8346 Oct, [facility] [id number] [address]- 7427 August, [facility] [address] [facility] [place] [id number] August, History of drug abuse 305.93 and Diabetes 250.00 [facility] [address] [facility] [id number] [place] [address]- 0353 14 Jul, 2014 [facility] [address] [facility] [id number] [place] [address]- 8082 Jul, [facility] [address] [facility] [id number] [place] [address]- 7863 Jun, [facility] [address] [facility] [id number] [place] [address]- 3539 Jun, [facility] [address] [place] [address]- 2112 Jun, [facility] [id number] [place] [address]- 6578 Jun, [facility] [address] [address]- 3484 Jun, [facility] [id number] [place] [address]- 2531 Jun, [facility] [address] [address]- 2825 May, [facility] [address] [address]- 1057 May, [facility] [address] [address]- 5030 May, [facility] [address] [facility] [id number] [address]- 5320 May, [facility] [id number]- 7810 May, [facility] [id number] 9076 Apr, [facility] [address] [address]- 7124 Apr, [facility] [address] [facility] [place] [id number] Apr, [facility] [address] [id number] [place] [address]- 6127 Apr, [facility] [address] [id number] [place] [address]- 2122 Apr, [facility] [address] [id number] [place] [address]- 2548 Apr, [facility] [place] [facility] [address] [id number] [place] [address]- 3835 Apr, [facility] [address] [id number] [place] [address]- 4034 Apr, [facility] [place] [facility] [address] [id number] [place] [address]- 0302 Mar, [facility] [place] [facility] [address] [id number] [place] [address]- 4749 Mar, [facility] [place] [facility] [address] [id number] [place] [address]- 8579 Mar, [facility] [place] [facility] [address] [id number] [place] [address]- 2281 Mar, [facility] [place] [facility] [address] [id number] [place] [address]- 0016 Mar, [facility] [place] [facility] [address] [id number] [address]- 4636 Mar, [facility] [place] [facility] [address] [id number] [place] [address]- 5984 Mar, [facility] [place] [facility] [address] [id number] [place] [address]- 0255 Mar, [facility] [place] [facility] [address] [id number] [place] [address]- 2386 Feb, [facility] [place] [facility] [address] [id number] [place] [address]- 8711 Feb, [facility] [place] [facility] [address] [id number] [place] [address]- 9408 Feb, [facility] [place] [facility] [address] [id number] [place] [address]- 5984 Feb, [facility] [place] [facility] [address] [id number] [place] [address]- 1175 Feb, [facility] [address] [id number] Feb, [facility] [place] [facility] [address] [id number] [place] [address]- 6412 Feb, [facility] [place] [facility] [address] [id number] [place] [address]- 6158 Feb, [facility] [place] [facility] [address] [id number] [place] [address]- 5064 Feb, [facility] [place] [facility] [address] [id number] [place] [address]- 4814 Feb, [facility] [place] [facility] [address] [id number] [place] [address]- 9676 Jan, [facility] [place] [facility] [address] [id number] [place] [address]- 8910 30 Jan, 2014 [facility] [place] [facility] [address] [id number] [place] [address]- 6933 Jan, [facility] [place] [facility] [address] [id number] [address]- 4292 17 Jan, 2014 [facility] [place] [facility] [address] [id number] [place] [address]- 1063 16 Jan, 2014 [facility] [place] [facility] [address] [id number] [place] [address]- 7268 16 Jan, 2014 [facility] [place] [facility] [address] [id number] [place] [address]- 2733 15 Jan, 2014 [facility] [place] [facility] [address] [id number] [place] [address] 13 Jan, 2013 [facility] [place] [facility] [address] [id number] [place] [address] Jan, 2013 [facility] [place] [facility] [address] [id number] [place] [address] Jan, 2013 [facility] [place] [facility] [address] [id number] [place] [address] Jan, 2013 [facility] [place] [facility] [address] [id number] [place] [address] Jan, [facility] [place] [facility] [address] [id number] [place] [address] Jan, [facility] [place] [facility] [address] [id number] [place] [address] Jan, [facility] [place] [facility] [address] [id number] [place] [address] Jan, [facility] [place] [facility] [address] [id number] [place] [address] Jan, [facility] [place] [facility] [address] [id number] [place] [address] Jan, [facility] [place] [facility] [address] [id number] [place] [address] Dec, 2013 [facility] [place] [facility] [address] [id number] [place] [address] 19 Dec, 2013 [facility] [place] [facility] [address] [id number] [place] [address] 11 Dec, 2013 [facility] [place] [facility] [address] [id number] [place] [address] Dec, 2013 [facility] [place] [facility] [address] [id number] [place] [address] Dec, 2013 [facility] [place] [facility] [address] [id number] [place] [address] Dec, 2013 [facility] [place] [facility] [address] [id number] [place] [address] 08 Dec, 2013 [facility] [place] [facility] [address] [id number] [place] [address] Dec, 2013 [facility] [place] [facility] [address] [id number] [place] [address] Dec, 2013 [facility] [place] [facility] [address] [id number] [place] [address] Dec, 2013 [facility] [place] [facility] [address] [id number] [place] [address] Dec, 2013 [facility] [place] [facility] [address] [id number] [place] [address] Dec, 2013 [facility] [place] [facility] [address] [id number] [place] [address] Dec, 2013 [facility] [place] [facility] [address] [id number] [place] [address] Dec, 2013 [facility] [place] [facility] [address] [id number] [place] [address] Nov, [facility] [place] [facility] [address] [id number] [place] [address] Nov, [facility] [place] [facility] [address] [id number] [place] [address] 0793 Nov, [facility] [place] [facility] [address] [id number] [place] [address] 3954 Nov, [facility] [place] [facility] [address] [id number] [place] [address]- 5049 Nov, [facility] [place] [facility] [address] [id number] [place] [address]- 7666 Nov, [facility] [place] [facility] [address] [id number] [place] [address]- 0718 Nov, [facility] [place] [facility] [address] [id number] [place] [address]- 3668 Nov, [facility] [place] [facility] [address] [id number] [place] [address]- 8911 Nov, [facility] [place] [facility] [address] [id number] [place] [address]- 2956 Nov, [facility] [place] [facility] [address] [id number] [place] [address]- 0584 Nov, [facility] [place] [facility] [address] [id number] [place] [address]- 2974 Nov, [facility] [place] [facility] [address] [id number] [place] [address]- 4741 Nov, [facility] [place] [facility] [address] [id number] [place] [address]- 8319 Nov, [facility] [place] [facility] [address] [id number] [place] [address]- 0169 Oct, [facility] [place] [facility] [address] [id number] [place] [address]- 8589 Oct, [facility] [place] [facility] [address] [id number] [place] [address]- 1195 Oct, [facility] [place] [facility] [address] [id number] [place] [address]- 7136 Oct, [facility] [place] [facility] [address] [id number] [place] [address]- 6986 Oct, [facility] [place] [facility] [address] [id number] [place] [address]- 3483 Oct, [facility] [place] [facility] [address] [id number] [place] [address]- 6229 Oct, [facility] [place] [facility] [address] [id number] [place] [address]- 6468 Oct, [facility] [place] [facility] [address] [id number] [place] [address]- 0300 Oct, [facility] [place] [facility] [address] [id number] [place] [address]- 2205 Oct, [facility] [place] [facility] [address] [id number] [place] [address]- 6152 Oct, [facility] [place] [facility] [address] [id number] [place] [address]- 5730 Oct, [facility] [place] [facility] [address] [id number] [place] [address]- 9483 Oct, [facility] [place] [facility] [address] [id number] [place] [address]- 8766 Oct, [facility] [place] [facility] [address] [id number] [place] [address]- 8031 Oct, [facility] [place] [facility] [address] [id number] [place] [address]- 4128 Oct, [facility] [place] [facility] [address] [id number] [place] [address]- 4575 Oct, [facility] [place] [facility] [address] [id number] [place] [address]- 2418 Oct, [facility] [place] [facility] [address] [id number] [place] [address]- 7771 Oct, [facility] [place] [facility] [address] [id number] [place] [address]- 0171 Oct, [facility] [place] [facility] [address] [id number] [place] [address]- 5521 Sep, [facility] [place] [facility] [address] [id number] [place] [address]- 1274 Sep, [facility] [place] [facility] [address] [id number] [place] [address]- 4282 Sep, [facility] [place] [facility] [address] [id number] [place] [address]- 1817 Sep, [facility] [place] [facility] [address] [id number] [place] [address]- 2546 Sep, [facility] [place] [facility] [address] [id number] [place] [address]- 8011 Sep, [facility] [place] [facility] [address] [id number] [place] [address]- 0405 August, [facility] [place] [facility] [address] [id number] [place] [address]- 4586 August, [facility] [place] [facility] [address] [id number] [place] [address]- 7817 Jul, [facility] [place] [facility] [address] [id number] [place] [address]- 4709 Jul, [facility] [place] [facility] [address] [id number] [place] [address]- 5082 Jul, [facility] [place] [facility] [address] [id number] [place] [address]- 1054 Jul, [facility] [place] [facility] [address] [id number] [place] [address]- 1602 Jul, [facility] [place] [facility] [address] [id number] [place] [address]- 0909 Jul, [facility] [place] [facility] [address] [id number] [place] [address]- 7262 Jul, [facility] [place] [facility] [address] [id number] [place] [address]- 6091 Jul, [facility] [place] [facility] [address] [id number] [place] [address]- 8347 Jun, [facility] [place] [facility] [address] [id number] [place] [address]- 8459 Jun, [facility] [place] [facility] [address] [id number] [place] [address]- 5953 Jun, [facility] [place] [facility] [address] [id number] [place] [address]- 7511 Jun, [facility] [place] [facility] [address] [id number] [place] [address]- 7702 Jun, [facility] [place] [facility] [address] [id number] [place] [address]- 4039 May, [facility] [place] [facility] [address] [id number] [place] [address]- 5156 May, [facility] [place] [facility] [address] [id number] [place] [address]- 2664 May, [facility] [place] [facility] [address] [id number] [place] [address]- 5510 May, [facility] [place] [facility] [address] [id number] [place] [address]- 3289 May, [facility] [place] [facility] [address] [facility] [id number] [place] [address]- 1236 May, [facility] [place] [facility] [address] [facility] [id number] [place] [address]- 3403 May, [facility] [place] [facility] [address] [facility] [id number] [place] [address]- 1427 May, [facility] [place] [facility] [address] [facility] [id number] [place] [address]- 4389 May, [facility] [place] [facility] [address] [facility] [id number] [place] [address]- 3816 May, [facility] [place] [facility] [address] [facility] [id number] [address]- 2883 May, [facility] [place] [facility] [address] [facility] [id number] [place] [address]- 0732 Apr, [facility] [place] [facility] [address] [id number] [place] [address]- 3989 Apr, [facility] [place] [facility] [address] [facility] [id number] [address]- 8457 Mar, [facility] [place] [facility] [address] [facility] [id number] [place] [address]- 9055 Mar, [facility] [place] [facility] [address] [id number] [place] [address]- 7921 Mar, [facility] [place] [facility] [address] [id number] [place] [address]- 6946 Mar, [facility] [place] [facility] [address] [id number] [place] [address]- 3948 Mar, [facility] [place] [facility] [address] [id number] [place] [address]- 6567 Jan, [facility] [place] [facility] [address] [id number] [place] [address]- 8846 Jan, [facility] [place] [facility] [address] [id number] [place] [address]- 2598 Jan, [facility] [place] [facility] [address] [facility] [id number] [place] [address]- 9143 Jan, [facility] [place] [facility] [address] [facility] [id number] [place] [address]- 6793 Jan, [facility] [place] [facility] [address] [facility] [id number] [place] [address]- 2911 Jan, [facility] [place] [facility] [address] [facility] [id number] [place] [address]- 0482 Jan, [facility] [place] [facility] [address] [facility] [id number] [place] [address]- 9664 Jan, [facility] [place] [facility] [address] [facility] [id number] [place] [address]- 7398 Jan, [facility] [place] [facility] [address] [id number] [place] [address]- 2806 Jan, [facility] [place] [facility] [address] [facility] [id number] [place] [address]- 2340 Dec, [facility] [place] [facility] [address] [facility] [id number] [place] [address]- 8077 Oct, [facility] [place] [facility] [address] [id number] [place] [address]- 1959 Oct, [facility] [address] [id number] [place] [address]- 4877 Oct, [facility] [place] [facility] [address] [id number] [place] [address]- 8165 Oct, [facility] [address] [id number] [place] [address]- 4002 Oct, [facility] [place] [facility] [address] [id number] [place] [address]- 5564 Oct, [facility] [address] [id number] [place] [address]- 0533 Sep, [facility] [address] [id number] [place] [address]- 4246 August, [facility] [address] [id number] [place] [address]- 3739 August, [facility] [address] [id number] [place] [address]- 5582 August, [facility] [address] [id number] [place] [address]- 9819 August, [facility] [address] [id number] [place] [address]- 4451 August, [facility] [place] [facility] [address] [id number] [place] [address]- 3054 May, [facility] [place] [facility] [address] [id number] [place] [address]- 0498 Apr, [facility] [place] [facility] [address] [id number] [place] [address]- 9895 Apr, [facility] [place] [facility] [address] [id number] [place] [address]- 2546 Apr, [facility] [place] [facility] [address] [id number] [place] [address]- 2329 Apr, [facility] [address] [id number] [place] [address]- 2270 Apr, [facility] [address] [place] [id number] Mar, [facility] [address] [id number] [place] [address]- 9947 Mar, [facility] [address] [id number] [place] [address]- 9090 Mar, [facility] [address] [id number] [place] [address]- 1486 Mar, [facility] [address] [id number] [place] [address]- 7526 Mar, [facility] [address] [id number] [place] [address]- 0927 Mar, [facility] [address] [id number] [place] [address]- 3589 Mar, [facility] [address] [id number] [place] [address]- 9640 Mar, [facility] [address] [id number] [place] [address]- 7393 Mar, [facility] [address] [id number] [place] [address]- 8298 Mar, [facility] [address] [id number] [place] [address]- 0090 Mar, [facility] [address] [id number] [place] [address]- 5797 Mar, [facility] [address] [id number] [place] [address]- 2827 Mar, [facility] [address] [id number] [place] [address] Mar, [facility] [address] [id number] [place] [address]- 8524 Mar, [facility] [place] [facility] [address] [id number] [place] [address]- 1693 Mar, [facility] [place] [facility] [address] [id number] [place] 7213 Mar, [facility] [place] [facility] [address] [id number] [place] [address]- 2686 Mar, [facility] [place] [facility] [address] [id number] [place] [address]- 2294 Mar, [facility] [place] [facility] [address] [id number] [place] [address]- 6719 Mar, [facility] [place] [facility] [address] [id number] [place] [address]- 9213 Feb, [facility] [place] [facility] [address] [id number] [place] [address]- 1158 Feb, [facility] [place] [facility] [address] [id number] [address]- 0789 Feb, [facility] [place] [facility] [address] [id number] [place] [address]- 3010 Feb, [facility] [place] [facility] [address] [id number] [address]- 5551 Jan, [facility] [place] [facility] [address] [id number] [place] [address]- 7129 Jan, [facility] [place] [facility] [address] [id number] [place] [address]- 1770 Jan, [facility] [place] [facility] [address] [id number] [place] [address]- 1862 Jan, [facility] [place] [facility] [address] [facility] [id number] [place] [address]- 5224 Jan, [facility] [place] [facility] [address] [id number] [place] [address]- 7784 Jan, [facility] [place] [facility] [address] [id number] [place] [address]- 9780 12 Jan, 2012 [facility] [place] [facility] [address] [id number] [place] [address]- 9190 12 Jan, 2012 [facility] [place] [facility] [address] [id number] [place] [address]- 0456 10 Jan, 2012 [facility] [place] [facility] [address] [id number] [place] [address]- 2742 27 Dec, 2011 [facility] [place] [facility] [address] [id number] [place] [address]- 7283 14 Dec, 2011 [facility] [place] [facility] [address] [id number] [place] [address]- 8518 12 Dec, 2011 [facility] [place] [facility] [address] [id number] [place] [address]- 9343 06 Dec, 2011 [facility] [place] [facility] [address] [id number] [place] [address]- 0630 06 Dec, 2011 [facility] [place] [facility] [address] [id number] [place] [address]- 8727 Nov, [facility] [place] [facility] [address] [id number] [place] [address]- 1036 Nov, [facility] [place] [facility] [address] [id number] [place] [address]- 3167 23 Nov, 2011 [facility] [place] [facility] [address] [id number] [place] [address]- 1113 14 Nov, 2011 [facility] [place] [facility] [address] [id number] [place] [address]- 3679 13 Nov, 2011 [facility] [place] [facility] [address] [id number] [place] [address]- 1051 Nov, [facility] [place] [facility] [address] [id number] [place] [address]- 6085 08 Nov, 2011 [facility] [place] [facility] [address] [id number] [place] [address]- 7406 Nov, [facility] [place] [facility] [address] [id number] [place] [address]- 1249 Nov, [facility] [place] [facility] [address] [id number] [place] [address]- 6355 19 Oct, 2011 [facility] [place] [facility] [address] [id number] [place] [address]- 0437 13 Oct, 2011 [facility] [place] [facility] [address] [id number] [place] [address]- 5784 Sep, [facility] [place] [facility] [address] [id number] [place] [address]- 0814 Sep, [facility] [place] [facility] [address] [id number] [place] [address]- 8232 Sep, [facility] [place] [facility] [address] [id number] [place] [address]- 2140 August, [facility] [place] [facility] [address] [id number] [place] [address]- 6203 30 Jul, 2011 [facility] [place] [facility] [address] [id number] [place] [address]- 8664 27 Jul, 2011 [facility] [place] [facility] [address] [id number] [place] [address]- 8945 27 Jul, 2011 [facility] [place] [facility] [address] [id number] [place] [address]- 2505 18 Jul, 2011 [facility] [place] [facility] [address] [id number] [place] [address]- 5617 16 Jul, 2011 [facility] [place] [facility] [address] [id number] [place] [address]- 9298 16 Jul, 2011 [facility] [place] [facility] [address] [id number] [place] [address]- 9885 16 Jul, 2011 [facility] [place] [facility] [address] [id number] [place] [address]- 8157 14 Jul, 2011 [facility] [place] [facility] [address] [id number] [place] [address]- 8942 12 Jul, 2011 [facility] [address] [id number] [place] [address]- 1916 Jun, [facility] [place] [facility] [address] [id number] [place] [address]- 1053 18 Jun, 2011 [facility] [place] [facility] [address] [id number] [place] [address]- 3796 15 Jun, 2011 [facility] [place] [facility] [address] [id number] [place] [address]- 0859 12 Jun, 2011 [facility] [place] [facility] [address] [id number] [place] [address]- 7983 Jun, [facility] [place] [facility] [address] [id number] [place] [address]- 2052 Jun, [facility] [address] [id number] [place] [address]- 6866 Jun, [facility] [place] [facility] [address] [id number] [place] [address]- 4181 Jun, [facility] [place] [facility] [address] [id number] [place] [address]- 2726 May, [facility] [place] [facility] [address] [id number] [place] [address]- 5095 May, [facility] [place] [facility] [address] [id number] [place] [address]- 0627 May, [facility] [place] [facility] [address] [id number] [place] [address]- 5041 Apr, [facility] [place] [facility] [address] [id number] [place] [address]- 3828 Apr, [facility] [place] [facility] [address] [id number] [place] [address]- 6756 Apr, [facility] [place] [facility] [address] [id number] [place] [address]- 9106 Mar, [facility] [place] [facility] [address] [id number] [place] [address]- 0261 Mar, [facility] [address] [id number] [place]26 Mar, [facility] [address] [id number] [place] [address]- 4376 Mar, [facility] [address] [id number] [place] [address]- 0251 Mar, [facility] [address] [id number] [place] [address]- 3269 Mar, [facility] [address] [id number] [place] [address]- 3455 Mar, [facility] [address] [id number] [place] [address]- 0408 Mar, [facility] [address] [id number] [place] [address]- 9[address] Mar, [facility] [address] [id number] [place] [address] Mar, [facility] [address] [id number] [place] [address] Mar, [facility] [place] [facility] [address] [id number] [place] [address] Mar, [facility] [place] [facility] [address] [id number] [place] [address] Mar, [facility] [place] [facility] [address] [id number] [place] [address] Mar, [facility] [place] [facility] [address] [id number] [place] [address] Feb, [facility] [place] [facility] [address] [id number] [place] [address] Feb, [facility] [place] [facility] [address] [id number] [place] [address] 14 Feb, 2011 [facility] [place] [facility] [address] [id number] [place] [address] 29 Jan, 2011 [facility] [place] [facility] [address] [id number] [place] [address] Jan, [facility] [place] [facility] [address] [id number] [place] [address] Oct, [facility] [place] [facility] [address] [id number] [place] [address] Sep, [facility] [place] [facility] [address] [id number] [place] [address] Mar, [facility] [place] [facility] [address] [id number] [place] [address] Mar, [facility] [place] [facility] [address] [id number] [place] [address] Feb, [facility] [place] [facility] [address] [id number] [place] [address] Feb, [facility] [place] [facility] [address] [id number] [place] [address] Jan, [facility] [place] [facility] [address] [id number] [place] [address] Jan, [facility] [place] [facility] [address] [id number] [address] Mar, [facility] [place] [facility] [address] [id number] [address] Feb, [facility] [place] [facility] [address] [id number] [place] [address] Feb, [facility] [place] [facility] [address] [id number] [place] [address] Feb, [facility] [place] [facility] [address] [id number] [place] [address] Feb, [facility] [place] [facility] [address] [facility] [id number] [place] [address] Jan, [facility] [address] [facility] [id number] [address] Dec, [facility] [address] [facility] [id number] [place] [address] [address] Nov, IMMUNIZATIONS No Known Immunizations SOCIAL HISTORY [...]
--- OUTSIDE RECORDS SUMMARY | 2018-02-25 07:43 | XMS REPORT ---
Author Author STEPHANIE CHRISTIANSEN [facility] Address [address] [place] [address] Care Team Providers Care Machine Tack Puller Name Role Phone STEPHANIE CHRISTIANSEN Unavailable PROBLEMS Type Condition ICD9-CM Code QVG30-BJ Code Onset Dates Condition Status SNOMED Code Problem Hyperlipidemia, unspecified hyperlipidemia type E78.5 Active 77115477 Problem Long-term insulin use Z79.4 Active 535243896 Problem Abnormal carotid ultrasound R93.8 Active 826418367 Problem Type 2 diabetes mellitus with complication E11.8 Active 91871781 Problem Positive TB test R76.11 Active 842865222 Problem Vascular dementia with behavior disturbance F01.51 Active 315646955 Problem PVD (peripheral vascular disease) I73.9 Active 511512322 Problem Pain R52 Active 31189350 Problem Other chronic osteomyelitis of left foot M86.672 Active 817793957 Problem Nicotine dependence, unspecified, uncomplicated F17.200 Active 841090453 Problem Peripheral vascular disease due to secondary diabetes E13.51 Active 0533623 Problem Nonintractable epilepsy without status epilepticus, unspecified epilepsy type G40.909 Active 750454226 Problem Recurrent major depressive disorder, remission status unspecified F33.9 Active 96371511 Problem Anxiety F41.9 Active 85282017 Problem Generalized anxiety disorder F41.1 Active 89152288 Problem Vascular dementia F01.50 Active 751506970 Problem Pseudobulbar affect F48.2 Active 21480577 Problem Coronary artery disease involving [place] coronary artery of [place] heart without angina pectoris I25.10 Active 6870816102087 Problem Gastroesophageal reflux disease without esophagitis K21.9 Active 573948004 Problem Cerebrovascular accident (CVA) due to other mechanism I63.8 Active 111432374 Problem Pulmonary emphysema, unspecified emphysema type J43.9 Active 27400435 Problem Neuropathy G62.9 Active 244877909 Problem Depression F32.9 Active 62393696 Problem Essential hypertension I10 Active 09355912 Problem Acquired hypothyroidism E03.9 Active 431926534 ALLERGIES No Information ENCOUNTERS Encounter Location Date Diagnosis [facility] [id number] [place] [address] 67367- 5443 14 Dec, 2017 Generalized anxiety disorder F41.1 [facility] [id number] [place] [address] 69001- 2880 14 Dec, 2017 [facility] [id number] [place] [address] 90726- 6844 04 Dec, 2017 [facility] [id number] [place] [address] 18841- 9818 Nov, Generalized anxiety disorder F41.1 [facility] [id number] [place] [address] 07202- 1277 Oct, Generalized anxiety disorder F41.1 [facility] [id number] [place] [address] 40423- 9011 Oct, Generalized anxiety disorder F41.1 [facility] [address] [place] [id number] Oct, Sepsis, due to unspecified organism A41.9 ; Generalized anxiety disorder F41.1 ; Pain R52 and Depression F32.9 [facility] [id number] [place] [address] 16386- 0053 Oct, [facility] [id number] [place] [address] 97981- 5851 Oct, [facility] [id number] [place] [address] 77286- 0078 Sep, Generalized anxiety disorder F41.1 [facility] [id number] [place] [address] 82307- 6027 Sep, [facility] [id number] [place] [address] 70681- 7776 Sep, Type 2 diabetes mellitus with complication E11.8 [facility] [id number] [place] [address] 01569- 4607 August, Generalized anxiety disorder F41.1 [facility] [address] [address] 97[address] August, [facility] [address] [id number] August, Type 2 diabetes mellitus with complication E11.8 ; Vascular dementia with behavior disturbance F01.51 ; Long-term insulin use Z79.4 and Nicotine dependence, unspecified, uncomplicated F17.200 [facility] [address], [place] [address]- 9126 August, Generalized anxiety disorder F41.1 [facility] [address] [address] 2238 Jul, Generalized anxiety disorder F41.1 [facility] [id number] [id number] Jun, Generalized anxiety disorder F41.1 [facility] [id number] [place] [address] [id number] Jun, [facility] [id number] [place] [address] [id number] May, [facility] [address] [place] [address] [id number]- 0849 May, [facility] [id number] [id number] May, Generalized anxiety disorder F41.1 [facility] [address] [place] [address] 80677- 6926 Apr, [facility] [address] [id number] Apr, Other chronic osteomyelitis of left foot M86.672 ; Type 2 diabetes mellitus with complication E11.8 ; Vascular dementia F01.50 ; Long-term insulin use Z79.4 ; PVD (peripheral vascular disease) I73.9 and Nicotine abuse 305.1 [facility] [address], [place] [address]- 8074 Apr, [facility] [id number] [id number] Apr, [facility] [address] [place] [address] 27479- 1289 Apr, Pain R52 and Generalized anxiety disorder F41.1 [facility] [address], [place] [address]- 0697 Mar, [facility] [id number] [place] [address] 65607- 8814 Mar, Pain R52 and Generalized anxiety disorder F41.1 [facility] [address] [id number] Feb, Depression F32.9 ; Type 2 diabetes mellitus with complication E11.8 and Nicotine dependence, unspecified, uncomplicated F17.200 [facility] [address], [place] [address]- 5303 Feb, Generalized anxiety disorder F41.1 and Pain R52 [facility] [address] [place] [address] 91158- 8441 Feb, [facility] [address] [place] [address] 50811- 7249 Jan, [facility] [address], [place] [address]- 5401 Jan, Generalized anxiety disorder F41.1 and Pain R52 [facility] [address], [place] [address]- 7745 Jan, [facility] [id number] [address] Dec, Generalized anxiety disorder F41.1 and Pain R52 [facility] [address] [id number] Dec, Vascular dementia F01.50 ; Pain of left leg M79.605 ; Pain in right leg M79.604 and Type 2 diabetes mellitus with complication E11.8 [facility] [address], [place] [address]- 0039 Dec, Pain R52 [facility] [address] [facility] [id number], [place] [address]- 0500 Dec, [facility] [address] [facility] [id number] [place] [address] 32306- 1440 Nov, [facility] [address] [facility] [id number] [place] [address] 08703- 0630 Nov, Pain R52 and Generalized anxiety disorder F41.1 [facility] [address] [place] [id number] Nov, Depression F32.9 ; Vascular dementia with behavior disturbance F01.51 and Anxiety F41.9 [facility] [address] [facility] [id number] [place] [address] 59155- 3299 Nov, Pain R52 and Generalized anxiety disorder F41.1 [facility] [id number] [place] [address] 07043- 8650 Oct, Generalized anxiety disorder F41.1 [facility] [address] [facility] [id number] [place] [address] 10320- 4913 Oct, Pain R52 [facility] [id number] [place] [address] 92868- 6326 14 Sep, 2016 [facility] [address] [place] [id number] Sep, Generalized anxiety disorder F41.1 [facility] [address] [place] [address] 12864- 3413 Sep, Pain R52 [facility] [address] [facility] [id number], [place] [address]- 8934 Sep, Generalized anxiety disorder F41.1 [facility] [address] [facility] [id number] [place] [address] 87317- 5646 August, [facility] [address] [facility] [id number], [place] [address]- 8161 August, [facility] [id number] [place] [address] 25893- 2068 August, Pain R52 [facility] [address] [place] [address] 63348- 9995 August, Generalized anxiety disorder F41.1 [facility] [id number] [place] [address] [id number] August, Generalized anxiety disorder F41.1 [facility] [id number] [place] [address] 84454- 1029 Jul, Pain R52 [facility] [id number] [place] [address] 39671- 2307 Jul, [facility] [address] [id number] Jul, [facility] [id number] [place] [address] 01891- 7295 Jun, [facility] [id number] [place] [address] [id number] Jun, Depression F32.9 [facility] [id number] [place] [address] 99373- 9605 Jun, Pain R52 [facility] [id number] [place] [address] 71390- 7165 Jun, [facility] [address] [place] [id number] Jun, Vascular dementia F01.50 and Depression F32.9 [facility] [id number] [place] [address] 88407- 6707 May, Pain R52 [facility] [address] [place] [address] 26601- 8174 May, [facility] [id number] [place] [address] 54978- 4420 May, Pseudobulbar affect F48.2 [facility] [address] [place] [address] 40448- 0057 May, [facility] [address], [place] [address]- 2498 May, PVD (peripheral vascular disease) I73.9 [facility] [id number] [place] [address] 85514- 3768 May, Vascular dementia with behavior disturbance F01.51 [facility] [address] [place] [address] 24287- 5108 May, Vascular dementia with behavior disturbance F01.51 [facility] [address] [place] [address] 14166- 7065 Apr, [facility] [id number] [place] [address] 07890- 4564 Apr, Pain R52 [facility] [address] [facility] [place] [id number] Apr, Generalized anxiety disorder F41.1 ; PVD (peripheral vascular disease) I73.9 and Type 2 diabetes mellitus with complication E11.8 [facility] [address] [place] [address] 02226- 8342 Apr, Vascular dementia with behavior disturbance F01.51 [facility] [id number] [place] [address] 63925- 1792 Apr, [facility] [id number] [place] [address] 96777- 7974 Apr, Vascular dementia with behavior disturbance F01.51 [facility] [address], [place] [address]- 3966 Apr, [facility] [id number] [place] [address] [id number] Mar, [facility] [id number] [place] [address] 57603- 4752 Mar, Type 2 diabetes mellitus with complication E11.8 ; Vascular dementia with behavior disturbance F01.51 and Depression F32.9 [facility] [address] [place] [address] 34955- 2117 Mar, [facility] [address], [place] [address]- 0650 Feb, [facility] [id number] [place] [address] 23137- 4886 Feb, Viral illness B34.9 [facility] [id number] [place] [address] 07154- 0067 Jan, Diabetes 250.00 [facility] [id number] [place] [address] 56655- 8364 Jan, [facility] [id number] [place] [address] 91442- 8771 Jan, [facility] [id number] [place] [address] 79843- 0568 Jan, [facility] [address] [place] [id number] Jan, Vascular dementia with behavior disturbance F01.51 and Type 2 diabetes mellitus with complication E11.8 [facility] [address], [place] [address]- 9206 Jan, Pain R52 [facility] [address] [place] [address] 59465- 0862 Jan, Pain R52 [facility] [address], [place] [address]- 5709 Dec, [facility] [address], [place] [address]- 3657 Nov, [facility] [address] [place] [id number] Nov, Type 2 diabetes mellitus with complication E11.8 [facility] [address], [place] [address]- 3580 Nov, [facility] [address], [place] [address]- 5037 Oct, [facility] [id number], [place] [address]- 6668 Oct, [facility] [address] [place] [address] 67976- 4626 Oct, Vascular dementia with behavior disturbance F01.51 and Type 2 diabetes mellitus with complication E11.8 [facility] [address], [place] [address]- 3998 August, Type 2 diabetes mellitus with complication E11.8 and Vascular dementia with behavior disturbance F01.51 [facility] [address], [place] [address]- 4821 August, Vascular dementia F01.50 [facility] [id number] [place] [address] 79900- 9461 August, Vascular dementia with behavior disturbance F01.51 [facility] [id number], [place] [address]- 2580 Jul, Vascular dementia with behavior disturbance F01.51 [facility] [address], [place] [address]- 5695 Jun, Vascular dementia F01.50 [facility] [id number] [place] [address] 71248- 3199 Jun, Type 2 diabetes mellitus with complication E11.8 ; Long- term insulin use Z79.4 and Vascular dementia with behavior disturbance F01.51 [facility] [address], [place] [address]- 8921 Jun, Vascular dementia with behavior disturbance F01.51 [facility] [address], [place] [address]- 6292 Jun, Vascular dementia F01.50 [facility] [address], [place] [address]- 3882 Apr, [facility] [address], [place] [address]- 8682 Apr, [facility] [id number] [place] [address] 77916- 1741 Apr, [facility] [id number], [place] [address]- 0305 Apr, Type 2 diabetes mellitus with complication E11.8 ; Depression F32.9 and Long-term insulin use Z79.4 [facility] [address] 8946 Mar, [facility] [address] [id number] Mar, Depression F32.9 ; Type 2 diabetes mellitus with complication E11.8 and Long-term insulin use Z79.4 [facility] [address]- 2149 Feb, [facility] [address], [place] [address]- 5670 Feb, Hyperthyroidism E05.90 [facility] [address], [place] [address]- 4110 Feb, Hyperthyroidism E05.90 [facility] [address], [place] [address]- 4755 Feb, [facility] [address]- 2668 Jan, [facility] [id number]- 3589 Dec, Nicotine addiction 305.1 [facility] [address], [place] [address]- 9459 Oct, Nicotine abuse 305.1 [facility] [address] 1887 Oct, [facility] [address], [place] [address]- 0434 August, [facility] [address] [id number] August, History of drug abuse 305.93 and Diabetes 250.00 [facility] [address] [id number] [place] [address]- 1952 14 Jul, 2014 [facility] [place] [facility] [address] [id number] [place] [address]- 6014 Jul, [facility] [place] [facility] [address] [id number] [place] [address]- 9535 18 Jun, 2014 [facility] [place] [facility] [address] [id number] [place] [address]- 3870 Jun, [facility] [place] [facility] [address] [id number] [place] [address]- 9952 Jun, [facility] [place] [facility] [address] [id number] [place] [address]- 0238 Jun, [facility] [place] [facility] [address] [facility] [id number] [place] [address]- 6184 Jun, [facility] [place] [facility] [address] [id number] [place] [address]- 6310 Jun, [facility] [place] [facility] [address] [id number] [place] [address]- 8251 May, [facility] [place] [facility] [address] [id number] [place] [address]- 9820 May, [facility] [place] [facility] [address] [facility] [id number] [place] [address]- 2891 May, [facility] [place] [facility] [address] [id number], [place] [address]- 3070 May, [facility] [place] [facility] [address] [id number] [place] [address]- 4157 May, [facility] [place] [facility] [address] [id number] [place] [address]- 2986 Apr, [facility] [place] [facility] [address] [id number] [place] [address]- 0628 Apr, [facility] [address] [id number] 07 Apr, 2014 [facility] [place] [facility] [address] [id number] [place] [address]- 9102 Apr, [facility] [place] [facility] [address] [id number] [place] [address]- 3380 Apr, [facility] [place] [facility] [address] [facility] [id number] [place] [address]- 5302 Apr, [facility] [place] [facility] [address] [id number] [place] [address]- 5559 Apr, [facility] [place] [facility] [address] [id number] [place] [address]- 8820 Apr, [facility] [place] [facility] [address] [id number] [place] [address]- 9457 Mar, [facility] [place] [facility] [address] [id number] [place] [address]- 6295 Mar, [facility] [place] [facility] [address] [id number] [place] [address]- 5067 Mar, [facility] [place] [facility] [address] [id number] [place] [address]- 5211 Mar, [facility] [place] [facility] [address] [id number] [place] [address]- 3948 Mar, [facility] [place] [facility] [address] [id number], [place] [address]- 5977 Mar, [facility] [place] [facility] [address] [id number], [place] [address]- 2975 Mar, [facility] [place] [facility] [address] [id number] [place] [address]- 7309 Mar, [facility] [place] [facility] [address] [id number] [place] [address]- 3277 Feb, [facility] [place] [facility] [address] [id number] [place] [address]- 1575 Feb, [facility] [place] [facility] [address] [id number] [place] [address]- 5640 Feb, [facility] [place] [facility] [address] [id number] [place] [address]- 9501 Feb, [facility] [place] [facility] [address] [id number] [place] [address]- 7165 Feb, [facility] [address] [id number] Feb, [facility] [place] [facility] [address] [id number] [place] [address]- 8355 Feb, [facility] [place] [facility] [address] [id number] [place] [address]- 3121 Feb, [facility] [place] [facility] [address] [id number] [place] [address]- 9138 Feb, [facility] [place] [facility] [address] [id number] [place] [address]- 9605 Feb, [facility] [place] [facility] [address] [id number] [place] [address]- 6605 Jan, [facility] [place] [facility] [address] [id number] [place] [address]- 7214 30 Jan, 2014 [facility] [place] [facility] [address] [id number] [place] [address]- 8411 Jan, [facility] [place] [facility] [address] [id number] [place] [address]- 5662 17 Jan, 2014 [facility] [place] [facility] [address] [id number], [place] [address]- 1687 16 Jan, 2014 [facility] [place] [facility] [address] [id number] [place] [address]- 4279 16 Jan, 2014 [facility] [place] [facility] [address] [id number] [place] [address]- 2231 15 Jan, 2014 [facility] [place] [facility] [address] [id number] [place] [address]- 6621 13 Jan, 2014 [facility] [place] [facility] [address] [id number] [place] [address]- 1317 13 Jan, 2013 [facility] [place] [facility] [address] [id number] [place] [address]- 1228 Jan, 2013 [facility] [place] [facility] [address] [id number] [place] [address]- 3706 Jan, 2013 [facility] [place] [facility] [address] [id number] [place] [address] Jan, 2013 [facility] [place] [facility] [address] [id number] [place] [address] Jan, 2013 [facility] [place] [facility] [address] [id number] [place] [address] Jan, [facility] [place] [facility] [address] [id number] [place] [address] Jan, [facility] [place] [facility] [address] [id number] [place] [address] Jan, 2013 [facility] [place] [facility] [address] [id number] [place] [address] Jan, [facility] [place] [facility] [address] [id number] [place] [address] Dec, 2013 [facility] [place] [facility] [address] [id number] [place] [address] 19 Sep, 2013 [facility] [place] [facility] [address] [id number] [place] [address] 11 Dec, 2013 [facility] [place] [facility] [address] [id number] [place] [address] 11 Sep, 2013 [facility] [place] [facility] [address] [id number] [place] [address] 09 Sep, 2013 [facility] [place] [facility] [address] [id number] [place] [address] 09 Sep, 2013 [facility] [place] [facility] [address] [id number] [place] [address] 08 Sep, 2013 [facility] [place] [facility] [address] [id number] [place] [address] 08 Dec, 2013 [facility] [place] [facility] [address] [id number] [place] [address] Dec, 2013 [facility] [place] [facility] [address] [id number] [place] [address] Dec, 2013 [facility] [place] [facility] [address] [id number] [place] [address] Dec, 2013 [facility] [place] [facility] [address] [id number] [place] [address]- 4762 Dec, 2013 [facility] [place] [facility] [address] [id number] [place] [address] Dec, [facility] [place] [facility] [address] [id number] [place] [address] 9888 Dec, [facility] [place] [facility] [address] [id number] [place] [address] 9538 Nov, [facility] [place] [facility] [address] [id number] [place] [address] 6308 Nov, [facility] [place] [facility] [address] [id number] [place] [address]- 2312 Nov, [facility] [place] [facility] [address] [id number] [place] [address]- 6499 Nov, [facility] [place] [facility] [address] [id number] [place] [address]- 7417 Nov, [facility] [place] [facility] [address] [id number] [place] [address]- 7817 Nov, [facility] [place] [facility] [address] [id number] [place] [address]- 1778 Nov, [facility] [place] [facility] [address] [id number] [place] [address]- 2910 Nov, [facility] [place] [facility] [address] [id number] [place] [address] 8001 Nov, [facility] [place] [facility] [address] [id number] [place] [address]- 4515 Nov, [facility] [place] [facility] [address] [id number] [place] [address]- 5913 Nov, [facility] [place] [facility] [address] [id number] [place] [address]- 6131 Nov, [facility] [place] [facility] [address] [id number] [place] [address]- 7688 Nov, [facility] [place] [facility] [address] [id number] [place] [address]- 7716 Nov, [facility] [place] [facility] [address] [id number] [place] [address]- 7081 Oct, [facility] [place] [facility] [address] [id number] [place] [address]- 0757 Oct, [facility] [place] [facility] [address] [id number] [place] [address]- 0792 Oct, [facility] [place] [facility] [address] [id number] [place] [address]- 2988 Oct, [facility] [place] [facility] [address] [id number] [place] [address]- 3560 Oct, [facility] [place] [facility] [address] [id number] [place] [address]- 2476 Oct, [facility] [place] [facility] [address] [id number] [place] [address]- 2471 Oct, [facility] [place] [facility] [address] [id number] [place] [address]- 1944 Oct, [facility] [place] [facility] [address] [id number] [place] [address]- 3605 Oct, [facility] [place] [facility] [address] [id number] [place] [address]- 5264 Oct, [facility] [place] [facility] [address] [id number] [place] [address]- 9487 Oct, [facility] [place] [facility] [address] [id number] [place] [address]- 9830 Oct, [facility] [place] [facility] [address] [id number] [place] [address]- 9054 Oct, [facility] [place] [facility] [address] [id number] [place] [address]- 8735 Oct, [facility] [place] [facility] [address] [id number] [place] [address]- 1172 Oct, [facility] [place] [facility] [address] [id number] [place] [address]- 5485 Oct, [facility] [place] [facility] [address] [id number] [place] [address]- 6314 Oct, [facility] [place] [facility] [address] [id number] [place] [address]- 7359 Oct, [facility] [place] [facility] [address] [id number] [place] [address]- 2994 Oct, [facility] [place] [facility] [address] [id number] [place] [address]- 7322 Oct, [facility] [place] [facility] [address] [id number] [place] [address]- 4843 Sep, [facility] [place] [facility] [address] [id number] [place] [address]- 4366 Sep, [facility] [place] [facility] [address] [id number] [place] [address]- 6654 Sep, [facility] [place] [facility] [address] [id number] [place] [address]- 5928 Sep, [facility] [place] [facility] [address] [id number] [place] [address]- 9300 Sep, [facility] [place] [facility] [address] [id number] [place] [address]- 0101 Sep, [facility] [place] [facility] [address] [id number] [place] [address]- 0516 August, [facility] [place] [facility] [address] [id number] [place] [address]- 3493 August, [facility] [place] [facility] [address] [id number] [place] [address]- 6095 Jul, [facility] [place] [facility] [address] [id number] [place] [address]- 9808 Jul, [facility] [place] [facility] [address] [id number] [place] [address]- 7853 Jul, [facility] [place] [facility] [address] [id number] [place] [address]- 1839 Jul, [facility] [place] [facility] [address] [id number] [place] [address] Jul, [facility] [place] [facility] [address] [id number] [place] [address]- 9928 Jul, [facility] [place] [facility] [address] [id number] [place] [address]- 8584 Jul, [facility] [place] [facility] [address] [id number] [place] [address]- 6813 Jul, [facility] [place] [facility] [address] [id number] [place] [address]- 9466 Jun, [facility] [place] [facility] [address] [id number] [place] [address]- 3077 Jun, [facility] [place] [facility] [address] [id number] [place] [address]- 2676 Jun, [facility] [place] [facility] [address] [id number] [place] [address]- 4316 Jun, [facility] [place] [facility] [address] [id number] [place] [address]- 1968 Jun, [facility] [place] [facility] [address] [id number] [place] [address]- 5156 May, [facility] [place] [facility] [address] [id number] [place] [address]- 6016 May, [facility] [place] [facility] [address] [id number] [place] [address]- 1086 May, [facility] [place] [facility] [address] [id number] [place] [address]- 5846 May, [facility] [place] [facility] [address] [id number] [place] [address]- 4966 May, [facility] [place] [facility] [address] [id number] [place] [address]- 6106 May, [facility] [place] [facility] [address] [facility] [id number] [place] [address]- 9366 May, [facility] [place] [facility] [address] [facility] [id number] [place] [address]- 9499 May, [facility] [place] [facility] [address] [facility] [id number] [place] [address]- 8857 May, [facility] [place] [facility] [address] [facility] [id number] [place] [address]- 7688 May, [facility] [place] [facility] [address] [facility] [id number] [place] [address]- 0486 May, [facility] [place] [facility] [address] [facility] [id number], [place] [address]- 8943 Apr, [facility] [place] [facility] [address] [id number] [place] [address]- 2816 Apr, [facility] [place] [facility] [address] [facility] [id number] [place] [address]- 8546 Mar, [facility] [place] [facility] [address] [facility] [id number], [place] [address]- 1528 Mar, [facility] [place] [facility] [address] [facility] [id number], [place] [address]- 0172 Mar, [facility] [place] [facility] [address] [id number] [place] [address]- 5786 Mar, [facility] [place] [facility] [address] [id number] [place] [address]- 0017 Mar, [facility] [place] [facility] [address] [id number] [place] [address]- 2670 Jan, [facility] [place] [facility] [address] [id number] [place] [address]- 2043 Jan, [facility] [place] [facility] [address] [id number] [place] [address]- 5674 Jan, [facility] [place] [facility] [address] [id number] [place] [address]- 3896 Jan, [facility] [place] [facility] [address] [facility] [id number] [place] [address]- 8342 Jan, [facility] [place] [facility] [address] [id number] [place] [address]- 2704 Jan, [facility] [place] [facility] [address] [facility] [id number] [place] [address]- 0645 Jan, [facility] [place] [facility] [address] [facility] [id number] [place] [address]- 4166 Jan, [facility] [place] [facility] [address] [id number], [place] [address]- 0584 Jan, [facility] [place] [facility] [address] [id number], [place] [address]- 0931 Jan, [facility] [place] [facility] [address] [id number] [place] [address]- 5849 Dec, [facility] [place] [facility] [address] [id number] [place] [address]- 0105 Oct, [facility] [place] [facility] [address] [facility] [id number] [place] [address]- 4654 Oct, [facility] [place] [facility] [address] [id number] [place] [address]- 2330 Oct, [facility] [address] [id number] [place] [address]- 4858 Oct, [facility] [place] [facility] [address] [id number] [place] [address]- 0128 Oct, [facility] [address] [id number] [place] [address]- 3630 Oct, [facility] [address] [id number] [place] [address]- 3157 Sep, [facility] [address] [id number] [place] [address]- 4195 August, [facility] [address] [id number] [place] [address]- 4943 August, [facility] [address] [id number] [place] [address]- 0891 August, [facility] [address] [id number] [place] [address]- 5381 August, [facility] [address] [id number] [place] [address]- 3728 August, [facility] [address] [id number] [place] [address]- 4389 May, [facility] [address] [id number] [place] [address]- 0182 Apr, [facility] [place] [facility] [address] [id number] [place] [address]- 3580 Apr, [facility] [place] [facility] [address] [id number] [place] [address]- 5536 Apr, [facility] [place] [facility] [address] [id number] [place] [address]- 2546 Apr, [facility] [place] [facility] [address] [id number] [place] [address]- 8287 Apr, [facility] [place] [address] [place] [id number] Mar, [facility] [address] [id number] [place] [address]- 1907 Mar, [facility] [address] [id number] [place] [address] Mar, [facility] [address] [id number] [place] [address]- 7481 Mar, [facility] [address] [id number] [place] [address]- 0560 Mar, [facility] [address] [id number] [place] [address]- 7985 Mar, [facility] [address] [id number] [place] [address]- 4377 Mar, [facility] [address] [id number] [place] [address]- 4204 Mar, [facility] [address] [id number] [place] [address]- 2749 Mar, [facility] [address] [id number] [place] [address]- 0295 Mar, [facility] [address] [id number] [place] [address]- 7873 Mar, [facility] [address] [id number] [place] [address]- 5187 Mar, [facility] [address] [id number] [place] [address]- 2397 Mar, [facility] [address] [id number] [place] [address]- 9435 Mar, [facility] [address] [id number] [place] 44[address] Mar, [facility] [address] [id number], [place] [address]- 3302 Mar, [facility] [place] [facility] [address] [id number] [place] [address]- 0652 Mar, [facility] [place] [facility] [address] [id number] [place] [address]164 Mar, [facility] [place] [facility] [address] [id number] [place] [address]- 4447 Mar, [facility] [place] [facility] [address] [id number] [place] [address]- 5664 Mar, [facility] [place] [facility] [address] [id number] [place] [address]- 6576 Feb, [facility] [place] [facility] [address] [id number] [place] [address]- 5433 Feb, [facility] [place] [facility] [address] [id number], [place] [address]- 6216 Feb, [facility] [place] [facility] [address] [id number], [place] [address]- 6950 Feb, [facility] [place] [facility] [address] [id number], [place] [address]- 7916 Jan, [facility] [place] [facility] [address] [id number], [place] [address]- 5071 Jan, [facility] [place] [facility] [address] [id number], [place] [address]- 0015 Jan, [facility] [place] [facility] [address] [id number], [place] [address]- 6856 Jan, [facility] [place] [facility] [address] [id number], [place] [address]- 9745 Jan, [facility] [place] [facility] [address] [facility] [id number], [place] [address]- 5768 Jan, [facility] [place] [facility] [address] [id number], [place] [address]- 8517 Jan, [facility] [place] [facility] [address] [id number] [place] [address]- 1789 12 Jan, 2012 [facility] [place] [facility] [address] [id number] [place] [address]- 5379 10 Jan, 2012 [facility] [place] [facility] [address] [id number] [place] [address]- 4026 27 Dec, 2011 [facility] [place] [facility] [address] [id number] [place] [address]- 0750 14 Dec, 2011 [facility] [place] [facility] [address] [id number] [place] [address]- 5876 12 Dec, 2011 [facility] [place] [facility] [address] [id number] [place] [address]- 9334 06 Dec, 2011 [facility] [place] [facility] [address] [id number] [place] [address]- 6402 06 Dec, 2011 [facility] [place] [facility] [address] [id number] [place] [address]- 2897 Nov, [facility] [place] [facility] [address] [id number] [place] [address]- 1672 29 Nov, 2011 [facility] [place] [facility] [address] [id number] [place] [address]- 6316 Nov, [facility] [place] [facility] [address] [id number] [place] [address]- 1421 14 Nov, 2011 [facility] [place] [facility] [address] [id number] [place] [address]- 3932 Nov, [facility] [place] [facility] [address] [id number] [place] [address]- 6784 Nov, [facility] [place] [facility] [address] [id number] [place] [address]- 2064 08 Nov, 2011 [facility] [place] [facility] [address] [id number] [place] [address]- 7346 Nov, [facility] [place] [facility] [address] [id number] [place] [address]- 0727 Nov, [facility] [place] [facility] [address] [id number] [place] [address]- 4036 Oct, [facility] [place] [facility] [address] [id number] [place] [address]- 1488 Oct, [facility] [place] [facility] [address] [id number] [place] [address]- 1450 14 Sep, 2011 [facility] [place] [facility] [address] [id number] [place] [address]- 3109 Sep, [facility] [place] [facility] [address] [id number] [place] [address]- 5656 Sep, [facility] [place] [facility] [address] [id number] [place] [address]- 0907 August, [facility] [place] [facility] [address] [id number] [place] [address]- 2352 30 Jul, 2011 [facility] [place] [facility] [address] [id number] [place] [address]- 1015 27 Jul, 2011 [facility] [place] [facility] [address] [id number] [place] [address]- 7118 27 Jul, 2011 [facility] [place] [facility] [address] [id number] [place] [address]- 7855 18 Jul, 2011 [facility] [place] [facility] [address] [id number] [place] [address]- 2224 16 Jul, 2011 [facility] [place] [facility] [address] [id number] [place] [address]- 0997 16 Jul, 2011 [facility] [place] [facility] [address] [id number] [place] [address]- 1643 16 Jul, 2011 [facility] [place] [facility] [address] [id number] [place] [address]- 1730 14 Jul, 2011 [facility] [place] [facility] [address] [id number] [place] [address]- 6400 12 Jul, 2011 [facility] [place] [facility] [address] [id number] [place] [address]- 1526 19 Jun, 2011 [facility] [place] [facility] [address] [id number] [place] [address]- 5791 18 Jun, 2011 [facility] [place] [facility] [address] [id number] [place] [address]- 2806 15 Jun, 2011 [facility] [place] [facility] [address] [id number] [place] [address]- 4626 12 Jun, 2011 [facility] [place] [facility] [address] [id number] [place] [address]- 0120 08 Jun, 2011 [facility] [place] [facility] [address] [id number] [place] [address]- 4020 Jun, [facility] [place] [facility] [address] [id number] [place] [address]- 6904 Jun, [facility] [address] [id number] [place] [address]- 4313 Jun, [facility] [place] [facility] [address] [id number] [place] [address]- 5668 May, [facility] [place] [facility] [address] [id number] [place] [address]- 4048 May, [facility] [place] [facility] [address] [id number] [place] [address]- 9003 May, [facility] [place] [facility] [address] [id number] [place] [address]- 5834 Apr, [facility] [place] [facility] [address] [id number] [place] [address]- 5787 Apr, [facility] [place] [facility] [address] [id number] [place] [address]- 5387 Apr, [facility] [place] [facility] [address] [id number] [place] [address]- 2536 Mar, [facility] [place] [facility] [address] [id number] [place] [address]- 7505 Mar, [facility] [place] [facility] [address] [id number] [place] [address] 15 Mar, 2011 [facility] [address] [id number] [place] [address] Mar, [facility] [place] [facility] [address] [id number] [place] [address] Mar, [facility] [place] [facility] [address] [id number] [place] [address] Mar, [facility] [address] [id number] [place] [address] Mar, [facility] [address] [id number] [place] [address] Mar, [facility] [address] [id number] [place] [address] Mar, [facility] [address] [id number] [place] [address] Mar, [facility] [place] [facility] [address] [id number] [place] [address] Mar, [facility] [place] [facility] [address] [id number] [place] [address] Mar, [facility] [place] [facility] [address] [id number] [place] [address] Mar, [facility] [place] [facility] [address] [id number] [place] [address] Mar, [facility] [place] [facility] [address] [id number] [place] [address] Feb, [facility] [place] [facility] [address] [id number] [place] [address] 22 Feb, 2011 [facility] [place] [facility] [address] [id number] [place] [address] 14 Feb, 2011 [facility] [place] [facility] [address] [id number] [place] [address] Jan, [facility] [place] [facility] [address] [id number] [place] [address] Jan, [facility] [place] [facility] [address] [id number] [place] [address] Oct, [facility] [place] [facility] [address] [id number] [place] [address] Sep, [facility] [place] [facility] [address] [id number] [place] [address] Mar, [facility] [place] [facility] [address] [id number] [place] [address] Mar, [facility] [place] [facility] [address] [id number] [place] [address] Feb, [facility] [place] [facility] [address] [id number] [place] [address] Feb, [facility] [place] [facility] [address] [id number] [place] [address] Jan, [facility] [place] [facility] [address] [id number] [place] [address] Jan, [facility] [place] [facility] [address] [id number] [place] [address] Mar, [facility] [place] [facility] [address] [id number] [address] Feb, [facility] [place] [facility] [address] [id number], [place] [address] Feb, [facility] [place] [facility] [address] [id number] [place] [address] Feb, [facility] [place] [facility] [address] [id number], [place] [address] Feb, [facility] [place] [facility] [address] [id number] [place] [address] Jan, [facility] [place] [facility] [address] [facility] [id number] [place] [address] Dec, 2008 [facility] [address] [facility] [id number], [place] [address] Nov, IMMUNIZATIONS No Known Immunizations SOCIAL HISTORY Never Assessed REASON FOR VISIT Hospital follow up PLAN OF CARE Activity Details Follow Up prn Reason: VITAL SIGNS MEDICATIONS Medication Instructions Dosage Frequency Start Date End Date Duration Status Aricept 10 mg Orally Once a day 1 tablet at bedtime 24h Dec, 30 day(s) Active Simvastatin 10 MG Orally Once a day 1 tablet in the evening 24h Active Ibuprofen 200 mg Orally 4 times a day as needed for pain or fever 2 tablet with food or milk as needed Oct, Active Glimepiride 4 MG Orally Once a day 1 tablet with breakfast or the first main meal of the day 24h Sep, 30 day(s) Active Mylanta 200-200-20 MG/5ML Orally every 4 hrs 30 ml as needed 4h Active Synthroid 175 MCG Orally Once a day 1 tablet on an empty stomach in the morning 24h Active Aspir-81 81 MG Orally Once a day 1 tablet 24h Active Remeron 15 MG Orally Once a day 1 tablet at bedtime 24h Active Exelon 9.5 MG/24HR Transdermal Once a day 1 patch to skin 24h Active Metformin HCl 1000 MG Orally Twice a day 1 tablet with meals 12h Active Klonopin 0.5 MG Orally Twice a day 2 tablets in AM and 1 in PM 12h August, 28 days Active Cholecalciferol 4000 UNIT Orally Once a day 1 tablet 24h Active Divalproex Sodium 125 MG Orally 4 times a day 2 capsules 6h Active Clonidine HCl 0.2 MG Orally twice a day 1 tablet 12h Active Metoprolol Tartrate 25 MG Orally Twice a day 1 tablet with food 12h Active Enalapril Maleate 2.5 MG Orally Once a day 1 tablet 24h Active Celexa 20 MG Orally Once a day 1 tablet 24h Active Levetiracetam 500 mg Orally Twice a day 1 tablet 12h Active Plavix 75 MG Orally Once a day 1 tablet 24h Active Lactobacillus - Orally 4 times a day 1 tablet 6h Active Melatonin 3 MG Orally Once a day 1 tablet at bedtime 24h Active RESULTS No Results PROCEDURES Procedure Date Ordered Result Body Site Minor complication (15 mins) November 04, 2017 INSTRUCTIONS MEDICATIONS ADMINISTERED No Known Medications MEDICAL (GENERAL) HISTORY Type Description Date Hospitalization History [facility] March 2015
--- OUTSIDE RECORDS SUMMARY | 2018-02-25 07:44 | XMS REPORT ---
Author Author STEPHANIE CHRISTIANSEN [facility] Address [address] [place] [address] Care Team Providers Care Mandarin Speaking Nanny Name Role Phone STEPHANIE CHRISTIANSEN Unavailable PROBLEMS Type Condition ICD9-CM Code QUV66-KQ Code Onset Dates Condition Status SNOMED Code Problem Hyperlipidemia, unspecified hyperlipidemia type E78.5 Active 39685431 Problem Long-term insulin use Z79.4 Active 136929199 Problem Abnormal carotid ultrasound R93.8 Active 333411209 Problem Type 2 diabetes mellitus with complication E11.8 Active 66827776 Problem Positive TB test R76.11 Active 774722224 Problem Vascular dementia with behavior disturbance F01.51 Active 042887666 Problem PVD (peripheral vascular disease) I73.9 Active 023922191 Problem Pain R52 Active 75791150 Problem Other chronic osteomyelitis of left foot M86.672 Active 891298144 Problem Nicotine dependence, unspecified, uncomplicated F17.200 Active 532134111 Problem Peripheral vascular disease due to secondary diabetes E13.51 Active 9764870 Problem Nonintractable epilepsy without status epilepticus, unspecified epilepsy type G40.909 Active 521436839 Problem Recurrent major depressive disorder, remission status unspecified F33.9 Active 37083918 Problem Anxiety F41.9 Active 36810258 Problem Generalized anxiety disorder F41.1 Active 93915007 Problem Vascular dementia F01.50 Active 571104749 Problem Pseudobulbar affect F48.2 Active 44743423 Problem Coronary artery disease involving [place] coronary artery of [place] heart without angina pectoris I25.10 Active 1964666896876 Problem Gastroesophageal reflux disease without esophagitis K21.9 Active 852909845 Problem Cerebrovascular accident (CVA) due to other mechanism I63.8 Active 213950059 Problem Pulmonary emphysema, unspecified emphysema type J43.9 Active 00677680 Problem Neuropathy G62.9 Active 543723040 Problem Depression F32.9 Active 10168769 Problem Essential hypertension I10 Active 27402738 Problem Acquired hypothyroidism E03.9 Active 607908786 ALLERGIES No Information ENCOUNTERS Encounter Location Date Diagnosis [facility] [id number] [place] [address] 79518- 5448 Dec, [facility] [id number] [place] [address] 26879- 1428 Nov, Generalized anxiety disorder F41.1 [facility] [id number] [place] [address] 84283- 1557 Oct, Generalized anxiety disorder F41.1 [facility] [id number] [place] [address] 21063- 3262 Oct, Generalized anxiety disorder F41.1 [facility] [address] [id number] Oct, Sepsis, due to unspecified organism A41.9 ; Generalized anxiety disorder F41.1 ; Pain R52 and Depression F32.9 [facility] [id number] [place] [address] 96795- 4692 Oct, [facility] [id number] [place] [address] 59121- 0079 Oct, [facility] [id number] [place] [address] 21165- 9884 Sep, Generalized anxiety disorder F41.1 [place] [id number] [place] [address] 22897- 1221 Sep, [facility] [id number] [place] [address] 89303- 6175 Sep, Type 2 diabetes mellitus with complication E11.8 [place] [id number] [place] [address] 22317- 8026 August, Generalized anxiety disorder F41.1 [facility] [id number] [place] [address] 19790- 6365 August, [facility] [address] [id number] August, Type 2 diabetes mellitus with complication E11.8 ; Vascular dementia with behavior disturbance F01.51 ; Long-term insulin use Z79.4 and Nicotine dependence, unspecified, uncomplicated F17.200 [facility] [address] [place] [address] 14258- 9742 August, Generalized anxiety disorder F41.1 [facility] [id number] [place] [address] 69506- 7818 Jul, Generalized anxiety disorder F41.1 [facility] [id number] [place] [address] [id number] Jun, Generalized anxiety disorder F41.1 [facility] [id number] [place] [address] [id number] Jun, [facility] [id number] [place] [address] [id number] May, [facility] [id number] [place] [address] 20197- 0485 May, [facility] [id number] [place] [address] [id number] May, Generalized anxiety disorder F41.1 [facility] [id number] [place] [address] 35520- 3834 Apr, [facility] [address] [place] [id number] Apr, Other chronic osteomyelitis of left foot M86.672 ; Type 2 diabetes mellitus with complication E11.8 ; Vascular dementia F01.50 ; Long-term insulin use Z79.4 ; PVD (peripheral vascular disease) I73.9 and Nicotine abuse 305.1 [facility] [address] [address]- 5676 Apr, [facility] [id number] [place] [address] [id number] Apr, [facility] [address] [place] [address] 96865- 8948 Apr, Pain R52 and Generalized anxiety disorder F41.1 [place] [id number] [place] [address] 47258- 3440 14 Mar, 2017 [facility] [id number] [place] [address] 65583- 6756 Mar, Pain R52 and Generalized anxiety disorder F41.1 [facility] [address] [place] [id number] Feb, Depression F32.9 ; Type 2 diabetes mellitus with complication E11.8 and Nicotine dependence, unspecified, uncomplicated F17.200 [facility] [id number] [place] [address] 56316- 1222 Feb, Generalized anxiety disorder F41.1 and Pain R52 [facility] [address] 91649- 5502 Feb, [facility] [address] 79956- 6709 Jan, [facility] [address] 47851- 1850 Jan, Generalized anxiety disorder F41.1 and Pain R52 [facility] [address] 03506- 4609 Jan, [facility] [id number] [place] [address] [id number] Dec, Generalized anxiety disorder F41.1 and Pain R52 [facility] [address] [place] [id number] Dec, Vascular dementia F01.50 ; Pain of left leg M79.605 ; Pain in right leg M79.604 and Type 2 diabetes mellitus with complication E11.8 [facility] [id number] [place] [address] 81374- 5205 11 Dec, 2016 Pain R52 [facility] [id number] [place] [address] 22504- 4655 Dec, [facility] [address] 82598- 6612 Nov, [facility] [address] [address]- 6422 Nov, Pain R52 and Generalized anxiety disorder F41.1 [facility] [address] [place] [id number] Nov, Depression F32.9 ; Vascular dementia with behavior disturbance F01.51 and Anxiety F41.9 [facility] [id number] [place] [address] 77249- 7605 Nov, Pain R52 and Generalized anxiety disorder F41.1 [facility] [id number] [place] [address] 94889- 0345 Oct, Generalized anxiety disorder F41.1 [facility] [id number] [place] [address] 69737- 3900 Oct, Pain R52 [facility] [id number] [place] [address] 12605- 8916 Sep, [facility] [address] [place] [id number] Sep, Generalized anxiety disorder F41.1 [facility] [id number] [place] [address] 32073- 0410 Sep, Pain R52 [facility] [id number] [place] [address] 64709- 9937 Sep, Generalized anxiety disorder F41.1 [facility] [id number] [place] [address] 36168- 4128 August, [facility] [id number] [place] [address] 18205- 3622 August, [facility] [id number] [place] [address] 78396- 4456 August, Pain R52 [facility] [id number] [place] [address] 48358- 8108 August, Generalized anxiety disorder F41.1 [facility] [id number] [place] [address] [id number] August, Generalized anxiety disorder F41.1 [facility] [address] [place] [address] 104227- 4940 17 Jul, 2016 Pain R52 [facility] [id number] [place] [address] 487546- 8642 Jul, [facility] [id number] [place] [address] [id number] Jul, [facility] [id number] [place] [address] [id number]- 1654 Jun, [facility] [address] [id number] Jun, Depression F32.9 [facility] [id number] [place] [address] 58119- 0467 Jun, Pain R52 [facility] [id number] [place] [address] 25627- 2837 Jun, [facility] [address] [facility] [place] [place] [id number] Jun, Vascular dementia F01.50 and Depression F32.9 [facility] [id number] [place] [address] 07856- 0227 May, Pain R52 [facility] [id number] [place] [address] 72201- 3433 15 May, 2016 [facility] [id number] [place] [address] 42883- 9131 May, Pseudobulbar affect F48.2 [facility] [id number] [place] [address] 59268- 9271 09 May, 2016 [facility] [id number] [place] [address] 90929- 7625 May, PVD (peripheral vascular disease) I73.9 [facility] [id number] [place] [address] 57559- 6526 May, Vascular dementia with behavior disturbance F01.51 [facility] [address] [address]- 2537 May, Vascular dementia with behavior disturbance F01.51 [facility] [address] [place] [address] 23787- 5842 Apr, [facility] [id number] [place] [address] 33583- 3521 Apr, Pain R52 [facility] [address] [facility] [place] [id number] Apr, Generalized anxiety disorder F41.1 ; PVD (peripheral vascular disease) I73.9 and Type 2 diabetes mellitus with complication E11.8 [facility] [id number] [place] [address] 82526- 1648 Apr, Vascular dementia with behavior disturbance F01.51 [facility] [id number] [place] [address] 08880- 7581 Apr, [facility] [id number] [place] [address] 69024- 2303 Apr, Vascular dementia with behavior disturbance F01.51 [facility] [id number] [place] [address] 05073- 1137 Apr, [facility] [id number] [place] [address] [id number] Mar, [facility] [id number] [place] [address] 93774- 0059 Mar, Type 2 diabetes mellitus with complication E11.8 ; Vascular dementia with behavior disturbance F01.51 and Depression F32.9 [facility] [id number] [place] [address] 27206- 0425 Mar, [facility] [id number] [place] [address] 37233- 7472 Feb, [facility] [id number] [place] [address] 21953- 5423 Feb, Viral illness B34.9 [facility] [address] [address]- 0283 Jan, Diabetes 250.00 [facility] [address] [place] [address] 47027- 3130 Jan, [facility] [id number] [place] [address] 70131- 7491 Jan, [facility] [id number] [place] [address] 70024- 5081 Jan, [facility] [address] [place] [id number] Jan, Vascular dementia with behavior disturbance F01.51 and Type 2 diabetes mellitus with complication E11.8 [facility] [address] [place] [address] 78188- 2617 Jan, Pain R52 [facility] [id number] [place] [address] 33478- 5952 Jan, Pain R52 [facility] [id number] [place] [address] 44115- 5987 Dec, [facility] [id number] [place] [address] 89021- 4119 Nov, [facility] [address] [id number] Nov, Type 2 diabetes mellitus with complication E11.8 [facility] [address] [address]- 4064 Nov, [facility] [address] [address]- 1300 Oct, [facility] [id number] [place] [address] 10979- 4064 Oct, [facility] [address] [address]- 8872 Oct, Vascular dementia with behavior disturbance F01.51 and Type 2 diabetes mellitus with complication E11.8 [place] [address] [address]- 4939 August, Type 2 diabetes mellitus with complication E11.8 and Vascular dementia with behavior disturbance F01.51 [facility] [address], [place] [address]- 8638 August, Vascular dementia F01.50 [facility] [address] [place] [address] 30699- 5079 August, Vascular dementia with behavior disturbance F01.51 [facility] [address] [place] [address] 03836- 9291 Jul, Vascular dementia with behavior disturbance F01.51 [facility] [address] [place] [address] 21009- 8947 Jun, Vascular dementia F01.50 [facility] [address] [place] [address] 52084- 5645 Jun, Type 2 diabetes mellitus with complication E11.8 ; Long- term insulin use Z79.4 and Vascular dementia with behavior disturbance F01.51 [facility] [address] [place] [address] 98986- 3792 Jun, Vascular dementia with behavior disturbance F01.51 [facility] [address] [address]- 2253 Jun, Vascular dementia F01.50 [facility] [address] [address]- 6143 Apr, [facility] [address], [place] [address]- 1519 Apr, [facility] [address], [place] [address]- 7651 Apr, [facility] [address], [place] [address]- 6492 Apr, Type 2 diabetes mellitus with complication E11.8 ; Depression F32.9 and Long-term insulin use Z79.4 [facility] [address], [place] [address]- 6450 Mar, [facility] [address] [id number] Mar, Depression F32.9 ; Type 2 diabetes mellitus with complication E11.8 and Long-term insulin use Z79.4 [facility] [address], [place] [address]- 5984 Feb, [facility] [id number] [place] [address] 189784- 5144 Feb, Hyperthyroidism E05.90 [facility] [id number] [place] [address] 884261- 3385 Feb, Hyperthyroidism E05.90 [facility] [address] [place] [address] 96796- 6628 Feb, [facility] [id number] [place] [address] 01857- 7359 Jan, [facility] [address] [place] [address] 90525- 3182 Dec, Nicotine addiction 305.1 [facility] [id number] [place] [address] 78880- 3716 Oct, Nicotine abuse 305.1 [facility] [address], [place] [address]- 1039 Oct, [facility] [address] [place] [address] 306859- 1625 August, [facility] [address] [id number] August, History of drug abuse 305.93 and Diabetes 250.00 [facility] [address], [place] [address]- 5500 14 Jul, 2014 [facility] [address], [place] [address]- 2266 Jul, [facility] [address] [place] [address]- 5081 Jun, [facility] [address] [id number] [place] [address]- 0695 Jun, [facility] [place] [facility] [address] [id number] [place] [address]- 2352 Jun, [facility] [address] [id number] [place] [address]- 6882 Jun, [facility] [place] [facility] [address] [id number] [place] [address]- 1207 Jun, [facility] [address] [id number] [place] [address]- 0695 Jun, [facility] [address] [id number] [place] [address]- 4801 May, [facility] [address] [id number] [place] [address]- 1979 May, [facility] [address] [id number] [place] [address]- 2937 May, [facility] [address] [id number] [place] [address]- 3662 May, [facility] [address] [facility] [id number] [place] [address]- 3215 May, [facility] [address] [id number] [place] [address]- 4567 Apr, [facility] [address] [id number], [place] [address]- 9630 Apr, [facility] [address] [id number] Apr, [facility] [address] [id number] [place] [address]- 9908 Apr, [facility] [address] [facility] [id number], [place] [address]- 0533 Apr, [facility] [place] [facility] [address] [id number] [place] [address]- 5053 Apr, [facility] [place] [facility] [address] [id number] [place] [address]- 7281 Apr, [facility] [place] [facility] [address] [id number] [place] [address]- 7833 Apr, [facility] [place] [facility] [address] [id number] [place] [address]- 8076 Mar, [facility] [place] [facility] [address] [id number] [place]- 1698 Mar, [facility] [place] [facility] [address] [id number] [place] [address]- 0525 Mar, [facility] [place] [facility] [address] [id number] [place] [address]- 8437 Mar, [facility] [place] [facility] [address] [id number] [place] [address]- 5371 Mar, [facility] [place] [facility] [address] [id number] [place] [address]- 9353 Mar, [facility] [place] [facility] [address] [id number] [place] [address]- 7025 Mar, [facility] [place] [facility] [address] [id number] [place] [address]- 0945 Mar, [facility] [place] [facility] [address] [id number], [place] [address]- 5493 Feb, [facility] [place] [facility] [address] [id number] [place] [address]- 1359 Feb, [facility] [place] [facility] [address] [id number] [place] [address]- 6802 Feb, [facility] [place] [facility] [address] [id number], [place] [address]- 1503 Feb, [facility] [place] [facility] [address] [id number], [place] [address]- 7969 Feb, [facility] [address] [id number] Feb, [facility] [place] [facility] [address] [id number] [place] [address]- 2228 Feb, [facility] [place] [facility] [address] [id number] [place] [address]- 9280 Feb, [facility] [place] [facility] [address] [id number] [place] [address]- 3325 Feb, [facility] [place] [facility] [address] [id number] [place] [address]- 0818 Feb, [facility] [place] [facility] [address] [id number] [place] [address]- 0511 Jan, [facility] [place] [facility] [address] [id number] [place] [address]- 0801 30 Jan, 2014 [facility] [place] [facility] [address] [id number], [place] [address]- 6517 Jan, [facility] [place] [facility] [address] [id number] [place] [address]- 6466 17 Jan, 2014 [facility] [place] [facility] [address] [id number] [place] [address]- 4456 16 Jan, 2014 [facility] [place] [facility] [address] [id number], [place] [address]- 6426 16 Jan, 2014 [facility] [place] [facility] [address] [id number], [place] [address]- 4167 15 Jan, 2014 [facility] [place] [facility] [address] [id number] [place] [address]- 5770 13 Jan, 2014 [facility] [place] [facility] [address] [id number] [place] [address]- 2944 13 Jan, 2014 [facility] [place] [facility] [address] [id number] [place] [address]- 7595 Jan, [facility] [place] [facility] [address] [id number] [place] [address]- 5577 13 Jan, 2013 [facility] [place] [facility] [address] [id number] [place] [address]- 3826 09 Jan, 2013 [facility] [place] [facility] [address] [id number] [place] [address]- 4179 Jan, 2013 [facility] [place] [facility] [address] [id number] [place] [address]- 0489 08 Jan, 2013 [facility] [place] [facility] [address] [id number] [place] [address]- 6701 Jan, 2013 [facility] [place] [facility] [address] [id number] [place] [address]- 6467 Jan, 2013 [facility] [place] [facility] [address] [id number] [place] [address]- 5710 Jan, 2013 [facility] [place] [facility] [address] [id number] [place] [address] 19 Sep, 2013 [facility] [place] [facility] [address] [id number] [place] [address] 19 Sep, 2013 [facility] [place] [facility] [address] [id number] [place] [address] 11 Sep, 2013 [facility] [place] [facility] [address] [id number] [place] [address] 11 Sep, 2013 [facility] [place] [facility] [address] [id number] [place] [address] 09 Sep, 2013 [facility] [place] [facility] [address] [id number] [place] [address] 09 Sep, 2013 [facility] [place] [facility] [address] [id number] [place] [address] 08 Sep, 2013 [facility] [place] [facility] [address] [id number] [place] [address] 08 Sep, 2013 [facility] [place] [facility] [address] [id number] [place] [address] 08 Sep, 2013 [facility] [place] [facility] [address] [id number] [place] [address] Dec, 2013 [facility] [place] [facility] [address] [id number] [place] [address] Dec, [facility] [place] [facility] [address] [id number] [place] [address] Dec, [facility] [place] [facility] [address] [id number] [place] [address] Dec, [facility] [place] [facility] [address] [id number] [place] [address] Dec, [facility] [place] [facility] [address] [id number] [place] [address] Nov, [facility] [place] [facility] [address] [id number] [place] [address] Nov, [facility] [place] [facility] [address] [id number] [place] [address] Nov, [facility] [place] [facility] [address] [id number] [place] [address] Nov, [facility] [place] [facility] [address] [id number] [place] [address] 2214 Nov, [facility] [place] [facility] [address] [id number] [place] [address] 6682 Nov, [facility] [place] [facility] [address] [id number] [place] [address]- 3988 Nov, [facility] [place] [facility] [address] [id number] [place] [address]- 3916 Nov, [facility] [place] [facility] [address] [id number] [place] [address]- 7492 Nov, [facility] [place] [facility] [address] [id number] [place] [address]- 8262 Nov, [facility] [place] [facility] [address] [id number] [place] [address]- 4520 Nov, [facility] [place] [facility] [address] [id number] [place] [address] 5752 Nov, [facility] [place] [facility] [address] [id number] [place] [address]- 8236 Nov, [facility] [place] [facility] [address] [id number] [place] [address]- 8448 Nov, [facility] [place] [facility] [address] [id number] [place] [address]- 1045 Oct, [facility] [place] [facility] [address] [id number] [place] [address]- 4883 Oct, [facility] [place] [facility] [address] [id number] [place] [address]- 8557 Oct, [facility] [place] [facility] [address] [id number] [place] [address]- 4770 Oct, [facility] [place] [facility] [address] [id number] [place] [address]- 0997 Oct, [facility] [place] [facility] [address] [id number] [place] [address]- 9747 Oct, [facility] [place] [facility] [address] [id number] [place] [address]- 6079 Oct, [facility] [place] [facility] [address] [id number] [place] [address]- 7165 Oct, [facility] [place] [facility] [address] [id number] [place] [address]- 1797 Oct, [facility] [place] [facility] [address] [id number] [place] [address]- 0401 Oct, [facility] [place] [facility] [address] [id number] [place] [address]- 9875 Oct, [facility] [place] [facility] [address] [id number] [place] [address]- 4005 Oct, [facility] [place] [facility] [address] [id number] [place] [address]- 1467 Oct, 2013 [facility] [place] [facility] [address] [id number] [place] [address]- 5161 Oct, 2013 [facility] [place] [facility] [address] [id number] [place] [address]- 3713 Oct, 2013 [facility] [place] [facility] [address] [id number] [place] [address]- 4373 Oct, 2013 [facility] [place] [facility] [address] [id number] [place] [address]- 1983 Oct, 2013 [facility] [place] [facility] [address] [id number] [place] [address]- 0342 Oct, 2013 [facility] [place] [facility] [address] [id number] [place] [address]- 6229 Oct, [facility] [place] [facility] [address] [id number] [place] [address]- 7052 Oct, [facility] [place] [facility] [address] [id number] [place] [address]- 7132 Sep, [facility] [place] [facility] [address] [id number] [place] [address]- 7765 Sep, [facility] [place] [facility] [address] [id number] [place] [address]- 7206 Sep, [facility] [place] [facility] [address] [id number] [place] [address]- 9597 Sep, [facility] [place] [facility] [address] [id number] [place] [address]- 5225 Sep, [facility] [place] [facility] [address] [id number] [place] [address]- 7240 Sep, [facility] [place] [facility] [address] [id number] [place] [address]- 7794 August, [facility] [place] [facility] [address] [id number] [place] [address]- 4144 August, [facility] [place] [facility] [address] [id number] [place] [address]- 2201 Jul, [facility] [place] [facility] [address] [id number] [place] [address]- 2933 Jul, [facility] [place] [facility] [address] [id number] [place] [address] Jul, [facility] [place] [facility] [address] [id number] [place] [address]- 0175 Jul, [facility] [place] [facility] [address] [id number] [place] [address] Jul, [facility] [place] [facility] [address] [id number] [place] [address]- 2085 Jul, [facility] [place] [facility] [address] [id number] [place] [address]- 8395 Jul, [facility] [place] [facility] [address] [id number] [place] [address]- 1423 Jul, [facility] [place] [facility] [address] [id number] [place] [address]- 8208 Jun, [facility] [place] [facility] [address] [id number] [place] [address]- 5867 Jun, [facility] [place] [facility] [address] [id number] [place] [address]- 0947 Jun, [facility] [place] [facility] [address] [id number] [place] [address]- 9030 Jun, [facility] [place] [facility] [address] [id number] [place] [address]- 5870 Jun, [facility] [place] [facility] [address] [id number] [place] [address]- 0273 May, [facility] [place] [facility] [address] [id number] [place] [address]- 3862 May, [facility] [place] [facility] [address] [id number] [place] [address]- 8866 May, [facility] [place] [facility] [address] [id number] [place] [address]- 8336 May, 2013 [facility] [place] [facility] [address] [id number] [place] [address] 2546 May, 2013 [facility] [place] [facility] [address] [id number] [place] [address] 2546 May, 2013 [facility] [place] [facility] [address] [id number] [place] [address] 2546 May, [facility] [place] [facility] [address] [id number] [place] [address]- 2366 May, [facility] [place] [facility] [address] [facility] [id number] [place] [address] 2546 May, [facility] [place] [facility] [address] [facility] [id number] [place] [address] 2542 May, [facility] [place] [facility] [address] [id number] [place] [address]- 5339 May, [facility] [place] [facility] [address] [facility] [id number] [place] [address]- 0592 Apr, [facility] [place] [facility] [address] [facility] [id number] [place] [address]- 6966 Apr, [facility] [place] [facility] [address] [facility] [id number] [place] [address] 2546 Mar, [facility] [place] [facility] [address] [id number] [place] [address] 2546 Mar, [facility] [place] [facility] [address] [id number] [place] [address] 2546 Mar, [facility] [place] [facility] [address] [facility] [id number] [place] [address]- 2546 Mar, [facility] [place] [facility] [address] [facility] [id number] [place] [address]- 2546 Mar, [facility] [place] [facility] [address] [id number] [place] [address]- 1195 Jan, [facility] [place] [facility] [address] [id number] [place] [address]- 7830 Jan, [facility] [place] [facility] [address] [id number] [place] [address]- 6372 Jan, [facility] [place] [facility] [address] [id number] [place] [address]- 9005 Jan, [facility] [place] [facility] [address] [id number] [place] [address]- 4867 Jan, [facility] [place] [facility] [address] [id number] [place] [address] Jan, [facility] [place] [facility] [address] [id number] [place] [address]- 4621 Jan, [facility] [place] [facility] [address] [id number], [place] [address]- 0831 Jan, [facility] [place] [facility] [address] [id number] [place] [address]- 2969 Jan, [facility] [place] [facility] [address] [id number], [place] [address]- 1253 Jan, [facility] [place] [facility] [address] [id number], [place] [address]- 2185 Dec, [facility] [place] [facility] [address] [id number], [place] [address]- 5951 Oct, [facility] [place] [facility] [address] [id number] [place] [address]- 0232 Oct, [facility] [place] [facility] [address] [id number], [place] [address]- 1035 Oct, [facility] [place] [facility] [address] [id number], [place] [address]- 3247 Oct, [facility] [place] [facility] [address] [id number] [place] [address]- 4041 Oct, [facility] [address] [id number] [place] [address]- 7164 Oct, [facility] [address] [id number] [place] [address]- 7663 Sep, [facility] [address] [id number] [place] [address]- 0168 August, [facility] [address] [id number] [place] [address]- 4413 August, [facility] [address] [id number] [place] [address]- 0858 August, [facility] [address] [id number] [place] [address]- 5588 August, [facility] [address] [id number] [place] [address]- 7112 August, [facility] [address] [id number] [place] [address]- 9443 May, [facility] [address] [id number] [place] [address]- 5191 Apr, [facility] [address] [id number] [place] [address]- 6122 Apr, [facility] [address] [id number] [place] [address]- 4342 Apr, [facility] [address] [id number] [place] [address]- 0849 Apr, [facility] [address] [id number] [place] [address]- 0013 Apr, [facility] [place] [id number] Mar, [facility] [address] [id number] [place] [address]- 3212 Mar, [facility] [place] [facility] [address] [id number] [place] [address]- 0332 19 Mar, 2012 [facility] [address] [id number] [place] [address]- 4936 19 Mar, 2012 [facility] [place] [facility] [address] [id number] [place] [address] 17 Mar, 2012 [facility] [address] [id number] [place] [address]- 1266 17 Mar, 2012 [facility] [place] [facility] [address] [id number] [place] [address]- 8406 13 Mar, 2012 [facility] [address] [id number] [place] [address]- 0116 13 Mar, 2012 [facility] [address] [id number] [place] [address]- 9665 13 Mar, 2012 [facility] [address] [id number] [place] [address]- 6449 13 Mar, 2012 [facility] [address] [id number] [place] [address]- 7338 [address], [address] [facility] [place] [facility] [address] [id number] [place] [address]- 2756 12 Mar, 2012 [facility] [address] [id number] [place] [address]- 5769 [address], [address] [facility] [place] [facility] [address] [id number] [place] [address]- 4726 Mar, [facility] [place] [facility] [address] [id number] [place] [address]- 7776 07 Mar, 2012 [facility] [place] [facility] [address] [id number] [place] [address]- 5296 [address], [address] [facility] [place] [facility] [address] [id number] [place] [address]- 1866 06 Mar, 2012 [facility] [place] [facility] [address] [id number] [place] [address]- 6214 Mar, [facility] [place] [facility] [address] [id number] [place] [address]- 3388 Mar, [facility] [place] [facility] [address] [id number] [place] [address]- 9562 Mar, [facility] [place] [facility] [address] [id number] [place] [address]- 7666 Feb, [facility] [place] [facility] [address] [id number] [place] [address]- 1187 Feb, [facility] [place] [facility] [address] [id number] [place] [address]- 0555 Feb, [facility] [place] [facility] [address] [id number] [place] [address]- 0139 Feb, [facility] [place] [facility] [address] [facility] [id number] [place] [address]- 1645 Jan, [facility] [place] [facility] [address] [id number], [place] [address]- 2483 Jan, [facility] [place] [facility] [address] [id number] [place] [address]- 4694 Jan, [facility] [place] [facility] [address] [id number], [place] [address]- 7063 Jan, [facility] [place] [facility] [address] [id number], [place] [address]- 1360 Jan, [facility] [place] [facility] [address] [id number], [place] [address]- 9634 Jan, [facility] [place] [facility] [address] [id number] [place] [address]- 6014 Jan, [facility] [place] [facility] [address] [id number], [place] [address]- 2745 Jan, [facility] [place] [facility] [address] [facility] [id number], [place] [address]- 3780 Jan, [facility] [place] [facility] [address] [id number] [place] [address]- 1758 27 Dec, 2011 [facility] [place] [facility] [address] [id number] [place] [address]- 0266 14 Dec, 2011 [facility] [place] [facility] [address] [id number] [place] [address]- 1136 12 Dec, 2011 [facility] [place] [facility] [address] [id number] [place] [address]- 3846 06 Dec, 2011 [facility] [place] [facility] [address] [id number] [place] [address]- 5626 06 Dec, 2011 [facility] [place] [facility] [address] [id number] [place] [address]- 5594 Nov, [facility] [place] [facility] [address] [id number] [place] [address]- 9997 Nov, [facility] [place] [facility] [address] [id number] [place] [address]- 6359 Nov, [facility] [place] [facility] [address] [id number] [place] [address]- 4631 Nov, [facility] [place] [facility] [address] [id number] [place] [address]- 0051 Nov, [facility] [place] [facility] [address] [id number] [place] [address]- 5776 Nov, [facility] [place] [facility] [address] [id number] [place] [address]- 9629 Nov, [facility] [place] [facility] [address] [id number] [place] [address]- 6021 Nov, [facility] [place] [facility] [address] [id number] [place] [address]- 3686 Nov, [facility] [place] [facility] [address] [id number] [place] [address]- 6219 Oct, [facility] [place] [facility] [address] [id number] [place] [address]- 1551 Oct, [facility] [place] [facility] [address] [id number] [place] [address]- 8739 14 Sep, 2011 [facility] [place] [facility] [address] [id number] [place] [address]- 7107 13 Sep, 2011 [facility] [place] [facility] [address] [id number] [place] [address]- 7608 05 Sep, 2011 [facility] [place] [facility] [address] [id number] [place] [address]- 0573 14 Aug, 2011 [facility] [place] [facility] [address] [id number] [place] [address]- 3002 30 Jul, 2011 [facility] [place] [facility] [address] [id number] [place] [address]- 0448 27 Jul, 2011 [facility] [place] [facility] [address] [id number] [place] [address]- 3414 27 Jul, 2011 [facility] [place] [facility] [address] [id number] [place] [address]- 0256 18 Jul, 2011 [facility] [place] [facility] [address] [id number] [place] [address]- 7983 16 Jul, 2011 [facility] [place] [facility] [address] [id number] [place] [address]- 7506 16 Jul, 2011 [facility] [place] [facility] [address] [id number] [place] [address]- 9756 16 Jul, 2011 [facility] [place] [facility] [address] [id number] [place] [address]- 0428 14 Jul, 2011 [facility] [place] [facility] [address] [id number] [place] [address]- 8455 12 Jul, 2011 [facility] [place] [facility] [address] [id number] [place] [address]- 6544 19 Jun, 2011 [facility] [place] [facility] [address] [id number] [place] [address]- 6304 18 Jun, 2011 [facility] [place] [facility] [address] [id number] [place] [address]- 8720 15 Jun, 2011 [facility] [place] [facility] [address] [id number] [place] [address]- 0576 12 Jun, 2011 [facility] [place] [facility] [address] [id number] [place] [address]- 5446 08 Jun, 2011 [facility] [place] [facility] [address] [id number] [place] [address]- 1502 Jun, [facility] [place] [facility] [address] [id number] [place] [address]- 9457 Jun, [facility] [place] [facility] [address] [id number] [place] [address]- 3819 Jun, [facility] [place] [facility] [address] [id number] [place] [address]- 5007 May, [facility] [place] [facility] [address] [id number] [place] [address]- 5002 May, [facility] [place] [facility] [address] [id number] [place] [address]- 9721 May, [facility] [place] [facility] [address] [id number] [place] [address]- 8076 Apr, [facility] [place] [facility] [address] [id number] [place] [address]- 8111 Apr, [facility] [place] [facility] [address] [id number] [place] [address]- 9072 Apr, [facility] [place] [facility] [address] [id number] [place] [address]- 3524 Mar, [facility] [place] [facility] [address] [id number] [place] [address]- 9786 Mar, [facility] [place] [facility] [address] [id number] [place] 0537 Mar, [facility] [place] [facility] [address] [id number] [place] [address]- 0819 Mar, [facility] [place] [facility] [address] [id number] [place] [address]- 7770 13 Mar, 2011 [facility] [address] [id number] [place] [address]- 5621 Mar, [facility] [place] [facility] [address] [id number] [place] [address]- 0825 Mar, [facility] [address] [id number] [place] [address]- 5576 Mar, [facility] [place] [facility] [address] [id number] [place] [address]- 0143 08 Mar, 2011 [facility] [address] [id number] [place] 8655 Mar, [facility] [address] [id number] [place] [address]- 3712 Mar, [facility] [place] [facility] [address] [id number] [place] [address]- 3421 Mar, [facility] [address] [id number] [place] [address]- 6530 Mar, [facility] [place] [facility] [address] [id number] [place] [address]- 9225 Mar, [facility] [address] [id number] [place] [address]- 6220 Feb, [facility] [place] [facility] [address] [id number] [place] [address]- 1968 Feb, [facility] [place] [facility] [address] [id number] [place] [address]- 2044 Feb, [facility] [place] [facility] [address] [id number] [place] [address]- 3599 Jan, [facility] [place] [facility] [address] [id number] [place] [address]- 4194 Jan, [facility] [place] [facility] [address] [id number] [place] [address]- 9992 Oct, [facility] [address] [id number], [place] [address]- 6270 Sep, [facility] [address] [id number], [place] [address]- 0548 Mar, [facility] [address] [facility] [id number][place] 0970 Mar, [facility] [address] [id number], [place] [address]- 5886 Feb, [facility] [address] [id number] [place] 0701 Feb, [facility] [address] [facility] [id number], [place] [address] Jan, [facility] [address] [facility] [id number], [place] [address] Jan, [facility] [address] [facility] [id number], [place] [address] Mar, [facility] [address] [facility] [id number], [place] [address] Feb, [facility] [address] [facility] [id number], [place] [address] Feb, [facility] [address] [facility] [id number], [place] [address] Feb, [facility] [address] [facility] [id number], [place] [address] Feb, [facility] [address] [facility] [id number], [place] [address] Jan, [facility] [address] [facility] [id number], [place] [address] Dec, [facility] [address] [facility] [id number], [place] [address] Nov, IMMUNIZATIONS No Known Immunizations SOCIAL HISTORY Never Assessed REASON FOR VISIT decrease celexa PLAN OF CARE VITAL SIGNS MEDICATIONS Medication Instructions Dosage Frequency Start Date End Date Duration Status Celexa 20 mg Orally Once a day 1 tablet 24h 30 days Active RESULTS No Results PROCEDURES No Known procedures INSTRUCTIONS MEDICATIONS ADMINISTERED No Known Medications MEDICAL (GENERAL) HISTORY Type Description Date Hospitalization History [facility] March 2015
--- OUTSIDE RECORDS SUMMARY | 2018-02-25 07:45 | XMS REPORT ---
Author Author STEPHANIE CHRISTIANESN [facility] Address [address] [place] [address] Care Team Providers Care General Surgeon Name Role Phone STEPHANIE CHRISTIANSEN Unavailable PROBLEMS Type Condition ICD9-CM Code BEH49-PL Code Onset Dates Condition Status SNOMED Code Problem Hyperlipidemia, unspecified hyperlipidemia type E78.5 Active 20711028 Problem Long-term insulin use Z79.4 Active 015354057 Problem Abnormal carotid ultrasound R93.8 Active 007141035 Problem Type 2 diabetes mellitus with complication E11.8 Active 05787999 Problem Positive TB test R76.11 Active 150290919 Problem Vascular dementia with behavior disturbance F01.51 Active 313109360 Problem PVD (peripheral vascular disease) I73.9 Active 876473574 Problem Pain R52 Active 32994939 Problem Other chronic osteomyelitis of left foot M86.672 Active 022902769 Problem Nicotine dependence, unspecified, uncomplicated F17.200 Active 656744110 Problem Peripheral vascular disease due to secondary diabetes E13.51 Active 1624271 Problem Nonintractable epilepsy without status epilepticus, unspecified epilepsy type G40.909 Active 691779021 Problem Recurrent major depressive disorder, remission status unspecified F33.9 Active 25132739 Problem Anxiety F41.9 Active 66787699 Problem Generalized anxiety disorder F41.1 Active 70388979 Problem Vascular dementia F01.50 Active 189010168 Problem Pseudobulbar affect F48.2 Active 31066317 Problem Coronary artery disease involving choct[place] coronary artery of choctaw heart without angina pectoris I25.10 Active 3525114689941 Problem Gastroesophageal reflux disease without esophagitis K21.9 Active 512083069 Problem Cerebrovascular accident (CVA) due to other mechanism I63.8 Active 489280638 Problem Pulmonary emphysema, unspecified emphysema type J43.9 Active 41335618 Problem Neuropathy G62.9 Active 850827207 Problem Depression F32.9 Active 52473301 Problem Essential hypertension I10 Active 52885296 Problem Acquired hypothyroidism E03.9 Active 444257014 ALLERGIES No Information ENCOUNTERS Encounter Location Date Diagnosis [facility] [id number] [place] [address] 48114- 3831 Dec, [facility] [id number] [place] [address] 84353- 8742 Nov, Generalized anxiety disorder F41.1 [facility] [id number] [place] [address] 92903- 8647 Oct, Generalized anxiety disorder F41.1 [facility] [id number] [place] [address] 79962- 3314 Oct, Generalized anxiety disorder F41.1 [facility] [address] [id number] Oct, Sepsis, due to unspecified organism A41.9 ; Generalized anxiety disorder F41.1 ; Pain R52 and Depression F32.9 [facility] [id number] [place] [address] 49767- 8743 Oct, [facility] [id number] [place] [address] 35235- 5058 Oct, [facility] [id number] [place] [address] 24612- 4912 Sep, Generalized anxiety disorder F41.1 [facility] [id number] [place] [address] 58614- 9090 Sep, [facility] [id number] [place] [address] 47350- 7530 Sep, Type 2 diabetes mellitus with complication E11.8 [facility] [id number] [place] [address] 49367- 3338 August, Generalized anxiety disorder F41.1 [facility] [id number] [place] [address] 86321- 9947 August, [facility] [address] [id number] August, Type 2 diabetes mellitus with complication E11.8 ; Vascular dementia with behavior disturbance F01.51 ; Long-term insulin use Z79.4 and Nicotine dependence, unspecified, uncomplicated F17.200 [facility] [address] [place] [address] 85224- 9252 August, Generalized anxiety disorder F41.1 [facility] [id number] [place] [address] 04359- 4803 Jul, Generalized anxiety disorder F41.1 [facility] [id number] [place] [address] [id number] Jun, Generalized anxiety disorder F41.1 [facility] [id number] [place] [address] [id number] Jun, [facility] [id number] [place] [address] [id number] May, [facility] [id number] [place] [address] 63899- 6778 May, [facility] [id number] [place] [address] [id number] May, Generalized anxiety disorder F41.1 [facility] [id number] [place] [address] 15201- 4321 Apr, [facility] [address] [place] [id number] Apr, Other chronic osteomyelitis of left foot M86.672 ; Type 2 diabetes mellitus with complication E11.8 ; Vascular dementia F01.50 ; Long-term insulin use Z79.4 ; PVD (peripheral vascular disease) I73.9 and Nicotine abuse 305.1 [facility] [address] [address]- 1670 Apr, [facility] [id number] [place] [address] [id number] Apr, [facility] [id number] [place] [address] 89553- 2887 Apr, Pain R52 and Generalized anxiety disorder F41.1 [facility] [id number] [place] [address] 88158- 5260 14 Mar, 2017 [facility] [id number] [place] [address] 69686- 7894 Mar, Pain R52 and Generalized anxiety disorder F41.1 [facility] [address] [place] [id number] Feb, Depression F32.9 ; Type 2 diabetes mellitus with complication E11.8 and Nicotine dependence, unspecified, uncomplicated F17.200 [facility] [id number] [place] [address] 81095- 2573 Feb, Generalized anxiety disorder F41.1 and Pain R52 [facility] [address] 62554- 2940 Feb, [facility] [address] 86367- 1741 Jan, [facility] [address] 41346- 2800 Jan, Generalized anxiety disorder F41.1 and Pain R52 [facility] [address] 56663- 6403 Jan, [facility] [id number] [place] [address] [id number] Dec, Generalized anxiety disorder F41.1 and Pain R52 [facility] [address] [place] [id number] Dec, Vascular dementia F01.50 ; Pain of left leg M79.605 ; Pain in right leg M79.604 and Type 2 diabetes mellitus with complication E11.8 [facility] [id number] [place] [address] 61545- 1386 11 Dec, 2016 Pain R52 [facility] [id number] [place] [address] 28672- 0656 Dec, [facility] [address] 42822- 1682 Nov, [facility] [address], [place] [address]- 4437 Nov, Pain R52 and Generalized anxiety disorder F41.1 [facility] [address] [place] [id number] Nov, Depression F32.9 ; Vascular dementia with behavior disturbance F01.51 and Anxiety F41.9 [facility] [id number] [place] [address] 54401- 7895 Nov, Pain R52 and Generalized anxiety disorder F41.1 [facility] [id number] [place] [address] 20713- 9807 Oct, Generalized anxiety disorder F41.1 [facility] [id number] [place] [address] 77296- 5789 Oct, Pain R52 [facility] [id number] [place] [address] 59321- 5573 Sep, [facility] [address] [place] [id number] Sep, Generalized anxiety disorder F41.1 [facility] [id number] [place] [address] 46540- 2301 Sep, Pain R52 [facility] [id number] [place] [address] 44165- 0525 Sep, Generalized anxiety disorder F41.1 [facility] [id number] [place] [address] 72856- 4863 August, [facility] [id number] [place] [address] 04201- 7169 August, [facility] [id number] [place] [address] 71382- 4484 August, Pain R52 [facility] [id number] [place] [address] 38142- 8277 August, Generalized anxiety disorder F41.1 [facility] [id number] [place] [address] [id number] August, Generalized anxiety disorder F41.1 [facility] [address] [place] [address] 204631- 1989 17 Jul, 2016 Pain R52 [facility] [id number] [place] [address] 467473- 0717 Jul, [facility] [id number] [place] [address] [id number] Jul, [facility] [id number] [place] [address] [id number]- 3401 Jun, [facility] [address] [id number] Jun, Depression F32.9 [facility] [id number] [place] [address] 01539- 7788 Jun, Pain R52 [facility] [id number] [place] [address] 40109- 9667 Jun, [facility] [address] [facility] [place] [id number] Jun, Vascular dementia F01.50 and Depression F32.9 [facility] [id number] [place] [address] 71910- 7280 May, Pain R52 [facility] [id number] [place] [address] 25290- 6714 15 May, 2016 [facility] [id number] [place] [address] 91740- 8855 May, Pseudobulbar affect F48.2 [facility] [id number] [place] [address] 90026- 4299 09 May, 2016 [facility] [id number] [place] [address] 45971- 9690 May, PVD (peripheral vascular disease) I73.9 [facility] [id number] [place] [address] 84717- 8058 May, Vascular dementia with behavior disturbance F01.51 [facility] [address], [place] [address]- 4910 May, Vascular dementia with behavior disturbance F01.51 [facility] [address] [place] [address] 63332- 1773 Apr, [facility] [id number] [place] [address] 61704- 8438 Apr, Pain R52 [facility] [address] [facility] [place] [id number] Apr, Generalized anxiety disorder F41.1 ; PVD (peripheral vascular disease) I73.9 and Type 2 diabetes mellitus with complication E11.8 [facility] [id number] [place] [address] 46405- 8281 Apr, Vascular dementia with behavior disturbance F01.51 [facility] [id number] [place] [address] 05122- 7217 Apr, [facility] [id number] [place] [address] 35520- 1885 Apr, Vascular dementia with behavior disturbance F01.51 [facility] [id number] [place] [address] 18475- 6250 Apr, [facility] [id number] [place] [address] [id number] Mar, [facility] [id number] [place] [address] 25916- 1769 Mar, Type 2 diabetes mellitus with complication E11.8 ; Vascular dementia with behavior disturbance F01.51 and Depression F32.9 [facility] [id number] [place] [address] 57095- 9794 Mar, [facility] [id number] [place] [address] 07802- 0430 Feb, [facility] [id number] [place] [address] 99557- 2696 Feb, Viral illness B34.9 [facility] [address], [place] [address]- 4791 Jan, Diabetes 250.00 [facility] [address] [place] [address] 93228- 4078 Jan, [facility] [id number] [place] [address] 72434- 0682 Jan, [facility] [id number] [place] [address] 78513- 6697 Jan, [facility] [address] [place] [id number] Jan, Vascular dementia with behavior disturbance F01.51 and Type 2 diabetes mellitus with complication E11.8 [facility] [address] [place] [address] 74678- 0828 Jan, Pain R52 [facility] [id number] [place] [address] 88617- 2656 Jan, Pain R52 [facility] [id number] [place] [address] 75328- 5710 Dec, [facility] [id number] [place] [address] 19949- 0236 Nov, [facility] [address] [id number] Nov, Type 2 diabetes mellitus with complication E11.8 [facility] [address], [place] [address]- 1754 Nov, [facility] [address] [place] [address]- 0620 Oct, [facility] [id number] [place] [address] 87315- 9442 Oct, [facility] [address], [place] [address]- 7031 Oct, Vascular dementia with behavior disturbance F01.51 and Type 2 diabetes mellitus with complication E11.8 [facility] [address], [place] [address]- 7822 August, Type 2 diabetes mellitus with complication E11.8 and Vascular dementia with behavior disturbance F01.51 [facility] [address], [place] [address]- 0991 August, Vascular dementia F01.50 [facility] [address] [place] [address] 65514- 2103 August, Vascular dementia with behavior disturbance F01.51 [facility] [address] [place] [address] 24102- 7220 Jul, Vascular dementia with behavior disturbance F01.51 [facility] [address] [place] [address] 26160- 4658 Jun, Vascular dementia F01.50 [facility] [address] [place] [address] 18222- 2012 Jun, Type 2 diabetes mellitus with complication E11.8 ; Long- term insulin use Z79.4 and Vascular dementia with behavior disturbance F01.51 [facility] [address] [place] [address] 88909- 4565 Jun, Vascular dementia with behavior disturbance F01.51 [facility] [address], [place] [address]- 8782 Jun, Vascular dementia F01.50 [facility] [address], [place] [address]- 3303 Apr, [facility] [address], [place] [address]- 8964 Apr, [facility] [address], [place] [address]- 3454 Apr, [facility] [address], [place] [address]- 9132 Apr, Type 2 diabetes mellitus with complication E11.8 ; Depression F32.9 and Long-term insulin use Z79.4 [facility] [address], [place] [address]- 8360 Mar, [facility] [address] [place] [id number] Mar, Depression F32.9 ; Type 2 diabetes mellitus with complication E11.8 and Long-term insulin use Z79.4 [facility] [address], [place] [address]- 1235 Feb, [facility] [id number] [place] [address] 055473- 7809 Feb, Hyperthyroidism E05.90 [facility] [id number] [place] [address] 516547- 0012 Feb, Hyperthyroidism E05.90 [facility] [address] [place] [address] 13132- 4024 Feb, [facility] [id number] [place] [address] 01401- 3027 Jan, [facility] [address] [place] [address] 84781- 6202 Dec, Nicotine addiction 305.1 [facility] [id number] [place] [address] 47944- 4633 Oct, Nicotine abuse 305.1 [facility] [address], [place] [address]- 2911 Oct, [facility] [address] [place] [address] 976899- 8796 August, [facility] [address] [place] [id number] August, History of drug abuse 305.93 and Diabetes 250.00 [facility] [address], [place] [address]- 8654 14 Jul, 2014 [facility] [address], [place] [address]- 1833 Jul, [facility] [address] [place] [address]- 5039 Jun, [facility] [address] [id number] [place] [address]- 0612 Jun, [facility] [place] [facility] [address] [id number] [place] [address]- 9360 Jun, [facility] [address] [id number] [place] [address]- 7685 Jun, [facility] [place] [facility] [address] [id number] [place] [address]- 7674 Jun, [facility] [address] [id number] [place] [address]- 8560 Jun, [facility] [address] [id number] [place] [address]- 9536 May, [facility] [address] [id number] [place] [address]- 7331 May, [facility] [address] [id number] [place] [address]- 5019 May, [facility] [address] [id number] [place] [address]- 6086 May, [facility] [address] [facility] [id number] [place] [address]- 5740 May, [facility] [address] [id number] [place] [address]- 5029 Apr, [facility] [address] [id number], [place] [address]- 3291 Apr, [facility] [address] [place] [id number] Apr, [facility] [address] [id number] [place] [address]- 8804 Apr, [facility] [address] [facility] [id number], [place] [address]- 6402 Apr, [facility] [place] [facility] [address] [id number] [place] [address]- 7690 Apr, [facility] [place] [facility] [address] [id number] [place] [address]- 2290 Apr, [facility] [place] [facility] [address] [id number] [place] [address]- 9336 Apr, [facility] [place] [facility] [address] [id number] [place] [address]- 7102 Mar, [facility] [place] [facility] [address] [id number] [place] 2171 Mar, [facility] [place] [facility] [address] [id number] [place] [address]- 6840 Mar, [facility] [place] [facility] [address] [id number] [place] [address]- 9866 Mar, [facility] [place] [facility] [address] [id number] [place] [address]- 9811 Mar, [facility] [place] [facility] [address] [id number] [place] [address]- 1443 Mar, [facility] [place] [facility] [address] [id number] [place] [address]- 8019 Mar, [facility] [place] [facility] [address] [id number] [place] [address]- 7071 Mar, [facility] [place] [facility] [address] [id number], [place] [address]- 7252 Feb, [facility] [place] [facility] [address] [id number] [place] [address]- 4641 Feb, [facility] [place] [facility] [address] [id number] [place] [address]- 6613 Feb, [facility] [place] [facility] [address] [id number], [place] [address]- 3150 Feb, [facility] [place] [facility] [address] [id number], [place] [address]- 5683 Feb, [facility] [address] [place] [id number] Feb, [facility] [place] [facility] [address] [id number] [place] [address]- 6468 Feb, [facility] [place] [facility] [address] [id number] [place] [address]- 5471 Feb, [facility] [place] [facility] [address] [id number] [place] [address]- 8318 Feb, [facility] [place] [facility] [address] [id number] [place] [address]- 4946 Feb, [facility] [place] [facility] [address] [id number] [place] [address]- 4843 Jan, [facility] [place] [facility] [address] [id number] [place] [address]- 7386 30 Jan, 2014 [facility] [place] [facility] [address] [id number], [place] [address]- 8009 Jan, [facility] [place] [facility] [address] [id number] [place] [address]- 7837 17 Jan, 2014 [facility] [place] [facility] [address] [id number] [place] [address]- 0521 16 Jan, 2014 [facility] [place] [facility] [address] [id number], [place] [address]- 7480 16 Jan, 2014 [facility] [place] [facility] [address] [id number], [place] [address]- 3686 15 Jan, 2014 [facility] [place] [facility] [address] [id number] [place] [address]- 1249 13 Jan, 2014 [facility] [place] [facility] [address] [id number] [place] [address]- 2825 13 Jan, 2014 [facility] [place] [facility] [address] [id number] [place] [address]- 8378 Jan, [facility] [place] [facility] [address] [id number] [place] [address]- 0206 13 Jan, 2013 [facility] [place] [facility] [address] [id number] [place] [address]- 8860 09 Jan, 2013 [facility] [place] [facility] [address] [id number] [place] [address]- 1584 Jan, 2013 [facility] [place] [facility] [address] [id number] [place] [address]- 7140 08 Jan, 2013 [facility] [place] [facility] [address] [id number] [place] [address]- 7367 Jan, 2013 [facility] [place] [facility] [address] [id number] [place] [address]- 2940 Jan, 2013 [facility] [place] [facility] [address] [id number] [place] [address] Jan, 2013 [facility] [place] [facility] [address] [id number] [place] [address] 19 Sep, 2013 [facility] [place] [facility] [address] [id number] [place] [address] 19 Sep, 2013 [facility] [place] [facility] [address] [id number] [place] [address] 11 Sep, 2013 [facility] [place] [facility] [address] [id number] [place] [address] 11 Sep, 2013 [facility] [place] [facility] [address] [id number] [place] [address] 09 Sep, 2013 [facility] [place] [facility] [address] [id number] [place] [address] 09 Sep, 2013 [facility] [place] [facility] [address] [id number] [place] [address] 08 Sep, 2013 [facility] [place] [facility] [address] [id number] [place] [address] 08 Sep, 2013 [facility] [place] [facility] [address] [id number] [place] [address] 08 Sep, 2013 [facility] [place] [facility] [address] [id number] [place] [address] Dec, 2013 [facility] [place] [facility] [address] [id number] [place] [address] Dec, [facility] [place] [facility] [address] [id number] [place] [address] Dec, [facility] [place] [facility] [address] [id number] [place] [address] Dec, [facility] [place] [facility] [address] [id number] [place] [address] Dec, [facility] [place] [facility] [address] [id number] [place] [address] Nov, [facility] [place] [facility] [address] [id number] [place] [address] Nov, [facility] [place] [facility] [address] [id number] [place] [address] Nov, [facility] [place] [facility] [address] [id number] [place] [address] Nov, [facility] [place] [facility] [address] [id number] [place] [address] Nov, [facility] [place] [facility] [address] [id number] [place] [address] Nov, [facility] [place] [facility] [address] [id number] [place] [address] Nov, [facility] [place] [facility] [address] [id number] [place] [address] Nov, [facility] [place] [facility] [address] [id number] [place] [address] Nov, [facility] [facility] [address] [id number] [place] [address] Nov, [facility] [place] [facility] [address] [id number] [place] [address] 3961 Nov, [facility] [place] [facility] [address] [id number] [place] [address] Nov, [facility] [place] [facility] [address] [id number] [place] [address] 2762 Nov, [facility] [place] [facility] [address] [id number] [place] [address] 7154 Nov, [facility] [place] [facility] [address] [id number] [place] [address] 1980 Oct, [facility] [place] [facility] [address] [id number] [place] [address]- 6121 Oct, [facility] [place] [facility] [address] [id number] [place] [address]- 7782 Oct, [facility] [place] [facility] [address] [id number] [place] [address]- 2603 Oct, [facility] [place] [facility] [address] [id number] [place] [address]- 1245 Oct, [facility] [place] [facility] [address] [id number] [place] [address]- 7661 Oct, [facility] [place] [facility] [address] [id number] [place] [address]- 1101 Oct, [facility] [place] [facility] [address] [id number] [place] [address]- 5909 Oct, [facility] [place] [facility] [address] [id number] [place] [address]- 1589 Oct, [facility] [place] [facility] [address] [id number] [place] [address]- 1495 Oct, [facility] [place] [facility] [address] [id number] [place] [address]- 5275 Oct, [facility] [place] [facility] [address] [id number] [place] [address]- 1704 Oct, [facility] [place] [facility] [address] [id number] [place] [address]- 9713 Oct, 2013 [facility] [place] [facility] [address] [id number] [place] [address]- 0547 Oct, 2013 [facility] [place] [facility] [address] [id number] [place] [address]- 3351 Oct, 2013 [facility] [place] [facility] [address] [id number] [place] [address]- 2876 Oct, 2013 [facility] [place] [facility] [address] [id number] [place] [address]- 6330 Oct, 2013 [facility] [place] [address] [id number] [place] [address]- 4066 Oct, 2013 [facility] [place] [facility] [address] [id number] [place] [address]- 8976 Oct, [facility] [place] [facility] [address] [id number] [place] [address]- 4452 Oct, [facility] [address] [id number] [place] [address]- 0875 Sep, [facility] [place] [facility] [address] [id number] [place] [address]- 4375 Sep, [facility] [address] [id number] [place] [address]- 7841 Sep, [facility] [address] [id number] [place] [address]- 7274 Sep, [facility] [place] [address] [id number] [place] [address]- 0866 Sep, [facility] [place] [facility] [address] [id number] [place] [address]- 9044 Sep, [facility] [place] [facility] [address] [id number] [place] [address]- 5041 August, [facility] [place] [address] [id number] [place] [address]- 6004 August, [facility] [place] [address] [id number] [place] [address]- 3596 Jul, [facility] [place] [address] [id number] [place] [address]- 9781 Jul, [facility] [address] [id number] [place] [address] Jul, [facility] [place] [address] [id number] [place] [address]- 3987 Jul, [facility] [place] [facility] [address] [id number] [place] [address] Jul, [facility] [place] [facility] [address] [id number] [place] [address]- 2607 Jul, [facility] [place] [facility] [address] [id number] [place] [address]- 1876 Jul, [facility] [address] [id number] [place] [address]- 1689 Jul, [facility] [address] [id number] [place] [address]- 2249 Jun, [facility] [address] [id number] [place] [address]- 9978 Jun, [facility] [address] [id number] [place] [address]- 9176 Jun, [facility] [address] [id number] [place] [address]- 6937 Jun, [facility] [address] [id number] [place] [address]- 3988 Jun, [facility] [address] [id number] [place] [address]- 7195 May, [facility] [address] [id number] [place] [address]- 7887 May, [facility] [address] [id number] [place] [address]- 5856 May, [facility] [address] [id number] [place] [address]- 6206 May, 2013 [facility] [address] [id number] [place] [address] 2546 May, 2013 [facility] [address] [id number] [place] [address] 2546 May, 2013 [facility] [address] [id number] [place] [address] 2546 May, [facility] [address] [id number] [place] [address]- 3396 May, [facility] [facility] [address] [facility] [id number] [place] [address] 2546 May, [facility] [address] [facility] [id number] [place] [address] 254 May, [facility] [address] [id number] [place] [address]- 3069 May, [facility] [address] [facility] [id number] [place] [address]- 3016 Apr, [facility] [address] [facility] [id number] [place] [address]- 8079 Apr, [facility] [address] [facility] [id number] [place] [address] 2546 Mar, [facility] [address] [id number] [place] [address] 2546 Mar, [facility] [address] [id number] [place] [address] 2546 Mar, [facility] [address] [facility] [id number] [place] [address]- 2546 Mar, [facility] [address] [facility] [id number] [place] [address] 2546 Mar, [facility] [address] [id number] [place] [address]- 7928 Jan, [facility] [address] [id number] [place] [address]- 9989 Jan, [facility] [address] [id number] [place] [address]- 0210 Jan, [facility] [address] [id number] [place] [address]- 5824 Jan, [facility] [address] [id number] [place] [address]- 5644 Jan, [facility] [address] [id number] [place] [address] Jan, [facility] [address] [id number] [place] [address]- 7421 Jan, [facility] [address] [id number], [place] [address]- 0245 Jan, [facility] [address] [id number] [place] [address]- 3464 Jan, [facility] [address] [id number], [place] [address]- 3565 Jan, [facility] [address] [id number], [place] [address]- 0294 Dec, [facility] [address] [id number], [place] [address]- 2076 Oct, [facility] [address] [id number] [place] [address]- 7542 Oct, [facility] [address] [id number], [place] [address]- 0914 Oct, [facility] [address] [id number], [place] [address]- 1852 Oct, [facility] [address] [id number] [place] [address]- 4951 Oct, [facility] [address] [id number] [place] [address]- 5624 Oct, [facility] [address] [id number] [place] [address]- 2014 Sep, [facility] [address] [id number] [place] [address]- 4933 August, [facility] [address] [id number] [place] [address]- 4508 August, [facility] [address] [id number] [place] [address]- 8436 August, [facility] [address] [id number] [place] [address]- 2210 August, [facility] [address] [id number] [place] [address]- 9030 August, [facility] [address] [id number] [place] [address]- 4712 May, [facility] [address] [id number] [place] [address]- 6870 Apr, [facility] [address] [id number] [place] [address]- 8532 Apr, [facility] [address] [id number] [place] [address]- 1433 Apr, [facility] [address] [id number] [place] [address]- 9593 Apr, [facility] [address] [id number] [place] [address]- 3986 Apr, [facility] [place] [id number] Mar, [facility] [address] [id number] [place] [address]- 6098 Mar, [facility] [address] [id number] [place] [address]- 4360 19 Mar, 2012 [facility] [address] [id number] [place] [address]- 0726 19 Mar, 2012 [facility] [address] [id number] [place] 17 Mar, 2012 [facility] [address] [id number] [place] [address]- 0176 17 Mar, 2012 [facility] [address] [id number] [place] [address]- 9786 13 Mar, 2012 [facility] [address] [id number] [place] [address]- 1946 13 Mar, 2012 [facility] [address] [id number] [place] [address]- 0937 13 Mar, 2012 [facility] [address] [id number] [place] [address]- 0780 13 Mar, 2012 [facility] [address] [id number] [place] [address]- 9087 12 Mar, 2012 [facility] [address] [id number] [place] [address]- 9956 12 Mar, 2012 [facility] [address] [id number] [place] [address]- 8281 10 Mar, 2012 [facility] [address] [id number] [place] [address]- 6296 Mar, [facility] [address] [id number] [place] [address]- 8416 07 Mar, 2012 [facility] [address] [id number] [place] [address]- 2176 07 Mar, 2012 [facility] [address] [id number] [place] [address]- 7736 06 Mar, 2012 [facility] [address] [id number] [place] [address]- 7294 Mar, [facility] [facility] [address] [id number] [place] [address]- 2216 Mar, [facility] [address] [id number] [place] [address]- 3513 Mar, [facility] [address] [id number] [place] [address]- 0287 Feb, [facility] [address] [id number] [place] [address]- 9101 Feb, [facility] [address] [id number] [place] [address]- 6051 Feb, [facility] [address] [id number] [place] [address]- 9101 Feb, [facility] [address] [facility] [id number] [place] [address]- 6941 Jan, [facility] [address] [id number], [place] [address]- 8174 Jan, [facility] [address] [id number] [place] [address]- 3743 Jan, [facility] [address] [id number], [place] [address]- 3731 Jan, [facility] [address] [id number], [place] [address]- 1978 Jan, [facility] [address] [id number], [place] [address]- 0870 Jan, [facility] [address] [id number] [place] [address]- 0675 Jan, [facility] [address] [id number], [place] [address]- 6074 Jan, [facility] [address] [facility] [id number], [place] [address]- 3308 Jan, [facility] [address] [id number] [place] [address]- 3720 27 Dec, 2011 [facility] [address] [id number] [place] [address]- 7596 14 Dec, 2011 [facility] [place] [facility] [address] [id number] [place] [address]- 0816 12 Dec, 2011 [facility] [place] [facility] [address] [id number] [place] [address]- 8116 06 Dec, 2011 [facility] [place] [facility] [address] [id number] [place] [address]- 8806 06 Dec, 2011 [facility] [place] [facility] [address] [id number] [place] [address]- 7424 Nov, [facility] [place] [facility] [address] [id number] [place] [address]- 2505 Nov, [facility] [place] [facility] [address] [id number] [place] [address]- 5504 Nov, [facility] [place] [facility] [address] [id number] [place] [address]- 2054 Nov, [facility] [place] [facility] [address] [id number] [place] [address]- 7213 Nov, [facility] [place] [facility] [address] [id number] [place] [address]- 6496 Nov, [facility] [place] [facility] [address] [id number] [place] [address]- 8547 Nov, [facility] [place] [facility] [address] [id number] [place] [address]- 9125 Nov, [facility] [place] [facility] [address] [id number] [place] [address]- 0472 Nov, [facility] [place] [facility] [address] [id number] [place] [address]- 7502 Oct, [facility] [place] [facility] [address] [id number] [place] [address]- 7902 Oct, [facility] [place] [facility] [address] [id number] [place] [address]- 0013 14 Sep, 2011 [facility] [place] [facility] [address] [id number] [place] [address]- 6265 13 Sep, 2011 [facility] [place] [facility] [address] [id number] [place] [address]- 1449 05 Sep, 2011 [facility] [place] [facility] [address] [id number] [place] [address]- 8693 14 Aug, 2011 [facility] [place] [facility] [address] [id number] [place] [address]- 0781 30 Jul, 2011 [facility] [place] [facility] [address] [id number] [place] [address]- 0056 27 Jul, 2011 [facility] [place] [facility] [address] [id number] [place] [address]- 1233 27 Jul, 2011 [facility] [place] [facility] [address] [id number] [place] [address]- 7657 18 Jul, 2011 [facility] [place] [facility] [address] [id number] [place] [address]- 1446 16 Jul, 2011 [facility] [place] [facility] [address] [id number] [place] [address]- 2355 16 Jul, 2011 [facility] [place] [facility] [address] [id number] [place] [address]- 3064 16 Jul, 2011 [facility] [place] [facility] [address] [id number] [place] [address]- 7397 14 Jul, 2011 [facility] [place] [facility] [address] [id number] [place] [address]- 1049 12 Jul, 2011 [facility] [place] [facility] [address] [id number] [place] [address]- 0207 19 Jun, 2011 [facility] [place] [facility] [address] [id number] [place] [address]- 7579 18 Jun, 2011 [facility] [place] [facility] [address] [id number] [place] [address]- 5403 15 Jun, 2011 [facility] [place] [facility] [address] [id number] [place] [address]- 4371 12 Jun, 2011 [facility] [place] [facility] [address] [id number] [place] [address]- 1050 08 Jun, 2011 [facility] [place] [facility] [address] [id number] [place] [address]- 7317 Jun, [facility] [place] [facility] [address] [id number] [place] [address]- 0950 Jun, [facility] [place] [facility] [address] [id number] [place] [address]- 3327 Jun, [facility] [place] [facility] [address] [id number] [place] [address]- 7566 May, [facility] [place] [facility] [address] [id number] [place] [address]- 2201 May, [facility] [place] [facility] [address] [id number] [place] [address]- 4624 May, [facility] [place] [facility] [address] [id number] [place] [address]- 5702 Apr, [facility] [place] [facility] [address] [id number] [place] [address]- 7002 Apr, [facility] [place] [facility] [address] [id number] [place] [address]- 1127 Apr, [facility] [place] [facility] [address] [id number] [place] [address]- 2282 Mar, [facility] [place] [facility] [address] [id number] [place] [address]- 8555 Mar, [facility] [place] [facility] [address] [id number] [place] 5067 Mar, [facility] [place] [facility] [address] [id number] [place] [address]- 9246 Mar, [facility] [place] [facility] [address] [id number] [place] [address]- 0697 13 Mar, 2011 [facility] [address] [id number] [place] [address]- 3878 Mar, [facility] [place] [facility] [address] [id number] [place] [address]- 6392 Mar, [facility] [address] [id number] [place] [address]- 5864 Mar, [facility] [place] [facility] [address] [id number] [place] [address]- 4029 08 Mar, 2011 [facility] [address] [id number] [place] 4479 Mar, [facility] [address] [id number] [place] [address]- 1055 Mar, [facility] [place] [facility] [address] [id number] [place] [address]- 0496 Mar, [facility] [address] [id number] [place] [address]- 0345 Mar, [facility] [place] [facility] [address] [id number] [place] [address]- 1354 Mar, [facility] [address] [id number] [place] [address]- 7092 Feb, [facility] [place] [facility] [address] [id number] [place] [address]- 2325 Feb, [facility] [place] [facility] [address] [id number] [place] [address]- 5965 Feb, [facility] [place] [facility] [address] [id number] [place] [address]- 9833 Jan, [facility] [place] [facility] [address] [id number] [place] [address]- 1843 Jan, [facility] [place] [facility] [address] [id number] [place] [address] Oct, [facility] [address] [id number], [place] [address] Sep, [facility] [address] [id number], [place] [address] Mar, [facility] [address] [facility] [id number][place] [address] Mar, [facility] [address] [id number], [place] [address] Feb, [facility] [address] [id number] [id number] Feb, [facility] [address] [facility] [id number], [place] [address] Jan, [facility] [address] [facility] [id number], [place] [address] Jan, [facility] [address] [facility] [id number], [place] [address] Mar, [facility] [address] [facility] [id number], [place] [address] Feb, [facility] [address] [facility] [id number], [place] [address] Feb, [facility] [address] [facility] [id number], [place] [address] Feb, [facility] [address] [facility] [id number], [place] [address] Feb, [facility] [address] [facility] [id number], [place] [address] Jan, [facility] [address] [facility] [id number], [place] [address] Dec, [facility] [address] [facility] [id number], [place] [address] Nov, IMMUNIZATIONS No Known Immunizations SOCIAL HISTORY [...] (GENERAL) HISTORY Type Description Date Hospitalization History [facility] March 2015
--- OUTSIDE RECORDS SUMMARY | 2018-02-25 07:46 | XMS REPORT ---
Author Author MIKAEL ROSE Organization [facility] Address [address] [place] [address] Care Team Providers Care Broommaker Name Role Phone MIKAEL ROSE Unavailable PROBLEMS Type Condition ICD9-CM Code NOA55-YX Code Onset Dates Condition Status SNOMED Code Problem Hyperlipidemia, unspecified hyperlipidemia type E78.5 Active 94939265 Problem Long-term insulin use Z79.4 Active 018529147 Problem Abnormal carotid ultrasound R93.8 Active 409877143 Problem Type 2 diabetes mellitus with complication E11.8 Active 99839990 Problem Positive TB test R76.11 Active 307689851 Problem Vascular dementia with behavior disturbance F01.51 Active 714948949 Problem PVD (peripheral vascular disease) I73.9 Active 881903390 Problem Pain R52 Active 05542269 Problem Other chronic osteomyelitis of left foot M86.672 Active 955615255 Problem Nicotine dependence, unspecified, uncomplicated F17.200 Active 359931255 Problem Peripheral vascular disease due to secondary diabetes E13.51 Active 7353757 Problem Nonintractable epilepsy without status epilepticus, unspecified epilepsy type G40.909 Active 341635777 Problem Recurrent major depressive disorder, remission status unspecified F33.9 Active 26353530 Problem Anxiety F41.9 Active 18127074 Problem Generalized anxiety disorder F41.1 Active 96779583 Problem Vascular dementia F01.50 Active 579620514 Problem Pseudobulbar affect F48.2 Active 64342111 Problem Coronary artery disease involving nenana coronary artery of nenana heart without angina pectoris I25.10 Active 2839483464643 Problem Gastroesophageal reflux disease without esophagitis K21.9 Active 666911837 Problem Cerebrovascular accident (CVA) due to other mechanism I63.8 Active 822797442 Problem Pulmonary emphysema, unspecified emphysema type J43.9 Active 67997496 Problem Neuropathy G62.9 Active 054617796 Problem Depression F32.9 Active 62659673 Problem Essential hypertension I10 Active 15272542 Problem Acquired hypothyroidism E03.9 Active 804458575 ALLERGIES No Information ENCOUNTERS Encounter Location Date Diagnosis [facility] [id number] [place] [address] 17728- 6091 Dec, [facility] [id number] [place] [address] 53096- 7351 Nov, Generalized anxiety disorder F41.1 [facility] [id number] [place] [address] 42280- 1996 Oct, Generalized anxiety disorder F41.1 [facility] [id number] [place] [address] 33225- 4890 Oct, Generalized anxiety disorder F41.1 [facility] [address] [id number] Oct, Sepsis, due to unspecified organism A41.9 ; Generalized anxiety disorder F41.1 ; Pain R52 and Depression F32.9 [facility] [id number] [place] [address] 88410- 6816 Oct, [facility] [id number] [place] [address] 98242- 5329 Oct, [facility] [id number] [place] [address] 42209- 6572 Sep, Generalized anxiety disorder F41.1 [facility] [id number] [place] [address] 80002- 1627 Sep, [facility] [id number] [place] [address] 52377- 4221 Sep, Type 2 diabetes mellitus with complication E11.8 [facility] [id number] [place] [address] 16712- 5972 August, Generalized anxiety disorder F41.1 [facility] [id number] [place] [address] 81780- 9836 August, [facility] [address] [id number] August, Type 2 diabetes mellitus with complication E11.8 ; Vascular dementia with behavior disturbance F01.51 ; Long-term insulin use Z79.4 and Nicotine dependence, unspecified, uncomplicated F17.200 [facility] [id number] [place] [address] 71517312- 7794 August, Generalized anxiety disorder F41.1 [facility] [address] [address] 5853 Jul, Generalized anxiety disorder F41.1 [facility] [id number] [place] [address] [id number] Jun, Generalized anxiety disorder F41.1 [facility] [id number] [place] [address] [id number] Jun, [facility] [address] [id number] May, [facility] [id number] [place] [address] 13044- 6718 May, [facility] [id number] [place] [address] [id number] May, Generalized anxiety disorder F41.1 [facility] [address] [place] [address] 41554643- 4302 Apr, [facility] [address] [place] [id number] Apr, Other chronic osteomyelitis of left foot M86.672 ; Type 2 diabetes mellitus with complication E11.8 ; Vascular dementia F01.50 ; Long-term insulin use Z79.4 ; PVD (peripheral vascular disease) I73.9 and Nicotine abuse 305.1 [facility] [address] [address]- 9570 Apr, [facility] [id number] [place] [address] [id number] Apr, [facility] [address] [address]- 3867 Apr, Pain R52 and Generalized anxiety disorder F41.1 [facility] [id number] [place] [address] 76731- 2011 14 Mar, 2017 [facility] [id number] [place] [address] 09187- 0113 Mar, Pain R52 and Generalized anxiety disorder F41.1 [facility] [address] [place] [id number] Feb, Depression F32.9 ; Type 2 diabetes mellitus with complication E11.8 and Nicotine dependence, unspecified, uncomplicated F17.200 [facility] [id number] [place] [address] 54666- 2970 Feb, Generalized anxiety disorder F41.1 and Pain R52 [facility] [address] 44595- 3958 Feb, [facility] [address] 00727- 8721 Jan, [facility] [id number] [place] [address] 43299- 8252 Jan, Generalized anxiety disorder F41.1 and Pain R52 [facility] [id number] [place] [address] 04175- 1659 Jan, [facility] [id number] [place] [address] [id number] Dec, Generalized anxiety disorder F41.1 and Pain R52 [facility] [address] [place] [id number] Dec, Vascular dementia F01.50 ; Pain of left leg M79.605 ; Pain in right leg M79.604 and Type 2 diabetes mellitus with complication E11.8 [facility] [id number] [place] [address] 75736- 3636 11 Dec, 2016 Pain R52 [facility] [id number] [place] [address] 42389- 1352 Dec, [facility] [id number] [place] [address] 90874- 0108 Nov, [facility] [address] [address]- 0363 Nov, Pain R52 and Generalized anxiety disorder F41.1 [facility] [address] [place] [id number] Nov, Depression F32.9 ; Vascular dementia with behavior disturbance F01.51 and Anxiety F41.9 [facility] [id number] [place] [address] 34785- 7974 Nov, Pain R52 and Generalized anxiety disorder F41.1 [facility] [id number] [place] [address] 32063- 0176 Oct, Generalized anxiety disorder F41.1 [facility] [id number] [place] [address] 89678- 1555 Oct, Pain R52 [facility] [id number] [place] [address] 06123- 3781 Sep, [facility] [address] [place] [id number] Sep, Generalized anxiety disorder F41.1 [facility] [id number] [place] [address] 53609- 8253 Sep, Pain R52 [facility] [id number] [place] [address] 54261- 6332 Sep, Generalized anxiety disorder F41.1 [facility] [address] [address]- 8215 August, [facility] [id number] [place] [address] 55606- 6379 August, [facility] [id number] [place] [address] 76051- 5274 August, Pain R52 [facility] [id number] [place] [address] 51767- 7177 August, Generalized anxiety disorder F41.1 [facility] [id number] [place] [address] [id number] August, Generalized anxiety disorder F41.1 [facility] [id number] [place] [address] 06720- 9049 17 Jul, 2016 Pain R52 [facility] [id number] [place] [address] 929928- 1295 Jul, [facility] [id number] [place] [address] [id number] Jul, [facility] [id number] [place] [address] 95951- 6311 Jun, [facility] [address] [id number] Jun, Depression F32.9 [facility] [id number] [place] [address] 85046- 1704 Jun, Pain R52 [facility] [address] 92099- 8491 Jun, [facility] [address] [place] [id number] Jun, Vascular dementia F01.50 and Depression F32.9 [facility] [id number] [place] [address] 20536- 1210 May, Pain R52 [facility] [id number] [place] [address] 56431- 9121 May, [facility] [id number] [place] [address] 15524- 6555 May, Pseudobulbar affect F48.2 [facility] [id number] [place] [address] 54936- 9537 May, [facility] [id number] [place] [address] 37598- 5822 May, PVD (peripheral vascular disease) I73.9 [facility] [id number] [place] [address] 01750- 3403 May, Vascular dementia with behavior disturbance F01.51 [facility] [address] [address]- 0976 May, Vascular dementia with behavior disturbance F01.51 [facility] [address] [place] [address] 08861- 4967 Apr, [facility] [id number] [place] [address] 35717- 0018 Apr, Pain R52 [facility] [address] [facility] [place] [id number] Apr, Generalized anxiety disorder F41.1 ; PVD (peripheral vascular disease) I73.9 and Type 2 diabetes mellitus with complication E11.8 [facility] [address] [place] [address] 47804- 5952 Apr, Vascular dementia with behavior disturbance F01.51 [facility] [id number] [place] [address] 00384- 1988 Apr, [facility] [id number] [place] [address] 43860- 6919 Apr, Vascular dementia with behavior disturbance F01.51 [facility] [id number] [place] [address] 60324- 7553 Apr, [facility] [id number] [place] [address] [id number] Mar, [facility] [id number] [place] [address] 16226- 9195 Mar, Type 2 diabetes mellitus with complication E11.8 ; Vascular dementia with behavior disturbance F01.51 and Depression F32.9 [facility] [address] [place] [address] 57702- 4294 Mar, [facility] [id number] [place] [address] 75393- 2449 Feb, [facility] [address] [place] [address] 83733- 5834 Feb, Viral illness B34.9 [facility] [address] [address]- 6348 Jan, Diabetes 250.00 [facility] [address] [address]- 6451 Jan, [facility] [address] [address]- 0331 Jan, [facility] [id number] [place] [address] 91843- 8369 Jan, [facility] [address] [place] [id number] Jan, Vascular dementia with behavior disturbance F01.51 and Type 2 diabetes mellitus with complication E11.8 [facility] [address] [address]- 5769 Jan, Pain R52 [facility] [id number] [place] [address] 55276- 6399 Jan, Pain R52 [facility] [id number] [place] [address] 72589- 6854 Dec, [facility] [address] [address]- 5257 Nov, [facility] [address] [place] [id number] Nov, Type 2 diabetes mellitus with complication E11.8 [facility] [address] [address]- 7206 Nov, [facility] [address] [address]- 3636 Oct, [facility] [address] [address]- 0728 Oct, [facility] [address] [address]- 6290 Oct, Vascular dementia with behavior disturbance F01.51 and Type 2 diabetes mellitus with complication E11.8 [facility] [address] [address]- 7859 August, Type 2 diabetes mellitus with complication E11.8 and Vascular dementia with behavior disturbance F01.51 [facility] [address] [address]- 9788 August, Vascular dementia F01.50 [facility] [address] [address]- 0031 August, Vascular dementia with behavior disturbance F01.51 [facility] [address] [address]- 2342 Jul, Vascular dementia with behavior disturbance F01.51 [facility] [address] [address]- 8605 Jun, Vascular dementia F01.50 [facility] [address] [address]- 4578 Jun, Type 2 diabetes mellitus with complication E11.8 ; Long- term insulin use Z79.4 and Vascular dementia with behavior disturbance F01.51 [facility] [address] [address]- 4074 Jun, Vascular dementia with behavior disturbance F01.51 [facility] [address] [address]- 8384 Jun, Vascular dementia F01.50 [facility] [address] [address]- 6428 Apr, [facility] [address] [address]- 8701 Apr, [facility] [address] [address]- 0904 Apr, [facility] [address] [address]- 1258 Apr, Type 2 diabetes mellitus with complication E11.8 ; Depression F32.9 and Long-term insulin use Z79.4 [facility] [address] [address]- 4696 Mar, [facility] [address] [place] [id number] Mar, Depression F32.9 ; Type 2 diabetes mellitus with complication E11.8 and Long-term insulin use Z79.4 [facility] [address] [address]- 5996 Feb, [facility] [id number] [place] [address] 09725- 9331 Feb, Hyperthyroidism E05.90 [facility] [id number] [place] [address] 87610- 8936 Feb, Hyperthyroidism E05.90 [facility] [address] 4056 Feb, [facility] [id number] [place] [address] 33967- 0239 Jan, [facility] [address] [place] [address] 23795- 9002 Dec, Nicotine addiction 305.1 [facility] [id number] [place] [address] 51227- 4566 Oct, Nicotine abuse 305.1 [facility] [address] [address]- 3967 Oct, [facility] [id number] [place] [address] 19873- 7523 August, [facility] [address] [place] [id number] August, History of drug abuse 305.93 and Diabetes 250.00 [facility] [address] [address]- 4766 14 Jul, 2014 [facility] [address] [address]- 2718 Jul, [facility] [id number] [address]- 0994 Jun, [facility] [address] [id number] [place] [address]- 6657 Jun, [facility] [address] [id number] [place] [address]- 8102 Jun, [facility] [address] [id number] [place] [address]- 3919 Jun, [facility] [address] [id number] [place] [address]- 6052 Jun, [facility] [address] [id number] [place] [address]- 1536 Jun, [facility] [address] [id number] [place] [address]- 1799 May, [facility] [address] [id number] [place] [address]- 4761 May, [facility] [address] [id number] [place] [address]- 6728 May, [facility] [address] [id number] [place] [address]- 0772 May, [facility] [address] [facility] [id number] [place] [address]- 4029 May, [facility] [address] [id number] [address]- 6241 Apr, [facility] [address] [id number], [place] [address]- 0753 Apr, [facility] [address] [place] [id number] Apr, [facility] [address] [id number][place] [address]- 3940 Apr, [facility] [address] [facility] [id number] [address]- 1060 Apr, [facility] [place] [facility] [address] [id number] [place] [address]- 5809 Apr, [facility] [place] [facility] [address] [id number] [place] [address]- 8064 Apr, [facility] [place] [facility] [address] [id number] [place] [address]- 4380 Apr, [facility] [place] [facility] [address] [id number] [place] [address]- 2941 Mar, [facility] [place] [facility] [address] [id number] [place] [address]- 4232 Mar, [facility] [place] [facility] [address] [id number] [place] [address]- 5734 Mar, [facility] [place] [facility] [address] [id number] [place] 6200 Mar, [facility] [place] [facility] [address] [id number] [place] [address]- 9062 Mar, [facility] [place] [facility] [address] [id number] [place] [address]- 2699 Mar, [facility] [place] [facility] [address] [id number] [place] [address]- 9720 Mar, [facility] [place] [facility] [address] [id number] [place] [address]- 6137 Mar, [facility] [place] [facility] [address] [id number] [place] [address]- 8513 Feb, [facility] [place] [facility] [address] [id number] [place] [address]- 9513 Feb, [facility] [place] [facility] [address] [id number] [place] [address]- 8832 Feb, [facility] [place] [facility] [address] [id number] [place] [address]- 3565 Feb, [facility] [place] [facility] [address] [id number] [place] [address]- 7981 Feb, [facility] [address] [place] [id number] Feb, [facility] [place] [facility] [address] [id number] [place] [address]- 1357 Feb, [facility] [place] [facility] [address] [id number] [place] [address]- 3765 Feb, [facility] [place] [facility] [address] [id number] [place] [address]- 2159 Feb, [facility] [place] [facility] [address] [id number] [place] [address]- 0963 Feb, [facility] [place] [facility] [address] [id number] [place] [address]- 8541 Jan, [facility] [place] [facility] [address] [id number] [place] [address]- 2814 Jan, [facility] [place] [facility] [address] [id number] [place] [address]- 3341 Jan, [facility] [place] [facility] [address] [id number] [place] [address]- 6741 17 Jan, 2014 [facility] [place] [facility] [address] [id number][place] [address]- 9469 16 Jan, 2014 [facility] [place] [facility] [address] [id number] [place] [address]- 4468 16 Jan, 2014 [facility] [place] [facility] [address] [id number] [address] 15 Jan, 2014 [facility] [place] [facility] [address] [id number] [place] [address] 13 Jan, 2014 [facility] [place] [facility] [address] [id number] [place] [address] Jan, [facility] [place] [facility] [address] [id number] [place] [address] 13 Jan, 2014 [facility] [place] [facility] [address] [id number] [place] [address] 13 Jan, 2013 [facility] [place] [facility] [address] [id number] [place] [address] 09 Jan, 2013 [facility] [place] [facility] [address] [id number] [place] [address] Jan, 2013 [facility] [place] [facility] [address] [id number] [place] [address] 08 Jan, 2013 [facility] [place] [facility] [address] [id number] [place] [address] 08 Jan, 2013 [facility] [place] [facility] [address] [id number] [place] [address] Jan, 2013 [facility] [place] [facility] [address] [id number] [place] [address] Jan, 2013 [facility] [place] [facility] [address] [id number] [place] [address] 19 Sep, 2013 [facility] [place] [facility] [address] [id number] [place] [address] 19 Sep, 2013 [facility] [place] [facility] [address] [id number] [place] [address] 11 Sep, 2013 [facility] [place] [facility] [address] [id number] [place] [address] 11 Sep, 2013 [facility] [place] [facility] [address] [id number] [place] [address] 09 Sep, 2013 [facility] [place] [facility] [address] [id number][place] [address] 09 Sep, 2013 [facility] [place] [facility] [address] [id number] [place] [address] 08 Sep, 2013 [facility] [place] [facility] [address] [id number][place] [address]- [address] 08 Sep, 2013 [facility] [place] [facility] [address] [id number][place] [address] 08 Sep, 2013 [facility] [place] [facility] [address] [id number] [place] [address] 08 Dec, 2013 [facility] [place] [facility] [address] [id number] [place] [address] Dec, [facility] [place] [facility] [address] [id number] [place] [address] Dec, [facility] [place] [facility] [address] [id number] [place] [address] Dec, [facility] [place] [facility] [address] [id number] [place] [address] Dec, [facility] [place] [facility] [address] [id number] [place] [address]- 1091 Nov, [facility] [place] [facility] [address] [id number] [place] [address] Nov, [facility] [place] [facility] [address] [id number] [place] [address]- 8014 Nov, [facility] [place] [facility] [address] [id number] [place] [address]- 9886 Nov, [facility] [place] [facility] [address] [id number] [place] [address]- 9254 Nov, [facility] [place] [facility] [address] [id number] [place] [address]- 8444 Nov, [facility] [place] [facility] [address] [id number] [place] [address]- 6481 Nov, [facility] [place] [facility] [address] [id number] [place] [address]- 7516 Nov, [facility] [place] [facility] [address] [id number] [place] [address]- 2542 Nov, [facility] [place] [facility] [address] [id number] [place] [address]- 2545 Nov, [facility] [place] [facility] [address] [id number] [place] [address]- 6368 Nov, [facility] [place] [facility] [address] [id number] [place] [address]- 8287 Nov, [facility] [place] [facility] [address] [id number] [place] [address]- 2936 Nov, [facility] [place] [facility] [address] [id number] [place] [address] Nov, [facility] [place] [facility] [address] [id number] [place] [address]- 6177 Oct, [facility] [place] [facility] [address] [id number] [place] [address]- 4289 Oct, [facility] [place] [facility] [address] [id number] [place] [address]- 8672 Oct, [facility] [place] [facility] [address] [id number] [place] [address]- 4697 Oct, [facility] [place] [facility] [address] [id number] [place] [address]- 5490 Oct, [facility] [place] [facility] [address] [id number] [place] [address]- 6547 Oct, [facility] [place] [facility] [address] [id number] [place] [address]- 8955 Oct, [facility] [place] [facility] [address] [id number] [place] [address]- 1276 Oct, [facility] [place] [facility] [address] [id number] [place] [address]- 5281 Oct, [facility] [place] [facility] [address] [id number] [place] [address]- 7583 Oct, [facility] [place] [facility] [address] [id number] [place] [address]- 6129 Oct, [facility] [place] [facility] [address] [id number] [place] [address]- 9707 Oct, [facility] [place] [facility] [address] [id number] [place] [address]- 1011 Oct, 2013 [facility] [place] [facility] [address] [id number] [place] [address]- 5474 Oct, 2013 [facility] [place] [facility] [address] [id number] [place] [address]- 2783 Oct, 2013 [facility] [place] [facility] [address] [id number] [place] [address]- 6686 Oct, 2013 [facility] [place] [facility] [address] [id number] [place] [address]- 9795 Oct, 2013 [facility] [place] [facility] [address] [id number] [place] [address]- 5786 Oct, [facility] [place] [facility] [address] [id number] [place] [address]- 5529 Oct, [facility] [place] [facility] [address] [id number] [place] [address]- 9874 Oct, [facility] [place] [facility] [address] [id number] [place] [address]- 9188 Sep, [facility] [place] [facility] [address] [id number] [place] [address]- 4581 Sep, [facility] [place] [facility] [address] [id number] [place] [address]- 9970 Sep, [facility] [place] [facility] [address] [id number] [place] [address]- 1150 Sep, [facility] [place] [facility] [address] [id number] [place] [address]- 3381 Sep, [facility] [place] [facility] [address] [id number] [place] [address]- 0472 Sep, [facility] [place] [facility] [address] [id number] [place] [address]- 7335 August, [facility] [place] [facility] [address] [id number] [place] [address]- 1464 August, [facility] [place] [facility] [address] [id number] [place] [address]- 9082 Jul, [facility] [place] [facility] [address] [id number] [place] [address]- 4362 Jul, [facility] [place] [facility] [address] [id number] [place] [address]- 2675 Jul, [facility] [place] [facility] [address] [id number] [place] [address]- 3491 Jul, [facility] [place] [facility] [address] [id number] [place] [address]- 4731 Jul, [facility] [place] [facility] [address] [id number] [place] [address]- 2981 Jul, [facility] [place] [facility] [address] [id number] [place] [address]- 8966 Jul, [facility] [place] [facility] [address] [id number] [place] [address]- 9384 Jul, [facility] [place] [facility] [address] [id number] [place] [address]- 4305 Jun, [facility] [place] [facility] [address] [id number] [place] [address]- 5334 Jun, [facility] [place] [facility] [address] [id number] [place] [address]- 3296 Jun, [facility] [place] [facility] [address] [id number] [place] [address]- 6132 Jun, [facility] [place] [facility] [address] [id number] [place] [address]- 8615 Jun, [facility] [place] [facility] [address] [id number] [place] [address]- 5846 May, [facility] [place] [facility] [address] [id number] [place] [address]- 1186 May, [facility] [place] [facility] [address] [id number] [place] [address]- 1871 May, [facility] [place] [facility] [address] [id number] [place] [address]- 3876 May, [facility] [place] [facility] [address] [id number] [place] [address]56 May, 2013 [facility] [place] [facility] [address] [id number] [place] [address]- 5376 May, [facility] [place] [facility] [address] [id number] [place] [address]- 2546 May, [facility] [place] [facility] [address] [id number] [place] [address]- 5796 May, [facility] [place] [facility] [address] [facility] [id number] [place] [address]- 2036 May, [facility] [place] [facility] [address] [id number] [address]- 0436 May, [facility] [place] [facility] [address] [facility] [id number] [place] [address]- 8574 May, [facility] [place] [facility] [address] [facility] [id number] [place] [address]- 1093 Apr, [facility] [place] [facility] [address] [facility] [id number] [place] [address]- 9090 Apr, [facility] [place] [facility] [address] [facility] [id number] [place] [address] 2546 Mar, [facility] [place] [facility] [address] [id number] [place] [address]- 2546 Mar, [facility] [place] [facility] [address] [facility] [id number] [place] [address]- 9996 Mar, [facility] [place] [facility] [address] [facility] [id number] [place] [address] 2546 Mar, [facility] [place] [facility] [address] [facility] [id number] [place] [address]- 7895 Mar, [facility] [place] [facility] [address] [id number] [place] [address]- 3116 Jan, [facility] [place] [facility] [address] [id number] [place] [address]- 8111 Jan, [facility] [place] [facility] [address] [id number] [place] [address]- 2926 Jan, [facility] [place] [facility] [address] [id number] [place] [address]- 2515 Jan, [facility] [place] [facility] [address] [id number] [place] [address]- 6191 Jan, [facility] [place] [facility] [address] [id number] [place] [address]- 6858 Jan, [facility] [place] [facility] [address] [id number] [place] [address]- 1600 Jan, [facility] [place] [facility] [address] [id number][place] [address]- 3091 Jan, [facility] [place] [facility] [address] [id number] [place] [address]- 6516 Jan, [facility] [place] [facility] [address] [id number][place] [address]- 7055 Jan, [facility] [place] [facility] [address] [id number], [place] [address]- 8209 Dec, [facility] [place] [facility] [address] [id number][place] [address]- 4281 Oct, [facility] [place] [facility] [address] [id number][place] [address]- 7550 Oct, [facility] [place] [facility] [address] [id number][place] [address]- 8862 Oct, [facility] [place] [facility] [address] [id number][place] [address]- 2912 Oct, [facility] [place] [facility] [address] [id number][place] [address]- 2965 Oct, [facility] [address] [id number] [place] [address]- 2709 Oct, [facility] [address] [id number] [place] [address]- 3540 Sep, [facility] [address] [id number] [place] [address]- 9616 August, [facility] [address] [id number] [place] [address]- 8069 August, [facility] [address] [id number] [place] [address]- 2010 August, [facility] [address] [id number] [place] [address]- 8176 August, [facility] [address] [id number] [place] [address]- 3860 August, [facility] [address] [id number] [place] [address]- 7248 May, [facility] [address] [id number] [place] [address]- 4001 Apr, [facility] [address] [id number] [place] [address]- 5829 Apr, [facility] [address] [id number] [place] [address]- 1676 Apr, [facility] [address] [id number] [place] [address]- 5868 Apr, [facility] [address] [id number] [place] [address]- 4635 Apr, [facility] [address] [place] [id number] Mar, [facility] [address] [id number] [place] [address]- 8400 Mar, [facility] [address] [id number] [place] [address]- 7096 19 Mar, 2012 [facility] [address] [id number] [place] [address]- 3646 19 Mar, 2012 [facility] [address] [id number] [place] [address]- 8386 17 Mar, 2012 [facility] [address] [id number] [place] [address]- 4706 17 Mar, 2012 [facility] [address] [id number] [place] [address]- 1516 13 Mar, 2012 [facility] [address] [id number] [place] [address]- 1896 13 Mar, 2012 [facility] [address] [id number] [place] [address]- 4446 13 Mar, 2012 [facility] [address] [id number] [place] [address]- 3111 13 Mar, 2012 [facility] [address] [id number] [place] [address]- 4966 12 Mar, 2012 [facility] [address] [id number] [place] [address]- 2716 12 Mar, 2012 [facility] [address] [id number] [place] [address]- 3454 10 Mar, 2012 [facility] [address] [id number] [place] [address]- 2736 10 Mar, 2012 [facility] [address] [id number] [place] [address]- 9996 07 Mar, 2012 [facility] [address] [id number] [place] [address]- 1526 07 Mar, 2012 [facility] [address] [id number] [place] [address]- 3966 06 Mar, 2012 [facility] [address] [id number] [place] [address]- 6110 Mar, [facility] [place] [facility] [address] [id number] [place] [address]756 Mar, [facility] [place] [facility] [address] [id number] [place] [address]- 6177 Mar, [facility] [place] [facility] [address] [id number] [place] [address]- 6310 Feb, [facility] [place] [facility] [address] [id number] [place] [address]- 1353 Feb, [facility] [place] [facility] [address] [id number] [place] [address]- 4575 Feb, [facility] [place] [facility] [address] [id number] [place] [address]- 8578 Feb, [facility] [place] [facility] [address] [facility] [id number] [place] [address]- 5662 Jan, [facility] [place] [facility] [address] [id number] [place] [address]- 4641 Jan, [facility] [place] [facility] [address] [id number] [place] [address]- 3878 Jan, [facility] [place] [facility] [address] [id number] [place] [address]- 4236 Jan, [facility] [place] [facility] [address] [facility] [id number][place] [address]- 0044 Jan, [facility] [place] [facility] [address] [id number][place] [address]- 3673 Jan, [facility] [place] [facility] [address] [id number] [place] [address]- 0312 Jan, [facility] [place] [facility] [address] [id number] 9181 Jan, [facility] [place] [facility] [address] [facility] [id number] 5300 Jan, [facility] [place] [facility] [address] [id number][place] [address]- 1959 27 Dec, 2011 [facility] [place] [facility] [address] [id number] [place] [address]- 2406 14 Dec, 2011 [facility] [place] [facility] [address] [id number] [place] [address]- 5386 12 Dec, 2011 [facility] [place] [facility] [address] [id number] [place] [address]- 6286 06 Dec, 2011 [facility] [place] [facility] [address] [id number] [place] [address]- 8451 06 Dec, 2011 [facility] [place] [facility] [address] [id number] [place] [address]- 7548 Nov, [facility] [place] [facility] [address] [id number] [place] [address]- 4941 Nov, [facility] [place] [facility] [address] [id number] [place] [address]- 0771 Nov, [facility] [place] [facility] [address] [id number] [place] [address]- 4403 Nov, [facility] [place] [facility] [address] [id number] [place] [address]- 5439 Nov, [facility] [place] [facility] [address] [id number] [place] [address]- 3409 Nov, [facility] [place] [facility] [address] [id number] [place] [address]- 9737 Nov, [facility] [place] [facility] [address] [id number] [place] [address]- 2444 Nov, [facility] [place] [facility] [address] [id number] [place] [address]- 2057 Nov, [facility] [place] [facility] [address] [id number] [place] [address]- 4440 Oct, [facility] [place] [facility] [address] [id number] [place] [address]- 6602 Oct, [facility] [place] [facility] [address] [id number] [place] [address]- 1245 14 Sep, 2011 [facility] [place] [facility] [address] [id number] [place] [address]- 1188 13 Sep, 2011 [facility] [place] [facility] [address] [id number] [place] [address]- 4623 05 Sep, 2011 [facility] [address] [id number] [place] [address]- 4082 14 Aug, 2011 [facility] [place] [facility] [address] [id number] [place] [address]- 5333 30 Jul, 2011 [facility] [place] [facility] [address] [id number] [place] [address]- 3102 27 Jul, 2011 [facility] [place] [facility] [address] [id number] [place] [address]- 3581 27 Jul, 2011 [facility] [place] [facility] [address] [id number] [place] [address]- 6921 18 Jul, 2011 [facility] [address] [id number] [place] [address]- 7273 16 Jul, 2011 [facility] [place] [facility] [address] [id number] [place] [address]- 3501 16 Jul, 2011 [facility] [place] [facility] [address] [id number] [place] [address]- 6950 16 Jul, 2011 [facility] [place] [facility] [address] [id number] [place] [address]- 4095 14 Jul, 2011 [facility] [place] [facility] [address] [id number] [place] [address]- 1748 12 Jul, 2011 [facility] [place] [facility] [address] [id number] [place] 6676 19 Jun, 2011 [facility] [place] [facility] [address] [id number] [place] 1796 18 Jun, 2011 [facility] [place] [facility] [address] [id number] [place] [address]- 5865 15 Jun, 2011 [facility] [place] [facility] [address] [id number] [place] [address]- 8625 Jun, [facility] [place] [facility] [address] [id number] [place] [address]- 7525 Jun, [facility] [place] [facility] [address] [id number] [place] [address]- 0717 Jun, [facility] [place] [facility] [address] [id number] [place] [address]- 5540 Jun, [facility] [place] [facility] [address] [id number] [place] [address]- 8064 Jun, [facility] [place] [facility] [address] [id number] [place] [address]- 5837 May, [facility] [place] [facility] [address] [id number] [place] [address]- 8127 May, [facility] [place] [facility] [address] [id number] [place] [address]- 2208 May, [facility] [place] [facility] [address] [id number] [place] [address]- 6042 Apr, [facility] [place] [facility] [address] [id number] [place] [address]- 7624 Apr, [facility] [place] [facility] [address] [id number] [place] [address]- 0738 Apr, [facility] [place] [facility] [address] [id number] [place] [address]- 8185 Mar, [facility] [place] [facility] [address] [id number] [place] [address]- 8739 Mar, [facility] [place] [facility] [address] [id number] [place] [address]- 0091 Mar, [facility] [place] [facility] [address] [id number] [place] [address]- 9046 Mar, [facility] [place] [facility] [address] [id number] [place] [address]- 7854 13 Mar, 2011 [facility] [address] [id number] [place] [address]- 4256 Mar, [facility] [place] [facility] [address] [id number] [place] [address]- 3906 Mar, [facility] [place] [facility] [address] [id number] [place] [address]- 1234 Mar, [facility] [place] [facility] [address] [id number] [place] [address]- 3078 08 Mar, 2011 [facility] [place] [facility] [address] [id number] [place] [address]- 3441 Mar, [facility] [place] [facility] [address] [id number] [place] [address]- 6618 Mar, [facility] [place] [facility] [address] [id number] [place] [address]- 9461 Mar, [facility] [place] [facility] [address] [id number] [place] [address]- 5701 Mar, [facility] [place] [facility] [address] [id number] [place] [address]- 7347 Mar, [facility] [place] [facility] [address] [facility] [id number] [place] [address]- 0044 Feb, [facility] [place] [facility] [address] [id number] [place] [address]- 4983 Feb, [facility] [place] [facility] [address] [id number] [place] [address]- 9291 14 Feb, 2011 [facility] [place] [facility] [address] [id number] [place] [address]- 9322 29 Jan, 2011 [facility] [place] [facility] [address] [id number] [place] [address] Jan, [facility] [place] [facility] [address] [id number] [place] [address] Oct, [facility] [address] [facility] [id number][place] [address] Sep, [facility] [address] [facility] [id number] [address] Mar, [facility] [address] [facility] [id number][place] [address] Mar, [facility] [address] [facility] [id number][place] [address] Feb, [facility] [address] [facility] [id number][place] [address] Feb, [facility] [address] [facility] [id number][place] [address] Jan, [facility] [address] [facility] [id number][place] [address] Jan, [facility] [address] [id number] [address] Mar, [facility] [address] [facility] [id number][place] [address] Feb, [facility] [address] [id number] [address] Feb, [facility] [id number] [address] Feb, [facility] [address] [facility] [id number][place] [address] Feb, [facility] [address] [facility] [id number][place] [address] Jan, [facility] [address] [facility] [id number][place] [address] Dec, [facility] [address] [id number] [address] Nov, IMMUNIZATIONS No Known Immunizations SOCIAL HISTORY Never Assessed REASON FOR VISIT Request for medications PLAN OF CARE VITAL SIGNS MEDICATIONS Unknown Medications RESULTS No Results PROCEDURES No Known procedures INSTRUCTIONS MEDICATIONS ADMINISTERED No Known Medications MEDICAL (GENERAL) HISTORY Type Description Date Hospitalization History [facility] March 2015
--- OUTSIDE RECORDS SUMMARY | 2018-02-25 07:47 | XMS REPORT ---
Author Author MIKAEL ROSE Organization [facility] Address [address] [place] [address] Care Team Providers Care Film Spooler Name Role Phone MIKAEL ROSE Unavailable PROBLEMS Type Condition ICD9-CM Code IJQ15-JQ Code Onset Dates Condition Status SNOMED Code Problem Hyperlipidemia, unspecified hyperlipidemia type E78.5 Active 93101398 Problem Long-term insulin use Z79.4 Active 386311230 Problem Abnormal carotid ultrasound R93.8 Active 005316639 Problem Type 2 diabetes mellitus with complication E11.8 Active 56861085 Problem Positive TB test R76.11 Active 380467628 Problem Vascular dementia with behavior disturbance F01.51 Active 545794159 Problem PVD (peripheral vascular disease) I73.9 Active 554831472 Problem Pain R52 Active 44376304 Problem Other chronic osteomyelitis of left foot M86.672 Active 767488157 Problem Nicotine dependence, unspecified, uncomplicated F17.200 Active 669890426 Problem Peripheral vascular disease due to secondary diabetes E13.51 Active 0019676 Problem Nonintractable epilepsy without status epilepticus, unspecified epilepsy type G40.909 Active 590773662 Problem Recurrent major depressive disorder, remission status unspecified F33.9 Active 56849590 Problem Anxiety F41.9 Active 06467595 Problem Generalized anxiety disorder F41.1 Active 88541619 Problem Vascular dementia F01.50 Active 669527843 Problem Pseudobulbar affect F48.2 Active 12493162 Problem Coronary artery disease involving [place] coronary artery of [place] heart without angina pectoris I25.10 Active 3879929037808 Problem Gastroesophageal reflux disease without esophagitis K21.9 Active 936717219 Problem Cerebrovascular accident (CVA) due to other mechanism I63.8 Active 194353829 Problem Pulmonary emphysema, unspecified emphysema type J43.9 Active 39552253 Problem Neuropathy G62.9 Active 693542660 Problem Depression F32.9 Active 27018570 Problem Essential hypertension I10 Active 95561534 Problem Acquired hypothyroidism E03.9 Active 408989749 ALLERGIES No Information ENCOUNTERS Encounter Location Date Diagnosis [facility] [id number] [place] [address] 94756- 5755 Dec, [facility] [id number] [place] [address] 18671- 6775 Nov, Generalized anxiety disorder F41.1 [facility] [id number] [place] [address] 62648- 0619 Oct, Generalized anxiety disorder F41.1 [facility] [id number] [place] [address] 96337- 0978 Oct, Generalized anxiety disorder F41.1 [facility] [address] [id number] Oct, Sepsis, due to unspecified organism A41.9 ; Generalized anxiety disorder F41.1 ; Pain R52 and Depression F32.9 [facility] [id number] [place] [address] 56497- 7963 Oct, [facility] [id number] [place] [address] 13822- 8301 Oct, [facility] [id number] [place] [address] 45226- 0106 Sep, Generalized anxiety disorder F41.1 [facility] [id number] [place] [address] 69174- 8645 Sep, [facility] [id number] [place] [address] 07546- 0248 Sep, Type 2 diabetes mellitus with complication E11.8 [facility] [address] [place] [address] 04039- 5797 August, Generalized anxiety disorder F41.1 [facility] [id number] [place] [address] 70246- 9010 August, [facility] [address] [id number] August, Type 2 diabetes mellitus with complication E11.8 ; Vascular dementia with behavior disturbance F01.51 ; Long-term insulin use Z79.4 and Nicotine dependence, unspecified, uncomplicated F17.200 [facility] [address] [place] [address] [id number]- 6041 August, Generalized anxiety disorder F41.1 [facility] [address] [address] [address]87 Jul, Generalized anxiety disorder F41.1 [facility] [id number] [place] [address] [id number] Jun, Generalized anxiety disorder F41.1 [facility] [id number] [place] [address] [id number] Jun, [facility] [address] [id number] May, [facility] [id number] [place] [address] 36919- 1103 May, [facility] [id number] [place] [address] [id number] May, Generalized anxiety disorder F41.1 [facility] [address] [place] [address] [id number]- 0269 Apr, [facility] [address] [place] [id number] Apr, Other chronic osteomyelitis of left foot M86.672 ; Type 2 diabetes mellitus with complication E11.8 ; Vascular dementia F01.50 ; Long-term insulin use Z79.4 ; PVD (peripheral vascular disease) I73.9 and Nicotine abuse 305.1 [facility] [address], [place] [address]- 8377 Apr, [facility] [id number] [place] [address] [phone] Apr, [facility] [address], [place] [address]- 6539 Apr, Pain R52 and Generalized anxiety disorder F41.1 [facility] [id number] [place] [address] 30480- 8885 14 Mar, 2017 [facility] [id number] [place] [address] 23527- 6808 Mar, Pain R52 and Generalized anxiety disorder F41.1 [facility] [address] [place] [id number] Feb, Depression F32.9 ; Type 2 diabetes mellitus with complication E11.8 and Nicotine dependence, unspecified, uncomplicated F17.200 [facility] [id number] [place] [address] 88032- 9372 Feb, Generalized anxiety disorder F41.1 and Pain R52 [facility] [address] 49794- 3168 Feb, [facility] [address] 27860- 9092 Jan, [facility] [id number] [place] [address] 49469- 1611 Jan, Generalized anxiety disorder F41.1 and Pain R52 [facility] [id number] [place] [address] 00201- 6476 Jan, [facility] [id number] [place] [address] [id number] Dec, Generalized anxiety disorder F41.1 and Pain R52 [facility] [address] [place] [id number] Dec, Vascular dementia F01.50 ; Pain of left leg M79.605 ; Pain in right leg M79.604 and Type 2 diabetes mellitus with complication E11.8 [facility] [id number] [place] [address] 36379- 5405 11 Dec, 2016 Pain R52 [facility] [id number] [place] [address] 31668- 8351 Dec, [facility] [id number] [place] [address] 02073- 2786 Nov, [facility] [address], [place] [address]- 0033 Nov, Pain R52 and Generalized anxiety disorder F41.1 [facility] [address] [place] [id number] Nov, Depression F32.9 ; Vascular dementia with behavior disturbance F01.51 and Anxiety F41.9 [facility] [id number] [place] [address] 85538- 9920 Nov, Pain R52 and Generalized anxiety disorder F41.1 [facility] [id number] [place] [address] 19080- 6604 Oct, Generalized anxiety disorder F41.1 [facility] [id number] [place] [address] 29081- 8566 Oct, Pain R52 [facility] [id number] [place] [address] 79762- 9231 Sep, [facility] [address] [place] [id number] Sep, Generalized anxiety disorder F41.1 [facility] [id number] [place] [address] 01837- 7653 Sep, Pain R52 [facility] [id number] [place] [address] 62200- 3926 Sep, Generalized anxiety disorder F41.1 [facility] [address], [place] [address]- 7357 August, [facility] [id number] [place] [address] 66368- 1792 August, [facility] [id number] [place] [address] 58481- 7469 August, Pain R52 [facility] [id number] [place] [address] 37323- 1416 August, Generalized anxiety disorder F41.1 [facility] [id number] [place] [address] [phone] August, Generalized anxiety disorder F41.1 [facility] [id number] [place] [address] 13810- 7302 17 Jul, 2016 Pain R52 [facility] [id number] [place] [address] 518773- 0129 Jul, [facility] [id number] [place] [address] [phone] Jul, [facility] [id number] [place] [address] 06096- 4845 Jun, [facility] [address] [id number] Jun, Depression F32.9 [facility] [id number] [place] [address] 38010- 0013 Jun, Pain R52 [facility] [address] 62764- 9267 Jun, [facility] [address] [place] [id number] Jun, Vascular dementia F01.50 and Depression F32.9 [facility] [id number] [place] [address] 28054- 1285 May, Pain R52 [facility] [id number] [place] [address] 43868- 6825 May, [facility] [id number] [place] [address] 14422- 1750 May, Pseudobulbar affect F48.2 [facility] [id number] [place] [address] 81285- 5030 May, [facility] [id number] [place] [address] 54094- 6910 May, PVD (peripheral vascular disease) I73.9 [facility] [id number] [place] [address] 39990- 8764 May, Vascular dementia with behavior disturbance F01.51 [facility] [address], [place] [address]- 9433 May, Vascular dementia with behavior disturbance F01.51 [facility] [address] [place] [address] 98453- 4357 Apr, [facility] [id number] [place] [address] 01846- 1798 Apr, Pain R52 [facility] [address] [facility] [place] [id number] Apr, Generalized anxiety disorder F41.1 ; PVD (peripheral vascular disease) I73.9 and Type 2 diabetes mellitus with complication E11.8 [facility] [address] [place] [address] 94757- 9603 Apr, Vascular dementia with behavior disturbance F01.51 [facility] [id number] [place] [address] 79825- 3283 Apr, [facility] [id number] [place] [address] 13164- 8268 Apr, Vascular dementia with behavior disturbance F01.51 [facility] [id number] [place] [address] 40002- 0681 Apr, [facility] [id number] [place] [address] [phone] Mar, [facility] [id number] [place] [address] 40605- 9801 Mar, Type 2 diabetes mellitus with complication E11.8 ; Vascular dementia with behavior disturbance F01.51 and Depression F32.9 [facility] [address] [place] [address] 39618- 7351 Mar, [facility] [id number] [place] [address] 31280- 4530 Feb, [facility] [address] [place] [address] 38352- 6556 Feb, Viral illness B34.9 [facility] [address], [place] [address]- 5216 Jan, Diabetes 250.00 [facility] [address], [place] [address]- 3218 Jan, [facility] [address], [place] [address]- 3710 Jan, [facility] [address] [place] [address] 83655- 7374 Jan, [facility] [address] [place] [id number] Jan, Vascular dementia with behavior disturbance F01.51 and Type 2 diabetes mellitus with complication E11.8 [facility] [address], [place] [address]- 6943 Jan, Pain R52 [facility] [id number] [place] [address] 95475- 7574 Jan, Pain R52 [facility] [address] [place] [address] 04703- 8725 Dec, [facility] [address], [place] [address]- 6834 Nov, [facility] [address] [place] [id number] Nov, Type 2 diabetes mellitus with complication E11.8 [facility] [address], [place] [address]- 3951 Nov, [facility] [address], [place] [address]- 4863 Oct, [facility] [address], [place] [address]- 0119 Oct, [facility] [address], [place] [address]- 0014 Oct, Vascular dementia with behavior disturbance F01.51 and Type 2 diabetes mellitus with complication E11.8 [facility] [address], [place] [address]- 3625 August, Type 2 diabetes mellitus with complication E11.8 and Vascular dementia with behavior disturbance F01.51 [facility] [address], [place] [address]- 4118 August, Vascular dementia F01.50 [facility] [address], [place] [address]- 3548 August, Vascular dementia with behavior disturbance F01.51 [facility] [address], [place] [address]- 1683 Jul, Vascular dementia with behavior disturbance F01.51 [facility] [address], [place] [address]- 4000 Jun, Vascular dementia F01.50 [facility] [address], [place] [address]- 9897 Jun, Type 2 diabetes mellitus with complication E11.8 ; Long- term insulin use Z79.4 and Vascular dementia with behavior disturbance F01.51 [facility] [address], [place] [address]- 7427 Jun, Vascular dementia with behavior disturbance F01.51 [facility] [address], [place] [address]- 4212 Jun, Vascular dementia F01.50 [facility] [address], [place] [address]- 5476 Apr, [facility] [address], [place] [address]- 8379 Apr, [facility] [address], [place] [address]- 1404 Apr, [facility] [address], [place] [address]- 6513 Apr, Type 2 diabetes mellitus with complication E11.8 ; Depression F32.9 and Long-term insulin use Z79.4 [facility] [address], [place] [address]- 6376 Mar, [facility] [address] [place] [id number] Mar, Depression F32.9 ; Type 2 diabetes mellitus with complication E11.8 and Long-term insulin use Z79.4 [facility] [address], [place] [address]- 4936 Feb, [facility] [id number] [place] [address] 97553- 6142 Feb, Hyperthyroidism E05.90 [facility] [id number] [place] [address] 09842- 4556 Feb, Hyperthyroidism E05.90 [facility] [address] 0026 Feb, [facility] [id number] [place] [address] 01861- 8109 Jan, [facility] [address] [place] [address] 63024- 2793 Dec, Nicotine addiction 305.1 [facility] [id number] [place] [address] 00629- 1856 Oct, Nicotine abuse 305.1 [facility] [address], [place] [address]- 6248 Oct, [facility] [id number] [place] [address] 88704- 0858 August, [facility] [address] [place] [id number] August, History of drug abuse 305.93 and Diabetes 250.00 [facility] [address], [place] [address]- 8096 14 Jul, 2014 [facility] [address], [place] [address]- 8790 Jul, [facility] [id number] [place] [address]- 1077 Jun, [facility] [address] [id number] [place] [address]- 5896 Jun, [facility] [address] [id number] [place] [address]- 2154 Jun, [facility] [address] [id number] [place] [address]- 3343 Jun, [facility] [address] [id number] [place] [address]- 6943 Jun, [facility] [address] [id number] [place] [address]- 5174 Jun, [facility] [address] [id number] [place] [address]- 9207 May, [facility] [address] [id number] [place] [address]- 7875 May, [facility] [address] [id number] [place] [address]- 8589 May, [facility] [address] [id number] [place] [address]- 1677 May, [facility] [address] [facility] [id number] [place] [address]- 6979 May, [facility] [address] [id number] [address]- 7130 Apr, [facility] [address] [id number], [place] [address]- 7979 Apr, [facility] [address] [id number] Apr, [facility] [address] [id number], [place] [address]- 2958 Apr, [facility] [address] [facility] [id number], [place] [address]- 3408 Apr, [facility] [place] [facility] [address] [id number] [place] [address]- 2470 Apr, [facility] [place] [facility] [address] [id number] [place] [address]- 6183 Apr, [facility] [place] [facility] [address] [id number] [place] [address]- 2170 Apr, [facility] [place] [facility] [address] [id number] [place] [address]- 1202 Mar, [facility] [place] [facility] [address] [id number] [place] [address]- 7627 Mar, [facility] [place] [facility] [address] [id number] [place] [address]- 6997 Mar, [facility] [place] [facility] [address] [id number] [place] 3619 Mar, [facility] [place] [facility] [address] [id number] [place] [address]- 7902 Mar, [facility] [place] [facility] [address] [id number] [place] [address]- 0444 Mar, [facility] [place] [facility] [address] [id number] [place] [address]- 9774 Mar, [facility] [place] [facility] [address] [id number] [place] [address]- 2909 Mar, [facility] [place] [facility] [address] [id number] [place] [address]- 1487 Feb, [facility] [place] [facility] [address] [id number] [place] [address]- 8137 Feb, [facility] [place] [facility] [address] [id number] [place] [address]- 6020 Feb, [facility] [place] [facility] [address] [id number] [place] [address]- 4916 Feb, [facility] [place] [facility] [address] [id number] [place] [address]- 3709 Feb, [facility] [address] [place] [id number] Feb, [facility] [place] [facility] [address] [id number] [place] [address]- 0771 Feb, [facility] [place] [facility] [address] [id number] [place] [address]- 6607 Feb, [facility] [place] [facility] [address] [id number] [place] [address]- 8598 Feb, [facility] [place] [facility] [address] [id number] [place] [address]- 5888 Feb, [facility] [place] [facility] [address] [id number] [place] [address]- 9178 Jan, [facility] [place] [facility] [address] [id number] [place] [address]- 3741 Jan, [facility] [place] [facility] [address] [id number] [place] [address]- 7513 Jan, [facility] [place] [facility] [address] [id number] [place] [address]- 2922 17 Jan, 2014 [facility] [place] [facility] [address] [id number], [place] [address]- 3157 16 Jan, 2014 [facility] [place] [facility] [address] [id number] [place] [address]- 1228 16 Jan, 2014 [facility] [place] [facility] [address] [id number], [place] [address]- 5173 15 Jan, 2014 [facility] [place] [facility] [address] [id number] [place] [address]- 9210 13 Jan, 2014 [facility] [place] [facility] [address] [id number] [place] [address]- 6153 Jan, [facility] [place] [facility] [address] [id number] [place] [address]- 2815 13 Jan, 2014 [facility] [place] [facility] [address] [id number] [place] [address]- 9945 13 Jan, 2013 [facility] [place] [facility] [address] [id number] [place] [address] 09 Jan, 2013 [facility] [place] [facility] [address] [id number] [place] [address] Jan, 2013 [facility] [place] [facility] [address] [id number] [place] [address] 08 Jan, 2013 [facility] [place] [facility] [address] [id number] [place] [address] 08 Jan, 2013 [facility] [place] [facility] [address] [id number] [place] [address] Jan, 2013 [facility] [place] [facility] [address] [id number] [place] [address] Jan, 2013 [facility] [place] [facility] [address] [id number] [place] [address] 19 Sep, 2013 [facility] [place] [facility] [address] [id number] [place] [address] 19 Sep, 2013 [facility] [place] [facility] [address] [id number] [place] [address] 11 Sep, 2013 [facility] [place] [facility] [address] [id number] [place] [address] 11 Sep, 2013 [facility] [place] [facility] [address] [id number] [place] [address] 09 Sep, 2013 [facility] [place] [facility] [address] [id number], [place] [address] 09 Sep, 2013 [facility] [place] [facility] [address] [id number] [place] [address] 08 Sep, 2013 [facility] [place] [facility] [address] [id number], [place] [address] 08 Sep, 2013 [facility] [place] [facility] [address] [id number], [place] [address] 08 Sep, 2013 [facility] [place] [facility] [address] [id number] [place] [address] 08 Dec, 2013 [facility] [place] [facility] [address] [id number] [place] [address] Dec, [facility] [place] [facility] [address] [id number] [place] [address] Dec, [facility] [place] [facility] [address] [id number] [place] [address] Dec, [facility] [place] [facility] [address] [id number] [place] [address] Dec, [facility] [place] [facility] [address] [id number] [place] [address] Nov, [facility] [place] [facility] [address] [id number] [place] [address] Nov, [facility] [place] [facility] [address] [id number] [place] [address] Nov, [facility] [place] [facility] [address] [id number] [place] [address] Nov, [facility] [place] [facility] [address] [id number] [place] [address] Nov, [facility] [place] [facility] [address] [id number] [place] [address] Nov, [facility] [place] [facility] [address] [id number] [place] [address] Nov, [facility] [place] [facility] [address] [id number] [place] [address] Nov, [facility] [place] [facility] [address] [id number] [place] [address] Nov, [facility] [facility] [address] [id number] [place] [address] Nov, [facility] [place] [facility] [address] [id number] [place] [address] 9477 Nov, [facility] [place] [facility] [address] [id number] [place] [address]- 8223 Nov, [facility] [place] [facility] [address] [id number] [place] [address]- 0293 Nov, [facility] [place] [facility] [address] [id number] [place] [address] Nov, [facility] [place] [facility] [address] [id number] [place] [address] 2178 Oct, [facility] [place] [facility] [address] [id number] [place] [address]- 5119 Oct, [facility] [place] [facility] [address] [id number] [place] [address]- 0464 Oct, [facility] [place] [facility] [address] [id number] [place] [address] 3209 Oct, [facility] [place] [facility] [address] [id number] [place] [address]- 1697 Oct, [facility] [place] [facility] [address] [id number] [place] [address]- 6872 Oct, [facility] [place] [facility] [address] [id number] [place] [address]- 8397 Oct, [facility] [place] [facility] [address] [id number] [place] [address]- 3521 Oct, [facility] [place] [facility] [address] [id number] [place] [address]- 7287 Oct, [facility] [place] [facility] [address] [id number] [place] [address]- 9299 Oct, [facility] [place] [facility] [address] [id number] [place] [address]- 4393 Oct, [facility] [place] [facility] [address] [id number] [place] [address]- 4710 Oct, [facility] [place] [facility] [address] [id number] [place] [address]- 1522 Oct, 2013 [facility] [place] [facility] [address] [id number] [place] [address]- 4134 Oct, 2013 [facility] [place] [facility] [address] [id number] [place] [address]- 3112 Oct, 2013 [facility] [place] [facility] [address] [id number] [place] [address]- 0395 Oct, 2013 [facility] [place] [facility] [address] [id number] [place] [address]- 2097 Oct, 2013 [facility] [place] [facility] [address] [id number] [place] [address]- 1646 Oct, [facility] [place] [facility] [address] [id number] [place] [address]- 7661 Oct, [facility] [place] [facility] [address] [id number] [place] [address]- 0063 Oct, [facility] [address] [id number] [place] [address]- 4210 Sep, [facility] [place] [facility] [address] [id number] [place] [address]- 1266 Sep, [facility] [address] [id number] [place] [address]- 0684 Sep, [facility] [address] [id number] [place] [address]- 6660 Sep, [facility] [place] [facility] [address] [id number] [place] [address]- 3667 Sep, [facility] [address] [id number] [place] [address]- 9447 Sep, [facility] [address] [id number] [place] [address]- 9240 August, [facility] [place] [facility] [address] [id number] [place] [address]- 0250 August, [facility] [place] [address] [id number] [place] [address]- 1352 Jul, [facility] [place] [address] [id number] [place] [address]- 5159 Jul, [facility] [place] [facility] [address] [id number] [place] [address]- 1904 Jul, [facility] [address] [id number] [place] [address]- 4728 Jul, [facility] [address] [id number] [place] [address]- 6928 Jul, [facility] [place] [address] [id number] [place] [address]- 9589 Jul, [facility] [address] [id number] [place] [address]- 9701 Jul, [facility] [address] [id number] [place] [address]- 9141 Jul, [facility] [address] [id number] [place] [address]- 2683 Jun, [facility] [address] [id number] [place] [address]- 0600 Jun, [facility] [address] [id number] [place] [address]- 0321 Jun, [facility] [address] [id number] [place] [address]- 0914 Jun, [facility] [address] [id number] [place] [address]- 4732 Jun, [facility] [address] [id number] [place] [address]- 9266 May, [facility] [address] [id number] [place] [address]- 0636 May, [facility] [address] [id number] [place] [address]- 4451 May, [facility] [address] [id number] [place] [address]- 7276 May, [facility] [address] [id number] [place] [address] May, 2013 [facility] [address] [id number] [place] [address]- 6816 May, [facility] [address] [id number] [place] [address]- 2546 May, [facility] [address] [id number] [place] [address]- 8996 May, [facility] [address] [facility] [id number] [place] [address]- 5316 May, [facility] [address] [id number] [place] [address]- 4536 May, [facility] [address] [facility] [id number] [place] [address]- 5689 May, [facility] [address] [facility] [id number] [place] [address]- 9958 Apr, [facility] [address] [facility] [id number] [place] [address]- 4863 Apr, [facility] [address] [facility] [id number] [place] [address] 2546 Mar, [facility] [address] [id number] [place] [address]- 2546 Mar, [facility] [address] [facility] [id number] [place] [address]- 6236 Mar, [facility] [address] [facility] [id number] [place] [address] 2546 Mar, [facility] [address] [facility] [id number] [place] [address]- 4775 Mar, [facility] [address] [id number] [place] [address]- 5000 Jan, [facility] [address] [id number] [place] [address]- 8516 Jan, [facility] [address] [id number] [place] [address]- 7821 Jan, [facility] [address] [id number] [place] [address]- 0413 Jan, [facility] [address] [id number] [place] [address]- 2861 Jan, [facility] [address] [id number] [place] [address]- 3831 Jan, [facility] [address] [id number] [place] [address]- 8207 Jan, [facility] [address] [id number], [place] [address]- 0590 Jan, [facility] [address] [id number] [place] [address]- 8786 Jan, [facility] [address] [id number], [place] [address]- 4393 Jan, [facility] [address] [id number], [place] [address]- 2087 Dec, [facility] [address] [id number], [place] [address]- 7607 Oct, [facility] [address] [id number], [place] [address]- 6967 Oct, [facility] [address] [id number], [place] [address]- 6745 Oct, [facility] [address] [id number], [place] [address]- 8875 Oct, [facility] [address] [id number], [place] [address]- 8829 Oct, [facility] [address] [id number] [place] [address]- 2034 Oct, [facility] [address] [id number] [place] [address]- 4848 Sep, [facility] [address] [id number] [place] [address]- 8906 August, [facility] [address] [id number] [place] [address]- 6217 August, [facility] [address] [id number] [place] [address]- 2384 August, [facility] [address] [id number] [place] [address]- 2916 August, [facility] [address] [id number] [place] [address]- 5783 August, [facility] [address] [id number] [place] [address]- 1021 May, [facility] [address] [id number] [place] [address]- 7079 Apr, [facility] [address] [id number] [place] [address]- 5427 Apr, [facility] [address] [id number] [place] [address]- 1250 Apr, [facility] [address] [id number] [place] [address]- 3656 Apr, [facility] [address] [id number] [place] [address]- 3555 Apr, [facility] [address] [place] [id number] Mar, [facility] [address] [id number] [place] [address]- 7325 Mar, [facility] [address] [id number] [place] [address]- 0396 19 Mar, 2012 [facility] [address] [id number] [place] [address]- 9576 19 Mar, 2012 [facility] [address] [id number] [place] [address]- 5196 17 Mar, 2012 [facility] [address] [id number] [place] [address]- 9446 17 Mar, 2012 [facility] [address] [id number] [place] [address]- 4556 13 Mar, 2012 [facility] [address] [id number] [place] [address]- 3306 13 Mar, 2012 [facility] [address] [id number] [place] [address]- 4596 13 Mar, 2012 [facility] [address] [id number] [place] [address]- 8164 13 Mar, 2012 [facility] [address] [id number] [place] [address]- 3154 12 Mar, 2012 [facility] [address] [id number] [place] [address]- 2216 12 Mar, 2012 [facility] [address] [id number] [place] [address]- 5633 10 Mar, 2012 [facility] [address] [id number] [place] [address]- 9356 10 Mar, 2012 [facility] [address] [id number] [place] [address]- 3316 07 Mar, 2012 [facility] [address] [id number] [place] [address]- 2906 07 Mar, 2012 [facility] [address] [id number] [place] [address]- 5796 06 Mar, 2012 [facility] [address] [id number] [place] [address]- 5994 Mar, [facility] [address] [id number] [place] 1845 Mar, [facility] [address] [id number] [place] [address]- 6200 Mar, [facility] [address] [id number] [place] [address]- 0391 Feb, [facility] [address] [id number] [place] [address]- 5128 Feb, [facility] [address] [id number] [place] [address]- 3158 Feb, [facility] [address] [id number] [place] [address]- 6108 Feb, [facility] [address] [facility] [id number] [place] [address]- 6894 Jan, [facility] [address] [id number] [place] [address]- 8799 Jan, [facility] [address] [id number] [place] [address]- 7444 Jan, [facility] [address] [id number] [place] [address]- 6470 Jan, [facility] [address] [facility] [id number], [place] [address]- 7459 Jan, [facility] [address] [id number], [place] [address]- 5666 Jan, [facility] [address] [id number] [place] [address]- 0797 Jan, [facility] [address] [id number] 0843 Jan, [facility] [address] [facility] [id number][place] 2281 Jan, [facility] [address] [id number], [place] [address]- 2137 27 Dec, 2011 [facility] [address] [id number] [place] [address]- 1578 14 Dec, 2011 [facility] [address] [id number] [place] [address]- 4206 12 Dec, 2011 [facility] [address] [id number] [place] [address]- 4066 06 Dec, 2011 [facility] [address] [id number] [place] [address]- 9729 06 Dec, 2011 [facility] [address] [id number] [place] [address]- 9541 Nov, [facility] [address] [id number] [place] [address]- 8524 Nov, [facility] [address] [id number] [place] [address]- 5290 Nov, [facility] [address] [id number] [place] [address]- 8445 Nov, [facility] [address] [id number] [place] [address]- 0704 Nov, [facility] [address] [id number] [place] [address]- 4096 Nov, [facility] [address] [id number] [place] [address]- 6743 Nov, [facility] [address] [id number] [place] [address]- 0254 Nov, [facility] [place] [facility] [address] [id number] [place] [address]- 5422 Nov, [facility] [address] [id number] [place] [address]- 3983 Oct, [facility] [address] [id number] [place] [address]- 4182 Oct, [facility] [place] [address] [id number] [place] [address]- 6270 14 Sep, 2011 [facility] [address] [id number] [place] [address]- 1101 13 Sep, 2011 [facility] [address] [id number] [place] [address]- 8525 05 Sep, 2011 [facility] [address] [id number] [place] [address]- 3401 14 Aug, 2011 [facility] [address] [id number] [place] [address]- 6647 30 Jul, 2011 [facility] [address] [id number] [place] [address]- 9933 27 Jul, 2011 [facility] [address] [id number] [place] [address]- 5473 27 Jul, 2011 [facility] [address] [id number] [place] [address]- 7584 18 Jul, 2011 [facility] [address] [id number] [place] [address]- 3996 16 Jul, 2011 [facility] [facility] [address] [id number] [place] [address]- 3640 16 Jul, 2011 [facility] [address] [id number] [place] [address]- 3782 16 Jul, 2011 [facility] [facility] [address] [id number] [place] [address]- 1064 14 Jul, 2011 [facility] [place] [facility] [address] [id number] [place] [address]- 0373 12 Jul, 2011 [facility] [place] [facility] [address] [id number] [place] 3862 19 Jun, 2011 [facility] [address] [id number] [place] 7985 18 Jun, 2011 [facility] [place] [facility] [address] [id number] [place] [address]- 9673 15 Jun, 2011 [facility] [place] [facility] [address] [id number] [place] [address]- 8154 Jun, [facility] [place] [facility] [address] [id number] [place] [address]- 9620 Jun, [facility] [place] [facility] [address] [id number] [place] [address]- 4760 Jun, [facility] [place] [facility] [address] [id number] [place] [address]- 2643 Jun, [facility] [place] [facility] [address] [id number] [place] [address]- 2914 Jun, [facility] [place] [facility] [address] [id number] [place] [address]- 8193 May, [facility] [place] [facility] [address] [id number] [place] [address]- 2560 May, [facility] [place] [facility] [address] [id number] [place] [address]- 3062 May, [facility] [place] [facility] [address] [id number] [place] [address]- 7511 Apr, [facility] [place] [facility] [address] [id number] [place] [address]- 6065 Apr, [facility] [place] [facility] [address] [id number] [place] [address]- 3548 Apr, [facility] [place] [facility] [address] [id number] [place] [address]- 1039 Mar, [facility] [place] [facility] [address] [id number] [place] [address]- 2926 Mar, [facility] [place] [facility] [address] [id number] [place] [address]- 8475 Mar, [facility] [place] [facility] [address] [id number] [place] [address]- 8665 Mar, [facility] [place] [facility] [address] [id number] [place] [address]- 9294 13 Mar, 2011 [facility] [address] [id number] [place] [address]- 8168 Mar, [facility] [place] [facility] [address] [id number] [place] [address]- 2066 Mar, [facility] [place] [facility] [address] [id number] [place] [address]- 7784 Mar, [facility] [place] [facility] [address] [id number] [place] [address]- 9957 08 Mar, 2011 [facility] [place] [facility] [address] [id number] [place] [address]- 1660 Mar, [facility] [place] [facility] [address] [id number] [place] [address]- 7805 Mar, [facility] [place] [facility] [address] [id number] [place] [address]- 7696 Mar, [facility] [place] [facility] [address] [id number] [place] [address]- 4960 Mar, [facility] [place] [facility] [address] [id number] [place] [address]- 8299 Mar, [facility] [place] [facility] [address] [facility] [id number] [place] [address]- 8741 Feb, [facility] [place] [facility] [address] [id number] [place] [address]- 7041 Feb, [facility] [place] [facility] [address] [id number] [place] [address]- 0585 14 Feb, 2011 [facility] [place] [facility] [address] [id number] [place] [address]- 5484 29 Jan, 2011 [facility] [place] [facility] [address] [id number] [place] [address]- 5881 Jan, [facility] [place] [facility] [address] [id number] [place] [address]- 0571 Oct, [facility] [address] [id number], [place] [address]- 1042 Sep, [facility] [address] [facility] [id number], [place] [address]- 2696 Mar, [facility] [address] [facility] [id number], [place] [address]- 5607 Mar, [facility] [address] [facility] [id number], [place] [address]- 6507 Feb, [facility] [address] [id number], [place] [address]- 3227 Feb, [facility] [address] [facility] [id number][place] 7936 Jan, [facility] [address] [facility] [id number][place] 8769 Jan, [facility] [address] [facility] [id number], [place] [address]- 8862 Mar, [facility] [address] [facility] [id number], [place] [address]- 4849 Feb, [facility] [address] [id number], [place] [address]- 2040 Feb, [facility] [address] [id number], [place] [address]- 2086 Feb, [facility] [address] [facility] [id number], [place] [address]- 6578 Feb, [facility] [address] [facility] [id number][place] 1539 Jan, [facility] [address] [facility] [id number], [place] [address] Dec, [facility] [address] [facility] [id number], [place] [address] Nov, IMMUNIZATIONS No Known Immunizations SOCIAL HISTORY Never Assessed REASON FOR VISIT [facility] Discharge/Med Rec PLAN OF CARE VITAL SIGNS MEDICATIONS Medication Instructions Dosage Frequency Start Date End Date Duration Status Metformin HCl 1000 MG Orally Twice a day 1 tablet with meals 12h Active Cholecalciferol 4000 UNIT Orally Once a day 1 tablet 24h Active Plavix 75 MG Orally Once a day 1 tablet 24h Active Levetiracetam 500 mg Orally Twice a day 1 tablet 12h Active Melatonin 3 MG Orally Once a day 1 tablet at bedtime 24h Active Mylanta 200-200-20 MG/5ML Orally every 4 hrs 30 ml as needed 4h Active Celexa 40 mg Orally Once a day 1 tablet 24h Active Synthroid 175 MCG Orally Once a day 1 tablet on an empty stomach in the morning 24h Active Enalapril Maleate 2.5 MG Orally Once a day 1 tablet 24h Active Remeron 15 MG Orally Once a day 1 tablet at bedtime 24h Active Clonidine HCl 0.2 MG Orally twice a day 1 tablet 12h Active Lactobacillus - Orally 4 times a day 1 tablet 6h Active Aspir-81 81 MG Orally Once a day 1 tablet 24h Active Glimepiride 4 MG Orally Once a day 1 tablet with breakfast or the first main meal of the day 24h Sep, 30 day(s) Active Simvastatin 10 MG Orally Once a day 1 tablet in the evening 24h Active Metoprolol Tartrate 25 MG Orally Twice a day 1 tablet with food 12h Active Aricept 10 mg Orally Once a day 1 tablet at bedtime 24h Dec, 30 day(s) Active Divalproex Sodium 125 MG Orally 4 times a day 2 capsules 6h Active Exelon 9.5 MG/24HR Transdermal Once a day 1 patch to skin 24h Active Cefdinir 300 MG Orally every 12 hrs 1 capsule 12h Oct, Oct, Active RESULTS No Results PROCEDURES No Known procedures INSTRUCTIONS MEDICATIONS ADMINISTERED No Known Medications MEDICAL (GENERAL) HISTORY Type Description Date Hospitalization History [facility] March 2015
--- OUTSIDE RECORDS SUMMARY | 2018-02-25 07:47 | XMS REPORT ---
Author Author STEPHANIE CHRISTIANSEN [facility] Address [address] [place] [address] Care Team Providers Care Land Commissioner Name Role Phone STEPHANIE CHRISTIANSEN Unavailable PROBLEMS Type Condition ICD9-CM Code OMZ48-ZV Code Onset Dates Condition Status SNOMED Code Problem Hyperlipidemia, unspecified hyperlipidemia type E78.5 Active 86639973 Problem Long-term insulin use Z79.4 Active 503310075 Problem Abnormal carotid ultrasound R93.8 Active 808522064 Problem Type 2 diabetes mellitus with complication E11.8 Active 04076206 Problem Positive TB test R76.11 Active 725365752 Problem Vascular dementia with behavior disturbance F01.51 Active 201016849 Problem PVD (peripheral vascular disease) I73.9 Active 812382028 Problem Pain R52 Active 32434233 Problem Other chronic osteomyelitis of left foot M86.672 Active 900978809 Problem Nicotine dependence, unspecified, uncomplicated F17.200 Active 082534886 Problem Peripheral vascular disease due to secondary diabetes E13.51 Active 6954436 Problem Nonintractable epilepsy without status epilepticus, unspecified epilepsy type G40.909 Active 209809433 Problem Recurrent major depressive disorder, remission status unspecified F33.9 Active 82698731 Problem Anxiety F41.9 Active 94862483 Problem Generalized anxiety disorder F41.1 Active 98624187 Problem Vascular dementia F01.50 Active 437155328 Problem Pseudobulbar affect F48.2 Active 27565888 Problem Coronary artery disease involving [place] coronary artery of [place] heart without angina pectoris I25.10 Active 2671195513774 Problem Gastroesophageal reflux disease without esophagitis K21.9 Active 302351059 Problem Cerebrovascular accident (CVA) due to other mechanism I63.8 Active 592859925 Problem Pulmonary emphysema, unspecified emphysema type J43.9 Active 43141492 Problem Neuropathy G62.9 Active 708366616 Problem Depression F32.9 Active 15732720 Problem Essential hypertension I10 Active 00382394 Problem Acquired hypothyroidism E03.9 Active 238299481 ALLERGIES No Information ENCOUNTERS Encounter Location Date Diagnosis [place] [id number] [place] [address] 75397- 9574 Nov, Generalized anxiety disorder F41.1 [place] [id number] [place] [address] 21269- 5564 Oct, Generalized anxiety disorder F41.1 [place] [id number] [place] [address] 35261- 4454 Oct, Generalized anxiety disorder F41.1 [facility] [address] [id number] Oct, Sepsis, due to unspecified organism A41.9 ; Generalized anxiety disorder F41.1 ; Pain R52 and Depression F32.9 [place] [id number] [place] [address] 38790- 1869 Oct, [place] [id number] [place] [address] 98077- 2197 Oct, [place] [id number] [place] [address] 55488- 4269 Sep, Generalized anxiety disorder F41.1 [place] [id number] [place] [address] 11314- 9390 Sep, [place] [id number] [place] [address] 00971- 4564 Sep, Type 2 diabetes mellitus with complication E11.8 [place] [id number] [place] [address] 01184- 1519 August, Generalized anxiety disorder F41.1 [place] [id number] [place] [address] 72080- 2455 August, [facility] [address] [id number] August, Type 2 diabetes mellitus with complication E11.8 ; Vascular dementia with behavior disturbance F01.51 ; Long-term insulin use Z79.4 and Nicotine dependence, unspecified, uncomplicated F17.200 [facility] [address] [address] 37[address] August, Generalized anxiety disorder F41.1 [facility] [address] [address] 3166 Jul, Generalized anxiety disorder F41.1 [facility] [id number] [id number] Jun, Generalized anxiety disorder F41.1 [facility] [id number] [place] [address] [id number] Jun, [facility] [id number] [place] [address] [id number] May, [facility] [id number] [place] [address] 17735- 8456 May, [facility] [id number] [place] [address] [id number] May, Generalized anxiety disorder F41.1 [facility] [address] 9983 Apr, [facility] [address] [facility] [address] [address] [place] [id number] Apr, Other chronic osteomyelitis of left foot M86.672 ; Type 2 diabetes mellitus with complication E11.8 ; Vascular dementia F01.50 ; Long-term insulin use Z79.4 ; PVD (peripheral vascular disease) I73.9 and Nicotine abuse 305.1 [facility] [address] [address] 4950 Apr, [facility] [id number] [place] [address] [id number] Apr, [facility] [id number] [place] [address] [id number]- 1296 Apr, Pain R52 and Generalized anxiety disorder F41.1 [facility] [address] [address]- 5416 Mar, [place] [id number] [place] [address] 13601- 9868 Mar, Pain R52 and Generalized anxiety disorder F41.1 [facility] [address] [place] [id number] Feb, Depression F32.9 ; Type 2 diabetes mellitus with complication E11.8 and Nicotine dependence, unspecified, uncomplicated F17.200 [facility] [id number] [place] [address] 78731- 2212 Feb, Generalized anxiety disorder F41.1 and Pain R52 [facility] [id number] [place] [address] 85291- 9216 Feb, [facility] [address] 48080- 2948 Jan, [facility] [id number] [place] [address] 83943- 3386 Jan, Generalized anxiety disorder F41.1 and Pain R52 [facility] [id number] [place] [address] 56677- 4187 Jan, [facility] [address] [id number] Dec, Generalized anxiety disorder F41.1 and Pain R52 [facility] [address] [place] [id number] Dec, Vascular dementia F01.50 ; Pain of left leg M79.605 ; Pain in right leg M79.604 and Type 2 diabetes mellitus with complication E11.8 [facility] [id number] [place] [address] 18964- 1559 Dec, Pain R52 [facility] [id number] [place] [address] 51282- 5499 Dec, [facility] [id number] [place] [address] 16776- 1638 Nov, [facility] [id number] [place] [address] 30898- 9765 Nov, Pain R52 and Generalized anxiety disorder F41.1 [facility] [address] [place] [id number] Nov, Depression F32.9 ; Vascular dementia with behavior disturbance F01.51 and Anxiety F41.9 [facility] [address] [address]- 9866 Nov, Pain R52 and Generalized anxiety disorder F41.1 [facility] [id number] [place] [address] 24543- 8157 Oct, Generalized anxiety disorder F41.1 [facility] [id number] [place] [address] 13509- 0489 Oct, Pain R52 [facility] [id number] [place] [address] 92519- 5434 Sep, [facility] [address] [place] [id number] Sep, Generalized anxiety disorder F41.1 [facility] [id number] [place] [address] 79887- 3785 Sep, Pain R52 [facility] [id number] [place] [address] 78763- 3928 Sep, Generalized anxiety disorder F41.1 [facility] [address] [place] [address] 23359- 3453 August, [facility] [id number] [place] [address] 55898- 2221 August, [facility] [address] [place] [address] 66596- 7977 August, Pain R52 [facility] [id number] [address]- 4096 August, Generalized anxiety disorder F41.1 [facility] [id number] [place] [address] [id number] August, Generalized anxiety disorder F41.1 [facility] [id number] [place] [address] 63121- 7456 17 Jul, 2016 Pain R52 [facility] [id number] [place] [address] 83365- 0344 Jul, [facility] [address] [id number] Jul, [facility] [address] 23429- 4337 Jun, [facility] [address] [id number] Jun, Depression F32.9 [facility] [address] 24092- 4658 Jun, Pain R52 [facility] [address] 78424- 4330 Jun, [facility] [address] [place] [id number] Jun, Vascular dementia F01.50 and Depression F32.9 [facility] [id number] [place] [address] 75105- 3246 May, Pain R52 [facility] [address] 84803- 0281 15 May, 2016 [facility] [id number] [place] [address] 00772- 4204 10 May, 2016 Pseudobulbar affect F48.2 [facility] [id number] [place] [address] 49017- 3794 09 May, 2016 [facility] [id number] [place] [address] 73771- 4316 May, PVD (peripheral vascular disease) I73.9 [facility] [id number] [place] [address] 59943- 8817 08 May, 2016 Vascular dementia with behavior disturbance F01.51 [facility] [address] 51538- 4397 May, Vascular dementia with behavior disturbance F01.51 [facility] [id number] [place] [address] 58610- 1457 Apr, [facility] [id number] [place] [address] 47921- 5857 Apr, Pain R52 [facility] [address] [place] [id number] Apr, Generalized anxiety disorder F41.1 ; PVD (peripheral vascular disease) I73.9 and Type 2 diabetes mellitus with complication E11.8 [facility] [address] [place] [address] 82747- 1863 Apr, Vascular dementia with behavior disturbance F01.51 [facility] [id number] [place] [address] 33149- 1347 Apr, [facility] [id number] [place] [address] 55379- 5292 Apr, Vascular dementia with behavior disturbance F01.51 [facility] [id number] [place] [address] 69071- 7659 Apr, [facility] [id number] [place] [address] [id number] Mar, [facility] [id number] [place] [address] 39679- 6459 Mar, Type 2 diabetes mellitus with complication E11.8 ; Vascular dementia with behavior disturbance F01.51 and Depression F32.9 [facility] [address] [address]- 7725 Mar, [facility] [id number] [place] [address] 22832- 7235 Feb, [facility] [id number] [place] [address] 66834- 5055 Feb, Viral illness B34.9 [facility] [id number] [place] [address] 17679- 9040 Jan, Diabetes 250.00 [facility] [id number] [address]- 5387 Jan, [facility] [id number] [place] [address] 39478- 8964 Jan, [facility] [address] [address]- 1321 Jan, [facility] [address] [place] [id number] Jan, Vascular dementia with behavior disturbance F01.51 and Type 2 diabetes mellitus with complication E11.8 [facility] [id number] [place] [address] 02529- 3859 Jan, Pain R52 [facility] [id number] [place] [address] 72793- 5685 Jan, Pain R52 [facility] [id number] [place] [address] 53789- 1412 Dec, [facility] [id number] [place] [address] 06716- 8567 Nov, [facility] [address] [place] [id number] Nov, Type 2 diabetes mellitus with complication E11.8 [facility] [address] [address]- 5524 Nov, [facility] [address] [address]- 9864 Oct, [facility] [address] [address]- 7255 Oct, [facility] [id number] [place] [address] 28118- 1346 Oct, Vascular dementia with behavior disturbance F01.51 and Type 2 diabetes mellitus with complication E11.8 [facility] [address] [address]- 5448 August, Type 2 diabetes mellitus with complication E11.8 and Vascular dementia with behavior disturbance F01.51 [facility] [address] [address]- 6089 August, Vascular dementia F01.50 [facility] [address] [address] 6386 August, Vascular dementia with behavior disturbance F01.51 [facility] [id number] [place] [address] 79260- 5352 Jul, Vascular dementia with behavior disturbance F01.51 [facility] [id number] [place] [address] 89727- 3161 Jun, Vascular dementia F01.50 [facility] [id number] [place] [address] 18168- 5992 Jun, Type 2 diabetes mellitus with complication E11.8 ; Long- term insulin use Z79.4 and Vascular dementia with behavior disturbance F01.51 [facility] [id number] [place] [address] 87991- 4614 Jun, Vascular dementia with behavior disturbance F01.51 [facility] [id number] [place] [address] 60160- 4126 Jun, Vascular dementia F01.50 [facility] [address] [address]- 5281 Apr, [facility] [id number] [place] [address] 30368- 1989 Apr, [facility] [id number] [place] [address] 33900- 9049 Apr, [facility] [id number] [place] [address] 17110- 7290 Apr, Type 2 diabetes mellitus with complication E11.8 ; Depression F32.9 and Long-term insulin use Z79.4 [facility] [address] [place] [address] 95018- 2675 Mar, [facility] [address] [place] [id number] Mar, Depression F32.9 ; Type 2 diabetes mellitus with complication E11.8 and Long-term insulin use Z79.4 [facility] [address] [address]- 4436 Feb, [facility] [address] 9801 Feb, Hyperthyroidism E05.90 [facility] [id number] [place] [address] 38440- 2380 Feb, Hyperthyroidism E05.90 [facility] [id number] [place] [address] 56408- 8956 Feb, [facility] [id number] [address]- 4454 Jan, [facility] [id number] [place] [address] 64639- 8007 Dec, Nicotine addiction 305.1 [facility] [address] [address]- 0252 Oct, Nicotine abuse 305.1 [facility] [id number] [place] [address] 28985- 5908 Oct, [facility] [address] [address]- 8599 August, [facility] [address] [place] [id number] August, History of drug abuse 305.93 and Diabetes 250.00 [facility] [address] [address]- 0902 Jul, [facility] [address] 8316 Jul, [facility] [address] 9589 Jun, [facility] [address] [place] [address]- 1419 Jun, [facility] [address] [id number] [place] [address]- 4302 Jun, [facility] [place] [facility] [address] [id number] [place] [address]- 1592 Jun, [facility] [address] [id number] [place] [address]- 0641 Jun, [facility] [address] [id number] [place] [address]- 3097 Jun, [facility] [address] [id number] [place] [address]- 7855 May, [facility] [address] [id number] [place] [address]- 7230 May, [facility] [address] [id number] [place] [address]- 0724 May, [facility] [address] [id number] [place] [address]- 6666 May, [facility] [address] [id number] [place] [address]- 6918 May, [facility] [address] [id number] [place] [address]- 3836 Apr, [facility] [address] [facility] [id number] [place] [address]- 7904 Apr, [facility] [address] [place] [id number] Apr, [facility] [address] [id number] [place] [address]- 3168 Apr, [facility] [address] [facility] [id number] [place] [address]- 1977 Apr, [facility] [address] [facility] [id number] [place] [address]- 3366 Apr, [facility] [address] [id number] [place] [address]- 7401 Apr, [facility] [place] [facility] [address] [id number] [place] [address]- 4314 Apr, [facility] [address] [id number] [place] [address]- 6106 Mar, [facility] [place] [facility] [address] [id number] [place] [address]- 5999 Mar, [facility] [address] [id number] [place] [address]- 0917 Mar, [facility] [place] [facility] [address] [id number] [place] [address]- 9831 Mar, [facility] [address] [id number] [place] [address]- 5555 Mar, [facility] [address] [id number] [place] [address]- 9935 Mar, [facility] [place] [facility] [address] [id number] [place] [address]- 0002 Mar, [facility] [place] [facility] [address] [id number] [place] [address]- 2434 Mar, [facility] [place] [facility] [address] [id number] [place] [address]- 8757 Feb, [facility] [place] [facility] [address] [id number] [address]- 4546 Feb, [facility] [place] [facility] [address] [id number] [place] [address]- 7764 Feb, [facility] [place] [facility] [address] [id number] [place] [address]- 6276 Feb, [facility] [place] [facility] [address] [facility] [id number] [address]- 2078 Feb, [place] [address] [place] [id number] Feb, [facility] [place] [facility] [address] [id number] [place] [address]- 0050 Feb, [facility] [place] [facility] [address] [id number] [place] [address]- 1540 Feb, [facility] [place] [facility] [address] [id number] [place] [address]- 3824 Feb, [facility] [place] [facility] [address] [id number] [place] [address]- 6954 Feb, [facility] [place] [facility] [address] [id number] [place] [address]- 0725 Jan, [facility] [place] [facility] [address] [id number] [place] [address]- 1768 30 Jan, 2014 [facility] [place] [facility] [address] [id number] [place] [address]- 5813 17 Jan, 2014 [facility] [place] [facility] [address] [id number] [address]- 9378 17 Jan, 2014 [facility] [place] [facility] [address] [id number] [place] [address]- 3892 16 Jan, 2014 [facility] [place] [facility] [address] [id number] [address]- 7943 16 Jan, 2014 [facility] [place] [facility] [address] [id number] [address]- 0511 15 Jan, 2014 [facility] [place] [facility] [address] [id number] [address]- 5782 13 Jan, 2014 [facility] [place] [facility] [address] [id number] [address]- 2580 13 Jan, 2014 [facility] [place] [facility] [address] [id number] [address]- 6344 13 Jan, 2014 [facility] [place] [facility] [address] [id number] [address]- 8918 13 Jan, 2014 [facility] [place] [facility] [address] [id number] [place] [address]- 8499 09 Jan, 2013 [facility] [place] [facility] [address] [id number] [place] [address]- 4283 Jan, 2013 [facility] [place] [facility] [address] [id number] [place] [address] Jan, 2013 [facility] [place] [facility] [address] [id number] [place] [address] Jan, 2013 [facility] [place] [facility] [address] [id number] [place] [address] Jan, 2013 [facility] [place] [facility] [address] [id number] [place] [address] Jan, 2013 [facility] [place] [facility] [address] [id number] [place] [address] Dec, 2013 [facility] [place] [facility] [address] [id number] [place] [address] 19 Dec, 2013 [facility] [place] [facility] [address] [id number] [place] [address] 11 Sep, 2013 [facility] [place] [facility] [address] [id number] [place] [address] 11 Sep, 2013 [facility] [place] [facility] [address] [id number] [place] [address] Sep, 2013 [facility] [place] [facility] [address] [id number] [place] [address] 09 Sep, 2013 [facility] [place] [facility] [address] [id number] [place] [address] 08 Sep, 2013 [facility] [place] [facility] [address] [id number] [place] [address] 08 Sep, 2013 [facility] [place] [facility] [address] [id number] [place] [address] 08 Sep, 2013 [facility] [place] [facility] [address] [id number] [place] [address] Dec, [facility] [place] [facility] [address] [id number] [place] [address] Dec, 2013 [facility] [place] [facility] [address] [id number] [place] [address] Dec, [facility] [place] [facility] [address] [id number] [place] [address] Dec, [facility] [place] [facility] [address] [id number] [place] [address] Dec, [facility] [place] [facility] [address] [id number] [place] [address] Nov, [facility] [place] [facility] [address] [id number] [place] [address] Nov, [facility] [place] [facility] [address] [id number] [place] [address] Nov, [facility] [place] [facility] [address] [id number] [place] [address] Nov, [facility] [place] [facility] [address] [id number] [place] [address] Nov, [facility] [place] [facility] [address] [id number] [place] [address] Nov, [facility] [place] [facility] [address] [id number] [place] [address] 8120 Nov, [facility] [place] [facility] [address] [id number] [place] [address] 7770 Nov, [facility] [place] [facility] [address] [id number] [place] [address] 8255 Nov, [facility] [place] [facility] [address] [id number] [place] [address] 9622 Nov, [facility] [place] [facility] [address] [id number] [place] [address]- 8853 Nov, [facility] [place] [facility] [address] [id number] [place] [address] 4944 Nov, [facility] [place] [facility] [address] [id number] [place] [address] 1625 Nov, [facility] [place] [facility] [address] [id number] [place] [address] 6507 Nov, [facility] [place] [facility] [address] [id number] [place] [address] 9111 Oct, [facility] [place] [facility] [address] [id number] [place] [address] 7789 Oct, [facility] [place] [facility] [address] [id number] [place] [address] 0691 Oct, [facility] [place] [facility] [address] [id number] [place] [address]- 4891 Oct, [facility] [place] [facility] [address] [id number] [place] [address]- 9723 Oct, [facility] [place] [facility] [address] [id number] [place] [address]- 3433 Oct, [facility] [place] [facility] [address] [id number] [place] [address]- 2776 Oct, [facility] [place] [facility] [address] [id number] [place] [address]- 4303 Oct, [facility] [place] [facility] [address] [id number] [place] [address]- 2990 Oct, [facility] [place] [facility] [address] [id number] [place] [address]- 1772 Oct, [facility] [place] [facility] [address] [id number] [place] [address]- 8488 Oct, [facility] [place] [facility] [address] [id number] [place] [address]- 5774 Oct, [facility] [place] [facility] [address] [id number] [place] [address]- 0555 Oct, [facility] [place] [facility] [address] [id number] [place] [address]- 8099 Oct, 2013 [facility] [place] [facility] [address] [id number] [place] [address]- 1058 Oct, 2013 [facility] [place] [facility] [address] [id number] [place] [address]- 3816 Oct, 2013 [facility] [place] [facility] [address] [id number] [place] [address]- 9220 Oct, 2013 [facility] [place] [facility] [address] [id number] [place] [address]- 4719 Oct, 2013 [facility] [place] [facility] [address] [id number] [place] [address]- 5047 Oct, [facility] [place] [facility] [address] [id number] [place] [address]- 2454 Oct, [facility] [place] [facility] [address] [id number] [place] [address]- 6444 Sep, [facility] [place] [facility] [address] [id number] [place] [address]- 0846 Sep, [facility] [place] [facility] [address] [id number] [place] [address]- 2920 Sep, [facility] [place] [facility] [address] [id number] [place] [address]- 8666 Sep, [facility] [place] [facility] [address] [id number] [place] [address]- 9792 Sep, [facility] [place] [facility] [address] [id number] [place] [address]- 2508 Sep, [facility] [place] [facility] [address] [id number] [place] [address]- 8591 August, [facility] [place] [facility] [address] [id number] [place] [address]- 2856 August, [facility] [place] [facility] [address] [id number] [place] [address]- 1443 Jul, [facility] [place] [facility] [address] [id number] [place] [address]- 8432 Jul, [facility] [place] [facility] [address] [id number] [place] [address]- 9610 Jul, [facility] [place] [facility] [address] [id number] [place] [address]- 2466 Jul, [facility] [place] [facility] [address] [id number] [place] [address]- 6844 Jul, [facility] [place] [facility] [address] [id number] [place] [address]- 4734 Jul, [facility] [place] [facility] [address] [id number] [place] [address]- 0611 Jul, [facility] [place] [facility] [address] [id number] [place] [address]- 7874 Jul, [facility] [place] [facility] [address] [id number] [place] [address]- 6330 Jun, [facility] [place] [facility] [address] [id number] [place] [address]- 5050 Jun, [facility] [place] [facility] [address] [id number] [place] [address]- 0294 Jun, [facility] [place] [facility] [address] [id number] [place] [address]- 0576 Jun, [facility] [place] [facility] [address] [id number] [place] [address]- 4809 Jun, [facility] [place] [facility] [address] [id number] [place] [address]- 2551 May, [facility] [place] [facility] [address] [id number] [place] [address]- 2231 May, [facility] [place] [facility] [address] [id number] [place] [address]- 9881 May, [facility] [place] [facility] [address] [id number] [place] [address]- 4526 May, [facility] [place] [facility] [address] [id number] [place] [address] 2546 May, [facility] [place] [facility] [address] [id number] [place] [address] 2546 May, [facility] [place] [facility] [address] [id number] [place] [address] 2546 May, 2013 [facility] [place] [facility] [address] [id number] [place] [address] 2546 May, [facility] [place] [facility] [address] [id number] [place] [address]- 5636 May, [facility] [place] [facility] [address] [facility] [id number] [place] [address] 2546 May, [facility] [place] [facility] [address] [facility] [id number] [place] [address]- 2548 May, [facility] [place] [facility] [address] [facility] [id number] [place] [address]- 3714 Apr, [facility] [place] [facility] [address] [facility] [id number] [place] [address] 2549 Apr, [facility] [place] [facility] [address] [facility] [id number] [place] [address] 2546 Mar, [facility] [place] [facility] [address] [facility] [id number] [place] [address] 2546 Mar, [facility] [place] [facility] [address] [id number] [place] [address] 2546 Mar, [facility] [place] [facility] [address] [facility] [id number] [place] [address] 2546 Mar, [facility] [place] [facility] [address] [facility] [id number] [place] [address] 2546 Mar, [facility] [place] [facility] [address] [facility] [id number] [place] [address]- 4616 Jan, [facility] [place] [facility] [address] [id number] [place] [address]- 3498 Jan, [facility] [place] [facility] [address] [id number] [place] [address]- 4195 Jan, [facility] [place] [facility] [address] [id number] [place] [address]- 7602 Jan, [facility] [place] [facility] [address] [id number] [place] [address]- 1118 Jan, [facility] [place] [facility] [address] [id number] [place] [address]- 2924 Jan, [facility] [place] [facility] [address] [id number] [place] [address]- 4028 Jan, [facility] [place] [facility] [address] [id number] [place] [address]- 9750 Jan, [facility] [place] [facility] [address] [id number] [place] [address]- 1454 Jan, [facility] [place] [facility] [address] [id number] [place] [address]- 8385 Jan, [facility] [place] [facility] [address] [id number] [place] [address]- 9371 Dec, [facility] [place] [facility] [address] [id number] [address]- 8441 Oct, [facility] [place] [facility] [address] [id number] [place] [address]- 5294 Oct, [facility] [place] [facility] [address] [id number] [place] [address]- 6382 Oct, [facility] [place] [facility] [address] [id number] [place] [address]- 7299 Oct, [facility] [place] [facility] [address] [id number] [place] [address]- 8243 Oct, [facility] [place] [facility] [address] [id number] [place] [address]- 7470 Oct, [facility] [address] [id number] [place] [address]- 4744 Sep, [facility] [address] [id number] [place] [address]- 3340 August, [facility] [address] [id number] [place] [address]- 0570 August, [facility] [address] [id number] [place] [address]- 5423 August, [facility] [address] [id number] [place] [address]- 7073 August, [facility] [address] [id number] [place] [address]- 2906 August, [facility] [address] [id number] [place] [address]- 2363 May, [facility] [address] [id number] [place] [address]- 6339 Apr, [facility] [address] [id number] [place] [address]- 0889 Apr, [facility] [address] [id number] [place] [address]- 3019 Apr, [facility] [address] [id number] [place] [address]- 4672 Apr, [facility] [address] [id number] [place] [address]- 9196 Apr, [facility] [address] [place] [id number] Mar, [facility] [address] [id number] [place] [address]- 7727 Mar, [facility] [address] [id number] [place] [address]- 9468 Mar, [facility] [address] [id number] [place] [address]- 8543 19 Mar, 2012 [facility] [address] [id number] [place] [address]- 9376 17 Mar, 2012 [facility] [place] [facility] [address] [id number] [place] [address]- 2606 17 Mar, 2012 [facility] [address] [id number] [place] [address]- 2276 13 Mar, 2012 [facility] [place] [facility] [address] [id number] [place] [address]- 7926 13 Mar, 2012 [facility] [address] [id number] [place] [address]- 9926 [address] [facility] [place] [facility] [address] [id number] [place] [address]- 9109 13 Mar, 2012 [facility] [address] [id number] [place] [address]- 6340 12 Mar, 2012 [facility] [address] [id number] [place] [address]- 8292 12 Mar, 2012 [facility] [place] [facility] [address] [id number] [place] [address]- 3516 Mar, [facility] [address] [id number] [place] [address]- 0642 [address], [address] [facility] [place] [facility] [address] [id number] [place] [address]- 3296 07 Mar, 2012 [facility] [place] [facility] [address] [id number] [place] [address]- 0256 07 Mar, 2012 [facility] [place] [facility] [address] [id number] [place] [address]- 9426 06 Mar, 2012 [facility] [place] [facility] [address] [id number] [place] [address]- 7316 06 Mar, 2012 [facility] [place] [facility] [address] [id number] [place] [address]- 3898 Mar, [facility] [place] [facility] [address] [id number] [place] [address]- 1544 Mar, [facility] [place] [facility] [address] [id number] [place] [address]- 3898 Feb, [facility] [place] [facility] [address] [id number] [place] [address]- 3912 Feb, [facility] [place] [facility] [address] [id number] [place] [address]- 0373 Feb, [facility] [place] [facility] [address] [id number] [place] [address]- 8787 Feb, [facility] [place] [facility] [address] [id number] [place] [address]- 3578 Jan, [facility] [place] [facility] [address] [id number] [place] [address]- 4640 Jan, [facility] [place] [facility] [address] [id number] [address]- 5328 Jan, [facility] [place] [facility] [address] [id number] [place] [address]- 6101 Jan, [facility] [place] [facility] [address] [facility] [id number] [place] [address]- 7925 Jan, [facility] [place] [facility] [address] [id number] [place] [address]- 5470 Jan, [facility] [place] [facility] [address] [id number] [place] [address]- 4379 Jan, [facility] [place] [facility] [address] [id number] [place] [address]- 0222 Jan, [facility] [place] [facility] [address] [id number] [place] [address]- 8593 Jan, [facility] [place] [facility] [address] [facility] [id number] [place] [address]- 3153 Dec, [facility] [place] [facility] [address] [id number] [place] [address]- 6296 14 Dec, 2011 [facility] [place] [facility] [address] [id number] [place] [address]- 0804 12 Dec, 2011 [facility] [place] [facility] [address] [id number] [place] [address]- 7246 06 Dec, 2011 [facility] [place] [facility] [address] [id number] [place] [address]- 0136 06 Dec, 2011 [facility] [place] [facility] [address] [id number] [place] [address]- 5882 Nov, [facility] [place] [facility] [address] [id number] [place] [address]- 1896 Nov, [facility] [place] [facility] [address] [id number] [place] [address]- 8622 Nov, [facility] [place] [facility] [address] [id number] [place] [address]- 1856 Nov, [facility] [place] [facility] [address] [id number] [place] [address]- 2969 Nov, [facility] [place] [facility] [address] [id number] [place] [address]- 1581 Nov, [facility] [place] [facility] [address] [id number] [place] [address]- 1974 Nov, [facility] [place] [facility] [address] [id number] [place] [address]- 0491 Nov, [facility] [place] [facility] [address] [id number] [place] [address]- 4618 Nov, [facility] [place] [facility] [address] [id number] [place] [address]- 3283 Oct, [facility] [place] [facility] [address] [id number] [place] [address]- 5331 Oct, [facility] [place] [facility] [address] [id number] [place] [address]- 3532 14 Sep, 2011 [facility] [place] [facility] [address] [id number] [place] [address]- 9855 13 Sep, 2011 [facility] [place] [facility] [address] [id number] [place] [address]- 8120 05 Sep, 2011 [facility] [place] [facility] [address] [id number] [place] [address]- 1478 14 Aug, 2011 [facility] [place] [facility] [address] [id number] [place] [address]- 9392 30 Jul, 2011 [facility] [place] [facility] [address] [id number] [place] [address]- 3042 27 Jul, 2011 [facility] [place] [facility] [address] [id number] [place] [address]- 1251 27 Jul, 2011 [facility] [place] [facility] [address] [id number] [place] [address]- 4505 18 Jul, 2011 [facility] [place] [facility] [address] [id number] [place] [address]- 3528 16 Jul, 2011 [facility] [place] [facility] [address] [id number] [place] [address]- 2335 16 Jul, 2011 [facility] [place] [facility] [address] [id number] [place] [address]- 6749 16 Jul, 2011 [facility] [place] [facility] [address] [id number] [place] [address]- 2213 14 Jul, 2011 [facility] [place] [facility] [address] [id number] [place] [address]- 7475 12 Jul, 2011 [facility] [place] [facility] [address] [id number] [place] [address]- 8764 19 Jun, 2011 [facility] [place] [facility] [address] [id number] [place] [address]- 3755 18 Jun, 2011 [facility] [place] [facility] [address] [id number] [place] [address]- 9833 15 Jun, 2011 [facility] [place] [facility] [address] [id number] [place] [address]- 2307 Jun, [facility] [address] [id number] [place] [address]- 0070 Jun, [facility] [place] [facility] [address] [id number] [place] [address]- 1979 Jun, [facility] [place] [facility] [address] [id number] [place] [address]- 2602 Jun, [facility] [place] [facility] [address] [id number] [place] [address]- 3119 Jun, [facility] [place] [facility] [address] [id number] [place] [address]- 7534 May, [facility] [place] [facility] [address] [id number] [place] [address]- 3386 May, [facility] [address] [id number] [place] [address]- 4797 May, [facility] [place] [facility] [address] [id number] [place] [address]- 8819 Apr, [facility] [address] [id number] [place] [address]- 1196 Apr, [facility] [place] [facility] [address] [id number] [place] [address]- 3531 Apr, [facility] [address] [id number] [place] [address]- 1382 Mar, [facility] [place] [facility] [address] [id number] [place] [address]- 7665 Mar, [facility] [place] [facility] [address] [id number] [place] [address]- 6996 15 Mar, 2011 [facility] [place] [facility] [address] [id number] [place] [address]- 4178 13 Mar, 2011 [facility] [place] [facility] [address] [id number] [place] [address]- 1201 Mar, [facility] [place] [facility] [address] [id number] [place] [address]- 5130 12 Mar, 2011 [facility] [address] [id number] [place] [address]- 1646 Mar, [facility] [place] [facility] [address] [id number] [place] [address]- 7485 Mar, [facility] [address] [id number] [place] [address]- 2471 08 Mar, 2011 [facility] [place] [facility] [address] [id number] [place] [address]- 8952 Mar, [facility] [address] [id number] [place] [address]- 5847 Mar, [facility] [address] [id number] [place] [address]- 7589 Mar, [facility] [place] [facility] [address] [id number] [place] [address]- 0113 Mar, [facility] [address] [id number] [place] [address]- 7783 Mar, [facility] [place] [facility] [address] [id number] [place] [address]- 1488 Feb, [facility] [address] [id number] [place] [address]- 0389 Feb, [facility] [place] [facility] [address] [id number] [place] [address]- 6672 Feb, [facility] [place] [facility] [address] [id number] [place] [address]- 9480 Jan, [facility] [place] [facility] [address] [id number] [place] [address]- 2928 Jan, [facility] [place] [facility] [address] [id number] [place] [address]- 5416 Oct, [facility] [place] [facility] [address] [id number] [place] [address] Sep, [facility] [address] [facility] [id number] [address] Mar, [facility] [address] [facility] [id number] [place] [address] Mar, [facility] [address] [facility] [id number] [address] Feb, [facility] [address] [facility] [id number] [address] Feb, [facility] [address] [facility] [id number] [address] [address] Jan, [facility] [address] [facility] [id number] [place] [address] Jan, [facility] [address] [facility] [id number] [place] [address] Mar, [facility] [address] [facility] [id number] [address] Feb, [facility] [address] [facility] [id number] [place] [address] Feb, [facility] [address] [facility] [id number] [place] [address] Feb, [facility] [address] [facility] [id number] [place] [address] Feb, [facility] [address] [facility] [id number] [address] Jan, [facility] [address] [facility] [id number] [address] Dec, [facility] [address] [facility] [id number] [address] Nov, IMMUNIZATIONS No Known Immunizations SOCIAL HISTORY [...] (GENERAL) HISTORY Type Description Date Hospitalization History [facility] March 2015
--- OUTSIDE RECORDS SUMMARY | 2018-02-25 07:48 | XMS REPORT ---
Author Author STEPHANIE CHRISTIANSEN [facility] Address [address] [place] [address] Care Team Providers Care Area Operations Director Name Role Phone STEPHANIE CHRISTIANSEN Unavailable PROBLEMS Type Condition ICD9-CM Code IJO36-GK Code Onset Dates Condition Status SNOMED Code Problem Hyperlipidemia, unspecified hyperlipidemia type E78.5 Active 02309891 Problem Long-term insulin use Z79.4 Active 915852242 Problem Abnormal carotid ultrasound R93.8 Active 000789581 Problem Type 2 diabetes mellitus with complication E11.8 Active 29504452 Problem Positive TB test R76.11 Active 295117920 Problem Vascular dementia with behavior disturbance F01.51 Active 880281845 Problem PVD (peripheral vascular disease) I73.9 Active 246250163 Problem Pain R52 Active 84346984 Problem Other chronic osteomyelitis of left foot M86.672 Active 791453994 Problem Nicotine dependence, unspecified, uncomplicated F17.200 Active 017543736 Problem Peripheral vascular disease due to secondary diabetes E13.51 Active 6525461 Problem Nonintractable epilepsy without status epilepticus, unspecified epilepsy type G40.909 Active 436913121 Problem Recurrent major depressive disorder, remission status unspecified F33.9 Active 09844092 Problem Anxiety F41.9 Active 10415133 Problem Generalized anxiety disorder F41.1 Active 88514201 Problem Vascular dementia F01.50 Active 058861446 Problem Pseudobulbar affect F48.2 Active 61641422 Problem Coronary artery disease involving [place] coronary artery of [place] heart without angina pectoris I25.10 Active 5099527920607 Problem Gastroesophageal reflux disease without esophagitis K21.9 Active 426189566 Problem Cerebrovascular accident (CVA) due to other mechanism I63.8 Active 711092437 Problem Pulmonary emphysema, unspecified emphysema type J43.9 Active 52288788 Problem Neuropathy G62.9 Active 708199180 Problem Depression F32.9 Active 14941607 Problem Essential hypertension I10 Active 82301716 Problem Acquired hypothyroidism E03.9 Active 956317934 ALLERGIES No Information ENCOUNTERS Encounter Location Date Diagnosis [place] [id number] [place] [address] 79749- 5263 Nov, Generalized anxiety disorder F41.1 [place] [id number] [place] [address] 06884- 6894 Oct, Generalized anxiety disorder F41.1 [place] [id number] [place] [address] 66583- 9568 Oct, Generalized anxiety disorder F41.1 [facility] [address] [id number] Oct, Sepsis, due to unspecified organism A41.9 ; Generalized anxiety disorder F41.1 ; Pain R52 and Depression F32.9 [place] [id number] [place] [address] 05584- 6686 Oct, [place] [id number] [place] [address] 26287- 5873 Oct, [place] [id number] [place] [address] 83360- 0530 Sep, Generalized anxiety disorder F41.1 [place] [id number] [place] [address] 41819- 8271 Sep, [place] [id number] [place] [address] 25130- 5647 Sep, Type 2 diabetes mellitus with complication E11.8 [place] [id number] [place] [address] 28762- 5017 August, Generalized anxiety disorder F41.1 [place] [id number] [place] [address] 36737- 9620 August, [facility] [address] [id number] August, Type 2 diabetes mellitus with complication E11.8 ; Vascular dementia with behavior disturbance F01.51 ; Long-term insulin use Z79.4 and Nicotine dependence, unspecified, uncomplicated F17.200 [facility] [address] [address] 45[address] August, Generalized anxiety disorder F41.1 [facility] [address] [address]- 2806 Jul, Generalized anxiety disorder F41.1 [facility] [id number] [id number] Jun, Generalized anxiety disorder F41.1 [facility] [id number] [place] [address] [id number] Jun, [facility] [id number] [place] [address] [id number] May, [facility] [address] [place] [address] 76562- 8926 May, [facility] [id number] [place] [address] [id number] May, Generalized anxiety disorder F41.1 [facility] [address] Apr, [facility] [address] [place] [id number] Apr, Other chronic osteomyelitis of left foot M86.672 ; Type 2 diabetes mellitus with complication E11.8 ; Vascular dementia F01.50 ; Long-term insulin use Z79.4 ; PVD (peripheral vascular disease) I73.9 and Nicotine abuse 305.1 [facility] [address] [address] 0776 Apr, [facility] [id number] [place] [address] [id number] Apr, [facility] [address] [place] [address] [id number]- 8286 Apr, Pain R52 and Generalized anxiety disorder F41.1 [facility] [address] [address]- 9501 Mar, [place] [id number] [place] [address] 50264- 9081 Mar, Pain R52 and Generalized anxiety disorder F41.1 [facility] [address] [place] [id number] Feb, Depression F32.9 ; Type 2 diabetes mellitus with complication E11.8 and Nicotine dependence, unspecified, uncomplicated F17.200 [facility] [id number] [place] [address] 96995- 2061 Feb, Generalized anxiety disorder F41.1 and Pain R52 [facility] [id number] [place] [address] 51802- 9392 Feb, [facility] [address] 32519- 9125 Jan, [facility] [id number] [place] [address] 62802- 7201 Jan, Generalized anxiety disorder F41.1 and Pain R52 [facility] [id number] [place] [address] 52464- 3790 Jan, [facility] [address] [id number] Dec, Generalized anxiety disorder F41.1 and Pain R52 [facility] [address] [place] [id number] Dec, Vascular dementia F01.50 ; Pain of left leg M79.605 ; Pain in right leg M79.604 and Type 2 diabetes mellitus with complication E11.8 [facility] [id number] [place] [address] 16501- 1513 Dec, Pain R52 [facility] [id number] [place] [address] 77194- 6795 Dec, [facility] [id number] [place] [address] 18579- 2691 Nov, [facility] [id number] [place] [address] 80326- 2304 Nov, Pain R52 and Generalized anxiety disorder F41.1 [facility] [address] [place] [id number] Nov, Depression F32.9 ; Vascular dementia with behavior disturbance F01.51 and Anxiety F41.9 [facility] [address] [address]- 4736 Nov, Pain R52 and Generalized anxiety disorder F41.1 [facility] [id number] [place] [address] 48756- 1236 Oct, Generalized anxiety disorder F41.1 [facility] [id number] [place] [address] 50287- 5806 Oct, Pain R52 [facility] [id number] [place] [address] 65378- 9596 Sep, [facility] [address] [place] [id number] Sep, Generalized anxiety disorder F41.1 [facility] [id number] [place] [address] 43513- 7486 Sep, Pain R52 [facility] [id number] [place] [address] 03243- 7914 Sep, Generalized anxiety disorder F41.1 [facility] [address] [place] [address] 77339- 9982 August, [facility] [id number] [place] [address] 54515- 9508 August, [facility] [address] [place] [address] 01458- 0139 August, Pain R52 [facility] [id number] [address]- 3932 August, Generalized anxiety disorder F41.1 [facility] [id number] [place] [address] [id number] August, Generalized anxiety disorder F41.1 [facility] [id number] [place] [address] 30257- 7840 17 Jul, 2016 Pain R52 [facility] [id number] [place] [address] 78118- 0298 Jul, [facility] [address] [id number] Jul, [facility] [address] 77007- 2400 Jun, [facility] [address] [id number] Jun, Depression F32.9 [facility] [address] 91043- 5249 Jun, Pain R52 [facility] [address] 60979- 2766 Jun, [facility] [address] [place] [id number] Jun, Vascular dementia F01.50 and Depression F32.9 [facility] [id number] [place] [address] 57654- 1104 May, Pain R52 [facility] [address] 10545- 9234 15 May, 2016 [facility] [id number] [place] [address] 04157- 7254 10 May, 2016 Pseudobulbar affect F48.2 [facility] [id number] [place] [address] 79504- 9804 09 May, 2016 [facility] [id number] [place] [address] 54601- 9762 May, PVD (peripheral vascular disease) I73.9 [facility] [id number] [place] [address] 50076- 4313 08 May, 2016 Vascular dementia with behavior disturbance F01.51 [facility] [address] 12834- 8283 May, Vascular dementia with behavior disturbance F01.51 [facility] [address] [place] [address] 75854- 8054 Apr, [facility] [id number] [place] [address] 82621- 9771 Apr, Pain R52 [facility] [address] [place] [id number] Apr, Generalized anxiety disorder F41.1 ; PVD (peripheral vascular disease) I73.9 and Type 2 diabetes mellitus with complication E11.8 [facility] [address] [place] [address] 23488- 4000 Apr, Vascular dementia with behavior disturbance F01.51 [facility] [id number] [place] [address] 14794- 4804 Apr, [facility] [id number] [place] [address] 08103- 2636 Apr, Vascular dementia with behavior disturbance F01.51 [facility] [id number] [place] [address] 03631- 4873 Apr, [facility] [id number] [place] [address] [id number] Mar, [facility] [address] [place] [address] 02037- 9980 Mar, Type 2 diabetes mellitus with complication E11.8 ; Vascular dementia with behavior disturbance F01.51 and Depression F32.9 [facility] [address] [address]- 9394 Mar, [facility] [id number] [place] [address] 56283- 8468 Feb, [facility] [address] [place] [address] 23898- 3222 Feb, Viral illness B34.9 [facility] [id number] [place] [address] 67294- 1558 Jan, Diabetes 250.00 [facility] [id number] [address]- 3200 Jan, [facility] [id number] [place] [address] 07985- 9940 Jan, [facility] [address], [place] [address]- 5063 Jan, [facility] [address] [place] [id number] Jan, Vascular dementia with behavior disturbance F01.51 and Type 2 diabetes mellitus with complication E11.8 [facility] [id number] [place] [address] 73705- 7524 Jan, Pain R52 [facility] [address] [place] [address] 89901- 2096 Jan, Pain R52 [facility] [id number] [place] [address] 00547- 6322 Dec, [facility] [id number] [place] [address] 97046- 2674 Nov, [facility] [address] [place] [id number] Nov, Type 2 diabetes mellitus with complication E11.8 [facility] [address], [place] [address]- 5315 Nov, [facility] [address], [place] [address]- 9482 Oct, [facility] [address] [address]- 6120 Oct, [facility] [id number] [place] [address] 98648- 9046 Oct, Vascular dementia with behavior disturbance F01.51 and Type 2 diabetes mellitus with complication E11.8 [facility] [address] [address]- 1064 August, Type 2 diabetes mellitus with complication E11.8 and Vascular dementia with behavior disturbance F01.51 [facility] [address] [address]- 6128 August, Vascular dementia F01.50 [facility] [address] [address]- 7046 August, Vascular dementia with behavior disturbance F01.51 [facility] [id number] [place] [address] 30714- 4511 Jul, Vascular dementia with behavior disturbance F01.51 [facility] [address] [place] [address] 75747- 4511 Jun, Vascular dementia F01.50 [facility] [id number] [place] [address] 34860- 4562 Jun, Type 2 diabetes mellitus with complication E11.8 ; Long- term insulin use Z79.4 and Vascular dementia with behavior disturbance F01.51 [facility] [address] [place] [address] 37503- 9165 Jun, Vascular dementia with behavior disturbance F01.51 [facility] [id number] [place] [address] 72414- 1673 Jun, Vascular dementia F01.50 [facility] [address] [address]- 9058 Apr, [facility] [id number] [place] [address] 29874- 7222 Apr, [facility] [address] [place] [address] 69540- 7638 Apr, [facility] [id number] [place] [address] 62565- 9618 Apr, Type 2 diabetes mellitus with complication E11.8 ; Depression F32.9 and Long-term insulin use Z79.4 [facility] [address] [place] [address] 54112- 9806 Mar, [facility] [address] [place] [id number] Mar, Depression F32.9 ; Type 2 diabetes mellitus with complication E11.8 and Long-term insulin use Z79.4 [facility] [address] [address]- 3656 Feb, [facility] [address] 4339 Feb, Hyperthyroidism E05.90 [facility] [id number] [place] [address] 47347- 3498 Feb, Hyperthyroidism E05.90 [facility] [id number] [place] [address] 40074- 7086 Feb, [facility] [id number] [address]- 6517 Jan, [facility] [id number] [place] [address] 74078- 2251 Dec, Nicotine addiction 305.1 [facility] [address] [address]- 6997 Oct, Nicotine abuse 305.1 [facility] [address] [place] [address] 10867- 8839 Oct, [facility] [address], [place] [address]- 2411 August, [facility] [address] [id number] August, History of drug abuse 305.93 and Diabetes 250.00 [facility] [address] [address]- 5957 Jul, [facility] [address]- 9981 Jul, [facility] [address]- 0279 Jun, [facility] [address] [place] [address]- 4173 Jun, [facility] [address] [id number] [place] [address]- 6440 Jun, [facility] [place] [facility] [address] [id number] [place] [address]- 4218 Jun, [facility] [address] [id number] [place] [address]- 9625 Jun, [facility] [address] [id number] [place] [address]- 7717 Jun, [facility] [address] [id number] [place] [address]- 8825 May, [facility] [address] [id number] [place] [address]- 8548 May, [facility] [address] [id number] [place] [address]- 6292 May, [facility] [address] [id number] [place] [address]- 5069 May, [facility] [address] [id number] [place] [address]- 6356 May, [facility] [address] [id number] [place] [address]- 4596 Apr, [facility] [address] [facility] [id number] [place] [address]- 5766 Apr, [facility] [address] [id number] Apr, [facility] [address] [id number] [place] [address]- 0281 Apr, [facility] [address] [facility] [id number] [place] [address]- 3916 Apr, [facility] [address] [facility] [id number] [place] [address]- 0337 Apr, [facility] [address] [id number] [place] [address]- 9588 Apr, [facility] [place] [facility] [address] [id number] [place] [address]- 3565 Apr, [facility] [address] [id number] [place] [address]- 2396 Mar, [facility] [place] [facility] [address] [id number] [place] [address]- 6387 Mar, [facility] [address] [id number] [place] [address]- 0006 Mar, [facility] [place] [facility] [address] [id number] [place] [address]- 4580 Mar, [facility] [address] [id number] [place] [address]- 1453 Mar, [facility] [address] [id number] [place] [address]- 3038 Mar, [facility] [place] [facility] [address] [id number] [place] [address]- 3871 Mar, [facility] [place] [facility] [address] [id number] [place] [address]- 0786 Mar, [facility] [place] [facility] [address] [id number] [place] [address]- 2554 Feb, [facility] [place] [facility] [address] [id number] [address]- 8705 Feb, [facility] [place] [facility] [address] [id number] [place] [address]- 4685 Feb, [facility] [place] [facility] [address] [id number] [place] [address]- 5566 Feb, [facility] [place] [facility] [address] [facility] [id number] [address]- 8586 Feb, [place] [address] [id number] Feb, [facility] [place] [facility] [address] [id number] [place] [address]- 6174 Feb, [facility] [place] [facility] [address] [id number] [place] [address]- 7377 Feb, [facility] [place] [facility] [address] [id number] [place] [address]- 1348 Feb, [facility] [place] [facility] [address] [id number] [place] [address]- 4456 Feb, [facility] [place] [facility] [address] [id number] [place] [address]- 8070 Jan, [facility] [place] [facility] [address] [id number] [place] [address]- 5238 30 Jan, 2014 [facility] [place] [facility] [address] [id number] [place] [address]- 7983 17 Jan, 2014 [facility] [place] [facility] [address] [id number], [place] [address]- 3628 17 Jan, 2014 [facility] [place] [facility] [address] [id number] [address]- 8863 16 Jan, 2014 [facility] [place] [facility] [address] [id number] [address]- 7507 16 Jan, 2014 [facility] [place] [facility] [address] [id number], [place] [address]- 1532 15 Jan, 2014 [facility] [place] [facility] [address] [id number], [place] [address] 13 Jan, 2014 [facility] [place] [facility] [address] [id number], [place] [address] 13 Jan, 2014 [facility] [place] [facility] [address] [id number], [place] [address] 13 Jan, 2014 [facility] [place] [facility] [address] [id number], [place] [address] 13 Jan, 2014 [facility] [place] [facility] [address] [id number] [place] [address] 09 Jan, 2013 [facility] [place] [facility] [address] [id number] [place] [address] Jan, 2013 [facility] [place] [facility] [address] [id number] [place] [address] Jan, 2013 [facility] [place] [facility] [address] [id number] [place] [address] Jan, 2013 [facility] [place] [facility] [address] [id number] [place] [address] Jan, 2013 [facility] [place] [facility] [address] [id number] [place] [address] Jan, 2013 [facility] [place] [facility] [address] [id number] [place] [address] Dec, 2013 [facility] [place] [facility] [address] [id number] [place] [address] 19 Dec, 2013 [facility] [place] [facility] [address] [id number] [place] [address] 11 Sep, 2013 [facility] [place] [facility] [address] [id number] [place] [address]- [address] 11 Sep, 2013 [facility] [place] [facility] [address] [id number] [place] [address]- [address] Sep, 2013 [facility] [place] [facility] [address] [id number] [place] [address]- [address] 09 Sep, 2013 [facility] [place] [facility] [address] [id number] [place] [address]49 08 Sep, 2013 [facility] [place] [facility] [address] [id number] [place] [address] 25[address] 08 Sep, 2013 [facility] [place] [facility] [address] [id number] [place] [address]- [address] 08 Sep, 2013 [facility] [place] [facility] [address] [id number] [place] [address]- 254 Dec, [facility] [place] [facility] [address] [id number] [place] [address] Dec, 2013 [facility] [place] [facility] [address] [id number] [place] [address] Dec, [facility] [facility] [address] [id number] [place] [address] Dec, [facility] [place] [facility] [address] [id number] [place] [address] Dec, [facility] [place] [facility] [address] [id number] [place] [address] 6[address] Nov, [facility] [place] [facility] [address] [id number] [place] [address] 0251 Nov, [facility] [place] [facility] [address] [id number] [place] [address] 4108 Nov, [facility] [place] [facility] [address] [id number] [place] [address] 8549 Nov, [facility] [place] [facility] [address] [id number] [place] [address]- 7676 Nov, [facility] [place] [facility] [address] [id number] [place] [address] 4016 Nov, [facility] [place] [facility] [address] [id number] [place] [address] 3739 Nov, [facility] [place] [facility] [address] [id number] [place] [address]- 2048 Nov, [facility] [place] [facility] [address] [id number] [place] [address]- 6960 Nov, [facility] [place] [facility] [address] [id number] [place] [address]- 9555 Nov, [facility] [place] [facility] [address] [id number] [place] [address]- 6678 Nov, [facility] [place] [facility] [address] [id number] [place] [address]- 4905 Nov, [facility] [place] [facility] [address] [id number] [place] [address]- 9[address] Nov, [facility] [place] [facility] [address] [id number] [place] [address]- 3679 Nov, [facility] [place] [facility] [address] [id number] [place] [address]- 0023 Oct, [facility] [place] [facility] [address] [id number] [place] [address]- 9899 Oct, [facility] [place] [facility] [address] [id number] [place] [address]- 7988 Oct, [facility] [place] [facility] [address] [id number] [place] [address]- 2777 Oct, [facility] [place] [facility] [address] [id number] [place] [address]- 8054 Oct, [facility] [place] [facility] [address] [id number] [place] [address]- 4873 Oct, [facility] [place] [facility] [address] [id number] [place] [address]- 9747 Oct, [facility] [place] [facility] [address] [id number] [place] [address]- 3683 Oct, [facility] [place] [facility] [address] [id number] [place] [address]- 4296 Oct, [facility] [place] [facility] [address] [id number] [place] [address]- 3615 Oct, [facility] [place] [facility] [address] [id number] [place] [address]- 0341 Oct, [facility] [place] [facility] [address] [id number] [place] [address]- 7754 Oct, [facility] [place] [facility] [address] [id number] [place] [address]- 6669 Oct, [facility] [place] [facility] [address] [id number] [place] [address]- 2757 Oct, 2013 [facility] [place] [facility] [address] [id number] [place] [address]- 8729 Oct, 2013 [facility] [place] [facility] [address] [id number] [place] [address]- 3696 Oct, 2013 [facility] [place] [address] [id number] [place] [address]- 4125 Oct, 2013 [facility] [place] [address] [id number] [place] [address]- 8627 Oct, 2013 [facility] [address] [id number] [place] [address]- 1408 Oct, [facility] [address] [id number] [place] [address]- 3665 Oct, [facility] [place] [facility] [address] [id number] [place] [address]- 5211 Sep, [facility] [address] [id number] [place] [address]- 9542 Sep, [facility] [address] [id number] [place] [address]- 1846 Sep, [facility] [address] [id number] [place] [address]- 8966 Sep, [facility] [address] [id number] [place] [address]- 9422 Sep, [facility] [address] [id number] [place] [address]- 8425 Sep, [facility] [address] [id number] [place] [address]- 9927 August, [facility] [address] [id number] [place] [address]- 0376 August, [facility] [address] [id number] [place] [address]- 0509 Jul, [facility] [address] [id number] [place] [address]- 3004 Jul, [facility] [address] [id number] [place] [address]- 2161 Jul, [facility] [address] [id number] [place] [address]- 0345 Jul, [facility] [address] [id number] [place] [address]- 3942 Jul, [facility] [address] [id number] [place] [address]- 6797 Jul, [facility] [address] [id number] [place] [address]- 0301 Jul, [facility] [address] [id number] [place] [address]- 2478 Jul, [facility] [address] [id number] [place] [address]- 3995 Jun, [facility] [address] [id number] [place] [address]- 0659 Jun, [facility] [address] [id number] [place] [address]- 2206 Jun, [facility] [address] [id number] [place] [address]- 7143 Jun, [facility] [address] [id number] [place] [address]- 6390 Jun, [facility] [address] [id number] [place] [address]- 0361 May, [facility] [address] [id number] [place] [address]- 4645 May, [facility] [address] [id number] [place] [address]- 7855 May, [facility] [address] [id number] [place] [address]- 8376 May, [facility] [address] [id number] [place] [address] 2546 May, [facility] [address] [id number] [place] [address] 2546 May, [facility] [address] [id number] [place] [address] 2546 May, 2013 [facility] [address] [id number] [place] [address] 2546 May, [facility] [address] [id number] [place] [address]- 0076 May, [facility] [address] [facility] [id number] [place] [address] 2546 May, [facility] [address] [facility] [id number] [place] [address]- 2540 May, [facility] [address] [facility] [id number] [place] [address]- 8352 Apr, [facility] [address] [facility] [id number] [place] [address] 2545 Apr, [facility] [address] [facility] [id number] [place] [address] 2546 Mar, [facility] [address] [facility] [id number] [place] [address] 2546 Mar, [facility] [address] [id number] [place] [address] 2546 Mar, [facility] [address] [facility] [id number] [place] [address] 2546 Mar, [facility] [address] [facility] [id number] [place] [address] 2546 Mar, [facility] [address] [facility] [id number] [place] [address]- 7823 Jan, [facility] [address] [id number] [place] [address]- 0529 Jan, [facility] [address] [id number] [place] [address]- 7680 Jan, [facility] [address] [id number] [place] [address]- 8859 Jan, [facility] [address] [id number] [place] [address]- 2614 Jan, [facility] [address] [id number] [place] [address]- 5318 Jan, [facility] [address] [id number] [place] [address]- 7793 Jan, [facility] [address] [id number] [place] [address]- 7489 Jan, [facility] [address] [id number] [place] [address]- 4851 Jan, [facility] [address] [id number] [place] [address]- 2049 Jan, [facility] [address] [id number] [place] [address]- 8765 Dec, [facility] [address] [id number], [place] [address]- 3778 Oct, [facility] [address] [id number], [place] [address]- 0811 Oct, [facility] [address] [id number] [place] [address]- 6048 Oct, [facility] [address] [id number], [place] [address]- 3366 Oct, [facility] [address] [id number] [place] [address]- 2495 Oct, [facility] [address] [id number] [place] [address]- 7870 Oct, [facility] [address] [id number] [place] [address]- 8354 Sep, [facility] [address] [id number] [place] [address]- 2885 August, [facility] [address] [id number] [place] [address]- 2026 August, [facility] [address] [id number] [place] [address]- 7678 August, [facility] [address] [id number] [place] [address]- 6862 August, [facility] [address] [id number] [place] [address]- 7346 August, [facility] [address] [id number] [place] [address]- 0846 May, [facility] [address] [id number] [place] [address]- 6749 Apr, [facility] [address] [id number] [place] [address]- 2428 Apr, [facility] [address] [id number] [place] [address]- 5065 Apr, [facility] [address] [id number] [place] [address]- 8384 Apr, [facility] [address] [id number] [place] [address]- 7198 Apr, [facility] [address] [place] [id number] Mar, [facility] [address] [id number] [place] [address]- 1045 Mar, [facility] [address] [id number] [place] [address]- 3477 Mar, [facility] [address] [id number] [place] [address]- 7581 19 Mar, 2012 [facility] [address] [id number] [place] [address]- 7756 17 Mar, 2012 [facility] [address] [id number] [place] [address]- 2896 17 Mar, 2012 [facility] [address] [id number] [place] [address]- 4756 13 Mar, 2012 [facility] [address] [id number] [place] [address]- 6516 13 Mar, 2012 [facility] [address] [id number] [place] [address]- 5646 13 Mar, 2012 [facility] [address] [id number] [place] [address]- 6665 13 Mar, 2012 [facility] [address] [id number] [place] [address]- 2617 12 Mar, 2012 [facility] [address] [id number] [place] [address]- 4117 12 Mar, 2012 [facility] [address] [id number] [place] [address]- 3146 Mar, [facility] [address] [id number] [place] [address]- 0288 10 Mar, 2012 [facility] [address] [id number] [place] [address]- 6096 07 Mar, 2012 [facility] [address] [id number] [place] [address]- 7056 07 Mar, 2012 [facility] [address] [id number] [place] [address]- 0126 06 Mar, 2012 [facility] [address] [id number] [place] [address]- 1236 06 Mar, 2012 [facility] [address] [id number] [place] [address]- 0794 Mar, [facility] [address] [id number] [place] [address]- 8163 Mar, [facility] [address] [id number] [place] [address]- 5194 Feb, [facility] [address] [id number] [place] [address]- 4148 Feb, [facility] [address] [id number] [place] [address]- 4040 Feb, [facility] [address] [id number] [place] [address]- 8952 Feb, [facility] [address] [id number] [place] [address]- 8043 Jan, [facility] [address] [id number] [place] [address]- 1664 Jan, [facility] [address] [id number], [place] [address]- 0771 Jan, [facility] [address] [id number] [place] [address]- 4574 Jan, [facility] [place] [facility] [address] [facility] [id number], [place] [address]- 8391 Jan, [facility] [facility] [address] [id number], [place] [address]- 9858 Jan, [facility] [address] [id number], [place] [address]- 6716 Jan, [facility] [address] [id number], [place] [address]- 6134 Jan, [facility] [address] [id number], [place] [address]- 2339 Jan, [facility] [address] [facility] [id number] [place] [address]- 7219 Dec, [facility] [place] [facility] [address] [id number] [place] [address]- 8767 14 Dec, 2011 [facility] [place] [facility] [address] [id number] [place] [address]- 8151 12 Dec, 2011 [facility] [place] [facility] [address] [id number] [place] [address]- 0476 06 Dec, 2011 [facility] [place] [facility] [address] [id number] [place] [address]- 3526 06 Dec, 2011 [facility] [place] [facility] [address] [id number] [place] [address]- 1072 Nov, [facility] [place] [facility] [address] [id number] [place] [address]- 8389 Nov, [facility] [place] [facility] [address] [id number] [place] [address]- 5591 Nov, [facility] [place] [facility] [address] [id number] [place] [address]- 0610 Nov, [facility] [place] [facility] [address] [id number] [place] [address]- 8697 Nov, [facility] [place] [facility] [address] [id number] [place] [address]- 4760 Nov, [facility] [place] [facility] [address] [id number] [place] [address]- 8920 Nov, [facility] [place] [facility] [address] [id number] [place] [address]- 9317 Nov, [facility] [place] [facility] [address] [id number] [place] [address]- 6849 Nov, [facility] [place] [facility] [address] [id number] [place] [address]- 3321 Oct, [facility] [place] [facility] [address] [id number] [place] [address]- 8423 Oct, [facility] [place] [facility] [address] [id number] [place] [address]- 7484 14 Sep, 2011 [facility] [place] [facility] [address] [id number] [place] [address]- 9173 13 Sep, 2011 [facility] [place] [facility] [address] [id number] [place] [address]- 3988 05 Sep, 2011 [facility] [place] [facility] [address] [id number] [place] [address]- 5514 14 Aug, 2011 [facility] [place] [facility] [address] [id number] [place] [address]- 9316 30 Jul, 2011 [facility] [place] [facility] [address] [id number] [place] [address]- 1212 27 Jul, 2011 [facility] [place] [facility] [address] [id number] [place] [address]- 2415 27 Jul, 2011 [facility] [place] [facility] [address] [id number] [place] [address]- 5212 18 Jul, 2011 [facility] [place] [facility] [address] [id number] [place] [address]- 9187 16 Jul, 2011 [facility] [place] [facility] [address] [id number] [place] [address]- 5808 16 Jul, 2011 [facility] [place] [facility] [address] [id number] [place] [address]- 6777 16 Jul, 2011 [facility] [facility] [address] [id number] [place] [address]- 6552 14 Jul, 2011 [facility] [place] [facility] [address] [id number] [place] [address]- 6989 12 Jul, 2011 [facility] [place] [facility] [address] [id number] [place] [address]- 1681 19 Jun, 2011 [facility] [place] [facility] [address] [id number] [place] [address]- 0069 18 Jun, 2011 [facility] [place] [facility] [address] [id number] [place] [address]- 2735 15 Jun, 2011 [facility] [place] [facility] [address] [id number] [place] [address]- 1112 Jun, [facility] [address] [id number] [place] [address]- 3819 Jun, [facility] [place] [facility] [address] [id number] [place] [address]- 9679 Jun, [facility] [place] [facility] [address] [id number] [place] [address]- 5360 Jun, [facility] [place] [facility] [address] [id number] [place] [address]- 7740 Jun, [facility] [place] [facility] [address] [id number] [place] [address]- 8159 May, [facility] [place] [facility] [address] [id number] [place] [address]- 5923 May, [facility] [address] [id number] [place] [address]- 4791 May, [facility] [place] [facility] [address] [id number] [place] [address]- 4922 Apr, [facility] [address] [id number] [place] [address]- 5457 Apr, [facility] [place] [facility] [address] [id number] [place] [address]- 2274 Apr, [facility] [address] [id number] [place] [address]- 9831 Mar, [facility] [place] [facility] [address] [id number] [place] [address]- 5362 Mar, [facility] [place] [facility] [address] [id number] [place] [address]- 3333 15 Mar, 2011 [facility] [place] [facility] [address] [id number] [place] [address]- 0272 13 Mar, 2011 [facility] [place] [facility] [address] [id number] [place] [address]- 0158 Mar, [facility] [place] [facility] [address] [id number] [place] [address]- 2780 12 Mar, 2011 [facility] [address] [id number] [place] [address]- 1016 Mar, [facility] [place] [facility] [address] [id number] [place] [address]- 1586 Mar, [facility] [address] [id number] [place] [address]- 4425 08 Mar, 2011 [facility] [place] [facility] [address] [id number] [place] [address]- 8525 Mar, [facility] [address] [id number] [place] [address]- 0367 Mar, [facility] [address] [id number] [place] [address] Mar, [facility] [place] [facility] [address] [id number] [place] [address] Mar, [facility] [address] [id number] [place] [address] Mar, [facility] [place] [facility] [address] [id number] [place] [address] Feb, [facility] [address] [id number] [place] [address] Feb, [facility] [place] [facility] [address] [id number] [place] [address] Feb, [facility] [place] [facility] [address] [id number] [place] [address] Jan, [facility] [place] [facility] [address] [id number] [place] [address] Jan, [facility] [place] [facility] [address] [id number] [place] [address] Oct, [facility] [place] [facility] [address] [id number] [place] [address] Sep, [facility] [address] [facility] [id number] [address] Mar, [facility] [address] [facility] [id number] [address] Mar, [facility] [address] [facility] [id number], [place] [address] Feb, [facility] [address] [facility] [id number], [place] [address] Feb, [facility] [address] [facility] [id number], [place] [address] Jan, [facility] [address] [facility] [id number], [place] [address] Jan, [facility] [id number] [address] Mar, [facility] [id number] [address] Feb, [facility] [id number] [address] Feb, [facility] [id number], [place] [address] Feb, [facility] [id number], [place] [address] Feb, [facility] [address] [id number], [place] [address] Jan, [facility] [address] [facility] [id number], [place] [address] Dec, [facility] [address] [id number] [address] [address] Nov, IMMUNIZATIONS No Known Immunizations SOCIAL HISTORY Never Assessed REASON FOR VISIT Chest pain PLAN OF CARE VITAL SIGNS MEDICATIONS Unknown Medications RESULTS No Results PROCEDURES No Known procedures INSTRUCTIONS MEDICATIONS ADMINISTERED No Known Medications MEDICAL (GENERAL) HISTORY Type Description Date Hospitalization History [facility] March 2015
--- OUTSIDE RECORDS SUMMARY | 2018-02-25 07:49 | XMS REPORT ---
Author Author STEPHANIE CHRISTIANSEN [facility] Address [address] [place] [address] Care Team Providers Care Surgical Coder Name Role Phone STEPHANIE CHRISTIANSEN Unavailable PROBLEMS Type Condition ICD9-CM Code FPA00-GH Code Onset Dates Condition Status SNOMED Code Problem Hyperlipidemia, unspecified hyperlipidemia type E78.5 Active 55347263 Problem Long-term insulin use Z79.4 Active 852240918 Problem Abnormal carotid ultrasound R93.8 Active 173805041 Problem Type 2 diabetes mellitus with complication E11.8 Active 23704098 Problem Positive TB test R76.11 Active 677514905 Problem Vascular dementia with behavior disturbance F01.51 Active 614855913 Problem PVD (peripheral vascular disease) I73.9 Active 737256037 Problem Pain R52 Active 50597877 Problem Other chronic osteomyelitis of left foot M86.672 Active 585096289 Problem Nicotine dependence, unspecified, uncomplicated F17.200 Active 359650061 Problem Peripheral vascular disease due to secondary diabetes E13.51 Active 0832207 Problem Nonintractable epilepsy without status epilepticus, unspecified epilepsy type G40.909 Active 593441410 Problem Recurrent major depressive disorder, remission status unspecified F33.9 Active 77703806 Problem Anxiety F41.9 Active 65668990 Problem Generalized anxiety disorder F41.1 Active 70772945 Problem Vascular dementia F01.50 Active 295266793 Problem Pseudobulbar affect F48.2 Active 26691439 Problem Coronary artery disease involving sitka coronary artery of sitka heart without angina pectoris I25.10 Active 9224238983186 Problem Gastroesophageal reflux disease without esophagitis K21.9 Active 244265036 Problem Cerebrovascular accident (CVA) due to other mechanism I63.8 Active 539847780 Problem Pulmonary emphysema, unspecified emphysema type J43.9 Active 02953541 Problem Neuropathy G62.9 Active 345657215 Problem Depression F32.9 Active 25498340 Problem Essential hypertension I10 Active 59591463 Problem Acquired hypothyroidism E03.9 Active 274727894 ALLERGIES No Information ENCOUNTERS Encounter Location Date Diagnosis [place] [id number] [place] [address] 95780- 2241 Nov, Generalized anxiety disorder F41.1 [place] [id number] [place] [address] 80413- 2700 Oct, Generalized anxiety disorder F41.1 [place] [id number] [place] [address] 99983- 6690 Oct, Generalized anxiety disorder F41.1 [facility] [address] [id number] Oct, Sepsis, due to unspecified organism A41.9 ; Generalized anxiety disorder F41.1 ; Pain R52 and Depression F32.9 [place] [id number] [place] [address] 44116- 7949 Oct, [place] [id number] [place] [address] 97176- 1867 Oct, [place] [id number] [place] [address] 69814- 5915 Sep, Generalized anxiety disorder F41.1 [place] [id number] [place] [address] 44104- 1906 Sep, [place] [id number] [place] [address] 50948- 1850 Sep, Type 2 diabetes mellitus with complication E11.8 [place] [id number] [place] [address] 07284- 4046 August, Generalized anxiety disorder F41.1 [place] [id number] [place] [address] 14675- 9415 August, [facility] [address] [id number] August, Type 2 diabetes mellitus with complication E11.8 ; Vascular dementia with behavior disturbance F01.51 ; Long-term insulin use Z79.4 and Nicotine dependence, unspecified, uncomplicated F17.200 [facility] [address] [address] 3305 August, Generalized anxiety disorder F41.1 [facility] [address], [place] [address]- 9276 Jul, Generalized anxiety disorder F41.1 [facility] [id number] [id number] Jun, Generalized anxiety disorder F41.1 [facility] [id number] [place] [address] [id number] Jun, [facility] [id number] [place] [address] [id number] May, [facility] [address] [place] [address] 48424- 0226 May, [facility] [id number] [place] [address] [id number] May, Generalized anxiety disorder F41.1 [facility] [address] 9553 Apr, [facility] [address] [place] [id number] Apr, Other chronic osteomyelitis of left foot M86.672 ; Type 2 diabetes mellitus with complication E11.8 ; Vascular dementia F01.50 ; Long-term insulin use Z79.4 ; PVD (peripheral vascular disease) I73.9 and Nicotine abuse 305.1 [facility] [address] [address] 8008 Apr, [facility] [id number] [place] [address] [id number] Apr, [facility] [address] [place] [address] [id number]- 7605 Apr, Pain R52 and Generalized anxiety disorder F41.1 [facility] [address], [place] [address]- 8657 Mar, [place] [id number] [place] [address] 01627- 6166 Mar, Pain R52 and Generalized anxiety disorder F41.1 [facility] [address] [place] [id number] Feb, Depression F32.9 ; Type 2 diabetes mellitus with complication E11.8 and Nicotine dependence, unspecified, uncomplicated F17.200 [facility] [id number] [place] [address] 72082- 2297 Feb, Generalized anxiety disorder F41.1 and Pain R52 [facility] [id number] [place] [address] 93120- 6206 Feb, [facility] [address] 90207- 7262 Jan, [facility] [id number] [place] [address] 75967- 9980 Jan, Generalized anxiety disorder F41.1 and Pain R52 [facility] [id number] [place] [address] 74074- 3787 Jan, [facility] [address] [id number] Dec, Generalized anxiety disorder F41.1 and Pain R52 [facility] [address] [place] [id number] Dec, Vascular dementia F01.50 ; Pain of left leg M79.605 ; Pain in right leg M79.604 and Type 2 diabetes mellitus with complication E11.8 [facility] [id number] [place] [address] 84190- 5760 Dec, Pain R52 [facility] [id number] [place] [address] 47315- 1690 Dec, [facility] [id number] [place] [address] 13395- 3222 Nov, [facility] [id number] [place] [address] 97653- 3861 Nov, Pain R52 and Generalized anxiety disorder F41.1 [facility] [address] [place] [id number] Nov, Depression F32.9 ; Vascular dementia with behavior disturbance F01.51 and Anxiety F41.9 [facility] [address], [place] [address]- 7256 Nov, Pain R52 and Generalized anxiety disorder F41.1 [facility] [id number] [place] [address] 82840- 5163 Oct, Generalized anxiety disorder F41.1 [facility] [id number] [place] [address] 64423- 7505 Oct, Pain R52 [facility] [id number] [place] [address] 00837- 8191 Sep, [facility] [address] [place] [id number] Sep, Generalized anxiety disorder F41.1 [facility] [id number] [place] [address] 91655- 9666 Sep, Pain R52 [facility] [id number] [place] [address] 65607- 0888 Sep, Generalized anxiety disorder F41.1 [facility] [address] [place] [address] 86137- 4114 August, [facility] [id number] [place] [address] 18600- 0836 August, [facility] [address] [place] [address] 48118- 0163 August, Pain R52 [facility] [id number], [place] [address]- 8115 August, Generalized anxiety disorder F41.1 [facility] [id number] [place] [address] [id number] August, Generalized anxiety disorder F41.1 [facility] [id number] [place] [address] 32437- 3304 17 Jul, 2016 Pain R52 [facility] [id number] [place] [address] 23063- 9267 Jul, [facility] [address] [id number] Jul, [facility] [address] 31794- 2633 Jun, [facility] [address] [id number] Jun, Depression F32.9 [facility] [address] 77072- 7913 Jun, Pain R52 [facility] [address] 75483- 3280 Jun, [facility] [address] [place] [id number] Jun, Vascular dementia F01.50 and Depression F32.9 [facility] [id number] [place] [address] 66192- 9542 May, Pain R52 [facility] [address] 14548- 1620 15 May, 2016 [facility] [id number] [place] [address] 39811- 4298 10 May, 2016 Pseudobulbar affect F48.2 [facility] [id number] [place] [address] 93735- 3866 09 May, 2016 [facility] [id number] [place] [address] 91161- 6312 May, PVD (peripheral vascular disease) I73.9 [facility] [id number] [place] [address] 62098- 6475 08 May, 2016 Vascular dementia with behavior disturbance F01.51 [facility] [address] 86281- 4767 May, Vascular dementia with behavior disturbance F01.51 [facility] [address] [place] [address] 90339- 5255 Apr, [facility] [id number] [place] [address] 61615- 1190 Apr, Pain R52 [facility] [address] [place] [id number] Apr, Generalized anxiety disorder F41.1 ; PVD (peripheral vascular disease) I73.9 and Type 2 diabetes mellitus with complication E11.8 [facility] [address] [place] [address] 35488- 8554 Apr, Vascular dementia with behavior disturbance F01.51 [facility] [id number] [place] [address] 19686- 9170 Apr, [facility] [id number] [place] [address] 26142- 4196 Apr, Vascular dementia with behavior disturbance F01.51 [facility] [address] [place] [address] 66449- 4211 Apr, [facility] [id number] [place] [address] [id number] Mar, [facility] [address] [place] [address] 52096- 6588 Mar, Type 2 diabetes mellitus with complication E11.8 ; Vascular dementia with behavior disturbance F01.51 and Depression F32.9 [facility] [address], [place] [address]- 4616 Mar, [facility] [id number] [place] [address] 32595- 5488 Feb, [facility] [address] [place] [address] 55113- 6656 Feb, Viral illness B34.9 [facility] [id number] [place] [address] 52420- 4879 Jan, Diabetes 250.00 [facility] [id number], [place] [address]- 5400 Jan, [facility] [id number] [place] [address] 57605- 1364 Jan, [facility] [address], [place] [address]- 2350 Jan, [facility] [address] [place] [id number] Jan, Vascular dementia with behavior disturbance F01.51 and Type 2 diabetes mellitus with complication E11.8 [facility] [id number] [place] [address] 61378- 3823 Jan, Pain R52 [facility] [address] [place] [address] 13366- 7343 Jan, Pain R52 [facility] [id number] [place] [address] 09310- 0203 Dec, [facility] [address] [place] [address] 09900- 0772 Nov, [facility] [address] [place] [id number] Nov, Type 2 diabetes mellitus with complication E11.8 [facility] [address], [place] [address]- 5939 Nov, [facility] [address], [place] [address]- 8669 Oct, [facility] [address], [place] [address]- 4746 Oct, [facility] [id number] [place] [address] 15874- 8470 Oct, Vascular dementia with behavior disturbance F01.51 and Type 2 diabetes mellitus with complication E11.8 [facility] [address], [place] [address]- 2810 August, Type 2 diabetes mellitus with complication E11.8 and Vascular dementia with behavior disturbance F01.51 [facility] [address], [place] [address]- 7624 August, Vascular dementia F01.50 [facility] [address] [address]- 0656 August, Vascular dementia with behavior disturbance F01.51 [facility] [id number] [place] [address] 21522- 3156 Jul, Vascular dementia with behavior disturbance F01.51 [facility] [address] [place] [address] 51443- 9347 Jun, Vascular dementia F01.50 [facility] [id number] [place] [address] 36053- 2212 Jun, Type 2 diabetes mellitus with complication E11.8 ; Long- term insulin use Z79.4 and Vascular dementia with behavior disturbance F01.51 [facility] [address] [place] [address] 36571- 4564 Jun, Vascular dementia with behavior disturbance F01.51 [facility] [id number] [place] [address] 67857- 8015 Jun, Vascular dementia F01.50 [facility] [address], [place] [address]- 4553 Apr, [facility] [address] [place] [address] 95350- 7925 Apr, [facility] [address] [place] [address] 40485- 7400 Apr, [facility] [id number] [place] [address] 43015- 6056 Apr, Type 2 diabetes mellitus with complication E11.8 ; Depression F32.9 and Long-term insulin use Z79.4 [facility] [address] [place] [address] 93417- 7209 Mar, [facility] [address] [id number] Mar, Depression F32.9 ; Type 2 diabetes mellitus with complication E11.8 and Long-term insulin use Z79.4 [facility] [address], [place] [address]- 0206 Feb, [facility] [address] 8205 Feb, Hyperthyroidism E05.90 [facility] [id number] [place] [address] 60123- 6055 Feb, Hyperthyroidism E05.90 [facility] [id number] [place] [address] 24571- 5986 Feb, [facility] [id number], [place] [address]- 4241 Jan, [facility] [id number] [place] [address] 80086- 8657 Dec, Nicotine addiction 305.1 [facility] [address], [place] [address]- 6858 Oct, Nicotine abuse 305.1 [facility] [address] [place] [address] 89412- 4109 Oct, [facility] [address], [place] [address]- 1377 August, [facility] [address] [id number] August, History of drug abuse 305.93 and Diabetes 250.00 [facility] [address], [place] [address]- 4837 Jul, [facility] [address]- 6250 Jul, [facility] [address]- 2119 Jun, [facility] [address] [address]- 7185 Jun, [facility] [address] [id number] [place] [address]- 2053 Jun, [facility] [place] [facility] [address] [id number] [place] [address]- 8375 Jun, [facility] [address] [id number] [place] [address]- 4076 Jun, [facility] [address] [id number] [place] [address]- 8547 Jun, [facility] [address] [id number] [place] [address]- 4112 May, [facility] [address] [id number] [place] [address]- 8240 May, [facility] [address] [id number] [place] [address]- 4678 May, [facility] [address] [id number] [place] [address]- 0182 May, [facility] [address] [id number] [place] [address]- 2832 May, [facility] [address] [id number] [place] [address]- 9894 Apr, [facility] [address] [facility] [id number] [place] [address]- 6951 Apr, [facility] [address] [id number] Apr, [facility] [address] [id number] [place] [address]- 8422 Apr, [facility] [address] [facility] [id number] [place] [address]- 5221 Apr, [facility] [address] [facility] [id number] [place] [address]- 4590 Apr, [facility] [address] [id number] [place] [address]- 2422 Apr, [facility] [place] [facility] [address] [id number] [place] [address]- 6573 Apr, [facility] [address] [id number] [place] [address]- 8786 Mar, [facility] [place] [facility] [address] [id number] [place] [address]- 9973 Mar, [facility] [address] [id number] [place] [address]- 5141 Mar, [facility] [place] [facility] [address] [id number] [place] [address]- 6819 Mar, [facility] [address] [id number] [place] [address]- 7380 Mar, [facility] [address] [id number] [place] [address]- 9920 Mar, [facility] [place] [facility] [address] [id number] [place] [address]- 2045 Mar, [facility] [place] [facility] [address] [id number] [place] [address]- 6747 Mar, [facility] [place] [facility] [address] [id number] [place] [address]- 7071 Feb, [facility] [place] [facility] [address] [id number], [place] [address]- 1208 Feb, [facility] [place] [facility] [address] [id number] [place] [address]- 6299 Feb, [facility] [place] [facility] [address] [id number] [place] [address]- 6016 Feb, [facility] [place] [facility] [address] [facility] [id number], [place] [address]- 4638 Feb, [place] [address] [id number] Feb, [facility] [place] [facility] [address] [id number] [place] [address]- 5297 Feb, [facility] [place] [facility] [address] [id number] [place] [address]- 6385 Feb, [facility] [place] [facility] [address] [id number] [place] [address]- 3273 Feb, [facility] [place] [facility] [address] [id number] [place] [address]- 7710 Feb, [facility] [place] [facility] [address] [id number] [place] [address]- 1208 Jan, [facility] [place] [facility] [address] [id number] [place] [address]- 6285 30 Jan, 2014 [facility] [place] [facility] [address] [id number] [place] [address]- 5618 17 Jan, 2014 [facility] [place] [facility] [address] [id number], [place] [address]- 0749 17 Jan, 2014 [facility] [place] [facility] [address] [id number], [place] [address]- 0497 16 Jan, 2014 [facility] [place] [facility] [address] [id number], [place] [address]- 1846 16 Jan, 2014 [facility] [place] [facility] [address] [id number], [place] [address]- 8100 15 Jan, 2014 [facility] [place] [facility] [address] [id number], [place] [address]- 6437 13 Jan, 2014 [facility] [place] [facility] [address] [id number], [place] [address] 13 Jan, 2014 [facility] [place] [facility] [address] [id number], [place] [address] 13 Jan, 2014 [facility] [place] [facility] [address] [id number], [place] [address] 13 Jan, 2014 [facility] [place] [facility] [address] [id number] [place] [address] 09 Jan, 2013 [facility] [place] [facility] [address] [id number] [place] [address] Jan, 2013 [facility] [place] [facility] [address] [id number] [place] [address] Jan, 2013 [facility] [place] [facility] [address] [id number] [place] [address] Jan, 2013 [facility] [place] [facility] [address] [id number] [place] [address] Jan, 2013 [facility] [place] [facility] [address] [id number] [place] [address] Jan, 2013 [facility] [place] [facility] [address] [id number] [place] [address] Dec, 2013 [facility] [place] [facility] [address] [id number] [place] [address] 19 Dec, 2013 [facility] [place] [facility] [address] [id number] [place] [address] 11 Sep, 2013 [facility] [place] [facility] [address] [id number] [place] [address] 11 Sep, 2013 [facility] [place] [facility] [address] [id number] [place] [address] Sep, 2013 [facility] [place] [facility] [address] [id number] [place] [address] 09 Sep, 2013 [facility] [place] [facility] [address] [id number] [place] [address] 08 Sep, 2013 [facility] [place] [facility] [address] [id number] [place] [address] 08 Sep, 2013 [facility] [place] [facility] [address] [id number] [place] [address] 08 Sep, 2013 [facility] [place] [facility] [address] [id number] [place] [address]- [address] Dec, [facility] [place] [facility] [address] [id number] [place] [address] Dec, 2013 [facility] [place] [facility] [address] [id number] [place] [address] Dec, [facility] [place] [facility] [address] [id number] [place] [address] Dec, [facility] [place] [facility] [address] [id number] [place] [address] Dec, [facility] [place] [facility] [address] [id number] [place] [address] Nov, [facility] [place] [facility] [address] [id number] [place] [address] Nov, [facility] [place] [facility] [address] [id number] [place] [address] 2181 Nov, [facility] [place] [facility] [address] [id number] [place] [address] 2530 Nov, [facility] [place] [facility] [address] [id number] [place] [address]- 3657 Nov, [facility] [place] [facility] [address] [id number] [place] [address] 0383 Nov, [facility] [place] [facility] [address] [id number] [place] [address] 0217 Nov, [facility] [place] [facility] [address] [id number] [place] [address] 0334 Nov, [facility] [place] [facility] [address] [id number] [place] [address]- 4005 Nov, [facility] [place] [facility] [address] [id number] [place] [address] 5231 Nov, [facility] [place] [facility] [address] [id number] [place] [address]- 3080 Nov, [facility] [place] [facility] [address] [id number] [place] [address]- 3095 Nov, [facility] [place] [facility] [address] [id number] [place] [address]- 50[address] Nov, [facility] [place] [facility] [address] [id number] [place] [address]- 3380 Nov, [facility] [place] [facility] [address] [id number] [place] [address] 89[address] Oct, [facility] [place] [facility] [address] [id number] [place] [address]- 0659 Oct, [facility] [place] [facility] [address] [id number] [place] [address] 0323 Oct, [facility] [place] [facility] [address] [id number] [place] [address]- 3426 Oct, [facility] [place] [facility] [address] [id number] [place] [address]- 8728 Oct, [facility] [place] [facility] [address] [id number] [place] [address]- 3702 Oct, [facility] [place] [facility] [address] [id number] [place] [address]- 7195 Oct, [facility] [place] [facility] [address] [id number] [place] [address]- 8940 Oct, [facility] [place] [facility] [address] [id number] [place] [address]- 0426 Oct, [facility] [place] [facility] [address] [id number] [place] [address]- 9994 Oct, [facility] [place] [facility] [address] [id number] [place] [address]- 2094 Oct, [facility] [place] [facility] [address] [id number] [place] [address]- 4779 Oct, [facility] [place] [facility] [address] [id number] [place] [address]- 0866 Oct, [facility] [place] [facility] [address] [id number] [place] [address]- 3810 Oct, 2013 [facility] [place] [facility] [address] [id number] [place] [address]- 6631 Oct, 2013 [facility] [place] [facility] [address] [id number] [place] [address]- 7806 Oct, 2013 [facility] [place] [facility] [address] [id number] [place] [address]- 7808 Oct, 2013 [facility] [place] [facility] [address] [id number] [place] [address]- 8404 Oct, 2013 [facility] [place] [facility] [address] [id number] [place] [address]- 5820 Oct, [facility] [place] [facility] [address] [id number] [place] [address]- 0474 Oct, [facility] [place] [facility] [address] [id number] [place] [address]- 8568 Sep, [facility] [place] [facility] [address] [id number] [place] [address]- 3100 Sep, [facility] [place] [facility] [address] [id number] [place] [address]- 9538 Sep, [facility] [place] [facility] [address] [id number] [place] [address]- 8805 Sep, [facility] [place] [facility] [address] [id number] [place] [address]- 1535 Sep, [facility] [place] [facility] [address] [id number] [place] [address]- 6121 Sep, [facility] [place] [facility] [address] [id number] [place] [address]- 5885 August, [facility] [place] [facility] [address] [id number] [place] [address]- 9596 August, [facility] [place] [facility] [address] [id number] [place] [address]- 0504 Jul, [facility] [place] [facility] [address] [id number] [place] [address]- 2729 Jul, [facility] [place] [facility] [address] [id number] [place] [address]- 1925 Jul, [facility] [place] [facility] [address] [id number] [place] [address]- 6270 Jul, [facility] [place] [facility] [address] [id number] [place] [address]- 5134 Jul, [facility] [place] [facility] [address] [id number] [place] [address]- 2286 Jul, [facility] [place] [facility] [address] [id number] [place] [address]- 1311 Jul, [facility] [place] [facility] [address] [id number] [place] [address]- 6456 Jul, [facility] [place] [facility] [address] [id number] [place] [address]- 6169 Jun, [facility] [place] [facility] [address] [id number] [place] [address]- 4284 Jun, [facility] [place] [facility] [address] [id number] [place] [address]- 5990 Jun, [facility] [place] [facility] [address] [id number] [place] [address]- 0529 Jun, [facility] [place] [facility] [address] [id number] [place] [address]- 0851 Jun, [facility] [place] [facility] [address] [id number] [place] [address]- 9892 May, [facility] [place] [facility] [address] [id number] [place] [address]- 2852 May, [facility] [place] [facility] [address] [id number] [place] [address]- 6709 May, [facility] [place] [facility] [address] [id number] [place] [address]- 0486 May, [facility] [place] [facility] [address] [id number] [place] [address] 2546 May, [facility] [place] [facility] [address] [id number] [place] [address] 2546 May, [facility] [place] [facility] [address] [id number] [place] [address] 2546 May, 2013 [facility] [place] [facility] [address] [id number] [place] [address] 2546 May, [facility] [place] [facility] [address] [id number] [place] [address]- 9426 May, [facility] [place] [facility] [address] [facility] [id number] [place] [address] 2546 May, [facility] [place] [facility] [address] [facility] [id number] [place] [address]- 2540 May, [facility] [place] [facility] [address] [facility] [id number] [place] [address]- 6752 Apr, [facility] [place] [facility] [address] [facility] [id number] [place] [address] 2540 Apr, [facility] [place] [facility] [address] [facility] [id number] [place] [address] 2546 Mar, [facility] [place] [facility] [address] [facility] [id number] [place] [address] 2546 Mar, [facility] [place] [facility] [address] [id number] [place] [address] 2546 Mar, [facility] [place] [facility] [address] [facility] [id number] [place] [address] 2546 Mar, [facility] [place] [facility] [address] [facility] [id number] [place] [address] 2546 Mar, [facility] [place] [facility] [address] [facility] [id number] [place] [address]- 1849 Jan, [facility] [place] [facility] [address] [id number] [place] [address]- 7921 Jan, [facility] [place] [facility] [address] [id number] [place] [address]- 5506 Jan, [facility] [place] [facility] [address] [id number] [place] [address]- 6446 Jan, [facility] [place] [facility] [address] [id number] [place] [address]- 4343 Jan, [facility] [place] [facility] [address] [id number] [place] [address]- 3244 Jan, [facility] [place] [facility] [address] [id number] [place] [address]- 4685 Jan, [facility] [place] [facility] [address] [id number] [place] [address]- 8969 Jan, [facility] [place] [facility] [address] [id number] [place] [address]- 2441 Jan, [facility] [place] [facility] [address] [id number] [place] [address]- 0572 Jan, [facility] [place] [facility] [address] [id number] [place] [address]- 6869 Dec, [facility] [place] [facility] [address] [id number] [address] 5382 Oct, [facility] [place] [facility] [address] [id number], [place] [address]- 1840 Oct, [facility] [place] [facility] [address] [id number] [place] [address]- 6233 Oct, [facility] [place] [facility] [address] [id number], [place] [address]- 6844 Oct, [facility] [place] [facility] [address] [id number] [place] [address]- 5088 Oct, [facility] [place] [facility] [address] [id number] [place] [address]- 2565 Oct, [facility] [address] [id number] [place] [address]- 6430 Sep, [facility] [address] [id number] [place] [address]- 6206 August, [facility] [address] [id number] [place] [address]- 4960 August, [facility] [address] [id number] [place] [address]- 7821 August, [facility] [address] [id number] [place] [address]- 2287 August, [facility] [address] [id number] [place] [address]- 3736 August, [facility] [address] [id number] [place] [address]- 6098 May, [facility] [address] [id number] [place] [address]- 9168 Apr, [facility] [address] [id number] [place] [address]- 6885 Apr, [facility] [address] [id number] [place] [address]- 8271 Apr, [facility] [address] [id number] [place] [address]- 8679 Apr, [facility] [address] [id number] [place] [address]- 5302 Apr, [facility] [address] [place] [id number] Mar, [facility] [address] [id number] [place] [address]- 9816 Mar, [facility] [address] [id number] [place] [address]- 8582 Mar, [facility] [address] [id number] [place] [address]- 6150 19 Mar, 2012 [facility] [address] [id number] [place] [address]- 8056 17 Mar, 2012 [facility] [place] [facility] [address] [id number] [place] [address]- 1356 17 Mar, 2012 [facility] [address] [id number] [place] [address]- 3446 13 Mar, 2012 [facility] [place] [facility] [address] [id number] [place] [address]- 0946 13 Mar, 2012 [facility] [address] [id number] [place] [address]- 2676 13 Mar, 2012 [facility] [place] [facility] [address] [id number] [place] [address]- 6090 13 Mar, 2012 [facility] [address] [id number] [place] [address]- 5838 12 Mar, 2012 [facility] [address] [id number] [place] [address]- 6735 12 Mar, 2012 [facility] [place] [facility] [address] [id number] [place] [address]- 0646 Mar, [facility] [address] [id number] [place] [address]- 6441 10 Mar, 2012 [facility] [place] [facility] [address] [id number] [place] [address]- 4696 07 Mar, 2012 [facility] [place] [facility] [address] [id number] [place] [address]- 9246 07 Mar, 2012 [facility] [place] [facility] [address] [id number] [place] [address]- 4696 06 Mar, 2012 [facility] [place] [facility] [address] [id number] [place] [address]- 4986 06 Mar, 2012 [facility] [place] [facility] [address] [id number] [place] [address]- 8272 Mar, [facility] [place] [facility] [address] [id number] [place] [address]- 8290 Mar, [facility] [place] [facility] [address] [id number] [place] [address]- 2120 Feb, [facility] [place] [facility] [address] [id number] [place] [address]- 8978 Feb, [facility] [place] [facility] [address] [id number] [place] [address]- 3773 Feb, [facility] [place] [facility] [address] [id number] [place] [address]- 1746 Feb, [facility] [place] [facility] [address] [id number] [place] [address]- 3170 Jan, [facility] [place] [facility] [address] [id number] [place] [address]- 5054 Jan, [facility] [place] [facility] [address] [id number], [place] [address]- 8676 Jan, [facility] [place] [facility] [address] [id number] [place] [address]- 7038 Jan, [facility] [place] [facility] [address] [facility] [id number], [place] [address]- 3533 Jan, [facility] [place] [facility] [address] [id number], [place] [address]- 0942 Jan, [facility] [place] [facility] [address] [id number], [place] [address]- 3274 Jan, [facility] [place] [facility] [address] [id number], [place] [address]- 7527 Jan, [facility] [place] [facility] [address] [id number], [place] [address]- 3644 Jan, [facility] [place] [facility] [address] [facility] [id number] [place] [address]- 6038 Dec, [facility] [place] [facility] [address] [id number] [place] [address]- 2106 14 Dec, 2011 [facility] [place] [facility] [address] [id number] [place] [address]- 1663 12 Dec, 2011 [facility] [place] [facility] [address] [id number] [place] [address]- 7536 06 Dec, 2011 [facility] [place] [facility] [address] [id number] [place] [address]- 0666 06 Dec, 2011 [facility] [place] [facility] [address] [id number] [place] [address]- 7094 Nov, [facility] [place] [facility] [address] [id number] [place] [address]- 6677 Nov, [facility] [place] [facility] [address] [id number] [place] [address]- 1328 Nov, [facility] [place] [facility] [address] [id number] [place] [address]- 6482 Nov, [facility] [place] [facility] [address] [id number] [place] [address]- 1888 Nov, [facility] [place] [facility] [address] [id number] [place] [address]- 7566 Nov, [facility] [place] [facility] [address] [id number] [place] [address]- 3546 Nov, [facility] [place] [facility] [address] [id number] [place] [address]- 3202 Nov, [facility] [place] [facility] [address] [id number] [place] [address]- 2397 Nov, [facility] [place] [facility] [address] [id number] [place] [address]- 8562 Oct, [facility] [place] [facility] [address] [id number] [place] [address]- 5407 Oct, [facility] [place] [facility] [address] [id number] [place] [address]- 8857 14 Sep, 2011 [facility] [place] [facility] [address] [id number] [place] [address]- 5168 13 Sep, 2011 [facility] [place] [facility] [address] [id number] [place] [address]- 5800 05 Sep, 2011 [facility] [place] [facility] [address] [id number] [place] [address]- 0425 14 Aug, 2011 [facility] [place] [facility] [address] [id number] [place] [address]- 1513 30 Jul, 2011 [facility] [place] [facility] [address] [id number] [place] [address]- 2466 27 Jul, 2011 [facility] [place] [facility] [address] [id number] [place] [address]- 5097 27 Jul, 2011 [facility] [place] [facility] [address] [id number] [place] [address]- 3053 18 Jul, 2011 [facility] [place] [facility] [address] [id number] [place] [address]- 6819 16 Jul, 2011 [facility] [place] [facility] [address] [id number] [place] [address]- 3661 16 Jul, 2011 [facility] [place] [facility] [address] [id number] [place] [address]- 2919 16 Jul, 2011 [facility] [place] [facility] [address] [id number] [place] [address]- 8008 14 Jul, 2011 [facility] [place] [facility] [address] [id number] [place] [address]- 2620 12 Jul, 2011 [facility] [place] [facility] [address] [id number] [place] [address]- 5594 19 Jun, 2011 [facility] [place] [facility] [address] [id number] [place] [address]- 6056 18 Jun, 2011 [facility] [place] [facility] [address] [id number] [place] [address]- 4727 15 Jun, 2011 [facility] [place] [facility] [address] [id number] [place] [address]- 2650 Jun, [facility] [address] [id number] [place] [address]- 6245 Jun, [facility] [place] [facility] [address] [id number] [place] [address]- 5665 Jun, [facility] [place] [facility] [address] [id number] [place] [address]- 7822 Jun, [facility] [place] [facility] [address] [id number] [place] [address]- 6724 Jun, [facility] [place] [facility] [address] [id number] [place] [address]- 6926 May, [facility] [place] [facility] [address] [id number] [place] [address]- 5784 May, [facility] [address] [id number] [place] [address]- 9194 May, [facility] [place] [facility] [address] [id number] [place] [address]- 7718 Apr, [facility] [address] [id number] [place] [address]- 6612 Apr, [facility] [place] [facility] [address] [id number] [place] [address]- 2605 Apr, [facility] [address] [id number] [place] [address]- 3483 Mar, [facility] [place] [facility] [address] [id number] [place] [address]- 6003 Mar, [facility] [place] [facility] [address] [id number] [place] [address]- 3079 15 Mar, 2011 [facility] [place] [facility] [address] [id number] [place] [address]- 5151 13 Mar, 2011 [facility] [place] [facility] [address] [id number] [place] [address]- 8234 Mar, [facility] [place] [facility] [address] [id number] [place] [address]- 9636 12 Mar, 2011 [facility] [address] [id number] [place] [address]- 4969 Mar, [facility] [place] [facility] [address] [id number] [place] [address]- 1508 Mar, [facility] [address] [id number] [place] [address]- 2684 08 Mar, 2011 [facility] [place] [facility] [address] [id number] [place] [address]- 8196 Mar, [facility] [address] [id number] [place] [address]- 0760 Mar, [facility] [address] [id number] [place] [address] Mar, [facility] [place] [facility] [address] [id number] [place] [address] Mar, [facility] [address] [id number] [place] [address] Mar, [facility] [place] [facility] [address] [id number] [place] [address] Feb, [facility] [address] [id number] [place] [address] Feb, [facility] [place] [facility] [address] [id number] [place] [address] Feb, [facility] [place] [facility] [address] [id number] [place] [address] Jan, [facility] [place] [facility] [address] [id number] [place] [address] Jan, [facility] [place] [facility] [address] [id number] [place] [address] Oct, [facility] [place] [facility] [address] [id number] [place] [address] Sep, [facility] [address] [facility] [id number], [place] [address] Mar, [facility] [address] [facility] [id number], [place] [address] Mar, [facility] [address] [facility] [id number], [place] [address] Feb, [facility] [address] [facility] [id number], [place] [address] Feb, [facility] [address] [facility] [id number], [place] [address] Jan, [facility] [address] [facility] [id number] [address] Jan, [facility] [id number], [place] [address] Mar, [facility] [address] [id number], [place] [address] Feb, [facility] [address] [facility] [id number], [place] [address] Feb, [facility] [address] [id number], [place] [address] Feb, [facility] [id number], [place] [address] Feb, [facility] [address] [id number], [place] [address] Jan, [facility] [address] [id number], [place] [address] Dec, [facility] [id number], [place] [address] Nov, IMMUNIZATIONS No Known Immunizations SOCIAL HISTORY Never Assessed REASON FOR VISIT Stop Insulin Start Glimeperide PLAN OF CARE VITAL SIGNS MEDICATIONS Medication Instructions Dosage Frequency Start Date End Date Duration Status Glimepiride 4 MG Orally Once a day 1 tablet with breakfast or the first main meal of the day 24h Sep, 30 day(s) Active RESULTS No Results PROCEDURES No Known procedures INSTRUCTIONS MEDICATIONS ADMINISTERED No Known Medications MEDICAL (GENERAL) HISTORY Type Description Date Hospitalization History [facility] March 2015
--- OUTSIDE RECORDS SUMMARY | 2018-02-25 07:50 | XMS REPORT ---
Author Author STEPHANIE CHRISTIANSEN [facility] Address [address] [place] [address] Care Team Providers Care Smooth Plater Name Role Phone STEPHANIE CHRISTIANSEN Unavailable PROBLEMS Type Condition ICD9-CM Code TKY40-OI Code Onset Dates Condition Status SNOMED Code Problem Hyperlipidemia, unspecified hyperlipidemia type E78.5 Active 22072364 Problem Long-term insulin use Z79.4 Active 054755003 Problem Abnormal carotid ultrasound R93.8 Active 737090329 Problem Type 2 diabetes mellitus with complication E11.8 Active 86985712 Problem Positive TB test R76.11 Active 178541513 Problem Vascular dementia with behavior disturbance F01.51 Active 254284506 Problem PVD (peripheral vascular disease) I73.9 Active 592061750 Problem Pain R52 Active 97838733 Problem Other chronic osteomyelitis of left foot M86.672 Active 199992773 Problem Nicotine dependence, unspecified, uncomplicated F17.200 Active 806054468 Problem Peripheral vascular disease due to secondary diabetes E13.51 Active 5762673 Problem Nonintractable epilepsy without status epilepticus, unspecified epilepsy type G40.909 Active 887869745 Problem Recurrent major depressive disorder, remission status unspecified F33.9 Active 46694593 Problem Anxiety F41.9 Active 95374383 Problem Generalized anxiety disorder F41.1 Active 30198310 Problem Vascular dementia F01.50 Active 727630455 Problem Pseudobulbar affect F48.2 Active 91967737 Problem Coronary artery disease involving [place] coronary artery of [place] heart without angina pectoris I25.10 Active 6359288331992 Problem Gastroesophageal reflux disease without esophagitis K21.9 Active 067835568 Problem Cerebrovascular accident (CVA) due to other mechanism I63.8 Active 789413130 Problem Pulmonary emphysema, unspecified emphysema type J43.9 Active 96572744 Problem Neuropathy G62.9 Active 086997728 Problem Depression F32.9 Active 18860260 Problem Essential hypertension I10 Active 91778957 Problem Acquired hypothyroidism E03.9 Active 091115669 ALLERGIES No Information ENCOUNTERS Encounter Location Date Diagnosis [facility] [id number] [place] [address] 66359- 3522 Oct, Generalized anxiety disorder F41.1 [facility] [id number] [place] [address] 99914- 5539 Oct, Generalized anxiety disorder F41.1 [facility] [address] [id number] Oct, Sepsis, due to unspecified organism A41.9 ; Generalized anxiety disorder F41.1 ; Pain R52 and Depression F32.9 [facility] [id number] [place] [address] 92364- 7406 Oct, [facility] [id number] [place] [address] 39331- 5224 Oct, [facility] [id number] [place] [address] 26241- 7634 Sep, Generalized anxiety disorder F41.1 [facility] [id number] [place] [address] 69174- 1044 Sep, [facility] [id number] [place] [address] 16035- 0076 Sep, Type 2 diabetes mellitus with complication E11.8 [facility] [id number] [place] [address] 25990- 6816 August, Generalized anxiety disorder F41.1 [facility] [id number] [place] [address] 19909- 7245 August, [facility] [address] [id number] August, Type 2 diabetes mellitus with complication E11.8 ; Vascular dementia with behavior disturbance F01.51 ; Long-term insulin use Z79.4 and Nicotine dependence, unspecified, uncomplicated F17.200 [facility] [address] [place] [address] 05730- 5437 August, Generalized anxiety disorder F41.1 [facility] [id number], [place] [address] 7106 Jul, Generalized anxiety disorder F41.1 [facility] [id number] [address] Jun, Generalized anxiety disorder F41.1 [facility] [id number] [id number] Jun, [facility] [id number] [place] [address] [id number] May, [facility] [address], [place] [address] 2546 May, [facility] [id number] [place] [address] [id number] May, Generalized anxiety disorder F41.1 [facility] [address] [place] [address] 84090- 0606 Apr, [facility] [address] [facility] [address] [place] [id number] Apr, Other chronic osteomyelitis of left foot M86.672 ; Type 2 diabetes mellitus with complication E11.8 ; Vascular dementia F01.50 ; Long-term insulin use Z79.4 ; PVD (peripheral vascular disease) I73.9 and Nicotine abuse 305.1 [facility] [id number], [place] [address] 4410 Apr, [facility] [id number] [id number] Apr, [facility] [id number], [place] [address]- 5425 Apr, Pain R52 and Generalized anxiety disorder F41.1 [facility] [address], [place] [address]- 1766 Mar, [facility] [id number], [place] [address]- 2957 Mar, Pain R52 and Generalized anxiety disorder F41.1 [facility] [address] [place] [id number] Feb, Depression F32.9 ; Type 2 diabetes mellitus with complication E11.8 and Nicotine dependence, unspecified, uncomplicated F17.200 [facility] [id number] [place] [address] 95575- 9233 Feb, Generalized anxiety disorder F41.1 and Pain R52 [facility] [id number] [place] [address] 63516- 1198 Feb, [facility] [id number] [place] [address] 71366- 7474 Jan, [facility] [address] 01020- 4717 Jan, Generalized anxiety disorder F41.1 and Pain R52 [facility] [id number] [place] [address] 77107- 8423 Jan, [facility] [id number] [place] [address] [id number] Dec, Generalized anxiety disorder F41.1 and Pain R52 [facility] [address] [place] [id number] Dec, Vascular dementia F01.50 ; Pain of left leg M79.605 ; Pain in right leg M79.604 and Type 2 diabetes mellitus with complication E11.8 [facility] [id number] [place] [address] 63661- 4756 Dec, Pain R52 [facility] [id number] [place] [address] 43289- 5911 Dec, [facility] [id number] [place] [address] 27394- 4663 Nov, [facility] [id number] [place] [address] 69852- 0150 Nov, Pain R52 and Generalized anxiety disorder F41.1 [facility] [address] [place] [id number] Aug, 2017 Depression F32.9 ; Vascular dementia with behavior disturbance F01.51 and Anxiety F41.9 [facility] [id number] [place] [address] 19299- 5061 Nov, Pain R52 and Generalized anxiety disorder F41.1 [facility] [id number] [place] [address] 02896- 0726 Oct, Generalized anxiety disorder F41.1 [facility] [id number] [place] [address] 85514- 7190 Oct, Pain R52 [facility] [id number] [place] [address] 85661- 5012 Sep, [facility] [address] [facility] [place] [id number] Sep, Generalized anxiety disorder F41.1 [facility] [id number] [place] [address] 90724- 3926 Sep, Pain R52 [facility] [id number] [place] [address] 01872- 0863 Sep, Generalized anxiety disorder F41.1 [facility] [id number] [place] [address] 28228- 8505 August, [facility] [id number] [place] [address] 79509- 5183 August, [facility] [id number] [place] [address] 70374- 1319 August, Pain R52 [facility] [id number] [place] [address] 34577- 4288 August, Generalized anxiety disorder F41.1 [facility] [address] [id number] August, Generalized anxiety disorder F41.1 [facility] [id number] [place] [address] 54656- 3159 Jul, Pain R52 [facility] [id number] [place] [address] [id number]- 6886 Jul, [facility] [id number] [place] [address] [id number] Jul, [facility] [id number] [place] [address] 680846- 5016 Jun, [facility] [id number] [place] [address] [id number] Jun, Depression F32.9 [facility] [id number] [place] [address] 84471- 6959 Jun, Pain R52 [facility] [id number] [place] [address] 52548- 8532 Jun, [facility] [address] [place] [id number] Jun, Vascular dementia F01.50 and Depression F32.9 [facility] [id number] [place] [address] 07876- 9397 May, Pain R52 [facility] [id number] [place] [address] 29288- 4671 May, [facility] [id number] [place] [address] 94146- 9242 May, Pseudobulbar affect F48.2 [facility] [id number] [place] [address] 80907- 5294 May, [facility] [id number] [place] [address] 23014- 0028 May, PVD (peripheral vascular disease) I73.9 [facility] [id number] [place] [address] 33209- 4529 08 May, 2016 Vascular dementia with behavior disturbance F01.51 [facility] [address] [place] [address] 49544- 0713 02 May, 2016 Vascular dementia with behavior disturbance F01.51 [facility] [id number] [place] [address] 20246- 2235 Apr, [facility] [id number] [place] [address] 57126- 0211 Apr, Pain R52 [facility] [address] [place] [id number] Apr, Generalized anxiety disorder F41.1 ; PVD (peripheral vascular disease) I73.9 and Type 2 diabetes mellitus with complication E11.8 [facility] [id number] [place] [address] 98475- 9582 Apr, Vascular dementia with behavior disturbance F01.51 [facility] [id number] [place] [address] 22886- 8014 Apr, [facility] [id number] [place] [address] 85417- 6961 Apr, Vascular dementia with behavior disturbance F01.51 [facility] [id number] [place] [address] 05268- 9727 Apr, [facility] [id number] [place] [address] [id number] Mar, [facility] [id number] [place] [address] 08526- 9191 Mar, Type 2 diabetes mellitus with complication E11.8 ; Vascular dementia with behavior disturbance F01.51 and Depression F32.9 [facility] [id number] [place] [address] 82317- 8925 Mar, [facility] [id number] [place] [address] 33150- 3569 Feb, [facility] [id number] [place] [address] 64566- 5868 Feb, Viral illness B34.9 [facility] [id number] [place] [address] 07055- 9695 Jan, Diabetes 250.00 [facility] [id number] [place] [address] 90048- 9939 Jan, [facility] [address] [facility] [id number], [place] [address]- 9102 Jan, [facility] [address] [facility] [id number], [place] [address]- 1751 Jan, [facility] [address] [id number] Jan, Vascular dementia with behavior disturbance F01.51 and Type 2 diabetes mellitus with complication E11.8 [facility] [address] [facility] [id number], [place] [address]- 4574 Jan, Pain R52 [facility] [address] [facility] [id number] [place] [address] 88541- 1174 Jan, Pain R52 [facility] [address], [place] [address]- 9977 Dec, [facility] [address], [place] [address]- 7548 Nov, [facility] [address] [place] [id number] Nov, Type 2 diabetes mellitus with complication E11.8 [facility] [address], [place] [address]- 6231 Nov, [facility] [address], [place] [address]- 0506 Oct, [facility] [address], [place] [address]- 5926 Oct, [facility] [address], [place] [address]- 1166 Oct, Vascular dementia with behavior disturbance F01.51 and Type 2 diabetes mellitus with complication E11.8 [facility] [address], [place] [address]- 3518 August, Type 2 diabetes mellitus with complication E11.8 and Vascular dementia with behavior disturbance F01.51 [facility] [address], [place] [address]- 2251 August, Vascular dementia F01.50 [facility] [address], [place] [address]- 0756 August, Vascular dementia with behavior disturbance F01.51 [facility] [address], [place] [address]- 2546 Jul, Vascular dementia with behavior disturbance F01.51 [facility] [address], [place] [address]- 5356 Jun, Vascular dementia F01.50 [facility] [address], [place] [address]- 0638 Jun, Type 2 diabetes mellitus with complication E11.8 ; Long- term insulin use Z79.4 and Vascular dementia with behavior disturbance F01.51 [facility] [address], [place] [address]- 5347 Jun, Vascular dementia with behavior disturbance F01.51 [facility] [address], [place] [address]- 2310 Jun, Vascular dementia F01.50 [facility] [facility] [address], [place] [address]- 4725 Apr, [facility] [address], [place] [address]- 9586 Apr, [place] [address], [place] [address]- 0655 Apr, [place] [address], [place] [address]- 2879 Apr, Type 2 diabetes mellitus with complication E11.8 ; Depression F32.9 and Long-term insulin use Z79.4 [facility] [id number], [place] [address]- 2542 Mar, [facility] [address] [place] [id number] Mar, Depression F32.9 ; Type 2 diabetes mellitus with complication E11.8 and Long-term insulin use Z79.4 [facility] [address], [place] [address]- 0084 Feb, [facility] [address]- 8676 Feb, Hyperthyroidism E05.90 [facility] [address], [place] [address]- 8806 Feb, Hyperthyroidism E05.90 [facility] [address] [place] [address] 95809- 3234 Feb, [facility] [address] [place] [address] 95962- 1907 Jan, [facility] [address], [place] [address]- 1140 Dec, Nicotine addiction 305.1 [facility] [id number] [place] [address] 31915- 1929 Oct, Nicotine abuse 305.1 [facility] [address], [place] [address]- 6420 Oct, [facility] [address] [place] [address] 83901- 3961 August, [place] [address] [place] [id number] August, History of drug abuse 305.93 and Diabetes 250.00 [facility] [address], [place] [address]- 4380 Jul, [facility] [address], [place] [address]- 8815 Jul, [facility] [address]- 7027 Jun, [facility] [id number], [place] [address]- 8123 Jun, [facility] [address] [place] [address] [place] [address]- 2439 Jun, [facility] [address] [id number] [place] [address]- 2415 Jun, [facility] [address] [id number] [place] [address]- 3613 Jun, [facility] [address] [id number] [place] [address]- 3790 Jun, [facility] [place] [facility] [address] [id number] [place] [address]- 6843 May, [facility] [address] [id number] [place] [address]- 2549 May, [facility] [address] [id number] [place] [address]- 6615 May, [facility] [address] [id number] [place] [address]- 7874 May, [facility] [address] [id number], [place] [address]- 9465 May, [facility] [address] [id number], [place] [address]- 0028 Apr, [facility] [address] [id number], [place] [address]- 3732 Apr, [address] [place] [id number] Apr, [facility] [address] [id number], [place] [address]- 2430 Apr, [facility] [place] [facility] [address] [id number], [place] [address]- 8628 Apr, [facility] [place] [facility] [address] [id number], [place] [address]- 8820 Apr, [facility] [place] [facility] [address] [id number], [place] [address]- 3144 Apr, [facility] [place] [facility] [address] [id number] [place] [address]- 5306 Apr, [facility] [address] [id number] [place] [address]- 4167 Mar, [facility] [place] [facility] [address] [id number] [place] [address]- 2191 Mar, [facility] [address] [id number] [place] [address]- 7317 Mar, [facility] [place] [facility] [address] [id number] [place] [address]- 7820 Mar, [facility] [place] [facility] [address] [id number] [place] [address]- 0031 Mar, [facility] [address] [id number] [place] [address]- 5966 Mar, [facility] [address] [id number] [place] [address]- 1838 Mar, [facility] [address] [id number] [place] [address]- 2017 Mar, [facility] [address] [id number] [place] [address]- 7500 Feb, [facility] [address] [id number] [place] [address]- 7788 Feb, [facility] [address] [id number] [place] [address]- 7381 Feb, [facility] [address] [id number] [place] [address]- 6564 Feb, [facility] [place] [facility] [address] [id number] [place] [address]- 3836 Feb, [facility] [address] [place] [id number] Feb, [facility] [place] [facility] [address] [id number] [place] [address]- 3187 Feb, [facility] [place] [facility] [address] [id number] [place] [address]- 2568 Feb, [facility] [place] [facility] [address] [id number] [place] [address]- 2032 Feb, [facility] [place] [facility] [address] [id number] [place] 1097 Feb, [facility] [place] [facility] [address] [id number] [place] [address]- 5329 Jan, [facility] [place] [facility] [address] [id number] [place] [address]- 7494 30 Jan, 2014 [facility] [place] [facility] [address] [id number] [place] [address]- 8659 Jan, [facility] [place] [facility] [address] [id number] [place] [address]- 2137 17 Jan, 2014 [facility] [place] [facility] [address] [id number] [place] [address]- 0757 16 Jan, 2014 [facility] [place] [facility] [address] [id number] [place] [address]- 4535 16 Jan, 2014 [facility] [place] [facility] [address] [id number] [place] [address]- 3078 15 Jan, 2014 [facility] [place] [facility] [address] [id number], [place] [address]- 7607 13 Jan, 2014 [facility] [place] [facility] [address] [id number], [place] [address]- 2377 Jan, [facility] [place] [facility] [address] [id number] [place] [address]- 3713 Jan, [facility] [place] [facility] [address] [id number] [place] [address]- 5451 Jan, [facility] [place] [facility] [address] [id number][place] 4986 09 Jan, 2014 [facility] [place] [facility] [address] [id number], [place] [address]- 2800 09 Jan, 2013 [facility] [place] [facility] [address] [id number] [place] [address] 08 Jan, 2013 [facility] [place] [facility] [address] [id number] [place] [address] 08 Jan, 2013 [facility] [place] [facility] [address] [id number] [place] [address] Jan, 2013 [facility] [place] [facility] [address] [id number] [place] [address] Jan, 2013 [facility] [place] [facility] [address] [id number] [place] [address] Sep, 2013 [facility] [place] [facility] [address] [id number] [place] [address] 19 Sep, 2013 [facility] [place] [facility] [address] [id number] [place] [address] 11 Sep, 2013 [facility] [place] [facility] [address] [id number] [place] [address] 11 Sep, 2013 [facility] [place] [facility] [address] [id number] [place] [address] 09 Sep, 2013 [facility] [place] [facility] [address] [id number], [place] [address] 09 Sep, 2013 [facility] [place] [facility] [address] [id number], [place] [address] 08 Sep, 2013 [facility] [place] [facility] [address] [id number], [place] [address] 08 Sep, 2013 [facility] [place] [facility] [address] [id number], [place] [address] 08 Sep, 2013 [facility] [place] [facility] [address] [id number], [place] [address] 08 Sep, 2013 [facility] [place] [facility] [address] [id number] [place] [address]- [address] 05 Sep, 2013 [facility] [place] [facility] [address] [id number] [place] [address] Dec, [facility] [place] [facility] [address] [id number] [place] [address] Dec, [facility] [place] [facility] [address] [id number] [place] [address] Dec, [facility] [place] [facility] [address] [id number] [place] [address] Nov, [facility] [place] [facility] [address] [id number] [place] [address] Nov, [facility] [place] [facility] [address] [id number] [place] [address] Nov, [facility] [place] [facility] [address] [id number] [place] [address] Nov, [facility] [place] [facility] [address] [id number] [place] [address] Nov, [facility] [place] [facility] [address] [id number] [place] [address] Nov, [facility] [place] [facility] [address] [id number] [place] [address] Nov, [facility] [facility] [address] [id number] [place] [address] Nov, [facility] [place] [facility] [address] [id number] [place] [address] 98[address] Nov, [facility] [place] [facility] [address] [id number] [place] [address] 9794 Nov, [facility] [place] [facility] [address] [id number] [place] [address] 8328 Nov, [facility] [place] [facility] [address] [id number] [place] [address]- 0365 Nov, [facility] [place] [facility] [address] [id number] [place] [address]- 3523 Nov, [facility] [place] [facility] [address] [id number] [place] [address]757 Nov, [facility] [place] [facility] [address] [id number] [place] [address] Oct, [facility] [place] [facility] [address] [id number] [place] [address] 7976 Oct, [facility] [place] [facility] [address] [id number] [place] [address] 9098 Oct, [facility] [place] [facility] [address] [id number] [place] [address] 8168 Oct, [facility] [place] [facility] [address] [id number] [place] [address]- 0430 Oct, [facility] [place] [facility] [address] [id number] [place] [address] 1246 Oct, [facility] [place] [facility] [address] [id number] [place] [address]- 4057 Oct, [facility] [place] [facility] [address] [id number] [place] [address]- 0814 Oct, [facility] [place] [facility] [address] [id number] [place] [address]- 2816 Oct, [facility] [place] [facility] [address] [id number] [place] [address]- 2356 Oct, [facility] [place] [facility] [address] [id number] [place] [address]- 9974 Oct, [facility] [place] [facility] [address] [id number] [place] [address]- 7032 Oct, [facility] [place] [facility] [address] [id number] [place] [address]- 0923 Oct, [facility] [place] [facility] [address] [id number] [place] [address]- 0805 Oct, [facility] [place] [facility] [address] [id number] [place] [address]- 4542 Oct, [facility] [place] [facility] [address] [id number] [place] [address]- 1432 Oct, [facility] [place] [facility] [address] [id number] [place] [address]- 3352 Oct, [facility] [place] [facility] [address] [id number] [place] [address]- 8176 Oct, [facility] [place] [facility] [address] [id number] [place] [address]- 8769 Oct, [facility] [place] [facility] [address] [id number] [place] [address]- 0517 Oct, [facility] [address] [id number] [place] [address]- 7614 Sep, [facility] [place] [address] [id number] [place] [address] 1975 Sep, [facility] [place] [facility] [address] [id number] [place] [address]- 0746 Sep, [facility] [place] [facility] [address] [id number] [place] [address]- 3595 Sep, [facility] [place] [facility] [address] [id number] [place] [address]- 9149 Sep, [facility] [place] [facility] [address] [id number] [place] [address]- 9394 Sep, [facility] [place] [facility] [address] [id number] [place] [address]- 7824 August, [facility] [place] [facility] [address] [id number] [place] [address]- 0448 August, [facility] [place] [facility] [address] [id number] [place] [address]- 0547 Jul, [facility] [place] [address] [id number] [place] [address]- 9704 Jul, [facility] [place] [facility] [address] [id number] [place] [address]- 4963 Jul, [facility] [place] [facility] [address] [id number] [place] [address] Jul, [facility] [address] [id number] [place] [address]- 8617 Jul, [facility] [address] [id number] [place] [address]- 3540 Jul, [facility] [address] [id number] [place] [address]- 1473 Jul, [facility] [address] [id number] [place] [address]- 4392 Jul, [facility] [address] [facility] [id number] [place] [address]- 7501 Jun, [facility] [address] [id number] [place] [address]- 1519 Jun, [facility] [address] [id number] [place] [address]- 2476 Jun, [facility] [address] [id number] [place] [address] Jun, [facility] [address] [facility] [id number] [place] [address]- 3381 Jun, [facility] [address] [id number] [place] [address]- 7445 May, [facility] [address] [id number] [place] [address]- 2954 May, [facility] [address] [id number] [place] [address]- 4937 May, [facility] [facility] [address] [id number] [place] [address] May, [facility] [address] [id number] [place] [address]- 9534 May, [facility] [address] [id number] [place] [address]- 0196 May, [facility] [place] [facility] [address] [id number] [place] [address]- 7506 May, [facility] [address] [id number] [place] [address]- 7596 May, [facility] [address] [id number] [place] [address]- 7536 May, [facility] [address] [id number] [place] [address]- 9416 May, [facility] [address] [facility] [id number] [place] [address]- 3856 May, [facility] [address] [facility] [id number] [place] [address]- 6232 Apr, [facility] [address] [facility] [id number] [place] [address]- 7283 Apr, [facility] [address] [facility] [id number] [place] [address]- 1291 Mar, [facility] [address] [facility] [id number] [place] [address]- 7163 Mar, [facility] [address] [facility] [id number] [place] [address] 2546 Mar, [facility] [address] [facility] [id number] [place] [address] 2546 Mar, [facility] [address] [id number] [place] [address] 2546 Mar, [facility] [address] [facility] [id number] [place] [address]- 2546 Jan, [facility] [address] [id number] [place] [address]- 7260 Jan, [facility] [address] [id number] [place] [address]- 9852 Jan, [facility] [address] [id number] [place] [address]- 7445 Jan, [facility] [address] [id number] [place] [address]- 2492 Jan, [facility] [address] [id number] [place] [address]- 3200 Jan, [facility] [address] [id number] [place] [address]- 3500 Jan, [facility] [address] [id number] [place] [address]- 2596 Jan, [facility] [address] [id number] [place] [address]- 1663 Jan, [facility] [address] [id number] [place] [address]- 2700 Jan, [facility] [address] [id number] [place] [address]- 6146 Dec, [facility] [address] [id number] [place] [address]- 8000 Oct, [facility] [address] [id number] [place] [address]- 9496 Oct, [facility] [address] [id number] [place] [address]- 6857 Oct, [facility] [address] [id number] [place] [address]- 7568 Oct, [facility] [address] [id number] [place] [address]- 9840 Oct, [facility] [address] [id number] [place] [address]- 0305 Oct, [facility] [address] [id number], [place] [address] 9530 Sep, [facility] [address] [id number] [place] [address]- 5055 August, [facility] [address] [id number] [place] [address]- 5523 August, [facility] [address] [id number] [place] [address]- 2933 August, [facility] [address] [id number] [place] [address]- 3644 August, [facility] [address] [id number] [place] [address]- 6718 August, [facility] [address] [id number] [place] [address]- 9931 May, [facility] [address] [id number] [place] [address]- 0550 Apr, [facility] [address] [id number] [place] [address]- 3866 Apr, [facility] [address] [id number] [place] [address]- 1413 Apr, [facility] [address] [id number] [place] [address]- 1851 Apr, [facility] [address] [id number], [place] [address]- 5233 Apr, [facility] [address] [place] [id number] Mar, [facility] [address] [id number] [place] [address]- 5704 Mar, [facility] [address] [id number] [place] [address]- 5151 Mar, [facility] [address] [id number] [place] [address]- 8398 Mar, [facility] [address] [id number] [place] [address]- 0456 17 Mar, 2012 [facility] [address] [id number] [place] [address]- 8156 17 Mar, 2012 [facility] [address] [id number] [place] [address]- 8556 13 Mar, 2012 [facility] [address] [id number] [place] [address]- 0616 13 Mar, 2012 [facility] [address] [id number] [place] [address]- 8546 13 Mar, 2012 [facility] [address] [id number] [place] [address]- 4016 13 Mar, 2012 [facility] [address] [id number] [place] [address]- 1536 12 Mar, 2012 [facility] [address] [id number] [place] [address]- 3246 12 Mar, 2012 [facility] [address] [id number] [place] [address]- 3607 10 Mar, 2012 [facility] [address] [id number] [place] [address]- 5376 10 Mar, 2012 [facility] [address] [id number] [place] [address]- 9826 07 Mar, 2012 [facility] [address] [id number] [place] [address]- 9446 07 Mar, 2012 [facility] [address] [id number] [place] [address] 2546 06 Mar, 2012 [facility] [address] [id number] [place] [address]- 6896 06 Mar, 2012 [facility] [address] [id number] [place] [address]- 3666 05 Mar, 2012 [facility] [address] [id number] [place] [address]- 0456 05 Mar, 2012 [facility] [address] [id number] [place] [address]- 1112 Feb, [facility] [address] [id number] [place] [address]- 3200 Feb, [facility] [address] [id number] [place] [address]- 3403 Feb, [facility] [address] [id number] [place] [address]- 9756 Feb, [facility] [address] [id number] [place] [address]- 9835 Jan, [facility] [address] [id number] [place] [address]- 2027 Jan, [facility] [facility] [address] [id number] [place] [address]- 2841 Jan, [facility] [place] [facility] [address] [id number] [place] [address]- 5610 Jan, [facility] [place] [facility] [address] [id number] [place] [address]- 3958 Jan, [facility] [place] [facility] [address] [id number] [place] [address]- 8433 Jan, [facility] [place] [facility] [address] [id number] [place] [address]- 7062 Jan, [facility] [place] [facility] [address] [id number] [place] [address]- 0781 Jan, [facility] [place] [address] [id number] [place] [address]- 9521 Jan, [facility] [place] [facility] [address] [id number] [place] [address]- 5236 27 Dec, 2011 [facility] [facility] [address] [id number] [place] [address]- 3419 14 Dec, 2011 [facility] [place] [facility] [address] [id number] [place] [address]- 8729 Dec, [facility] [place] [facility] [address] [id number] [place] [address]- 4110 Dec, [facility] [place] [facility] [address] [id number] [place] [address]- 8061 Dec, [facility] [place] [facility] [address] [id number] [place] [address]- 1029 Nov, [facility] [place] [facility] [address] [id number] [place] [address]- 2980 Nov, [facility] [place] [facility] [address] [id number] [place] [address]- 5558 Nov, [facility] [place] [facility] [address] [id number] [place] [address]- 6459 Nov, [facility] [place] [facility] [address] [id number] [place] [address]- 7991 Nov, [facility] [place] [facility] [address] [id number] [place] [address]- 6578 Nov, [facility] [place] [facility] [address] [id number] [place] [address]- 2182 Nov, [facility] [place] [facility] [address] [id number] [place] [address]- 9769 Nov, [facility] [place] [facility] [address] [id number] [place] [address]- 5815 Nov, [facility] [place] [facility] [address] [id number] [place] [address]- 6365 Oct, [facility] [place] [facility] [address] [id number] [place] [address]- 6739 Oct, [facility] [place] [facility] [address] [id number] [place] [address]- 3515 Sep, [facility] [place] [facility] [address] [id number] [place] [address]- 4639 Sep, [facility] [place] [facility] [address] [id number] [place] [address]- 9139 05 Sep, 2011 [facility] [address] [id number] [place] [address]- 6073 14 Aug, 2011 [facility] [address] [id number] [place] [address]- 4306 30 Jul, 2011 [facility] [address] [id number] [place] [address]- 3850 27 Jul, 2011 [facility] [address] [id number] [place] [address]- 8241 27 Jul, 2011 [facility] [address] [id number] [place] [address]- 2166 18 Jul, 2011 [facility] [address] [id number] [place] [address]- 6844 16 Jul, 2011 [facility] [address] [id number] [place] [address]- 8896 16 Jul, 2011 [facility] [address] [id number] [place] [address]- 3081 16 Jul, 2011 [facility] [address] [id number] [place] [address]- 6329 14 Jul, 2011 [facility] [address] [id number] [place] [address]- 4611 12 Jul, 2011 [facility] [address] [id number] [place] [address]- 5426 19 Jun, 2011 [facility] [address] [id number] [place] [address]- 6487 18 Jun, 2011 [facility] [place] [facility] [address] [id number] [place] [address]- 6453 15 Jun, 2011 [facility] [address] [id number] [place] [address]- 6382 12 Jun, 2011 [facility] [address] [id number] [place] [address]- 6233 Jun, [facility] [address] [id number] [place] [address]- 8220 08 Jun, 2011 [facility] [place] [facility] [address] [id number] [place] [address]- 2246 Jun, [facility] [place] [facility] [address] [id number] [place] [address]- 1563 Jun, [facility] [place] [facility] [address] [id number] [place] [address]- 4186 May, [facility] [address] [id number] [place] [address]- 0214 May, [facility] [place] [facility] [address] [id number] [place] [address]- 0297 May, [facility] [address] [id number] [place] [address]- 2878 Apr, [facility] [address] [id number] [place] [address]- 7002 Apr, [facility] [address] [id number] [place] [address]- 2617 Apr, [facility] [address] [id number] [place] [address]- 3054 Mar, [facility] [place] [facility] [address] [id number] [place] [address]- 4236 Mar, [facility] [place] [facility] [address] [id number], [place] [address]- 5287 15 Mar, 2011 [facility] [place] [facility] [address] [id number] [place] [address]- 5946 13 Mar, 2011 [facility] [place] [facility] [address] [id number] [place] [address]- 0785 Mar, [facility] [place] [facility] [address] [id number] [place] [address]- 6315 12 Mar, 2011 [facility] [place] [facility] [address] [id number] [place] 4534 12 Mar, 2011 [facility] [place] [facility] [address] [id number] [place] [address] 12 Mar, 2011 [facility] [place] [facility] [address] [id number] [place] [address] 08 Mar, 2011 [facility] [place] [facility] [address] [id number] [place] [address] Mar, [facility] [place] [facility] [address] [id number] [place] [address] Mar, [facility] [place] [facility] [address] [id number] [place] [address] Mar, [facility] [place] [facility] [address] [id number] [place] [address] Mar, [facility] [place] [facility] [address] [id number] [place] [address] Mar, [facility] [place] [facility] [address] [id number] [place] [address] Feb, [facility] [place] [facility] [address] [id number] [place] [address] Feb, [facility] [place] [facility] [address] [facility] [id number] [place] [address] Feb, [facility] [place] [facility] [address] [id number] [place] [address] Jan, [facility] [place] [facility] [address] [id number] [place] [address] Jan, [facility] [place] [facility] [address] [id number] [place] [address] Oct, [facility] [place] [facility] [address] [id number] [place] [address] Sep, [facility] [place] [facility] [address] [facility] [id number] [place] [address] Mar, [facility] [place] [facility] [address] [facility] [id number], [place] [address] Mar, [facility] [address] [facility] [id number], [place] [address] Feb, [facility] [address] [facility] [id number], [place] [address] Feb, [facility] [address] [facility] [id number] [place] [address] Jan, [facility] [address] [facility] [id number], [place] [address] Jan, [facility] [id number] [place] [address] Mar, [facility] [id number], [place] [address] Feb, [facility] [id number] [place] [address] Feb, [facility] [id number], [place] [address] Feb, [facility] [id number], [place] [address] Feb, [facility] [id number], [place] [address] Jan, [facility] [id number], [place] [address] Dec, [facility] [address] [id number], [place] [address] Nov, IMMUNIZATIONS No Known Immunizations SOCIAL HISTORY [...] (GENERAL) HISTORY Type Description Date Hospitalization History [facility] March 2015
--- OUTSIDE RECORDS SUMMARY | 2018-02-25 07:51 | XMS REPORT ---
Author Author STEPHANIE CHRISTIANSEN [facility] Address [address] [place] [address] Care Team Providers Care Conference Translator Name Role Phone STEPHANIE CHRISTIANSEN Unavailable PROBLEMS Type Condition ICD9-CM Code [id number] Code Onset Dates Condition Status SNOMED Code Problem Hyperlipidemia, unspecified hyperlipidemia type E78.5 Active 74098921 Problem Long-term insulin use Z79.4 Active 737521686 Problem Abnormal carotid ultrasound R93.8 Active 456803677 Problem Type 2 diabetes mellitus with complication E11.8 Active 83839284 Problem Positive TB test R76.11 Active 334336951 Problem Vascular dementia with behavior disturbance F01.51 Active 529751469 Problem PVD (peripheral vascular disease) I73.9 Active 400427001 Problem Pain R52 Active 81887535 Problem Other chronic osteomyelitis of left foot M86.672 Active 877529201 Problem Nicotine dependence, unspecified, uncomplicated F17.200 Active 249699450 Problem Peripheral vascular disease due to secondary diabetes E13.51 Active 9333465 Problem Nonintractable epilepsy without status epilepticus, unspecified epilepsy type G40.909 Active 822454612 Problem Recurrent major depressive disorder, remission status unspecified F33.9 Active 51333851 Problem Anxiety F41.9 Active 11042394 Problem Generalized anxiety disorder F41.1 Active 34908152 Problem Vascular dementia F01.50 Active 690115030 Problem Pseudobulbar affect F48.2 Active 90673416 Problem Coronary artery disease involving [place] coronary artery of [place] heart without angina pectoris I25.10 Active 7805445503362 Problem Gastroesophageal reflux disease without esophagitis K21.9 Active 488729917 Problem Cerebrovascular accident (CVA) due to other mechanism I63.8 Active 139723676 Problem Pulmonary emphysema, unspecified emphysema type J43.9 Active 82331480 Problem Neuropathy G62.9 Active 855996385 Problem Depression F32.9 Active 14823523 Problem Essential hypertension I10 Active 47656276 Problem Acquired hypothyroidism E03.9 Active 199057001 ALLERGIES No Information ENCOUNTERS Encounter Location Date Diagnosis [facility] [id number] [place] [address] 21420- 7882 Oct, Generalized anxiety disorder F41.1 [facility] [id number] [place] [address] 56919- 7855 Oct, Generalized anxiety disorder F41.1 [facility] [address] [id number] Oct, Sepsis, due to unspecified organism A41.9 ; Generalized anxiety disorder F41.1 ; Pain R52 and Depression F32.9 [facility] [id number] [place] [address] 13230- 4387 Oct, [facility] [id number] [place] [address] 48659- 7883 Oct, [facility] [id number] [place] [address] 65227- 9861 Sep, Generalized anxiety disorder F41.1 [facility] [id number] [place] [address] 50095- 3301 Sep, [facility] [id number] [place] [address] 96838- 2824 Sep, Type 2 diabetes mellitus with complication E11.8 [facility] [id number] [place] [address] 95235- 3962 August, Generalized anxiety disorder F41.1 [facility] [id number] [place] [address] 26462- 8186 August, [facility] [address] [id number] August, Type 2 diabetes mellitus with complication E11.8 ; Vascular dementia with behavior disturbance F01.51 ; Long-term insulin use Z79.4 and Nicotine dependence, unspecified, uncomplicated F17.200 [facility] [id number] [place] [address] 28874- 1307 August, Generalized anxiety disorder F41.1 [facility] [id number] [address] 8806 Jul, Generalized anxiety disorder F41.1 [facility] [id number] [place] [id number] Jun, Generalized anxiety disorder F41.1 [facility] [id number] [id number] Jun, [facility] [id number] [place] [address] [id number] May, [facility] [address] [address] 2546 May, [facility] [id number] [place] [address] [id number] May, Generalized anxiety disorder F41.1 [facility] [address] [place] [address] 48483- 0306 Apr, [facility] [address] [place] [id number] Apr, Other chronic osteomyelitis of left foot M86.672 ; Type 2 diabetes mellitus with complication E11.8 ; Vascular dementia F01.50 ; Long-term insulin use Z79.4 ; PVD (peripheral vascular disease) I73.9 and Nicotine abuse 305.1 [facility] [address] [id number] [address]- 4950 Apr, [facility] [id number] [id number] Apr, [facility] [address] [id number] [address]- 4753 Apr, Pain R52 and Generalized anxiety disorder F41.1 [facility] [address] [address]- 3976 Mar, [facility] [address] [id number] [address]- 6588 Mar, Pain R52 and Generalized anxiety disorder F41.1 [facility] [address] [place] [id number] Feb, Depression F32.9 ; Type 2 diabetes mellitus with complication E11.8 and Nicotine dependence, unspecified, uncomplicated F17.200 [facility] [id number] [place] [address] 52840- 4475 Feb, Generalized anxiety disorder F41.1 and Pain R52 [facility] [id number] [place] [address] 97352- 9966 Feb, [facility] [id number] [place] [address] 47306- 5013 Jan, [facility] [address] 93422- 6799 Jan, Generalized anxiety disorder F41.1 and Pain R52 [facility] [id number] [place] [address] 17316- 5410 Jan, [facility] [id number] [place] [address] [id number] Dec, Generalized anxiety disorder F41.1 and Pain R52 [facility] [address] [place] [address] Dec, Vascular dementia F01.50 ; Pain of left leg M79.605 ; Pain in right leg M79.604 and Type 2 diabetes mellitus with complication E11.8 [facility] [id number] [place] [address] 59357- 2607 Dec, Pain R52 [facility] [id number] [place] [address] 79383- 1849 Dec, [facility] [id number] [place] [address] 21284- 7435 Nov, [facility] [id number] [place] [address] 17065- 6841 Nov, Pain R52 and Generalized anxiety disorder F41.1 [facility] [address] [place] [id number] Aug, 2017 Depression F32.9 ; Vascular dementia with behavior disturbance F01.51 and Anxiety F41.9 [facility] [id number] [place] [address] 24287- 2004 Nov, Pain R52 and Generalized anxiety disorder F41.1 [facility] [id number] [place] [address] 89342- 9932 Oct, Generalized anxiety disorder F41.1 [facility] [id number] [place] [address] 84676- 7355 Oct, Pain R52 [facility] [id number] [place] [address] 76570- 8060 Sep, [facility] [address] [facility] [place] [id number] Sep, Generalized anxiety disorder F41.1 [facility] [id number] [place] [address] 13765- 7983 Sep, Pain R52 [facility] [id number] [place] [address] 94900- 9345 Sep, Generalized anxiety disorder F41.1 [facility] [id number] [place] [address] 52125- 2690 August, [facility] [id number] [place] [address] 68144- 5420 August, [facility] [id number] [place] [address] 48153- 5744 August, Pain R52 [facility] [id number] [place] [address] 54505- 5834 August, Generalized anxiety disorder F41.1 [facility] [address] [id number] August, Generalized anxiety disorder F41.1 [facility] [id number] [place] [address] 86741- 7732 Jul, Pain R52 [facility] [id number] [place] [address] [id number]- 7331 Jul, [facility] [id number] [place] [address] [id number] Jul, [facility] [id number] [place] [address] 546211- 4400 Jun, [facility] [id number] [place] [address] [id number] Jun, Depression F32.9 [facility] [id number] [place] [address] 56493- 9537 Jun, Pain R52 [facility] [id number] [place] [address] 90598- 6179 Jun, [facility] [address] [place] [id number] Jun, Vascular dementia F01.50 and Depression F32.9 [facility] [id number] [place] [address] 21458- 4370 May, Pain R52 [facility] [id number] [place] [address] 11493- 4613 May, [facility] [id number] [place] [address] 00210- 4986 May, Pseudobulbar affect F48.2 [facility] [id number] [place] [address] 49424- 0601 May, [facility] [id number] [place] [address] 11177- 4714 May, PVD (peripheral vascular disease) I73.9 [facility] [id number] [place] [address] 41123- 2928 08 May, 2016 Vascular dementia with behavior disturbance F01.51 [facility] [address] [place] [address] 78635- 4749 02 May, 2016 Vascular dementia with behavior disturbance F01.51 [facility] [id number] [place] [address] 08205- 5603 Apr, [facility] [id number] [place] [address] 36546- 7978 Apr, Pain R52 [facility] [address] [place] [id number] Apr, Generalized anxiety disorder F41.1 ; PVD (peripheral vascular disease) I73.9 and Type 2 diabetes mellitus with complication E11.8 [facility] [id number] [place] [address] 37679- 3905 Apr, Vascular dementia with behavior disturbance F01.51 [facility] [id number] [place] [address] 71046- 3455 Apr, [facility] [id number] [place] [address] 05247- 6976 Apr, Vascular dementia with behavior disturbance F01.51 [facility] [id number] [place] [address] 69483- 3684 Apr, [facility] [id number] [place] [address] [id number] Mar, [facility] [id number] [place] [address] 80533- 0631 Mar, Type 2 diabetes mellitus with complication E11.8 ; Vascular dementia with behavior disturbance F01.51 and Depression F32.9 [facility] [id number] [place] [address] 18332- 9082 Mar, [facility] [id number] [place] [address] 77174- 6040 Feb, [facility] [id number] [place] [address] 27766- 8725 Feb, Viral illness B34.9 [facility] [id number] [place] [address] 63715- 0261 Jan, Diabetes 250.00 [facility] [id number] [place] [address] 74727- 8319 Jan, [facility] [address] [id number] [address]- 2544 Jan, [facility] [address] [id number] [address]- 0561 Jan, [facility] [address] [id number] Jan, Vascular dementia with behavior disturbance F01.51 and Type 2 diabetes mellitus with complication E11.8 [facility] [address] [id number] [address]- 2359 Jan, Pain R52 [facility] [id number] [place] [address] 31414- 3736 Jan, Pain R52 [facility] [address] [address]- 7433 Dec, [facility] [address] [address]- 7122 Nov, [facility] [address] [place] [id number] Nov, Type 2 diabetes mellitus with complication E11.8 [facility] [address] [address]- 7448 Nov, [facility] [address] [address]- 8627 Oct, [facility] [address] [address]- 6968 Oct, [facility] [address] [address]- 6520 Oct, Vascular dementia with behavior disturbance F01.51 and Type 2 diabetes mellitus with complication E11.8 [facility] [address] [address]- 1053 August, Type 2 diabetes mellitus with complication E11.8 and Vascular dementia with behavior disturbance F01.51 [facility] [address] [address]- 6051 August, Vascular dementia F01.50 [facility] [address] [address]- 2326 August, Vascular dementia with behavior disturbance F01.51 [facility] [address] [address]- 2546 Jul, Vascular dementia with behavior disturbance F01.51 [facility] [address] [address]- 3906 Jun, Vascular dementia F01.50 [facility] [address] [address]- 1401 Jun, Type 2 diabetes mellitus with complication E11.8 ; Long- term insulin use Z79.4 and Vascular dementia with behavior disturbance F01.51 [facility] [address] [address]- 4738 Jun, Vascular dementia with behavior disturbance F01.51 [facility] [address] [address]- 8155 Jun, Vascular dementia F01.50 [facility] [address] [address]- 0805 Apr, [facility] [address] [address]- 2749 Apr, [facility] [address] [address]- 2449 Apr, [facility] [address]- 4449 Apr, Type 2 diabetes mellitus with complication E11.8 ; Depression F32.9 and Long-term insulin use Z79.4 [facility] [address] [id number] [address]- 2544 Mar, [facility] [address] [place] [id number] Mar, Depression F32.9 ; Type 2 diabetes mellitus with complication E11.8 and Long-term insulin use Z79.4 [facility] [address] [address]- 8602 Feb, [facility] [address] 5216 Feb, Hyperthyroidism E05.90 [facility] [address] [address]- 1456 Feb, Hyperthyroidism E05.90 [facility] [address] [place] [address] 75665- 5357 Feb, [facility] [address] [place] [address] 41858- 3671 Jan, [facility] [address] [address]- 3846 Dec, Nicotine addiction 305.1 [facility] [id number] [place] [address] 18681- 9619 Oct, Nicotine abuse 305.1 [facility] [address] [address]- 9985 Oct, [facility] [address] [place] [address] 96101- 3241 August, [place] [facility] [address] [place] [id number] August, History of drug abuse 305.93 and Diabetes 250.00 [facility] [address] [address]- 8666 Jul, [facility] [address] [address]- 7175 Jul, [facility] [address] 6275 Jun, [facility] [address] [id number] [address]- 2118 Jun, [facility] [address] [place] [address] [place] [address]- 4897 Jun, [facility] [address] [id number] [place] [address]- 0918 Jun, [facility] [address] [id number] [place] [address]- 1163 Jun, [facility] [address] [id number] [place] [address]- 2037 Jun, [facility] [place] [facility] [address] [id number] [place] [address]- 7469 May, [facility] [address] [id number] [place] [address]- 1316 May, [facility] [address] [id number] [place] [address]- 0468 May, [facility] [address] [id number] [place] [address]- 0256 May, [facility] [address] [id number] [place] [address]- 6639 May, [facility] [address] [id number] [place] [address]- 0155 Apr, [facility] [address] [id number] [place] [address]- 9340 Apr, [address] [place] [id number] Apr, [facility] [address] [id number] [place] [address]- 9144 Apr, [facility] [place] [facility] [address] [id number] [place] [address]- 1410 Apr, [facility] [place] [facility] [address] [id number] [place] [address]- 0467 Apr, [facility] [place] [facility] [address] [id number] [place] [address]- 3425 Apr, [facility] [place] [facility] [address] [id number] [place] [address]- 4188 Apr, [facility] [address] [id number] [place] [address]- 8139 Mar, [facility] [place] [facility] [address] [id number] [place] [address]- 1672 Mar, [facility] [address] [id number] [place] [address]- 0582 Mar, [facility] [place] [facility] [address] [id number] [place] [address]- 8811 Mar, [facility] [place] [facility] [address] [id number] [place] [address]- 1578 Mar, [facility] [address] [id number] [place] [address]- 9736 Mar, [facility] [address] [id number] [place] [address]- 8477 Mar, [facility] [address] [id number] [place] [address]- 8980 Mar, [facility] [address] [id number] [place] [address]- 8760 Feb, [facility] [address] [id number] [place] [address]- 2179 Feb, [facility] [address] [id number] [place] [address]- 1883 Feb, [facility] [address] [id number] [place] [address]- 9088 Feb, [facility] [place] [facility] [address] [id number] [place] [address]- 9908 Feb, [facility] [address] [place] [id number] Feb, [facility] [place] [facility] [address] [id number] [place] [address]- 7894 Feb, [facility] [place] [facility] [address] [id number] [place] [address]- 1445 Feb, [facility] [place] [facility] [address] [id number] [place] [address]- 3836 Feb, [facility] [place] [facility] [address] [id number] [place] 2079 Feb, [facility] [place] [facility] [address] [id number] [place] [address]- 5611 Jan, [facility] [place] [facility] [address] [id number] [place] [address]- 5213 30 Jan, 2014 [facility] [place] [facility] [address] [id number] [place] [address]- 0385 Jan, [facility] [place] [facility] [address] [id number] [place] [address]- 9197 17 Jan, 2014 [facility] [place] [facility] [address] [id number] [place] [address]- 0628 16 Jan, 2014 [facility] [place] [facility] [address] [id number] [place] [address]- 7320 16 Jan, 2014 [facility] [place] [facility] [address] [id number] [place] [address]- 7187 15 Jan, 2014 [facility] [place] [facility] [address] [id number] [place] [address]- 8682 13 Jan, 2014 [facility] [place] [facility] [address] [id number] [place] [address]- 8743 Jan, [facility] [place] [facility] [address] [id number] [place] [address]- 5664 Jan, [facility] [place] [facility] [address] [id number] [place] [address]- 4480 Jan, [facility] [place] [facility] [address] [id number] [place] 0011 09 Jan, 2014 [facility] [place] [facility] [address] [id number] [place] [address]- 7260 09 Jan, 2013 [facility] [place] [facility] [address] [id number] [place] [address]- 6048 08 Jan, 2013 [facility] [place] [facility] [address] [id number] [place] [address]- 0840 08 Jan, 2013 [facility] [place] [facility] [address] [id number] [place] [address]- [address] Jan, 2013 [facility] [place] [facility] [address] [id number] [place] [address] Jan, 2013 [facility] [place] [facility] [address] [id number] [place] [address] Sep, 2013 [facility] [place] [facility] [address] [id number] [place] [address] 19 Sep, 2013 [facility] [place] [facility] [address] [id number] [place] [address] 11 Sep, 2013 [facility] [place] [facility] [address] [id number] [place] [address] 11 Sep, 2013 [facility] [place] [facility] [address] [id number] [place] [address] 09 Sep, 2013 [facility] [place] [facility] [address] [id number] [place] [address] 09 Sep, 2013 [facility] [place] [facility] [address] [id number] [place] [address] 08 Sep, 2013 [facility] [place] [facility] [address] [id number] [place] [address] 08 Sep, 2013 [facility] [place] [facility] [address] [id number] [place] [address] 08 Sep, 2013 [facility] [place] [facility] [address] [id number] [place] [address] 08 Sep, 2013 [facility] [place] [facility] [address] [id number] [place] [address] 05 Sep, 2013 [facility] [place] [facility] [address] [id number] [place] [address] Dec, [facility] [place] [facility] [address] [id number] [place] [address] Dec, [facility] [place] [facility] [address] [id number] [place] [address] Dec, [facility] [place] [facility] [address] [id number] [place] [address] Nov, [facility] [place] [facility] [address] [id number] [place] [address]- 8218 Nov, [facility] [place] [facility] [address] [id number] [place] [address] Nov, [facility] [place] [facility] [address] [id number] [place] [address] 8785 Nov, [facility] [place] [facility] [address] [id number] [place] [address] 2028 Nov, [facility] [place] [facility] [address] [id number] [place] [address] 1488 Nov, [facility] [place] [facility] [address] [id number] [place] [address] 4741 Nov, [facility] [place] [facility] [address] [id number] [place] [address] 7537 Nov, [facility] [place] [facility] [address] [id number] [place] [address]- 5952 Nov, [facility] [place] [facility] [address] [id number] [place] [address]- 0805 Nov, [facility] [place] [facility] [address] [id number] [place] [address]- 2773 Nov, [facility] [place] [facility] [address] [id number] [place] [address] 9508 Nov, [facility] [place] [facility] [address] [id number] [place] [address]- 8061 Nov, [facility] [place] [facility] [address] [id number] [place] [address] 5937 Nov, [facility] [place] [facility] [address] [id number] [place] [address]- 6193 Oct, [facility] [place] [facility] [address] [id number] [place] [address]- 2025 Oct, [facility] [place] [facility] [address] [id number] [place] [address]- 6224 Oct, [facility] [place] [facility] [address] [id number] [place] [address]- 2680 Oct, [facility] [place] [facility] [address] [id number] [place] [address]- 1276 Oct, [facility] [place] [facility] [address] [id number] [place] [address] 1952 Oct, [facility] [place] [facility] [address] [id number] [place] [address]- 7361 Oct, [facility] [place] [facility] [address] [id number] [place] [address]- 8313 Oct, [facility] [place] [facility] [address] [id number] [place] [address]- 7149 Oct, [facility] [place] [facility] [address] [id number] [place] [address]- 3458 Oct, [facility] [place] [facility] [address] [id number] [place] [address]- 6706 Oct, [facility] [place] [facility] [address] [id number] [place] [address]- 3910 Oct, [facility] [place] [facility] [address] [id number] [place] [address]- 4731 Oct, [facility] [place] [facility] [address] [id number] [place] [address]- 3267 Oct, [facility] [place] [facility] [address] [id number] [place] [address]- 7356 Oct, [facility] [place] [facility] [address] [id number] [place] [address]- 9856 Oct, [facility] [place] [facility] [address] [id number] [place] [address]- 0248 Oct, [facility] [place] [facility] [address] [id number] [place] [address]- 9897 Oct, [facility] [place] [facility] [address] [id number] [place] [address]- 9071 Oct, [facility] [place] [facility] [address] [id number] [place] [address]- 1539 Oct, [facility] [place] [facility] [address] [id number] [place] [address]- 0770 Sep, [facility] [place] [facility] [address] [id number] [place] [address]- 3842 Sep, [facility] [place] [facility] [address] [id number] [place] [address]- 0635 Sep, [facility] [place] [facility] [address] [id number] [place] [address]- 5949 Sep, [facility] [place] [facility] [address] [id number] [place] [address]- 0963 Sep, [facility] [place] [facility] [address] [id number] [place] [address]- 1216 Sep, [facility] [place] [facility] [address] [id number] [place] [address]- 3787 August, [facility] [place] [facility] [address] [id number] [place] [address]- 6510 August, [facility] [place] [facility] [address] [id number] [place] [address]- 4856 Jul, [facility] [place] [facility] [address] [id number] [place] [address]- 5298 Jul, [facility] [place] [facility] [address] [id number] [place] [address]- 8075 Jul, [facility] [place] [facility] [address] [id number] [place] [address] Jul, [facility] [place] [facility] [address] [id number] [place] [address]- 5230 Jul, [facility] [place] [facility] [address] [id number] [place] [address]- 7241 Jul, [facility] [place] [facility] [address] [id number] [place] [address]- 8873 Jul, [facility] [place] [facility] [address] [id number] [place] [address]- 0100 Jul, [facility] [place] [facility] [address] [id number] [place] [address]- 3823 Jun, [facility] [place] [facility] [address] [id number] [place] [address]- 5068 Jun, [facility] [place] [facility] [address] [id number] [place] [address]- 6711 Jun, [facility] [place] [facility] [address] [id number] [place] [address]- 3188 Jun, [facility] [place] [facility] [address] [id number] [place] [address]- 8333 Jun, [facility] [place] [facility] [address] [id number] [place] [address]- 1944 May, [facility] [place] [facility] [address] [id number] [place] [address]- 2847 May, [facility] [place] [facility] [address] [id number] [place] [address]- 2428 May, [facility] [place] [facility] [address] [id number] [place] [address]38 May, [facility] [place] [facility] [address] [id number] [place] [address]- 4964 May, [facility] [place] [facility] [address] [id number] [place] [address]- 7416 May, [facility] [place] [facility] [address] [id number] [place] [address]- 4876 May, [facility] [place] [facility] [address] [id number] [place] [address]- 4386 May, [facility] [place] [facility] [address] [id number] [place] [address]- 9236 May, [facility] [place] [facility] [address] [id number] [place] [address]- 9506 May, [facility] [place] [facility] [address] [id number] [place] [address]- 0266 May, [facility] [place] [facility] [address] [id number] [place] [address]- 3771 Apr, [facility] [place] [facility] [address] [id number] [place] [address]- 4318 Apr, [facility] [place] [facility] [address] [id number] [place] [address]- 8589 Mar, [facility] [place] [facility] [address] [id number] [place] [address]- 3626 Mar, [facility] [place] [facility] [address] [id number] [place] [address] 2546 Mar, [facility] [place] [facility] [address] [id number] [place] [address] 2546 Mar, [facility] [place] [facility] [address] [id number] [place] [address] 2546 Mar, [facility] [place] [facility] [address] [id number] [place] [address]- 2546 Jan, [facility] [place] [facility] [address] [id number] [place] [address]- 2239 Jan, [facility] [place] [facility] [address] [id number] [place] [address]- 2758 Jan, [facility] [place] [facility] [address] [id number] [place] [address]- 7481 Jan, [facility] [place] [facility] [address] [id number] [place] [address]- 7025 Jan, [facility] [place] [facility] [address] [id number] [place] [address]- 4214 Jan, [facility] [address] [id number] [place] [address]- 1970 Jan, [facility] [place] [facility] [address] [id number] [place] [address]- 7884 Jan, [facility] [address] [id number] [place] [address]- 2441 Jan, [facility] [place] [facility] [address] [id number] [place] [address]- 8932 Jan, [facility] [place] [facility] [address] [id number] [place] [address]- 5752 Dec, [facility] [place] [facility] [address] [id number] [place] [address]- 1095 Oct, [facility] [place] [facility] [address] [id number] [place] [address]- 6515 Oct, [facility] [place] [facility] [address] [id number] [place] [address]- 2006 Oct, [facility] [place] [facility] [address] [id number] [place] [address]- 1418 Oct, [facility] [place] [facility] [address] [id number] [place] [address]- 2515 Oct, [facility] [place] [facility] [address] [id number] [place] [address]- 9927 Oct, [facility] [place] [facility] [address] [id number] [place] [address]- 7146 Sep, [facility] [address] [id number] [place] [address]- 0990 August, [facility] [address] [id number] [place] [address]- 7974 August, [facility] [address] [id number] [place] [address]- 6238 August, [facility] [address] [id number] [place] [address]- 3720 August, [facility] [address] [id number] [place] [address]- 4400 August, [facility] [address] [id number] [place] [address]- 8652 May, [facility] [address] [id number] [place] [address]- 7514 Apr, [facility] [address] [id number] [place] [address]- 3939 Apr, [facility] [address] [id number] [place] [address]- 3458 Apr, [facility] [address] [id number] [place] [address]- 5121 Apr, [facility] [address] [id number] [place] [address]- 6644 Apr, [facility] [address] [place] [id number] Mar, [facility] [address] [id number] [place] [address]- 1446 Mar, [facility] [address] [id number] [place] [address]- 8979 Mar, [facility] [address] [id number] [place] [address]- 4823 Mar, [facility] [address] [id number] [place] [address]- 5576 17 Mar, 2012 [facility] [address] [id number] [place] [address]- 4126 17 Mar, 2012 [facility] [place] [facility] [address] [id number] [place] [address]- 3376 13 Mar, 2012 [facility] [address] [id number] [place] [address]- 0476 13 Mar, 2012 [facility] [place] [facility] [address] [id number] [place] [address]- 9516 13 Mar, 2012 [facility] [address] [id number] [place] [address]- 6616 13 Mar, 2012 [facility] [place] [facility] [address] [id number] [place] [address]- 8696 12 Mar, 2012 [facility] [address] [id number] [place] [address]- 9936 12 Mar, 2012 [facility] [place] [facility] [address] [id number] [place] [address]- 9159 10 Mar, 2012 [facility] [place] [facility] [address] [id number] [place] [address]- 3486 10 Mar, 2012 [facility] [address] [id number] [place] [address]- 9216 07 Mar, 2012 [facility] [place] [facility] [address] [id number] [place] [address]- 3766 07 Mar, 2012 [facility] [place] [facility] [address] [id number] [place] [address] 2546 06 Mar, 2012 [facility] [place] [facility] [address] [id number] [place] [address]- 1316 06 Mar, 2012 [facility] [place] [facility] [address] [id number] [place] [address]- 1616 05 Mar, 2012 [facility] [place] [facility] [address] [id number] [place] [address]- 7976 05 Mar, 2012 [facility] [place] [facility] [address] [id number] [place] [address]- 4813 Feb, [facility] [place] [facility] [address] [id number] [place] [address]- 4489 Feb, [facility] [place] [facility] [address] [id number] [place] [address]- 9801 Feb, [facility] [place] [facility] [address] [id number] [place] [address]- 2042 Feb, [facility] [place] [facility] [address] [id number] [place] [address]- 6015 Jan, [facility] [place] [facility] [address] [id number] [place] [address]- 3295 Jan, [facility] [place] [facility] [address] [id number] [place] [address]- 7682 Jan, [facility] [place] [facility] [address] [id number] [place] [address]- 4478 Jan, [facility] [place] [facility] [address] [id number] [place] [address]- 2365 Jan, [facility] [place] [facility] [address] [id number] [place] [address]- 1972 Jan, [facility] [place] [facility] [address] [id number] [place] [address]- 1084 Jan, [facility] [place] [facility] [address] [id number] [place] [address]- 3223 Jan, [facility] [place] [facility] [address] [id number] [place] [address]- 7332 Jan, [facility] [place] [facility] [address] [id number] [place] [address]- 5666 27 Dec, 2011 [facility] [place] [facility] [address] [id number] [place] [address]- 2899 14 Dec, 2011 [facility] [place] [facility] [address] [id number] [place] [address]- 3717 Dec, [facility] [place] [facility] [address] [id number] [place] [address]- 1961 Dec, [facility] [place] [facility] [address] [id number] [place] [address]- 7164 Dec, [facility] [place] [facility] [address] [id number] [place] [address]- 7724 Nov, [facility] [place] [facility] [address] [id number] [place] [address]- 8829 Nov, [facility] [place] [facility] [address] [id number] [place] [address]- 5426 Nov, [facility] [place] [facility] [address] [id number] [place] [address]- 6080 Nov, [facility] [place] [facility] [address] [id number] [place] [address]- 7266 Nov, [facility] [place] [facility] [address] [id number] [place] [address]- 9019 Nov, [facility] [place] [facility] [address] [id number] [place] [address]- 8720 Nov, [facility] [place] [facility] [address] [id number] [place] [address]- 3446 Nov, [facility] [place] [facility] [address] [id number] [place] [address]- 6675 Nov, [facility] [place] [facility] [address] [id number] [place] [address]- 3011 Oct, [facility] [place] [facility] [address] [id number] [place] [address]- 9756 Oct, [facility] [place] [facility] [address] [id number] [place] [address]- 6292 Sep, [facility] [place] [facility] [address] [id number] [place] [address]- 9945 Sep, [facility] [place] [facility] [address] [id number] [place] [address]- 0010 05 Sep, 2011 [facility] [address] [id number] [place] [address]- 5650 14 Aug, 2011 [facility] [address] [id number] [place] [address]- 2062 30 Jul, 2011 [facility] [address] [id number] [place] [address]- 4304 27 Jul, 2011 [facility] [address] [id number] [place] [address]- 1820 27 Jul, 2011 [facility] [address] [id number] [place] [address]- 4860 18 Jul, 2011 [facility] [address] [id number] [place] [address]- 9617 16 Jul, 2011 [facility] [address] [id number] [place] [address]- 0552 16 Jul, 2011 [facility] [address] [id number] [place] [address]- 4535 16 Jul, 2011 [facility] [address] [id number] [place] [address]- 5008 14 Jul, 2011 [facility] [address] [id number] [place] [address]- 0536 12 Jul, 2011 [facility] [address] [id number] [place] [address]- 4259 19 Jun, 2011 [facility] [address] [id number] [place] [address]- 0340 18 Jun, 2011 [facility] [place] [facility] [address] [id number] [place] [address]- 5301 15 Jun, 2011 [facility] [address] [id number] [place] [address]- 1948 12 Jun, 2011 [facility] [address] [id number] [place] [address]- 0917 Jun, [facility] [address] [id number] [place] [address]- 3030 08 Jun, 2011 [facility] [place] [facility] [address] [id number] [place] [address]- 0526 Jun, [facility] [place] [facility] [address] [id number] [place] [address]- 7509 Jun, [facility] [place] [facility] [address] [id number] [place] [address]- 1766 May, [facility] [address] [id number] [place] [address]- 4222 May, [facility] [place] [facility] [address] [id number] [place] [address]- 1271 May, [facility] [address] [id number] [place] [address]- 5978 Apr, [facility] [address] [id number] [place] [address]- 7001 Apr, [facility] [address] [id number] [place] [address]- 3154 Apr, [facility] [address] [id number] [place] [address]- 8507 Mar, [facility] [place] [facility] [address] [id number] [place] [address]- 0593 Mar, [facility] [place] [facility] [address] [id number] [place] [address]- 4945 15 Mar, 2011 [facility] [place] [facility] [address] [id number] [place] [address]- 7046 13 Mar, 2011 [facility] [place] [facility] [address] [id number] [place] [address]- 4328 Mar, [facility] [place] [facility] [address] [id number] [place] [address]- 5871 12 Mar, 2011 [facility] [place] [facility] [address] [id number] [place] 6493 12 Mar, 2011 [facility] [place] [facility] [address] [id number] [place] [address]- 8342 12 Mar, 2011 [facility] [place] [facility] [address] [id number] [place] 1897 08 Mar, 2011 [facility] [place] [facility] [address] [id number] [place] [address]- 9325 Mar, [facility] [place] [facility] [address] [id number] [place] [address]- 7299 Mar, [facility] [place] [facility] [address] [id number] [place] 8818 Mar, [facility] [place] [facility] [address] [id number] [place] [address]- 8552 Mar, [facility] [place] [facility] [address] [id number] [place] [address]- 0161 Mar, [facility] [place] [facility] [address] [id number] [place] [address]- 8312 Feb, [facility] [place] [facility] [address] [id number] [place] [address]- 9238 Feb, [facility] [place] [facility] [address] [id number] [place] [address]- 6529 Feb, [facility] [place] [facility] [address] [id number] [place] [address]- 5501 Jan, [facility] [place] [facility] [address] [id number] [place] [address]- 1647 Jan, [facility] [place] [facility] [address] [id number] [place] [address]- 9146 Oct, [facility] [place] [facility] [address] [id number] [place] [address]- 2034 Sep, [facility] [place] [facility] [address] [id number] [place] [address]- 4930 Mar, [facility] [place] [facility] [address] [id number] [place] [address]- 8204 Mar, [facility] [address] [id number] [place] [address] Feb, [facility] [address] [id number] [place] [address] Feb, [facility] [address] [id number] [place] [address] Jan, [facility] [address] [id number] [place] Jan, [facility] [address] [id number] [place] [address] Mar, [facility] [address] [id number] [place] [address] Feb, [facility] [id number] [place] [address] Feb, [facility] [id number] [place] Feb, [facility] [id number] [place] [address] Feb, [facility] [address] [id number] [place] [address] Jan, [facility] [id number] [address] Dec, [facility] [address] [id number] [address] Nov, IMMUNIZATIONS No Known Immunizations SOCIAL HISTORY Never Assessed REASON FOR VISIT High Blood Sugar PLAN OF CARE VITAL SIGNS MEDICATIONS Unknown Medications RESULTS No Results PROCEDURES No Known procedures INSTRUCTIONS MEDICATIONS ADMINISTERED No Known Medications MEDICAL (GENERAL) HISTORY Type Description Date Hospitalization History [facility] March 2015
--- OUTSIDE RECORDS SUMMARY | 2018-02-25 07:52 | XMS REPORT ---
Author Author STEPHANIE CHRISTIANSEN [facility] Address [address] [place] [address] Care Team Providers Care Leaf Sorter Name Role Phone STEPHANIE CHRISTIANSEN Unavailable PROBLEMS Type Condition ICD9-CM Code WFM84-SK Code Onset Dates Condition Status SNOMED Code Problem Hyperlipidemia, unspecified hyperlipidemia type E78.5 Active 72941559 Problem Long-term insulin use Z79.4 Active 120885749 Problem Abnormal carotid ultrasound R93.8 Active 418236565 Problem Type 2 diabetes mellitus with complication E11.8 Active 66025555 Problem Positive TB test R76.11 Active 590951938 Problem Vascular dementia with behavior disturbance F01.51 Active 609262460 Problem PVD (peripheral vascular disease) I73.9 Active 223307695 Problem Pain R52 Active 66851530 Problem Other chronic osteomyelitis of left foot M86.672 Active 837288535 Problem Nicotine dependence, unspecified, uncomplicated F17.200 Active 636770133 Problem Peripheral vascular disease due to secondary diabetes E13.51 Active 0916987 Problem Nonintractable epilepsy without status epilepticus, unspecified epilepsy type G40.909 Active 990404013 Problem Recurrent major depressive disorder, remission status unspecified F33.9 Active 53784023 Problem Anxiety F41.9 Active 15159276 Problem Generalized anxiety disorder F41.1 Active 26469261 Problem Vascular dementia F01.50 Active 348388625 Problem Pseudobulbar affect F48.2 Active 26818421 Problem Coronary artery disease involving cahto coronary artery of cahto heart without angina pectoris I25.10 Active 2127609491588 Problem Gastroesophageal reflux disease without esophagitis K21.9 Active 051792470 Problem Cerebrovascular accident (CVA) due to other mechanism I63.8 Active 688639723 Problem Pulmonary emphysema, unspecified emphysema type J43.9 Active 02834957 Problem Neuropathy G62.9 Active 179817273 Problem Depression F32.9 Active 43646435 Problem Essential hypertension I10 Active 92547826 Problem Acquired hypothyroidism E03.9 Active 140824654 ALLERGIES No Information ENCOUNTERS Encounter Location Date Diagnosis [facility] [id number] [place] [address] 49908- 5742 Oct, Generalized anxiety disorder F41.1 [facility] [id number] [place] [address] 11748- 6719 Oct, Generalized anxiety disorder F41.1 [facility] [address] [id number] Oct, Sepsis, due to unspecified organism A41.9 ; Generalized anxiety disorder F41.1 ; Pain R52 and Depression F32.9 [place] [id number] [place] [address] 54080- 8481 Oct, [facility] [id number] [place] [address] 64950- 2852 Oct, [facility] [id number] [place] [address] 24575- 5500 Sep, Generalized anxiety disorder F41.1 [place] [id number] [place] [address] 50349- 2861 Sep, [place] [id number] [place] [address] 59572- 2713 Sep, Type 2 diabetes mellitus with complication E11.8 [place] [id number] [place] [address] 50109- 1371 August, Generalized anxiety disorder F41.1 [facility] [id number] [place] [address] 48370- 4130 August, [facility] [address] [id number] August, Type 2 diabetes mellitus with complication E11.8 ; Vascular dementia with behavior disturbance F01.51 ; Long-term insulin use Z79.4 and Nicotine dependence, unspecified, uncomplicated F17.200 [facility] [address] [place] [address] 93935- 7495 August, Generalized anxiety disorder F41.1 [facility] [id number], [place] [address] 1766 Jul, Generalized anxiety disorder F41.1 [facility] [place] [id number] [id number] Jun, Generalized anxiety disorder F41.1 [facility] [place] [id number] [id number] Jun, [facility] [place] [id number] [place] [address] [id number] May, [facility] [address], [place] [address] 2546 May, [facility] [place] [id number] [place] [address] [id number] May, Generalized anxiety disorder F41.1 [facility] [address] [place] [address] 48798- 1696 Apr, [facility] [address] [facility] [facility] [place] [id number] Apr, Other chronic osteomyelitis of left foot M86.672 ; Type 2 diabetes mellitus with complication E11.8 ; Vascular dementia F01.50 ; Long-term insulin use Z79.4 ; PVD (peripheral vascular disease) I73.9 and Nicotine abuse 305.1 [facility] [id number], [place] [address] 7735 Apr, [facility] [place] [id number] [id number] Apr, [facility] [id number], [place] [address] 6067 Apr, Pain R52 and Generalized anxiety disorder F41.1 [facility] [address], [place] [address]- 5086 Mar, [facility] [id number], [place] [address] 6253 Mar, Pain R52 and Generalized anxiety disorder F41.1 [facility] [address] [place] [id number] Feb, Depression F32.9 ; Type 2 diabetes mellitus with complication E11.8 and Nicotine dependence, unspecified, uncomplicated F17.200 [facility] [id number] [place] [address] 30842- 0757 Feb, Generalized anxiety disorder F41.1 and Pain R52 [facility] [id number] [place] [address] 40338- 1172 Feb, [facility] [id number] [place] [address] 52344- 7119 Jan, [place] [address] 11646- 4006 Jan, Generalized anxiety disorder F41.1 and Pain R52 [place] [id number] [place] [address] 93248- 3081 Jan, [facility] [place] [id number] [place] [address] [id number] Dec, Generalized anxiety disorder F41.1 and Pain R52 [facility] [address] [place] [id number] Dec, Vascular dementia F01.50 ; Pain of left leg M79.605 ; Pain in right leg M79.604 and Type 2 diabetes mellitus with complication E11.8 [place] [id number] [place] [address] 87282- 2210 Dec, Pain R52 [facility] [id number] [place] [address] 06987- 3352 Dec, [facility] [id number] [place] [address] 63823- 1557 Nov, [facility] [id number] [place] [address] 86888- 8746 Nov, Pain R52 and Generalized anxiety disorder F41.1 [facility] [address] [place] [id number] Aug, 2017 Depression F32.9 ; Vascular dementia with behavior disturbance F01.51 and Anxiety F41.9 [facility] [id number] [place] [address] 02028- 7937 Nov, Pain R52 and Generalized anxiety disorder F41.1 [facility] [id number] [place] [address] 78970- 2692 Oct, Generalized anxiety disorder F41.1 [facility] [id number] [place] [address] 41296- 7503 Oct, Pain R52 [facility] [id number] [place] [address] 85719- 2629 Sep, [facility] [address] [facility] [place] [id number] Sep, Generalized anxiety disorder F41.1 [facility] [id number] [place] [address] 30371- 0363 Sep, Pain R52 [facility] [id number] [place] [address] 97728- 8032 Sep, Generalized anxiety disorder F41.1 [facility] [id number] [place] [address] 88775- 2040 August, [facility] [id number] [place] [address] 61455- 7873 August, [facility] [id number] [place] [address] 48705- 5566 August, Pain R52 [facility] [id number] [place] [address] 28965- 2660 August, Generalized anxiety disorder F41.1 [facility] [place] [address] [id number] August, Generalized anxiety disorder F41.1 [facility] [id number] [place] [address] 94038- 5852 Jul, Pain R52 [facility] [id number] [place] [address] 34376124- 6872 Jul, [facility] [place] [id number] [place] [address] [id number] Jul, [facility] [id number] [place] [address] 994191- 2417 Jun, [facility] [id number] [place] [address] [id number] Jun, Depression F32.9 [facility] [id number] [place] [address] 97510- 7086 Jun, Pain R52 [facility] [id number] [place] [address] 17592- 1554 Jun, [facility] [address] [place] [id number] Jun, Vascular dementia F01.50 and Depression F32.9 [facility] [id number] [place] [address] 70051- 1772 May, Pain R52 [facility] [id number] [place] [address] 29407- 0052 May, [facility] [id number] [place] [address] 60526- 3243 May, Pseudobulbar affect F48.2 [facility] [id number] [place] [address] 64205- 0069 May, [facility] [id number] [place] [address] 11070- 0403 May, PVD (peripheral vascular disease) I73.9 [facility] [id number] [place] [address] 35732- 9288 08 May, 2016 Vascular dementia with behavior disturbance F01.51 [facility] [address] [place] [address] 68008- 2397 02 May, 2016 Vascular dementia with behavior disturbance F01.51 [facility] [id number] [place] [address] 52492- 3378 Apr, [facility] [id number] [place] [address] 09463- 4041 Apr, Pain R52 [facility] [address] [place] [id number] Apr, Generalized anxiety disorder F41.1 ; PVD (peripheral vascular disease) I73.9 and Type 2 diabetes mellitus with complication E11.8 [facility] [id number] [place] [address] 00152- 6601 Apr, Vascular dementia with behavior disturbance F01.51 [facility] [id number] [place] [address] 02424- 8563 Apr, [facility] [id number] [place] [address] 08310- 2683 Apr, Vascular dementia with behavior disturbance F01.51 [facility] [id number] [place] [address] 80430- 3933 Apr, [facility] [place] [id number] [place] [address] [id number] Mar, [facility] [id number] [place] [address] 66617- 3443 Mar, Type 2 diabetes mellitus with complication E11.8 ; Vascular dementia with behavior disturbance F01.51 and Depression F32.9 [facility] [id number] [place] [address] 86565- 2035 Mar, [facility] [id number] [place] [address] 69590- 6816 Feb, [facility] [id number] [place] [address] 23025- 0068 Feb, Viral illness B34.9 [facility] [id number] [place] [address] 38037- 7444 Jan, Diabetes 250.00 [facility] [id number] [place] [address] 03813- 7129 Jan, [facility] [address] [facility] [id number], [place] [address]- 7320 Jan, [facility] [address] [facility] [id number], [place] [address]- 4571 Jan, [facility] [address] [id number] Jan, Vascular dementia with behavior disturbance F01.51 and Type 2 diabetes mellitus with complication E11.8 [facility] [address] [facility] [id number], [place] [address]- 5427 Jan, Pain R52 [facility] [address] [facility] [id number] [place] [address] 54420- 5600 Jan, Pain R52 [facility] [address], [place] [address]- 7662 Dec, [facility] [address], [place] [address]- 9744 Nov, [facility] [address] [place] [id number] Nov, Type 2 diabetes mellitus with complication E11.8 [facility] [address], [place] [address]- 7994 Nov, [facility] [address], [place] [address]- 9217 Oct, [facility] [address], [place] [address]- 4311 Oct, [facility] [address], [place] [address]- 4054 Oct, Vascular dementia with behavior disturbance F01.51 and Type 2 diabetes mellitus with complication E11.8 [facility] [address], [place] [address]- 2880 August, Type 2 diabetes mellitus with complication E11.8 and Vascular dementia with behavior disturbance F01.51 [facility] [address], [place] [address]- 2357 August, Vascular dementia F01.50 [facility] [address], [place] [address]- 1926 August, Vascular dementia with behavior disturbance F01.51 [facility] [address], [place] [address]- 2546 Jul, Vascular dementia with behavior disturbance F01.51 [facility] [address], [place] [address]- 1766 Jun, Vascular dementia F01.50 [facility] [address], [place] [address]- 0303 Jun, Type 2 diabetes mellitus with complication E11.8 ; Long- term insulin use Z79.4 and Vascular dementia with behavior disturbance F01.51 [place] [address], [place] [address]- 2023 Jun, Vascular dementia with behavior disturbance F01.51 [facility] [address], [place] [address]- 9967 Jun, Vascular dementia F01.50 [place] [address], [place] [address]- 3495 Apr, [facility] [address], [place] [address]- 3885 Apr, [place] [address], [place] [address]- 5747 Apr, [place] [address], [place] [address]- 3361 Apr, Type 2 diabetes mellitus with complication E11.8 ; Depression F32.9 and Long-term insulin use Z79.4 [facility] [id number], [place] [address]- 2548 Mar, [facility] [address] [place] [id number] Mar, Depression F32.9 ; Type 2 diabetes mellitus with complication E11.8 and Long-term insulin use Z79.4 [facility] [address], [place] [address]- 7721 Feb, [facility] [address] 2356 Feb, Hyperthyroidism E05.90 [facility] [address], [place] [address]- 0676 Feb, Hyperthyroidism E05.90 [facility] [address] [place] [address] 36018- 7221 Feb, [facility] [address] [place] [address] 81162- 9525 Jan, [facility] [address], [place] [address]- 0184 Dec, Nicotine addiction 305.1 [facility] [id number] [place] [address] 95152- 2490 Oct, Nicotine abuse 305.1 [facility] [address], [place] [address]- 5665 Oct, [facility] [address] [place] [address] 65039- 5197 August, [place] [address] [place] [id number] August, History of drug abuse 305.93 and Diabetes 250.00 [facility] [address], [place] [address]- 4042 Jul, [facility] [address], [place] [address]- 7001 Jul, [facility] [address] 9847 Jun, [facility] [id number], [place] [address]- 9985 Jun, [facility] [address] [place] [address] [place] [address]- 5631 Jun, [facility] [address] [id number] [place] [address]- 9499 Jun, [facility] [address] [id number] [place] [address]- 2216 Jun, [facility] [address] [id number] [place] [address]- 9070 Jun, [facility] [place] [facility] [address] [id number] [place] [address]- 2973 May, [facility] [address] [id number] [place] [address]- 3291 May, [facility] [address] [id number] [place] [address]- 6443 May, [facility] [address] [id number] [place] [address]- 7571 May, [facility] [address] [id number], [place] [address]- 5922 May, [facility] [address] [id number], [place] [address]- 1295 Apr, [facility] [address] [id number], [place] [address]- 3889 Apr, [address] [place] [id number] Apr, [facility] [address] [id number], [place] [address]- 2069 Apr, [facility] [place] [facility] [address] [id number], [place] [address]- 2652 Apr, [facility] [place] [facility] [address] [id number], [place] [address]- 6329 Apr, [facility] [place] [facility] [address] [id number], [place] [address]- 1648 Apr, [facility] [place] [facility] [address] [id number] [place] [address]- 2100 Apr, [facility] [address] [id number] [place] [address]- 4648 Mar, [facility] [place] [facility] [address] [id number] [place] [address]- 9427 Mar, [facility] [address] [id number] [place] [address]- 7458 Mar, [facility] [place] [facility] [address] [id number] [place] [address]- 6579 Mar, [facility] [place] [facility] [address] [id number] [place] [address]- 9549 Mar, [facility] [address] [id number] [place] [address]- 4156 Mar, [facility] [address] [id number] [place] [address]- 7594 Mar, [facility] [address] [id number] [place] [address]- 5473 Mar, [facility] [address] [id number] [place] [address]- 3286 Feb, [facility] [address] [id number] [place] [address]- 6711 Feb, [facility] [address] [id number] [place] [address]- 8024 Feb, [facility] [address] [id number] [place] [address]- 2802 Feb, [facility] [place] [facility] [address] [id number] [place] [address]- 1492 Feb, [facility] [address] [id number] Feb, [facility] [place] [facility] [address] [id number] [place] [address]- 5946 Feb, [facility] [place] [facility] [address] [id number] [place] [address]- 0687 Feb, [facility] [place] [facility] [address] [id number] [place] [address]- 7023 Feb, [facility] [place] [facility] [address] [id number] [place] 5314 Feb, [facility] [place] [facility] [address] [id number] [place] [address]- 2804 Jan, [facility] [place] [facility] [address] [id number] [place] [address]- 7060 30 Jan, 2014 [facility] [place] [facility] [address] [id number] [place] [address]- 8873 Jan, [facility] [place] [facility] [address] [id number] [place] [address]- 2159 17 Jan, 2014 [facility] [place] [facility] [address] [id number] [place] [address]- 6752 16 Jan, 2014 [facility] [place] [facility] [address] [id number] [place] [address]- 8722 16 Jan, 2014 [facility] [place] [facility] [address] [id number] [place] [address]- 6277 15 Jan, 2014 [facility] [place] [facility] [address] [id number], [place] [address]- 7723 13 Jan, 2014 [facility] [place] [facility] [address] [id number], [place] [address]- 3394 Jan, [facility] [place] [facility] [address] [id number] [place] [address] Jan, [facility] [place] [facility] [address] [id number] [place] [address] Jan, [facility] [place] [facility] [address] [id number] [address] 09 Jan, 2014 [facility] [place] [facility] [address] [id number], [place] [address] 09 Jan, 2013 [facility] [place] [facility] [address] [id number] [place] [address] 08 Jan, 2013 [facility] [place] [facility] [address] [id number] [place] [address] 08 Jan, 2013 [facility] [place] [facility] [address] [id number] [place] [address] Jan, 2013 [facility] [place] [facility] [address] [id number] [place] [address] Jan, 2013 [facility] [place] [facility] [address] [id number] [place] [address] Sep, 2013 [facility] [place] [facility] [address] [id number] [place] [address]- [address] 19 Sep, 2013 [facility] [place] [facility] [address] [id number] [place] [address] 11 Sep, 2013 [facility] [place] [facility] [address] [id number] [place] [address] 11 Sep, 2013 [facility] [place] [facility] [address] [id number] [place] [address] 09 Sep, 2013 [facility] [place] [facility] [address] [id number], [place] [address] 09 Sep, 2013 [facility] [place] [facility] [address] [id number], [place] [address] 08 Sep, 2013 [facility] [place] [facility] [address] [id number], [place] [address] 08 Sep, 2013 [facility] [place] [facility] [address] [id number], [place] [address] 08 Sep, 2013 [facility] [place] [facility] [address] [id number], [place] [address]- [address] 08 Sep, 2013 [facility] [place] [facility] [address] [id number] [place] [address]- [address] 05 Sep, 2013 [facility] [place] [facility] [address] [id number] [place] [address] Dec, [facility] [place] [facility] [address] [id number] [place] [address] Dec, [facility] [place] [facility] [address] [id number] [place] [address] Dec, [facility] [place] [facility] [address] [id number] [place] [address] Nov, [facility] [place] [facility] [address] [id number] [place] [address] Nov, [facility] [place] [facility] [address] [address] [id number] [place] [address] Nov, [facility] [place] [facility] [address] [id number] [place] [address] 1480 Nov, [facility] [place] [facility] [address] [id number] [place] [address] 1982 Nov, [facility] [place] [facility] [address] [id number] [place] [address] 5199 Nov, [facility] [place] [facility] [address] [id number] [place] [address]- 1706 Nov, [facility] [place] [facility] [address] [id number] [place] [address]- 2356 Nov, [facility] [place] [facility] [address] [id number] [place] [address] 7218 Nov, [facility] [place] [facility] [address] [id number] [place] [address] 4995 Nov, [facility] [place] [facility] [address] [id number] [place] [address] 9189 Nov, [facility] [place] [facility] [address] [id number] [place] [address]- 6269 Nov, [facility] [place] [facility] [address] [id number] [place] [address]- 0383 Nov, [facility] [place] [facility] [address] [id number] [place] [address] Nov, [facility] [place] [facility] [address] [id number] [place] [address]- 1643 Oct, [facility] [place] [facility] [address] [id number] [place] [address] 2115 Oct, [facility] [place] [facility] [address] [id number] [place] [address] 9008 Oct, [facility] [place] [facility] [address] [id number] [place] [address]- 6238 Oct, [facility] [place] [facility] [address] [id number] [place] [address]- 3485 Oct, [facility] [place] [facility] [address] [id number] [place] [address] 8858 Oct, [facility] [place] [facility] [address] [id number] [place] [address]- 9150 Oct, [facility] [place] [facility] [address] [id number] [place] [address]- 4629 Oct, [facility] [place] [facility] [address] [id number] [place] [address]- 0809 Oct, [facility] [place] [facility] [address] [id number] [place] [address]- 1120 Oct, [facility] [place] [facility] [address] [id number] [place] [address]- 5076 Oct, [facility] [place] [facility] [address] [id number] [place] [address]- 8808 Oct, [facility] [place] [facility] [address] [id number] [place] [address]- 5114 Oct, [facility] [place] [facility] [address] [id number] [place] [address]- 7016 Oct, [facility] [place] [facility] [address] [id number] [place] [address]- 2417 Oct, [facility] [place] [facility] [address] [id number] [place] [address]- 4111 Oct, [facility] [place] [facility] [address] [id number] [place] [address]- 3479 Oct, [facility] [place] [facility] [address] [id number] [place] [address]- 0203 Oct, [facility] [place] [facility] [address] [id number] [place] [address]- 0506 Oct, [facility] [place] [facility] [address] [id number] [place] [address]- 1169 Oct, [facility] [place] [facility] [address] [id number] [place] [address]- 5865 Sep, [facility] [place] [facility] [address] [id number] [place] [address]- 8230 Sep, [facility] [place] [facility] [address] [id number] [place] [address]- 9086 Sep, [facility] [place] [facility] [address] [id number] [place] [address]- 0940 Sep, [facility] [place] [facility] [address] [id number] [place] [address]- 7017 Sep, [facility] [place] [facility] [address] [id number] [place] [address]- 0042 Sep, [facility] [place] [facility] [address] [id number] [place] [address]- 3060 August, [facility] [place] [facility] [address] [id number] [place] [address]- 7162 August, [facility] [place] [facility] [address] [id number] [place] [address]- 6811 Jul, [facility] [place] [facility] [address] [id number] [place] [address]- 4672 Jul, [facility] [place] [facility] [address] [id number] [place] [address]- 7225 Jul, [facility] [place] [facility] [address] [id number] [place] Jul, [facility] [place] [facility] [address] [id number] [place] [address]- 1276 Jul, [facility] [place] [facility] [address] [id number] [place] [address]- 2978 Jul, [facility] [place] [facility] [address] [id number] [place] [address]- 7820 Jul, [facility] [place] [facility] [address] [id number] [place] [address]- 1008 Jul, [facility] [place] [facility] [address] [facility] [id number] [place] [address]- 6434 Jun, [facility] [place] [facility] [address] [id number] [place] [address]- 7613 Jun, [facility] [place] [facility] [address] [id number] [place] [address]- 4460 Jun, [facility] [place] [facility] [address] [id number] [place] [address]- 2022 Jun, [facility] [place] [facility] [address] [facility] [id number] [place] [address]- 2203 Jun, [facility] [place] [facility] [address] [id number] [place] [address]- 1521 May, [facility] [place] [facility] [address] [id number] [place] [address]- 9223 May, [facility] [place] [facility] [address] [id number] [place] [address]- 0042 May, [facility] [place] [facility] [address] [id number] [place] [address] May, [facility] [place] [facility] [address] [id number] [place] [address]- 9388 May, [facility] [place] [facility] [address] [id number] [place] [address]- 5596 May, [facility] [place] [facility] [address] [id number] [place] [address]- 6426 May, [facility] [place] [facility] [address] [id number] [place] [address]- 0656 May, [facility] [place] [facility] [address] [id number] [place] [address]- 7316 May, [facility] [place] [facility] [address] [id number] [place] [address]- 3446 May, [facility] [place] [facility] [address] [facility] [id number] [place] [address]- 0316 May, [facility] [place] [facility] [address] [facility] [id number] [place] [address]- 3939 Apr, [facility] [place] [facility] [address] [facility] [id number] [place] [address]- 6361 Apr, [facility] [place] [facility] [address] [facility] [id number] [place] [address]- 1836 Mar, [facility] [place] [facility] [address] [facility] [id number] [place] [address]- 6156 Mar, [facility] [place] [facility] [address] [facility] [id number] [place] [address] 2546 Mar, [facility] [place] [facility] [address] [facility] [id number] [place] [address] 2546 Mar, [facility] [place] [facility] [address] [id number] [place] [address] 2546 Mar, [facility] [place] [facility] [address] [facility] [id number] [place] [address]- 2546 Jan, [facility] [place] [facility] [address] [id number] [place] [address]- 3376 Jan, [facility] [place] [facility] [address] [id number] [place] [address]- 7693 Jan, [facility] [place] [facility] [address] [id number] [place] [address]- 2639 Jan, [facility] [place] [facility] [address] [id number] [place] [address]- 9299 Jan, [facility] [place] [facility] [address] [id number] [place] [address]- 7203 Jan, [facility] [address] [id number] [place] [address]- 3727 Jan, [facility] [place] [facility] [address] [id number] [place] [address]- 2468 Jan, [facility] [address] [id number] [place] [address]- 2267 Jan, [facility] [place] [facility] [address] [id number] [place] [address]- 3684 Jan, [facility] [place] [facility] [address] [id number] [place] [address]- 9694 Dec, [facility] [place] [facility] [address] [id number] [place] [address]- 5185 Oct, [facility] [place] [facility] [address] [id number] [place] [address]- 0873 Oct, [facility] [place] [facility] [address] [id number] [place] [address]- 8370 Oct, [facility] [place] [facility] [address] [id number] [place] [address]- 1094 Oct, [facility] [place] [facility] [address] [id number] [place] [address]- 4277 Oct, [facility] [place] [facility] [address] [id number] [place] [address]- 2228 Oct, [facility] [place] [facility] [address] [id number], [place] [address]- 1197 Sep, [facility] [address] [id number] [place] [address]- 2474 August, [facility] [address] [id number] [place] [address]- 3534 August, [facility] [address] [id number] [place] [address]- 5726 August, [facility] [address] [id number] [place] [address]- 2113 August, [facility] [address] [id number] [place] [address]- 9895 August, [facility] [address] [id number] [place] [address]- 5904 May, [facility] [address] [id number] [place] [address]- 8307 Apr, [facility] [address] [id number] [place] [address]- 2340 Apr, [facility] [address] [id number] [place] [address]- 1328 Apr, [facility] [address] [id number] [place] [address]- 6787 Apr, [facility] [address] [id number], [place] [address]- 1104 Apr, [facility] [address] [place] [id number] Mar, [facility] [address] [id number] [place] [address]- 2811 Mar, [facility] [address] [id number] [place] [address]- 0482 Mar, [facility] [address] [id number] [place] [address]- 2007 Mar, [facility] [address] [id number] [place] [address]- 0996 17 Mar, 2012 [facility] [address] [id number] [place] [address]- 8306 17 Mar, 2012 [facility] [place] [facility] [address] [id number] [place] [address]- 5816 13 Mar, 2012 [facility] [address] [id number] [place] [address]- 8316 13 Mar, 2012 [facility] [place] [facility] [address] [id number] [place] [address]- 1096 13 Mar, 2012 [facility] [address] [id number] [place] [address]- 1606 13 Mar, 2012 [facility] [place] [facility] [address] [id number] [place] [address]- 5746 12 Mar, 2012 [facility] [address] [id number] [place] [address]- 5976 12 Mar, 2012 [facility] [place] [facility] [address] [id number] [place] [address]- 9626 10 Mar, 2012 [facility] [place] [facility] [address] [id number] [place] [address]- 9026 10 Mar, 2012 [facility] [address] [id number] [place] [address]- 7196 07 Mar, 2012 [facility] [place] [facility] [address] [id number] [place] [address]- 9606 07 Mar, 2012 [facility] [place] [facility] [address] [id number] [place] [address] 2546 06 Mar, 2012 [facility] [place] [facility] [address] [id number] [place] [address]- 1856 06 Mar, 2012 [facility] [place] [facility] [address] [id number] [place] [address]- 7016 05 Mar, 2012 [facility] [place] [facility] [address] [id number] [place] [address]- 6466 05 Mar, 2012 [facility] [place] [facility] [address] [id number] [place] [address]- 7783 Feb, [facility] [place] [facility] [address] [id number] [place] [address]- 7795 Feb, [facility] [place] [facility] [address] [id number] [place] [address]- 7268 Feb, [facility] [place] [facility] [address] [id number] [place] [address]- 4114 Feb, [facility] [place] [facility] [address] [id number] [place] [address]- 9137 Jan, [facility] [place] [facility] [address] [id number] [place] [address]- 7949 Jan, [facility] [place] [facility] [address] [id number] [place] [address]- 9239 Jan, [facility] [place] [facility] [address] [id number] [place] [address]- 9784 Jan, [facility] [place] [facility] [address] [id number] [place] [address]- 8015 Jan, [facility] [place] [facility] [address] [id number] [place] [address]- 9670 Jan, [facility] [place] [facility] [address] [id number] [place] [address]- 1323 Jan, [facility] [place] [facility] [address] [id number] [place] [address]- 3893 Jan, [facility] [place] [facility] [address] [id number] [place] [address]- 5083 Jan, [facility] [place] [facility] [address] [id number] [place] [address]- 1939 27 Dec, 2011 [facility] [place] [facility] [address] [id number] [place] [address]- 1879 14 Dec, 2011 [facility] [place] [facility] [address] [id number] [place] [address]- 3787 Dec, [facility] [place] [facility] [address] [id number] [place] [address]- 6436 Dec, [facility] [place] [facility] [address] [id number] [place] [address]- 0702 Dec, [facility] [place] [facility] [address] [id number] [place] [address]- 8314 Nov, [facility] [place] [facility] [address] [id number] [place] [address]- 3690 Nov, [facility] [place] [facility] [address] [id number] [place] [address]- 2808 Nov, [facility] [place] [facility] [address] [id number] [place] [address]- 9580 Nov, [facility] [place] [facility] [address] [id number] [place] [address]- 6325 Nov, [facility] [place] [facility] [address] [id number] [place] [address]- 4978 Nov, [facility] [place] [facility] [address] [id number] [place] [address]- 1500 Nov, [facility] [place] [facility] [address] [id number] [place] [address]- 1365 Nov, [facility] [place] [facility] [address] [id number] [place] [address]- 6653 Nov, [facility] [place] [facility] [address] [id number] [place] [address]- 1608 Oct, [facility] [place] [facility] [address] [id number] [place] [address]- 8212 Oct, [facility] [place] [facility] [address] [id number] [place] [address]- 0236 Sep, [facility] [place] [facility] [address] [id number] [place] [address]- 3759 Sep, [facility] [place] [facility] [address] [id number] [place] [address]- 8770 05 Sep, 2011 [facility] [address] [id number] [place] [address]- 0436 14 Aug, 2011 [facility] [address] [id number] [place] [address]- 9761 30 Jul, 2011 [facility] [address] [id number] [place] [address]- 2590 27 Jul, 2011 [facility] [address] [id number] [place] [address]- 5267 27 Jul, 2011 [facility] [address] [id number] [place] [address]- 8511 18 Jul, 2011 [facility] [address] [id number] [place] [address]- 1382 16 Jul, 2011 [facility] [address] [id number] [place] [address]- 8929 16 Jul, 2011 [facility] [address] [id number] [place] [address]- 8962 16 Jul, 2011 [facility] [address] [id number] [place] [address]- 5849 14 Jul, 2011 [facility] [address] [id number] [place] [address]- 8470 12 Jul, 2011 [facility] [address] [id number] [place] [address]- 2678 19 Jun, 2011 [facility] [address] [id number] [place] [address]- 5449 18 Jun, 2011 [facility] [place] [facility] [address] [id number] [place] [address]- 6785 15 Jun, 2011 [facility] [address] [id number] [place] [address]- 1926 12 Jun, 2011 [facility] [address] [id number] [place] [address]- 7101 Jun, [facility] [address] [id number] [place] [address]- 2261 08 Jun, 2011 [facility] [place] [facility] [address] [id number] [place] [address]- 8206 Jun, [facility] [place] [facility] [address] [id number] [place] [address]- 0718 Jun, [facility] [place] [facility] [address] [id number] [place] [address]- 1906 May, [facility] [address] [id number] [place] [address]- 3600 May, [facility] [place] [facility] [address] [id number] [place] [address]- 5615 May, [facility] [address] [id number] [place] [address]- 5118 Apr, [facility] [address] [id number] [place] [address]- 0123 Apr, [facility] [address] [id number] [place] [address]- 6732 Apr, [facility] [address] [id number] [place] [address]- 8824 Mar, [facility] [place] [facility] [address] [id number] [place] [address]- 4466 Mar, [facility] [place] [facility] [address] [id number], [place] [address]- 6478 15 Mar, 2011 [facility] [place] [facility] [address] [id number] [place] [address]- 3366 13 Mar, 2011 [facility] [place] [facility] [address] [id number] [place] [address]- 4166 Mar, [facility] [place] [facility] [address] [id number] [place] [address]- 2256 12 Mar, 2011 [facility] [place] [facility] [address] [id number] [place] 5606 12 Mar, 2011 [facility] [place] [facility] [address] [id number] [place] [address]- 3661 12 Mar, 2011 [facility] [place] [facility] [address] [id number] [place] [address] 08 Mar, 2011 [facility] [place] [facility] [address] [id number] [place] [address] Mar, [facility] [place] [facility] [address] [id number] [place] [address] Mar, [facility] [place] [facility] [address] [id number] [place] [address] Mar, [facility] [place] [facility] [address] [id number] [place] [address] Mar, [facility] [place] [facility] [address] [id number] [place] [address] Mar, [facility] [place] [facility] [address] [id number] [place] [address] Feb, [facility] [place] [facility] [address] [id number] [place] [address] Feb, [facility] [place] [facility] [address] [facility] [id number] [place] [address] Feb, [facility] [place] [facility] [address] [id number] [place] [address] Jan, [facility] [place] [facility] [address] [id number] [place] [address] Jan, [facility] [place] [facility] [address] [id number] [place] [address] Oct, [facility] [place] [facility] [address] [id number] [place] [address] Sep, [facility] [place] [facility] [address] [facility] [id number] [place] [address] Mar, [facility] [place] [facility] [address] [facility] [id number], [place] [address] Mar, [facility] [address] [facility] [id number] [address] Feb, [facility] [address] [facility] [id number], [place] [address] Feb, [facility] [address] [facility] [id number] [place] [address] Jan, [facility] [address] [facility] [id number], [place] [address] Jan, [facility] [address] [facility] [id number] [place] [address] Mar, [facility] [id number] [address] Feb, [facility] [id number] [place] [address] Feb, [facility] [id number], [place] [address] Feb, [facility] [address], [place] [address] Feb, [facility] [id number], [place] [address] Jan, [facility] [id number], [place] [address] Dec, [facility] [address] [id number] [address] Nov, IMMUNIZATIONS No Known Immunizations SOCIAL HISTORY Never Assessed REASON FOR VISIT Routine visit PLAN OF CARE Activity Details Follow Up prn Reason: VITAL SIGNS MEDICATIONS Medication Instructions Dosage Frequency Start Date End Date Duration Status Plavix 75 MG Orally Once a day 1 tablet 24h Active Exelon 9.5 MG/24HR Transdermal Once a day 1 patch to skin 24h Active Remeron 15 MG Orally Once a day 1 tablet at bedtime 24h Active Metformin HCl 1000 MG Orally Twice a day 1 tablet with meals 12h Active Celexa 40 mg Orally Once a day 1 tablet 24h Active NovoLog 100 UNIT/ML Subcutaneous 3 times a day 3 units 8h Active Simvastatin 10 MG Orally Once a day 1 tablet in the evening 24h Active Levemir 100 UNIT/ML Subcutaneous at bedtime 4 units Active Ultram 50 mg Orally 3 times a day 1 tablet 8h 30 Apr, 2016 28 days Active Aspir-81 81 MG Orally Once a day 1 tablet 24h Active Klonopin 0.5 MG Orally Twice a day 2 tablets in AM and 1 in PM 12h August, 28 days Active Lactobacillus - Orally 4 times a day 1 tablet 6h Active Vasotec 2.5 MG Orally Once a day 1 tablet 24h Active Clonidine HCl 0.2 MG Orally twice a day 1 tablet 12h Active Levetiracetam 500 mg Orally Twice a day 1 tablet 12h Active Synthroid 175 MCG Orally Once a day 1 tablet on an empty stomach in the morning 24h Active Metoprolol Tartrate 25 MG Orally Twice a day 1 tablet with food 12h Active Mylanta 200-200-20 MG/5ML Orally every 4 hrs 30 ml as needed 4h Active Aricept 10 mg Orally Once a day 1 tablet at bedtime 24h Dec, 30 day(s) Active Divalproex Sodium 125 MG Orally 4 times a day 2 capsules 6h Active Melatonin 3 MG Orally Once a day 1 tablet at bedtime 24h Active Cholecalciferol 4000 UNIT Orally Once a day 1 tablet 24h Active Tramadol HCl 50 mg Orally 3 times a day 1 tablet as needed 8h Jun, Active RESULTS No Results PROCEDURES Procedure Date Ordered Result Body Site Minor complication (15 mins) August 12, 2017 INSTRUCTIONS MEDICATIONS ADMINISTERED No Known Medications MEDICAL (GENERAL) HISTORY Type Description Date Hospitalization History [facility] March 2015
--- OUTSIDE RECORDS SUMMARY | 2018-02-25 07:53 | XMS REPORT ---
Author Author STEPHANIE CHRISTIANSEN [facility] Address [address] [place] [address] Care Team Providers Care Information Services Manager Name Role Phone STEPHANIE CHRISTIANSEN Unavailable PROBLEMS Type Condition ICD9-CM Code NGL13-KS Code Onset Dates Condition Status SNOMED Code Problem Hyperlipidemia, unspecified hyperlipidemia type E78.5 Active 64129103 Problem Long-term insulin use Z79.4 Active 045729161 Problem Abnormal carotid ultrasound R93.8 Active 749311928 Problem Type 2 diabetes mellitus with complication E11.8 Active 07815568 Problem Positive TB test R76.11 Active 257291485 Problem Vascular dementia with behavior disturbance F01.51 Active 527913693 Problem PVD (peripheral vascular disease) I73.9 Active 420338232 Problem Pain R52 Active 16915776 Problem Other chronic osteomyelitis of left foot M86.672 Active 325831558 Problem Nicotine dependence, unspecified, uncomplicated F17.200 Active 219436123 Problem Peripheral vascular disease due to secondary diabetes E13.51 Active 5364209 Problem Nonintractable epilepsy without status epilepticus, unspecified epilepsy type G40.909 Active 955005773 Problem Recurrent major depressive disorder, remission status unspecified F33.9 Active 31759641 Problem Anxiety F41.9 Active 72186908 Problem Generalized anxiety disorder F41.1 Active 54715709 Problem Vascular dementia F01.50 Active 370796977 Problem Pseudobulbar affect F48.2 Active 51705413 Problem Coronary artery disease involving craig coronary artery of craig heart without angina pectoris I25.10 Active 2302547070395 Problem Gastroesophageal reflux disease without esophagitis K21.9 Active 889645904 Problem Cerebrovascular accident (CVA) due to other mechanism I63.8 Active 646685335 Problem Pulmonary emphysema, unspecified emphysema type J43.9 Active 91110047 Problem Neuropathy G62.9 Active 432189946 Problem Depression F32.9 Active 14568433 Problem Essential hypertension I10 Active 04214190 Problem Acquired hypothyroidism E03.9 Active 868879855 ALLERGIES No Information ENCOUNTERS Encounter Location Date Diagnosis [facility] [id number] [place] [address] 28117- 3444 Oct, Generalized anxiety disorder F41.1 [facility] [id number] [place] [address] 21891- 1280 Oct, Generalized anxiety disorder F41.1 [facility] [address] [id number] Oct, Sepsis, due to unspecified organism A41.9 ; Generalized anxiety disorder F41.1 ; Pain R52 and Depression F32.9 [facility] [id number] [place] [address] 57338- 1142 Oct, [facility] [id number] [place] [address] 94430- 5645 Oct, [facility] [id number] [place] [address] 22972- 9655 Sep, Generalized anxiety disorder F41.1 [facility] [id number] [place] [address] 93501- 7900 Sep, [facility] [id number] [place] [address] 09703- 2661 Sep, Type 2 diabetes mellitus with complication E11.8 [facility] [id number] [place] [address] 88704- 5848 August, Generalized anxiety disorder F41.1 [facility] [id number] [place] [address] 75842- 9055 August, [facility] [address] [id number] August, Type 2 diabetes mellitus with complication E11.8 ; Vascular dementia with behavior disturbance F01.51 ; Long-term insulin use Z79.4 and Nicotine dependence, unspecified, uncomplicated F17.200 [facility] [address] [place] [address] 85662- 2543 August, Generalized anxiety disorder F41.1 [facility] [id number] [address] 1526 Jul, Generalized anxiety disorder F41.1 [facility] [id number] [id number] Jun, Generalized anxiety disorder F41.1 [facility] [id number] [id number] Jun, [facility] [id number] [place] [address] [id number] May, [facility] [address], [place] [address] 2546 May, [facility] [id number] [place] [address] [id number] May, Generalized anxiety disorder F41.1 [facility] [id number] [place] [address] 97973- 2716 Apr, [facility] [address] [facility] [address] [place] [id number] Apr, Other chronic osteomyelitis of left foot M86.672 ; Type 2 diabetes mellitus with complication E11.8 ; Vascular dementia F01.50 ; Long-term insulin use Z79.4 ; PVD (peripheral vascular disease) I73.9 and Nicotine abuse 305.1 [facility] [address] [id number], [place] [address]- 1410 Apr, [facility] [id number] [id number] Apr, [facility] [address] [id number], [place] [address]- 2742 Apr, Pain R52 and Generalized anxiety disorder F41.1 [facility] [address], [place] [address]- 1556 Mar, [facility] [address] [id number], [place] [address]- 1447 Mar, Pain R52 and Generalized anxiety disorder F41.1 [facility] [address] [place] [id number] Feb, Depression F32.9 ; Type 2 diabetes mellitus with complication E11.8 and Nicotine dependence, unspecified, uncomplicated F17.200 [facility] [id number] [place] [address] 95243- 1102 Feb, Generalized anxiety disorder F41.1 and Pain R52 [facility] [id number] [place] [address] 67455- 7500 Feb, [facility] [id number] [place] [address] 14204- 2637 Jan, [facility] [address] 19664- 5889 Jan, Generalized anxiety disorder F41.1 and Pain R52 [facility] [id number] [place] [address] 67926- 5861 Jan, [facility] [id number] [place] [address] [id number] Dec, Generalized anxiety disorder F41.1 and Pain R52 [facility] [address] [place] [id number] Dec, Vascular dementia F01.50 ; Pain of left leg M79.605 ; Pain in right leg M79.604 and Type 2 diabetes mellitus with complication E11.8 [facility] [id number] [place] [address] 57732- 5628 Dec, Pain R52 [facility] [id number] [place] [address] 23434- 1800 Dec, [facility] [id number] [place] [address] 02304- 5184 Nov, [facility] [id number] [place] [address] 64971- 4476 Nov, Pain R52 and Generalized anxiety disorder F41.1 [facility] [address] [place] [id number] Aug, 2017 Depression F32.9 ; Vascular dementia with behavior disturbance F01.51 and Anxiety F41.9 [facility] [id number] [place] [address] 10856- 6756 Nov, Pain R52 and Generalized anxiety disorder F41.1 [facility] [id number] [place] [address] 52152- 0312 Oct, Generalized anxiety disorder F41.1 [facility] [id number] [place] [address] 69563- 1480 Oct, Pain R52 [facility] [id number] [place] [address] 08963- 9124 Sep, [facility] [address] [facility] [place] [id number] Sep, Generalized anxiety disorder F41.1 [facility] [id number] [place] [address] 13357- 0186 Sep, Pain R52 [facility] [id number] [place] [address] 67548- 7060 Sep, Generalized anxiety disorder F41.1 [facility] [id number] [place] [address] 01038- 4251 August, [facility] [id number] [place] [address] 52848- 5624 August, [facility] [id number] [place] [address] 52762- 0299 August, Pain R52 [facility] [id number] [place] [address] 58126- 1799 August, Generalized anxiety disorder F41.1 [facility] [address] [id number] August, Generalized anxiety disorder F41.1 [facility] [id number] [place] [address] 14040- 2819 Jul, Pain R52 [facility] [id number] [place] [address] [id number]- 8555 Jul, [facility] [id number] [place] [address] [id number] Jul, [facility] [id number] [place] [address] 026664- 0789 Jun, [facility] [id number] [place] [address] [id number] Jun, Depression F32.9 [facility] [id number] [place] [address] 14252- 0746 Jun, Pain R52 [facility] [id number] [place] [address] 27169- 9899 Jun, [facility] [address] [place] [id number] Jun, Vascular dementia F01.50 and Depression F32.9 [facility] [id number] [place] [address] 57137- 4080 May, Pain R52 [facility] [id number] [place] [address] 78473- 5337 May, [facility] [id number] [place] [address] 02348- 8757 May, Pseudobulbar affect F48.2 [facility] [id number] [place] [address] 17036- 2892 May, [facility] [id number] [place] [address] 45436- 1997 May, PVD (peripheral vascular disease) I73.9 [facility] [id number] [place] [address] 62553- 9213 08 May, 2016 Vascular dementia with behavior disturbance F01.51 [facility] [address] [place] [address] 58155- 2356 02 May, 2016 Vascular dementia with behavior disturbance F01.51 [facility] [id number] [place] [address] 93085- 3949 Apr, [facility] [id number] [place] [address] 44933- 5218 Apr, Pain R52 [facility] [address] [place] [id number] Apr, Generalized anxiety disorder F41.1 ; PVD (peripheral vascular disease) I73.9 and Type 2 diabetes mellitus with complication E11.8 [facility] [id number] [place] [address] 88853- 5482 Apr, Vascular dementia with behavior disturbance F01.51 [facility] [id number] [place] [address] 14337- 6654 Apr, [facility] [id number] [place] [address] 12701- 6154 Apr, Vascular dementia with behavior disturbance F01.51 [facility] [id number] [place] [address] 14351- 4658 Apr, [facility] [id number] [place] [address] [id number] Mar, [facility] [id number] [place] [address] 87863- 9715 Mar, Type 2 diabetes mellitus with complication E11.8 ; Vascular dementia with behavior disturbance F01.51 and Depression F32.9 [facility] [id number] [place] [address] 54751- 7804 Mar, [facility] [id number] [place] [address] 13791- 1183 Feb, [facility] [id number] [place] [address] 39860- 8961 Feb, Viral illness B34.9 [facility] [id number] [place] [address] 61779- 4748 Jan, Diabetes 250.00 [facility] [id number] [place] [address] 72307- 6380 Jan, [facility] [address] [facility] [id number], [place] [address]- 7748 Jan, [facility] [address] [facility] [id number], [place] [address]- 2336 Jan, [facility] [address] [id number] Jan, Vascular dementia with behavior disturbance F01.51 and Type 2 diabetes mellitus with complication E11.8 [facility] [address] [facility] [id number], [place] [address]- 9938 Jan, Pain R52 [facility] [address] [facility] [id number] [place] [address] 95800- 5582 Jan, Pain R52 [facility] [address], [place] [address]- 3645 Dec, [facility] [address], [place] [address]- 1898 Nov, [facility] [address] [place] [id number] Nov, Type 2 diabetes mellitus with complication E11.8 [facility] [address], [place] [address]- 4231 Nov, [facility] [address], [place] [address]- 3433 Oct, [facility] [address], [place] [address]- 0277 Oct, [facility] [address], [place] [address]- 4148 Oct, Vascular dementia with behavior disturbance F01.51 and Type 2 diabetes mellitus with complication E11.8 [facility] [address], [place] [address]- 8396 August, Type 2 diabetes mellitus with complication E11.8 and Vascular dementia with behavior disturbance F01.51 [facility] [address], [place] [address]- 7284 August, Vascular dementia F01.50 [facility] [address], [place] [address]- 8656 August, Vascular dementia with behavior disturbance F01.51 [facility] [address], [place] [address]- 2546 Jul, Vascular dementia with behavior disturbance F01.51 [facility] [address], [place] [address]- 8366 Jun, Vascular dementia F01.50 [facility] [address], [place] [address]- 8754 Jun, Type 2 diabetes mellitus with complication E11.8 ; Long- term insulin use Z79.4 and Vascular dementia with behavior disturbance F01.51 [facility] [address], [place] [address]- 1627 Jun, Vascular dementia with behavior disturbance F01.51 [facility] [address], [place] [address]- 0251 Jun, Vascular dementia F01.50 [facility] [address], [place] [address]- 8716 Apr, [facility] [address], [place] [address]- 7481 Apr, [facility] [address], [place] [address]- 9201 Apr, [facility] [address], [place] [address]- 8564 Apr, Type 2 diabetes mellitus with complication E11.8 ; Depression F32.9 and Long-term insulin use Z79.4 [facility] [id number], [place] [address]- 2545 Mar, [facility] [address] [place] [id number] Mar, Depression F32.9 ; Type 2 diabetes mellitus with complication E11.8 and Long-term insulin use Z79.4 [facility] [address], [place] [address]- 7047 Feb, [facility] [address]- 6206 Feb, Hyperthyroidism E05.90 [facility] [address], [place] [address]- 9606 Feb, Hyperthyroidism E05.90 [facility] [address] [place] [address] 96314- 6007 Feb, [facility] [address] [place] [address] 73022- 4022 Jan, [facility] [address], [place] [address]- 4113 Dec, Nicotine addiction 305.1 [facility] [id number] [place] [address] 82005- 7371 Oct, Nicotine abuse 305.1 [facility] [address], [place] [address]- 9099 Oct, [facility] [address] [place] [address] 94980- 7357 August, [facility] [place] [id number] August, History of drug abuse 305.93 and Diabetes 250.00 [facility] [address], [place] [address]- 8968 Jul, [facility] [address], [place] [address]- 0709 Jul, [facility] [address] 5819 Jun, [facility] [id number], [place] [address]- 8516 Jun, [facility] [address] [place] [address] [place] [address]- 3794 Jun, [facility] [address] [id number] [place] [address]- 6599 Jun, [facility] [address] [id number] [place] [address]- 8736 Jun, [facility] [address] [id number] [place] [address]- 0493 Jun, [facility] [place] [facility] [address] [id number] [place] [address]- 9826 May, [facility] [address] [id number] [place] [address]- 8661 May, [facility] [address] [id number] [place] [address]- 9973 May, [facility] [address] [id number] [place] [address]- 1109 May, [facility] [address] [id number], [place] [address]- 4816 May, [facility] [address] [id number], [place] [address]- 2418 Apr, [facility] [address] [id number], [place] [address]- 8214 Apr, [address] [place] [id number] Apr, [facility] [address] [id number], [place] [address]- 6585 Apr, [facility] [place] [facility] [address] [id number], [place] [address]- 6146 Apr, [facility] [place] [facility] [address] [id number], [place] [address]- 4845 Apr, [facility] [place] [facility] [address] [id number], [place] [address]- 8865 Apr, [facility] [place] [facility] [address] [id number] [place] [address]- 8598 Apr, [facility] [address] [id number] [place] [address]- 2850 Mar, [facility] [place] [facility] [address] [id number] [place] [address]- 1827 Mar, [facility] [address] [id number] [place] [address]- 8451 Mar, [facility] [place] [facility] [address] [id number] [place] [address]- 0039 Mar, [facility] [place] [facility] [address] [id number] [place] [address]- 9838 Mar, [facility] [address] [id number] [place] [address]- 8954 Mar, [facility] [address] [id number] [place] [address]- 3952 Mar, [facility] [address] [id number] [place] [address]- 0761 Mar, [facility] [address] [id number] [place] [address]- 8594 Feb, [facility] [address] [id number] [place] [address]- 3460 Feb, [facility] [address] [id number] [place] [address]- 8166 Feb, [facility] [address] [id number] [place] [address]- 0445 Feb, [facility] [place] [facility] [address] [id number] [place] [address]- 0777 Feb, [facility] [address] [place] [id number] Feb, [facility] [place] [facility] [address] [id number] [place] [address]- 9675 Feb, [facility] [place] [facility] [address] [id number] [place] [address]- 2959 Feb, [facility] [place] [facility] [address] [id number] [place] [address]- 7870 Feb, [facility] [place] [facility] [address] [id number] [place] 3755 Feb, [facility] [place] [facility] [address] [id number] [place] [address]- 3693 Jan, [facility] [place] [facility] [address] [id number] [place] [address]- 9419 30 Jan, 2014 [facility] [place] [facility] [address] [id number] [place] [address]- 4115 Jan, [facility] [place] [facility] [address] [id number] [place] [address]- 1614 17 Jan, 2014 [facility] [place] [facility] [address] [id number] [place] [address]- 8949 16 Jan, 2014 [facility] [place] [facility] [address] [id number] [place] [address]- 6224 16 Jan, 2014 [facility] [place] [facility] [address] [id number] [place] [address]- 9699 15 Jan, 2014 [facility] [place] [facility] [address] [id number], [place] [address]- 2002 13 Jan, 2014 [facility] [place] [facility] [address] [id number], [place] [address]- 9158 Jan, [facility] [place] [facility] [address] [id number] [place] [address]- 1500 Jan, [facility] [place] [facility] [address] [id number] [place] [address]- 2831 Jan, [facility] [place] [facility] [address] [id number][place] 2910 09 Jan, 2014 [facility] [place] [facility] [address] [id number], [place] [address]- 8808 09 Jan, 2013 [facility] [place] [facility] [address] [id number] [place] [address]- 0725 08 Jan, 2013 [facility] [place] [facility] [address] [id number] [place] [address]- 6263 08 Jan, 2013 [facility] [place] [facility] [address] [id number] [place] [address] Jan, 2013 [facility] [place] [facility] [address] [id number] [place] [address] Jan, 2013 [facility] [place] [facility] [address] [id number] [place] [address] Sep, 2013 [facility] [place] [facility] [address] [id number] [place] [address] 19 Sep, 2013 [facility] [place] [facility] [address] [id number] [place] [address] 11 Sep, 2013 [facility] [place] [facility] [address] [id number] [place] [address]- [address] 11 Sep, 2013 [facility] [place] [facility] [address] [id number] [place] [address] 09 Sep, 2013 [facility] [place] [facility] [address] [id number], [place] [address] 09 Sep, 2013 [facility] [place] [facility] [address] [id number], [place] [address] 08 Sep, 2013 [facility] [place] [facility] [address] [id number], [place] [address] 08 Sep, 2013 [facility] [place] [facility] [address] [id number], [place] [address] 08 Sep, 2013 [facility] [place] [facility] [address] [id number], [place] [address] 08 Sep, 2013 [facility] [place] [facility] [address] [id number] [place] [address]- [address] 05 Sep, 2013 [facility] [place] [facility] [address] [id number] [place] [address] Dec, [facility] [place] [facility] [address] [id number] [place] [address] Dec, [facility] [place] [facility] [address] [id number] [place] [address] Dec, [facility] [place] [facility] [address] [id number] [place] [address] Nov, [facility] [place] [facility] [address] [id number] [place] [address] Nov, [facility] [place] [facility] [address] [id number] [place] [address] Nov, [facility] [place] [facility] [address] [id number] [place] [address] Nov, [facility] [place] [facility] [address] [id number] [place] [address] Nov, [facility] [place] [facility] [address] [id number] [place] [address] Nov, [facility] [place] [facility] [address] [id number] [place] [address] Nov, [facility] [place] [facility] [address] [id number] [place] [address] Nov, [facility] [place] [facility] [address] [id number] [place] [address] 5734 Nov, [facility] [place] [facility] [address] [id number] [place] [address] 5800 Nov, [facility] [place] [facility] [address] [id number] [place] [address] 3470 Nov, [facility] [place] [facility] [address] [id number] [place] [address]- 3923 Nov, [facility] [place] [facility] [address] [id number] [place] [address]- 7560 Nov, [facility] [place] [facility] [address] [id number] [place] [address] Nov, [facility] [place] [facility] [address] [id number] [place] [address] 5493 Oct, [facility] [place] [facility] [address] [id number] [place] [address]- 9120 Oct, [facility] [place] [facility] [address] [id number] [place] [address]- 9436 Oct, [facility] [place] [facility] [address] [id number] [place] [address]- 5163 Oct, [facility] [place] [facility] [address] [id number] [place] [address]- 1046 Oct, [facility] [place] [facility] [address] [id number] [place] [address]- 3736 Oct, [facility] [place] [facility] [address] [id number] [place] [address]- 5016 Oct, [facility] [place] [facility] [address] [id number] [place] [address]- 9526 Oct, [facility] [place] [facility] [address] [id number] [place] [address]- 4244 Oct, [facility] [place] [facility] [address] [id number] [place] [address]- 5915 Oct, [facility] [place] [facility] [address] [id number] [place] [address]- 3513 Oct, [facility] [place] [facility] [address] [id number] [place] [address]- 3299 Oct, [facility] [place] [facility] [address] [id number] [place] [address]- 3082 Oct, [facility] [place] [facility] [address] [id number] [place] [address]- 9722 Oct, [facility] [place] [facility] [address] [id number] [place] [address]- 5212 Oct, [facility] [place] [facility] [address] [id number] [place] [address]- 3512 Oct, [facility] [place] [facility] [address] [id number] [place] [address]- 9109 Oct, [facility] [place] [facility] [address] [id number] [place] [address]- 6965 Oct, [facility] [place] [facility] [address] [id number] [place] [address]- 5545 Oct, [facility] [place] [facility] [address] [id number] [place] [address]- 8609 Oct, [facility] [place] [facility] [address] [id number] [place] [address]- 7209 Sep, [facility] [place] [facility] [address] [id number] [place] [address]- 2526 Sep, [facility] [place] [facility] [address] [id number] [place] [address]- 5782 Sep, [facility] [place] [facility] [address] [id number] [place] [address]- 6088 Sep, [facility] [place] [facility] [address] [id number] [place] [address]- 1144 Sep, [facility] [place] [facility] [address] [id number] [place] [address]- 6135 Sep, [facility] [place] [facility] [address] [id number] [place] [address]- 6822 August, [facility] [place] [facility] [address] [id number] [place] [address]- 5151 August, [facility] [place] [facility] [address] [id number] [place] [address]- 4928 Jul, [facility] [place] [facility] [address] [id number] [place] [address]- 5904 Jul, [facility] [place] [facility] [address] [id number] [place] [address]- 5529 Jul, [facility] [place] [facility] [address] [id number] [place] [address] Jul, [facility] [place] [facility] [address] [id number] [place] [address]- 3626 Jul, [facility] [place] [facility] [address] [id number] [place] [address]- 0551 Jul, [facility] [place] [facility] [address] [id number] [place] [address]- 8581 Jul, [facility] [place] [facility] [address] [id number] [place] [address]- 4159 Jul, [facility] [place] [facility] [address] [facility] [id number] [place] [address]- 5217 Jun, [facility] [place] [facility] [address] [id number] [place] [address]- 8485 Jun, [facility] [place] [facility] [address] [id number] [place] [address]- 7591 Jun, [facility] [place] [facility] [address] [id number] [place] [address]- 0016 Jun, [facility] [place] [facility] [address] [facility] [id number] [place] [address]- 5288 Jun, [facility] [place] [facility] [address] [id number] [place] [address]- 2783 May, [facility] [place] [facility] [address] [id number] [place] [address]- 9524 May, [facility] [place] [facility] [address] [id number] [place] [address]- 9645 May, [facility] [place] [facility] [address] [id number] [place] May, [facility] [place] [facility] [address] [id number] [place] [address]- 0060 May, [facility] [place] [facility] [address] [id number] [place] [address]- 6676 May, [facility] [place] [facility] [address] [id number] [place] [address]- 3316 May, [facility] [place] [facility] [address] [id number] [place] [address]- 3736 May, [facility] [place] [facility] [address] [id number] [place] [address]- 2636 May, [facility] [place] [facility] [address] [id number] [place] [address]- 7436 May, [facility] [place] [facility] [address] [facility] [id number] [place] [address]- 3196 May, [facility] [place] [facility] [address] [facility] [id number] [place] [address]- 6392 Apr, [facility] [place] [facility] [address] [facility] [id number] [place] [address]- 7168 Apr, [facility] [place] [facility] [address] [facility] [id number] [place] [address]- 8495 Mar, [facility] [place] [facility] [address] [facility] [id number] [place] [address]- 2795 Mar, [facility] [place] [facility] [address] [facility] [id number] [place] [address] 2546 Mar, [facility] [place] [facility] [address] [facility] [id number] [place] [address] 2546 Mar, [facility] [place] [facility] [address] [id number] [place] [address] 2546 Mar, [facility] [place] [facility] [address] [facility] [id number] [place] [address]- 2546 Jan, [facility] [place] [facility] [address] [id number] [place] [address]- 8960 Jan, [facility] [place] [facility] [address] [id number] [place] [address]- 1234 Jan, [facility] [place] [facility] [address] [id number] [place] [address]- 0437 Jan, [facility] [place] [facility] [address] [id number] [place] [address]- 2906 Jan, [facility] [place] [facility] [address] [id number] [place] [address]- 6861 Jan, [facility] [address] [id number] [place] [address]- 2459 Jan, [facility] [place] [facility] [address] [id number] [place] [address]- 8074 Jan, [facility] [address] [id number] [place] [address]- 5068 Jan, [facility] [place] [facility] [address] [id number] [place] [address]- 1863 Jan, [facility] [place] [facility] [address] [id number] [place] [address]- 0633 Dec, [facility] [place] [facility] [address] [id number] [place] [address]- 4371 Oct, [facility] [place] [facility] [address] [id number] [place] [address]- 3936 Oct, [facility] [place] [facility] [address] [id number] [place] [address]- 1752 Oct, [facility] [place] [facility] [address] [id number] [place] [address]- 0029 Oct, [facility] [place] [facility] [address] [id number] [place] [address]- 8133 Oct, [facility] [place] [facility] [address] [id number] [place] [address]- 8741 Oct, [facility] [place] [facility] [address] [id number] [address]- 3791 Sep, [facility] [address] [id number] [place] [address]- 4075 August, [facility] [address] [id number] [place] [address]- 0130 August, [facility] [address] [id number] [place] [address]- 0254 August, [facility] [address] [id number] [place] [address]- 6644 August, [facility] [address] [id number] [place] [address]- 6041 August, [facility] [address] [id number] [place] [address]- 7711 May, [facility] [address] [id number] [place] [address]- 6475 Apr, [facility] [address] [id number] [place] [address]- 0153 Apr, [facility] [address] [id number] [place] [address]- 2334 Apr, [facility] [address] [id number] [place] [address]- 0582 Apr, [facility] [address] [id number], [place] [address]- 8130 Apr, [facility] [place] [id number] Mar, [facility] [address] [id number] [place] [address]- 3559 Mar, [facility] [address] [id number] [place] [address]- 8857 Mar, [facility] [address] [id number] [place] [address]- 4546 Mar, [facility] [address] [id number] [place] [address]- 7726 17 Mar, 2012 [facility] [address] [id number] [place] [address]- 2456 17 Mar, 2012 [facility] [place] [facility] [address] [id number] [place] [address]- 6716 13 Mar, 2012 [facility] [address] [id number] [place] [address]- 2006 13 Mar, 2012 [facility] [place] [facility] [address] [id number] [place] [address]- 6646 13 Mar, 2012 [facility] [address] [id number] [place] [address]- 4566 13 Mar, 2012 [facility] [place] [facility] [address] [id number] [place] [address]- 9496 12 Mar, 2012 [facility] [address] [id number] [place] [address]- 5886 12 Mar, 2012 [facility] [place] [facility] [address] [id number] [place] [address]- 3133 10 Mar, 2012 [facility] [place] [facility] [address] [id number] [place] [address]- 6396 10 Mar, 2012 [facility] [address] [id number] [place] [address]- 5456 07 Mar, 2012 [facility] [place] [facility] [address] [id number] [place] [address]- 7926 07 Mar, 2012 [facility] [place] [facility] [address] [id number] [place] [address] 2546 06 Mar, 2012 [facility] [place] [facility] [address] [id number] [place] [address]- 1886 06 Mar, 2012 [facility] [place] [facility] [address] [id number] [place] [address]- 7626 05 Mar, 2012 [facility] [place] [facility] [address] [id number] [place] [address]- 8756 05 Mar, 2012 [facility] [place] [facility] [address] [id number] [place] [address]- 5855 Feb, [facility] [place] [facility] [address] [id number] [place] [address]- 4611 Feb, [facility] [place] [facility] [address] [id number] [place] [address]- 2961 Feb, [facility] [place] [facility] [address] [id number] [place] [address]- 6945 Feb, [facility] [place] [facility] [address] [id number] [place] [address]- 3181 Jan, [facility] [place] [facility] [address] [id number] [place] [address]- 4177 Jan, [facility] [place] [facility] [address] [id number] [place] [address]- 0131 Jan, [facility] [place] [facility] [address] [id number] [place] [address]- 2303 Jan, [facility] [place] [facility] [address] [id number] [place] [address]- 4102 Jan, [facility] [place] [facility] [address] [id number] [place] [address]- 3482 Jan, [facility] [place] [facility] [address] [id number] [place] [address]- 6799 Jan, [facility] [place] [facility] [address] [id number] [place] [address]- 8376 Jan, [facility] [place] [facility] [address] [id number] [place] [address]- 5281 Jan, [facility] [place] [facility] [address] [id number] [place] [address]- 7061 27 Dec, 2011 [facility] [place] [facility] [address] [id number] [place] [address]- 6231 14 Dec, 2011 [facility] [place] [facility] [address] [id number] [place] [address]- 6048 Dec, [facility] [place] [facility] [address] [id number] [place] [address]- 0551 Dec, [facility] [place] [facility] [address] [id number] [place] [address]- 5208 Dec, [facility] [place] [facility] [address] [id number] [place] [address]- 3005 Nov, [facility] [place] [facility] [address] [id number] [place] [address]- 0025 Nov, [facility] [place] [facility] [address] [id number] [place] [address]- 9167 Nov, [facility] [place] [facility] [address] [id number] [place] [address]- 9552 Nov, [facility] [place] [facility] [address] [id number] [place] [address]- 9746 Nov, [facility] [place] [facility] [address] [id number] [place] [address]- 2895 Nov, [facility] [place] [facility] [address] [id number] [place] [address]- 9734 Nov, [facility] [place] [facility] [address] [id number] [place] [address]- 6872 Nov, [facility] [place] [facility] [address] [id number] [place] [address]- 2353 Nov, [facility] [place] [facility] [address] [id number] [place] [address]- 5938 Oct, [facility] [place] [facility] [address] [id number] [place] [address]- 5245 Oct, [facility] [place] [facility] [address] [id number] [place] [address]- 7659 Sep, [facility] [place] [facility] [address] [id number] [place] [address]- 0656 Sep, [facility] [place] [facility] [address] [id number] [place] [address]- 7005 05 Sep, [address] [facility] [address] [id number] [place] [address]- 0178 14 Aug, 2011 [facility] [address] [id number] [place] [address]- 9026 30 Jul, 2011 [facility] [address] [id number] [place] [address]- 7671 27 Jul, 2011 [facility] [address] [id number] [place] [address]- 4866 27 Jul, 2011 [facility] [address] [id number] [place] [address]- 7061 18 Jul, [address] [facility] [address] [id number] [place] [address]- 6084 16 Jul, [address] [facility] [address] [id number] [place] [address]- 6195 16 Jul, [address] [facility] [address] [id number] [place] [address]- 1576 16 Jul, [address] [facility] [address] [id number] [place] [address]- 3130 14 Jul, 2011 [facility] [address] [id number] [place] [address]- 6908 12 Jul, [address] [facility] [address] [id number] [place] [address]- 6062 19 Jun, [address] [facility] [address] [id number] [place] [address]- 5783 18 Jun, 2011 [facility] [place] [facility] [address] [id number] [place] [address]- 1141 15 Jun, 2011 [facility] [address] [id number] [place] [address]- 6997 12 Jun, [address] [facility] [address] [id number] [place] [address]- 7100 Jun, [facility] [address] [id number] [place] [address]- 3908 08 Jun, 2011 [facility] [place] [facility] [address] [id number] [place] [address]- 4766 Jun, [facility] [place] [facility] [address] [id number] [place] [address]- 6516 Jun, [facility] [place] [facility] [address] [id number] [place] [address]- 3446 May, [facility] [address] [id number] [place] [address]- 0811 May, [facility] [place] [facility] [address] [id number] [place] [address]- 6654 May, [facility] [address] [id number] [place] [address]- 1236 Apr, [facility] [address] [id number] [place] [address]- 9775 Apr, [facility] [address] [id number] [place] [address]- 2676 Apr, [facility] [address] [id number] [place] [address]- 2516 Mar, [facility] [place] [facility] [address] [id number] [place] [address]- 2142 Mar, [facility] [place] [facility] [address] [id number], [place] [address]- 7548 15 Mar, 2011 [facility] [place] [facility] [address] [id number] [place] [address]- 2986 13 Mar, 2011 [facility] [place] [facility] [address] [id number] [place] [address]- 3019 Mar, [facility] [place] [facility] [address] [id number] [place] [address]- 5826 12 Mar, 2011 [facility] [place] [facility] [address] [id number] [place] 5967 12 Mar, 2011 [facility] [place] [facility] [address] [id number] [place] [address]- 8037 12 Mar, 2011 [facility] [place] [facility] [address] [id number] [place] 2156 08 Mar, 2011 [facility] [place] [facility] [address] [id number] [place] [address]- 9809 Mar, [facility] [place] [facility] [address] [id number] [place] [address]- 5502 Mar, [facility] [place] [facility] [address] [id number] [place] 8623 Mar, [facility] [place] [facility] [address] [id number] [place] [address]- 8584 Mar, [facility] [place] [facility] [address] [id number] [place] [address]- 7960 Mar, [facility] [place] [facility] [address] [id number] [place] [address]- 6334 Feb, [facility] [place] [facility] [address] [id number] [place] [address]- [address] Feb, [facility] [place] [facility] [address] [facility] [id number] [place] [address] Feb, [facility] [place] [facility] [address] [id number] [place] [address] Jan, [facility] [place] [facility] [address] [id number] [place] [address] Jan, [facility] [place] [facility] [address] [id number] [place] [address] Oct, [facility] [place] [facility] [address] [id number] [place] [address] Sep, [facility] [place] [facility] [address] [facility] [id number] [place] [address] Mar, [facility] [place] [facility] [address] [facility] [id number], [place] [address] Mar, [facility] [address] [facility] [id number], [place] [address] Feb, [facility] [address] [facility] [id number], [place] [address] Feb, [facility] [address] [facility] [id number] [place] [address] Jan, [facility] [address] [facility] [id number], [place] [address] Jan, [facility] [id number] [place] [address] Mar, [facility] [id number], [place] [address] Feb, [facility] [id number] [place] [address] Feb, [facility] [id number], [place] [address] Feb, [facility] [id number], [place] [address] Feb, [facility] [id number], [place] [address] Jan, [facility] [id number], [place] [address] Dec, [facility] [address] [id number] [address] Nov, IMMUNIZATIONS No Known Immunizations SOCIAL HISTORY [...]
--- OUTSIDE RECORDS SUMMARY | 2018-02-25 07:54 | XMS REPORT ---
Author Author STEPHANIE CHRISTIANSEN [facility] Address [address] [place] [address] Care Team Providers Care Photographic Equipment Technician Name Role Phone STEPHANIE CHRISTIANSEN Unavailable PROBLEMS Type Condition ICD9-CM Code DYJ31-CV Code Onset Dates Condition Status SNOMED Code Problem Hyperlipidemia, unspecified hyperlipidemia type E78.5 Active 01614341 Problem Long-term insulin use Z79.4 Active 554035696 Problem Abnormal carotid ultrasound R93.8 Active 843334234 Problem Type 2 diabetes mellitus with complication E11.8 Active 26660653 Problem Positive TB test R76.11 Active 853713511 Problem Vascular dementia with behavior disturbance F01.51 Active 771695983 Problem PVD (peripheral vascular disease) I73.9 Active 268159272 Problem Pain R52 Active 49005335 Problem Other chronic osteomyelitis of left foot M86.672 Active 027139092 Problem Nicotine dependence, unspecified, uncomplicated F17.200 Active 376068318 Problem Peripheral vascular disease due to secondary diabetes E13.51 Active 8407712 Problem Nonintractable epilepsy without status epilepticus, unspecified epilepsy type G40.909 Active 170327335 Problem Recurrent major depressive disorder, remission status unspecified F33.9 Active 78355338 Problem Anxiety F41.9 Active 91555677 Problem Generalized anxiety disorder F41.1 Active 36721470 Problem Vascular dementia F01.50 Active 680651710 Problem Pseudobulbar affect F48.2 Active 53782206 Problem Coronary artery disease involving ambler coronary artery of ambler heart without angina pectoris I25.10 Active 0050923554317 Problem Gastroesophageal reflux disease without esophagitis K21.9 Active 497618217 Problem Cerebrovascular accident (CVA) due to other mechanism I63.8 Active 998255976 Problem Pulmonary emphysema, unspecified emphysema type J43.9 Active 71836973 Problem Neuropathy G62.9 Active 948669974 Problem Depression F32.9 Active 23996662 Problem Essential hypertension I10 Active 32368019 Problem Acquired hypothyroidism E03.9 Active 408151554 ALLERGIES No Information ENCOUNTERS Encounter Location Date Diagnosis [place] [id number] [place] [address] 77367- 9094 Oct, Generalized anxiety disorder F41.1 [facility] [address] [place] [id number] Oct, Sepsis, due to unspecified organism A41.9 ; Generalized anxiety disorder F41.1 ; Pain R52 and Depression F32.9 [place] [id number] [place] [address] 79750- 2166 Oct, [place] [address] 84304- 2067 Oct, [place] [id number] [place] [address] 76434- 6155 Sep, Generalized anxiety disorder F41.1 [place] [address] 57251- 4253 Sep, [place] [id number] [place] [address] 19047- 2318 Sep, Type 2 diabetes mellitus with complication E11.8 [place] [id number] [place] [address] 50228- 8789 August, Generalized anxiety disorder F41.1 [place] [id number] [place] [address] 67098- 6047 August, [facility] [address] [place] [id number] August, Type 2 diabetes mellitus with complication E11.8 ; Vascular dementia with behavior disturbance F01.51 ; Long-term insulin use Z79.4 and Nicotine dependence, unspecified, uncomplicated F17.200 [place] [id number] [place] [address] 88261- 7454 August, Generalized anxiety disorder F41.1 [place] [id number] [place] [address] 70060- 0340 Jul, Generalized anxiety disorder F41.1 [facility] [address] [id number] [id number] Jun, Generalized anxiety disorder F41.1 [facility] [address] [id number] [id number] Jun, [facility] [id number] [id number] May, [facility] [address] [address] 6966 May, [facility] [address] [id number][place] [id number] May, Generalized anxiety disorder F41.1 [facility] [address] [id number] [address]- 6456 Apr, [facility] [address] [id number] Apr, Other chronic osteomyelitis of left foot M86.672 ; Type 2 diabetes mellitus with complication E11.8 ; Vascular dementia F01.50 ; Long-term insulin use Z79.4 ; PVD (peripheral vascular disease) I73.9 and Nicotine abuse 305.1 [facility] [address] [id number], [place] [address] 0615 Apr, [facility] [id number] [id number] Apr, [facility] [address] [id number] 7327 Apr, Pain R52 and Generalized anxiety disorder F41.1 [facility] [address] [facility] [id number] 9952 Mar, [facility] [address] 9696 Mar, Pain R52 and Generalized anxiety disorder F41.1 [facility] [address] [id number] Feb, Depression F32.9 ; Type 2 diabetes mellitus with complication E11.8 and Nicotine dependence, unspecified, uncomplicated F17.200 [facility] [id number] [place] [address] 23944- 4614 Feb, Generalized anxiety disorder F41.1 and Pain R52 [facility] [id number] [place] [address] 91716- 0619 Feb, [facility] [id number] [place] [address] 16973- 8435 Jan, [facility] [id number] [place] [address] 86284- 2933 Jan, Generalized anxiety disorder F41.1 and Pain R52 [place] [address] 89559- 3330 Jan, [facility] [address] [id number] Dec, Generalized anxiety disorder F41.1 and Pain R52 [facility] [address] [place] [id number] Dec, Vascular dementia F01.50 ; Pain of left leg M79.605 ; Pain in right leg M79.604 and Type 2 diabetes mellitus with complication E11.8 [place] [id number] [place] [address] 31248- 5336 Dec, Pain R52 [place] [id number] [place] [address] 69497- 1532 Dec, [facility] [id number] [place] [address] 51818- 2773 Nov, [facility] [id number] [place] [address] 39666- 5374 Nov, Pain R52 and Generalized anxiety disorder F41.1 [facility] [address] [place] [id number] Nov, Depression F32.9 ; Vascular dementia with behavior disturbance F01.51 and Anxiety F41.9 [facility] [id number] [place] [address] 19488- 2546 Nov, Pain R52 and Generalized anxiety disorder F41.1 [facility] [address] [facility] [id number], [place] [address]- 2174 Oct, Generalized anxiety disorder F41.1 [facility] [address] [facility] [id number], [place] [address]- 6306 Oct, Pain R52 [facility] [id number] [place] [address] 67786- 1059 Sep, [facility] [address] [place] [id number] Sep, Generalized anxiety disorder F41.1 [facility] [id number] [place] [address] 85903- 3156 Sep, Pain R52 [facility] [id number] [place] [address] 43490- 7557 Sep, Generalized anxiety disorder F41.1 [facility] [address]100[place], [place] [address]- 7599 August, [facility] [address] [id number], [place] [address]- 0714 August, [facility] [address] [id number], [place] [address]- 7323 August, Pain R52 [facility] [address]100[place], [place] [address]- 9824 August, Generalized anxiety disorder F41.1 [facility] [address] [id number] [address] August, Generalized anxiety disorder F41.1 [facility] [address] [id number], [place] [address]- 2620 Jul, Pain R52 [facility] [address] [facility] [id number], [place] [address]- 8386 Jul, [facility] [address] [id number] [id number] Jul, [facility] [id number] [place] [address] 36335- 6860 Jun, [facility] [address] [id number] Jun, Depression F32.9 [facility] [id number] [place] [address] 48968- 8452 Jun, Pain R52 [facility] [address] 55668- 8084 Jun, [facility] [address] [place] [id number] Jun, Vascular dementia F01.50 and Depression F32.9 [facility] [id number] [place] [address] 47505- 6323 May, Pain R52 [facility] [address] 96858- 6010 15 May, 2016 [facility] [id number] [place] [address] 01704- 1819 May, Pseudobulbar affect F48.2 [facility] [id number] [place] [address] 97756- 2004 09 May, 2016 [facility] [id number] [place] [address] 41692- 9267 May, PVD (peripheral vascular disease) I73.9 [facility] [id number] [place] [address] 23980- 1919 08 May, 2016 Vascular dementia with behavior disturbance F01.51 [facility] [id number] [place] [address] 82818- 0207 May, Vascular dementia with behavior disturbance F01.51 [facility] [id number] [place] [address] 13142- 3315 Apr, [facility] [address] 79889- 2074 Apr, Pain R52 [facility] [address] [place] [id number] Apr, Generalized anxiety disorder F41.1 ; PVD (peripheral vascular disease) I73.9 and Type 2 diabetes mellitus with complication E11.8 [facility] [address], [place] [address]- 6890 Apr, Vascular dementia with behavior disturbance F01.51 [facility] [id number] [place] [address] 60247- 7624 Apr, [facility] [id number] [place] [address] 25068- 3372 Apr, Vascular dementia with behavior disturbance F01.51 [facility] [id number] [place] [address] 06644- 0429 Apr, [facility] [id number] [place] [address] [id number] Mar, [facility] [id number] [place] [address] 14886- 6937 Mar, Type 2 diabetes mellitus with complication E11.8 ; Vascular dementia with behavior disturbance F01.51 and Depression F32.9 [facility] [address] [address]- 4799 Mar, [facility] [id number] [place] [address] 08480- 6856 Feb, [facility] [id number] [place] [address] 61208- 1899 Feb, Viral illness B34.9 [facility] [id number] [place] [address] 06610- 1177 Jan, Diabetes 250.00 [facility] [id number] [place] [address] 76381- 4522 Jan, [facility] [id number] [place] [address] 45182- 4950 Jan, [facility] [address] [facility] [id number], [place] [address]- 6916 Jan, [facility] [address] [place] [id number] Jan, Vascular dementia with behavior disturbance F01.51 and Type 2 diabetes mellitus with complication E11.8 [facility] [address], [place] [address]- 1046 Jan, Pain R52 [facility] [address] [facility] [id number] [address]- 9166 Jan, Pain R52 [facility] [id number] [place] [address] 96936- 2089 Dec, [facility] [address], [place] [address]- 1410 Nov, [facility] [address] [place] [id number] Nov, Type 2 diabetes mellitus with complication E11.8 [facility] [address], [place] [address]- 2304 Nov, [facility] [address], [place] [address]- 3572 Oct, [facility] [address], [place] [address]- 3987 Oct, [facility] [address], [place] [address]- 8634 Oct, Vascular dementia with behavior disturbance F01.51 and Type 2 diabetes mellitus with complication E11.8 [facility] [address], [place] [address]- 7351 August, Type 2 diabetes mellitus with complication E11.8 and Vascular dementia with behavior disturbance F01.51 [facility] [address], [place] [address]- 7041 August, Vascular dementia F01.50 [facility] [address], [place] [address]- 6617 August, Vascular dementia with behavior disturbance F01.51 [facility] [address], [place] [address]- 9577 Jul, Vascular dementia with behavior disturbance F01.51 [facility] [address], [place] [address]- 9612 Jun, Vascular dementia F01.50 [facility] [address], [place] [address]- 0125 Jun, Type 2 diabetes mellitus with complication E11.8 ; Long- term insulin use Z79.4 and Vascular dementia with behavior disturbance F01.51 [place] [address], [place] [address]- 6553 Jun, Vascular dementia with behavior disturbance F01.51 [place] [address], [place] [address]- 2786 Jun, Vascular dementia F01.50 [facility] [address], [place] [address]- 1453 Apr, [place] [address], [place] [address]- 9825 Apr, [place] [address] [address]- 9303 Apr, [place] [address], [place] [address]- 4740 Apr, Type 2 diabetes mellitus with complication E11.8 ; Depression F32.9 and Long-term insulin use Z79.4 [place] [address] [id number], [place] [address]- 2351 Mar, [facility] [address] [place] [id number] Mar, Depression F32.9 ; Type 2 diabetes mellitus with complication E11.8 and Long-term insulin use Z79.4 [place] [address] [id number], [place] [address]- 8808 Feb, [facility] [address], [place] [address]- 3574 Feb, Hyperthyroidism E05.90 [facility] [address] [place] [address] 67959- 8601 Feb, Hyperthyroidism E05.90 [facility] [address] [place] [address] 11636- 8288 Feb, [facility] [address] [place] [address] 29936- 8242 Jan, [facility] [address] [place] [address] 39297- 9995 Dec, Nicotine addiction 305.1 [facility] [id number] [place] [address] 34579- 2870 Oct, Nicotine abuse 305.1 [facility] [id number] [place] [address] 16758- 7975 Oct, [facility] [address] [place] [address] 40525- 8264 August, [facility] [address] [id number] August, History of drug abuse 305.93 and Diabetes 250.00 [facility] [address], [place] [address]- 8635 Jul, [facility] [address], [place] [address]- 6136 Jul, [facility] [address], [place] [address]- 0606 Jun, [facility] [id number] [place] [address] 08919- 9105 Jun, [facility] [address], [place] [address]- 6083 Jun, [facility] [address] [place] [address] 05218- 0952 Jun, [facility] [address] [id number] [place] [address]- 8896 Jun, [facility] [address] [id number] [place] [address]- 2094 Jun, [facility] [address] [id number] [place] [address]- 8586 May, [facility] [place] [facility] [address] [id number] [place] [address]- 3740 May, [facility] [address] [id number] [place] [address]- 9999 May, [facility] [address] [id number] [place] [address]- 4306 May, [facility] [address] [id number], [place] [address]- 1439 May, [facility] [address] [id number], [place] [address]- 9401 Apr, [facility] [address] [id number], [place] [address]- 1302 Apr, [facility] [address] [id number] Apr, [facility] [address] [id number], [place] [address]- 5519 Apr, [facility] [place] [facility] [address] [id number], [place] [address]- 2914 Apr, [facility] [place] [facility] [address] [id number], [place] [address]- 0684 Apr, [facility] [place] [facility] [address] [id number], [place] [address]- 9962 Apr, [facility] [place] [facility] [address] [facility] [id number], [place] [address]- 8739 Apr, [facility] [place] [facility] [address] [id number] [place] [address]- 1667 Mar, [facility] [address] [id number] [place] [address]- 8830 Mar, [facility] [place] [facility] [address] [id number] [place] [address]- 5122 Mar, [facility] [address] [id number] [place] [address]- 1791 Mar, [facility] [place] [facility] [address] [id number] [place] [address]- 6170 Mar, [facility] [address] [id number] [place] [address]- 0406 Mar, [facility] [address] [id number] [place] [address]- 2271 Mar, [facility] [address] [id number] [place] [address]- 0941 Mar, [facility] [address] [id number] [place] [address]- 6250 Feb, [facility] [address] [id number] [place] [address]- 4415 Feb, [facility] [address] [id number] [place] [address]- 8586 Feb, [facility] [place] [facility] [address] [id number] [place] [address]- 3335 Feb, [facility] [address] [id number], [place] [address]- 0290 Feb, [facility] [address] [id number] Feb, [facility] [place] [facility] [address] [id number] [place] [address]- 0125 Feb, [facility] [place] [facility] [address] [id number] [place] [address]- 7122 Feb, [facility] [place] [facility] [address] [id number] [place] [address]- 2681 Feb, [facility] [place] [facility] [address] [id number] [place] [address]- 0936 Feb, [facility] [place] [facility] [address] [id number] [place] [address]- 9851 Jan, [facility] [place] [facility] [address] [id number] [place] [address]- 4093 30 Jan, 2014 [facility] [place] [facility] [address] [id number] [place] [address]- 0869 Jan, [facility] [place] [facility] [address] [id number] [place] [address]- 8447 17 Jan, 2014 [facility] [place] [facility] [address] [id number] [place] [address]- 8787 16 Jan, 2014 [facility] [place] [facility] [address] [id number] [place] [address]- 0717 16 Jan, 2014 [facility] [place] [facility] [address] [id number] [place] [address]- 1752 15 Jan, 2014 [facility] [place] [facility] [address] [id number] [place] [address]- 2556 Jan, [facility] [place] [facility] [address] [id number] [place] [address]- 3787 Jan, [facility] [place] [facility] [address] [id number] [place] [address]- 4154 Jan, [facility] [place] [facility] [address] [id number] [place] [address] Jan, [facility] [place] [facility] [address] [id number] [place] [address] 09 Jan, 2014 [facility] [place] [facility] [address] [id number] [place] [address] 09 Jan, 2014 [facility] [place] [facility] [address] [id number] [place] [address] 08 Jan, 2013 [facility] [place] [facility] [address] [id number] [place] [address] 08 Jan, 2013 [facility] [place] [facility] [address] [id number] [place] [address] Jan, 2013 [facility] [place] [facility] [address] [id number] [place] [address] Jan, 2013 [facility] [place] [facility] [address] [id number] [place] [address] Sep, 2013 [facility] [place] [facility] [address] [id number] [place] [address] 19 Sep, 2013 [facility] [place] [facility] [address] [id number] [place] [address] 11 Sep, 2013 [facility] [place] [facility] [address] [id number] [place] [address] Dec, 2013 [facility] [place] [facility] [address] [id number] [place] [address] 09 Sep, 2013 [facility] [place] [facility] [address] [id number] [place] [address] 09 Sep, 2013 [facility] [place] [facility] [address] [id number] [place] [address]- 4768 08 Sep, 2013 [facility] [place] [facility] [address] [id number], [place] [address] 08 Sep, 2013 [facility] [place] [facility] [address] [id number], [place] [address] 08 Sep, 2013 [facility] [place] [facility] [address] [id number] [place] [address] 08 Sep, 2013 [facility] [place] [facility] [address] [id number], [place] [address] 05 Sep, 2013 [facility] [place] [facility] [address] [id number], [place] [address] 05 Sep, 2013 [facility] [place] [facility] [address] [id number] [place] [address] Dec, [facility] [place] [facility] [address] [id number] [place] [address] Dec, [facility] [place] [facility] [address] [id number] [place] [address] Nov, [facility] [place] [facility] [address] [id number] [place] [address] Nov, [facility] [place] [facility] [address] [id number] [place] [address] Nov, [facility] [place] [facility] [address] [id number] [place] [address] Nov, [facility] [place] [facility] [address] [id number] [place] [address] Nov, [facility] [place] [facility] [address] [id number] [place] [address] Nov, [facility] [place] [facility] [address] [id number] [place] [address] Nov, [facility] [place] [facility] [address] [id number] [place] [address] 4464 Nov, [facility] [place] [facility] [address] [id number] [place] [address] 8830 Nov, [facility] [place] [facility] [address] [id number] [place] [address] 1837 Nov, [facility] [place] [facility] [address] [id number] [place] [address]- 2599 Nov, [facility] [place] [facility] [address] [id number] [place] [address] 1861 Nov, [facility] [place] [facility] [address] [id number] [place] [address]- 1621 Nov, [facility] [place] [facility] [address] [id number] [place] [address]- 8915 Nov, [facility] [place] [facility] [address] [id number] [place] [address] 8880 Oct, [facility] [place] [facility] [address] [id number] [facility] [place] [address] Oct, [facility] [place] [facility] [address] [id number] [facility] [place] [address]- 9825 Oct, [facility] [place] [facility] [address] [id number] [place] [address] 7814 Oct, [facility] [place] [facility] [address] [id number] [place] [address]- 3538 Oct, [facility] [place] [facility] [address] [id number] [place] [address]- 4864 Oct, [facility] [place] [facility] [address] [id number] [place] [address]- 3234 Oct, [facility] [place] [facility] [address] [id number] [place] [address]- 3335 Oct, [facility] [place] [facility] [address] [id number] [place] [address]- 8994 Oct, [facility] [place] [facility] [address] [id number] [place] [address]- 2684 Oct, [facility] [place] [facility] [address] [id number] [place] [address]- 9237 Oct, [facility] [place] [facility] [address] [id number] [place] [address]- 7445 Oct, [facility] [place] [facility] [address] [id number] [place] [address]- 6772 Oct, [facility] [place] [facility] [address] [id number] [place] [address]- 6690 Oct, [facility] [place] [facility] [address] [id number] [place] [address]- 2853 Oct, [facility] [place] [facility] [address] [id number] [place] [address]- 0486 Oct, [facility] [place] [facility] [address] [id number] [place] [address]- 5906 Oct, [facility] [place] [facility] [address] [id number] [place] [address]- 3372 Oct, [facility] [place] [facility] [address] [id number] [place] [address]- 7304 Oct, [facility] [place] [facility] [address] [id number] [place] [address]- 5142 Oct, [facility] [place] [facility] [address] [id number] [place] [address]- 4068 Sep, [facility] [place] [facility] [address] [id number] [place] [address]- 2522 Sep, [facility] [place] [facility] [address] [id number] [place] [address]- 7355 Sep, [facility] [place] [facility] [address] [id number] [place] [address]- 8775 Sep, [facility] [place] [facility] [address] [id number] [place] [address]- 9545 Sep, [facility] [place] [facility] [address] [id number] [place] [address]- 6753 Sep, [facility] [place] [facility] [address] [id number] [place] [address]- 4218 August, [facility] [place] [facility] [address] [id number] [place] [address]- 5946 August, [facility] [place] [facility] [address] [id number] [place] [address]- 0387 Jul, [facility] [place] [facility] [address] [id number] [place] [address]- 9880 Jul, [facility] [place] [facility] [address] [id number] [place] [address]- 5565 Jul, [facility] [place] [facility] [address] [id number] [place] [address]- 0258 17 Jul, 2013 [facility] [place] [facility] [address] [id number] [place] [address]- 6051 Jul, [facility] [place] [facility] [address] [id number] [place] [address] Jul, [facility] [place] [facility] [address] [id number] [place] [address] Jul, [facility] [place] [facility] [address] [id number] [place] [address]- 6051 Jul, [facility] [place] [facility] [address] [id number] [place] [address] Jun, [facility] [place] [facility] [address] [id number] [place] [address]- 5250 Jun, [facility] [place] [facility] [address] [id number] [place] [address]- 0925 Jun, [facility] [place] [facility] [address] [id number] [place] [address]- 3195 Jun, [facility] [place] [facility] [address] [id number] [place] [address]- 5490 Jun, [facility] [place] [facility] [address] [facility] [id number] [place] [address]- 8443 May, [facility] [place] [facility] [address] [id number] [place] [address]- 4322 May, [facility] [place] [facility] [address] [id number] [place] [address]- 3169 May, [facility] [place] [facility] [address] [id number] [place] [address]- 8059 May, [facility] [place] [facility] [address] [id number] [place] [address]- 5536 May, [facility] [place] [facility] [address] [id number] [place] [address]- 4927 May, [facility] [place] [facility] [address] [id number] [place] [address]- 7632 May, [facility] [place] [facility] [address] [id number] [place] [address] May, [facility] [place] [facility] [address] [facility] [id number] [place] [address] May, [facility] [place] [facility] [address] [id number] [place] [address]- 9348 May, [facility] [place] [facility] [address] [id number] [place] [address]- 7345 May, [facility] [place] [facility] [address] [facility] [id number] [place] [address]- 1399 Apr, [facility] [place] [facility] [address] [place] [id number] [place] [address] 4977 Apr, [facility] [place] [facility] [address] [facility] [id number] [place] [address]- 8870 Mar, [facility] [place] [facility] [address] [facility] [id number] [place] [address]- 8871 Mar, [facility] [place] [facility] [address] [facility] [id number] [place] [address]- 8684 Mar, [facility] [place] [facility] [address] [facility] [id number] [place] [address]- 0854 Mar, [facility] [place] [facility] [address] [facility] [id number] [place] [address]- 4194 Mar, [facility] [place] [facility] [address] [facility] [id number] [place] [address]- 9311 Jan, [facility] [place] [facility] [address] [facility] [id number] [place] [address]- 1014 Jan, [facility] [place] [facility] [address] [facility] [id number] [place] [address]- 4969 Jan, [facility] [place] [facility] [address] [id number] [place] [address]- 5020 Jan, [facility] [place] [facility] [address] [id number] [place] [address]- 0499 Jan, [facility] [place] [facility] [address] [id number] [place] [address]- 2226 Jan, [facility] [place] [facility] [address] [id number] [place] [address]- 7205 Jan, [facility] [place] [facility] [address] [id number] [place] [address]- 5554 Jan, [facility] [place] [facility] [address] [id number] [place] [address]- 9226 Jan, [facility] [place] [facility] [address] [id number] [place] [address]- 4565 Jan, [facility] [place] [facility] [address] [id number] [place] [address]- 7597 Dec, [facility] [place] [facility] [address] [id number] [place] [address]- 3793 Oct, [facility] [place] [facility] [address] [id number] [place] [address]- 3453 Oct, [facility] [place] [facility] [address] [id number] [place] [address]- 5919 Oct, [facility] [place] [facility] [address] [id number] [place] [address]- 5402 Oct, [facility] [place] [facility] [address] [id number] [place] [address]- 6198 Oct, [facility] [place] [facility] [address] [id number] [place] [address]- 1030 Oct, [facility] [place] [facility] [address] [id number] [place] [address]- 5416 Sep, [facility] [place] [facility] [address] [id number] [place] [address]- 4290 August, [facility] [address] [id number] [place] [address]- 9502 August, [facility] [place] [facility] [address] [id number] [place] [address]- 2756 August, [facility] [place] [facility] [address] [id number] [place] [address]- 5526 August, [facility] [place] [facility] [address] [id number] [place] [address]- 7888 August, [facility] [place] [facility] [address] [id number] [place] [address]- 0108 May, [facility] [place] [facility] [address] [id number] [place] [address]- 4759 Apr, [facility] [address] [id number] [place] [address]- 7556 Apr, [facility] [place] [facility] [address] [id number] [place] [address]- 9935 Apr, [facility] [address] [id number] [place] [address]- 6756 Apr, [facility] [address] [facility] [id number] [place] [address]- 5589 Apr, [facility] [address] [place] [id number] Mar, [facility] [address] [id number] [address]- 0896 Mar, [facility] [place] [facility] [address] [id number] [place] [address]- 0965 Mar, [facility] [place] [facility] [address] [id number] [place] [address]- 6586 Mar, [facility] [address] [id number] [place] [address]- 7910 Mar, [facility] [address] [id number] [place] [address]- 1768 17 Mar, 2012 [facility] [place] [facility] [address] [id number] [place] [address]- 1186 13 Mar, 2012 [facility] [place] [facility] [address] [id number] [place] [address]- 6266 13 Mar, 2012 [facility] [place] [facility] [address] [id number] [place] [address]- 5056 13 Mar, 2012 [facility] [place] [facility] [address] [id number] [place] [address]- 1876 13 Mar, 2012 [facility] [place] [facility] [address] [id number] [place] [address]- 1636 Mar, [facility] [place] [facility] [address] [id number] [place] [address]- 7558 Mar, [facility] [place] [facility] [address] [id number] [place] [address]- 5907 Mar, [facility] [place] [facility] [address] [id number] [place] [address]- 1062 Mar, [facility] [place] [facility] [address] [id number] [place] [address]- 9214 Mar, [facility] [place] [facility] [address] [id number] [place] [address]- 0326 Mar, [facility] [place] [facility] [address] [id number] [place] [address]- 8856 Mar, [facility] [place] [facility] [address] [id number] [place] [address]- 1326 Mar, [facility] [place] [facility] [address] [id number] [place] [address]- 6846 05 Mar, 2012 [facility] [place] [facility] [address] [id number] [place] [address]- 2710 05 Mar, 2012 [facility] [place] [facility] [address] [id number] [place] [address]- 4336 Feb, [facility] [place] [facility] [address] [id number] [place] [address]- 0083 Feb, [facility] [place] [facility] [address] [id number] [place] [address]- 2087 Feb, [facility] [place] [facility] [address] [id number] [place] [address]- 5248 Feb, [facility] [place] [facility] [address] [id number] [place] [address]- 9865 Jan, [facility] [place] [facility] [address] [id number] [place] [address]- 3261 Jan, [facility] [place] [facility] [address] [id number] [place] [address]- 6208 Jan, [facility] [place] [facility] [address] [id number] [place] [address]- 2725 Jan, [facility] [place] [facility] [address] [id number] [place] [address]- 5764 Jan, [facility] [place] [facility] [address] [id number] [place] [address]- 1400 Jan, [facility] [place] [facility] [address] [id number] [place] [address]- 9561 Jan, [facility] [place] [facility] [address] [facility] [id number] [place] [address]- 7973 Jan, [facility] [place] [facility] [address] [id number] [place] [address]- 6910 Jan, [facility] [place] [facility] [address] [id number] [place] [address]- 9570 27 Dec, 2011 [facility] [place] [facility] [address] [id number] [place] [address]- 3625 14 Sep2011 [facility] [place] [facility] [address] [id number] [place] [address]- 3469 12 Dec, 2011 [facility] [place] [facility] [address] [id number] [place] [address]37 Dec, [facility] [place] [facility] [address] [id number] [place] [address]- 8443 Dec, [facility] [place] [facility] [address] [id number] [place] [address]- 6399 Nov, [facility] [place] [facility] [address] [id number] [place] [address]- 1359 Nov, [facility] [place] [facility] [address] [id number] [place] [address]- 3360 Nov, [facility] [place] [facility] [address] [id number] [place] [address]- 4079 Nov, [facility] [place] [facility] [address] [id number] [place] [address]- 3624 Nov, [facility] [place] [facility] [address] [id number] [place] [address]- 4709 Nov, [facility] [place] [facility] [address] [id number] [place] [address]- 6426 Nov, [facility] [place] [facility] [address] [id number] [place] [address]- 7128 Nov, [facility] [place] [facility] [address] [id number] [place] [address]- 4136 Nov, [facility] [place] [facility] [address] [id number] [place] [address]- 7251 Oct, [facility] [place] [facility] [address] [id number], [place] [address]- 2589 Oct, [facility] [place] [facility] [address] [id number] [place] [address]- 4731 Sep, [facility] [place] [facility] [address] [id number] [place] [address]- 7470 Sep, [facility] [place] [facility] [address] [id number] [place] [address]- 7138 Sep, [facility] [place] [facility] [address] [id number], [place] [address]- 2428 14 Aug, 2011 [facility] [address] [id number] [place] [address]- 3403 30 Jul, 2011 [facility] [place] [facility] [address] [id number] [place] [address]- 7559 27 Jul, 2011 [facility] [place] [facility] [address] [id number] [place] [address]- 1998 27 Jul, 2011 [facility] [place] [facility] [address] [id number] [place] [address]- 3481 18 Jul, 2011 [facility] [address] [id number] [place] [address]- 7766 16 Jul, 2011 [facility] [place] [facility] [address] [id number] [place] [address]- 2737 16 Jul, 2011 [facility] [address] [id number] [place] [address]- 5824 16 Jul, 2011 [facility] [place] [facility] [address] [id number] [place] [address]- 7946 14 Jul, 2011 [facility] [place] [facility] [address] [id number] [place] [address]- 8196 Jul, [facility] [place] [facility] [address] [facility] [id number] [place] [address]- 7550 19 Jun, 2011 [facility] [place] [facility] [address] [id number] [place] [address]- 7741 18 Jun, 2011 [facility] [place] [facility] [address] [id number] [place] [address]- 0618 15 Jun, 2011 [facility] [place] [facility] [address] [id number] [place] [address]- 4799 12 Jun, 2011 [facility] [place] [facility] [address] [facility] [id number] [place] [address]- 3598 08 Jun, 2011 [facility] [place] [facility] [address] [facility] [id number] [place] [address]- 7401 08 Jun, 2011 [facility] [place] [facility] [address] [id number] [place] [address]- 9710 Jun, [facility] [address] [id number] [place] [address]- 0235 Jun, [facility] [place] [facility] [address] [id number] [place] [address]- 5746 May, [facility] [place] [facility] [address] [id number] [place] [address]- 5766 May, [facility] [place] [facility] [address] [id number] [place] [address]- 4873 May, [facility] [place] [facility] [address] [id number] [place] [address]- 5637 Apr, [facility] [address] [id number] [place] [address]- 1349 Apr, [facility] [address] [id number] [place] [address]- 7961 Apr, [facility] [address] [id number] [place] [address]- 0997 Mar, [facility] [address] [id number] [place] [address]- 7130 Mar, [facility] [address] [id number] [place] [address]- 4047 15 Mar, 2011 [facility] [place] [facility] [address] [id number] [place] [address]- 7556 Mar, [facility] [place] [facility] [address] [id number] [place] [address]- 3285 Mar, [facility] [place] [facility] [address] [id number] [place] [address]- 1096 Mar, [facility] [place] [facility] [address] [id number] [place] [address]- 5556 12 Mar, 2011 [facility] [place] [facility] [address] [id number], [place] [address]- 8056 12 Mar, 2011 [facility] [place] [facility] [address] [id number] [place] 8277 08 Mar, 2011 [facility] [place] [facility] [address] [id number] [place] [address]- 4836 Mar, [facility] [place] [facility] [address] [facility] [id number] [place] [address]- 1200 Mar, [facility] [place] [facility] [address] [id number] [place] [address]- 5703 Mar, [facility] [place] [facility] [address] [id number] [place] 0728 Mar, [facility] [place] [facility] [address] [id number] [place] [address]- 4542 Mar, [facility] [place] [facility] [address] [id number] [place] [address]- 1277 Feb, [facility] [place] [facility] [address] [id number] [place] [address]- 3544 Feb, [facility] [place] [facility] [address] [id number] [place] [address]- 6334 Feb, [facility] [place] [facility] [address] [id number] [place] [address]- 0003 Jan, [facility] [place] [facility] [address] [id number], [place] [address]- 5107 Jan, [facility] [place] [facility] [address] [id number], [place] [address]- 2822 Oct, [facility] [place] [facility] [address] [id number] [place] [address] Sep, [facility] [place] [facility] [address] [id number] [place] [address] Mar, [facility] [place] [facility] [address] [id number] [place] 16 Mar, 2010 [facility] [place] [facility] [id number] [address] Feb, [facility] [address] [facility] [id number], [place] [address] Feb, [facility] [address] [facility] [id number], [place] [address] Jan, [facility] [id number] [address] Jan, [facility] [address] [facility] [id number], [place] [address] Mar, [facility] [id number] [place] [address] Feb, [facility] [id number] [address] Feb, [facility] [id number] [address] Feb, [facility] [id number] [address] Feb, [facility] [id number] [address] Jan, [facility] [id number], [place] [address] Dec, [facility] [id number] [address] Nov, IMMUNIZATIONS No Known Immunizations SOCIAL HISTORY [...] (GENERAL) HISTORY Type Description Date Hospitalization History [facility] March 2015
[2018-02-25] MEDS ORDERED: NS IV 1000 ML 1,000 ML IV SCH (08:15)
--- OUTSIDE RECORDS SUMMARY | 2018-02-25 08:23 | XMS REPORT | Continuity of Care Document ---
Author Author [facility] Address Unknown Phone Unavailable Allergies Active Description Code Type Severity Reaction Onset Reported/Identified Relationship to Patient Clinical Status Yes ACETAMINOPHEN ACETAMINOPHEN MODERATE Yes NO KNOWN DRUG ALLERGIES NO KNOWN DRUG ALLERG UNKNOWN Yes ACETAMINOPHEN MODERATE UNKNOWN Yes Benzodiazepines Drug Allergy N/A N/A 03/26/2012 Yes Hydrocodone Drug Allergy N/A N/A 03/26/2012 Yes Benzodiazepines Drug Allergy 03/26/2012 Yes Hydrocodone Drug Allergy 03/26/2012 Yes acetaminophen [id number] Drug Allergy Moderate N/A 10/26/2017 Medications Medication Packaging Start Date Stop Date [...] K 338.4 CHRONIC PAIN SYNDROME 10/10/2008 ARSEN MARKETING SERVICES VICE PRESIDENT, SIMRAN 338.4 CHRONIC PAIN SYNDROME 10/10/2008 ARSEN MARKETING SERVICES VICE PRESIDENT, SIMRAN 338.4 CHRONIC PAIN SYNDROME 10/10/2008 SHAW [...] DO, CACHORRO K 787.91 Diarrhea 12/13/2008 ARSEN MARKETING SERVICES VICE PRESIDENT, SIMRAN 465.9 Upper Respiratory Infection 12/13/2008 ARSEN MARKETING SERVICES VICE PRESIDENT, SIMRAN 787.03 Vomiting 12/13/2008 ARSEN MARKETING SERVICES VICE PRESIDENT, SIMRAN 787.91 Diarrhea 12/13/2008 ARSEN MARKETING SERVICES VICE PRESIDENT, SIMRAN 465.9 Upper Respiratory Infection 12/13/2008 ARSEN MARKETING SERVICES VICE PRESIDENT, SIMRAN 787.03 Vomiting 12/13/2008 ARSEN MARKETING SERVICES VICE PRESIDENT, SIMRAN 787.91 Diarrhea 12/13/2008 SHAW DO, CACHORRO K 465.9 Upper Respiratory Infection 12/13/2008 SHAW DO, CACHORRO K 787.03 Vomiting 12/13/2008 SHAW DO, CACHORRO K 787.91 Diarrhea 12/13/2008 CLARIBEL RAMEY MD 465.9 Upper Respiratory Infection 12/13/2008 CLARIBEL RAMEY MD 787.03 Vomiting 12/13/2008 CLARIBEL RAMEY MD 787.91 Diarrhea 12/13/2008 STEPHANIE CHRISTIANSEN APRN 465.9 Upper Respiratory Infection 12/13/2008 ЕЛЕНА MARKETING SERVICES VICE PRESIDENT, STEPHANIE S 787.03 Vomiting 12/13/2008 ЕЛЕНА MUÑOZ, STEPHANIE S 787.91 Diarrhea 12/13/2008 JOLLY DELANEY MD 465.9 Upper Respiratory Infection 12/13/2008 JOLLY DELANEY MD 787.03 Vomiting 12/13/2008 JOLLY DELANEY MD 787.91 Diarrhea 12/13/2008 ЕЛЕНА MUÑOZ, STEPHANIE S 465.9 Upper Respiratory Infection 12/13/2008 ЕЛЕНА MUÑOZ, STEPHANIE S 787.03 Vomiting 12/13/2008 ЕЛЕНА MARKETING SERVICES VICE PRESIDENT, STEPHANIE S 787.91 Diarrhea 12/15/2008 SHAW DO, [...] DELANEY MD 307.47 SI DYSSOMNIA NOS 12/15/2008 JOLYL DELANEY MD 311 MO DEPRESS NOS 12/15/2008 [...] SI DYSSOMNIA NOS 12/15/2008 VENUS PHD, JE Cabrrea 311 MO DEPRESS NOS 12/15/2008 SHAW DO, CACHORRO K 307.47 SI DYSSOMNIA NOS 12/15/2008 SHAW DO, CACHORRO K 311 MO DEPRESS NOS 12/15/2008 ARSEN MARKETING SERVICES VICE PRESIDENT, SIMRAN 307.47 SI DYSSOMNIA NOS 12/15/2008 ARSEN MARKETING SERVICES VICE PRESIDENT, SIMRAN 311 MO DEPRESS NOS 12/15/2008 ARSEN MARKETING SERVICES VICE PRESIDENT, SIMRAN 307.47 SI DYSSOMNIA NOS 12/15/2008 ARSEN MARKETING SERVICES VICE PRESIDENT, SIMRAN 311 MO DEPRESS NOS 12/15/2008 SHAW [...] DO CACHORRO K 577.1 CHRONIC PANCREATITIS 12/28/2008 EVNUS SUN, JE Cabrera 250.02 DIABETES MELLITUS POORLY [...] CACHORRO K 788.7 Penile Discharge 01/04/2009 ARSEN MARKETING SERVICES VICE PRESIDENT, SIMRAN 788.7 Penile Discharge 01/04/2009 ARSEN MARKETING SERVICES VICE PRESIDENT, SIMRAN 788.7 Penile Discharge 01/04/2009 SHAW DO, [...] DO, CACHORRO K 302.72 IMPOTENCE 02/15/2009 ARSEN MARKETING SERVICES VICE PRESIDENT, SIMRAN 302.72 IMPOTENCE 02/15/2009 ARSEN MARKETING SERVICES VICE PRESIDENT, SIMRAN 302.72 IMPOTENCE 02/15/2009 SHAW DO, CACHORRO [...] CACHORRO K 724.5 Backache Unspecified 03/20/2009 ARSEN MARKETING SERVICES VICE PRESIDENT, SIMRAN 724.5 Backache Unspecified 03/20/2009 ARSEN MARKETING SERVICES VICE PRESIDENT, SIMRAN 724.5 Backache Unspecified 03/20/2009 SHAW DO, [...] PSYCHIC FACTORS MED COND 06/09/2009 SHAW DO, CACHRORO K 304.10 SA SEDATIVE DEP 06/09/2009 SHAW [...] PF PSYCHIC FACTORS MED COND 06/09/2009 ARSEN MARKETING SERVICES VICE PRESIDENT, SIMRAN 304.10 SA SEDATIVE DEP 06/09/2009 ARSEN MARKETING SERVICES VICE PRESIDENT, SIMRAN 316 PF PSYCHIC FACTORS MED COND 06/09/2009 RASEN MARKETING SERVICES VICE PRESIDENT, SIMRAN 304.10 SA SEDATIVE DEP 06/09/2009 ARSEN MARKETING SERVICES VICE PRESIDENT, SIMRAN 316 PF PSYCHIC FACTORS MED COND 06/09/2009 SHAW DO, CACHORRO K 304.10 SA SEDATIVE DEP 06/09/2009 SHAW DO, CACHORRO K 316 PF PSYCHIC FACTORS MED COND 06/09/2009 TANVIR JAMES, CLARIBEL Braun 304.10 SA SEDATIVE DEP 06/09/2009 CLARIBEL RAMEY MD 316 PF PSYCHIC FACTORS MED COND 06/09/2009 STEPHANIE CHRISTIANSEN APRN 304.10 SA SEDATIVE DEP 06/09/2009 ЕЛЕНА MARKETING SERVICES VICE PRESIDENT, STEPHANIE S 316 PF PSYCHIC FACTORS MED COND 06/09/2009 JOLLY DELANEY MD 304.10 SA SEDATIVE DEP 06/09/2009 JOLLY DELANEY MD 316 PF PSYCHIC FACTORS MED COND 06/09/2009 ЕЛЕНА MARKETING SERVICES VICE PRESIDENT, STEPHANIE S 304.10 SA SEDATIVE DEP 06/09/2009 ЕЛЕНА MARKETING SERVICES VICE PRESIDENT, STEPHANIE S 316 PF PSYCHIC FACTORS MED [...] K 304.00 SA OPIOID DEPENDENCE 08/07/2009 ARSEN MARKETING SERVICES VICE PRESIDENT, SIMRAN 244.9 HYPOTHYROIDISM 08/07/2009 ARSEN MARKETING SERVICES VICE PRESIDENT, SIMRAN 304.00 SA OPIOID DEPENDENCE 08/07/2009 ARSEN MARKETING SERVICES VICE PRESIDENT, SIMRAN 244.9 HYPOTHYROIDISM 08/07/2009 ARSEN MARKETING SERVICES VICE PRESIDENT, SIMRAN 304.00 SA OPIOID DEPENDENCE 08/07/2009 SHAW DO, CACHORRO K 244.9 HYPOTHYROIDISM 08/07/2009 SHAW DO, CACHORRO K 304.00 SA OPIOID DEPENDENCE 08/07/2009 TANVIR JAMES, CLARIBEL N 244.9 HYPOTHYROIDISM 08/07/2009 CLARIBEL RAMEY MD N 304.00 SA OPIOID DEPENDENCE 08/07/2009 ЕЛЕНА MARKETING SERVICES VICE PRESIDENT, STEPHANIE S 244.9 HYPOTHYROIDISM 08/07/2009 ЕЛЕНА MARKETING SERVICES VICE PRESIDENT, STEPHANIE S 304.00 SA OPIOID DEPENDENCE 08/07/2009 [...] CACHORRO K 414.01 CAD 08/16/2009 SHAW DO, CACHOROR K 443.9 PERIPHERAL ARTERIAL DISEASE 08/16/2009 SHAW [...] Syncope And Collapse 08/16/2009 VENUS SUN, JE aCbrera 414.01 CAD 08/16/2009 VENUS SUN, JE Cabrera [...] K 780.2 Syncope And Collapse 08/16/2009 ARSEN MARKETING SERVICES VICE PRESIDENT, SIMRAN 414.01 CAD 08/16/2009 ARSEN MARKETING SERVICES VICE PRESIDENT, SIMRAN 443.9 PERIPHERAL ARTERIAL DISEASE 08/16/2009 ARSEN MARKETING SERVICES VICE PRESIDENT, SIMRAN 458.0 Orthostatic Hypotension 08/16/2009 ARSEN MARKETING SERVICES VICE PRESIDENT, SIMRAN 461.0 Acute Maxillary Sinusitis 08/16/2009 ARSEN MARKETING SERVICES VICE PRESIDENT, SIMRAN 780.2 Syncope And Collapse 08/16/2009 ARSEN MARKETING SERVICES VICE PRESIDENT, SIMRAN 414.01 CAD 08/16/2009 ARSEN MARKETING SERVICES VICE PRESIDENT, SIMRAN 443.9 PERIPHERAL ARTERIAL DISEASE 08/16/2009 ARSEN MARKETING SERVICES VICE PRESIDENT, SIMRAN 458.0 Orthostatic Hypotension 08/16/2009 ARSEN MARKETING SERVICES VICE PRESIDENT, SIMRAN 461.0 Acute Maxillary Sinusitis 08/16/2009 ARSEN MARKETING SERVICES VICE PRESIDENT, SIMRAN 780.2 Syncope And Collapse 08/16/2009 SHAW [...] 250.00 Diabetes Ii Controlled 10/02/2009 SHAW DO, ACCHORRO K 250.00 Diabetes Ii Controlled 10/02/2009 SHAW [...] Diabetes Ii Controlled 10/02/2009 TANVIR JAMES, CLARIBEL Bruan 250.00 Diabetes Ii Controlled 10/02/2009 STEPHANIE CHRISTIANSEN [...] 272.4 HYPERLIPIDEMIA HYPERLIPOPROTEINEMIAS (Old Classification) 12/06/2009 ARSEN MARKETING SERVICES VICE PRESIDENT, SIMRAN 250.60 DIABETES MELLITUS DIABETIC PERIPHERAL NEUROPATHY 12/06/2009 ARSEN MARKETING SERVICES VICE PRESIDENT, SIMRAN 272.4 HYPERLIPIDEMIA HYPERLIPOPROTEINEMIAS (Old Classification) 12/06/2009 ARSEN MARKETING SERVICES VICE PRESIDENT, SIMRAN 250.60 DIABETES MELLITUS DIABETIC PERIPHERAL NEUROPATHY 12/06/2009 ARSEN MARKETING SERVICES VICE PRESIDENT, SIMRAN 272.4 HYPERLIPIDEMIA HYPERLIPOPROTEINEMIAS (Old Classification) 12/06/2009 [...] 296.90 Unspecified Episodic Mood Disorder 02/01/2010 ARSEN MARKETING SERVICES VICE PRESIDENT, SIMRAN 296.90 Unspecified Episodic Mood Disorder 02/01/2010 ARSEN MARKETING SERVICES VICE PRESIDENT, SIMRAN 296.90 Unspecified Episodic Mood Disorder 02/01/2010 [...] Abdominal Pain Unspecified Site 02/07/2010 SHAW DO, CACHOROR K 789.00 Abdominal Pain Unspecified Site 02/07/2010 SHAW DO, CACHORRO K 789.00 Abdominal Pain Unspecified Site 02/07/2010 VENUS SUN, JE Cabrera 789.00 Abdominal Pain Unspecified Site 02/07/2010 VENUS SUN, JE Cabrera 789.00 Abdominal Pain Unspecified Site 02/07/2010 SHAW DO, CACHORRO K 789.00 Abdominal Pain Unspecified Site 02/07/2010 ARSEN MARKETING SERVICES VICE PRESIDENT, SIMRAN 789.00 Abdominal Pain Unspecified Site 02/07/2010 ARSEN MARKETING SERVICES VICE PRESIDENT, SIMRAN 789.00 Abdominal Pain Unspecified Site 02/07/2010 [...] AFFECTIVE DISORDER RECURRENT EPISODE UNSPECIFIED DEGREE 06/07/2010 SHWA DO, CACHORRO K 296.30 MAJOR DEPRESSIVE AFFECTIVE DISORDER RECURRENT EPISODE UNSPECIFIED DEGREE 06/07/2010 SHAW DO, CACHORRO K 296.30 MAJOR DEPRESSIVE AFFECTIVE DISORDER RECURRENT EPISODE UNSPECIFIED DEGREE 06/07/2010 SHAW DO CACHORRO K 296.30 MAJOR DEPRESSIVE AFFECTIVE DISORDER RECURRENT EPISODE UNSPECIFIED DEGREE 06/07/2010 CACHORRO SHAW DO K 296.30 MAJOR DEPRESSIVE AFFECTIVE DISORDER RECURRENT EPISODE UNSPECIFIED DEGREE 06/07/2010 JOLLY EDLANEY MD 296.30 MAJOR DEPRESSIVE AFFECTIVE DISORDER RECURRENT [...] DISORDER RECURRENT EPISODE UNSPECIFIED DEGREE 06/07/2010 ARSEN MARKETING SERVICES VICE PRESIDENT, SIMRAN 296.30 MAJOR DEPRESSIVE AFFECTIVE DISORDER RECURRENT [...] OF METHICILLIN RESISTANT STAPHYLOCOCCUS AUREUS 01/17/2011 ARSEN MARKETING SERVICES VICE PRESIDENT, SIMRAN 786.52 Chest Wall Pain 01/17/2011 ARSEN MARKETING SERVICES VICE PRESIDENT, SIMRAN 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 01/17/2011 ARSEN MARKETING SERVICES VICE PRESIDENT, SIMRAN 786.52 Chest Wall Pain 01/17/2011 ARSEN MARKETING SERVICES VICE PRESIDENT, SIMRAN 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 HISTORY OF METHICILLIN RESISTANT [...] DELANEY MD 578.1 Blood In Stool 03/18/2011 SAHW DO, CACHORRO K 578.1 Blood In Stool [...] K V76.51 COLON CANCER SCREENING 03/25/2011 ARSEN MARKETING SERVICES VICE PRESIDENT, SIMRAN 789.06 Abdominal Pain Epigastric 03/25/2011 ARSEN MARKETING SERVICES VICE PRESIDENT, SIMRAN V76.51 COLON CANCER SCREENING 03/25/2011 ARSEN MARKETING SERVICES VICE PRESIDENT, SIMRAN 789.06 Abdominal Pain Epigastric 03/25/2011 ARSEN MARKETING SERVICES VICE PRESIDENT, SIMRAN V76.51 COLON CANCER SCREENING 03/25/2011 SHAW [...] K V58.69 MEDICATION HIGH RISK 04/08/2011 ARSEN MARKETING SERVICES VICE PRESIDENT, SIMRAN V58.69 MEDICATION HIGH RISK 04/08/2011 ARSEN MARKETING SERVICES VICE PRESIDENT, SIMRAN V58.69 MEDICATION HIGH RISK 04/08/2011 SHAW [...] CACHORRO K 466.0 Acute Bronchitis 06/20/2011 ARSEN MARKETING SERVICES VICE PRESIDENT, SIMRAN 466.0 Acute Bronchitis 06/20/2011 ARSEN MARKETING SERVICES VICE PRESIDENT, SIMRAN 466.0 Acute Bronchitis 06/20/2011 SHAW DO, [...] MUÑOZ 780.4 Dizziness And Vertigo 12/11/2011 ARSEN MARKETING SERVICES VICE PRESIDENTSIMRAN Braun 780.4 Dizziness And Vertigo 12/11/2011 SHAW [...] K 780.09 OR DELERIUM NOS 03/19/2012 ARSEN MARKETING SERVICES VICE PRESIDENTSIMRAN Braun 293.0 DELIRIUM DUE TO CONDITIONS CLASSIFIED ELSEWHERE 03/19/2012 ARSEN MARKETING SERVICES VICE PRESIDENT, SIMRAN 780.09 OR DELERIUM NOS 03/19/2012 ARSEN MARKETING SERVICES VICE PRESIDENT, SIMRAN 293.0 DELIRIUM DUE TO CONDITIONS CLASSIFIED ELSEWHERE 03/19/2012 ARSEN MARKETING SERVICES VICE PRESIDENT, SIMRAN 780.09 OR DELERIUM NOS 03/19/2012 CACHORRO [...] NEC 03/21/2012 Ot 414.01 CORONARY ATHEROSCLEROSIS OF [place] CORON 03/21/2012 Ot 433.10 CAROTID ARTERY OCCLUSION [...] Braun 780.50 SLEEP DISTURBANCE, UNSPECIFIED 03/25/2012 STEPHANIE CHRISTIASNEN APRN 780.50 SLEEP DISTURBANCE, UNSPECIFIED 03/25/2012 JOLLY [...] DO, CACHORRO K 780.79 fatigue 09/09/2012 ARSEN MARKETING SERVICES VICE PRESIDENT, SIMRAN 780.79 fatigue 09/09/2012 ARSEN MARKETING SERVICES VICE PRESIDENT, SIMRAN 780.79 fatigue 09/09/2012 SHAW DO, CACHORRO [...] 724.79 OTHER DISORDERS OF COCCYX 11/02/2012 ARSEN MARKETING SERVICES VICE PRESIDENT, SIMRAN 715.16 OSTEOARTHROSIS LOCALIZED PRIMARY INVOLVING LOWER LEG 11/02/2012 ARSEN MARKETING SERVICES VICE PRESIDENT, SIMRAN 724.79 OTHER DISORDERS OF COCCYX 11/02/2012 ARSEN MARKETING SERVICES VICE PRESIDENT, SIMRAN 715.16 OSTEOARTHROSIS LOCALIZED PRIMARY INVOLVING LOWER LEG 11/02/2012 ARSEN MARKETING SERVICES VICE PRESIDENT, SIMRAN 724.79 OTHER DISORDERS OF COCCYX 11/02/2012 [...] SIMRAN 728.87 MUSCLE WEAKNESS (GENERALIZED) 01/19/2013 ARSEN MARKETING SERVICES VICE PRESIDENT, SIMRAN 782.0 DISTURBANCE OF SKIN SENSATION 01/19/2013 ARSEN MARKETING SERVICES VICE PRESIDENT, SIMRAN V15.81 PERSONAL HISTORY OF NONCOMPLIANCE WITH MEDICAL TREATMENT PRESENTING HAZARDS TO HEALTH 01/19/2013 ARSEN WANDA SIMRAN 728.87 MUSCLE WEAKNESS (GENERALIZED) 01/19/2013 ARSEN WANDA SIMRAN 782.0 DISTURBANCE OF SKIN SENSATION 01/19/2013 ARSEN MUÑOZ SIMRAN V15.81 PERSONAL HISTORY OF NONCOMPLIANCE WITH MEDICAL TREATMENT PRESENTING HAZARDS TO HEALTH 01/19/2013 CACHORRO SHAW DO 728.87 MUSCLE WEAKNESS (GENERALIZED) 01/19/2013 ACCHORRO SHAW DO K 782.0 DISTURBANCE OF SKIN [...] TREATMENT PRESENTING HAZARDS TO HEALTH 01/19/2013 ЕЛЕНА MARKETING SERVICES VICE PRESIDENT, STEPHANIE S 728.87 MUSCLE WEAKNESS (GENERALIZED) 01/19/2013 [...] K 724.5 BACK PAIN, GENERAL 02/02/2013 ARSEN MARKETING SERVICES VICE PRESIDENT, SIMRAN 724.5 BACK PAIN, GENERAL 02/02/2013 ARSEN MARKETING SERVICES VICE PRESIDENT, SIMRAN 724.5 BACK PAIN, GENERAL 02/02/2013 SHAW DO, CACHORRO K 724.5 BACK PAIN, GENERAL 02/02/2013 CLARIBEL RAMEY MD 724.5 BACK PAIN, GENERAL 02/02/2013 ALBERT CHRISTIANSEN APRNNDA S 724.5 BACK PAIN, GENERAL 02/02/2013 JOLLY DELANEY MD4.5 BACK PAIN, GENERAL 02/02/2013 ALBERT CHRISTIANSEN APRNNDA S 724.5 BACK PAIN, GENERAL 02/16/2013 BRIAN HUGO MARKETING SERVICES VICE PRESIDENT Ot 465.9 ACUTE URI NOS 02/16/2013 BRIAN HUGO MARKETING SERVICES VICE PRESIDENT Ot 719.41 JOINT PAIN-SHLDER 06/03/2013 SHAW DO, [...] APRN S 285.9 ANEMIA 06/23/2013 BRIAN HUGO MARKETING SERVICES VICE PRESIDENT Ot 305.50 OPIOID ABUSE-UNSPEC 06/23/2013 BRIAN HUGO MARKETING SERVICES VICE PRESIDENT Ot 780.97 ALTERED MENTAL STATUS 06/28/2013 SHAW [...] SHAW DO Ot 414.01 CORONARY ATHEROSCLEROSIS OF [place] CORON 06/28/2013 CACHORRO SHAW DO Ot 433.10 [...] ABNORMAL LFT (LIVER FUNCTION TEST) 07/19/2013 ARSEN MARKETING SERVICES VICE PRESIDENT, SIMRAN 276.1 HYPONATREMIA 07/19/2013 ARSEN WANDA SIMRAN 790.6 ABNORMAL LFT (LIVER FUNCTION TEST) 07/19/2013 ARSEN MARKETING SERVICES VICE PRESIDENT, SIMRAN 276.1 HYPONATREMIA 07/19/2013 ARSEN MARKETING SERVICES VICE PRESIDENT, SIMRAN 790.6 ABNORMAL LFT (LIVER FUNCTION TEST) [...] INFARCT 09/10/2013 EMELIA BORJAS Ot 440.24 ATHEROSCL [place] ARTERIES EXTREMITIES W 09/10/2013 EMELIA BORJAS Ot [...] SHAW DO Ot 414.01 CORONARY ATHEROSCLEROSIS OF [place] CORON 01/06/2014 CACHORRO SHAW DO Ot 414.8 CHR ISCHEMIC HRT DIS NEC 01/06/2014 CACHORRO SHAW DO Ot 433.10 CAROTID ARTERY OCCLUSION W O CEREBRAL IN 01/06/2014 CACHORRO SHAW DO Ot 433.30 MULT BILTRAL ARTERY OCCLUSION WO CEREBRA 01/06/2014 CACHORRO SHAW DO Ot 438.89 OTH LATE EFFECT-CEREBROVASCULAR DISEASE 01/06/2014 CACHORRO SHAW DO Ot 440.20 ATHEROSCLEROSIS [place] ARTERIES EXTREMIT 01/06/2014 CACHORRO SHAW DO Ot [...] RAMEY MD Ot 414.01 CORONARY ATHEROSCLEROSIS OF [place] CORON 01/20/2014 CLARIBEL RAMEY MD Ot 433.10 CAROTID ARTERY OCCLUSION W O CEREBRAL IN 01/20/2014 CLARIBEL RAMEY MD Ot 433.30 MULT BILTRAL ARTERY OCCLUSION WO CEREBRA 01/20/2014 CLARIBEL RAMEY MD Ot 438.89 OTH LATE EFFECT-CEREBROVASCULAR DISEASE 01/20/2014 CLARIBEL RAMEY MD Ot 440.20 ATHEROSCLEROSIS [place] ARTERIES EXTREMIT 01/20/2014 CLARIBEL RAMEY MD Ot [...] STEPHANIE CHRISTIANSENP Ot E05.90 03/16/2015 STEPHANIE CHRISTIANSEN INSURANCE SALESPERSON Ot E05.90 03/21/2015 STEPHANIE CHRISTIANSEN INSURANCE SALESPERSON Ot E05.90 02/09/2016 Ot 433.10 CAROTID ARTERY OCCLUSION W O CEREBRAL IN 02/09/2016 Ot 433.30 MULT BILTRAL ARTERY OCCLUSION WO CEREBRA 02/09/2016 STEPHANIE CHRISTIANSEN INSURANCE SALESPERSON Ot E05.90 THYROTOXICOSIS, UNSP WITHOUT THYROTOXIC 02/12/2016 [...] PERIPHERAL VASCULAR DISEASE, UNSPECIFIED 05/28/2016 STEPHANIE CHRISTIANSEN INSURANCE SALESPERSON Ot I73.9 PERIPHERAL VASCULAR DISEASE, UNSPECIFIED 06/05/2016 ELAINA JAMES, JOLLY Alcantara Ot Z87.440 PERSONAL HISTORY OF URINARY (TRACT) INFE 06/12/2016 BRIAN HUGO MARKETING SERVICES VICE PRESIDENT Ot 305.50 OPIOID ABUSE-UNSPEC 06/12/2016 BRIAN HUGO MARKETING SERVICES VICE PRESIDENT Ot 780.97 ALTERED MENTAL STATUS 06/17/2016 STEPHANIE CHRISTIANSEN Ot I73.9 PERIPHERAL VASCULAR DISEASE, UNSPECIFIED 06/19/2016 STEPHANIE CHRISTIANSEN INSURANCE SALESPERSON Ot I73.9 PERIPHERAL VASCULAR DISEASE, UNSPECIFIED 06/25/2016 [...] WESLY ZHANG I25.10 ATHSCL HEART DISEASE OF [place] CORONARY ARTERY W/O ANG PCTRS 07/06/2016 WESLY [...] 07/19/2016 DONG DO, CUCO K Ot Z79.4 PHOTOGRAPHY COORDINATOR (CURRENT) USE OF INSULIN 07/19/2016 DONG DO, CUCO K Ot Z79.82 FPC (CURRENT) USE OF ASPIRIN 07/19/2016 DONG DO, CUCO K Ot Z79.899 OTHER PHOTOGRAPHY COORDINATOR (CURRENT) DRUG THERAPY 07/19/2016 DONG DO, CUCO [...] WEAKNESS 07/22/2016 CUCO UMANA DO Ot Z79.4 PHOTOGRAPHY COORDINATOR (CURRENT) USE OF INSULIN 07/22/2016 CUCO UMANA DO Ot Z79.82 FPC (CURRENT) USE OF ASPIRIN 07/22/2016 CUCO UMANA DO Ot Z79.899 OTHER FPC (CURRENT) DRUG THERAPY 07/22/2016 CUCO UMANA DO Ot Z86.73 PRSNL HX OF TIA (TIA), AND CEREB INFRC W 07/22/2016 CUCO UMANA DO Ot Z95.5 PRESENCE OF CORONARY ANGIOPLASTY IMPLANT 01/12/2017 BRIAN HUGO MARKETING SERVICES VICE PRESIDENT Ot 305.50 OPIOID ABUSE-UNSPEC 01/12/2017 BRIAN HUGO MARKETING SERVICES VICE PRESIDENT Ot 780.97 ALTERED MENTAL STATUS 03/05/2017 BRIDGER JUSTICE MD Ot E03.9 HYPOTHYROIDISM, UNSPECIFIED 03/05/2017 BRIDGER JUSTICE MD Ot E11.9 TYPE 2 DIABETES MELLITUS WITHOUT COMPLIC 03/05/2017 BRIDGER JUSTICE MD Ot E78.5 HYPERLIPIDEMIA, UNSPECIFIED 03/05/2017 BRIDGER JUSTICE MD Ot F17.210 NICOTINE DEPENDENCE, CIGARETTES, UNCOMPL 03/05/2017 BRIDGER JUSTICE MD Ot I10 ESSENTIAL (PRIMARY) HYPERTENSION 03/05/2017 BRIDGER JUSTICE MD Ot I25.10 ATHSCL HEART DISEASE OF [place] CORONARY 03/05/2017 BRIDGER JUSTICE MD Ot I25.2 OLD MYOCARDIAL INFARCTION 03/05/2017 BRIDGER JUSTICE MD Ot I69.320 APHASIA FOLLOWING CEREBRAL INFARCTION 03/05/2017 BRIDGER JUSTICE MD Ot I69.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 03/05/2017 BRIDGER JUSTICE MD Ot I70.201 UNSP ATHSCL [place] ARTERIES OF EXTREMITI 03/05/2017 BRIDGER JUSTICE MD Ot I70.245 ATHSCL [place] ARTERIES OF LEFT LEG W ULC 03/05/2017 BRIDGER JUSTICE MD Ot L97.529 NON-PRESSURE CHRONIC ULCER OTH PRT LEFT 03/05/2017 BRIDGER JUSTICE MD Ot Z79.02 FPC (CURRENT) USE OF ANTITHROMBOTI 03/05/2017 BRIDGER JUSTICE MD Ot Z79.4 FPC (CURRENT) USE OF INSULIN 03/05/2017 BRIDGER JUSTICE MD, Ot Z79.899 OTHER PHOTOGRAPHY COORDINATOR (CURRENT) DRUG THERAPY 03/05/2017 BRIDGER JUSTICE MD Ot Z91.14 PATIENT'S OTHER NONCOMPLIANCE WITH MEDIC 03/19/2017 MARLENY PRIETO Ot I70.203 UNSP ATHSCL [place] ARTERIES OF [facility] 03/19/2017 MARLENY PRIETO Ot 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 04/09/2017 MARLENY PRIETO Ot I70.203 UNSP ATHSCL [place] ARTERIES OF [facility] 04/09/2017 MARLENY PRIETO Ot 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 04/10/2017 MARLENY PRIETO Ot I70.203 UNSP ATHSCL [place] ARTERIES OF [facility] 04/10/2017 MARLENY PRIETO Ot 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 04/22/2017 ZULLY DPM, [place] Q Ot L97.529 NON-PRESSURE CHRONIC ULCER OTH PRT LEFT 05/07/2017 ZULLY DPM, [place] Q Ot M86.9 OSTEOMYELITIS, UNSPECIFIED 05/07/2017 ZULLY DPM, [place] Q Ot Z01.818 ENCOUNTER FOR OTHER PREPROCEDURAL EXAMIN 05/07/2017 ZULLY DPM, [place] Q Ot Z11.2 ENCOUNTER FOR SCREENING FOR OTHER BACTER 05/07/2017 Ot 433.10 CAROTID ARTERY OCCLUSION W O CEREBRAL IN 05/07/2017 Ot 433.30 MULT BILTRAL ARTERY OCCLUSION WO CEREBRA 05/07/2017 STEPHANIE CHRISTIANSEN Ot E05.90 THYROTOXICOSIS, UNSP WITHOUT THYROTOXIC 05/07/2017 JOLLY DELANEY MD Ot E11.9 TYPE 2 DIABETES MELLITUS WITHOUT COMPLIC 05/07/2017 STEPHANIE CHRISTIANSEN Ot I73.9 PERIPHERAL VASCULAR DISEASE, UNSPECIFIED 05/07/2017 JOLLY DELANEY MD Ot Z87.440 PERSONAL HISTORY OF URINARY (TRACT) INFE 05/07/2017 MARLENY PRIETO Ot I70.203 UNSP ATHSCL [place] ARTERIES OF EXTREMITI 05/07/2017 ALINA RODRIGUEZ, MARLENY Larios Ot 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 05/07/2017 [...] Q Ot I25.10 ATHSCL HEART DISEASE OF [place] CORONARY 05/12/2017 ZULLY DPM, [place] Q Ot I25.2 OLD MYOCARDIAL INFARCTION 05/12/2017 ZULLY DPM, [place] Q Ot I73.9 PERIPHERAL VASCULAR DISEASE, UNSPECIFIED 05/12/2017 ZULLY DPM, [place] Q Ot K21.9 GASTRO-ESOPHAGEAL REFLUX DISEASE WITHOUT 05/12/2017 ZULLY DPM, [place] Q Ot M86.672 OTHER CHRONIC OSTEOMYELITIS, LEFT ANKLE 05/12/2017 ZULLY DPM, [place] Q Ot Z79.02 PHOTOGRAPHY COORDINATOR (CURRENT) USE OF ANTITHROMBOTI 05/12/2017 ZULLY DPM, [place] Q Ot Z79.4 PHOTOGRAPHY COORDINATOR (CURRENT) USE OF INSULIN 05/12/2017 ZULLY DPM, [place] Q Ot Z79.82 FPC (CURRENT) USE OF ASPIRIN 05/12/2017 ZULLY DPM, [place] Q Ot Z79.899 OTHER PHOTOGRAPHY COORDINATOR (CURRENT) DRUG THERAPY 05/12/2017 ZULLY DPM, [place] [...] Q Ot I25.10 ATHSCL HEART DISEASE OF [place] CORONARY 05/12/2017 ZULLY DPM, [place] Q Ot I25.2 OLD MYOCARDIAL INFARCTION 05/12/2017 ZULLY DPM, [place] Q Ot I73.9 PERIPHERAL VASCULAR DISEASE, UNSPECIFIED 05/12/2017 ZULLY DPM, [place] Q Ot K21.9 GASTRO-ESOPHAGEAL REFLUX DISEASE WITHOUT 05/12/2017 ZULLY DPM, [place] Q Ot M86.672 OTHER CHRONIC OSTEOMYELITIS, LEFT ANKLE 05/12/2017 ZULLY DPM, [place] Q Ot Z79.02 FPC (CURRENT) USE OF ANTITHROMBOTI 05/12/2017 ZULLY DPM, [place] Q Ot Z79.4 FPC (CURRENT) USE OF INSULIN 05/12/2017 ZULLY DPM, [place] Q Ot Z79.82 FPC (CURRENT) USE OF ASPIRIN 05/12/2017 ZULLY DPM, [place] Q Ot Z79.899 OTHER PHOTOGRAPHY COORDINATOR (CURRENT) DRUG THERAPY 05/12/2017 ZULLY DPM, [place] Q Ot Z86.73 PRSNL HX OF TIA (TIA), AND CEREB INFRC W 05/12/2017 ZULLY DPM, [place] Q Ot Z95.5 PRESENCE OF CORONARY ANGIOPLASTY IMPLANT 05/13/2017 MARITZA ROBLERO MD Ot Z01.810 ENCOUNTER FOR PREPROCEDURAL CARDIOVASCUL 05/13/2017 [...] Q Ot I25.10 ATHSCL HEART DISEASE OF [place] CORONARY 05/16/2017 ZULLY DPM, [place] Q Ot I25.2 OLD MYOCARDIAL INFARCTION 05/16/2017 ZULLY DPM, [place] Q Ot I73.9 PERIPHERAL VASCULAR DISEASE, UNSPECIFIED 05/16/2017 ZULLY DPM, [place] Q Ot K21.9 GASTRO-ESOPHAGEAL REFLUX DISEASE WITHOUT 05/16/2017 ZULLY DPM, [place] Q Ot M86.672 OTHER CHRONIC OSTEOMYELITIS, LEFT ANKLE 05/16/2017 ZULLY DPM, [place] Q Ot Z79.02 FPC (CURRENT) USE OF ANTITHROMBOTI 05/16/2017 ZULLY DPM, [place] Q Ot Z79.4 PHOTOGRAPHY COORDINATOR (CURRENT) USE OF INSULIN 05/16/2017 ZULLY DPM, [place] Q Ot Z79.82 FPC (CURRENT) USE OF ASPIRIN 05/16/2017 ZULLY DPM, [place] Q Ot Z79.899 OTHER PHOTOGRAPHY COORDINATOR (CURRENT) DRUG THERAPY 05/16/2017 ZULLY DPM, [place] [...] Q Ot I25.10 ATHSCL HEART DISEASE OF [place] CORONARY 05/30/2017 ZULLY DPM, [place] Q Ot I25.2 OLD MYOCARDIAL INFARCTION 05/30/2017 ZULLY DPM, [place] Q Ot I73.9 PERIPHERAL VASCULAR DISEASE, UNSPECIFIED 05/30/2017 ZULLY DPM, [place] Q Ot K21.9 GASTRO-ESOPHAGEAL REFLUX DISEASE WITHOUT 05/30/2017 ZULLY DPM, [place] Q Ot M86.672 OTHER CHRONIC OSTEOMYELITIS, LEFT ANKLE 05/30/2017 ZULLY DPM, [place] Q Ot Z79.02 FPC (CURRENT) USE OF ANTITHROMBOTI 05/30/2017 ZULLY DPM, [place] Q Ot Z79.4 FPC (CURRENT) USE OF INSULIN 05/30/2017 ZULLY DPM, [place] Q Ot Z79.82 FPC (CURRENT) USE OF ASPIRIN 05/30/2017 ZULLY DPM, [place] Q Ot Z79.899 OTHER FPC (CURRENT) DRUG THERAPY 05/30/2017 ZULLY DPM, [place] Q Ot Z86.73 PRSNL HX OF TIA (TIA), AND CEREB INFRC W 05/30/2017 ZULLY DPM, [place] Q Ot Z95.5 PRESENCE OF CORONARY ANGIOPLASTY IMPLANT 06/05/2017 MARITZA ROBLERO MD Ot Z01.810 ENCOUNTER FOR PREPROCEDURAL CARDIOVASCUL 06/16/2017 [...] Q Ot I25.10 ATHSCL HEART DISEASE OF [place] CORONARY 06/16/2017 ZULLY DPM, [place] Q Ot I25.2 OLD MYOCARDIAL INFARCTION 06/16/2017 ZULLY DPM, [place] Q Ot I73.9 PERIPHERAL VASCULAR DISEASE, UNSPECIFIED 06/16/2017 ZULLY DPM, [place] Q Ot K21.9 GASTRO-ESOPHAGEAL REFLUX DISEASE WITHOUT 06/16/2017 ZULLY DPM, [place] Q Ot M86.672 OTHER CHRONIC OSTEOMYELITIS, LEFT ANKLE 06/16/2017 ZULLY DPM, [place] Q Ot Z79.02 FPC (CURRENT) USE OF ANTITHROMBOTI 06/16/2017 ZULLY DPM, [place] Q Ot Z79.4 FPC (CURRENT) USE OF INSULIN 06/16/2017 ZULLY DPM, KENTON Q Ot Z79.82 PHOTOGRAPHY COORDINATOR (CURRENT) USE OF ASPIRIN 06/16/2017 ZULLY DPM, [place] Q Ot Z79.899 OTHER [facility] (CURRENT) DRUG THERAPY 06/16/2017 ZULLY DPM, [place]ON Q Ot Z86.73 PRSNL HX OF TIA (TIA), AND CEREB INFRC W 06/16/2017 ZULLY DPM, [place] Q Ot Z95.5 PRESENCE OF CORONARY ANGIOPLASTY IMPLANT 06/16/2017 MARITZA ROBLERO MD Ot Z01.810 ENCOUNTER FOR PREPROCEDURAL CARDIOVASCUL 10/28/2017 CHRISTY STOCK MD Ot A41.9 SEPSIS, UNSPECIFIED ORGANISM 10/28/2017 CHRISTY STOCK MD, Ot D64.9 ANEMIA, UNSPECIFIED 10/28/2017 CHRISTY STOCK MD, Ot E03.9 HYPOTHYROIDISM, UNSPECIFIED 10/28/2017 CHRISTY STOCK MD Ot E11.319 TYPE 2 DIABETES W UNSP DIABETIC RTNOP W/ 10/28/2017 CHRISTY STOCK MD, Ot E11.40 TYPE 2 DIABETES MELLITUS WITH DIABETIC N 10/28/2017 CHRISTY STOCK MD, Ot E11.65 TYPE 2 DIABETES MELLITUS WITH HYPERGLYCE 10/28/2017 CHRISTY STOCK MD Ot E78.5 HYPERLIPIDEMIA, UNSPECIFIED 10/28/2017 CHRISTY STOCK MD, Ot E86.0 DEHYDRATION 10/28/2017 CHRISTY STOCK MD, Ot E87.5 HYPERKALEMIA 10/28/2017 CHRISTY STOCK MD Ot F03.90 UNSPECIFIED DEMENTIA WITHOUT BEHAVIORAL 10/28/2017 CHRISTY STOCK MD, Ot F17.210 NICOTINE DEPENDENCE, CIGARETTES, UNCOMPL 10/28/2017 HCRISTY STOCK MD Ot F32.9 MAJOR DEPRESSIVE DISORDER, SINGLE EPISOD 10/28/2017 CHRISTY STOCK MD, Ot F41.9 ANXIETY DISORDER, UNSPECIFIED 10/28/2017 CHRISTY STOCK MD, Ot G40.909 EPILEPSY, UNSP, NOT INTRACTABLE, WITHOUT 10/28/2017 CHRITSY STOCK MD Ot I10 ESSENTIAL (PRIMARY) HYPERTENSION 10/28/2017 CHRISTY STOCK MD, Ot I25.10 ATHSCL HEART DISEASE OF [place] CORONARY 10/28/2017 CHRISTY STOCK MD, Ot I73.9 PERIPHERAL VASCULAR DISEASE, UNSPECIFIED 10/28/2017 CHRISTY STOCK MD, Ot J44.9 CHRONIC OBSTRUCTIVE PULMONARY DISEASE, U 10/28/2017 CHRISTY STOCK MD, Ot K21.9 GASTRO-ESOPHAGEAL REFLUX DISEASE WITHOUT 10/28/2017 CHRISTY STOCK MD Ot R29.6 REPEATED FALLS 10/28/2017 CHRISTY STOCK MD, Ot Z79.4 FPC (CURRENT) USE OF INSULIN 10/28/2017 CHRISTY STOCK MD, Ot Z79.82 [facility]PC (CURRENT) USE OF ASPIRIN 10/28/2017 CHRISTY STOCK MD, Ot Z86.73 PRSNL HX OF TIA (TIA), AND CEREB INFRC W 10/28/2017 CHRISTY STOCK MD, Ot Z95.5 PRESENCE OF CORONARY ANGIOPLASTY IMPLANT 12/31/2017 JUVENTINO DONOVAN APRN Ot E11.621 TYPE 2 DIABETES MELLITUS WITH FOOT ULCER 12/31/2017 JUVENTINO DONOVAN APRN Ot I87.2 VENOUS INSUFFICIENCY (CHRONIC) (PERIPHER 12/31/2017 JUVENTINO DONOVAN APRN Ot L97.512 NON-PRS CHRONIC ULCER OTH PRT RIGHT FOOT 12/31/2017 JUVENTINO DONOVAN APRN Ot S93.101A UNSPECIFIED SUBLUXATION OF RIGHT TOE(S), 12/31/2017 JUVENTINO DONOVAN APRN Ot Z89.421 ACQUIRED ABSENCE OF OTHER RIGHT TOE(S) 12/31/2017 JUVENTINO DONOVAN APRN Ot E11.621 TYPE 2 DIABETES MELLITUS WITH FOOT ULCER 12/31/2017 JUVENTINO DONOVAN APRN Ot I87.2 VENOUS INSUFFICIENCY (CHRONIC) (PERIPHER 12/31/2017 JUVENTINO DONOVAN APRN Ot L97.512 NON-PRS CHRONIC ULCER OTH PRT RIGHT FOOT 01/05/2018 JUVENTINO DONOVAN APRN Ot E11.621 TYPE 2 DIABETES MELLITUS WITH FOOT ULCER 01/05/2018 JUVENTINO DONOVAN APRN Ot I87.2 VENOUS INSUFFICIENCY (CHRONIC) (PERIPHER 01/05/2018 JUVENTINO DONOVAN APRN Ot L97.512 NON-PRS CHRONIC ULCER OTH PRT RIGHT FOOT 01/07/2018 STEPHANIE CHRISTIANSEN Ot E05.90 THYROTOXICOSIS, UNSP WITHOUT THYROTOXIC 01/07/2018 ELAINA JAMES, JOLLY Alcantara Ot E11.9 TYPE 2 DIABETES MELLITUS WITHOUT COMPLIC 01/07/2018 STEPHANIE CHRISTIANSEN Ot I73.9 PERIPHERAL VASCULAR DISEASE, UNSPECIFIED 01/07/2018 ELAINA JAMES, JOLLY Alcantara Ot Z87.440 PERSONAL HISTORY OF URINARY (TRACT) INFE 01/07/2018 MARLENY PRIETO Ot I70.203 UNSP ATHSCL [place] ARTERIES OF EXTREMITI 01/07/2018 MARLENY PRIETO Ot 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 01/07/2018 ZULLY DPM, [place] Q Ot L97.529 NON-PRESSURE CHRONIC ULCER OTH PRT LEFT 01/07/2018 ZULLY DPM, [place] Q Ot E03.9 HYPOTHYROIDISM, UNSPECIFIED 01/07/2018 ZULLY DPM, K[place]ON Q Ot E11.43 TYPE 2 DIABETES W DIABETIC AUTONOMIC (PO 01/07/2018 ZULLY DPM, [place] Q Ot E78.5 HYPERLIPIDEMIA, UNSPECIFIED 01/07/2018 ZULLY DPM, [place] Q Ot F03.90 UNSPECIFIED DEMENTIA WITHOUT BEHAVIORAL 01/07/2018 ZULLY DPM, [place] Q Ot F17.210 NICOTINE DEPENDENCE, CIGARETTES, UNCOMPL 01/07/2018 ZULLY DPM, [place] Q Ot F32.9 MAJOR DEPRESSIVE DISORDER, SINGLE EPISOD 01/07/2018 ZULLY DPM, [place] Q Ot F41.9 ANXIETY DISORDER, UNSPECIFIED 01/07/2018 ZULLY DPM, [place] Q Ot I10 ESSENTIAL (PRIMARY) HYPERTENSION 01/07/2018 ZULLY DPM, [place] Q Ot I25.10 ATHSCL HEART DISEASE OF [place] CORONARY 01/07/2018 ZULLY DPM, [place] Q Ot I25.2 OLD MYOCARDIAL INFARCTION 01/07/2018 ZULLY DPM, [place] Q Ot I73.9 PERIPHERAL VASCULAR DISEASE, UNSPECIFIED 01/07/2018 ZULLY DPM, [place] Q Ot K21.9 GASTRO-ESOPHAGEAL REFLUX DISEASE WITHOUT 01/07/2018 ZULLY DPM, [place] Q Ot M86.672 OTHER CHRONIC OSTEOMYELITIS, LEFT ANKLE 01/07/2018 ZULLY DPM, [place] Q Ot Z79.02 PHOTOGRAPHY COORDINATOR (CURRENT) USE OF ANTITHROMBOTI 01/07/2018 ZULLY DPM, [place] Q Ot Z79.4 FPC (CURRENT) USE OF INSULIN 01/07/2018 ZULLY DPM, [place] Q Ot Z79.82 [facility] (CURRENT) USE OF ASPIRIN 01/07/2018 ZULLY DPM, [place] Q Ot Z79.899 OTHER PHOTOGRAPHY COORDINATOR (CURRENT) DRUG THERAPY 01/07/2018 ZULLY DPM, [place] Q Ot Z86.73 PRSNL HX OF TIA (TIA), AND CEREB INFRC W 01/07/2018 ZULLY DPM, [place] Q Ot Z95.5 PRESENCE OF CORONARY ANGIOPLASTY IMPLANT 01/07/2018 MARITZA ROBLERO MD Ot Z01.810 ENCOUNTER FOR PREPROCEDURAL CARDIOVASCUL 01/07/2018 JUVENTINO DONOVAN MARKETING SERVICES VICE PRESIDENT Ot E11.621 TYPE 2 DIABETES MELLITUS WITH FOOT ULCER 01/07/2018 JUVENTINO DONOVAN MARKETING SERVICES VICE PRESIDENT Ot I87.2 VENOUS INSUFFICIENCY (CHRONIC) (PERIPHER 01/07/2018 JUVENTINO DONOVAN MARKETING SERVICES VICE PRESIDENT Ot L97.512 NON-PRS CHRONIC ULCER OTH PRT RIGHT FOOT 01/07/2018 JUVENTINO DONOVAN MARKETING SERVICES VICE PRESIDENT Ot E11.621 TYPE 2 DIABETES MELLITUS WITH FOOT ULCER 01/07/2018 JUVENTINO DONOVAN MARKETING SERVICES VICE PRESIDENT Ot I87.2 VENOUS INSUFFICIENCY (CHRONIC) (PERIPHER 01/07/2018 JUVENTINO DONOVAN MARKETING SERVICES VICE PRESIDENT Ot L97.512 NON-PRS CHRONIC ULCER OTH PRT RIGHT FOOT 01/07/2018 JUVENTINO DONOVAN MARKETING SERVICES VICE PRESIDENT Ot S93.101A UNSPECIFIED SUBLUXATION OF RIGHT TOE(S), 01/07/2018 JUVENTINO DONOVAN MARKETING SERVICES VICE PRESIDENT Ot Z89.421 ACQUIRED ABSENCE OF OTHER RIGHT TOE(S) 01/08/2018 JUVENTINO DONOVAN MARKETING SERVICES VICE PRESIDENT Ot E11.621 TYPE 2 DIABETES MELLITUS WITH FOOT ULCER 01/08/2018 JUVENTINO DONOVAN MARKETING SERVICES VICE PRESIDENT Ot I87.2 VENOUS INSUFFICIENCY (CHRONIC) (PERIPHER 01/08/2018 JUVENTINO DONOVAN MARKETING SERVICES VICE PRESIDENT Ot L97.512 NON-PRS CHRONIC ULCER OTH PRT RIGHT FOOT 01/09/2018 JUVENTINO DONOVAN MARKETING SERVICES VICE PRESIDENT Ot E11.621 TYPE 2 DIABETES MELLITUS WITH FOOT ULCER 01/09/2018 JUVENTINO DONOVAN MARKETING SERVICES VICE PRESIDENT Ot I87.2 VENOUS INSUFFICIENCY (CHRONIC) (PERIPHER 01/09/2018 JUVENTINO DONOVAN R MARKETING SERVICES VICE PRESIDENT Ot L97.512 NON-PRS CHRONIC ULCER OTH PRT RIGHT FOOT 01/09/2018 JUVENTINO DONOVAN R MARKETING SERVICES VICE PRESIDENT Ot R60.0 LOCALIZED EDEMA 01/09/2018 JUVENTINO DONOVAN R MARKETING SERVICES VICE PRESIDENT Ot S91.104A UNSP OPN WND RIGHT LESSER TOE(S) W/O DAM 01/12/2018 JUVENTINO DONOVAN MARKETING SERVICES VICE PRESIDENT Ot E11.621 TYPE 2 DIABETES MELLITUS WITH FOOT ULCER 01/12/2018 JUVENTINO DONOVAN R MARKETING SERVICES VICE PRESIDENT Ot I87.2 VENOUS INSUFFICIENCY (CHRONIC) (PERIPHER 01/12/2018 VENUS JUVENTINO R MARKETING SERVICES VICE PRESIDENT Ot L97.512 NON-PRS CHRONIC ULCER OTH PRT RIGHT FOOT 01/21/2018 KENNEY MANLEY INFO ANALYST Ot I73.9 PERIPHERAL VASCULAR DISEASE, UNSPECIFIED 01/21/2018 KENNEY MANLEY INFO ANALYST Ot M86.9 OSTEOMYELITIS, UNSPECIFIED 01/21/2018 JUVENTINO DONOVAN R MARKETING SERVICES VICE PRESIDENT Ot E11.621 TYPE 2 DIABETES MELLITUS WITH FOOT ULCER 01/21/2018 JUVENTINO DONOVAN R MARKETING SERVICES VICE PRESIDENT Ot I87.2 VENOUS INSUFFICIENCY (CHRONIC) (PERIPHER 01/21/2018 JUVENTINO DONOVAN R MARKETING SERVICES VICE PRESIDENT Ot L97.512 NON-PRS CHRONIC ULCER OTH PRT RIGHT FOOT 01/21/2018 JUVENTINO DONOVAN R MARKETING SERVICES VICE PRESIDENT Ot S93.101A UNSPECIFIED SUBLUXATION OF RIGHT TOE(S), 01/21/2018 JUVENTINO DONOVAN R MARKETING SERVICES VICE PRESIDENT Ot Z89.421 ACQUIRED ABSENCE OF OTHER RIGHT TOE(S) 01/23/2018 JUVENTINO DONOVAN MARKETING SERVICES VICE PRESIDENT Ot E11.621 TYPE 2 DIABETES MELLITUS WITH FOOT ULCER 01/23/2018 VENUS JUVENTINO R MARKETING SERVICES VICE PRESIDENT Ot I87.2 VENOUS INSUFFICIENCY (CHRONIC) (PERIPHER 01/23/2018 VENUS JUVENTINO R MARKETING SERVICES VICE PRESIDENT Ot L97.512 NON-PRS CHRONIC ULCER OTH PRT RIGHT FOOT 01/23/2018 JUVENTINO DONOVAN R MARKETING SERVICES VICE PRESIDENT Ot S93.101A UNSPECIFIED SUBLUXATION OF RIGHT TOE(S), 01/23/2018 JUVENTINO DONOVAN R MARKETING SERVICES VICE PRESIDENT Ot Z89.421 ACQUIRED ABSENCE OF OTHER RIGHT TOE(S) 01/26/2018 JUVENTINO DONOVAN R MARKETING SERVICES VICE PRESIDENT Ot E11.621 TYPE 2 DIABETES MELLITUS WITH FOOT ULCER 01/26/2018 JUVENTINO DONOVAN R MARKETING SERVICES VICE PRESIDENT Ot I87.2 VENOUS INSUFFICIENCY (CHRONIC) (PERIPHER 01/26/2018 JUVENTINO DONOVAN R MARKETING SERVICES VICE PRESIDENT Ot L97.512 NON-PRS CHRONIC ULCER OTH PRT RIGHT FOOT 01/27/2018 VENUS JUVENTINO R MARKETING SERVICES VICE PRESIDENT Ot E11.621 TYPE 2 DIABETES MELLITUS WITH FOOT ULCER 01/27/2018 VENUS, JUVENTINO R MARKETING SERVICES VICE PRESIDENT Ot I87.2 VENOUS INSUFFICIENCY (CHRONIC) (PERIPHER 01/27/2018 VENUS JUVENTINO R MARKETING SERVICES VICE PRESIDENT Ot L97.512 NON-PRS CHRONIC ULCER OTH PRT RIGHT FOOT 01/28/2018 VENUS JUVENTINO R MARKETING SERVICES VICE PRESIDENT Ot E11.621 TYPE 2 DIABETES MELLITUS WITH FOOT ULCER 01/28/2018 VENUS JUVENTINO R MARKETING SERVICES VICE PRESIDENT Ot I87.2 VENOUS INSUFFICIENCY (CHRONIC) (PERIPHER 01/28/2018 JUVENTINO DONOVAN R MARKETING SERVICES VICE PRESIDENT Ot L97.512 NON-PRS CHRONIC ULCER OTH PRT RIGHT FOOT 01/28/2018 VENUS, JUVENTINO R MARKETING SERVICES VICE PRESIDENT Ot R60.0 LOCALIZED EDEMA 01/28/2018 VENUS, JUVENTINO R MARKETING SERVICES VICE PRESIDENT Ot S91.104A UNSP OPN WND RIGHT LESSER TOE(S) W/O DAM 02/02/2018 VENUS JUVENTINO R MARKETING SERVICES VICE PRESIDENT Ot E11.621 TYPE 2 DIABETES MELLITUS WITH FOOT ULCER 02/02/2018 VENUS JUVENTINO R MARKETING SERVICES VICE PRESIDENT Ot I87.2 VENOUS INSUFFICIENCY (CHRONIC) (PERIPHER 02/02/2018 VENUS JUVENTINO R MARKETING SERVICES VICE PRESIDENT Ot L97.512 NON-PRS CHRONIC ULCER OTH PRT RIGHT FOOT 02/03/2018 VENUS JUVENTINO R MARKETING SERVICES VICE PRESIDENT Ot E11.621 TYPE 2 DIABETES MELLITUS WITH FOOT ULCER 02/03/2018 VENUS JUVENTINO R MARKETING SERVICES VICE PRESIDENT Ot I87.2 VENOUS INSUFFICIENCY (CHRONIC) (PERIPHER 02/03/2018 VENUS JUVENTINO R MARKETING SERVICES VICE PRESIDENT Ot L97.512 NON-PRS CHRONIC ULCER OTH PRT RIGHT FOOT 02/03/2018 VENUS, JUVENTINO R MARKETING SERVICES VICE PRESIDENT Ot R60.0 LOCALIZED EDEMA 02/03/2018 VENUS, JUVENTINO R MARKETING SERVICES VICE PRESIDENT Ot S91.104A UNSP OPN WND RIGHT LESSER TOE(S) W/O DAM 02/05/2018 VNEUS, JUVENTINO R MARKETING SERVICES VICE PRESIDENT Ot E11.621 TYPE 2 DIABETES MELLITUS WITH FOOT ULCER 02/05/2018 VENUS, JUVENTINO R MARKETING SERVICES VICE PRESIDENT Ot I87.2 VENOUS INSUFFICIENCY (CHRONIC) (PERIPHER 02/05/2018 VENUS JUVENTINO R MARKETING SERVICES VICE PRESIDENT Ot L97.512 NON-PRS CHRONIC ULCER OTH PRT RIGHT FOOT 02/10/2018 VENUS JUVENTINO R MARKETING SERVICES VICE PRESIDENT Ot E11.621 TYPE 2 DIABETES MELLITUS WITH FOOT ULCER 02/10/2018 VENUS, JUVENTINO R MARKETING SERVICES VICE PRESIDENT Ot I73.9 PERIPHERAL VASCULAR DISEASE, UNSPECIFIED 02/10/2018 VENUS, JUVENTINO R MARKETING SERVICES VICE PRESIDENT Ot I87.2 VENOUS INSUFFICIENCY (CHRONIC) (PERIPHER 02/10/2018 VENUS JUVENTINO R MARKETING SERVICES VICE PRESIDENT Ot L97.512 NON-PRS CHRONIC ULCER OTH PRT RIGHT FOOT 02/10/2018 VENUS JUVENTINO R MARKETING SERVICES VICE PRESIDENT Ot M86.9 OSTEOMYELITIS, UNSPECIFIED 02/10/2018 MANLEYKENNEY A INFO ANALYST Ot I73.9 PERIPHERAL VASCULAR DISEASE, UNSPECIFIED 02/10/2018 MANLEYNEHEMIAHA A INFO ANALYST Ot M86.9 OSTEOMYELITIS, UNSPECIFIED 02/11/2018 JUVENTINO DONOVAN R MARKETING SERVICES VICE PRESIDENT Ot E11.621 TYPE 2 DIABETES MELLITUS WITH FOOT ULCER 02/11/2018 VENUS JUVENTINO R MARKETING SERVICES VICE PRESIDENT Ot I87.2 VENOUS INSUFFICIENCY (CHRONIC) (PERIPHER 02/11/2018 VENUS JUVENTINO R MARKETING SERVICES VICE PRESIDENT Ot L97.512 NON-PRS CHRONIC ULCER OTH PRT RIGHT FOOT 02/11/2018 VENUS JUVENTINO R MARKETING SERVICES VICE PRESIDENT Ot E11.621 TYPE 2 DIABETES MELLITUS WITH FOOT ULCER 02/11/2018 VENUS, JUVENTINO R MARKETING SERVICES VICE PRESIDENT Ot I87.2 VENOUS INSUFFICIENCY (CHRONIC) (PERIPHER 02/11/2018 VENUS JUVENTINO R MARKETING SERVICES VICE PRESIDENT Ot L97.512 NON-PRS CHRONIC ULCER OTH PRT RIGHT FOOT 02/18/2018 VENUS JUVENTINO R MARKETING SERVICES VICE PRESIDENT Ot E11.621 TYPE 2 DIABETES MELLITUS WITH FOOT ULCER 02/18/2018 VENUS JUVENTINO R MARKETING SERVICES VICE PRESIDENT Ot I87.2 VENOUS INSUFFICIENCY (CHRONIC) (PERIPHER 02/18/2018 VENUS JUVENTINO R MARKETING SERVICES VICE PRESIDENT Ot L97.514 NON-PRS CHRONIC ULCER OTH PRT RIGHT FOOT 02/20/2018 VENUS, JUVENTINO R MARKETING SERVICES VICE PRESIDENT Ot E11.621 TYPE 2 DIABETES MELLITUS WITH FOOT ULCER 02/20/2018 VENUS JUVENTINO R MARKETING SERVICES VICE PRESIDENT Ot I73.9 PERIPHERAL VASCULAR DISEASE, UNSPECIFIED 02/20/2018 VENUS JUVENTINO R MARKETING SERVICES VICE PRESIDENT Ot I87.2 VENOUS INSUFFICIENCY (CHRONIC) (PERIPHER 02/20/2018 JUVENTINO DONOVAN MARKETING SERVICES VICE PRESIDENT Ot L97.512 NON-PRS CHRONIC ULCER OTH PRT RIGHT FOOT 02/20/2018 JUVENTINO DONOVAN APRN Ot M86.9 OSTEOMYELITIS, UNSPECIFIED 02/23/2018 JUVENTINO DONOVAN APRN Ot E11.621 TYPE 2 DIABETES MELLITUS WITH FOOT ULCER 02/23/2018 JUVENTINO DONOVAN APRN Ot I87.2 VENOUS INSUFFICIENCY (CHRONIC) (PERIPHER 02/23/2018 JUVENTINO DONOVAN MARKETING SERVICES VICE PRESIDENT Ot L97.514 NON-PRS CHRONIC ULCER OTH PRT RIGHT FOOT Procedures Code Description Performed By Performed On 38.93 VENOUS CATHETERIZATION NEC 01/07/2011 67324 A1C (IN-HOUSE) 02/17/2012 87838 XRAY LUMBAR SPINE 2 OR 3 VIEWS 03/18/2012 57651 OXIMETRY 03/25/2012 67235 OXIMETRY 03/26/2012 15696 SLEEP STUDY 03/26/2012 30455 GLUCOSE FINGER STICK 03/26/2012 15649 SLEEP STUDY 03/27/2012 J1815 Novolin r 100 units/ml vial 100 unit/mL Solution 04/13/2012 18789 MONO TEST (IN-HOUSE) 09/09/2012 12622 MICRO ALBUMIN-IN HOUSE 09/11/2012 62740 ROUTINE VENIPUNCTURE 01/19/[address] SPINE, LUMBAR W/ AND W/O CONTRAST 01/19/2013 26310 TSH 01/19/[address] SPINE, LUMBAR W/O CONTRAST 01/21/[address] ABDOMEN AND PELVIS W/ CONTRAST 01/21/2013 86768 ROUTINE VENIPUNCTURE 06/03/2013 56553 CMP 06/03/2013 85353 TSH 06/03/2013 90715 CBC 06/03/2013 J1815 Novolin r 100 units/ml vial 100 unit/mL solution 06/03/2013 41350 A1C (IN-HOUSE) 06/03/2013 95683 ROUTINE VENIPUNCTURE 07/19/2013 89399 CMP 07/19/2013 ADDICTION YULIANA NICHOLS 07/19/2013 63734 ROUTINE VENIPUNCTURE 10/08/2013 52200 A1C (IN-HOUSE) 10/08/2013 54386 CBC 10/08/2013 5203396 GFR CALC (RESULT ONLY) 10/08/2013 50121 CMP 10/08/2013 90529 IRON SERUM 10/08/2013 61009 IRON BNDNG CAP 10/08/2013 31020 MAGNESIUM 10/08/2013 48285 VIT B 12 10/08/2013 66314 TSH 10/08/2013 02602 FOLATE 10/08/2013 82196 FERRITIN 10/08/2013 IRGROUP IRON GROUP (Iron,TIBC, Ferritin) 10/12/2013 67614 MRI EXTREMITY JOINT, UPPER LEFT, W/O CONTRAST 10/19/2013 91304 PSYCH DIAGNOSTIC EVALUATION 11/02/2013 22844 PSYTX PT&/FAMILY 30 MINUTES 11/11/2013 PHYSICAL WOUND CARE, [facility] 11/12/2013 37.22 LEFT HEART CARDIAC [...] Bacteria identification in isolate by anaerobe culture [id number] NRG Bacteria identification in isolate by anaerobe culture - 05/09/17 14:40 QUANTITY OF GROWTH Scant Growth NRG Bacteria identification in isolate by anaerobe culture [id number] NRG Gram stain microscopy - 05/09/17 14:40 GRAM STAIN RESULT NO BACTERIA OBSERVED NRG Gram stain microscopy - 05/09/17 14:40 GRAM STAIN RESULT FEW GRAM NEGATIVE RODS NRG Bacteria identification in wound by culture - 05/09/17 14:40 Bacteria identification in wound by culture [id number] NRG FREE TEXT EXTERNAL SEE COMMENT NRG [...] susceptibility test by minimum inhibitory concentration 2 NRG Bacterial susceptibility panel - 05/09/17 14:40 Oxacillin [...] 10/26/17 10:44 Blood monocytes/100 leukocytes 8 % NRG Manual blood segmented neutrophils/100 leukocytes 83 % NRG Blood band neutrophils/100 leukocytes 3 % NRG Manual blood lymphocytes/100 leukocytes 3 % NRG Manual eosinophils/100 leukocytes in nose 3 % NRG Blood erythrocyte morphology finding identification NORMAL NR Comprehensive metabolic panel - 10/26/17 10:44 Serum [...] plasma albumin measurement (mass/volume) 3.7 g/dL 3.2-4.5 Bacterial blood culture - 10/26/17 10:40 Bacterial blood culture NG NRG Bacterial blood culture - 10/26/17 11:09 Bacterial blood culture NG NRG Bacterial blood culture - 10/26/17 11:09 Bacterial blood culture NG NRG Capillary blood glucose measurement by glucometer (mass/volume) - 10/26/17 11: 14 Capillary blood glucose measurement by glucometer (mass/volume) 365 mg/dL 70-110 Complete urinalysis with reflex to culture - 10/26/17 11:49 Urine color determination YELLOW NRG Urine clarity determination CLEAR NRG Urine pH measurement by test strip 6 5-9 Specific gravity of urine by test strip 1.015 1.016- 1.022 Urine protein assay by test strip, semi-quantitative 3+ NEGATIVE Urine glucose detection by automated test strip 2+ NEGATIVE Erythrocytes detection in urine sediment by light microscopy 1+ NEGATIVE Urine ketones detection by automated test [...] measurement by glucometer (mass/volume) 104 mg/dL 70-110 Comprehensive metabolic panel - 10/27/17 10:16 Serum or plasma sodium measurement (moles/volume) 134 mmol/L 135-145 Serum or plasma potassium measurement (moles/volume) 4.2 mmol/L 3.6-5.0 Serum or plasma chloride measurement (moles/volume) 105 mmol/L 98-107 Carbon dioxide 22 mmol/L 21-32 Serum or plasma anion gap determination (moles/volume) 7 mmol/L 5-14 Serum or plasma urea nitrogen measurement (mass/volume) 11 mg/dL 7-18 Serum or plasma creatinine measurement (mass/volume) 0.84 mg/dL 0.60-1.30 Serum or plasma urea nitrogen/creatinine mass ratio 13 NRG Serum or plasma creatinine measurement with calculation of estimated glomerular filtration rate > NRG Serum or plasma glucose measurement (mass/volume) 304 mg/dL 70-105 Serum or plasma calcium measurement (mass/volume) 7.8 mg/dL 8.5-10.1 Serum or plasma total bilirubin measurement (mass/volume) 0.3 mg/dL 0.1-1.0 Serum or plasma alkaline phosphatase measurement (enzymatic activity/volume) 89 U/L 40-136 Serum or plasma aspartate aminotransferase measurement (enzymatic activity/ volume) 22 U/L 5-34 Serum or plasma alanine aminotransferase measurement (enzymatic activity/volume ) 20 U/L 0-55 Serum or plasma protein measurement (mass/volume) 5.1 g/dL 6.4-8.2 Serum or plasma albumin measurement (mass/volume) 2.9 g/dL 3.2-4.5 Blood lactic acid measurement (moles/volume) - 10/27/17 10:16 Blood lactic acid measurement (moles/volume) 2.40 mmol/L 0.50-2.00 Capillary blood glucose measurement by glucometer (mass/volume) - 10/27/17 11: 23 Capillary blood glucose measurement by glucometer (mass/volume) 270 mg/dL 70-110 Complete urinalysis with reflex to culture - 10/27/17 11:49 Urine color determination YELLOW NRG Urine clarity determination CLEAR NRG Urine pH measurement by test strip 6 5-9 Specific gravity of urine by test strip 1.015 1.016- 1.022 Urine protein assay by test strip, semi-quantitative 3+ NEGATIVE Urine glucose detection by automated test strip 2+ NEGATIVE Erythrocytes detection in urine sediment by light microscopy 1+ NEGATIVE Urine ketones detection by automated test [...] urinalysis with reflex to culture NO NRG Serum or plasma lactate measurement (moles/volume) - 10/27/17 13:37 Serum or plasma lactate measurement (moles/volume) 1.44 mmol/L 0.50-2.00 Capillary blood glucose measurement by glucometer (mass/volume) - 10/27/17 15: 37 Capillary blood glucose measurement by glucometer (mass/volume) 195 mg/dL 70-110 Capillary blood glucose measurement by glucometer (mass/volume) - 10/27/17 21: 01 Capillary blood glucose measurement by glucometer (mass/volume) 264 mg/dL 70-110 Complete blood count (CBC) with automated white blood cell (WBC) differential - 10/28/17 06:09 Blood leukocytes automated count (number/volume) 8.2 10*3/uL 4.3-11.0 Blood erythrocytes automated count (number/volume) 3.20 10*6/uL 4.35-5.85 Venous blood hemoglobin measurement (mass/volume) 10.2 g/dL 13.3-17.7 Blood hematocrit (volume fraction) 30 % 40-54 Automated erythrocyte mean corpuscular volume 93 [foz_us] 80-99 Automated erythrocyte mean corpuscular hemoglobin (mass per erythrocyte) 32 pg 25-34 Automated erythrocyte mean corpuscular hemoglobin concentration measurement ( mass/volume) 34 g/dL 32-36 Automated erythrocyte distribution width ratio 13.1 % 10.0-14.5 Automated blood platelet count (count/volume) 133 10*3/uL 130-400 Automated blood platelet mean volume measurement 11.0 [foz_us] 7.4-10.4 Automated blood neutrophils/100 leukocytes 66 % 42-75 Automated blood lymphocytes/100 leukocytes 21 % 12-44 Blood monocytes/100 leukocytes 10 % 0-12 Automated blood eosinophils/100 leukocytes 3 % 0-10 Automated blood basophils/100 leukocytes 0 % 0-10 Blood neutrophils automated count (number/volume) 5.4 10*3 1.8-7.8 Blood lymphocytes automated count (number/volume) 1.7 10*3 1.0-4.0 Blood monocytes automated count (number/volume) 0.9 10*3 0.0-1.0 Automated eosinophil count 0.2 10*3/uL 0.0-0.3 Automated blood basophil count (count/volume) 0.0 10*3/uL 0.0-0.1 Whole blood basic metabolic panel - 10/28/17 06:09 Serum or plasma sodium measurement (moles/volume) 136 mmol/L 135-145 Serum or plasma potassium measurement (moles/volume) 3.9 mmol/L 3.6-5.0 Serum or plasma chloride measurement (moles/volume) 107 mmol/L 98-107 Carbon dioxide 23 mmol/L 21-32 Serum or plasma anion gap determination (moles/volume) 6 mmol/L 5-14 Serum or plasma urea nitrogen measurement (mass/volume) 7 mg/dL 7-18 Serum or plasma creatinine measurement (mass/volume) 0.76 mg/dL 0.60-1.30 Serum or plasma urea nitrogen/creatinine mass ratio 9 NRG Serum or plasma creatinine measurement with calculation of estimated glomerular filtration rate > NRG Serum or plasma glucose measurement (mass/volume) 119 mg/dL 70-105 Serum or plasma calcium measurement (mass/volume) 8.0 mg/dL 8.5-10.1 Hemoglobin A1c - 10/28/17 06:09 Blood hemoglobin A1C measurement (mass/volume) 8.8 % 4.0- 5.6 MEAN BLOOD GLUCOSE 206 % <=126 Capillary blood glucose measurement by glucometer (mass/volume) - 10/28/17 06: 14 Capillary blood glucose measurement by glucometer (mass/volume) 133 mg/dL 70-110 Capillary blood glucose measurement by glucometer (mass/volume) - 10/28/17 11: 12 Capillary blood glucose measurement by glucometer (mass/volume) 259 mg/dL 70-110 Serum or plasma creatinine measurement with calculation of estimated glomerular filtration rate - 01/20/18 09:25 Serum or plasma creatinine measurement (mass/volume) 0.79 mg/dL 0.60-1.30 Serum or plasma creatinine measurement with calculation of estimated glomerular filtration rate > NRG Bacteria identification in isolate by anaerobe culture - 02/03/18 09:08 Bacteria identification in isolate by anaerobe culture NOANA NRG Gram stain microscopy - 02/03/18 09:08 Gram stain microscopy gram stain performed by [facility] Bacteria identification in wound by culture - 02/03/18 09:08 Bacteria identification in wound by culture SEE COMMEN NRG FREE TEXT EXTERNAL ID REPORTED 02/04/18 16:05 NRG QUANTITY OF GROWTH . NRG FREE TEXT ENTRY 2 SUSCEPTIBILITY REPORTED 02-11-2018, 1505 NRG Encounters ACCT No. Visit Date/Time Discharge Status Pt. Type Provider Facility Loc./Unit Complaint [id number] 06/29/2014 07:50:00 06/29/2014 23:59:59 CLS Outpatient STEPHANIE CHRISTIANSEN APRN [id number] 04/21/2014 09:44:00 04/21/2014 23:59:59 CLS Outpatient ELAINA JAMES, JOLLY [id number] 02/16/2014 08:48:00 02/16/2014 23:59:59 CLS Outpatient STEPHANIE CHRISTIANSEN APRN [id number] 02/05/2014 06:56:00 02/05/2014 23:59:59 CLS Outpatient TANVIR JAMES, CLARIBEL Braun [id number] 01/21/2014 10:00:00 01/21/2014 23:59:59 CLS Outpatient CACHORRO SHAW DO [id number] 12/17/2013 09:57:00 12/17/2013 23:59:59 CLS Outpatient SIMRAN LEGER APRN [id number] 12/17/2013 09:57:00 12/17/2013 23:59:59 CLS Outpatient SIMRAN LEGER APRN [id number] 11/12/2013 09:52:00 11/12/2013 23:59:59 CLS Outpatient CACHORRO SHAW DO [id number] 11/11/2013 15:58:00 11/11/2013 23:59:59 CLS Outpatient JE DONOVAN PHD [id number] 11/02/2013 13:59:00 11/02/2013 23:59:59 CLS Outpatient JE DONOVAN PHD [id number] 10/19/2013 16:42:00 10/19/2013 23:59:59 CLS Outpatient CACHORRO SHAW DO [id number] 10/08/2013 12:05:00 10/08/2013 23:59:59 CLS Outpatient CACHORRO SHAW DO [id number] 10/08/2013 12:05:00 10/08/2013 23:59:59 CLS Outpatient SHAW DOCACHORRO [id number] 07/21/2013 17:05:00 07/21/2013 23:59:59 CLS Outpatient JOLLY DELANEY MD [id number] 07/19/2013 11:17:00 07/19/2013 23:59:59 CLS Outpatient SHAW DOCACHORRO [id number] 06/03/2013 11:22:00 06/03/2013 23:59:59 CLS Outpatient SHAW DO, CACHORRO Larios [id number] 06/03/2013 11:22:00 06/03/2013 23:59:59 CLS Outpatient SHAW DOCACHORRO [id number] 01/19/2013 11:42:00 01/19/2013 23:59:59 CLS Outpatient SHAW DOCACHORRO [id number] 01/19/2013 11:42:00 01/19/2013 23:59:59 CLS Outpatient SHAW DOCACHORRO [id number] 11/02/2012 10:38:00 11/02/2012 23:59:59 CLS Outpatient SHAW DOCACHORRO [id number] 04/22/2012 11:01:00 04/22/2012 23:59:59 CLS Outpatient [id number] 04/13/2012 09:16:00 04/13/2012 23:59:59 CLS Outpatient SHAW DOCACHORRO [id number] 03/26/2012 08:41:00 03/26/2012 23:59:59 CLS Outpatient SHAW DOCACHORRO [id number] 03/26/2012 08:41:00 03/26/2012 23:59:59 CLS Outpatient SHAW DOCACHORRO [id number] 03/18/2012 15:47:00 03/18/2012 23:59:59 CLS Outpatient [id number] 02/17/2012 16:33:00 02/17/2012 23:59:59 CLS Outpatient SHAW DOCACHORRO [id number] 09/11/2012 09:20:00 Document Registration [id number] 09/09/2012 14:05:00 Document Registration [id number] 09/09/2012 14:05:00 Document Registration [id number] 09/23/2014 02:42:46 ACT Document Registration [id number] 02/17/2018 08:25:00 02/17/2018 23:59:59 CLS Outpatient JUVENTINO DONOVAN APRN [facility] W[facility] [id number] 02/10/2018 08:09:00 02/10/2018 23:59:59 CLS Outpatient JUVENTINO DONOVAN R MARKETING SERVICES VICE PRESIDENT [facility] W[facility] [id number] 02/03/2018 08:28:00 02/03/2018 23:59:59 CLS Outpatient JUVENTINO DONOVAN R MARKETING SERVICES VICE PRESIDENT [facility] WOUND[facility] [id number] 01/20/2018 09:12:00 01/20/2018 23:59:59 CLS Outpatient KENNEY MANLEY INFO ANALYST [facility] RAD PERIPERAL VASCULAR DISEASE [id number] 01/20/2018 08:14:00 01/20/2018 23:59:59 CLS Outpatient JUVENTINO DONOVAN MARKETING SERVICES VICE PRESIDENT [facility] WOUND[facility] [id number] 01/08/2018 08:03:00 01/08/2018 23:59:59 CLS Outpatient JUVENTINO DONOVAN R MARKETING SERVICES VICE PRESIDENT [facility] RAD NON-PRESSURE CHRONIC ULCER OF RT FOOT [id number] 01/06/2018 08:16:00 01/06/2018 23:59:59 CLS Outpatient JUVENTINO DONOVAN R MARKETING SERVICES VICE PRESIDENT [facility] W[facility] [id number] 12/30/2017 10:13:00 12/30/2017 23:59:59 CLS Outpatient JUVENTINO DONOVAN MARKETING SERVICES VICE PRESIDENT [facility] RAD TYPE 2 DIABETES [id number] 12/30/2017 08:20:00 12/30/2017 23:59:59 CLS Outpatient VENUS JUVENTINO R MARKETING SERVICES VICE PRESIDENT [facility] WOUND[facility] [id number] 10/26/2017 11:53:00 10/28/2017 17:53:00 DIS Inpatient MONTRELL JAMES, CHRISTY Guerrero [facility] 4TH FALL,FEVER [id number] 05/12/2017 17:29:00 05/12/2017 23:59:59 CLS Outpatient MARITZA ROBLERO MD [facility] CARD PREOPERATIVE CARDIOVASCULAR EXAM [id number] 05/09/2017 11:20:00 05/09/2017 23:59:59 CLS Outpatient ZULLY DPM, KENTON Q [facility] SDC OSTEOMYELITIS LEFT GREAT TOE [id number] 05/07/2017 10:23:00 05/07/2017 10:50:00 DIS Outpatient ZULLY DPM KENTON Q [facility] PREOP OSTEOMYELITIS LEFT GREAT TOE [id number] 04/21/2017 10:52:00 04/21/2017 23:59:59 CLS Outpatient ZULLY DPM KENTON Q [facility] RAD CHONIC ULCERATION LEFT HALLUX [id number] 03/17/2017 12:19:00 03/17/2017 23:59:59 CLS Outpatient MARLENY PRIETO [facility] RAD [id number] PAD [id number] 03/05/2017 07:35:00 03/05/2017 17:15:00 DIS Outpatient BRIDGER JUSTICE MD [facility] CATH NONHEALING WOUND, ABN CASI [id number] 07/19/2016 19:23:00 07/19/2016 23:10:00 DIS Emergency CUCO UMANA DO K [facility] ER DIARRHEA [id number] 06/04/2016 19:10:00 06/04/2016 23:59:59 CLS Outpatient JOLLY DELANEY MD [facility] GLC [id number] 05/22/2016 12:10:00 05/22/2016 23:59:59 CLS Outpatient STEPHANIE CHRISTIANSEN [facility] RAD PVD [id number] 02/09/2016 14:51:00 02/09/2016 23:59:59 CLS Outpatient JOLLY DELANEY MD [facility] LAB DIABETES [id number] 02/24/2015 13:06:00 02/24/2015 23:59:59 CLS Outpatient STEPHANIE CHRISTIANSEN [facility] RAD HYPERTHYROIDISM [id number] 09/22/2014 16:16:00 09/22/2014 18:57:00 DIS Emergency BRIAN HUGO APRN [facility] ER AMS [id number] 09/09/2014 16:15:00 09/09/2014 18:33:00 DIS Emergency MAN JAMES, TASIA Cabrera [facility] ER CONFUSION,NOT FEELING WELL [id number] 04/23/2014 09:25:00 04/23/2014 09:25:00 CAN Emergency KENTRELL BRADLEY MD [facility] ER [id number] 01/03/2014 14:15:00 02/03/2014 11:01:00 DIS Outpatient CAROL STRICKLAND [facility] WOUNDC[facility] RIGHT TOE AMPUTATION [id number] 01/19/2014 14:25:00 01/20/2014 15:25:00 DIS Inpatient TANVIR JAMES, CLARIBEL Braun [facility] 4TH DIABETES OUT OF CONTROL [id number] 01/05/2014 04:58:00 01/06/2014 11:30:00 DIS Inpatient CACHORRO SHAW DO [facility] CSD EXACERBATION OF LATE CVA EFFECTS,AMS,HYPONATREMIA, [id number] 09/10/2013 16:15:00 09/10/2013 21:10:00 DIS Emergency EMELIA BORJAS [facility] ER BLACK TOE ON R FOOT [id number] 09/04/2013 13:50:00 09/04/2013 16:09:00 DIS Emergency CAROL CARRILLO MD [facility] ER LOW BLOOD SUGAR [id number] 08/27/2013 07:59:00 08/27/2013 12:10:00 DIS Emergency YOLY DURBIN MD [facility] ER HYPOGLYCEMIA [id number] 06/24/2013 10:51:00 06/28/2013 14:59:00 DIS Inpatient SUMIT SHAW DOA K [facility] 4TH DEC LOC [id number] 06/23/2013 20:04:00 06/23/2013 23:00:00 DIS Emergency BRIAN HUGO APRN [facility] ER AMS [id number] 02/16/2013 10:26:00 02/16/2013 12:57:00 DIS Emergency BRIAN HUGO APRN [facility] ER LEFT SHOULDER/BACK PAIN [id number] 11/06/2012 14:14:00 11/06/2012 16:34:00 DIS Emergency RAMAKRISHNA JAMES, YOLY Larios [facility] ER CHEST PAIN [id number] 02/25/2018 10:00:00 PEN Preadmit VINH JAMES, BRIDGER Guerrero [facility] CATH CAD,PVD,HTN,HLP,DM [id number] 02/10/2015 09:33:00 Document Registration [id number] 02/10/2015 09:33:00 Document Registration [id number] 02/10/2015 09:33:00 Document Registration [id number] 02/10/2015 09:33:00 Document Registration [id number] 02/10/2015 09:33:00 Document Registration [id number] 02/10/2015 09:33:00 Document Registration [id number] 09/22/2014 19:02:00 Document Registration [id number] 09/22/2014 19:02:00 Document Registration [id number] 09/22/2014 19:02:00 Document Registration [id number] 09/22/2014 19:01:00 Document Registration [id number] 03/20/2012 17:45:00 Document Registration [id number] 12/13/2011 12:01:00 Document Registration [id number] 12/09/2011 07:30:00 Document Registration [id number] 11/21/2011 08:13:00 Document Registration [id number] 10/08/2011 12:35:00 Document Registration [id number] 01/07/2011 23:01:00 Document Registration [id number] 10/16/2010 02:17:00 Document Registration [id number] 06/17/2010 04:07:00 Document Registration [id number] 02/16/2010 09:47:00 Document Registration [id number] 09/13/2009 10:01:00 Document Registration [id number] 07/06/2016 19:30:00 07/16/2016 12:30:00 DIS Inpatient [facility] [id number] 07/06/2016 20:23:17 Document Registration
[2018-02-25 08:44] LABS: HEMOGLOBIN 12.2 G/DL (13.3-17.7); MEAN PLATELET VOLUME 10.2 FL (7.4-10.4); RED BLOOD COUNT 3.87 10^6/uL (4.35-5.85); RED CELL DISTRIBUTION WIDTH 12.7 % (10.0-14.5); WHITE BLOOD COUNT 8.2 10^3/uL (4.3-11.0)
[2018-02-25 08:55] LABS: INR 1.1 (0.8-1.4); PROTHROMBIN TIME PATIENT 14.2 SEC (12.2-14.7)
[2018-02-25 09:09] LABS: ALANINE AMINOTRANSFERASE 20 U/L (0-55); ALBUMIN 3.7 GM/DL (3.2-4.5); ALKALINE PHOSPHATASE 145 U/L (40-136); BILIRUBIN,TOTAL 0.3 MG/DL (0.1-1.0); BUN/CREATININE RATIO 6; CARBON DIOXIDE 28 MMOL/L (21-32); CHLORIDE 96 MMOL/L (98-107); CHOLESTEROL 113 MG/DL (< 200); CREATININE SERUM 0.85 MG/DL (0.60-1.30); GFR ESTIMATED > 60; GLUCOSE 127 MG/DL (70-105); HDL CHOLESTEROL 21 MG/DL (40-60); POTASSIUM 5.3 MMOL/L (3.6-5.0); SODIUM 131 MMOL/L (135-145); TOTAL PROTEIN 6.7 GM/DL (6.4-8.2); TRIGLYCERIDES 316 MG/DL (<150); VLDL CHOLESTEROL 63 MG/DL (5-40)
--- NOTE | 2018-02-25 09:13 | Diagnostic Imaging Report ---
INDICATION: Coronary artery disease, evaluation prior to heart catheterization. TECHNIQUE: Single view chest 8:52 AM. CORRELATION STUDY: 10/27/2017 FINDINGS: The heart size, mediastinal configuration and pulmonary vascularity are within normal limits. What appears to be senescent type change about the lung parenchyma. No definitive consolidating infiltrate. IMPRESSION: 1. Negative for acute abnormality of the chest. Likely chronic change about the lung parenchyma. Dictated by: Dictated on workstation # [id number]
[2018-02-25] MEDS ORDERED: CITA20TA9 PO (09:33)
[2018-02-25] MEDS ORDERED: INSU100I32 SQ (09:33)
[2018-02-25] MEDS ORDERED: IBUP-30 PO (09:33)
[2018-02-25] MEDS ORDERED: CLON0.5T13 PO (09:33)
[2018-02-25] MEDS ORDERED: CEPH-507 PO (09:33)
[2018-02-25] MEDS ORDERED: MAGN400O7 PO (09:33)
[2018-02-25] MEDS ORDERED: MIDAZOLAM 5 MG/5 ML (VERSED) VIAL ONE (10:52)
[2018-02-25] MEDS ORDERED: fentaNYL INJECTION 100 MCG/2 ML AMP ONE (10:52)
[2018-02-25] MEDS ORDERED: HEParin 1000 UNIT/ML (10ML VIAL) FOR BOLUS ONE (11:48)
[2018-02-25] MEDS ORDERED: PATIENT MAY USE OWN MEDS, ALL PO SCH (12:00)
--- NOTE | 2018-02-25 12:00 | Cardiac Procedure Note-CS/ASA ---
Pre-Procedure Note Pre-Op Procedure Note H&P Reviewed The H&P was reviewed, patient examined and no changes noted. Date H&P Reviewed: Feb 25, 2018 Time H&P Reviewed: 12:00 Conscious Sedation Pre-Proced Time 12:00 ASA Score 3 For ASA 3 and 4: Consider anesthesia and medical clearance. Also, for patients with a history of failed moderate sedation consider anesthesia. Airway Lungs Heart ASA score ASA 1: a normal healthy patient ASA 2: a patient with a mild systemic disease (mid diabetes, controlled hypertension, obesity x ASA 3: a patient with a severe systemic disease that limits activity (angina , COPD, prior Myocardial infarction) ASA 4: a patient with an incapacitating disease that is a constant threat to life (CHF, renal failure) ASA 5: a moribund patient not expected to survive 24 hrs. (ruptured aneurysm) ASA 6: a declared brain patient whose organs are being harvested. For emergent operations, add the letter E after the classification Mallampati Classification Grade 3 Sedation Plan Analgesia, Amnesia, Plan communicated to team members, Discussed options with patient/fam, Discussed risks with patient/fam The patient is an appropriate candidate to undergo the planned procedure, sedation, and anesthesia. The patient immediately re-assessed prior to indication. BRIDGER JUSTICE MD Feb 25, 2018 12:00
[2018-02-25] MEDS: NS IV 1000 ML 1,000 ML IV SCH ×2 (13:25→23:38)
[2018-02-25] MEDS: CEPHALEXIN 250 MG (KEFLEX) CAP PO SCH ×3 (13:47→21:28)
[2018-02-25] MEDS: DIVALPROX SPRINKLE 125 MG (DEPAKOTE) CAP PO SCH ×3 (13:48→21:28)
[2018-02-25] MEDS: LACTOBACILLUS ACIDOPHILUS (PROBIOTIC) CAPSULE PO SCH ×3 (13:48→21:27)
--- NOTE | 2018-02-25 13:56 | Cardiac Cath Report ---
Cardiac Cath Report Physician (s)/Computer Education Teacher (s) Physician BRIDGER JUSTICE MD Pre-Procedure Diagnosis Pre-Procedure Diagnosis: peripheral arterial disease, coronary artery disease Post-Procedure Note Procedure Start Date: Feb 25, 2018 Name of Procedure: Left heart catheterization Left ventriculogram Abdominal aortogram with bilateral runoff Selective contralateral common femoral position with runoff, second-order, additional imaging Selective ipsilateral common iliac position of catheter with runoff, first order, additional imaging Findings/Procedure Note PROCEDURE NOTE: After explaining the procedure to the patient, all pros and cons were explained , all questions were answered. The patient signed the consent and then he was placed on the cardiac catheterization laboratory. Groin was prepped SL fashion local anesthesia was used. Sheath placed in the left femoral artery with difficulties, I was unable to advance J-wire, used a long stork wire advanced Soha right up to the right coronary artery and angiogram was done and then exchange it into Soha left catheter and advanced to the left corner system and angiogram was done then a it was exchanging to a pigtail catheter that was advanced to the left ventricular cavity and pressure was measured. Pullback LV to aorta was done. Aortic arch angiogram was done. Then the pigtail catheter was placed in the abdominal aorta and abdominal aortogram with runoff, at that time I noticed total occlusion of both SFA, I tried to cross over with a pigtail catheter which was not successful I was able to exchange it over long stork wire into UF catheter and was able to cross over with difficulty through severe stenosis at the common iliac on the right side then exchanged the catheter into a straight catheter was placed at the right common femoral artery and did 2 injection with runoff to the right lower extremity, I flushed the catheter and measured the pressure and then pullback catheter and measured the pressure at the right common femoral then at the right common iliac then at the abdominal aorta and significant step up was noted between the right common iliac and abdominal aorta then I pulled the straight catheter down to the ipsilateral common iliac artery on the left and did runoff to the left lower extremity again then the catheter was removed with manual pressure At the end of the procedure the sheath was removed. Closure device was not used , manual pressure applied FINDINGS: Hemodynamics LV 130/9, end-diastolic pressure of 9 Aorta 148/77 mean of 56 Right common femoral artery 74/51 mean of 60 Right common iliac artery 88/50 mean of 70 Abdominal aorta 150/54 mean of 85 Left common iliac artery 144/55 mean of 88 ANATOMY: Left Main Is calcified with mild disease Left Anterior Descending Has moderate to severe proximal LAD stenosis, calcified artery Left Circumflex Is totally occluded, the first obtuse marginal branch is receiving collaterals from the left system Right Coronory Artery Has severe disease at the proximal and distal portion, dominant artery LV Gram Was not done, pressure was measured Aorta Evaluation done on multiple level Aortic arch angiogram showed hypertensive changes with mild dilatation of the arch. Calcified right carotid artery and slightly tortuous, the left carotid has some calcification nonobstructive disease Abdominal aortogram with bilateral runoff showed hypertensive changes in the abdominal aorta, renal arteries, superior and inferior mesenteric arteries were normal. Severe stenosis at the bifurcation, reevaluation of the bifurcation with a pigtail catheter just above the bifurcation showed severe right iliac stenosis Right lower extremity evaluation: Severe right iliac artery stenosis just below the bifurcation with significant gradient up to 70 mmHg across the lesion, patent stent at the right common femoral artery then occluded right SFA reconstructed at the popliteal level with single-vessel runoff down to the foot Left lower extremity, moderate disease at the left common iliac and left common femoral with patent stent in the left common femoral, below the sheath there was no flow in the SFA. CONCLUSION: 1. Severe multi-vessel coronary artery disease with total occlusion of the circumflex artery severe disease at the proximal LAD severe disease at the proximal and distal right coronary artery 2. Normal left ventricular end-diastolic pressure 3. Hypertensive changes in the aortic arch and tortuous and calcified carotids 4. Patent stent in the right common femoral artery with occluded right SFA reconstructed at the popliteal artery by collaterals and 1 vessel runoff down to the foot 5. Patent stent in the left common femoral artery with severe disease and occluded left SFA DISCUSSION AND RECOMMENDATION: Patient is considered high risk due to the extensive peripheral arterial disease and coronary artery disease, I recommended referring him back to Dr. Rodriguez for evaluation prior to considering amputation of distal Anesthesia Type: Conscious Sedation Estimated blood loss (mL): 30 ml Contrast Amount: 79 ml Total Radiation Dose: 511 mGy Post-Procedure Diagnosis Post-operative diagnosis: Ischemic right foot with ischemic toe Peripheral arterial disease Coronary artery disease Hypertension Hyperlipidemia BRIDGER JUSTICE MD Feb 25, 2018 13:56
[2018-02-25] MEDS ORDERED: clonazePAM 0.5 MG (KlonoPIN) TAB PO SCH (14:00)
[2018-02-25] MEDS ORDERED: amLODIPine 10 MG (NORVASC) TAB PO NR (14:57)
[2018-02-25] MEDS ORDERED: meTOprolol TARTRATE 25 MG (LOPRESSOR) TABLET PO ONE (14:58)
[2018-02-25] MEDS: meTOprolol TARTRATE 25 MG (LOPRESSOR) TABLET PO SCH (15:11)
[2018-02-25] MEDS: LEVETIRACETAM 500 MG (KEPPRA) TAB PO SCH (17:10)
[2018-02-25] MEDS ORDERED: MIRTAZAPINE 15 MG (REMERON) TAB PO SCH (21:00)
[2018-02-25] MEDS ORDERED: MELATONIN 3 MG TABLET PO SCH (21:00)
[2018-02-25] MEDS ORDERED: DONEPEZIL 10 MG (ARICEPT) TAB PO SCH (21:00)
[2018-02-25] MEDS ORDERED: SIMvastatin 10 MG (ZOCOR) TAB PO SCH (21:00)
[2018-02-25] MEDS: cloNIDine 0.2 MG (CATAPRES) TAB PO SCH (21:28)
[2018-02-26] VITALS: BP 157/79
[2018-02-26 00:52] VITALS: BP 127/77
[2018-02-26 03:43] LABS: HEMOGLOBIN 11.6 G/DL (13.3-17.7); MEAN PLATELET VOLUME 10.3 FL (7.4-10.4); RED BLOOD COUNT 3.66 10^6/uL (4.35-5.85); RED CELL DISTRIBUTION WIDTH 12.8 % (10.0-14.5)
[2018-02-26 04:02] LABS: BUN/CREATININE RATIO 11; CALCIUM 8.6 MG/DL (8.5-10.1); CARBON DIOXIDE 26 MMOL/L (21-32); CHLORIDE 102 MMOL/L (98-107); CREATININE SERUM 0.84 MG/DL (0.60-1.30); GFR ESTIMATED > 60; GLUCOSE 149 MG/DL (70-105); POTASSIUM 5.1 MMOL/L (3.6-5.0); SODIUM 136 MMOL/L (135-145)
[2018-02-26 05:30] VITALS: BP 130/87
[2018-02-26] MEDS ORDERED: inSUlin DETERMIR 1 UNIT/0.01 ML (LEVEMIR) CHARGE PER UNIT SQ SCH (06:00)
[2018-02-26] MEDS ORDERED: LEVOTHYROXINE 100 MCG (LEVOTHROID) TAB PO SCH (06:30)
[2018-02-26] MEDS ORDERED: GLIMEPIRIDE 4 MG (AMARYL) TAB PO SCH (06:30)
[2018-02-26] MEDS ORDERED: LEVOTHYROXINE 75 MCG (LEVOTHROID) TABLET PO SCH (06:30)
[2018-02-26] MEDS: NS IV 1000 ML 1,000 ML IV SCH (07:07)
[2018-02-26] MEDS ORDERED: ICOS1CAP PO (07:54)
--- NOTE | 2018-02-26 07:55 | Discharge Inst-Post CATH ---
Discharge Inst-CATH Post Cardiac Cath D/C Inst Follow Up/Plan Appointment with Dr Rodriguez as soon as possible Appointment with Dr. Justice's office in 2-4 weeks CARDIAC CATH DISCHARGE INSTRUCTIONS *Hold Metformin for 48 hours post heart cath. ACTIVITY * Go Home directly and rest. * Limit activity of the leg (or wrist if it was used) for 7 days including aerobics, swimming, jogging, bicycling, etc. * Restrict stair-climbing for 7 days if possible, if not, climb up with your non -cath leg, then bring together on the same step. * Avoid lifting, pushing, pulling or excessive movement of the affected extremity for 7 days. * Customary sexual activity may be resumed after 2 days-use caution not to use a position that strains or causes pain to the affected extremity. * No driving for 24 hours. * NO SMOKING. * Avoid straining for bowel movements for 7 days. * Gentle walking on level ground is allowed. * Returning to work will depend on the type of procedure and the results. Your doctor will discuss this with you. CALL YOUR DOCTOR FOR ANY OF THE FOLLOWING: *If bleeding from the puncture site occurs- Apply gentle pressure to site with clean cloth and call your doctor or EMS. * If a knot or lump forms under the skin, increases in size, or causes pain. * If bruising appears to be worsening or moving further down your leg instead of disappearing. * Temperature above 101 F. CARE OF YOUR GROIN INCISION; * Bruising or purple discoloration of the skin near the puncture site is common. * You may shower only, no bathtub bathing for 5 days. Be careful to avoid slipping as your leg may feel stiff. * If a closure device was used on your femoral artery, please see the attached guide regarding care of the device and your leg. * Leave the dressing on, until removed by office staff. CARE OF YOUR WRIST INCISION; * Bruising or purple discoloration of the skin near the puncture site is common. * You may shower. * DO NOT submerge wrist. * Leave dressing on, until removed by office staff.. BRIDGER JUSTICE MD Feb 26, 2018 07:55
--- NOTE | 2018-02-26 07:58 | Cardiology Progress Note ---
Subjective Date Seen by Provider: Feb 26, 2018 Time Seen by Provider: 07:56 Subjective/Events-last exam Patient is laying down in bed, no new complaint, groin is healing well, eating breakfast Review of Systems General: No Chills, No Night Sweats, No Fatigue, No Malaise, No Appetite, No Other HEENT: No Head Aches, No Visual Changes, No Eye Pain, No Ear Pain, No Dysphasia , No Sinus Congestion, No Post Nasal Drip, No Sore Throat, No Other Pulmonary: No Dyspnea, No Cough, No Pleuritic Chest Pain, No Other Cardiovascular: No: Chest Pain, Palpitations, Orthopnea, Paroxysmal Noc. Dyspnea, Edema, Lt Headedness, Other Objective-Cardiology Exam Last Set of Vital Signs Vital Signs 02/26/18 05:30 Temp 97.4 Pulse 66 Resp 14 B/P (MAP) 130/87 (101) Pulse Ox 97 O2 Delivery Room Air Capillary Refill : Less Than 3 Seconds I&O Intake and Output 02/26/18 00:00 Intake Total 200 ml Output Total 625 ml Balance -425 ml Intake Oral 200 ml Output Urine Total 625 ml General: Alert, Oriented X3, Cooperative HEENT: Atraumatic, PERRLA Neck: Supple, No JVD, No Thyromegaly Lungs: Clear to Auscultation, Normal Air Movement Heart: Regular Rate, Normal S1, Normal S2, No Murmurs Abdomen: Normal Bowel Sounds, Soft, No Tenderness, No Hepatosplenomegaly, No Masses Extremities: No Clubbing, No Cyanosis, No Edema, Normal Pulses, No Tenderness/ Swelling Skin: No Rashes, No Breakdown, No Significant Lesion Neuro: Normal Gait, Normal Speech, Strength at 5/5 X4 Ext, Normal Tone, Sensation Intact Psych/Mental Status: Mental Status NL, Mood NL Results Lab Laboratory Tests 02/25/18 08:30 02/26/18 03:09 A/P-Cardiology Admission Diagnosis Ischemic foot with ischemic toe Peripheral arterial disease Coronary artery disease Hypertension Hyperlipidemia Assessment/Plan Extensive coronary artery disease need evaluation for CABG, scheduled to be evaluated as an outpatient Extensive peripheral arterial disease, had multiple intervention done with Dr. Rodriguez, scheduled to follow-up with him as soon as possible 1. Severe multi-vessel coronary artery disease with total occlusion of the circumflex artery severe disease at the proximal LAD severe disease at the proximal and distal right coronary artery 2. Normal left ventricular end-diastolic pressure 3. Hypertensive changes in the aortic arch and tortuous and calcified carotids 4. Patent stent in the right common femoral artery with occluded right SFA reconstructed at the popliteal artery by collaterals and 1 vessel runoff down to the foot 5. Patent stent in the left common femoral artery with severe disease and occluded left SFA Hypertension, continue current medication and monitor blood pressure next Hyperlipidemia/hypertriglyceridemia, maintained on simvastatin, added Vascepa and will evaluate tolerance Continue all other medication Arrange for follow-up in 2 weeks BRIDGER JUSTICE MD Feb 26, 2018 07:58
[2018-02-26 08:00] VITALS: BP 134/81
[2018-02-26] MEDS ORDERED: clonazePAM 1 MG (KlonoPIN) TAB PO SCH (08:00)
[2018-02-26] MEDS ORDERED: EXELON PATCH REMOVAL TP SCH (08:59)
[2018-02-26 09:00] VITALS: BP 136/83
[2018-02-26] MEDS ORDERED: CLOPIDOGREL 75 MG (PLAVIX) TABLET PO SCH (09:00)
[2018-02-26] MEDS ORDERED: RIVASTIGMINE 9.5 MG PATCH (EXELON) NON-FORMULARY TD SCH (09:00)
[2018-02-26] MEDS ORDERED: ASPIRIN E.C. 81 MG (ECOTRIN) TAB PO SCH (09:00)
[2018-02-26] MEDS ORDERED: ENALAPRIL 2.5 MG (VASOTEC) TAB PO SCH (09:00)
[2018-02-26] MEDS: DIVALPROX SPRINKLE 125 MG (DEPAKOTE) CAP PO SCH (09:02)
[2018-02-26] MEDS: LACTOBACILLUS ACIDOPHILUS (PROBIOTIC) CAPSULE PO SCH (09:02)
[2018-02-26] MEDS: cloNIDine 0.2 MG (CATAPRES) TAB PO SCH (09:02)
[2018-02-26] MEDS: meTOprolol TARTRATE 25 MG (LOPRESSOR) TABLET PO SCH (09:03)
[2018-02-26] MEDS: LEVETIRACETAM 500 MG (KEPPRA) TAB PO SCH (09:03)
[2018-02-26] MEDS: CEPHALEXIN 250 MG (KEFLEX) CAP PO SCH (09:09)
== END 2018-02-26 12:20 ==
LOC: CATH 07:28 → SDC 13:12 → ICU 16:15 → CATH 02-26 12:20
PROVIDERS: ATTEND Internal Medicine Cardiovascular Disease
DX: I70.213 Atherosclerosis of native arteries of extremities with intermittent claudication, bilateral legs (principal); I25.10 Atherosclerotic heart disease of native coronary artery without angina pectoris; I25.82 Chronic total occlusion of coronary artery; I10 Essential (primary) hypertension; E78.5 Hyperlipidemia, unspecified; E78.1 Pure hyperglyceridemia; E11.9 Type 2 diabetes mellitus without complications; G40.909 Epilepsy, unspecified, not intractable, without status epilepticus; E03.9 Hypothyroidism, unspecified; I65.23 Occlusion and stenosis of bilateral carotid arteries; F17.210 Nicotine dependence, cigarettes, uncomplicated; Z86.73 Personal history of transient ischemic attack (TIA), and cerebral infarction without residual deficits; Z82.49 Family history of ischemic heart disease and other diseases of the circulatory system; Z95.820 Peripheral vascular angioplasty status with implants and grafts; Z79.84 Long term (current) use of oral hypoglycemic drugs; Z79.899 Other long term (current) drug therapy; Z91.14 Patient's other noncompliance with medication regimen
CPT/HCPCS: 36221; 36246; 36415; 71045; 80048; 80053; 80061; 85027; 85610; 85730; 87081; 93458

== ENCOUNTER 2018-03-11 13:02 | Emergency (ER) | payer MEDICARE, MEDICAID ==
[~2018-03-11] VITALS: Ht 177.8 cm; Wt 127.0 kg
[~2018-03-11 13:02] MED LIST changes: +CITA20TA9 PO; +IBUP-30 PO; +ICOS1CAP PO; +INSU100I32 SQ; +MAGN400O7 PO
--- OUTSIDE RECORDS SUMMARY | 2018-03-11 13:08 | XMS REPORT ---
Author Author STEPHANIE CHRISTIANSEN [facility] Address [address] [place] [address] Care Team Providers Care Practice Representative Name Role Phone STEPHANIE CHRISTIANSEN Unavailable PROBLEMS Type Condition ICD9-CM Code [id number] Code Onset Dates Condition Status SNOMED Code Problem Hyperlipidemia, unspecified hyperlipidemia type E78.5 Active 48378562 Problem Abnormal carotid ultrasound R93.8 Active 901188134 Problem Type 2 diabetes mellitus with complication E11.8 Active 97439477 Problem Positive TB test R76.11 Active 533058808 Problem Vascular dementia with behavior disturbance F01.51 Active 466104855 Problem Recurrent major depressive disorder, remission status unspecified F33.9 Active 49002787 Problem Pain R52 Active 41058740 Problem Generalized anxiety disorder F41.1 Active 46945782 Problem PVD (peripheral vascular disease) I73.9 Active 157074354 Problem Unstable angina pectoris I20.0 Active 7083526 Problem Other chronic osteomyelitis of left foot M86.672 Active 923069627 Problem Cerebrovascular accident (CVA) due to other mechanism I63.8 Active 839874478 Problem Peripheral vascular disease due to secondary diabetes E13.51 Active 5966243 Problem Nonintractable epilepsy without status epilepticus, unspecified epilepsy type G40.909 Active 551391481 Problem Pseudobulbar affect F48.2 Active 65115568 Problem Anxiety F41.9 Active 26076661 Problem Nicotine dependence, unspecified, uncomplicated F17.200 Active 194408005 Problem Vascular dementia F01.50 Active 652728627 Problem Gastroesophageal reflux disease without esophagitis K21.9 Active 719159248 Problem Essential hypertension I10 Active 92020267 Problem Pulmonary emphysema, unspecified emphysema type J43.9 Active 55262917 Problem Coronary artery disease involving hoh coronary artery of hoh heart without angina pectoris I25.10 Active 4455706902460 Problem Depression F32.9 Active 95825865 Problem Long-term insulin use Z79.4 Active 846131308 Problem Acquired hypothyroidism E03.9 Active 557218288 Problem Neuropathy G62.9 Active 292647193 ALLERGIES No Information ENCOUNTERS Encounter Location Date Diagnosis [facility] [id number] [place] [address] 78076- 2875 Feb, Generalized anxiety disorder F41.1 [facility] [address] [facility] [address] [place] [id number] Feb, Other acute osteomyelitis of right foot M86.171 ; Type 2 diabetes mellitus with complication E11.8 ; Hyperglycemia R73.9 and Unstable angina pectoris I20.0 [facility] [id number] [place] [address] 94214- 6571 02 Feb, 2018 [facility] [id number] [place] [address] 95715- 2005 18 Jan, 2018 Generalized anxiety disorder F41.1 [facility] [id number] [place] [address] 66473- 1952 15 Jan, 2018 Generalized anxiety disorder F41.1 [facility] [address] [place] [id number] Dec, Crush injury T14.8XXA [facility] [id number] [place] [address] 29608- 8014 14 Dec, 2017 Generalized anxiety disorder F41.1 [facility] [id number] [place] [address] 22480- 4844 14 Dec, 2017 [facility] [id number] [place] [address] 44572- 7083 Dec, [facility] [id number] [place] [address] 63286- 1191 Nov, Generalized anxiety disorder F41.1 [facility] [id number] [place] [address] 27894- 6063 Oct, Generalized anxiety disorder F41.1 [facility] [id number] [place] [address] 05775- 2689 Oct, Generalized anxiety disorder F41.1 [facility] [address] [id number] Oct, Sepsis, due to unspecified organism A41.9 ; Generalized anxiety disorder F41.1 ; Pain R52 and Depression F32.9 [facility] [address] [place] [address] 30919- 2605 Oct, [facility] [address] [place] [address] 79937- 5964 Oct, [facility] [id number] [place] [address] 77850- 6256 Sep, Generalized anxiety disorder F41.1 [facility] [id number] [place] [address] 41364- 8349 Sep, [facility] [id number] [place] [address] 74117- 6194 Sep, Type 2 diabetes mellitus with complication E11.8 [facility] [id number] [place] [address] 74383- 2642 August, Generalized anxiety disorder F41.1 [facility] [address] [place] [address] 34099- 3616 August, [facility] [address] [facility] [place] [id number] August, Type 2 diabetes mellitus with complication E11.8 ; Vascular dementia with behavior disturbance F01.51 ; Long-term insulin use Z79.4 and Nicotine dependence, unspecified, uncomplicated F17.200 [facility] [address] [place] [address] 28766- 3347 August, Generalized anxiety disorder F41.1 [facility] [address] [place] [address] 81524- 5913 Jul, Generalized anxiety disorder F41.1 [facility] [id number] [place] [address] [id number] Jun, Generalized anxiety disorder F41.1 [facility] [id number] [place] [address] [id number] Jun, [facility] [id number] [id number] May, [facility] [address], [place] [address]- 1859 May, [facility] [id number] [id number] May, Generalized anxiety disorder F41.1 [facility] [id number] [place] [address] 692304- 2547 Apr, [facility] [address] [place] [id number] Apr, Other chronic osteomyelitis of left foot M86.672 ; Type 2 diabetes mellitus with complication E11.8 ; Vascular dementia F01.50 ; Long-term insulin use Z79.4 ; PVD (peripheral vascular disease) I73.9 and Nicotine abuse 305.1 [facility] [address] [place] [address] 28886- 6301 Apr, [facility] [id number] [place] [address] [id number] Apr, [facility] [address] [place] [address] 00958- 6794 Apr, Pain R52 and Generalized anxiety disorder F41.1 [facility] [address], [place] [address]- 4018 Mar, [facility] [address] [place] [address] 46538- 0858 Mar, Pain R52 and Generalized anxiety disorder F41.1 [facility] [address] [id number] Feb, Depression F32.9 ; Type 2 diabetes mellitus with complication E11.8 and Nicotine dependence, unspecified, uncomplicated F17.200 [facility] [address] [address] 4409 Feb, Generalized anxiety disorder F41.1 and Pain R52 [facility] [id number] [place] [address] 38441- 4314 Feb, [facility] [id number] [place] [address] 74956- 4944 Jan, [facility] [id number] [place] [address] 75932- 0291 Jan, Generalized anxiety disorder F41.1 and Pain R52 [facility] [address] 15112- 3389 Jan, [facility] [id number] [place] [address] [id number] Dec, Generalized anxiety disorder F41.1 and Pain R52 [facility] [address] [place] [id number] Dec, Vascular dementia F01.50 ; Pain of left leg M79.605 ; Pain in right leg M79.604 and Type 2 diabetes mellitus with complication E11.8 [facility] [address] 36611- 9306 Dec, Pain R52 [facility] [id number] [place] [address] 16320- 0272 Dec, [facility] [id number] [place] [address] 83978- 9191 Nov, [facility] [address] [place] [address] 64812- 9969 Nov, Pain R52 and Generalized anxiety disorder F41.1 [facility] [address] [id number] Nov, Depression F32.9 ; Vascular dementia with behavior disturbance F01.51 and Anxiety F41.9 [facility] [id number] [place] [address] 57107- 7010 Nov, Pain R52 and Generalized anxiety disorder F41.1 [facility] [id number] [place] [address] 45835- 6290 Oct, Generalized anxiety disorder F41.1 [facility] [id number] [address]- 8466 Oct, Pain R52 [facility] [address] [place] [address] 34698- 6231 Sep, [facility] [address] [facility] [address] [place] [id number] Sep, Generalized anxiety disorder F41.1 [facility] [address], [place] [address]- 8759 Sep, Pain R52 [facility] [id number] [place] [address] 13521- 1510 Sep, Generalized anxiety disorder F41.1 [facility] [address] [place] [address] 98527- 5796 August, [facility] [id number], [place] [address]- 9415 August, [facility] [address], [place] [address]- 4772 August, Pain R52 [facility] [address], [place] [address]- 1431 August, Generalized anxiety disorder F41.1 [facility] [id number] [id number] August, Generalized anxiety disorder F41.1 [facility] [address], [place] [address]- 0600 Jul, Pain R52 [facility] [id number], [place] [address]- 0763 Jul, [facility] [id number] [place] [address] [id number] Jul, [facility] [address], [place] [address]- 2546 Jun, [facility] [id number] [id number] Jun, Depression F32.9 [facility] [id number] [place] [address] 52125- 3785 Jun, Pain R52 [facility] [id number] [place] [address] 45250- 1616 Jun, [facility] [address] [place] [id number] Jun, Vascular dementia F01.50 and Depression F32.9 [facility] [id number] [place] [address] 68930- 2767 May, Pain R52 [facility] [address] 04224- 2996 May, [facility] [address] 43270- 4636 10 May, 2016 Pseudobulbar affect F48.2 [facility] [address] 22733- 6607 09 May, 2016 [facility] [id number] [place] [address] 09973- 1857 08 May, 2016 PVD (peripheral vascular disease) I73.9 [facility] [id number] [place] [address] 13719- 0005 08 May, 2016 Vascular dementia with behavior disturbance F01.51 [facility] [id number] [place] [address] 07805- 9983 02 May, 2016 Vascular dementia with behavior disturbance F01.51 [facility] [id number] [place] [address] 29416- 1952 Apr, [facility] [address] 03412- 7261 Apr, Pain R52 [facility] [address] [place] [id number] Apr, Generalized anxiety disorder F41.1 ; PVD (peripheral vascular disease) I73.9 and Type 2 diabetes mellitus with complication E11.8 [place] [address] [place] [address] 01506- 3053 Apr, Vascular dementia with behavior disturbance F01.51 [facility] [id number] [place] [address] 89822- 5439 Apr, [facility] [id number] [place] [address] 32940- 4923 Apr, Vascular dementia with behavior disturbance F01.51 [facility] [id number] [place] [address] 27979- 5368 Apr, [facility] [address] [id number] Mar, [facility] [id number] [place] [address] 59124- 3758 Mar, Type 2 diabetes mellitus with complication E11.8 ; Vascular dementia with behavior disturbance F01.51 and Depression F32.9 [facility] [id number] [place] [address] 59179- 8284 Mar, [facility] [id number] [place] [address] 85476- 7019 Feb, [facility] [id number] [place] [address] 56331- 5225 Feb, Viral illness B34.9 [facility] [address] [place] [address] 44182- 8338 Jan, Diabetes 250.00 [facility] [id number] [place] [address] 75844- 1073 Jan, [facility] [id number] [place] [address] 98720- 7637 Jan, [facility] [id number] [place] [address] 23185- 3211 Jan, [facility] [address] [facility] [place] [id number] Jan, Vascular dementia with behavior disturbance F01.51 and Type 2 diabetes mellitus with complication E11.8 [facility] [address] [facility] [id number], [place] [address]- 3150 Jan, Pain R52 [facility] [address] [facility] [id number], [place] [address]- 0236 Jan, Pain R52 [facility] [address], [place] [address]- 1671 Dec, [facility] [address], [place] [address]- 0128 Nov, [facility] [address] [facility] [address] [place] [id number] Nov, Type 2 diabetes mellitus with complication E11.8 [facility] [address], [place] [address]- 6303 Nov, [facility] [address], [place] [address]- 0396 Oct, [facility] [address], [place] [address]- 6037 Oct, [facility] [address] [place] [address] 47308- 2860 Oct, Vascular dementia with behavior disturbance F01.51 and Type 2 diabetes mellitus with complication E11.8 [facility] [address], [place] [address]- 2282 August, Type 2 diabetes mellitus with complication E11.8 and Vascular dementia with behavior disturbance F01.51 [facility] [address], [place] [address]- 5464 August, Vascular dementia F01.50 [facility] [address], [place] [address]- 6372 August, Vascular dementia with behavior disturbance F01.51 [facility] [address], [place] [address]- 7360 Jul, Vascular dementia with behavior disturbance F01.51 [facility] [address] [address]- 6166 Jun, Vascular dementia F01.50 [facility] [address], [place] [address]- 0557 Jun, Type 2 diabetes mellitus with complication E11.8 ; Long- term insulin use Z79.4 and Vascular dementia with behavior disturbance F01.51 [facility] [address], [place] [address]- 5263 08 Jun, 2015 Vascular dementia with behavior disturbance F01.51 [facility] [address], [place] [address]- 6609 07 Jun, 2015 Vascular dementia F01.50 [facility] [address], [place] [address]- 7157 Apr, [facility] [facility] [address], [place] [address]- 3206 Apr, [place] [address], [place] [address]- 5743 Apr, [facility] [address], [place] [address]- 0532 Apr, Type 2 diabetes mellitus with complication E11.8 ; Depression F32.9 and Long-term insulin use Z79.4 [facility] [facility] [address], [place] [address]- 6345 Mar, [facility] [address] [id number] Mar, Depression F32.9 ; Type 2 diabetes mellitus with complication E11.8 and Long-term insulin use Z79.4 [place] [address], [place] [address]- 4885 Feb, [facility] [address], [place] [address]- 5755 16 Feb, 2015 Hyperthyroidism E05.90 [place] [facility] [address], [place] [address]- 9338 Feb, Hyperthyroidism E05.90 [facility] [address], [place] [address]- 8874 Feb, [facility] [address], [place] [address]- 6386 Jan, [facility] [address], [place] [address]- 0285 Dec, Nicotine addiction 305.1 [facility] [id number] [place] [address] 96864- 1614 Oct, Nicotine abuse 305.1 [facility] [id number] [place] [address] 19831- 1308 Oct, [facility] [address], [place] [address]- 1186 August, [facility] [address] [id number] August, History of drug abuse 305.93 and Diabetes 250.00 [facility] [address], [place] [address]- 9277 14 Jul, 2014 [facility] [address], [place] [address]- 8825 Jul, [facility] [address]- 3652 18 Jun, 2014 [facility] [address], [place] [address]- 6410 18 Jun, 2014 [facility] [address], [place] [address]- 9436 Jun, [facility] [address], [place] [address]- 5466 Jun, [facility] [address], [place] [address]- 3766 04 Jun, 2014 [facility] [address], [place] [address]- 4643 Jun, [facility] [place] [facility] [address] [id number] [place] [address]- 7061 May, [facility] [place] [facility] [address] [id number] [place] [address]- 4533 May, [facility] [place] [facility] [address] [facility] [id number] [place] [address]- 1162 May, [facility] [place] [facility] [address] [id number] [place] [address]- 4985 May, [facility] [place] [facility] [address] [id number] [place] [address]- 1769 May, [facility] [place] [facility] [address] [facility] [id number] [place] [address]- 6944 Apr, [facility] [address] [facility] [id number], [place] [address]- 2438 Apr, [place] [address] [id number] Apr, [facility] [place] [facility] [address] [facility] [id number], [place] [address]- 0575 Apr, [facility] [place] [facility] [address] [facility] [id number], [place] [address]- 9602 Apr, [facility] [place] [facility] [address] [facility] [id number], [place] [address]- 0746 Apr, [facility] [place] [facility] [address] [id number], [place] [address]- 6541 Apr, [facility] [place] [facility] [address] [id number], [place] [address]- 3363 Apr, [facility] [place] [facility] [address] [id number], [place] [address]- 6514 Mar, [facility] [place] [facility] [address] [facility] [id number], [place] [address]- 6225 Mar, [facility] [place] [facility] [address] [id number] [place] [address]- 6417 04 Mar, 2014 [facility] [address] [id number] [place] [address]- 7200 Mar, [facility] [place] [facility] [address] [id number] [place] [address]- 9073 Mar, [facility] [place] [facility] [address] [id number] [place] [address]- 3115 Mar, [facility] [place] [facility] [address] [id number] [place] [address]- 2446 Mar, [facility] [place] [facility] [address] [id number] [place] [address]- 0556 Mar, [facility] [place] [facility] [address] [id number] [place] [address]- 4606 Feb, [facility] [place] [facility] [address] [id number] [place] [address]- 8951 Feb, [facility] [place] [facility] [address] [id number] [place] [address]- 0888 Feb, [facility] [place] [facility] [address] [id number] [place] [address]- 8692 Feb, [facility] [place] [facility] [address] [id number] [place] [address]- 8574 Feb, [facility] [address] [address] Feb, [facility] [place] [facility] [address] [id number], [place] [address]- 6615 Feb, [facility] [place] [facility] [address] [id number] [place] [address]- 2054 Feb, [facility] [place] [facility] [address] [id number], [place] [address]- 4654 Feb, [facility] [place] [facility] [address] [id number], [place] [address]- 8206 Feb, [facility] [place] [facility] [address] [id number] [place] [address]- 8589 30 Jan, 2013 [facility] [place] [facility] [address] [id number] [place] [address]- 9874 30 Jan, 2013 [facility] [place] [facility] [address] [id number] [place] 2081 17 Jan, 2013 [facility] [place] [facility] [address] [id number] [place] [address]- 0196 17 Jan, 2013 [facility] [place] [facility] [address] [id number] [place] [address]- 1745 16 Jan, 2013 [facility] [place] [facility] [address] [id number] [place] [address]- 8703 16 Jan, 2013 [facility] [place] [facility] [address] [id number] [place] [address]- 0185 15 Jan, 2013 [facility] [place] [facility] [address] [id number] [place] [address]- 4697 Jan, 2013 [facility] [place] [facility] [address] [id number] [place] [address]- 1177 Jan, 2013 [facility] [place] [facility] [address] [id number] [place] [address]- 3146 Jan, 2013 [facility] [place] [facility] [address] [id number] [place] [address]- 8810 Jan, 2013 [facility] [place] [facility] [address] [id number] [place] [address]- 9535 Jan, 2013 [facility] [place] [facility] [address] [id number] [place] [address] Jan, 2013 [facility] [place] [facility] [address] [id number] [place] [address] 08 Jan, 2013 [facility] [place] [facility] [address] [id number] [place] [address] 08 Jan, 2013 [facility] [place] [facility] [address] [id number] [place] [address] Jan, 2013 [facility] [place] [facility] [address] [id number] [place] [address] 07 Jan, 2013 [facility] [place] [facility] [address] [id number] [place] [address] 19 Sep, 2013 [facility] [place] [facility] [address] [id number] [place] [address] 19 Sep, 2013 [facility] [place] [facility] [address] [id number] [place] [address] 11 Sep, 2013 [facility] [place] [facility] [address] [id number] [place] [address] 11 Sep, 2013 [facility] [place] [facility] [address] [id number] [place] [address] 09 Sep, 2013 [facility] [place] [facility] [address] [id number] [place] [address] 09 Sep, 2013 [facility] [place] [facility] [address] [id number] [place] [address] 08 Sep, 2013 [facility] [place] [facility] [address] [id number] [place] [address] 08 Sep, 2013 [facility] [place] [facility] [address] [id number], [place] [address] 08 Sep, 2013 [facility] [place] [facility] [address] [id number], [place] [address] 08 Sep, 2013 [facility] [place] [facility] [address] [id number], [place] [address] 05 Sep, 2013 [facility] [place] [facility] [address] [id number], [place] [address] 05 Sep, 2013 [facility] [place] [facility] [address] [id number] [place] [address] 02 Sep, 2013 [facility] [place] [facility] [address] [id number], [place] [address] 02 Sep, 2013 [facility] [place] [facility] [address] [id number], [place] [address] 76[address] Nov, [facility] [place] [facility] [address] [id number] [place] [address]- 4262 Nov, [facility] [place] [facility] [address] [id number] [place] [address] 3858 Nov, [facility] [place] [facility] [address] [id number] [place] [address] 2680 Nov, [facility] [place] [facility] [address] [id number] [place] [address]- 7660 Nov, [facility] [place] [facility] [address] [id number] [place] [address]- 3006 Nov, [facility] [place] [facility] [address] [id number] [place] [address]- 8017 Nov, [facility] [place] [facility] [address] [id number] [place] [address]- 9335 Nov, [facility] [place] [facility] [address] [id number] [place] [address]- 0184 Nov, [facility] [place] [facility] [address] [id number] [place] [address]- 8770 Nov, [facility] [place] [facility] [address] [id number] [place] [address]- 4652 Nov, [facility] [place] [facility] [address] [id number] [place] [address]- 0007 Nov, [facility] [place] [facility] [address] [id number] [place] [address]- 8801 Nov, [facility] [place] [facility] [address] [id number] [place] [address]- 9623 Nov, [facility] [place] [facility] [address] [id number] [place] [address]- 8104 Oct, [facility] [place] [facility] [address] [id number] [place] [address]- 2004 Oct, [facility] [place] [facility] [address] [id number] [place] [address]- 7793 Oct, [facility] [place] [facility] [address] [id number] [place] [address]- 9442 Oct, [facility] [place] [facility] [address] [id number] [place] [address]- 9696 Oct, [facility] [place] [facility] [address] [id number] [place] [address]- 5976 Oct, [facility] [place] [facility] [address] [id number] [place] [address]- 5294 Oct, [facility] [place] [facility] [address] [id number] [place] [address]- 8768 Oct, [facility] [place] [facility] [address] [id number] [place] [address]- 5297 Oct, [facility] [place] [facility] [address] [id number] [place] [address]- 5044 Oct, [facility] [place] [facility] [address] [id number] [place] [address]- 3196 Oct, [facility] [place] [facility] [address] [id number] [place] [address]- 0890 Oct, [facility] [place] [facility] [address] [id number] [place] [address]- 9169 Oct, [facility] [place] [facility] [address] [id number] [facility] [place] [address]- 7384 Oct, [facility] [place] [facility] [address] [id number] [facility] [place] [address]- 5618 Oct, [facility] [place] [facility] [address] [id number] [place] [address]- 7306 Oct, [facility] [place] [facility] [address] [id number] [place] [address]- 1996 Oct, [facility] [place] [facility] [address] [id number] [place] [address]- 7941 Oct, [facility] [place] [facility] [address] [id number] [place] [address]- 7352 Oct, [facility] [place] [facility] [address] [id number] [place] [address]- 8442 Oct, [facility] [place] [facility] [address] [id number] [place] [address]- 0288 Sep, [facility] [place] [facility] [address] [id number] [place] [address]- 0687 Sep, [facility] [place] [facility] [address] [id number] [place] [address]- 4662 Sep, [facility] [place] [facility] [address] [id number] [place] [address]- 7302 Sep, [facility] [place] [facility] [address] [id number] [place] [address]- 1218 Sep, [facility] [place] [facility] [address] [id number] [place] [address]- 3179 Sep, [facility] [place] [facility] [address] [id number] [place] [address]- 3833 August, [facility] [place] [facility] [address] [id number] [place] [address]- 7488 August, [facility] [place] [facility] [address] [id number] [place] [address]- 0452 Jul, [facility] [place] [facility] [address] [id number] [place] [address]- 0986 Jul, [facility] [place] [facility] [address] [id number] [place] [address]- 9709 Jul, [facility] [place] [facility] [address] [id number] [place] [address]- 4846 Jul, [facility] [place] [facility] [address] [id number] [place] [address]- 0504 Jul, [facility] [place] [facility] [address] [id number] [place] [address]- 3581 07 Jul, 2013 [facility] [place] [facility] [address] [id number] [place] [address] Jul, [facility] [place] [facility] [address] [id number] [place] [address] Jul, [facility] [place] [facility] [address] [id number] [place] [address]- 7333 Jun, [facility] [place] [facility] [address] [id number] [place] [address]- 2171 Jun, [facility] [place] [facility] [address] [id number] [place] [address]366 Jun, [facility] [place] [facility] [address] [facility] [id number] [place] [address]- 2271 Jun, [facility] [place] [facility] [address] [facility] [id number] [place] [address]- 4444 Jun, [facility] [place] [facility] [address] [id number] [place] [address]- 7615 May, [facility] [place] [facility] [address] [facility] [id number] [place] [address]- 5785 May, [facility] [place] [facility] [address] [facility] [id number] [place] [address]- 8485 May, [facility] [place] [facility] [address] [facility] [id number] [place] [address]- 1745 May, [facility] [place] [facility] [address] [facility] [id number] [place] [address]- 1394 May, [facility] [place] [facility] [address] [id number] [place] [address]- 4476 May, [facility] [place] [facility] [address] [facility] [id number] [place] [address]756 May, [facility] [place] [facility] [address] [facility] [id number] [place] [address]- 6611 May, [facility] [place] [facility] [address] [id number] [place] [address]- 0846 May, [facility] [place] [facility] [address] [id number] [place] [address]- 3476 May, [facility] [place] [facility] [address] [facility] [id number] [place] [address]- 3686 May, [facility] [place] [facility] [address] [id number] [place] [address]- 3478 Apr, [facility] [place] [facility] [address] [id number] [place] [address]- 6383 Apr, [facility] [place] [facility] [address] [id number] [place] [address]- 1888 Mar, [facility] [place] [facility] [address] [id number] [place] [address]- 3972 Mar, [facility] [place] [facility] [address] [id number] [place] [address]- 4085 Mar, [facility] [place] [facility] [address] [id number] [place] [address]- 8698 Mar, [facility] [place] [facility] [address] [facility] [id number] [place] [address]- 4698 Mar, [facility] [place] [facility] [address] [facility] [id number], [place] [address]- 1079 Jan, [facility] [place] [facility] [address] [id number], [place] [address]- 5818 24 Jan, 2013 [facility] [place] [facility] [address] [id number] [place] [address]- 7617 Jan, [facility] [place] [facility] [address] [facility] [id number] [place] [address]- 6243 Jan, [facility] [place] [facility] [address] [facility] [id number] [place] [address]- 1768 Jan, [facility] [place] [facility] [address] [id number] [place] [address]- 9249 Jan, [facility] [address] [id number] [place] [address]- 2808 Jan, [facility] [place] [facility] [address] [id number] [place] [address]- 2546 Jan, [facility] [place] [facility] [address] [id number] [place] [address]- 6003 Jan, [facility] [place] [facility] [address] [id number] [place] [address] 2542 Jan, [facility] [place] [facility] [address] [id number] [place] [address]- 5794 Dec, [facility] [place] [facility] [address] [id number] [place] [address]- 9814 Oct, [facility] [place] [facility] [address] [id number] [place] [address]- 2330 Oct, [facility] [address] [id number] [place] [address]- 5681 Oct, [facility] [place] [facility] [address] [id number] [place] [address]- 8073 Oct, [facility] [address] [id number] [place] [address]- 8040 Oct, [facility] [place] [facility] [address] [id number] [place] [address]- 8386 Oct, [facility] [address] [id number] [place] [address]- 9310 Sep, [facility] [place] [facility] [address] [id number] [place] [address]- 0150 August, [facility] [place] [facility] [address] [id number] [place] [address]- 6676 August, [facility] [place] [facility] [address] [id number] [place] [address]- 2598 August, [facility] [address] [id number] [place] [address]- 1686 August, [facility] [address] [id number] [place] [address]- 6016 August, [facility] [address] [id number] [place] [address]- 9276 May, [facility] [address] [id number] [place] [address]- 6746 Apr, [facility] [address] [id number] [place] [address]- 7976 Apr, [facility] [address] [id number] [place] [address]- 2546 Apr, [facility] [address] [id number] [place] [address]- 2546 Apr, [facility] [address] [facility] [id number] [place] [address]- 1046 Apr, [facility] [address] [place] [id number] Mar, [facility] [address] [id number] [place] [address]- 8886 Mar, [facility] [address] [id number] [place] [address]- 9066 Mar, [facility] [address] [id number] [place] [address]- 2546 Mar, [facility] [address] [id number] [place] [address]- 9886 17 Mar, 2012 [facility] [address] [id number] [place] [address]- 1586 17 Mar, 2012 [facility] [address] [id number] [place] [address]- 2546 13 Mar, 2012 [facility] [address] [id number] [place] [address]- 1863 13 Mar, 2012 [facility] [place] [facility] [address] [id number] [place] [address]- 4789 13 Mar, 2012 [facility] [place] [facility] [address] [id number] [place] [address]- 0416 13 Mar, 2012 [facility] [place] [facility] [address] [facility] [id number] [place] 4206 12 Mar, 2012 [facility] [place] [facility] [address] [id number] [place] 3423 Mar, [facility] [place] [facility] [address] [id number] [place] [address]- 0646 Mar, [facility] [place] [facility] [address] [id number] [place] [address]- 5396 Mar, [facility] [place] [facility] [address] [facility] [id number] [place] [address]- 0451 Mar, [facility] [place] [facility] [address] [id number] [place] [address]- 5006 Mar, [facility] [place] [facility] [address] [id number] [place] [address]- 1140 Mar, [facility] [place] [facility] [address] [id number] [place] [address]- 9789 Mar, [facility] [place] [facility] [address] [id number], [place] [address]- 8070 Mar, [facility] [place] [facility] [address] [id number], [place] [address]- 5720 05 Mar, 2012 [facility] [place] [facility] [address] [id number] [place] [address]- 4312 Feb, [facility] [place] [facility] [address] [id number] [place] [address]- 4931 Feb, [facility] [place] [facility] [address] [facility] [id number] [place] [address]- 3643 Feb, [facility] [place] [facility] [address] [id number] [place] [address]- 6459 Feb, [facility] [place] [facility] [address] [id number] [place] [address]- 1938 Jan, [facility] [place] [facility] [address] [id number] [place] [address]- 1799 Jan, [facility] [place] [facility] [address] [id number] [place] [address]- 4518 Jan, [facility] [place] [facility] [address] [id number] [place] [address]- 7443 Jan, [facility] [place] [facility] [address] [id number] [place] [address]- 1215 Jan, [facility] [place] [facility] [address] [id number] [place] [address]- 5291 Jan, [facility] [place] [facility] [address] [id number] [place] [address]- 7277 Jan, [facility] [place] [facility] [address] [id number] [place] [address]- 3606 Jan, [facility] [place] [facility] [address] [id number] [place] [address]- 7570 Jan, [facility] [place] [facility] [address] [id number] [place] [address]- 2225 27 Dec, 2011 [facility] [place] [facility] [address] [id number] [place] [address] 2546 14 Dec, 2011 [facility] [place] [facility] [address] [id number] [place] [address]- 8958 12 Dec, 2011 [facility] [place] [facility] [address] [id number] [place] [address]- 1118 06 Dec, 2011 [facility] [place] [facility] [address] [id number] [place] [address]- 6236 06 Dec, 2011 [facility] [place] [facility] [address] [id number] [place] [address]- 2562 Nov, [facility] [place] [facility] [address] [id number] [place] [address]- 4987 Nov, [facility] [place] [facility] [address] [id number] [place] [address]- 3651 Nov, [facility] [place] [facility] [address] [id number] [place] [address]- 4082 Nov, [facility] [place] [facility] [address] [id number] [place] [address]- 6753 Nov, [facility] [place] [facility] [address] [id number] [place] [address]- 5520 Nov, [facility] [place] [facility] [address] [id number] [place] [address]- 9284 Nov, [facility] [place] [facility] [address] [id number] [place] [address]- 4708 Nov, [facility] [place] [facility] [address] [id number] [place] [address]- 6800 Nov, [facility] [place] [facility] [address] [id number] [place] [address]- 0641 Oct, [facility] [place] [facility] [address] [id number] [place] [address]- 6952 Oct, [facility] [place] [facility] [address] [id number] [place] [address]- 9394 Sep, [facility] [place] [facility] [address] [id number] [place] [address]- 3147 Sep, [facility] [place] [facility] [address] [id number] [place] [address]- 8554 Sep, [facility] [place] [facility] [address] [id number] [place] [address]- 9083 August, [facility] [place] [facility] [address] [id number] [place] [address]- 4260 Jul, [facility] [place] [facility] [address] [id number] [place] [address]- 5654 27 Jul, 2011 [facility] [place] [facility] [address] [id number] [place] [address]- 8525 27 Jul, 2011 [facility] [place] [facility] [address] [id number] [place] 4066 18 Jul, 2011 [facility] [place] [facility] [address] [id number] [place] [address]- 3206 16 Jul, 2011 [facility] [place] [facility] [address] [id number] [place] [address]- 7451 16 Jul, 2011 [facility] [place] [facility] [address] [id number] [place] [address]- 6920 16 Jul, 2011 [facility] [place] [facility] [address] [id number] [place] [address]- 7856 14 Jul, 2011 [facility] [place] [facility] [address] [id number] [place] [address]- 0082 12 Jul, 2011 [facility] [place] [facility] [address] [id number] [place] [address]- 4255 19 Jun, 2011 [facility] [place] [facility] [address] [id number] [place] [address]- 3816 18 Jun, 2011 [facility] [place] [facility] [address] [id number] [place] [address]- 4375 15 Jun, 2011 [facility] [place] [facility] [address] [id number] [place] [address]- 2881 Jun, [facility] [place] [facility] [address] [id number] [place] [address]- 7142 Jun, [facility] [place] [facility] [address] [id number] [place] [address]- 0019 Jun, [facility] [place] [facility] [address] [id number] [place] [address]- 6936 Jun, [facility] [place] [facility] [address] [id number] [place] [address]- 2641 Jun, [facility] [place] [facility] [address] [id number] [place] [address]- 8531 May, [facility] [address] [id number] [place] [address]- 6156 May, [facility] [place] [facility] [address] [id number] [place] [address]- 9846 May, [facility] [address] [id number] [place] [address]- 2506 Apr, [facility] [address] [id number] [place] [address] 2544 Apr, [facility] [address] [id number] [place] [address]- 1082 Apr, [facility] [address] [id number] [place] [address]- 7255 Mar, [facility] [address] [id number] [place] [address]- 6386 Mar, [facility] [address] [id number] [place] [address]- 0777 15 Mar, 2011 [facility] [address] [id number] [place] [address]- 1761 Mar, [facility] [address] [id number] [place] [address]- 7001 Mar, [facility] [address] [id number] [place] [address]- 5892 Mar, [facility] [place] [facility] [address] [id number] [place] [address] 2546 Mar, [facility] [place] [facility] [address] [id number] [place] [address]- 4826 Mar, [facility] [place] [facility] [address] [id number] [place] [address] 2546 08 Mar, 2011 [facility] [place] [facility] [address] [id number] [place] [address] Mar, [facility] [place] [facility] [address] [id number] [place] [address] Mar, [facility] [place] [facility] [address] [id number] [place] [address] Mar, [facility] [place] [facility] [address] [id number] [place] [address] Mar, [facility] [place] [facility] [address] [id number] [place] [address] Mar, [facility] [place] [facility] [address] [id number] [place] [address] Feb, [facility] [place] [facility] [address] [id number] [place] [address] Feb, [facility] [place] [facility] [address] [id number] [place] [address] Feb, [facility] [place] [facility] [address] [id number] [place] [address] Jan, [facility] [place] [facility] [address] [id number] [place] [address] Jan, [facility] [place] [facility] [address] [id number], [place] [address] Oct, [facility] [place] [facility] [address] [id number], [place] [address] Sep, [facility] [place] [facility] [address] [id number], [place] [address] Mar, [facility] [place] [facility] [address] [id number] [place] [address] Mar, [facility] [place] [facility] [address] [id number], [place] [address] Feb, [facility] [place] [facility] [address] [id number] [place] [address] Feb, [facility] [place] [facility] [address] [id number], [place] [address] Jan, [facility] [address] Jan, [facility] [address], [place] [address] Mar, [facility] [address] [address] Feb, [facility] [address] [address] Feb, [facility] [address] [address] Feb, [facility] [address] [address] Feb, [facility] [address], [place] [address] Jan, [facility] [address] [id number], [place] [address] Dec, [facility] [address] [id number], [place] [address] Nov, IMMUNIZATIONS No Known Immunizations SOCIAL HISTORY Never Assessed REASON FOR VISIT Controlled Med Refill 02/25/18 PLAN OF CARE VITAL SIGNS MEDICATIONS Medication Instructions Dosage Frequency Start Date End Date Duration Status Klonopin 0.5 MG Orally Twice a day 2 tablets in AM and 1 in PM 12h August, 28 days Active RESULTS No Results PROCEDURES No Known procedures INSTRUCTIONS MEDICATIONS ADMINISTERED No Known Medications MEDICAL (GENERAL) HISTORY Type Description Date Medical History 12/2017 Osteomyelitis of right 2nd toe Surgical History amputation of right great toe Surgical History amputation of left 4th toe Hospitalization [facility] March 2015 Hospitalization History [facility]- [facility], fever 10/26/17
--- OUTSIDE RECORDS SUMMARY | 2018-03-11 13:08 | XMS REPORT ---
Author Author STEPHANIE CHRISTIANSEN [facility] Address [address] [place] [address] Care Team Providers Care Supervisor Hanging And Trimming Name Role Phone STEPHANIE CHRISTIANSEN Unavailable PROBLEMS Type Condition ICD9-CM Code TCJ43-PX Code Onset Dates Condition Status SNOMED Code Problem Hyperlipidemia, unspecified hyperlipidemia type E78.5 Active 84378713 Problem Abnormal carotid ultrasound R93.8 Active 040485615 Problem Type 2 diabetes mellitus with complication E11.8 Active 08783156 Problem Positive TB test R76.11 Active 824086611 Problem Vascular dementia with behavior disturbance F01.51 Active 096388668 Problem Recurrent major depressive disorder, remission status unspecified F33.9 Active 25336538 Problem Pain R52 Active 61993825 Problem Generalized anxiety disorder F41.1 Active 92419453 Problem PVD (peripheral vascular disease) I73.9 Active 950601258 Problem Unstable angina pectoris I20.0 Active 7097491 Problem Other chronic osteomyelitis of left foot M86.672 Active 139049163 Problem Cerebrovascular accident (CVA) due to other mechanism I63.8 Active 135769798 Problem Peripheral vascular disease due to secondary diabetes E13.51 Active 2877228 Problem Nonintractable epilepsy without status epilepticus, unspecified epilepsy type G40.909 Active 136649892 Problem Pseudobulbar affect F48.2 Active 37845030 Problem Anxiety F41.9 Active 85379796 Problem Nicotine dependence, unspecified, uncomplicated F17.200 Active 376091328 Problem Vascular dementia F01.50 Active 603974452 Problem Gastroesophageal reflux disease without esophagitis K21.9 Active 770765362 Problem Essential hypertension I10 Active 05887123 Problem Pulmonary emphysema, unspecified emphysema type J43.9 Active 97587694 Problem Coronary artery disease involving [place] coronary artery of [place] heart without angina pectoris I25.10 Active 1839588397734 Problem Depression F32.9 Active 34976960 Problem Long-term insulin use Z79.4 Active 099622009 Problem Acquired hypothyroidism E03.9 Active 446176012 Problem Neuropathy G62.9 Active 084648663 ALLERGIES Substance Reaction Event Type Date Status Tylenol Unknown Drug Allergy Feb, Active Hydrocodone Violated Narcotics Contract (buying drugs off the street) & failed UDS Non Drug Allergy Feb, Active Benzodiazepines Violated Narcotics Contract (Buying drugs off the street) & failed UDS Non Drug Allergy Feb, Active ENCOUNTERS Encounter Location Date Diagnosis [place] [address] [address] Feb, Generalized anxiety disorder F41.1 [facility] [address] [place] [id number] Feb, Other acute osteomyelitis of right foot M86.171 ; Type 2 diabetes mellitus with complication E11.8 ; Hyperglycemia R73.9 and Unstable angina pectoris I20.0 [place] [address] [address] Feb, [place] [address] [place] [id number] [place] [address] 27409- 6514 Jan, Generalized anxiety disorder F41.1 [place] [address] [address] Jan, Generalized anxiety disorder F41.1 [facility] [address] [place] [id number] Dec, Crush injury T14.8XXA [place] [address] [place] [id number] [place] [address] 79170- 5768 14 Dec, 2017 Generalized anxiety disorder F41.1 [facility] [address] [place] [id number] [place] [address] 17235- 0761 14 Dec, 2017 [facility] [address] [place] [id number] [place] [address] 72969- 4473 04 Dec, 2017 [facility] [address] [place] [id number] [place] [address] 64564- 1136 Nov, Generalized anxiety disorder F41.1 [place] [address] [place] [id number] [place] [address] 57600- 9651 Oct, Generalized anxiety disorder F41.1 [facility] [address] [place] [address] 11672- 0368 Oct, Generalized anxiety disorder F41.1 [facility] [address] [place] [id number] Oct, Sepsis, due to unspecified organism A41.9 ; Generalized anxiety disorder F41.1 ; Pain R52 and Depression F32.9 [place] [address] [place] [id number] [place] [address] 60227- 6281 Oct, [place] [address] [place] [id number] [place] [address] 70759- 6319 Oct, [facility] [address] [place] [id number] [place] [address] 93747- 4890 Sep, Generalized anxiety disorder F41.1 [place] [address] [place] [id number] [place] [address] 66800- 6464 Sep, [place] [address] [place] [id number] [place] [address] 90995- 5477 Sep, Type 2 diabetes mellitus with complication E11.8 [place] [address] [place] [id number] [place] [address] 43055- 4802 August, Generalized anxiety disorder F41.1 [place] [address] [place] [id number] [place] [address] 08179- 6798 August, [facility] [address] [place] [id number] August, Type 2 diabetes mellitus with complication E11.8 ; Vascular dementia with behavior disturbance F01.51 ; Long-term insulin use Z79.4 and Nicotine dependence, unspecified, uncomplicated F17.200 [place] [address] [place] [address] 97125- 4477 August, Generalized anxiety disorder F41.1 [place] [address] [place] [address] 22452- 6973 Jul, Generalized anxiety disorder F41.1 [facility] [address] [id number] [id number] Jun, Generalized anxiety disorder F41.1 [facility] [address] [id number] [id number] Jun, [facility] [id number] [id number] May, [facility] [address]00565100[place] [address] May, [facility] [address] [id number] [id number] May, Generalized anxiety disorder F41.1 [facility] [address] [place] [id number] [address] Apr, [facility] [address] [place] [id number] Apr, Other chronic osteomyelitis of left foot M86.672 ; Type 2 diabetes mellitus with complication E11.8 ; Vascular dementia F01.50 ; Long-term insulin use Z79.4 ; PVD (peripheral vascular disease) I73.9 and Nicotine abuse 305.1 [facility] [address] [place] [id number] [address]- 2768 Apr, [facility] [id number] [id number] Apr, [facility] [address] [place] [id number] [address] Apr, Pain R52 and Generalized anxiety disorder F41.1 [facility] [address] [facility] [id number] [place] [address] Mar, [facility] [address]00565100[place] [address] Mar, Pain R52 and Generalized anxiety disorder F41.1 [facility] [address] [place] [place] [id number] Feb, Depression F32.9 ; Type 2 diabetes mellitus with complication E11.8 and Nicotine dependence, unspecified, uncomplicated F17.200 [facility] [address] [place] [id number] [place] [address] 68707- 5004 Feb, Generalized anxiety disorder F41.1 and Pain R52 [facility] [address] [place] [id number] [place] [address] 32838- 6319 Feb, [facility] [address] [place] [id number] [place] [address] 66880- 9035 Jan, [facility] [address] [place] [id number] [place] [address] 15247- 2532 Jan, Generalized anxiety disorder F41.1 and Pain R52 [place] [address] 37787- 2395 Jan, [facility] [address] [id number] Dec, Generalized anxiety disorder F41.1 and Pain R52 [facility] [address] [place] [id number] Dec, Vascular dementia F01.50 ; Pain of left leg M79.605 ; Pain in right leg M79.604 and Type 2 diabetes mellitus with complication E11.8 [place] [address] [place] [id number] [place] [address] 13506- 7203 Dec, Pain R52 [place] [address] [place] [id number] [place] [address] 49564- 6117 Dec, [facility] [address] [place] [id number] [place] [address] 42756- 0542 Nov, [facility] [address] [place] [id number] [place] [address] 73879- 8508 Nov, Pain R52 and Generalized anxiety disorder F41.1 [facility] [address] [place] [id number] Nov, Depression F32.9 ; Vascular dementia with behavior disturbance F01.51 and Anxiety F41.9 [facility] [address] [place] [id number] [place] [address] 07428- 2546 Nov, Pain R52 and Generalized anxiety disorder F41.1 [facility] [address] [facility] [id number] [place] [address] 9014 Oct, Generalized anxiety disorder F41.1 [facility] [address] [facility] [id number] [place] [address]- 2716 Oct, Pain R52 [facility] [address] [place] [id number] [place] [address] 47651- 4027 Sep, [facility] [address] [place] [id number] Sep, Generalized anxiety disorder F41.1 [facility] [address] [place] [address] 60034- 8633 Sep, Pain R52 [facility] [address] [place] [id number] [place] [address] 33653- 9778 Sep, Generalized anxiety disorder F41.1 [facility] [address]00565100[place] [address]- 7095 August, [facility] [address] [place] [id number] [address]- 3[address] August, [facility] [address] [place] [id number] [address]- 0787 August, Pain R52 [facility] [address]65100[place] [address]- 3222 August, Generalized anxiety disorder F41.1 [facility] [address] [place] [id number] [address] August, Generalized anxiety disorder F41.1 [facility] [address] [place] [id number] [address]- 8174 Jul, Pain R52 [facility] [address] [facility] [id number] [address]- 6446 Jul, [facility] [address] [place] [id number] [address] Jul, [facility] [address] [place] [id number] [place] [address] 17157- 2831 Jun, [facility] [address] [id number] Jun, Depression F32.9 [facility] [address] [place] [id number] [place] [address] 46806- 6502 Jun, Pain R52 [facility] [address] 56498- 1113 Jun, [facility] [address] [place] [id number] Jun, Vascular dementia F01.50 and Depression F32.9 [facility] [address] [place] [id number] [place] [address] 53594- 8918 May, Pain R52 [facility] [address] 95391- 2393 15 May, 2016 [facility] [address] [place] [id number] [place] [address] 01085- 6239 May, Pseudobulbar affect F48.2 [facility] [address] [place] [id number] [place] [address] 87314- 0979 09 May, 2016 [facility] [address] [place] [id number] [place] [address] 90667- 5427 May, PVD (peripheral vascular disease) I73.9 [facility] [address] [place] [id number] [place] [address] 28134- 3043 08 May, 2016 Vascular dementia with behavior disturbance F01.51 [facility] [address] [place] [id number] [place] [address] 55966- 1097 May, Vascular dementia with behavior disturbance F01.51 [facility] [address] [place] [id number] [place] [address] 10444- 4962 Apr, [facility] [address] 96067- 7667 Apr, Pain R52 [facility] [address] [place] [id number] Apr, Generalized anxiety disorder F41.1 ; PVD (peripheral vascular disease) I73.9 and Type 2 diabetes mellitus with complication E11.8 [facility] [address]00565100[place] [address]- 1193 Apr, Vascular dementia with behavior disturbance F01.51 [facility] [address] [place] [id number] [place] [address] 38451- 4127 Apr, [facility] [address] [place] [id number] [place] [address] 74586- 3433 Apr, Vascular dementia with behavior disturbance F01.51 [facility] [address] [place] [id number] [place] [address] 00443- 8563 Apr, [facility] [address] [place] [id number] [place] [address] [id number] Mar, [facility] [address] [place] [id number] [place] [address] 30375- 2876 Mar, Type 2 diabetes mellitus with complication E11.8 ; Vascular dementia with behavior disturbance F01.51 and Depression F32.9 [facility] [address]00565100[place] [address]- 1670 Mar, [facility] [address] [place] [id number] [place] [address] 77940- 7778 Feb, [facility] [address] [place] [id number] [place] [address] 26013- 0369 Feb, Viral illness B34.9 [facility] [address] [place] [id number] [place] [address] 98036- 4002 Jan, Diabetes 250.00 [facility] [address] [place] [id number] [place] [address] 13076- 0333 Jan, [facility] [address] [place] [id number] [place] [address] 54870- 5233 Jan, [facility] [address] [facility] [id number] [address]- 2144 Jan, [facility] [address] [place] [id number] Jan, Vascular dementia with behavior disturbance F01.51 and Type 2 diabetes mellitus with complication E11.8 [facility] [address]00565100[place] [address]- 1516 Jan, Pain R52 [facility] [address] [facility] [id number] [address]- 8576 Jan, Pain R52 [facility] [address] [place] [id number] [place] [address] 51313- 5607 Dec, [facility] [address]00565100[place] [address]- 6358 Nov, [facility] [address] [place] [id number] Nov, Type 2 diabetes mellitus with complication E11.8 [facility] [address]00565100[place] [address]- 9318 Nov, [facility] [address]00565100[place] [address]- 9079 Oct, [facility] [address]00565100[place] [address]- 2481 Oct, [facility] [address]00565100[place] [address]- 6192 Oct, Vascular dementia with behavior disturbance F01.51 and Type 2 diabetes mellitus with complication E11.8 [facility] [address]00565100[place] [address]- 8848 August, Type 2 diabetes mellitus with complication E11.8 and Vascular dementia with behavior disturbance F01.51 [facility] [address]00565100[place] [address]- 7923 August, Vascular dementia F01.50 [facility] [address]00565100[place] [address]- 2328 August, Vascular dementia with behavior disturbance F01.51 [facility] [address]00565100[place] [address]- 4202 Jul, Vascular dementia with behavior disturbance F01.51 [facility] [address]00565100[place] [address]- 8723 Jun, Vascular dementia F01.50 [facility] [address]00565100[place] [address]- 6709 Jun, Type 2 diabetes mellitus with complication E11.8 ; Long- term insulin use Z79.4 and Vascular dementia with behavior disturbance F01.51 [place] [address]00565100[place] [address]- 9681 Jun, Vascular dementia with behavior disturbance F01.51 [place] [address]00565100[place] [address]- 4231 Jun, Vascular dementia F01.50 [facility] [address]00565100[place] [address]- 7222 Apr, [place] [address]00565100[place] [address]- 7809 Apr, [place] [address]00565100[place] [address]- 5321 Apr, [place] [address]00565100[place] [address]- 1065 Apr, Type 2 diabetes mellitus with complication E11.8 ; Depression F32.9 and Long-term insulin use Z79.4 [place] [address] [place] [id number] [address]- 1795 Mar, [facility] [address] [place] [id number] Mar, Depression F32.9 ; Type 2 diabetes mellitus with complication E11.8 and Long-term insulin use Z79.4 [place] [address] [place] [id number] [address]- 7194 Feb, [facility] [address]00565100[place] [address]- 0690 Feb, Hyperthyroidism E05.90 [facility] [address] [place] [address] 66937- 2582 Feb, Hyperthyroidism E05.90 [facility] [address] [place] [address] 32274- 2626 Feb, [facility] [address] [place] [address] 33894- 1567 Jan, [facility] [address] [place] [address] 35283- 1224 Dec, Nicotine addiction 305.1 [facility] [address] [place] [id number] [place] [address] 76218- 3061 Oct, Nicotine abuse 305.1 [facility] [address] [place] [id number] [place] [address] 79756- 0307 Oct, [facility] [address] [place] [address] 75070- 7782 August, [facility] [address] [place] [id number] August, History of drug abuse 305.93 and Diabetes 250.00 [facility] [address]00565100[place] [address]- 3523 Jul, [facility] [address]00565100[place] [address]- 8811 Jul, [facility] [address]00565100[place] [address]- 1865 Jun, [facility] [address] [place] [id number] [place] [address] 09614- 7369 Jun, [facility] [address]00565100[place] [address]- 4162 Jun, [facility] [address] [place] [address] 39560- 6088 Jun, [facility] [address] [id number] [place] [address]- 9318 Jun, [facility] [address] [id number] [place] [address]- 6308 Jun, [facility] [address] [id number] [place] [address]- 4404 May, [facility] [place] [facility] [address] [id number] [place] [address]- 6928 May, [facility] [address] [id number] [place] [address]- 0910 May, [facility] [address] [id number] [place] [address]- 3944 May, [facility] [address] [id number] [address]- 3208 May, [facility] [address] [id number] [address]- 1109 Apr, [facility] [address] [id number] [place] [address]- 0714 Apr, [facility] [address] [place] [id number] Apr, [facility] [address] [id number] [address]- 2966 Apr, [facility] [place] [facility] [address] [id number] [place] [address]- 6521 Apr, [facility] [place] [facility] [address] [id number] [place] [address]- 9694 Apr, [facility] [place] [facility] [address] [id number] [address]- 4326 Apr, [facility] [place] [facility] [address] [facility] [id number] [place] [address]- 4981 Apr, [facility] [place] [facility] [address] [id number] [place] [address]- 0059 Mar, [facility] [address] [id number] [place] [address]- 7704 Mar, [facility] [place] [facility] [address] [id number] [place] [address]- 8162 Mar, [facility] [address] [id number] [place] [address]- 1638 Mar, [facility] [place] [facility] [address] [id number] [place] [address]- 8427 Mar, [facility] [address] [id number] [place] [address]- 9294 Mar, [facility] [address] [id number] [place] [address]- 4479 Mar, [facility] [address] [id number] [place] [address]- 7944 Mar, [facility] [address] [id number] [place] [address]- 4150 Feb, [facility] [address] [id number] [place] [address]- 1472 Feb, [facility] [address] [id number] [place] [address]- 6661 Feb, [facility] [place] [facility] [address] [id number] [place] [address]- 0222 Feb, [facility] [address] [id number] [place] [address]- 0375 Feb, [facility] [address] [place] [id number] Feb, [facility] [place] [facility] [address] [id number] [place] [address]- 1287 Feb, [facility] [place] [facility] [address] [id number] [place] [address]- 5695 Feb, [facility] [place] [facility] [address] [id number] [place] [address]- 8606 Feb, [facility] [place] [facility] [address] [id number] [place] [address]- 1087 Feb, [facility] [place] [facility] [address] [id number] [place] [address]- 1062 Jan, [facility] [place] [facility] [address] [id number] [place] [address]- 5799 30 Jan, 2014 [facility] [place] [facility] [address] [id number] [place] [address]- 6147 Jan, [facility] [place] [facility] [address] [id number] [place] [address]- 5913 17 Jan, 2014 [facility] [place] [facility] [address] [id number] [place] [address]- 1654 16 Jan, 2014 [facility] [place] [facility] [address] [id number] [place] [address]- 3783 16 Jan, 2014 [facility] [place] [facility] [address] [id number] [place] [address]- 1031 15 Jan, 2014 [facility] [place] [facility] [address] [id number] [place] [address] Jan, [facility] [place] [facility] [address] [id number] [place] [address] Jan, [facility] [place] [facility] [address] [id number] [place] [address] Jan, [facility] [place] [facility] [address] [id number] [place] [address] Jan, [facility] [place] [facility] [address] [id number] [place] [address] 09 Jan, 2014 [facility] [place] [facility] [address] [id number] [place] [address] 09 Jan, 2014 [facility] [place] [facility] [address] [id number] [place] [address] 08 Jan, 2013 [facility] [place] [facility] [address] [id number] [place] [address] 08 Jan, 2013 [facility] [place] [facility] [address] [id number] [place] [address] Jan, 2013 [facility] [place] [facility] [address] [id number] [place] [address] Jan, 2013 [facility] [place] [facility] [address] [id number] [place] [address] Sep, 2013 [facility] [place] [facility] [address] [id number] [place] [address] 19 Sep, 2013 [facility] [place] [facility] [address] [id number] [place] [address] 11 Sep, 2013 [facility] [place] [facility] [address] [id number] [place] [address] Dec, 2013 [facility] [place] [facility] [address] [id number] [place] [address] 09 Sep, 2013 [facility] [place] [facility] [address] [id number] [place] [address] 09 Sep, 2013 [facility] [place] [facility] [address] [id number] [place] [address] 08 Sep, 2013 [facility] [place] [facility] [address] [id number] [address] 08 Sep, 2013 [facility] [place] [facility] [address] [id number] [place] [address] 0[address] 08 Sep, 2013 [facility] [place] [facility] [address] [id number] [place] [address] 3885 08 Sep, 2013 [facility] [place] [facility] [address] [id number] [place] [address] 05 Sep, 2013 [facility] [place] [facility] [address] [id number] [place] [address] 05 Sep, 2013 [facility] [place] [facility] [address] [id number] [place] [address]- 9882 Dec, [facility] [place] [facility] [address] [id number] [place] [address]- 9692 Dec, [facility] [place] [facility] [address] [id number] [place] [address]- 8170 Nov, [facility] [place] [facility] [address] [id number] [place] [address]- 0992 Nov, [facility] [place] [facility] [address] [id number] [place] [address]- 7740 Nov, [facility] [place] [facility] [address] [id number] [place] [address]- 0954 Nov, [facility] [place] [facility] [address] [id number] [place] [address]- 0360 Nov, [facility] [place] [facility] [address] [id number] [place] [address]- 1069 Nov, [facility] [place] [facility] [address] [id number] [place] [address]- 1640 Nov, [facility] [place] [facility] [address] [id number] [place] [address]- 1860 Nov, [facility] [place] [facility] [address] [id number] [place] [address]- 7856 Nov, [facility] [place] [facility] [address] [id number] [place] [address]- 7395 Nov, [facility] [place] [facility] [address] [id number] [place] [address]- 2551 Nov, [facility] [place] [facility] [address] [id number] [place] [address]- 4729 Nov, [facility] [place] [facility] [address] [id number] [place] [address]- 2026 Nov, [facility] [place] [facility] [address] [id number] [place] [address]- 0020 Nov, [facility] [place] [facility] [address] [id number] [place] [address]- 1915 Oct, [facility] [place] [facility] [address] [id number] [place] [address]- 0385 Oct, [facility] [place] [facility] [address] [id number] [place] [address]- 3266 Oct, [facility] [place] [facility] [address] [id number] [place] [address]- 3633 Oct, [facility] [place] [facility] [address] [id number] [place] [address]- 3108 Oct, [facility] [place] [facility] [address] [id number] [place] [address]- 3788 Oct, [facility] [place] [facility] [address] [id number] [place] [address]- 3918 Oct, [facility] [place] [facility] [address] [id number] [place] [address]- 6989 Oct, [facility] [place] [facility] [address] [id number] [place] [address]- 4353 Oct, [facility] [place] [facility] [address] [id number] [place] [address]- 7866 Oct, [facility] [place] [facility] [address] [id number] [place] [address]- 6568 Oct, [facility] [place] [facility] [address] [id number] [place] [address]- 0143 Oct, [facility] [place] [facility] [address] [id number] [place] [address]- 4773 Oct, [facility] [place] [facility] [address] [id number] [place] [address]- 3138 Oct, [facility] [place] [facility] [address] [id number] [place] [address]- 6641 Oct, [facility] [place] [facility] [address] [id number] [place] [address]- 8406 Oct, [facility] [place] [facility] [address] [id number] [place] [address]- 2287 Oct, [facility] [place] [facility] [address] [id number] [place] [address]- 8060 Oct, [facility] [place] [facility] [address] [id number] [place] [address]- 0588 Oct, [facility] [place] [facility] [address] [id number] [place] [address]- 4307 Oct, [facility] [place] [facility] [address] [id number] [place] [address]- 9342 Sep, [facility] [place] [facility] [address] [id number] [place] [address]- 9330 Sep, [facility] [place] [facility] [address] [id number] [place] [address]- 7083 Sep, [facility] [place] [facility] [address] [id number] [place] [address]- 3042 Sep, [facility] [place] [facility] [address] [id number] [place] [address]- 2123 Sep, [facility] [place] [facility] [address] [id number] [place] [address]- 9426 Sep, [facility] [place] [facility] [address] [id number] [place] [address]- 9491 August, [facility] [place] [facility] [address] [id number] [place] [address]- 8649 August, [facility] [place] [facility] [address] [id number] [place] [address]- 8365 Jul, [facility] [place] [facility] [address] [id number] [place] [address]- 0784 Jul, [facility] [place] [facility] [address] [id number] [place] [address]- 7079 Jul, [facility] [place] [facility] [address] [id number] [place] [address]- 7661 17 Jul, 2013 [facility] [place] [facility] [address] [id number] [place] [address]- 0434 Jul, [facility] [place] [facility] [address] [id number] [place] [address] Jul, [facility] [place] [facility] [address] [id number] [place] Jul, [facility] [place] [facility] [address] [id number] [place] [address]- 8290 Jul, [facility] [place] [facility] [address] [id number] [place] [address] Jun, [facility] [place] [facility] [address] [id number] [place] [address]- 8724 Jun, [facility] [place] [facility] [address] [id number] [place] [address]- 0049 Jun, [facility] [place] [facility] [address] [id number] [place] [address]- 9154 Jun, [facility] [place] [facility] [address] [id number] [place] [address]- 3732 Jun, [facility] [place] [facility] [address] [facility] [id number] [place] [address]- 6549 May, [facility] [place] [facility] [address] [id number] [place] [address]- 6138 May, [facility] [place] [facility] [address] [id number] [place] [address]- 9548 May, [facility] [place] [facility] [address] [id number] [place] [address]- 4716 May, [facility] [place] [facility] [address] [id number] [place] [address]- 8866 May, [facility] [place] [facility] [address] [id number] [place] [address]- 2175 May, [facility] [place] [facility] [address] [id number] [place] [address]- 6330 May, [facility] [place] [facility] [address] [id number] [place] 2106 May, [facility] [place] [facility] [address] [facility] [id number] [place] 7976 May, [facility] [place] [facility] [address] [id number] [place] [address]- 5149 May, [facility] [place] [facility] [address] [id number] [place] [address]- 9681 May, [facility] [place] [facility] [address] [facility] [id number] [place] [address]- 4576 Apr, [facility] [place] [facility] [address] [id number] [place] [address]- 5244 Apr, [facility] [place] [facility] [address] [facility] [id number] [place] [address]- 8039 Mar, [facility] [place] [facility] [address] [facility] [id number] [place] [address]- 0375 Mar, [facility] [place] [facility] [address] [facility] [id number] [place] [address]- 3212 Mar, [facility] [place] [facility] [address] [facility] [id number] [place] [address]- 9337 Mar, [facility] [place] [facility] [address] [facility] [id number] [place] [address]- 5457 Mar, [facility] [place] [facility] [address] [facility] [id number] [place] [address]- 7090 Jan, [facility] [place] [facility] [address] [facility] [id number] [place] [address]- 7875 Jan, [facility] [place] [facility] [address] [facility] [id number] [place] [address]- 2502 Jan, [facility] [place] [facility] [address] [id number] [place] [address]- 4361 Jan, [facility] [place] [facility] [address] [id number] [place] [address]- 4780 Jan, [facility] [place] [facility] [address] [id number] [place] [address]- 5656 Jan, [facility] [place] [facility] [address] [id number] [place] [address]- 7973 Jan, [facility] [place] [facility] [address] [id number] [place] [address]- 8997 Jan, [facility] [place] [facility] [address] [id number] [place] [address]- 3789 Jan, [facility] [place] [facility] [address] [id number] [place] [address]- 6832 Jan, [facility] [place] [facility] [address] [id number] [place] [address]- 2868 Dec, [facility] [place] [facility] [address] [id number] [place] [address]- 4842 Oct, [facility] [place] [facility] [address] [id number] [place] [address]- 7433 Oct, [facility] [place] [facility] [address] [id number] [place] [address]- 7126 Oct, [facility] [place] [facility] [address] [id number] [place] [address]- 3904 Oct, [facility] [place] [facility] [address] [id number] [place] [address]- 9142 Oct, [facility] [place] [facility] [address] [id number] [place] [address]- 8412 Oct, [facility] [place] [facility] [address] [id number] [place] [address]- 0746 Sep, [facility] [place] [facility] [address] [id number] [place] [address]- 4249 August, [facility] [place] [address] [id number] [place] [address]- 3981 August, [facility] [address] [id number] [place] [address]- 4716 August, [facility] [address] [id number] [place] [address]- 4166 August, [facility] [address] [id number] [place] [address]- 9764 August, [facility] [address] [id number] [place] [address]- 3079 May, [facility] [address] [id number] [place] [address]- 9366 Apr, [facility] [place] [address] [id number] [place] [address]- 1655 Apr, [facility] [address] [id number] [place] [address]- 4330 Apr, [facility] [place] [address] [id number] [place] [address]- 6417 Apr, [facility] [place] [address] [facility] [id number] [place] [address]- 4448 Apr, [facility] [address] [place] [id number] Mar, [facility] [place] [address] [id number] [place] [address]- 8286 Mar, [facility] [address] [id number] [place] [address]- 8710 Mar, [facility] [address] [id number] [place] [address]- 9396 Mar, [facility] [place] [address] [id number] [place] [address]- 2991 Mar, [facility] [place] [address] [id number] [place] [address]- 3963 17 Mar, 2012 [facility] [place] [facility] [address] [id number] [place] [address]- 4406 13 Mar, 2012 [facility] [place] [facility] [address] [id number] [place] [address]- 2416 13 Mar, 2012 [facility] [place] [facility] [address] [id number] [place] 13 Mar, 2012 [facility] [place] [facility] [address] [id number] [place] [address]- 2926 13 Mar, 2012 [facility] [place] [facility] [address] [id number] [place] [address]- 3416 Mar, [facility] [place] [facility] [address] [id number] [place] [address]- 8449 Mar, [facility] [place] [facility] [address] [id number] [place] [address]- 8330 Mar, [facility] [place] [facility] [address] [id number] [place] [address]- 0418 Mar, [facility] [place] [facility] [address] [id number] [place] [address]- 8713 Mar, [facility] [place] [facility] [address] [id number] [place] [address]- 0706 Mar, [facility] [place] [facility] [address] [id number] [place] [address]- 1709 Mar, [facility] [place] [facility] [address] [id number] [place] [address]- 7366 Mar, [facility] [place] [facility] [address] [id number] [place] [address]- 3316 05 Mar, 2012 [facility] [place] [facility] [address] [id number] [place] [address]- 3231 05 Mar, 2012 [facility] [place] [facility] [address] [id number] [place] [address]- 2430 Feb, [facility] [place] [facility] [address] [id number] [place] [address]- 3192 Feb, [facility] [place] [facility] [address] [id number] [place] [address]- 9253 Feb, [facility] [place] [facility] [address] [id number] [place] [address]- 1850 Feb, [facility] [place] [facility] [address] [id number] [place] [address]- 6633 Jan, [facility] [place] [facility] [address] [id number] [place] [address]- 8881 Jan, [facility] [place] [facility] [address] [id number] [place] [address]- 0305 Jan, [facility] [place] [facility] [address] [id number] [place] [address]- 2002 Jan, [facility] [place] [facility] [address] [id number] [place] [address]- 4323 Jan, [facility] [place] [facility] [address] [id number] [place] [address]- 4038 Jan, [facility] [place] [facility] [address] [id number] [place] [address]- 8984 Jan, [facility] [place] [facility] [address] [facility] [id number] [place] [address]- 4114 Jan, [facility] [place] [facility] [address] [id number] [place] [address]- 5091 Jan, [facility] [place] [facility] [address] [id number] [place] [address]- 8050 27 Dec, 2011 [facility] [place] [facility] [address] [id number] [place] [address]- 5739 14 Sep2011 [facility] [place] [facility] [address] [id number] [place] [address]- 4462 12 Dec, 2011 [facility] [place] [facility] [address] [id number] [place] 3641 Dec, [facility] [place] [facility] [address] [id number] [place] [address]- 9375 Dec, [facility] [place] [facility] [address] [id number] [place] [address]- 3124 Nov, [facility] [place] [facility] [address] [id number] [place] [address]- 7369 Nov, [facility] [place] [facility] [address] [id number] [place] [address]- 3579 Nov, [facility] [place] [facility] [address] [id number] [place] [address]- 7855 Nov, [facility] [place] [facility] [address] [id number] [place] [address]- 3140 Nov, [facility] [place] [facility] [address] [id number] [place] [address]- 6512 Nov, [facility] [place] [facility] [address] [id number] [place] [address]- 1136 Nov, [facility] [place] [facility] [address] [id number] [place] [address]- 3892 Nov, [facility] [place] [facility] [address] [id number] [place] [address]- 7705 Nov, [facility] [place] [facility] [address] [id number] [place] [address]- 8324 Oct, [facility] [place] [facility] [address] [id number] [place] [address]- 0654 Oct, [facility] [place] [facility] [address] [id number] [place] [address]- 3254 Sep, [facility] [place] [facility] [address] [id number] [place] [address]- 0760 Sep, [facility] [place] [facility] [address] [id number] [place] [address]- 5859 Sep, [facility] [place] [facility] [address] [id number] [place] [address]- 2931 14 Aug, 2011 [facility] [address] [id number] [place] [address]- 1884 30 Jul, 2011 [facility] [place] [facility] [address] [id number] [place] [address]- 4875 27 Jul, 2011 [facility] [place] [facility] [address] [id number] [place] [address]- 8287 27 Jul, 2011 [facility] [place] [facility] [address] [id number] [place] [address]- 3208 18 Jul, 2011 [facility] [address] [id number] [place] [address]- 4314 16 Jul, 2011 [facility] [place] [facility] [address] [id number] [place] [address]- 4658 16 Jul, 2011 [facility] [address] [id number] [place] [address]- 8762 16 Jul, 2011 [facility] [place] [facility] [address] [id number] [place] [address]- 2068 14 Jul, 2011 [facility] [place] [facility] [address] [id number] [place] [address]- 5179 Jul, [facility] [place] [facility] [address] [facility] [id number] [place] [address]- 6467 19 Jun, 2011 [facility] [place] [facility] [address] [id number] [place] [address]- 7216 18 Jun, 2011 [facility] [place] [facility] [address] [id number] [place] [address]- 1908 15 Jun, 2011 [facility] [place] [facility] [address] [id number] [place] [address]- 9765 12 Jun, 2011 [facility] [place] [facility] [address] [facility] [id number] [place] [address]- 2109 08 Jun, 2011 [facility] [place] [facility] [address] [facility] [id number] [place] [address]- 9099 08 Jun, 2011 [facility] [place] [facility] [address] [id number] [place] [address]- 2960 Jun, [facility] [address] [id number] [place] [address]- 9864 Jun, [facility] [place] [facility] [address] [id number] [place] [address]- 4596 May, [facility] [place] [facility] [address] [id number] [place] [address]- 9046 May, [facility] [place] [facility] [address] [id number] [place] [address]- 1574 May, [facility] [place] [facility] [address] [id number] [place] [address]- 0339 Apr, [facility] [address] [id number] [place] [address]- 8604 Apr, [facility] [address] [id number] [place] [address]- 9634 Apr, [facility] [address] [id number] [place] [address]- 6626 Mar, [facility] [address] [id number] [place] [address]- 5885 Mar, [facility] [address] [id number] [place] [address]- 9220 15 Mar, 2011 [facility] [place] [facility] [address] [id number] [place] [address]- 2276 Mar, [facility] [place] [facility] [address] [id number] [place] [address]- 4395 Mar, [facility] [place] [facility] [address] [id number] [place] [address] Mar, [facility] [place] [facility] [address] [id number] [place] [address] 12 Mar, 2011 [facility] [place] [facility] [address] [id number] [address] 12 Mar, 2011 [facility] [place] [facility] [address] [id number] [place] [address] 08 Mar, 2011 [facility] [place] [facility] [address] [id number] [place] [address] Mar, [facility] [place] [facility] [address] [facility] [id number] [place] [address] Mar, [facility] [place] [facility] [address] [id number] [place] [address] Mar, [facility] [place] [facility] [address] [id number] [place] Mar, [facility] [place] [facility] [address] [id number] [place] [address] Mar, [facility] [place] [facility] [address] [id number] [place] [address] Feb, [facility] [place] [facility] [address] [id number] [place] [address] Feb, [facility] [place] [facility] [address] [id number] [place] [address] Feb, [facility] [place] [facility] [address] [id number] [place] [address] Jan, [facility] [place] [facility] [address] [id number] [address] Jan, [facility] [place] [facility] [address] [id number] [place] [address] Oct, [facility] [place] [facility] [address] [id number] [place] [address] Sep, [facility] [place] [facility] [address] [id number] [place] [address] Mar, [facility] [place] [facility] [address] [id number] [place] 16 Mar, 2010 [facility] [place] [facility] [id number] [address] 16 Feb, 2010 [facility] [id number] [address] Feb, [facility] [id number] [address] Jan, [facility] [id number] [address] Jan, [facility] [id number] [address] Mar, [facility] [id number] [place] [address] Feb, [facility] [id number] [place] [address] Feb, [facility] [id number] [place] [address] Feb, [facility] [id number] [address] Feb, [facility] [id number] [address] Jan, [facility] [id number] [address] Dec, [facility] [id number] [address] Nov, IMMUNIZATIONS No Known Immunizations SOCIAL HISTORY Never Assessed REASON FOR VISIT Surgery Clearance PLAN OF CARE Activity Details Follow Up prn Reason: VITAL SIGNS MEDICATIONS Medication Instructions Dosage Frequency Start Date End Date Duration Status Metoprolol Tartrate 25 MG Orally Twice a day 1 tablet with food 12h Active Divalproex Sodium 125 MG Orally 4 times a day 2 capsules 6h Active Aricept 10 mg Orally Once a day 1 tablet at bedtime 24h Dec, 30 day(s) Active Melatonin 3 MG Orally Once a day 1 tablet at bedtime 24h Active Ibuprofen 200 mg Orally 4 times a day as needed for pain or fever 2 tablet with food or milk as needed Oct, Active Plavix 75 MG Orally Once a day 1 tablet 24h Active Simvastatin 10 MG Orally Once a day 1 tablet in the evening 24h Active Cholecalciferol 4000 UNIT Orally Once a day 1 tablet 24h Active Celexa 20 mg Orally Once a day 1 tablet 24h 30 days Active Tresiba FlexTouch 100 UNIT/ML Subcutaneous Once a day 15u 24h Feb, 30 days Active Enalapril Maleate 2.5 MG Orally Once a day 1 tablet 24h Active Clonidine HCl 0.2 MG Orally twice a day 1 tablet 12h Active Remeron 15 MG Orally Once a day 1 tablet at bedtime 24h Active Lactobacillus - Orally 4 times a day 1 tablet 6h Active Aspir-81 81 MG Orally Once a day 1 tablet 24h Active Glimepiride 4 MG Orally Once a day 1 tablet with breakfast or the first main meal of the day 24h Sep, 30 day(s) Active Metformin HCl 1000 MG Orally Twice a day 1 tablet with meals 12h Active Mylanta 200-200-20 MG/5ML Orally every 4 hrs 30 ml as needed 4h Active Klonopin 0.5 MG Orally Twice a day 2 tablets in AM and 1 in PM 12h August, 28 days Active Exelon 9.5 MG/24HR Transdermal Once a day 1 patch to skin 24h Active Levetiracetam 500 mg Orally Twice a day 1 tablet 12h Active Synthroid 175 MCG Orally Once a day 1 tablet on an empty stomach in the morning 24h Active RESULTS No Results PROCEDURES Procedure Date Ordered Result Body Site Minor complication (15 mins) Feb 24, 2018 INSTRUCTIONS MEDICATIONS ADMINISTERED No Known Medications MEDICAL (GENERAL) HISTORY Type Description Date Medical History 12/2017 Osteomyelitis of right 2nd toe Surgical History amputation of right great toe Surgical History amputation of left 4th toe Hospitalization History [facility] March 2015 Hospitalization History ED [place]- [place], fever 10/26/17
--- OUTSIDE RECORDS SUMMARY | 2018-03-11 13:09 | XMS REPORT ---
Author Author STEPHANIE CHRISTIANSEN [facility] Address [address] [place] [address] Care Team Providers Care Ice Grinder Name Role Phone STEPHANIE CHRISTIANSEN Unavailable PROBLEMS Type Condition ICD9-CM Code SGZ57-ZT Code Onset Dates Condition Status SNOMED Code Problem Hyperlipidemia, unspecified hyperlipidemia type E78.5 Active 61282711 Problem Abnormal carotid ultrasound R93.8 Active 517658725 Problem Type 2 diabetes mellitus with complication E11.8 Active 51051534 Problem Positive TB test R76.11 Active 875162085 Problem Vascular dementia with behavior disturbance F01.51 Active 059145843 Problem Recurrent major depressive disorder, remission status unspecified F33.9 Active 17510038 Problem Pain R52 Active 99157541 Problem Generalized anxiety disorder F41.1 Active 63117576 Problem PVD (peripheral vascular disease) I73.9 Active 521778651 Problem Unstable angina pectoris I20.0 Active 0092877 Problem Other chronic osteomyelitis of left foot M86.672 Active 418191003 Problem Cerebrovascular accident (CVA) due to other mechanism I63.8 Active 369207527 Problem Peripheral vascular disease due to secondary diabetes E13.51 Active 0408413 Problem Nonintractable epilepsy without status epilepticus, unspecified epilepsy type G40.909 Active 847372527 Problem Pseudobulbar affect F48.2 Active 93910202 Problem Anxiety F41.9 Active 81880887 Problem Nicotine dependence, unspecified, uncomplicated F17.200 Active 405258379 Problem Vascular dementia F01.50 Active 010260442 Problem Gastroesophageal reflux disease without esophagitis K21.9 Active 811273130 Problem Essential hypertension I10 Active 63063349 Problem Pulmonary emphysema, unspecified emphysema type J43.9 Active 24243555 Problem Coronary artery disease involving [place] coronary artery of [place] heart without angina pectoris I25.10 Active 3248760814005 Problem Depression F32.9 Active 47703242 Problem Long-term insulin use Z79.4 Active 266518946 Problem Acquired hypothyroidism E03.9 Active 197365615 Problem Neuropathy G62.9 Active 656924010 ALLERGIES No Information ENCOUNTERS Encounter Location Date Diagnosis [facility] [id number] [place] [address] 81053- 5575 Feb, Generalized anxiety disorder F41.1 [facility] [address] [facility] [address] [place] [id number] Feb, Other acute osteomyelitis of right foot M86.171 ; Type 2 diabetes mellitus with complication E11.8 ; Hyperglycemia R73.9 and Unstable angina pectoris I20.0 [facility] [id number] [place] [address] 23241- 8558 02 Feb, 2018 [facility] [id number] [place] [address] 57986- 8746 18 Jan, 2018 Generalized anxiety disorder F41.1 [facility] [id number] [place] [address] 68639- 8949 15 Jan, 2018 Generalized anxiety disorder F41.1 [facility] [address] [place] [id number] Dec, Crush injury T14.8XXA [facility] [id number] [place] [address] 07005- 0689 14 Dec, 2017 Generalized anxiety disorder F41.1 [facility] [id number] [place] [address] 27180- 9582 14 Dec, 2017 [facility] [id number] [place] [address] 81138- 4251 Dec, [facility] [id number] [place] [address] 97567- 8977 Nov, Generalized anxiety disorder F41.1 [facility] [id number] [place] [address] 12940- 1032 Oct, Generalized anxiety disorder F41.1 [facility] [id number] [place] [address] 81069- 9641 Oct, Generalized anxiety disorder F41.1 [facility] [address] [place] [id number] Oct, Sepsis, due to unspecified organism A41.9 ; Generalized anxiety disorder F41.1 ; Pain R52 and Depression F32.9 [place] [id number] [place] [address] 90355- 6482 Oct, [facility] [id number] [place] [address] 29543- 1332 Oct, [place] [id number] [place] [address] 81619- 1601 Sep, Generalized anxiety disorder F41.1 [place] [id number] [place] [address] 67503- 1728 Sep, [facility] [id number] [place] [address] 15546- 0626 Sep, Type 2 diabetes mellitus with complication E11.8 [place] [facility] [id number] [place] [address] 79023- 8647 August, Generalized anxiety disorder F41.1 [place] [id number] [place] [address] 79563- 3593 August, [facility] [address] [facility] [address] [place] [id number] August, Type 2 diabetes mellitus with complication E11.8 ; Vascular dementia with behavior disturbance F01.51 ; Long-term insulin use Z79.4 and Nicotine dependence, unspecified, uncomplicated F17.200 [place] [address] [place] [address] 25484- 0740 August, Generalized anxiety disorder F41.1 [place] [address] [place] [address] 98525- 2197 Jul, Generalized anxiety disorder F41.1 [facility] [id number] [place] [address] [id number] Jun, Generalized anxiety disorder F41.1 [facility] [id number] [place] [address] [id number] Jun, [facility] [place] [facility] [id number] [id number] May, [facility] [address] [address]- 3962 May, [facility] [place] [facility] [id number] [address] May, Generalized anxiety disorder F41.1 [facility] [id number] [place] [address] 331314- 8467 Apr, [facility] [address] [place] [id number] Apr, Other chronic osteomyelitis of left foot M86.672 ; Type 2 diabetes mellitus with complication E11.8 ; Vascular dementia F01.50 ; Long-term insulin use Z79.4 ; PVD (peripheral vascular disease) I73.9 and Nicotine abuse 305.1 [place] [address] [place] [address] 22160- 2105 Apr, [facility] [place] [facility] [id number] [place] [address] [id number] Apr, [facility] [address] [place] [address] 05242- 6300 Apr, Pain R52 and Generalized anxiety disorder F41.1 [place] [address] [address]- 3273 Mar, [facility] [address] [place] [address] 89713- 0168 Mar, Pain R52 and Generalized anxiety disorder F41.1 [facility] [address] [id number] Feb, Depression F32.9 ; Type 2 diabetes mellitus with complication E11.8 and Nicotine dependence, unspecified, uncomplicated F17.200 [facility] [address]- 9132 Feb, Generalized anxiety disorder F41.1 and Pain R52 [facility] [id number] [place] [address] 97941- 5689 Feb, [facility] [id number] [place] [address] 33346- 5608 Jan, [facility] [id number] [place] [address] 60526- 2399 Jan, Generalized anxiety disorder F41.1 and Pain R52 [facility] [address] 43635- 4377 Jan, [facility] [place] [facility] [id number] [place] [address] [id number] Dec, Generalized anxiety disorder F41.1 and Pain R52 [facility] [address] [place] [id number] Dec, Vascular dementia F01.50 ; Pain of left leg M79.605 ; Pain in right leg M79.604 and Type 2 diabetes mellitus with complication E11.8 [facility] [address] 20108- 9294 Dec, Pain R52 [facility] [id number] [place] [address] 54085- 9540 Dec, [facility] [id number] [place] [address] 54689- 2718 Nov, [facility] [address] [place] [address] 94609- 1389 Nov, Pain R52 and Generalized anxiety disorder F41.1 [facility] [address] [id number] Nov, Depression F32.9 ; Vascular dementia with behavior disturbance F01.51 and Anxiety F41.9 [facility] [id number] [place] [address] 80099- 6065 Nov, Pain R52 and Generalized anxiety disorder F41.1 [facility] [id number] [place] [address] 11509- 4357 Oct, Generalized anxiety disorder F41.1 [facility] [id number] [address]- 4706 Oct, Pain R52 [facility] [address] [place] [address] 78007- 4858 Sep, [facility] [address] [facility] [address] [place] [id number] Sep, Generalized anxiety disorder F41.1 [facility] [address] [address]- 8633 Sep, Pain R52 [facility] [id number] [place] [address] 21229- 1802 Sep, Generalized anxiety disorder F41.1 [facility] [address] [place] [address] 41654- 2936 August, [facility] [id number] [address]- 5015 August, [facility] [address], [place] [address]- 5474 August, Pain R52 [facility] [address], [place] [address]- 1045 August, Generalized anxiety disorder F41.1 [facility] [id number] [id number] August, Generalized anxiety disorder F41.1 [facility] [address], [place] [address]- 0239 Jul, Pain R52 [facility] [id number] [address]- 3117 Jul, [facility] [id number] [place] [address] [id number] Jul, [facility] [address], [place] [address]- 2546 Jun, [facility] [address] [id number] [id number] Jun, Depression F32.9 [place] [id number] [place] [address] 97148- 9164 Jun, Pain R52 [place] [id number] [place] [address] 38160- 1476 Jun, [facility] [address] [place] [id number] Jun, Vascular dementia F01.50 and Depression F32.9 [place] [id number] [place] [address] 65650- 3817 May, Pain R52 [place] [address] 86108- 3226 May, [place] [address] 26124- 7574 10 May, 2016 Pseudobulbar affect F48.2 [place] [address] 13779- 9661 09 May, 2016 [place] [id number] [place] [address] 50598- 3987 08 May, 2016 PVD (peripheral vascular disease) I73.9 [place] [id number] [place] [address] 33343- 4003 08 May, 2016 Vascular dementia with behavior disturbance F01.51 [place] [id number] [place] [address] 36029- 6869 02 May, 2016 Vascular dementia with behavior disturbance F01.51 [place] [id number] [place] [address] 96646- 8467 Apr, [place] [address] 81911- 2474 Apr, Pain R52 [facility] [address] [place] [id number] Apr, Generalized anxiety disorder F41.1 ; PVD (peripheral vascular disease) I73.9 and Type 2 diabetes mellitus with complication E11.8 [place] [address] [place] [address] 77122- 9391 Apr, Vascular dementia with behavior disturbance F01.51 [facility] [id number] [place] [address] 36853- 5366 Apr, [facility] [id number] [place] [address] 73090- 2311 Apr, Vascular dementia with behavior disturbance F01.51 [facility] [id number] [place] [address] 50860- 7372 Apr, [facility] [facility] [address] [id number] Mar, [facility] [id number] [place] [address] 37491- 2232 Mar, Type 2 diabetes mellitus with complication E11.8 ; Vascular dementia with behavior disturbance F01.51 and Depression F32.9 [facility] [id number] [place] [address] 25389- 9499 Mar, [facility] [id number] [place] [address] 50835- 6713 Feb, [facility] [id number] [place] [address] 26591- 6300 Feb, Viral illness B34.9 [facility] [id number] [place] [address] 04235- 4004 Jan, Diabetes 250.00 [facility] [id number] [place] [address] 19000- 8715 Jan, [facility] [id number] [place] [address] 33612- 7248 Jan, [facility] [id number] [place] [address] 98172- 0507 Jan, [facility] [address] [facility] [address] [place] [id number] Jan, Vascular dementia with behavior disturbance F01.51 and Type 2 diabetes mellitus with complication E11.8 [facility] [address] [facility] [id number] [address]- 3249 Jan, Pain R52 [facility] [address] [facility] [id number] [address]- 1846 Jan, Pain R52 [facility] [address], [place] [address]- 9188 Dec, [facility] [address], [place] [address]- 1146 Nov, [facility] [address] [facility] [address] [place] [id number] Nov, Type 2 diabetes mellitus with complication E11.8 [facility] [address] [address]- 3364 Nov, [facility] [address], [place] [address]- 6329 Oct, [facility] [address], [place] [address]- 1823 Oct, [facility] [address] [place] [address] 59514- 7107 Oct, Vascular dementia with behavior disturbance F01.51 and Type 2 diabetes mellitus with complication E11.8 [facility] [address], [place] [address]- 9088 August, Type 2 diabetes mellitus with complication E11.8 and Vascular dementia with behavior disturbance F01.51 [facility] [address], [place] [address]- 5476 August, Vascular dementia F01.50 [facility] [address], [place] [address]- 8439 August, Vascular dementia with behavior disturbance F01.51 [facility] [address], [place] [address]- 4589 Jul, Vascular dementia with behavior disturbance F01.51 [facility] [id number] [address]- 8929 Jun, Vascular dementia F01.50 [facility] [address], [place] [address]- 8360 Jun, Type 2 diabetes mellitus with complication E11.8 ; Long- term insulin use Z79.4 and Vascular dementia with behavior disturbance F01.51 [facility] [address], [place] [address]- 7255 08 Jun, 2015 Vascular dementia with behavior disturbance F01.51 [facility] [address] [address]- 9503 07 Jun, 2015 Vascular dementia F01.50 [facility] [address], [place] [address]- 7443 Apr, [place] [address], [place] [address]- 0628 Apr, [place] [address], [place] [address]- 0740 Apr, [facility] [address], [place] [address]- 1592 Apr, Type 2 diabetes mellitus with complication E11.8 ; Depression F32.9 and Long-term insulin use Z79.4 [place] [address], [place] [address]- 1316 Mar, [facility] [address] [place] [id number] Mar, Depression F32.9 ; Type 2 diabetes mellitus with complication E11.8 and Long-term insulin use Z79.4 [place] [address] [address]- 6738 Feb, [place] [address], [place] [address]- 0474 16 Feb, 2015 Hyperthyroidism E05.90 [place] [address], [place] [address]- 3710 Feb, Hyperthyroidism E05.90 [facility] [address], [place] [address]- 8615 Feb, [facility] [address], [place] [address]- 7776 Jan, [facility] [address], [place] [address]- 9062 Dec, Nicotine addiction 305.1 [facility] [id number] [place] [address] 56399- 3061 Oct, Nicotine abuse 305.1 [facility] [id number] [place] [address] 12664- 3511 Oct, [facility] [address], [place] [address]- 5572 August, [facility] [address] [place] [id number] August, History of drug abuse 305.93 and Diabetes 250.00 [facility] [address], [place] [address]- 4355 14 Jul, 2014 [facility] [address], [place] [address]- 9055 Jul, [facility] [address] 7944 18 Jun, 2014 [facility] [address], [place] [address]- 2018 18 Jun, 2014 [facility] [address], [place] [address]- 7530 Jun, [facility] [address], [place] [address]- 4788 Jun, [facility] [address], [place] [address]- 7066 04 Jun, 2014 [facility] [address], [place] [address]- 1161 Jun, [facility] [place] [facility] [address] [id number] [place] [address]- 8465 May, [facility] [place] [facility] [address] [id number] [place] [address]- 9694 May, [facility] [place] [facility] [address] [facility] [id number] [place] [address]- 1353 May, [facility] [place] [facility] [address] [id number] [place] [address]- 8202 May, [facility] [place] [facility] [address] [id number] [place] [address]- 7210 May, [facility] [place] [facility] [address] [facility] [id number] [place] [address]- 2836 Apr, [facility] [address] [facility] [id number] [address]- 9340 Apr, [place] [address] [place] [id number] Apr, [facility] [place] [facility] [address] [facility] [id number] [address]- 6072 Apr, [facility] [place] [facility] [address] [facility] [id number], [place] [address]- 0255 Apr, [facility] [place] [facility] [address] [facility] [id number], [place] [address]- 6733 Apr, [facility] [place] [facility] [address] [id number], [place] [address]- 0941 Apr, [facility] [place] [facility] [address] [id number] [address]- 6315 Apr, [facility] [place] [facility] [address] [id number], [place] [address]- 2012 Mar, [facility] [place] [facility] [address] [facility] [id number], [place] [address]- 0374 Mar, [facility] [place] [facility] [address] [id number] [place] [address]- 9075 04 Mar, 2014 [facility] [address] [id number] [place] [address]- 1075 Mar, [facility] [place] [facility] [address] [id number] [place] [address]- 4867 Mar, [facility] [place] [facility] [address] [id number] [place] [address]- 4645 Mar, [facility] [place] [facility] [address] [id number] [place] [address]- 3118 Mar, [facility] [place] [facility] [address] [id number] [place] [address]- 8204 Mar, [facility] [place] [facility] [address] [id number] [place] [address]- 8889 Feb, [facility] [place] [facility] [address] [id number] [place] [address]- 8331 Feb, [facility] [place] [facility] [address] [id number] [place] [address]- 2572 Feb, [facility] [place] [facility] [address] [id number] [place] [address]- 5000 Feb, [facility] [place] [facility] [address] [id number] [place] [address]- 2532 Feb, [facility] [address] [place] [id number] Feb, [facility] [place] [facility] [address] [id number], [place] [address]- 2323 Feb, [facility] [place] [facility] [address] [id number] [place] [address]- 9206 Feb, [facility] [place] [facility] [address] [id number], [place] [address]- 5438 Feb, [facility] [place] [facility] [address] [id number], [place] [address]- 2834 Feb, [facility] [place] [facility] [address] [id number] [place] [address]- 1637 30 Jan, 2013 [facility] [place] [facility] [address] [id number] [place] [address]- 4835 30 Jan, 2013 [facility] [place] [facility] [address] [id number] [place] 0798 17 Jan, 2013 [facility] [place] [facility] [address] [id number] [place] [address]- 2784 17 Jan, 2013 [facility] [place] [facility] [address] [id number] [place] [address]- 4293 16 Jan, 2013 [facility] [place] [facility] [address] [id number] [place] [address]- 8479 16 Jan, 2013 [facility] [place] [facility] [address] [id number] [place] [address]- 9056 15 Jan, 2013 [facility] [place] [facility] [address] [id number] [place] [address]- 8213 Jan, 2013 [facility] [place] [facility] [address] [id number] [place] [address] Jan, 2013 [facility] [place] [facility] [address] [id number] [place] [address] Jan, 2013 [facility] [place] [facility] [address] [id number] [place] [address] Jan, 2013 [facility] [place] [facility] [address] [id number] [place] [address] Jan, 2013 [facility] [place] [facility] [address] [id number] [place] [address] Jan, 2013 [facility] [place] [facility] [address] [id number] [place] [address] 08 Jan, 2013 [facility] [place] [facility] [address] [id number] [place] [address] 08 Jan, 2013 [facility] [place] [facility] [address] [id number] [place] [address] Jan, 2013 [facility] [place] [facility] [address] [id number] [place] [address] 07 Jan, 2013 [facility] [place] [facility] [address] [id number] [place] [address] 19 Sep, 2013 [facility] [place] [facility] [address] [id number] [place] [address] 19 Sep, 2013 [facility] [place] [facility] [address] [id number] [place] [address] 11 Sep, 2013 [facility] [place] [facility] [address] [id number] [place] [address] 11 Sep, 2013 [facility] [place] [facility] [address] [id number] [place] [address] 49[address] 09 Sep, 2013 [facility] [place] [facility] [address] [id number] [place] [address] 09 Sep, 2013 [facility] [place] [facility] [address] [id number] [place] [address] 08 Sep, 2013 [facility] [place] [facility] [address] [id number] [place] [address] 08 Sep, 2013 [facility] [place] [facility] [address] [id number], [place] [address] 08 Sep, 2013 [facility] [place] [facility] [address] [id number], [place] [address] 08 Sep, 2013 [facility] [place] [facility] [address] [id number], [place] [address] 05 Sep, 2013 [facility] [place] [facility] [address] [id number], [place] [address] 05 Sep, 2013 [facility] [place] [facility] [address] [id number] [place] [address] 02 Sep, 2013 [facility] [place] [facility] [address] [id number], [place] [address] 02 Sep, 2013 [facility] [facility] [address] [id number], [place] [address] Nov, [facility] [place] [facility] [address] [id number] [place] [address]57 Nov, [facility] [place] [facility] [address] [id number] [place] [address] 7661 Nov, [facility] [place] [facility] [address] [id number] [place] [address] 7732 Nov, [facility] [place] [facility] [address] [id number] [place] [address] 2869 Nov, [facility] [place] [facility] [address] [id number] [place] [address] 2319 Nov, [facility] [place] [facility] [address] [id number] [place] [address] 5648 Nov, [facility] [place] [facility] [address] [id number] [place] [address]- 8836 Nov, [facility] [place] [facility] [address] [id number] [place] [address] 9223 Nov, [facility] [place] [facility] [address] [id number] [place] [address]- 5157 Nov, [facility] [place] [facility] [address] [id number] [place] [address] 1712 Nov, [facility] [place] [facility] [address] [id number] [place] [address]- 1336 Nov, [facility] [place] [facility] [address] [id number] [place] [address]- 6583 Nov, [facility] [place] [facility] [address] [id number] [place] [address]- 2378 Nov, [facility] [place] [facility] [address] [id number] [place] [address]- 7586 Oct, [facility] [place] [facility] [address] [id number] [place] [address]- 5186 Oct, [facility] [place] [facility] [address] [id number] [place] [address]- 6047 Oct, [facility] [place] [facility] [address] [id number] [place] [address]- 7864 Oct, [facility] [place] [facility] [address] [id number] [place] [address]- 3416 Oct, [facility] [place] [facility] [address] [id number] [place] [address]- 0306 Oct, [facility] [place] [facility] [address] [id number] [place] [address]- 7425 Oct, [facility] [place] [facility] [address] [id number] [place] [address]- 2065 Oct, [facility] [place] [facility] [address] [id number] [place] [address]- 4769 Oct, [facility] [place] [facility] [address] [id number] [place] [address]- 3193 Oct, [facility] [place] [facility] [address] [id number] [place] [address]- 5664 Oct, [facility] [place] [facility] [address] [id number] [place] [address]- 1649 Oct, [facility] [place] [address] [id number] [place] [address]- 2051 Oct, [facility] [address] [id number] [place] [address]- 8677 Oct, [facility] [place] [address] [id number] [place] [address]- 6055 Oct, [facility] [place] [facility] [address] [id number] [place] [address]- 1316 Oct, [facility] [place] [facility] [address] [id number] [place] [address]- 8906 Oct, [facility] [place] [facility] [address] [id number] [place] [address] 1902 Oct, [facility] [place] [facility] [address] [id number] [place] [address]- 4562 Oct, [facility] [place] [facility] [address] [id number] [place] [address]- 1632 Oct, [facility] [place] [facility] [address] [id number] [place] [address]- 7018 Sep, [facility] [place] [facility] [address] [id number] [place] [address]- 1481 Sep, [facility] [place] [facility] [address] [id number] [place] [address]- 3038 Sep, [facility] [place] [facility] [address] [id number] [place] [address]- 3622 Sep, [facility] [place] [facility] [address] [id number] [place] [address]- 0564 Sep, [facility] [place] [facility] [address] [id number] [place] [address]- 3695 Sep, [facility] [place] [facility] [address] [id number] [place] [address]- 2590 August, [facility] [place] [facility] [address] [id number] [place] [address]- 4328 August, [facility] [address] [id number] [place] [address]- 4647 Jul, [facility] [place] [address] [id number] [place] [address]- 8072 Jul, [facility] [place] [address] [id number] [place] [address]- 8468 Jul, [facility] [address] [id number] [place] [address]- 1309 Jul, [facility] [address] [id number] [place] [address]- 6396 Jul, [facility] [address] [id number] [place] [address]- 6111 07 Jul, 2013 [facility] [address] [id number] [place] [address] Jul, [facility] [address] [id number] [place] Jul, [facility] [address] [id number] [place] [address]- 7268 Jun, [facility] [address] [id number] [place] [address]- 8751 Jun, [facility] [address] [id number] [place] [address] Jun, [facility] [address] [facility] [id number] [place] [address]- 0190 Jun, [facility] [address] [facility] [id number] [place] [address]- 7202 Jun, [facility] [place] [facility] [address] [id number] [place] [address]- 5373 May, [facility] [address] [facility] [id number] [place] [address]- 3774 May, [facility] [place] [address] [facility] [id number] [place] [address]- 6694 May, [facility] [place] [address] [facility] [id number] [place] [address]- 9587 May, [facility] [address] [facility] [id number] [place] [address]- 7489 May, [facility] [address] [id number] [place] [address]- 7462 May, [facility] [address] [facility] [id number] [place] [address]66 May, [facility] [address] [facility] [id number] [place] [address]- 4873 May, [facility] [address] [id number] [place] [address]- 4679 May, [facility] [address] [id number] [place] [address]- 0816 May, [facility] [address] [facility] [id number] [place] [address]- 5536 May, [facility] [place] [address] [id number] [place] [address]- 5083 Apr, [facility] [address] [id number] [place] [address]- 3777 Apr, [facility] [address] [id number] [place] [address]- 7980 Mar, [facility] [place] [address] [id number] [place] [address]- 0938 Mar, [facility] [place] [address] [id number] [place] [address]- 4551 Mar, [facility] [address] [id number] [place] [address]- 3523 Mar, [facility] [address] [facility] [id number] [place] [address]- 1705 Mar, [facility] [address] [facility] [id number], [place] [address]- 8610 Jan, [facility] [address] [id number], [place] [address]- 7916 24 Jan, 2013 [facility] [address] [id number] [place] [address]- 3754 Jan, [facility] [address] [facility] [id number] [place] [address]- 3954 Jan, [facility] [address] [facility] [id number] [place] [address]- 1642 Jan, [facility] [address] [id number] [place] [address]- 2771 Jan, [facility] [address] [id number] [place] [address]- 8794 Jan, [facility] [address] [id number] [place] [address]- 2546 Jan, [facility] [address] [id number] [place] [address]- 9410 Jan, [facility] [address] [id number] [place] [address] 2549 Jan, [facility] [address] [id number] [place] [address]- 2023 Dec, [facility] [address] [id number] [place] [address]- 7378 Oct, [facility] [address] [id number] [place] [address]- 9145 Oct, [facility] [address] [id number] [place] [address]- 5569 Oct, [facility] [address] [id number] [place] [address]- 5655 Oct, [facility] [address] [id number] [place] [address]- 4494 Oct, [facility] [address] [id number] [place] [address]- 8688 Oct, [facility] [address] [id number] [place] [address]- 2420 Sep, [facility] [address] [id number] [place] [address]- 1277 August, [facility] [address] [id number] [place] [address]- 5086 August, [facility] [address] [id number] [place] [address]- 6573 August, [facility] [address] [id number] [place] [address]- 0386 August, [facility] [address] [id number] [place] [address]- 0146 August, [facility] [address] [id number] [place] [address]- 8906 May, [facility] [address] [id number] [place] [address]- 3836 Apr, [facility] [address] [id number] [place] [address]- 0656 Apr, [facility] [address] [id number] [place] [address]- 2546 Apr, [facility] [address] [id number] [place] [address]- 2546 Apr, [facility] [address] [facility] [id number] [place] [address]- 8366 Apr, [facility] [address] [place] [id number] Mar, [facility] [address] [id number] [place] [address]- 6156 Mar, [facility] [address] [id number] [place] [address]- 6226 Mar, [facility] [address] [id number] [place] [address]- 2546 Mar, [facility] [address] [id number] [place] [address]- 7326 17 Mar, 2012 [facility] [address] [id number] [place] [address]- 6416 17 Mar, 2012 [facility] [address] [id number] [place] [address]- 2546 13 Mar, 2012 [facility] [address] [id number] [place] [address]- 5160 13 Mar, 2012 [facility] [address] [id number] [place] [address]- 1381 13 Mar, 2012 [facility] [place] [address] [id number] [place] [address]- 2756 13 Mar, 2012 [facility] [address] [facility] [id number] [place] 6436 12 Mar, 2012 [facility] [address] [id number] [place] Mar, [facility] [place] [facility] [address] [id number] [place] [address]- 6596 Mar, [facility] [place] [address] [id number] [place] [address]- 4136 Mar, [facility] [address] [facility] [id number] [place] [address]- 6702 Mar, [facility] [place] [facility] [address] [id number] [place] [address]- 0915 Mar, [facility] [place] [facility] [address] [id number] [place] [address]- 4262 Mar, [facility] [place] [facility] [address] [id number] [place] [address]- 8512 Mar, [facility] [address] [id number], [place] [address]- 4825 Mar, [facility] [address] [id number], [place] [address]- 3926 05 Mar, 2012 [facility] [address] [id number] [place] [address]- 8197 Feb, [facility] [place] [facility] [address] [id number] [place] [address]- 3709 Feb, [facility] [place] [address] [facility] [id number] [place] [address]- 1578 Feb, [facility] [address] [id number] [place] [address]- 5180 Feb, [facility] [place] [facility] [address] [id number] [place] [address]- 0045 Jan, [facility] [place] [facility] [address] [id number] [place] [address]- 6912 Jan, [facility] [facility] [address] [id number] [place] [address]- 9481 Jan, [facility] [place] [facility] [address] [id number] [place] [address]- 5854 Jan, [facility] [place] [facility] [address] [id number] [place] [address]- 1553 Jan, [facility] [place] [facility] [address] [id number] [place] [address]- 6964 Jan, [facility] [place] [facility] [address] [id number] [place] [address]- 3435 Jan, [facility] [place] [facility] [address] [id number] [place] [address]- 0801 Jan, [facility] [place] [facility] [address] [id number] [place] [address]- 8967 Jan, [facility] [place] [facility] [address] [id number] [place] [address]- 1181 27 Dec, 2011 [facility] [place] [facility] [address] [id number] [place] [address] 2546 14 Dec, 2011 [facility] [place] [facility] [address] [id number] [place] [address]- 9806 12 Dec, 2011 [facility] [place] [facility] [address] [id number] [place] [address]- 9053 06 Dec, 2011 [facility] [place] [facility] [address] [id number] [place] [address]- 4471 06 Dec, 2011 [facility] [place] [facility] [address] [id number] [place] [address]- 2361 Nov, [facility] [place] [facility] [address] [id number] [place] [address]- 6999 Nov, [facility] [place] [facility] [address] [id number] [place] [address]- 0408 Nov, [facility] [place] [facility] [address] [id number] [place] [address]- 1726 Nov, [facility] [place] [facility] [address] [id number] [place] [address]- 9612 Nov, [facility] [place] [facility] [address] [id number] [place] [address]- 8723 Nov, [facility] [place] [facility] [address] [id number] [place] [address]- 1717 Nov, [facility] [place] [facility] [address] [id number] [place] [address]- 6489 Nov, [facility] [place] [facility] [address] [id number] [place] [address]- 4012 Nov, [facility] [place] [facility] [address] [id number] [place] [address]- 9893 Oct, [facility] [place] [facility] [address] [id number] [place] [address]- 7176 Oct, [facility] [facility] [address] [id number] [place] [address]- 3136 Sep, [facility] [place] [facility] [address] [id number] [place] [address]- 7536 Sep, [facility] [place] [facility] [address] [id number] [place] [address]- 7436 Sep, [facility] [place] [facility] [address] [id number] [place] [address]- 1476 August, [facility] [place] [facility] [address] [id number] [place] [address]- 3731 Jul, [facility] [place] [facility] [address] [id number] [place] [address]- 1841 27 Jul, 2011 [facility] [place] [facility] [address] [id number] [place] [address]- 7414 27 Jul, 2011 [facility] [place] [facility] [address] [id number] [place] 4356 18 Jul, 2011 [facility] [place] [facility] [address] [id number] [place] [address]- 7096 16 Jul, 2011 [facility] [place] [facility] [address] [id number] [place] [address]- 3984 16 Jul, 2011 [facility] [place] [facility] [address] [id number] [place] [address]- 0556 16 Jul, 2011 [facility] [place] [facility] [address] [id number] [place] [address]- 6065 14 Jul, 2011 [facility] [place] [facility] [address] [id number] [place] [address]- 0767 12 Jul, 2011 [facility] [place] [facility] [address] [id number] [place] [address]- 9339 19 Jun, 2011 [facility] [place] [facility] [address] [id number] [place] [address]- 8713 18 Jun, 2011 [facility] [place] [facility] [address] [id number] [place] [address]- 6029 15 Jun, 2011 [facility] [place] [facility] [address] [id number] [place] [address]- 6163 Jun, [facility] [place] [facility] [address] [id number] [place] [address]- 3799 Jun, [facility] [place] [facility] [address] [id number] [place] [address]- 5258 Jun, [facility] [place] [facility] [address] [id number] [place] [address]- 7409 Jun, [facility] [place] [facility] [address] [id number] [place] [address]- 5739 Jun, [facility] [place] [facility] [address] [id number] [place] [address]- 4722 May, [facility] [address] [id number] [place] [address]- 1546 May, [facility] [place] [facility] [address] [id number] [place] [address]- 8886 May, [facility] [address] [id number] [place] [address]- 6586 Apr, [facility] [address] [id number] [place] [address] 2544 Apr, [facility] [address] [id number] [place] [address]- 6931 Apr, [facility] [address] [id number] [place] [address]- 2219 Mar, [facility] [address] [id number] [place] [address]- 1647 Mar, [facility] [address] [id number] [place] [address]- 0809 15 Mar, 2011 [facility] [address] [id number] [place] [address]- 6466 Mar, [facility] [address] [id number] [place] [address]- 1635 Mar, [facility] [address] [id number] [place] [address]- 8947 Mar, [facility] [place] [facility] [address] [id number] [place] [address] 2546 Mar, [facility] [place] [facility] [address] [id number] [place] [address]- 1426 Mar, [facility] [place] [facility] [address] [id number] [place] [address] 2546 08 Mar, 2011 [facility] [place] [facility] [address] [id number] [place] [address]- 8546 Mar, [facility] [place] [facility] [address] [id number] [place] 1062 Mar, [facility] [place] [facility] [address] [id number] [place] [address]- 5632 Mar, [facility] [place] [facility] [address] [id number] [place] [address]- 4043 Mar, [facility] [place] [facility] [address] [id number] [place] [address]- 0152 Mar, [facility] [place] [facility] [address] [id number] [place] [address]- 9182 Feb, [facility] [place] [facility] [address] [id number] [place] [address] Feb, [facility] [place] [facility] [address] [id number] [place] [address] Feb, [facility] [place] [facility] [address] [id number] [place] [address] Jan, [facility] [place] [facility] [address] [id number] [place] [address] Jan, [facility] [place] [facility] [address] [id number], [place] [address] Oct, [facility] [place] [facility] [address] [id number], [place] [address] Sep, [facility] [place] [facility] [address] [id number], [place] [address] Mar, [facility] [place] [facility] [address] [id number] [place] [address] Mar, [facility] [place] [facility] [address] [id number], [place] [address] Feb, [facility] [place] [facility] [address] [id number] [place] [address] Feb, [facility] [place] [facility] [address] [id number], [place] [address] Jan, [facility] [id number], [place] [address] Jan, [facility] [id number] Mar, [facility] [id number] [address] Feb, [facility] [id number], [place] [address] Feb, [facility] [id number] [address] Feb, [facility] [id number], [place] [address] Feb, [facility] [id number] [address] Jan, [facility] [address] [id number], [place] [address] Dec, [facility] [address] [id number] [address] Nov, IMMUNIZATIONS No Known Immunizations SOCIAL HISTORY Never Assessed REASON FOR VISIT Surgery Clearance Request PLAN OF CARE VITAL SIGNS MEDICATIONS Unknown Medications RESULTS No Results PROCEDURES No Known procedures INSTRUCTIONS MEDICATIONS ADMINISTERED No Known Medications MEDICAL (GENERAL) HISTORY Type Description Date Medical History 12/2017 Osteomyelitis of right 2nd toe Surgical History amputation of right great toe Surgical History amputation of left 4th toe Hospitalization History [facility] [employer] [facility] March 2015 Hospitalization History [facility] [place]- [place], fever 10/26/17
--- NOTE | 2018-03-11 13:45 | ED Fall/Injury ---
General Chief Complaint: Trauma-Non Activation Stated Complaint: FALL;HEADACHE Source: patient Exam Limitations: no limitations History of Present Illness Date Seen by Provider: Mar 11, 2018 Time Seen by Provider: 13:43 Initial Comments To ER per private vehicle from local custodial with a fall 2 days ago. He landed on his forehead and has a goose egg to the forehead, he has bilateral periorbital ecchymosis. He denies loss of consciousness, he is alert and oriented. Today he developed a headache similar thought he should be evaluated. He was not evaluated at the time of the fall. He also has a cough present for one week. Occurred: just prior to arrival Severity: moderate Injuries/Pain Location: head Context: lost balance Loss of Consciousness: no loss of consciousness Associated Symptoms (Fall): No Confusion; Headache; No Nausea/Vomiting, No Neck Pain Allergies and Home Medications Allergies Coded Allergies: acetaminophen (Verified Allergy, Intermediate, 10/26/17) Home Medications Aspirin 81 Mg Tablet.dr, 81 MG PO DAILY, (Reported) Cefdinir 300 Mg Capsule, 300 MG PO BID Prescribed by: BRIAN HUGO on 03/11/18 1411 Cephalexin 500 Mg Capsule, 500 MG PO QID, (Reported) 3 WEEK THERAPY START DATE 02-13-18 END DATE 03-05-18 Cholecalciferol (Vitamin D3) 4,000 Unit Capsule, 4,000 UNIT PO DAILY, (Reported) Citalopram Hydrobromide 20 Mg Tablet, 20 MG PO DAILY, (Reported) Clonazepam 0.5 Mg Tablet, 0.5 MG PO 1400, (Reported) Clonazepam 0.5 Mg Tablet, 1 MG PO 0800, (Reported) TAKES 2 (0.5MG) TABLETS Clonidine HCl 0.2 Mg Tablet, 0.2 MG PO BID, (Reported) Clopidogrel Bisulfate 75 Mg Tablet, 75 MG PO DAILY, (Reported) Divalproex Sodium 125 Mg Cap.sprink, 250 MG PO QID, (Reported) TAKES 2 (125MG) CAPSULES Donepezil HCl 10 Mg Tablet, 10 MG PO HS, (Reported) Enalapril Maleate 2.5 Mg Tablet, 2.5 MG PO DAILY, (Reported) HOLD FOR BP < 90/50 OR PULSE < 50 Glimepiride 4 Mg Tablet, 4 MG PO DAILY, (Reported) Ibuprofen 200 Mg Tablet, 400 MG PO Q6H PRN for PAIN-MILD, (Reported) Icosapent Ethyl 1 Gm Capsule, 1 GM PO BID Prescribed by: BRIDGER JUSTICE on 02/26/18 0754 Insulin Degludec 100 Unit/1 Ml Insuln.pen, 15 UNIT SQ 0600, (Reported) Lactobacillus Acidophilus 1 Each Tablet, 1 TAB PO QID, (Reported) Levetiracetam 500 Mg Tablet, 500 MG PO 0900,1700, (Reported) Levothyroxine Sodium 175 Mcg Tablet, 175 MCG PO DAILY, (Reported) Mag Hydrox/Al Hydrox/Simeth 30 Ml Oral.susp, 30 ML PO Q4H PRN for INDIGESTION, ( Reported) Magnesium Hydroxide 400 Mg/5 Ml Oral.susp, 30 ML PO DAILY PRN for CONSTIPATION- 7TH LINE, (Reported) Melatonin 3 Mg Tablet, 3 MG PO HS, (Reported) Metformin HCl 1,000 Mg Tablet, 1,000 MG PO BID, (Reported) Metoprolol Tartrate 25 Mg Tablet, 25 MG PO BID, (Reported) HOLD IF BP < 90/50 OR PULSE <60 Mirtazapine 15 Mg Tablet, 7.5 MG PO HS, (Reported) TAKES 1/2 (15MG) TABLET Rivastigmine 9.5 Mg Patch, 9.5 MG TD DAILY, (Reported) Simvastatin 10 Mg Tablet, 10 MG PO HS, (Reported) Patient Home Medication List Home Medication List Reviewed: Yes Review of Systems Review of Systems Constitutional: see HPI; No chills, No fever Eyes: No Symptoms Reported Ears, Nose, Mouth, Throat: no symptoms reported Respiratory: see HPI, cough Cardiovascular: no symptoms reported Genitourinary: no symptoms reported Musculoskeletal: no symptoms reported Skin: no symptoms reported Psychiatric/Neurological: No Symptoms Reported Past Gdyszeh-Zdqytg-Cohnhl Hx Patient Social History Type Used: Cigarettes 2nd Hand Smoke Exposure: No Recent Hopitalizations: No Immunizations Up To Date Tetanus Booster (TDap): Unknown PED Vaccines UTD: No Date of Pneumonia Vaccine: Mar 20, 2004 Date of Influenza Vaccine: Feb 13, 2016 Seasonal Allergies Seasonal Allergies: No Past Medical History Surgeries: Yes (KNEE AND BACK SURGERY: DISKECTOMY AND FUSIONS, TOE AMPUTATION) Amputation, Coronary Stent, Orthopedic Respiratory: Yes COPD Cardiac: Yes Coronary Artery Disease Neurological: Yes Dementia, Stroke Reproductive Disorders: No Genitourinary: No Gastrointestinal: Yes Gastroesophageal Reflux Musculoskeletal: Yes ( CHRONIC PAIN ) Degenerate Disk Disease, Arthritis Endocrine: Yes Diabetes, Insulin dep, Hypothyroidsim HEENT: No Cancer: No Psychosocial: Yes Anxiety, Depression Integumentary: No Blood Disorders: No Family Medical History Cardiovascular disease 19 FATHER 19 MOTHER Diabetes mellitus G8 BROTHER FH: cancer Thyroid disease 19 MOTHER (HYPOTHYROIDISM) Physical Exam Vital Signs Vital Signs - First Documented 03/11/18 13:17 Temp 98.4 Pulse 63 Resp 18 B/P (MAP) 124/68 (86) Pulse Ox 98 O2 Delivery Room Air Capillary Refill : Height, Weight, BMI Height: 5'10.00" Weight: 180lbs. 0.0oz. 81.191400fr; 25.8 BMI Method:Estimated General Appearance: WD/WN, no apparent distress HEENT: PERRL/EOMI, normal ENT inspection Neck: non-tender, full range of motion Cardiovascular: regular rate, rhythm, no murmur Respiratory: no respiratory distress, no accessory muscle use, crackles (right side) Gastrointestinal: normal bowel sounds, non tender, soft Extremities: normal range of motion, non-tender Neurologic/Psychiatric: alert, normal mood/affect, oriented x 3 Skin: normal color, warm/dry Jyothi Coma Score Best Eye Response: (4) Open Spontaneously Best Verbal Response: (5) Oriented Best Motor Response: (6) Obeys Commands [place] Total: 15 Progress/Results/Core Measures Results/Orders My Orders Orders - BRIAN HUGO APRN Ct Head/Cervical Spine Wo (03/11/18 13:06) Chest Pa/Lat (2 View) (03/11/18 13:31) Vital Signs/I&O 03/11/18 03/11/18 13:17 14:49 Temp 98.4 98.2 Pulse 63 64 Resp 18 14 B/P (MAP) 124/68 (86) 119/62 (81) Pulse Ox 98 96 O2 Delivery Room Air Room Air Diagnostic Imaging Diagonstic Imaging: CT Comments NAME: JOLLY MANZANARES Jose [facility] REC#: [id number] PT STATUS: REG ER : 1950 PHYSICIAN: BRIAN HUGO APRN ADMIT DATE: 03/11/18/ER Draft Date of Exam:03/11/18 CT HEAD/CERVICAL SPINE WO PROCEDURE: CT head and CT cervical spine without contrast. TECHNIQUE: Multiple contiguous axial images were obtained through the brain and cervical spine without the use of intravenous contrast. Sagittal and coronal reformations through the cervical spine were then performed. INDICATION: Fall two days ago with injury to the right side of the head. CT HEAD: Comparison is made with prior CT of the head from 09/22/2014. Ventricles and sulci are prominent consistent with cerebral volume loss. There is periventricular hypodensity noted consistent with chronic microvascular ischemia. There is an area of encephalomalacia in the right frontal lobe, similar to prior exam. There is some soft tissue swelling in the right frontal scalp. No sulcal effacement or midline shift is seen. No acute intra-axial or extra-axial hemorrhage is detected. Cisterns are patent. The visualized paranasal sinuses demonstrate moderate mucosal thickening of bilateral maxillary sinuses and ethmoid air cells. IMPRESSION: Cerebral atrophy and chronic changes, similar to the exam from 09/22/2014. No acute intracranial hemorrhage is detected. Note is made of a right frontal scalp hematoma. CT OF CERVICAL SPINE: There is reversal of the normal cervical lordotic curvature. There appears to be fusion involving the C3 and C4 as well as partial fusion of C4 and C5 vertebral bodies. There is severe degenerative disc disease at C5-6 and C6-7 levels with complete loss of the disc space as well as marginal osteophyte formation. No fractures are identified. Prevertebral tissues are within normal limits. Odontoid is intact. IMPRESSION: Severe cervical spondylosis. No acute bony abnormality is detected. Dictated on workstation # [id number] Dict: 03/11/18 1419 Trans: 03/11/18 1427 [facility] [id number] Interpreted by: АЛЕКСАНДР WATERS MD Electronically signed by: Departure Impression Primary Impression: Scalp hematoma Qualified Codes: S00.03XA - Contusion of scalp, initial encounter Additional Impressions: Concussion Qualified Codes: S06.0X0A - Concussion without loss of consciousness, initial encounter Bronchitis Disposition: XF SNF Condition: Stable Departure-Patient Inst. Decision time for Depature: 14:11 Referrals: JOLLY DELNAEY MD (PCP) Primary Care Physician STEPHANIE CHRISTIANSEN (Family) Primary Care Physician Patient Instructions: Acute Bronchitis, Adult (DC), Concussion, Adult (DC) Add. Discharge Instructions: 1. Antibiotics as directed 2. Follow-up with your doctor next week 3. Tylenol and Motrin as needed for headache. All discharge instructions reviewed with patient and/or family. Voiced understanding. Scripts Cefdinir (Cefdinir) 300 Mg Capsule 300 MG PO BID, #14 CAP Prov: BRIAN HUGO APRN 03/11/18 BRIAN HUGO APRN Mar 11, 2018 13:45
--- OUTSIDE RECORDS SUMMARY | 2018-03-11 13:51 | XMS REPORT | Continuity of Care Document ---
Author Author [facility] Address Unknown Phone Unavailable Allergies [...] Yes Hydrocodone Drug Allergy 03/26/2012 Yes acetaminophen [id number] Drug Allergy Moderate N/A 10/26/2017 Medications Medication [...] K 338.4 CHRONIC PAIN SYNDROME 10/10/2008 ARSEN STAFF PHYSICIAN, SIMRAN 338.4 CHRONIC PAIN SYNDROME 10/10/2008 ARSEN STAFF PHYSICIAN, SIMRAN 338.4 CHRONIC PAIN SYNDROME 10/10/2008 SHAW [...] Vomiting 12/13/2008 787.91 Diarrhea 12/13/2008 SHAW DO, CAHCORRO K [...] DO, CACHORRO K 787.91 Diarrhea 12/13/2008 ARSEN STAFF PHYSICIAN, SIMRAN 465.9 Upper Respiratory Infection 12/13/2008 ARSEN STAFF PHYSICIAN, SIMRAN 787.03 Vomiting 12/13/2008 ARSEN STAFF PHYSICIAN, SIMRAN 787.91 Diarrhea 12/13/2008 ARSEN STAFF PHYSICIAN, SIMRAN 465.9 Upper Respiratory Infection 12/13/2008 ARSEN STAFF PHYSICIAN, SIMRAN 787.03 Vomiting 12/13/2008 ARSEN STAFF PHYSICIAN, SIMRAN 787.91 Diarrhea 12/13/2008 SHAW DO, CACHORRO K 465.9 Upper Respiratory Infection 12/13/2008 SHAW DO, CACHORRO K 787.03 Vomiting 12/13/2008 HSAW DO, CACHORRO K 787.91 Diarrhea 12/13/2008 CLARIBEL RAMEY MD 465.9 Upper Respiratory Infection 12/13/2008 CLARIBEL RAMEY MD 787.03 Vomiting 12/13/2008 CLARBIEL RAMEY MD 787.91 Diarrhea 12/13/2008 STEPHANIE CHRISTIANSEN APRN 465.9 Upper Respiratory Infection 12/13/2008 ЕЛЕНА STAFF PHYSICIAN, STEPHANIE S 787.03 Vomiting 12/13/2008 ЕЛЕНА MUÑOZ, STEPHANIE S 787.91 Diarrhea 12/13/2008 JOLLY DELANEY MD 465.9 Upper Respiratory Infection 12/13/2008 JOLLY DELANEY MD 787.03 Vomiting 12/13/2008 JOLLY DELANEY MD 787.91 Diarrhea 12/13/2008 ЕЛЕНА MUÑOZ, STEPHANIE S 465.9 Upper Respiratory Infection 12/13/2008 ЕЛЕНА MUÑOZ, STEPHANIE S 787.03 Vomiting 12/13/2008 ЕЛЕНА STAFF PHYSICIAN, STEPHANIE S 787.91 Diarrhea 12/15/2008 SHAW DO, [...] 307.47 SI DYSSOMNIA NOS 12/15/2008 SHAW DO, CACHRORO K 311 MO DEPRESS NOS 12/15/2008 VENUS PHD, JE Cabrera 307.47 SI DYSSOMNIA NOS 12/15/2008 EVNUS PHD, JE Cabrera 311 MO DEPRESS NOS 12/15/2008 VENUS PHD, JE Cabrera 307.47 SI DYSSOMNIA NOS 12/15/2008 VENUS PHD, JE Cabrera 311 MO DEPRESS NOS 12/15/2008 SHAW DO, CACHORRO K 307.47 SI DYSSOMNIA NOS 12/15/2008 SHAW DO, CACHORRO K 311 MO DEPRESS NOS 12/15/2008 ARSEN STAFF PHYSICIAN, SIMRAN 307.47 SI DYSSOMNIA NOS 12/15/2008 ARSEN STAFF PHYSICIAN, SIMRAN 311 MO DEPRESS NOS 12/15/2008 ARSEN STAFF PHYSICIAN, SIMRAN 307.47 SI DYSSOMNIA NOS 12/15/2008 ARSEN STAFF PHYSICIAN, SIMRAN 311 MO DEPRESS NOS 12/15/2008 SHAW [...] DIABETES MELLITUS POORLY CONTROLLED 12/28/2008 SHAW DO CACHRORO K 577.1 CHRONIC PANCREATITIS 12/28/2008 SHAW DO [...] K 788.7 Penile Discharge 01/04/2009 VENUS PHD, EJ Cabrera 788.7 Penile Discharge 01/04/2009 VENUS SUN, JE Cabrera 788.7 Penile Discharge 01/04/2009 SHAW DO, CACHORRO K 788.7 Penile Discharge 01/04/2009 ARSEN STAFF PHYSICIAN, SIMRAN 788.7 Penile Discharge 01/04/2009 ARSEN STAFF PHYSICIAN, SIMRAN 788.7 Penile Discharge 01/04/2009 SHAW DO, [...] DO, CACHORRO K 302.72 IMPOTENCE 02/15/2009 ARSEN STAFF PHYSICIAN, SIMRAN 302.72 IMPOTENCE 02/15/2009 ARSEN STAFF PHYSICIAN, SIMRAN 302.72 IMPOTENCE 02/15/2009 SHAW DO, CACHORRO [...] CACHORRO K 724.5 Backache Unspecified 03/20/2009 ARSEN STAFF PHYSICIAN, SIMRAN 724.5 Backache Unspecified 03/20/2009 ARSEN STAFF PHYSICIAN, SIMRAN 724.5 Backache Unspecified 03/20/2009 SHAW DO, [...] CACHORRO K 304.10 SA SEDATIVE DEP 06/09/2009 SAHW DO, CACHORRO K 316 PF PSYCHIC FACTORS [...] PF PSYCHIC FACTORS MED COND 06/09/2009 ARSEN STAFF PHYSICIAN, SIMRAN 304.10 SA SEDATIVE DEP 06/09/2009 ARSEN STAFF PHYSICIAN, SIMRAN 316 PF PSYCHIC FACTORS MED COND 06/09/2009 ARSEN STAFF PHYSICIAN, SIMRAN 304.10 SA SEDATIVE DEP 06/09/2009 ARSEN STAFF PHYSICIAN, SIMRAN 316 PF PSYCHIC FACTORS MED COND 06/09/2009 SHAW DO, CACHORRO K 304.10 SA SEDATIVE DEP 06/09/2009 SHAW DO, CACHORRO K 316 PF PSYCHIC FACTORS MED COND 06/09/2009 TANVIR JAMES, CLARIBEL Braun 304.10 SA SEDATIVE DEP 06/09/2009 CLARIBEL RAMEY MD 316 PF PSYCHIC FACTORS MED COND 06/09/2009 STEPHANIE CHRISTIANSEN APRN 304.10 SA SEDATIVE DEP 06/09/2009 ЕЛЕНА STAFF PHYSICIAN, STEPHANIE S 316 PF PSYCHIC FACTORS MED COND 06/09/2009 JOLLY DELANEY MD 304.10 SA SEDATIVE DEP 06/09/2009 JOLLY DELANEY MD 316 PF PSYCHIC FACTORS MED COND 06/09/2009 ЕЛЕНА STAFF PHYSICIAN, STEPHANIE S 304.10 SA SEDATIVE DEP 06/09/2009 ЕЛЕНА STAFF PHYSICIAN, STEPHANIE S 316 PF PSYCHIC FACTORS MED [...] K 304.00 SA OPIOID DEPENDENCE 08/07/2009 ARSEN STAFF PHYSICIAN, SIMRAN 244.9 HYPOTHYROIDISM 08/07/2009 ARSEN STAFF PHYSICIAN, SIMRAN 304.00 SA OPIOID DEPENDENCE 08/07/2009 ARSEN STAFF PHYSICIAN, SIMRAN 244.9 HYPOTHYROIDISM 08/07/2009 ARSEN STAFF PHYSICIAN, SIMRAN 304.00 SA OPIOID DEPENDENCE 08/07/2009 SHAW DO, CACHORRO K 244.9 HYPOTHYROIDISM 08/07/2009 SHAW DO, CACHORRO K 304.00 SA OPIOID DEPENDENCE 08/07/2009 TANVIR JAMES, CLARIBEL N 244.9 HYPOTHYROIDISM 08/07/2009 CLARIBEL RAMEY MD N 304.00 SA OPIOID DEPENDENCE 08/07/2009 ЕЛЕНА STAFF PHYSICIAN, STEPHANIE S 244.9 HYPOTHYROIDISM 08/07/2009 ЕЛЕНА STAFF PHYSICIAN, STEPHANIE S 304.00 SA OPIOID DEPENDENCE 08/07/2009 [...] 461.0 Acute Maxillary Sinusitis 08/16/2009 SHAW DO, CACOHRRO K 780.2 Syncope And Collapse 08/16/2009 SHAW [...] CACHORRO K 461.0 Acute Maxillary Sinusitis 08/16/2009 SAHW DO, CACHORRO K 780.2 Syncope And Collapse [...] K 780.2 Syncope And Collapse 08/16/2009 ARSEN STAFF PHYSICIAN, SIMRAN 414.01 CAD 08/16/2009 ARSEN STAFF PHYSICIAN, SIMRAN 443.9 PERIPHERAL ARTERIAL DISEASE 08/16/2009 ARSEN STAFF PHYSICIAN, SIMRAN 458.0 Orthostatic Hypotension 08/16/2009 ARSEN STAFF PHYSICIAN, SIMRAN 461.0 Acute Maxillary Sinusitis 08/16/2009 ARSEN STAFF PHYSICIAN, SIMRAN 780.2 Syncope And Collapse 08/16/2009 ARSEN STAFF PHYSICIAN, SIMRAN 414.01 CAD 08/16/2009 ARSEN STAFF PHYSICIAN, SIMRAN 443.9 PERIPHERAL ARTERIAL DISEASE 08/16/2009 ARSEN STAFF PHYSICIAN, SIMRAN 458.0 Orthostatic Hypotension 08/16/2009 ARSEN STAFF PHYSICIAN, SIMRAN 461.0 Acute Maxillary Sinusitis 08/16/2009 ARSEN STAFF PHYSICIAN, SIMRAN 780.2 Syncope And Collapse 08/16/2009 SHAW [...] 272.4 HYPERLIPIDEMIA HYPERLIPOPROTEINEMIAS (Old Classification) 12/06/2009 ARSEN STAFF PHYSICIAN, SIMRAN 250.60 DIABETES MELLITUS DIABETIC PERIPHERAL NEUROPATHY 12/06/2009 ARSEN STAFF PHYSICIAN, SIMRAN 272.4 HYPERLIPIDEMIA HYPERLIPOPROTEINEMIAS (Old Classification) 12/06/2009 ARSEN STAFF PHYSICIAN, SIMRAN 250.60 DIABETES MELLITUS DIABETIC PERIPHERAL NEUROPATHY 12/06/2009 ARSEN STAFF PHYSICIAN, SIMRAN 272.4 HYPERLIPIDEMIA HYPERLIPOPROTEINEMIAS (Old Classification) 12/06/2009 [...] 296.90 Unspecified Episodic Mood Disorder 02/01/2010 ARSEN STAFF PHYSICIAN, SIMRAN 296.90 Unspecified Episodic Mood Disorder 02/01/2010 ARSEN STAFF PHYSICIAN, SIMRAN 296.90 Unspecified Episodic Mood Disorder 02/01/2010 [...] 789.00 Abdominal Pain Unspecified Site 02/07/2010 ARSEN STAFF PHYSICIAN, SIMRAN 789.00 Abdominal Pain Unspecified Site 02/07/2010 ARSEN STAFF PHYSICIAN, SIMRAN 789.00 Abdominal Pain Unspecified Site 02/07/2010 [...] E849.0 02/16/2010 Ot E888.9 04/16/2010 SHAW DO, CACOHRRO K 112.0 CANDIDIASIS OF MOUTH 04/16/2010 112.0 [...] DISORDER RECURRENT EPISODE UNSPECIFIED DEGREE 06/07/2010 ARSEN STAFF PHYSICIAN, SIMRAN 296.30 MAJOR DEPRESSIVE AFFECTIVE DISORDER RECURRENT [...] K 296.32 MO DEPRESSIVE RECURRENT MODERATE 07/03/2010 SAHW DO, CACHORRO K 296.32 MO DEPRESSIVE RECURRENT MODERATE 07/03/2010 SHAW DO, CACHORRO K 296.32 MO DEPRESSIVE RECURRENT MODERATE 07/03/2010 JOLLY DELANEY MD 296.32 MO DEPRESSIVE RECURRENT MODERATE 07/03/2010 SHAW DO, CACHORRO K 296.32 MO DEPRESSIVE RECURRENT MODERATE 07/03/2010 SHAW DO, CAHCORRO K 296.32 MO DEPRESSIVE RECURRENT MODERATE 07/03/2010 [...] DO CACHORRO K 304.20 COCAINE DEPENDENCE 12/03/2010 ARSNE MUÑOZ SIMRAN 304.20 COCAINE DEPENDENCE 12/03/2010 ARSEN [...] JE Cabrera 786.52 Chest Wall Pain 01/17/2011 EVNUS SUN, JE Cabrera 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 01/17/2011 JE DONOVAN PHD 786.52 Chest Wall Pain 01/17/2011 VENUS SUN, JE Cabrera 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 01/17/2011 SHAW DO CACHORRO K 786.52 Chest Wall Pain 01/17/2011 SHAW DO, CACHORRO K 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 01/17/2011 ARSEN STAFF PHYSICIAN, SIMRAN 786.52 Chest Wall Pain 01/17/2011 ARSEN STAFF PHYSICIAN, SIMRAN 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 01/17/2011 ARSEN STAFF PHYSICIAN, SIMRAN 786.52 Chest Wall Pain 01/17/2011 ARSEN STAFF PHYSICIAN, SIMRAN 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 HISTORY OF METHICILLIN RESISTANT [...] CACHORRO K 789.06 ABDOMINAL PAIN EPIGASTRIC 03/25/2011 HSAW DO, CACHORRO K V76.51 COLON CANCER SCREENING [...] K V76.51 COLON CANCER SCREENING 03/25/2011 ARSEN STAFF PHYSICIAN, SIMRAN 789.06 Abdominal Pain Epigastric 03/25/2011 ARSEN STAFF PHYSICIAN, SIMARN V76.51 COLON CANCER SCREENING 03/25/2011 ARSEN STAFF PHYSICIAN, SIMRAN 789.06 Abdominal Pain Epigastric 03/25/2011 ARSEN STAFF PHYSICIAN, SIMRAN V76.51 COLON CANCER SCREENING 03/25/2011 SHAW [...] K V58.69 MEDICATION HIGH RISK 04/08/2011 ARSEN STAFF PHYSICIAN, SIMRAN V58.69 MEDICATION HIGH RISK 04/08/2011 ARSEN STAFF PHYSICIAN, SIMRAN V58.69 MEDICATION HIGH RISK 04/08/2011 SHAW [...] CACHORRO K 466.0 Acute Bronchitis 06/20/2011 ARSEN STAFF PHYSICIAN, SIMRAN 466.0 Acute Bronchitis 06/20/2011 ARSEN STAFF PHYSICIAN, SIMRAN 466.0 Acute Bronchitis 06/20/2011 SHAW DO, [...] MUÑOZ 780.4 Dizziness And Vertigo 12/11/2011 ARSEN STAFF PHYSICIANSIMRAN Braun 780.4 Dizziness And Vertigo 12/11/2011 SHAW [...] K 780.09 OR DELERIUM NOS 03/19/2012 ARSEN STAFF PHYSICIANSIMRAN Braun 293.0 DELIRIUM DUE TO CONDITIONS CLASSIFIED ELSEWHERE 03/19/2012 ARSEN STAFF PHYSICIAN, SIMRAN 780.09 OR DELERIUM NOS 03/19/2012 ARSEN STAFF PHYSICIAN, SIMRAN 293.0 DELIRIUM DUE TO CONDITIONS CLASSIFIED ELSEWHERE 03/19/2012 ARSEN STAFF PHYSICIAN, SIMRAN 780.09 OR DELERIUM NOS 03/19/2012 CACHORRO SHAW DO 293.0 DELIRIUM DUE TO CONDITIONS CLASSIFIED ELSEWHERE 03/19/2012 CACHORRO SHWA DO 780.09 OR DELERIUM NOS 03/19/2012 CLARIBEL [...] NEC 03/21/2012 Ot 414.01 CORONARY ATHEROSCLEROSIS OF [place] CORON 03/21/2012 Ot 433.10 CAROTID ARTERY OCCLUSION [...] Braun 780.50 SLEEP DISTURBANCE, UNSPECIFIED 03/25/2012 STEPHANIE CHRSITIANSEN APRN 780.50 SLEEP DISTURBANCE, UNSPECIFIED 03/25/2012 JOLLY [...] DO, CACHORRO K 780.79 fatigue 09/09/2012 ARSEN STAFF PHYSICIAN, SIMRAN 780.79 fatigue 09/09/2012 ARSEN STAFF PHYSICIAN, SIMRAN 780.79 fatigue 09/09/2012 SHAW DO, CACHORRO [...] 724.79 OTHER DISORDERS OF COCCYX 11/02/2012 ARSEN STAFF PHYSICIAN, SIMRAN 715.16 OSTEOARTHROSIS LOCALIZED PRIMARY INVOLVING LOWER LEG 11/02/2012 ARSEN STAFF PHYSICIAN, SIMRAN 724.79 OTHER DISORDERS OF COCCYX 11/02/2012 ARSEN STAFF PHYSICIAN, SIMRAN 715.16 OSTEOARTHROSIS LOCALIZED PRIMARY INVOLVING LOWER LEG 11/02/2012 ARSEN STAFF PHYSICIAN, SIMRAN 724.79 OTHER DISORDERS OF COCCYX 11/02/2012 [...] 728.87 MUSCLE WEAKNESS (GENERALIZED) 01/19/2013 VALERIA CASH CACHRORO K 782.0 DISTURBANCE OF SKIN SENSATION 01/19/2013 [...] K 782.0 DISTURBANCE OF SKIN SENSATION 01/19/2013 USMIT SHAW DOA K V15.81 PERSONAL HISTORY OF [...] SIMRAN 728.87 MUSCLE WEAKNESS (GENERALIZED) 01/19/2013 ARSEN STAFF PHYSICIAN, SIMRAN 782.0 DISTURBANCE OF SKIN SENSATION 01/19/2013 ARSEN STAFF PHYSICIAN, SIMRAN V15.81 PERSONAL HISTORY OF NONCOMPLIANCE WITH [...] TREATMENT PRESENTING HAZARDS TO HEALTH 01/19/2013 ЕЛЕНА STAFF PHYSICIAN, STEPHANIE S 728.87 MUSCLE WEAKNESS (GENERALIZED) 01/19/2013 ALBERT CHRISTIANSEN APRNNDA S 782.0 DISTURBANCE OF SKIN SENSATION 01/19/2013 ЕЛЕНА MUÑOZ STEPHANIE S V15.81 PERSONAL HISTORY OF NONCOMPLIANCE WITH MEDICAL TREATMENT PRESENTING HAZARDS TO HEALTH 01/26/2013 SAHW DO, CACHORRO K 724.5 BACK PAIN, GENERAL 02/02/2013 SHAW DO, CACHORRO K 724.5 BACK PAIN, GENERAL 02/02/2013 SHAW DO, CACHORRO K 724.5 BACK PAIN, GENERAL 02/02/2013 SHAW DO, CACHORRO K 724.5 BACK PAIN, GENERAL 02/02/2013 SHAW DO, CACOHRRO K 724.5 BACK PAIN, GENERAL 02/02/2013 SHAW [...] K 724.5 BACK PAIN, GENERAL 02/02/2013 ARSEN STAFF PHYSICIAN, SIMRAN 724.5 BACK PAIN, GENERAL 02/02/2013 ARSEN STAFF PHYSICIAN, SIMRAN 724.5 BACK PAIN, GENERAL 02/02/2013 SHAW DO, CACHORRO K 724.5 BACK PAIN, GENERAL 02/02/2013 CLARIBEL RAMEY MD 724.5 BACK PAIN, GENERAL 02/02/2013 ALBERT CHRISTIANSEN APRNNDA S 724.5 BACK PAIN, GENERAL 02/02/2013 JOLLY DELANEY MD4.5 BACK PAIN, GENERAL 02/02/2013 ALBERT CHRISTIANSEN APRNNDA S 724.5 BACK PAIN, GENERAL 02/16/2013 BRIAN HUGO STAFF PHYSICIAN Ot 465.9 ACUTE URI NOS 02/16/2013 BRIAN HUGO STAFF PHYSICIAN Ot 719.41 JOINT PAIN-SHLDER 06/03/2013 SHAW DO, [...] APRN S 285.9 ANEMIA 06/23/2013 BRIAN HUGO STAFF PHYSICIAN Ot 305.50 OPIOID ABUSE-UNSPEC 06/23/2013 BRIAN HUGO STAFF PHYSICIAN Ot 780.97 ALTERED MENTAL STATUS 06/28/2013 SHAW [...] SHAW DO Ot 414.01 CORONARY ATHEROSCLEROSIS OF [place] CORON 06/28/2013 CACHORRO SHAW DO Ot 433.10 [...] ABNORMAL LFT (LIVER FUNCTION TEST) 07/19/2013 ARSEN STAFF PHYSICIAN, SIMRAN 276.1 HYPONATREMIA 07/19/2013 ARSEN WANDA SIMRAN 790.6 ABNORMAL LFT (LIVER FUNCTION TEST) 07/19/2013 ARSEN STAFF PHYSICIAN, SIMRAN 276.1 HYPONATREMIA 07/19/2013 ARSEN STAFF PHYSICIAN, SIMRAN 790.6 ABNORMAL LFT (LIVER FUNCTION TEST) [...] Ot 305.1 TOBACCO USE DISORDER 09/10/2013 EMELIA BROJAS Ot 355.9 MONONEURITIS NOS 09/10/2013 EMELIA BORJAS Ot 401.9 HYPERTENSION NOS 09/10/2013 EMELIA BORJAS Ot 412 OLD MYOCARDIAL INFARCT 09/10/2013 EMELIA BORJAS Ot 440.24 ATHEROSCL [place] ARTERIES EXTREMITIES W 09/10/2013 EMELIA BROJAS Ot 496 CHR AIRWAY OBSTRUCT NEC 09/10/2013 [...] SHAW DO Ot 414.01 CORONARY ATHEROSCLEROSIS OF [place] CORON 01/06/2014 CACHORRO SHAW DO Ot 414.8 CHR ISCHEMIC HRT DIS NEC 01/06/2014 CACHORRO SHAW DO Ot 433.10 CAROTID ARTERY OCCLUSION W O CEREBRAL IN 01/06/2014 CACHORRO SHAW DO Ot 433.30 MULT BILTRAL ARTERY OCCLUSION WO CEREBRA 01/06/2014 CACHORRO SHAW DO Ot 438.89 OTH LATE EFFECT-CEREBROVASCULAR DISEASE 01/06/2014 CACHORRO SHAW DO Ot 440.20 ATHEROSCLEROSIS [place] ARTERIES EXTREMIT 01/06/2014 CACHORRO SHAW DO Ot [...] RAMEY MD Ot 414.01 CORONARY ATHEROSCLEROSIS OF [place] CORON 01/20/2014 CLARIBEL RAMEY MD Ot 433.10 CAROTID ARTERY OCCLUSION W O CEREBRAL IN 01/20/2014 CLARIBEL RAMEY MD Ot 433.30 MULT BILTRAL ARTERY OCCLUSION WO CEREBRA 01/20/2014 CLARIBEL RAMEY MD Ot 438.89 OTH LATE EFFECT-CEREBROVASCULAR DISEASE 01/20/2014 CLARIBEL RAMEY MD Ot 440.20 ATHEROSCLEROSIS [place] ARTERIES EXTREMIT 01/20/2014 CLARIBEL RAMEY MD Ot [...] STEPHANIE CHRISTIANSENP Ot E05.90 03/16/2015 STEPHANIE CHRISTIANSEN SCIENTIFIC TECHNICAL WRITER Ot E05.90 03/21/2015 STEPHANIE CHRISTIANSEN SCIENTIFIC TECHNICAL WRITER Ot E05.90 02/09/2016 Ot 433.10 CAROTID ARTERY OCCLUSION W O CEREBRAL IN 02/09/2016 Ot 433.30 MULT BILTRAL ARTERY OCCLUSION WO CEREBRA 02/09/2016 STEPHANIE CHRISTIANSEN SCIENTIFIC TECHNICAL WRITER Ot E05.90 THYROTOXICOSIS, UNSP WITHOUT THYROTOXIC 02/12/2016 [...] PERIPHERAL VASCULAR DISEASE, UNSPECIFIED 05/28/2016 STEPHANIE CHRISTIANSEN SCIENTIFIC TECHNICAL WRITER Ot I73.9 PERIPHERAL VASCULAR DISEASE, UNSPECIFIED 06/05/2016 ELAINA JAMES, JOLLY Alcantara Ot Z87.440 PERSONAL HISTORY OF URINARY (TRACT) INFE 06/12/2016 BRIAN HUGO STAFF PHYSICIAN Ot 305.50 OPIOID ABUSE-UNSPEC 06/12/2016 BRIAN HUGO STAFF PHYSICIAN Ot 780.97 ALTERED MENTAL STATUS 06/17/2016 STEPHANIE CHRISTIANSEN Ot I73.9 PERIPHERAL VASCULAR DISEASE, UNSPECIFIED 06/19/2016 STEPHANIE CHRISTAINSEN SCIENTIFIC TECHNICAL WRITER Ot I73.9 PERIPHERAL VASCULAR DISEASE, UNSPECIFIED 06/25/2016 [...] WESLY ZHANG I25.10 ATHSCL HEART DISEASE OF [place] CORONARY ARTERY W/O ANG PCTRS 07/06/2016 WESLY [...] 07/19/2016 DONG DO, CUCO K Ot Z79.4 INSTRUMENT TECHNICIAN APPRENTICE (CURRENT) USE OF INSULIN 07/19/2016 DONG DO, CUCO K Ot Z79.82 HALFWAY (CURRENT) USE OF ASPIRIN 07/19/2016 DONG DO, CUCO K Ot Z79.899 OTHER INSTRUMENT TECHNICIAN APPRENTICE (CURRENT) DRUG THERAPY 07/19/2016 DONG DO, CUCO [...] WEAKNESS 07/22/2016 UCCO UMANA DO Ot Z79.4 INSTRUMENT TECHNICIAN APPRENTICE (CURRENT) USE OF INSULIN 07/22/2016 CUCO UMANA DO Ot Z79.82 HALFWAY (CURRENT) USE OF ASPIRIN 07/22/2016 CUCO UMANA DO Ot Z79.899 OTHER HALFWAY (CURRENT) DRUG THERAPY 07/22/2016 CUCO UMANA DO Ot Z86.73 PRSNL HX OF TIA (TIA), AND CEREB INFRC W 07/22/2016 CUCO UMANA DO Ot Z95.5 PRESENCE OF CORONARY ANGIOPLASTY IMPLANT 01/12/2017 BRIAN HUOG STAFF PHYSICIAN Ot 305.50 OPIOID ABUSE-UNSPEC 01/12/2017 BRIAN HUGO STAFF PHYSICIAN Ot 780.97 ALTERED MENTAL STATUS 03/05/2017 BRIDGER JUSTICE MD Ot E03.9 HYPOTHYROIDISM, UNSPECIFIED 03/05/2017 BRIDGER JUSTICE MD Ot E11.9 TYPE 2 DIABETES MELLITUS WITHOUT COMPLIC 03/05/2017 BRIDGER JUSTICE MD Ot E78.5 HYPERLIPIDEMIA, UNSPECIFIED 03/05/2017 BRIDGER JUSTICE MD Ot F17.210 NICOTINE DEPENDENCE, CIGARETTES, UNCOMPL 03/05/2017 BRIDGER JUSTICE MD Ot I10 ESSENTIAL (PRIMARY) HYPERTENSION 03/05/2017 BRIDGER JUSTICE MD Ot I25.10 ATHSCL HEART DISEASE OF [place] CORONARY 03/05/2017 BRIDGER JUSTICE MD Ot I25.2 OLD MYOCARDIAL INFARCTION 03/05/2017 BRIDGER JUSTICE MD Ot I69.320 APHASIA FOLLOWING CEREBRAL INFARCTION 03/05/2017 BRIDGER JUSTICE MD Ot I69.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 03/05/2017 BRIDGER JUSTICE MD Ot I70.201 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 03/05/2017 BRIDGER JUSTICE MD Ot I70.245 ATHSCL [place] ARTERIES OF LEFT LEG W ULC 03/05/2017 BRIDGER JUSTICE MD Ot L97.529 NON-PRESSURE CHRONIC ULCER OTH PRT LEFT 03/05/2017 BRIDGER JUSTICE MD Ot Z79.02 HALFWAY (CURRENT) USE OF ANTITHROMBOTI 03/05/2017 BRIDGER JUSTICE MD Ot Z79.4 HALFWAY (CURRENT) USE OF INSULIN 03/05/2017 BRIDGER JUSTICE MD, Ot Z79.899 OTHER INSTRUMENT TECHNICIAN APPRENTICE (CURRENT) DRUG THERAPY 03/05/2017 BRIDGER JUSTICE MD Ot Z91.14 PATIENT'S OTHER NONCOMPLIANCE WITH MEDIC 03/19/2017 MARLENY PRIETO Ot I70.203 UNSP ATHSCL [place] ARTERIES OF [facility] 03/19/2017 MARLENY PRIETO Ot 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 04/09/2017 MARLENY PRIETO Ot I70.203 UNSP ATHSCL [place] ARTERIES OF [facility] 04/09/2017 MARLENY PRIETO Ot 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 04/10/2017 MARLENY PRIETO Ot I70.203 UNSP ATHSCL [place] ARTERIES OF [facility] 04/10/2017 MARLENY PRIETO Ot I70.8 [...] 05/07/2017 MARLENY PRIETO Ot I70.203 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 05/07/2017 ALINA RODRIGUEZ, MARLENY [...] Q Ot I25.10 ATHSCL HEART DISEASE OF [place] CORONARY 05/12/2017 ZULLY DPM, [place] Q Ot I25.2 OLD MYOCARDIAL INFARCTION 05/12/2017 ZULLY DPM, [place] Q Ot I73.9 PERIPHERAL VASCULAR DISEASE, UNSPECIFIED 05/12/2017 ZULLY DPM, [place] Q Ot K21.9 GASTRO-ESOPHAGEAL REFLUX DISEASE WITHOUT 05/12/2017 ZULLY DPM, [place] Q Ot M86.672 OTHER CHRONIC OSTEOMYELITIS, LEFT ANKLE 05/12/2017 ZULLY DPM, [place] Q Ot Z79.02 INSTRUMENT TECHNICIAN APPRENTICE (CURRENT) USE OF ANTITHROMBOTI 05/12/2017 ZULLY DPM, [place] Q Ot Z79.4 INSTRUMENT TECHNICIAN APPRENTICE (CURRENT) USE OF INSULIN 05/12/2017 ZULLY DPM, [place] Q Ot Z79.82 HALFWAY (CURRENT) USE OF ASPIRIN 05/12/2017 ZULLY DPM, [place] Q Ot Z79.899 OTHER INSTRUMENT TECHNICIAN APPRENTICE (CURRENT) DRUG THERAPY 05/12/2017 ZULLY DPM, [place] [...] Q Ot I25.10 ATHSCL HEART DISEASE OF [place] CORONARY 05/12/2017 ZULLY DPM, [place] Q Ot I25.2 OLD MYOCARDIAL INFARCTION 05/12/2017 ZULLY DPM, [place] Q Ot I73.9 PERIPHERAL VASCULAR DISEASE, UNSPECIFIED 05/12/2017 ZULLY DPM, [place] Q Ot K21.9 GASTRO-ESOPHAGEAL REFLUX DISEASE WITHOUT 05/12/2017 ZULLY DPM, [place] Q Ot M86.672 OTHER CHRONIC OSTEOMYELITIS, LEFT ANKLE 05/12/2017 ZULLY DPM, [place] Q Ot Z79.02 HALFWAY (CURRENT) USE OF ANTITHROMBOTI 05/12/2017 ZULLY DPM, [place] Q Ot Z79.4 HALFWAY (CURRENT) USE OF INSULIN 05/12/2017 ZULLY DPM, [place] Q Ot Z79.82 HALFWAY (CURRENT) USE OF ASPIRIN 05/12/2017 ZULLY DPM, [place] Q Ot Z79.899 OTHER INSTRUMENT TECHNICIAN APPRENTICE (CURRENT) DRUG THERAPY 05/12/2017 ZULLY DPM, [place] [...] Q Ot I25.10 ATHSCL HEART DISEASE OF [place] CORONARY 05/16/2017 ZULLY DPM, [place] Q Ot I25.2 OLD MYOCARDIAL INFARCTION 05/16/2017 ZULLY DPM, [place] Q Ot I73.9 PERIPHERAL VASCULAR DISEASE, UNSPECIFIED 05/16/2017 ZULLY DPM, [place] Q Ot K21.9 GASTRO-ESOPHAGEAL REFLUX DISEASE WITHOUT 05/16/2017 ZULLY DPM, [place] Q Ot M86.672 OTHER CHRONIC OSTEOMYELITIS, LEFT ANKLE 05/16/2017 ZULLY DPM, [place] Q Ot Z79.02 HALFWAY (CURRENT) USE OF ANTITHROMBOTI 05/16/2017 ZULLY DPM, [place] Q Ot Z79.4 INSTRUMENT TECHNICIAN APPRENTICE (CURRENT) USE OF INSULIN 05/16/2017 ZULLY DPM, [place] Q Ot Z79.82 HALFWAY (CURRENT) USE OF ASPIRIN 05/16/2017 ZULLY DPM, [place] Q Ot Z79.899 OTHER INSTRUMENT TECHNICIAN APPRENTICE (CURRENT) DRUG THERAPY 05/16/2017 ZULLY DPM, [place] [...] Q Ot I25.10 ATHSCL HEART DISEASE OF [place] CORONARY 05/30/2017 ZULLY DPM, [place] Q Ot I25.2 OLD MYOCARDIAL INFARCTION 05/30/2017 ZULLY DPM, [place] Q Ot I73.9 PERIPHERAL VASCULAR DISEASE, UNSPECIFIED 05/30/2017 ZULLY DPM, [place] Q Ot K21.9 GASTRO-ESOPHAGEAL REFLUX DISEASE WITHOUT 05/30/2017 ZULLY DPM, [place] Q Ot M86.672 OTHER CHRONIC OSTEOMYELITIS, LEFT ANKLE 05/30/2017 ZULLY DPM, [place] Q Ot Z79.02 HALFWAY (CURRENT) USE OF ANTITHROMBOTI 05/30/2017 ZULLY DPM, [place] Q Ot Z79.4 HALFWAY (CURRENT) USE OF INSULIN 05/30/2017 ZULLY DPM, [place] Q Ot Z79.82 HALFWAY (CURRENT) USE OF ASPIRIN 05/30/2017 ZULLY DPM, [place] Q Ot Z79.899 OTHER HALFWAY (CURRENT) DRUG THERAPY 05/30/2017 ZULLY DPM, [place] [...] Q Ot I25.10 ATHSCL HEART DISEASE OF [place] CORONARY 06/16/2017 ZULLY DPM, [place] Q Ot I25.2 OLD MYOCARDIAL INFARCTION 06/16/2017 ZULLY DPM, [place] Q Ot I73.9 PERIPHERAL VASCULAR DISEASE, UNSPECIFIED 06/16/2017 ZULLY DPM, [place] Q Ot K21.9 GASTRO-ESOPHAGEAL REFLUX DISEASE WITHOUT 06/16/2017 ZULLY DPM, [place] Q Ot M86.672 OTHER CHRONIC OSTEOMYELITIS, LEFT ANKLE 06/16/2017 ZULLY DPM, [place] Q Ot Z79.02 HALFWAY (CURRENT) USE OF ANTITHROMBOTI 06/16/2017 ZULLY DPM, [place] Q Ot Z79.4 HALFWAY (CURRENT) USE OF INSULIN 06/16/2017 ZULLY DPM, [place] Q Ot Z79.82 INSTRUMENT TECHNICIAN APPRENTICE (CURRENT) USE OF ASPIRIN 06/16/2017 ZULLY DPM, [place] Q Ot Z79.899 OTHER HALFWAY (CURRENT) DRUG THERAPY 06/16/2017 ZULLY DPM, [place] [...] Ot F17.210 NICOTINE DEPENDENCE, CIGARETTES, UNCOMPL 10/28/2017 CHRISTY STOCK MD Ot F32.9 MAJOR DEPRESSIVE DISORDER, SINGLE EPISOD 10/28/2017 CHRISTY STOCK MD, Ot F41.9 ANXIETY DISORDER, UNSPECIFIED 10/28/2017 CHRISTY STOCK MD, Ot G40.909 EPILEPSY, UNSP, NOT INTRACTABLE, WITHOUT 10/28/2017 CHRISTY STOCK MD Ot I10 ESSENTIAL (PRIMARY) HYPERTENSION 10/28/2017 CHRISTY STOCK MD, Ot I25.10 ATHSCL HEART DISEASE OF [place] CORONARY 10/28/2017 CHRISTY STOCK MD, Ot I73.9 PERIPHERAL VASCULAR DISEASE, UNSPECIFIED 10/28/2017 CHRISTY STOCK MD, Ot J44.9 CHRONIC OBSTRUCTIVE PULMONARY DISEASE, U 10/28/2017 CHRISTY STOCK MD, Ot K21.9 GASTRO-ESOPHAGEAL REFLUX DISEASE WITHOUT 10/28/2017 CHRISTY STOCK MD Ot R29.6 REPEATED FALLS 10/28/2017 CHRISTY STOCK MD, Ot Z79.4 HALFWAY (CURRENT) USE OF INSULIN 10/28/2017 CHRISTY STOCK MD, Ot Z79.82 HALFWAY (CURRENT) USE OF ASPIRIN 10/28/2017 CHRISTY STOCK [...] 01/07/2018 MARLENY PRIETO Ot I70.203 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 01/07/2018 MARLENY PRIETO Ot [...] Q Ot I25.10 ATHSCL HEART DISEASE OF [place] CORONARY 01/07/2018 ZULLY DPM, [place] Q Ot I25.2 OLD MYOCARDIAL INFARCTION 01/07/2018 ZULLY DPM, [place] Q Ot I73.9 PERIPHERAL VASCULAR DISEASE, UNSPECIFIED 01/07/2018 ZULLY DPM, [place] Q Ot K21.9 GASTRO-ESOPHAGEAL REFLUX DISEASE WITHOUT 01/07/2018 ZULLY DPM, [place] Q Ot M86.672 OTHER CHRONIC OSTEOMYELITIS, LEFT ANKLE 01/07/2018 ZULLY DPM, [place] Q Ot Z79.02 INSTRUMENT TECHNICIAN APPRENTICE (CURRENT) USE OF ANTITHROMBOTI 01/07/2018 ZULLY DPM, [place] Q Ot Z79.4 HALFWAY (CURRENT) USE OF INSULIN 01/07/2018 ZULLY DPM, [place] Q Ot Z79.82 HALFWAY (CURRENT) USE OF ASPIRIN 01/07/2018 ZULLY DPM, [place] Q Ot Z79.899 OTHER INSTRUMENT TECHNICIAN APPRENTICE (CURRENT) DRUG THERAPY 01/07/2018 ZULLY DPM, [place] Q Ot Z86.73 PRSNL HX OF TIA (TIA), AND CEREB INFRC W 01/07/2018 ZULLY DPM, [place] Q Ot Z95.5 PRESENCE OF CORONARY ANGIOPLASTY IMPLANT 01/07/2018 MARITZA ROBLERO MD Ot Z01.810 ENCOUNTER FOR PREPROCEDURAL CARDIOVASCUL 01/07/2018 JUVENTINO DONOVAN STAFF PHYSICIAN Ot E11.621 TYPE 2 DIABETES MELLITUS WITH FOOT ULCER 01/07/2018 JUVENTINO DONOVAN STAFF PHYSICIAN Ot I87.2 VENOUS INSUFFICIENCY (CHRONIC) (PERIPHER 01/07/2018 JUVENTINO DONOVAN STAFF PHYSICIAN Ot L97.512 NON-PRS CHRONIC ULCER OTH PRT RIGHT FOOT 01/07/2018 JUVENTINO DONOVAN STAFF PHYSICIAN Ot E11.621 TYPE 2 DIABETES MELLITUS WITH FOOT ULCER 01/07/2018 JUVENTINO DONOVAN STAFF PHYSICIAN Ot I87.2 VENOUS INSUFFICIENCY (CHRONIC) (PERIPHER 01/07/2018 JUVENTINO DONOVAN STAFF PHYSICIAN Ot L97.512 NON-PRS CHRONIC ULCER OTH PRT RIGHT FOOT 01/07/2018 JUVENTINO DONOVAN STAFF PHYSICIAN Ot S93.101A UNSPECIFIED SUBLUXATION OF RIGHT TOE(S), 01/07/2018 JUVENTINO DONOVAN STAFF PHYSICIAN Ot Z89.421 ACQUIRED ABSENCE OF OTHER RIGHT TOE(S) 01/08/2018 JUVENTINO DONOVAN STAFF PHYSICIAN Ot E11.621 TYPE 2 DIABETES MELLITUS WITH FOOT ULCER 01/08/2018 JUVENTINO DONOVAN STAFF PHYSICIAN Ot I87.2 VENOUS INSUFFICIENCY (CHRONIC) (PERIPHER 01/08/2018 JUVENTINO DONOVAN STAFF PHYSICIAN Ot L97.512 NON-PRS CHRONIC ULCER OTH PRT RIGHT FOOT 01/09/2018 JUVENTINO DONOVAN STAFF PHYSICIAN Ot E11.621 TYPE 2 DIABETES MELLITUS WITH FOOT ULCER 01/09/2018 JUVENTINO DONOVAN STAFF PHYSICIAN Ot I87.2 VENOUS INSUFFICIENCY (CHRONIC) (PERIPHER 01/09/2018 JUVENTINO DONOVAN R STAFF PHYSICIAN Ot L97.512 NON-PRS CHRONIC ULCER OTH PRT RIGHT FOOT 01/09/2018 JUVENTINO DONOVAN R STAFF PHYSICIAN Ot R60.0 LOCALIZED EDEMA 01/09/2018 JUVENTINO DONOVAN R STAFF PHYSICIAN Ot S91.104A UNSP OPN WND RIGHT LESSER TOE(S) W/O DAM 01/12/2018 JUVENTINO DONOVAN STAFF PHYSICIAN Ot E11.621 TYPE 2 DIABETES MELLITUS WITH FOOT ULCER 01/12/2018 JUVENTINO DONOVAN R STAFF PHYSICIAN Ot I87.2 VENOUS INSUFFICIENCY (CHRONIC) (PERIPHER 01/12/2018 VENUS JUVENTINO R STAFF PHYSICIAN Ot L97.512 NON-PRS CHRONIC ULCER OTH PRT RIGHT FOOT 01/21/2018 KENNEY MANLEY MANAGER LIGHTING Ot I73.9 PERIPHERAL VASCULAR DISEASE, UNSPECIFIED 01/21/2018 KENNEY MANLEY MANAGER LIGHTING Ot M86.9 OSTEOMYELITIS, UNSPECIFIED 01/21/2018 JUVENTINO DONOVAN R STAFF PHYSICIAN Ot E11.621 TYPE 2 DIABETES MELLITUS WITH FOOT ULCER 01/21/2018 JUVENTINO DONOVAN R STAFF PHYSICIAN Ot I87.2 VENOUS INSUFFICIENCY (CHRONIC) (PERIPHER 01/21/2018 JUVENTINO DONOVAN R STAFF PHYSICIAN Ot L97.512 NON-PRS CHRONIC ULCER OTH PRT RIGHT FOOT 01/21/2018 JUVENTINO DONOVAN R STAFF PHYSICIAN Ot S93.101A UNSPECIFIED SUBLUXATION OF RIGHT TOE(S), 01/21/2018 JUVENTINO DONOVAN R STAFF PHYSICIAN Ot Z89.421 ACQUIRED ABSENCE OF OTHER RIGHT TOE(S) 01/23/2018 JUVENTINO DONOVAN STAFF PHYSICIAN Ot E11.621 TYPE 2 DIABETES MELLITUS WITH FOOT ULCER 01/23/2018 VENUS JUVENTINO R STAFF PHYSICIAN Ot I87.2 VENOUS INSUFFICIENCY (CHRONIC) (PERIPHER 01/23/2018 VENUS JUVENTINO R STAFF PHYSICIAN Ot L97.512 NON-PRS CHRONIC ULCER OTH PRT RIGHT FOOT 01/23/2018 JUVENTINO DONOVAN R STAFF PHYSICIAN Ot S93.101A UNSPECIFIED SUBLUXATION OF RIGHT TOE(S), 01/23/2018 JUVENTINO DONOVAN R STAFF PHYSICIAN Ot Z89.421 ACQUIRED ABSENCE OF OTHER RIGHT TOE(S) 01/26/2018 JUVENTINO DONOVAN R STAFF PHYSICIAN Ot E11.621 TYPE 2 DIABETES MELLITUS WITH FOOT ULCER 01/26/2018 JUVENTINO DONOVAN R STAFF PHYSICIAN Ot I87.2 VENOUS INSUFFICIENCY (CHRONIC) (PERIPHER 01/26/2018 JUVENTINO DONOVAN R STAFF PHYSICIAN Ot L97.512 NON-PRS CHRONIC ULCER OTH PRT RIGHT FOOT 01/27/2018 VENUS JUVENTINO R STAFF PHYSICIAN Ot E11.621 TYPE 2 DIABETES MELLITUS WITH FOOT ULCER 01/27/2018 VENUS, JUVENTINO R STAFF PHYSICIAN Ot I87.2 VENOUS INSUFFICIENCY (CHRONIC) (PERIPHER 01/27/2018 VENUS JUVENTINO R STAFF PHYSICIAN Ot L97.512 NON-PRS CHRONIC ULCER OTH PRT RIGHT FOOT 01/28/2018 VENUS JUVENTINO R STAFF PHYSICIAN Ot E11.621 TYPE 2 DIABETES MELLITUS WITH FOOT ULCER 01/28/2018 VENUS JUVENTINO R STAFF PHYSICIAN Ot I87.2 VENOUS INSUFFICIENCY (CHRONIC) (PERIPHER 01/28/2018 JUVENTINO DONOVAN R STAFF PHYSICIAN Ot L97.512 NON-PRS CHRONIC ULCER OTH PRT RIGHT FOOT 01/28/2018 VENUS, JUVENTINO R STAFF PHYSICIAN Ot R60.0 LOCALIZED EDEMA 01/28/2018 VENUS, JUVENTINO R STAFF PHYSICIAN Ot S91.104A UNSP OPN WND RIGHT LESSER TOE(S) W/O DAM 02/02/2018 VENUS JUVETNINO R STAFF PHYSICIAN Ot E11.621 TYPE 2 DIABETES MELLITUS WITH FOOT ULCER 02/02/2018 VENUS JUVENTINO R STAFF PHYSICIAN Ot I87.2 VENOUS INSUFFICIENCY (CHRONIC) (PERIPHER 02/02/2018 VENUS JUVENTINO R STAFF PHYSICIAN Ot L97.512 NON-PRS CHRONIC ULCER OTH PRT RIGHT FOOT 02/03/2018 VENUS JUVENTINO R STAFF PHYSICIAN Ot E11.621 TYPE 2 DIABETES MELLITUS WITH FOOT ULCER 02/03/2018 VENUS JUVENTINO R STAFF PHYSICIAN Ot I87.2 VENOUS INSUFFICIENCY (CHRONIC) (PERIPHER 02/03/2018 VENUS JUVENTINO R STAFF PHYSICIAN Ot L97.512 NON-PRS CHRONIC ULCER OTH PRT RIGHT FOOT 02/03/2018 VENUS, JUVENTINO R STAFF PHYSICIAN Ot R60.0 LOCALIZED EDEMA 02/03/2018 VENUS, JUVENTINO R STAFF PHYSICIAN Ot S91.104A UNSP OPN WND RIGHT LESSER TOE(S) W/O DAM 02/05/2018 VENUS, JUVENTINO R STAFF PHYSICIAN Ot E11.621 TYPE 2 DIABETES MELLITUS WITH FOOT ULCER 02/05/2018 VENUS, JUVENTINO R STAFF PHYSICIAN Ot I87.2 VENOUS INSUFFICIENCY (CHRONIC) (PERIPHER 02/05/2018 VENUS JUVENTINO R STAFF PHYSICIAN Ot L97.512 NON-PRS CHRONIC ULCER OTH PRT RIGHT FOOT 02/10/2018 VENUS JUVENTINO R STAFF PHYSICIAN Ot E11.621 TYPE 2 DIABETES MELLITUS WITH FOOT ULCER 02/10/2018 VENUS, JUVENTINO R STAFF PHYSICIAN Ot I73.9 PERIPHERAL VASCULAR DISEASE, UNSPECIFIED 02/10/2018 VENUS, JUVENTINO R STAFF PHYSICIAN Ot I87.2 VENOUS INSUFFICIENCY (CHRONIC) (PERIPHER 02/10/2018 VENUS JUVENTINO R STAFF PHYSICIAN Ot L97.512 NON-PRS CHRONIC ULCER OTH PRT RIGHT FOOT 02/10/2018 VENUS JUVENTINO R STAFF PHYSICIAN Ot M86.9 OSTEOMYELITIS, UNSPECIFIED 02/10/2018 MANLEYKENNEY A MANAGER LIGHTING Ot I73.9 PERIPHERAL VASCULAR DISEASE, UNSPECIFIED 02/10/2018 MANLEYNEHEMIAHA A MANAGER LIGHTING Ot M86.9 OSTEOMYELITIS, UNSPECIFIED 02/11/2018 JUVENTINO DONOVAN R STAFF PHYSICIAN Ot E11.621 TYPE 2 DIABETES MELLITUS WITH FOOT ULCER 02/11/2018 VENUS JUVENTINO R STAFF PHYSICIAN Ot I87.2 VENOUS INSUFFICIENCY (CHRONIC) (PERIPHER 02/11/2018 VENUS JUVENTINO R STAFF PHYSICIAN Ot L97.512 NON-PRS CHRONIC ULCER OTH PRT RIGHT FOOT 02/11/2018 VENUS JUVENTINO R STAFF PHYSICIAN Ot E11.621 TYPE 2 DIABETES MELLITUS WITH FOOT ULCER 02/11/2018 VENUS, JUVENTINO R STAFF PHYSICIAN Ot I87.2 VENOUS INSUFFICIENCY (CHRONIC) (PERIPHER 02/11/2018 VENUS JUVENTINO R STAFF PHYSICIAN Ot L97.512 NON-PRS CHRONIC ULCER OTH PRT RIGHT FOOT 02/18/2018 VENUS JUVENTINO R STAFF PHYSICIAN Ot E11.621 TYPE 2 DIABETES MELLITUS WITH FOOT ULCER 02/18/2018 VENUS JUVENTINO R STAFF PHYSICIAN Ot I87.2 VENOUS INSUFFICIENCY (CHRONIC) (PERIPHER 02/18/2018 VENUS JUVENTINO R STAFF PHYSICIAN Ot L97.514 NON-PRS CHRONIC ULCER OTH PRT RIGHT FOOT 02/20/2018 VENUS, JUVENTINO R STAFF PHYSICIAN Ot E11.621 TYPE 2 DIABETES MELLITUS WITH FOOT ULCER 02/20/2018 VENUS JUVENTINO R STAFF PHYSICIAN Ot I73.9 PERIPHERAL VASCULAR DISEASE, UNSPECIFIED 02/20/2018 VENUS JUVENTINO R STAFF PHYSICIAN Ot I87.2 VENOUS INSUFFICIENCY (CHRONIC) (PERIPHER 02/20/2018 JUVENTINO DONOVAN APRN Ot L97.512 NON-PRS CHRONIC ULCER OTH PRT RIGHT FOOT 02/20/2018 JUVENTINO DONOVAN APRN Ot M86.9 OSTEOMYELITIS, UNSPECIFIED 02/23/2018 JUVENTINO DONOVAN APRN Ot E11.621 TYPE 2 DIABETES MELLITUS WITH FOOT ULCER 02/23/2018 JUVENTINO DONOVAN APRN Ot I87.2 VENOUS INSUFFICIENCY (CHRONIC) (PERIPHER 02/23/2018 JUVENTINO DONOVAN APRN Ot L97.514 NON-PRS CHRONIC ULCER OTH PRT RIGHT FOOT 02/27/2018 BRIDGER JUSTICE MD Ot E03.9 HYPOTHYROIDISM, UNSPECIFIED 02/27/2018 BRIDGER JUSTICE MD Ot E11.9 TYPE 2 DIABETES MELLITUS WITHOUT COMPLIC 02/27/2018 BRIDGER JUSTICE MD Ot E78.1 PURE HYPERGLYCERIDEMIA 02/27/2018 BRIDGER JUSTICE MD Ot E78.5 HYPERLIPIDEMIA, UNSPECIFIED 02/27/2018 BRIDGER JUSTICE MD Ot F17.210 NICOTINE DEPENDENCE, CIGARETTES, UNCOMPL 02/27/2018 BRIDGER JUSTICE MD Ot G40.909 EPILEPSY, UNSP, NOT INTRACTABLE, WITHOUT 02/27/2018 BRIDGER JUSTICE MD Ot I10 ESSENTIAL (PRIMARY) HYPERTENSION 02/27/2018 BRIDGER JUSTICE MD Ot I25.10 ATHSCL HEART DISEASE OF [place] CORONARY 02/27/2018 BRIDGER JUSTICE MD Ot I25.82 CHRONIC TOTAL OCCLUSION OF CORONARY ORESTES 02/27/2018 BRIDGER JUSTICE MD Ot I65.23 OCCLUSION AND STENOSIS OF BILATERAL [place] 02/27/2018 BRIDGER JUSTICE MD Ot I70.213 ATHSCL [place] ARTERIES OF EXTRM W INTRMT 02/27/2018 BRIDGER JUSTICE MD Ot 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 02/27/2018 BRIDGER JUSTICE MD Ot Z79.899 OTHER HALFWAY (CURRENT) DRUG THERAPY 02/27/2018 BRIDGER JUSTICE MD Ot Z82.49 FAMILY HX OF ISCHEM HEART DIS AND OTH DI 02/27/2018 BRIDGER JUSTICE MD Ot Z86.73 PRSNL HX OF TIA (TIA), AND CEREB INFRC W 02/27/2018 BRIDGER JUSTICE MD, Ot Z91.14 PATIENT'S OTHER NONCOMPLIANCE WITH MEDIC 02/27/2018 BRIDGER JUSTICE MD Ot Z95.820 PERIPHERAL VASCULAR ANGIOPLASTY STATUS W 03/03/2018 VENUSJUVENTINO STAFF PHYSICIAN Ot E11.621 TYPE 2 DIABETES MELLITUS WITH FOOT ULCER 03/03/2018 VENUS JUVENTINO R STAFF PHYSICIAN Ot I87.2 VENOUS INSUFFICIENCY (CHRONIC) (PERIPHER 03/03/2018 VENUS JUVENTINO R STAFF PHYSICIAN Ot L97.512 NON-PRS CHRONIC ULCER OTH PRT RIGHT FOOT 03/04/2018 VENUS JUVENTINO R STAFF PHYSICIAN Ot E11.621 TYPE 2 DIABETES MELLITUS WITH FOOT ULCER 03/04/2018 VENUS JUVENTINO R STAFF PHYSICIAN Ot I87.2 VENOUS INSUFFICIENCY (CHRONIC) (PERIPHER 03/04/2018 VENUS JUVENTINO R STAFF PHYSICIAN Ot L97.512 NON-PRS CHRONIC ULCER OTH PRT RIGHT FOOT 03/04/2018 VENUS JUVENTINO R STAFF PHYSICIAN Ot E11.621 TYPE 2 DIABETES MELLITUS WITH FOOT ULCER 03/04/2018 VENUS JUVENTINO R STAFF PHYSICIAN Ot I87.2 VENOUS INSUFFICIENCY (CHRONIC) (PERIPHER 03/04/2018 VENUS JUVENTINO R STAFF PHYSICIAN Ot L97.512 NON-PRS CHRONIC ULCER OTH PRT RIGHT FOOT Procedures Code Description Performed By Performed On 38.93 VENOUS CATHETERIZATION NEC 01/07/2011 00444 A1C (IN-HOUSE) 02/17/2012 38230 XRAY LUMBAR SPINE 2 OR 3 VIEWS 03/18/2012 30620 OXIMETRY 03/25/2012 01815 OXIMETRY 03/26/2012 06389 SLEEP STUDY 03/26/2012 85443 GLUCOSE FINGER STICK 03/26/2012 74305 SLEEP STUDY 03/27/2012 J1815 Novolin r 100 units/ml vial 100 unit/mL Solution 04/13/2012 38749 MONO TEST (IN-HOUSE) 09/09/2012 86823 MICRO ALBUMIN-IN HOUSE 09/11/2012 42206 ROUTINE VENIPUNCTURE 01/19/[address] SPINE, LUMBAR W/ AND W/O CONTRAST 01/19/2013 31536 TSH 01/19/[address] SPINE, LUMBAR W/O CONTRAST 01/21/[address] ABDOMEN AND PELVIS W/ CONTRAST 01/21/2013 23156 ROUTINE VENIPUNCTURE 06/03/2013 24310 CMP 06/03/2013 72626 TSH 06/03/2013 64121 CBC 06/03/2013 J1815 Novolin r 100 units/ml vial 100 unit/mL solution 06/03/2013 30152 A1C (IN-HOUSE) 06/03/2013 18116 ROUTINE VENIPUNCTURE 07/19/2013 06742 CMP 07/19/2013 YULIANA VARGAS 07/19/2013 45736 ROUTINE VENIPUNCTURE 10/08/2013 15689 A1C (IN-HOUSE) 10/08/2013 10052 CBC 10/08/2013 [id number] GFR CALC (RESULT ONLY) 10/08/2013 62092 CMP 10/08/2013 89733 IRON SERUM 10/08/2013 34277 IRON BNDNG CAP 10/08/2013 60621 MAGNESIUM 10/08/2013 68954 VIT B 12 10/08/2013 41685 TSH 10/08/2013 33806 FOLATE 10/08/2013 99923 FERRITIN 10/08/2013 IRGROUP IRON GROUP (Iron,TIBC, Ferritin) 10/12/2013 66119 MRI EXTREMITY JOINT, UPPER LEFT, W/O CONTRAST 10/19/2013 64624 PSYCH DIAGNOSTIC EVALUATION 11/02/2013 28038 PSYTX PT&/FAMILY 30 MINUTES 11/11/2013 PHYSICAL WOUND CARE, [facility] 11/12/2013 37.22 LEFT HEART CARDIAC CATH [...] Bacteria identification in isolate by anaerobe culture [id number] NRG Bacteria identification in isolate by anaerobe culture - 05/09/17 14:40 QUANTITY OF GROWTH Scant Growth NRG Bacteria identification in isolate by anaerobe culture [id number] NRG Gram stain microscopy - 05/09/17 14:40 GRAM STAIN RESULT NO BACTERIA OBSERVED NRG Gram stain microscopy - 05/09/17 14:40 GRAM STAIN RESULT FEW GRAM NEGATIVE RODS NRG Bacteria identification in wound by culture - 05/09/17 14:40 Bacteria identification in wound by culture [id number] NRG FREE TEXT EXTERNAL SEE COMMENT NRG QUANTITY OF GROWTH Moderate Growth NRG FREE TEXT ENTRY 2 TO FOLLOW NRG Bacteria identification in wound by culture - 05/09/17 14:40 Bacteria identification in wound by culture NRG Bacterial susceptibility panel - 05/09/17 14:40 [...] in platelet poor plasma bycoagulation assay - 07/15/18 10:44 Activated partial thromboplastin time (aPTT) in [...] identification in isolate by anaerobe culture NOANA NR Gram stain microscopy - 02/03/18 09:08 Gram stain microscopy gram stain performed by critical [facility] NR Bacteria identification in wound by culture - 02/03/18 09:08 Bacteria identification in wound by culture SEE COMMEN NRG FREE TEXT EXTERNAL ID REPORTED 02/04/18 16:05 NRG QUANTITY OF GROWTH . [facility] FREE TEXT ENTRY 2 SUSCEPTIBILITY REPORTED 02-11-2018, 1505 NR Automated blood complete blood count (hemogram) panel - 02/25/18 08:30 Blood leukocytes automated count (number/volume) 8.2 10*3/uL 4.3-11.0 Blood erythrocytes automated count (number/volume) 3.87 10*6/uL 4.35-5.85 Venous blood hemoglobin measurement (mass/volume) 12.2 g/dL 13.3-17.7 Blood hematocrit (volume fraction) 36 % 40-54 Automated erythrocyte mean corpuscular volume 92 [foz_us] 80-99 Automated erythrocyte mean corpuscular hemoglobin (mass per erythrocyte) 32 pg 25-34 Automated erythrocyte mean corpuscular hemoglobin concentration measurement ( mass/volume) 34 g/dL 32-36 Automated erythrocyte distribution width ratio 12.7 % 10.0-14.5 Automated blood platelet count (count/volume) 242 10*3/uL 130-400 Automated blood platelet mean volume measurement 10.2 [foz_us] 7.4-10.4 PT panel in platelet poor plasma by coagulation assay - 02/25/18 08:30 Prothrombin time (PT) in platelet poor plasma by coagulation assay 14.2 s 12.2-14.7 INR in platelet poor plasma or blood by coagulation assay 1.1 0.8-1.4 Activated partial thromboplastin time (aPTT) in platelet poor plasma bycoagulation assay - 02/25/18 08:30 Activated partial thromboplastin time (aPTT) in platelet poor plasma bycoagulation assay 31 s 24-35 Comprehensive metabolic panel - 02/25/18 08:30 Serum or plasma sodium measurement (moles/volume) 131 mmol/L 135-145 Serum or plasma potassium measurement (moles/volume) 5.3 mmol/L 3.6-5.0 Serum or plasma chloride measurement (moles/volume) 96 mmol/L 98-107 Carbon dioxide 28 mmol/L 21-32 Serum or plasma anion gap determination (moles/volume) 7 mmol/L 5-14 Serum or plasma urea nitrogen measurement (mass/volume) 5 mg/dL 7-18 Serum or plasma creatinine measurement (mass/volume) 0.85 mg/dL 0.60-1.30 Serum or plasma urea nitrogen/creatinine mass ratio 6 NRG Serum or plasma creatinine measurement with calculation of estimated glomerular filtration rate > NRG Serum or plasma glucose measurement (mass/volume) 127 mg/dL 70-105 Serum or plasma calcium measurement (mass/volume) 9.0 mg/dL 8.5-10.1 Serum or plasma total bilirubin measurement (mass/volume) 0.3 mg/dL 0.1-1.0 Serum or plasma alkaline phosphatase measurement (enzymatic activity/volume) 145 U/L 40-136 Serum or plasma aspartate aminotransferase measurement (enzymatic activity/ volume) 20 U/L 5-34 Serum or plasma alanine aminotransferase measurement (enzymatic activity/volume ) 20 U/L 0-55 Serum or plasma protein measurement (mass/volume) 6.7 g/dL 6.4-8.2 Serum or plasma albumin measurement (mass/volume) 3.7 g/dL 3.2-4.5 CALCIUM CORRECTED 9.2 mg/dL 8.5-10.1 Lipid 1996 panel - 02/25/18 08:30 Serum or plasma triglyceride measurement (mass/volume) 316 mg/dL <150 Serum or plasma cholesterol measurement (mass/volume) 113 mg/dL < 200 Serum or plasma cholesterol in HDL measurement (mass/volume) 21 mg/ dL 40-60 Cholesterol in LDL [mass/volume] in serum or plasma by direct assay 42 mg/dL 1-129 Serum or plasma cholesterol in VLDL measurement (mass/volume) 63 mg/ dL 5-40 Methicillin resistant Staphylococcus aureus (MRSA) screening culture - 08:30 Methicillin resistant Staphylococcus aureus (MRSA) screening culture NEG NRG Automated blood complete blood count (hemogram) panel - 02/26/18 03:09 Blood leukocytes automated count (number/volume) 9.0 10*3/uL 4.3-11.0 Blood erythrocytes automated count (number/volume) 3.66 10*6/uL 4.35-5.85 Venous blood hemoglobin measurement (mass/volume) 11.6 g/dL 13.3-17.7 Blood hematocrit (volume fraction) 34 % 40-54 Automated erythrocyte mean corpuscular volume 93 [foz_us] 80-99 Automated erythrocyte mean corpuscular hemoglobin (mass per erythrocyte) 32 pg 25-34 Automated erythrocyte mean corpuscular hemoglobin concentration measurement ( mass/volume) 34 g/dL 32-36 Automated erythrocyte distribution width ratio 12.8 % 10.0-14.5 Automated blood platelet count (count/volume) 246 10*3/uL 130-400 Automated blood platelet mean volume measurement 10.3 [foz_us] 7.4-10.4 Whole blood basic metabolic panel - 02/26/18 03:09 Serum or plasma sodium measurement (moles/volume) 136 mmol/L 135-145 Serum or plasma potassium measurement (moles/volume) 5.1 mmol/L 3.6-5.0 Serum or plasma chloride measurement (moles/volume) 102 mmol/L 98-107 Carbon dioxide 26 mmol/L 21-32 Serum or plasma anion gap determination (moles/volume) 8 mmol/L 5-14 Serum or plasma urea nitrogen measurement (mass/volume) 9 mg/dL 7-18 Serum or plasma creatinine measurement (mass/volume) 0.84 mg/dL 0.60-1.30 Serum or plasma urea nitrogen/creatinine mass ratio 11 NRG Serum or plasma creatinine measurement with calculation of estimated glomerular filtration rate > NRG Serum or plasma glucose measurement (mass/volume) 149 mg/dL 70-105 Serum or plasma calcium measurement (mass/volume) 8.6 mg/dL 8.5-10.1 Encounters ACCT No. Visit Date/Time Discharge Status Pt. Type Provider Facility Loc./Unit Complaint [id number] 06/29/2014 07:50:00 06/29/2014 23:59:59 CLS Outpatient ЕЛЕНАPAZ MANRIQUENSTEPHANIE [id number] 04/21/2014 09:44:00 04/21/2014 23:59:59 CLS Outpatient JOLLY DELANEY MD [id number] 02/16/2014 08:48:00 02/16/2014 23:59:59 CLS Outpatient ЕЛЕНАPAZ MUÑOZSTEPHANIE [id number] 02/05/2014 06:56:00 02/05/2014 23:59:59 CLS Outpatient CLARIBEL RAMEY MD [id number] 01/21/2014 10:00:00 01/21/2014 23:59:59 CLS Outpatient SHAW DOCACHORRO [id number] 12/17/2013 09:57:00 12/17/2013 23:59:59 CLS Outpatient ARSEN WANDA SIMRAN [id number] 12/17/2013 09:57:00 12/17/2013 23:59:59 CLS Outpatient ARSEN SIMRAN MUÑOZ [id number] 11/12/2013 09:52:00 11/12/2013 23:59:59 CLS Outpatient SHAW DOCACHORRO [id number] 11/11/2013 15:58:00 11/11/2013 23:59:59 CLS Outpatient JE DONOVAN PHD [id number] 11/02/2013 13:59:00 11/02/2013 23:59:59 CLS Outpatient JE DONOVAN PHD [id number] 10/19/2013 16:42:00 10/19/2013 23:59:59 CLS Outpatient SHAW DOCACHORRO [id number] 10/08/2013 12:05:00 10/08/2013 23:59:59 CLS Outpatient SHAW DOCACHORRO [id number] 10/08/2013 12:05:00 10/08/2013 23:59:59 CLS Outpatient SHAW DOCACHORRO [id number] 07/21/2013 17:05:00 07/21/2013 23:59:59 CLS Outpatient JOLLY DELANEY MD [id number] 07/19/2013 11:17:00 07/19/2013 23:59:59 CLS Outpatient SHAW DOCACHORRO [id number] 06/03/2013 11:22:00 06/03/2013 23:59:59 CLS Outpatient SHAW DOCACHORRO [id number] 06/03/2013 11:22:00 06/03/2013 23:59:59 CLS Outpatient CACHORRO SHAW DO [id number] 01/19/2013 11:42:00 01/19/2013 23:59:59 CLS Outpatient CACHORRO SHAW DO [id number] 01/19/2013 11:42:00 01/19/2013 23:59:59 CLS Outpatient CACHORRO SHAW DO [id number] 11/02/2012 10:38:00 11/02/2012 23:59:59 CLS Outpatient VALERIA DOCACHORRO [id number] 04/22/2012 11:01:00 04/22/2012 23:59:59 CLS Outpatient [id number] 04/13/2012 09:16:00 04/13/2012 23:59:59 CLS Outpatient CACHORRO SHAW DO [id number] 03/26/2012 08:41:00 03/26/2012 23:59:59 CLS Outpatient CACHORRO SHAW DO [id number] 03/26/2012 08:41:00 03/26/2012 23:59:59 CLS Outpatient VALERIA DOCACHORRO [id number] 03/18/2012 15:47:00 03/18/2012 23:59:59 CLS Outpatient [id number] 02/17/2012 16:33:00 02/17/2012 23:59:59 CLS Outpatient CACHORRO SHAW DO [id number] 09/11/2012 09:20:00 Document Registration [id number] 09/09/2012 14:05:00 Document Registration [id number] 09/09/2012 14:05:00 Document Registration [email or web address] 09/23/2014 02:42:46 ACT Document Registration [id number] 02/25/2018 07:28:00 02/26/2018 12:20:00 DIS Outpatient BRIDGER JUSTICE MD [facility] CATH CAD,PVD,HTN,HLP,DM [id number] 02/17/2018 08:25:00 02/17/2018 23:59:59 CLS Outpatient JUVENTINO DONOVAN APRN [facility] WOUNDCARE [id number] 02/10/2018 08:09:00 02/10/2018 23:59:59 CLS Outpatient JUVENTINO DONOVAN APRN [facility] WOUNDCARE [id number] 02/03/2018 08:28:00 02/03/2018 23:59:59 CLS Outpatient JUVENTINO DONOVAN STAFF PHYSICIAN [facility] WOUNDCARE [id number] 01/20/2018 09:12:00 01/20/2018 23:59:59 CLS Outpatient KENNEY MANLEY Luke MANAGER LIGHTING [facility] RAD PERIPERAL VASCULAR DISEASE [id number] 01/20/2018 08:14:00 01/20/2018 23:59:59 CLS Outpatient JUVENTINO DONOVAN STAFF PHYSICIAN [facility] WOUNDCARE [id number] 01/08/2018 08:03:00 01/08/2018 23:59:59 CLS Outpatient JUVENTINO DONOVAN STAFF PHYSICIAN [facility] RAD NON-PRESSURE CHRONIC ULCER OF RT FOOT [id number] 01/06/2018 08:16:00 01/06/2018 23:59:59 CLS Outpatient JUVENTINO DONOVAN STAFF PHYSICIAN [facility] WOUNDCARE [id number] 12/30/2017 10:13:00 12/30/2017 23:59:59 CLS Outpatient JUVENTINO DONOVAN STAFF PHYSICIAN [facility] RAD TYPE 2 DIABETES [id number] 12/30/2017 08:20:00 12/30/2017 23:59:59 CLS Outpatient JUVENTINO DONOVAN STAFF PHYSICIAN [facility] WOUNDCARE [id number] 10/26/2017 11:53:00 10/28/2017 17:53:00 DIS Inpatient MONTRELL JAMES, CHRISTY Guerrero [facility] 4TH FALL,FEVER [id number] 05/12/2017 17:29:00 05/12/2017 23:59:59 CLS Outpatient MARITZA ROBLERO MD [facility] CARD PREOPERATIVE CARDIOVASCULAR EXAM [id number] 05/09/2017 11:20:00 05/09/2017 23:59:59 CLS Outpatient ZULLY DPM, KENTON Q [facility] SDC OSTEOMYELITIS LEFT GREAT TOE [id number] 05/07/2017 10:23:00 05/07/2017 10:50:00 DIS Outpatient ZULLY DPM, K[place]ON Q [facility] PREOP OSTEOMYELITIS LEFT GREAT TOE [id number] 04/21/2017 10:52:00 04/21/2017 23:59:59 CLS Outpatient ZULLY DPM, KENTON Q [facility] RAD CHONIC ULCERATION LEFT HALLUX [id number] 03/17/2017 12:19:00 03/17/2017 23:59:59 CLS Outpatient ALINA RODRIGUEZ MARLENY Ric [facility] RAD I70.213 PAD [id number] 03/05/2017 07:35:00 03/05/2017 17:15:00 DIS Outpatient BRIDGER JUSTICE MD [facility] CATH NONHEALING WOUND, ABN CASI [id number] 07/19/2016 19:23:00 07/19/2016 23:10:00 DIS Emergency CUCO UMANA DO [facility] ER DIARRHEA [id number] 06/04/2016 19:10:00 06/04/2016 23:59:59 CLS Outpatient JOLLY DELANEY MD [facility] GLC [id number] 05/22/2016 12:10:00 05/22/2016 23:59:59 CLS Outpatient STEPHANIE CHRISTIANSEN [facility] RAD PVD [id number] 02/09/2016 14:51:00 02/09/2016 23:59:59 CLS Outpatient JOLLY DELANEY MD [facility] LAB DIABETES [id number] 02/24/2015 13:06:00 02/24/2015 23:59:59 CLS Outpatient STEPHANIE CHRISTIANSEN [facility] RAD HYPERTHYROIDISM [id number] 09/22/2014 16:16:00 09/22/2014 18:57:00 DIS Emergency BRIAN HUGO APRN [facility] ER AMS [id number] 09/09/2014 16:15:00 09/09/2014 18:33:00 DIS Emergency TASIA CONWAY MD [facility] ER CONFUSION,NOT FEELING WELL [id number] 04/23/2014 09:25:00 04/23/2014 09:25:00 CAN Emergency KENTRELL BRADLEY MD [facility] ER [id number] 01/03/2014 14:15:00 02/03/2014 11:01:00 DIS Outpatient CAROL STRICKLAND [facility] WOUNDCARE RIGHT TOE AMPUTATION [id number] 01/19/2014 14:25:00 01/20/2014 15:25:00 DIS Inpatient CLARIBEL RAMEY MD [facility] 4TH DIABETES OUT OF CONTROL [id number] 01/05/2014 04:58:00 01/06/2014 11:30:00 DIS Inpatient VALERIA DOCACHORRO [facility] CSD EXACERBATION OF LATE CVA EFFECTS,AMS,HYPONATREMIA, [id number] 09/10/2013 16:15:00 09/10/2013 21:10:00 DIS Emergency EMELIA BORJAS [facility] ER BLACK TOE ON R FOOT [id number] 09/04/2013 13:50:00 09/04/2013 16:09:00 DIS Emergency CAROL CARRILLO MD [facility] ER LOW BLOOD SUGAR [id number] 08/27/2013 07:59:00 08/27/2013 12:10:00 DIS Emergency YOLY DURBIN MD [facility] [facility] HYPOGLYCEMIA [id number] 06/24/2013 10:51:00 06/28/2013 14:59:00 DIS Inpatient CACHORRO SHAW DO K [facility] 4TH DEC LOC [id number] 06/23/2013 20:04:00 06/23/2013 23:00:00 DIS Emergency BRIAN HUGO APRN [facility] ER AMS [id number] 02/16/2013 10:26:00 02/16/2013 12:57:00 DIS Emergency BRIAN HUGO APRN [facility] ER LEFT SHOULDER/BACK PAIN [id number] 11/06/2012 14:14:00 11/06/2012 16:34:00 DIS Emergency YOLY DUBRIN MD [facility] ER CHEST PAIN [id number] 02/10/2015 09:33:00 Document Registration [id number] 02/10/2015 09:33:00 Document Registration [id number] 02/10/2015 09:33:00 Document Registration [id number] 02/10/2015 09:33:00 Document Registration [id number] 02/10/2015 09:33:00 Document Registration [id number] 02/10/2015 09:33:00 Document Registration [id number] 09/22/2014 19:02:00 Document Registration [id number] 09/22/2014 19:02:00 Document Registration [id number] 09/22/2014 19:02:00 Document Registration [id number] 09/22/2014 19:01:00 Document Registration [id number] 03/20/2012 17:45:00 Document Registration [id number] 12/13/2011 12:01:00 Document Registration [id number] 12/09/2011 07:30:00 Document Registration [id number] 11/21/2011 08:13:00 Document Registration [id number] 10/08/2011 12:35:00 Document Registration [id number] 01/07/2011 23:01:00 Document Registration [id number] 10/16/2010 02:17:00 Document Registration [id number] 06/17/2010 04:07:00 Document Registration [id number] 02/16/2010 09:47:00 Document Registration [id number] 09/13/2009 10:01:00 Document Registration [id number] 07/06/2016 19:30:00 07/16/2016 12:30:00 DIS Inpatient [facility] 1358 07/06/2016 20:23:17 Document Registration
[2018-03-11] MEDS ORDERED: CEFD300C3 PO (14:11)
--- NOTE | 2018-03-11 14:28 | Diagnostic Imaging Report ---
PROCEDURE: CT head and CT cervical spine without contrast. TECHNIQUE: Multiple contiguous axial images were obtained through the brain and cervical spine without the use of intravenous contrast. Sagittal and coronal reformations through the cervical spine were then performed. INDICATION: Fall two days ago with injury to the right side of the head. CT HEAD: Comparison is made with prior CT of the head from 09/22/2014. Ventricles and sulci are prominent consistent with cerebral volume loss. There is periventricular hypodensity noted consistent with chronic microvascular ischemia. There is an area of encephalomalacia in the right frontal lobe, similar to prior exam. There is some soft tissue swelling in the right frontal scalp. No sulcal effacement or midline shift is seen. No acute intra-axial or extra-axial hemorrhage is detected. Cisterns are patent. The visualized paranasal sinuses demonstrate moderate mucosal thickening of bilateral maxillary sinuses and ethmoid air cells. IMPRESSION: Cerebral atrophy and chronic changes, similar to the exam from 09/22/2014. No acute intracranial hemorrhage is detected. Note is made of a right frontal scalp hematoma. CT OF CERVICAL SPINE: There is reversal of the normal cervical lordotic curvature. There appears to be fusion involving the C3 and C4 as well as partial fusion of C4 and C5 vertebral bodies. There is severe degenerative disc disease at C5-6 and C6-7 levels with complete loss of the disc space as well as marginal osteophyte formation. No fractures are identified. Prevertebral tissues are within normal limits. Odontoid is intact. IMPRESSION: Severe cervical spondylosis. No acute bony abnormality is detected. Dictated by: Dictated on workstation # [id number]
--- NOTE | 2018-03-11 14:34 | Diagnostic Imaging Report ---
INDICATION: Fall, right-sided rib pain. TIME OF EXAM: 2:22 PM COMPARISON: Correlation is made with prior study from 02/25/2018. FINDINGS: The heart size is normal. Displaced rib fracture is seen. No parenchymal contusion, effusion or pneumothorax is detected. The pulmonary vascularity is normal. There appear to be healed left-sided rib fractures at approximately the left fourth through seventh posterior ribs. IMPRESSION: No acute abnormality is identified. Dictated by: Dictated on workstation # [id number]
[2018-03-11 14:49] VITALS: BP 119/62
== END 2018-03-11 14:49 | disposition home or self-care (01) ==
LOC: EDUNIT# 13:02 → ER 13:03
DX: S06.0X0A Concussion without loss of consciousness, initial encounter (principal); J44.9 Chronic obstructive pulmonary disease, unspecified; I25.10 Atherosclerotic heart disease of native coronary artery without angina pectoris; F03.90 Unspecified dementia, unspecified severity, without behavioral disturbance, psychotic disturbance, mood disturbance, and anxiety; K21.9 Gastro-esophageal reflux disease without esophagitis; E11.9 Type 2 diabetes mellitus without complications; E03.9 Hypothyroidism, unspecified; R40.2142 Coma scale, eyes open, spontaneous, at arrival to emergency department; R40.2252 Coma scale, best verbal response, oriented, at arrival to emergency department; R40.2362 Coma scale, best motor response, obeys commands, at arrival to emergency department; F41.9 Anxiety disorder, unspecified; F32.9 Major depressive disorder, single episode, unspecified; Z82.49 Family history of ischemic heart disease and other diseases of the circulatory system; Z79.82 Long term (current) use of aspirin; Z79.02 Long term (current) use of antithrombotics/antiplatelets; Z79.4 Long term (current) use of insulin; Z95.5 Presence of coronary angioplasty implant and graft; Z98.1 Arthrodesis status; Z88.6 Allergy status to analgesic agent; W19.XXXA Unspecified fall, initial encounter; Y92.129 Unspecified place in nursing home as the place of occurrence of the external cause
CPT/HCPCS: 70450; 71046; 72125

== ENCOUNTER → 2018-03-19 | Outpatient (CLI) | payer MEDICARE, MEDICAID ==
[2018-03-19 08:20] LABS: HEMOGLOBIN 10.9 G/DL (13.3-17.7); MEAN PLATELET VOLUME 9.1 FL (7.4-10.4); RED BLOOD COUNT 3.45 10^6/uL (4.35-5.85); WHITE BLOOD COUNT 6.8 10^3/uL (4.3-11.0)
[2018-03-19 08:33] LABS: ALANINE AMINOTRANSFERASE 12 U/L (0-55); ALKALINE PHOSPHATASE 139 U/L (40-136); BILIRUBIN,TOTAL 0.2 MG/DL (0.1-1.0); BUN/CREATININE RATIO 6; CALCIUM 8.8 MG/DL (8.5-10.1); CARBON DIOXIDE 27 MMOL/L (21-32); CHLORIDE 99 MMOL/L (98-107); CREATININE SERUM 0.69 MG/DL (0.60-1.30); GFR ESTIMATED > 60; GLUCOSE 97 MG/DL (70-105); POTASSIUM 4.6 MMOL/L (3.6-5.0); SODIUM 135 MMOL/L (135-145); TOTAL PROTEIN 5.9 GM/DL (6.4-8.2)
--- NOTE | 2018-03-19 08:44 | Diagnostic Imaging Report ---
Indication: Preop for peripheral vascular disease. Time of exam: 8:34 AM Correlation was made with prior study from 03/11/2018. The heart size is stable. Lungs are clear. No infiltrate or effusion is seen. There is no pneumothorax. Multiple healed left-sided rib fractures are again seen. Impression: No acute cardiopulmonary process is detected. Dictated by: Dictated on workstation # [id number]
== END ==
LOC: CARD 07:53
PROVIDERS: ATTEND Thoracic Surgery (Cardiothoracic Vascular Surgery)
DX: Z01.811 Encounter for preprocedural respiratory examination (principal); Z01.810 Encounter for preprocedural cardiovascular examination; Z01.812 Encounter for preprocedural laboratory examination; I70.213 Atherosclerosis of native arteries of extremities with intermittent claudication, bilateral legs
CPT/HCPCS: 71046; 80053; 93005

== ENCOUNTER → 2018-03-24 | Outpatient (CLI) | payer MEDICARE, MEDICAID ==
[2018-03-24 18:48] LABS: BILIRUBIN,URINE NEGATIVE (NEGATIVE); CLARITY,URINE CLEAR; COLOR,URINE YELLOW; GLUCOSE, URINE (UA) 4+ (NEGATIVE); KETONES,URINE NEGATIVE (NEGATIVE); LEUKOCYTE ESTERASE ,URINE NEGATIVE (NEGATIVE); NITRITE,URINE NEGATIVE (NEGATIVE); PH,URINE 6 (5-9); PROTEIN,URINE 3+ (NEGATIVE); UROBILINOGEN,URINE NORMAL (NORMAL)
[2018-03-24 19:02] LABS: SQUAMOUS EPITHELIAL CELL,UR RARE /HPF; WBC,URINE RARE /HPF
== END ==
LOC: LABNPT 18:41
PROVIDERS: ATTEND Thoracic Surgery (Cardiothoracic Vascular Surgery)
DX: R82.998 Other abnormal findings in urine (principal)
CPT/HCPCS: 81000

== ENCOUNTER → 2018-09-17 | Outpatient (CLI) | payer MEDICARE, MEDICAID ==
--- NOTE | 2018-09-17 17:36 | Diagnostic Imaging Report ---
PROCEDURE: US Bilateral lower extremity arterial. TECHNIQUE: Multiple real-time grayscale images are obtained through both lower extremity arterial systems with color Doppler imaging and color Doppler spectral analysis. INDICATION: Atherosclerosis. COMPARISON: Comparison is made with prior exam from 05/22/2016. FINDINGS: Right lower extremity evaluation demonstrates monophasic flow in the common femoral artery which is moderately elevated at 188 cm/s. There is flow in the deep profunda. No identifiable flow in the proximal, mid or distal SFA is identified. There is monophasic flow in the distal popliteal artery. No flow is identified in the posterior tibial or dorsalis pedis at the ankle. Dampened flow in the anterior tibial artery is noted. Evaluation of the left lower extremity shows monophasic flow in the common femoral artery. There is dampened flow in the proximal left SFA with no identifiable flow in the mid or distal SFA. There is flow in the popliteal and anterior tibial. No flow is identified in the posterior tibial or dorsalis pedis arteries. IMPRESSION: Continued significant peripheral arterial disease bilaterally. Bilateral SFAs are occluded. Bilateral posterior tibial and dorsalis pedis arteries are occluded. Dictated by: Dictated on workstation # [id number]
== END ==
LOC: RAD 13:13
PROVIDERS: ATTEND Nurse Practitioner
DX: I70.235 Atherosclerosis of native arteries of right leg with ulceration of other part of foot (principal); I70.203 Unspecified atherosclerosis of native arteries of extremities, bilateral legs; Z98.890 Other specified postprocedural states
CPT/HCPCS: 93925

== ENCOUNTER 2018-12-08 12:06 | Emergency (ER) | payer MEDICARE, MEDICAID ==
[~2018-12-08] VITALS: Ht 177.8 cm; Wt 81.6 kg
[2018-12-08] MEDS ORDERED: NS IV 500 ML 500 ML IV ONE (12:12)
[2018-12-08] MEDS ORDERED: NS IV 1000 ML 1,000 ML IV SCH (12:12)
[2018-12-08] MEDS ORDERED: RT-ALBUTEROL/IPRATROPIUM 3 ML (DUONEB) VIAL INH ONE (12:15)
--- NOTE | 2018-12-08 12:23 | ED Respiratory ---
General Stated Complaint: AMS Source: patient, EMS, [facility] records Exam Limitations: no limitations History of Present Illness Date Seen by Provider: Dec 08, 2018 Time Seen by Provider: 12:07 Initial Comments Patient presents to ER by EMS [facility] with chief complaint of acting altered not himself today. EMS said the did a stroke score of 0. He has some residual right-sided droop in his face. Patient states he feels short of breath but has no fever. He does endorse chills and sweating. Occasional cough. Smokes but does not drink. Anergia and malaise. He denies nausea chest pain vomiting diarrhea constipation or dysuria. Blood sugar 350 by EMS. He is not oxygen dependent. He does have a history of stroke. History of dementia. Allergies and Home Medications Allergies Coded Allergies: acetaminophen (Verified Allergy, Intermediate, 10/26/17) Home Medications Aspirin 81 Mg Tablet.dr, 81 MG PO DAILY, (Reported) Cefdinir 300 Mg Capsule, 300 MG PO BID Prescribed by: BRIAN HUGO on 03/11/18 1411 Cephalexin 500 Mg Capsule, 500 MG PO QID, (Reported) 3 WEEK THERAPY START DATE 02-13-18 END DATE 03-05-18 Cholecalciferol (Vitamin D3) 4,000 Unit Capsule, 4,000 UNIT PO DAILY, (Reported) Citalopram Hydrobromide 20 Mg Tablet, 20 MG PO DAILY, (Reported) Clonazepam 0.5 Mg Tablet, 0.5 MG PO 1400, (Reported) Clonazepam 0.5 Mg Tablet, 1 MG PO 0800, (Reported) TAKES 2 (0.5MG) TABLETS Clonidine HCl 0.2 Mg Tablet, 0.2 MG PO BID, (Reported) Clopidogrel Bisulfate 75 Mg Tablet, 75 MG PO DAILY, (Reported) Divalproex Sodium 125 Mg Cap.sprink, 250 MG PO QID, (Reported) TAKES 2 (125MG) CAPSULES Donepezil HCl 10 Mg Tablet, 10 MG PO HS, (Reported) Enalapril Maleate 2.5 Mg Tablet, 2.5 MG PO DAILY, (Reported) HOLD FOR BP < 90/50 OR PULSE < 50 Glimepiride 4 Mg Tablet, 4 MG PO DAILY, (Reported) Ibuprofen 200 Mg Tablet, 400 MG PO Q6H PRN for PAIN-MILD, (Reported) Icosapent Ethyl 1 Gm Capsule, 1 GM PO BID Prescribed by: BRIDGER RAMIREZ on 02/26/18 0754 Insulin Degludec 100 Unit/1 Ml Insuln.pen, 15 UNIT SQ 0600, (Reported) Lactobacillus Acidophilus 1 Each Tablet, 1 TAB PO QID, (Reported) Levetiracetam 500 Mg Tablet, 500 MG PO 0900,1700, (Reported) Levothyroxine Sodium 175 Mcg Tablet, 175 MCG PO DAILY, (Reported) Mag Hydrox/Al Hydrox/Simeth 30 Ml Oral.susp, 30 ML PO Q4H PRN for INDIGESTION, (Reported) Magnesium Hydroxide 400 Mg/5 Ml Oral.susp, 30 ML PO DAILY PRN for CONSTIPATION- 7TH LINE, (Reported) Melatonin 3 Mg Tablet, 3 MG PO HS, (Reported) Metformin HCl 1,000 Mg Tablet, 1,000 MG PO BID, (Reported) Metoprolol Tartrate 25 Mg Tablet, 25 MG PO BID, (Reported) HOLD IF BP < 90/50 OR PULSE <60 Mirtazapine 15 Mg Tablet, 7.5 MG PO HS, (Reported) TAKES 1/2 (15MG) TABLET Rivastigmine 9.5 Mg Patch, 9.5 MG TD DAILY, (Reported) Simvastatin 10 Mg Tablet, 10 MG PO HS, (Reported) Patient Home Medication List Home Medication List Reviewed: Yes Review of Systems Review of Systems Constitutional: No chills, No diaphoresis EENTM: No ear discharge, No ear pain Respiratory: No cough, No phlegm; short of breath Cardiovascular: No chest pain, No edema Gastrointestinal: No abdominal pain, No constipation, No diarrhea, No nausea Genitourinary: No discharge, No dysuria Musculoskeletal: No back pain, No joint pain Past Eumaeek-Dcczjk-Btvujg Hx Patient Social History Alcohol Use: Denies Use Recreational Drug Use: No Smoking Status: Current Everyday Smoker Type Used: Cigarettes 2nd Hand Smoke Exposure: No Recent Hopitalizations: No Immunizations Up To Date Tetanus Booster (TDap): Unknown PED Vaccines UTD: No Date of Pneumonia Vaccine: Mar 20, 2004 Date of Influenza Vaccine: Feb 13, 2016 Seasonal Allergies Seasonal Allergies: No Past Medical History Surgeries: Yes (KNEE AND BACK SURGERY: DISKECTOMY AND FUSIONS, TOE AMPUTATION) Amputation, Coronary Stent, Orthopedic Respiratory: No COPD Cardiac: Yes Coronary Artery Disease Neurological: Yes Dementia, Stroke Reproductive Disorders: No Genitourinary: No Gastrointestinal: No Gastroesophageal Reflux Musculoskeletal: Yes ( CHRONIC PAIN ) Degenerate Disk Disease, Arthritis Endocrine: Yes Diabetes, Insulin dep, Hypothyroidsim HEENT: No Cancer: No Psychosocial: Yes Anxiety, Depression Integumentary: No Blood Disorders: No Family Medical History Cardiovascular disease 19 FATHER 19 MOTHER Diabetes mellitus G8 BROTHER FH: cancer Thyroid disease 19 MOTHER (HYPOTHYROIDISM) Physical Exam Vital Signs - First Documented 12/08/18 12:06 Temp 98.5 Pulse 76 Resp 18 B/P (MAP) 123/81 (95) Pulse Ox 92 O2 Delivery Nasal Cannula O2 Flow Rate 2.00 Capillary Refill : Height: 5'10.00" Weight: 280lbs. 0.0oz. 127.773135uz; 25.8 BMI Method:Stated General Appearance: WD/WN, mild distress Eyes: Bilateral Eye Normal Inspection, Bilateral Eye PERRL, Bilateral Eye EOMI HEENT: PERRL/EOMI, normal ENT inspection, pharynx normal (oropharynx is dry) Neck: non-tender, full range of motion, supple, normal inspection Respiratory: lungs clear, no accessory muscle use, respiratory distress (mild, oxygen saturation 9092% on room air.), decreased breath sounds Gastrointestinal: normal bowel sounds, non tender, soft Neurologic/Psychiatric: alert, normal mood/affect, other (oriented to person and place but not time) Skin: normal color, warm/dry Progress/Results/Core Measures Suspected Sepsis SIRS Temperature: Pulse: Respiratory Rate: Laboratory Tests 12/08/18 12:12: White Blood Count 9.3 Blood Pressure / Mean: Laboratory Tests 12/08/18 12:12: Creatinine 0.82, Platelet Count 287, Total Bilirubin 0.2 Results/Orders Lab Results Laboratory Tests Test 12/08/18 12:12 12/08/18 12:20 12/08/18 14:00 Range/Units White Blood Count 9.3 4.3-11.0 10^3/uL Red Blood Count 3.48 L 4.35-5.85 10^6/uL Hemoglobin 10.9 L 13.3-17.7 G/DL Hematocrit 32 L 40-54 % Mean Corpuscular Volume 91 80-99 FL Mean Corpuscular Hemoglobin 31 25-34 PG Mean Corpuscular Hemoglobin Concent 34 32-36 G/DL Red Cell Distribution Width 12.1 10.0-14.5 % Platelet Count 287 130-400 10^3/uL Mean Platelet Volume 10.1 7.4-10.4 FL Neutrophils (%) (Auto) 66 42-75 % Lymphocytes (%) (Auto) 21 12-44 % Monocytes (%) (Auto) 11 0-12 % Eosinophils (%) (Auto) 1 0-10 % Basophils (%) (Auto) 1 0-10 % Neutrophils # (Auto) 6.2 1.8-7.8 X 10^3 Lymphocytes # (Auto) 2.0 1.0-4.0 X 10^3 Monocytes # (Auto) 1.0 0.0-1.0 X 10^3 Eosinophils # (Auto) 0.1 0.0-0.3 10^3/uL Basophils # (Auto) 0.1 0.0-0.1 10^3/uL Sodium Level 129 L 135-145 MMOL/L Potassium Level 5.0 3.6-5.0 MMOL/L Chloride Level 97 L 98-107 MMOL/L Carbon Dioxide Level 22 21-32 MMOL/L Anion Gap 10 5-14 MMOL/L Blood Urea Nitrogen 6 L 7-18 MG/DL Creatinine 0.82 0.60-1.30 MG/DL Estimat Glomerular Filtration Rate > 60 BUN/Creatinine Ratio 7 Glucose Level 284 H 70-105 MG/DL Calcium Level 8.1 L 8.5-10.1 MG/DL Corrected Calcium 9.1 8.5-10.1 MG/DL Total Bilirubin 0.2 0.1-1.0 MG/DL Aspartate Amino Transf (AST/SGOT) 27 5-34 U/L Alanine Aminotransferase (ALT/SGPT) 23 0-55 U/L Alkaline Phosphatase 142 H 40-136 U/L Troponin I < 0.028 <0.028 NG/ML C-Reactive Protein High Sensitivity 3.09 H 0.00-0.50 MG/DL Total Protein 5.5 L 6.4-8.2 GM/DL Albumin 2.8 L 3.2-4.5 GM/DL Blood Gas Puncture Site R RAD Blood Gas Patient Temperature 98.5 Arterial Blood pH 7.39 7.37-7.43 Arterial Blood Partial Pressure CO2 42 35-45 MMHG Arterial Blood Partial Pressure O2 72 L 79-93 MMHG Arterial Blood HCO3 25 23-27 MMOL/L Arterial Blood Total CO2 26.3 21.0-31.0 MMOL/L Arterial Blood Oxygen Saturation 95 94-100 % Arterial Blood Base Excess 0.5 -2.5-2.5 MMOL/L Dorian Test YES-POS Blood Gas Ventilator Setting NO Blood Gas Inspired Oxygen 1 Urine Color YELLOW Urine Clarity CLEAR Urine pH 6 5-9 Urine Specific [place] 1.015 L 1.016-1.022 Urine Protein 3+ H NEGATIVE Urine Glucose (UA) 3+ H NEGATIVE Urine Ketones NEGATIVE NEGATIVE Urine Nitrite NEGATIVE NEGATIVE Urine Bilirubin NEGATIVE NEGATIVE Urine Urobilinogen NORMAL NORMAL MG/DL Urine Leukocyte Esterase NEGATIVE NEGATIVE Urine RBC (Auto) 1+ H NEGATIVE Urine RBC NONE /HPF Urine WBC NONE /HPF Urine Squamous Epithelial Cells 2-5 /HPF Urine Crystals NONE /LPF Urine Amorphous Sediment FEW NELSON URATES H /LPF Urine Bacteria TRACE /HPF Urine Casts PRESENT /LPF Urine Hyaline Casts 25-50 H /LPF Urine Mucus NEGATIVE /LPF Urine Culture Indicated NO My Orders Orders - JV COLE Albuterol/Ipra Inhalation Soln (Duoneb I (12/08/18 12:15) Chest 1 View, Ap/Pa Only (12/08/18 12:12) Ed Iv/Invasive Line Start (12/08/18 12:12) Ns Iv 500 Ml (Sodium Chloride 0.9%) (12/08/18 12:12) Ns Iv 1000 Ml (Sodium Chloride 0.9%) (12/08/18 12:12) Svn Small Volume Nebulizer (12/08/18 12:12) Continuous Ekg Monitoring (12/08/18 12:12) Ekg Tracing (12/08/18 12:12) Troponin I (12/08/18 12:12) Cbc With Automated Diff (12/08/18 12:12) Comprehensive Metabolic Panel (12/08/18 12:12) Hs C Reactive Protein (12/08/18 12:12) O2 (12/08/18 12:23) Accucheck Stat ONCE (12/08/18 12:23) Ua Culture If Indicated (12/08/18 12:23) Arterial Blood Gas (12/08/18 12:25) Insulin (Regular) Human (Humulin R (Per (12/08/18 13:30) Ekg Tracing (12/08/18 13:26) BNP (12/08/18 14:20) Medications Given in ED Current Medications Medications Dose Ordered Sig/Manuel Route Start Time Stop Time Status Last Admin Dose Admin Albuterol/ Ipratropium 3 ml ONCE ONCE INH 12/08/18 12:15 12/08/18 12:19 DC 12/08/18 12:27 3 ML Insulin Human Regular 10 unit ONCE ONCE SC 12/08/18 13:30 12/08/18 13:31 DC 12/08/18 13:27 10 UNIT Sodium Chloride 500 ml @ 0 mls/hr Q0M ONCE IV 12/08/18 12:12 12/08/18 12:19 DC 12/08/18 14:15 500 MLS/HR Vital Signs/I&O 12/08/18 12/08/18 12/08/18 12/08/18 12:06 12:06 12:27 14:02 Temp 98.5 Pulse 76 73 Resp 18 18 B/P (MAP) 123/81 (95) 129/81 (97) Pulse Ox 92 95 96 O2 Delivery Nasal Cannula Room Air Nasal Cannula Nasal Cannula O2 Flow Rate 2.00 1.00 2.00 Capillary Refill : Progress Note : Time: 12:22 Progress Note DuoNeb for his diminished breath sounds, ABG labs chest x-ray EKG and troponin and urinalysis. Cardiac catheterization by Dr. Ramirez February,: Severe multivessel coronary artery disease with total occlusion of the circumflex artery and severe disease of the proximal LAD and severe disease of the proximal and distal right coronary artery. Normal left ventricular end-diastolic pressure. Hypertensive changes and aortic arch and tortuous and calcified carotids. ECG Initial ECG Impression Date: Dec 08, 2018 Initial ECG Impression Time: 12:31 Initial ECG Rate: 72 Initial ECG Rhythm: Normal Sinus Initial ECG Intervals: Normal Initial ECG Impression: Normal, Nonspecific Changes Initial ECG Comparisson: Changed Comment Normal sinus rhythm with no clinically significant ST changes but there is one half to one block elevation of the ST segment in leads V2 and V3. EKG : EKG Time: 13:36 Rate: 71 Rhythm: Normal Sinus Intervals: Normal ECG Comparisson: Unchanged ECG Impression: Normal, Nonspecific Changes Comment Normal sinus rhythm with one half to one block elevation of the anterior leads V1, V2 and V3 ST segment. Diagnostic Imaging Diagonstic Imaging: Xray Plain Films/CT/US/NM/MRI: chest (1v) Comments [facility] [place] NAME: JOLLY MANZANARES [facility] REC#: [id number] PT STATUS: REG ER : 1950 PHYSICIAN: JV COLE MD ADMIT DATE: 12/08/18/ER Draft Date of Exam:12/08/18 CHEST 1 VIEW, AP/PA ONLY INDICATION: Altered mental status. COMPARISON: 03/19/2018. FINDINGS: Single frontal view of the chest demonstrates normal heart size and pulmonary vascularity. The lungs are well aerated and clear. No large pleural effusion or pneumothorax is seen. The visualized osseous structures show no acute abnormalities. IMPRESSION: 1. No acute cardiopulmonary process. Dictated on workstation # [id number] Dict: 12/08/18 1249 Trans: 12/08/18 1251 [id number] Interpreted by: RAVEN SUAREZ MD Electronically signed by: Reviewed: Reviewed by Me Departure Communication (PCP) Discussed the case with Dr. Fisher who is collections officer for [facility] and we agree the patient does not meet any admission criteria and would probably be better served with outpatient with close follow-up with primary care. Impression Primary Impression: Debilitated patient Additional Impression: Dementia Qualified Codes: F03.90 - Unspecified dementia without behavioral disturbance Disposition: 01 HOME, SELF-CARE Condition: Stable Departure-Patient Inst. Decision time for Depature: 14:22 Referrals: JOLLY DELANEY MD (PCP/Family) Primary Care Physician Patient Instructions: Dementia (DC) Add. Discharge Instructions: Make a close follow-up appointment with your primary care doctor this week for reevaluation. If you begin to have shortness of breath, chest pain, nausea vomiting, fever or other worrisome symptoms please return to the ER. JV COLE Dec 08, 2018 12:23
[2018-12-08 12:31] LABS: ABG BASE EXCESS 0.5 MMOL/L (-2.5-2.5); ABG OXYGEN SATURATION 95 % (94-100); ABG PCO2 42 MMHG (35-45); ABG PH 7.39 (7.37-7.43); ABG PO2 72 MMHG (79-93); ABG TCO2 26.3 MMOL/L (21.0-31.0)
[2018-12-08 12:32] LABS: ALLENS TEST YES-POS; INSPIRED O2 1; PATIENT TEMP 98.5; VENTILATOR NO
[2018-12-08 12:32] LABS: BASOPHILS # (AUTO) 0.1 10^3/uL (0.0-0.1); BASOPHILS % (AUTO) 1 % (0-10); EOSINOPHILS # (AUTO) 0.1 10^3/uL (0.0-0.3); EOSINOPHILS % (AUTO) 1 % (0-10); HEMATOCRIT 32 % (40-54); HEMOGLOBIN 10.9 G/DL (13.3-17.7); LYMPHOCYTES % (AUTO) 21 % (12-44); MEAN CORPUSCULAR HEMOGLOBIN 31 PG (25-34); MEAN CORPUSCULAR HGB CONC 34 G/DL (32-36); MEAN CORPUSCULAR VOLUME 91 FL (80-99); MEAN PLATELET VOLUME 10.1 FL (7.4-10.4); MONOCYTES % (AUTO) 11 % (0-12); NEUTROPHILS # (AUTO) 6.2 X 10^3 (1.8-7.8); NEUTROPHILS % (AUTO) 66 % (42-75); PLATELET COUNT 287 10^3/uL (130-400); RED CELL DISTRIBUTION WIDTH 12.1 % (10.0-14.5); WHITE BLOOD COUNT 9.3 10^3/uL (4.3-11.0)
[2018-12-08 12:47] LABS: ALANINE AMINOTRANSFERASE 23 U/L (0-55); ALBUMIN 2.8 GM/DL (3.2-4.5); ALKALINE PHOSPHATASE 142 U/L (40-136); BILIRUBIN,TOTAL 0.2 MG/DL (0.1-1.0); BUN/CREATININE RATIO 7; CALCIUM 8.1 MG/DL (8.5-10.1); CARBON DIOXIDE 22 MMOL/L (21-32); CHLORIDE 97 MMOL/L (98-107); CREATININE SERUM 0.82 MG/DL (0.60-1.30); GFR ESTIMATED > 60; GLUCOSE 284 MG/DL (70-105); SODIUM 129 MMOL/L (135-145); TOTAL PROTEIN 5.5 GM/DL (6.4-8.2)
--- NOTE | 2018-12-08 12:52 | Diagnostic Imaging Report ---
INDICATION: Altered mental status. COMPARISON: 03/19/2018. FINDINGS: Single frontal view of the chest demonstrates normal heart size and pulmonary vascularity. The lungs are well aerated and clear. No large pleural effusion or pneumothorax is seen. The visualized osseous structures show no acute abnormalities. IMPRESSION: 1. No acute cardiopulmonary process. Dictated by: Dictated on workstation # [id number]
[2018-12-08] MEDS ORDERED: inSUlin (REGULAR) HUMAN 1 UNIT/0.01 ML (CHARGE PER UNIT) SC ONE (13:30)
[2018-12-08 14:02] VITALS: BP 129/81
[2018-12-08 14:08] LABS: BILIRUBIN,URINE NEGATIVE (NEGATIVE); CLARITY,URINE CLEAR; COLOR,URINE YELLOW; GLUCOSE, URINE (UA) 3+ (NEGATIVE); KETONES,URINE NEGATIVE (NEGATIVE); LEUKOCYTE ESTERASE ,URINE NEGATIVE (NEGATIVE); NITRITE,URINE NEGATIVE (NEGATIVE); PH,URINE 6 (5-9); PROTEIN,URINE 3+ (NEGATIVE); UROBILINOGEN,URINE NORMAL (NORMAL)
[2018-12-08 14:17] LABS: AMORPHOUS SEDIMENT,UR FEW AMOR URATES /LPF; BACTERIA,URINE TRACE /HPF; HYALINE CASTS, URINE 25-50 /LPF
[2018-12-08] MEDS ORDERED: RIVA1PAT12 TD (14:48)
[2018-12-08] MEDS ORDERED: TAMS0.4C98 PO (14:48)
[2018-12-08] MEDS ORDERED: VENL75CA93 PO (14:48)
[2018-12-08] MEDS ORDERED: ICOS1CAP PO (14:48)
[2018-12-08] MEDS ORDERED: TRAM50TA2 PO (14:48)
[2018-12-08] MEDS ORDERED: LACT1CAP76 PO (14:48)
[2018-12-08] MEDS ORDERED: ALBU2.5V4 NEB (14:48)
[2018-12-08] MEDS ORDERED: DULA0.75 SC (14:48)
[2018-12-08] MEDS ORDERED: CHOL20003 PO (14:48)
--- NOTE | 2018-12-08 14:51 | NUR ---
UPDATED MED REC WITH ORDER SUMMARY REPORT FROM [facility]
--- NOTE | 2018-12-08 14:53 | NUR ---
CALLED AND GAVE REPORT TO [facility] WILL COME GET HIM.
[2018-12-08 15:10] VITALS: BP 126/47
== END 2018-12-08 15:20 | disposition home or self-care (01) ==
LOC: EDUNIT# 12:06 → ER 12:07
DX: F03.90 Unspecified dementia, unspecified severity, without behavioral disturbance, psychotic disturbance, mood disturbance, and anxiety (principal); R53.81 Other malaise; J44.9 Chronic obstructive pulmonary disease, unspecified; I25.10 Atherosclerotic heart disease of native coronary artery without angina pectoris; K21.9 Gastro-esophageal reflux disease without esophagitis; E03.9 Hypothyroidism, unspecified; E11.9 Type 2 diabetes mellitus without complications; F41.9 Anxiety disorder, unspecified; F32.9 Major depressive disorder, single episode, unspecified; F17.210 Nicotine dependence, cigarettes, uncomplicated; Z95.5 Presence of coronary angioplasty implant and graft; Z86.73 Personal history of transient ischemic attack (TIA), and cerebral infarction without residual deficits; Z88.5 Allergy status to narcotic agent; Z79.82 Long term (current) use of aspirin; Z79.84 Long term (current) use of oral hypoglycemic drugs; Z98.1 Arthrodesis status; Z82.49 Family history of ischemic heart disease and other diseases of the circulatory system
CPT/HCPCS: 36415; 36600; 51701; 71045; 80053; 81000; 82805; 83880; 84484; 85025; 86141; 93005; 94640

== ENCOUNTER → 2019-04-26 | Outpatient (CLI) | payer MEDICARE, MEDICAID ==
[~2019-04-26] MED LIST changes: +ALBU2.5V4 NEB; +CEPH500C PO; +CHOL200025 PO; +CHOL20003 PO; -CLON0.5T13 PO; +CLON0.5T4 PO; +DULA0.75 SC; -GLIM4TAB PO; +GLIM4TAB3 PO; +INSU100V16 SQ; +LACT1CAP76 PO; -MELA3TAB PO; +MELA3TAB65 PO; +RIVA1PAT12 TD; +SIMV10TA26 PO; -SIMV10TA3 PO; +TMSL.4C PO; -TRAM50TA2 PO; +TRM50T PO; +VENL-48 PO; +VENL75CA93 PO
== END ==
LOC: WOUNDCARE 12:20
PROVIDERS: ATTEND Preventive Medicine Undersea and Hyperbaric Medicine
DX: E11.621 Type 2 diabetes mellitus with foot ulcer (principal); L97.529 Non-pressure chronic ulcer of other part of left foot with unspecified severity; J44.9 Chronic obstructive pulmonary disease, unspecified; I25.10 Atherosclerotic heart disease of native coronary artery without angina pectoris; I10 Essential (primary) hypertension; I25.2 Old myocardial infarction; E11.51 Type 2 diabetes mellitus with diabetic peripheral angiopathy without gangrene; M19.91 Primary osteoarthritis, unspecified site; E11.40 Type 2 diabetes mellitus with diabetic neuropathy, unspecified; F03.90 Unspecified dementia, unspecified severity, without behavioral disturbance, psychotic disturbance, mood disturbance, and anxiety; D64.9 Anemia, unspecified
CPT/HCPCS: 99213

== ENCOUNTER 2019-04-28 11:04 | Outpatient (CLI) | payer MEDICARE, MEDICAID ==
[~2019-04-28 11:04] MED LIST changes: -CEPH500C PO; -CHOL200025 PO; -INSU100V16 SQ; -VENL-48 PO
[2019-04-29] MEDS ORDERED: CHOL200025 PO (08:15)
[2019-04-29] MEDS ORDERED: VENL-48 PO (08:15)
[2019-04-29] MEDS ORDERED: INSU100V16 SQ (08:16)
== END 2019-04-28 15:00 | disposition home or self-care (01) ==
LOC: PREOP 11:04
PROVIDERS: ATTEND Podiatrist Foot & Ankle Surgery
DX: Z01.818 Encounter for other preprocedural examination (principal)

== ENCOUNTER 2019-05-05 11:04 | Day surgery (SDC) | payer MEDICARE, MEDICAID ==
[2019-05-05] VITALS (10 sets, daily range): BP systolic 135–169; BP diastolic 64–101
[~2019-05-05] VITALS: Ht 172 cm; Wt 81.0 kg
[~2019-05-05 11:04] MED LIST changes: +CHOL200025 PO; +INSU100V16 SQ; +VENL-48 PO
[2019-05-05] MEDS ORDERED: HEParin (CATH LAB) 2,000 ML IV ONE (11:42)
[2019-05-05] MEDS ORDERED: LIDOCAINE 1% INJ 20 ML 20 ML VIAL ONE (11:42)
[2019-05-05] MEDS ORDERED: NS IV 1000 ML 1,000 ML ONE (11:42)
[2019-05-05] MEDS ORDERED: NS IV 1000 ML 1,000 ML IV SCH ×2 (12:15→14:32)
--- NOTE | 2019-05-05 12:19 | Diagnostic Imaging Report ---
CLINICAL INDICATION: Precath for peripheral angiography with possible peripheral angioplasty/stent. No chest complaints. EXAM: Portable chest X-ray upright view. COMPARISON: Portable chest X-ray upright view dated 12/08/2018. FINDINGS: Lungs are clear. There is no pleural effusion or pneumothorax. Pulmonary vasculature and mediastinal structures are unremarkable. Cardiac silhouette is within normal limits. There are degenerative spurs involving the thoracic spine. There are old healed fractures involving the left ribs again seen. IMPRESSION: 1: There is no radiographic evidence of acute cardiopulmonary process. Dictated by: Dictated on workstation # [id number]
[2019-05-05 12:25] LABS: HEMOGLOBIN 11.3 G/DL (13.3-17.7); MEAN PLATELET VOLUME 11.1 FL (7.4-10.4); RED CELL DISTRIBUTION WIDTH 12.4 % (10.0-14.5); WHITE BLOOD COUNT 7.7 10^3/uL (4.3-11.0)
[2019-05-05 12:40] LABS: INR 1.1 (0.8-1.4); PROTHROMBIN TIME PATIENT 14.2 SEC (12.2-14.7)
[2019-05-05 12:47] LABS: ALANINE AMINOTRANSFERASE 16 U/L (0-55); ALBUMIN 3.6 GM/DL (3.2-4.5); ALKALINE PHOSPHATASE 126 U/L (40-136); BILIRUBIN,TOTAL 0.3 MG/DL (0.1-1.0); BUN/CREATININE RATIO 7; CALCIUM 8.8 MG/DL (8.5-10.1); CARBON DIOXIDE 23 MMOL/L (21-32); CHLORIDE 99 MMOL/L (98-107); CHOLESTEROL 118 MG/DL (< 200); CREATININE SERUM 0.94 MG/DL (0.60-1.30); GFR ESTIMATED > 60; GLUCOSE 229 MG/DL (70-105); HDL CHOLESTEROL 25 MG/DL (40-60); POTASSIUM 4.7 MMOL/L (3.6-5.0); SODIUM 133 MMOL/L (135-145); TOTAL PROTEIN 6.6 GM/DL (6.4-8.2); TRIGLYCERIDES 259 MG/DL (<150); VLDL CHOLESTEROL 52 MG/DL (5-40)
--- NOTE | 2019-05-05 13:01 | NUR ---
ENTERED THE MED REC USING THE ORDER SUMMARY REPORT FROM [facility]
[2019-05-05] MEDS ORDERED: fentaNYL INJECTION 100 MCG/2 ML AMP ONE (13:45)
[2019-05-05] MEDS ORDERED: MIDAZOLAM 5 MG/5 ML (VERSED) VIAL ONE (13:45)
--- NOTE | 2019-05-05 13:49 | Cardiac Procedure Note-CS/ASA ---
Pre-Procedure Note Pre-Op Procedure Note H&P Reviewed The H&P was reviewed, patient examined and no changes noted. Date H&P Reviewed: May 05, 2019 Time H&P Reviewed: 13:48 Conscious Sedation Pre-Proced Time 13:49 ASA Score 3 For ASA 3 and 4: Consider anesthesia and medical clearance. Also, for patients with a history of failed moderate sedation consider anesthesia. Airway Lungs Heart ASA score ASA 1: a normal healthy patient ASA 2: a patient with a mild systemic disease (mid diabetes, controlled hypertension, obesity x ASA 3: a patient with a severe systemic disease that limits activity (angina, COPD, prior Myocardial infarction) ASA 4: a patient with an incapacitating disease that is a constant threat to life (CHF, renal failure) ASA 5: a moribund patient not expected to survive 24 hrs. (ruptured aneurysm) ASA 6: a declared brain- patient whose organs are being harvested. For emergent operations, add the letter E after the classification Mallampati Classification Grade 3 Sedation Plan Analgesia, Amnesia, Plan communicated to team members, Discussed options with patient/fam, Discussed risks with patient/fam The patient is an appropriate candidate to undergo the planned procedure, sedation, and anesthesia. The patient immediately re-assessed prior to indication. BRIDGER JUSTICE MD May 05, 2019 13:49
[2019-05-05] MEDS ORDERED: METF-399 PO (14:34)
--- NOTE | 2019-05-05 14:38 | Peripheral Report ---
Peripheral Report Physician (s)/Engineering Design Manager (s) Physician BRIDGER JUSTICE MD Pre-Procedure Diagnosis Pre-Procedure Diagnosis: osteomyelitis left 2nd toe Post-Procedure Note Procedure Start Date: May 05, 2019 Name of Procedure: Bilateral lower extremities runoff Findings/Procedure Note PROCEDURE NOTE: After explaining the procedure to the patient, all pros and cons were explained, all questions were answered. The patient signed the consent and then he was placed on the cardiac catheterization laboratory. The patient was placed on the cardiac catheterization laboratory. Groin was prepped SL fashion local anesthesia was used. Sheath placed in the right femoral artery, runoff to the right leg was done then rimmed catheter was advanced to the left common iliac artery and runoff to the left leg was done. At the end sheath was removed and closure device used FINDINGS: Right leg runoff: Total occlusion of the right SFA, collaterals running down to the foot Left leg runoff: Tortuous iliac and common femoral arteries, total occlusion of the left SFA and left popliteal artery and the trifurcation, there are small collaterals running down to the foot CONCLUSIONS: 1. Severe extensive peripheral arterial disease in both legs running with collaterals down to the foot 2. No identifiable artery for intervention DISCUSSION AND RECOMMENDATIONS: Patient had multiple intervention done in [facility], I'll arrange for him to see Dr Rodriguez Anesthesia Type: Conscious Sedation Estimated blood loss (mL): 15 ml Contrast Amount: 13 ml Total Radiation Dose: 28 mGy Post-Procedure Diagnosis Post-operative diagnosis: Osteomyelitis Peripheral arterial disease Hypertension Hyperlipidemia Diabetes mellitus BRIDGER JUSTICE MD May 05, 2019 2:38 pm
[2019-05-05] MEDS ORDERED: PATIENT MAY USE OWN MEDS, ALL PO SCH (14:45)
--- NOTE | 2019-05-05 14:48 | NUR ---
Patient to room CU2 at 1448. Humberto VERGARA transported patient to room, report received from Humberto. Patient is alert and oriented x2 which was reported to me as being his baseline. Patient is calm and pleasant. dorsalis pedis pulses bilaterally are weak although skin is warm and pink. VSS. patient educated on the importance of laying flat and still, patient agreed.
--- NOTE | 2019-05-05 15:40 | NUR ---
This nurse spoke with URSULA Dickson at [facility], I gave harrison an SBAR report on patient. I also went over the discharge packet with Harrison. I explained the importance of holding metformin for 48 hours. Detailed discussions this nurse had with URSULA Dickson at [facility]: cardiac catheterization, mynx closure device, restrictions, incision care and plan for patient. Harrison stated to me that she would contact their transport to alert them that the patient should be ready to be discharged around 7:15-7:30 if things go as planned. Harrison also stated to me that [facility] would contact 's office. Harrison stated that she does not have any further questions. I asked Harrison to please call me back if she has any questions.
--- NOTE | 2019-05-05 16:05 | NUR ---
Pt is on RA VSS. Lung sounds clear throughout bilaterally. Bowel sounds are active. 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 unable to assess lower extremity ROM d/t post cath. patient is alert to person and place, patient is confused, this is reported to be his base line. calm and appropriate. normal sinus rhythm. PERRLA. right groin insertion site dressing c/d/i. apical pulse is normal. dorsalis pedis pulses bilaterally are weak. It is reported by Yessi VERGARA, [facility] that patient's normal is pleasantly confused. patient has dementia. bed in lowest position, wheels locked, call light in reach. bed alarm has been set. will continue to closely monitor.
[2019-05-05] MEDS ORDERED: meTOprolol 5 MG/5 ML (LOPRESSOR) VIAL ONE (17:01)
[2019-05-05] MEDS ORDERED: meTOprolol 5 MG/5 ML (LOPRESSOR) VIAL IV STA (17:01)
--- NOTE | 2019-05-05 17:02 | NUR ---
This nurse notified about hypertension. order received for lopressor 5mg IV stat.
== END 2019-05-05 19:26 ==
LOC: CATH 11:04 → ICU 14:41 → CATH 19:26
PROVIDERS: ATTEND Internal Medicine Cardiovascular Disease
DX: E11.69 Type 2 diabetes mellitus with other specified complication (principal); M86.9 Osteomyelitis, unspecified; I25.10 Atherosclerotic heart disease of native coronary artery without angina pectoris; I73.9 Peripheral vascular disease, unspecified; I63.9 Cerebral infarction, unspecified; I65.23 Occlusion and stenosis of bilateral carotid arteries; I11.9 Hypertensive heart disease without heart failure; E78.2 Mixed hyperlipidemia; G40.909 Epilepsy, unspecified, not intractable, without status epilepticus; F17.210 Nicotine dependence, cigarettes, uncomplicated; Z88.8 Allergy status to other drugs, medicaments and biological substances; Z79.02 Long term (current) use of antithrombotics/antiplatelets; Z79.899 Other long term (current) drug therapy; Z79.84 Long term (current) use of oral hypoglycemic drugs; Z79.82 Long term (current) use of aspirin; Z83.3 Family history of diabetes mellitus
CPT/HCPCS: 36415; 71045; 75716; 80053; 80061; 85027; 85610; 85730; 87081; 93005

== ENCOUNTER 2019-05-14 08:42 | Day surgery (SDC) | payer MEDICARE, MEDICAID ==
[~2019-05-14] VITALS: Ht 177.8 cm; Wt 76.8 kg
[2019-05-14] MEDS ORDERED: ceFAZolin INJECTION 1,000 MG in WATER (STERILE) FOR INJECTION 10 ML IV ONE (09:00)
[2019-05-14] MEDS ORDERED: LACTATED RINGERS 1,000 ML IV PRN ×2 (09:00)
[2019-05-14 09:15] VITALS: BP 150/91
[2019-05-14] MEDS ORDERED: BUPIVACAINE 0.5% 30 ML (SENSORCAINE) VIAL ONE (09:20)
[2019-05-14] MEDS ORDERED: LIDOCAINE 1% INJ 20 ML 20 ML VIAL ONE (09:20)
[2019-05-14] MEDS ORDERED: fentaNYL INJECTION 100 MCG/2 ML AMP ONE (09:25)
[2019-05-14] MEDS ORDERED: PROPOFOL INJECTION 0 ML IV ONE (09:26)
[2019-05-14 12:00] VITALS: BP 160/97
[2019-05-14] MEDS ORDERED: LACTATED RINGERS 1,000 ML IV SCH (12:13)
--- NOTE | 2019-05-14 12:13 | Progress Note-Pre Operative ---
Pre-Operative Progress Note H&P Reviewed The H&P was reviewed, patient examined and no changes noted. Date Seen by Provider: May 14, 2019 Time Seen by Provider: 10:40 Date H&P Reviewed: May 14, 2019 Time H&P Reviewed: 10:40 Pre-Operative Diagnosis: Osteomyelitis left 2nd toe KENTON ANDREA DPM May 14, 2019 12:13
[2019-05-14] MEDS ORDERED: CEPH500C PO (12:17)
--- NOTE | 2019-05-14 12:19 | Progress Note-Post Operative ---
Post-Operative Progess Note Surgeon (s)/Form Setter Supervisor (s) Surgeon KENTON ANDREA DPM Form Setter Supervisor: none Pre-Operative Diagnosis Osteomyelitis left 2nd toe Post-Operative Diagnosis same Procedure & Operative Findings Date of Procedure 05/14/19 Procedure Performed/Findings Amputation of the left 2nd toe Anesthesia Type Local Estimated Blood Loss Estimated blood loss (mL): Minimal Specimens/Packing Specimens Removed left 2nd toe KENTON ANDREA DPM May 14, 2019 12:19
[2019-05-14 12:30] VITALS: BP 156/90
--- NOTE | 2019-05-14 13:30 | NUR ---
gave report to the nurse at [facility]
[2019-05-14 13:55] VITALS: BP 156/90
--- NOTE | 2019-05-14 13:58 | Diagnostic Imaging Report ---
INDICATION: Postoperative. TECHNIQUE: Two views of the left foot. CORRELATION STUDY: None. FINDINGS: Amputations at the first and second MTP joints. Slight increased density at the soft tissues overlying these areas may be reflective of mild amount of edema or perhaps blood. No definitive evidence for foreign body. The third, fourth, and fifth toes are held in partial flexion, limiting their assessment. Generalized bony demineralization is present. IMPRESSION: 1. Postoperative changes of amputation at the phalanges of the first and second digits. Dictated by: Dictated on workstation # [id number]
--- NOTE | 2019-05-14 17:16 | OPERATIVE REPORT ---
DATE OF SERVICE: 05/14/2019 SURGEON: Charlene Andrea DPM PREOPERATIVE DIAGNOSIS: Osteomyelitis, left second toe. POSTOPERATIVE DIAGNOSIS: Osteomyelitis, left second toe. PROCEDURE: Amputation of left second toe. WOUND CLASS: Contaminated. ANESTHESIA: Local. HEMOSTASIS: None. INDICATIONS: This is a 68-year-old male presented to my office with a full thickness wound and exposed bone dorsal aspect of the left second toe. He was referred by wound care after failed attempts to heal the ulceration. Conservative therapy has failed, so the patient is agreeable to surgical intervention after risks and complications were discussed at length. His power of estate planning attorney was informed and consent was given after risks and complications were discussed at length. They understand that with his poor circulation and continued tobacco use, he is a poor candidate to heal an amputation; however, if no action is performed, he has a higher risk of continued infection, sepsis, and even , and they are willing to proceed with the amputation at this time knowing that it may not heal. DESCRIPTION OF PROCEDURE: The patient was brought back to the operating table, placed in secure supine position. Local anesthetic was then given with aseptic technique utilizing 15 mL of 1:1 mixture of 1% Xylocaine, 0.5% Marcaine injected in a local infusion to the second ray of the left foot. Tourniquet was applied, but never inflated. The left foot was then prepped and draped in normal sterile manner. Attention was then directed to the dorsal aspect of the left second toe where a racquet-type incision was created. The proximal portion of the incision was approximately 3 cm in length and extended circumferentially around the proximal phalanx area. Distal to the incision was a full thickness wound with exposed head of the proximal phalanx. Some of this specimen was sent for gross and microscopic evaluation as well as culture and sensitivity. Deep dissection was carried out around the proximal phalanx and there was a disarticulation at the metatarsophalangeal joint of the second ray, left foot. Again, the toe specimen was sent for gross and microscopic evaluation. There is no deep abscess or proximal necrosis noted at this time. There was oozing of hematogenous inflow into the wound. No active pulsatile bleeders were noted. The wound was cleared of extensor and flexor tendons or any questionable or necrotic tissue. The wound was then irrigated with pulse power irrigation utilizing 3000 mL. Once the area was cleansed, a swab culture was taken to confirm aseptic wound prior to closure. Closure was then performed with 4-0 Prolene in a simple interrupted type stitch. Postoperative dressing consisted of Betadine soaked Adaptic, sterile 4 x 4, sterile Kerlix all secured with a Coban wrap. The patient tolerated the anesthesia well and was transported to recovery with dressing intact to the left lower extremity. He is to be nonweightbearing on the left forefoot. He will contact only for transfers and balance. We will see the patient in my office in 1 week period of time or sooner if necessary. He is to continue his oral antibiotic. Job ID: [id number] DocumentID: [id number] Dictated Date: 05/14/2019 13:12:36 Phys Therapist Date: 05/14/2019 17:16:03 Dictated By: CHARLENE ANDREA DPM
== END 2019-05-14 13:55 | disposition home or self-care (01) ==
LOC: SDC 08:42
PROVIDERS: ATTEND Podiatrist Foot & Ankle Surgery
DX: E11.69 Type 2 diabetes mellitus with other specified complication (principal); M86.9 Osteomyelitis, unspecified; E11.42 Type 2 diabetes mellitus with diabetic polyneuropathy; I73.9 Peripheral vascular disease, unspecified; I25.10 Atherosclerotic heart disease of native coronary artery without angina pectoris; E78.2 Mixed hyperlipidemia; I63.9 Cerebral infarction, unspecified; I11.9 Hypertensive heart disease without heart failure; I65.23 Occlusion and stenosis of bilateral carotid arteries; J44.9 Chronic obstructive pulmonary disease, unspecified; G40.909 Epilepsy, unspecified, not intractable, without status epilepticus; F17.210 Nicotine dependence, cigarettes, uncomplicated; F32.9 Major depressive disorder, single episode, unspecified; F01.51 Vascular dementia, unspecified severity, with behavioral disturbance; Z88.6 Allergy status to analgesic agent; Z89.412 Acquired absence of left great toe; Z79.4 Long term (current) use of insulin; Z79.82 Long term (current) use of aspirin; Z79.899 Other long term (current) drug therapy; Z79.02 Long term (current) use of antithrombotics/antiplatelets; Z83.3 Family history of diabetes mellitus
CPT/HCPCS: 73620; 82962; 87070; 87075; 87077; 87081; 87101; 87186; 87205

== ENCOUNTER → 2019-07-15 | Outpatient (CLI) | payer MEDICARE, MEDICAID ==
[~2019-07-15] MED LIST changes: +CEPH500C PO; -GLIM4TAB3 PO; +GLIM4TAB5 PO; +MELA3TAB39 PO; -MELA3TAB65 PO
[2019-07-15 14:23] LABS: BASOPHILS # (AUTO) 0.1 10^3/uL (0.0-0.1); BASOPHILS % (AUTO) 1 % (0-10); EOSINOPHILS # (AUTO) 0.1 10^3/uL (0.0-0.3); EOSINOPHILS % (AUTO) 1 % (0-10); HEMATOCRIT 39 % (40-54); HEMOGLOBIN 13.1 G/DL (13.3-17.7); LYMPHOCYTES # (AUTO) 2.6 X 10^3 (1.0-4.0); LYMPHOCYTES % (AUTO) 29 % (12-44); MEAN CORPUSCULAR HEMOGLOBIN 31 PG (25-34); MEAN CORPUSCULAR HGB CONC 34 G/DL (32-36); MEAN CORPUSCULAR VOLUME 90 FL (80-99); MEAN PLATELET VOLUME 11.6 FL (7.4-10.4); MONOCYTES # (AUTO) 0.9 X 10^3 (0.0-1.0); MONOCYTES % (AUTO) 10 % (0-12); NEUTROPHILS # (AUTO) 5.3 X 10^3 (1.8-7.8); NEUTROPHILS % (AUTO) 59 % (42-75); PLATELET COUNT 228 10^3/uL (130-400); RED CELL DISTRIBUTION WIDTH 12.6 % (10.0-14.5)
[2019-07-15 14:42] LABS: ALBUMIN 4.1 GM/DL (3.2-4.5); BILIRUBIN,TOTAL 0.2 MG/DL (0.1-1.0); CALCIUM 9.6 MG/DL (8.5-10.1); CREATININE SERUM 1.31 MG/DL (0.60-1.30); POTASSIUM 5.1 MMOL/L (3.6-5.0); TOTAL PROTEIN 7.7 GM/DL (6.4-8.2)
--- NOTE | 2019-07-15 14:50 | Diagnostic Imaging Report ---
HISTORY: Preoperative evaluation of cardiac and pulmonary structures prior to administration of anesthesia. Right leg atherosclerosis. COMPARISON: 05/05/2019. TECHNIQUE: Two views of the chest. FINDINGS: Lung volumes are normal. No focal consolidation is seen. There is no pleural effusion or pneumothorax. The cardiac silhouette is normal in size and contour. Old rib fractures are seen bilaterally. There are degenerative changes in the spine with a chronic-appearing anterior wedge deformity in the midthoracic spine. IMPRESSION: 1. No acute pulmonary abnormality is seen. Dictated by: Dictated on workstation # [id number]
== END ==
LOC: CARD 14:03
PROVIDERS: ATTEND Thoracic Surgery (Cardiothoracic Vascular Surgery)
DX: Z01.818 Encounter for other preprocedural examination (principal); I70.235 Atherosclerosis of native arteries of right leg with ulceration of other part of foot
CPT/HCPCS: 36415; 71046; 80053; 85025

== ENCOUNTER 2019-08-09 21:17 | Emergency (ER) | payer MEDICARE, MEDICAID ==
[~2019-08-09] VITALS: Ht 185 cm; Wt 90.0 kg
--- NOTE | 2019-08-09 21:25 | ED Fall/Injury ---
General Stated Complaint: R LEG INJ Source: patient Exam Limitations: no limitations History of Present Illness Date Seen by Provider: Aug 09, 2019 Time Seen by Provider: 21:18 Initial Comments Here with report of right hip pain after fall. He was self-transferring from bed to wheelchair in the dark and slipped and went down on his right hip. Complains of right hip pain. Did not hit his head. Denies back or neck pain. Denies loss of consciousness. Denies other illness or symptoms. He is long-standing diabetic on insulin. Denies blood sugar problems. Occurred: just prior to arrival (45 minutes.) Severity: mild, moderate Injuries/Pain Location: pelvis (right hip) Context: slipped Loss of Consciousness: no loss of consciousness Associated Symptoms (Fall): No Abdominal Pain, No Chest Pain, No Confusion, No Headache, No Lightheadedness, No Muscle Spasms, No Nausea/Vomiting, No Neck Pain, No Shortness of Air Allergies and Home Medications Allergies Coded Allergies: acetaminophen (Verified Allergy, Intermediate, 10/26/17) Home Medications Albuterol Sulfate 2.5 Mg/3 Ml Vial.neb, 2.5 MG NEB UD PRN for SHORTNESS OF BREATH, (Reported) Aspirin 81 Mg Tablet.dr, 81 MG PO DAILY, (Reported) Cephalexin 500 Mg Capsule, 1 CAP PO TID Prescribed by: KENTON ANDREA on 05/14/19 1217 Cholecalciferol (Vitamin D3) Unknown Strength Tablet, 4,000 UNIT PO DAILY, (Reported) Clonazepam 0.5 Mg Tablet, 0.5 MG PO 0600,1400, (Reported) Clonidine HCl 0.2 Mg Tablet, 0.2 MG PO BID, (Reported) HOLD FOR BP<90/50 OR PULSE <50 Clopidogrel Bisulfate 75 Mg Tablet, 75 MG PO DAILY, (Reported) Divalproex Sodium 125 Mg Cap.sprink, 250 MG PO TID, (Reported) TAKES 2 (125MG) CAPSULES Donepezil HCl 10 Mg Tablet, 10 MG PO HS, (Reported) Dulaglutide 0.75 Mg/0.5 Ml Pen.injctr, 0.75 MG SC Quintero, (Reported) Enalapril Maleate 2.5 Mg Tablet, 2.5 MG PO DAILY, (Reported) HOLD FOR BP < 90/50 OR PULSE < 50 Glimepiride 4 Mg Tablet, 4 MG PO DAILY, (Reported) Ibuprofen 200 Mg Tablet, 400 MG PO Q6H PRN for PAIN-MILD, (Reported) Icosapent Ethyl 1 Gm Capsule, 1 GM PO BID, (Reported) Insulin Aspart 100 Unit/1 Ml Susp, 5 UNIT SQ DAILY, (Reported) Lactobacillus Acidophilus/Pect 1 Each Capsule, 1 CAP PO QID, (Reported) Levetiracetam 500 Mg Tablet, 500 MG PO BID, (Reported) Levothyroxine Sodium 175 Mcg Tablet, 175 MCG PO DAILY, (Reported) Mag Hydrox/Al Hydrox/Simeth 30 Ml Oral.susp, 30 ML PO Q4H PRN for INDIGESTION, (Reported) Magnesium Hydroxide 400 Mg/5 Ml Oral.susp, 30 ML PO DAILY PRN for CONSTIPATION- 7TH LINE, (Reported) Melatonin 3 Mg Tablet, 3 MG PO HS, (Reported) Metformin HCl 1,000 Mg Tablet, 1,000 MG PO BID Hold Metformin for 48 hours Prescribed by: BRIDGER RAMIREZ on 05/05/19 1434 Metoprolol Tartrate 25 Mg Tablet, 25 MG PO BID, (Reported) HOLD IF BP < 90/50 OR PULSE <60 Mirtazapine 15 Mg Tablet, 7.5 MG PO HS, (Reported) TAKES 1/2 (15MG) TABLET Rivastigmine 1 Each Patch.td24, 9.5 MG TD DAILY, (Reported) Simvastatin 10 Mg Tablet, 10 MG PO HS, (Reported) Tamsulosin HCl 0.4 Mg Cap, 0.4 MG PO DAILY, (Reported) Venlafaxine HCl 37.5 Mg Cap.er.24h, 37.5 MG PO DAILY, (Reported) Patient Home Medication List Home Medication List Reviewed: Yes Review of Systems Review of Systems Constitutional: no symptoms reported Ears, Nose, Mouth, Throat: no symptoms reported Respiratory: no symptoms reported Cardiovascular: no symptoms reported Gastrointestinal: no symptoms reported Musculoskeletal: see HPI; No back pain; joint pain; No neck pain Skin: no symptoms reported Psychiatric/Neurological: No Symptoms Reported Past Ozdyqlm-Lfbdru-Pgihih Hx Past Med/Social Hx: Reviewed Nursing Past Med/Soc Hx Patient Social History Alcohol Use: Denies Use Recreational Drug Use: No Type Used: Cigarettes 2nd Hand Smoke Exposure: No Recent Hopitalizations: No Immunizations Up To Date Tetanus Booster (TDap): Unknown PED Vaccines UTD: No Date of Pneumonia Vaccine: Mar 20, 2004 Date of Influenza Vaccine: Feb 12, 2019 Seasonal Allergies Seasonal Allergies: No Past Medical History Surgeries: Yes (KNEE AND BACK SURGERY: DISCECTOMY AND FUSIONS, TOE AMPUTATION) Amputation, Coronary Stent, Orthopedic Respiratory: Yes COPD Cardiac: Yes Coronary Artery Disease, Hypertension Neurological: Yes Dementia, Seizure Disorder, Stroke Reproductive Disorders: No Genitourinary: No Gastrointestinal: Yes Gastroesophageal Reflux Musculoskeletal: Yes ( CHRONIC PAIN ) Degenerate Disk Disease, Arthritis Endocrine: Yes Diabetes, Insulin dep, Hypothyroidsim HEENT: No Cancer: No Psychosocial: Yes Anxiety, Depression Integumentary: No Blood Disorders: No Family Medical History Reviewed Nursing Family Hx Cardiovascular disease 19 FATHER 19 MOTHER Diabetes mellitus G8 BROTHER FH: cancer Thyroid disease 19 MOTHER (HYPOTHYROIDISM) Physical Exam Vital Signs Vital Signs - First Documented 08/09/19 21:19 Temp 37.1 Pulse 74 Resp 18 B/P (MAP) 114/79 (91) Pulse Ox 97 Capillary Refill : Height, Weight, BMI Height: 5'10.00" Weight: 180lbs. 0.0oz. 81.957624us; 24.29 BMI Method:Stated General Appearance: WD/WN, no apparent distress HEENT: PERRL/EOMI, pharynx normal Neck: non-tender, full range of motion, supple, normal inspection Cardiovascular: regular rate, rhythm, no murmur Respiratory: lungs clear, normal breath sounds Gastrointestinal: non tender, soft Back: normal inspection, no CVA tenderness, no vertebral tenderness Extremities: pelvis stable, other (mild tenderness to the lateral aspect of the right hip without shortening or rotation) Neurologic/Psychiatric: alert, oriented x 3 Skin: normal color, warm/dry Progress/Results/Core Measures Results/Orders Lab Results Laboratory Tests Test 08/09/19 22:25 08/09/19 22:45 Range/Units Urine Color YELLOW Urine Clarity CLEAR Urine pH 5.5 5-9 Urine Specific [place] >=1.030 1.016-1.022 Urine Protein 2+ H NEGATIVE Urine Glucose (UA) NEGATIVE NEGATIVE Urine Ketones TRACE H NEGATIVE Urine Nitrite NEGATIVE NEGATIVE Urine Bilirubin NEGATIVE NEGATIVE Urine Urobilinogen 0.2 < = 1.0 MG/DL Urine Leukocyte Esterase NEGATIVE NEGATIVE Urine RBC (Auto) NEGATIVE NEGATIVE Urine RBC NONE /HPF Urine WBC 0-2 /HPF Urine Crystals PRESENT H /LPF Urine Amorphous Sediment FEW NELSON URATES H /LPF Urine Bacteria NEGATIVE /HPF Urine Casts NONE /LPF Urine Mucus SMALL H /LPF Urine Culture Indicated NO White Blood Count 10.2 4.3-11.0 10^3/uL Red Blood Count 3.71 L 4.35-5.85 10^6/uL Hemoglobin 11.5 L 13.3-17.7 G/DL Hematocrit 33 L 40-54 % Mean Corpuscular Volume 90 80-99 FL Mean Corpuscular Hemoglobin 31 25-34 PG Mean Corpuscular Hemoglobin Concent 35 32-36 G/DL Red Cell Distribution Width 12.8 10.0-14.5 % Platelet Count 174 130-400 10^3/uL Mean Platelet Volume 11.6 H 7.4-10.4 FL Neutrophils (%) (Auto) 65 42-75 % Lymphocytes (%) (Auto) 24 12-44 % Monocytes (%) (Auto) 9 0-12 % Eosinophils (%) (Auto) 1 0-10 % Basophils (%) (Auto) 1 0-10 % Neutrophils # (Auto) 6.6 1.8-7.8 X 10^3 Lymphocytes # (Auto) 2.4 1.0-4.0 X 10^3 Monocytes # (Auto) 1.0 0.0-1.0 X 10^3 Eosinophils # (Auto) 0.1 0.0-0.3 10^3/uL Basophils # (Auto) 0.1 0.0-0.1 10^3/uL Prothrombin Time 13.3 12.2-14.7 SEC INR Comment 1.0 0.8-1.4 Activated Partial Thromboplast Time 29 24-35 SEC Sodium Level 136 135-145 MMOL/L Potassium Level 4.8 3.6-5.0 MMOL/L Chloride Level 99 98-107 MMOL/L Carbon Dioxide Level 24 21-32 MMOL/L Anion Gap 13 5-14 MMOL/L Blood Urea Nitrogen 21 H 7-18 MG/DL Creatinine 1.23 0.60-1.30 MG/DL Estimat Glomerular Filtration Rate 59 BUN/Creatinine Ratio 17 Glucose Level 167 H 70-105 MG/DL Calcium Level 9.5 8.5-10.1 MG/DL Corrected Calcium 9.7 8.5-10.1 MG/DL Total Bilirubin 0.2 0.1-1.0 MG/DL Aspartate Amino Transf (AST/SGOT) 18 5-34 U/L Alanine Aminotransferase (ALT/SGPT) 10 0-55 U/L Alkaline Phosphatase 81 40-136 U/L Troponin I < 0.028 <0.028 NG/ML Total Protein 6.7 6.4-8.2 GM/DL Albumin 3.8 3.2-4.5 GM/DL My Orders Orders - TASIA CONWAY MD Pelvis With Right Hip 2-3views (08/09/19 21:23) Ed Iv/Invasive Line Start (08/09/19 21:44) Ekg Tracing (08/09/19:44) Chest 1 View, Ap/Pa Only (08/09/19:44) Cbc With Automated Diff (08/09/19:44) Comprehensive Metabolic Panel (08/09/19:44) Ua Culture If Indicated (08/09/19:44) Protime With Inr (08/09/19 22:26) Partial Thromboplastin Time (08/09/19 22:26) Troponin I (08/09/19 22:26) Ct Head Wo (08/09/19 22:34) Fentanyl Injection (Sublimaze Injection (08/09/19 22:58) Catheter(Urinary) Insert & Ass 03,15 (08/09/19 23:10) Vital Signs/I&O 08/09/19 21:19 Temp 37.1 Pulse 74 Resp 18 B/P (MAP) 114/79 (91) Pulse Ox 97 Progress Progress Note : Progress Note Seen and evaluated. Pelvis and right hip x-ray ordered. Monitor patient. 2215: We have added labs and chest x-ray as right hip is fractured in the region of the neck. Slightly comminuted. I have discussed the case with Dr. Yun. He has looked at the films and believes the patient needs a total hip replacement due to arthritic changes in the acetabular space and the patient is ambulatory. He does not do total hip replacements. Recommending transfer to facility that does. 2230: EKG machine read shows acute OR with minimal ST elevation in the anterior leads and probable inferior infarct in the inferior leads. I have compared that to previous and there is very similar morphology. I discussed the case with Dr. Ramirez, patient's escort service attendant. He has reviewed the EKG. He thinks this is all old and not any new infarct given that the patient has deep Q waves. Also similar morphology to previous. Patient is without chest pain. He has significant coronary vascular disease as well as peripheral arterial disease. He had previous heart catheter in 2018 with severe disease and was recommended to follow-up with Dr. Gillis at [facility] in [place]. After discussion with Dr. Ramirez, he would agree that that would still continue. 2300: Patient has significant challenges with vascular access and I was finally able to get an ultrasound guided peripheral catheter to the left AC with 20-gauge Angiocath. Labs are pending. We will get CT of the head is patient reports that he is on Plavix. He denies hitting his head but we will evaluate to ensure. Anticipate transfer to [facility] in [place], [place]. [place] catheter was placed and fentanyl 50 g IV ordered. Monitor patient. 2328: I did discuss the case with Dr. Weaver in the emergency department at [facility] in [facility]. He has accepted the patient in transfer ER to ER. Patient agrees to plan. Troponin is negative. This does not look like acute infarct and patient is still chest pain- free. Transfer via EMS. Dispatch notified. Initial ECG Impression Date: Aug 09, 2019 Initial ECG Impression Time: 22:19 Initial ECG Rate: 71 Initial ECG Rhythm: Normal Sinus Initial ECG Comparisson: Unchanged Comment Sinus rhythm with question of inferior infarct. There are deep Q waves and questionable ST elevation that is minimal in the inferior leads. All of this is very similar when compared to previous EKG on 07/15/19. The EKG was reviewed by Dr. Ramirez as well. He believes this is old infarct and not a new infarct. Chronic changes overall. Left axis deviation noted. This is also similar. Diagnostic Imaging Diagonstic Imaging: Xray Plain Films/CT/US/NM/MRI: pelvis, hip Comments [facility] [place] NAME: JOLLY WEAVER Jose [facility] REC#: [id number] PT STATUS: REG ER : 1950 PHYSICIAN: TASIA CONWAY MD ADMIT DATE: 08/09/19/ER Draft Date of Exam:08/09/19 PELVIS WITH RIGHT HIP 2-3VIEWS INDICATION: Right hip pain COMPARISON: None. FINDINGS: AP view of the pelvis and 2 dedicated radiographic views of the right hip were obtained. There is abnormal angulation of the proximal femur best visualized on the frog leg view of the right hip. There is also the suggestion of focal cortical defect. Findings are consistent with underlying fracture. Femoral acetabular joint space is maintained. Left hip has an unremarkable appearance. No additional acute fractures of the osseous pelvis are identified. Indwelling arterial stents are noted. IMPRESSION: 1. Subtle findings of acute fracture of the proximal right femur. Dictated on workstation # [id number] Dict: 08/09/192148 Trans: 08/09/192153 [facility] [id number] Interpreted by: RAVEN SUAREZ MD Electronically signed by: Reviewed: Reviewed by Me Diagonstic Imaging: Xray Plain Films/CT/US/NM/MRI: chest Comments [facility] [place] [place] NAME: JOLLY WEAVER [facility] REC#: [id number] PT STATUS: REG ER : 1950 PHYSICIAN: TASIA CONWAY MD ADMIT DATE: 08/09/19/ER Draft Date of Exam:08/09/19 CHEST 1 VIEW, AP/PA ONLY INDICATION: Fall COMPARISON: 07/15/2019 FINDINGS: Single frontal view of the chest demonstrates normal heart size and pulmonary vascularity. The lungs are well aerated and clear. No large pleural effusion or pneumothorax is seen. The visualized osseous structures show no acute abnormalities. There is calcified aortic atherosclerosis. IMPRESSION: 1. No acute cardiopulmonary process. Dictated on workstation # [id number] Dict: 08/09/192148 Trans: 08/09/192152 [facility] [id number] Interpreted by: RAVEN SUAREZ MD Electronically signed by: Diagonstic Imaging: CT Plain Films/CT/US/NM/MRI: head Comments No evidence of acute fracture or intracranial hemorrhage Reviewed: Reviewed by Me Departure Impression Primary Impression: Hip fracture, right Qualified Codes: S72.001A - Fracture of unspecified part of neck of right femur, initial encounter for closed fracture Additional Impressions: Coronary artery disease Qualified Codes: I25.10 - Atherosclerotic heart disease of [place] coronary artery without angina pectoris Peripheral artery disease Transfer Transfer Reason: Exceeds level of care Time Spoke to Accepting Phy: 23:28 Transfer Facility: [place], [place], Dr. Weaver accepting in the emergency department. Method of Transfer: EMS Departure-Patient Inst. Referrals: JOLLY DELANEY MD (PCP/Family) Primary Care Physician TASIA CONWAY MD Aug 09, 2019 21:25
--- NOTE | 2019-08-09 21:53 | Diagnostic Imaging Report ---
INDICATION: Fall COMPARISON: 07/15/2019 FINDINGS: Single frontal view of the chest demonstrates normal heart size and pulmonary vascularity. The lungs are well aerated and clear. No large pleural effusion or pneumothorax is seen. The visualized osseous structures show no acute abnormalities. There is calcified aortic atherosclerosis. IMPRESSION: 1. No acute cardiopulmonary process. Dictated by: Dictated on workstation # [id number]
--- NOTE | 2019-08-09 21:55 | Diagnostic Imaging Report ---
INDICATION: Right hip pain COMPARISON: None. FINDINGS: AP view of the pelvis and 2 dedicated radiographic views of the right hip were obtained. There is abnormal angulation of the proximal femur best visualized on the frog leg view of the right hip. There is also the suggestion of focal cortical defect. Findings are consistent with underlying fracture. Femoral acetabular joint space is maintained. Left hip has an unremarkable appearance. No additional acute fractures of the osseous pelvis are identified. Indwelling arterial stents are noted. IMPRESSION: 1. Subtle findings of acute fracture of the proximal right femur. Dictated by: Dictated on workstation # [id number]
[2019-08-09 22:46] LABS: BILIRUBIN,URINE NEGATIVE (NEGATIVE); CLARITY,URINE CLEAR; COLOR,URINE YELLOW; GLUCOSE, URINE (UA) NEGATIVE (NEGATIVE); KETONES,URINE TRACE (NEGATIVE); LEUKOCYTE ESTERASE ,URINE NEGATIVE (NEGATIVE); NITRITE,URINE NEGATIVE (NEGATIVE); PH,URINE 5.5 (5-9); PROTEIN,URINE 2+ (NEGATIVE)
[2019-08-09] MEDS ORDERED: fentaNYL INJECTION 100 MCG/2 ML AMP IVP STA ×2 (22:58→23:44)
[2019-08-09 22:59] LABS: AMORPHOUS SEDIMENT,UR FEW AMOR URATES /LPF; BACTERIA,URINE NEGATIVE /HPF; WBC,URINE 0-2 /HPF
[2019-08-09 23:00] LABS: BASOPHILS # (AUTO) 0.1 10^3/uL (0.0-0.1); BASOPHILS % (AUTO) 1 % (0-10); EOSINOPHILS # (AUTO) 0.1 10^3/uL (0.0-0.3); EOSINOPHILS % (AUTO) 1 % (0-10); HEMATOCRIT 33 % (40-54); HEMOGLOBIN 11.5 G/DL (13.3-17.7); LYMPHOCYTES # (AUTO) 2.4 X 10^3 (1.0-4.0); LYMPHOCYTES % (AUTO) 24 % (12-44); MEAN CORPUSCULAR HEMOGLOBIN 31 PG (25-34); MEAN CORPUSCULAR HGB CONC 35 G/DL (32-36); MEAN CORPUSCULAR VOLUME 90 FL (80-99); MEAN PLATELET VOLUME 11.6 FL (7.4-10.4); MONOCYTES % (AUTO) 9 % (0-12); NEUTROPHILS # (AUTO) 6.6 X 10^3 (1.8-7.8); NEUTROPHILS % (AUTO) 65 % (42-75); PLATELET COUNT 174 10^3/uL (130-400); RED CELL DISTRIBUTION WIDTH 12.8 % (10.0-14.5); WHITE BLOOD COUNT 10.2 10^3/uL (4.3-11.0)
[2019-08-09 23:07] LABS: ALBUMIN 3.8 GM/DL (3.2-4.5); CHLORIDE 99 MMOL/L (98-107); POTASSIUM 4.8 MMOL/L (3.6-5.0); SODIUM 136 MMOL/L (135-145)
[2019-08-09 23:08] LABS: CALCIUM 9.5 MG/DL (8.5-10.1)
[2019-08-09 23:09] LABS: GLUCOSE 167 MG/DL (70-105); TOTAL PROTEIN 6.7 GM/DL (6.4-8.2)
[2019-08-09 23:10] LABS: CARBON DIOXIDE 24 MMOL/L (21-32); PROTHROMBIN TIME PATIENT 13.3 SEC (12.2-14.7)
[2019-08-09 23:11] LABS: BILIRUBIN,TOTAL 0.2 MG/DL (0.1-1.0)
[2019-08-09 23:12] LABS: ALKALINE PHOSPHATASE 81 U/L (40-136)
[2019-08-09 23:13] LABS: CREATININE SERUM 1.23 MG/DL (0.60-1.30); GFR ESTIMATED 59
[2019-08-09 23:14] LABS: BUN/CREATININE RATIO 17
[2019-08-09 23:16] LABS: ALANINE AMINOTRANSFERASE 10 U/L (0-55)
[2019-08-10 00:17] VITALS: BP 143/87
--- NOTE | 2019-08-10 07:00 | Diagnostic Imaging Report ---
PROCEDURE: CT head without contrast. TECHNIQUE: Multiple contiguous axial images were obtained through the brain without the use of intravenous contrast. Auto Exposure Controls were utilized during the CT exam to meet ALARA standards for radiation dose reduction. INDICATION: Witnessed fall when transferring from wheelchair to the bed. Pain EXAMINATION: CT brain without contrast 08/09/2019 COMPARISON: 03/11/2018 FINDINGS: There is diffuse chronic ischemic disease in the periventricular deep white matter distribution with more focal encephalomalacia in the right frontal parietal region. These findings are stable. No acute infarct is seen. No mass, mass effect or midline shift. There is no acute hemorrhage. Paranasal sinuses and mastoid air cells are clear. IMPRESSION: 1. No acute intracranial process with chronic findings as above. Findings agree with the preliminary report. Dictated by: Dictated on workstation # [id number]
== END 2019-08-10 00:17 ==
LOC: EDUNIT# 21:17 → ER 21:18
DX: S72.001A Fracture of unspecified part of neck of right femur, initial encounter for closed fracture (principal); I25.10 Atherosclerotic heart disease of native coronary artery without angina pectoris; E11.51 Type 2 diabetes mellitus with diabetic peripheral angiopathy without gangrene; I10 Essential (primary) hypertension; J44.9 Chronic obstructive pulmonary disease, unspecified; G40.909 Epilepsy, unspecified, not intractable, without status epilepticus; K21.9 Gastro-esophageal reflux disease without esophagitis; F03.90 Unspecified dementia, unspecified severity, without behavioral disturbance, psychotic disturbance, mood disturbance, and anxiety; E03.9 Hypothyroidism, unspecified; F41.9 Anxiety disorder, unspecified; F32.9 Major depressive disorder, single episode, unspecified; Z88.6 Allergy status to analgesic agent; Z95.5 Presence of coronary angioplasty implant and graft; Z86.73 Personal history of transient ischemic attack (TIA), and cerebral infarction without residual deficits; Z79.82 Long term (current) use of aspirin; Z79.02 Long term (current) use of antithrombotics/antiplatelets; Z79.4 Long term (current) use of insulin; Z82.49 Family history of ischemic heart disease and other diseases of the circulatory system; W01.0XXA Fall on same level from slipping, tripping and stumbling without subsequent striking against object, initial encounter
CPT/HCPCS: 36415; 70450; 71045; 80053; 81000; 84484; 85025; 85610; 85730; 93005

== ENCOUNTER 2019-08-15 07:53 | Emergency (ER) | payer MEDICARE, MEDICAID ==
[~2019-08-15] VITALS: Ht 177 cm; Wt 72.0 kg
--- NOTE | 2019-08-15 07:57 | ED Lower Extremity ---
General Stated Complaint: R HIP PAIN Source: patient, EMS History of Present Illness Date Seen by Provider: August 15, 2019 Time Seen by Provider: 07:57 Initial Comments 69-year-old male presents with right hip pain. Patient [facility] from [facility] shelter reports he fell around 7:30 this morning under his right hip. Patient had a total hip done in [place] on 08/10/19. Patient complains of pain. Patient states he probably can move his hip but is unwilling to due to the pain. Patient has no other complaints at this time. Allergies and Home Medications Allergies Coded Allergies: acetaminophen (Verified Allergy, Intermediate, 10/26/17) Home Medications Albuterol Sulfate 2.5 Mg/3 Ml Vial.neb, 2.5 MG NEB UD PRN for SHORTNESS OF BREATH, (Reported) Aspirin 81 Mg Tablet.dr, 81 MG PO DAILY, (Reported) Cephalexin 500 Mg Capsule, 1 CAP PO TID Prescribed by: KENTON ANDREA on 05/14/19 1217 Cholecalciferol (Vitamin D3) Unknown Strength Tablet, 4,000 UNIT PO DAILY, (Reported) Clonazepam 0.5 Mg Tablet, 0.5 MG PO 0600,1400, (Reported) Clonidine HCl 0.2 Mg Tablet, 0.2 MG PO BID, (Reported) HOLD FOR BP<90/50 OR PULSE <50 Clopidogrel Bisulfate 75 Mg Tablet, 75 MG PO DAILY, (Reported) Divalproex Sodium 125 Mg Cap.sprink, 250 MG PO TID, (Reported) TAKES 2 (125MG) CAPSULES Donepezil HCl 10 Mg Tablet, 10 MG PO HS, (Reported) Dulaglutide 0.75 Mg/0.5 Ml Pen.injctr, 0.75 MG SC Quintero, (Reported) Enalapril Maleate 2.5 Mg Tablet, 2.5 MG PO DAILY, (Reported) HOLD FOR BP < 90/50 OR PULSE < 50 Glimepiride 4 Mg Tablet, 4 MG PO DAILY, (Reported) Ibuprofen 200 Mg Tablet, 400 MG PO Q6H PRN for PAIN-MILD, (Reported) Icosapent Ethyl 1 Gm Capsule, 1 GM PO BID, (Reported) Insulin Aspart 100 Unit/1 Ml Susp, 5 UNIT SQ DAILY, (Reported) Lactobacillus Acidophilus/Pect 1 Each Capsule, 1 CAP PO QID, (Reported) Levetiracetam 500 Mg Tablet, 500 MG PO BID, (Reported) Levothyroxine Sodium 175 Mcg Tablet, 175 MCG PO DAILY, (Reported) Mag Hydrox/Al Hydrox/Simeth 30 Ml Oral.susp, 30 ML PO Q4H PRN for INDIGESTION, (Reported) Magnesium Hydroxide 400 Mg/5 Ml Oral.susp, 30 ML PO DAILY PRN for CONSTIPATION- 7TH LINE, (Reported) Melatonin 3 Mg Tablet, 3 MG PO HS, (Reported) Metformin HCl 1,000 Mg Tablet, 1,000 MG PO BID Hold Metformin for 48 hours Prescribed by: BRIDGER JUSTICE on 05/05/19 1434 Metoprolol Tartrate 25 Mg Tablet, 25 MG PO BID, (Reported) HOLD IF BP < 90/50 OR PULSE <60 Mirtazapine 15 Mg Tablet, 7.5 MG PO HS, (Reported) TAKES 1/2 (15MG) TABLET Rivastigmine 1 Each Patch.td24, 9.5 MG TD DAILY, (Reported) Simvastatin 10 Mg Tablet, 10 MG PO HS, (Reported) Tamsulosin HCl 0.4 Mg Cap, 0.4 MG PO DAILY, (Reported) Venlafaxine HCl 37.5 Mg Cap.er.24h, 37.5 MG PO DAILY, (Reported) Patient Home Medication List Home Medication List Reviewed: Yes Review of Systems Constitutional: No chills, No fever Respiratory: no symptoms reported Cardiovascular: no symptoms reported Gastrointestinal: no symptoms reported Musculoskeletal: see HPI Skin: see HPI Past Jsdlbqa-Kugnqb-Rhhvwq Hx Past Med/Social Hx: Reviewed Nursing Past Med/Soc Hx Patient Social History Alcohol Beverage of Choice: Beer Type Used: Cigarettes 2nd Hand Smoke Exposure: No Recent Hopitalizations: No Immunizations Up To Date Tetanus Booster (TDap): Unknown PED Vaccines UTD: Yes Date of Pneumonia Vaccine: Mar 20, 2004 Date of Influenza Vaccine: Feb 12, 2019 Seasonal Allergies Seasonal Allergies: No Past Medical History Surgeries: Yes (KNEE AND BACK SURGERY: DISCECTOMY AND FUSIONS, TOE AMPUTATION) Amputation, Coronary Stent, Orthopedic Respiratory: Yes COPD Cardiac: Yes Coronary Artery Disease, Hypertension Neurological: Yes Dementia, Seizure Disorder, Stroke Reproductive Disorders: No Genitourinary: No Gastrointestinal: Yes Gastroesophageal Reflux Musculoskeletal: Yes ( CHRONIC PAIN ) Degenerate Disk Disease, Arthritis Endocrine: Yes Diabetes, Insulin dep, Hypothyroidsim HEENT: No Cancer: No Psychosocial: Yes Anxiety, Depression Integumentary: No Blood Disorders: No Family Medical History Cardiovascular disease 19 FATHER 19 MOTHER Diabetes mellitus G8 BROTHER FH: cancer Thyroid disease 19 MOTHER (HYPOTHYROIDISM) Physical Exam Vital Signs Vital Signs - First Documented 08/15/19 07:53 Temp 36.7 Pulse 87 Resp 16 B/P (MAP) 165/88 (113) Pulse Ox 98 O2 Delivery Room Air Capillary Refill : Height, Weight, BMI Height: 5'10.00" Weight: 180lbs. 0.0oz. 81.971953xa; 26.00 BMI Method:Stated General Appearance: WD/WN, no apparent distress Cardiovascular: normal peripheral pulses, regular rate, rhythm Respiratory: chest non-tender, lungs clear Gastrointestinal: non tender, soft Hips: right hip soft tissue tenderness, right hip other (incision c/d/i) Knees: bilateral knee non-tender Ankles: bilateral ankle non-tender Neurologic/Psychiatric: alert, normal mood/affect, oriented x 3 Skin: other (incision clear dry intact, no swelling, ) Lymphatic: no adenopathy Progress/Results/Core Measures Results/Orders My Orders Orders - SABA ESPINOZA DO Hip, Right, 2 Views (08/15/19 07:57) Vital Signs/I&O 08/15/19 07:53 Temp 36.7 Pulse 87 Resp 16 B/P (MAP) 165/88 (113) Pulse Ox 98 O2 Delivery Room Air Diagnostic Imaging Diagonstic Imaging: Xray Plain Films/CT/US/NM/MRI: hip Comments [facility] [place] NAME: JOLLY MANZANARES [facility] REC#: [id number] PT STATUS: REG ER : 1950 PHYSICIAN: SABA ESPINOZA DO ADMIT DATE: 08/15/19/ER Draft Date of Exam:08/15/19 HIP, RIGHT, 2 VIEWS Indication: Follow-up right hip fracture. Comparison: 08/09/2019. Discussion: Two views of the right hip were obtained postoperatively. Total right hip arthroplasty is present. No hardware complications. No fracture or dislocation. Soft tissues are unremarkable. No unexpected foreign body. Impression: 1. Total right hip arthroplasty within normal postoperative limits. Dictated on workstation # [id number] Departure Impression Primary Impression: Contusion of hip Qualified Codes: S70.02XA - Contusion of left hip, initial encounter Disposition: 01 HOME, SELF-CARE Condition: Stable Departure-Patient Inst. Referrals: JOLLY DELANEY MD (PCP/Family) Primary Care Physician Patient Instructions: Contusion (DC), Preventing Falls in the Older Adult Add. Discharge Instructions: Follow-up with your orthopedic surgeon in the next 1-2 days. Call in the a.m. for an appointment time Please closely follow post operative instructions SABA ESPINOZA DO August 15, 2019 07:57
--- NOTE | 2019-08-15 08:23 | NUR ---
[facility] NOTIFIED TO COME AND GET THE PT
--- NOTE | 2019-08-15 08:25 | Diagnostic Imaging Report ---
Indication: Follow-up right hip fracture. Comparison: 08/09/2019. Discussion: Two views of the right hip were obtained postoperatively. Total right hip arthroplasty is present. No hardware complications. No fracture or dislocation. Soft tissues are unremarkable. No unexpected foreign body. Impression: 1. Total right hip arthroplasty within normal postoperative limits. Dictated by: Dictated on workstation # [id number]
--- NOTE | 2019-08-15 08:40 | NUR ---
NOTIIFED OF HIS RESULTS AND THAT FACILITY WOULD BE COMING TO GET HIM.
--- NOTE | 2019-08-15 09:20 | NUR ---
PT NOTIFIED OF STORM AND THAT [facility] WOULD PROBABLY COME AND GET HIM AFTER.
[2019-08-15 10:06] VITALS: BP 154/81
== END 2019-08-15 10:06 | disposition home or self-care (01) ==
LOC: EDUNIT# 07:53 → ER 07:54
DX: S70.02XA Contusion of left hip, initial encounter (principal); I10 Essential (primary) hypertension; E11.9 Type 2 diabetes mellitus without complications; J44.9 Chronic obstructive pulmonary disease, unspecified; I25.10 Atherosclerotic heart disease of native coronary artery without angina pectoris; G40.909 Epilepsy, unspecified, not intractable, without status epilepticus; F03.90 Unspecified dementia, unspecified severity, without behavioral disturbance, psychotic disturbance, mood disturbance, and anxiety; F41.9 Anxiety disorder, unspecified; F32.9 Major depressive disorder, single episode, unspecified; K21.9 Gastro-esophageal reflux disease without esophagitis; E03.9 Hypothyroidism, unspecified; Z86.73 Personal history of transient ischemic attack (TIA), and cerebral infarction without residual deficits; Z88.6 Allergy status to analgesic agent; Z79.82 Long term (current) use of aspirin; Z79.02 Long term (current) use of antithrombotics/antiplatelets; Z79.4 Long term (current) use of insulin; Z95.5 Presence of coronary angioplasty implant and graft; Z82.49 Family history of ischemic heart disease and other diseases of the circulatory system; W19.XXXA Unspecified fall, initial encounter; Y92.129 Unspecified place in nursing home as the place of occurrence of the external cause
CPT/HCPCS: 73502

== ENCOUNTER 2020-03-31 11:32 | Emergency (ER) | payer MEDICARE, MEDICAID ==
[~2020-03-31] VITALS: Ht 177.8 cm; Wt 74.8 kg
[~2020-03-31 11:32] MED LIST changes: +ASPI-1238 PO; -ASPI-983 PO; +CHOL500050 PO; +CLN.2T PO; -CLON0.2T PO; +CLON1TAB13 PO; +DOCU-143 PO; +ENLP2.5T PO; +FERR325T18 PO; +GABA300C PO; +INSU100I29 SC; +MIRT-96 PO; -MIRT15TA PO; +MIRT7.5T8 PO; +OXC5T PO; +PANT40TA52 PO
--- NOTE | 2020-03-31 11:44 | ED Fall/Injury ---
General Chief Complaint: Trauma-Non Activation Stated Complaint: FALL Source: patient, EMS Exam Limitations: no limitations History of Present Illness Date Seen by Provider: Mar 31, 2020 Time Seen by Provider: 11:31 Initial Comments The patient presents to the ER by EMS from [facility] with chief complaint that about some time doing 1030 11:00 he had an unwitnessed fall and then got himself back up. He denies any loss of consciousness during before or after the fall. He has a hematoma on his left frontal forehead. He is not on blood thinners. He does not routinely take pain medicines. He says he is not having any significant pain and does not want anything for it. He is otherwise at baseline per staff. Not on blood thinners. He does take Plavix however. He is diabetic on insulin. Allergies and Home Medications Allergies Coded Allergies: acetaminophen (Verified Allergy, Intermediate, 10/26/17) Home Medications Albuterol Sulfate 2.5 Mg/3 Ml Vial.neb, 2.5 MG NEB UD PRN for SHORTNESS OF BREATH, (Reported) Cholecalciferol (Vitamin D3) 125 Mcg Capsule, 125 MCG PO DAILY, (Reported) Clonazepam 1 Mg Tablet, 1 MG PO BID Prescribed by: ELIA KAT on 12/23/19923 Clonidine HCl 0.2 Mg Tablet, 0.2 MG PO BID Prescribed by: ELIA KAT on 12/23/19923 Clopidogrel Bisulfate 75 Mg Tablet, 75 MG PO DAILY, (Reported) Divalproex Sodium 125 Mg Cap.sprink, 250 MG PO TID, (Reported) TAKES 2 (125MG) CAPSULES Docusate Sodium 100 Mg Capsule, 100 MG PO BID PRN for CONSTIPATION-1ST LINE, (Reported) Donepezil HCl 10 Mg Tablet, 10 MG PO HS, (Reported) Dulaglutide 0.75 Mg/0.5 Ml Pen.injctr, 0.75 MG SC Quintero, (Reported) Enalapril Maleate 2.5 Mg Tablet, 2.5 MG PO DAILY, (Reported) HOLD FOR BP < 90/50 OR PULSE < 50 Ferrous Sulfate 325 Mg Tablet, 325 MG PO Q48H, (Reported) Gabapentin 300 Mg Capsule, 300 MG PO HS, (Reported) Glimepiride 4 Mg Tablet, 4 MG PO DAILY, (Reported) Icosapent Ethyl 1 Gm Capsule, 1 GM PO BID, (Reported) Insulin Aspart 100 Unit/1 Ml Susp, 5 UNIT SQ AC, (Reported) Insulin Detemir 100 Unit/1 Ml Insuln.pen, 20 UNITS SC DAILY, (Reported) Lactobacillus Acidophilus/Pect 1 Each Capsule, 1 CAP PO QID, (Reported) Levetiracetam 500 Mg Tablet, 500 MG PO BID, (Reported) Levothyroxine Sodium 175 Mcg Tablet, 175 MCG PO DAILY, (Reported) Mag Hydrox/Al Hydrox/Simeth 30 Ml Oral.susp, 30 ML PO Q4H PRN for INDIGESTION, (Reported) Magnesium Hydroxide 400 Mg/5 Ml Oral.susp, 30 ML PO DAILY PRN for CONSTIPATION- 7TH LINE, (Reported) Melatonin 3 Mg Tablet, 3 MG PO HS, (Reported) Metformin HCl 1,000 Mg Tablet, 1,000 MG PO BID, (Reported) Metoprolol Tartrate 25 Mg Tablet, 25 MG PO BID, (Reported) HOLD IF BP < 90/50 OR PULSE <60 Mirtazapine 7.5 Mg Tablet, 7.5 MG PO HS, (Reported) Oxycodone Hcl 5 Mg Tablet, 10 MG PO Q4H PRN for PAIN-SEVERE (8-10) Prescribed by: ELIA KAT on 12/23/19 0924 Pantoprazole Sodium 40 Mg Tablet.dr, 40 MG PO DAILY, (Reported) Rivastigmine 9.5 Mg Patch, 9.5 MG TD DAILY, (Reported) Simvastatin 10 Mg Tablet, 10 MG PO HS, (Reported) Tamsulosin HCl 0.4 Mg Cap, 0.4 MG PO DAILY, (Reported) Venlafaxine HCl 37.5 Mg Cap.er.24h, 37.5 MG PO DAILY, (Reported) Patient Home Medication List Home Medication List Reviewed: Yes Review of Systems Review of Systems Constitutional: No chills, No diaphoresis Eyes: Denies Blindness, Denies Blurred Vision Ears, Nose, Mouth, Throat: denies ear pain, denies ear discharge Respiratory: No cough, No short of breath Cardiovascular: No chest pain, No palpitations Gastrointestinal: No abdominal pain, No nausea, No vomiting Genitourinary: No discharge, No dysuria Musculoskeletal: No back pain, No joint pain Skin: see HPI Past Ttcjarw-Ysnbjz-Hdgqin Hx Patient Social History Alcohol Use: Past History Number of Drinks Today: AA Alcohol Beverage of Choice: Beer Recreational Drug Use: Yes (HISTORY) Smoking Status: Current Everyday Smoker Type Used: Cigarettes 2nd Hand Smoke Exposure: No Recent Hopitalizations: No Immunizations Up To Date Tetanus Booster (TDap): Unknown PED Vaccines UTD: Yes Date of Pneumonia Vaccine: Jul 16, 2017 Date of Influenza Vaccine: Feb 12, 2019 Seasonal Allergies Seasonal Allergies: No Past Medical History Surgeries: Yes (KNEE AND BACK SURGERY: DISCECTOMY AND FUSIONS, TOE AMPUTATION) Amputation, Coronary Stent, Orthopedic Respiratory: Yes COPD Cardiac: Yes Coronary Artery Disease, Hypertension Neurological: Yes Dementia, Seizure Disorder, Stroke Reproductive Disorders: No Genitourinary: No Gastrointestinal: Yes Gastroesophageal Reflux Musculoskeletal: Yes ( CHRONIC PAIN ) Degenerate Disk Disease, Arthritis Endocrine: Yes Diabetes, Insulin dep, Hypothyroidsim HEENT: No Cancer: No Psychosocial: Yes Anxiety, Depression Integumentary: No Blood Disorders: No Family Medical History Cardiovascular disease 19 FATHER 19 MOTHER Diabetes mellitus G8 BROTHER FH: cancer Thyroid disease 19 MOTHER (HYPOTHYROIDISM) No Pertinent Family Hx Physical Exam Vital Signs Vital Signs - First Documented 03/31/20 11:34 Temp 36.4 Pulse 68 Resp 20 B/P (MAP) 137/91 (106) Pulse Ox 98 O2 Delivery Room Air Capillary Refill : Height, Weight, BMI Height: 5'10.00" Weight: 180lbs. 0.0oz. 81.271895hw; 28.27 BMI Method:Stated General Appearance: WD/WN, no apparent distress HEENT: PERRL/EOMI, normal ENT inspection, TMs normal, pharynx normal, other (Negative for ballesteros sign, raccoon eyes or hemotympanum. He has a 2-1/2 cm diameter modest hematoma over his left frontal scalp.) Neck: non-tender, normal inspection (C-collar precaution in place.) Cardiovascular: normal peripheral pulses, regular rate, rhythm Respiratory: chest non-tender, lungs clear, normal breath sounds, no r espiratory distress, no accessory muscle use Peripheral Pulses: 2+ Radial Pulses (R), 2+ Radial Pulses (L) Gastrointestinal: normal bowel sounds, non tender, soft Extremities: normal range of motion, non-tender, normal inspection Neurologic/Psychiatric: alert, normal mood/affect, oriented x 3 (Person place and time) Jyothi Coma Score Best Eye Response: (4) Open Spontaneously Best Verbal Response: (5) Oriented Best Motor Response: (6) Obeys Commands Clayton Total: 15 Progress/Results/Core Measures Results/Orders Lab Results Laboratory Tests Test 03/31/20 11:46 Range/Units Glucometer 115 H 70-110 MG/DL My Orders Orders - JV COLE Ct Head/Cervical Spine Wo (03/31/20 11:40) Accucheck Stat ONCE (03/31/20 11:44) Vital Signs/I&O 03/31/20 11:34 Temp 36.4 Pulse 68 Resp 20 B/P (MAP) 137/91 (106) Pulse Ox 98 O2 Delivery Room Air Progress Progress Note #1: Time: 11:43 Progress Note If his Accu-Chek is okay and his CT head and C-spine are normal then will allow him to follow-up outpatient. Progress Note #2: Time: 13:08 Progress Note C-collar off at 1300. Patient's had no material deterioration during his stay. He is hungry and ready to go home. We have called for a ride. Diagnostic Imaging Diagonstic Imaging: CT (Without IV contrast) Plain Films/CT/US/NM/MRI: c-spine, head Comments NAME: JOLLY MANZANARES [facility] REC#: [id number] PT STATUS: REG ER : 1950 PHYSICIAN: JV COLE MD ADMIT DATE: 03/31/20/ER Draft Date of Exam:03/31/20 CT HEAD/CERVICAL SPINE WO Clinical indications: Patient brought in by EMS from [facility] with complaints of fall. Patient has knot on forehead. Patient has dementia. Exam: Axial Head CT without IV contrast with sagittal and coronal reformations. Axial CT scan of the cervical spine with sagittal and coronal reformations. Auto Exposure Controls were utilized during the CT exam to meet ALARA standards for radiation dose reduction. Comparison: Head CT without contrast dated 08/09/2019. CT scan of the head and cervical spine without contrast dated 03/11/2018. Findings: Head CT: There is no evidence of acute cerebral infarct, intracranial hemorrhage, or gross mass effect. There is a small area of encephalomalacia involving the lateral high right frontal lobe region which extends to the right centrum ovale region of the right frontal lobe and vazquez radiata/periventricular region. Again seen patchy and consolidated areas of low-attenuation white matter changes involving both cerebral hemispheres and periventricular regions. There is no hydrocephalus. Ventricle sizes are mildly prominent, likely related to diffuse brain parenchymal volume loss which is stable. There is a small area of extracranial soft tissue swelling involving the left frontal region. There is no skull fracture. Paranasal sinuses and mastoid air cells are clear. Cervical spine: There is no interval acute cervical spine fracture. There is stable grade 1 anterolisthesis C2 on C4 and C4 on C5 with solid bony bridging/fusion of the C3-C5 levels. There is no significant change to the vertebral body spurs and facet arthropathy. There is no significant neck soft tissue abnormality. Visualized upper lung montoya are clear. Impression: 1: There is no evidence of acute intracranial process. There is no intracranial hemorrhage or skull fracture. There is a small area of extracranial soft tissue swelling in the left frontal region likely related to recent trauma. 2: Stable cervical spine with no evidence of interval acute fracture. Dictated on workstation # [id number] Dict: 03/31/20 1227 Trans: 03/31/20 1254 CV [id number] Interpreted by: JOSE ASHBY MD Electronically signed by: Reviewed: Reviewed by Me Departure Impression Primary Impression: Fall Qualified Codes: W19.XXXA - Unspecified fall, initial encounter Additional Impression: Hematoma Disposition: 01 HOME, SELF-CARE Condition: Stable Departure-Patient Inst. Decision time for Depature: 13:01 Referrals: JOLLY DELANEY MD (PCP/Family) Primary Care Physician Patient Instructions: HEMATOMA Add. Discharge Instructions: Expect to be tired and irritable for the next couple days. Get plenty of rest. Tylenol 1000 mg every 8 hours as necessary for headache. Ice pack applied directly to the hematoma for 20 minutes every 2 hours as necessary for pain. All discharge instructions reviewed with patient and/or family. Voiced understanding. JV COLE Mar 31, 2020 11:44
--- NOTE | 2020-03-31 12:54 | Diagnostic Imaging Report ---
Clinical indications: Patient brought in by EMS from [facility] with complaints of fall. Patient has knot on forehead. Patient has dementia. Exam: Axial Head CT without IV contrast with sagittal and coronal reformations. Axial CT scan of the cervical spine with sagittal and coronal reformations. Auto Exposure Controls were utilized during the CT exam to meet ALARA standards for radiation dose reduction. Comparison: Head CT without contrast dated 08/09/2019. CT scan of the head and cervical spine without contrast dated 03/11/2018. Findings: Head CT: There is no evidence of acute cerebral infarct, intracranial hemorrhage, or gross mass effect. There is a small area of encephalomalacia involving the lateral high right frontal lobe region which extends to the right centrum ovale region of the right frontal lobe and vazquez radiata/periventricular region. Again seen patchy and consolidated areas of low-attenuation white matter changes involving both cerebral hemispheres and periventricular regions. There is no hydrocephalus. Ventricle sizes are mildly prominent, likely related to diffuse brain parenchymal volume loss which is stable. There is a small area of extracranial soft tissue swelling involving the left frontal region. There is no skull fracture. Paranasal sinuses and mastoid air cells are clear. Cervical spine: There is no interval acute cervical spine fracture. There is stable grade 1 anterolisthesis C2 on C4 and C4 on C5 with solid bony bridging/fusion of the C3-C5 levels. There is no significant change to the vertebral body spurs and facet arthropathy. There is no significant neck soft tissue abnormality. Visualized upper lung montoya are clear. Impression: 1: There is no evidence of acute intracranial process. There is no intracranial hemorrhage or skull fracture. There is a small area of extracranial soft tissue swelling in the left frontal region likely related to recent trauma. 2: Stable cervical spine with no evidence of interval acute fracture. Dictated by: Dictated on workstation # [id number]
--- NOTE | 2020-03-31 13:06 | NUR ---
CONTACTED [facility] AND SPOKE WITH JADYEN. PT IS READY FOR DISCHARGE.
[2020-03-31 13:47] VITALS: BP 154/88
== END 2020-03-31 13:47 | disposition home or self-care (01) ==
LOC: EDUNIT# 11:32 → ER 11:33
DX: S00.03XA Contusion of scalp, initial encounter (principal); I10 Essential (primary) hypertension; F41.9 Anxiety disorder, unspecified; E03.9 Hypothyroidism, unspecified; J44.9 Chronic obstructive pulmonary disease, unspecified; F03.90 Unspecified dementia, unspecified severity, without behavioral disturbance, psychotic disturbance, mood disturbance, and anxiety; G40.909 Epilepsy, unspecified, not intractable, without status epilepticus; F32.9 Major depressive disorder, single episode, unspecified; K21.9 Gastro-esophageal reflux disease without esophagitis; E11.9 Type 2 diabetes mellitus without complications; F17.210 Nicotine dependence, cigarettes, uncomplicated; Z82.49 Family history of ischemic heart disease and other diseases of the circulatory system; Z83.3 Family history of diabetes mellitus; Z80.9 Family history of malignant neoplasm, unspecified; Z95.5 Presence of coronary angioplasty implant and graft; Z79.890 Hormone replacement therapy; Z88.6 Allergy status to analgesic agent; Z79.4 Long term (current) use of insulin; W18.30XA Fall on same level, unspecified, initial encounter
CPT/HCPCS: 70450; 72125; 82962

== ENCOUNTER 2020-07-04 10:00 | Outpatient (CLI) | payer MEDICARE, MEDICAID ==
[~2020-07-04] VITALS: Ht 167.7 cm; Wt 78.2 kg
[2020-07-04] MEDS ORDERED: VENL75CA93 PO (11:15)
[2020-07-04] MEDS ORDERED: CLON1TAB PO (11:15)
[2020-07-04] MEDS ORDERED: CLN.2T PO (11:15)
[2020-07-04] MEDS ORDERED: METO50TA15 PO (11:15)
[2020-07-04] MEDS ORDERED: MIRT15TA6 PO (11:15)
== END 2020-07-04 11:16 | disposition home or self-care (01) ==
LOC: PREOP 10:00
PROVIDERS: ATTEND Specialist
DX: Z01.818 Encounter for other preprocedural examination (principal)

== ENCOUNTER 2020-07-07 07:55 | Day surgery (SDC) | payer MEDICARE, MEDICAID ==
[~2020-07-07] VITALS: Ht 167.7 cm; Wt 78.2 kg
[~2020-07-07 07:55] MED LIST changes: +CLON1TAB PO; +METO50TA15 PO; +MIRT15TA6 PO
[2020-07-07] MEDS ORDERED: TIMOLOL MALEATE 0.5% 5 ML (TIMOPTIC) BTL OU PRN (08:15)
[2020-07-07] MEDS ORDERED: POVIDONE (BETADINE) OPHTH SOLN 5% 30 ML OP ONE (08:15)
[2020-07-07] MEDS ORDERED: MOXIFLOXACIN OPHTH SOLN 5 MG/ML 0.3 ML SYRINGE OP ONE (08:15)
[2020-07-07] MEDS ORDERED: LIDOCAINE PF 1% 2 ML VIAL IR PRN (08:15)
[2020-07-07] MEDS: TETRACAINE 0.5% OPHTH SOLN 4 ML BTL (SINGLE DOSE ONLY) OU PRN ×4 (08:30→08:49)
[2020-07-07] MEDS ORDERED: MIDAZOLAM 2 MG/2 ML (VERSED) VIAL ONE (08:32)
[2020-07-07] MEDS: TROPICAMIDE 1% OPH SOLN (MYDRIACYL) 15 ML BTL OP SCH ×3 (08:38→08:49)
[2020-07-07] MEDS: PHENYLEPHRINE 10% OPHTH (NEO-SYN) 5 ML BTL OU SCH ×3 (08:38→08:49)
[2020-07-07 08:45] VITALS: BP 177/98
--- NOTE | 2020-07-07 08:52 | Ophthalmologist Pre-Op Note ---
Pre-Operative Progress Note H&P Reviewed The H&P was reviewed, patient examined and no changes noted. Date H&P Reviewed: Jul 07, 2020 Time H&P Reviewed: 08:52 Pre-Op Dx Cataract, Right Eye BOBBY REEDER MD Jul 07, 2020 08:52
[2020-07-07] MEDS ORDERED: CARBACHOL 1.5 ML (MIOSTAT) VIAL IO ONE (09:15)
--- NOTE | 2020-07-07 09:26 | Ophthalmologist Pre-Op Note ---
Pre-Operative Progress Note H&P Reviewed The H&P was reviewed, patient examined and no changes noted. Date H&P Reviewed: Jul 07, 2020 Time H&P Reviewed: 09:01 Pre-Op Dx Cataract, Left Eye BOBBY REEDER MD Jul 07, 2020 09:26
--- NOTE | 2020-07-07 09:27 | Ophthalmology Operative Report ---
Cataract, Miotic Pupil PREOPERATIVE DIAGNOSIS: 1. Cataract Left Eye 2. Miotic Pupil POSTOPERATIVE DIAGNOSIS: 1. Cataract Left Eye 2. Miotic Pupil PROCEDURE: 1. Cataract removal and placement of posterior chamber implant, left eye 2. Pupillary expansion with malyugin ring SURGEON: Fabian Reeder ANESTHESIA: Topical with sedation COMPLICATIONS: developed angle closure preop ESTIMATED BLOOD LOSS: Minimal DESCRIPTION OF PROCEDURE: After proper informed consent was obtained, the patient, a 69 male, was taken to the Operating Room and the left eye was anesthetized with Tetracaine. The eye w as then prepped and draped in the usual manner. A wire lid speculum was placed. A paracentesis was made at the left hand position. Preservative free lidocaine was injected into anterior chamber followed by viscoelastic. A clear corneal incision was made in the temporal position. The malyugin ring was injected into the anterior chamber and the pupil was dilated. A capsulorrhexis was preformed and the central nuclear and cortical material were removed. The posterior capsule was polished and Tyrel 22.0 AU00T0 IOL was placed into the capsular bag. The myalgian ring was removed. The residual viscoelastic was aspirated and the balanced saline solution was injected into the anterior chamber. Miochol was injected. Moxifloxacin was injected into the anterior chamber. The wound was checked and found to be water tight. The patient tolerated the procedure well without complications. FABIAN REEDER MD Jul 07, 2020 09:27
[2020-07-07] MEDS ORDERED: acetaZOLAMIDE ER 500 MG CAP (DIAMOX SEQUELS) PO ONE (09:30)
[2020-07-07 09:40] VITALS: BP 194/98
--- NOTE | 2020-07-07 12:17 | Anesthesia-General Post-Op ---
MAC Patient Condition Mental Status/LOC: Same as Preop Cardiovascular: Satisfactory Nausea/Vomiting: Absent Respiratory: Satisfactory Pain: Controlled Complications: Absent Post Op Complications Complications None Follow Up Care/Instructions Patient Instructions None needed. Anesthesiology Discharge Order Discharge Order Patient is doing well, no complaints, stable vital signs, no apparent adverse anesthesia problems. No complications reported per nursing. MANNY CORCORAN CRNA Jul 07, 2020 12:17
== END 2020-07-07 09:40 | disposition home or self-care (01) ==
LOC: SDC 07:55
PROVIDERS: ATTEND Specialist
DX: H25.12 Age-related nuclear cataract, left eye (principal); H57.03 Miosis; J44.9 Chronic obstructive pulmonary disease, unspecified; R56.9 Unspecified convulsions; I10 Essential (primary) hypertension; E11.51 Type 2 diabetes mellitus with diabetic peripheral angiopathy without gangrene; I25.119 Atherosclerotic heart disease of native coronary artery with unspecified angina pectoris; F32.9 Major depressive disorder, single episode, unspecified; F41.9 Anxiety disorder, unspecified; F01.50 Vascular dementia, unspecified severity, without behavioral disturbance, psychotic disturbance, mood disturbance, and anxiety; D64.9 Anemia, unspecified; Z89.9 Acquired absence of limb, unspecified; Z88.8 Allergy status to other drugs, medicaments and biological substances; Z79.899 Other long term (current) drug therapy; Z79.02 Long term (current) use of antithrombotics/antiplatelets; Z86.73 Personal history of transient ischemic attack (TIA), and cerebral infarction without residual deficits; Z79.4 Long term (current) use of insulin
CPT/HCPCS: 66982; 82962; V2632

== ENCOUNTER 2020-07-15 13:37 | Emergency (ER) | payer MEDICARE, MEDICAID ==
[~2020-07-15] VITALS: Ht 175.3 cm; Wt 99.3 kg
[2020-07-15 14:11] LABS: BASOPHILS # (AUTO) 0.1 10^3/uL (0.0-0.1); BASOPHILS % (AUTO) 1 % (0-10); EOSINOPHILS # (AUTO) 0.1 10^3/uL (0.0-0.3); EOSINOPHILS % (AUTO) 1 % (0-10); HEMATOCRIT 39 % (40-54); HEMOGLOBIN 12.2 g/dL (13.3-17.7); LYMPHOCYTES # (AUTO) 2.6 10^3/uL (1.0-4.0); LYMPHOCYTES % (AUTO) 25 % (12-44); MEAN CORPUSCULAR HEMOGLOBIN 31 pg (25-34); MEAN CORPUSCULAR HGB CONC 32 g/dL (32-36); MEAN CORPUSCULAR VOLUME 98 fL (80-99); MEAN PLATELET VOLUME 12.5 fL (9.0-12.2); MONOCYTES % (AUTO) 9 % (0-12); NEUTROPHILS # (AUTO) 6.7 10^3/uL (1.8-7.8); NEUTROPHILS % (AUTO) 63 % (42-75); PLATELET COUNT 170 10^3/uL (130-400); WHITE BLOOD COUNT 10.6 10^3/uL (4.3-11.0)
[2020-07-15 14:28] LABS: ALBUMIN 3.8 GM/DL (3.2-4.5); BILIRUBIN,TOTAL 0.2 MG/DL (0.1-1.0); CREATININE SERUM 1.84 MG/DL (0.60-1.30); MAGNESIUM 1.4 MG/DL (1.6-2.4); POTASSIUM 3.8 MMOL/L (3.6-5.0); TOTAL PROTEIN 6.6 GM/DL (6.4-8.2)
[2020-07-15 14:50] LABS: FREE T4 (FREE THYROXINE) 0.78 NG/DL (0.70-1.48); VALPROIC ACID 9.8 UG/ML (50.0-100.0)
[2020-07-15] MEDS ORDERED: MAGNESIUM 1 GM/100 ML IVPB 100 ML IV ONE ×2 (15:15→16:45)
[2020-07-15] MEDS ORDERED: NS IV 1000 ML 1,000 ML IV ONE ×2 (15:15→16:45)
[2020-07-15 18:15] LABS: BILIRUBIN,URINE NEGATIVE (NEGATIVE); CLARITY,URINE CLEAR; COLOR,URINE YELLOW; GLUCOSE, URINE (UA) NEGATIVE (NEGATIVE); KETONES,URINE NEGATIVE (NEGATIVE); LEUKOCYTE ESTERASE ,URINE NEGATIVE (NEGATIVE); NITRITE,URINE NEGATIVE (NEGATIVE); PROTEIN,URINE 1+ (NEGATIVE)
[2020-07-15 18:29] LABS: BACTERIA,URINE NEGATIVE /HPF; URINE OTHER FEW SPERM /HPF; WBC,URINE RARE /HPF
--- NOTE | 2020-07-15 18:51 | ED General ---
General Chief Complaint: Neurological Problems Stated Complaint: POSSIBLE STROKE Nursing Triage Note: PT ARRIVED BY EMS WITH CHIEF COMPLAINT OF STROKE LIKE SYMPTOMS. [facility] WITH COMPLAINT OF POSSIBLE STROKE. THEY STATED THAT THE PATIENT HAD TONGUE STICKING OUT, WEAKNESS TO LEFT SIDE, PUPILS THAT WERE FIXATED AND BS CHECKED WAS 207 (WHICH HYPERGLYCEMIA IS NORMAL FOR PT). SHE STATED PT STARTED NEW MEDICATION FOR CATARACTS AND NOT SURE IF THAT IS CAUSING HIS ISSUES. SHE ALSO SHATED PT'S SPEECH IS SLOWER. PT ON ARRIVAL WAS ABLE TO ANSWER QUESTIONS APPROPRIATELY. DR. CARRILLO DID [facility] ON ARRIVAL AND PT FOLLOWED COMMANDS, ANSWERED QUESTIONS APPROPRIATELY AND HAD STRONG STRENGTH IN ALL FOUR EXREMITIES. PT'S VITALS WERE TAKEN ON ARRIVAL, BLOOD WAS DRAWN FROM IV ATTEMPT, PT WAS HOOKED UP TO THE MONITOR, AND REPORT WAS GIVEN TO PROVIDER. FROM EMS REPORT, THE PATIENTS LAST KNOWN WELL TIME WAS FRIDAY. PT DID STATE THAT HE FELT GENERALIZED WEAKNESS. Nursing Sepsis Screen: No Definite Risk Source of Information: Patient Exam Limitations: No Limitations History of Present Illness Date Seen by Provider: Jul 15, 2020 Time Seen by Provider: 13:40 Initial Comments This 69-year-old gentleman from [facility] presents to the emergency room via EMS with complaints of generalized weakness. The long-term staff was concerned about stroke, but he has no focal deficits identified by EMS on the [place] stroke scale. He reports feeling very weak. Speech is sluggish but clear. He is alert to person, place, and age but cannot identify the month. He states symptoms started yesterday and worsened today. He denies any pain. He has had no other signs of infectious illness such as vomiting, diarrhea, cough, or fever. Patient reports he is nonambulatory and uses a wheelchair at the long-term. Allergies and Home Medications Allergies Coded Allergies: acetaminophen (Verified Allergy, Intermediate, 10/26/17) Home Medications Albuterol Sulfate 2.5 Mg/3 Ml Vial.neb, 2.5 MG NEB UD PRN for SHORTNESS OF BREATH, (Reported) Cholecalciferol (Vitamin D3) 125 Mcg Capsule, 100 MCG PO DAILY, (Reported) Clonazepam 1 Mg Tablet, 0.5 MG PO BID, (Reported) Clonidine HCl 0.2 Mg Tablet, 0.2 MG PO BID, (Reported) Clopidogrel Bisulfate 75 Mg Tablet, 75 MG PO DAILY, (Reported) Divalproex Sodium 125 Mg Cap.sprink, 125 MG PO TID, (Reported) Docusate Sodium 100 Mg Capsule, 100 MG PO BID, (Reported) Donepezil HCl 10 Mg Tablet, 10 MG PO HS, (Reported) Dulaglutide 0.75 Mg/0.5 Ml Pen.injctr, 0.75 MG SC Quintero, (Reported) Enalapril Maleate 2.5 Mg Tablet, 2.5 MG PO DAILY, (Reported) HOLD FOR BP < 90/50 OR PULSE < 50 Ferrous Sulfate 325 Mg Tablet, 325 MG PO Q48H, (Reported) Gabapentin 300 Mg Capsule, 300 MG PO HS, (Reported) Icosapent Ethyl 1 Gm Capsule, 1 GM PO BID, (Reported) Insulin Aspart 100 Unit/1 Ml Susp, 5-8 UNIT SQ TIDAC, (Reported) Insulin Detemir 100 Unit/1 Ml Insuln.pen, 30 UNITS SC DAILY, (Reported) Lactobacillus Acidophilus/Pect 1 Each Capsule, 1 CAP PO QID, (Reported) Levetiracetam 500 Mg Tablet, 500 MG PO BID, (Reported) Levothyroxine Sodium 175 Mcg Tablet, 175 MCG PO DAILY, (Reported) Mag Hydrox/Al Hydrox/Simeth 30 Ml Oral.susp, 30 ML PO Q4H PRN for INDIGESTION, (Reported) Magnesium Hydroxide 400 Mg/5 Ml Oral.susp, 30 ML PO DAILY PRN for CONSTIPATION- 1ST LINE, (Reported) Melatonin 3 Mg Tablet, 3 MG PO HS, (Reported) Metformin HCl 1,000 Mg Tablet, 1,000 MG PO BID, (Reported) Metoprolol Tartrate 50 Mg Tablet, 50 MG PO BID, (Reported) Mirtazapine 15 Mg Tablet, 15 MG PO HS, (Reported) Tamsulosin HCl 0.4 Mg Cap, 0.4 MG PO DAILY, (Reported) Venlafaxine HCl 75 Mg Cap.er.24h, 75 MG PO DAILY, (Reported) Patient Home Medication List Home Medication List Reviewed: Yes Review of Systems Review of Systems Constitutional: see HPI EENTM: no symptoms reported Respiratory: no symptoms reported Cardiovascular: no symptoms reported Gastrointestinal: no symptoms reported Genitourinary: no symptoms reported Musculoskeletal: no symptoms reported Skin: no symptoms reported Psychiatric/Neurological: See HPI Hematologic/Lymphatic: No Symptoms Reported Immunological/Allergic: no symptoms reported Past Brquzuu-Txqvdw-Pqshim Hx Past Med/Social Hx: Reviewed Nursing Past Med/Soc Hx Patient Social History Alcohol Use: Denies Use Number of Drinks Today: AA Alcohol Beverage of Choice: Beer Type Used: Cigarettes 2nd Hand Smoke Exposure: No Recent Infectious Disease Expo: No Recent Hopitalizations: No Immunizations Up To Date Tetanus Booster (TDap): Unknown PED Vaccines UTD: Yes Date of Pneumonia Vaccine: Jul 16, 2017 Date of Influenza Vaccine: Feb 12, 2019 Seasonal Allergies Seasonal Allergies: No Past Medical History Surgeries: Yes (KNEE AND BACK SURGERY: DISCECTOMY AND FUSIONS, TOE AMPUTATION) Amputation, Coronary Stent, Orthopedic Respiratory: Yes COPD Cardiac: Yes Coronary Artery Disease, Hypertension Neurological: Yes Dementia, Seizure Disorder, Stroke Reproductive Disorders: No Genitourinary: No Gastrointestinal: Yes Gastroesophageal Reflux Musculoskeletal: Yes ( CHRONIC PAIN ) Degenerate Disk Disease, Arthritis Endocrine: Yes Diabetes, Insulin dep, Hypothyroidsim HEENT: No Cancer: No Psychosocial: Yes Anxiety, Depression Integumentary: No Blood Disorders: No Family Medical History Cardiovascular disease 19 FATHER 19 MOTHER Diabetes mellitus G8 BROTHER FH: cancer Thyroid disease 19 MOTHER (HYPOTHYROIDISM) No Pertinent Family Hx Physical Exam Vital Signs Vital Signs - First Documented 07/15/20 13:40 Temp 35.7 Pulse 61 Resp 19 B/P (MAP) 100/62 (75) Pulse Ox 96 O2 Delivery Room Air Capillary Refill : Less Than 3 Seconds Height, Weight, BMI Height: 5'10.00" Weight: 180lbs. 0.0oz. 81.950693tn; 32.00 BMI Method:Stated General Appearance: No Apparent Distress, WD/WN HEENT: PERRL/EOMI, Normal ENT Inspection, Pharynx Normal Neck: Normal Inspection Respiratory: Lungs Clear, Normal Breath Sounds, No Accessory Muscle Use Cardiovascular: Regular Rate, Rhythm, No Edema, No Murmur Gastrointestinal: Normal Bowel Sounds, Non Tender, Soft Extremity: Normal Inspection, No Pedal Edema Neurologic/Psychiatric: Alert, Normal Mood/Affect, user experience architect II-XII Norm as Tested, Other (Disoriented to month. Generalized global weakness. No focal deficits identified. Normal qmrapu-ox-apaz and jgpm-sx-xlgd) Skin: Normal Color, Warm/Dry Progress/Results/Core Measures Suspected Sepsis Recent Fever Within 48 Hours: No Infection Criteria Present: None New/Unexplained Altered Menta: No Sepsis Screen: No Definite Risk SIRS Temperature: Pulse: 61 Respiratory Rate: 19 Laboratory Tests 07/15/20 13:55: White Blood Count 10.6 Blood Pressure 100 /62 Mean: 75 Laboratory Tests 07/15/20 13:55: Creatinine 1.84H, Platelet Count 170, Total Bilirubin 0.2 Results/Orders Lab Results Laboratory Tests Test 07/15/20 13:43 07/15/20 13:55 07/15/20 18:10 Range/Units Glucometer 151 H 70-110 MG/DL White Blood Count 10.6 4.3-11.0 10^3/uL Red Blood Count 3.95 L 4.30-5.52 10^6/uL Hemoglobin 12.2 L 13.3-17.7 g/dL Hematocrit 39 L 40-54 % Mean Corpuscular Volume 98 80-99 fL Mean Corpuscular Hemoglobin 31 25-34 pg Mean Corpuscular Hemoglobin Concent 32 32-36 g/dL Red Cell Distribution Width 13.2 10.0-14.5 % Platelet Count 170 130-400 10^3/uL Mean Platelet Volume 12.5 H 9.0-12.2 fL Immature Granulocyte % (Auto) 0 % Neutrophils (%) (Auto) 63 42-75 % Lymphocytes (%) (Auto) 25 12-44 % Monocytes (%) (Auto) 9 0-12 % Eosinophils (%) (Auto) 1 0-10 % Basophils (%) (Auto) 1 0-10 % Neutrophils # (Auto) 6.7 1.8-7.8 10^3/uL Lymphocytes # (Auto) 2.6 1.0-4.0 10^3/uL Monocytes # (Auto) 1.0 0.0-1.0 10^3/uL Eosinophils # (Auto) 0.1 0.0-0.3 10^3/uL Basophils # (Auto) 0.1 0.0-0.1 10^3/uL Immature Granulocyte # (Auto) 0.0 0.0-0.1 10^3/uL Sodium Level 135 135-145 MMOL/L Potassium Level 3.8 3.6-5.0 MMOL/L Chloride Level 104 98-107 MMOL/L Carbon Dioxide Level 17 L 21-32 MMOL/L Anion Gap 14 5-14 MMOL/L Blood Urea Nitrogen 38 H 7-18 MG/DL Creatinine 1.84 H 0.60-1.30 MG/DL Estimat Glomerular Filtration Rate 37 BUN/Creatinine Ratio 21 Glucose Level 157 H 70-105 MG/DL Calcium Level 9.0 8.5-10.1 MG/DL Corrected Calcium 9.2 8.5-10.1 MG/DL Magnesium Level 1.4 L 1.6-2.4 MG/DL Total Bilirubin 0.2 0.1-1.0 MG/DL Aspartate Amino Transf (AST/SGOT) 14 5-34 U/L Alanine Aminotransferase (ALT/SGPT) 17 0-55 U/L Alkaline Phosphatase 99 40-136 U/L C-Reactive Protein High Sensitivity 0.08 0.00-0.50 MG/DL Total Protein 6.6 6.4-8.2 GM/DL Albumin 3.8 3.2-4.5 GM/DL Thyroid Stimulating Hormone (TSH) 6.68 H 0.35-4.94 UIU/ML Free Thyroxine 0.78 0.70-1.48 NG/DL Valproic Acid (Depakene) Level 9.8 L 50.0-100.0 UG/ML Urine Color YELLOW Urine Clarity CLEAR Urine pH 7.0 5-9 Urine Specific [place] 1.020 1.016-1.022 Urine Protein 1+ H NEGATIVE Urine Glucose (UA) NEGATIVE NEGATIVE Urine Ketones NEGATIVE NEGATIVE Urine Nitrite NEGATIVE NEGATIVE Urine Bilirubin NEGATIVE NEGATIVE Urine Urobilinogen 1.0 < = 1.0 MG/DL Urine Leukocyte Esterase NEGATIVE NEGATIVE Urine RBC (Auto) NEGATIVE NEGATIVE Urine RBC NONE /HPF Urine WBC RARE /HPF Urine Squamous Epithelial Cells NONE /HPF Urine Crystals NONE /LPF Urine Bacteria NEGATIVE /HPF Urine Casts NONE /LPF Urine Mucus NEGATIVE /LPF Urine Other FEW SPERM H /HPF Urine Culture Indicated NO My Orders Orders - CAROL CARRILLO MD Cbc With Automated Diff (07/15/20 13:49) Comprehensive Metabolic Panel (07/15/20 13:49) Hs C Reactive Protein (07/15/20 13:49) Magnesium (07/15/20 13:49) Ua Culture If Indicated (07/15/20 13:49) Ed Iv/Invasive Line Start (07/15/20 13:49) Valproic Acid (07/15/20 13:51) Thyroid Stimulating Hormone (07/15/20 13:51) Free T4 (Free Thyroxine) (07/15/20 13:51) Ns Iv 1000 Ml (Sodium Chloride 0.9%) (07/15/20 15:15) Magnesium 1 Gm/100 Ml Ivpb (Magnesium Quintero (07/15/20 15:15) Ns Iv 1000 Ml (Sodium Chloride 0.9%) (07/15/20 16:45) Magnesium 1 Gm/100 Ml Ivpb (Magnesium Quintero (07/15/20 16:45) Medications Given in ED Current Medications Medications Dose Ordered Sig/Manuel Route Start Time Stop Time Status Last Admin Dose Admin Magnesium Sulfate/ Dextrose 100 ml @ 100 mls/hr ONCE ONCE IV 07/15/20 15:15 07/15/20 16:14 DC 07/15/20 15:39 100 MLS/HR Magnesium Sulfate/ Dextrose 100 ml @ 100 mls/hr ONCE ONCE IV 07/15/20 16:45 07/15/20 17:44 DC 07/15/20 17:03 100 MLS/HR Sodium Chloride 1,000 ml @ 0 mls/hr Q0M ONCE IV 07/15/20 15:15 07/15/20 15:16 DC 07/15/20 15:40 1,000 MLS/HR Sodium Chloride 1,000 ml @ 0 mls/hr Q0M ONCE IV 07/15/20 16:45 07/15/20 16:46 DC 07/15/20 17:03 1,000 MLS/HR Vital Signs/I&O 07/15/20 07/15/20 13:40 18:56 Temp 35.7 Pulse 61 72 Resp 19 16 B/P (MAP) 100/62 (75) 133/66 Pulse Ox 96 99 O2 Delivery Room Air Room Air Capillary Refill : Less Than 3 Seconds Blood Pressure Mean: 75 Progress Note : Progress Note Patient was found to have acute kidney injury and low magnesium. He received 2 L of IV normal saline and 2 g of magnesium. He had significant improvement in symptoms afterwards. He was able to sit up, stand, and to take a few steps with minimal assistance. Speech was crisp. He was more alert. He was ultimately discharged back to the long-term. Departure Impression Primary Impression: Acute kidney injury Additional Impressions: Generalized weakness Hypomagnesemia Disposition: 01 HOME, SELF-CARE Condition: Improved Departure-Patient Inst. Decision time for Depature: 18:46 Referrals: JOLLY DELANEY MD (PCP/Family) Primary Care Physician Patient Instructions: Acute Kidney Injury Add. Discharge Instructions: Encourage plenty of clear liquids and a well-balanced diet. Follow-up with your primary care provider on Friday. Call with questions or concerns. Return to the emergency room if you have any worsening condition. All discharge instructions reviewed with patient and/or family. Voiced underst anding. Copy Copies To 1: JOLLY DELANEY MD, JOSHUA T MD Jul 15, 2020 18:51
[2020-07-15 18:56] VITALS: BP 133/66
== END 2020-07-15 19:35 | disposition home or self-care (01) ==
LOC: EDUNIT# 13:37 → ER 13:40
DX: N17.9 Acute kidney failure, unspecified (principal); E83.42 Hypomagnesemia; I10 Essential (primary) hypertension; I25.10 Atherosclerotic heart disease of native coronary artery without angina pectoris; E11.9 Type 2 diabetes mellitus without complications; E03.9 Hypothyroidism, unspecified; F41.9 Anxiety disorder, unspecified; F32.9 Major depressive disorder, single episode, unspecified; F03.90 Unspecified dementia, unspecified severity, without behavioral disturbance, psychotic disturbance, mood disturbance, and anxiety; G40.909 Epilepsy, unspecified, not intractable, without status epilepticus; K21.9 Gastro-esophageal reflux disease without esophagitis; J44.9 Chronic obstructive pulmonary disease, unspecified; Z86.73 Personal history of transient ischemic attack (TIA), and cerebral infarction without residual deficits; Z79.4 Long term (current) use of insulin; Z95.5 Presence of coronary angioplasty implant and graft; Z79.02 Long term (current) use of antithrombotics/antiplatelets; Z79.890 Hormone replacement therapy; Z88.5 Allergy status to narcotic agent; Z99.2 Dependence on renal dialysis
CPT/HCPCS: 36415; 51702; 80053; 80164; 81000; 82962; 83735; 84439; 84443; 85025; 86141

== ENCOUNTER 2020-08-30 05:53 | Outpatient (CLI) | payer MEDICARE, MEDICAID ==
[~2020-08-30] VITALS: Ht 172.7 cm; Wt 81.1 kg
[2020-08-31] MEDS ORDERED: NICO-685 TD (09:07)
[2020-08-31] MEDS ORDERED: TRAM50TA3 PO (09:07)
[2020-08-31] MEDS ORDERED: ESCI5TAB PO (09:07)
[2020-08-31] MEDS ORDERED: MAGN400C PO (09:07)
== END 2020-08-31 10:05 | disposition home or self-care (01) ==
LOC: PREOP 05:53
PROVIDERS: ATTEND Specialist
DX: Z01.818 Encounter for other preprocedural examination (principal)

== ENCOUNTER 2020-09-01 09:26 | Day surgery (SDC) | payer MEDICARE, MEDICAID ==
[~2020-09-01] VITALS: Ht 172 cm; Wt 81.1 kg
[~2020-09-01 09:26] MED LIST changes: +ESCI5TAB PO; +MAGN400C PO; +NICO-685 TD; +TRAM50TA3 PO
[2020-09-01] MEDS ORDERED: acetaZOLAMIDE ER 500 MG CAP (DIAMOX SEQUELS) PO ONE (09:30)
[2020-09-01] MEDS ORDERED: MOXIFLOXACIN OPHTH SOLN 5 MG/ML 0.3 ML SYRINGE OP ONE (09:30)
[2020-09-01] MEDS ORDERED: POVIDONE (BETADINE) OPHTH SOLN 5% 30 ML OP ONE (09:30)
[2020-09-01] MEDS ORDERED: TIMOLOL MALEATE 0.5% 5 ML (TIMOPTIC) BTL OU PRN (09:30)
[2020-09-01] MEDS ORDERED: LIDOCAINE PF 1% 2 ML VIAL IR PRN (09:30)
[2020-09-01] MEDS ORDERED: MANNITOL 25% 12.5 GM/50 ML VIAL IV ONE (09:30)
[2020-09-01] MEDS: TETRACAINE 0.5% OPHTH SOLN 4 ML BTL (SINGLE DOSE ONLY) OU PRN ×4 (10:02→10:23)
[2020-09-01] MEDS: TROPICAMIDE 1% OPH SOLN (MYDRIACYL) 15 ML BTL OP SCH ×3 (10:12→10:23)
[2020-09-01] MEDS: PHENYLEPHRINE 10% OPHTH (NEO-SYN) 5 ML BTL OU SCH ×3 (10:12→10:23)
[2020-09-01] MEDS ORDERED: MANNITOL 20% IV PREMIX 500 ML IV SCH (11:00)
--- NOTE | 2020-09-01 11:06 | Ophthalmologist Pre-Op Note ---
Pre-Operative Progress Note H&P Reviewed The H&P was reviewed, patient examined and no changes noted. Date H&P Reviewed: September 01, 2020 Time H&P Reviewed: 11:06 Pre-Op Dx Cataract, Right Eye BOBBY REEDER MD September 01, 2020 11:06
[2020-09-01 11:19] VITALS: BP 148/90
--- NOTE | 2020-09-01 12:42 | Ophthalmology Operative Report ---
Cataract, Miotic Pupil PREOPERATIVE DIAGNOSIS: 1. Cataract Right Eye 2. Miotic Pupil POSTOPERATIVE DIAGNOSIS: 1. Cataract Right Eye 2. Miotic Pupil PROCEDURE: 1. Cataract removal and placement of posterior chamber implant, right eye 2. Pupillary expansion with malyugin ring SURGEON: Fabian Reeder ANESTHESIA: Topical with sedation COMPLICATIONS: None ESTIMATED BLOOD LOSS: Minimal DESCRIPTION OF PROCEDURE: After proper informed consent was obtained, the patient, a 70 male, was taken to the Operating Room and the right eye was anesthetized with Tetracaine. The eye was then prepped and draped in the usual manner. A wire lid speculum was placed. A paracentesis was made at the left hand position. Preservative free lidocaine was injected into anterior chamber followed by viscoelastic. A clear corneal incision was made in the temporal position. The malyugin ring was injected into the anterior chamber and the pupil was dilated. A capsulorrhexis was preformed and the central nuclear and cortical material were removed. The posterior capsule was polished and Tyrel 21.5 [id number] IOL was placed into the capsular bag. The malyugin ring was removed. The residual viscoelastic was aspirated and the balanced saline solution was injected into the anterior chamber. Moxifloxacin was injected into the anterior chamber. The wound was checked and found to be water tight. The patient tolerated the procedure well without complications. FABIAN REEDER MD September 01, 2020 12:42
[2020-09-01 12:47] VITALS: BP 161/95
--- NOTE | 2020-09-03 12:46 | Anesthesia-General Post-Op ---
MAC Significant Intra-Op Events Notes post date entry from 09/01/20 at 1315 Patient Condition Mental Status/LOC: Same as Preop Cardiovascular: Satisfactory Nausea/Vomiting: Absent Respiratory: Satisfactory Pain: Controlled Complications: Absent Post Op Complications Complications None Follow Up Care/Instructions Patient Instructions None needed. Anesthesiology Discharge Order Discharge Order Patient is doing well, no complaints, stable vital signs, no apparent adverse anesthesia problems. No complications reported per nursing. CARLOS WREN CRNA September 03, 2020 12:46
== END 2020-09-01 12:53 ==
LOC: SDC 09:26
PROVIDERS: ATTEND Specialist
DX: H25.11 Age-related nuclear cataract, right eye (principal); H57.03 Miosis; E11.9 Type 2 diabetes mellitus without complications; I10 Essential (primary) hypertension; F32.9 Major depressive disorder, single episode, unspecified; F41.9 Anxiety disorder, unspecified; D64.9 Anemia, unspecified; Z79.4 Long term (current) use of insulin; Z79.899 Other long term (current) drug therapy; Z89.9 Acquired absence of limb, unspecified; Z79.02 Long term (current) use of antithrombotics/antiplatelets
CPT/HCPCS: 66982; 82947; V2632

== ENCOUNTER → 2020-09-03 | Emergency (ER) | payer MEDICARE, MEDICAID ==
[~2020-09-03] VITALS: Ht 177 cm; Wt 72.5 kg
[~2020-09-03] MED LIST changes: +TETANUS,DIPTH,PERTUSS P/F (BOOSTRIX) 0.5 ML VIAL IM ONE
[2020-09-03 18:05] VITALS: BP 124/77
--- NOTE | 2020-09-03 18:40 | Diagnostic Imaging Report ---
PROCEDURE: CT head and CT cervical spine without contrast. TECHNIQUE: Multiple contiguous axial images were obtained through the brain and cervical spine without the use of intravenous contrast. Sagittal and coronal reformations through the cervical spine were then performed. Auto Exposure Controls were utilized during the CT exam to meet ALARA standards for radiation dose reduction. INDICATION: Trauma. COMPARISON: 03/31/2020. FINDINGS: Mild atrophy. Encephalomalacia within the right frontal lobe is again identified. No intracranial hemorrhage. No intracranial mass, mass effect, midline shift, herniation, hydrocephalus or extra-axial fluid collection. Periventricular and subcortical white matter hypodensities are again identified, appearing similar to the prior examination most likely related to mild background chronic small vessel white matter ischemic disease. No definite CT evidence of an acute ischemic infarction. The bilateral ocular lenses are absent. Minimal mucosal thickening within the left maxillary sinus. Mild mucosal thickening and fluid within scattered left ethmoidal air cells. Chronic medial deviation of the right lamina papyracea. The calvarium and extracalvarial soft tissues are unremarkable. Vascular calcifications are identified. Reversal of normal cervical lordosis is again identified. Anterolisthesis of C3 on C4 and C4 on C5 is again identified, stable from the prior examination. Osseous bridging of C3-C5 is again identified. Alignment of the atlantooccipital joint is well maintained. No new anterolisthesis or retrolisthesis. Scattered endplate degenerative changes are present. No new vertebral body height loss. 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 No acute fracture or dislocation. No destructive osseous process. Advanced multilevel disc space height loss, particularly at C3/C4, C4/C5, C5/C6 and C6/C7. Multilevel central canal stenosis, greatest at C4/C5 where it is at least moderate in severity. Background vascular calcifications. No apical pneumothorax. IMPRESSION: 1. No acute intracranial abnormality with background atrophy and chronic ischemic changes, as above. 2. No acute osseous abnormality within the cervical spine with stable degenerative changes and reversal of the normal cervical lordosis. Dictated by: Dictated on workstation # [id number]
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
== END ==
LOC: EDUNIT# 17:25 → ER 17:28
DX: S09.90XA Unspecified injury of head, initial encounter (principal); S00.01XA Abrasion of scalp, initial encounter; M47.812 Spondylosis without myelopathy or radiculopathy, cervical region; F03.90 Unspecified dementia, unspecified severity, without behavioral disturbance, psychotic disturbance, mood disturbance, and anxiety; I10 Essential (primary) hypertension; J44.9 Chronic obstructive pulmonary disease, unspecified; I25.10 Atherosclerotic heart disease of native coronary artery without angina pectoris; G40.909 Epilepsy, unspecified, not intractable, without status epilepticus; G89.29 Other chronic pain; E11.9 Type 2 diabetes mellitus without complications; E03.9 Hypothyroidism, unspecified; F41.9 Anxiety disorder, unspecified; F32.9 Major depressive disorder, single episode, unspecified; F17.210 Nicotine dependence, cigarettes, uncomplicated; Z95.5 Presence of coronary angioplasty implant and graft; Z98.1 Arthrodesis status; Z79.02 Long term (current) use of antithrombotics/antiplatelets; Z23 Encounter for immunization; Z79.891 Long term (current) use of opiate analgesic; Z79.4 Long term (current) use of insulin; Z79.890 Hormone replacement therapy; Z79.899 Other long term (current) drug therapy; W22.8XXA Striking against or struck by other objects, initial encounter
CPT/HCPCS: 70450; 72125; 90715; 99282

== ENCOUNTER 2021-02-05 04:33 | Emergency (ER) | payer MEDICARE, MEDICAID ==
[~2021-02-05] VITALS: Ht 177 cm; Wt 72.5 kg
[~2021-02-05 04:33] MED LIST changes: +MIRT-68 PO; -MIRT15TA6 PO; -TETANUS,DIPTH,PERTUSS P/F (BOOSTRIX) 0.5 ML VIAL IM ONE
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
[2021-02-05 05:39] LABS: HEMATOCRIT 41 % (40-54); MEAN CORPUSCULAR VOLUME 94 fL (80-99); NEUTROPHILS # (AUTO) 3.6 10^3/uL (1.8-7.8)
[2021-02-05 05:41] LABS: BASOPHILS # (AUTO) 0.1 10^3/uL (0.0-0.1); BASOPHILS % (AUTO) 1 % (0-10); EOSINOPHILS # (AUTO) 0.2 10^3/uL (0.0-0.3); EOSINOPHILS % (AUTO) 2 % (0-10); HEMOGLOBIN 13.6 g/dL (13.3-17.7); LYMPHOCYTES # (AUTO) 2.9 10^3/uL (1.0-4.0); LYMPHOCYTES % (AUTO) 39 % (12-44); MEAN CORPUSCULAR HEMOGLOBIN 31 pg (25-34); MEAN CORPUSCULAR HGB CONC 33 g/dL (32-36); MEAN PLATELET VOLUME 12.1 fL (9.0-12.2); MONOCYTES # (AUTO) 0.7 10^3/uL (0.0-1.0); MONOCYTES % (AUTO) 9 % (0-12); NEUTROPHILS % (AUTO) 48 % (42-75); PLATELET COUNT 157 10^3/uL (130-400); WHITE BLOOD COUNT 7.5 10^3/uL (4.3-11.0)
[2021-02-05 05:42] LABS: ALBUMIN 3.9 GM/DL (3.2-4.5); POTASSIUM 5.1 MMOL/L (3.6-5.0)
[2021-02-05 05:44] LABS: CALCIUM 9.3 MG/DL (8.5-10.1)
[2021-02-05 05:45] LABS: TOTAL PROTEIN 7.1 GM/DL (6.4-8.2)
[2021-02-05 05:46] LABS: SMEAR SCAN COMMENT YES
[2021-02-05 05:47] LABS: BILIRUBIN,TOTAL 0.4 MG/DL (0.1-1.0)
[2021-02-05 05:48] LABS: CREATININE SERUM 0.94 MG/DL (0.60-1.30)
[2021-02-05 05:57] LABS: VALPROIC ACID 14.7 UG/ML (50.0-100.0)
[2021-02-05] MEDS ORDERED: LORA-405 PO (06:14)
[2021-02-05 08:20] VITALS: BP 183/94
== END 2021-02-05 08:22 ==
LOC: EDUNIT# 04:34 → ER 04:37
DX: R45.1 Restlessness and agitation (principal); F03.91 Unspecified dementia, unspecified severity, with behavioral disturbance; J44.9 Chronic obstructive pulmonary disease, unspecified; I10 Essential (primary) hypertension; F32.9 Major depressive disorder, single episode, unspecified; F41.9 Anxiety disorder, unspecified; E03.9 Hypothyroidism, unspecified; E11.9 Type 2 diabetes mellitus without complications; G40.909 Epilepsy, unspecified, not intractable, without status epilepticus; F17.210 Nicotine dependence, cigarettes, uncomplicated; Z86.73 Personal history of transient ischemic attack (TIA), and cerebral infarction without residual deficits; Z79.899 Other long term (current) drug therapy; Z79.890 Hormone replacement therapy; Z79.4 Long term (current) use of insulin; Z79.01 Long term (current) use of anticoagulants
CPT/HCPCS: 36415; 80053; 80164; 85025; 99283

== ENCOUNTER → 2021-02-12 | Outpatient (CLI) | payer MEDICARE, MEDICAID ==
[~2021-02-12] MED LIST changes: +LORA-405 PO
== END ==
LOC: CARD 13:38
PROVIDERS: ATTEND Internal Medicine Cardiovascular Disease
DX: I05.9 Rheumatic mitral valve disease, unspecified (principal); I11.9 Hypertensive heart disease without heart failure
CPT/HCPCS: 93306

== ENCOUNTER → 2021-05-23 | Outpatient (CLI) | payer MEDICARE, MEDICAID ==
[~2021-05-23] MED LIST changes: +CATHETER FLUSH 10 ML SYR IV PRN; -CITA40TA11 PO; +CITA40TA13 PO; +REGADENOSON 0.4 MG/5 ML SYR (LEXISCAN) IV ONE
[2021-05-23 09:50] VITALS: BP 164/97
--- NOTE | 2021-05-23 12:33 | Cardiology Stress Test Report ---
Stress Test Report Date of Procedure/Referring: Date of Procedure: May 23, 2021 PCP Bridger Ramirez MD Admitting Physician Jarod Ahumada MD Indications: HTN Baseline Heart Rate: 72 Baseline Blood Pressure: Blood Pressure Systolic: 164 Blood Pressure Diastolic: 97 Baseline Vitals Vital Signs Date Time Temp Pulse Resp B/P (MAP) Pulse Ox O2 Delivery O2 Flow Rate FiO2 05/23/21 09:50 72 164/97 (119) 99 Summary After explaining the procedure to the patient, he signed a consent and then brought to the stress nuclear laboratory. Patient received 0.4 mg Lexiscan for stress test, ECG, heart rate and blood pressure were monitored continuously. Resting and stress dose of radio tracer were injected, imaging was acquired and reviewed in short axis, horizontal long axis and vertical long axis views. TID: 1.03 SSS: 12 SDS: 2 EF: 40 1. Patient tolerated Lexiscan well 2. Fixed defect involving the whole inferior wall inferolateral wall with small area of celeste-infarct ischemia 3. Prominent left ventricle with diffuse left ventricular hypokinesia more pro nounced at the inferior wall, ejection fraction 40% BRIDGER RAMIREZ MD May 23, 2021 12:33
== END ==
LOC: CARD 08:01
PROVIDERS: ATTEND Internal Medicine Cardiovascular Disease
DX: I10 Essential (primary) hypertension (principal); I25.10 Atherosclerotic heart disease of native coronary artery without angina pectoris
CPT/HCPCS: 78452; 93017; A9502

== ENCOUNTER 2021-09-17 12:41 | Emergency (ER) | payer MEDICARE, MEDICAID ==
[~2021-09-17] VITALS: Ht 177 cm; Wt 84.0 kg
[~2021-09-17 12:41] MED LIST changes: -CATHETER FLUSH 10 ML SYR IV PRN; -REGADENOSON 0.4 MG/5 ML SYR (LEXISCAN) IV ONE
--- NOTE | 2021-09-17 13:39 | ED General ---
General Chief Complaint: Chest Wall Stated Complaint: RIB PAIN Source of Information: Patient Exam Limitations: No Limitations History of Present Illness Date Seen by Provider: Sep 17, 2021 Time Seen by Provider: 13:36 Initial Comments Patient is a 71-year-old male with a history of hypertension, coronary artery disease, stroke who presents ED with rib pain. Rib pain over the past 2 to 3 days.. He states he woke up with the pain. Described as sharp only hurts on palpation or with movement. Denies of any falls. Denies taking anything for pain. Patient is currently at [facility]. Denies of any shortness of breath substernal chest pain, nausea, vomiting, headache, dizziness. Patient denies taking thing for his pain. Allergies and Home Medications Allergies Coded Allergies: acetaminophen (Verified Allergy, Intermediate, 10/26/17) Patient Home Medication List Home Medication List Reviewed: Yes Albuterol Sulfate (Albuterol Sulfate) 2.5 Mg/3 Ml Vial.neb, 2.5 MG NEB UD PRN for SHORTNESS OF BREATH, (Reported) Entered as Reported by: AMMY PALAFOX on 12/08/18 1448 Cholecalciferol (Vitamin D3) (Vitamin D3) 125 Mcg Capsule, 100 MCG PO DAILY, (Reported) Entered as Reported by: MURTAZA CRUM on 12/21/19 1616 Clonazepam (Klonopin) 1 Mg Tablet, 0.5 MG PO BID, (Reported) Entered as Reported by: SAIMA HAMPTON on 07/04/20 1115 Clonidine HCl (Clonidine HCl) 0.2 Mg Tablet, 0.2 MG PO BID, (Reported) Entered as Reported by: SAIMA HAMPTON on 07/04/20 1115 Clopidogrel Bisulfate (Plavix) 75 Mg Tablet, 75 MG PO DAILY, (Reported) Entered as Reported by: AMMY PALAFOX on 03/05/17 0918 Divalproex Sodium (Divalproex Sodium) 125 Mg Cap.sprink, 125 MG PO TID, (Reported) Entered as Reported by: AMMY PALAFOX on 03/05/17 0918 Docusate Sodium (Colace) 100 Mg Capsule, 100 MG PO BID, (Reported) Entered as Reported by: MURTAZA CRUM on 12/21/19 1616 Donepezil HCl (Aricept) 10 Mg Tablet, 10 MG PO HS, (Reported) Entered as Reported by: AMMY PALAFOX on 03/05/17 09 Dulaglutide (Trulicity) 0.75 Mg/0.5 Ml Pen.injctr, 0.75 MG SC Quintero, (Reported) Entered as Reported by: AMMY PALAFOX on 12/08/18 1448 Enalapril Maleate (Enalapril Maleate) 2.5 Mg Tablet, 2.5 MG PO DAILY, (Reported) Entered as Reported by: AMMY PALAFOX on 03/05/17 09 Escitalopram Oxalate (Lexapro) 5 Mg Tablet, 5 MG PO DAILY, (Reported) Entered as Reported by: PHILLY HENRY on 08/31/20 0907 Ferrous Sulfate (Ferrous Sulfate) 325 Mg Tablet, 325 MG PO Q48H, (Reported) Entered as Reported by: MURTAZA CRUM on 12/21/19 1616 Gabapentin (Neurontin) 300 Mg Capsule, 300 MG PO HS, (Reported) Entered as Reported by: MURTAZA CRUM on 12/21/19 1616 Icosapent Ethyl (Vascepa) 1 Gm Capsule, 1 GM PO BID, (Reported) Entered as Reported by: AMMY PALAFOX on 12/08/18 1448 Insulin Aspart (Novolog) 100 Unit/1 Ml Susp, 5-8 UNIT SQ TIDAC, (Reported) Entered as Reported by: SAIMA HAMPTON on 04/29/19 0816 Insulin Detemir (Levemir Flextouch) 100 Unit/1 Ml Insuln.pen, 30 UNITS SC DAILY, (Reported) Entered as Reported by: MURTAZA CRUM on 12/21/19 1616 Lactobacillus Acidophilus/Pect (Acidophilus-Pectin Capsule) 1 Each Capsule, 1 CAP PO QID, (Reported) Entered as Reported by: AMMY PALAFOX on 12/08/18 1448 Levetiracetam (Levetiracetam) 500 Mg Tablet, 500 MG PO BID, (Reported) Entered as Reported by: AMMY PALAFOX on 03/05/17 09 Levothyroxine Sodium (Levothyroxine Sodium) 175 Mcg Tablet, 175 MCG PO DAILY, (Reported) Entered as Reported by: YUSEF CHRISTIAN on 10/26/17 1356 Lorazepam (Ativan) 1 Mg Tablet, 1 MG PO TID PRN for AGITATION Prescribed by: CUCO UMANA on 02/05/21 0614 Mag Hydrox/Al Hydrox/Simeth (Mylanta Suspension) 30 Ml Oral.susp, 30 ML PO Q4H PRN for INDIGESTION, (Reported) Entered as Reported by: AMMY PALAFOX on 03/05/17 0918 Magnesium Hydroxide (Milk of Magnesia) 400 Mg/5 Ml Oral.susp, 30 ML PO DAILY PRN for CONSTIPATION-1ST LINE, (Reported) Entered as Reported by: AMMY PALAOFX on 02/25/18 0933 Magnesium Oxide (Magnesium) 400 Mg Capsule, 400 MG PO DAILY, (Reported) Entered as Reported by: PHILLY HENRY on 08/31/20 09 Melatonin (Melatonin) 3 Mg Tablet, 3 MG PO HS, (Reported) Entered as Reported by: AMMY PALAFOX on 03/05/17 0918 Metformin HCl (Metformin HCl) 1,000 Mg Tablet, 1,000 MG PO BID, (Reported) Entered as Reported by: MURTAZA CRUM on 12/21/19 1616 Metoprolol Tartrate (Metoprolol Tartrate) 50 Mg Tablet, 50 MG PO BID, (Reported) Entered as Reported by: SAIMA HAMPTON on 07/04/20 111 Mirtazapine (Mirtazapine) 15 Mg Tablet, 15 MG PO HS, (Reported) Entered as Reported by: SAIMA HAMPTON on 07/04/20 111 Nicotine (Nicotine Patch) 1 Each Patch.td24, 21 MG TD DAILY, (Reported) Entered as Reported by: PHILLY HENRY on 08/31/20 09 Tamsulosin HCl (Flomax) 0.4 Mg Cap, 0.4 MG PO DAILY, (Reported) Entered as Reported by: AMMY PALAFOX on 12/08/18 1448 Tramadol HCl (Tramadol HCl) 50 Mg Tablet, 50 MG PO DAILY, (Reported) Entered as Reported by: PHILLY HENRY on 08/31/20 09 Venlafaxine HCl (Venlafaxine HCl ER) 75 Mg Cap.er.24h, 75 MG PO DAILY, (Reported) Entered as Reported by: SAIMA HAMPTON on 07/04/20 1115 Review of Systems Review of Systems Constitutional: No chills, No diaphoresis, No malaise, No weakness EENTM: No ear pain, No blurred vision, No double vision Respiratory: No cough Cardiovascular: No chest pain, No edema Gastrointestinal: No abdominal pain, No diarrhea, No nausea, No vomiting Genitourinary: No decreased output Musculoskeletal: No back pain, No joint pain; muscle pain Skin: No change in color, No change in hair/nails All Other Systems Reviewed Negative Unless Noted: Yes Past Jbuvfzw-Ipbybj-Reiyhh Hx Patient Social History Tobacco Use?: Yes Tobacco type used: Cigarettes Smoking Status: Current Everyday Smoker Use of E-Cig and/or Vaping dev: No Substance use?: No Alcohol Use?: No Pt feels they are or have been: No Immunizations Up To Date Tetanus Booster (TDap): Unknown PED Vaccines UTD: Yes Influenza Vaccine Up-to-Date: No; Not Current Seasonal Allergies Seasonal Allergies: No Past Medical History Surgery/Hospitalization HX: HTN,ALZH,DEPRESSION, ANXIETY, DM 2, SEIZURES, BPH Surgeries: Yes (KNEE SX; BACK-DISCECTOMY/FUSIONS;TOE AMPUTATION;L EYE CATARACT 09/01/20) Amputation, Cardiac, Coronary Stent, Eye Surgery, Orthopedic, Tracheostomy Respiratory: Yes (HX OF RESP. FAILURE WITH TRACH/LATER REMOVED) COPD Cardiac: Yes (STENT IN ; SEVERE MULTIVESSEL CAD--INOPERABLE) Angina, Coronary Artery Disease, High Cholesterol, Hypertension, Peripheral Vascular Neurological: Yes (VASCULAR DEMENTIA W/BEHAVIOR DISTURBANCE; PSEUDOBULBAR AFFECT;) Dementia, Neuropathy, Seizure Disorder, Stroke Reproductive Disorders: No Genitourinary: No Gastrointestinal: Yes (CHRONIC PANCREATITIS/HX OF HEMORRHAGIC PANCREATITIS;SPLENOMEGALY) Gastroesophageal Reflux, Pancreatitis, Esophageal Varices Musculoskeletal: Yes ( CHRONIC PAIN;MULTIPLE TOE AMPUTATIONS;OSTEOMYELITIS;R HIP FX;L FEMUR FX) Amputee, Degenerate Disk Disease, Arthritis, Chronic Back Pain, Fractures Endocrine: Yes Diabetes, Insulin dep, Hypothyroidsim HEENT: Yes Cataract Cancer: No Psychosocial: Yes (DEMENTIA WITH BEHAVIOR DISTURBANCE;HX OF POLYSUBSTANCE ABUSE) Anxiety, Depression Integumentary: Yes (OSTEOMYELITIS/CELLULITIS OF TOES/FEET;CHRONIC FOOT ULCERS) Blood Disorders: No Family Medical History Cardiovascular disease 19 FATHER 19 MOTHER Diabetes mellitus G8 BROTHER FH: cancer Thyroid disease 19 MOTHER (HYPOTHYROIDISM) No Pertinent Family Hx SOCIAL HISTORY: -ETOH--HX OF ABUSE -DRUGS-HX OF METHADONE USE/ABUSE -SMOKES 2 PPD PAST SURGICAL HISTORY: -RIGHT CATARACT SURGERY 08/2020 -LEFT CATARACT SURGERY 06/2020 -RIGHT HIP FRACTURE 08/09/19--TRANSFERRED TO [place] -RIGHT GREAT TOE AND 3RD TOE AMPUTATION DUE TO OPEN FRACTURE OF 3RD TOE AND OSTEOMYELITIS 12/[address] ALICEA -AMPUTATIONS OF RIGHT 2ND AND 4TH TOES -AMPUTATIONS OF LEFT GREAT AND SECOND TOES -RIGHT KNEE SURGERY X 4 -BACK SURGERIES--DISCECTOMY/FUSIONS -CARDIAC CATH WITH STENT -CHOLECYSTECTOMY -STENT PLACEMENT IN PANCREAS WITH REMOVAL OF PSEUDOCYST -TRACHEOSTOMY WITH LATER REMOVAL -RIGHT 4TH TOE RAY AMPUTATION 09/11/13 DR. ABDULLAHI BUCKLEY -CARDIAC CATH 12/[address] BEARDEN--MULTI-VESSEL DISEASE/INOPERABLE LONG HISTORY OF EXTREME NON-COMPLIANCE IN ALL ASPECTS OF CARE Physical Exam Vital Signs Vital Signs - First Documented 09/17/21 13:12 Temp 36.8 Pulse 82 Resp 18 B/P (MAP) 207/98 (134) Pulse Ox 96 O2 Delivery Room Air Capillary Refill : Height, Weight, BMI Height: 5'10.00" Weight: 180lbs. 0.0oz. 81.100387ke; 23.00 BMI Method:Stated General Appearance: No Apparent Distress, WD/WN Eyes: Bilateral Eye Normal Inspection, Bilateral Eye PERRL, Bilateral Eye EOMI HEENT: PERRL/EOMI, TMs Normal, Normal ENT Inspection, Pharynx Normal Neck: Full Range of Motion, Normal Inspection, Non Tender, Supple Respiratory: Chest Non Tender, Lungs Clear, Normal Breath Sounds, No Accessory Muscle Use, No Respiratory Distress, Other (Right-sided rib tenderness. No swelling, erythema or ecchymosis. No crepitus) Cardiovascular: Regular Rate, Rhythm, No Edema, No Gallop, No JVD Gastrointestinal: Normal Bowel Sounds, No Organomegaly, No Pulsatile Mass, Non Tender, Soft Back: Normal Inspection, No CVA Tenderness, No Vertebral Tenderness Extremity: Normal Capillary Refill, Normal Inspection, Normal Range of Motion, Non Tender Neurologic/Psychiatric: Alert, Oriented x3, No Motor/Sensory Deficits, Normal Mood/Affect, scale manager II-XII Norm as Tested Skin: Normal Color, Warm/Dry Progress/Results/Core Measures Suspected Sepsis SIRS Temperature: Pulse: Respiratory Rate: Blood Pressure / Mean: Results/Orders My Orders Orders - DEANA MOYA Ribs, Right 2-3 Views (09/17/21 13:32) Ekg Tracing (09/17/21 13:33) Vital Signs/I&O 09/17/21 09/17/21 13:12 15:27 Temp 36.8 Pulse 82 83 Resp 18 16 B/P (MAP) 207/98 (134) 171/90 Pulse Ox 96 97 O2 Delivery Room Air Room Air Capillary Refill : ECG Comment Sinus rhythm, old inferior infarct, 75 bpm, QRS duration 102 MS, QTc 390ms Departure Communication (PCP) Patient on arrival is confused why he is here. Patient appears to have a history of dementia, coronary artery disease, CHF, stroke. He was brought to the ED for right-sided rib pain. He does have some tenderness to the right later ribs on arrival. Patient gets relief when no pressure is applied. Only occurs with movement. He gets pain when he wheels with his right arm in the wheelchair. Appears to be more chest wall muscular. Due to the location of the pain EKG was ordered which showed sinus rhythm old inferior infarct. No elevation, depression, or acute abnormality. X-rays was negative for pneumonia, pneumothorax or obvious rib fracture. Old healing fracture noted. Pain appears to be more musculoskeletal . reevaluation patient states he feels much better. He was hypertensive with 207/98 with improvement of 171/90. History of hypertension. Concerning for this elevated blood pressure. Attempted to check lab work patient became irritated. Concerning for the blood pressure and this needs to be evaluated. This was discussed in his discharge instructions and with staff. Impression Primary Impression: Rib pain Disposition: HOME, SELF-CARE Condition: Stable Departure-Patient Inst. Decision time for Depature: 15:06 Referrals: JOLLY DELANEY MD (PCP/Family) Primary Care Physician Patient Instructions: Pleuritic Chest Pain ED Add. Discharge Instructions: Continue monitoring blood pressure. Initial reading was high. Recheck of 171/90. Patient had chest wall tenderness. X-ray was negative for fracture. EKG without evidence of WA or arrhythmia. Continue monitoring symptoms. If any worsening symptoms return back to ED All discharge instructions reviewed with patient and/or family. Voiced understanding. DEANA MOYA 6, 2022 13:39
--- NOTE | 2021-09-17 14:16 | Diagnostic Imaging Report ---
INDICATION: Rib pain. FINDINGS: There are some old healed rib deformities laterally about the right ribs but no lucent or acute-appearing fracture identified. The right lung is clear. There is no pleural fluid, pneumothorax, or free air beneath the diaphragm. IMPRESSION: Old healed deformities but no acute rib pathology identified. Dictated by: Dictated on workstation # [id number]
[2021-09-17 15:27] VITALS: BP 171/90
== END 2021-09-17 15:27 | disposition home or self-care (01) ==
LOC: EDUNIT# 12:41 → ER 12:42
DX: R07.81 Pleurodynia (principal); E11.40 Type 2 diabetes mellitus with diabetic neuropathy, unspecified; F17.210 Nicotine dependence, cigarettes, uncomplicated; Z79.4 Long term (current) use of insulin
CPT/HCPCS: 71100; 93005

== ENCOUNTER 2021-11-16 10:32 | Emergency (ER) | payer MEDICARE, MEDICAID ==
[~2021-11-16] VITALS: Ht 177.8 cm; Wt 84.0 kg
--- NOTE | 2021-11-16 10:54 | ED Lower Extremity ---
General Chief Complaint: Trauma-Non Activation Stated Complaint: FALL Nursing Triage Note: arrives via ems from [facility] with a complaint of an unwitnessed fall. no report from alf. ems states they were unable to obtain paperwork because il does not have access to a printer. they were able to confirm patient hx of dementia, htn and diabetes. Source: patient, EMS Exam Limitations: physical impairment (dementia) History of Present Illness Date Seen by Provider: Nov 16, 2021 Time Seen by Provider: 10:43 Initial Comments Patient is a 71-year-old male who presents to the emergency department by ambulance today chief complaint of right hip pain/right lower extremity pain. Patient was reportedly found in the bathroom at his alf. This was an unwitnessed fall. He has a history per EMS of dementia, seizures and insulin- dependent diabetes. Patient grimaces and yells out with any manipulation of the right hip. In asking HPI, review of systems, past medical family and social history the patient gives a resounding "no" to all questions. I doubt the authenticity of his answers. [facility] reported that the patient is mostly wheelchair-bound but does do standing transfers. Vital signs are stable, he is not tachycardic his blood pressure is good. He is not hypoxic. He is alert and follows commands. Very tender to palpation of the right lateral hip in the area of scar from prior hip surgery. Onset: this morning Severity: moderate Pain/Injury Location: right hip, right leg Method of Injury: fell Modifying Factors: Worse With Movement Allergies and Home Medications Allergies Coded Allergies: acetaminophen (Verified Allergy, Intermediate, 10/26/17) Patient Home Medication List Home Medication List Reviewed: Yes Albuterol Sulfate (Albuterol Sulfate) 2.5 Mg/3 Ml Vial.neb, 2.5 MG NEB UD PRN for SHORTNESS OF BREATH, (Reported) Entered as Reported by: AMMY PALAFOX on 12/08/18 1448 Cholecalciferol (Vitamin D3) (Vitamin D3) 125 Mcg Capsule, 100 MCG PO DAILY, (Reported) Entered as Reported by: MURTAZA CRUM on 12/21/19 1616 Clonazepam (Klonopin) 1 Mg Tablet, 0.5 MG PO BID, (Reported) Entered as Reported by: SAIMA HAMPTON on 07/04/20 1115 Clonidine HCl (Clonidine HCl) 0.2 Mg Tablet, 0.2 MG PO BID, (Reported) Entered as Reported by: SAIMA HAMPTON on 07/04/20 1115 Clopidogrel Bisulfate (Plavix) 75 Mg Tablet, 75 MG PO DAILY, (Reported) Entered as Reported by: AMMY PALAFOX on 03/05/17 09 Divalproex Sodium (Divalproex Sodium) 125 Mg Cap.sprink, 125 MG PO TID, (Reported) Entered as Reported by: AMMY PALAFOX on 03/05/17 09 Docusate Sodium (Colace) 100 Mg Capsule, 100 MG PO BID, (Reported) Entered as Reported by: MURTAZA CRUM on 12/21/19 161 Donepezil HCl (Aricept) 10 Mg Tablet, 10 MG PO HS, (Reported) Entered as Reported by: AMMY PALAFOX on 03/05/17 09 Dulaglutide (Trulicity) 0.75 Mg/0.5 Ml Pen.injctr, 0.75 MG SC Quintero, (Reported) Entered as Reported by: AMMY PALAFOX on 12/08/18 1448 Enalapril Maleate (Enalapril Maleate) 2.5 Mg Tablet, 2.5 MG PO DAILY, (Reported) Entered as Reported by: AMMY PALAFOX on 03/05/17 09 Escitalopram Oxalate (Lexapro) 5 Mg Tablet, 5 MG PO DAILY, (Reported) Entered as Reported by: PHILLY HENRY on 08/31/20 0907 Ferrous Sulfate (Ferrous Sulfate) 325 Mg Tablet, 325 MG PO Q48H, (Reported) Entered as Reported by: MURTAZA CRUM on 12/21/19 161 Gabapentin (Neurontin) 300 Mg Capsule, 300 MG PO HS, (Reported) Entered as Reported by: MURTAZA CRUM on 12/21/19 161 Icosapent Ethyl (Vascepa) 1 Gm Capsule, 1 GM PO BID, (Reported) Entered as Reported by: AMMY PALAFOX on 12/08/18 1448 Insulin Aspart (Novolog) 100 Unit/1 Ml Susp, 5-8 UNIT SQ TIDAC, (Reported) Entered as Reported by: SAIMA HAMPTON on 04/29/19 0816 Insulin Detemir (Levemir Flextouch) 100 Unit/1 Ml Insuln.pen, 30 UNITS SC DAILY, (Reported) Entered as Reported by: MURTAZA CRUM on 12/21/19 1616 Lactobacillus Acidophilus/Pect (Acidophilus-Pectin Capsule) 1 Each Capsule, 1 CAP PO QID, (Reported) Entered as Reported by: AMMY PALAFOX on 12/08/18 1448 Levetiracetam (Levetiracetam) 500 Mg Tablet, 500 MG PO BID, (Reported) Entered as Reported by: AMMY PALAFOX on 03/05/17 0918 Levothyroxine Sodium (Levothyroxine Sodium) 175 Mcg Tablet, 175 MCG PO DAILY, (Reported) Entered as Reported by: YUSEF CHRISTIAN on 10/26/17 1356 Lorazepam (Ativan) 1 Mg Tablet, 1 MG PO TID PRN for AGITATION Prescribed by: CUCO UMANA on 02/05/21 0614 Mag Hydrox/Al Hydrox/Simeth (Mylanta Suspension) 30 Ml Oral.susp, 30 ML PO Q4H PRN for INDIGESTION, (Reported) Entered as Reported by: AMMY PALAFOX on 03/05/17 0918 Magnesium Hydroxide (Milk of Magnesia) 400 Mg/5 Ml Oral.susp, 30 ML PO DAILY PRN for CONSTIPATION-1ST LINE, (Reported) Entered as Reported by: AMMY PALAFOX on 02/25/18 0933 Magnesium Oxide (Magnesium) 400 Mg Capsule, 400 MG PO DAILY, (Reported) Entered as Reported by: PHILLY HENRY on 08/31/20 0907 Melatonin (Melatonin) 3 Mg Tablet, 3 MG PO HS, (Reported) Entered as Reported by: AMMY PALAFOX on 03/05/17 0918 Metformin HCl (Metformin HCl) 1,000 Mg Tablet, 1,000 MG PO BID, (Reported) Entered as Reported by: MURTAZA CRUM on 12/21/19 1616 Metoprolol Tartrate (Metoprolol Tartrate) 50 Mg Tablet, 50 MG PO BID, (Reported) Entered as Reported by: SAIMA HAMPTON on 07/04/20 1115 Mirtazapine (Mirtazapine) 15 Mg Tablet, 15 MG PO HS, (Reported) Entered as Reported by: SAIMA HAMPTON on 07/04/20 1115 Nicotine (Nicotine Patch) 1 Each Patch.td24, 21 MG TD DAILY, (Reported) Entered as Reported by: PHILLY HENRY on 08/31/20 0907 Tamsulosin HCl (Flomax) 0.4 Mg Cap, 0.4 MG PO DAILY, (Reported) Entered as Reported by: AMMY PALAFOX on 12/08/18 1448 Tramadol HCl (Tramadol HCl) 50 Mg Tablet, 50 MG PO DAILY, (Reported) Entered as Reported by: PHILLY HENRY on 08/31/20 0907 Venlafaxine HCl (Venlafaxine HCl ER) 75 Mg Cap.er.24h, 75 MG PO DAILY, (Reported) Entered as Reported by: SAIMA HAMPTON on 07/04/20 1115 Review of Systems Constitutional: see HPI EENTM: no symptoms reported Respiratory: no symptoms reported Cardiovascular: no symptoms reported Gastrointestinal: no symptoms reported Genitourinary: no symptoms reported Musculoskeletal: joint pain (right leg) Skin: no symptoms reported Psychiatric/Neurological: Other (dementia per record) Review of systems limited secondary to the patient's dementia All Other Systems Reviewed Negative Unless Noted: Yes Past Cnfnuzk-Otcwfa-Qkavxa Hx Immunizations Up To Date Tetanus Booster (TDap): Unknown PED Vaccines UTD: Yes Seasonal Allergies Seasonal Allergies: No Past Medical History Surgery/Hospitalization HX: HTN,ALZH,DEPRESSION, ANXIETY, DM 2, SEIZURES, BPH Surgeries: Yes (KNEE SX; BACK-DISCECTOMY/FUSIONS;TOE AMPUTATION;L EYE CATARACT 09/01/20) Amputation, Cardiac, Coronary Stent, Eye Surgery, Orthopedic, Tracheostomy Respiratory: Yes (HX OF RESP. FAILURE WITH TRACH/LATER REMOVED) COPD Cardiac: Yes (STENT IN ; SEVERE MULTIVESSEL CAD--INOPERABLE) Angina, Coronary Artery Disease, High Cholesterol, Hypertension, Peripheral Vascular Neurological: Yes (VASCULAR DEMENTIA W/BEHAVIOR DISTURBANCE; PSEUDOBULBAR AFFECT;) Dementia, Neuropathy, Seizure Disorder, Stroke Reproductive Disorders: No Genitourinary: No Gastrointestinal: Yes (CHRONIC PANCREATITIS/HX OF HEMORRHAGIC PANCREATITIS;SPLENOMEGALY) Gastroesophageal Reflux, Pancreatitis, Esophageal Varices Musculoskeletal: Yes ( CHRONIC PAIN;MULTIPLE TOE AMPUTATIONS;OSTEOMYELITIS;R HIP FX;L FEMUR FX) Amputee, Degenerate Disk Disease, Arthritis, Chronic Back Pain, Fractures Endocrine: Yes Diabetes, Insulin dep, Hypothyroidsim HEENT: Yes Cataract Cancer: No Psychosocial: Yes (DEMENTIA WITH BEHAVIOR DISTURBANCE;HX OF POLYSUBSTANCE ABUSE) Anxiety, Depression Integumentary: Yes (OSTEOMYELITIS/CELLULITIS OF TOES/FEET;CHRONIC FOOT ULCERS) Blood Disorders: No Family Medical History Cardiovascular disease 19 FATHER 19 MOTHER Diabetes mellitus G8 BROTHER FH: cancer Thyroid disease 19 MOTHER (HYPOTHYROIDISM) No Pertinent Family Hx SOCIAL HISTORY: -ETOH--HX OF ABUSE -DRUGS-HX OF METHADONE USE/ABUSE -SMOKES 2 PPD PAST SURGICAL HISTORY: -RIGHT CATARACT SURGERY 08/2020 -LEFT CATARACT SURGERY 06/2020 -RIGHT HIP FRACTURE 08/09/19--[facility]SFERRED TO [facility] -RIGHT GREAT TOE AND 3RD TOE AMPUTATION DUE TO OPEN FRACTURE OF 3RD TOE AND OSTEOMYELITIS 12/[address] ALICEA -AMPUTATIONS OF RIGHT 2ND AND 4TH TOES -AMPUTATIONS OF LEFT GREAT AND SECOND TOES -RIGHT KNEE SURGERY X 4 -BACK SURGERIES--DISCECTOMY/FUSIONS -CARDIAC CATH WITH STENT -CHOLECYSTECTOMY -STENT PLACEMENT IN PANCREAS WITH REMOVAL OF PSEUDOCYST -TRACHEOSTOMY WITH LATER REMOVAL -RIGHT 4TH TOE RAY AMPUTATION 09/11/13 DR. ABDULLAHI BUCKLEY -CARDIAC CATH 12/[address] BEARDEN--MULTI-VESSEL DISEASE/INOPERABLE LONG HISTORY OF EXTREME NON-COMPLIANCE IN ALL ASPECTS OF CARE Physical Exam Vital Signs Vital Signs - First Documented Capillary Refill : Less Than 3 Seconds Height, Weight, BMI Height: 5'10.00" Weight: 180lbs. 0.0oz. 81.713656jn; 26.00 BMI Method:Stated General Appearance: WD/WN, no apparent distress HEENT: PERRL/EOMI Neck: non-tender, full range of motion, normal inspection Cardiovascular: regular rate, rhythm Respiratory: lungs clear, normal breath sounds, no respiratory distress, no accessory muscle use Gastrointestinal: normal bowel sounds, non tender, soft Hips: left hip non-tender, left hip normal inspection, left hip normal range of motion, left hip no evidence of injury; right hip deformity, right hip limited range of motion, right hip pain Legs: right leg limited range of motion Knees: right knee other (limited ROM) Ankles: bilateral ankle non-tender, bilateral ankle normal inspection, bilateral ankle normal range of motion, bilateral ankle no evidence of injury Feet: bilateral foot non-tender, bilateral foot normal inspection, bilateral foot normal range of motion, bilateral foot no evidence of injury Neurologic/Tendon: normal sensation Neurologic/Psychiatric: alert, normal mood/affect, oriented x 3 Skin: normal color, warm/dry Progress/Results/Core Measures Results/Orders Lab Results Laboratory Tests Test 11/16/21 11:06 11/16/21 11:18 11/16/21 13:47 11/16/21 16:20 Range/Units Glucometer 178 H 100 70-110 MG/DL White Blood Count 10.4 4.3-11.0 10^3/uL Red Blood Count 4.32 4.30-5.52 10^6/uL Hemoglobin 14.0 13.3-17.7 g/dL Hematocrit 42 40-54 % Mean Corpuscular Volume 97 80-99 fL Mean Corpuscular Hemoglobin 32 25-34 pg Mean Corpuscular Hemoglobin Concent 33 32-36 g/dL Red Cell Distribution Width 12.9 10.0-14.5 % Platelet Count 178 130-400 10^3/uL Mean Platelet Volume 12.3 H 9.0-12.2 fL Immature Granulocyte % (Auto) 0 % Neutrophils (%) (Auto) 68 42-75 % Lymphocytes (%) (Auto) 21 12-44 % Monocytes (%) (Auto) 10 0-12 % Eosinophils (%) (Auto) 1 0-10 % Basophils (%) (Auto) 1 0-10 % Neutrophils # (Auto) 7.1 1.8-7.8 10^3/uL Lymphocytes # (Auto) 2.2 1.0-4.0 10^3/uL Monocytes # (Auto) 1.0 0.0-1.0 10^3/uL Eosinophils # (Auto) 0.1 0.0-0.3 10^3/uL Basophils # (Auto) 0.1 0.0-0.1 10^3/uL Immature Granulocyte # (Auto) 0.0 0.0-0.1 10^3/uL Prothrombin Time 13.3 12.2-14.7 SEC INR Comment 1.0 0.8-1.4 Activated Partial Thromboplast Time 30 24-35 SEC Sodium Level 141 135-145 MMOL/L Potassium Level 4.6 3.6-5.0 MMOL/L Chloride Level 103 98-107 MMOL/L Carbon Dioxide Level 30 21-32 MMOL/L Anion Gap 8 5-14 MMOL/L Blood Urea Nitrogen 21 H 7-18 MG/DL Creatinine 1.05 0.60-1.30 MG/DL Estimat Glomerular Filtration Rate 77 BUN/Creatinine Ratio 20 Glucose Level 186 H 70-105 MG/DL Calcium Level 9.0 8.5-10.1 MG/DL Urine Color YELLOW Urine Clarity CLEAR Urine pH 6.0 5-9 Urine Specific [place] >=1.030 1.016-1.022 Urine Protein 2+ H NEGATIVE Urine Glucose (UA) NEGATIVE NEGATIVE Urine Ketones NEGATIVE NEGATIVE Urine Nitrite NEGATIVE NEGATIVE Urine Bilirubin NEGATIVE NEGATIVE Urine Urobilinogen 0.2 < = 1.0 MG/DL Urine Leukocyte Esterase NEGATIVE NEGATIVE Urine RBC (Auto) NEGATIVE NEGATIVE Urine RBC NONE /HPF Urine WBC NONE /HPF Urine Squamous Epithelial Cells RARE /HPF Urine Crystals NONE /LPF Urine Bacteria NEGATIVE /HPF Urine Casts NONE /LPF Urine Mucus NEGATIVE /LPF Urine Culture Indicated NO My Orders Orders - JELLY RAO MD Ed Iv/Invasive Line Start (11/16/21 10:52) Pelvis With Right Hip 2-3views (11/16/21 10:52) Fentanyl Inj (Sublimaze Injection) (11/16/21 11:00) Ondansetron Injection (Zofran Injectio (11/16/21 11:00) Ns Iv 1000 Ml (Sodium Chloride 0.9%) (11/16/21 11:00) Ct Head/Cervical Spine Wo (11/16/21 11:14) Fentanyl Inj (Sublimaze Injection) (11/16/21 12:00) Cbc With Automated Diff (11/16/21 13:25) Protime With Inr (11/16/21 13:25) Partial Thromboplastin Time (11/16/21 13:25) Basic Metabolic Panel (11/16/21 13:25) Ekg Tracing (11/16/21 13:25) Ua Culture If Indicated (11/16/21 13:25) Catheter(Urinary) Insert & Ass 03,15 (11/16/21 13:25) Lidocaine 2% (Urojet) (Xylocaine Urojet) (11/16/21 13:30) Fentanyl Inj (Sublimaze Injection) (11/16/21 13:45) Morphine Injection (Morphine Injection (8/5/22 14:56) Medications Given in ED Vital Signs/I&O 11/16/21 11/16/21 11/16/21 10:32 10:32 17:05 Temp 36.8 36.8 36.8 Pulse 74 74 74 Resp 20 20 20 B/P (MAP) 169/87 (114) 169/87 (114) 169/87 Pulse Ox 97 97 97 O2 Delivery Room Air Room Air Room Air 11/17/21 00:00 Intake Total 1000 ml Balance 1000 ml Blood Pressure Mean: 114 Progress Progress Note #1: Time: 12:28 Progress Note I discussed the case with Dr. SIMMONS on-call for orthopedics here at [facility] at 1210. He does not repair or addressed periprosthetic fractures. He recommended transfer to higher level of care/joint replacement specialist. I called [facility] at 1219. I spoke with their PA on for their group. Dr. SANDOVAL is on-call. [facility] will call me back after they have reviewed. Progress Note #2: Time: 17:47 Progress Note Multiple phone calls made to try and find an accepting orthopedic surgeon. [id number] [place] and [place]. Both of these facilities stated that they did not have the capability of dealing with a possible joint revision surgery. At [address] Landon Frye and he stated that he did not do joint revision surgery. I spoke with Dr. Chisholm in the emergency department at [facility] at 1459. His orthopedic surgeon also respectfully declined as they did not have the hardware/capacity to perform hip revision surgery. [facility] at 1527 also at capacity, they declined at 1600. At 1555 I spoke with [facility], their ED provider consulted with their orthopedic trauma services and they graciously accepted the transfer. patient will go ED to ED. Initial ECG Impression Date: Nov 16, 2021 Initial ECG Impression Time: 13:58 Initial ECG Rate: 71 Initial ECG Rhythm: Normal Sinus Comment q waves inferiorly; no ST segment elevation or depression Diagnostic Imaging Diagonstic Imaging: Xray Comments NAME: JOLLY MANZANARES MED REC#: [id number] PT STATUS: REG ER : 1950 PHYSICIAN: JELLY RAO MD ADMIT DATE: 11/16/21/ER Draft Date of Exam:11/16/21 PELVIS WITH RIGHT HIP 2-3VIEWS INDICATION: Pain. FINDINGS: There is total right hip replacement. The residual proximal right femur is acutely fractured, obliquely oriented at its subtrochanteric segment with the medial component diastased by about 12 mm. Laterally at the greater trochanter, there is a vague lucency which may reflect a subacute healing or healed nondisplaced injury. No prosthetic dislocation. No hardware fracture. Acetabulum and bony pelvis are intact. IMPRESSION: Angulated and distracted subtrochanteric acute appearing right femoral fracture. More old deformities to the lateral cortex of the greater trochanter are present. No hardware injury or pelvic fracture. Dictated on workstation # [id number] Dict: 11/16/21 1156 Trans: 11/16/21 1202 [id number] Interpreted by: LACEY BUCKLEY Electronically signed by: [facility]: CT Comments [facility], [place] NAME: JOLLY MANZANARES [facility] REC#: [id number] PT STATUS: REG ER : 1950 PHYSICIAN: JELLY RAO MD ADMIT DATE: 11/16/21/ER Draft Date of Exam:11/16/21 CT HEAD/CERVICAL SPINE WO PROCEDURE: CT head and CT cervical spine without contrast. TECHNIQUE: Multiple contiguous axial images were obtained through the brain and cervical spine without the use of intravenous contrast. Sagittal and coronal reformations through the cervical spine were then performed. Auto Exposure Controls were utilized during the CT exam to meet ALARA standards for radiation dose reduction. INDICATION: Unwitnessed fall. COMPARISON: Study compared with exams of 09/03/2020. FINDINGS: HEAD: There is no hemorrhage and there is no acute extra-axial fluid collection. Atrophy, white matter disease, and old right frontal lobe encephalomalacia are chronic findings. There is no calvarial fracture deformity. No hemo-sinus. No pneumocephalus. No evidence for elevated intracranial pressures. No focal or generalized cerebral edema. Atherosclerotic vascular calcifications, chronic. CERVICAL SPINE: Mild multilevel midcervical grade 1 degenerative anterolistheses, unchanged from prior. There is severe pancervical spondylosis and facet arthrosis, chronic and unchanged. No cervical fracture. No paraspinal hemorrhage. Incidental incomplete incorporation of the posterior ring of C1, developmental, chronic, and incidental. No cervical fracture. No paravertebral hemorrhage. Hyoid, thyroid cartilage, and structures of the larynx showed no traumatic deformity. There are extensive carotid atherosclerotic vascular calcifications. Multilevel bony canal and foraminal stenoses, degenerative, stable, and chronic. IMPRESSION: CT HEAD: Stable chronic senescent findings. An old right frontal lobe encephalomalacia, all chronic. No hemorrhage, fracture, or acute finding. CERVICAL SPINE: Advanced chronic degenerative change with no fracture or dislocation. No change from prior. Dictated on workstation # [id number] Dict: 11/16/21 1148 Trans: 11/16/21 1202 [id number] Interpreted by: LACEY BUCKLEY Electronically signed by: Departure Impression Primary Impression: Eda-prosthetic femoral shaft fracture Disposition: 02 XFER SHT-TRM HOSP Condition: Stable Transfer Transfer Reason: Exceeds level of care Time Spoke to Accepting Phy: 15:55 Transfer Progress Notes Spoke with ED provider who accepted transfer to their ER Transfer Facility: [facility], [place] Method of Transfer: EMS Departure-Patient Inst. Referrals: JOLLY DELANEY MD (PCP/Family) Primary Care Physician JELLY RAO MD Nov 16, 2021 10:54
[2021-11-16] MEDS ORDERED: NS IV 1000 ML 1,000 ML IV SCH (11:00)
[2021-11-16] MEDS ORDERED: fentaNYL INJ 100 MCG/2 ML AMP IVP ONE ×3 (11:00→13:45)
[2021-11-16] MEDS ORDERED: ONDANSETRON 4 MG/2 ML (SDV) Z0FRAN IVP ONE (11:00)
--- NOTE | 2021-11-16 12:02 | Diagnostic Imaging Report ---
PROCEDURE: CT head and CT cervical spine without contrast. TECHNIQUE: Multiple contiguous axial images were obtained through the brain and cervical spine without the use of intravenous contrast. Sagittal and coronal reformations through the cervical spine were then performed. Auto Exposure Controls were utilized during the CT exam to meet ALARA standards for radiation dose reduction. INDICATION: Unwitnessed fall. COMPARISON: Study compared with exams of 09/03/2020. FINDINGS: HEAD: There is no hemorrhage and there is no acute extra-axial fluid collection. Atrophy, white matter disease, and old right frontal lobe encephalomalacia are chronic findings. There is no calvarial fracture deformity. No hemo-sinus. No pneumocephalus. No evidence for elevated intracranial pressures. No focal or generalized cerebral edema. Atherosclerotic vascular calcifications, chronic. CERVICAL SPINE: Mild multilevel midcervical grade 1 degenerative anterolistheses, unchanged from prior. There is severe pancervical spondylosis and facet arthrosis, chronic and unchanged. No cervical fracture. No paraspinal hemorrhage. Incidental incomplete incorporation of the posterior ring of C1, developmental, chronic, and incidental. No cervical fracture. No paravertebral hemorrhage. Hyoid, thyroid cartilage, and structures of the larynx showed no traumatic deformity. There are extensive carotid atherosclerotic vascular calcifications. Multilevel bony canal and foraminal stenoses, degenerative, stable, and chronic. IMPRESSION: CT HEAD: Stable chronic senescent findings. An old right frontal lobe encephalomalacia, all chronic. No hemorrhage, fracture, or acute finding. CERVICAL SPINE: Advanced chronic degenerative change with no fracture or dislocation. No change from prior. Dictated by: Dictated on workstation # [id number]
--- NOTE | 2021-11-16 12:03 | Diagnostic Imaging Report ---
INDICATION: Pain. FINDINGS: There is total right hip replacement. The residual proximal right femur is acutely fractured, obliquely oriented at its subtrochanteric segment with the medial component diastased by about 12 mm. Laterally at the greater trochanter, there is a vague lucency which may reflect a subacute healing or healed nondisplaced injury. No prosthetic dislocation. No hardware fracture. Acetabulum and bony pelvis are intact. IMPRESSION: Angulated and distracted subtrochanteric acute appearing right femoral fracture. More old deformities to the lateral cortex of the greater trochanter are present. No hardware injury or pelvic fracture. Dictated by: Dictated on workstation # [id number]
[2021-11-16] MEDS ORDERED: LIDOCAINE UROJET 2% GEL 10 ML PKG TOP ONE (13:30)
[2021-11-16 13:32] LABS: BASOPHILS # (AUTO) 0.1 10^3/uL (0.0-0.1); BASOPHILS % (AUTO) 1 % (0-10); EOSINOPHILS # (AUTO) 0.1 10^3/uL (0.0-0.3); EOSINOPHILS % (AUTO) 1 % (0-10); HEMATOCRIT 42 % (40-54); LYMPHOCYTES # (AUTO) 2.2 10^3/uL (1.0-4.0); LYMPHOCYTES % (AUTO) 21 % (12-44); MEAN CORPUSCULAR HEMOGLOBIN 32 pg (25-34); MEAN CORPUSCULAR HGB CONC 33 g/dL (32-36); MEAN CORPUSCULAR VOLUME 97 fL (80-99); MEAN PLATELET VOLUME 12.3 fL (9.0-12.2); MONOCYTES % (AUTO) 10 % (0-12); NEUTROPHILS # (AUTO) 7.1 10^3/uL (1.8-7.8); NEUTROPHILS % (AUTO) 68 % (42-75); PLATELET COUNT 178 10^3/uL (130-400); WHITE BLOOD COUNT 10.4 10^3/uL (4.3-11.0)
[2021-11-16 13:40] LABS: POTASSIUM 4.6 MMOL/L (3.6-5.0); PROTHROMBIN TIME PATIENT 13.3 SEC (12.2-14.7)
[2021-11-16 13:45] LABS: CREATININE SERUM 1.05 MG/DL (0.60-1.30)
[2021-11-16 13:53] LABS: BILIRUBIN,URINE NEGATIVE (NEGATIVE); CLARITY,URINE CLEAR; COLOR,URINE YELLOW; GLUCOSE, URINE (UA) NEGATIVE (NEGATIVE); KETONES,URINE NEGATIVE (NEGATIVE); LEUKOCYTE ESTERASE ,URINE NEGATIVE (NEGATIVE); NITRITE,URINE NEGATIVE (NEGATIVE); PROTEIN,URINE 2+ (NEGATIVE)
[2021-11-16 14:05] LABS: BACTERIA,URINE NEGATIVE /HPF; SQUAMOUS EPITHELIAL CELL,UR RARE /HPF
[2021-11-16] MEDS ORDERED: morphine INJ 10 MG/ML 1ML (SYR OR VIAL) IM STA (14:56)
[2021-11-16 17:05] VITALS: BP 169/87
[2021-11-30] MEDS ORDERED: CEFD300C3 PO (13:43)
== END 2021-11-16 17:22 | disposition short-term general hospital (02) ==
LOC: EDUNIT# 10:32 → ER 10:33
DX: S72.301A Unspecified fracture of shaft of right femur, initial encounter for closed fracture (principal); E11.9 Type 2 diabetes mellitus without complications; Z79.4 Long term (current) use of insulin; W19.XXXA Unspecified fall, initial encounter; Y92.121 Bathroom in nursing home as the place of occurrence of the external cause
CPT/HCPCS: 36410; 51702; 70450; 72125; 73502; 76937; 80048; 81000; 82947; 85025; 85610; 85730; 93005; 96361; 96372; 96374; 96375; 96376; 99285; C1751; 36415

== ENCOUNTER 2021-11-26 22:34 | Inpatient (IN) | payer MEDICARE, MEDICAID ==
[~2021-11-26] VITALS: Ht 177.8 cm; Wt 85.1 kg
[2021-11-26] MEDS ORDERED: NS IV 1000 ML 1,000 ML IV SCH ×2 (22:45→23:30)
[2021-11-26 22:55] LABS: BASOPHILS # (AUTO) 0.1 10^3/uL (0.0-0.1); BASOPHILS % (AUTO) 0 % (0-10); EOSINOPHILS # (AUTO) 0.3 10^3/uL (0.0-0.3); EOSINOPHILS % (AUTO) 2 % (0-10); HEMATOCRIT 28 % (40-54); HEMOGLOBIN 9.1 g/dL (13.3-17.7); LYMPHOCYTES # (AUTO) 2.7 10^3/uL (1.0-4.0); LYMPHOCYTES % (AUTO) 15 % (12-44); MEAN CORPUSCULAR HEMOGLOBIN 31 pg (25-34); MEAN CORPUSCULAR HGB CONC 32 g/dL (32-36); MEAN CORPUSCULAR VOLUME 96 fL (80-99); MEAN PLATELET VOLUME 10.3 fL (9.0-12.2); MONOCYTES # (AUTO) 1.4 10^3/uL (0.0-1.0); MONOCYTES % (AUTO) 7 % (0-12); NEUTROPHILS # (AUTO) 13.8 10^3/uL (1.8-7.8); NEUTROPHILS % (AUTO) 75 % (42-75); PLATELET COUNT 465 10^3/uL (130-400); WHITE BLOOD COUNT 18.3 10^3/uL (4.3-11.0)
--- NOTE | 2021-11-26 22:56 | ED General ---
General Chief Complaint: Altered Mental Status Stated Complaint: AMS Source of Information: EMS, Care Home Records, Old Records Exam Limitations: Other (PT UNABLE TO GIVE ANY SIGNIFICANT INFORMATION) History of Present Illness Date Seen by Provider: Nov 26, 2021 Time Seen by Provider: 22:36 Initial Comments PT ARRIVES VIA EMS FROM [facility] PT WAS FOUND 30 MINUTES PRIOR TO ARRIVAL WITH ALTERED MENTAL STATUS LAST KNOWN WELL TIME IS UNKNOWN PT RECENTLY HAD RIGHT HIP SURGERY--11/16/21 HAD A FRACTURE OF HIS PROSTHETIC HIP AND TRANSFERRED TO [facility]. EMS REPORT THAT [facility] STAFF GAVE NARCAN WITHOUT IMPROVEMENT PT IS DIABETIC, BLOOD GLUCOSE > 200 FOR EMS. PT WITH HISTORY OF SEIZURES--IS UNKNOWN HOW OFTEN HE HAS SEIZURES ON ARRIVAL, PT IS LETHARGIC, BUT AWAKE, IS ABLE TO ANSWER AND STATE HIS NAME, KNOWS HE IS IN A HOSPITAL, AND WHEN ASKED WHY HE IS HERE, HE STATES "BECAUSE I'M SICK" BUT UNABLE TO ELABORATE MORE THAN THAT. PT HAS HISTORY OF DEMENTIA WITH BEHAVIOR DISTURBANCE PT HAS LONGSTANDING HISTORY OF POLYSUBSTANCE ABUSE, INCLUDING METHADONE ABUSE, ALCOHOL ABUSE, AND SMOKES 2 PPD PT HAS LONG HISTORY OF NON-COMPLIANCE IN ALL ASPECTS OF CARE PCP: DR. DELANEY Allergies and Home Medications Allergies Coded Allergies: acetaminophen (Verified Allergy, Intermediate, 10/26/17) Patient Home Medication List Home Medication List Reviewed: Yes Acetaminophen (Tylenol Extra Strength) 500 Mg Tablet, 1,000 MG PO Q8H PRN for PAIN-MILD (1-4), (Reported) Entered as Reported by: MURTAZA CRUM on 11/27/21 1456 Last Action: Continued Albuterol Sulfate (Albuterol Sulfate) 2.5 Mg/3 Ml Vial.neb, 2.5 MG NEB UD PRN for SHORTNESS OF BREATH, (Reported) Entered as Reported by: AMMY PALAFOX on 12/08/18 1448 Last Action: Continued Aspirin (Aspirin EC) 81 Mg Tablet., 81 MG PO BID, (Reported) Entered as Reported by: MURTAZA CRUM on 11/27/21 1456 Last Action: Continued Cholecalciferol (Vitamin D3) (Vitamin D3) 125 Mcg (5000 Unit) Capsule, 125 MCG PO DAILY, (Reported) Entered as Reported by: MURTAZA CRUM on 12/21/19 1616 Last Action: Converted Clonazepam (Clonazepam) 0.5 Mg Tablet, 0.5 MG PO 0800,1400, (Reported) Entered as Reported by: MURTAZA CRUM on 11/27/21 1456 Last Action: Continued Clonidine HCl (Clonidine HCl) 0.2 Mg Tablet, 0.2 MG PO BID, (Reported) Entered as Reported by: SAIMA HAMPTON on 07/04/20 1115 Last Action: Continued Clopidogrel Bisulfate (Plavix) 75 Mg Tablet, 75 MG PO DAILY, (Reported) Entered as Reported by: AMMY PALAFOX on 03/05/17917 Last Action: Continued Divalproex Sodium (Divalproex Sodium) 125 Mg Cap.sprink, 125 MG PO TID, (Reported) Entered as Reported by: AMMY PALAFOX on 03/05/17917 Last Action: Continued Docusate Sodium (Colace) 100 Mg Capsule, 100 MG PO BID, (Reported) Entered as Reported by: MURTAZA CRUM on 12/21/191615 Last Action: Continued Donepezil HCl (Aricept) 10 Mg Tablet, 10 MG PO HS, (Reported) Entered as Reported by: AMMY PALAFOX on 03/05/17917 Last Action: Continued Dulaglutide (Trulicity) 0.75 Mg/0.5 Ml Pen.injctr, 0.75 MG SC SUN, (Reported) Entered as Reported by: AMMY PALAFOX on 12/08/18 144 Last Action: Held Enalapril Maleate (Enalapril Maleate) 2.5 Mg Tablet, 2.5 MG PO DAILY, (Reported) Entered as Reported by: AMMY PALAFOX on 03/05/17917 Last Action: Continued Escitalopram Oxalate (Lexapro) 5 Mg Tablet, 5 MG PO DAILY, (Reported) Entered as Reported by: PHILLY HENRY on 08/31/20 0907 Last Action: Converted Ferrous Sulfate (Ferrous Sulfate) 325 Mg Tablet, 325 MG PO Q48H, (Reported) Entered as Reported by: MURTAZA CRUM on 12/21/191615 Last Action: Continued Gabapentin (Neurontin) 300 Mg Capsule, 300 MG PO HS, (Reported) Entered as Reported by: MURTAZA CRUM on 12/21/191615 Last Action: Continued Glucagon HCl (Glucagon Emergency Kit) 1 Mg Vial, 1 MG IM UD PRN for HYPOGLYCEMIA, (Reported) Entered as Reported by: MURTAZA CRUM on 11/27/211455 Last Action: Held Icosapent Ethyl (Vascepa) 1 Gm Capsule, 1 GM PO BID, (Reported) Entered as Reported by: AMMY PALAFOX on 12/08/181447 Last Action: Continued Insulin Aspart (Novolog) 100 Unit/Ml Susp, 7 UNIT SQ AC, (Reported) Entered as Reported by: SAIMA HAMPTON on 04/29/19 0816 Last Action: Held Insulin Detemir (Levemir Flextouch) 100 Unit/Ml (3 Ml) Insuln.pen, 15 UNITS SC DAILY, (Reported) Entered as Reported by: MURTAZA CRUM on 12/21/19 161 Last Action: Converted Lactobacillus Acidophilus/Pect (Acidophilus-Pectin Capsule) 1 Each Capsule, 1 CAP PO QID, (Reported) Entered as Reported by: AMMY PALAFOX on 12/08/181447 Last Action: Continued Lansoprazole (Lansoprazole) 15 Mg Capsule.dr, 15 MG PO DAILY, (Reported) Entered as Reported by: MURTAZA CRUM on 11/27/211455 Last Action: Converted Levetiracetam (Levetiracetam) 500 Mg Tablet, 500 MG PO BID, (Reported) Entered as Reported by: AMMY PALAFOX on 03/05/17917 Last Action: Continued Levothyroxine Sodium (Levothyroxine Sodium) 175 Mcg Tablet, 175 MCG PO DAILY, (Reported) Entered as Reported by: YUSEF CHRISTIAN on 10/26/17 1356 Last Action: Converted Lorazepam (Ativan) 1 Mg Tablet, 1 MG PO Q8H PRN for ANXIETY, (Reported) Entered as Reported by: MURTAZA CRUM on 11/27/211455 Last Action: Continued Mag Hydrox/Al Hydrox/Simeth (Mylanta Suspension) 30 Ml Oral.susp, 30 ML PO Q4H PRN for INDIGESTION, (Reported) Entered as Reported by: AMMY PALAFOX on 03/05/17917 Last Action: Held Magnesium Hydroxide (Milk of Magnesia) 400 Mg/5 Ml Oral.susp, 30 ML PO DAILY PRN for CONSTIPATION-1ST LINE, (Reported) Entered as Reported by: AMMY PALAFOX on 02/25/18 0933 Last Action: Held Melatonin (Melatonin) 3 Mg Tablet, 3 MG PO HS, (Reported) Entered as Reported by: AMMY PALAFOX on 03/05/1718 Last Action: Continued Memantine HCl (Memantine HCl) 5 Mg Tablet, 5 MG PO HS, (Reported) Entered as Reported by: MURTAZA CRUM on 11/27/211455 Last Action: Continued Metformin HCl (Metformin HCl) 500 Mg Tablet, 500 MG PO BID, (Reported) Entered as Reported by: MURTAZA CRUM on 11/27/211455 Last Action: Held Metoprolol Tartrate (Metoprolol Tartrate) 50 Mg Tablet, 50 MG PO BID WITH MEALS, (Reported) Entered as Reported by: SAIMA HAMPTON on 07/04/201114 Last Action: Continued Mirtazapine (Mirtazapine) 15 Mg Tablet, 15 MG PO HS, (Reported) Entered as Reported by: SAIMA HAMPTON on 07/04/201114 Last Action: Converted Multivitamin (Multivitamin) 1 Each Tablet, 1 EACH PO DAILY, (Reported) Entered as Reported by: MURTAZA CRUM on 11/27/211455 Last Action: Converted Nicotine (Nicotine Patch) 1 Each Patch.td24, 21 MG TD DAILY, (Reported) Entered as Reported by: PHILLY HENRY on 08/31/20 0907 Last Action: Continued Propylene Glycol (Systane Complete) 0.6 % Drops, 1 DROP OU BID, (Reported) Entered as Reported by: MURTAZA CRUM on 11/27/211455 Last Action: Converted Simvastatin (Simvastatin) 10 Mg Tablet, 10 MG PO HS, (Reported) Entered as Reported by: MURTAZA CRUM on 11/27/211455 Last Action: Converted Tamsulosin HCl (Flomax) 0.4 Mg Cap, 0.4 MG PO DAILY, (Reported) Entered as Reported by: AMMY PALAFOX on 12/08/18 144 Last Action: Continued Thiamine Mononitrate (Vitamin B-1) 100 Mg Tablet, 100 MG PO DAILY, (Reported) Entered as Reported by: MURTAZA CRUM on 11/27/211455 Last Action: Converted Tramadol HCl (Tramadol HCl) 50 Mg Tablet, 100 MG PO Q6H PRN for PAIN-MODERATE (5-7), (Reported) Entered as Reported by: PHILLY HENRY on 08/31/20 09 Last Action: Continued Venlafaxine HCl (Venlafaxine HCl ER) 75 Mg Cap.er.24h, 75 MG PO DAILY, (Reported) Entered as Reported by: SAIMA HAMPTON on 07/04/20 1115 Last Action: Continued Discontinued Medications Clonazepam (Klonopin) 1 Mg Tablet, 0.5 MG PO BID, (Reported) Discontinued Reason: Duplicate Order Entered as Reported by: SAIMA HAMPTON on 07/04/20 111 Last Action: Discontinued Lorazepam (Ativan) 1 Mg Tablet, 1 MG PO TID PRN for AGITATION Discontinued Reason: Duplicate Order Prescribed by: CUCO UMANA on 02/05/21 0614 Last Action: Discontinued Magnesium Oxide (Magnesium) 400 Mg Capsule, 400 MG PO DAILY, (Reported) Discontinued Reason: No Longer Taking Entered as Reported by: PHILLY HENRY on 08/31/20906 Last Action: Discontinued Metformin HCl (Metformin HCl) 1,000 Mg Tablet, 1,000 MG PO BID, (Reported) Discontinued Reason: Duplicate Order Entered as Reported by: MURTAZA CRUM on 12/21/19 1616 Last Action: Discontinued Review of Systems Review of Systems Constitutional: see HPI Respiratory: No short of breath Psychiatric/Neurological: See HPI Past Jebbkth-Fhnebx-Wtjxri Hx Patient Social History Tobacco Use?: Yes Tobacco type used: Cigarettes Smoking Status: Current Everyday Smoker Substance use?: Yes Alcohol Use?: Yes Immunizations Up To Date Tetanus Booster (TDap): Unknown PED Vaccines UTD: Yes First/Initial COVID19 Vaccinat: 04/27/20 Second COVID19 Vaccination Joaquin: 05/18/20 Third COVID19 Vaccination Date: 03/14/21 Seasonal Allergies Seasonal Allergies: No Past Medical History Surgery/Hospitalization HX: HTN,DEMENTIA,DEPRESSION, ANXIETY, DM 2 NOW INSULIN DEPENDENT, SEIZURES, BPH, COPD, PVD, ANEMIA ,ARTHRITIS RIGHT FEMUR FX, RIGHT HIP REPLACEMENT Surgeries: Yes (KNEE SX; BACK-DISCECTOMY/FUSIONS;TOE AMPUTATION;L EYE CATARACT 09/01/20) Amputation, Cardiac, Coronary Stent, Eye Surgery, Orthopedic, Tracheostomy Respiratory: Yes (HX OF RESP. FAILURE WITH TRACH/LATER REMOVED) COPD Cardiac: Yes (STENT IN ; SEVERE MULTIVESSEL CAD--INOPERABLE) Angina, Coronary Artery Disease, High Cholesterol, Hypertension, Peripheral Vascular Neurological: Yes (VASCULAR DEMENTIA W/BEHAVIOR DISTURBANCE;PSEUDOBULBAR A FFECT;CVA R FRONTAL) Dementia, Neuropathy, Seizure Disorder, Stroke Reproductive Disorders: No Genitourinary: No Gastrointestinal: Yes (CHRONIC PANCREATITIS/HX OF HEMORRHAGIC PANCREATITIS;SP LENOMEGALY) Gastroesophageal Reflux, Pancreatitis, Esophageal Varices Musculoskeletal: Yes ( CHRONIC PAIN;MULTIPLE TOE AMPUTATIONS;OSTEOMYELITIS;R HIP FX;L FEMUR FX) Amputee, Degenerate Disk Disease, Arthritis, Chronic Back Pain, Fractures Endocrine: Yes Diabetes, Insulin dep, Hypothyroidsim HEENT: Yes Cataract Cancer: No Psychosocial: Yes (DEMENTIA WITH BEHAVIOR DISTURBANCE;HX OF POLYSUBSTANCE ABUS E) Anxiety, Depression Integumentary: Yes (OSTEOMYELITIS/CELLULITIS OF TOES/FEET;CHRONIC FOOT ULCERS) Blood Disorders: No Family Medical History Cardiovascular disease 19 FATHER 19 MOTHER Diabetes mellitus G8 BROTHER FH: cancer Thyroid disease 19 MOTHER (HYPOTHYROIDISM) No Pertinent Family Hx SOCIAL HISTORY: -ETOH--HX OF ABUSE -DRUGS-HX OF METHADONE USE/ABUSE -SMOKES 2 PPD PAST SURGICAL HISTORY: -RIGHT CATARACT SURGERY 08/2020 -LEFT CATARACT SURGERY 06/2020 -RIGHT HIP FRACTURE 08/09/19--TRANSFERRED TO [facility] -RIGHT GREAT TOE AND 3RD TOE AMPUTATION DUE TO OPEN FRACTURE OF 3RD TOE AND OSTEOMYELITIS 12/[address] ALICEA -AMPUTATIONS OF RIGHT 2ND AND 4TH TOES -AMPUTATIONS OF LEFT GREAT AND SECOND TOES -RIGHT KNEE SURGERY X 4 -BACK SURGERIES--DISCECTOMY/FUSIONS -CARDIAC CATH WITH STENT -CHOLECYSTECTOMY -STENT PLACEMENT IN PANCREAS WITH REMOVAL OF PSEUDOCYST -TRACHEOSTOMY WITH LATER REMOVAL -RIGHT 4TH TOE RAY AMPUTATION 09/11/13 DR. ABDULLAHI BUCKLEY -CARDIAC CATH 12/[address] BEARDEN--MULTI-VESSEL DISEASE/INOPERABLE -11/16/21--FRACTURE OF PROSTHETIC RIGHT HIP/TRANSFERRED TO [facility] AND HAD SURGICAL REPAIR AT THAT TIME. LONG HISTORY OF EXTREME NON-COMPLIANCE IN ALL ASPECTS OF CARE Physical Exam Vital Signs Vital Signs - First Documented 11/26/21 22:34 Temp 36.7 Pulse 71 Resp 20 B/P (MAP) 94/57 (69) Pulse Ox 98 Capillary Refill : Height, Weight, BMI Height: 5'10.00" Weight: 180lbs. 0.0oz. 81.414724lf; 26.00 BMI Method:Stated General Appearance: WD/WN, Other (PT AWAKE, BUT LETHARGIC, BLANK STARE, MOUTH O PEN/MOUTH BREATHING. PT ABLE TO ANSWER HIS NAME AND KNOWS HE IS IN HOSPITAL AND STATES HE IS HERE BECAUSE "I'M SICK" BUT UNABLE TO ELABORATE; PT DOES VOICE THAT BED IS HARD. ) HEENT: PERRL/EOMI, Other (EDENTULOUS. ORAL MUCOSA DRY, BUT PT IS A MOUTH BREATHER) Neck: Normal Inspection Respiratory: Normal Breath Sounds, No Accessory Muscle Use, No Respiratory Distress Cardiovascular: Regular Rate, Rhythm, No JVD, No Murmur, Normal Peripheral Pulses, Other (BOTH LEGS/FEET IN PODUS BOOTS) Gastrointestinal: Non Tender, Soft Extremity: No Pedal Edema, Other (RIGHT HIP SURGICAL SITE APPEARS NORMAL-NO SIGNS OF INFECTION; MULTIPLE TOE AMPTUTATIONS) Neurologic/Psychiatric: Alert, No Motor/Sensory Deficits (MOVES ALL EXTREMETIES, BUT WITH GENERALIZED WEAKNESS. ), Other ( ABOVE. ) Skin: Normal Color, Warm/Dry Focused Exam Sepsis Stage: Severe Sepsis Possible Source: Genitouriary Lactate Level 11/26/21 23:05: Lactic Acid Level 1.77 Time of Focused Exam: 23:50 Respiratory: Normal Breath Sounds, No Accessory Muscle Use, No Respiratory Distress Cardiovascular: Regular Rate, Rhythm, No JVD, No Murmur Capillary Refill: Less Than 3 Seconds Skin: normal color, warm/dry Lactic Acid Level Laboratory Tests Test 11/26/21 23:05 Lactic Acid Level 1.77 MMOL/L (0.50-2.00) Within 3hrs of presentation: Admin fluids, Admin ABX, Blood cultures prior to ABX's, Focus exam, Lactate level Progress/Results/Core Measures Suspected Sepsis SIRS Temperature: Pulse: Respiratory Rate: Blood Pressure / Mean: 11/26/21 23:05: Lactic Acid Level 1.77 Laboratory Tests 11/26/21 22:38: INR Comment 1.0 11/26/21 22:42: Total Bilirubin 0.4 Results/Orders Lab Results Laboratory Tests Test 11/26/21 22:38 11/26/21 22:42 11/26/21 22:45 11/26/21 22:52 Range/Units White Blood Count 18.3 H 4.3-11.0 10^3/uL Red Blood Count 2.96 L 4.30-5.52 10^6/uL Hemoglobin 9.1 L 13.3-17.7 g/dL Hematocrit 28 L 40-54 % Mean Corpuscular Volume 96 80-99 fL Mean Corpuscular Hemoglobin 31 25-34 pg Mean Corpuscular Hemoglobin Concent 32 32-36 g/dL Red Cell Distribution Width 15.3 H 10.0-14.5 % Platelet Count 465 H 130-400 10^3/uL Mean Platelet Volume 10.3 9.0-12.2 fL Immature Granulocyte % (Auto) 1 % Neutrophils (%) (Auto) 75 42-75 % Lymphocytes (%) (Auto) 15 12-44 % Monocytes (%) (Auto) 7 0-12 % Eosinophils (%) (Auto) 2 0-10 % Basophils (%) (Auto) 0 0-10 % Neutrophils # (Auto) 13.8 H 1.8-7.8 10^3/uL Lymphocytes # (Auto) 2.7 1.0-4.0 10^3/uL Monocytes # (Auto) 1.4 H 0.0-1.0 10^3/uL Eosinophils # (Auto) 0.3 0.0-0.3 10^3/uL Basophils # (Auto) 0.1 0.0-0.1 10^3/uL Immature Granulocyte # (Auto) 0.2 H 0.0-0.1 10^3/uL Neutrophils % (Manual) 71 % Lymphocytes % (Manual) 11 % Monocytes % (Manual) 9 % Eosinophils % (Manual) 1 % Band Neutrophils 8 % Polychromasia SLIGHT Anisocytosis SLIGHT Erythrocyte Sedimentation Rate 77 H 0-30 MM/HR Prothrombin Time 13.3 12.2-14.7 SEC INR Comment 1.0 0.8-1.4 Activated Partial Thromboplast Time 30 24-35 SEC Sodium Level 133 L 135-145 MMOL/L Potassium Level 4.6 3.6-5.0 MMOL/L Chloride Level 98 98-107 MMOL/L Carbon Dioxide Level 25 21-32 MMOL/L Anion Gap 10 5-14 MMOL/L Blood Urea Nitrogen 24 H 7-18 MG/DL Creatinine 1.07 0.60-1.30 MG/DL Estimat Glomerular Filtration Rate 75 BUN/Creatinine Ratio 22 Glucose Level 162 H 70-105 MG/DL Calcium Level 8.5 8.5-10.1 MG/DL Corrected Calcium 9.7 8.5-10.1 MG/DL Magnesium Level 1.9 1.6-2.4 MG/DL Total Bilirubin 0.4 0.1-1.0 MG/DL Aspartate Amino Transf (AST/SGOT) 48 H 5-34 U/L Alanine Aminotransferase (ALT/SGPT) 41 0-55 U/L Alkaline Phosphatase 189 H 40-136 U/L Ammonia 22 11-32 UMOL/L Total Creatine Kinase 37 30-200 U/L Creatine Kinase MB 0.8 <6.6 NG/ML Myoglobin 62.0 10.0-92.0 NG/ML Troponin I 0.144 H <0.028 NG/ML C-Reactive Protein High Sensitivity 10.55 H 0.00-0.50 MG/DL Total Protein 5.4 L 6.4-8.2 GM/DL Albumin 2.5 L 3.2-4.5 GM/DL Amylase Level 23 L 25-125 U/L Lipase 4 L 8-78 U/L Procalcitonin 0.35 H <0.10 NG/ML Free Thyroxine 0.69 L 0.70-1.48 NG/DL TSH [place] Testing 12.76 H 0.35-4.94 UIU/ML Acetaminophen Level < 10 L 10-30 UG/ML Valproic Acid (Depakene) Level 13.0 L 50.0-100.0 UG/ML Serum Alcohol < 10 <10 MG/DL Influenza Type A (RT-PCR) Not Detected Not Detecte Influenza Type B (RT-PCR) Not Detected Not Detecte SARS-CoV-2 RNA (RT-PCR) Not Detected Not Detecte Urine Color DARK YELLOW Urine Clarity SL CLOUDY Urine pH 6.0 5-9 Urine Specific [place] 1.020 1.016-1.022 Urine Protein 2+ H NEGATIVE Urine Glucose (UA) NEGATIVE NEGATIVE Urine Ketones TRACE H NEGATIVE Urine Nitrite NEGATIVE NEGATIVE Urine Bilirubin NEGATIVE NEGATIVE Urine Urobilinogen 4.0 < = 1.0 MG/DL Urine Leukocyte Esterase 2+ H NEGATIVE Urine RBC (Auto) 3+ H NEGATIVE Urine RBC >100 H /HPF Urine WBC TNTC H /HPF Urine Squamous Epithelial Cells RARE /HPF Urine Crystals NONE /LPF Urine Bacteria LARGE H /HPF Urine Casts NONE /LPF Urine Mucus SMALL H /LPF Urine Culture Indicated CULTURE PENDING Urine Opiates Screen NEGATIVE NEGATIVE Urine Oxycodone Screen NEGATIVE NEGATIVE Urine Methadone Screen NEGATIVE NEGATIVE Urine Propoxyphene Screen NEGATIVE NEGATIVE Urine Barbiturates Screen NEGATIVE NEGATIVE Ur Tricyclic Antidepressants Screen NEGATIVE NEGATIVE Urine Phencyclidine Screen NEGATIVE NEGATIVE Urine Amphetamines Screen NEGATIVE NEGATIVE Urine Methamphetamines Screen NEGATIVE NEGATIVE Urine Benzodiazepines Screen NEGATIVE NEGATIVE Urine Cocaine Screen NEGATIVE NEGATIVE Urine Cannabinoids Screen NEGATIVE NEGATIVE Test 11/26/21 22:55 11/26/21 22:56 11/26/21 23:05 Range/Units Glucometer 161 H 70-110 MG/DL Bedside Blood Gas pH (LAB) 7.495 H 7.310-7.410 Bedside Blood Gas pCO2 (LAB) 37.9 L 41.0-51.0 mmHg Bedside Blood Gas pO2 (LAB) 83 80-105 mmHg Bedside Blood Gas HCO3 (LAB) 29.2 H 23.0-28.0 mmol/L POC Blood Gas Total CO2 Calc 30 H 24-29 mmol/L Bedside Bl Gas O2 Saturation (Calc) 97 95-98 % Bedside Arterial Blood Base Excess 6 H -2-3 mmol/L Lactic Acid Level 1.77 0.50-2.00 MMOL/L Micro Results Microbiology 11/26/21 Blood Culture - Preliminary, Resulted No growth 11/26/21 Blood Culture - Preliminary, Resulted No growth 11/26/21 Urine Culture - Final, Complete Escherichia coli My Orders Orders - CUCO UMANA DO Ed Iv/Invasive Line Start (11/26/21 22:42) Ekg Tracing (11/26/21 22:42) Catheter(Urinary) Insert & Ass 03,15 (11/26/21 22:42) O2 (11/26/21 22:42) Monitor-Rhythm Ecg Trace Only (11/26/21 22:42) Ct Head Wo-R/O Stroke (11/26/21 22:42) Chest 1 View, Ap/Pa Only (11/26/21 22:42) Acetaminophen (11/26/21 22:42) Alcohol (11/26/21 22:42) Ammonia (11/26/21 22:42) Amylase (11/26/21 22:42) Cbc With Automated Diff (11/26/21 22:42) Comprehensive Metabolic Panel (11/26/21 22:42) Creatine Kinase (11/26/21:42) Creatine Kinase Mb (11/26/21:42) Hs C Reactive Protein (11/26/21:42) Drug Screen Stat (Urine) (11/26/21 22:42) Lactic Acid Analyzer (11/26/21:42) Lipase (11/26/21:42) Magnesium (11/26/21:42) Procalcitonin (Pct) (11/26/21:42) Protime With Inr (11/26/21:42) Partial Thromboplastin Time (11/26/21:42) Thyroid Analyzer (11/26/21:42) Ua Culture If Indicated (11/26/21:) Blood Culture (11/26/21:42) Erythrocyte Sedimentation Rate (11/26/21:42) Myoglobin Serum (11/26/21:42) Troponin I [place] (11/26/21:42) Ed Iv/Invasive Line Start (11/26/21 22:42) Ns Iv 1000 Ml (Sodium Chloride 0.9%) (11/26/21 22:45) Covid 19 Inhouse Test (11/26/21:42) Influenza A And B By Pcr (11/26/21:42) Isolation Central Supply Req (11/26/21 22:42) Valproic Acid (11/26/21 22:48) Manual Differential (11/26/21 22:38) Arterial Blood Draw - Obtain (11/26/21 22:47) Urine Culture (11/26/21 23:18) Ed Iv/Invasive Line Start (11/26/21 23:18) Remove Rings In Anticipation O (11/26/21 23:18) Ed Iv/Invasive Line Start (11/26/21 23:19) Ns Iv 1000 Ml (Sodium Chloride 0.9%) (11/26/21 23:30) Cefepime Injection (Maxipime Injection) (11/26/21 23:30) Free T4 (Free Thyroxine) (11/26/21 22:42) Medications Given in ED Vital Signs/I&O 8/15/22 8/15/22 8/15/22 22:34 22:34 22:34 Temp 36.7 Pulse 71 Resp 20 B/P (MAP) 94/57 (69) Pulse Ox 98 O2 Delivery Nasal Cannula Nasal Cannula Nasal Cannula O2 Flow Rate 2.00 2.00 2.00 Capillary Refill : Progress Note : Progress Note SEPSIS PROTOCOL INITIATED NO DETERIORATION IN PT'S CONDITION DURING ER STAY PT WOULD TALK SPONTANEOUSLY, STATING THAT THE BED WAS HARD AND HE NEEDED COMFORT--BED AND POSITION ADJUSTED SEVERAL TIMES. PT SLEPT THROUGH MUCH OF ER STAY, EASILY AWAKENS AND MENTATION IS STABLE O2 SATS 94-100% ON O2 AT 2L/NC--SWITCHED TO OXIMASK, PT IS A MOUTH BREATHER. BP 120 SYSTOLIC, HR IN 70'S AT TIME OF ADMIT NO FEVER NO HYPOXIA NO DYSPNEA ECG Initial ECG Impression Date: Nov 26, 2021 Initial ECG Impression Time: 23:01 Initial ECG Rate: 69 Initial ECG Rhythm: Normal Sinus Initial ECG Impression: Nonspecific Changes Initial ECG Comparisson: Unchanged Diagnostic Imaging Comments CXR--NO ACUTE PROCESS, PENDING RADIOLOGIST REVIEW CT HEAD--NO ACUTE PROCESS, CHRONIC/STABLE CHANGES FROM OLD RIGHT FRONTAL INFARCT, CHRONIC MICROVASCULAR DISEASE--PER [facility] RADIOLOGIST VIA PHONE AT [phone] Reviewed: Reviewed by Me Departure Communication (Admissions) 0006--SPOKE WITH DR. RAMEY, ACCEPTS PT FOR ADMIT. Impression Primary Impression: Severe sepsis Additional Impressions: UTI (urinary tract infection) Elevated troponin Dementia with behavioral disturbance Postoperative anemia IDDM (insulin dependent diabetes mellitus) History of seizures Malnutrition Disposition: ADMITTED INPATIENT Condition: Improved Admissions Decision to Admit Reason: Admit from ER (General) Decision to Admit/Date: Nov 27, 2021 Time/Decision to Admit Time: 00:10 Departure-Patient Inst. Referrals: JOLLY DELANEY MD (PCP/Family) Primary Care Physician CUCO UMANA DO Nov 26, 2021 22:56
[2021-11-26 22:59] LABS: CHLORIDE 98 MMOL/L (98-107)
[2021-11-26 23:00] LABS: ALBUMIN 2.5 GM/DL (3.2-4.5); POTASSIUM 4.6 MMOL/L (3.6-5.0); SODIUM 133 MMOL/L (135-145)
[2021-11-26 23:01] LABS: AMYLASE 23 U/L (25-125); CALCIUM 8.5 MG/DL (8.5-10.1)
[2021-11-26 23:02] LABS: AMMONIA 22 UMOL/L (11-32); GLUCOSE 162 MG/DL (70-105)
[2021-11-26 23:03] LABS: CARBON DIOXIDE 25 MMOL/L (21-32); TOTAL PROTEIN 5.4 GM/DL (6.4-8.2)
[2021-11-26 23:04] LABS: BILIRUBIN,TOTAL 0.4 MG/DL (0.1-1.0)
[2021-11-26 23:06] LABS: ALKALINE PHOSPHATASE 189 U/L (40-136); CREATININE SERUM 1.07 MG/DL (0.60-1.30); GFR ESTIMATED 75
[2021-11-26 23:07] LABS: ACETAMINOPHEN < 10 UG/ML (10-30); BUN/CREATININE RATIO 22
[2021-11-26 23:09] LABS: ALANINE AMINOTRANSFERASE 41 U/L (0-55); MAGNESIUM 1.9 MG/DL (1.6-2.4)
[2021-11-26 23:10] LABS: CREATINE KINASE 37 U/L (30-200); LIPASE 4 U/L (8-78)
[2021-11-26 23:16] LABS: PROTHROMBIN TIME PATIENT 13.3 SEC (12.2-14.7)
[2021-11-26 23:17] LABS: BILIRUBIN,URINE NEGATIVE (NEGATIVE); CLARITY,URINE SL CLOUDY; COLOR,URINE DARK YELLOW; GLUCOSE, URINE (UA) NEGATIVE (NEGATIVE); KETONES,URINE TRACE (NEGATIVE); LEUKOCYTE ESTERASE ,URINE 2+ (NEGATIVE); NITRITE,URINE NEGATIVE (NEGATIVE); PROTEIN,URINE 2+ (NEGATIVE)
[2021-11-26 23:18] LABS: CREATINE KINASE MB 0.8 NG/ML (<6.6)
[2021-11-26 23:21] LABS: BAND NEUTROPHILS 8 %; EOSINOPHILS % (MANUAL) 1 %; LYMPHOCYTES % (MANUAL) 11 %; MONOCYTES % (MANUAL) 9 %; NEUTROPHILS % (MANUAL) 71 %; POLYCHROMASIA SLIGHT
[2021-11-26 23:22] LABS: ANISOCYTOSIS SLIGHT; ERYTHROCYTE SEDIMENTATION RATE 77 MM/HR (0-30)
[2021-11-26 23:25] LABS: BACTERIA,URINE LARGE /HPF; RBC,URINE >100 /HPF; SQUAMOUS EPITHELIAL CELL,UR RARE /HPF; WBC,URINE TNTC /HPF
[2021-11-26 23:30] LABS: TSH (THYROID ANALYZER) 12.76 UIU/ML (0.35-4.94)
[2021-11-26] MEDS ORDERED: CEFEPIME INJECTION 1,000 MG in NS (IVPB) 50 ML IV ONE (23:30)
[2021-11-26 23:40] LABS: AMPHETAMINE SCREEN, URINE NEGATIVE (NEGATIVE); BARBITURATE SCREEN URINE NEGATIVE (NEGATIVE); BENZODIAZEPINES SCREEN URINE NEGATIVE (NEGATIVE); CANNABINOID SCREEN, URINE NEGATIVE (NEGATIVE); COCAINE SCREEN URINE NEGATIVE (NEGATIVE); METHADONE STAT NEGATIVE (NEGATIVE); OPIATE SCREEN URINE NEGATIVE (NEGATIVE); OXYCODONE STAT NEGATIVE (NEGATIVE); PROPOXYPHENE STAT NEGATIVE (NEGATIVE); TRICYCLIC ANTIDEPRESSANTS SCRE NEGATIVE (NEGATIVE)
[2021-11-27] VITALS (22 sets, daily range): BP systolic 109–169; BP diastolic 56–87
[2021-11-27 00:08] LABS: FREE T4 (FREE THYROXINE) 0.69 NG/DL (0.70-1.48)
[2021-11-27] MEDS ORDERED: NS IV 1000 ML 1,000 ML ONE (02:47)
[2021-11-27] MEDS ORDERED: NOREPINEPHRINE 8 MG/250 ML 250 ML IV SCH (03:30)
[2021-11-27] MEDS ORDERED: EPINEPHrine 1 MG INJECTION 4 MG in NS (IVPB) 248 ML IV SCH (03:30)
[2021-11-27] MEDS ORDERED: ONDANSETRON 4 MG/2 ML (SDV) Z0FRAN IVP PRN (03:30)
[2021-11-27] MEDS ORDERED: VASOPRESSIN INJECTION 20 UNIT in NS (IVPB) 100 ML IV SCH (03:30)
[2021-11-27] MEDS: NS IV 1000 ML 1,000 ML IV SCH ×6 (03:41→22:39)
[2021-11-27] MEDS: CEFEPIME 1,000 MG/NS 50 ML IVPB IV SCH ×8 (05:15→22:39)
[2021-11-27 05:16] LABS: BASOPHILS # (AUTO) 0.1 10^3/uL (0.0-0.1); BASOPHILS % (AUTO) 1 % (0-10); EOSINOPHILS # (AUTO) 0.2 10^3/uL (0.0-0.3); EOSINOPHILS % (AUTO) 1 % (0-10); HEMATOCRIT 24 % (40-54); HEMOGLOBIN 7.5 g/dL (13.3-17.7); LYMPHOCYTES # (AUTO) 2.1 10^3/uL (1.0-4.0); LYMPHOCYTES % (AUTO) 12 % (12-44); MEAN CORPUSCULAR HEMOGLOBIN 31 pg (25-34); MEAN CORPUSCULAR HGB CONC 32 g/dL (32-36); MEAN CORPUSCULAR VOLUME 98 fL (80-99); MEAN PLATELET VOLUME 10.2 fL (9.0-12.2); MONOCYTES # (AUTO) 1.1 10^3/uL (0.0-1.0); MONOCYTES % (AUTO) 7 % (0-12); NEUTROPHILS # (AUTO) 13.8 10^3/uL (1.8-7.8); NEUTROPHILS % (AUTO) 79 % (42-75); PLATELET COUNT 389 10^3/uL (130-400); WHITE BLOOD COUNT 17.5 10^3/uL (4.3-11.0)
[2021-11-27] MEDS: CATHETER FLUSH 10 ML SYR IVP SCH ×3 (05:16→22:29)
[2021-11-27 05:26] LABS: POTASSIUM 4.4 MMOL/L (3.6-5.0)
[2021-11-27 05:27] LABS: CALCIUM 7.8 MG/DL (8.5-10.1)
[2021-11-27 05:32] LABS: CREATININE SERUM 0.88 MG/DL (0.60-1.30)
[2021-11-27] MEDS: inSUlin ASPART (NovoLOG) 1 UNIT/0.01 ML (CHARGE PER UNIT) SC SCH ×4 (06:23→22:29)
--- NOTE | 2021-11-27 07:35 | Diagnostic Imaging Report ---
PROCEDURE: CT head wo r/o stroke. TECHNIQUE: Multiple contiguous axial images were obtained through the brain without the use of intravenous contrast. Auto Exposure Controls were utilized during the CT exam to meet ALARA standards for radiation dose reduction. INDICATION: Altered mental status. EXAMINATION: CT brain 11/26/2021 COMPARISON: 11/16/2021. FINDINGS: There is chronic ischemic disease in a periventricular deep white matter distribution with a large area of encephalomalacia within the right frontal parietal lobes stable from previous imaging. Atrophy is noted slightly greater than expected for patient age. There is no acute hemorrhage or infarct. No mass, mass effect or midline shift. Ventricles prominent but stable from previous imaging. The calvarium is intact. Paranasal sinuses and mastoid air cells clear. IMPRESSION: 1. Chronic findings with no acute intracranial process. Findings agree with the preliminary report. Dictated by: Dictated on workstation # [id number]
--- NOTE | 2021-11-27 08:19 | Diagnostic Imaging Report ---
INDICATION: Acute mental status change. EXAMINATION: Chest 11/26/2021 COMPARISON: 12/19/2019. FINDINGS: 2 views of the chest Heart is prominent. Pulmonary vasculature is unremarkable. Lungs clear with no infiltrates or effusions. No pneumothorax. IMPRESSION: 1. Chronic findings with no superimposed acute cardiopulmonary process. 2. Not mentioned in the body report, there are bilateral rib fractures likely old, correlate clinically. Dictated by: Dictated on workstation # [id number]
--- NOTE | 2021-11-27 08:29 | Consultation-Cardiology ---
HPI-Cardiology Cardiology Consultation Date of Consultation 11/27/21 Date of Admission Time Seen by Provider: 08:24 Indication: Coronary artery disease HPI 71-year-old gentleman with extensive cardiac history of coronary artery disease and peripheral arterial disease, patient was brought to the emergency room via EMS, not sure why he is in the hospital. Review of his record that showed that he has been brought to the emergency room for generalized weakness confusion. Change in mental status. There is questionable history of seizure disorder but that he does not recall having seizures. He has longstanding history of alcohol abuse and methadone abuse. He denied any syncope. No chest pain. No palpitation. Home Medications & Allergies Allergies: Coded Allergies: acetaminophen (Verified Allergy, Intermediate, 10/26/17) Home Medication List Reviewed: Yes [id number] Hx Patient Social History Marital Status: Employed/Student: retired Smoking Status: Current Everyday Smoker Type Used: Cigarettes 2nd Hand Smoke Exposure: No Recent Hopitalizations: No Alcohol Use?: No Immunizations Up To Date Tetanus Booster (TDap): Unknown Date of Pneumonia Vaccine: Jul 16, 2017 Date of Influenza Vaccine: Feb 12, 2019 Past Medical History Discussed below Family Medical History Significant Family History: No Pertinent Family Hx Family History: Cardiovascular disease 19 FATHER 19 MOTHER Diabetes mellitus G8 BROTHER FH: cancer Thyroid disease 19 MOTHER (HYPOTHYROIDISM) Review of Systems-General Review of Systems Constitutional: see HPI, malaise, weakness EENTM: see HPI, no symptoms reported Respiratory: see HPI; No cough, No dyspnea on exertion, No hemoptysis, No orthopnea, No phlegm, No short of breath, No stridor, No wheezing, No other Cardiovascular: see HPI; No chest pain, No edema, No Hx of Intervention, No palpitations, No syncope, No vascular heart diseas, No other Gastrointestinal: no symptoms reported, see HPI Genitourinary: no symptoms reported, see HPI Musculoskeletal: no symptoms reported, see HPI Skin: no symptoms reported, see HPI Psychiatric/Neurological: See HPI Reviewed Test Results Reviewed Test Results Lab Laboratory Tests Test 11/26/21 22:38 11/26/21 22:42 11/26/21 22:45 11/26/21 22:52 Range/Units White Blood Count 18.3 H 4.3-11.0 10^3/uL Red Blood Count 2.96 L 4.30-5.52 10^6/uL Hemoglobin 9.1 L 13.3-17.7 g/dL Hematocrit 28 L 40-54 % Mean Corpuscular Volume 96 80-99 fL Mean Corpuscular Hemoglobin 31 25-34 pg Mean Corpuscular Hemoglobin Concent 32 32-36 g/dL Red Cell Distribution Width 15.3 H 10.0-14.5 % Platelet Count 465 H 130-400 10^3/uL Mean Platelet Volume 10.3 9.0-12.2 fL Immature Granulocyte % (Auto) 1 % Neutrophils (%) (Auto) 75 42-75 % Lymphocytes (%) (Auto) 15 12-44 % Monocytes (%) (Auto) 7 0-12 % Eosinophils (%) (Auto) 2 0-10 % Basophils (%) (Auto) 0 0-10 % Neutrophils # (Auto) 13.8 H 1.8-7.8 10^3/uL Lymphocytes # (Auto) 2.7 1.0-4.0 10^3/uL Monocytes # (Auto) 1.4 H 0.0-1.0 10^3/uL Eosinophils # (Auto) 0.3 0.0-0.3 10^3/uL Basophils # (Auto) 0.1 0.0-0.1 10^3/uL Immature Granulocyte # (Auto) 0.2 H 0.0-0.1 10^3/uL Neutrophils % (Manual) 71 % Lymphocytes % (Manual) 11 % Monocytes % (Manual) 9 % Eosinophils % (Manual) 1 % Band Neutrophils 8 % Polychromasia SLIGHT Anisocytosis SLIGHT Erythrocyte Sedimentation Rate 77 H 0-30 MM/HR Prothrombin Time 13.3 12.2-14.7 SEC INR Comment 1.0 0.8-1.4 Activated Partial Thromboplast Time 30 24-35 SEC Sodium Level 133 L 135-145 MMOL/L Potassium Level 4.6 3.6-5.0 MMOL/L Chloride Level 98 98-107 MMOL/L Carbon Dioxide Level 25 21-32 MMOL/L Anion Gap 10 5-14 MMOL/L Blood Urea Nitrogen 24 H 7-18 MG/DL Creatinine 1.07 0.60-1.30 MG/DL Estimat Glomerular Filtration Rate 75 BUN/Creatinine Ratio 22 Glucose Level 162 H 70-105 MG/DL Calcium Level 8.5 8.5-10.1 MG/DL Corrected Calcium 9.7 8.5-10.1 MG/DL Magnesium Level 1.9 1.6-2.4 MG/DL Total Bilirubin 0.4 0.1-1.0 MG/DL Aspartate Amino Transf (AST/SGOT) 48 H 5-34 U/L Alanine Aminotransferase (ALT/SGPT) 41 0-55 U/L Alkaline Phosphatase 189 H 40-136 U/L Ammonia 22 11-32 UMOL/L Total Creatine Kinase 37 30-200 U/L Creatine Kinase MB 0.8 <6.6 NG/ML Myoglobin 62.0 10.0-92.0 NG/ML Troponin I 0.144 H <0.028 NG/ML C-Reactive Protein High Sensitivity 10.55 H 0.00-0.50 MG/DL Total Protein 5.4 L 6.4-8.2 GM/DL Albumin 2.5 L 3.2-4.5 GM/DL Amylase Level 23 L 25-125 U/L Lipase 4 L 8-78 U/L Procalcitonin 0.35 H <0.10 NG/ML Free Thyroxine 0.69 L 0.70-1.48 NG/DL TSH [place] Testing 12.76 H 0.35-4.94 UIU/ML Acetaminophen Level < 10 L 10-30 UG/ML Valproic Acid (Depakene) Level 13.0 L 50.0-100.0 UG/ML Serum Alcohol < 10 <10 MG/DL Influenza Type A (RT-PCR) Not Detected Not Detecte Influenza Type B (RT-PCR) Not Detected Not Detecte SARS-CoV-2 RNA (RT-PCR) Not Detected Not Detecte Urine Color DARK YELLOW Urine Clarity SL CLOUDY Urine pH 6.0 5-9 Urine Specific Pearce 1.020 1.016-1.022 Urine Protein 2+ H NEGATIVE Urine Glucose (UA) NEGATIVE NEGATIVE Urine Ketones TRACE H NEGATIVE Urine Nitrite NEGATIVE NEGATIVE Urine Bilirubin NEGATIVE NEGATIVE Urine Urobilinogen 4.0 < = 1.0 MG/DL Urine Leukocyte Esterase 2+ H NEGATIVE Urine RBC (Auto) 3+ H NEGATIVE Urine RBC >100 H /HPF Urine WBC TNTC H /HPF Urine Squamous Epithelial Cells RARE /HPF Urine Crystals NONE /LPF Urine Bacteria LARGE H /HPF Urine Casts NONE /LPF Urine Mucus SMALL H /LPF Urine Culture Indicated CULTURE PENDING Urine Opiates Screen NEGATIVE NEGATIVE Urine Oxycodone Screen NEGATIVE NEGATIVE Urine Methadone Screen NEGATIVE NEGATIVE Urine Propoxyphene Screen NEGATIVE NEGATIVE Urine Barbiturates Screen NEGATIVE NEGATIVE Ur Tricyclic Antidepressants Screen NEGATIVE NEGATIVE Urine Phencyclidine Screen NEGATIVE NEGATIVE Urine Amphetamines Screen NEGATIVE NEGATIVE Urine Methamphetamines Screen NEGATIVE NEGATIVE Urine Benzodiazepines Screen NEGATIVE NEGATIVE Urine Cocaine Screen NEGATIVE NEGATIVE Urine Cannabinoids Screen NEGATIVE NEGATIVE Test 11/26/21 22:55 11/26/21 22:56 11/26/21 23:05 11/27/21 04:30 Range/Units Glucometer 161 H 70-110 MG/DL Bedside Blood Gas pH (LAB) 7.495 H 7.310-7.410 Bedside Blood Gas pCO2 (LAB) 37.9 L 41.0-51.0 mmHg Bedside Blood Gas pO2 (LAB) 83 80-105 mmHg Bedside Blood Gas HCO3 (LAB) 29.2 H 23.0-28.0 mmol/L POC Blood Gas Total CO2 Calc 30 H 24-29 mmol/L Bedside Bl Gas O2 Saturation (Calc) 97 95-98 % Bedside Arterial Blood Base Excess 6 H -2-3 mmol/L Lactic Acid Level 1.77 0.50-2.00 MMOL/L White Blood Count 17.5 H 4.3-11.0 10^3/uL Red Blood Count 2.39 L 4.30-5.52 10^6/uL Hemoglobin 7.5 L 13.3-17.7 g/dL Hematocrit 24 L 40-54 % Mean Corpuscular Volume 98 80-99 fL Mean Corpuscular Hemoglobin 31 25-34 pg Mean Corpuscular Hemoglobin Concent 32 32-36 g/dL Red Cell Distribution Width 15.3 H 10.0-14.5 % Platelet Count 389 130-400 10^3/uL Mean Platelet Volume 10.2 9.0-12.2 fL Immature Granulocyte % (Auto) 1 % Neutrophils (%) (Auto) 79 H 42-75 % Lymphocytes (%) (Auto) 12 12-44 % Monocytes (%) (Auto) 7 0-12 % Eosinophils (%) (Auto) 1 0-10 % Basophils (%) (Auto) 1 0-10 % Neutrophils # (Auto) 13.8 H 1.8-7.8 10^3/uL Lymphocytes # (Auto) 2.1 1.0-4.0 10^3/uL Monocytes # (Auto) 1.1 H 0.0-1.0 10^3/uL Eosinophils # (Auto) 0.2 0.0-0.3 10^3/uL Basophils # (Auto) 0.1 0.0-0.1 10^3/uL Immature Granulocyte # (Auto) 0.2 H 0.0-0.1 10^3/uL Sodium Level 132 L 135-145 MMOL/L Potassium Level 4.4 3.6-5.0 MMOL/L Chloride Level 102 98-107 MMOL/L Carbon Dioxide Level 22 21-32 MMOL/L Anion Gap 8 5-14 MMOL/L Blood Urea Nitrogen 22 H 7-18 MG/DL Creatinine 0.88 0.60-1.30 MG/DL Estimat Glomerular Filtration Rate 93 BUN/Creatinine Ratio 25 Glucose Level 165 H 70-105 MG/DL Calcium Level 7.8 L 8.5-10.1 MG/DL Troponin I 0.095 H <0.028 NG/ML Physical Exam Physical Exam Vital Signs Vital Signs - First Documented 11/26/21 22:34 Temp 36.7 Pulse 71 Resp 20 B/P (MAP) 94/57 (69) Pulse Ox 98 Capillary Refill : Less Than 3 Seconds Height, Weight, BMI Height: 5'10.00" Weight: 180lbs. 0.0oz. [id number]; 24.16 BMI Method:Stated General Appearance: WD/WN, Other (PT AWAKE, BUT LETHARGIC, BLANK STARE, MOUTH OPEN/MOUTH BREATHING. PT ABLE TO ANSWER HIS NAME AND KNOWS HE IS IN HOSPITAL AND STATES HE IS HERE BECAUSE "I'M SICK" BUT UNABLE TO ELABORATE; PT DOES VOICE THAT BED IS HARD. ) HEENT: PERRL/EOMI, Other (EDENTULOUS. ORAL MUCOSA DRY, BUT PT IS A MOUTH BREATHER) Neck: Normal Inspection Respiratory: Normal Breath Sounds, No Accessory Muscle Use, No Respiratory Distress Cardiovascular: Regular Rate, Rhythm, No JVD, Systolic Murmur Gastrointestinal: Non Tender, Soft Extremity: No Pedal Edema, Other (RIGHT HIP SURGICAL SITE APPEARS NORMAL-NO SIGNS OF INFECTION; MULTIPLE TOE AMPTUTATIONS) Neurologic/Psychiatric: Alert, No Motor/Sensory Deficits (MOVES ALL EXTREMETIES, BUT WITH GENERALIZED WEAKNESS. ), Other ( ABOVE. ) Skin: Normal Color, Warm/Dry A/P-Cardiology Admission Diagnosis Change in mental status Non-ST elevation myocardial infarction Coronary artery disease Peripheral arterial disease. Assessment/Plan Acute change in mental status, probably secondary to sepsis. Admitted to the ICU and started on antibiotics. Reporting improvement. Managed by primary care physician Mild elevation in troponin, no acute EKG changes or chest pain. Non-ST elevation myocardial infarction Patient is known to have extensive coronary artery disease, deemed inoperable after cardiac catheterization in 2018. Anemia, drop in H&H. Could be secondary to aggressive IV fluid. Could have underlying GI bleed Monitor H&H. Hyperthyroidism, history of hypothyroidism, elevated TSH. Managed by primary care physician Coronary artery disease, History of myocardial infarction in 2013 underwent cardiac catheterization showing severe complex triple-vessel disease, the LAD reported to have severe diffuse disease at the mid to distal portion between 70-90 percent, diagonal branches has mild disease, small artery, circumflex is totally occluded receiving collaterals from the left system, right coronary artery is dominant, has severe diffuse disease 60-80 percent, posterior lateral branches has significant disease. Cardiac catheterization done February 25, 2018 revealed severe multi-vessel coronary artery disease with total occlusion of the circumflex artery severe disease at the proximal LAD severe disease at the proximal and distal right coronary artery. Normal left ventricular end-diastolic pressure. Patient was referred to Dr. Rodriguez for further evaluation. Conservative management was recommended. Stress test done May 23, 2021 showing fixed defect involving the whole inferior wall inferolateral wall with small area of celeste-infarct ischemia. Prominent left ventricle with diffuse left ventricular hypokinesia more pronounced at the inferior wall, ejection fraction 40%. SSS 12,SDS 2, TID 1.03 Peripheral vascular disease- Peripheral angiogram on March 05, 2017 revealing severe peripheral arterial disease at multiple levels starting at the iliac level with occlusion of the SFA bilaterally, severe disease below the knee. Single vessel runoff of the left through the anterior tibial reconstructed by collaterals. He has been referred to Dr. Rodriguez further management. Underwent CTA of aorta with runoff on March 17, 2017 revealing atherosclerotic plaque and at least 50-75 percent stenosis of the bilateral external iliac arteries. Complete occlusion of the right SFA at its origin with collateral flow below the knee supply by profunda femoris branches. High grade stenosis at the origin of the left SFA with complete occlusion in its mid and distal aspect. Reconstruction within the left popliteal artery. Two-vessel runoff in both lower legs. Underwent intervention to left lower extremity with Dr. Rodriguez in June 2017. Peripheral angiogram done February 25, 2018 revealed hypertensive changes in the aortic arch and tortuous and calcified carotids. Patent stent in the right common femoral artery with occluded right SFA reconstructed at the popliteal artery by collaterals and 1 vessel runoff down to the foot. Patent stent in the left common femoral artery with severe disease and occluded left SFA. Patient was sent back to Dr. Rodriguez for further evaluation and underwent celeste pheral angiogram with toe amputation in March 2018. Had right leg life Stream 6 x 37 and 6 x 26 and stent 7 x 27 of the right common iliac artery. Has been followed with a [facility]. Having osteomyelitis of the second left toe. Underwent peripheral angiogram on May 05, 2019 revealing severe extensive peripheral arterial disease in both legs running with collaterals down to the foot, now identified artery for intervention. Seen with Dr. pulliam, had another amputation on his toes. Monitored by Dr. Rodriguez Status post left second toe amputation with Dr. Ulrich secondary to osteomyelitis, clean dry and intact dressing in place Hypertension, restart home medication monitor blood pressure Hyperlipidemia, maintained on simvastatin 10 mg daily, lipid profile done on May 08, 2021 showing total cholesterol 119, HDL 33, triglyceride 158, LDL 54. Continue to monitor History of alcoholism Diabetes mellitus, continue to monitor closely, managed by primary care physician educated on diabetic control. Tobaccoism, once again educated on smoking cessation History of CVA with left sided weakness, expressive aphasia, history of seizure disorder Carotid artery stenosis-bilateral mild nonobstructive disease per carotid duplex done February 2017. Continue to monitor. History of noncompliance with medications and appointments BR[facility]GER JUSTICE MD Nov 27, 2021 08:29
[2021-11-27] MEDS: ASPIRIN E.C. 81 MG (ECOTRIN) TAB PO SCH ×2 (10:47→22:29)
--- NOTE | 2021-11-27 12:44 | History & Physical ---
ERICK MUNOZ 11/27/21 1244: History of Present Illness History of Present Illness Reason for visit/HPI Patient is a 71 yo male presenting with possible sepsis. He was first seen yesterday in the ED for altered mental status, recently had right hip surgery. [facility] staff gave naloxone without improvement (urine drug screen was negative for opioids). Blood glucose levels exceeding 200 were reported by EMS. Patient has a history of seizures, dementia, and substance abuse (methadone, alcohol, tobacco 2ppd). Urine cultures were positive for bacteria (large), and preliminary results suggested e. coli infection. Date of Admission Nov 27, 2021 at 00:10 Date Seen by a Provider: Nov 27, 2021 Time Seen by a Provider: 08:20 I consulted on this patient on 11/27/21 12:39 Attending Physician Jarod Ahumada MD Admitting Physician Admitting Physician: Claribel Ramey MD Attending Physician: Claribel Ramey MD Consult Allergies and Home Medications Allergies Coded Allergies: acetaminophen (Verified Allergy, Intermediate, 10/26/17) Patient Home Medication List Home Medication List Reviewed: No Acetaminophen (Tylenol Extra Strength) 500 Mg Tablet, 1,000 MG PO Q8H PRN for PAIN-MILD (1-4), (Reported) Entered as Reported by: MURTAZA CRUM on 11/27/211455 Last Action: Reviewed Albuterol Sulfate (Albuterol Sulfate) 2.5 Mg/3 Ml Vial.neb, 2.5 MG NEB UD PRN for SHORTNESS OF BREATH, (Reported) Entered as Reported by: AMMY PALAFOX on 12/08/18 1448 Last Action: Reviewed Aspirin (Aspirin EC) 81 Mg Tablet.dr, 81 MG PO BID, (Reported) Entered as Reported by: MURTAZA CRUM on 11/27/21 145 Last Action: Reviewed Cholecalciferol (Vitamin D3) (Vitamin D3) 125 Mcg (5000 Unit) Capsule, 125 MCG PO DAILY, (Reported) Entered as Reported by: MURTAZA CRUM on 12/21/19 1616 Last Action: Reviewed Clonazepam (Clonazepam) 0.5 Mg Tablet, 0.5 MG PO 0800,1400, (Reported) Entered as Reported by: MURTAZA CRUM on 11/27/21 145 Last Action: Reviewed Clonidine HCl (Clonidine HCl) 0.2 Mg Tablet, 0.2 MG PO BID, (Reported) Entered as Reported by: SAIMA HAMPTON on 07/04/20 1115 Last Action: Reviewed Clopidogrel Bisulfate (Plavix) 75 Mg Tablet, 75 MG PO DAILY, (Reported) Entered as Reported by: AMMY PALAFOX on 03/05/17917 Last Action: Reviewed Divalproex Sodium (Divalproex Sodium) 125 Mg Cap.sprink, 125 MG PO TID, (Reported) Entered as Reported by: AMMY PALAFOX on 03/05/17917 Last Action: Reviewed Docusate Sodium (Colace) 100 Mg Capsule, 100 MG PO BID, (Reported) Entered as Reported by: MURTAZA CRUM on 12/21/191615 Last Action: Reviewed Donepezil HCl (Aricept) 10 Mg Tablet, 10 MG PO HS, (Reported) Entered as Reported by: AMMY PALAFOX on 03/05/17917 Last Action: Reviewed Dulaglutide (Trulicity) 0.75 Mg/0.5 Ml Pen.injctr, 0.75 MG SC SUN, (Reported) Entered as Reported by: AMMY PALAFOX on 12/08/18 1448 Last Action: Reviewed Enalapril Maleate (Enalapril Maleate) 2.5 Mg Tablet, 2.5 MG PO DAILY, (Reported) Entered as Reported by: AMMY PALAFOX on 03/05/17917 Last Action: Reviewed Escitalopram Oxalate (Lexapro) 5 Mg Tablet, 5 MG PO DAILY, (Reported) Entered as Reported by: PHILLY HENRY on 08/31/20 0907 Last Action: Reviewed Ferrous Sulfate (Ferrous Sulfate) 325 Mg Tablet, 325 MG PO Q48H, (Reported) Entered as Reported by: MURTAZA CRUM on 12/21/191615 Last Action: Reviewed Gabapentin (Neurontin) 300 Mg Capsule, 300 MG PO HS, (Reported) Entered as Reported by: MURTAZA CRUM on 12/21/191615 Last Action: Reviewed Glucagon HCl (Glucagon Emergency Kit) 1 Mg Vial, 1 MG IM UD PRN for HYPOGLYCEMIA, (Reported) Entered as Reported by: MURTAZA CRUM on 11/27/21 1456 Last Action: Reviewed Icosapent Ethyl (Vascepa) 1 Gm Capsule, 1 GM PO BID, (Reported) Entered as Reported by: AMMY PALAFOX on 12/08/18 1448 Last Action: Reviewed Insulin Aspart (Novolog) 100 Unit/Ml Susp, 7 UNIT SQ AC, (Reported) Entered as Reported by: SAIMA HAMPTON on 04/29/19 0816 Last Action: Reviewed Insulin Detemir (Levemir Flextouch) 100 Unit/Ml (3 Ml) Insuln.pen, 15 UNITS SC DAILY, (Reported) Entered as Reported by: MURTAZA CRUM on 12/21/19 1616 Last Action: Reviewed Lactobacillus Acidophilus/Pect (Acidophilus-Pectin Capsule) 1 Each Capsule, 1 CAP PO QID, (Reported) Entered as Reported by: AMMY PALAFOX on 12/08/18 144 Last Action: Reviewed Lansoprazole (Lansoprazole) 15 Mg Capsule.dr, 15 MG PO DAILY, (Reported) Entered as Reported by: MURTAZA CRUM on 11/27/21 145 Last Action: Reviewed Levetiracetam (Levetiracetam) 500 Mg Tablet, 500 MG PO BID, (Reported) Entered as Reported by: AMMY PALAFOX on 03/05/17917 Last Action: Reviewed Levothyroxine Sodium (Levothyroxine Sodium) 175 Mcg Tablet, 175 MCG PO DAILY, (Reported) Entered as Reported by: YUSEF CHRISTIAN on 10/26/17 1356 Last Action: Reviewed Lorazepam (Ativan) 1 Mg Tablet, 1 MG PO Q8H PRN for ANXIETY, (Reported) Entered as Reported by: MURTAZA CRUM on 11/27/21 145 Last Action: Reviewed Mag Hydrox/Al Hydrox/Simeth (Mylanta Suspension) 30 Ml Oral.susp, 30 ML PO Q4H PRN for INDIGESTION, (Reported) Entered as Reported by: AMMY PALAFOX on 03/05/17917 Last Action: Reviewed Magnesium Hydroxide (Milk of Magnesia) 400 Mg/5 Ml Oral.susp, 30 ML PO DAILY PRN for CONSTIPATION-1ST LINE, (Reported) Entered as Reported by: AMMY PALAFOX on 02/25/18 0933 Last Action: Reviewed Melatonin (Melatonin) 3 Mg Tablet, 3 MG PO HS, (Reported) Entered as Reported by: AMMY PALAFOX on 03/05/17917 Last Action: Reviewed Memantine HCl (Memantine HCl) 5 Mg Tablet, 5 MG PO HS, (Reported) Entered as Reported by: MURTAZA CRUM on 11/27/211455 Last Action: Reviewed Metformin HCl (Metformin HCl) 500 Mg Tablet, 500 MG PO BID, (Reported) Entered as Reported by: MURTAZA CRUM on 11/27/211455 Last Action: Reviewed Metoprolol Tartrate (Metoprolol Tartrate) 50 Mg Tablet, 50 MG PO BID WITH MEALS, (Reported) Entered as Reported by: SAIMA HAMPTON on 07/04/201114 Last Action: Reviewed Mirtazapine (Mirtazapine) 15 Mg Tablet, 15 MG PO HS, (Reported) Entered as Reported by: SAIMA HAMPTON on 07/04/201114 Last Action: Reviewed Multivitamin (Multivitamin) 1 Each Tablet, 1 EACH PO DAILY, (Reported) Entered as Reported by: MURTAZA CRUM on 11/27/211455 Last Action: Reviewed Nicotine (Nicotine Patch) 1 Each Patch.td24, 21 MG TD DAILY, (Reported) Entered as Reported by: PHILLY HENRY on 08/31/20906 Last Action: Reviewed Propylene Glycol (Systane Complete) 0.6 % Drops, 1 DROP OU BID, (Reported) Entered as Reported by: MURTAZA CRUM on 11/27/211455 Last Action: Reviewed Simvastatin (Simvastatin) 10 Mg Tablet, 10 MG PO HS, (Reported) Entered as Reported by: MURTAZA CRUM on 11/27/211455 Last Action: Reviewed Tamsulosin HCl (Flomax) 0.4 Mg Cap, 0.4 MG PO DAILY, (Reported) Entered as Reported by: AMMY PALAFOX on 12/08/18 144 Last Action: Reviewed Thiamine Mononitrate (Vitamin B-1) 100 Mg Tablet, 100 MG PO DAILY, (Reported) Entered as Reported by: MURTAZA CRUM on 11/27/211455 Last Action: Reviewed Tramadol HCl (Tramadol HCl) 50 Mg Tablet, 100 MG PO Q6H PRN for PAIN-MODERATE (5-7), (Reported) Entered as Reported by: PHILLY HENRY on 08/31/20906 Last Action: Reviewed Venlafaxine HCl (Venlafaxine HCl ER) 75 Mg Cap.er.24h, 75 MG PO DAILY, (Reported) Entered as Reported by: SAIMA HAMPTON on 07/04/20 111 Last Action: Reviewed Discontinued Medications Clonazepam (Klonopin) 1 Mg Tablet, 0.5 MG PO BID, (Reported) Discontinued Reason: Duplicate Order Entered as Reported by: SAIMA HAMPTON on 07/04/20 111 Last Action: Discontinued Lorazepam (Ativan) 1 Mg Tablet, 1 MG PO TID PRN for AGITATION Discontinued Reason: Duplicate Order Prescribed by: CUCO UMANA on 02/05/21 0614 Last Action: Discontinued Magnesium Oxide (Magnesium) 400 Mg Capsule, 400 MG PO DAILY, (Reported) Discontinued Reason: No Longer Taking Entered as Reported by: PHILLY HENRY on 08/31/20 0907 Last Action: Discontinued Metformin HCl (Metformin HCl) 1,000 Mg Tablet, 1,000 MG PO BID, (Reported) Discontinued Reason: Duplicate Order Entered as Reported by: MURTAZA CRUM on 12/21/19 1616 Last Action: Discontinued Past Cqkrvmm-Zumncg-Nmyqwv Hx Patient Social History Marrital Status: Employed/Student: retired Tobacco Use?: Yes Tobacco type used: Cigarettes (2ppd) Smoking Status: Current Everyday Smoker Use of E-Cig and/or Vaping dev: No Substance use?: No (history of methadone abuse) Substance type: Opiates/Opioids (methadone) Alcohol Use?: No (history of alcohol abuse) Immunizations Up To Date Date of Influenza Vaccine: Feb 12, 2019 First/Initial COVID19 Vaccinat: 04/27/20 Second COVID19 Vaccination Joaquin: 05/18/20 Tetanus Booster (TDap): Unknown PED Vaccines UTD: Yes Date of Pneumonia Vaccine: Jul 16, 2017 Seasonal Allergies Seasonal Allergies: No Current Status Primary Language: Irish Preferred Spoken Language: Irish Past Medical History Surgeries: Amputation (Amputation of first 4 toes on the right and the first 2 toes on the left.), Cardiac, Coronary Stent, Eye Surgery, Orthopedic, Tracheostomy COPD Angina, Coronary Artery Disease, High Cholesterol, Hypertension, Peripheral Vascular Dementia, Neuropathy, Seizure Disorder, Stroke Gastroesophageal Reflux, Pancreatitis, Esophageal Varices Amputee, Degenerate Disk Disease, Arthritis, Chronic Back Pain, Fractures Diabetes, Insulin dep, Hypothyroidsim Cataract Anxiety, Depression Blood Disorders: No Past Medical History 1. COPD 2. CAD s/p stent placement in the - previously followed by Dr. Buckley, not compliant with medications of follow up-severe multivessle -inoperable 3. Diabetes Mellitus Type 2 - insulin requiring; non-compliant w/ insulin 4. Diabetic Neuropathy 5. Chronic pancreatitis- history of hemorrhagic pancreatitis 6. Degenerative Disk Disease, Arthritis 7. Seizure history- secondary to previous CVA, methadone use and alcohol use 8. Carotid stenosis - moderate 9. Hx of TIA and CVA 10. Depression/Anxiety 11. Hypothyroidism 12. Diabetic Retinopathy 13. History of Pseudohyponatremia secondary severely elevated blood glucose 14. Tobaccoism 15. Esophageal Varices with portal hypertension and hx of enlarged spleen 16. ASOD- bilateral severe, evaluated at [place] 17. H/O respiratory failure with tracheostomy and reversal 18. History of Gangrene sp resection of toe 09-11-13 19. Illicit drug use- Methadone use, Alcohol use 20. Chronic fracture left femur pathologic appearing 21. Stomach thickening quesitonable for malignancy- GI was recommended outpatient PSH: 1. R Knee surgery x4 2. Back surgery - lumbar discectomy w/ vertebral fusion 3. Coronary Stent 4. cholecystectomy 5. Stent placement in pancreas with pseudocyst removal 6. Tracheostomy with removal 7. RT. 4th toe ray amputation- 09-11-13 Abdullahi Buckley 8. Cardiac Cath 12-26 Christin with inoperable multivessle coronary artery disease. Family Medical History Cardiovascular disease 19 FATHER 19 MOTHER Diabetes mellitus G8 BROTHER FH: cancer Thyroid disease 19 MOTHER (HYPOTHYROIDISM) No Pertinent Family Hx SOCIAL HISTORY: -ETOH--HX OF ABUSE -DRUGS-HX OF METHADONE USE/ABUSE -SMOKES 2 PPD PAST SURGICAL HISTORY: -RIGHT CATARACT SURGERY 08/2020 -LEFT CATARACT SURGERY 06/2020 -RIGHT HIP FRACTURE 08/09/19--TRANSFERRED TO [place] -RIGHT GREAT TOE AND 3RD TOE AMPUTATION DUE TO OPEN FRACTURE OF 3RD TOE AND OSTEOMYELITIS 12/[address] ALICEA -AMPUTATIONS OF RIGHT 2ND AND 4TH TOES -AMPUTATIONS OF LEFT GREAT AND SECOND TOES -RIGHT KNEE SURGERY X 4 -BACK SURGERIES--DISCECTOMY/FUSIONS -CARDIAC CATH WITH STENT -CHOLECYSTECTOMY -STENT PLACEMENT IN PANCREAS WITH REMOVAL OF PSEUDOCYST -TRACHEOSTOMY WITH LATER REMOVAL -RIGHT 4TH TOE RAY AMPUTATION 09/11/13 DR. ABDULLAHI BUCKLEY -CARDIAC CATH 12/[address] BEARDEN--MULTI-VESSEL DISEASE/INOPERABLE -11/16/21--FRACTURE OF PROSTHETIC RIGHT HIP/TRANSFERRED TO [facility] AND HAD SURGICAL REPAIR AT THAT TIME. LONG HISTORY OF EXTREME NON-COMPLIANCE IN ALL ASPECTS OF CARE Review of Systems Constitutional: other (General fatigue) Respiratory: no symptoms reported Cardiovascular: no symptoms reported Gastrointestinal: no symptoms reported Physical Exam Vital Signs Vital Signs - First Documented 11/26/21 22:34 Temp 36.7 Pulse 71 Resp 20 B/P (MAP) 94/57 (69) Pulse Ox 98 Capillary Refill : Less Than 3 Seconds HR: 75; RR: 24; Radial Pulse: 2+ bilaterally Height, Weight, BMI Height: 5'10.00" Weight: 180lbs. 0.0oz. 81.006058oi; 24.16 BMI Method:Stated General Appearance: No Apparent Distress Respiratory: Chest Non Tender, Wheezing (Slight wheeze in upper right lobe.) Cardiovascular: Regular Rate, Rhythm, No Murmur Gastrointestinal: Normal Bowel Sounds, Non Tender Extremity: Swelling, Other (Both feet show signs of chronic venous stasis changes.) Neurologic/Psychiatric: Disoriented (Patient didn't know where he was or what day it was but could state his full name.) Skin: Ecchymosis (Both feet showed signs of chronic venous stasis with darkening and swelling of the tissue.) Assessment/Plan Assessment and Plan Sepsis (secondary due to UTI) - continue cefepime Altered mental status (secondary to sepsis) - continue cefepime NSTEMI - deemed inoperable in 2018 post cardiac catheterization CAD - Statin therapy, paige inhibitor CHF - Beta jozfe, furosemide DM - Insulin therapy and close glucose monitoring. Admission Diagnosis Sepsis (secondary to UTI) Admission Status: Observation Clinical Quality Measures Admission Status Admission Dx Sepsis Admission Status: Inpatient Order (span 2 midnights) Reason for Inpatient Admission: Sepsis DVT/VTE Risk/Contraindication: VTE Addressed: Yes Sepsis: Within 3hrs of presentation: Admin fluids, Admin ABX, Blood cultures prior to ABX's, Lactate level CLARIBEL RAMEY MD 11/27/21 1553: Allergies and Home Medications Allergies Coded Allergies: acetaminophen (Verified Allergy, Intermediate, 10/26/17) Patient Home Medication List Acetaminophen (Tylenol Extra Strength) 500 Mg Tablet, 1,000 MG PO Q8H PRN for PAIN-MILD (1-4), (Reported) Entered as Reported by: MURTAZA CRUM on 11/27/211455 Last Action: Reviewed Albuterol Sulfate (Albuterol Sulfate) 2.5 Mg/3 Ml Vial.neb, 2.5 MG NEB UD PRN for SHORTNESS OF BREATH, (Reported) Entered as Reported by: AMMY PALAFOX on 12/08/18 1448 Last Action: Reviewed Aspirin (Aspirin EC) 81 Mg Tablet.dr, 81 MG PO BID, (Reported) Entered as Reported by: MURTAZA CRUM on 11/27/211455 Last Action: Reviewed Cholecalciferol (Vitamin D3) (Vitamin D3) 125 Mcg (5000 Unit) Capsule, 125 MCG PO DAILY, (Reported) Entered as Reported by: MURTAZA CRUM on 12/21/191615 Last Action: Reviewed Clonazepam (Clonazepam) 0.5 Mg Tablet, 0.5 MG PO 0800,1400, (Reported) Entered as Reported by: MURTAZA CRUM on 11/27/211455 Last Action: Reviewed Clonidine HCl (Clonidine HCl) 0.2 Mg Tablet, 0.2 MG PO BID, (Reported) Entered as Reported by: SAIMA HAMPTON on 07/04/20 1115 Last Action: Reviewed Clopidogrel Bisulfate (Plavix) 75 Mg Tablet, 75 MG PO DAILY, (Reported) Entered as Reported by: AMMY PALAFOX on 03/05/17917 Last Action: Reviewed Divalproex Sodium (Divalproex Sodium) 125 Mg Cap.sprink, 125 MG PO TID, (Reported) Entered as Reported by: AMMY PALAFOX on 03/05/17917 Last Action: Reviewed Docusate Sodium (Colace) 100 Mg Capsule, 100 MG PO BID, (Reported) Entered as Reported by: MURTAZA CRUM on 12/21/191615 Last Action: Reviewed Donepezil HCl (Aricept) 10 Mg Tablet, 10 MG PO HS, (Reported) Entered as Reported by: AMMY PALAFOX on 03/05/17917 Last Action: Reviewed Dulaglutide (Trulicity) 0.75 Mg/0.5 Ml Pen.injctr, 0.75 MG SC SUN, (Reported) Entered as Reported by: AMMY PALAFOX on 12/08/181447 Last Action: Reviewed Enalapril Maleate (Enalapril Maleate) 2.5 Mg Tablet, 2.5 MG PO DAILY, (Reported) Entered as Reported by: AMMY PALAFOX on 03/05/17 0918 Last Action: Reviewed Escitalopram Oxalate (Lexapro) 5 Mg Tablet, 5 MG PO DAILY, (Reported) Entered as Reported by: PHILLY HENRY on 08/31/20 0907 Last Action: Reviewed Ferrous Sulfate (Ferrous Sulfate) 325 Mg Tablet, 325 MG PO Q48H, (Reported) Entered as Reported by: MURTAZA CRUM on 12/21/191615 Last Action: Reviewed Gabapentin (Neurontin) 300 Mg Capsule, 300 MG PO HS, (Reported) Entered as Reported by: MURTAZA CRUM on 12/21/191615 Last Action: Reviewed Glucagon HCl (Glucagon Emergency Kit) 1 Mg Vial, 1 MG IM UD PRN for HYPOGLYCEMIA, (Reported) Entered as Reported by: MURTAZA CRUM on 11/27/211455 Last Action: Reviewed Icosapent Ethyl (Vascepa) 1 Gm Capsule, 1 GM PO BID, (Reported) Entered as Reported by: AMMY PALAFOX on 12/08/181447 Last Action: Reviewed Insulin Aspart (Novolog) 100 Unit/Ml Susp, 7 UNIT SQ AC, (Reported) Entered as Reported by: SAIMA HAMPTON on 04/29/19 0816 Last Action: Reviewed Insulin Detemir (Levemir Flextouch) 100 Unit/Ml (3 Ml) Insuln.pen, 15 UNITS SC DAILY, (Reported) Entered as Reported by: MURTAZA CRUM on 12/21/191615 Last Action: Reviewed Lactobacillus Acidophilus/Pect (Acidophilus-Pectin Capsule) 1 Each Capsule, 1 CAP PO QID, (Reported) Entered as Reported by: AMMY PALAFOX on 12/08/181447 Last Action: Reviewed Lansoprazole (Lansoprazole) 15 Mg Capsule.dr, 15 MG PO DAILY, (Reported) Entered as Reported by: MURTAZA CRUM on 11/27/211455 Last Action: Reviewed Levetiracetam (Levetiracetam) 500 Mg Tablet, 500 MG PO BID, (Reported) Entered as Reported by: AMMY PALAFOX on 03/05/17917 Last Action: Reviewed Levothyroxine Sodium (Levothyroxine Sodium) 175 Mcg Tablet, 175 MCG PO DAILY, (Reported) Entered as Reported by: YUSEF CHRISTIAN on 10/26/17 1356 Last Action: Reviewed Lorazepam (Ativan) 1 Mg Tablet, 1 MG PO Q8H PRN for ANXIETY, (Reported) Entered as Reported by: MURTAZA CRUM on 11/27/211455 Last Action: Reviewed Mag Hydrox/Al Hydrox/Simeth (Mylanta Suspension) 30 Ml Oral.susp, 30 ML PO Q4H PRN for INDIGESTION, (Reported) Entered as Reported by: AMMY PALAFOX on 03/05/17917 Last Action: Reviewed Magnesium Hydroxide (Milk of Magnesia) 400 Mg/5 Ml Oral.susp, 30 ML PO DAILY PRN for CONSTIPATION-1ST LINE, (Reported) Entered as Reported by: AMMY PALAFOX on 02/25/18 0933 Last Action: Reviewed Melatonin (Melatonin) 3 Mg Tablet, 3 MG PO HS, (Reported) Entered as Reported by: AMMY PALAFOX on 03/05/17917 Last Action: Reviewed Memantine HCl (Memantine HCl) 5 Mg Tablet, 5 MG PO HS, (Reported) Entered as Reported by: MURTAZA CRUM on 11/27/211455 Last Action: Reviewed Metformin HCl (Metformin HCl) 500 Mg Tablet, 500 MG PO BID, (Reported) Entered as Reported by: MURTAZA CRUM on 11/27/211455 Last Action: Reviewed Metoprolol Tartrate (Metoprolol Tartrate) 50 Mg Tablet, 50 MG PO BID WITH MEALS, (Reported) Entered as Reported by: SAIMA HAMPTON on 07/04/201114 Last Action: Reviewed Mirtazapine (Mirtazapine) 15 Mg Tablet, 15 MG PO HS, (Reported) Entered as Reported by: SAIMA HAMPTON on 07/04/201114 Last Action: Reviewed Multivitamin (Multivitamin) 1 Each Tablet, 1 EACH PO DAILY, (Reported) Entered as Reported by: MURTAZA CRUM on 11/27/211455 Last Action: Reviewed Nicotine (Nicotine Patch) 1 Each Patch.td24, 21 MG TD DAILY, (Reported) Entered as Reported by: PHILLY HENRY on 08/31/20906 Last Action: Reviewed Propylene Glycol (Systane Complete) 0.6 % Drops, 1 DROP OU BID, (Reported) Entered as Reported by: MURTAZA CRUM on 11/27/211455 Last Action: Reviewed Simvastatin (Simvastatin) 10 Mg Tablet, 10 MG PO HS, (Reported) Entered as Reported by: MURTAZA CRUM on 11/27/211455 Last Action: Reviewed Tamsulosin HCl (Flomax) 0.4 Mg Cap, 0.4 MG PO DAILY, (Reported) Entered as Reported by: AMMY PALAFOX on 12/08/18 144 Last Action: Reviewed Thiamine Mononitrate (Vitamin B-1) 100 Mg Tablet, 100 MG PO DAILY, (Reported) Entered as Reported by: MURTAZA CRUM on 11/27/211455 Last Action: Reviewed Tramadol HCl (Tramadol HCl) 50 Mg Tablet, 100 MG PO Q6H PRN for PAIN-MODERATE (5-7), (Reported) Entered as Reported by: PHILLY HENRY on 08/31/20906 Last Action: Reviewed Venlafaxine HCl (Venlafaxine HCl ER) 75 Mg Cap.er.24h, 75 MG PO DAILY, (Reported) Entered as Reported by: SAIMA HAMPTON on 07/04/201114 Last Action: Reviewed Discontinued Medications Clonazepam (Klonopin) 1 Mg Tablet, 0.5 MG PO BID, (Reported) Discontinued Reason: Duplicate Order Entered as Reported by: SAIMA HAMPTON on 07/04/201114 Last Action: Discontinued Lorazepam (Ativan) 1 Mg Tablet, 1 MG PO TID PRN for AGITATION Discontinued Reason: Duplicate Order Prescribed by: CUCO UMANA on 02/05/21 0614 Last Action: Discontinued Magnesium Oxide (Magnesium) 400 Mg Capsule, 400 MG PO DAILY, (Reported) Discontinued Reason: No Longer Taking Entered as Reported by: PHILLY HENRY on 08/31/20906 Last Action: Discontinued Metformin HCl (Metformin HCl) 1,000 Mg Tablet, 1,000 MG PO BID, (Reported) Discontinued Reason: Duplicate Order Entered as Reported by: MURTAZA CRUM on 12/21/19 1616 Last Action: Discontinued Past Myolqrj-Hgmicq-Evskcs Hx Family Medical History Cardiovascular disease 19 FATHER 19 MOTHER Diabetes mellitus G8 BROTHER FH: cancer Thyroid disease 19 MOTHER (HYPOTHYROIDISM) Supervisory-Addendum Brief Verification & Attestation Participated in pt care: history, MDM, physical Personally performed: exam, history, MDM, supervision of care Care discussed with: Medical Student Procedures: n/a I personally saw and examined patient and my findings confirm that documented by the medical student. I directed the plan of care as documented. Appreciate Cardiology recommendations. ERICK MUNOZ Nov 27, 2021 12:44 CLARIBEL RAMEY MD Nov 27, 2021 15:53
[2021-11-27] MEDS ORDERED: PROP1.5D OU (14:56)
[2021-11-27] MEDS ORDERED: CLON0.5T4 PO (14:56)
[2021-11-27] MEDS ORDERED: LORA-405 PO (14:56)
[2021-11-27] MEDS ORDERED: ASPI-1238 PO (14:56)
[2021-11-27] MEDS ORDERED: ACET-2267 PO (14:56)
[2021-11-27] MEDS ORDERED: GLUC1VIA15 IM (14:56)
[2021-11-27] MEDS ORDERED: LANS15CA5 PO (14:56)
[2021-11-27] MEDS ORDERED: MULT-1136 PO (14:56)
[2021-11-27] MEDS ORDERED: SIMV10TA26 PO (14:56)
[2021-11-27] MEDS ORDERED: THIA100T68 PO (14:56)
[2021-11-27] MEDS ORDERED: METF-397 PO (14:56)
[2021-11-27] MEDS ORDERED: MEMA5TAB43 PO (14:56)
[2021-11-27] MEDS ORDERED: ACETAMINOPHEN 500 MG TAB (TYLENOL) PO PRN (19:45)
[2021-11-27] MEDS ORDERED: LORazepam 1 MG (ATIVAN) TAB PO PRN (19:45)
[2021-11-27] MEDS ORDERED: RT-ALBUTEROL SULF 2.5 MG/3 ML PRE-MIX VIAL INH PRN (19:45)
[2021-11-27] MEDS ORDERED: NON-FORMULARY MEDICATION 1 EA EA (Mirtazapine 15 MG) PO SCH (21:00)
[2021-11-27] MEDS ORDERED: NON-FORMULARY MEDICATION 1 EA EA (Simvastatin 10 MG) PO SCH (21:00)
[2021-11-27] MEDS ORDERED: ICOSAPENT ETHYL 1 GM PO SCH (21:00)
[2021-11-27] MEDS ORDERED: PROPYLENE GLYCOL OU SCH (21:00)
[2021-11-27] MEDS: FERROUS SULF 325 MG (IRON) TAB PO SCH (22:28)
[2021-11-27] MEDS: MEMANTINE 5 MG (NAMENDA) TABLET PO SCH (22:28)
[2021-11-27] MEDS: DOCUSATE SODIUM 100 MG (COLACE) CAP PO SCH (22:28)
[2021-11-27] MEDS: MELATONIN 3 MG TABLET PO SCH (22:28)
[2021-11-27] MEDS: LACTOBACILLUS ACIDOPHILUS (PROBIOTIC) CAPSULE PO SCH (22:28)
[2021-11-27] MEDS: GABAPENTIN 300 MG (NEURONTIN) CAP PO SCH (22:28)
[2021-11-27] MEDS: cloNIDine 0.2 MG (CATAPRES) TAB PO SCH (22:28)
[2021-11-27] MEDS: DIVALPROX SPRINKLE 125 MG (DEPAKOTE) CAP PO SCH (22:28)
[2021-11-27] MEDS: DONEPEZIL 10 MG (ARICEPT) TAB PO SCH (22:28)
[2021-11-28] VITALS (7 sets, daily range): BP systolic 122–159; BP diastolic 66–83
[2021-11-28] MEDS: MULTIVIT W/MINERALS TAB (THERAGRAN M) PO SCH (05:38)
[2021-11-28] MEDS: THIAMINE 100 MG (VITAMIN B-1) TAB PO SCH (05:38)
[2021-11-28] MEDS: LEVOTHYROXINE 100 MCG (LEVOTHROID) TAB PO SCH (05:38)
[2021-11-28] MEDS: NS IV 1000 ML 1,000 ML IV SCH ×2 (05:39→09:44)
[2021-11-28] MEDS: LEVOTHYROXINE 75 MCG (LEVOTHROID) TABLET PO SCH (05:39)
[2021-11-28] MEDS: CEFEPIME 1,000 MG/NS 50 ML IVPB IV SCH ×6 (05:39→16:50)
[2021-11-28] MEDS: CATHETER FLUSH 10 ML SYR IVP SCH ×3 (05:39→20:49)
[2021-11-28] MEDS: inSUlin ASPART (NovoLOG) 1 UNIT/0.01 ML (CHARGE PER UNIT) SC SCH ×4 (06:59→21:02)
[2021-11-28] MEDS: CLOPIDOGREL 75 MG (PLAVIX) TABLET PO SCH (08:37)
[2021-11-28] MEDS: cloNIDine 0.2 MG (CATAPRES) TAB PO SCH ×2 (08:37→20:47)
[2021-11-28] MEDS: meTOprolol TARTRATE 50 MG (LOPRESSOR) TAB PO SCH ×2 (08:37→16:50)
[2021-11-28] MEDS: TAMSULOSIN 0.4 MG (FLOMAX) CAP PO SCH (08:37)
[2021-11-28] MEDS: ASPIRIN E.C. 81 MG (ECOTRIN) TAB PO SCH ×3 (08:37→20:47)
[2021-11-28] MEDS: NICOTINE 21 MG (NICODERM) PATCH TD SCH (08:37)
[2021-11-28] MEDS: ARTIFICAL TEARS 0.4 ML UNIT DOSE (REFRESH PLUS) OU SCH ×2 (08:37→20:47)
[2021-11-28] MEDS: DIVALPROX SPRINKLE 125 MG (DEPAKOTE) CAP PO SCH ×3 (08:37→20:46)
[2021-11-28] MEDS: VENlafaxine XR 75 MG (EFFEXOR XR) CAP PO SCH (08:37)
[2021-11-28] MEDS: DOCUSATE SODIUM 100 MG (COLACE) CAP PO SCH ×2 (08:38→19:48)
[2021-11-28] MEDS: LACTOBACILLUS ACIDOPHILUS (PROBIOTIC) CAPSULE PO SCH ×4 (08:38→20:46)
[2021-11-28] MEDS: VITAMIN D3 125 MCG (5,000 UNITS) CAPSULE PO SCH (08:38)
[2021-11-28] MEDS: PANTOPRAZOLE 20 MG TABLET (PROTONIX) PO SCH (08:38)
[2021-11-28] MEDS: clonazePAM 0.5 MG (KlonoPIN) TAB PO SCH ×2 (08:52→14:13)
[2021-11-28] MEDS ORDERED: ENALAPRIL 2.5 MG (VASOTEC) TAB PO SCH (09:00)
[2021-11-28] MEDS ORDERED: NON-FORMULARY MEDICATION 1 EA EA (Levothyroxine Sodium 175 MCG) PO SCH (09:00)
--- NOTE | 2021-11-28 12:04 | Cardiology Progress Note ---
Subjective Date Seen by Provider: Nov 28, 2021 Time Seen by Provider: 10:40 Subjective/Events-last exam Patient sitting up in bed, complains of fatigue. Appears slightly confused this morning. Focused Exam Lactate Level 11/26/21 23:05: Lactic Acid Level 1.77 Time of Focused Exam: 23:50 Objective-Cardiology Exam Last Set of Vital Signs Vital Signs 11/27/21 11/28/21 11/28/21 07:00 12:00 12:40 Temp 36.1 Pulse 71 Resp 24 B/P (MAP) 123/66 (85) Pulse Ox 94 O2 Delivery Room Air O2 Flow Rate 2.00 I&O Intake and Output 11/28/21 00:00 Intake Total 4550 ml Output Total 2050 ml Balance 2500 ml Intake Oral 450 ml IV Total 4100 ml Output Urine Total 2050 ml # Bowel Movements 8 General: Alert, Cooperative, No Acute Distress HEENT: Atraumatic Lungs: Clear to Auscultation, Normal Air Movement Heart: Regular Rate Abdomen: Soft Extremities: No Edema Skin: No Rashes, No Significant Lesion A/P-Cardiology Admission Diagnosis Change in mental status Non-ST elevation myocardial infarction Coronary artery disease Peripheral arterial disease. Assessment/Plan Acute change in mental status, probably secondary to sepsis. Admitted to the ICU and started on antibiotics. Transferred to 4th floor. Managed by primary care physician Mild elevation in troponin, no acute EKG changes or chest pain. Non-ST elevation myocardial infarction Patient is known to have extensive coronary artery disease, deemed inoperable after cardiac catheterization in 2018. Anemia, drop in H&H. Could be secondary to aggressive IV fluid. Could have underlying GI bleed Monitor H&H. Hyperthyroidism, history of hypothyroidism, elevated TSH. Managed by primary care physician Coronary artery disease, History of myocardial infarction in 2013 underwent cardiac catheterization showing severe complex triple-vessel disease, the LAD reported to have severe diffuse disease at the mid to distal portion between 70-90 percent, diagonal branches has mild disease, small artery, circumflex is totally occluded receiving collaterals from the left system, right coronary artery is dominant, has severe diffuse disease 60-80 percent, posterior lateral branches has significant disease. Cardiac catheterization done February 25, 2018 revealed severe multi-vessel coronary artery disease with total occlusion of the circumflex artery severe dis ease at the proximal LAD severe disease at the proximal and distal right coronary artery. Normal left ventricular end-diastolic pressure. Patient was referred to Dr. Rodriguez for further evaluation. Conservative management was recommended. Stress test done May 23, 2021 showing fixed defect involving the whole inferior wall inferolateral wall with small area of celeste-infarct ischemia. Prominent left ventricle with diffuse left ventricular hypokinesia more pronounced at the inferior wall, ejection fraction 40%. SSS 12,SDS 2, TID 1.03 Peripheral vascular disease- Peripheral angiogram on March 05, 2017 revealing severe peripheral arterial disease at multiple levels starting at the iliac level with occlusion of the SFA bilaterally, severe disease below the knee. Single vessel runoff of the left through the anterior tibial reconstructed by collaterals. He has been referred to Dr. Rodriguez further management. Underwent CTA of aorta with runoff on March 17, 2017 revealing atherosclerotic plaque and at least 50-75 percent stenosis of the bilateral external iliac arteries. Complete occlusion of the right SFA at its origin with collateral flow below the knee supply by profunda femoris branches. High grade stenosis at the origin of the left SFA with complete occlusion in its mid and distal aspect. Reconstruction within the left popliteal artery. Two-vessel runoff in both lower legs. Underwent intervention to left lower extremity with Dr. Rodriguez in June 2017. Peripheral angiogram done February 25, 2018 revealed hypertensive changes in the aortic arch and tortuous and calcified carotids. Patent stent in the right common femoral artery with occluded right SFA reconstructed at the popliteal artery by collaterals and 1 vessel runoff down to the foot. Patent stent in the left common femoral artery with severe disease and occluded left SFA. Patient was sent back to Dr. Rodriguez for further evaluation and underwent peripheral angiogram with toe amputation in March 2018. Had right leg life Stream 6 x 37 and 6 x 26 and stent 7 x 27 of the right common iliac artery. Has been followed with a [facility]. Having osteomyelitis of the second left toe. Underwent peripheral angiogram on May 05, 2019 revealing severe extensive peripheral arterial disease in both legs running with collaterals down to the foot, now identified artery for intervention. Seen with Dr. Rodriguez, had another amputation on his toes. Monitored by Dr. Rodriguez Status post left second toe amputation with Dr. Ulrich secondary to osteomyelitis, clean dry and intact dressing in place Hypertension, restart home medication monitor blood pressure Hyperlipidemia, maintained on simvastatin 10 mg daily, lipid profile done on May 08, 2021 showing total cholesterol 119, HDL 33, triglyceride 158, LDL 54. Continue to monitor History of alcoholism Diabetes mellitus, continue to monitor closely, managed by primary care physician educated on diabetic control. Tobaccoism, once again educated on smoking cessation History of CVA with left sided weakness, expressive aphasia, history of seizure disorder Carotid artery stenosis-bilateral mild nonobstructive disease per carotid duplex done February 2017. Continue to monitor. History of noncompliance with medications and appointments Supervisory-Addendum Brief Supervisory Addendum Participated in pt care: history, MDM, physical Personally performed: exam, history, MDM Care discussed with: JENNIFER Results interpretation: Verified all documentation Notes: Patient was seen and evaluated with Carmen, examination performed, management plan was discussed, agree with the current scribed note, I made few changes to the note using Italic font CARMEN FULLER Nov 28, 2021 12:04 BRIDGER JUSTICE MD Nov 28, 2021 13:36
[2021-11-28 14:12] LABS: HEMATOCRIT 22 % (40-54); HEMOGLOBIN 7.5 g/dL (13.3-17.7); MEAN CORPUSCULAR HEMOGLOBIN 31 pg (25-34); MEAN CORPUSCULAR HGB CONC 34 g/dL (32-36); MEAN CORPUSCULAR VOLUME 93 fL (80-99); MEAN PLATELET VOLUME 10.2 fL (9.0-12.2); PLATELET COUNT 366 10^3/uL (130-400); WHITE BLOOD COUNT 13.8 10^3/uL (4.3-11.0)
[2021-11-28 14:30] LABS: ALBUMIN 1.9 GM/DL (3.2-4.5); POTASSIUM 5.1 MMOL/L (3.6-5.0)
[2021-11-28 14:31] LABS: CALCIUM 7.5 MG/DL (8.5-10.1)
[2021-11-28 14:33] LABS: TOTAL PROTEIN 4.4 GM/DL (6.4-8.2)
[2021-11-28 14:34] LABS: BILIRUBIN,TOTAL 0.4 MG/DL (0.1-1.0)
[2021-11-28 14:36] LABS: CREATININE SERUM 0.79 MG/DL (0.60-1.30)
--- NOTE | 2021-11-28 16:50 | Physician Query Clarification ---
Physician Query-General Query to Physician: The medical record reflects the following clinical evidence: Clinical Indicators: "Altered mental status (secondary to sepsis" per physician, GCS 13 on admission has improved some to 14, CT head "Chronic findings with no acute intracranial process". Risk Factor(s): Sepsis, UTI Dementia, Hx of alcohol and drug abuse, Treatment: IV cefepime, IV fluids, Neuro monitoring, CT Head 1. Metabolic encephalopathy, in the setting of uti/sepsis, present on admission 2. Other explanation of clinical findings 3. She is going unable to determine (no explanation for clinical findings) Please clarify and document your clinical opinion in the progress notes and discharge summary including the definitive and/or presumptive diagnosis, (suspected or probable), related to the above clinical findings. Please include clinical findings supporting your diagnosis. Venus Kline RN, MSN Clinical After School Caregiver [phone] [email or web address] PHYSICIAN RESPONSE: Based on the clinical findings in the record, please respond to the query above on this document as an addendum. Physician Response: Physician Response 1 If you have questions please contact: Dural Mechanic: Ext: Thank you for your time and cooperation. Clinical After School Caregiver/Dural Mechanic This is a permanent part of the medical record VENUS KLINE Nov 28, 2021 16:50 CLARIBEL RAMEY MD Nov 29, 2021 21:50
--- NOTE | 2021-11-28 17:52 | Progress Note ---
ERICK MUNOZ 11/28/21 0227: Subjective Subjective/Events-last exam Patient is a 71 yo male admitted to the hospital for sepsis. Patient states that he feels worse than he did yesterday. He indicates abdominal pain and general full-body soreness. He also indicates that he feels fatigued and has been having some trouble sleeping. Review of Systems General: Fatigue (Generally tired and having trouble sleeping.), Malaise (Feels ill, general full-body soreness.) HEENT: No Head Aches, No Dysphasia, No Sore Throat Pulmonary: No Dyspnea, No Cough Cardiovascular: No: Chest Pain, Lt Headedness Gastrointestinal: Abdominal Pain; No: Nausea, Vomiting, Diarrhea, Constipation Musculoskeletal: other (General soreness throughout the body) Neurological: Confusion Focused Exam Lactate Level 11/26/21 23:05: Lactic Acid Level 1.77 Time of Focused Exam: 23:50 Objective Exam Last Set of Vital Signs Vital Signs Date Time Temp Pulse Resp B/P (MAP) Pulse Ox O2 Delivery O2 Flow Rate FiO2 11/28/21 16:02 36.7 76 22 133/74 (93) 95 Room Air 11/27/21 09:00 Capillary Refill : Less Than 3 Seconds I&O Intake and Output 11/28/21 00:00 Intake Total 4550 ml Output Total 2050 ml Balance 2500 ml Intake Oral 450 ml IV Total 4100 ml Output Urine Total 2050 ml # Bowel Movements 8 General: Alert, Cooperative, No Acute Distress, Other (Only oriented to self.) Neck: No JVD Lungs: Clear to Auscultation Heart: Regular Rate, No Murmurs Abdomen: Normal Bowel Sounds, No Tenderness (No tenderness to palpation on abdominal exam) Extremities: Normal Pulses (Radial pulses 2+ bilaterally.), Other (Amputated first 4 toes on right foot, amputated first 2 toes on left foot) Skin: No Rashes, No Significant Lesion Psych/Mental Status: Other (Altered mental status, oriented to self only but communication is much better today than yesterday.) Results/Procedures Lab Laboratory Tests 11/27/21 20:35: Glucometer 199H 11/28/21 11:49: Glucometer 262H 11/28/21 14:05: White Blood Count 13.8H, Red Blood Count 2.39L, Hemoglobin 7.5L, Hematocrit 22L, Mean Corpuscular Volume 93, Mean Corpuscular Hemoglobin 31, Mean Corpuscular Hemoglobin Concent 34, Red Cell Distribution Width 15.2H, Platelet Count 366, Mean Platelet Volume 10.2, Sodium Level 126L, Potassium Level 5.1H, Chloride Level 100, Carbon Dioxide Level 22, Anion Gap 4L, Blood Urea Nitrogen 17, Creatinine 0.79, Estimat Glomerular Filtration Rate 96, BUN/Creatinine Ratio 22, Glucose Level 292H, Calcium Level 7.5L, Corrected Calcium 9.2, Total Bilirubin 0.4, Aspartate Amino Transf (AST/SGOT) 44H, Alanine Aminotransferase (ALT/SGPT) 35, Alkaline Phosphatase 172H, Total Protein 4.4L, Albumin 1.9L 11/28/21 16:04: Glucometer 286H Microbiology 11/26/21 Blood Culture - Preliminary, Resulted No growth 11/26/21 Urine Culture - Final, Complete Escherichia coli Radiology PROCEDURE: CT head wo r/o stroke. TECHNIQUE: Multiple contiguous axial images were obtained through the brain without the use of intravenous contrast. Auto Exposure Controls were utilized during the CT exam to meet ALARA standards for radiation dose reduction. INDICATION: Altered mental status. EXAMINATION: CT brain 11/26/2021 COMPARISON: 11/16/2021. FINDINGS: There is chronic ischemic disease in a periventricular deep white matter distribution with a large area of encephalomalacia within the right frontal parietal lobes stable from previous imaging. Atrophy is noted slightly greater than expected for patient age. There is no acute hemorrhage or infarct. No mass, mass effect or midline shift. Ventricles prominent but stable from previous imaging. The calvarium is intact. Paranasal sinuses and mastoid air cells clear. IMPRESSION: 1. Chronic findings with no acute intracranial process. Findings agree with the preliminary report. 2 views of the chest Heart is prominent. Pulmonary vasculature is unremarkable. Lungs clear with no infiltrates or effusions. No pneumothorax. IMPRESSION: 1. Chronic findings with no superimposed acute cardiopulmonary process. 2. Not mentioned in the body report, there are bilateral rib fractures likely old, correlate clinically. Dictated by: Dictated on workstation # [id number] Dict: 11/27/2106 Trans: 11/27/21 1146 CV [id number] Interpreted by: KRISTEN GIANG MD Electronically signed by: KRISTEN GIANG MD 11/27/21 1146 Meds As indicated in medications. Assessment/Plan Assessment/Plan Admission Dx Sepsis secondary to UTI Admission Status: Inpatient Order (span 2 midnights) Reason for Inpatient Admission: Sepsis secondary to UTI (E. Coli confirmed in urine culture). Patient is experiencing altered mental status and has been placed on IV antibiotics. Patient admitted due to the aforementioned conditions and confounding chronic medical problems. Assessment & Plan Sepsis secondary to UTI - continue cefepime, monitor lab results to assess treatment efficacy. Altered mental status - continue antibiotics for treatment of sepsis, imaging studies have found no acute changes that would indicate a cause other than a compounding diagnosis of sepsis and dementia.\ NSTEMI - deemed inoperable in 2018 post cardiac catheterization DM - continue medical management with careful glucose monitoring Dementia - continue observation to determine the presence of any acute mental status changes or mental status improvement with treatment of sepsis. Continue medical management. GERD - continue treatment with PPI's PVD - continue pharmacologic management according to cardiology recommendations CAD - continue pharmacologic management according to cardiology recommendations Chronic Heart Failure - continue pharmacologic management according to cardiology recommendations Clinical Quality Measures Admission Status Admission Dx Sepsis DVT/VTE Risk/Contraindication: VTE Addressed: Yes CLARIBEL RAMEY MD 11/28/217: Supervisory-Addendum Brief Verification & Attestation Participated in pt care: history, MDM, physical Personally performed: exam, history, MDM, supervision of care Care discussed with: Medical Student Procedures: n/a I personally saw and examined patient and did my own history and exam which confirm the findings documented by the medical student. I directed the plan of care as documented by the medical student. ERICK MUNOZ Nov 28, 2021 17:52 CLARIBEL RAMEY MD Nov 28, 2021 21:07
[2021-11-28] MEDS: MIRTAZAPINE 15 MG (REMERON) TAB PO SCH (20:46)
[2021-11-28] MEDS: MELATONIN 3 MG TABLET PO SCH (20:47)
[2021-11-28] MEDS: AtorvaSTATin TABLET 10 MG TABLET PO SCH (20:47)
[2021-11-28] MEDS: GABAPENTIN 300 MG (NEURONTIN) CAP PO SCH (20:47)
[2021-11-28] MEDS: MEMANTINE 5 MG (NAMENDA) TABLET PO SCH (20:47)
[2021-11-28] MEDS: DONEPEZIL 10 MG (ARICEPT) TAB PO SCH (20:47)
[2021-11-29] VITALS (9 sets, daily range): BP systolic 100–161; BP diastolic 61–84
[2021-11-29] MEDS: NS IV 1000 ML 1,000 ML IV SCH ×4 (00:05→23:25)
[2021-11-29] MEDS: CEFEPIME 1,000 MG/NS 50 ML IVPB IV SCH ×10 (00:05→23:16)
[2021-11-29] MEDS: CATHETER FLUSH 10 ML SYR IVP SCH ×3 (06:09→20:28)
[2021-11-29] MEDS: THIAMINE 100 MG (VITAMIN B-1) TAB PO SCH (06:10)
[2021-11-29] MEDS: LEVOTHYROXINE 100 MCG (LEVOTHROID) TAB PO SCH (06:10)
[2021-11-29] MEDS: LEVOTHYROXINE 75 MCG (LEVOTHROID) TABLET PO SCH (06:10)
[2021-11-29] MEDS: MULTIVIT W/MINERALS TAB (THERAGRAN M) PO SCH (06:10)
[2021-11-29] MEDS: inSUlin ASPART (NovoLOG) 1 UNIT/0.01 ML (CHARGE PER UNIT) SC SCH ×4 (06:17→20:24)
--- NOTE | 2021-11-29 08:07 | Cardiology Progress Note ---
Subjective Date Seen by Provider: Nov 29, 2021 Time Seen by Provider: 08:05 Subjective/Events-last exam Patient was seen at bedside, laying down comfortably, denied any chest pain. Review of Systems General: No Chills, No Night Sweats, No Fatigue, No Malaise, No Appetite, No Other HEENT: No Head Aches, No Visual Changes, No Eye Pain, No Ear Pain, No Dysphasia, No Sinus Congestion, No Post Nasal Drip, No Sore Throat, No Other Pulmonary: No Dyspnea, No Cough, No Pleuritic Chest Pain, No Other Cardiovascular: Edema; No: Chest Pain, Palpitations, Orthopnea, Paroxysmal Noc. Dyspnea, Lt Headedness, Other Focused Exam Lactate Level 11/26/21 23:05: Lactic Acid Level 1.77 Time of Focused Exam: 23:50 Objective-Cardiology Exam Last Set of Vital Signs Vital Signs 11/27/21 11/29/21 11/29/21 07:00 03:35 07:00 Temp 36.0 Pulse 73 Resp 18 B/P (MAP) 125/63 (83) Pulse Ox 95 O2 Delivery Room Air O2 Flow Rate 2.00 I&O Intake and Output 11/29/21 00:00 Intake Total 1120 ml Output Total 1200 ml Balance -80 ml Intake Oral 1120 ml Output Urine Total 1200 ml # Voids 5 # Bowel Movements 6 General: Alert, Cooperative, No Acute Distress, Other (Only oriented to self.) HEENT: Atraumatic Neck: No JVD Lungs: Clear to Auscultation Heart: Regular Rate, Normal S1, Normal S2, No Murmurs Abdomen: Normal Bowel Sounds, No Tenderness (No tenderness to palpation on abdominal exam) Extremities: Normal Pulses (Radial pulses 2+ bilaterally.), Other (Amputated fi rst 4 toes on right foot, amputated first 2 toes on left foot) Skin: No Rashes, No Significant Lesion Neuro: Normal Speech Psych/Mental Status: Mood NL Results Lab Laboratory Tests 11/28/21 14:05 A/P-Cardiology Admission Diagnosis Change in mental status Non-ST elevation myocardial infarction Coronary artery disease Peripheral arterial disease. Assessment/Plan Acute change in mental status, probably secondary to sepsis. Improving, receiving antibiotics. Urinary tract infection, sepsis, receiving antibiotic and improving. Mild elevation in troponin, no acute EKG changes or chest pain. Non-ST elevation myocardial infarction Patient is known to have extensive coronary artery disease, deemed inoperable after cardiac catheterization in 2018. Conservative management is recommended. Anemia, drop in H&H. Could be secondary to aggressive IV fluid. Could have underlying GI bleed Monitor H&H. Hyperthyroidism, history of hypothyroidism, elevated TSH. Managed by primary care physician Coronary artery disease, History of myocardial infarction in 2014 underwent cardiac catheterization showing severe complex triple-vessel disease, the LAD reported to have severe diffuse disease at the mid to distal portion between 70-90 percent, diagonal branches has mild disease, small artery, circumflex is totally occluded receiving collaterals from the left system, right coronary artery is dominant, has severe diffuse disease 60-80 percent, posterior lateral branches has significant disease. Cardiac catheterization done February 25, 2018 revealed severe multi-vessel coronary artery disease with total occlusion of the circumflex artery severe disease at the proximal LAD severe disease at the proximal and distal right coronary artery. Normal left ventricular end-diastolic pressure. Patient was referred to Dr. Rodriguez for further evaluation. Conservative management was recommended. Stress test done May 23, 2021 showing fixed defect involving the whole inferior wall inferolateral wall with small area of celeste-infarct ischemia. Prominent left ventricle with diffuse left ventricular hypokinesia more pronounced at the inferior wall, ejection fraction 40%. SSS 12,SDS 2, TID 1.03 Peripheral vascular disease- Peripheral angiogram on March 05, 2017 revealing severe peripheral arterial disease at multiple levels starting at the iliac level with occlusion of the SFA bilaterally, severe disease below the knee. Single vessel runoff of the left through the anterior tibial reconstructed by collaterals. He has been referred to Dr. Rodriguez further management. Underwent CTA of aorta with runoff on March 17, 2017 revealing atherosclerotic plaque and at least 50-75 percent stenosis of the bilateral external iliac arteries. Complete occlusion of the right SFA at its origin with collateral flow below the knee supply by profunda femoris branches. High grade stenosis at the origin of the left SFA with complete occlusion in its mid and distal aspect. Reconstruction within the left popliteal artery. Two-vessel runoff in both lower legs. Underwent intervention to left lower extremity with Dr. Rodriguez in June 2017. Peripheral angiogram done February 25, 2018 revealed hypertensive changes in the aortic arch and tortuous and calcified carotids. Patent stent in the right common femoral artery with occluded right SFA reconstructed at the popliteal artery by collaterals and 1 vessel runoff down to the foot. Patent stent in the left common femoral artery with severe disease and occluded left SFA. Patient was sent back to Dr. Rodriguez for further evaluation and underwent peripheral angiogram with toe amputation in March 2018. Had right leg life Stream 6 x 37 and 6 x 26 and stent 7 x 27 of the right common iliac artery. Has been followed with a [place] [facility] group. Having osteomyelitis of the second left toe. Underwent peripheral angiogram on May 05, 2019 revealing severe extensive peripheral arterial disease in both legs running with collaterals down to the foot, now identified artery for intervention. Seen with Dr. Rodriguez, had another amputation on his toes. Monitored by Dr. Tracey h Status post left second toe amputation with Dr. Ulrich secondary to osteomyelitis, clean dry and intact dressing in place Hypertension, restart home medication monitor blood pressure Hyperlipidemia, maintained on simvastatin 10 mg daily, lipid profile done on May 08, 2021 showing total cholesterol 119, HDL 33, triglyceride 158, LDL 54. Continue to monitor History of alcoholism Diabetes mellitus, continue to monitor closely, managed by primary care physician educated on diabetic control. Tobaccoism, once again educated on smoking cessation History of CVA with left sided weakness, expressive aphasia, history of seizure disorder Carotid artery stenosis-bilateral mild nonobstructive disease per carotid duplex done February 2017. Continue to monitor. History of noncompliance with medications and appointments BRIDGER JUSTICE MD Nov 29, 2021 08:07
[2021-11-29] MEDS: ARTIFICAL TEARS 0.4 ML UNIT DOSE (REFRESH PLUS) OU SCH ×2 (08:10→20:23)
[2021-11-29] MEDS: VITAMIN D3 125 MCG (5,000 UNITS) CAPSULE PO SCH (08:10)
[2021-11-29] MEDS: VENlafaxine XR 75 MG (EFFEXOR XR) CAP PO SCH (08:10)
[2021-11-29] MEDS: CLOPIDOGREL 75 MG (PLAVIX) TABLET PO SCH (08:10)
[2021-11-29] MEDS: TAMSULOSIN 0.4 MG (FLOMAX) CAP PO SCH (08:10)
[2021-11-29] MEDS: cloNIDine 0.2 MG (CATAPRES) TAB PO SCH ×2 (08:10→20:24)
[2021-11-29] MEDS: meTOprolol TARTRATE 50 MG (LOPRESSOR) TAB PO SCH ×2 (08:10→17:50)
[2021-11-29] MEDS: ASPIRIN E.C. 81 MG (ECOTRIN) TAB PO SCH (08:10)
[2021-11-29] MEDS: NICOTINE 21 MG (NICODERM) PATCH TD SCH (08:10)
[2021-11-29] MEDS: DIVALPROX SPRINKLE 125 MG (DEPAKOTE) CAP PO SCH ×3 (08:10→20:24)
[2021-11-29] MEDS: PANTOPRAZOLE 20 MG TABLET (PROTONIX) PO SCH (08:10)
[2021-11-29] MEDS: LACTOBACILLUS ACIDOPHILUS (PROBIOTIC) CAPSULE PO SCH ×4 (08:10→20:24)
[2021-11-29] MEDS: clonazePAM 0.5 MG (KlonoPIN) TAB PO SCH ×2 (08:17→13:38)
[2021-11-29] MEDS: DOCUSATE SODIUM 100 MG (COLACE) CAP PO SCH ×2 (09:45→20:24)
[2021-11-29 10:37] LABS: POTASSIUM 4.3 MMOL/L (3.6-5.0)
[2021-11-29 10:48] LABS: CALCIUM 7.4 MG/DL (8.5-10.1); CREATININE SERUM 0.86 MG/DL (0.60-1.30)
[2021-11-29] MEDS ORDERED: NS IV 500 ML 500 ML IV SCH ×2 (11:15)
[2021-11-29 11:37] LABS: HEMATOCRIT 19 % (40-54); HEMOGLOBIN 6.2 g/dL (13.3-17.7); MEAN CORPUSCULAR HEMOGLOBIN 31 pg (25-34); MEAN CORPUSCULAR HGB CONC 32 g/dL (32-36); MEAN CORPUSCULAR VOLUME 96 fL (80-99); WHITE BLOOD COUNT 9.7 10^3/uL (4.3-11.0)
[2021-11-29 11:38] LABS: BASOPHILS % (AUTO) 1 % (0-10); EOSINOPHILS % (AUTO) 4 % (0-10); LYMPHOCYTES # (AUTO) 1.7 X 10^3 (1.0-4.0); LYMPHOCYTES % (AUTO) 18 % (12-44); MEAN PLATELET VOLUME 10.1 fL (9.0-12.2); MONOCYTES % (AUTO) 7 % (0-12); NEUTROPHILS # (AUTO) 6.8 X 10^3 (1.8-7.8); NEUTROPHILS % (AUTO) 70 % (42-75); PLATELET COUNT 384 10^3/uL (130-400)
[2021-11-29 11:39] LABS: ABSOLUTE RETIC # 114 10e9/uL (24-90); BASOPHILS # (AUTO) 0.1 10^3/uL (0.0-0.1); EOSINOPHILS # (AUTO) 0.4 10^3/uL (0.0-0.3); MONOCYTES # (AUTO) 0.7 X 10^3 (0.0-1.0)
[2021-11-29 11:40] LABS: RETICULOCYTE % 5.77 % (0.50-2.40)
[2021-11-29 12:50] LABS: ANISOCYTOSIS SLIGHT; BAND NEUTROPHILS 1 %; BASOPHILS % (MANUAL) 0 %; EOSINOPHILS % (MANUAL) 6 %; LYMPHOCYTES % (MANUAL) 11 %; MONOCYTES % (MANUAL) 4 %; NEUTROPHILS % (MANUAL) 78 %; POLYCHROMASIA SLIGHT
--- NOTE | 2021-11-29 12:57 | Progress Note ---
ERICK MUNOZ 11/29/21 1257: Subjective Subjective/Events-last exam Patient is a 71 yo male admitted to the hospital for sepsis secondary to a urinary tract infection. Patient states that he is feeling much better today than he has for the past two days. He denies cough, headache, nausea, vomiting, abdominal pain, SOB, chest pain, constipation, or diarrhea. He states that he still feels a bit sore throughout his body but that his sleep has improved. Review of Systems General: Fatigue, Malaise HEENT: No Head Aches Pulmonary: No Dyspnea, No Cough Cardiovascular: No: Chest Pain Gastrointestinal: No: Nausea, Vomiting, Abdominal Pain, Diarrhea, Constipation Musculoskeletal: other (General soreness throughout the body) Neurological: No: Change in speech Focused Exam Sepsis Stage: Sepsis (Sepsis has mostly seemed to have resolved. WBC count has dropped consistently (now at 18.3), x2 blood cultures were negative, patient is not tachycardic, tachypnic, or febrile) Possible Source: Genitouriary Lactate Level 11/26/21 23:05: Lactic Acid Level 1.77 Time of Focused Exam: 23:50 Objective Exam Last Set of Vital Signs Vital Signs Date Time Temp Pulse Resp B/P (MAP) Pulse Ox O2 Delivery O2 Flow Rate FiO2 11/29/21 11:42 36.6 68 19 102/61 (75) 96 Room Air 11/27/21 09:00 Capillary Refill : Less Than 3 Seconds I&O Intake and Output 11/29/21 00:00 Intake Total 1120 ml Output Total 1200 ml Balance -80 ml Intake Oral 1120 ml Output Urine Total 1200 ml # Voids 5 # Bowel Movements 6 General: Alert, Cooperative, Other (Alert to self and place, but not date.) Neck: No JVD Lungs: Clear to Auscultation, Normal Air Movement Heart: Regular Rate, Normal S1, Normal S2, No Murmurs Abdomen: Normal Bowel Sounds, No Tenderness Extremities: Other (Minor leg swelling) Skin: No Rashes, Other (Healing laceration on the right hip from recent surgery.) Neuro: Normal Speech, Normal Tone Psych/Mental Status: Other (Mental status difficult to determine due to dementia complicated by sepsis.) Results/Procedures Lab Laboratory Tests 11/28/21 14:05: White Blood Count 13.8H, Red Blood Count 2.39L, Hemoglobin 7.5L, Hematocrit 22L, Mean Corpuscular Volume 93, Mean Corpuscular Hemoglobin 31, Mean Corpuscular Hemoglobin Concent 34, Red Cell Distribution Width 15.2H, Platelet Count 366, Mean Platelet Volume 10.2, Sodium Level 126L, Potassium Level 5.1H, Chloride Level 100, Carbon Dioxide Level 22, Anion Gap 4L, Blood Urea Nitrogen 17, Creatinine 0.79, Estimat Glomerular Filtration Rate 96, BUN/Creatinine Ratio 22, Glucose Level 292H, Calcium Level 7.5L, Corrected Calcium 9.2, Total Bilirubin 0.4, Aspartate Amino Transf (AST/SGOT) 44H, Alanine Aminotransferase (ALT/SGPT) 35, Alkaline Phosphatase 172H, Total Protein 4.4L, Albumin 1.9L 11/28/21 16:04: Glucometer 286H 11/28/21 20:42: Glucometer 310H 11/29/21 06:06: Glucometer 169H 11/29/21 10:15: Sodium Level 132L, Potassium Level 4.3, Chloride Level 103, Carbon Dioxide Level 20L, Anion Gap 9, Blood Urea Nitrogen 15, Creatinine 0.86, Estimat Glomerular Filtration Rate 94, BUN/Creatinine Ratio 17, Glucose Level 219H, Calcium Level 7.4L 11/29/21 10:50: White Blood Count 9.7, Red Blood Count 2.00L, Hemoglobin 6.2*L, Hematocrit 19*L, Mean Corpuscular Volume 96, Mean Corpuscular Hemoglobin 31, Mean Corpuscular Hemoglobin Concent 32, Red Cell Distribution Width 15.6H, Platelet Count 384, Mean Platelet Volume 10.1, Immature Granulocyte % (Auto) 1, Neutrophils (%) (Auto) 70, Lymphocytes (%) (Auto) 18, Monocytes (%) (Auto) 7, Eosinophils (%) (Auto) 4, Basophils (%) (Auto) 1, Neutrophils # (Auto) 6.8, Lymphocytes # (Auto) 1.7, Monocytes # (Auto) 0.7, Eosinophils # (Auto) 0.4H, Basophils # (Auto) 0.1, Immature Granulocyte # (Auto) 0.1, Neutrophils % (Manual) 78, Lymphocytes % (Manual) 11, Monocytes % (Manual) 4, Eosinophils % (Manual) 6, Basophils % (Manual) 0, Band Neutrophils 1, Percent Immature Platelet Fraction 1.8, Polychromasia SLIGHT, Anisocytosis SLIGHT, Absolute Reticulocyte Count 114H, Percent Reticulocyte Count 5.77H 11/29/21 11:28: Glucometer 256H Microbiology 11/26/21 Blood Culture - Preliminary, Resulted No growth 11/26/21 Urine Culture - Final, Complete Escherichia coli Radiology PROCEDURE: CT head wo r/o stroke. TECHNIQUE: Multiple contiguous axial images were obtained through the brain without the use of intravenous contrast. Auto Exposure Controls were utilized during the CT exam to meet ALARA standards for radiation dose reduction. INDICATION: Altered mental status. EXAMINATION: CT brain 11/26/2021 COMPARISON: 11/16/2021. FINDINGS: There is chronic ischemic disease in a periventricular deep white matter distribution with a large area of encephalomalacia within the right frontal parietal lobes stable from previous imaging. Atrophy is noted slightly greater than expected for patient age. There is no acute hemorrhage or infarct. No mass, mass effect or midline shift. Ventricles prominent but stable from previous imaging. The calvarium is intact. Paranasal sinuses and mastoid air cells clear. IMPRESSION: 1. Chronic findings with no acute intracranial process. Findings agree with the preliminary report. 2 views of the chest Heart is prominent. Pulmonary vasculature is unremarkable. Lungs clear with no infiltrates or effusions. No pneumothorax. IMPRESSION: 1. Chronic findings with no superimposed acute cardiopulmonary process. 2. Not mentioned in the body report, there are bilateral rib fractures likely old, correlate clinically. Dictated by: Dictated on workstation # [id number] Dict: 11/27/21 0806 Trans: 11/27/21 1146 CVB [id number] Interpreted by: KRISTEN GIANG MD Electronically signed by: KRISTEN GIANG MD 11/27/21 1146 Meds Medications as listed in medications list Assessment/Plan Assessment/Plan Admission Dx Sepsis secondary to urinary tract infection Admission Status: Inpatient Order (span 2 midnights) Assessment & Plan Sepsis secondary to UTI - continue cefepime, monitor lab results to assess treatment efficacy. Altered mental status - continue antibiotics for treatment of sepsis, imaging studies have found no acute changes that would indicate a cause other than a compounding diagnosis of sepsis and dementia.\ NSTEMI - deemed inoperable in 2018 post cardiac catheterization DM - continue medical management with careful glucose monitoring Dementia - continue observation to determine the presence of any acute mental status changes or mental status improvement with treatment of sepsis. Continue medical management. GERD - continue treatment with PPI's PVD - continue pharmacologic management according to cardiology recommendations CAD - continue pharmacologic management according to cardiology recommendations Chronic Heart Failure - continue pharmacologic management according to cardiology recommendations Anemia - low HGB and HCT, hold plavix and aspirin, conduct iron studies. Patient to be given a blood transfusion. Clinical Quality Measures Admission Status Admission Dx Sepsis DVT/VTE Risk/Contraindication: VTE Addressed: Yes CLARIBEL RAMEY MD 11/29/21 1603: Supervisory-Addendum Brief Verification & Attestation Participated in pt care: history, MDM, physical Personally performed: exam, history, MDM, supervision of care Care discussed with: Medical Student Procedures: n/a I personally saw and examined patient and did my own history and physical exam which confirm that documented by the medical student. I directed the plan of care as documented by the medical student. ERICK MUNOZ Nov 29, 2021 12:57 CLARIBEL RAMEY MD Nov 29, 2021 16:03
[2021-11-29] MEDS: MIRTAZAPINE 15 MG (REMERON) TAB PO SCH (20:23)
[2021-11-29] MEDS: MELATONIN 3 MG TABLET PO SCH (20:23)
[2021-11-29] MEDS: AtorvaSTATin TABLET 10 MG TABLET PO SCH (20:24)
[2021-11-29] MEDS: MEMANTINE 5 MG (NAMENDA) TABLET PO SCH (20:24)
[2021-11-29] MEDS: DONEPEZIL 10 MG (ARICEPT) TAB PO SCH (20:24)
[2021-11-29] MEDS: GABAPENTIN 300 MG (NEURONTIN) CAP PO SCH (20:24)
[2021-11-29] MEDS: FERROUS SULF 325 MG (IRON) TAB PO SCH (20:28)
[2021-11-30 04:00] VITALS: BP 163/64
[2021-11-30] MEDS: CEFEPIME 1,000 MG/NS 50 ML IVPB IV SCH ×8 (05:12→23:23)
[2021-11-30] MEDS: CATHETER FLUSH 10 ML SYR IVP SCH ×2 (05:12→13:39)
[2021-11-30] MEDS: LEVOTHYROXINE 100 MCG (LEVOTHROID) TAB PO SCH (05:15)
[2021-11-30] MEDS: inSUlin ASPART (NovoLOG) 1 UNIT/0.01 ML (CHARGE PER UNIT) SC SCH ×4 (05:15→21:31)
[2021-11-30] MEDS: THIAMINE 100 MG (VITAMIN B-1) TAB PO SCH (05:16)
[2021-11-30] MEDS: MULTIVIT W/MINERALS TAB (THERAGRAN M) PO SCH (05:16)
[2021-11-30] MEDS: LEVOTHYROXINE 75 MCG (LEVOTHROID) TABLET PO SCH (05:16)
[2021-11-30 05:54] LABS: HEMATOCRIT 28 % (40-54); MEAN CORPUSCULAR HEMOGLOBIN 31 pg (25-34); MEAN CORPUSCULAR HGB CONC 33 g/dL (32-36); MEAN CORPUSCULAR VOLUME 94 fL (80-99); MEAN PLATELET VOLUME 9.9 fL (9.0-12.2); PLATELET COUNT 436 10^3/uL (130-400); WHITE BLOOD COUNT 10.1 10^3/uL (4.3-11.0)
[2021-11-30 06:12] LABS: ALBUMIN 2.2 GM/DL (3.2-4.5); POTASSIUM 4.8 MMOL/L (3.6-5.0)
[2021-11-30 06:13] LABS: CALCIUM 8.3 MG/DL (8.5-10.1)
[2021-11-30 06:16] LABS: BILIRUBIN,TOTAL 0.4 MG/DL (0.1-1.0)
[2021-11-30 06:18] LABS: CREATININE SERUM 0.84 MG/DL (0.60-1.30)
[2021-11-30 08:00] VITALS: BP 166/82
[2021-11-30] MEDS: PANTOPRAZOLE 20 MG TABLET (PROTONIX) PO SCH (08:40)
[2021-11-30] MEDS: cloNIDine 0.2 MG (CATAPRES) TAB PO SCH ×2 (08:40→21:28)
[2021-11-30] MEDS: NICOTINE 21 MG (NICODERM) PATCH TD SCH (08:40)
[2021-11-30] MEDS: meTOprolol TARTRATE 50 MG (LOPRESSOR) TAB PO SCH ×2 (08:40→16:12)
[2021-11-30] MEDS: TAMSULOSIN 0.4 MG (FLOMAX) CAP PO SCH (08:40)
[2021-11-30] MEDS: VENlafaxine XR 75 MG (EFFEXOR XR) CAP PO SCH (08:40)
[2021-11-30] MEDS: VITAMIN D3 125 MCG (5,000 UNITS) CAPSULE PO SCH (08:40)
[2021-11-30] MEDS: DIVALPROX SPRINKLE 125 MG (DEPAKOTE) CAP PO SCH ×3 (08:40→21:28)
[2021-11-30] MEDS: LACTOBACILLUS ACIDOPHILUS (PROBIOTIC) CAPSULE PO SCH ×4 (08:40→21:27)
[2021-11-30] MEDS: ARTIFICAL TEARS 0.4 ML UNIT DOSE (REFRESH PLUS) OU SCH ×2 (08:40→21:29)
[2021-11-30] MEDS: DOCUSATE SODIUM 100 MG (COLACE) CAP PO SCH ×2 (08:40→21:28)
[2021-11-30] MEDS: clonazePAM 0.5 MG (KlonoPIN) TAB PO SCH ×2 (08:40→13:46)
--- NOTE | 2021-11-30 09:55 | Cardiology Progress Note ---
Subjective Date Seen by Provider: Nov 30, 2021 Time Seen by Provider: 09:55 Subjective/Events-last exam Patient was seen at bedside, laying down comfortably. Received blood transfusion. Review of Systems General: No Chills, No Night Sweats; Fatigue, Malaise; No Appetite, No Other HEENT: No Head Aches, No Visual Changes, No Eye Pain, No Ear Pain, No Dysphasia, No Sinus Congestion, No Post Nasal Drip, No Sore Throat, No Other Pulmonary: No Dyspnea, No Cough, No Pleuritic Chest Pain, No Other Cardiovascular: No: Chest Pain, Palpitations, Orthopnea, Paroxysmal Noc. Dyspnea, Edema, Lt Headedness, Other Focused Exam Time of Focused Exam: 23:50 Objective-Cardiology Exam Last Set of Vital Signs Vital Signs 11/27/21 11/30/21 07:00 08:00 Temp 36.3 Pulse 76 Resp 16 B/P (MAP) 166/82 (110) Pulse Ox 94 O2 Delivery Room Air O2 Flow Rate 2.00 I&O Intake and Output 11/30/21 00:00 Intake Total 1640 ml Output Total 2300 ml Balance -660 ml Intake Oral 1640 ml Output Urine Total 2300 ml General: Alert, Cooperative, Other (Alert to self and place, but not date.) HEENT: Atraumatic Neck: No JVD Lungs: Clear to Auscultation, Normal Air Movement Heart: Regular Rate, Normal S1, Normal S2, No Murmurs Abdomen: Normal Bowel Sounds, No Tenderness Extremities: Other (Minor leg swelling) Skin: No Rashes, Other (Healing laceration on the right hip from recent bazzi rgery.) Neuro: Normal Speech, Normal Tone Psych/Mental Status: Other (Mental status difficult to determine due to dementia complicated by sepsis.) Results Lab Laboratory Tests 11/29/21 10:15 11/29/21 10:50 11/30/21 05:20 A/P-Cardiology Admission Diagnosis Change in mental status Non-ST elevation myocardial infarction Coronary artery disease Peripheral arterial disease. Assessment/Plan Status post acute change in mental status, probably secondary to sepsis. Improving, receiving antibiotics. Urinary tract infection, sepsis, receiving antibiotic and improving. Mild elevation in troponin, no acute EKG changes or chest pain. Non-ST elevation myocardial infarction Patient is known to have extensive coronary artery disease, deemed inoperable after cardiac catheterization in 2018. Conservative management is recommended. Anemia, drop in H&H. Received blood transfusion. Continue to monitor H&H, managed by primary care physician Hyperthyroidism, history of hypothyroidism, elevated TSH. Managed by primary care physician Coronary artery disease, History of myocardial infarction in 2013 underwent cardiac catheterization showing severe complex triple-vessel disease, the LAD reported to have severe diffuse disease at the mid to distal portion between 70-90 percent, diagonal branches has mild disease, small artery, circumflex is totally occluded receiving collaterals from the left system, right coronary artery is dominant, has severe diffuse disease 60-80 percent, posterior lateral branches has significant disease. Cardiac catheterization done February 25, 2018 revealed severe multi-vessel coronary artery disease with total occlusion of the circumflex artery severe disease at the proximal LAD severe disease at the proximal and distal right coronary artery. Normal left ventricular end-diastolic pressure. Patient was referred to Dr. Rodriguez for further evaluation. Conservative management was recommended. Stress test done May 23, 2021 showing fixed defect involving the whole inferior wall inferolateral wall with small area of celeste-infarct ischemia. Prominent left ventricle with diffuse left ventricular hypokinesia more pronounced at the inferior wall, ejection fraction 40%. SSS 12,SDS 2, TID 1.03 Peripheral vascular disease- Peripheral angiogram on March 05, 2017 revealing severe peripheral arterial disease at multiple levels starting at the iliac level with occlusion of the SFA bilaterally, severe disease below the knee. Single vessel runoff of the left through the anterior tibial reconstructed by collaterals. He has been referred to Dr. Rodriguez further management. Underwent CTA of aorta with runoff on March 17, 2017 revealing atherosclerotic plaque and at least 50-75 percent stenosis of the bilateral external iliac arteries. Complete occlusion of the right SFA at its origin with collateral flow below the knee supply by profunda femoris branches. High grade stenosis at the origin of the left SFA with complete occlusion in its mid and distal aspect. Reconstruction within the left popliteal artery. Two-vessel runoff in both lower legs. Underwent intervention to left lower extremity with Dr. Rodriguez in June 2017. Peripheral angiogram done February 25, 2018 revealed hypertensive changes in the aortic arch and tortuous and calcified carotids. Patent stent in the right common femoral artery with occluded right SFA reconstructed at the popliteal art tyler by collaterals and 1 vessel runoff down to the foot. Patent stent in the left common femoral artery with severe disease and occluded left SFA. Patient was sent back to Dr. Rodriguez for further evaluation and underwent peripheral angiogram with toe amputation in March 2018. Had right leg life St ream 6 x 37 and 6 x 26 and stent 7 x 27 of the right common iliac artery. Has been followed with a [facility]. Having osteomyelitis of the second left toe. Underwent peripheral angiogram on May 05, 2019 revealing severe extensive peripheral arterial disease in both legs running with collaterals down to the foot, now identified artery for intervention. Seen with Dr. Rodriguez, had another amputation on his toes. Monitored by Dr. Rodriguez Status post left second toe amputation with Dr. Ulrich secondary to osteomyelitis, clean dry and intact dressing in place Hypertension, restart home medication monitor blood pressure Hyperlipidemia, maintained on simvastatin 10 mg daily, lipid profile done on May 08, 2021 showing total cholesterol 119, HDL 33, triglyceride 158, LDL 54. Continue to monitor History of alcoholism Diabetes mellitus, continue to monitor closely, managed by primary care physician educated on diabetic control. Tobaccoism, once again educated on smoking cessation History of CVA with left sided weakness, expressive aphasia, history of seizure disorder Carotid artery stenosis-bilateral mild nonobstructive disease per carotid duplex done February 2017. Continue to monitor. History of noncompliance with medications and appointments BRIDGER JUSTICE MD Nov 30, 2021 09:55
[2021-11-30] MEDS: ICOSAPENT ETHYL 1 GM PO SCH ×2 (10:24→21:31)
--- NOTE | 2021-11-30 11:01 | Progress Note ---
ERICK MUNOZ 11/30/21 1101: Subjective Subjective/Events-last exam Patient is a 62 yo male admitted for sepsis secondary to UTI. He states that he feels the same as yesterday. Denies nausea, vomiting, chest pain, lightheadedness, SOB, headache, fatigue, diarrhea and general soreness. He is alert to self and place (knows he is in a care facility) but not time. He indicates that he has been having difficulties passing stool. Review of Systems General: No Fatigue, No Malaise HEENT: No Head Aches Cardiovascular: No: Chest Pain, Palpitations, Lt Headedness Gastrointestinal: Constipation (States that he has had difficulty passing stool.); No: Nausea, Vomiting, Abdominal Pain, Diarrhea Neurological: Confusion (Patient has dementia and altered mental status. Baseline mental status is unknown.) Focused Exam Sepsis Stage: Ruled Out (Patient no longer meets SIRS criteria) Possible Source: Genitouriary Lactate Level 1.77 on 11/26/2021 Time of Focused Exam: 23:50 Objective Exam Last Set of Vital Signs Vital Signs Date Time Temp Pulse Resp B/P (MAP) Pulse Ox O2 Delivery O2 Flow Rate FiO2 11/30/21 08:00 36.3 76 16 166/82 (110) 94 Room Air 11/27/21 09:00 Capillary Refill : Less Than 3 Seconds I&O Intake and Output 11/30/21 00:00 Intake Total 1640 ml Output Total 2300 ml Balance -660 ml Intake Oral 1640 ml Output Urine Total 2300 ml General: Alert, Cooperative, No Acute Distress, Other (Only oriented to self and place (knew he was at a care facility but didn't know where)) Neck: No JVD Lungs: Clear to Auscultation, Normal Air Movement Heart: Regular Rate, Normal S1, Normal S2, No Murmurs Abdomen: Normal Bowel Sounds, Soft, No Tenderness Skin: No Rashes Neuro: Normal Speech, Normal Tone Psych/Mental Status: Other (Patient has dementia complicated by bacterial infection. Normal mental status is unknown.) Other physical findings Capillary refill - ~2s. Right hip surgical incision appears to be healing well without erythema, edema, or signs of infection or inflammation. 2+ radial pulses bilaterally Results/Procedures Lab Laboratory Tests 11/29/21 11:28: Glucometer 256H 11/29/21 13:09: Iron Level 31L, Total Iron Binding Capacity 140L, Unsaturated Iron Binding Capacity 109, Transferrin % Saturation 22, Ferritin 216.0 11/29/21 15:48: Glucometer 207H 11/29/21 20:24: Glucometer 76 11/29/21 23:20: Glucometer 188H 11/30/21 05:04: Glucometer 219H 11/30/21 05:20: White Blood Count 10.1, Red Blood Count 2.95L, Hemoglobin 9.0#L, Hematocrit 28L, Mean Corpuscular Volume 94, Mean Corpuscular Hemoglobin 31, Mean Corpuscular Hemoglobin Concent 33, Red Cell Distribution Width 15.7H, Platelet Count 436H, Mean Platelet Volume 9.9, Sodium Level 135, Potassium Level 4.8, Chloride Level 104, Carbon Dioxide Level 22, Anion Gap 9, Blood Urea Nitrogen 13, Creatinine 0.84, Estimat Glomerular Filtration Rate 94, BUN/Creatinine Ratio 15, Glucose Level 218H, Calcium Level 8.3L, Corrected Calcium 9.7, Total Bilirubin 0.4, Aspartate Amino Transf (AST/SGOT) 30, Alanine Aminotransferase (ALT/SGPT) 34, Alkaline Phosphatase 158H, Total Protein 5.0L, Albumin 2.2L 11/30/21 07:42: Glucometer 184H 11/30/21 10:24: Stool Occult Blood Immunoassay POSITIVEH Microbiology 11/26/21 Blood Culture - Preliminary, Resulted No growth 11/26/21 Urine Culture - Final, Complete Escherichia coli Radiology PROCEDURE: CT head wo r/o stroke. TECHNIQUE: Multiple contiguous axial images were obtained through the brain without the use of intravenous contrast. Auto Exposure Controls were utilized during the CT exam to meet ALARA standards for radiation dose reduction. INDICATION: Altered mental status. EXAMINATION: CT brain 11/26/2021 COMPARISON: 11/16/2021. FINDINGS: There is chronic ischemic disease in a periventricular deep white matter distribution with a large area of encephalomalacia within the right frontal parietal lobes stable from previous imaging. Atrophy is noted slightly greater than expected for patient age. There is no acute hemorrhage or infarct. No mass, mass effect or midline shift. Ventricles prominent but stable from previous imaging. The calvarium is intact. Paranasal sinuses and mastoid air cells clear. IMPRESSION: 1. Chronic findings with no acute intracranial process. Findings agree with the preliminary report. 2 views of the chest Heart is prominent. Pulmonary vasculature is unremarkable. Lungs clear with no infiltrates or effusions. No pneumothorax. IMPRESSION: 1. Chronic findings with no superimposed acute cardiopulmonary process. 2. Not mentioned in the body report, there are bilateral rib fractures likely old, correlate clinically. Dictated by: Dictated on workstation # [id number] Dict: 11/27/21 0806 Trans: 11/27/21 1146 CVB [id number] Interpreted by: KRISTEN GIANG MD Electronically signed by: KRISTEN GIANG MD 11/27/21 1146 Meds As stated in medications list. Assessment/Plan Assessment/Plan Admission Dx Sepsis secondary to UTI Admission Status: Inpatient Order (span 2 midnights) Reason for Inpatient Admission: Sepsis secondary to UTI requiring IV antibiotics. Patient is being treated for several chronic medical conditions requiring careful attention to medical management. Assessment & Plan Sepsis secondary to UTI - continue cefepime, monitor lab results to assess treatment efficacy. Patient no longer meets SIRS criteria. Altered mental status - continue antibiotics for treatment of sepsis, imaging studies have found no acute changes that would indicate a cause other than a compounding diagnosis of sepsis and dementia. NSTEMI - deemed inoperable in 2018 post cardiac catheterization DM - continue medical management with careful glucose monitoring Dementia - continue observation to determine the presence of any acute mental status changes or mental status improvement with treatment of sepsis. Continue medical management. GERD - continue treatment with PPI's PVD - continue pharmacologic management according to cardiology recommendations CAD - continue pharmacologic management according to cardiology recommendations Chronic Heart Failure - continue pharmacologic management according to cardiology recommendations Anemia - hold plavix and aspirin, iron studies showed an iron level of 31 and a TIBC of 140. The patient was given 1 unit of leukocyte reduced RBCs with drastic improvement of both HGB (9.0 up from 6.2) and HCT (28 up from 19) Clinical Quality Measures Admission Status Admission Dx Sepsis secondary to UTI Admission Status: Inpatient Order (span 2 midnights) Reason for Inpatient Admission: Patient to be treated for sepsis secondary to UTI requiring IV antibiotics. Multiple chronic medical conditions complicate treatment so careful observation is needed. DVT/VTE Risk/Contraindication: VTE Addressed: Yes CLARIBEL RAMEY MD 12/03/212030: Supervisory-Addendum Brief Verification & Attestation Participated in pt care: history, MDM, physical Personally performed: exam, history, MDM, supervision of care Care discussed with: Medical Student Procedures: n/a Results interpretation: Verified all documentation I personally obtained history and performed my own physical exam which confirm the findings documented by the medical student. I directed the plan of care as documented by the medical student. Uncertain source of anemia, no clear evidence of GI bleed, but given the significant drop in hemoglobin will keep another night to monitor for stability. ERICK MUNOZ Nov 30, 2021 11:01 CLARIBEL RAMEY MD Dec 03, 2021 20:31
[2021-11-30 11:33] VITALS: BP 146/85
[2021-11-30] MEDS ORDERED: inSUlin ASPART (NovoLOG) 1 UNIT/0.01 ML (CHARGE PER UNIT) SC NR (12:00)
[2021-11-30] MEDS ORDERED: CEFD300C3 PO (13:43)
[2021-11-30 13:45] LABS: HEMATOCRIT 25 % (40-54); HEMOGLOBIN 8.4 g/dL (13.3-17.7); MEAN CORPUSCULAR HEMOGLOBIN 31 pg (25-34); MEAN CORPUSCULAR HGB CONC 33 g/dL (32-36); MEAN CORPUSCULAR VOLUME 94 fL (80-99); MEAN PLATELET VOLUME 9.8 fL (9.0-12.2); PLATELET COUNT 389 10^3/uL (130-400); WHITE BLOOD COUNT 8.5 10^3/uL (4.3-11.0)
[2021-11-30] MEDS: NS IV 1000 ML 1,000 ML IV SCH (13:47)
[2021-11-30 15:55] VITALS: BP 133/84
[2021-11-30 19:31] VITALS: BP 113/58
[2021-11-30] MEDS: GABAPENTIN 300 MG (NEURONTIN) CAP PO SCH (21:27)
[2021-11-30] MEDS: MELATONIN 3 MG TABLET PO SCH (21:27)
[2021-11-30] MEDS: MEMANTINE 5 MG (NAMENDA) TABLET PO SCH (21:28)
[2021-11-30] MEDS: AtorvaSTATin TABLET 10 MG TABLET PO SCH (21:28)
[2021-11-30] MEDS: DONEPEZIL 10 MG (ARICEPT) TAB PO SCH (21:28)
[2021-11-30] MEDS: MIRTAZAPINE 15 MG (REMERON) TAB PO SCH (21:28)
[2021-11-30 23:50] VITALS: BP 125/69
[2021-12-01] MEDS: CATHETER FLUSH 10 ML SYR IVP SCH ×2 (00:13→05:29)
[2021-12-01 03:51] VITALS: BP 127/66
[2021-12-01] MEDS: LEVOTHYROXINE 75 MCG (LEVOTHROID) TABLET PO SCH (05:28)
[2021-12-01] MEDS: THIAMINE 100 MG (VITAMIN B-1) TAB PO SCH (05:28)
[2021-12-01] MEDS: LEVOTHYROXINE 100 MCG (LEVOTHROID) TAB PO SCH (05:28)
[2021-12-01] MEDS: MULTIVIT W/MINERALS TAB (THERAGRAN M) PO SCH (05:28)
[2021-12-01] MEDS: CEFEPIME 1,000 MG/NS 50 ML IVPB IV SCH ×2 (05:29)
[2021-12-01] MEDS: inSUlin ASPART (NovoLOG) 1 UNIT/0.01 ML (CHARGE PER UNIT) SC SCH (05:29)
[2021-12-01 05:34] LABS: BASOPHILS # (AUTO) 0.1 10^3/uL (0.0-0.1); BASOPHILS % (AUTO) 1 % (0-10); EOSINOPHILS # (AUTO) 0.4 10^3/uL (0.0-0.3); EOSINOPHILS % (AUTO) 4 % (0-10); HEMATOCRIT 25 % (40-54); HEMOGLOBIN 8.1 g/dL (13.3-17.7); LYMPHOCYTES # (AUTO) 3.1 10^3/uL (1.0-4.0); LYMPHOCYTES % (AUTO) 30 % (12-44); MEAN CORPUSCULAR HEMOGLOBIN 31 pg (25-34); MEAN CORPUSCULAR HGB CONC 32 g/dL (32-36); MEAN CORPUSCULAR VOLUME 94 fL (80-99); MEAN PLATELET VOLUME 9.5 fL (9.0-12.2); MONOCYTES # (AUTO) 0.8 10^3/uL (0.0-1.0); MONOCYTES % (AUTO) 8 % (0-12); NEUTROPHILS # (AUTO) 5.8 10^3/uL (1.8-7.8); NEUTROPHILS % (AUTO) 56 % (42-75); PLATELET COUNT 390 10^3/uL (130-400); WHITE BLOOD COUNT 10.4 10^3/uL (4.3-11.0)
[2021-12-01 05:53] LABS: ALBUMIN 2.1 GM/DL (3.2-4.5)
[2021-12-01 05:54] LABS: CALCIUM 8.1 MG/DL (8.5-10.1)
[2021-12-01 05:55] LABS: TOTAL PROTEIN 4.7 GM/DL (6.4-8.2)
[2021-12-01 05:57] LABS: BILIRUBIN,TOTAL 0.3 MG/DL (0.1-1.0)
[2021-12-01 05:59] LABS: CREATININE SERUM 0.73 MG/DL (0.60-1.30)
[2021-12-01 07:34] VITALS: BP 126/77
--- NOTE | 2021-12-01 07:47 | Progress Note - Hospitalist ---
Subjective HPI/CC On Admission Date Seen by Provider: Dec 01, 2021 Time Seen by Provider: 06:00 Focused Exam Time of Focused Exam: 23:50 Objective Exam Vital Signs Vital Signs Date Time Temp Pulse Resp B/P (MAP) Pulse Ox O2 Delivery O2 Flow Rate FiO2 12/01/21 09:10 76 12/01/21 09:00 95 Room Air 12/01/21 07:34 36.5 18 126/77 (93) 11/27/21 09:00 Capillary Refill : Less Than 3 Seconds Results/Procedures Lab Laboratory Tests 11/30/21 13:37 12/01/21 05:25 Patient resulted labs reviewed. Clinical Quality Measures DVT/VTE Risk/Contraindication: VTE Addressed: Yes ELIA KAT DO Dec 01, 2021 07:47
[2021-12-01] MEDS: ICOSAPENT ETHYL 1 GM PO SCH (09:05)
[2021-12-01] MEDS: meTOprolol TARTRATE 50 MG (LOPRESSOR) TAB PO SCH (09:06)
[2021-12-01] MEDS: VENlafaxine XR 75 MG (EFFEXOR XR) CAP PO SCH (09:06)
[2021-12-01] MEDS: NICOTINE 21 MG (NICODERM) PATCH TD SCH (09:06)
[2021-12-01] MEDS: PANTOPRAZOLE 20 MG TABLET (PROTONIX) PO SCH (09:06)
[2021-12-01] MEDS: VITAMIN D3 125 MCG (5,000 UNITS) CAPSULE PO SCH (09:06)
[2021-12-01] MEDS: DOCUSATE SODIUM 100 MG (COLACE) CAP PO SCH (09:06)
[2021-12-01] MEDS: cloNIDine 0.2 MG (CATAPRES) TAB PO SCH (09:06)
[2021-12-01] MEDS: LACTOBACILLUS ACIDOPHILUS (PROBIOTIC) CAPSULE PO SCH (09:06)
[2021-12-01] MEDS: DIVALPROX SPRINKLE 125 MG (DEPAKOTE) CAP PO SCH (09:07)
[2021-12-01] MEDS: TAMSULOSIN 0.4 MG (FLOMAX) CAP PO SCH (09:07)
[2021-12-01] MEDS: ARTIFICAL TEARS 0.4 ML UNIT DOSE (REFRESH PLUS) OU SCH (09:07)
[2021-12-01] MEDS: clonazePAM 0.5 MG (KlonoPIN) TAB PO SCH (09:13)
[2021-12-01] MEDS: NS IV 1000 ML 1,000 ML IV SCH (09:14)
--- NOTE | 2021-12-01 10:00 | Cardiology Progress Note ---
Progress Note-Cardiology Events since last exam Date Seen by Provider: Dec 01, 2021 Time Seen by Provider: 09:58 Events since last exam We are following him due to probable type II non-ST elevation myocardial inf arction that occurred in the setting of sepsis. According to his nurse, he may be transferred back to the retirement facility. He denied chest pain, dyspnea at rest, palpitations, syncope, or ankle edema. He tells me that the facility allows its residence to smoke cigarettes. Certain portions of this document may have been dictated utilizing voice recognition technology. Inherent to this technology, typographical and grammatical errors may exist. As much as I am diligent to identify and correct these mistakes, some errors may remain in the document. Vitals Last set of Vitals Signs Vital Signs 11/27/21 12/01/21 12/01/21 12/01/21 07:00 07:34 09:00 09:10 Temp 36.5 Pulse 76 Resp 18 B/P (MAP) 126/77 (93) Pulse Ox 95 O2 Delivery Room Air O2 Flow Rate 2.00 Labs Labs Laboratory Tests 11/30/21 13:37 12/01/21 05:25 Exam Vital Signs Vital Signs Date Time Temp Pulse Resp B/P (MAP) Pulse Ox O2 Delivery O2 Flow Rate FiO2 12/01/21 09:10 76 12/01/21 09:00 95 Room Air 12/01/21 07:34 36.5 18 126/77 (93) 11/27/21 09:00 Physical Exam General: Alert. No acute distress. Eye: No xanthelasma. HENT: Normocephalic. Neck: Jugular venous pressure does not appear elevated. Respiratory: Lungs are clear to auscultation. Respirations are non-labored. Breath sounds are equal. Symmetrical chest wall expansion. Cardiovascular: Normal rate. Regular rhythm. Distant S1/S2. No murmur. No gallop. No edema. Gastrointestinal: Soft. Normal bowel sounds. Skin: Warm. Dry. Neurologic: Alert and oriented to person only. Cranial nerves 3-11 grossly intact. Psychiatric: Cooperative. Appropriate mood & affect with some obvious underlying short-term memory loss. Labs Laboratory Tests Test 11/30/21 10:24 11/30/21 11:17 11/30/21 12:42 11/30/21 13:37 Range/Units Stool Occult Blood Immunoassay POSITIVE H NEGATIVE Glucometer 404 *H 70-110 MG/DL Lab Scanned Report Transfusion Reaction Form [id number] White Blood Count 8.5 4.3-11.0 10^3/uL Red Blood Count 2.71 L 4.30-5.52 10^6/uL Hemoglobin 8.4 L 13.3-17.7 g/dL Hematocrit 25 L 40-54 % Mean Corpuscular Volume 94 80-99 fL Mean Corpuscular Hemoglobin 31 25-34 pg Mean Corpuscular Hemoglobin Concent 33 32-36 g/dL Red Cell Distribution Width 15.5 H 10.0-14.5 % Platelet Count 389 130-400 10^3/uL Mean Platelet Volume 9.8 9.0-12.2 fL Test 11/30/21 15:47 11/30/21 20:09 12/01/21 05:22 12/01/21 05:25 Range/Units Glucometer 186 H 148 H 65 L 70-110 MG/DL White Blood Count 10.4 4.3-11.0 10^3/uL Red Blood Count 2.66 L 4.30-5.52 10^6/uL Hemoglobin 8.1 L 13.3-17.7 g/dL Hematocrit 25 L 40-54 % Mean Corpuscular Volume 94 80-99 fL Mean Corpuscular Hemoglobin 31 25-34 pg Mean Corpuscular Hemoglobin Concent 32 32-36 g/dL Red Cell Distribution Width 15.3 H 10.0-14.5 % Platelet Count 390 130-400 10^3/uL Mean Platelet Volume 9.5 9.0-12.2 fL Immature Granulocyte % (Auto) 1 % Neutrophils (%) (Auto) 56 42-75 % Lymphocytes (%) (Auto) 30 12-44 % Monocytes (%) (Auto) 8 0-12 % Eosinophils (%) (Auto) 4 0-10 % Basophils (%) (Auto) 1 0-10 % Neutrophils # (Auto) 5.8 1.8-7.8 10^3/uL Lymphocytes # (Auto) 3.1 1.0-4.0 10^3/uL Monocytes # (Auto) 0.8 0.0-1.0 10^3/uL Eosinophils # (Auto) 0.4 H 0.0-0.3 10^3/uL Basophils # (Auto) 0.1 0.0-0.1 10^3/uL Immature Granulocyte # (Auto) 0.2 H 0.0-0.1 10^3/uL Sodium Level 133 L 135-145 MMOL/L Potassium Level 4.0 3.6-5.0 MMOL/L Chloride Level 103 98-107 MMOL/L Carbon Dioxide Level 22 21-32 MMOL/L Anion Gap 8 5-14 MMOL/L Blood Urea Nitrogen 14 7-18 MG/DL Creatinine 0.73 0.60-1.30 MG/DL Estimat Glomerular Filtration Rate 98 BUN/Creatinine Ratio 19 Glucose Level 76 70-105 MG/DL Calcium Level 8.1 L 8.5-10.1 MG/DL Corrected Calcium 9.6 8.5-10.1 MG/DL Total Bilirubin 0.3 0.1-1.0 MG/DL Aspartate Amino Transf (AST/SGOT) 31 5-34 U/L Alanine Aminotransferase (ALT/SGPT) 34 0-55 U/L Alkaline Phosphatase 153 H 40-136 U/L Total Protein 4.7 L 6.4-8.2 GM/DL Albumin 2.1 L 3.2-4.5 GM/DL Test 12/01/21 05:47 Range/Units Glucometer 122 H 70-110 MG/DL Diagnosis/Problems Diagnosis/Problems (1) Coronary artery disease with unstable angina pectoris Assessment & Plan: He had a probable type II non-ST elevation myocardial infarction due to supply/demand mismatch. He is not having any angina. He has known inoperable three-vessel coronary artery disease. Aspirin and clopidogrel are currently on hold due to anemia that required a blood transfusion. I would suggest at least resuming aspirin prior to discharge. I have asked the nurse to check with the hospitalist in regards to whether or not to resume aspirin and/or clopidogrel. Continue beta-jozef and statin medication. Given his chronic debility, I do not see any strong indication to place him on intensive dose statin medication. (2) Primary hypertension Assessment & Plan: Blood pressure has been reasonably controlled with the present medications and these should be continued at the time of discharge. (3) Mixed hyperlipidemia Assessment & Plan: Continue atorvastatin. (4) Peripheral arterial disease Assessment & Plan: He has not been complaining of claudication. Resume aspirin and clopidogrel when able. Continue statin medication. Smoking cessation is of paramount importance. (5) Type 2 diabetes mellitus with complication Assessment & Plan: This is being managed by the hospitalist. (6) Cigarette smoker Assessment & Plan: He needs to quit smoking. He was counseled in this regard. (7) Dementia Status: Chronic Assessment & Plan: He has been on donepezil and memantine. JOLLY EDMONDS JR, MD Dec 01, 2021 10:00
--- NOTE | 2021-12-01 10:16 | Discharge Summary ---
Discharge Summary Hospital Course Was the Problem List Reviewed?: Yes Problems/Dx: (1) Coronary artery disease with unstable angina pectoris (2) Primary hypertension (3) Mixed hyperlipidemia (4) Peripheral arterial disease (5) Type 2 diabetes mellitus with complication (6) Cigarette smoker (7) Dementia Status: Chronic Hospital Course Date of Admission: Nov 27, 2021 at 00:10 Admission Diagnosis : Family Physician/Provider: Jarod Ahumada MD Date of Discharge: 12/01/21 Discharge Diagnosis: Sepsis secondary to UTI - continue cefepime, monitor lab results to assess treatment efficacy. Patient no longer meets SIRS criteria. Altered mental status - continue antibiotics for treatment of sepsis, imaging studies have found no acute changes that would indicate a cause other than a compounding diagnosis of sepsis and dementia. NSTEMI - deemed inoperable in 2018 post cardiac catheterization DM - continue medical management with careful glucose monitoring Dementia - continue observation to determine the presence of any acute mental status changes or mental status improvement with treatment of sepsis. Continue medical management. GERD - continue treatment with PPI's PVD - continue pharmacologic management according to cardiology recommendations CAD - continue pharmacologic management according to cardiology recommendations Chronic Heart Failure - continue pharmacologic management according to cardiology recommendations Anemia - hold plavix and aspirin, iron studies showed an iron level of 31 and a TIBC of 140. The patient was given 1 unit of leukocyte reduced RBCs with drastic improvement of both HGB (9.0 up from 6.2) and HCT (28 up from 19) Hospital Course: Standard hospital course for sepsis from UTI. See above Labs and Pending Lab Test: Laboratory Tests 11/30/21 10:24: Stool Occult Blood Immunoassay POSITIVEH 11/30/21 11:17: Glucometer 404*H 11/30/21 12:42: Lab Scanned Report Transfusion Reaction Form 11/30/21 13:37: White Blood Count 8.5, Red Blood Count 2.71L, Hemoglobin 8.4L, Hematocrit 25L, Mean Corpuscular Volume 94, Mean Corpuscular Hemoglobin 31, Mean Corpuscular Hemoglobin Concent 33, Red Cell Distribution Width 15.5H, Platelet Count 389, Mean Platelet Volume 9.8 11/30/21 15:47: Glucometer 186H 11/30/21 20:09: Glucometer 148H 12/01/21 05:22: Glucometer 65L 12/01/21 05:25: White Blood Count 10.4, Red Blood Count 2.66L, Hemoglobin 8.1L, Hematocrit 25L, Mean Corpuscular Volume 94, Mean Corpuscular Hemoglobin 31, Mean Corpuscular Hemoglobin Concent 32, Red Cell Distribution Width 15.3H, Platelet Count 390, Mean Platelet Volume 9.5, Immature Granulocyte % (Auto) 1, Neutrophils (%) (Auto) 56, Lymphocytes (%) (Auto) 30, Monocytes (%) (Auto) 8, Eosinophils (%) (Auto) 4, Basophils (%) (Auto) 1, Neutrophils # (Auto) 5.8, Lymphocytes # (Auto) 3.1, Monocytes # (Auto) 0.8, Eosinophils # (Auto) 0.4H, Basophils # (Auto) 0.1, Immature Granulocyte # (Auto) 0.2H, Sodium Level 133L, Potassium Level 4.0, Chloride Level 103, Carbon Dioxide Level 22, Anion Gap 8, Blood Urea Nitrogen 14, Creatinine 0.73, Estimat Glomerular Filtration Rate 98, BUN/Creatinine Ratio 19, Glucose Level 76, Calcium Level 8.1L, Corrected Calcium 9.6, Total Bilirubin 0.3, Aspartate Amino Transf (AST/SGOT) 31, Alanine Aminotransferase (ALT/SGPT) 34, Alkaline Phosphatase 153H, Total Protein 4.7L, Albumin 2.1L 12/01/21 05:47: Glucometer 122H Microbiology 11/26/21 Blood Culture - Preliminary, Resulted No growth 11/26/21 Urine Culture - Final, Complete Escherichia coli Home Meds Active Cefdinir 300 Mg Capsule 300 Mg PO BID 5 Days Reported Vitamin B-1 (Thiamine Mononitrate) 100 Mg Tablet 100 Mg PO DAILY Systane Complete (Propylene Glycol) 0.6 % Drops 1 Drop OU BID Simvastatin 10 Mg Tablet 10 Mg PO HS Multivitamin 1 Each Tablet 1 Each PO DAILY Metformin HCl 500 Mg Tablet 500 Mg PO BID Memantine HCl 5 Mg Tablet 5 Mg PO HS Ativan (Lorazepam) 1 Mg Tablet 1 Mg PO Q8H PRN Lansoprazole 15 Mg Capsule.dr 15 Mg PO DAILY Clonazepam 0.5 Mg Tablet 0.5 Mg PO 0800,1400 Glucagon Emergency Kit (Glucagon HCl) 1 Mg Vial 1 Mg IM UD PRN GIVE NEEEDED FOR UNRESPONSIVE HYPOGLYCEMIA EVENT, IF REMAINS UNRESPONSIVE AFTER 15 MINUTES MAY GIVE ANOTHER DOSE Aspirin EC (Aspirin) 81 Mg Tablet.dr 81 Mg PO BID TAKES TWICE DAILY X 6 WEEKS FOR PROPHYLATIC- START DATE 11-25-2021 Tylenol Extra Strength (Acetaminophen) 500 Mg Tablet 1,000 Mg PO Q8H PRN Lexapro (Escitalopram Oxalate) 5 Mg Tablet 5 Mg PO DAILY Nicotine Patch (Nicotine) 1 Each Patch.td24 21 Mg TD DAILY Tramadol HCl 50 Mg Tablet 100 Mg PO Q6H PRN TAKES 2 (50MG) TABS Clonidine HCl 0.2 Mg Tablet 0.2 Mg PO BID HOLD IF SBP <100 OR PULSE <60 Mirtazapine 15 Mg Tablet 15 Mg PO HS Venlafaxine HCl ER (Venlafaxine HCl) 75 Mg Cap.er.24h 75 Mg PO DAILY Metoprolol Tartrate 50 Mg Tablet 50 Mg PO BID WITH MEALS HOLD IF BP <110/60 OR PULSE <60 Levemir Flextouch (Insulin Detemir) 100 Unit/Ml (3 Ml) Insuln.pen 15 Units SC DAILY Neurontin (Gabapentin) 300 Mg Capsule 300 Mg PO HS Ferrous Sulfate 325 Mg Tablet 325 Mg PO Q48H Colace (Docusate Sodium) 100 Mg Capsule 100 Mg PO BID Vitamin D3 (Cholecalciferol (Vitamin D3)) 125 Mcg (5000 Unit) Capsule 125 Mcg PO DAILY Novolog (Insulin Aspart) 100 Unit/Ml Susp 7 Unit SQ AC Trulicity (Dulaglutide) 0.75 Mg/0.5 Ml Pen.injctr 0.75 Mg SC SUN Vascepa (Icosapent Ethyl) 1 Gm Capsule 1 Gm PO BID Flomax (Tamsulosin HCl) 0.4 Mg Cap 0.4 Mg PO DAILY Albuterol Sulfate 2.5 Mg/3 Ml Vial.neb 2.5 Mg NEB UD PRN Acidophilus-Pectin Capsule (Lactobacillus Acidophilus/Pect) 1 Each Capsule 1 Cap PO QID Milk of Magnesia (Magnesium Hydroxide) 400 Mg/5 Ml Oral.susp 30 Ml PO DAILY PRN Levothyroxine Sodium 175 Mcg Tablet 175 Mcg PO DAILY Enalapril Maleate 2.5 Mg Tablet 2.5 Mg PO DAILY Plavix (Clopidogrel Bisulfate) 75 Mg Tablet 75 Mg PO DAILY Mylanta Suspension (Al Hydrox/Mg Hydrox/Simethicone) 30 Ml Oral.susp 30 Ml PO Q4H PRN Melatonin 3 Mg Tablet 3 Mg PO HS Levetiracetam 500 Mg Tablet 500 Mg PO BID Divalproex Sodium 125 Mg Cap.sprink 125 Mg PO TID Aricept (Donepezil HCl) 10 Mg Tablet 10 Mg PO HS Assessment/Pt Instructions Nursing on rounds at [facility] Discharge Planning: <30 minutes discharge planning Discharge Instructions Discharge Diet: No Restrictions Discharge Physical Examination Vital Signs Vital Signs Date Time Temp Pulse Resp B/P (MAP) Pulse Ox O2 Delivery O2 Flow Rate FiO2 12/01/21 09:10 76 12/01/21 09:00 95 Room Air 12/01/21 07:34 36.5 18 126/77 (93) 11/27/21 09:00 Allergies: Coded Allergies: acetaminophen (Verified Allergy, Intermediate, 10/26/17) Discharge Summary Date of Admission Nov 27, 2021 at 00:10 Date of Discharge Discharge Date: Dec 01, 2021 Discharge Diagnosis (1) Coronary artery disease with unstable angina pectoris Assessment & Plan: He had a probable type II non-ST elevation myocardial infarction due to supply/demand mismatch. He is not having any angina. He has known inoperable three-vessel coronary artery disease. Aspirin and clopidogrel are currently on hold due to anemia that required a blood transfusion. I would suggest at least resuming aspirin prior to discharge. I have asked the nurse to check with the hospitalist in regards to whether or not to resume aspirin and/or clopidogrel. Continue beta-jozef and statin medication. Given his chronic debility, I do not see any strong indication to place him on intensive dose statin medication. (2) Primary hypertension Assessment & Plan: Blood pressure has been reasonably controlled with the present medications and these should be continued at the time of discharge. (3) Mixed hyperlipidemia Assessment & Plan: Continue atorvastatin. (4) Peripheral arterial disease Assessment & Plan: He has not been complaining of claudication. Resume aspirin and clopidogrel when able. Continue statin medication. Smoking cessation is of paramount importance. (5) Type 2 diabetes mellitus with complication Assessment & Plan: This is being managed by the hospitalist. (6) Cigarette smoker Assessment & Plan: He needs to quit smoking. He was counseled in this regard. (7) Dementia Status: Chronic Assessment & Plan: He has been on donepezil and memantine. Clinical Quality Measures DVT/VTE Risk/Contraindication: VTE Addressed: Yes ELIA KAT DO Dec 01, 2021 10:16
--- NOTE | 2021-12-01 10:16 | Discharge Inst-Skilled Nursing ---
Discharge Inst-Skilled NF Reconcile Patient Problems Problems Reviewed?: Yes Patient Instructions Patient Problems: Debility Goal: [place] Consult/Follow Up/Orders Follow Up Appt.: assisted rounds by [facility] Skilled NF Admit to: [facility] (SNF) I certify that SNF services are required to be given on an inpatient basis because of the above named patient's need for long term care on a continuing basis for the conditions(s) for which he/she was receiving inpatient hospital services prior to his/her transfer to the SNF. Fdc Facility Order: Nursing Services, Residential Appraiser-Evaluate & Treat, Physical Therapy-Evaluate & Treat, Wound Care-Eval/Treat Oxygen Delivery Method: Room Air Discharge Diet: No Restrictions Resuscitation Status: Full Code New & Resume Previous Orders New Medications: Cefdinir (Cefdinir) 300 Mg Capsule 300 MG PO BID for 5 Days, #10 CAP 0 Refills Continued Medications: Acetaminophen (Tylenol Extra Strength) 500 Mg Tablet 1000 MG PO Q8H PRN for PAIN-MILD (1-4), TAB Albuterol Sulfate (Albuterol Sulfate) 2.5 Mg/3 Ml Vial.neb 2.5 MG NEB UD PRN for SHORTNESS OF BREATH, EA Aspirin (Aspirin EC) 81 Mg Tablet.dr 81 MG PO BID, TAB TAKES TWICE DAILY X 6 WEEKS FOR PROPHYLATIC- START DATE 11-25-2021 Cholecalciferol (Vitamin D3) (Vitamin D3) 125 Mcg (5000 Unit) Capsule 125 MCG PO DAILY, CAP Clonazepam (Clonazepam) 0.5 Mg Tablet 0.5 MG PO 0800,1400, TAB Clonidine HCl (Clonidine HCl) 0.2 Mg Tablet 0.2 MG PO BID, TAB HOLD IF SBP <100 OR PULSE <60 Clopidogrel Bisulfate (Plavix) 75 Mg Tablet 75 MG PO DAILY, TAB Divalproex Sodium (Divalproex Sodium) 125 Mg Cap.sprink 125 MG PO TID, CAP Docusate Sodium (Colace) 100 Mg Capsule 100 MG PO BID, CAP Donepezil HCl (Aricept) 10 Mg Tablet 10 MG PO HS, TAB Dulaglutide (Trulicity) 0.75 Mg/0.5 Ml Pen.injctr 0.75 MG SC SUN, EA Enalapril Maleate (Enalapril Maleate) 2.5 Mg Tablet 2.5 MG PO DAILY, TAB Escitalopram Oxalate (Lexapro) 5 Mg Tablet 5 MG PO DAILY, TAB Ferrous Sulfate (Ferrous Sulfate) 325 Mg Tablet 325 MG PO Q48H, TAB Gabapentin (Neurontin) 300 Mg Capsule 300 MG PO HS, CAP Glucagon HCl (Glucagon Emergency Kit) 1 Mg Vial 1 MG IM UD PRN for HYPOGLYCEMIA, EA GIVE NEEEDED FOR UNRESPONSIVE HYPOGLYCEMIA EVENT, IF REMAINS UNRESPONSIVE AFTER 15 MINUTES MAY GIVE ANOTHER DOSE Icosapent Ethyl (Vascepa) 1 Gm Capsule 1 GM PO BID, CAP Insulin Aspart (Novolog) 100 Unit/Ml Susp 7 UNIT SQ AC, EACH Insulin Detemir (Levemir Flextouch) 100 Unit/Ml (3 Ml) Insuln.pen 15 UNITS SC DAILY, UNITS Lactobacillus Acidophilus/Pect (Acidophilus-Pectin Capsule) 1 Each Capsule 1 CAP PO QID, CAP Lansoprazole (Lansoprazole) 15 Mg Capsule.dr 15 MG PO DAILY, CAP Levetiracetam (Levetiracetam) 500 Mg Tablet 500 MG PO BID, TAB Levothyroxine Sodium (Levothyroxine Sodium) 175 Mcg Tablet 175 MCG PO DAILY, TAB Lorazepam (Ativan) 1 Mg Tablet 1 MG PO Q8H PRN for ANXIETY, TAB Mag Hydrox/Al Hydrox/Simeth (Mylanta Suspension) 30 Ml Oral.susp 30 ML PO Q4H PRN for INDIGESTION, ML Magnesium Hydroxide (Milk of Magnesia) 400 Mg/5 Ml Oral.susp 30 ML PO DAILY PRN for CONSTIPATION-1ST LINE, ML Melatonin (Melatonin) 3 Mg Tablet 3 MG PO HS, TAB Memantine HCl (Memantine HCl) 5 Mg Tablet 5 MG PO HS, TAB Metformin HCl (Metformin HCl) 500 Mg Tablet 500 MG PO BID, TAB Metoprolol Tartrate (Metoprolol Tartrate) 50 Mg Tablet 50 MG PO BID WITH MEALS, TAB HOLD IF BP <110/60 OR PULSE <60 Mirtazapine (Mirtazapine) 15 Mg Tablet 15 MG PO HS, TAB Multivitamin (Multivitamin) 1 Each Tablet 1 EACH PO DAILY, TAB Nicotine (Nicotine Patch) 1 Each Patch.td24 21 MG TD DAILY, PATCH Propylene Glycol (Systane Complete) 0.6 % Drops 1 DROP OU BID, DROPS Simvastatin (Simvastatin) 10 Mg Tablet 10 MG PO HS, TAB Tamsulosin HCl (Flomax) 0.4 Mg Cap 0.4 MG PO DAILY, CAP Thiamine Mononitrate (Vitamin B-1) 100 Mg Tablet 100 MG PO DAILY, TAB Tramadol HCl (Tramadol HCl) 50 Mg Tablet 100 MG PO Q6H PRN for PAIN-MODERATE (5-7), TAB TAKES 2 (50MG) TABS Venlafaxine HCl (Venlafaxine HCl ER) 75 Mg Cap.er.24h 75 MG PO DAILY, CAP Jenelle Fisher Dec 01, 2021 10:15 JENELLE FISHER DO Dec 01, 2021 10:16
[2021-12-01 10:37] VITALS: BP 126/77
== END 2021-12-01 10:37 | DRG 871 ==
LOC: EDUNIT# 22:34 → ER 22:36 → ICU 11-27 00:10 → 4TH 11-27 20:20
PROVIDERS: ADMIT Family Medicine; ATTEND Internal Medicine
DX: A41.9 Sepsis, unspecified organism (principal); G93.41 Metabolic encephalopathy; I21.A1 Myocardial infarction type 2; F01.51 Vascular dementia, unspecified severity, with behavioral disturbance; N39.0 Urinary tract infection, site not specified; E46 Unspecified protein-calorie malnutrition; K86.1 Other chronic pancreatitis; I25.110 Atherosclerotic heart disease of native coronary artery with unstable angina pectoris; Z79.82 Long term (current) use of aspirin; Z79.4 Long term (current) use of insulin; Z79.899 Other long term (current) drug therapy; F17.210 Nicotine dependence, cigarettes, uncomplicated; F32.A Depression, unspecified; F41.9 Anxiety disorder, unspecified; N40.0 Benign prostatic hyperplasia without lower urinary tract symptoms; J44.9 Chronic obstructive pulmonary disease, unspecified; E11.51 Type 2 diabetes mellitus with diabetic peripheral angiopathy without gangrene; M19.90 Unspecified osteoarthritis, unspecified site; Z96.641 Presence of right artificial hip joint; Z95.5 Presence of coronary angioplasty implant and graft; Z86.73 Personal history of transient ischemic attack (TIA), and cerebral infarction without residual deficits; E11.40 Type 2 diabetes mellitus with diabetic neuropathy, unspecified; G40.909 Epilepsy, unspecified, not intractable, without status epilepticus; K21.9 Gastro-esophageal reflux disease without esophagitis; E03.9 Hypothyroidism, unspecified; Z20.822 Contact with and (suspected) exposure to COVID-19; R65.20 Severe sepsis without septic shock; B96.20 Unspecified Escherichia coli [E. coli] as the cause of diseases classified elsewhere; R77.8 Other specified abnormalities of plasma proteins; Z79.84 Long term (current) use of oral hypoglycemic drugs; Z89.422 Acquired absence of other left toe(s); Z89.421 Acquired absence of other right toe(s); I50.9 Heart failure, unspecified; D64.9 Anemia, unspecified; I11.0 Hypertensive heart disease with heart failure; E78.2 Mixed hyperlipidemia; Z68.26 Body mass index [BMI] 26.0-26.9, adult
CPT/HCPCS: 36410; 36415; 36600; 51702; 70450; 71045; 76937; 80048; 80053; 80164; 80306; 80320; 80329; 81000; 82140; 82150; 82274; 82550; 82553; 82728; 82805; 82947; 83540; 83550; 83605; 83690; 83735; 83874; 84145; 84439; 84443; 84484; 85007; 85025; 85027; 85045; 85055; 85610; 85652; 85730; 86141; 86850; 86900; 86901; 86920; 87040; 87077; 87088; 87186; 87636; 93005; 93041; 94760; 96361; 96365

== ENCOUNTER 2021-12-09 18:49 | Emergency (ER) | payer MEDICARE, MEDICAID ==
[~2021-12-09] VITALS: Ht 177.8 cm; Wt 68.0 kg
[~2021-12-09 18:49] MED LIST changes: +ACET-2267 PO; +GLUC1VIA15 IM; +LANS15CA5 PO; +MEMA5TAB43 PO; +METF-397 PO; +MULT-1136 PO; +PROP1.5D OU; +THIA100T68 PO
[2021-12-09] MEDS ORDERED: NS IV 1000 ML 1,000 ML IV SCH (19:15)
[2021-12-09] MEDS ORDERED: fentaNYL INJ 100 MCG/2 ML AMP IVP ONE ×2 (19:30→21:00)
[2021-12-09 19:31] LABS: BASOPHILS # (AUTO) 0.1 10^3/uL (0.0-0.1); BASOPHILS % (AUTO) 1 % (0-10); EOSINOPHILS # (AUTO) 0.1 10^3/uL (0.0-0.3); EOSINOPHILS % (AUTO) 1 % (0-10); HEMATOCRIT 28 % (40-54); HEMOGLOBIN 8.9 g/dL (13.3-17.7); LYMPHOCYTES # (AUTO) 1.5 10^3/uL (1.0-4.0); LYMPHOCYTES % (AUTO) 14 % (12-44); MEAN CORPUSCULAR HEMOGLOBIN 31 pg (25-34); MEAN CORPUSCULAR HGB CONC 32 g/dL (32-36); MEAN CORPUSCULAR VOLUME 96 fL (80-99); MEAN PLATELET VOLUME 9.7 fL (9.0-12.2); MONOCYTES # (AUTO) 0.8 10^3/uL (0.0-1.0); MONOCYTES % (AUTO) 8 % (0-12); NEUTROPHILS # (AUTO) 8.2 10^3/uL (1.8-7.8); NEUTROPHILS % (AUTO) 76 % (42-75); PLATELET COUNT 325 10^3/uL (130-400); WHITE BLOOD COUNT 10.8 10^3/uL (4.3-11.0)
[2021-12-09 19:44] LABS: POTASSIUM 4.9 MMOL/L (3.6-5.0)
--- NOTE | 2021-12-09 19:45 | Diagnostic Imaging Report ---
EXAMINATION: Chest radiograph, portable AP view. DATE: 12/09/2021 7:38 PM INDICATION: 71-year-old male, fall. Chest pain. COMPARISON: November 26, 2021. FINDINGS: Heart size and mediastinal contours are unchanged. There is no identified pneumothorax. There is no large pleural effusion. There is no identified focal airspace consolidation. There are bilateral rib deformities which appear unchanged. IMPRESSION: 1. No identified acute cardiopulmonary abnormality. 2. Bilateral rib deformities which appear similar to the comparison study. Dictated by: Dictated on workstation # [id number]
--- NOTE | 2021-12-09 19:46 | Diagnostic Imaging Report ---
EXAMINATION: Right hip radiograph, 2 views. COMPARISON: August 15, 2019. HISTORY: 71-year-old female, right hip pain. FINDINGS: There is a right total hip prosthesis. There are cerclage wires. There is a displaced right greater trochanteric fracture. The greater trochanteric fracture fragment is superiorly displaced by approximately 1.6 cm. The fracture extends to the level of proximal femoral diaphysis well demonstrated on image 2. This fracture is acute in age. The bones appear likely demineralized. IMPRESSION: Acute comminuted displaced fracture of the right proximal femur involving the greater trochanter extending to the level of the proximal femoral diaphysis. Dictated by: Dictated on workstation # [id number]
[2021-12-09 19:47] LABS: TOTAL PROTEIN 6.3 GM/DL (6.4-8.2)
[2021-12-09 19:48] LABS: BILIRUBIN,TOTAL 0.4 MG/DL (0.1-1.0)
[2021-12-09 19:50] LABS: CREATININE SERUM 1.2 MG/DL (0.60-1.30)
[2021-12-09 19:53] LABS: MAGNESIUM 1.7 MG/DL (1.6-2.4)
--- NOTE | 2021-12-09 20:24 | ED Fall/Injury ---
General Chief Complaint: Trauma-Non Activation Stated Complaint: FALL Nursing Triage Note: PT BROUGHT IN BY [facility] FROM [facility] FOR UNWITNESS FALL. PT WAS OUTSIDE SMOKING IN HIS WHEELCHAIR AND FELL OFF THE CURB AND OUT OF HIS CHAIR. PT COMPLAINING OF RIGHT HIP PAIN. PER NH, PT PREVIOUSLY BROKE HIP ON 11/16. PT IS ALERT. DENIES LOC. HX OF DEMENTIA. Source: patient Exam Limitations: no limitations History of Present Illness Date Seen by Provider: Dec 09, 2021 Time Seen by Provider: 18:50 Initial Comments Patient to the ER by EMS from [facility] with chief complaint that he had an unwitnessed fall just prior to arrival. He was outside smoking is cigarettes in a wheelchair and fell off the curb out of his chair. He denies striking his head. He is only having pain in his right hip. He previously broke his hip on the fifth, 23 days ago. He had a revision of his right hip prosthesis done. He has a history of dementia. He is on antiplatelets but not blood thinners. He has diabetes and is on insulin and had a blood sugar of 170 per EMS. History of seizures, dementia, substance abuse of methadone, alcohol and tobacco. Recently admitted for a UTI. History of esophageal varices with portal hypertension. History of coronary disease status post CABG in the , diabetes, pancreatitis, osteoarthritis, seizure history secondary to CVA, carotid disease. The patient was sent to [facility] in [facility] 3 weeks ago for revision of his joint. Allergies and Home Medications Allergies Coded Allergies: acetaminophen (Verified Allergy, Intermediate, 10/26/17) Patient Home Medication List Home Medication List Reviewed: Yes Acetaminophen (Tylenol Extra Strength) 500 Mg Tablet, 1,000 MG PO Q8H PRN for PAIN-MILD (1-4), (Reported) Entered as Reported by: MURTAZA CRUM on 11/27/21 1456 Albuterol Sulfate (Albuterol Sulfate) 2.5 Mg/3 Ml Vial.neb, 2.5 MG NEB UD PRN for SHORTNESS OF BREATH, (Reported) Entered as Reported by: AMMY PALAFOX on 12/08/18 1448 Aspirin (Aspirin EC) 81 Mg Tablet.dr, 81 MG PO BID, (Reported) Entered as Reported by: MURTAZA CRUM on 11/27/21 1456 Cefdinir (Cefdinir) 300 Mg Capsule, 300 MG PO BID Prescribed by: CLARIBEL RAMEY on 11/30/21 1343 Cholecalciferol (Vitamin D3) (Vitamin D3) 125 Mcg (5000 Unit) Capsule, 125 MCG PO DAILY, (Reported) Entered as Reported by: MURTAZA CRUM on 12/21/19 1616 Clonazepam (Clonazepam) 0.5 Mg Tablet, 0.5 MG PO 0800,1400, (Reported) Entered as Reported by: MURTAZA CRUM on 11/27/21 1456 Clonidine HCl (Clonidine HCl) 0.2 Mg Tablet, 0.2 MG PO BID, (Reported) Entered as Reported by: SAIMA HAMPTON on 07/04/20 1115 Clopidogrel Bisulfate (Plavix) 75 Mg Tablet, 75 MG PO DAILY, (Reported) Entered as Reported by: AMMY PALAFOX on 03/05/17 09 Divalproex Sodium (Divalproex Sodium) 125 Mg Cap.sprink, 125 MG PO TID, (Reported) Entered as Reported by: AMMY PALAFOX on 03/05/17 09 Docusate Sodium (Colace) 100 Mg Capsule, 100 MG PO BID, (Reported) Entered as Reported by: MURTAZA CRUM on 12/21/19 161 Donepezil HCl (Aricept) 10 Mg Tablet, 10 MG PO HS, (Reported) Entered as Reported by: AMMY PALAFOX on 03/05/17 09 Dulaglutide (Trulicity) 0.75 Mg/0.5 Ml Pen.injctr, 0.75 MG SC SUN, (Reported) Entered as Reported by: AMMY PALAFOX on 12/08/18 1448 Enalapril Maleate (Enalapril Maleate) 2.5 Mg Tablet, 2.5 MG PO DAILY, (Reported) Entered as Reported by: AMMY PALAFOX on 03/05/17 09 Escitalopram Oxalate (Lexapro) 5 Mg Tablet, 5 MG PO DAILY, (Reported) Entered as Reported by: PHILLY HENRY on 08/31/20 0907 Ferrous Sulfate (Ferrous Sulfate) 325 Mg Tablet, 325 MG PO Q48H, (Reported) Entered as Reported by: MURTAZA CRUM on 12/21/19 1616 Gabapentin (Neurontin) 300 Mg Capsule, 300 MG PO HS, (Reported) Entered as Reported by: MURTAZA CRUM on 12/21/19 161 Glucagon HCl (Glucagon Emergency Kit) 1 Mg Vial, 1 MG IM UD PRN for HYP OGLYCEMIA, (Reported) Entered as Reported by: MURTAZA CRUM on 11/27/21 1456 Icosapent Ethyl (Vascepa) 1 Gm Capsule, 1 GM PO BID, (Reported) Entered as Reported by: AMMY PALAFOX on 12/08/18 1448 Insulin Aspart (Novolog) 100 Unit/Ml Susp, 7 UNIT SQ AC, (Reported) Entered as Reported by: SAIMA HAMPTON on 04/29/19 0816 Insulin Detemir (Levemir Flextouch) 100 Unit/Ml (3 Ml) Insuln.pen, 15 UNITS SC DAILY, (Reported) Entered as Reported by: MURTAZA CRUM on 12/21/19 161 Lactobacillus Acidophilus/Pect (Acidophilus-Pectin Capsule) 1 Each Capsule, 1 CAP PO QID, (Reported) Entered as Reported by: AMMY PALAFOX on 12/08/18 1448 Lansoprazole (Lansoprazole) 15 Mg Capsule.dr, 15 MG PO DAILY, (Reported) Entered as Reported by: MURTAZA CRUM on 11/27/21 145 Levetiracetam (Levetiracetam) 500 Mg Tablet, 500 MG PO BID, (Reported) Entered as Reported by: AMMY PALAFOX on 03/05/17 0918 Levothyroxine Sodium (Levothyroxine Sodium) 175 Mcg Tablet, 175 MCG PO DAILY, (Reported) Entered as Reported by: YUSEF CHRISTIAN on 10/26/17 1356 Lorazepam (Ativan) 1 Mg Tablet, 1 MG PO Q8H PRN for ANXIETY, (Reported) Entered as Reported by: MURTAZA CRUM on 11/27/21 1456 Mag Hydrox/Al Hydrox/Simeth (Mylanta Suspension) 30 Ml Oral.susp, 30 ML PO Q4H PRN for INDIGESTION, (Reported) Entered as Reported by: AMMY PALAFOX on 03/05/17 0918 Magnesium Hydroxide (Milk of Magnesia) 400 Mg/5 Ml Oral.susp, 30 ML PO DAILY PRN for CONSTIPATION-1ST LINE, (Reported) Entered as Reported by: AMMY PALAFOX on 02/25/18 0933 Melatonin (Melatonin) 3 Mg Tablet, 3 MG PO HS, (Reported) Entered as Reported by: AMMY PALAFOX on 03/05/17 0918 Memantine HCl (Memantine HCl) 5 Mg Tablet, 5 MG PO HS, (Reported) Entered as Reported by: MURTAZA CRUM on 11/27/21 145 Metformin HCl (Metformin HCl) 500 Mg Tablet, 500 MG PO BID, (Reported) Entered as Reported by: MURTAZA CRUM on 11/27/21 145 Metoprolol Tartrate (Metoprolol Tartrate) 50 Mg Tablet, 50 MG PO BID WITH MEALS, (Reported) Entered as Reported by: SAIMA HAMPTON on 07/04/20 111 Mirtazapine (Mirtazapine) 15 Mg Tablet, 15 MG PO HS, (Reported) Entered as Reported by: SAIMA HAMPTON on 07/04/20 111 Multivitamin (Multivitamin) 1 Each Tablet, 1 EACH PO DAILY, (Reported) Entered as Reported by: MURTAZA CRUM on 11/27/21 145 Nicotine (Nicotine Patch) 1 Each Patch.td24, 21 MG TD DAILY, (Reported) Entered as Reported by: PHILLY HENRY on 08/31/20 09 Propylene Glycol (Systane Complete) 0.6 % Drops, 1 DROP OU BID, (Reported) Entered as Reported by: MURTAZA CRUM on 11/27/21 145 Simvastatin (Simvastatin) 10 Mg Tablet, 10 MG PO HS, (Reported) Entered as Reported by: MURTAZA CRUM on 11/27/21 145 Tamsulosin HCl (Flomax) 0.4 Mg Cap, 0.4 MG PO DAILY, (Reported) Entered as Reported by: AMMY PALAFOX on 12/08/18 1448 Thiamine Mononitrate (Vitamin B-1) 100 Mg Tablet, 100 MG PO DAILY, (Reported) Entered as Reported by: MURTAZA CRUM on 11/27/21 145 Tramadol HCl (Tramadol HCl) 50 Mg Tablet, 100 MG PO Q6H PRN for PAIN-MODERATE (5-7), (Reported) Entered as Reported by: PHILLY HENRY on 08/31/20 0907 Venlafaxine HCl (Venlafaxine HCl ER) 75 Mg Cap.er.24h, 75 MG PO DAILY, (Reported) Entered as Reported by: SAIMA HAMPTON on 07/04/20 1115 Review of Systems Review of Systems Constitutional: No chills, No diaphoresis Eyes: Denies Blindness, Denies Drainage Ears, Nose, Mouth, Throat: denies ear pain, denies nose pain Respiratory: No cough, No phlegm Cardiovascular: No chest pain, No edema Gastrointestinal: No abdominal pain, No nausea Genitourinary: No discharge, No dysuria Musculoskeletal: No back pain, No joint pain Skin: No pruritus, No rash All Other Systems Reviewed Negative Unless Noted: Yes Past Fqipyvb-Fxhefe-Vdrdoq Hx Patient Social History Tobacco Use?: Yes Tobacco type used: Cigarettes Smoking Status: Current Everyday Smoker Use of E-Cig and/or Vaping dev: No Substance use?: No Alcohol Use?: No Pt feels they are or have been: No Immunizations Up To Date Tetanus Booster (TDap): Unknown PED Vaccines UTD: Yes First/Initial COVID19 Vaccinat: 04/27/20 Second COVID19 Vaccination Joaquin: 05/18/20 Third COVID19 Vaccination Date: 03/14/21 Seasonal Allergies Seasonal Allergies: No Past Medical History Surgery/Hospitalization HX: HTN,DEMENTIA,DEPRESSION, ANXIETY, DM 2 NOW INSULIN DEPENDENT, SEIZURES, BPH, COPD, PVD, ANEMIA ,ARTHRITIS RIGHT FEMUR FX, RIGHT HIP REPLACEMENT Surgeries: Yes (KNEE SX; BACK-DISCECTOMY/FUSIONS;TOE AMPUTATION;L EYE CATARACT 09/01/20) Amputation, Cardiac, Coronary Stent, Eye Surgery, Orthopedic, Tracheostomy Respiratory: Yes (HX OF RESP. FAILURE WITH TRACH/LATER REMOVED) COPD Cardiac: Yes (STENT IN ; SEVERE MULTIVESSEL CAD--INOPERABLE) Angina, Coronary Artery Disease, High Cholesterol, Hypertension, Peripheral Vascular Neurological: Yes (VASCULAR DEMENTIA W/BEHAVIOR DISTURBANCE;PSEUDOBULBAR AFFECT;CVA R FRONTAL) Dementia, Neuropathy, Seizure Disorder, Stroke Reproductive Disorders: No Genitourinary: No Gastrointestinal: Yes (CHRONIC PANCREATITIS/HX OF HEMORRHAGIC PANCREATITIS;SPLENOMEGALY) Gastroesophageal Reflux, Pancreatitis, Esophageal Varices Musculoskeletal: Yes ( CHRONIC PAIN;MULTIPLE TOE AMPUTATIONS;OSTEOMYELITIS;R HIP FX;L FEMUR FX) Amputee, Degenerate Disk Disease, Arthritis, Chronic Back Pain, Fractures Endocrine: Yes Diabetes, Insulin dep, Hypothyroidsim HEENT: Yes Cataract Cancer: No Psychosocial: Yes (DEMENTIA WITH BEHAVIOR DISTURBANCE;HX OF POLYSUBSTANCE ABUSE) Anxiety, Depression Integumentary: Yes (OSTEOMYELITIS/CELLULITIS OF TOES/FEET;CHRONIC FOOT ULCERS) Blood Disorders: No Family Medical History Cardiovascular disease 19 FATHER 19 MOTHER Diabetes mellitus G8 BROTHER FH: cancer Thyroid disease 19 MOTHER (HYPOTHYROIDISM) No Pertinent Family Hx SOCIAL HISTORY: -ETOH--HX OF ABUSE -DRUGS-HX OF METHADONE USE/ABUSE -SMOKES 2 PPD PAST SURGICAL HISTORY: -RIGHT CATARACT SURGERY 08/2020 -LEFT CATARACT SURGERY 06/2020 -RIGHT HIP FRACTURE 08/09/19--TRANSFERRED TO [facility] -RIGHT GREAT TOE AND 3RD TOE AMPUTATION DUE TO OPEN FRACTURE OF 3RD TOE AND OSTEOMYELITIS 12/[address] ALICEA -AMPUTATIONS OF RIGHT 2ND AND 4TH TOES -AMPUTATIONS OF LEFT GREAT AND SECOND TOES -RIGHT KNEE SURGERY X 4 -BACK SURGERIES--DISCECTOMY/FUSIONS -CARDIAC CATH WITH STENT -CHOLECYSTECTOMY -STENT PLACEMENT IN PANCREAS WITH REMOVAL OF PSEUDOCYST -TRACHEOSTOMY WITH LATER REMOVAL -RIGHT 4TH TOE RAY AMPUTATION 09/11/13 DR. ABDULLAHI BUCKLEY -CARDIAC CATH 12/[address] BEARDEN--MULTI-VESSEL DISEASE/INOPERABLE -11/16/21--FRACTURE OF PROSTHETIC RIGHT HIP/TRANSFERRED TO [facility] AND HAD SURGICAL REPAIR AT THAT TIME. LONG HISTORY OF EXTREME NON-COMPLIANCE IN ALL ASPECTS OF CARE Physical Exam Vital Signs Vital Signs - First Documented 12/09/21 18:50 Pulse 66 Resp 17 B/P (MAP) 117/72 (87) Pulse Ox 95 O2 Delivery Room Air Capillary Refill : Less Than 3 Seconds Height, Weight, BMI Height: 5'10.00" Weight: 180lbs. 0.0oz. 81.543298ve; 21.00 BMI Method:Stated General Appearance: WD/WN, no apparent distress HEENT: PERRL/EOMI, normal ENT inspection, pharynx normal Neck: full range of motion, supple, normal inspection Cardiovascular: normal peripheral pulses, regular rate, rhythm Respiratory: lungs clear, normal breath sounds, no respiratory distress, no accessory muscle use Peripheral Pulses: 2+ Radial Pulses (R), 2+ Radial Pulses (L) Gastrointestinal: normal bowel sounds, non tender, soft Extremities: normal range of motion, non-tender, normal capillary refill Neurologic/Psychiatric: alert, normal mood/affect, oriented x 3 Skin: normal color, warm/dry Jyothi Coma Score Best Eye Response: (4) Open Spontaneously Best Verbal Response: (5) Oriented Best Motor Response: (6) Obeys Commands [place] Total: 15 Progress/Results/Core Measures Results/Orders Lab Results Laboratory Tests Test 12/09/21 19:25 Range/Units White Blood Count 10.8 4.3-11.0 10^3/uL Red Blood Count 2.90 L 4.30-5.52 10^6/uL Hemoglobin 8.9 L 13.3-17.7 g/dL Hematocrit 28 L 40-54 % Mean Corpuscular Volume 96 80-99 fL Mean Corpuscular Hemoglobin 31 25-34 pg Mean Corpuscular Hemoglobin Concent 32 32-36 g/dL Red Cell Distribution Width 14.8 H 10.0-14.5 % Platelet Count 325 130-400 10^3/uL Mean Platelet Volume 9.7 9.0-12.2 fL Immature Granulocyte % (Auto) 1 % Neutrophils (%) (Auto) 76 H 42-75 % Lymphocytes (%) (Auto) 14 12-44 % Monocytes (%) (Auto) 8 0-12 % Eosinophils (%) (Auto) 1 0-10 % Basophils (%) (Auto) 1 0-10 % Neutrophils # (Auto) 8.2 H 1.8-7.8 10^3/uL Lymphocytes # (Auto) 1.5 1.0-4.0 10^3/uL Monocytes # (Auto) 0.8 0.0-1.0 10^3/uL Eosinophils # (Auto) 0.1 0.0-0.3 10^3/uL Basophils # (Auto) 0.1 0.0-0.1 10^3/uL Immature Granulocyte # (Auto) 0.1 0.0-0.1 10^3/uL Sodium Level 137 135-145 MMOL/L Potassium Level 4.9 3.6-5.0 MMOL/L Chloride Level 100 98-107 MMOL/L Carbon Dioxide Level 25 21-32 MMOL/L Anion Gap 12 5-14 MMOL/L Blood Urea Nitrogen 29 H 7-18 MG/DL Creatinine 1.20 0.60-1.30 MG/DL Estimat Glomerular Filtration Rate 65 BUN/Creatinine Ratio 24 Glucose Level 88 70-105 MG/DL Calcium Level 9.0 8.5-10.1 MG/DL Corrected Calcium 9.8 8.5-10.1 MG/DL Magnesium Level 1.7 1.6-2.4 MG/DL Total Bilirubin 0.4 0.1-1.0 MG/DL Aspartate Amino Transf (AST/SGOT) 27 5-34 U/L Alanine Aminotransferase (ALT/SGPT) 17 0-55 U/L Alkaline Phosphatase 166 H 40-136 U/L C-Reactive Protein High Sensitivity 7.48 H 0.00-0.50 MG/DL Total Protein 6.3 L 6.4-8.2 GM/DL Albumin 3.0 L 3.2-4.5 GM/DL My Orders Orders - JV COLE Chest 1 View, Ap/Pa Only (12/09/21 19:03) Hip, Right, 2 Views (12/09/21 19:03) Cbc With Automated Diff (12/09/21 19:03) Comprehensive Metabolic Panel (12/09/21 19:03) Magnesium (12/09/21 19:03) Hs C Reactive Protein (12/09/21 19:03) Ed Iv/Invasive Line Start (12/09/21 19:03) Ns Iv 1000 Ml (Sodium Chloride 0.9%) (12/09/21 19:15) Fentanyl Inj (Sublimaze Injection) (12/09/21 19:30) Fentanyl Inj (Sublimaze Injection) (12/09/21 21:00) Ed Iv/Invasive Line Start (12/09/21 21:00) Ns Iv 500 Ml (Sodium Chloride 0.9%) (12/09/21 21:00) Medications Given in ED Current Medications Medications Dose Ordered Sig/Manuel Route Start Time Stop Time Status Last Admin Dose Admin Fentanyl Citrate 50 mcg ONCE ONCE IVP 12/09/21 19:30 12/09/21 19:31 DC 12/09/21 19:32 50 MCG Fentanyl Citrate 50 mcg ONCE ONCE IVP 12/09/21 21:00 12/09/21 21:01 DC 12/09/21 21:11 50 MCG Sodium Chloride 500 ml @ 0 mls/hr Q0M ONCE IV 12/09/21 21:00 12/09/21 21:01 DC 12/09/21 21:10 0 MLS/HR Vital Signs/I&O 12/09/21 18:50 Pulse 66 Resp 17 B/P (MAP) 117/72 (87) Pulse Ox 95 O2 Delivery Room Air Blood Pressure Mean: 87 Progress Progress Note #1: Time: 20:23 Progress Note 50 mg of fentanyl, x-ray of the right hip and a liter of fluids as he appears to be dehydrated. This could have contributed to his fall. 2039: Called [facility] at [facility] and requested to speak to the on-call orthopedics to review imaging. Imaging was clouded. Progress Note #2: Time: 23:14 Progress Note Discussed the case with Dr. Smith, orthopedic surgeon on-call at [facility] in [place], [place]. At this time the patient can have touchdown weightbearing and follow-up in the clinic. They will reach out to him tomorrow to get him a closer appointment. Diagnostic Imaging Diagonstic Imaging: Xray Plain Films/CT/US/NM/MRI: hip (r) Comments [facility], [place] NAME: JOLLY MANZANARES [facility] REC#: [id number] PT STATUS: REG ER : 1950 PHYSICIAN: JV COLE MD ADMIT DATE: 12/09/21/ER Signed Date of Exam:12/09/21 HIP, RIGHT, 2 VIEWS EXAMINATION: Right hip radiograph, 2 views. COMPARISON: August 15, 2019. HISTORY: 71-year-old female, right hip pain. FINDINGS: There is a right total hip prosthesis. There are cerclage wires. There is a displaced right greater trochanteric fracture. The greater trochanteric fracture fragment is superiorly displaced by approximately 1.6 cm. The fracture extends to the level of proximal femoral diaphysis well demonstrated on image 2. This fracture is acute in age. The bones appear likely demineralized. IMPRESSION: Acute comminuted displaced fracture of the right proximal femur involving the greater trochanter extending to the level of the proximal femoral diaphysis. Dictated by: Dictated on workstation # [id number] Dict: 12/09/211941 Trans: 12/09/211946 [facility] [id number] Interpreted by: ASHLIE SAMSON MD Electronically signed by: ASHLIE SAMSON MD 12/09/21 1947 Reviewed: Reviewed by Me Consults : Consulting Physician: STEPHANY DAIGLE MD Consults Notes Discussed the case with Dr. Daigle, orthopedics. He is not on a percent certain that this has to be dealt with immediately but would be reasonable to compare to imaging at [facility] so he recommends waiting call the on-call orthopedics at [facility] and see what they say after they review imaging. Departure Impression Primary Impression: Periprosthetic fracture around internal prosthetic right hip joint Qualified Codes: M97.01XA - Periprosthetic fracture around internal prosthetic right hip joint, initial encounter Disposition: HOME, SELF-CARE Condition: Stable Departure-Patient Inst. Decision time for Depature: 23:15 Referrals: JOLLY DELANEY MD (PCP/Family) Primary Care Physician Patient Instructions: Hip Fracture (DC) Add. Discharge Instructions: You may use the wheelchair and do touchdown weightbearing. This means you can put your foot on the ground but you are not allowed to bear any weight with it. [place] 1 or 2 tablets every 6 hours as needed for pain. Reach out to orthopedics at [facility] for a closer follow-up appointment in the clinic. All discharge instructions reviewed with patient and/or family. Voiced understanding. Scripts Hydrocodone/Acetaminophen (Hydrocodone-Acetamin 5-325 mg) 5 Mg-325 Mg Tablet 1-2 TAB PO Q6H PRN for PAIN-MODERATE (5-7), #30 TAB 0 Refills Prov: JV COLE 12/09/21 Copy Copies To 1: JOLLY DELANEY MD, TITUS J Dec 09, 2021 20:24
[2021-12-09] MEDS ORDERED: NS IV 500 ML 500 ML IV ONE (21:00)
[2021-12-09] MEDS ORDERED: ACHD5005 PO (23:17)
[2021-12-09] MEDS ORDERED: HYDROcodone/APAP 5 MG/325 MG (LORTAB) TAB PO ONE (23:30)
[2021-12-09 23:47] VITALS: BP 113/79
== END 2021-12-09 23:47 | disposition home or self-care (01) ==
LOC: EDUNIT# 18:49 → ER 18:50
DX: M97.01XA Periprosthetic fracture around internal prosthetic right hip joint, initial encounter (principal); E11.9 Type 2 diabetes mellitus without complications; F17.210 Nicotine dependence, cigarettes, uncomplicated; Z79.4 Long term (current) use of insulin; Z88.6 Allergy status to analgesic agent; V00.811A Fall from moving wheelchair (powered), initial encounter
CPT/HCPCS: 36415; 71045; 73502; 80053; 83735; 85025; 86141

== ENCOUNTER 2022-01-11 13:06 | Emergency (ER) | payer MEDICARE, MEDICAID ==
[~2022-01-11] VITALS: Ht 177 cm; Wt 73.0 kg
[~2022-01-11 13:06] MED LIST changes: +ACHD5005 PO
--- NOTE | 2022-01-11 14:26 | ED Trauma-Multisystem ---
General Chief Complaint: Trauma-Non Activation Stated Complaint: FALL Nursing Triage Note: PT TO [facility] BY [facility] WITH CC OF A FALL WHILE TRANSFERING HIMSELF FROM W/C TO BED, HX OF FX RT HIP WITH REPAIR THEN FX AGAIN, STAFF WORRIED HE MAY HAVE MADE THE FX WORSE, TOLD HIM THAT THEY WOULD NOT REPAIR IT AGAIN. PT FROM [facility]. PT STATES LT HEEL PAIN AND RT HIP PAIN History of Present Illness Date Seen by Provider: Jan 11, 2022 Time Seen by Provider: 14:25 Initial Comments Patient comes to the emergency department via EMS for fall while transferring himself from wheelchair to bed. Was seen recently and diagnosed with hip fracture. Had a hip revision in the past few months. Was told that they would not do additional repair on fracture. Was seen here about a month ago for the same complaint. Patient currently denies complaints to me at this time. group home staff is concerned that he could have reinjured his hip. Occurred: Just Prior to Arrival Severity: Mild Method of Injury: Fall Loss of Consciousness: No Loss of Consciousness Associated Symptoms (Fall): Denies Symptoms Allergies and Home Medications Allergies Coded Allergies: acetaminophen (Verified Allergy, Intermediate, 10/26/17) Patient Home Medication List Home Medication List Reviewed: Yes Acetaminophen (Tylenol Extra Strength) 500 Mg Tablet, 1,000 MG PO Q8H PRN for PAIN-MILD (1-4), (Reported) Entered as Reported by: MURTAZA CRUM on 11/27/21 1456 Albuterol Sulfate (Albuterol Sulfate) 2.5 Mg/3 Ml Vial.neb, 2.5 MG NEB UD PRN for SHORTNESS OF BREATH, (Reported) Entered as Reported by: AMMY PALAFOX on 12/08/18 1448 Aspirin (Aspirin EC) 81 Mg Tablet., 81 MG PO BID, (Reported) Entered as Reported by: MURTAZA CRUM on 11/27/21 1456 Cefdinir (Cefdinir) 300 Mg Capsule, 300 MG PO BID Prescribed by: CLARIBEL RAMEY on 11/30/21 1343 Cholecalciferol (Vitamin D3) (Vitamin D3) 125 Mcg (5000 Unit) Capsule, 125 MCG PO DAILY, (Reported) Entered as Reported by: MURTAZA CRUM on 12/21/19 1616 Clonazepam (Clonazepam) 0.5 Mg Tablet, 0.5 MG PO 0800,1400, (Reported) Entered as Reported by: MURTAZA CRUM on 11/27/21 1456 Clonidine HCl (Clonidine HCl) 0.2 Mg Tablet, 0.2 MG PO BID, (Reported) Entered as Reported by: SAIMA HAMPTON on 07/04/20 1115 Clopidogrel Bisulfate (Plavix) 75 Mg Tablet, 75 MG PO DAILY, (Reported) Entered as Reported by: AMMY PALAFOX on 03/05/17 09 Divalproex Sodium (Divalproex Sodium) 125 Mg Cap.sprink, 125 MG PO TID, (Reported) Entered as Reported by: AMMY PALAFOX on 03/05/17 09 Docusate Sodium (Colace) 100 Mg Capsule, 100 MG PO BID, (Reported) Entered as Reported by: MURTAZA CRUM on 12/21/19 161 Donepezil HCl (Aricept) 10 Mg Tablet, 10 MG PO HS, (Reported) Entered as Reported by: AMMY PALAFOX on 03/05/17 09 Dulaglutide (Trulicity) 0.75 Mg/0.5 Ml Pen.injctr, 0.75 MG SC SUN, (Reported) Entered as Reported by: AMMY PALAFOX on 12/08/18 1448 Enalapril Maleate (Enalapril Maleate) 2.5 Mg Tablet, 2.5 MG PO DAILY, (Reported) Entered as Reported by: AMMY PALAFOX on 03/05/17 09 Escitalopram Oxalate (Lexapro) 5 Mg Tablet, 5 MG PO DAILY, (Reported) Entered as Reported by: PHILLY HENRY on 08/31/20 0907 Ferrous Sulfate (Ferrous Sulfate) 325 Mg Tablet, 325 MG PO Q48H, (Reported) Entered as Reported by: MURTAZA CRUM on 12/21/19 161 Gabapentin (Neurontin) 300 Mg Capsule, 300 MG PO HS, (Reported) Entered as Reported by: MURTAZA CRUM on 12/21/19 161 Glucagon HCl (Glucagon Emergency Kit) 1 Mg Vial, 1 MG IM UD PRN for HYPOGLYCEMIA, (Reported) Entered as Reported by: MURTAZA CRUM on 11/27/21 1456 Hydrocodone/Acetaminophen (Hydrocodone-Acetamin 5-325 mg) 5 Mg-325 Mg Tablet, 1- 2 TAB PO Q6H PRN for PAIN-MODERATE (5-7) Prescribed by: JV COLE on 12/09/21 2318 Icosapent Ethyl (Vascepa) 1 Gm Capsule, 1 GM PO BID, (Reported) Entered as Reported by: AMMY PALAFOX on 12/08/18 1448 Insulin Aspart (Novolog) 100 Unit/Ml Susp, 7 UNIT SQ AC, (Reported) Entered as Reported by: SAIMA HAMPTON on 04/29/19 0816 Insulin Detemir (Levemir Flextouch) 100 Unit/Ml (3 Ml) Insuln.pen, 15 UNITS SC DAILY, (Reported) Entered as Reported by: MURTAZA CRUM on 12/21/19 1616 Lactobacillus Acidophilus/Pect (Acidophilus-Pectin Capsule) 1 Each Capsule, 1 CAP PO QID, (Reported) Entered as Reported by: AMMY PALAFOX on 12/08/18 1448 Lansoprazole (Lansoprazole) 15 Mg Capsule.dr, 15 MG PO DAILY, (Reported) Entered as Reported by: MURTAZA CRUM on 11/27/21 1456 Levetiracetam (Levetiracetam) 500 Mg Tablet, 500 MG PO BID, (Reported) Entered as Reported by: AMMY PALAFOX on 03/05/17 0918 Levothyroxine Sodium (Levothyroxine Sodium) 175 Mcg Tablet, 175 MCG PO DAILY, (Reported) Entered as Reported by: YUSEF CHRISTIAN on 10/26/17 1356 Lorazepam (Ativan) 1 Mg Tablet, 1 MG PO Q8H PRN for ANXIETY, (Reported) Entered as Reported by: MURTAZA CRUM on 11/27/21 1456 Mag Hydrox/Al Hydrox/Simeth (Mylanta Suspension) 30 Ml Oral.susp, 30 ML PO Q4H PRN for INDIGESTION, (Reported) Entered as Reported by: AMMY PALAFOX on 03/05/17 0918 Magnesium Hydroxide (Milk of Magnesia) 400 Mg/5 Ml Oral.susp, 30 ML PO DAILY PRN for CONSTIPATION-1ST LINE, (Reported) Entered as Reported by: AMMY PALAFOX on 02/25/18 0933 Melatonin (Melatonin) 3 Mg Tablet, 3 MG PO HS, (Reported) Entered as Reported by: AMMY PALAFOX on 03/05/17 0918 Memantine HCl (Memantine HCl) 5 Mg Tablet, 5 MG PO HS, (Reported) Entered as Reported by: MURTAZA CRUM on 11/27/21 145 Metformin HCl (Metformin HCl) 500 Mg Tablet, 500 MG PO BID, (Reported) Entered as Reported by: MURTAZA CRUM on 11/27/21 145 Metoprolol Tartrate (Metoprolol Tartrate) 50 Mg Tablet, 50 MG PO BID WITH MEALS, (Reported) Entered as Reported by: SAIMA HAMPTON on 07/04/20 1115 Mirtazapine (Mirtazapine) 15 Mg Tablet, 15 MG PO HS, (Reported) Entered as Reported by: SAIMA HAMPTON on 07/04/20 1115 Multivitamin (Multivitamin) 1 Each Tablet, 1 EACH PO DAILY, (Reported) Entered as Reported by: MURTAZA CRUM on 11/27/21 145 Nicotine (Nicotine Patch) 1 Each Patch.td24, 21 MG TD DAILY, (Reported) Entered as Reported by: PHILLY HENRY on 08/31/20 0907 Propylene Glycol (Systane Complete) 0.6 % Drops, 1 DROP OU BID, (Reported) Entered as Reported by: MURTAZA CRUM on 11/27/21 145 Simvastatin (Simvastatin) 10 Mg Tablet, 10 MG PO HS, (Reported) Entered as Reported by: MURTAZA CRUM on 11/27/21 145 Tamsulosin HCl (Flomax) 0.4 Mg Cap, 0.4 MG PO DAILY, (Reported) Entered as Reported by: AMMY PALAFOX on 12/08/18 1448 Thiamine Mononitrate (Vitamin B-1) 100 Mg Tablet, 100 MG PO DAILY, (Reported) Entered as Reported by: MURTAZA CRUM on 11/27/21 145 Tramadol HCl (Tramadol HCl) 50 Mg Tablet, 100 MG PO Q6H PRN for PAIN-MODERATE (5-7), (Reported) Entered as Reported by: PHILLY HENRY on 08/31/20 0907 Venlafaxine HCl (Venlafaxine HCl ER) 75 Mg Cap.er.24h, 75 MG PO DAILY, (Reported) Entered as Reported by: SAIMA HAMPTON on 07/04/20 1115 Review of Systems Review of Systems Constitutional: no symptoms reported Eyes: No Symptoms Reported Respiratory: no symptoms reported Cardiovascular: No Symptoms Reported Genitourinary: no symptoms reported Musculoskeletal: joint pain (possible right hip pain) Skin: no symptoms reported All Other Systems Reviewed Negative Unless Noted: Yes Past Yiaoosh-Rhcnra-Rkartw Hx Patient Social History Tobacco Use?: Yes Tobacco type used: Cigarettes Smoking Status: Current Everyday Smoker Substance use?: No Alcohol Use?: No Immunizations Up To Date Tetanus Booster (TDap): Unknown PED Vaccines UTD: Yes First/Initial COVID19 Vaccinat: 04/27/20 Second COVID19 Vaccination Joaquin: 05/18/20 Third COVID19 Vaccination Date: 03/14/21 Seasonal Allergies Seasonal Allergies: No Past Medical History Surgery/Hospitalization HX: HTN,DEMENTIA,DEPRESSION, ANXIETY, DM 2 NOW INSULIN DEPENDENT, SEIZURES, BPH, COPD, PVD, ANEMIA ,ARTHRITIS RIGHT FEMUR FX, RIGHT HIP REPLACEMENT Surgeries: Yes (KNEE SX; BACK-DISCECTOMY/FUSIONS;TOE AMPUTATION;L EYE CATARACT 09/01/20) Amputation, Cardiac, Coronary Stent, Eye Surgery, Orthopedic, Tracheostomy Respiratory: Yes (HX OF RESP. FAILURE WITH TRACH/LATER REMOVED) COPD Cardiac: Yes (STENT IN ; SEVERE MULTIVESSEL CAD--INOPERABLE) Angina, Coronary Artery Disease, High Cholesterol, Hypertension, Peripheral Vascular Neurological: Yes (VASCULAR DEMENTIA W/BEHAVIOR DISTURBANCE;PSEUDOBULBAR AFFECT;CVA R FRONTAL) Dementia, Neuropathy, Seizure Disorder, Stroke Reproductive Disorders: No Genitourinary: No Gastrointestinal: Yes (CHRONIC PANCREATITIS/HX OF HEMORRHAGIC PANCREATITIS;SPLENOMEGALY) Gastroesophageal Reflux, Pancreatitis, Esophageal Varices Musculoskeletal: Yes ( CHRONIC PAIN;MULTIPLE TOE AMPUTATIONS;OSTEOMYELITIS;R HIP FX;L FEMUR FX) Amputee, Degenerate Disk Disease, Arthritis, Chronic Back Pain, Fractures Endocrine: Yes Diabetes, Insulin dep, Hypothyroidsim HEENT: Yes Cataract Cancer: No Psychosocial: Yes (DEMENTIA WITH BEHAVIOR DISTURBANCE;HX OF POLYSUBSTANCE ABUSE) Anxiety, Depression Integumentary: Yes (OSTEOMYELITIS/CELLULITIS OF TOES/FEET;CHRONIC FOOT ULCERS) Blood Disorders: No Family Medical History Reviewed Nursing Family Hx Cardiovascular disease 19 FATHER 19 MOTHER Diabetes mellitus G8 BROTHER FH: cancer Thyroid disease 19 MOTHER (HYPOTHYROIDISM) No Pertinent Family Hx SOCIAL HISTORY: -ETOH--HX OF ABUSE -DRUGS-HX OF METHADONE USE/ABUSE -SMOKES 2 PPD PAST SURGICAL HISTORY: -RIGHT CATARACT SURGERY 08/2020 -LEFT CATARACT SURGERY 06/2020 -RIGHT HIP FRACTURE 08/09/19--TRANSFERRED TO [facility] -RIGHT GREAT TOE AND 3RD TOE AMPUTATION DUE TO OPEN FRACTURE OF 3RD TOE AND OSTEOMYELITIS 12/[address] ALICEA -AMPUTATIONS OF RIGHT 2ND AND 4TH TOES -AMPUTATIONS OF LEFT GREAT AND SECOND TOES -RIGHT KNEE SURGERY X 4 -BACK SURGERIES--DISCECTOMY/FUSIONS -CARDIAC CATH WITH STENT -CHOLECYSTECTOMY -STENT PLACEMENT IN PANCREAS WITH REMOVAL OF PSEUDOCYST -TRACHEOSTOMY WITH LATER REMOVAL -RIGHT 4TH TOE RAY AMPUTATION 09/11/13 DR. ABDULLAHI BUCKLEY -CARDIAC CATH 12/[address] BEARDEN--MULTI-VESSEL DISEASE/INOPERABLE -11/16/21--FRACTURE OF PROSTHETIC RIGHT HIP/TRANSFERRED TO [facility] AND HAD SURGICAL REPAIR AT THAT TIME. LONG HISTORY OF EXTREME NON-COMPLIANCE IN ALL ASPECTS OF CARE Physical Exam Vital Signs Vital Signs - First Documented 01/11/22 13:10 Temp 36.7 Pulse 70 Resp 18 B/P (MAP) 111/82 (92) Pulse Ox 98 O2 Delivery Room Air Height, Weight, BMI Height: 5'10.00" Weight: 180lbs. 0.0oz. 81.931252iu; 23.00 BMI Method:Stated General Appearance: No Apparent Distress, WD/WN Head: No Evidence of Injury Eyes: Bilateral Eye Normal Inspection Respiratory: Chest Non Tender, Lungs Clear, Normal Breath Sounds, No Accessory Muscle Use, No Respiratory Distress Gastrointestinal: Normal Bowel Sounds, No Organomegaly, Non Tender, Soft Back: Normal Inspection Extremity: Other (right hip bony tenderness to palpation) Neurologic/Psychiatric: Alert Skin: Normal Color, Warm/Dry Progress/Results/Core Measures Results/Orders My Orders Orders - QUINN FORTE APRN Foot, Left, 3 Views (01/11/22 14:26) Hip, Right, 2 Views (01/11/22 14:26) Vital Signs/I&O 01/11/22 01/11/22 13:10 16:14 Temp 36.7 Pulse 70 66 Resp 18 18 B/P (MAP) 111/82 (92) 125/82 Pulse Ox 98 100 O2 Delivery Room Air Room Air Blood Pressure Mean: 92 Progress Progress Note : Progress Note Patient with known hip fracture that is not being repaired. Fell again at the facility today and the staff was concerned that he possibly injured it again. Patient currently denies complaints to me at this time. 1522: Consulted with Dr. Yun in regards to patient and he agrees that patient can go back to the facility since they were not planning on repairing hip again. 1530: Spoke to patient that he will go back to facility and he verbalized understanding. Diagnostic Imaging Diagonstic Imaging: Xray Plain Films/CT/US/NM/MRI: hip Comments SHANNON: JOLLY MANZANARES [facility] REC#: [id number] PT STATUS: REG ER : 1950 PHYSICIAN: QUINN FORTE APRN ADMIT DATE: 01/11/22/ER Signed Date of Exam:01/11/22 HIP, RIGHT, 2 VIEWS EXAMINATION: Right hip radiograph. EXAM DATE: 01/11/2022 2:50 PM. COMPARISON: 12/09/2021. HISTORY: Right hip pain after fall. TECHNIQUE: 2 views. FINDINGS: Redemonstrated fracture of the proximal right femur at the greater trochanter similar to 12/09/2021. There is a new displaced fragment along the proximal femur, best seen on the lateral view. This was not seen on the prior radiograph. There are surgical changes from prior arthroplasty of the right hip. Hardware is in good positioning without evidence of loosening. The joint spaces are normal. There is diffuse soft tissue swelling. IMPRESSION: 1. Chronic and likely new acute fracture of the proximal right femur compared to 12/09/2021. 2. Surgical changes from total right hip arthroplasty. Dictated by: Dictated on workstation # [id number] Dict: 01/11/22 1508 Trans: 01/11/22 1549 [facility] [id number] Interpreted by: YIMI JOHNSON DO Electronically signed by: YIMI JOHNSON DO 01/11/22 1549 Diagonstic Imaging: Xray Plain Films/CT/US/NM/MRI: other (foot) Comments NAME: JOLLY MANZANARES [facility] REC#: [id number] PT STATUS: DEP ER : 1950 PHYSICIAN: QUINN FORTE APRN ADMIT DATE: 01/11/22/ER Signed Date of Exam:01/11/22 FOOT, LEFT, 3 VIEWS Indication: Fall. Hip pain. Hip fracture. COMPARISON: 05/14/2019 FINDINGS: Full radiographic views of the left foot were obtained. Patient is status post previous amputation of the 1st and 2nd toes. No acute osseous abnormality is seen. Osseous structures are intact. No suspicious lytic or blastic bony lesions are identified. Joint spaces are maintained. No unexpected radiopaque foreign bodies are seen. Soft tissue structures are unremarkable. IMPRESSION: 1. No new acute osseous abnormality of the left foot. 2. Previous amputation of the 1st and 2nd toes. Dictated by: Dictated on workstation # [id number] Dict: 01/11/22 1450 Trans: 01/11/22 1650 [facility] [id number] Interpreted by: RAVEN SUAREZ MD Electronically signed by: RAVEN SUAREZ MD 01/11/22 1650 Departure Impression Primary Impression: Periprosthetic fracture around internal prosthetic right hip joint Qualified Codes: M97.01XD - Periprosthetic fracture around internal prosthetic right hip joint, subsequent encounter Disposition: HOME, SELF-CARE Condition: Stable Departure-Patient Inst. Decision time for Depature: 15:27 Referrals: JOLLY DELANEY MD (PCP/Family) Primary Care Physician Add. Discharge Instructions: 1. Follow up with Orthopedic next week. 2. Continue medications as directed. 3. Return here if worse or concerns. All discharge instructions reviewed with patient and/or family. Voiced understanding. QUINN FORTE APRN Jan 11, 2022 14:26
--- NOTE | 2022-01-11 14:56 | Diagnostic Imaging Report ---
Indication: Fall. Hip pain. Hip fracture. COMPARISON: 05/14/2019 FINDINGS: Full radiographic views of the left foot were obtained. Patient is status post previous amputation of the 1st and 2nd toes. No acute osseous abnormality is seen. Osseous structures are intact. No suspicious lytic or blastic bony lesions are identified. Joint spaces are maintained. No unexpected radiopaque foreign bodies are seen. Soft tissue structures are unremarkable. IMPRESSION: 1. No new acute osseous abnormality of the left foot. 2. Previous amputation of the 1st and 2nd toes. Dictated by: Dictated on workstation # [id number]
--- NOTE | 2022-01-11 15:13 | Diagnostic Imaging Report ---
EXAMINATION: Right hip radiograph. EXAM DATE: 01/11/2022 2:50 PM. COMPARISON: 12/09/2021. HISTORY: Right hip pain after fall. TECHNIQUE: 2 views. FINDINGS: Redemonstrated fracture of the proximal right femur at the greater trochanter similar to 12/09/2021. There is a new displaced fragment along the proximal femur, best seen on the lateral view. This was not seen on the prior radiograph. There are surgical changes from prior arthroplasty of the right hip. Hardware is in good positioning without evidence of loosening. The joint spaces are normal. There is diffuse soft tissue swelling. IMPRESSION: 1. Chronic and likely new acute fracture of the proximal right femur compared to 12/09/2021. 2. Surgical changes from total right hip arthroplasty. Dictated by: Dictated on workstation # [id number]
[2022-01-11 16:14] VITALS: BP 125/82
== END 2022-01-11 16:13 | disposition home or self-care (01) ==
LOC: EDUNIT# 13:06 → ER 13:07
DX: M97.01XA Periprosthetic fracture around internal prosthetic right hip joint, initial encounter (principal); E11.9 Type 2 diabetes mellitus without complications; F17.210 Nicotine dependence, cigarettes, uncomplicated; Z79.4 Long term (current) use of insulin
CPT/HCPCS: 73502; 73630

== ENCOUNTER → 2022-01-29 | Outpatient (CLI) | payer MEDICARE, MEDICAID ==
[2022-01-29 11:15] LABS: ALBUMIN 3.4 GM/DL (3.2-4.5); POTASSIUM 4.3 MMOL/L (3.6-5.0)
[2022-01-29 11:18] LABS: TOTAL PROTEIN 6.7 GM/DL (6.4-8.2)
[2022-01-29 11:19] LABS: BILIRUBIN,TOTAL 0.2 MG/DL (0.1-1.0)
[2022-01-29 11:21] LABS: CREATININE SERUM 0.8 MG/DL (0.60-1.30)
--- NOTE | 2022-01-29 19:25 | Diagnostic Imaging Report ---
INDICATION: Bilateral foot wounds, evaluate for osteomyelitis. AP and oblique and lateral views of both feet are obtained. Right foot is compared to 12/19/2019. On the right side, there has been amputation of the 1st through 4th digits at the level of the distal aspect of the metatarsals. No acute fracture is seen. There is no overt erosive bony lesion. On the left side, there has been amputation of the 1st and 2nd digits at the level of the MTP joints. No acute fracture seen. There is no overt erosive bony lesion. IMPRESSION: Status post bilateral amputations as described above. There is no evidence of fracture or overt erosive bony lesion at this time. MRI could provide increased sensitivity if clinically warranted. Dictated by: Dictated on workstation # [id number]
== END ==
LOC: WOUNDCARE 08:54
PROVIDERS: ATTEND Family Medicine
DX: E11.621 Type 2 diabetes mellitus with foot ulcer (principal); L97.524 Non-pressure chronic ulcer of other part of left foot with necrosis of bone; L97.429 Non-pressure chronic ulcer of left heel and midfoot with unspecified severity; L97.412 Non-pressure chronic ulcer of right heel and midfoot with fat layer exposed; E11.65 Type 2 diabetes mellitus with hyperglycemia; E11.610 Type 2 diabetes mellitus with diabetic neuropathic arthropathy; D46.4 Refractory anemia, unspecified; I70.244 Atherosclerosis of native arteries of left leg with ulceration of heel and midfoot; I70.234 Atherosclerosis of native arteries of right leg with ulceration of heel and midfoot; T65.292A Toxic effect of other tobacco and nicotine, intentional self-harm, initial encounter; E44.0 Moderate protein-calorie malnutrition; I25.10 Atherosclerotic heart disease of native coronary artery without angina pectoris; J44.9 Chronic obstructive pulmonary disease, unspecified; F01.50 Vascular dementia, unspecified severity, without behavioral disturbance, psychotic disturbance, mood disturbance, and anxiety; M20.42 Other hammer toe(s) (acquired), left foot; R26.89 Other abnormalities of gait and mobility; Z68.23 Body mass index [BMI] 23.0-23.9, adult
CPT/HCPCS: 11042; 11044; 73630; 80053; 82607; 82728; 82746; 83036; 83540; 83550; 85652; 86141; 87070; 87077; 87205; G0463; 36415; 87186

== ENCOUNTER → 2022-02-06 | Outpatient (CLI) | payer MEDICARE, MEDICAID | LOC: WOUNDCARE 13:11 | PROVIDERS: ATTEND Family Medicine | DX: E11.621 Type 2 diabetes mellitus with foot ulcer (principal); L97.524 Non-pressure chronic ulcer of other part of left foot with necrosis of bone; L97.429 Non-pressure chronic ulcer of left heel and midfoot with unspecified severity; L97.412 Non-pressure chronic ulcer of right heel and midfoot with fat layer exposed; E11.52 Type 2 diabetes mellitus with diabetic peripheral angiopathy with gangrene; I96 Gangrene, not elsewhere classified; E11.65 Type 2 diabetes mellitus with hyperglycemia; E11.610 Type 2 diabetes mellitus with diabetic neuropathic arthropathy; M20.42 Other hammer toe(s) (acquired), left foot; D46.4 Refractory anemia, unspecified; I70.234 Atherosclerosis of native arteries of right leg with ulceration of heel and midfoot; I70.244 Atherosclerosis of native arteries of left leg with ulceration of heel and midfoot; T65.292A Toxic effect of other tobacco and nicotine, intentional self-harm, initial encounter; E44.0 Moderate protein-calorie malnutrition; I25.10 Atherosclerotic heart disease of native coronary artery without angina pectoris; J44.9 Chronic obstructive pulmonary disease, unspecified; F01.50 Vascular dementia, unspecified severity, without behavioral disturbance, psychotic disturbance, mood disturbance, and anxiety; M86.172 Other acute osteomyelitis, left ankle and foot; B95.62 Methicillin resistant Staphylococcus aureus infection as the cause of diseases classified elsewhere; Z68.23 Body mass index [BMI] 23.0-23.9, adult | CPT/HCPCS: 11042; 11044; G0463 ==

== ENCOUNTER → 2022-02-08 | Outpatient (CLI) | payer MEDICARE, MEDICAID ==
[~2022-02-08] MED LIST changes: +GADOTERATE 0.5 MMOL/ML (CLARISCAN) 15 ML VIAL IV ONE
--- NOTE | 2022-02-08 12:50 | Diagnostic Imaging Report ---
Exam: MRI left foot without contrast. Date: February 08, 2022. Indication: 71-year-old male, left foot pain. Concern for osteomyelitis, especially the third toe. Comparison: Bilateral foot radiographs January 29, 2022. Technique: Multiple noncontrast MR sequences of the left foot were obtained. Findings: There is absence of the first and second digit phalanges. There is T1 marrow signal loss and edema throughout the third, middle and distal phalanges with lack of well-defined cortical bone margins. This is consistent with osteomyelitis. There is some edema-like signal in the distal aspect of the third proximal phalanx perhaps best demonstrated on sagittal STIR sequence image 16. There is no overt T1 marrow signal loss to specifically suggest osteomyelitis at this location; however, this cannot be excluded. There is no third proximal interphalangeal joint effusion or otherwise identified sizable joint effusion. There is no additional identified site of osteomyelitis. The Lisfranc ligament proper is intact. There is no acute fracture. There is diffuse fatty atrophy of the imaged foot musculature most compatible with polyneuropathy. There is no evidence of tenosynovitis. There is no identified focal fluid collection or abscess. Impression: 1. Osteomyelitis involving the entire extent of the third, middle and distal phalanges. Edema in the distal aspect of the third proximal phalanx without overt T1 marrow signal loss to specifically diagnose osteomyelitis although this cannot be excluded. 2. No convincing evidence of septic arthritis of the third proximal interphalangeal joint or third metatarsophalangeal joint. 3. No evidence of tenosynovitis. 4. No identified focal fluid collection or abscess. 5. Diffuse fatty atrophy of the foot musculature consistent with polyneuropathy. Dictated by: Dictated on workstation # [id number]
== END ==
LOC: RAD 08:45
PROVIDERS: ATTEND Family Medicine
DX: M86.172 Other acute osteomyelitis, left ankle and foot (principal); M62.572 Muscle wasting and atrophy, not elsewhere classified, left ankle and foot

== ENCOUNTER 2022-02-21 05:31 | Outpatient (CLI) | payer MEDICARE, MEDICAID ==
[~2022-02-21] VITALS: Ht 167.4 cm; Wt 73.0 kg
[~2022-02-21 05:31] MED LIST changes: -GADOTERATE 0.5 MMOL/ML (CLARISCAN) 15 ML VIAL IV ONE
== END 2022-02-22 13:04 | disposition home or self-care (01) ==
LOC: PREOP 05:31
PROVIDERS: ATTEND Surgery
DX: Z01.818 Encounter for other preprocedural examination (principal)

== ENCOUNTER 2022-02-28 07:50 | Day surgery (SDC) | payer MEDICARE, MEDICAID ==
[2022-02-28] VITALS (9 sets, daily range): BP systolic 111–148; BP diastolic 68–92
[~2022-02-28] VITALS: Ht 167.4 cm; Wt 73.0 kg
--- NOTE | 2022-02-28 08:20 | Progress Note-Pre Operative ---
Pre-Operative Progress Note Date of Available H&P: Feb 11, 2022 Date H&P Reviewed: Feb 28, 2022 Time H&P Reviewed: 08:20 History & Physical: H&P Reviewed, Patient Examed, No changes noted Pre-Operative Diagnosis: left 3rd toe osteomyelitis JOSELO ALICEA DO Feb 28, 2022 08:20
[2022-02-28] MEDS ORDERED: ceFAZolin INJECTION 2,000 MG in NS (IVPB) 50 ML IV ONE (08:45)
[2022-02-28] MEDS ORDERED: LACTATED RINGERS 1,000 ML IV PRN (08:45)
[2022-02-28] MEDS ORDERED: PROPOFOL INJECTION 50 ML IV ONE (11:15)
[2022-02-28] MEDS ORDERED: ceFAZolin INJECTION 2,000 MG ONE (11:21)
[2022-02-28] MEDS ORDERED: NS (IVPB) 50 ML ONE (11:21)
[2022-02-28] MEDS ORDERED: LIDOCAINE/EPI 1%-1:100,000 (XYLOCAINE) 10 ML ONE (11:37)
[2022-02-28] MEDS ORDERED: LIDOCAINE 1% INJ 10 ML VIAL ONE (11:37)
--- NOTE | 2022-02-28 12:24 | Anesthesia-General Post-Op ---
MAC Patient Condition Mental Status/LOC: Same as Preop Cardiovascular: Satisfactory Nausea/Vomiting: Absent Respiratory: Satisfactory Pain: Controlled Complications: Absent Post Op Complications Complications None Follow Up Care/Instructions Patient Instructions None needed. Anesthesiology Discharge Order Discharge Order Patient is doing well, no complaints, stable vital signs, no apparent adverse anesthesia problems. No complications reported per nursing. MANNY CORCORAN CRNA Feb 28, 2022 12:23
[2022-02-28] MEDS ORDERED: HYDROmorphone 2 MG/ML VIAL (DILAUDID) IV ONE (12:30)
[2022-02-28] MEDS ORDERED: ONDANSETRON 4 MG/2 ML (SDV) Z0FRAN IVP PRN (12:30)
[2022-02-28] MEDS ORDERED: HYDROmorphone 2 MG/ML VIAL (DILAUDID) ONE (12:30)
--- NOTE | 2022-03-01 13:43 | OPERATIVE REPORT ---
DATE OF SERVICE: 02/28/2022 PREOPERATIVE DIAGNOSIS: Left third toe osteomyelitis. POSTOPERATIVE DIAGNOSIS: Left third toe osteomyelitis. PROCEDURE: Left ankle block and left third toe amputation. SURGEON: JOSELO ALICEA DO ANESTHESIA: MAC with local. ESTIMATED BLOOD LOSS: Minimal. COMPLICATIONS: None. INDICATIONS: The patient is a 71-year-old male with osteomyelitis, left third toe. He has had previous amputations as well. He understands the risks and benefits of procedure and wishes to proceed. Consent was signed in chart. DESCRIPTION OF PROCEDURE: The patient was taken to the operating suite, prepped and draped in sterile fashion. Timeout was performed. Left ankle block was performed injecting local anesthetic on the medial and lateral aspects posteriorly of the ankle and also fanning over the dorsum of the foot. Once anesthetic effect place, a #15 blade scalpel was used to circumferentially cut around the left third toe. Cautery was used to dissect down to the metatarsal head, which the toe was then amputated. No signs of infection proximally. The wound was irrigated and the skin was then closed with 3-0 and 2-0 Prolene sutures. The area was washed and dried and sterile bandage was applied. The patient tolerated the procedure well with no complications, taken to recovery room in stable condition. Job ID: [id number] DocumentID: [id number] Dictated Date: 03/01/2022 09:10:11 Self Pay Collector Date: 03/01/2022 13:41:00 Dictated By: JOSELO ALICEA DO
== END 2022-02-28 14:45 ==
LOC: SDC 07:50
PROVIDERS: ATTEND Surgery
DX: M86.8X7 Other osteomyelitis, ankle and foot (principal); L97.529 Non-pressure chronic ulcer of other part of left foot with unspecified severity; F17.210 Nicotine dependence, cigarettes, uncomplicated
CPT/HCPCS: 82947; 87081

== ENCOUNTER → 2022-03-13 | Outpatient (CLI) | payer MEDICARE, MEDICAID ==
[~2022-03-13] MED LIST changes: +CLOP-31 PO; -CLOP75TA69 PO
== END ==
LOC: WOUNDCARE 08:32
PROVIDERS: ATTEND Family Medicine
DX: E11.621 Type 2 diabetes mellitus with foot ulcer (principal); E11.52 Type 2 diabetes mellitus with diabetic peripheral angiopathy with gangrene; I96 Gangrene, not elsewhere classified; E11.65 Type 2 diabetes mellitus with hyperglycemia; E11.40 Type 2 diabetes mellitus with diabetic neuropathy, unspecified; L97.524 Non-pressure chronic ulcer of other part of left foot with necrosis of bone; L97.429 Non-pressure chronic ulcer of left heel and midfoot with unspecified severity; L97.412 Non-pressure chronic ulcer of right heel and midfoot with fat layer exposed; M20.42 Other hammer toe(s) (acquired), left foot; D46.4 Refractory anemia, unspecified; I70.244 Atherosclerosis of native arteries of left leg with ulceration of heel and midfoot; I70.234 Atherosclerosis of native arteries of right leg with ulceration of heel and midfoot; T65.292A Toxic effect of other tobacco and nicotine, intentional self-harm, initial encounter; E44.0 Moderate protein-calorie malnutrition; I25.10 Atherosclerotic heart disease of native coronary artery without angina pectoris; J44.9 Chronic obstructive pulmonary disease, unspecified; F01.50 Vascular dementia, unspecified severity, without behavioral disturbance, psychotic disturbance, mood disturbance, and anxiety; B95.62 Methicillin resistant Staphylococcus aureus infection as the cause of diseases classified elsewhere; M86.172 Other acute osteomyelitis, left ankle and foot; Z68.23 Body mass index [BMI] 23.0-23.9, adult
CPT/HCPCS: 11042; A6212; G0463

== ENCOUNTER → 2022-03-19 | Outpatient (CLI) | payer MEDICARE, MEDICAID | LOC: WOUNDCARE 08:17 | PROVIDERS: ATTEND Family Medicine | DX: E11.621 Type 2 diabetes mellitus with foot ulcer (principal); E11.65 Type 2 diabetes mellitus with hyperglycemia; E11.52 Type 2 diabetes mellitus with diabetic peripheral angiopathy with gangrene; I96 Gangrene, not elsewhere classified; L97.524 Non-pressure chronic ulcer of other part of left foot with necrosis of bone; L97.429 Non-pressure chronic ulcer of left heel and midfoot with unspecified severity; L97.412 Non-pressure chronic ulcer of right heel and midfoot with fat layer exposed; M20.41 Other hammer toe(s) (acquired), right foot; D46.4 Refractory anemia, unspecified; I70.234 Atherosclerosis of native arteries of right leg with ulceration of heel and midfoot; I70.244 Atherosclerosis of native arteries of left leg with ulceration of heel and midfoot; T65.292A Toxic effect of other tobacco and nicotine, intentional self-harm, initial encounter; E44.0 Moderate protein-calorie malnutrition; I25.10 Atherosclerotic heart disease of native coronary artery without angina pectoris; J44.9 Chronic obstructive pulmonary disease, unspecified; F01.50 Vascular dementia, unspecified severity, without behavioral disturbance, psychotic disturbance, mood disturbance, and anxiety; M86.172 Other acute osteomyelitis, left ankle and foot; B95.62 Methicillin resistant Staphylococcus aureus infection as the cause of diseases classified elsewhere; Z68.23 Body mass index [BMI] 23.0-23.9, adult | CPT/HCPCS: 99213 ==

== ENCOUNTER → 2022-04-01 | Outpatient (CLI) | payer MEDICARE, MEDICAID | LOC: WOUNDCARE 08:24 | PROVIDERS: ATTEND Family Medicine | DX: T81.31XA Disruption of external operation (surgical) wound, not elsewhere classified, initial encounter (principal); E11.621 Type 2 diabetes mellitus with foot ulcer; E11.52 Type 2 diabetes mellitus with diabetic peripheral angiopathy with gangrene; I96 Gangrene, not elsewhere classified; E11.65 Type 2 diabetes mellitus with hyperglycemia; E11.40 Type 2 diabetes mellitus with diabetic neuropathy, unspecified; M20.42 Other hammer toe(s) (acquired), left foot; D46.4 Refractory anemia, unspecified; I70.244 Atherosclerosis of native arteries of left leg with ulceration of heel and midfoot; I70.234 Atherosclerosis of native arteries of right leg with ulceration of heel and midfoot; T65.292A Toxic effect of other tobacco and nicotine, intentional self-harm, initial encounter; E44.0 Moderate protein-calorie malnutrition; I25.10 Atherosclerotic heart disease of native coronary artery without angina pectoris; J44.9 Chronic obstructive pulmonary disease, unspecified; F01.50 Vascular dementia, unspecified severity, without behavioral disturbance, psychotic disturbance, mood disturbance, and anxiety; T87.89 Other complications of amputation stump; L97.429 Non-pressure chronic ulcer of left heel and midfoot with unspecified severity; L97.412 Non-pressure chronic ulcer of right heel and midfoot with fat layer exposed; Z68.23 Body mass index [BMI] 23.0-23.9, adult | CPT/HCPCS: 11043; A6212; G0463 ==

== ENCOUNTER → 2022-04-16 | Outpatient (CLI) | payer MEDICARE, MEDICAID | LOC: WOUNDCARE 09:51 | PROVIDERS: ATTEND Family Medicine | DX: L97.412 Non-pressure chronic ulcer of right heel and midfoot with fat layer exposed (principal); L97.429 Non-pressure chronic ulcer of left heel and midfoot with unspecified severity; E11.65 Type 2 diabetes mellitus with hyperglycemia; E11.621 Type 2 diabetes mellitus with foot ulcer; E11.610 Type 2 diabetes mellitus with diabetic neuropathic arthropathy; M20.42 Other hammer toe(s) (acquired), left foot; R26.89 Other abnormalities of gait and mobility; D46.4 Refractory anemia, unspecified; I70.244 Atherosclerosis of native arteries of left leg with ulceration of heel and midfoot; I70.234 Atherosclerosis of native arteries of right leg with ulceration of heel and midfoot; T65.292A Toxic effect of other tobacco and nicotine, intentional self-harm, initial encounter; E44.0 Moderate protein-calorie malnutrition; I25.10 Atherosclerotic heart disease of native coronary artery without angina pectoris; J44.9 Chronic obstructive pulmonary disease, unspecified; F01.50 Vascular dementia, unspecified severity, without behavioral disturbance, psychotic disturbance, mood disturbance, and anxiety; T81.31XA Disruption of external operation (surgical) wound, not elsewhere classified, initial encounter; T87.89 Other complications of amputation stump; E11.52 Type 2 diabetes mellitus with diabetic peripheral angiopathy with gangrene | CPT/HCPCS: 11042; G0463 ==

== ENCOUNTER → 2022-04-30 | Outpatient (CLI) | payer MEDICARE, MEDICAID | LOC: WOUNDCARE 10:27 | PROVIDERS: ATTEND Family Medicine | DX: E11.621 Type 2 diabetes mellitus with foot ulcer (principal); E11.65 Type 2 diabetes mellitus with hyperglycemia; E11.610 Type 2 diabetes mellitus with diabetic neuropathic arthropathy; M20.42 Other hammer toe(s) (acquired), left foot; L97.429 Non-pressure chronic ulcer of left heel and midfoot with unspecified severity; R26.89 Other abnormalities of gait and mobility; D46.4 Refractory anemia, unspecified; L97.412 Non-pressure chronic ulcer of right heel and midfoot with fat layer exposed; I70.244 Atherosclerosis of native arteries of left leg with ulceration of heel and midfoot; I70.234 Atherosclerosis of native arteries of right leg with ulceration of heel and midfoot; T65.222A Toxic effect of tobacco cigarettes, intentional self-harm, initial encounter; E44.0 Moderate protein-calorie malnutrition; I25.10 Atherosclerotic heart disease of native coronary artery without angina pectoris; J44.9 Chronic obstructive pulmonary disease, unspecified; F01.50 Vascular dementia, unspecified severity, without behavioral disturbance, psychotic disturbance, mood disturbance, and anxiety; T81.31XA Disruption of external operation (surgical) wound, not elsewhere classified, initial encounter; T87.89 Other complications of amputation stump; E11.52 Type 2 diabetes mellitus with diabetic peripheral angiopathy with gangrene | CPT/HCPCS: 11042; 11043; 87070; 87077; 87205; A6197; A6212; G0463 ==

== ENCOUNTER → 2022-05-13 | Outpatient (CLI) | payer MEDICARE, MEDICAID | LOC: WOUNDCARE 05-10 13:52 | PROVIDERS: ATTEND Family Medicine | DX: L97.412 Non-pressure chronic ulcer of right heel and midfoot with fat layer exposed (principal); E11.621 Type 2 diabetes mellitus with foot ulcer; L97.429 Non-pressure chronic ulcer of left heel and midfoot with unspecified severity; E11.65 Type 2 diabetes mellitus with hyperglycemia; E11.610 Type 2 diabetes mellitus with diabetic neuropathic arthropathy; M20.42 Other hammer toe(s) (acquired), left foot; R26.89 Other abnormalities of gait and mobility; D46.4 Refractory anemia, unspecified; I70.244 Atherosclerosis of native arteries of left leg with ulceration of heel and midfoot; I70.234 Atherosclerosis of native arteries of right leg with ulceration of heel and midfoot; T65.292A Toxic effect of other tobacco and nicotine, intentional self-harm, initial encounter; E44.0 Moderate protein-calorie malnutrition; I25.10 Atherosclerotic heart disease of native coronary artery without angina pectoris; J44.9 Chronic obstructive pulmonary disease, unspecified; T81.31XA Disruption of external operation (surgical) wound, not elsewhere classified, initial encounter; T87.89 Other complications of amputation stump; F01.50 Vascular dementia, unspecified severity, without behavioral disturbance, psychotic disturbance, mood disturbance, and anxiety; B96.5 Pseudomonas (aeruginosa) (mallei) (pseudomallei) as the cause of diseases classified elsewhere; E11.52 Type 2 diabetes mellitus with diabetic peripheral angiopathy with gangrene; I96 Gangrene, not elsewhere classified | CPT/HCPCS: 11042; A6212; G0463 ==

== ENCOUNTER → 2022-05-29 | Outpatient (CLI) | payer MEDICARE, MEDICAID | LOC: WOUNDCARE 08:20 | PROVIDERS: ATTEND Family Medicine | DX: E11.621 Type 2 diabetes mellitus with foot ulcer (principal); L97.429 Non-pressure chronic ulcer of left heel and midfoot with unspecified severity; L97.412 Non-pressure chronic ulcer of right heel and midfoot with fat layer exposed; E11.65 Type 2 diabetes mellitus with hyperglycemia; E11.610 Type 2 diabetes mellitus with diabetic neuropathic arthropathy; M20.42 Other hammer toe(s) (acquired), left foot; R26.89 Other abnormalities of gait and mobility; D46.4 Refractory anemia, unspecified; I70.244 Atherosclerosis of native arteries of left leg with ulceration of heel and midfoot; I70.234 Atherosclerosis of native arteries of right leg with ulceration of heel and midfoot; T65.292A Toxic effect of other tobacco and nicotine, intentional self-harm, initial encounter; E44.0 Moderate protein-calorie malnutrition; I25.10 Atherosclerotic heart disease of native coronary artery without angina pectoris; J44.9 Chronic obstructive pulmonary disease, unspecified; T81.31XA Disruption of external operation (surgical) wound, not elsewhere classified, initial encounter; T87.89 Other complications of amputation stump; F01.A0 Vascular dementia, mild, without behavioral disturbance, psychotic disturbance, mood disturbance, and anxiety; E11.52 Type 2 diabetes mellitus with diabetic peripheral angiopathy with gangrene | CPT/HCPCS: 11042; G0463 ==

== ENCOUNTER → 2022-06-17 | Outpatient (CLI) | payer MEDICARE, MEDICAID | LOC: WOUNDCARE 08:53 | PROVIDERS: ATTEND Family Medicine | DX: I96 Gangrene, not elsewhere classified (principal); T81.31XA Disruption of external operation (surgical) wound, not elsewhere classified, initial encounter; T87.89 Other complications of amputation stump; I70.244 Atherosclerosis of native arteries of left leg with ulceration of heel and midfoot; I70.234 Atherosclerosis of native arteries of right leg with ulceration of heel and midfoot; L97.429 Non-pressure chronic ulcer of left heel and midfoot with unspecified severity; L97.412 Non-pressure chronic ulcer of right heel and midfoot with fat layer exposed; E11.621 Type 2 diabetes mellitus with foot ulcer; E11.65 Type 2 diabetes mellitus with hyperglycemia; E11.610 Type 2 diabetes mellitus with diabetic neuropathic arthropathy; E44.0 Moderate protein-calorie malnutrition; I25.10 Atherosclerotic heart disease of native coronary artery without angina pectoris; M20.42 Other hammer toe(s) (acquired), left foot; R26.89 Other abnormalities of gait and mobility; D46.4 Refractory anemia, unspecified; F01.50 Vascular dementia, unspecified severity, without behavioral disturbance, psychotic disturbance, mood disturbance, and anxiety; T65.292A Toxic effect of other tobacco and nicotine, intentional self-harm, initial encounter; J44.9 Chronic obstructive pulmonary disease, unspecified; Z68.28 Body mass index [BMI] 28.0-28.9, adult | CPT/HCPCS: 11042; A6212; G0463 ==

== ENCOUNTER → 2022-07-08 | Outpatient (CLI) | payer MEDICARE, MEDICAID | LOC: WOUNDCARE 08:54 | PROVIDERS: ATTEND Family Medicine | DX: L97.419 Non-pressure chronic ulcer of right heel and midfoot with unspecified severity (principal); T81.31XA Disruption of external operation (surgical) wound, not elsewhere classified, initial encounter; L97.429 Non-pressure chronic ulcer of left heel and midfoot with unspecified severity; E11.621 Type 2 diabetes mellitus with foot ulcer; E11.65 Type 2 diabetes mellitus with hyperglycemia; E11.610 Type 2 diabetes mellitus with diabetic neuropathic arthropathy; M20.42 Other hammer toe(s) (acquired), left foot; R26.89 Other abnormalities of gait and mobility; D46.4 Refractory anemia, unspecified; I70.244 Atherosclerosis of native arteries of left leg with ulceration of heel and midfoot; I70.234 Atherosclerosis of native arteries of right leg with ulceration of heel and midfoot; T65.292A Toxic effect of other tobacco and nicotine, intentional self-harm, initial encounter; E44.0 Moderate protein-calorie malnutrition; I25.10 Atherosclerotic heart disease of native coronary artery without angina pectoris; J44.9 Chronic obstructive pulmonary disease, unspecified; T85.898A Other specified complication of other internal prosthetic devices, implants and grafts, initial encounter; F01.50 Vascular dementia, unspecified severity, without behavioral disturbance, psychotic disturbance, mood disturbance, and anxiety; E11.52 Type 2 diabetes mellitus with diabetic peripheral angiopathy with gangrene; I96 Gangrene, not elsewhere classified | CPT/HCPCS: 11042; G0463 ==

== ENCOUNTER → 2022-07-29 | Outpatient (CLI) | payer MEDICARE, MEDICAID ==
[~2022-07-29] MED LIST changes: -INSU100I29 SC; -INSU100I29 SQ; +INSU100I30 SC; +INSU100I30 SQ
== END ==
LOC: WOUNDCARE 09:02
PROVIDERS: ATTEND Family Medicine
DX: I96 Gangrene, not elsewhere classified (principal); T81.31XA Disruption of external operation (surgical) wound, not elsewhere classified, initial encounter; T87.89 Other complications of amputation stump; E11.65 Type 2 diabetes mellitus with hyperglycemia; E11.621 Type 2 diabetes mellitus with foot ulcer; E11.610 Type 2 diabetes mellitus with diabetic neuropathic arthropathy; R26.89 Other abnormalities of gait and mobility; I70.244 Atherosclerosis of native arteries of left leg with ulceration of heel and midfoot; T65.292A Toxic effect of other tobacco and nicotine, intentional self-harm, initial encounter; J44.9 Chronic obstructive pulmonary disease, unspecified; F01.A0 Vascular dementia, mild, without behavioral disturbance, psychotic disturbance, mood disturbance, and anxiety; M20.42 Other hammer toe(s) (acquired), left foot; D46.4 Refractory anemia, unspecified; E44.0 Moderate protein-calorie malnutrition; I25.10 Atherosclerotic heart disease of native coronary artery without angina pectoris; Z68.28 Body mass index [BMI] 28.0-28.9, adult
CPT/HCPCS: 11042; G0463

== ENCOUNTER → 2022-08-19 | Outpatient (CLI) | payer MEDICARE, MEDICAID | LOC: WOUNDCARE 09:36 | PROVIDERS: ATTEND Family Medicine | DX: E11.621 Type 2 diabetes mellitus with foot ulcer (principal); E11.65 Type 2 diabetes mellitus with hyperglycemia; E11.610 Type 2 diabetes mellitus with diabetic neuropathic arthropathy; M20.42 Other hammer toe(s) (acquired), left foot; D46.4 Refractory anemia, unspecified; I70.244 Atherosclerosis of native arteries of left leg with ulceration of heel and midfoot; T65.292A Toxic effect of other tobacco and nicotine, intentional self-harm, initial encounter; E44.0 Moderate protein-calorie malnutrition; L97.429 Non-pressure chronic ulcer of left heel and midfoot with unspecified severity; J44.9 Chronic obstructive pulmonary disease, unspecified; L97.522 Non-pressure chronic ulcer of other part of left foot with fat layer exposed; T81.31XA Disruption of external operation (surgical) wound, not elsewhere classified, initial encounter; T87.89 Other complications of amputation stump; I25.10 Atherosclerotic heart disease of native coronary artery without angina pectoris; F01.A0 Vascular dementia, mild, without behavioral disturbance, psychotic disturbance, mood disturbance, and anxiety; A49.9 Bacterial infection, unspecified; E11.52 Type 2 diabetes mellitus with diabetic peripheral angiopathy with gangrene; R26.89 Other abnormalities of gait and mobility | CPT/HCPCS: 11042; 87070; 87205; A6260; G0463 ==

== ENCOUNTER → 2022-08-20 | Outpatient (CLI) | payer MEDICARE, MEDICAID | LOC: CARD 08:30 | PROVIDERS: ATTEND Internal Medicine Cardiovascular Disease | DX: I10 Essential (primary) hypertension (principal) | CPT/HCPCS: 93306 ==

== ENCOUNTER 2022-08-31 08:20 | Inpatient (IN) | payer MEDICARE, MEDICAID ==
[~2022-08-31] VITALS: Ht 177 cm; Wt 81.0 kg
--- NOTE | 2022-08-31 09:24 | Diagnostic Imaging Report ---
HISTORY: Shortness of air, hypoxia COMPARISON: 12/09/2021 TECHNIQUE: Frontal view the chest FINDINGS: Lung volumes are normal. There is airspace opacity along the peripheral left lung. There is no large effusion or pneumothorax seen. The cardiac silhouette is stable in size. There are old left-sided rib fractures. IMPRESSION: 1. Airspace opacity in the peripheral left lung, may be due to infection in the appropriate clinical setting. Recommend follow-up to resolution. Dictated by: Dictated on workstation # [id number]
[2022-08-31] MEDS ORDERED: HYOSCYAMINE 0.125 MG (LEVSIN) TAB SL ONE (09:30)
--- NOTE | 2022-08-31 09:59 | ED General ---
General Chief Complaint: Respiratory Problems Stated Complaint: UNWELL Nursing Triage Note: ARRIVED VIA EMS FROM [facility]. PT STATES HE HAS NOT FELT GOOD FOR SEVERAL DAYS AND IS HAVING SOA AND DIARRHEA. STAFF REPORTS A PULSE OX OF 88-90 ROOM AIR WHEN LAYING ON BACK. Source of Information: Patient, EMS, [facility] Records Exam Limitations: No Limitations History of Present Illness Date Seen by Provider: August 31, 2022 Time Seen by Provider: 08:49 Initial Comments This 72 year old gentleman from [facility] presents to the ER with vague complaints of not feeling well. He generally complains of aching all over and having diarrhea. He is afebrile. He normally does not require O2 support but was note to have an O2 sat of 88% in the long term. O2 sat on arrival to the ER was 90%. He appears ill and pale. He is not in significant distress, but does appear uncomfortable. He is limited historian due to dementia. He has a history of seizures but no seizure activity was witnessed. Allergies and Home Medications Allergies Coded Allergies: acetaminophen (Verified Allergy, Intermediate, 10/26/17) Patient Home Medication List Home Medication List Reviewed: Yes Acetaminophen (Tylenol Extra Strength) 500 Mg Tablet, 1,000 MG PO Q8H PRN for PAIN-MILD (1-4), (Reported) Entered as Reported by: MURTAZA CRUM on 11/27/21 1456 Albuterol Sulfate (Albuterol Sulfate) 2.5 Mg/3 Ml Vial.neb, 2.5 MG NEB UD PRN for SHORTNESS OF BREATH, (Reported) Entered as Reported by: AMMY PALAFOX on 12/08/18 1448 Aspirin (Aspirin EC) 81 Mg Tablet.dr, 81 MG PO BID, (Reported) Entered as Reported by: MURTAZA CRUM on 11/27/21 1456 Cefdinir (Cefdinir) 300 Mg Capsule, 300 MG PO BID Prescribed by: CLARIBEL RAMEY on 11/30/21 1343 Cholecalciferol (Vitamin D3) (Vitamin D3) 125 Mcg (5000 Unit) Capsule, 125 MCG PO DAILY, (Reported) Entered as Reported by: MURTAZA CRUM on 12/21/19 1616 Clonazepam (Clonazepam) 0.5 Mg Tablet, 0.5 MG PO 0800,1400, (Reported) Entered as Reported by: MURTAZA CRUM on 11/27/21 1456 Clonidine HCl (Clonidine HCl) 0.2 Mg Tablet, 0.2 MG PO BID, (Reported) Entered as Reported by: SAIMA HAMPTON on 07/04/20 1115 Clopidogrel Bisulfate (Plavix) 75 Mg Tablet, 75 MG PO DAILY, (Reported) Entered as Reported by: AMMY PALAFOX on 03/05/17 09 Divalproex Sodium (Divalproex Sodium) 125 Mg Cap.sprink, 125 MG PO TID, (Reported) Entered as Reported by: AMMY PALAFOX on 03/05/17 09 Docusate Sodium (Colace) 100 Mg Capsule, 100 MG PO BID, (Reported) Entered as Reported by: MURTAZA CRUM on 12/21/19 161 Donepezil HCl (Aricept) 10 Mg Tablet, 10 MG PO HS, (Reported) Entered as Reported by: AMMY PALAFOX on 03/05/17 09 Dulaglutide (Trulicity) 0.75 Mg/0.5 Ml Pen.injctr, 0.75 MG SC SUN, (Reported) Entered as Reported by: AMMY PALAFOX on 12/08/18 1448 Enalapril Maleate (Enalapril Maleate) 2.5 Mg Tablet, 2.5 MG PO DAILY, (Reported) Entered as Reported by: AMMY PALAFOX on 03/05/17917 Escitalopram Oxalate (Lexapro) 5 Mg Tablet, 5 MG PO DAILY, (Reported) Entered as Reported by: PHILLY HENRY on 08/31/20 0907 Ferrous Sulfate (Ferrous Sulfate) 325 Mg Tablet, 325 MG PO Q48H, (Reported) Entered as Reported by: MURTAZA CRUM on 12/21/19 161 Gabapentin (Neurontin) 300 Mg Capsule, 300 MG PO HS, (Reported) Entered as Reported by: MURTAZA CRUM on 12/21/19 161 Glucagon HCl (Glucagon Emergency Kit) 1 Mg Vial, 1 MG IM UD PRN for HYPOGLYCEMIA, (Reported) Entered as Reported by: MURTAZA CRUM on 11/27/21 1456 Hydrocodone/Acetaminophen (Hydrocodone-Acetamin 5-325 mg) 5 Mg-325 Mg Tablet, 1- 2 TAB PO Q6H PRN for PAIN-MODERATE (5-7) Prescribed by: JV COLE on 12/09/21 2318 Icosapent Ethyl (Vascepa) 1 Gm Capsule, 1 GM PO BID, (Reported) Entered as Reported by: AMMY PALAFOX on 12/08/18 1448 Insulin Aspart (Novolog) 100 Unit/Ml Susp, 7 UNIT SQ AC, (Reported) Entered as Reported by: SAIMA HAMPTON on 04/29/19 0816 Insulin Detemir (Levemir Flextouch) 100 Unit/Ml (3 Ml) Insuln.pen, 15 UNITS SC DAILY, (Reported) Entered as Reported by: MURTAZA CRUM on 12/21/19 1616 Lactobacillus Acidophilus/Pect (Acidophilus-Pectin Capsule) 1 Each Capsule, 1 CAP PO QID, (Reported) Entered as Reported by: AMMY PALAFOX on 12/08/18 1448 Lansoprazole (Lansoprazole) 15 Mg Capsule.dr, 15 MG PO DAILY, (Reported) Entered as Reported by: MURTAZA CRUM on 11/27/21 1456 Levetiracetam (Levetiracetam) 500 Mg Tablet, 500 MG PO BID, (Reported) Entered as Reported by: AMMY PALAFOX on 03/05/17 09 Levothyroxine Sodium (Levothyroxine Sodium) 175 Mcg Tablet, 175 MCG PO DAILY, (Reported) Entered as Reported by: YUSEF CHRISTIAN on 10/26/17 1356 Lorazepam (Ativan) 1 Mg Tablet, 1 MG PO Q8H PRN for ANXIETY, (Reported) Entered as Reported by: MURTAZA CRUM on 11/27/21 1456 Mag Hydrox/Al Hydrox/Simeth (Mylanta Suspension) 30 Ml Oral.susp, 30 ML PO Q4H PRN for INDIGESTION, (Reported) Entered as Reported by: AMMY PALAFOX on 03/05/17 09 Magnesium Hydroxide (Milk of Magnesia) 400 Mg/5 Ml Oral.susp, 30 ML PO DAILY PRN for CONSTIPATION-1ST LINE, (Reported) Entered as Reported by: AMMY PALAFOX on 02/25/18 0933 Melatonin (Melatonin) 3 Mg Tablet, 3 MG PO HS, (Reported) Entered as Reported by: AMMY PALAFOX on 03/05/17 0918 Memantine HCl (Memantine HCl) 5 Mg Tablet, 5 MG PO HS, (Reported) Entered as Reported by: MURTAZA CRUM on 11/27/21 145 Metformin HCl (Metformin HCl) 500 Mg Tablet, 500 MG PO BID, (Reported) Entered as Reported by: MURTAZA CRUM on 11/27/21 145 Metoprolol Tartrate (Metoprolol Tartrate) 50 Mg Tablet, 50 MG PO BID WITH MEALS, (Reported) Entered as Reported by: SAIMA HAMPTON on 07/04/20 111 Mirtazapine (Mirtazapine) 15 Mg Tablet, 15 MG PO HS, (Reported) Entered as Reported by: SAIMA HAMPTON on 07/04/20 111 Multivitamin (Multivitamin) 1 Each Tablet, 1 EACH PO DAILY, (Reported) Entered as Reported by: MURTAZA CRUM on 11/27/21 145 Nicotine (Nicotine Patch) 1 Each Patch.td24, 21 MG TD DAILY, (Reported) Entered as Reported by: PHILLY HENRY on 08/31/20 09 Propylene Glycol (Systane Complete) 0.6 % Drops, 1 DROP OU BID, (Reported) Entered as Reported by: MURTAZA CRUM on 11/27/21 145 Simvastatin (Simvastatin) 10 Mg Tablet, 10 MG PO HS, (Reported) Entered as Reported by: MURTAZA CRUM on 11/27/21 145 Tamsulosin HCl (Flomax) 0.4 Mg Cap, 0.4 MG PO DAILY, (Reported) Entered as Reported by: AMMY PALAFOX on 12/08/18 1448 Thiamine Mononitrate (Vitamin B-1) 100 Mg Tablet, 100 MG PO DAILY, (Reported) Entered as Reported by: MURTAZA CRUM on 11/27/21 145 Tramadol HCl (Tramadol HCl) 50 Mg Tablet, 100 MG PO Q6H PRN for PAIN-MODERATE (5-7), (Reported) Entered as Reported by: PHILLY HENRY on 08/31/20 09 Venlafaxine HCl (Venlafaxine HCl ER) 75 Mg Cap.er.24h, 75 MG PO DAILY, (Reported) Entered as Reported by: SAIMA HAMPTON on 07/04/20 1115 Review of Systems Review of Systems Constitutional: see HPI EENTM: other (Dry MM) Respiratory: see HPI Cardiovascular: no symptoms reported Gastrointestinal: see HPI Genitourinary: no symptoms reported Musculoskeletal: see HPI Skin: see HPI Psychiatric/Neurological: See HPI Hematologic/Lymphatic: No Symptoms Reported Immunological/Allergic: no symptoms reported Past Aqxljxa-Bovvii-Gwwqtl Hx Patient Social History Tobacco Use?: Yes Tobacco type used: Cigarettes Smoking Status: Current Everyday Smoker Substance use?: No Alcohol Use?: Yes Alcohol Frequency: Once in a while Immunizations Up To Date Tetanus Booster (TDap): Unknown PED Vaccines UTD: Yes First/Initial COVID19 Vaccinat: 04/27/20 Second COVID19 Vaccination Joaquin: 05/18/20 Third COVID19 Vaccination Date: 03/14/21 Seasonal Allergies Seasonal Allergies: No Past Medical History Surgery/Hospitalization HX: HTN,DEMENTIA,DEPRESSION, ANXIETY, DM 2 NOW INSULIN DEPENDENT, SEIZURES, BPH, COPD, PVD, ANEMIA ,ARTHRITIS RIGHT FEMUR FX, RIGHT HIP REPLACEMENT Surgeries: Yes (KNEE SX; BACK-DISCECTOMY/FUSIONS;TOE AMPUTATION;L EYE CATARACT 09/01/20) Amputation, Cardiac, Coronary Stent, Eye Surgery, Orthopedic, Tracheostomy Respiratory: Yes (HX OF RESP. FAILURE WITH TRACH/LATER REMOVED) COPD Currently Using CPAP: No Currently Using BIPAP: No Cardiac: Yes (STENT IN ; SEVERE MULTIVESSEL CAD--INOPERABLE) Angina, Coronary Artery Disease, High Cholesterol, Hypertension, Peripheral Vascular Neurological: Yes (VASCULAR DEMENTIA W/BEHAVIOR DISTURBANCE;PSEUDOBULBAR AFFECT;CVA R FRONTAL) Dementia, Neuropathy, Seizure Disorder, Stroke Reproductive Disorders: No Genitourinary: No Gastrointestinal: Yes (CHRONIC PANCREATITIS/HX OF HEMORRHAGIC PANCREATITIS;SPLENOMEGALY) Gastroesophageal Reflux, Pancreatitis, Esophageal Varices Musculoskeletal: Yes ( CHRONIC PAIN;MULTIPLE TOE AMPUTATIONS;OSTEOMYELITIS;R HIP FX;L FEMUR FX) Amputee, Degenerate Disk Disease, Arthritis, Chronic Back Pain, Fractures Endocrine: Yes Diabetes, Insulin dep, Hypothyroidsim HEENT: Yes Cataract Cancer: No Psychosocial: Yes (DEMENTIA WITH BEHAVIOR DISTURBANCE;HX OF POLYSUBSTANCE ABUSE) Anxiety, Depression Integumentary: Yes (OSTEOMYELITIS/CELLULITIS OF TOES/FEET;CHRONIC FOOT ULCERS) Blood Disorders: No Family Medical History Cardiovascular disease 19 FATHER 19 MOTHER Diabetes mellitus G8 BROTHER FH: cancer Thyroid disease 19 MOTHER (HYPOTHYROIDISM) No Pertinent Family Hx SOCIAL HISTORY: -ETOH--HX OF ABUSE -DRUGS-HX OF METHADONE USE/ABUSE -SMOKES 2 PPD PAST SURGICAL HISTORY: -RIGHT CATARACT SURGERY 08/2020 -LEFT CATARACT SURGERY 06/2020 -RIGHT HIP FRACTURE 08/09/19--TRANSFERRED TO [facility] -RIGHT GREAT TOE AND 3RD TOE AMPUTATION DUE TO OPEN FRACTURE OF 3RD TOE AND OSTEOMYELITIS 12/[address] ALICEA -AMPUTATIONS OF RIGHT 2ND AND 4TH TOES -AMPUTATIONS OF LEFT GREAT AND SECOND TOES -RIGHT KNEE SURGERY X 4 -BACK SURGERIES--DISCECTOMY/FUSIONS -CARDIAC CATH WITH STENT -CHOLECYSTECTOMY -STENT PLACEMENT IN PANCREAS WITH REMOVAL OF PSEUDOCYST -TRACHEOSTOMY WITH LATER REMOVAL -RIGHT 4TH TOE RAY AMPUTATION 09/11/13 DR. ABDULLAHI BUCKLEY -CARDIAC CATH 12/[address] BEARDEN--MULTI-VESSEL DISEASE/INOPERABLE -11/16/21--FRACTURE OF PROSTHETIC RIGHT HIP/TRANSFERRED TO [facility] AND HAD SURGICAL REPAIR AT THAT TIME. LONG HISTORY OF EXTREME NON-COMPLIANCE IN ALL ASPECTS OF CARE Physical Exam Vital Signs Vital Signs - First Documented 08/31/22 08/31/22 08:20 08:33 Temp 36.0 Pulse 87 Resp 16 B/P (MAP) 156/88 (110) Pulse Ox 90 O2 Delivery Room Air O2 Flow Rate 2.00 Capillary Refill : Less Than 3 Seconds Height, Weight, BMI Height: 5'10.00" Weight: 180lbs. 0.0oz. 81.057471qk; 25.00 BMI Method:Stated General Appearance: WD/WN, Other (ill appearing, uncomfortable) HEENT: PERRL/EOMI, Normal ENT Inspection, Other (MM somewhat dry) Neck: Normal Inspection; No JVD Respiratory: No Accessory Muscle Use, No Respiratory Distress, Crackles (few in bases); No Wheezing Cardiovascular: Regular Rate, Rhythm, No Edema, No Murmur Gastrointestinal: Normal Bowel Sounds, Soft; No Distended; Tenderness (mild, generalized) Extremity: Normal Inspection, Non Tender Neurologic/Psychiatric: Alert, No Motor/Sensory Deficits, Normal Mood/Affect Skin: Warm/Dry, Pallor Focused Exam Lactate Level 08/31/22 11:10: Lactic Acid Level 1.80 Lactic Acid Level Laboratory Tests Test 08/31/22 11:10 Lactic Acid Level 1.80 MMOL/L (0.50-2.00) Progress/Results/Core Measures Suspected Sepsis SIRS Temperature: Pulse: 87 Respiratory Rate: 16 Laboratory Tests 08/31/22 11:10: White Blood Count 13.1H Blood Pressure 156 /88 Mean: 110 08/31/22 11:10: Lactic Acid Level 1.80 Laboratory Tests 08/31/22 11:10: Creatinine 1.27, INR Comment 1.2, Platelet Count 187, Total Bilirubin 0.5 Results/Orders Lab Results Laboratory Tests Test 08/31/22 08:35 08/31/22 08:54 08/31/22 10:00 08/31/22 11:10 Range/Units Glucometer 185 H 70-110 MG/DL Influenza Type A (RT-PCR) Not Detected Not Detecte Influenza Type B (RT-PCR) Not Detected Not Detecte SARS-CoV-2 RNA (RT-PCR) Not Detected Not Detecte Urine Color YELLOW Urine Clarity CLEAR Urine pH 6.0 5-9 Urine Specific [place] >=1.030 1.016-1.022 Urine Protein 3+ H NEGATIVE Urine Glucose (UA) NEGATIVE NEGATIVE Urine Ketones NEGATIVE NEGATIVE Urine Nitrite NEGATIVE NEGATIVE Urine Bilirubin NEGATIVE NEGATIVE Urine Urobilinogen 0.2 < = 1.0 MG/DL Urine Leukocyte Esterase NEGATIVE NEGATIVE Urine RBC (Auto) NEGATIVE NEGATIVE Urine RBC NONE /HPF Urine WBC NONE /HPF Urine Squamous Epithelial Cells RARE /HPF Urine Crystals NONE /LPF Urine Bacteria NEGATIVE /HPF Urine Casts NONE /LPF Urine Mucus NEGATIVE /LPF Urine Culture Indicated NO White Blood Count 13.1 H 4.3-11.0 10^3/uL Red Blood Count 3.80 L 4.30-5.52 10^6/uL Hemoglobin 11.6 L 13.3-17.7 g/dL Hematocrit 35 L 40-54 % Mean Corpuscular Volume 91 80-99 fL Mean Corpuscular Hemoglobin 31 25-34 pg Mean Corpuscular Hemoglobin Concent 33 32-36 g/dL Red Cell Distribution Width 12.8 10.0-14.5 % Platelet Count 187 130-400 10^3/uL Mean Platelet Volume 11.2 9.0-12.2 fL Immature Granulocyte % (Auto) 0 % Neutrophils (%) (Auto) 70 42-75 % Lymphocytes (%) (Auto) 18 12-44 % Monocytes (%) (Auto) 10 0-12 % Eosinophils (%) (Auto) 0 0-10 % Basophils (%) (Auto) 1 0-10 % Neutrophils # (Auto) 9.2 H 1.8-7.8 10^3/uL Lymphocytes # (Auto) 2.3 1.0-4.0 10^3/uL Monocytes # (Auto) 1.4 H 0.0-1.0 10^3/uL Eosinophils # (Auto) 0.0 0.0-0.3 10^3/uL Basophils # (Auto) 0.1 0.0-0.1 10^3/uL Immature Granulocyte # (Auto) 0.1 0.0-0.1 10^3/uL Prothrombin Time 15.3 H 12.2-14.7 SEC INR Comment 1.2 0.8-1.4 Activated Partial Thromboplast Time 34 24-35 SEC D-Dimer 2.58 H 0.00-0.49 UG/ML Sodium Level 142 135-145 MMOL/L Potassium Level 4.2 3.6-5.0 MMOL/L Chloride Level 108 H 98-107 MMOL/L Carbon Dioxide Level 22 21-32 MMOL/L Anion Gap 12 5-14 MMOL/L Blood Urea Nitrogen 45 H 7-18 MG/DL Creatinine 1.27 0.60-1.30 MG/DL Estimat Glomerular Filtration Rate 61 BUN/Creatinine Ratio 35 Glucose Level 128 H 70-105 MG/DL Lactic Acid Level 1.80 0.50-2.00 MMOL/L Calcium Level 8.6 8.5-10.1 MG/DL Corrected Calcium 9.1 8.5-10.1 MG/DL Magnesium Level 1.5 L 1.6-2.4 MG/DL Total Bilirubin 0.5 0.1-1.0 MG/DL Aspartate Amino Transf (AST/SGOT) 17 5-34 U/L Alanine Aminotransferase (ALT/SGPT) 9 0-55 U/L Alkaline Phosphatase 78 40-136 U/L C-Reactive Protein High Sensitivity 14.66 H 0.00-0.50 MG/DL Total Protein 6.4 6.4-8.2 GM/DL Albumin 3.4 3.2-4.5 GM/DL Lipase < 4 L 8-78 U/L Thyroid Stimulating Hormone (TSH) 3.97 0.35-4.94 UIU/ML Free Thyroxine 0.83 0.70-1.48 NG/DL Valproic Acid (Depakene) Level 26.0 L 50.0-100.0 UG/ML My Orders Orders - CAROL CARRILLO MD Cbc With Automated Diff (08/31/22 08:49) Comprehensive Metabolic Panel (08/31/22 08:49) Hs C Reactive Protein (08/31/22 08:49) Magnesium (08/31/22 08:49) Ua Culture If Indicated (08/31/22 08:49) Ed Iv/Invasive Line Start (08/31/22 08:49) O2 (08/31/22 08:49) Monitor-Rhythm Ecg Trace Only (08/31/22 08:49) Chest 1 View, Ap/Pa Only (08/31/22 08:49) Covid 19 Inhouse Test (08/31/22 08:49) Influenza A And B By Pcr (08/31/22 08:49) Lipase (08/31/22 09:04) Orourke Cath (08/31/22 09:04) Accucheck Stat ONCE (08/31/22 09:14) Thyroid Stimulating Hormone (08/31/22 09:14) Free T4 (Free Thyroxine) (08/31/22 09:14) Valproic Acid (08/31/22 09:16) Hyoscyamine Sl Tablet (Levsin Sl Tablet) (08/31/22 09:30) Covid 19 Inhouse Test (08/31/22 10:44) Influenza A And B By Pcr (08/31/22 10:44) Blood Culture (08/31/22 10:44) Sputum Culture (08/31/22 10:44) Protime With Inr (08/31/22 10:44) Partial Thromboplastin Time (08/31/22 10:44) Vital Signs Adult Sepsis Patie Q15M (08/31/22 10:44) Remove Rings In Anticipation O (08/31/22 10:44) Lactic Acid Analyzer (08/31/22 10:44) Chest 1 View, Ap/Pa Only (08/31/22 11:06) Consult Physician (08/31/22 11:06) Fentanyl Inj (Sublimaze Injection) (08/31/22 12:45) Ondansetron Injection (Zofran Injectio (08/31/22 12:45) Iohexol Injection (Omnipaque 350 Mg/Ml 1 (08/31/22 13:30) Received Contrast (Hold Metformin- Contr (08/31/22 13:30) Ns (Ivpb) (Sodium Chloride 0.9% Ivpb Bag (08/31/22 13:30) Fibrin Degradation Products (08/31/22 14:28) Ceftriaxone Iv/Im (Rocephin Iv/Im) (08/31/22 14:29) Ct Chest/Abdomen/Pelvis Wo (08/31/22 15:01) Ns Iv 1000 Ml (Sodium Chloride 0.9%) (08/31/22 15:15) Enoxaparin Injection (Lovenox Injection) (08/31/22 17:00) Medications Given in ED Vital Signs/I&O 08/31/22 08/31/22 08/31/22 08:20 08:33 17:43 Temp 36.0 Pulse 87 100 Resp 16 16 B/P (MAP) 156/88 (110) 162/101 Pulse Ox 90 90 96 O2 Delivery Room Air Nasal Cannula Nasal Cannula O2 Flow Rate 2.00 09/01/22 00:00 Intake Total 50 ml Balance 50 ml Capillary Refill : Less Than 3 Seconds Blood Pressure Mean: 110 Point of Care Testing Finger Stick Blood Glucose: 185 Blood Glucose Action Taken: RN NOTIFIED Progress Note : Progress Note Patient was interviewed and examined shortly after arrival. Levsin was administered for cramping and diarrhea. Labs were reviewed and interpreted by me. CBC demonstrated leukocytosis. CMP revealed elevated BUN of 45 but was otherwise unremarkable. UA revealed no pyuria. TSH and Free T4 were normal. Vascular access was a major problem for obtaining labs and providing medications. Care was delayed several hours in attempts to obtain vascular access. Nursing staff failed to establish peripheral IV. Supervisor [employer] attempted PICC x 2 without success. I personally attempted IV x 2 with US guidance without success. Charles Marc, painter assistant to Dr. Henderson (general surgeon) was consulted and attempted a left subclavian central line. This line seemed to work but was looped in the left jugular on x-ray. It was adjusted to a more agreeable position. Patient was taken to CT for antiogram to evaluate for PE. technical aide noted the brown port of the central line worked without difficulty but the other 2 ports caused pain when flushed. Due to the questionable positing of the central line and pain with use, we abandoned the CTA and obtained CT without contrast. I discussed the central line with Dr. Henderson multiple times. He suggested using the brown port for fluids and medications but not CT. He will consider replacement in the morning. Patient was believed to have pneumonia based on imaging. Initial treatement with Rocephin was started in the ER after satisfactory line placement was established. Care times will not meet benchmarks as vascular access complicat ions delayed care significantly. PE could not be ruled out without CTA. A therapeutic dose of Lovenox was given in the ED empirically after the elevated D-Dimer waas noted. CRP elevation added to the suspicion of pneumonia. Case was discussed with Dr. Bradshaw who accepted admission. Lactic acid was normal. All chest x-rays and CT images were viewed and interpreted by me. Line placement concerns were noted as above. There was evidence of infiltrate vs. pnemonitis in LLL on x-rays. CT revealed concern for effusion and/or consolidated infiltrate in the left lung. Constipation was noted on the CT abdomen. Diagnostic Imaging Diagonstic Imaging: Xray Plain Films/CT/US/NM/MRI: chest Comments NAME: JOLLY MANZANARES [facility] REC#: [id number] PT STATUS: REG ER : 1950 PHYSICIAN: CAROL CARRILLO MD ADMIT DATE: 08/31/22/ER Signed Date of Exam:08/31/22 CHEST 1 VIEW, AP/PA ONLY HISTORY: Shortness of air, hypoxia COMPARISON: 12/09/2021 TECHNIQUE: Frontal view the chest FINDINGS: Lung volumes are normal. There is airspace opacity along the peripheral left lung. There is no large effusion or pneumothorax seen. The cardiac silhouette is stable in size. There are old left-sided rib fractures. IMPRESSION: 1. Airspace opacity in the peripheral left lung, may be due to infection in the appropriate clinical setting. Recommend follow-up to resolution. Dictated by: Dictated on workstation # [id number] Dict: 08/31/2218 Trans: 08/31/22 0949 [facility] [id number] Interpreted by: CHIQUITA BUCKNER MD Electronically signed by: CHIQUITA BUCKNER MD 08/31/22 0949 Diagonstic Imaging: CT Plain Films/CT/US/NM/MRI: chest, abdomen, pelvis Comments NAME: JOLLY MANZANARES [facility] REC#: [id number] PT STATUS: REG ER : 1950 PHYSICIAN: CAROL CARRILLO MD ADMIT DATE: 08/31/22/ER Signed Date of Exam:08/31/22 CT CHEST/ABDOMEN/PELVIS WO PROCEDURE: CT chest, abdomen, and pelvis without contrast. TECHNIQUE: Multiple contiguous axial images were obtained through the chest, abdomen, and pelvis without the use of intravenous contrast. Auto Exposure Controls were utilized during the CT exam to meet ALARA standards for radiation dose reduction. INDICATION: Abdominal pain, back pain and hypoxia. FINDINGS: There is left basilar atelectasis and/or pneumonitis. There is a left pleural effusion. There are extensive coronary artery calcifications. There is no pneumothorax. There is no suspicious pulmonary nodule, mass or infiltrate in the right lung. There is no pathologically enlarged adenopathy in the chest. There are degenerative changes in the spine. There is a chronic appearing T8 compression fracture. The liver is normal in size and without focal lesion. Gallbladder surgically absent. There is no biliary ductal dilatation. Spleen is normal. There is chronic calcific pancreatitis. The adrenal glands are unremarkable. There are chronic appearing inflammatory changes about both kidneys. There is moderate atherosclerotic calcification about the aorta which is nonaneurysmal. Bowel gas pattern is nonspecific. There is a moderate amount of retained fecal material likely reflecting some degree of constipation, particularly in the rectum. There is a Orourke catheter in place. There is no pelvic mass or adenopathy. IMPRESSION: 1. Left basilar atelectasis and/or pneumonitis in the left pleural effusion. 2. Coronary artery calcification. 3. Findings compatible with chronic calcific pancreatitis. 4. Chronic inflammatory changes about the kidneys. 5. Large amount of retained fecal material likely reflecting some degree of constipation. 6. Diffuse thoracolumbar spondylosis with a chronic appearing T8 compression fracture. Dictated by: Dictated on workstation # [id number] Dict: 08/31/22 1528 Trans: 08/31/[address] [facility] [id number] Interpreted by: RIGO GOMEZ MD Electronically signed by: RIGO GOMEZ MD 08/31/22 1621 Departure Communication (Admissions) Time/Spoke to Admitting Phy: 16:50 Dr. Bradshaw Impression Primary Impression: Left lower lobe pneumonia Qualified Codes: J18.9 - Pneumonia, unspecified organism Additional Impressions: Hypoxia Diarrhea Qualified Codes: R19.7 - Diarrhea, unspecified Elevated d-dimer Disposition: ADMITTED INPATIENT Condition: Improved Admissions Decision to Admit Reason: Admit from ER (General) Decision to Admit/Date: August 31, 2022 Time/Decision to Admit Time: 16:50 Departure-Patient Inst. Referrals: JOLLY DELANEY MD (PCP/Family) Primary Care Physician Copy Copies To 1: [facility]/CAROL WEBB MD August 31, 2022 09:59
[2022-08-31 10:05] LABS: BILIRUBIN,URINE NEGATIVE (NEGATIVE); CLARITY,URINE CLEAR; COLOR,URINE YELLOW; GLUCOSE, URINE (UA) NEGATIVE (NEGATIVE); KETONES,URINE NEGATIVE (NEGATIVE); LEUKOCYTE ESTERASE ,URINE NEGATIVE (NEGATIVE); NITRITE,URINE NEGATIVE (NEGATIVE); PROTEIN,URINE 3+ (NEGATIVE)
[2022-08-31 10:26] LABS: BACTERIA,URINE NEGATIVE /HPF; SQUAMOUS EPITHELIAL CELL,UR RARE /HPF
[2022-08-31 11:22] LABS: BASOPHILS # (AUTO) 0.1 10^3/uL (0.0-0.1); BASOPHILS % (AUTO) 1 % (0-10); EOSINOPHILS % (AUTO) 0 % (0-10); HEMATOCRIT 35 % (40-54); HEMOGLOBIN 11.6 g/dL (13.3-17.7); LYMPHOCYTES # (AUTO) 2.3 10^3/uL (1.0-4.0); LYMPHOCYTES % (AUTO) 18 % (12-44); MEAN CORPUSCULAR HEMOGLOBIN 31 pg (25-34); MEAN CORPUSCULAR HGB CONC 33 g/dL (32-36); MEAN CORPUSCULAR VOLUME 91 fL (80-99); MEAN PLATELET VOLUME 11.2 fL (9.0-12.2); MONOCYTES # (AUTO) 1.4 10^3/uL (0.0-1.0); MONOCYTES % (AUTO) 10 % (0-12); NEUTROPHILS # (AUTO) 9.2 10^3/uL (1.8-7.8); NEUTROPHILS % (AUTO) 70 % (42-75); PLATELET COUNT 187 10^3/uL (130-400); WHITE BLOOD COUNT 13.1 10^3/uL (4.3-11.0)
[2022-08-31 11:37] LABS: ALBUMIN 3.4 GM/DL (3.2-4.5); CHLORIDE 108 MMOL/L (98-107); POTASSIUM 4.2 MMOL/L (3.6-5.0); SODIUM 142 MMOL/L (135-145)
[2022-08-31 11:38] LABS: CALCIUM 8.6 MG/DL (8.5-10.1)
[2022-08-31 11:39] LABS: GLUCOSE 128 MG/DL (70-105); INR 1.2 (0.8-1.4); PROTHROMBIN TIME PATIENT 15.3 SEC (12.2-14.7); TOTAL PROTEIN 6.4 GM/DL (6.4-8.2)
[2022-08-31 11:41] LABS: BILIRUBIN,TOTAL 0.5 MG/DL (0.1-1.0); CARBON DIOXIDE 22 MMOL/L (21-32)
[2022-08-31 11:43] LABS: ALKALINE PHOSPHATASE 78 U/L (40-136); CREATININE SERUM 1.27 MG/DL (0.60-1.30); GFR ESTIMATED 61
[2022-08-31 11:44] LABS: BUN/CREATININE RATIO 35
[2022-08-31 11:46] LABS: ALANINE AMINOTRANSFERASE 9 U/L (0-55); MAGNESIUM 1.5 MG/DL (1.6-2.4)
[2022-08-31 11:47] LABS: LIPASE < 4 U/L (8-78)
--- NOTE | 2022-08-31 11:54 | Diagnostic Imaging Report ---
HISTORY: Central line placement TECHNIQUE: Frontal view the chest COMPARISON: 08/31/2022 FINDINGS: The tip of the central line projects over the left internal jugular/innominate vein. Airspace opacities in the peripheral left lung are unchanged. The remainder of the chest is unchanged. IMPRESSION: 1. The tip of the left central line projects over the left internal jugular/innominate vein. Recommend repositioning. 2. Redemonstrated peripheral airspace opacity in the left lung. Findings discussed with CAROL CARRILLO MD by Dr. Jimenez, on 08/31/2022 11:46 AM. Dictated by: Dictated on workstation # [id number]
[2022-08-31 12:08] LABS: FREE T4 (FREE THYROXINE) 0.83 NG/DL (0.70-1.48)
--- NOTE | 2022-08-31 12:31 | Diagnostic Imaging Report ---
INDICATION: Line placement Comparison is made with prior exam of 08/31/2022 at 11:32 AM, this was done at 12:18 PM FINDINGS: The left subclavian catheter is again in place. Tip appears to be within the innominate vein. There is cardiomegaly. There is some venous congestion. There is pleural effusion or pneumothorax IMPRESSION: Abnormal placement of a left subclavian central venous catheter which has its tip in the region of the innominate vein. Cardiomegaly and some central pulmonary venous congestion. Dictated by: Dictated on workstation # [id number]
[2022-08-31] MEDS ORDERED: ONDANSETRON 4 MG/2 ML (SDV) Z0FRAN IVP ONE (12:45)
[2022-08-31] MEDS ORDERED: fentaNYL INJ 100 MCG/2 ML AMP IVP ONE (12:45)
--- NOTE | 2022-08-31 13:15 | CONSULTATION REPORT ---
DATE OF SERVICE: 08/31/2022 HISTORY OF PRESENT ILLNESS: The patient is a 72-year-old male who is brought to the emergency department by EMS from [facility] in rehab. He states that he has not felt good for several days and began having shortness of breath as well as diarrhea. The facility staff reports that he had a pulse ox reading of 88-90 on room air when lying on his back. He did have an x-ray in the ER, which did show airspace opacity in the peripheral left lung, which may be due to infection, most likely consistent with pneumonia. We were consulted due to poor peripheral venous access and multiple attempts IVs were attempted as well as under ultrasound with no success. We were then consulted for placement of central line placement as he will need admitted and will need IV fluids as well as antibiotics. MEDICAL HISTORY: Hypertension, dementia, depression, anxiety, type 2 diabetes, insulin-dependent, seizures, BPH, COPD, peripheral vascular disease, anemia, arthritis, neuropathy. PAST SURGICAL HISTORY: Right cataract surgery 2000, left cataract surgery 2000, right hip fracture 07/2019, right great toe and third toe amputation due to open fracture of third toe and osteomyelitis 12/2019, right second and fourth toe amputation, left great and second toe amputation, right knee surgery x4. Back diskectomy and fusion, cardiac catheterization with stent placement, cholecystectomy, pancreatic stent placement and removal of pseudocyst tracheostomy and later removal, right fourth toe ray amputation, repair of fractured hip prosthetic. ALLERGIES: ACETAMINOPHEN. MEDICATIONS: Tylenol 500 mg 2 tablets every 8 hours p.r.n., albuterol sulfate nebulizer 2.5 mg per 3 mL p.r.n. shortness of breath, aspirin 81 mg b.i.d., cefdinir 300 mg b.i.d., vitamin D3 125 mcg daily, clonazepam 0.5 mg b.i.d., clonidine 0.2 mg b.i.d., Plavix 75 mg daily, divalproex sodium 125 mg t.i.d., docusate 100 mg b.i.d., Aricept 10 mg at bedtime, Trulicity 0.5 mg on Friday, enalapril 2.5 mg daily, Lexapro 5 mg daily, ferrous sulfate 325 mg every 48 hours, gabapentin 300 mg at bedtime, glucagon p.r.n., hydrocodone 5/325 mg 1-2 tablets every 6 hours p.r.n., Vascepa 1 gram b.i.d., NovoLog 7 units a.c., Levemir 15 units daily, lactobacillus acidophilus 1 q.i.d., lansoprazole 15 mg daily., Keppra 500 mg b.i.d., levothyroxine 175 mcg daily, lorazepam 1 mg every 8 hours p.r.n., Mylanta suspension 30 mL every 4 hours p.r.n., milk of magnesia 30 mL daily p.r.n., melatonin 3 mg at bedtime, [ ] 5 mg at bedtime, metformin 500 mg b.i.d., metoprolol 50 mg b.i.d., mirtazapine 15 mg at bedtime, multivitamin daily, nicotine patch daily, Systane eyedrops both eyes b.i.d., simvastatin 10 mg at bedtime, Flomax 0.4 mg daily, vitamin B1 100 mg daily, tramadol 50 mg 1-2 tablets every 6 hours p.r.n., venlafaxine ER 75 mg daily. SOCIAL HISTORY: History of alcohol abuse. Positive for tobacco smoke 2 packs per day, history of methadone use. FAMILY HISTORY: Father, cardiovascular disease. Mother, thyroid disease, cardiovascular disease. Brother, diabetes mellitus. VITAL SIGNS: Blood pressure is 156/88, pulse 87, respirations 16, pulse ox 90% on room air, temperature is 36.0 degrees Celsius. REVIEW OF SYSTEMS: This is a well-nourished elderly male in no acute distress. He does report shortness of breath, but no difficulty breathing. No chest pain, palpitations or diaphoresis. No nausea, vomiting. He did report abdominal pain. He did report episodes of diarrhea. No constipation. No red blood per rectum. No dark tarry stools. No fever or chills. No recent inadvertent weight loss. All other review of systems negative. PHYSICAL EXAM: CHEST: Diminished breath sounds with bilateral rales and rhonchi. HEART: Regular. No murmurs. EXTREMITIES: No lower extremity edema. Negative Homans sign. HEENT: No scleral icterus. No cervical lymphadenopathy. ABDOMEN: Soft, nondistended, nontender. SKIN: Warm, dry and pink. NEUROLOGIC: Awake and alert with episodes of confusion. ASSESSMENT AND PLAN: A 72-year-old male with left lung pneumonia, who also has poor peripheral venous access. At this time, multiple attempts have been made to establish an IV with no success. At this time, we will proceed with placement of a left subclavian central venous catheter. He will then be admitted for IV fluids as well as IV antibiotics. Job ID: [id number] DocumentID: [id number] Dictated Date: 08/31/2022 12:39:20 [employer] Date: 08/31/2022 13:12:00 Dictated By: ILDA JACKSON APRN
[2022-08-31] MEDS ORDERED: IOHEXOL 350 MG/ML 100 ML (OMNIPAQUE 350) VIAL IV ONE (13:30)
[2022-08-31] MEDS ORDERED: NS 100 ML (IVPB) BAG IV ONE (13:30)
[2022-08-31] MEDS ORDERED: HOLD METFORMIN - RECEIVED CONTRAST 20 ML VIAL IV SCH (13:30)
[2022-08-31] MEDS ORDERED: cefTRIAXone IV/IM 1,000 MG in NS (IVPB) 50 ML IV STA (14:29)
[2022-08-31] MEDS ORDERED: NS IV 1000 ML 1,000 ML IV SCH (15:15)
--- NOTE | 2022-08-31 16:10 | Diagnostic Imaging Report ---
PROCEDURE: CT chest, abdomen, and pelvis without contrast. TECHNIQUE: Multiple contiguous axial images were obtained through the chest, abdomen, and pelvis without the use of intravenous contrast. Auto Exposure Controls were utilized during the CT exam to meet ALARA standards for radiation dose reduction. INDICATION: Abdominal pain, back pain and hypoxia. FINDINGS: There is left basilar atelectasis and/or pneumonitis. There is a left pleural effusion. There are extensive coronary artery calcifications. There is no pneumothorax. There is no suspicious pulmonary nodule, mass or infiltrate in the right lung. There is no pathologically enlarged adenopathy in the chest. There are degenerative changes in the spine. There is a chronic appearing T8 compression fracture. The liver is normal in size and without focal lesion. Gallbladder surgically absent. There is no biliary ductal dilatation. Spleen is normal. There is chronic calcific pancreatitis. The adrenal glands are unremarkable. There are chronic appearing inflammatory changes about both kidneys. There is moderate atherosclerotic calcification about the aorta which is nonaneurysmal. Bowel gas pattern is nonspecific. There is a moderate amount of retained fecal material likely reflecting some degree of constipation, particularly in the rectum. There is a Orourke catheter in place. There is no pelvic mass or adenopathy. IMPRESSION: 1. Left basilar atelectasis and/or pneumonitis in the left pleural effusion. 2. Coronary artery calcification. 3. Findings compatible with chronic calcific pancreatitis. 4. Chronic inflammatory changes about the kidneys. 5. Large amount of retained fecal material likely reflecting some degree of constipation. 6. Diffuse thoracolumbar spondylosis with a chronic appearing T8 compression fracture. Dictated by: Dictated on workstation # [id number]
[2022-08-31] MEDS ORDERED: ENOXAPARIN 80 MG/0.8 ML (LOVENOX) SYR SC ONE (17:00)
[2022-08-31 17:57] VITALS: BP 178/90
--- NOTE | 2022-08-31 18:52 | OPERATIVE REPORT ---
DATE OF SERVICE: 08/31/2022 PREOPERATIVE DIAGNOSES: Left lung pneumonia, poor venous access. PREOPERATIVE DIAGNOSES: Left lung pneumonia, poor venous access. PROCEDURE: Placement of left subclavian central venous catheter. SURGEON: Dr. Henderson. STATISTICS PROFESSOR: Charles Jackson APRN ANESTHESIA: Local anesthesia. DISPOSITION: The patient tolerated the procedure well. INDICATIONS: This is a 72-year-old male who was brought to the emergency department with shortness of breath as well as diarrhea. He was found to have a left lung pneumonia and that several attempts to IVs tried as well as access under ultrasound guidance with no success. We were then consulted for placement of central venous catheter due to patient needing IV fluids as well as IV antibiotics. DESCRIPTION OF PROCEDURE: The patient was positioned in supine. The chest and neck were prepped and draped in a standard surgical fashion. The left subclavian vein was then cannulated with drawing a venous blood. Guidewire was then inserted. The cannulating needle was then withdrawn and a small skin incision was made and a dilator was placed over the guidewire. The dilator was then removed and the central venous catheter was then guided over the guidewire. The guidewire was then removed and the catheter was then sutured in place and this did draw and flush easily. An Op-Site dressing was then applied. The patient tolerated the procedure well. We will get a post-procedure chest x-ray. Job ID: [id number] DocumentID: [id number] Dictated Date: 08/31/2022 12:48:39 [employer] Machine Operator Date: 08/31/2022 18:50:00 Dictated By: CHARLES JACKSON APRN
[2022-08-31 19:42] VITALS: BP 205/98
[2022-08-31 19:49] VITALS: BP 178/90
[2022-08-31] MEDS ORDERED: RT-ALBUTEROL SULF 2.5 MG/3 ML PRE-MIX VIAL INH PRN (20:00)
[2022-08-31] MEDS ORDERED: ENALAPRIL 10 MG (VASOTEC) TAB PO ONE (20:00)
[2022-08-31] MEDS ORDERED: ENALAPRIL 10 MG (VASOTEC) TAB ONE (20:25)
[2022-08-31] MEDS ORDERED: ONDANSETRON 4 MG/2 ML (SDV) Z0FRAN IV PRN (20:45)
[2022-08-31] MEDS: RT-ALBUTEROL SULF 2.5 MG/3 ML PRE-MIX VIAL INH SCH (21:11)
[2022-08-31 21:23] VITALS: BP 194/91
[2022-08-31] MEDS ORDERED: meTOprolol TARTRATE 50 MG (LOPRESSOR) TAB PO ONE (21:30)
[2022-08-31] MEDS: LACTATED RINGERS 1,000 ML IV SCH (21:41)
[2022-08-31] MEDS: CEFEPIME 1,000 MG/NS 50 ML IVPB IV SCH ×2 (21:41)
[2022-08-31] MEDS: inSUlin ASPART (NovoLOG) 1 UNIT/0.01 ML (CHARGE PER UNIT) SC SCH (21:42)
[2022-08-31] MEDS: DIVALPROEX 250 MG DELAYED RELEASE (DEPAKOTE) TAB PO SCH (21:42)
[2022-08-31 23:30] VITALS: BP 184/84
[2022-08-31] MEDS: cloNIDine 0.1 MG (CATAPRES) TAB PO PRN (23:45)
[2022-09-01] MEDS: CEFEPIME 1,000 MG/NS 50 ML IVPB IV SCH ×8 (03:34→21:05)
[2022-09-01 03:35] VITALS: BP 186/81
[2022-09-01] MEDS: cloNIDine 0.1 MG (CATAPRES) TAB PO PRN (03:41)
[2022-09-01] MEDS ORDERED: ENOXAPARIN 80 MG/0.8 ML (LOVENOX) SYR SC SCH (05:00)
[2022-09-01] MEDS: LACTATED RINGERS 1,000 ML IV SCH ×3 (06:10→15:44)
[2022-09-01] MEDS: inSUlin ASPART (NovoLOG) 1 UNIT/0.01 ML (CHARGE PER UNIT) SC SCH ×4 (06:10→20:48)
[2022-09-01 07:51] VITALS: BP 154/83
[2022-09-01] MEDS ORDERED: POLY17PO6 PO (08:56)
[2022-09-01] MEDS ORDERED: OLN5T PO (08:56)
[2022-09-01] MEDS ORDERED: cloNIDine 0.2 MG PATCH (CATAPRES TTS) TDSY TD SCH (09:00)
[2022-09-01] MEDS: meTOprolol TARTRATE 50 MG (LOPRESSOR) TAB PO SCH ×2 (09:16→21:04)
[2022-09-01] MEDS: DIVALPROEX 250 MG DELAYED RELEASE (DEPAKOTE) TAB PO SCH ×3 (09:17→21:04)
[2022-09-01] MEDS: ENALAPRIL 10 MG (VASOTEC) TAB PO SCH ×2 (09:17→21:04)
[2022-09-01] MEDS: CLOPIDOGREL 75 MG (PLAVIX) TABLET PO SCH (09:17)
--- NOTE | 2022-09-01 10:16 | History & Physical-Hospitalist ---
History of Present Illness HPI/Chief Complaint This 72 year old gentleman from [facility] presents to the ER with vague complaints of not feeling well. He generally complains of aching all over and having diarrhea. He is afebrile. He normally does not require O2 support but was note to have an O2 sat of 88% in the senior living. O2 sat on arrival to the ER was 90%. He appears ill and pale. He is not in significant distress, but does appear uncomfortable. He is limited historian due to dementia. He has a history of seizures but no seizure activity was witnessed Upon my arrival the patient was confused he was sitting on a bedpan but reporti ng that he needed to go to the bathroom to have a bowel movement. He denied pain but had been quite confused over the evening he could answer simple questions although accuracy is question an individual whom I am assuming has baseline dementia requiring Aricept and caring a diagnosis of dementia with agitated behavior for which she has been receiving valproic acid. Unable to obtain further Reliable history secondary to confusion. Date Seen 09/01/22 Time Seen by a Provider: 10:13 Attending Physician [place] PCP Admitting Physician: Bernardo Bradshaw MD Attending Physician: Bernardo Bradshaw MD Referring Physician Date of Admission August 31, 2022 at 17:47 Home Medications & Allergies Home Medications Reviewed patient Home Medication Reconciliation performed by pharmacy medication reconciliations area intelligence technician and/or nursing. Patients Allergies have been reviewed. Allergies Allergies Coded Allergies acetaminophen (Verified Allergy, Intermediate, 10/26/17) Past Goqmjdj-Ujkctr-Edvcih Hx Patient Social History Tobacco Use?: Yes Tobacco type used: Cigarettes Smoking Status: Current Everyday Smoker Smokeless Tobacco Frequency: Current Everyday User Use of E-Cig and/or Vaping dev: No Substance use?: No Alcohol Use?: No Alcohol Frequency: Once in a while Pt feels they are or have been: No Immunizations Up To Date Date of Influenza Vaccine: Feb 12, 2019 First/Initial COVID19 Vaccinat: 04/27/20 Second COVID19 Vaccination Joaquin: 05/18/20 Tetanus Booster (TDap): Unknown PED Vaccines UTD: Yes Date of Pneumonia Vaccine: Jul 16, 2017 Seasonal Allergies Seasonal Allergies: No Current Status Advance Directives: No Communicates: Verbally Primary Language: Lao Preferred Spoken Language: Lao Is interpretation needed?: No Past Medical History Surgeries: Amputation, Cardiac, Coronary Stent, Eye Surgery, Orthopedic, Tracheostomy COPD Currently Using CPAP: No Currently Using BIPAP: No Angina, Coronary Artery Disease, High Cholesterol, Hypertension, Peripheral Vascular Dementia, Neuropathy, Seizure Disorder, Stroke Gastroesophageal Reflux, Pancreatitis, Esophageal Varices Amputee, Degenerate Disk Disease, Arthritis, Chronic Back Pain, Fractures Diabetes, Insulin dep, Hypothyroidsim Cataract Anxiety, Depression Blood Disorders: No Past Medical History 1. COPD 2. CAD s/p stent placement in the - previously followed by Dr. Buckley, not compliant with medications of follow up-severe multivessle -inoperable 3. Diabetes Mellitus Type 2 - insulin requiring; non-compliant w/ insulin 4. Diabetic Neuropathy 5. Chronic pancreatitis- history of hemorrhagic pancreatitis 6. Degenerative Disk Disease, Arthritis 7. Seizure history- secondary to previous CVA, methadone use and alcohol use 8. Carotid stenosis - moderate 9. Hx of TIA and CVA 10. Depression/Anxiety 11. Hypothyroidism 12. Diabetic Retinopathy 13. History of Pseudohyponatremia secondary severely elevated blood glucose 14. Tobaccoism 15. Esophageal Varices with portal hypertension and hx of enlarged spleen 16. ASOD- bilateral severe, evaluated at [place] 17. H/O respiratory failure with tracheostomy and reversal 18. History of Gangrene sp resection of toe 09-11-13 19. Illicit drug use- Methadone use, Alcohol use 20. Chronic fracture left femur pathologic appearing 21. Stomach thickening quesitonable for malignancy- GI was recommended outpatient PSH: 1. R Knee surgery x4 2. Back surgery - lumbar discectomy w/ vertebral fusion 3. Coronary Stent 4. cholecystectomy 5. Stent placement in pancreas with pseudocyst removal 6. Tracheostomy with removal 7. RT. 4th toe ray amputation- 09-11-13 Abdullahi Buckley 8. Cardiac Cath 12-26 Christin with inoperable multivessle coronary artery disease. Family Medical History Cardiovascular disease 19 FATHER 19 MOTHER Diabetes mellitus G8 BROTHER FH: cancer Thyroid disease 19 MOTHER (HYPOTHYROIDISM) No Pertinent Family Hx SOCIAL HISTORY: -ETOH--HX OF ABUSE -DRUGS-HX OF METHADONE USE/ABUSE -SMOKES 2 PPD PAST SURGICAL HISTORY: -RIGHT CATARACT SURGERY 08/2020 -LEFT CATARACT SURGERY 06/2020 -RIGHT HIP FRACTURE 08/09/19--TRANSFERRED TO [facility] -RIGHT GREAT TOE AND 3RD TOE AMPUTATION DUE TO OPEN FRACTURE OF 3RD TOE AND OSTEOMYELITIS 12/[address] ALICEA -AMPUTATIONS OF RIGHT 2ND AND 4TH TOES -AMPUTATIONS OF LEFT GREAT AND SECOND TOES -RIGHT KNEE SURGERY X 4 -BACK SURGERIES--DISCECTOMY/FUSIONS -CARDIAC CATH WITH STENT -CHOLECYSTECTOMY -STENT PLACEMENT IN PANCREAS WITH REMOVAL OF PSEUDOCYST -TRACHEOSTOMY WITH LATER REMOVAL -RIGHT 4TH TOE RAY AMPUTATION 09/11/13 DR. ABDULLAHI BUCKLEY -CARDIAC CATH 12/[address] BEARDEN--MULTI-VESSEL DISEASE/INOPERABLE -11/16/21--FRACTURE OF PROSTHETIC RIGHT HIP/TRANSFERRED TO [facility] AND HAD SURGICAL REPAIR AT THAT TIME. LONG HISTORY OF EXTREME NON-COMPLIANCE IN ALL ASPECTS OF CARE Review of Systems Constitutional: see HPI Physical Exam Physical Exam Vital Signs Vital Signs - First Documented 08/31/22 08/31/22 08/31/22 08:20 08:33 19:49 Temp 36.0 Pulse 87 Resp 16 B/P (MAP) 156/88 (110) Pulse Ox 90 O2 Delivery Room Air O2 Flow Rate 2.00 FiO2 2 Capillary Refill : Less Than 3 Seconds Height, Weight, BMI Height: 5'10.00" Weight: 180lbs. 0.0oz. 81.815482yu; 25.85 BMI Method:Stated General Appearance: No Apparent Distress HEENT: Pale Conjunctivae (L), Pale Conjunctivae (R) Respiratory: No Accessory Muscle Use, No Respiratory Distress, Other (Tachypnea with high flow O2 going breath sounds coarse anteriorly diminished breath sounds in the left lower lobe and to a lesser degree right lower lobe with a few dry sounding rales.) Cardiovascular: Regular Rate, Rhythm, No Edema, No Gallop, No JVD, No Murmur Gastrointestinal: Normal Bowel Sounds, No Organomegaly, No Pulsatile Mass, Non Tender, Soft Extremity: No Calf Tenderness, No Pedal Edema, Other ( Multiple bilateral toe amputations no open sores on the feet. A significant sarcopenia diffusely and atrophy of the foot muscles.) Results Results/Procedures Labs Laboratory Tests 08/31/22 11:10 Patient resulted labs reviewed. Assessment/Plan Admission Diagnosis 1. Presumed left lower lobe pneumonia with pleural effusion cefepime has been initiated after. Empyema is in the differential however the patient has d ementia with history of agitated behavior so risks of thoracentesis consideration for chest tube placement etc. are outweighed by benefit. It is unclear whether or not he has any family in the area I have asked staff to inquire he would be best served not to be resuscitated considering multiple med ical problems with advanced dementia and history of longstanding agitated behavior as well as longstanding medical noncompliance. Patient critically ill with poor prognosis. 2. Presumed Alzheimer's dementia with agitated behavior. 3. Coronary artery disease 4. Longstanding hypertension considering blood pressure elevation we will replace oral clonidine with a clonidine patch 0.2 and continue enalapril. 5. Dehydration likely gastroenteritis if diarrhea persists will obtain stool for C. difficile as I cannot ascertain if there has been any recent antibiotic use. Continue IV fluids. Admission Status: Inpatient Order (span 2 midnights) Reason for Inpatient Admission: see admission diagnosis Critical Care Critically Ill Patient BERNRADO BRADSHAW MD September 01, 2022 10:16
--- NOTE | 2022-09-01 10:17 | Progress Note ---
Subjective Date Seen by a Provider: September 01, 2022 Time Seen by a Provider: 10:10 Subjective/Events-last exam Patient seen with Dr. Henderson. Patient confused but denies any abdominal pain, nausea, vomiting, or SOA. Central line brown and blue ports flushed without issues, white port did leak out insertion site. Focused Exam Lactate Level 08/31/22 11:10: Lactic Acid Level 1.80 Objective Exam Vital Signs Date Time Temp Pulse Resp B/P (MAP) Pulse Ox O2 Delivery O2 Flow Rate FiO2 09/01/22 08:00 Nasal Cannula 2.00 09/01/22 07:51 36.1 83 18 154/83 (106) 96 Nasal Cannula 2.00 09/01/22 07:00 70 09/01/22 03:35 36.4 75 18 186/81 (116) 98 Nasal Cannula 2.00 2.00 09/01/22 00:48 73 08/31/22 23:30 36.5 65 18 184/84 (117) 98 Nasal Cannula 2.00 2.00 08/31/22 21:23 194/91 (125) 08/31/22 21:11 Nasal Cannula 2.00 08/31/22 19:49 36.0 96 97 2 08/31/22 19:42 36.7 99 18 205/98 (133) 97 Nasal Cannula 2.00 2.00 08/31/22 19:30 Nasal Cannula 2.00 08/31/22 19:23 111 08/31/22 18:40 Nasal Cannula 2.00 08/31/22 17:57 36.0 96 16 178/90 (119) 97 Nasal Cannula 2.00 2.00 08/31/22 17:43 100 16 162/101 96 Nasal Cannula I & O0 09/01/22 07:00 Intake Total 850 ml Output Total 1300 ml Balance -450 ml Capillary Refill : Less Than 3 Seconds General Appearance: No Apparent Distress, WD/WN, Chronically ill Neck: Normal Inspection, Supple Respiratory: No Accessory Muscle Use, No Respiratory Distress Gastrointestinal: normal bowel sounds, non tender, soft Neurologic/Psychiatric: Alert, Normal Mood/Affect, Other (Confused) Skin: Normal Color, Warm/Dry Results Lab Laboratory Tests 08/31/22 11:10: White Blood Count 13.1H, Red Blood Count 3.80L, Hemoglobin 11.6L, Hematocrit 35L , Mean Corpuscular Volume 91, Mean Corpuscular Hemoglobin 31, Mean Corpuscular Hemoglobin Concent 33, Red Cell Distribution Width 12.8, Platelet Count 187, Mean Platelet Volume 11.2, Immature Granulocyte % (Auto) 0, Neutrophils (%) (Auto) 70, Lymphocytes (%) (Auto) 18, Monocytes (%) (Auto) 10, Eosinophils (%) (Auto) 0, Basophils (%) (Auto) 1, Neutrophils # (Auto) 9.2H, Lymphocytes # (Auto) 2.3, Monocytes # (Auto) 1.4H, Eosinophils # (Auto) 0.0, Basophils # (Auto) 0.1, Immature Granulocyte # (Auto) 0.1, Prothrombin Time 15.3H, INR Comment 1.2, Activated Partial Thromboplast Time 34, D-Dimer 2.58H, Sodium Level 142, Potassium Level 4.2, Chloride Level 108H, Carbon Dioxide Level 22, Anion Gap 12, Blood Urea Nitrogen 45H, Creatinine 1.27, Estimat Glomerular Filtration Rate 61, BUN/Creatinine Ratio 35, Glucose Level 128H, Lactic Acid Level 1.80, Calcium Level 8.6, Corrected Calcium 9.1, Magnesium Level 1.5L, Total Bilirubin 0.5, Aspartate Amino Transf (AST/SGOT) 17, Alanine Aminotransferase (ALT/SGPT) 9, Alkaline Phosphatase 78, C-Reactive Protein High Sensitivity 14.66H, Total Protein 6.4, Albumin 3.4, Lipase < 4L, Thyroid Stimulating Hormone (TSH) 3.97, Free Thyroxine 0.83, Valproic Acid (Depakene) Level 26.0L 08/31/22 18:23: Glucometer 123H 08/31/22 21:20: Glucometer 185H 09/01/22 05:22: Glucometer 161H 09/01/22 09:23: Glucometer 216H Assessment/Plan Assessment/Plan Assess & Plan/Chief Complaint A 72 year old male with pneumonia, poor venous access, elevated d-dimer, diarrhea VSS Continue with medical management for pneumonia and diarrhea May use the blue and brown ports on the central line ILDA JACKSON APRN September 01, 2022 10:17
[2022-09-01 11:30] VITALS: BP_SYST 131; BP_SYST 162; BP_DIAS 72; BP_DIAS 91
[2022-09-01] MEDS: MAGNESIUM 1 GM/100 ML IVPB 100 ML IV SCH ×2 (12:31→12:32)
[2022-09-01 15:40] VITALS: BP 160/66
[2022-09-01 20:40] VITALS: BP 171/75
[2022-09-01 20:50] LABS: BASOPHILS # (AUTO) 0.1 10^3/uL (0.0-0.1); BASOPHILS % (AUTO) 1 % (0-10); EOSINOPHILS # (AUTO) 0.1 10^3/uL (0.0-0.3); EOSINOPHILS % (AUTO) 1 % (0-10); HEMATOCRIT 34 % (40-54); HEMOGLOBIN 11.2 g/dL (13.3-17.7); LYMPHOCYTES # (AUTO) 3.1 10^3/uL (1.0-4.0); LYMPHOCYTES % (AUTO) 25 % (12-44); MEAN CORPUSCULAR HEMOGLOBIN 31 pg (25-34); MEAN CORPUSCULAR HGB CONC 33 g/dL (32-36); MEAN CORPUSCULAR VOLUME 92 fL (80-99); MEAN PLATELET VOLUME 11.3 fL (9.0-12.2); MONOCYTES # (AUTO) 1.3 10^3/uL (0.0-1.0); MONOCYTES % (AUTO) 10 % (0-12); NEUTROPHILS # (AUTO) 7.7 10^3/uL (1.8-7.8); NEUTROPHILS % (AUTO) 62 % (42-75); PLATELET COUNT 181 10^3/uL (130-400); WHITE BLOOD COUNT 12.3 10^3/uL (4.3-11.0)
[2022-09-01 20:53] LABS: POTASSIUM 4.3 MMOL/L (3.6-5.0)
[2022-09-01 20:54] LABS: CALCIUM 8.4 MG/DL (8.5-10.1)
[2022-09-01 20:58] LABS: CREATININE SERUM 1.1 MG/DL (0.60-1.30)
[2022-09-01] MEDS: ENOXAPARIN 40 MG/0.4 ML (LOVENOX) SYR SC SCH (21:04)
[2022-09-01] MEDS: OLANZapine 2.5 MG (ZyPREXA) TAB PO SCH (21:04)
[2022-09-01] MEDS: AtorvaSTATin TABLET 10 MG TABLET PO SCH (21:04)
[2022-09-01] MEDS: RT-ALBUTEROL SULF 2.5 MG/3 ML PRE-MIX VIAL INH SCH (21:41)
[2022-09-01 23:25] VITALS: BP 151/72
[2022-09-02] VITALS (7 sets, daily range): BP systolic 97–197; BP diastolic 72–97
[2022-09-02] MEDS: CEFEPIME 1,000 MG/NS 50 ML IVPB IV SCH ×8 (03:24→20:01)
[2022-09-02] MEDS: LACTATED RINGERS 1,000 ML IV SCH ×3 (04:31→13:21)
[2022-09-02 05:38] LABS: BASOPHILS # (AUTO) 0.1 10^3/uL (0.0-0.1); BASOPHILS % (AUTO) 1 % (0-10); EOSINOPHILS # (AUTO) 0.1 10^3/uL (0.0-0.3); EOSINOPHILS % (AUTO) 1 % (0-10); HEMATOCRIT 31 % (40-54); HEMOGLOBIN 10.5 g/dL (13.3-17.7); LYMPHOCYTES # (AUTO) 2.3 10^3/uL (1.0-4.0); LYMPHOCYTES % (AUTO) 23 % (12-44); MEAN CORPUSCULAR HEMOGLOBIN 30 pg (25-34); MEAN CORPUSCULAR HGB CONC 33 g/dL (32-36); MEAN CORPUSCULAR VOLUME 91 fL (80-99); MEAN PLATELET VOLUME 11.4 fL (9.0-12.2); MONOCYTES % (AUTO) 10 % (0-12); NEUTROPHILS # (AUTO) 6.4 10^3/uL (1.8-7.8); NEUTROPHILS % (AUTO) 64 % (42-75); PLATELET COUNT 179 10^3/uL (130-400); WHITE BLOOD COUNT 9.9 10^3/uL (4.3-11.0)
[2022-09-02 05:54] LABS: POTASSIUM 4.1 MMOL/L (3.6-5.0)
[2022-09-02 05:55] LABS: CALCIUM 8.1 MG/DL (8.5-10.1)
[2022-09-02] MEDS: inSUlin ASPART (NovoLOG) 1 UNIT/0.01 ML (CHARGE PER UNIT) SC SCH ×4 (05:58→20:01)
[2022-09-02 05:59] LABS: CREATININE SERUM 1.01 MG/DL (0.60-1.30)
[2022-09-02] MEDS: RT-ALBUTEROL SULF 2.5 MG/3 ML PRE-MIX VIAL INH SCH ×2 (07:20→23:11)
[2022-09-02] MEDS: CLOPIDOGREL 75 MG (PLAVIX) TABLET PO SCH (09:50)
[2022-09-02] MEDS: ENALAPRIL 10 MG (VASOTEC) TAB PO SCH ×2 (09:50→19:46)
[2022-09-02] MEDS: DIVALPROEX 250 MG DELAYED RELEASE (DEPAKOTE) TAB PO SCH ×3 (09:50→19:45)
[2022-09-02] MEDS: meTOprolol TARTRATE 50 MG (LOPRESSOR) TAB PO SCH ×2 (09:50→19:46)
--- NOTE | 2022-09-02 10:26 | Progress Note ---
Subjective Subjective/Events-last exam Pt states he doesn't know why he is here. He knows he is in the hospital, but not which one and knows it is Friday but not the date. His brother Jasper is at bedside. He states typically patient is aware of what is going on and sometimes knows date, he does seem a little more confused but he assumes that is due to his being in the hospital. He states patient always knows who he is and still does at this time. At one point he stated that he is sometimes green and sometimes yellow, and when asked says that is what he was told. He also asked his brother about his parents well being who are . Confirmed code status and he wants to be full code. Focused Exam Lactate Level 08/31/22 11:10: Lactic Acid Level 1.80 Objective Exam Last Set of Vital Signs Vital Signs Date Time Temp Pulse Resp B/P (MAP) Pulse Ox O2 Delivery O2 Flow Rate FiO2 09/02/22 07:22 77 09/02/22 07:20 91 Room Air 09/02/22 07:17 36.0 18 178/77 (110) 09/01/22 20:00 2.00 08/31/22 19:49 2 Capillary Refill : Less Than 3 Seconds I&O Intake and Output 09/02/22 00:00 Intake Total 2250 ml Output Total 1250 ml Balance 1000 ml Intake Oral 1050 ml IV Total 1200 ml Output Urine Total 1250 ml # Voids 2 # Bowel Movements 5 General: Alert, No Acute Distress Lungs: Other (ronchi right, decreased air movement and expiratory wheeze on left) Heart: Regular Rate, No Murmurs Abdomen: Normal Bowel Sounds, Soft, No Tenderness Extremities: No Edema Psych/Mental Status: Mood NL, Other (oriented to self and that he is in a hospital, knows day is Friday but nothing else relating to date) Results/Procedures Lab Laboratory Tests 09/01/22 14:57: Glucometer 194H 09/01/22 15:39: Glucometer 333H 09/01/22 20:30: White Blood Count 12.3H, Red Blood Count 3.67L, Hemoglobin 11.2L, Hematocrit 34L , Mean Corpuscular Volume 92, Mean Corpuscular Hemoglobin 31, Mean Corpuscular Hemoglobin Concent 33, Red Cell Distribution Width 12.5, Platelet Count 181, Mean Platelet Volume 11.3, Immature Granulocyte % (Auto) 0, Neutrophils (%) (Auto) 62, Lymphocytes (%) (Auto) 25, Monocytes (%) (Auto) 10, Eosinophils (%) (Auto) 1, Basophils (%) (Auto) 1, Neutrophils # (Auto) 7.7, Lymphocytes # (Auto) 3.1, Monocytes # (Auto) 1.3H, Eosinophils # (Auto) 0.1, Basophils # (Auto) 0.1, Immature Granulocyte # (Auto) 0.1, Sodium Level 139, Potassium Level 4.3, Chloride Level 106, Carbon Dioxide Level 21, Anion Gap 12, Blood Urea Nitrogen 29H, Creatinine 1.10, Estimat Glomerular Filtration Rate 72, BUN/Creatinine Ratio 26, Glucose Level 109H, Calcium Level 8.4L, C-Reactive Protein High Sensitivity 13.80H 09/01/22 20:43: Glucometer 115H 09/02/22 05:12: White Blood Count 9.9, Red Blood Count 3.46L, Hemoglobin 10.5L, Hematocrit 31L, Mean Corpuscular Volume 91, Mean Corpuscular Hemoglobin 30, Mean Corpuscular Hemoglobin Concent 33, Red Cell Distribution Width 12.4, Platelet Count 179, Mean Platelet Volume 11.4, Immature Granulocyte % (Auto) 0, Neutrophils (%) (Au to) 64, Lymphocytes (%) (Auto) 23, Monocytes (%) (Auto) 10, Eosinophils (%) (Auto) 1, Basophils (%) (Auto) 1, Neutrophils # (Auto) 6.4, Lymphocytes # (Auto) 2.3, Monocytes # (Auto) 1.0, Eosinophils # (Auto) 0.1, Basophils # (Auto) 0.1, Immature Granulocyte # (Auto) 0.0, Sodium Level 134L, Potassium Level 4.1, Chloride Level 103, Carbon Dioxide Level 22, Anion Gap 9, Blood Urea Nitrogen 25H, Creatinine 1.01, Estimat Glomerular Filtration Rate 80, BUN/Creatinine Ratio 25, Glucose Level 276H, Glucometer 264H, Calcium Level 8.1L 09/02/22 10:01: Glucometer 339H Microbiology 08/31/22 Blood Culture - Preliminary, Resulted No growth Assessment/Plan Assessment/Plan (1) Left lower lobe pneumonia Status: Acute Assessment & Plan: Started on cefepime, improving. COVID and flu testing negative. Qualifiers: Qualified Codes: J18.9 - Pneumonia, unspecified organism (2) Hypoxia Status: Resolved Assessment & Plan: Secondary to pneumonia. On room air this morning. (3) Altered mental status Status: Acute Assessment & Plan: Improving, near baseline per brother's report. Suspect secondary to infection. (4) CHF (congestive heart failure) Onset Date: 01/06/2014 Status: Chronic Assessment & Plan: Stable, no evidence of decompensation. (5) Seizure disorder Status: Chronic Assessment & Plan: Resume home meds. (6) CAD (coronary artery disease) Onset Date: 01/20/2014 Status: Chronic Assessment & Plan: Resume home meds. (7) Primary hypertension Status: Chronic (8) Mixed hyperlipidemia Status: Chronic (9) Dementia Status: Chronic (10) Type 2 diabetes mellitus with complication Status: Chronic Assessment & Plan: Diabetic diet, sliding scale insulin. (11) Foot osteomyelitis, left Assessment & Plan: History of osteo, foot wounds, following with Wound Care outpatient, appreciate recommendations. (12) Elevated d-dimer Status: Acute Assessment & Plan: Unable to obtain CTA chest due to access, will check bilateral LE venous and treat if DVT, if not, consider CTA when access available, although given respiratory improvement on antibiotics, less suspici ous of PE at this time. (13) DVT prophylaxis Status: Acute Assessment & Plan: Enoxaparin CLARIBEL RAMEY MD September 02, 2022 10:26
--- NOTE | 2022-09-02 10:31 | Wound Care Assessment ---
Wound Care Assessment Date Seen by Provider: September 02, 2022 Time Seen by Provider: 09:30 Chief Complaint Chronic left foot ulcers EUGENIE Olivera is a 72 year old gentleman well known to my outpatient practice. 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 Most recently he did have wound infection with pseudomonas, E. coli and enterococcus. He was on a course of Levaquin and Doxy prior to hospital admission (2 week course started n 08/23/22). Plain films on 08-19-22 without obvious osteomyelitis. He did have recent worsening of ulcers and thus, MRI has been planned. We will attempt to complete this while admitted. I have discussed his case with his guardian and his PCP. Plan is to evaluate for new osteomyelitis. Jarod has severe underlying PAD and has had numerous interventions with Dr. Rodriguez in the past. I have discussed his case with their office on several occasions. They have no further plans for intervention with Jarod ("have nothing else to offer him"). He continues to smoke 1ppd cigarettes despite counseling. He does have significant vascular dementia as well. If he does have new osteomyelitis, we will likely consider hospice consultation as opposed to further surgical intervention. His ulcers do appear improved today from my last evaluation with stable eschars to all sites of concern. I do plan to order ESR today as well. His CRP is quite elevated (greatly worsened from earlier this month). Past Medical History: Admits Diabetes Type II, Admits Heart Disease, Admits Peripheral Artery Disease Tobaccoism, PEM, anemia (chronic), COPD, h/o recent osteomyelitis s/p amputation Smoking Status: Current Everyday Smoker (1 ppd) Recreational Drug Use: No Alcohol Use: Denies Use Review of Systems Other systems Limited ROS due to dementia Exam Vital Signs Date Time Temp Pulse Resp B/P (MAP) Pulse Ox O2 Delivery O2 Flow Rate FiO2 09/02/22 07:22 77 09/02/22 07:20 91 Room Air 09/02/22 07:17 36.0 18 178/77 (110) 09/01/22 20:00 2.00 08/31/22 19:49 2 Capillary Refill : Less Than 3 Seconds General Appearance: WD/WN, no apparent distress HEENT: other (normal hearing) Neck: full range of motion Cardiovascular: no edema Respiratory: no respiratory distress, no accessory muscle use Extremities: non-tender, no pedal edema Neurologic/Psychiatric: alert, normal mood/affect, other (Dementia, poor historian) Skin: normal color, warm/dry Wound assessment: 1. L. heel: The epithelialization is none. There is no tunneling or undermining. Drainage is none. Granulation is none. Necrotic is large stable eschar. Margins are flat 2. L. 1 toe stump site: The epithelialization is none. There is no tunneling or undermining. Drainage is none. Granulation is none. Necrotic is large stable eschar. Margins are flat Results Laboratory Tests 09/01/22 14:57: Glucometer 194H 09/01/22 15:39: Glucometer 333H 09/01/22 20:30: White Blood Count 12.3H, Red Blood Count 3.67L, Hemoglobin 11.2L, Hematocrit 34L , Mean Corpuscular Volume 92, Mean Corpuscular Hemoglobin 31, Mean Corpuscular Hemoglobin Concent 33, Red Cell Distribution Width 12.5, Platelet Count 181, Mean Platelet Volume 11.3, Immature Granulocyte % (Auto) 0, Neutrophils (%) (Auto) 62, Lymphocytes (%) (Auto) 25, Monocytes (%) (Auto) 10, Eosinophils (%) (Auto) 1, Basophils (%) (Auto) 1, Neutrophils # (Auto) 7.7, Lymphocytes # (Auto) 3.1, Monocytes # (Auto) 1.3H, Eosinophils # (Auto) 0.1, Basophils # (Auto) 0.1, Immature Granulocyte # (Auto) 0.1, Sodium Level 139, Potassium Level 4.3, Chloride Level 106, Carbon Dioxide Level 21, Anion Gap 12, Blood Urea Nitrogen 29H, Creatinine 1.10, Estimat Glomerular Filtration Rate 72, BUN/Creatinine Ratio 26, Glucose Level 109H, Calcium Level 8.4L, C-Reactive Protein High Sensitivity 13.80H 09/01/22 20:43: Glucometer 115H 09/02/22 05:12: White Blood Count 9.9, Red Blood Count 3.46L, Hemoglobin 10.5L, Hematocrit 31L, Mean Corpuscular Volume 91, Mean Corpuscular Hemoglobin 30, Mean Corpuscular Hemoglobin Concent 33, Red Cell Distribution Width 12.4, Platelet Count 179, Mean Platelet Volume 11.4, Immature Granulocyte % (Auto) 0, Neutrophils (%) (A uto) 64, Lymphocytes (%) (Auto) 23, Monocytes (%) (Auto) 10, Eosinophils (%) (Auto) 1, Basophils (%) (Auto) 1, Neutrophils # (Auto) 6.4, Lymphocytes # (Auto) 2.3, Monocytes # (Auto) 1.0, Eosinophils # (Auto) 0.1, Basophils # (Auto) 0.1, Immature Granulocyte # (Auto) 0.0, Sodium Level 134L, Potassium Level 4.1, Chloride Level 103, Carbon Dioxide Level 22, Anion Gap 9, Blood Urea Nitrogen 25H, Creatinine 1.01, Estimat Glomerular Filtration Rate 80, BUN/Creatinine Rati o 25, Glucose Level 276H, Glucometer 264H, Calcium Level 8.1L 09/02/22 10:01: Glucometer 339H Microbiology 08/31/22 Blood Culture - Preliminary, Resulted No growth Microbiology 08/31/22 Blood Culture - Preliminary, Resulted No growth 08/31/22 Blood Culture - Preliminary, Resulted No growth Assessment/Plan/Dx Assessment: 1. WG1 DFU L. heel and 1 stump site 2. Recent h/o osteomyelitis of digit (s/p amputation) 3. Recent wound infection (Pseudomonas, E. Coli, Enterococcus) 4. DM2 with inadequate control (recent past) 5. PEM 6. Anemia (chronic refractory) 7. Tobaccoism 8. PAD-severe Plan: 1. Betadine paint twice daily, air dry, secure with BFD and primo boots 2. Check MRI to rule out chronic/new osteomyelitis 3. Will check ESR and A1C (due as outpatient) SHAUN CLAROS MD September 02, 2022 10:31
[2022-09-02] MEDS ORDERED: HYDR-3817 PO (13:22)
[2022-09-02] MEDS ORDERED: LEVO150T6 PO (13:22)
[2022-09-02] MEDS ORDERED: VNL75T PO (13:22)
[2022-09-02] MEDS ORDERED: DOXY100C5 PO (13:22)
[2022-09-02] MEDS ORDERED: LEVO-55 PO (13:22)
--- NOTE | 2022-09-02 14:56 | Diagnostic Imaging Report ---
PROCEDURE: US Venous Lower Ext Jones. TECHNIQUE: Multiple real-time grayscale images were obtained over the lower extremities in various projections, bilaterally. Additional duplex Doppler and color Doppler images were also obtained. INDICATION: Elevated D-dimer. FINDINGS: There is no evidence of a right or left lower extremity DVT. Both lower extremity deep venous systems demonstrate normal compressibility with normal response to augmentation and Valsalva. No fluid collection or mass is detected. IMPRESSION: No evidence of right or left lower extremity DVT. Dictated by: Dictated on workstation # [id number]
[2022-09-02] MEDS ORDERED: HYDROcodone/APAP 7.5 MG/325 MG (LORTAB, LORCET PLUS) TABLET PO PRN (15:45)
[2022-09-02] MEDS: LACTOBACILLUS ACIDOPHILUS (PROBIOTIC) CAPSULE PO SCH ×2 (16:56→19:46)
[2022-09-02] MEDS: inSUlin ASPART (NovoLOG) 1 UNIT/0.01 ML (CHARGE PER UNIT) SQ SCH (16:56)
--- NOTE | 2022-09-02 17:12 | Diagnostic Imaging Report ---
PROCEDURE: MR imaging left lower extremity without contrast. TECHNIQUE: Multiplanar, multisequence non contrast enhanced MR imaging of the left forefoot was accomplished. INDICATION: Soft tissue ulcer at the amputation stump of the great toe. COMPARISON: None available. FINDINGS: The first through third toes have been amputated at the level of the MTP joints. No abnormal bone marrow edema within the metatarsals or residual phalanges to indicate osteomyelitis. No concerning marrow-replacing process. Fatty atrophy of the intrinsic musculature of the foot is likely due to chronic denervation injury associated with longstanding diabetes. No T2 hyperintense loculated fluid collection that would suggest drainable abscess. No features of infectious tenosynovitis. IMPRESSION: 1. No osteomyelitis within the forefoot. Dictated by: Dictated on workstation # [id number]
--- NOTE | 2022-09-02 17:20 | Diagnostic Imaging Report ---
PROCEDURE: MRI left joint lower extremity without contrast. TECHNIQUE: Multiplanar, multisequence non contrast-enhanced MRI of the left midfoot, hindfoot, and ankle was accomplished. INDICATION: Heel ulcer. COMPARISON: MRI of the forefoot performed concurrently. FINDINGS: Bones: No marrow replacing process in the midfoot, hindfoot, or distal lower leg to indicate osteomyelitis. Specifically, there are no features of osteomyelitis in the calcaneus. No osteochondral lesion of the talar dome. Soft Tissues: Soft tissue ulcer along the dorsal aspect of the heel fat pad. No associated fluid collection that would suggest a soft tissue drainable abscess. Achilles insertion is intact. Peroneus longus and brevis tendons are normal. Posterior tibialis, flexor hallucis longus, and flexor digitorum longus are also normal. Anterior tibialis is unremarkable where visualized. No acute ligamentous injury about the ankle. IMPRESSION: 1. No osteomyelitis within the calcaneus adjacent to the heel ulcer. Dictated by: Dictated on workstation # [id number]
[2022-09-02] MEDS: clonazePAM 0.5 MG (KlonoPIN) TAB PO SCH (19:45)
[2022-09-02] MEDS: MIRTAZAPINE 15 MG (REMERON) TAB PO SCH (19:45)
[2022-09-02] MEDS: GABAPENTIN 300 MG (NEURONTIN) CAP PO SCH (19:45)
[2022-09-02] MEDS: MELATONIN 3 MG TABLET PO SCH (19:46)
[2022-09-02] MEDS: OLANZapine 2.5 MG (ZyPREXA) TAB PO SCH (19:46)
[2022-09-02] MEDS: AtorvaSTATin TABLET 10 MG TABLET PO SCH (19:46)
[2022-09-02] MEDS: ARTIFICAL TEARS 0.4 ML UNIT DOSE (REFRESH PLUS) OU SCH (19:46)
[2022-09-02] MEDS: MEMANTINE 5 MG (NAMENDA) TABLET PO SCH (19:46)
[2022-09-02] MEDS: ENOXAPARIN 40 MG/0.4 ML (LOVENOX) SYR SC SCH (19:47)
[2022-09-02] MEDS ORDERED: NON-FORMULARY MEDICATION 1 EA EA (Simvastatin 10 MG) PO SCH (21:00)
[2022-09-02] MEDS ORDERED: PROPYLENE GLYCOL OU SCH (21:00)
[2022-09-02] MEDS: cloNIDine 0.1 MG (CATAPRES) TAB PO PRN (21:34)
[2022-09-03 03:25] VITALS: BP 125/64
[2022-09-03] MEDS: CEFEPIME 1,000 MG/NS 50 ML IVPB IV SCH ×8 (03:36→20:01)
[2022-09-03 03:45] LABS: HEMATOCRIT 30 % (40-54); HEMOGLOBIN 10.2 g/dL (13.3-17.7); MEAN CORPUSCULAR HEMOGLOBIN 31 pg (25-34); MEAN CORPUSCULAR HGB CONC 34 g/dL (32-36); MEAN CORPUSCULAR VOLUME 89 fL (80-99); PLATELET COUNT 182 10^3/uL (130-400); WHITE BLOOD COUNT 10.7 10^3/uL (4.3-11.0)
[2022-09-03 04:02] LABS: ALBUMIN 2.8 GM/DL (3.2-4.5); BILIRUBIN,TOTAL 0.4 MG/DL (0.1-1.0); CALCIUM 8.1 MG/DL (8.5-10.1); CREATININE SERUM 0.99 MG/DL (0.60-1.30); POTASSIUM 3.8 MMOL/L (3.6-5.0); TOTAL PROTEIN 5.4 GM/DL (6.4-8.2)
[2022-09-03] MEDS: inSUlin ASPART (NovoLOG) 1 UNIT/0.01 ML (CHARGE PER UNIT) SC SCH ×4 (06:41→20:00)
[2022-09-03 07:15] VITALS: BP 138/68
[2022-09-03] MEDS: RT-ALBUTEROL SULF 2.5 MG/3 ML PRE-MIX VIAL INH SCH ×2 (08:00→20:28)
[2022-09-03] MEDS: inSUlin ASPART (NovoLOG) 1 UNIT/0.01 ML (CHARGE PER UNIT) SQ SCH ×3 (08:36→17:32)
[2022-09-03] MEDS: LACTOBACILLUS ACIDOPHILUS (PROBIOTIC) CAPSULE PO SCH ×4 (08:37→19:41)
[2022-09-03] MEDS: clonazePAM 0.5 MG (KlonoPIN) TAB PO SCH ×3 (08:37→19:40)
[2022-09-03] MEDS: MULTIVIT W/MINERALS TAB (THERAGRAN M) PO SCH (08:39)
[2022-09-03] MEDS: VENlafaxine 75 MG (EFFEXOR) TAB PO SCH (08:39)
[2022-09-03] MEDS: meTOprolol TARTRATE 50 MG (LOPRESSOR) TAB PO SCH ×2 (08:39→19:40)
[2022-09-03] MEDS: TAMSULOSIN 0.4 MG (FLOMAX) CAP PO SCH (08:40)
[2022-09-03] MEDS: ARTIFICAL TEARS 0.4 ML UNIT DOSE (REFRESH PLUS) OU SCH ×2 (08:40→19:40)
[2022-09-03] MEDS: DIVALPROEX 250 MG DELAYED RELEASE (DEPAKOTE) TAB PO SCH ×3 (08:40→19:41)
[2022-09-03] MEDS: CLOPIDOGREL 75 MG (PLAVIX) TABLET PO SCH (08:40)
[2022-09-03] MEDS: LEVOTHYROXINE 150 MCG (LEVOTHROID) TAB PO SCH (08:40)
[2022-09-03] MEDS: VITAMIN D3 125 MCG (5,000 UNITS) CAPSULE PO SCH (08:40)
[2022-09-03] MEDS: ENALAPRIL 10 MG (VASOTEC) TAB PO SCH ×2 (08:40→19:41)
[2022-09-03] MEDS: PANTOPRAZOLE 20 MG TABLET (PROTONIX) PO SCH (08:41)
[2022-09-03] MEDS: polyethylene glycoL POWDER 17 GM (MIRALAX) PACK PO SCH (08:41)
[2022-09-03] MEDS ORDERED: NON-FORMULARY MEDICATION 1 EA EA (Lansoprazole 15 MG) PO SCH (09:00)
[2022-09-03] MEDS ORDERED: FERROUS SULF 325 MG (IRON) TAB PO SCH (09:00)
[2022-09-03] MEDS: ICOSAPENT ETHYL 1 GM PO SCH ×2 (10:25→19:59)
[2022-09-03 11:25] VITALS: BP 133/63
--- NOTE | 2022-09-03 14:50 | Progress Note ---
Subjective Subjective/Events-last exam Pt seen at 1020. Pt states he is feeling okay. Denies concerns. Is needing to use the bathroom. Objective Exam Last Set of Vital Signs Vital Signs Date Time Temp Pulse Resp B/P (MAP) Pulse Ox O2 Delivery O2 Flow Rate FiO2 09/03/22 13:05 73 09/03/22 11:25 36.2 18 133/63 (86) 95 Nasal Cannula 2.00 08/31/22 19:49 2 Capillary Refill : Less Than 3 Seconds I&O Intake and Output 09/03/22 00:00 Intake Total 2655 ml Output Total 225 ml Balance 2430 ml Intake Oral 1505 ml IV Total 1150 ml Output Urine Total 225 ml # Voids 5 # Bowel Movements 2 General: Alert, No Acute Distress Lungs: Clear to Auscultation Heart: Regular Rate Abdomen: Normal Bowel Sounds, Soft Extremities: No Edema Neuro: Normal Speech Psych/Mental Status: Mood NL, Other (oriented to self and location only) Results/Procedures Lab Laboratory Tests 09/02/22 15:51: D-Dimer 2.34H 09/02/22 19:57: Glucometer 191H 09/03/22 03:28: Glucometer 105 09/03/22 03:38: White Blood Count 10.7, Red Blood Count 3.33L, Hemoglobin 10.2L, Hematocrit 30L, Mean Corpuscular Volume 89, Mean Corpuscular Hemoglobin 31, Mean Corpuscular Hemoglobin Concent 34, Red Cell Distribution Width 12.1, Platelet Count 182, Mean Platelet Volume 11.0, Sodium Level 137, Potassium Level 3.8, Chloride Level 104, Carbon Dioxide Level 26, Anion Gap 7, Blood Urea Nitrogen 17, Creatinine 0.99, Estimat Glomerular Filtration Rate 82, BUN/Creatinine Ratio 17, Glucose Level 118H, Calcium Level 8.1L, Corrected Calcium 9.1, Total Bilirubin 0.4, Aspartate Amino Transf (AST/SGOT) 18, Alanine Aminotransferase (ALT/SGPT) 12, Alkaline Phosphatase 65, Total Protein 5.4L, Albumin 2.8L 09/03/22 07:14: Glucometer 121H 09/03/22 09:50: Glucometer 223H 09/03/22 14:44: Glucometer 238H Microbiology 08/31/22 Blood Culture - Preliminary, Resulted No growth Assessment/Plan Assessment/Plan (1) Left lower lobe pneumonia Status: Acute Assessment & Plan: Started on cefepime, improving. COVID and flu testing negative. Qualifiers: Qualified Codes: J18.9 - Pneumonia, unspecified organism (2) Hypoxia Status: Resolved Assessment & Plan: Secondary to pneumonia. On minimal oxygen supplementation. (3) Altered mental status Status: Acute Assessment & Plan: Improving, near baseline per brother's report. Suspect sec ondary to infection. (4) CHF (congestive heart failure) Onset Date: 01/06/2014 Status: Chronic Assessment & Plan: Stable, no evidence of decompensation. (5) Seizure disorder Status: Chronic Assessment & Plan: Resume home meds. (6) CAD (coronary artery disease) Onset Date: 01/20/2014 Status: Chronic Assessment & Plan: Resume home meds. (7) Primary hypertension Status: Chronic (8) Mixed hyperlipidemia Status: Chronic (9) Dementia Status: Chronic (10) Type 2 diabetes mellitus with complication Status: Chronic Assessment & Plan: Diabetic diet, sliding scale insulin. (11) Foot osteomyelitis, left Assessment & Plan: History of osteo, foot wounds, following with Wound Care outpatient, appreciate recommendations. 09/03- MRI with no evidence of osteo currently (12) Elevated d-dimer Status: Acute Assessment & Plan: Unable to obtain CTA chest due to access, will check bilateral LE venous and treat if DVT, if not, consider CTA when access available, although given respiratory improvement on antibiotics, less suspicious of PE at this time. 09/03- bilateral US negative for DVT, d dimer decreased slightly on recheck and respiratory status stable. (13) DVT prophylaxis Status: Acute Assessment & Plan: Enoxaparin CLARIBEL RAMEY MD September 03, 2022 14:50
[2022-09-03 15:59] VITALS: BP 134/73
[2022-09-03 19:40] VITALS: BP 151/73
[2022-09-03] MEDS: ENOXAPARIN 40 MG/0.4 ML (LOVENOX) SYR SC SCH (19:40)
[2022-09-03] MEDS: OLANZapine 2.5 MG (ZyPREXA) TAB PO SCH (19:40)
[2022-09-03] MEDS: GABAPENTIN 300 MG (NEURONTIN) CAP PO SCH (19:41)
[2022-09-03] MEDS: AtorvaSTATin TABLET 10 MG TABLET PO SCH (19:41)
[2022-09-03] MEDS: MELATONIN 3 MG TABLET PO SCH (19:41)
[2022-09-03] MEDS: MIRTAZAPINE 15 MG (REMERON) TAB PO SCH (19:41)
[2022-09-03] MEDS: MEMANTINE 5 MG (NAMENDA) TABLET PO SCH (19:41)
[2022-09-03 23:04] VITALS: BP 152/76
[2022-09-04 03:03] VITALS: BP 125/72
[2022-09-04] MEDS: CEFEPIME 1,000 MG/NS 50 ML IVPB IV SCH ×4 (03:58→09:00)
[2022-09-04 05:23] LABS: HEMATOCRIT 31 % (40-54); HEMOGLOBIN 10.6 g/dL (13.3-17.7); MEAN CORPUSCULAR HEMOGLOBIN 31 pg (25-34); MEAN CORPUSCULAR HGB CONC 34 g/dL (32-36); MEAN CORPUSCULAR VOLUME 91 fL (80-99); MEAN PLATELET VOLUME 11.1 fL (9.0-12.2); PLATELET COUNT 190 10^3/uL (130-400); WHITE BLOOD COUNT 9.6 10^3/uL (4.3-11.0)
[2022-09-04 05:33] LABS: POTASSIUM 4.1 MMOL/L (3.6-5.0)
[2022-09-04 05:34] LABS: CALCIUM 8.3 MG/DL (8.5-10.1)
[2022-09-04 05:38] LABS: CREATININE SERUM 1.03 MG/DL (0.60-1.30)
[2022-09-04] MEDS: inSUlin ASPART (NovoLOG) 1 UNIT/0.01 ML (CHARGE PER UNIT) SC SCH ×2 (05:50→10:23)
[2022-09-04] MEDS: RT-ALBUTEROL SULF 2.5 MG/3 ML PRE-MIX VIAL INH SCH (07:05)
[2022-09-04 07:21] VITALS: BP 170/84
[2022-09-04] MEDS: VENlafaxine 75 MG (EFFEXOR) TAB PO SCH (08:59)
[2022-09-04] MEDS: clonazePAM 0.5 MG (KlonoPIN) TAB PO SCH ×2 (08:59→13:17)
[2022-09-04] MEDS: VITAMIN D3 125 MCG (5,000 UNITS) CAPSULE PO SCH (08:59)
[2022-09-04] MEDS: ENALAPRIL 10 MG (VASOTEC) TAB PO SCH (08:59)
[2022-09-04] MEDS: MULTIVIT W/MINERALS TAB (THERAGRAN M) PO SCH (08:59)
[2022-09-04] MEDS: LEVOTHYROXINE 150 MCG (LEVOTHROID) TAB PO SCH (08:59)
[2022-09-04] MEDS: meTOprolol TARTRATE 50 MG (LOPRESSOR) TAB PO SCH (08:59)
[2022-09-04] MEDS: CLOPIDOGREL 75 MG (PLAVIX) TABLET PO SCH (08:59)
[2022-09-04] MEDS: polyethylene glycoL POWDER 17 GM (MIRALAX) PACK PO SCH (08:59)
[2022-09-04] MEDS: LACTOBACILLUS ACIDOPHILUS (PROBIOTIC) CAPSULE PO SCH ×2 (08:59→13:17)
[2022-09-04] MEDS: PANTOPRAZOLE 20 MG TABLET (PROTONIX) PO SCH (08:59)
[2022-09-04] MEDS: inSUlin ASPART (NovoLOG) 1 UNIT/0.01 ML (CHARGE PER UNIT) SQ SCH ×2 (08:59→13:17)
[2022-09-04] MEDS: TAMSULOSIN 0.4 MG (FLOMAX) CAP PO SCH (08:59)
[2022-09-04] MEDS: ARTIFICAL TEARS 0.4 ML UNIT DOSE (REFRESH PLUS) OU SCH (08:59)
[2022-09-04] MEDS: DIVALPROEX 250 MG DELAYED RELEASE (DEPAKOTE) TAB PO SCH ×2 (09:00→13:17)
[2022-09-04] MEDS: ICOSAPENT ETHYL 1 GM PO SCH (09:00)
[2022-09-04 11:24] VITALS: BP 161/79
--- NOTE | 2022-09-04 13:38 | Discharge Summary ---
Discharge Summary Hospital Course Problems/Diagnosis: (1) Left lower lobe pneumonia Status: Acute Assessment & Plan: Started on cefepime, weaned to room air. COVID and flu testing negative. CXR on admit with airspace opacity in left peripheral lung, recommended follow up to resolution, will need repeat imaging after treatment. Given he received 4 days of antibiotics inpatient, resumed his previously prescribed levofloxacin and doxycycline on d/c to complete those courses (prescribed 08/24 for wound infection). Blood cultures with no growth. Qualifiers: Qualified Codes: J18.9 - Pneumonia, unspecified organism (2) Hypoxia Status: Resolved Resolution Date/Time: 09/02/22 @ 15:31 Assessment & Plan: Secondary to pneumonia. On room air at discharge. (3) Altered mental status Status: Acute Assessment & Plan: Improving, near baseline per brother's report. Suspect secondary to infection. (4) CHF (congestive heart failure) Onset Date: 01/06/2014 Status: Chronic Assessment & Plan: Stable, no evidence of decompensation. (5) Seizure disorder Status: Chronic Assessment & Plan: Resume home meds. (6) CAD (coronary artery disease) Onset Date: 01/20/2014 Status: Chronic Assessment & Plan: Resume home meds. (7) Primary hypertension Status: Chronic (8) Mixed hyperlipidemia Status: Chronic (9) Dementia Status: Chronic (10) Type 2 diabetes mellitus with complication Status: Chronic Assessment & Plan: Diabetic diet, sliding scale insulin. (11) Foot osteomyelitis, left Assessment & Plan: History of osteo, foot wounds, following with Wound Care outpatient, appreciate recommendations. 09/03- MRI with no evidence of osteo currently (12) Elevated d-dimer Status: Acute Assessment & Plan: Unable to obtain CTA chest due to access, will check bilateral LE venous and treat if DVT, if not, consider CTA when access available, although given respiratory improvement on antibiotics, less suspicious of PE at this time. 09/03- bilateral US negative for DVT, d dimer decreased slightly on recheck and respiratory status stable. Hospital Course Date of Admission: August 31, 2022 at 17:47 Admission Diagnosis : Family Physician/Provider: [place] Date of Discharge: 09/04/22 Discharge Diagnosis: See problem list Hospital Course: See problem list Labs and Pending Lab Test: Laboratory Tests 09/03/22 14:44: Glucometer 238H 09/03/22 19:23: Glucometer 174H 09/04/22 05:09: White Blood Count 9.6, Red Blood Count 3.47L, Hemoglobin 10.6L, Hematocrit 31L, Mean Corpuscular Volume 91, Mean Corpuscular Hemoglobin 31, Mean Corpuscular Hemoglobin Concent 34, Red Cell Distribution Width 12.2, Platelet Count 190, Mean Platelet Volume 11.1, Sodium Level 138, Potassium Level 4.1, Chloride Level 104, Carbon Dioxide Level 25, Anion Gap 9, Blood Urea Nitrogen 16, Creatinine 1.03, Estimat Glomerular Filtration Rate 78, BUN/Creatinine Ratio 16, Glucose Level 106H, Calcium Level 8.3L 09/04/22 07:25: Glucometer 114H 09/04/22 09:57: Glucometer 259H Microbiology 08/31/22 Blood Culture - Preliminary, Resulted No growth Home Meds Active Reported Hydrocodone-Acetamin 7.5-325 (Hydrocodone/Acetaminophen) 7.5 Mg-325 Mg Tablet 1 Ea PO Q6H PRN Doxycycline Hyclate 100 Mg Capsule 100 Mg PO 0900,2100 FIRST DOSE 08-24-2022 # DAY SUPPLY Venlafaxine HCl 75 Mg Tab 75 Mg PO DAILY Levothyroxine Sodium 150 Mcg Tablet 150 Mcg PO DAILY Levofloxacin 500 Mg Tablet 500 Mg PO DAILY START DATE 08-24-2022 # DAY SUPPLY Olanzapine 5 Mg Tablet 5 Mg PO DAILY Miralax (Polyethylene Glycol 3350) 17 Gram Powd.pack 17 Gm PO DAILY Systane Complete (Propylene Glycol) 0.6 % Drops 1 Drop OU BID Simvastatin 10 Mg Tablet 10 Mg PO HS Multivitamin 1 Each Tablet 1 Each PO DAILY Metformin HCl 500 Mg Tablet 1,000 Mg PO BID TAKES 2 (500MG) TABS Memantine HCl 5 Mg Tablet 5 Mg PO HS Lansoprazole 15 Mg Capsule.dr 15 Mg PO DAILY Clonazepam 0.5 Mg Tablet 0.5 Mg PO 0800,1400,2000 Glucagon Emergency Kit (Glucagon HCl) 1 Mg Vial 1 Mg IM UD PRN GIVE NEEEDED FOR UNRESPONSIVE HYPOGLYCEMIA EVENT, IF REMAINS UNRESPONSIVE AFTER 15 MINUTES MAY GIVE ANOTHER DOSE Clonidine HCl 0.2 Mg Tablet 0.2 Mg PO BID HOLD IF SBP <100 OR PULSE <60 Mirtazapine 15 Mg Tablet 15 Mg PO HS Metoprolol Tartrate 50 Mg Tablet 50 Mg PO BID WITH MEALS HOLD IF BP <110/60 OR PULSE <60 Levemir Flextouch (Insulin Detemir) 100 Unit/Ml (3 Ml) Insuln.pen 20 Units SC DAILY Neurontin (Gabapentin) 300 Mg Capsule 300 Mg PO HS Ferrous Sulfate 325 Mg Tablet 325 Mg PO Q48H Colace (Docusate Sodium) 100 Mg Capsule 100 Mg PO BID Vitamin D3 (Cholecalciferol (Vitamin D3)) 125 Mcg (5000 Unit) Capsule 125 Mcg PO DAILY Novolog (Insulin Aspart) 100 Unit/Ml Susp 7 Unit SQ AC Trulicity (Dulaglutide) 0.75 Mg/0.5 Ml Pen.injctr 0.75 Mg SC SUN Vascepa (Icosapent Ethyl) 1 Gm Capsule 1 Gm PO BID Flomax (Tamsulosin HCl) 0.4 Mg Cap 0.4 Mg PO DAILY Albuterol Sulfate 2.5 Mg/3 Ml Vial.neb 2.5 Mg NEB UD PRN Acidophilus-Pectin Capsule (Lactobacillus Acidophilus/Pect) 1 Each Capsule 1 Cap PO QID Milk of Magnesia (Magnesium Hydroxide) 400 Mg/5 Ml Oral.susp 30 Ml PO DAILY PRN Enalapril Maleate 2.5 Mg Tablet 2.5 Mg PO DAILY Plavix (Clopidogrel Bisulfate) 75 Mg Tablet 75 Mg PO DAILY Mylanta Suspension (Al Hydrox/Mg Hydrox/Simethicone) 30 Ml Oral.susp 30 Ml PO Q4H PRN Melatonin 3 Mg Tablet 3 Mg PO HS Levetiracetam 500 Mg Tablet 500 Mg PO BID Divalproex Sodium 125 Mg Cap.sprink 250 Mg PO TID TAKES 2 (125MG) CAPS Assessment/Pt DC Instructions Follow up by provider at [place] within a week of discharge. Discharge Diet: ADA Diet Activity as Tolerated: Yes Discharge Physical Examination Allergies: Coded Allergies: acetaminophen (Verified Allergy, Intermediate, 10/26/17) General Appearance: No Apparent Distress Respiratory: Lungs Clear, Normal Breath Sounds Cardiovascular: Regular Rate, Rhythm, No Murmur Gastrointestinal: Normal Bowel Sounds, Non Tender, Soft Extremity: No Pedal Edema Neurologic/Psychiatric: Alert, Other (oriented to self and knows he is in "some hospital") Copy Copies To 1: WANDA Ribeiro BETHANY N MD September 04, 2022 13:38
[2022-09-08] MEDS ORDERED: CLONIDINE PATCH REMOVAL TP SCH (08:59)
== END 2022-09-04 14:31 | DRG 194 ==
LOC: EDUNIT# 08:20 → ER 08:21 → 4TH 17:47
PROVIDERS: ADMIT Internal Medicine; ATTEND Family Medicine
PROC: 02HV33Z Insertion of Infusion Device into Superior Vena Cava, Percutaneous Approach (ICD-10-PCS; principal; 2022-08-31)
DX: J18.9 Pneumonia, unspecified organism (principal); E46 Unspecified protein-calorie malnutrition; F02.818 Dementia in other diseases classified elsewhere, unspecified severity, with other behavioral disturbance; L97.429 Non-pressure chronic ulcer of left heel and midfoot with unspecified severity; R09.02 Hypoxemia; G30.9 Alzheimer's disease, unspecified; F01.50 Vascular dementia, unspecified severity, without behavioral disturbance, psychotic disturbance, mood disturbance, and anxiety; K52.9 Noninfective gastroenteritis and colitis, unspecified; E86.0 Dehydration; Z20.822 Contact with and (suspected) exposure to COVID-19; E11.40 Type 2 diabetes mellitus with diabetic neuropathy, unspecified; E11.319 Type 2 diabetes mellitus with unspecified diabetic retinopathy without macular edema; I11.0 Hypertensive heart disease with heart failure; I50.9 Heart failure, unspecified; F17.210 Nicotine dependence, cigarettes, uncomplicated; I25.119 Atherosclerotic heart disease of native coronary artery with unspecified angina pectoris; E78.2 Mixed hyperlipidemia; G40.909 Epilepsy, unspecified, not intractable, without status epilepticus; F48.2 Pseudobulbar affect; K21.9 Gastro-esophageal reflux disease without esophagitis; E03.9 Hypothyroidism, unspecified; F41.9 Anxiety disorder, unspecified; F32.A Depression, unspecified; K59.00 Constipation, unspecified; I73.9 Peripheral vascular disease, unspecified; Z79.85 Long-term (current) use of injectable non-insulin antidiabetic drugs; Z68.25 Body mass index [BMI] 25.0-25.9, adult; Z79.4 Long term (current) use of insulin; Z79.84 Long term (current) use of oral hypoglycemic drugs; Z89.412 Acquired absence of left great toe; Z89.411 Acquired absence of right great toe; Z89.422 Acquired absence of other left toe(s); Z89.421 Acquired absence of other right toe(s); Z86.73 Personal history of transient ischemic attack (TIA), and cerebral infarction without residual deficits; Z95.5 Presence of coronary angioplasty implant and graft; Z96.641 Presence of right artificial hip joint; Z79.899 Other long term (current) drug therapy; Z79.82 Long term (current) use of aspirin; Z79.02 Long term (current) use of antithrombotics/antiplatelets; Z88.6 Allergy status to analgesic agent
CPT/HCPCS: 36415; 36556; 51702; 71045; 71250; 73721; 74176; 80048; 80053; 80164; 81000; 82947; 83036; 83605; 83690; 83735; 84439; 84443; 85025; 85027; 85379; 85610; 85652; 85730; 86141; 87040; 87636; 93041; 93970; 94640; 94760

== ENCOUNTER → 2022-09-10 | Outpatient (CLI) | payer MEDICARE, MEDICAID ==
[~2022-09-10] MED LIST changes: +DOXY100C5 PO; +HYDR-3817 PO; +LEVO-55 PO; +LEVO150T6 PO; +OLN5T PO; +POLY17PO6 PO
== END ==
LOC: WOUNDCARE 09:08
PROVIDERS: ATTEND Family Medicine
DX: E11.621 Type 2 diabetes mellitus with foot ulcer (principal); L97.522 Non-pressure chronic ulcer of other part of left foot with fat layer exposed; L97.429 Non-pressure chronic ulcer of left heel and midfoot with unspecified severity; E11.65 Type 2 diabetes mellitus with hyperglycemia; E11.40 Type 2 diabetes mellitus with diabetic neuropathy, unspecified; R26.89 Other abnormalities of gait and mobility; M20.42 Other hammer toe(s) (acquired), left foot; I70.244 Atherosclerosis of native arteries of left leg with ulceration of heel and midfoot; D46.4 Refractory anemia, unspecified; T65.222A Toxic effect of tobacco cigarettes, intentional self-harm, initial encounter; E66.01 Morbid (severe) obesity due to excess calories; I25.10 Atherosclerotic heart disease of native coronary artery without angina pectoris; J44.9 Chronic obstructive pulmonary disease, unspecified; T81.31XA Disruption of external operation (surgical) wound, not elsewhere classified, initial encounter; T87.89 Other complications of amputation stump; F01.A0 Vascular dementia, mild, without behavioral disturbance, psychotic disturbance, mood disturbance, and anxiety; B96.5 Pseudomonas (aeruginosa) (mallei) (pseudomallei) as the cause of diseases classified elsewhere; B95.2 Enterococcus as the cause of diseases classified elsewhere; E11.52 Type 2 diabetes mellitus with diabetic peripheral angiopathy with gangrene
CPT/HCPCS: 11042; 97597; G0463

== ENCOUNTER → 2022-09-23 | Outpatient (CLI) | payer MEDICARE, MEDICAID | LOC: WOUNDCARE 08:31 | PROVIDERS: ATTEND Family Medicine | DX: E11.621 Type 2 diabetes mellitus with foot ulcer (principal); L97.429 Non-pressure chronic ulcer of left heel and midfoot with unspecified severity; E11.65 Type 2 diabetes mellitus with hyperglycemia; E11.610 Type 2 diabetes mellitus with diabetic neuropathic arthropathy; M20.42 Other hammer toe(s) (acquired), left foot; R26.89 Other abnormalities of gait and mobility; D46.4 Refractory anemia, unspecified; I70.244 Atherosclerosis of native arteries of left leg with ulceration of heel and midfoot; T65.292A Toxic effect of other tobacco and nicotine, intentional self-harm, initial encounter; E44.0 Moderate protein-calorie malnutrition; I25.10 Atherosclerotic heart disease of native coronary artery without angina pectoris; J44.9 Chronic obstructive pulmonary disease, unspecified; F01.A0 Vascular dementia, mild, without behavioral disturbance, psychotic disturbance, mood disturbance, and anxiety; E11.52 Type 2 diabetes mellitus with diabetic peripheral angiopathy with gangrene | CPT/HCPCS: 99212 ==

== ENCOUNTER → 2022-10-09 | Outpatient (CLI) | payer MEDICARE, MEDICAID | LOC: WOUNDCARE 09:18 | PROVIDERS: ATTEND Family Medicine | DX: E11.621 Type 2 diabetes mellitus with foot ulcer (principal); L97.429 Non-pressure chronic ulcer of left heel and midfoot with unspecified severity; E11.65 Type 2 diabetes mellitus with hyperglycemia; E11.610 Type 2 diabetes mellitus with diabetic neuropathic arthropathy; M20.42 Other hammer toe(s) (acquired), left foot; R26.89 Other abnormalities of gait and mobility; D46.4 Refractory anemia, unspecified; I70.244 Atherosclerosis of native arteries of left leg with ulceration of heel and midfoot; T65.292A Toxic effect of other tobacco and nicotine, intentional self-harm, initial encounter; E44.0 Moderate protein-calorie malnutrition; I25.10 Atherosclerotic heart disease of native coronary artery without angina pectoris; J44.9 Chronic obstructive pulmonary disease, unspecified; F01.50 Vascular dementia, unspecified severity, without behavioral disturbance, psychotic disturbance, mood disturbance, and anxiety; A49.9 Bacterial infection, unspecified; E11.52 Type 2 diabetes mellitus with diabetic peripheral angiopathy with gangrene; I96 Gangrene, not elsewhere classified | CPT/HCPCS: 11042; 87070; 87205; G0463 ==

== ENCOUNTER → 2022-10-21 | Outpatient (CLI) | payer MEDICARE, MEDICAID ==
[2022-10-21 09:59] LABS: CALCIUM 9.5 MG/DL (8.5-10.1); CREATININE SERUM 1.22 MG/DL (0.60-1.30); POTASSIUM 5.1 MMOL/L (3.6-5.0)
--- NOTE | 2022-10-21 19:36 | Diagnostic Imaging Report ---
EXAMINATION: Left calcaneus radiographs, 2 views. COMPARISON: None. HISTORY: 72-year-old male, left heel pain. Concern for osteomyelitis. FINDINGS: There are vascular calcifications. There is no identified radiopaque foreign body. There is mild degenerative type enthesopathy at the Achilles tendon insertion. There is a lucency in the posterior soft tissues which may reflect skin ulcer. There is no identified cortical or aggressive bone destruction. There is no periosteal reaction. IMPRESSION: 1. Lucency in the posterior soft tissues which may reflect skin ulcer. 2. No radiographic evidence of osteomyelitis. The skin ulcer does appear to be nearing the posterior margin of the calcaneus. Consider MRI left ankle without contrast to further evaluate for possibility of osteomyelitis. Dictated by: Dictated on workstation # [id number]
== END ==
LOC: WOUNDCARE 08:31
PROVIDERS: ATTEND Family Medicine
DX: E11.621 Type 2 diabetes mellitus with foot ulcer (principal); E11.65 Type 2 diabetes mellitus with hyperglycemia; E11.40 Type 2 diabetes mellitus with diabetic neuropathy, unspecified; M20.42 Other hammer toe(s) (acquired), left foot; R26.89 Other abnormalities of gait and mobility; D46.4 Refractory anemia, unspecified; I70.244 Atherosclerosis of native arteries of left leg with ulceration of heel and midfoot; T65.292A Toxic effect of other tobacco and nicotine, intentional self-harm, initial encounter; E44.0 Moderate protein-calorie malnutrition; I25.10 Atherosclerotic heart disease of native coronary artery without angina pectoris; L97.425 Non-pressure chronic ulcer of left heel and midfoot with muscle involvement without evidence of necrosis; J44.9 Chronic obstructive pulmonary disease, unspecified; F01.A0 Vascular dementia, mild, without behavioral disturbance, psychotic disturbance, mood disturbance, and anxiety; A49.9 Bacterial infection, unspecified; E11.52 Type 2 diabetes mellitus with diabetic peripheral angiopathy with gangrene
CPT/HCPCS: 11042; 73650; 80048; 85652; 86141; G0463; 36415

== ENCOUNTER 2022-10-26 11:26 | Emergency (ER) | payer MEDICARE, MEDICAID ==
[~2022-10-26] VITALS: Ht 177 cm; Wt 72.5 kg
--- NOTE | 2022-10-26 11:34 | ED Respiratory ---
General Chief Complaint: Respiratory Problems Stated Complaint: SOA Nursing Triage Note: PT ARRIVED PER EMS, ME REPORTS PT SOA. PT IS AWAKE AND ALERT PER SELF, DENIES C/P, STATES SL SOA. Source: patient Exam Limitations: no limitations History of Present Illness Date Seen by Provider: Oct 26, 2022 Time Seen by Provider: 11:24 Initial Comments 72-year-old male presents to the emergency department via EMS from [facility] and rehab. He was reportedly short of breath while there. They state his oxygen was in the low 80s on room air. He does not typically require oxygen. They put him on 3 L via nasal cannula and he was 100% thereafter. He is typically alert to person and place only. On arrival the patient denies any chest pain but does endorse some slight shortness of breath. No fevers or chills. No cough. No abdominal pain. He is alert to person, states he does not know where he is or what the year is. All other systems reviewed and negative except documented per HPI. Voice recognition software was used to help create this chart Allergies and Home Medications Allergies Coded Allergies: acetaminophen (Verified Allergy, Intermediate, 10/26/17) Patient Home Medication List Home Medication List Reviewed: Yes Albuterol Sulfate (Albuterol Sulfate) 2.5 Mg/3 Ml Vial.neb, 2.5 MG NEB UD PRN for SHORTNESS OF BREATH, (Reported) Entered as Reported by: AMMY PALAFOX on 12/08/18 1448 Cholecalciferol (Vitamin D3) (Vitamin D3) 125 Mcg (5000 Unit) Capsule, 125 MCG PO DAILY, (Reported) Entered as Reported by: MURTAZA CRUM on 12/21/19 1616 Clonazepam (Clonazepam) 0.5 Mg Tablet, 0.5 MG PO 0800,1400,2000, (Reported) Entered as Reported by: MURTAZA CRUM on 11/27/21 1456 Clonidine HCl (Clonidine HCl) 0.2 Mg Tablet, 0.2 MG PO BID, (Reported) Entered as Reported by: SAIMA HAMPTON on 07/04/20 1115 Clopidogrel Bisulfate (Plavix) 75 Mg Tablet, 75 MG PO DAILY, (Reported) Entered as Reported by: AMMY PALAFOX on 03/05/17 0918 Divalproex Sodium (Divalproex Sodium) 125 Mg Cap.sprink, 250 MG PO TID, (Reported) Entered as Reported by: AMMY PALAFOX on 03/05/17 0918 Docusate Sodium (Colace) 100 Mg Capsule, 100 MG PO BID, (Reported) Entered as Reported by: MURTAZA CRUM on 12/21/19 1616 Doxycycline Hyclate (Doxycycline Hyclate) 100 Mg Capsule, 100 MG PO 0900,2100, (Reported) Entered as Reported by: MURTAZA CRUM on 09/02/22 1322 Dulaglutide (Trulicity) 0.75 Mg/0.5 Ml Pen.injctr, 0.75 MG SC SUN, (Reported) Entered as Reported by: AMMY PALAFOX on 12/08/18 1448 Enalapril Maleate (Enalapril Maleate) 2.5 Mg Tablet, 2.5 MG PO DAILY, (Reported) Entered as Reported by: AMMY PALAFOX on 03/05/17 0918 Ferrous Sulfate (Ferrous Sulfate) 325 Mg Tablet, 325 MG PO Q48H, (Reported) Entered as Reported by: MURTAZA CRUM on 12/21/19 161 Gabapentin (Neurontin) 300 Mg Capsule, 300 MG PO HS, (Reported) Entered as Reported by: MURTAZA CRUM on 12/21/19 161 Glucagon HCl (Glucagon Emergency Kit) 1 Mg Vial, 1 MG IM UD PRN for HYPOGLYCEMIA, (Reported) Entered as Reported by: MURTAZA CRUM on 11/27/21 1456 Hydrocodone/Acetaminophen (Hydrocodone-Acetamin 7.5-325) 7.5 Mg-325 Mg Tablet, 1 EA PO Q6H PRN for PAIN-MODERATE (5-7), (Reported) Entered as Reported by: MURTAZA CRUM on 09/02/22 1322 Icosapent Ethyl (Vascepa) 1 Gm Capsule, 1 GM PO BID, (Reported) Entered as Reported by: AMMY PALAFOX on 12/08/18 1448 Insulin Aspart (Novolog) 100 Unit/Ml Susp, 7 UNIT SQ AC, (Reported) Entered as Reported by: SAIMA HAMPTON on 04/29/19 0816 Insulin Detemir (Levemir Flextouch) 100 Unit/Ml (3 Ml) Insuln.pen, 20 UNITS SC DAILY, (Reported) Entered as Reported by: MURTAZA CRUM on 12/21/19 1616 Lactobacillus Acidophilus/Pect (Acidophilus-Pectin Capsule) 1 Each Capsule, 1 CAP PO QID, (Reported) Entered as Reported by: AMMY PALAFOX on 12/08/18 1448 Lansoprazole (Lansoprazole) 15 Mg Capsule.dr, 15 MG PO DAILY, (Reported) Entered as Reported by: MURTAZA CRUM on 11/27/21 1456 Levetiracetam (Levetiracetam) 500 Mg Tablet, 500 MG PO BID, (Reported) Entered as Reported by: AMMY PALAFOX on 03/05/17 0918 Levofloxacin (Levofloxacin) 500 Mg Tablet, 500 MG PO DAILY, (Reported) Entered as Reported by: MURTAZA CRUM on 09/02/22 1322 Levothyroxine Sodium (Levothyroxine Sodium) 150 Mcg Tablet, 150 MCG PO DAILY, (Reported) Entered as Reported by: MURTAZA CRUM on 09/02/22 1322 Mag Hydrox/Al Hydrox/Simeth (Mylanta Suspension) 30 Ml Oral.susp, 30 ML PO Q4H PRN for INDIGESTION, (Reported) Entered as Reported by: AMMY PALAFOX on 03/05/17 0918 Magnesium Hydroxide (Milk of Magnesia) 400 Mg/5 Ml Oral.susp, 30 ML PO DAILY PRN for CONSTIPATION-1ST LINE, (Reported) Entered as Reported by: AMMY PALAFOX on 02/25/18 0933 Melatonin (Melatonin) 3 Mg Tablet, 3 MG PO HS, (Reported) Entered as Reported by: AMMY PALAFOX on 03/05/17 0918 Memantine HCl (Memantine HCl) 5 Mg Tablet, 5 MG PO HS, (Reported) Entered as Reported by: MURTAZA CRUM on 11/27/21 1456 Metformin HCl (Metformin HCl) 500 Mg Tablet, 1,000 MG PO BID, (Reported) Entered as Reported by: MURTAZA CRUM on 11/27/21 1456 Metoprolol Tartrate (Metoprolol Tartrate) 50 Mg Tablet, 50 MG PO BID WITH MEALS, (Reported) Entered as Reported by: SAIMA HAMPTON on 07/04/20 1115 Mirtazapine (Mirtazapine) 15 Mg Tablet, 15 MG PO HS, (Reported) Entered as Reported by: SAIMA HAMPTON on 07/04/20 1115 Multivitamin (Multivitamin) 1 Each Tablet, 1 EACH PO DAILY, (Reported) Entered as Reported by: MURTAZA CRUM on 11/27/21 1456 Olanzapine (Olanzapine) 5 Mg Tablet, 5 MG PO DAILY, (Reported) Entered as Reported by: IVONNE COOPER on 09/01/22 0856 Polyethylene Glycol 3350 (Miralax) 17 Gram Powd.pack, 17 GM PO DAILY, (Reported) Entered as Reported by: IVONNE COOPER on 09/01/22 0856 Propylene Glycol (Systane Complete) 0.6 % Drops, 1 DROP OU BID, (Reported) Entered as Reported by: MURTAZA CRUM on 11/27/21 1456 Simvastatin (Simvastatin) 10 Mg Tablet, 10 MG PO HS, (Reported) Entered as Reported by: MURTAZA CRUM on 11/27/21 1456 Tamsulosin HCl (Flomax) 0.4 Mg Cap, 0.4 MG PO DAILY, (Reported) Entered as Reported by: AMMY PALAFOX on 12/08/18 1448 Venlafaxine HCl (Venlafaxine HCl) 75 Mg Tab, 75 MG PO DAILY, (Reported) Entered as Reported by: MURTAZA CRUM on 09/02/22 1322 Review of Systems Review of Systems Constitutional: see HPI Past Bcjsjcf-Sxmwgm-Dvphnc Hx Patient Social History Tobacco Use?: No Use of E-Cig and/or Vaping dev: No Substance use?: No Alcohol Use?: No Immunizations Up To Date Tetanus Booster (TDap): Unknown PED Vaccines UTD: Yes First/Initial COVID19 Vaccinat: 04/27/20 Second COVID19 Vaccination Joaquin: 05/18/20 Third COVID19 Vaccination Date: 03/14/21 Seasonal Allergies Seasonal Allergies: No Past Medical History Surgery/Hospitalization HX: HTN,DEMENTIA,DEPRESSION, ANXIETY, DM 2 NOW INSULIN DEPENDENT, SEIZURES, BPH, COPD, PVD, ANEMIA ,ARTHRITIS RIGHT FEMUR FX, RIGHT HIP REPLACEMENT Surgeries: Yes (KNEE SX; BACK-DISCECTOMY/FUSIONS;TOE AMPUTATION;L EYE CATARACT 09/01/20) Amputation, Cardiac, Coronary Stent, Eye Surgery, Orthopedic, Tracheostomy Respiratory: Yes (HX OF RESP. FAILURE WITH TRACH/LATER REMOVED) COPD Currently Using CPAP: No Currently Using BIPAP: No Cardiac: Yes (STENT IN ; SEVERE MULTIVESSEL CAD--INOPERABLE) Angina, Coronary Artery Disease, High Cholesterol, Hypertension, Peripheral Vascular Neurological: Yes (VASCULAR DEMENTIA W/BEHAVIOR DISTURBANCE;PSEUDOBULBAR AFFECT;CVA R FRONTAL) Dementia, Neuropathy, Seizure Disorder, Stroke Reproductive Disorders: No Genitourinary: No Gastrointestinal: Yes (CHRONIC PANCREATITIS/HX OF HEMORRHAGIC PANCREATITIS;SPLENOMEGALY) Gastroesophageal Reflux, Pancreatitis, Esophageal Varices Musculoskeletal: Yes ( CHRONIC PAIN;MULTIPLE TOE AMPUTATIONS;OSTEOMYELITIS;R HIP FX;L FEMUR FX) Amputee, Degenerate Disk Disease, Arthritis, Chronic Back Pain, Fractures Endocrine: Yes Diabetes, Insulin dep, Hypothyroidsim HEENT: Yes Cataract Cancer: No Psychosocial: Yes (DEMENTIA WITH BEHAVIOR DISTURBANCE;HX OF POLYSUBSTANCE ABUSE) Anxiety, Depression Integumentary: Yes (OSTEOMYELITIS/CELLULITIS OF TOES/FEET;CHRONIC FOOT ULCERS) Blood Disorders: No Family Medical History Cardiovascular disease 19 FATHER 19 MOTHER Diabetes mellitus G8 BROTHER FH: cancer Thyroid disease 19 MOTHER (HYPOTHYROIDISM) No Pertinent Family Hx SOCIAL HISTORY: -ETOH--HX OF ABUSE -DRUGS-HX OF METHADONE USE/ABUSE -SMOKES 2 PPD PAST SURGICAL HISTORY: -RIGHT CATARACT SURGERY 08/2020 -LEFT CATARACT SURGERY 06/2020 -RIGHT HIP FRACTURE 08/09/19--TRANSFERRED TO [facility] -RIGHT GREAT TOE AND 3RD TOE AMPUTATION DUE TO OPEN FRACTURE OF 3RD TOE AND OSTEOMYELITIS 12/[address] ALICEA -AMPUTATIONS OF RIGHT 2ND AND 4TH TOES -AMPUTATIONS OF LEFT GREAT AND SECOND TOES -RIGHT KNEE SURGERY X 4 -BACK SURGERIES--DISCECTOMY/FUSIONS -CARDIAC CATH WITH STENT -CHOLECYSTECTOMY -STENT PLACEMENT IN PANCREAS WITH REMOVAL OF PSEUDOCYST -TRACHEOSTOMY WITH LATER REMOVAL -RIGHT 4TH TOE RAY AMPUTATION 09/11/13 DR. ABDULLAHI BUCKLEY -CARDIAC CATH 12/[address] BEARDEN--MULTI-VESSEL DISEASE/INOPERABLE -11/16/21--FRACTURE OF PROSTHETIC RIGHT HIP/TRANSFERRED TO [facility] AND HAD SURGICAL REPAIR AT THAT TIME. LONG HISTORY OF EXTREME NON-COMPLIANCE IN ALL ASPECTS OF CARE Physical Exam Vital Signs - First Documented 10/26/22 11:29 Temp 37.2 Pulse 59 Resp 16 B/P (MAP) 154/92 (112) O2 Delivery Room Air Capillary Refill : Less Than 3 Seconds Height: 5'10.00" Weight: 180lbs. 0.0oz. [id number]; 23.00 BMI Method:Stated General Appearance: WD/WN, no apparent distress Eyes: Bilateral Eye Normal Inspection, Bilateral Eye PERRL, Bilateral Eye EOMI HEENT: normal ENT inspection, pharynx normal Neck: non-tender, supple Respiratory: chest non-tender, lungs clear, normal breath sounds, no respiratory distress, no accessory muscle use Cardiovascular: regular rate, rhythm, no edema, no murmur Gastrointestinal: normal bowel sounds, non tender, soft, no organomegaly Extremities: normal range of motion, non-tender, normal inspection, no pedal edema, no calf tenderness, normal capillary refill Neurologic/Psychiatric: no motor/sensory deficits, alert, normal mood/affect Skin: normal color, warm/dry Progress/Results/Core Measures Suspected Sepsis SIRS Temperature: Pulse: 59 Respiratory Rate: 16 Laboratory Tests 10/26/22 11:45: White Blood Count 8.2 Blood Pressure 154 /92 Mean: 112 Laboratory Tests 10/26/22 11:45: Creatinine 0.89, Platelet Count 200, Total Bilirubin 0.2 Results/Orders Lab Results Laboratory Tests Test 10/26/22 11:45 10/26/22 11:50 Range/Units White Blood Count 8.2 4.3-11.0 10^3/uL Red Blood Count 3.62 L 4.30-5.52 10^6/uL Hemoglobin 11.0 L 13.3-17.7 g/dL Hematocrit 35 L 40-54 % Mean Corpuscular Volume 97 80-99 fL Mean Corpuscular Hemoglobin 30 25-34 pg Mean Corpuscular Hemoglobin Concent 31 L 32-36 g/dL Red Cell Distribution Width 13.4 10.0-14.5 % Platelet Count 200 130-400 10^3/uL Mean Platelet Volume 12.1 9.0-12.2 fL Immature Granulocyte % (Auto) 0 % Neutrophils (%) (Auto) 58 42-75 % Lymphocytes (%) (Auto) 33 12-44 % Monocytes (%) (Auto) 7 0-12 % Eosinophils (%) (Auto) 1 0-10 % Basophils (%) (Auto) 1 0-10 % Neutrophils # (Auto) 4.7 1.8-7.8 10^3/uL Lymphocytes # (Auto) 2.7 1.0-4.0 10^3/uL Monocytes # (Auto) 0.6 0.0-1.0 10^3/uL Eosinophils # (Auto) 0.1 0.0-0.3 10^3/uL Basophils # (Auto) 0.1 0.0-0.1 10^3/uL Immature Granulocyte # (Auto) 0.0 0.0-0.1 10^3/uL Percent Immature Platelet Fraction 6.3 0.0-7.6 % Sodium Level 137 135-145 MMOL/L Potassium Level 5.3 H 3.6-5.0 MMOL/L Chloride Level 105 98-107 MMOL/L Carbon Dioxide Level 19 L 21-32 MMOL/L Anion Gap 13 5-14 MMOL/L Blood Urea Nitrogen 20 H 7-18 MG/DL Creatinine 0.89 0.60-1.30 MG/DL Estimat Glomerular Filtration Rate 92 BUN/Creatinine Ratio 22 Glucose Level 140 H 70-105 MG/DL Calcium Level 9.0 8.5-10.1 MG/DL Corrected Calcium 9.4 8.5-10.1 MG/DL Total Bilirubin 0.2 0.1-1.0 MG/DL Aspartate Amino Transf (AST/SGOT) 16 5-34 U/L Alanine Aminotransferase (ALT/SGPT) 8 0-55 U/L Alkaline Phosphatase 93 40-136 U/L Troponin I < 0.028 <0.028 NG/ML Total Protein 6.4 6.4-8.2 GM/DL Albumin 3.5 3.2-4.5 GM/DL SARS-CoV-2 RNA (RT-PCR) Not Detected Not Detecte My Orders Orders - FABRICIO GALINDO DO Cbc With Automated Diff (10/26/22 11:32) Troponin I Sim (10/26/22 11:32) Ekg Tracing (10/26/22 11:32) Chest 1 View, Ap/Pa Only (10/26/22 11:32) Covid 19 Inhouse Test (10/26/22 11:32) Comprehensive Metabolic Panel (10/26/22 11:32) Vital Signs/I&O 10/26/22 11:29 Temp 37.2 Pulse 59 Resp 16 B/P (MAP) 154/92 (112) O2 Delivery Room Air Capillary Refill : Less Than 3 Seconds 2 Blood Pressure Mean: 112 ECG Comment Sinus rhythm at a rate of 66 bpm. Normal intervals. Left axis deviation. No ST or T wave abnormalities. No ectopy. No STEMI. Departure Communication (Admissions) Patient is hemodynamically stable. He is relatively asymptomatic outside of some mild subjective shortness of breath on arrival here. I have independently reviewed his chest x-ray which shows no acute abnormality, no focal infiltrate, pneumothorax or pleural effusion. Bony structures are unremarkable as well. I reviewed his lab findings which are also negative. His COVID test is negative. He is not on oxygen and his oxygen saturation has been in the mid 90s and stable. He is discharged back to the nursing facility in stable condition. Impression Primary Impression: Shortness of breath Disposition: HOME, SELF-CARE Condition: Stable Departure-Patient Inst. Referrals: STEPHANIE CHRISTIANSEN (PCP) Primary Care Physician Patient Instructions: Shortness of Breath, Adult ED Add. Discharge Instructions: There is medication for emergent medical condition at this time. Your chest x- ray is clear and your labs are reassuring. Your vital signs are normal. Return to the emergency department for any severe concerns. Follow-up primary doctor for any nonemergent needs. All discharge instructions reviewed with patient and/or family. Voiced understanding. FABRICIO GALINDO DO Oct 26, 2022 11:34
[2022-10-26 12:00] LABS: EOSINOPHILS # (AUTO) 0.1 10^3/uL (0.0-0.3); EOSINOPHILS % (AUTO) 1 % (0-10); MONOCYTES # (AUTO) 0.6 10^3/uL (0.0-1.0)
[2022-10-26 12:01] LABS: BASOPHILS # (AUTO) 0.1 10^3/uL (0.0-0.1); BASOPHILS % (AUTO) 1 % (0-10); HEMATOCRIT 35 % (40-54); LYMPHOCYTES # (AUTO) 2.7 10^3/uL (1.0-4.0); LYMPHOCYTES % (AUTO) 33 % (12-44); MEAN CORPUSCULAR HEMOGLOBIN 30 pg (25-34); MEAN CORPUSCULAR HGB CONC 31 g/dL (32-36); MEAN CORPUSCULAR VOLUME 97 fL (80-99); MEAN PLATELET VOLUME 12.1 fL (9.0-12.2); MONOCYTES % (AUTO) 7 % (0-12); NEUTROPHILS # (AUTO) 4.7 10^3/uL (1.8-7.8); NEUTROPHILS % (AUTO) 58 % (42-75); PLATELET COUNT 200 10^3/uL (130-400); WHITE BLOOD COUNT 8.2 10^3/uL (4.3-11.0)
[2022-10-26 12:03] LABS: ALBUMIN 3.5 GM/DL (3.2-4.5); CHLORIDE 105 MMOL/L (98-107); POTASSIUM 5.3 MMOL/L (3.6-5.0); SODIUM 137 MMOL/L (135-145)
[2022-10-26 12:06] LABS: GLUCOSE 140 MG/DL (70-105); TOTAL PROTEIN 6.4 GM/DL (6.4-8.2)
[2022-10-26 12:07] LABS: BILIRUBIN,TOTAL 0.2 MG/DL (0.1-1.0); CARBON DIOXIDE 19 MMOL/L (21-32)
[2022-10-26 12:09] LABS: ALKALINE PHOSPHATASE 93 U/L (40-136); CREATININE SERUM 0.89 MG/DL (0.60-1.30); GFR ESTIMATED 92
[2022-10-26 12:10] LABS: BUN/CREATININE RATIO 22
[2022-10-26 12:12] LABS: ALANINE AMINOTRANSFERASE 8 U/L (0-55)
--- NOTE | 2022-10-26 12:17 | Diagnostic Imaging Report ---
INDICATION: Shortness of air TECHNIQUE: Single view chest 12:07 PM CORRELATION STUDY: 08/31/2022 FINDINGS: Heart size and mediastinum are enlarged and prominent but appears stable. Vasculature normal at follow-up. Prominent pleural thickening again demonstrated along the left lateral chest wall, stable to slightly improved. No new infiltrate opacity. IMPRESSION: 1. Likely largely chronic change about the lung parenchyma including pleural thickening left lateral chest wall. No acute abnormality or significant interval change. Dictated by: Dictated on workstation # [id number]
[2022-10-26 13:04] VITALS: BP 100/64
== END 2022-10-26 13:36 | disposition home or self-care (01) ==
LOC: EDUNIT# 11:26 → ER 11:28
DX: R06.02 Shortness of breath (principal); E11.9 Type 2 diabetes mellitus without complications; F17.210 Nicotine dependence, cigarettes, uncomplicated; Z20.822 Contact with and (suspected) exposure to COVID-19; Z79.4 Long term (current) use of insulin
CPT/HCPCS: 36415; 71045; 80053; 84484; 85025; 87636

== ENCOUNTER → 2022-11-18 | Outpatient (CLI) | payer MEDICARE, MEDICAID | LOC: WOUNDCARE 08:48 | PROVIDERS: ATTEND Family Medicine | DX: L97.425 Non-pressure chronic ulcer of left heel and midfoot with muscle involvement without evidence of necrosis (principal); E11.621 Type 2 diabetes mellitus with foot ulcer; E11.65 Type 2 diabetes mellitus with hyperglycemia; E11.42 Type 2 diabetes mellitus with diabetic polyneuropathy; M20.42 Other hammer toe(s) (acquired), left foot; R26.89 Other abnormalities of gait and mobility; D46.4 Refractory anemia, unspecified; I70.244 Atherosclerosis of native arteries of left leg with ulceration of heel and midfoot; T65.292A Toxic effect of other tobacco and nicotine, intentional self-harm, initial encounter; E44.0 Moderate protein-calorie malnutrition; I25.10 Atherosclerotic heart disease of native coronary artery without angina pectoris; J44.9 Chronic obstructive pulmonary disease, unspecified; F01.A0 Vascular dementia, mild, without behavioral disturbance, psychotic disturbance, mood disturbance, and anxiety; E11.52 Type 2 diabetes mellitus with diabetic peripheral angiopathy with gangrene; I96 Gangrene, not elsewhere classified | CPT/HCPCS: 11042; G0463 ==

== ENCOUNTER 2022-12-01 18:08 | Inpatient (IN) | payer MEDICARE, MEDICAID ==
[~2022-12-01] VITALS: Ht 177 cm; Wt 81.6 kg
[2022-12-01] MEDS ORDERED: GLUCAGON EMERGENCY 1 MG/KIT IM ONE (18:15)
[2022-12-01] MEDS ORDERED: D5 NS 1,000 ML IV SOLN 1,000 ML IV STA (18:30)
--- NOTE | 2022-12-01 19:02 | Diagnostic Imaging Report ---
PROCEDURE: CT head wo r/o stroke. TECHNIQUE: Multiple contiguous axial images were obtained through the brain without the use of intravenous contrast. Auto Exposure Controls were utilized during the CT exam to meet ALARA standards for radiation dose reduction. INDICATION: Hyperglycemia, facial droop, unresponsive. COMPARISON: CT of the head on 11/24/2021. FINDINGS: No acute intracranial hemorrhage. The powell-white matter differentiation is preserved. Redemonstration of encephalomalacia within the right frontal lobe. No midline shift or mass effect. No intracranial mass or fluid collection. Scattered hypoattenuation within the periventricular and subcortical white matter. Less prominence of the ventricles and cortical sulci. Scattered calcifications of the intracranial vasculature. The paranasal sinuses and mastoids are clear. The globes and orbits are normal. IMPRESSION: No acute intracranial hemorrhage. No large vascular territory zee-white loss. No intracranial mass, midline shift, or hydrocephalus.. Encephalomalacia within the right frontal lobe. Moderate chronic small vessel ischemic disease. Mild global volume loss. Dictated by: Dictated on workstation # [id number]
[2022-12-01] MEDS ORDERED: DEXTROSE 50% 50 ML (IMS) SYR IV ONE ×2 (19:15→19:30)
[2022-12-01] MEDS ORDERED: LevETIRAcetam INJECTION 500 MG in NS (IVPB) 100 ML 100 ML IV STA (19:18)
--- NOTE | 2022-12-01 19:37 | ED General ---
General Chief Complaint: Glucose Problems Stated Complaint: HYPOGLYCEMIA Nursing Triage Note: PT PRESENTS TO ED VIA EMS FROM [facility] FOR HYPOGLYCEMIA. STAFF REPORTS PT FFINGER STICK BS WAS 41 AT 1730. REPORTS THEY ATTEMPTED TO GIVE PT ORAL GLUCOSE BUT STATED IS MAINLY DROOLED OUT OF HIS MOUTH. PT WAS UNRESPONSIVE UPON ARRIVAL TO ED WITH APNIC EPISODES AND SNORING RESPIRATIONS. Source of Information: Patient Exam Limitations: No Limitations History of Present Illness Date Seen by Provider: Dec 01, 2022 Time Seen by Provider: 08:10 Initial Comments This 72-year-old gentleman presents to the emergency room via EMS with primary complaint of hypoglycemia. senior living reported blood sugar was 41. Blood sugar read "low" for EMS. Patient has significant altered mental status and minimal responsiveness. He is breathing and maintaining oxygen saturations on arrival. EMS was unable to establish an IV line. Nursing staff also were unable to promptly establish an IV line on arrival. He was given glucagon 1 mg IM. Eventually IO line was placed and an amp of D50 was administered. Patient also has history of seizure disorder. If seizure occurred, it apparently was not witnessed. Patient's cognitive baseline is unknown. Patient is noted to take both long-acting and short acting insulin. No reported illness prior to this event. Allergies and Home Medications Allergies Coded Allergies: acetaminophen (Verified Allergy, Intermediate, 10/26/17) Patient Home Medication List Home Medication List Reviewed: Yes Albuterol Sulfate (Albuterol Sulfate) 2.5 Mg/3 Ml Vial.neb, 2.5 MG NEB UD PRN for SHORTNESS OF BREATH, (Reported) Entered as Reported by: AMMY PALAFOX on 12/08/18 1448 Cholecalciferol (Vitamin D3) (Vitamin D3) 125 Mcg (5000 Unit) Capsule, 125 MCG PO DAILY, (Reported) Entered as Reported by: MURTAZA CRUM on 12/21/19 1616 Clonazepam (Clonazepam) 0.5 Mg Tablet, 0.5 MG PO 0800,1400,2000, (Reported) Entered as Reported by: MURTAZA CRUM on 11/27/21 1456 Clonidine HCl (Clonidine HCl) 0.2 Mg Tablet, 0.2 MG PO BID, (Reported) Entered as Reported by: SAIMA HAMPTON on 07/04/20 1115 Clopidogrel Bisulfate (Plavix) 75 Mg Tablet, 75 MG PO DAILY, (Reported) Entered as Reported by: AMMY PALAFOX on 03/05/17 0918 Divalproex Sodium (Divalproex Sodium) 125 Mg Cap.sprink, 250 MG PO TID, (Reported) Entered as Reported by: AMMY PALAFOX on 03/05/17 09 Docusate Sodium (Colace) 100 Mg Capsule, 100 MG PO BID, (Reported) Entered as Reported by: MURTAZA CRUM on 12/21/19 161 Doxycycline Hyclate (Doxycycline Hyclate) 100 Mg Capsule, 100 MG PO 0900,2100, (Reported) Entered as Reported by: MURTAZA CRUM on 09/02/22 132 Dulaglutide (Trulicity) 0.75 Mg/0.5 Ml Pen.injctr, 0.75 MG SC SUN, (Reported) Entered as Reported by: AMMY PALAFOX on 12/08/18 1448 Enalapril Maleate (Enalapril Maleate) 2.5 Mg Tablet, 2.5 MG PO DAILY, (Reported) Entered as Reported by: AMMY PALAFOX on 03/05/17 09 Ferrous Sulfate (Ferrous Sulfate) 325 Mg Tablet, 325 MG PO Q48H, (Reported) Entered as Reported by: MURTAZA CRUM on 12/21/19 161 Gabapentin (Neurontin) 300 Mg Capsule, 300 MG PO HS, (Reported) Entered as Reported by: MURTAZA CRUM on 12/21/19 161 Glucagon HCl (Glucagon Emergency Kit) 1 Mg Vial, 1 MG IM UD PRN for HYPOGLYCEMIA, (Reported) Entered as Reported by: MURTAZA CRUM on 11/27/21 1456 Hydrocodone/Acetaminophen (Hydrocodone-Acetamin 7.5-325) 7.5 Mg-325 Mg Tablet, 1 EA PO Q6H PRN for PAIN-MODERATE (5-7), (Reported) Entered as Reported by: MURTAZA CRUM on 09/02/22 1322 Icosapent Ethyl (Vascepa) 1 Gm Capsule, 1 GM PO BID, (Reported) Entered as Reported by: AMMY PALAFOX on 12/08/18 1448 Insulin Aspart (Novolog) 100 Unit/Ml Susp, 7 UNIT SQ AC, (Reported) Entered as Reported by: SAIMA HAMPTON on 04/29/19 0816 Insulin Detemir (Levemir Flextouch) 100 Unit/Ml (3 Ml) Insuln.pen, 20 UNITS SC DAILY, (Reported) Entered as Reported by: MURTAZA CRUM on 12/21/19 1616 Lactobacillus Acidophilus/Pect (Acidophilus-Pectin Capsule) 1 Each Capsule, 1 CAP PO QID, (Reported) Entered as Reported by: AMMY PALAFOX on 12/08/18 1448 Lansoprazole (Lansoprazole) 15 Mg Capsule.dr, 15 MG PO DAILY, (Reported) Entered as Reported by: MURTAZA CRUM on 11/27/21 145 Levetiracetam (Levetiracetam) 500 Mg Tablet, 500 MG PO BID, (Reported) Entered as Reported by: AMMY PALAFOX on 03/05/17 09 Levofloxacin (Levofloxacin) 500 Mg Tablet, 500 MG PO DAILY, (Reported) Entered as Reported by: MURTAZA CRUM on 09/02/22 1322 Levothyroxine Sodium (Levothyroxine Sodium) 150 Mcg Tablet, 150 MCG PO DAILY, (Reported) Entered as Reported by: MURTAZA CRUM on 09/02/22 1322 Mag Hydrox/Al Hydrox/Simeth (Mylanta Suspension) 30 Ml Oral.susp, 30 ML PO Q4H PRN for INDIGESTION, (Reported) Entered as Reported by: AMMY PALAFOX on 03/05/17 09 Magnesium Hydroxide (Milk of Magnesia) 400 Mg/5 Ml Oral.susp, 30 ML PO DAILY PRN for CONSTIPATION-1ST LINE, (Reported) Entered as Reported by: AMMY PALAFOX on 02/25/18 0933 Melatonin (Melatonin) 3 Mg Tablet, 3 MG PO HS, (Reported) Entered as Reported by: AMMY PALAFOX on 03/05/17 0918 Memantine HCl (Memantine HCl) 5 Mg Tablet, 5 MG PO HS, (Reported) Entered as Reported by: MURTAZA CRUM on 11/27/21 145 Metformin HCl (Metformin HCl) 500 Mg Tablet, 1,000 MG PO BID, (Reported) Entered as Reported by: MURTAZA CRUM on 11/27/21 145 Metoprolol Tartrate (Metoprolol Tartrate) 50 Mg Tablet, 50 MG PO BID WITH MEALS, (Reported) Entered as Reported by: SAIMA HAMPTON on 07/04/20 1115 Mirtazapine (Mirtazapine) 15 Mg Tablet, 15 MG PO HS, (Reported) Entered as Reported by: SAIMA HAMPTON on 07/04/20 1115 Multivitamin (Multivitamin) 1 Each Tablet, 1 EACH PO DAILY, (Reported) Entered as Reported by: MURTAZA CRUM on 11/27/21 1456 Olanzapine (Olanzapine) 5 Mg Tablet, 5 MG PO DAILY, (Reported) Entered as Reported by: IVONNE COOPER on 09/01/22 0856 Polyethylene Glycol 3350 (Miralax) 17 Gram Powd.pack, 17 GM PO DAILY, (Reported) Entered as Reported by: IVONNE COOPER on 09/01/22 0856 Propylene Glycol (Systane Complete) 0.6 % Drops, 1 DROP OU BID, (Reported) Entered as Reported by: MURTAZA CRUM on 11/27/21 1456 Simvastatin (Simvastatin) 10 Mg Tablet, 10 MG PO HS, (Reported) Entered as Reported by: MURTAZA CRUM on 11/27/21 1456 Tamsulosin HCl (Flomax) 0.4 Mg Cap, 0.4 MG PO DAILY, (Reported) Entered as Reported by: AMMY PALAFOX on 12/08/18 1448 Venlafaxine HCl (Venlafaxine HCl) 75 Mg Tab, 75 MG PO DAILY, (Reported) Entered as Reported by: MURTAZA CRUM on 09/02/22 1322 Review of Systems Review of Systems Constitutional: see HPI EENTM: no symptoms reported Respiratory: no symptoms reported Cardiovascular: no symptoms reported Gastrointestinal: no symptoms reported Genitourinary: no symptoms reported Musculoskeletal: no symptoms reported Skin: no symptoms reported Psychiatric/Neurological: See HPI Hematologic/Lymphatic: No Symptoms Reported Immunological/Allergic: no symptoms reported Past Qyqoquh-Bsnsdn-Lstnku Hx Patient Social History Smoking Status: Unknown if Ever Smoked Substance use?: Unable to obtain Alcohol Use?: Unable to obtain Pt feels they are or have been: No Immunizations Up To Date Tetanus Booster (TDap): Unknown PED Vaccines UTD: Yes First/Initial COVID19 Vaccinat: 04/27/20 Second COVID19 Vaccination Joaquin: 05/18/20 Third COVID19 Vaccination Date: 03/14/21 Seasonal Allergies Seasonal Allergies: No Past Medical History Surgery/Hospitalization HX: HTN,DEMENTIA,DEPRESSION, ANXIETY, DM 2 NOW INSULIN DEPENDENT, SEIZURES, BPH, COPD, PVD, ANEMIA ,ARTHRITIS RIGHT FEMUR FX, RIGHT HIP REPLACEMENT Surgeries: Yes (KNEE SX; BACK-DISCECTOMY/FUSIONS;TOE AMPUTATION;L EYE CATARACT 09/01/20) Amputation, Cardiac, Coronary Stent, Eye Surgery, Orthopedic, Tracheostomy Respiratory: Yes (HX OF RESP. FAILURE WITH TRACH/LATER REMOVED) COPD Currently Using CPAP: No Currently Using BIPAP: No Cardiac: Yes (STENT IN ; SEVERE MULTIVESSEL CAD--INOPERABLE) Angina, Coronary Artery Disease, High Cholesterol, Hypertension, Peripheral Vascular Neurological: Yes (VASCULAR DEMENTIA W/BEHAVIOR DISTURBANCE;PSEUDOBULBAR AFFECT;CVA R FRONTAL) Dementia, Neuropathy, Seizure Disorder, Stroke Reproductive Disorders: No Genitourinary: No Gastrointestinal: Yes (CHRONIC PANCREATITIS/HX OF HEMORRHAGIC PANCREATITIS;SPLENOMEGALY) Gastroesophageal Reflux, Pancreatitis, Esophageal Varices Musculoskeletal: Yes ( CHRONIC PAIN;MULTIPLE TOE AMPUTATIONS;OSTEOMYELITIS;R HIP FX;L FEMUR FX) Amputee, Degenerate Disk Disease, Arthritis, Chronic Back Pain, Fractures Endocrine: Yes Diabetes, Insulin dep, Hypothyroidsim HEENT: Yes Cataract Cancer: No Psychosocial: Yes (DEMENTIA WITH BEHAVIOR DISTURBANCE;HX OF POLYSUBSTANCE ABUSE) Anxiety, Depression Integumentary: Yes (OSTEOMYELITIS/CELLULITIS OF TOES/FEET;CHRONIC FOOT ULCERS) Blood Disorders: No Family Medical History Cardiovascular disease 19 FATHER 19 MOTHER Diabetes mellitus G8 BROTHER FH: cancer Thyroid disease 19 MOTHER (HYPOTHYROIDISM) No Pertinent Family Hx SOCIAL HISTORY: -ETOH--HX OF ABUSE -DRUGS-HX OF METHADONE USE/ABUSE -SMOKES 2 PPD PAST SURGICAL HISTORY: -RIGHT CATARACT SURGERY 08/2020 -LEFT CATARACT SURGERY 06/2020 -RIGHT HIP FRACTURE 08/09/19--TRANSFERRED TO [place] -RIGHT GREAT TOE AND 3RD TOE AMPUTATION DUE TO OPEN FRACTURE OF 3RD TOE AND OSTEOMYELITIS 12/[address] ALICEA -AMPUTATIONS OF RIGHT 2ND AND 4TH TOES -AMPUTATIONS OF LEFT GREAT AND SECOND TOES -RIGHT KNEE SURGERY X 4 -BACK SURGERIES--DISCECTOMY/FUSIONS -CARDIAC CATH WITH STENT -CHOLECYSTECTOMY -STENT PLACEMENT IN PANCREAS WITH REMOVAL OF PSEUDOCYST -TRACHEOSTOMY WITH LATER REMOVAL -RIGHT 4TH TOE RAY AMPUTATION 09/11/13 DR. ABDULLAHI BUCKLEY -CARDIAC CATH 12/[address] BEARDEN--MULTI-VESSEL DISEASE/INOPERABLE -11/16/21--FRACTURE OF PROSTHETIC RIGHT HIP/TRANSFERRED TO [facility] AND HAD SURGICAL REPAIR AT THAT TIME. LONG HISTORY OF EXTREME NON-COMPLIANCE IN ALL ASPECTS OF CARE Physical Exam Vital Signs Vital Signs - First Documented 12/01/22 18:11 Temp 36.8 Pulse 62 Resp 8 B/P (MAP) 181/88 (119) Pulse Ox 98 O2 Delivery Room Air Capillary Refill : Less Than 3 Seconds Height, Weight, BMI Height: 5'10.00" Weight: 180lbs. 0.0oz. [id number]; 26.00 BMI Method:Stated General Appearance: WD/WN, Other (Nearly unresponsive) HEENT: PERRL/EOMI, Normal ENT Inspection Neck: Normal Inspection Respiratory: Lungs Clear, No Accessory Muscle Use, No Respiratory Distress, Other (Sonorous breathing with a few episodes of brief apnea) Cardiovascular: Regular Rate, Rhythm, No Edema Gastrointestinal: Non Tender, Soft; No Distended Extremity: Normal Inspection, No Pedal Edema Neurologic/Psychiatric: Other (Nearly unresponsive with extremely decreased level of alertness) Skin: Normal Color, Warm/Dry Progress/Results/Core Measures Suspected Sepsis SIRS Temperature: Pulse: 62 Respiratory Rate: 8 Laboratory Tests 12/01/22 20:30: White Blood Count 11.7H Blood Pressure 181 /88 Mean: 119 Laboratory Tests 12/01/22 20:30: Creatinine 1.11, Platelet Count 193, Total Bilirubin 0.2 Results/Orders Lab Results Laboratory Tests Test 12/01/22 18:26 12/01/22 18:57 12/01/22 20:02 12/01/22 20:30 Range/Units Glucometer 160 H 151 H 92 70-110 MG/DL White Blood Count 11.7 H 4.3-11.0 10^3/uL Red Blood Count 3.81 L 4.30-5.52 10^6/uL Hemoglobin 11.5 L 13.3-17.7 g/dL Hematocrit 35 L 40-54 % Mean Corpuscular Volume 92 80-99 fL Mean Corpuscular Hemoglobin 30 25-34 pg Mean Corpuscular Hemoglobin Concent 33 32-36 g/dL Red Cell Distribution Width 13.7 10.0-14.5 % Platelet Count 193 130-400 10^3/uL Mean Platelet Volume 11.1 9.0-12.2 fL Immature Granulocyte % (Auto) 0 % Neutrophils (%) (Auto) 74 42-75 % Lymphocytes (%) (Auto) 18 12-44 % Monocytes (%) (Auto) 7 0-12 % Eosinophils (%) (Auto) 0 0-10 % Basophils (%) (Auto) 1 0-10 % Neutrophils # (Auto) 8.7 H 1.8-7.8 10^3/uL Lymphocytes # (Auto) 2.1 1.0-4.0 10^3/uL Monocytes # (Auto) 0.8 0.0-1.0 10^3/uL Eosinophils # (Auto) 0.1 0.0-0.3 10^3/uL Basophils # (Auto) 0.1 0.0-0.1 10^3/uL Immature Granulocyte # (Auto) 0.0 0.0-0.1 10^3/uL Sodium Level 140 135-145 MMOL/L Potassium Level 4.2 3.6-5.0 MMOL/L Chloride Level 105 98-107 MMOL/L Carbon Dioxide Level 24 21-32 MMOL/L Anion Gap 11 5-14 MMOL/L Blood Urea Nitrogen 24 H 7-18 MG/DL Creatinine 1.11 0.60-1.30 MG/DL Estimat Glomerular Filtration Rate 71 BUN/Creatinine Ratio 22 Glucose Level 83 70-105 MG/DL Calcium Level 8.7 8.5-10.1 MG/DL Corrected Calcium 9.0 8.5-10.1 MG/DL Magnesium Level 1.5 L 1.6-2.4 MG/DL Total Bilirubin 0.2 0.1-1.0 MG/DL Aspartate Amino Transf (AST/SGOT) 18 5-34 U/L Alanine Aminotransferase (ALT/SGPT) 11 0-55 U/L Alkaline Phosphatase 97 40-136 U/L C-Reactive Protein High Sensitivity 3.04 H 0.00-0.50 MG/DL Total Protein 6.4 6.4-8.2 GM/DL Albumin 3.6 3.2-4.5 GM/DL Thyroid Stimulating Hormone (TSH) 12.58 H 0.35-4.94 UIU/ML Free Thyroxine 0.70 0.70-1.48 NG/DL Valproic Acid (Depakene) Level 40.8 L 50.0-100.0 UG/ML Test 12/01/22 20:55 12/01/22 21:19 12/01/22 21:44 Range/Units Glucometer 76 108 70-110 MG/DL Urine Color YELLOW Urine Clarity CLEAR Urine pH 6.0 5-9 Urine Specific [place] 1.025 H 1.016-1.022 Urine Protein 3+ H NEGATIVE Urine Glucose (UA) NEGATIVE NEGATIVE Urine Ketones TRACE H NEGATIVE Urine Nitrite NEGATIVE NEGATIVE Urine Bilirubin NEGATIVE NEGATIVE Urine Urobilinogen 0.2 < = 1.0 MG/DL Urine Leukocyte Esterase NEGATIVE NEGATIVE Urine RBC (Auto) NEGATIVE NEGATIVE Urine RBC 2-5 H /HPF Urine WBC 5-10 H /HPF Urine Squamous Epithelial Cells 2-5 /HPF Urine Crystals PRESENT H /LPF Urine Amorphous Sediment FEW NELSON URATES H /LPF Urine Bacteria TRACE /HPF Urine Casts PRESENT /LPF Urine Hyaline Casts 10-25 H /LPF Urine Mucus SMALL H /LPF Urine Culture Indicated NO My Orders Orders - CAROL CARRILLO MD Glucagon Emergency Kit (Glucagon Emergen (12/01/22 18:15) Cbc With Automated Diff (12/01/22 18:30) Comprehensive Metabolic Panel (12/01/22 18:30) Hs C Reactive Protein (12/01/22 18:30) Magnesium (12/01/22 18:30) Thyroid Stimulating Hormone (12/01/22 18:30) Ua Culture If Indicated (12/01/22 18:30) Valproic Acid (12/01/22 18:30) [place] Cath (12/01/22 18:30) Free T4 (Free Thyroxine) (12/01/22 18:30) Ed Iv/Invasive Line Start (12/01/22 18:30) D5 Ns 1,000 Ml Iv Soln (Dextrose 5%/0.9 (12/01/22 18:30) Ct Head Wo-R/O Stroke (12/01/22 18:36) D50w (Emergency) Syringe (Dextrose 50% 5 (12/01/22 19:15) D50w (Emergency) Syringe (Dextrose 50% 5 (12/01/22 19:30) Accucheck Stat ONCE (12/01/22 19:16) Accucheck Stat ONCE (12/01/22 19:16) Accucheck Stat ONCE (12/01/22 19:16) Accucheck Stat ONCE (12/01/22 19:16) Levetiracetam Injection (Levetiracetam I (12/01/22 19:18) Ed Admission (Communication) (12/01/22 21:20) Medications Given in ED Current Medications Medications Dose Ordered Sig/Manuel Route Start Time Stop Time Status Last Admin Dose Admin Dextrose 50 ml ONCE ONCE IV 12/01/22 19:15 12/01/22 19:16 DC 12/01/22 18:22 50 ML Dextrose 50 ml ONCE ONCE IV 12/01/22 19:30 12/01/22 19:31 DC 12/01/22 21:04 25 ML Glucagon 1 mg ONCE ONCE IM 12/01/22 18:15 12/01/22 18:16 DC 12/01/22 18:20 1 MG Vital Signs/I&O 12/01/22 12/01/22 18:11 22:06 Temp 36.8 Pulse 62 74 Resp 8 22 B/P (MAP) 181/88 (119) 159/81 Pulse Ox 98 99 O2 Delivery Room Air Room Air 12/02/22 00:00 Intake Total 105 ml Balance 105 ml Capillary Refill : Less Than 3 Seconds 2 Blood Pressure Mean: 119 Progress Note : Progress Note Nursing staff and I immediately converged on emergent care of this patient. Numerous attempts at IV starts were not successful. Glucagon 1 mg IM was administered as emergent treatment. IO line was then established in the right tibia. D50 was administered. Blood sugar was checked after administration of D50 and was 160. Patient was having prompt response to dextrose administration and became responsive. Cognition was quite sluggish but he was able to answer his name and a few other questions. CT of the head was obtained. No acute abnormalities were appreciated by my interpretation. Encephalomalacia was noted. Radiologist's report was noted as below. Labs were obtained. Labs were relatively unremarkable by my interpretation. WBC was slightly elevated at 11.7. Hemoglobin was slightly low at 11.5. CMP was grossly unremarkable. Magnesium was mildly low at 1.5. TSH was elevated at 12.58 but free T4 was normal. CRP was minimally elevated at 3. Valproic acid was below therapeutic level at 40.8. Patient received his evening dose of Keppra as 500 mg IV. It is unknown if patient had a seizure during his hypoglycemic episode that was unwitnessed and resulted in prolonged post ictal state or if he was experiencing a prolonged recovery from severe hypoglycemia. Patient eventually became alert and conversational although he remained somewhat somnolent and sluggish. He was able to answer questions appropriately and move all 4 extremities equally. During the hypoglycemia, patient did experience a few apneic episodes. He also experienced some airway obstruction requiring jaw thrust and chin left. He did not experience any significant hypoxia during any of these episodes. Case was discussed with the counselor marriage and family, Dr. Henry, who presented to the ER and excepted admission. Urinalysis was pending at the time of admission. Patient was hydrated with a liter of D5 normal saline. At one point in time his blood sugar dropped back into the 70s and he seemed more somnolent. 25 mL of D50 was administered at that time to help resuscitate his blood sugars. IV line was eventually established by Mirian Rivero NP. Patient was admitted to the ICU with a peripheral line and the IO line still intact. Diagnostic Imaging Diagonstic Imaging: CT Plain Films/CT/US/NM/MRI: head Comments NAME: JOLLY MANZANARES [facility] REC#: [id number] PT STATUS: REG ER : 1950 PHYSICIAN: CAROL CARRILLO MD ADMIT DATE: 12/01/22/ER Signed Date of Exam:12/01/22 CT HEAD WO-R/O STROKE PROCEDURE: CT head wo r/o stroke. TECHNIQUE: Multiple contiguous axial images were obtained through the brain without the use of intravenous contrast. Auto Exposure Controls were utilized during the CT exam to meet ALARA standards for radiation dose reduction. INDICATION: Hyperglycemia, facial droop, unresponsive. COMPARISON: CT of the head on 11/24/2021. FINDINGS: No acute intracranial hemorrhage. The powell-white matter differentiation is preserved. Redemonstration of encephalomalacia within the right frontal lobe. No midline shift or mass effect. No intracranial mass or fluid collection. Scattered hypoattenuation within the periventricular and subcortical white matter. Less prominence of the ventricles and cortical sulci. Scattered calcifications of the intracranial vasculature. The paranasal sinuses and mastoids are clear. The globes and orbits are normal. IMPRESSION: No acute intracranial hemorrhage. No large vascular territory zee-white loss. No intracranial mass, midline shift, or hydrocephalus.. Encephalomalacia within the right frontal lobe. Moderate chronic small vessel ischemic disease. Mild global volume loss. Dictated by: Dictated on workstation # [id number] Dict: 12/01/221858 Trans: 12/01/221899 [facility] [id number] Interpreted by: MIREYA HU DO Electronically signed by: MIREYA HU DO 12/01/221899 Departure Communication (Admissions) Time/Spoke to Admitting Phy: 21:10 Dr. Henry on behalf of Dr. Bradshaw Impression Primary Impression: Hypoglycemia Additional Impressions: Altered mental status History of seizure disorder Disposition: ADMITTED INPATIENT Condition: Improved Admissions Decision to Admit Reason: Admit from ER (General) Decision to Admit/Date: Dec 01, 2022 Time/Decision to Admit Time: 21:10 Departure-Patient Inst. Referrals: STEPHANIE CHRISTIANSEN (PCP) Primary Care Physician Copy Copies To 1: [facility]/CAROL WEBB MD Dec 01, 2022 19:37
[2022-12-01 20:36] LABS: BASOPHILS # (AUTO) 0.1 10^3/uL (0.0-0.1); BASOPHILS % (AUTO) 1 % (0-10); EOSINOPHILS # (AUTO) 0.1 10^3/uL (0.0-0.3); EOSINOPHILS % (AUTO) 0 % (0-10); HEMATOCRIT 35 % (40-54); HEMOGLOBIN 11.5 g/dL (13.3-17.7); LYMPHOCYTES # (AUTO) 2.1 10^3/uL (1.0-4.0); LYMPHOCYTES % (AUTO) 18 % (12-44); MEAN CORPUSCULAR HEMOGLOBIN 30 pg (25-34); MEAN CORPUSCULAR HGB CONC 33 g/dL (32-36); MEAN CORPUSCULAR VOLUME 92 fL (80-99); MEAN PLATELET VOLUME 11.1 fL (9.0-12.2); MONOCYTES # (AUTO) 0.8 10^3/uL (0.0-1.0); MONOCYTES % (AUTO) 7 % (0-12); NEUTROPHILS # (AUTO) 8.7 10^3/uL (1.8-7.8); NEUTROPHILS % (AUTO) 74 % (42-75); PLATELET COUNT 193 10^3/uL (130-400); WHITE BLOOD COUNT 11.7 10^3/uL (4.3-11.0)
[2022-12-01 20:45] LABS: ALBUMIN 3.6 GM/DL (3.2-4.5); POTASSIUM 4.2 MMOL/L (3.6-5.0)
[2022-12-01 20:46] LABS: CALCIUM 8.7 MG/DL (8.5-10.1)
[2022-12-01 20:47] LABS: TOTAL PROTEIN 6.4 GM/DL (6.4-8.2)
[2022-12-01 20:49] LABS: BILIRUBIN,TOTAL 0.2 MG/DL (0.1-1.0)
[2022-12-01 20:51] LABS: CREATININE SERUM 1.11 MG/DL (0.60-1.30)
[2022-12-01 20:54] LABS: MAGNESIUM 1.5 MG/DL (1.6-2.4)
[2022-12-01 21:01] LABS: VALPROIC ACID 40.8 UG/ML (50.0-100.0)
[2022-12-01 21:14] LABS: FREE T4 (FREE THYROXINE) 0.7 NG/DL (0.70-1.48)
[2022-12-01 21:35] LABS: BACTERIA,URINE TRACE /HPF; BILIRUBIN,URINE NEGATIVE (NEGATIVE); CLARITY,URINE CLEAR; COLOR,URINE YELLOW; GLUCOSE, URINE (UA) NEGATIVE (NEGATIVE); KETONES,URINE TRACE (NEGATIVE); LEUKOCYTE ESTERASE ,URINE NEGATIVE (NEGATIVE); NITRITE,URINE NEGATIVE (NEGATIVE); PROTEIN,URINE 3+ (NEGATIVE)
[2022-12-01 21:36] LABS: AMORPHOUS SEDIMENT,UR FEW AMOR URATES /LPF
[2022-12-01] MEDS ORDERED: CALCIUM CARBONATE 500 MG CHEW TABLET PO PRN (23:00)
[2022-12-01] MEDS ORDERED: ENOXAPARIN 40 MG/0.4 ML SYRINGE SC SCH (23:00)
[2022-12-01] MEDS ORDERED: NS IV 500 ML 500 ML IV PRN (23:00)
[2022-12-01] MEDS ORDERED: ONDANSETRON INJECTION 4 MG/2 ML (SDV) IV PRN (23:00)
[2022-12-01] MEDS ORDERED: ONDANSETRON 4 MG ORAL DISSOLVE TABLET PO PRN (23:00)
[2022-12-02] MEDS ORDERED: LABETALOL 5 mg/ml 4 ML SINGLE DOSE SYRINGE IV PRN (00:15)
[2022-12-02] MEDS ORDERED: POTASSIUM CHLORIDE 20 MEQ TABLET PO SCH (06:00)
[2022-12-02] MEDS ORDERED: MAGNESIUM 1 GM/100 ML IVPB 100 ML IV SCH (06:00)
[2022-12-02] MEDS ORDERED: POTASSIUM CL 10MEQ/50ML IVPB 50 ML IV SCH (06:00)
[2022-12-02] MEDS ORDERED: POTASSIUM BICARB 20 MEQ effervescent TABLET PO SCH (06:00)
[2022-12-02 06:22] LABS: ALBUMIN 3.4 GM/DL (3.2-4.5)
[2022-12-02 06:23] LABS: POTASSIUM 4.3 MMOL/L (3.6-5.0)
[2022-12-02 06:24] LABS: CALCIUM 8.4 MG/DL (8.5-10.1)
[2022-12-02 06:25] LABS: TOTAL PROTEIN 6.2 GM/DL (6.4-8.2)
[2022-12-02 06:27] LABS: BILIRUBIN,TOTAL 0.2 MG/DL (0.1-1.0)
[2022-12-02 06:28] LABS: PHOSPHORUS 3.1 MG/DL (2.3-4.7)
[2022-12-02 06:29] LABS: CREATININE SERUM 0.97 MG/DL (0.60-1.30)
[2022-12-02] MEDS ORDERED: LEVOTHYROXINE 150 MCG TABLET PO SCH (06:30)
[2022-12-02] MEDS: inSUlin ASPART 1 UNIT/0.01 ML (PER UNIT) SC SCH ×2 (06:57→10:48)
[2022-12-02] MEDS ORDERED: LevETIRAcetam 500 MG TABLET PO SCH ×2 (09:00→21:00)
[2022-12-02] MEDS ORDERED: VENlafaxine 37.5 MG (EFFEXOR) TAB PO SCH (09:00)
[2022-12-02] MEDS ORDERED: ASPIRIN enteric coated 81MG TABLET PO SCH (09:00)
[2022-12-02] MEDS ORDERED: DIVALPROEX 250 MG DELAYED RELEASE TABLET PO SCH (09:00)
[2022-12-02] MEDS ORDERED: CLOPIDOGREL 75 MG TABLET PO SCH (09:00)
[2022-12-02] MEDS ORDERED: ENALAPRIL 2.5 MG TABLET PO SCH (09:00)
--- NOTE | 2022-12-02 09:15 | Tele-ICU Consult ---
History of Present Illness History of Present Illness Date Seen by Provider: Dec 02, 2022 Time Seen by Provider: 09:14 Date of Admission History of Present Illness (Tele-ICU Physician , consultation as per request of PCP Service provided via interactive audio and video telecommunications E-CARE system to a patient admitted to ICU bed in [facility]. Available chart/ vitals / labs / Images reviewed H&P is from ER notes Patient's information available about PMH, Shx, Fhx allergy reviewed inEMR. ROS as per chart and RN report Now in ICU, hemodynamically stable Video assessment done using teleICU camera, rest of exam as per RN Discussed with RN. Hospital course: (12/01) 72y/M admitted with hypoglycemia and minimally responnsive. HCT negative. . A/P hypoglycemia - BS stable since admission to ICU , will follow BS , start PO food , - DM meds as per PCP elev WBC - no clear sign of infection ( tx for PNA 08/2022 -? reactive , follow off abx Encephalopathy - with hypoglycemia - improved , ? baseline H/o sz dz - cont meds DM CAD, CHF h/o CVA Lines : periph , (Central Line Necessity Reviewed) [place]: OG: Nutrition: Analgesia: Anxiety/ delirium VTE Prophylaxis: ankush Stress Ulcer Prophylaxis: na Plans in collaboration with bedside consultants and IM MDs. Discussed with RN to reach out if any questions or concerns A total of _15 minutes of critical care time was devoted to this patient today, required to treat and/or prevent further deterioration of critical care condition ( as above ) . I am remotely monitoring this patient from another state. I am unable to do the bedside exam, and history/physical and pertinent information is taken from other notes in the computer and bedside staff. . Allergies and Home Medications Allergies Coded Allergies: acetaminophen (Verified Allergy, Intermediate, 10/26/17) Home Medications Albuterol Sulfate 2.5 Mg/3 Ml Vial.neb, 2.5 MG NEB UD PRN for SHORTNESS OF BREATH, (Reported) Cholecalciferol (Vitamin D3) 125 Mcg (5000 Unit) Capsule, 125 MCG PO DAILY, (Reported) Clonazepam 0.5 Mg Tablet, 0.5 MG PO 0800,1400,2000, (Reported) Clonidine HCl 0.2 Mg Tablet, 0.2 MG PO BID, (Reported) HOLD IF SBP <100 OR PULSE <60 Clopidogrel Bisulfate 75 Mg Tablet, 75 MG PO DAILY, (Reported) Divalproex Sodium 125 Mg Cap.sprink, 250 MG PO TID, (Reported) TAKES 2 (125MG) CAPS Docusate Sodium 100 Mg Capsule, 100 MG PO BID, (Reported) Doxycycline Hyclate 100 Mg Capsule, 100 MG PO 0900,2100, (Reported) FIRST DOSE 08-24-2022 #28/ DAY SUPPLY Dulaglutide 0.75 Mg/0.5 Ml Pen.injctr, 0.75 MG SC SUN, (Reported) Enalapril Maleate 2.5 Mg Tablet, 2.5 MG PO DAILY, (Reported) Ferrous Sulfate 325 Mg Tablet, 325 MG PO Q48H, (Reported) Gabapentin 300 Mg Capsule, 300 MG PO HS, (Reported) Glucagon HCl 1 Mg Vial, 1 MG IM UD PRN for HYPOGLYCEMIA, (Reported) GIVE NEEEDED FOR UNRESPONSIVE HYPOGLYCEMIA EVENT, IF REMAINS UNRESPONSIVE AFTER 15 MINUTES MAY GIVE ANOTHER DOSE Hydrocodone/Acetaminophen 7.5 Mg-325 Mg Tablet, 1 EA PO Q6H PRN for PAIN- MODERATE (5-7), (Reported) Icosapent Ethyl 1 Gm Capsule, 1 GM PO BID, (Reported) Insulin Aspart 100 Unit/Ml Susp, 7 UNIT SQ AC, (Reported) Insulin Detemir 100 Unit/Ml (3 Ml) Insuln.pen, 20 UNITS SC DAILY, (Reported) Lactobacillus Acidophilus/Pect 1 Each Capsule, 1 CAP PO QID, (Reported) Lansoprazole 15 Mg Capsule.dr, 15 MG PO DAILY, (Reported) Levetiracetam 500 Mg Tablet, 500 MG PO BID, (Reported) Levofloxacin 500 Mg Tablet, 500 MG PO DAILY, (Reported) START DATE 08-24-2022 #14 DAY SUPPLY Levothyroxine Sodium 150 Mcg Tablet, 150 MCG PO DAILY, (Reported) Mag Hydrox/Al Hydrox/Simeth 30 Ml Oral.susp, 30 ML PO Q4H PRN for INDIGESTION, (Reported) Magnesium Hydroxide 400 Mg/5 Ml Oral.susp, 30 ML PO DAILY PRN for CONSTIPATION- 1ST LINE, (Reported) Melatonin 3 Mg Tablet, 3 MG PO HS, (Reported) Memantine HCl 5 Mg Tablet, 5 MG PO HS, (Reported) Metformin HCl 500 Mg Tablet, 1,000 MG PO BID, (Reported) TAKES 2 (500MG) TABS Metoprolol Tartrate 50 Mg Tablet, 50 MG PO BID WITH MEALS, (Reported) HOLD IF BP <110/60 OR PULSE <60 Mirtazapine 15 Mg Tablet, 15 MG PO HS, (Reported) Multivitamin 1 Each Tablet, 1 EACH PO DAILY, (Reported) Olanzapine 5 Mg Tablet, 5 MG PO DAILY, (Reported) Polyethylene Glycol 3350 17 Gram Powd.pack, 17 GM PO DAILY, (Reported) Propylene Glycol 0.6 % Drops, 1 DROP OU BID, (Reported) Simvastatin 10 Mg Tablet, 10 MG PO HS, (Reported) Tamsulosin HCl 0.4 Mg Cap, 0.4 MG PO DAILY, (Reported) Venlafaxine HCl 75 Mg Tab, 75 MG PO DAILY, (Reported) Past Medical/Social/Family Hx Patient Social History Smoking Status: Unknown if Ever Smoked Substance use?: Unable to obtain Alcohol Use?: Unable to obtain Pt stated abuse/neglect: No Immunizations Up To Date First/Initial COVID19 Vaccinat: 04/27/20 Second COVID19 Vaccination Joaquin: 05/18/20 Tetanus Booster (TDap): Unknown Date of Pneumonia Vaccine: Jul 16, 2017 Current Status Advance Directives: Yes Advance Directive Location: Copy from prev record Primary Language: Barbadian Preferred Spoken Language: Barbadian Past Medical History Past Medical History 1. COPD 2. CAD s/p stent placement in the - previously followed by Dr. Buckley, not compliant with medications of follow up-severe multivessle -inoperable 3. Diabetes Mellitus Type 2 - insulin requiring; non-compliant w/ insulin 4. Diabetic Neuropathy 5. Chronic pancreatitis- history of hemorrhagic pancreatitis 6. Degenerative Disk Disease, Arthritis 7. Seizure history- secondary to previous CVA, methadone use and alcohol use 8. Carotid stenosis - moderate 9. Hx of TIA and CVA 10. Depression/Anxiety 11. Hypothyroidism 12. Diabetic Retinopathy 13. History of Pseudohyponatremia secondary severely elevated blood glucose 14. Tobaccoism 15. Esophageal Varices with portal hypertension and hx of enlarged spleen 16. ASOD- bilateral severe, evaluated at [place] 17. H/O respiratory failure with tracheostomy and reversal 18. History of Gangrene sp resection of toe 09-11-14 19. Illicit drug use- Methadone use, Alcohol use 20. Chronic fracture left femur pathologic appearing 21. Stomach thickening quesitonable for malignancy- GI was recommended outpatient PSH: 1. R Knee surgery x4 2. Back surgery - lumbar discectomy w/ vertebral fusion 3. Coronary Stent 4. cholecystectomy 5. Stent placement in pancreas with pseudocyst removal 6. Tracheostomy with removal 7. RT. 4th toe ray amputation- 09-11-13 Abdullahi Buckley 8. Cardiac Cath 12-26 Christin with inoperable multivessle coronary artery disease. Family Medical History Family Hx: SOCIAL HISTORY: -ETOH--HX OF ABUSE -DRUGS-HX OF METHADONE USE/ABUSE -SMOKES 2 PPD PAST SURGICAL HISTORY: -RIGHT CATARACT SURGERY 08/2020 -LEFT CATARACT SURGERY 06/2020 -RIGHT HIP FRACTURE 08/09/19--TRANSFERRED TO [place] -RIGHT GREAT TOE AND 3RD TOE AMPUTATION DUE TO OPEN FRACTURE OF 3RD TOE AND OSTEOMYELITIS 12/[address] ALICEA -AMPUTATIONS OF RIGHT 2ND AND 4TH TOES -AMPUTATIONS OF LEFT GREAT AND SECOND TOES -RIGHT KNEE SURGERY X 4 -BACK SURGERIES--DISCECTOMY/FUSIONS -CARDIAC CATH WITH STENT -CHOLECYSTECTOMY -STENT PLACEMENT IN PANCREAS WITH REMOVAL OF PSEUDOCYST -TRACHEOSTOMY WITH LATER REMOVAL -RIGHT 4TH TOE RAY AMPUTATION 09/11/13 DR. ABDULLAHI BUCKLEY -CARDIAC CATH 12/[address] BEARDEN--MULTI-VESSEL DISEASE/INOPERABLE -11/16/21--FRACTURE OF PROSTHETIC RIGHT HIP/TRANSFERRED TO [facility] AND HAD SURGICAL REPAIR AT THAT TIME. LONG HISTORY OF EXTREME NON-COMPLIANCE IN ALL ASPECTS OF CARE Review of Systems Constitutional: see HPI Focused Exam Height, Weight, BMI Height: 5'10.00" Weight: 180lbs. 0.0oz. [id number]; 26.04 BMI Method:Stated Exam Exam Patient acknowledged, consented, and participated in this virtual visit which was conducted using real time audio/video Vital Signs Date Time Temp Pulse Resp B/P (MAP) Pulse Ox O2 Delivery O2 Flow Rate FiO2 12/02/22 08:34 36.6 Room Air 12/02/22 08:00 80 163/89 (113) 100 Nasal Cannula 2.00 12/02/22 07:05 77 12/02/22 07:00 82 173/100 (124) 97 Nasal Cannula 2.00 12/02/22 06:15 80 151/113 (126) 87 Nasal Cannula 2.00 12/02/22 05:00 72 181/99 (126) 100 Nasal Cannula 2.00 12/02/22 04:00 99 Nasal Cannula 2.00 12/02/22 04:00 36.2 Nasal Cannula 2.00 12/02/22 04:00 66 186/105 (132) 100 Nasal Cannula 2.00 12/02/22 03:00 82 161/77 (105) 100 Nasal Cannula 2.00 12/02/22 02:00 59 141/72 (95) 100 Nasal Cannula 2.00 12/02/22 01:00 60 12/02/22 01:00 59 155/101 (119) 97 Nasal Cannula 2.00 12/02/22 00:00 98 Nasal Cannula 2.00 12/02/22 00:00 76 19 185/112 (136) 99 Nasal Cannula 2.00 12/01/22 23:15 85 21 186/115 (141) 99 Nasal Cannula 2.00 12/01/22 23:00 82 21 178/109 (135) 94 Nasal Cannula 2.00 12/01/22 22:45 75 37 163/104 (133) 97 Nasal Cannula 2.00 12/01/22 22:30 73 35 145/75 (108) 85 Nasal Cannula 2.00 12/01/22 22:25 65 12/01/22 22:24 64 156/87 (117) 95 Nasal Cannula 2.00 12/01/22 22:15 95 Nasal Cannula 2.00 12/01/22 22:06 74 22 159/81 99 Room Air 12/01/22 18:11 36.8 62 8 181/88 (119) 98 Room Air I & O 12/02/22 07:00 Intake Total 1105 ml Output Total 1050 ml Balance 55 ml Height & Weight Height: 5'10.00" Weight: 180lbs. 0.0oz. [id number]; 26.04 BMI Method:Stated General Appearance: WD/WN, Other (Nearly unresponsive) HEENT: PERRL/EOMI, Normal ENT Inspection Neck: Normal Inspection Respiratory: Lungs Clear, No Accessory Muscle Use, No Respiratory Distress, Other (Sonorous breathing with a few episodes of brief apnea) Cardiovascular: Regular Rate, Rhythm, No Edema Capillary Refill: Less Than 3 Seconds Extremity: Normal Inspection, No Pedal Edema Neurologic/Psychiatric: Other (Nearly unresponsive with extremely decreased level of alertness) Skin: Normal Color, Warm/Dry Results Lab Laboratory Tests 12/01/22 20:30 12/02/22 05:58 Assessment/Plan Assessment/Plan 1 LISA CARSON MD Dec 02, 2022 09:15
[2022-12-02 09:16] LABS: BASOPHILS # (AUTO) 0.1 10^3/uL (0.0-0.1); BASOPHILS % (AUTO) 1 % (0-10); EOSINOPHILS # (AUTO) 0.1 10^3/uL (0.0-0.3); EOSINOPHILS % (AUTO) 1 % (0-10); HEMATOCRIT 37 % (40-54); HEMOGLOBIN 12.1 g/dL (13.3-17.7); LYMPHOCYTES # (AUTO) 3.1 10^3/uL (1.0-4.0); LYMPHOCYTES % (AUTO) 24 % (12-44); MEAN CORPUSCULAR HEMOGLOBIN 30 pg (25-34); MEAN CORPUSCULAR HGB CONC 33 g/dL (32-36); MEAN CORPUSCULAR VOLUME 91 fL (80-99); MEAN PLATELET VOLUME 11.3 fL (9.0-12.2); MONOCYTES # (AUTO) 1.6 10^3/uL (0.0-1.0); MONOCYTES % (AUTO) 13 % (0-12); NEUTROPHILS # (AUTO) 7.7 10^3/uL (1.8-7.8); NEUTROPHILS % (AUTO) 61 % (42-75); PLATELET COUNT 194 10^3/uL (130-400); WHITE BLOOD COUNT 12.6 10^3/uL (4.3-11.0)
[2022-12-02] MEDS ORDERED: LACTULOSE SYRUP 10GM/15ML 30ML UDC PO PRN (10:00)
[2022-12-02] MEDS ORDERED: ANTACID SUSPENSION 30 ML UDC PO PRN ×2 (10:00→11:45)
[2022-12-02] MEDS ORDERED: diphenhydrAMINE INJ 50 MG/ML VIAL IVP PRN (10:00)
[2022-12-02] MEDS ORDERED: MILK OF MAGNESIA 400 MG/5 ML 30 ML UDC PO PRN ×2 (10:00→11:45)
[2022-12-02] MEDS ORDERED: ONDANSETRON INJECTION 4 MG/2 ML (SDV) IV PRN (10:00)
[2022-12-02] MEDS ORDERED: diphenhydrAMINE 25 MG TABLET PO PRN (10:00)
[2022-12-02] MEDS ORDERED: oxyCODONE IMMEDIATE RELEASE 5 MG TABLET PO PRN (10:00)
[2022-12-02] MEDS ORDERED: MELATONIN 3 MG TABLET PO PRN (10:00)
[2022-12-02] MEDS ORDERED: HYDROmorphone INJECTION 2 MG/ML VIAL IV PRN (10:00)
[2022-12-02] MEDS ORDERED: CALCIUM CARBONATE 500 MG CHEW TABLET PO PRN (10:00)
[2022-12-02] MEDS ORDERED: ONDANSETRON 4 MG ORAL DISSOLVE TABLET PO PRN (10:00)
[2022-12-02] MEDS ORDERED: BISACODYL 10 MG SUPPOSITORY PR PRN (10:00)
[2022-12-02 11:01] VITALS: BP 144/74
--- NOTE | 2022-12-02 11:07 | Physical Therapy Evaluation ---
PT Evaluation-General Medical Diagnosis Admission Date Dec 01, 2022 at 22:07 Medical Diagnosis: hypoglycemia Onset Date: Dec 01, 2022 Therapy Diagnosis Therapy Diagnosis: debility/weakness Height/Weight Height (Feet): 5 Height (Inches): 10.00 Weight (Pounds): 180 Weight (Ounces): 0.0 Precautions Precautions/Isolations: Fall Prevention, Standard Precautions, Pressure Ulcer Referral Physician: Natalia Reason for Referral: Evaluation/Treatment Medical History Pertinent Medical History: CAD, COPD, DM, Dementia, HTN, Hypothroidism, Neuropathy, PVD Current History EMS from [place] secondary to blood sugar 41/unresponsive Reviewed History: Yes Social History Home: Half-Way Prior Prior Level of Function SCALE: Activities may be completed with or without assistive devices. 0-Btizjpvgpz-klyghxb completes the activity by him/herself with no assistance from a helper. 5-Set-up or Clean-up Assistance-helper sets up or cleans up; patient completes activity. [place] assists only prior to or following the activity. 4-Supervision or Touching Assistance-helper provides verbal cues and/or touching/steadying and/or contact guard assistance as patient completes activity. Assistance may be provided throughout the activity or intermittently. 3-Partial/Moderate Assistance-helper does LESS THAN HALF the effort. [place] lifts, holds or supports trunk or limbs, but provides less than half the effort. 2-Substantial/Maximal Assistance-helper does MORE THAN HALF the effort. [place] lifts or holds trunk or limbs and provides more than half the effort. 6-Ztouqkvii-arrkgi does ALL the effort. Patient does none of the effort to complete the activity. Or, the assistance of 2 or more helpers is required for the patient to complete the activity. If activity was not attempted, code reason: 7-Patient Refused. 9-Not Applicable-not attempted and the patient did not perform the activity before the current illness, exacerbation or injury. 10-Not Attempted due to Environmental Limitations-(lack of equipment, weather restraints, etc.). 88-Not Attempted due to Medical Conditions or Safety Concerns. Bed Mobility: 2 Transfers (B,C,W/C): 2 Gait: 9 Stairs: 9 Wheelchair Mobility: 2 Indoor Mobility (Ambulation): Not [place] Stairs: Not [place]be Prior Devices Use: Manual wheelchair PT Evaluation-Current Subjective Patient agrees to PT. Objective Attachments: [place] Catheter ROM/Strength ROM Lower Extremities bilateral knee flexion and hip flexion contractures Strength Lower Extremities 3-/5 grossly bilateral LE all planes Integumentary/Posture Bowel Incontinence: Yes Bladder Incontinence: [place] Cath Neuromuscular (Tone, Coordination, Reflexes) severely diminished coordination Sensory Vision: Functional Hearing: Functional Transfers Lying to Sitting/Side of Bed(Q: 1 Sit to Stand (QC): 1 Chair/Dca-pw-Yndtz Xfer(QC): 1 Toilet Transfer (QC): 1 Gait Does the Patient Walk?: No and Walking Goal NOT indicated Balance Sitting Static: Fair Sitting Dynamic: Poor Standing Static: Poor Standing Dynamic: Poor Assessment/Needs Patient will be seen short term by skilled PT to address functional strength and mobility to improve current LOF. Patient has noted bilateral knee and hip flexion contractures. Rehab Potential: Poor PT Assisted Goals Assisted Goals PT Bulk Plant Operator Goals Time Frame: Dec 14, 2022 Roll Left & Right (QC): 2 Sit to Lying (QC): 2 Lying-Sitting on Side/Bed(QC): 2 Sit to Stand (QC): 2 Chair/Gvw-af-Ummvb Xfer(QC): 2 Toilet Transfer (QC): 2 PT Plan Problem List Problem List: Activity Tolerance, Functional Strength, Safety, Balance, Transfer, Bed Mobility, ROM Treatment/Plan Treatment Plan: Continue Plan of Care Treatment Plan: Bed Mobility, Education, Functional Activity Sandy, Functional Strength, Safety, Therapeutic Exercise, Transfers Treatment Duration: Dec 14, 2022 Frequency: 5 times per week Estimated Hrs Per Day: .25 hour per day Patient and/or Family Agrees t: Yes Time Time In: 1035 Time Out: 1055 DATE: Dec 02, 2022 Total Billed Treatment Time: 20 Total Billed Treatment 1 visit [facility] 20 min FLORENCE WARD PT Dec 02, 2022 11:07
[2022-12-02] MEDS ORDERED: INSU100I88 SQ ×2 (11:19→11:47)
[2022-12-02] MEDS ORDERED: ASPI-999 PO (11:19)
[2022-12-02] MEDS ORDERED: VNL37.5T PO (11:19)
[2022-12-02] MEDS ORDERED: DULA1.5P2 SQ (11:19)
[2022-12-02] MEDS ORDERED: INSU100I14 SQ ×2 (11:19→11:47)
[2022-12-02] MEDS ORDERED: FINA5TAB6 PO (11:19)
[2022-12-02] MEDS ORDERED: HYDROcodone/ACETAMINOPHEN 7.5 MG/325 MG TABLET PO PRN (11:45)
[2022-12-02] MEDS ORDERED: HYPOCHLOROUS ACID/NaCl WOUND SOLN 250 ML IR SCH (11:45)
[2022-12-02] MEDS ORDERED: RT-ALBUTEROL SULF 2.5 MG/3 ML PRE-MIX VIAL IH PRN (11:45)
--- NOTE | 2022-12-02 11:47 | Wound Care Assessment ---
Wound Care Assessment Date Seen by Provider: Dec 02, 2022 Time Seen by Provider: 11:41 Chief Complaint L. heel ulcer (chronic) HPI This pleasant 72 year old gentleman is well known to my outpatient clinic. He has a long h/o severe PAD with L. common iliac stenting in September per Dr. Hassan with slow improvements to wounds following. He has a long h/o vascular disease with significant vascular dementia as well. He was found with severe hypoglycemia and was subsequently admitted. He is awake and alert for us on exam today and eating lunch. His outpatient FSBS have been averaging in the 200's and he is on insulin therapy. His wound healing has also been complicated by: PEM, anemia, CAD, COPD and continued 1ppd smoking. Last outpatient wound measurements on 11-18-22 were: 3.3x4.0x0.2cm. We have been dressing with HFB and BFD qod (will resume this once discharged). Past Medical History: Admits Diabetes Type II, Admits Heart Disease, Admits Peripheral Artery Disease PEM, Vascular dementia, CAD, COPD, tobaccoism, Anemia Smoking Status: Current Everyday Smoker (1ppd) Recreational Drug Use: No Alcohol Use: Denies Use Review of Systems General: Other (Appears older than age) Neurological: Weakness Other systems Numerous amputations to digits Exam Vital Signs Date Time Temp Pulse Resp B/P (MAP) Pulse Ox O2 Delivery O2 Flow Rate FiO2 12/02/22 11:24 36.7 12/02/22 11:01 82 95 12/02/22 11:00 174/87 (116) Room Air 12/02/22 08:00 2.00 12/02/22 00:00 19 Capillary Refill : Less Than 3 Seconds General Appearance: WD/WN, no apparent distress HEENT: other (mild [place]) Neck: full range of motion Cardiovascular: no edema Respiratory: no respiratory distress, no accessory muscle use Extremities: non-tender Neurologic/Psychiatric: alert, normal mood/affect, other (vascular dementia. Poor historian) Skin: normal color, warm/dry Wound assessment: 3.3x3.0x0.3cm. The epithelialization is small. There is no tunneling or undermining. Drainage is large and serosanguinous. Granulation is small and pink. Necrotic is large and slough. Margins with epibole Results Laboratory Tests 12/01/22 18:26: Glucometer 160H 12/01/22 18:57: Glucometer 151H 12/01/22 20:02: Glucometer 92 12/01/22 20:30: White Blood Count 11.7H, Red Blood Count 3.81L, Hemoglobin 11.5L, Hematocrit 35L , Mean Corpuscular Volume 92, Mean Corpuscular Hemoglobin 30, Mean Corpuscular Hemoglobin Concent 33, Red Cell Distribution Width 13.7, Platelet Count 193, Mean Platelet Volume 11.1, Immature Granulocyte % (Auto) 0, Neutrophils (%) (Auto) 74, Lymphocytes (%) (Auto) 18, Monocytes (%) (Auto) 7, Eosinophils (%) (Auto) 0, Basophils (%) (Auto) 1, Neutrophils # (Auto) 8.7H, Lymphocytes # (Auto) 2.1, Monocytes # (Auto) 0.8, Eosinophils # (Auto) 0.1, Basophils # (Auto) 0.1, Immature Granulocyte # (Auto) 0.0, Sodium Level 140, Potassium Level 4.2, Chloride Level 105, Carbon Dioxide Level 24, Anion Gap 11, Blood Urea Nitrogen 24H, Creatinine 1.11, Estimat Glomerular Filtration Rate 71, BUN/Creatinine Ratio 22, Glucose Level 83, Calcium Level 8.7, Corrected Calcium 9.0, Magnesium Level 1.5L, Total Bilirubin 0.2, Aspartate Amino Transf (AST/SGOT) 18, Alanine Aminotransferase (ALT/SGPT) 11, Alkaline Phosphatase 97, C-Reactive Protein High Sensitivity 3.04H, Total Protein 6.4, Albumin 3.6, Thyroid Stimulating Hormone (TSH) 12.58H, Free Thyroxine 0.70, Valproic Acid (Depakene) Level 40.8L 12/01/22 20:55: Glucometer 76 12/01/22 21:19: Urine Color YELLOW, Urine Clarity CLEAR, Urine pH 6.0, Urine Specific Schroeder 1.025H, Urine Protein 3+H, Urine Glucose (UA) NEGATIVE, Urine Ketones TRACEH, Urine Nitrite NEGATIVE, Urine Bilirubin NEGATIVE, Urine Urobilinogen 0.2, Urine Leukocyte Esterase NEGATIVE, Urine RBC (Auto) NEGATIVE, Urine RBC 2-5H, Urine WBC 5-10H, Urine Squamous Epithelial Cells 2-5, Urine Crystals PRESENTH, Urine Amorphous Sediment FEW NELSON URATESH, Urine Bacteria TRACE, Urine Casts PRESENT, Urine Hyaline Casts 10-25H, Urine Mucus SMALLH, Urine Culture Indicated NO 12/01/22 21:44: Glucometer 108 12/01/22 23:16: Glucometer 99 12/02/22 03:02: Glucometer 129H 12/02/22 04:38: Glucometer 139H 12/02/22 05:58: Sodium Level 139, Potassium Level 4.3, Chloride Level 106, Carbon Dioxide Level 21, Anion Gap 12, Blood Urea Nitrogen 19H, Creatinine 0.97, Estimat Glomerular Filtration Rate 84, BUN/Creatinine Ratio 20, Glucose Level 114H, Calcium Level 8.4L, Corrected Calcium 8.9, Phosphorus Level 3.1, Total Bilirubin 0.2, Aspartate Amino Transf (AST/SGOT) 22, Alanine Aminotransferase (ALT/SGPT) 13, Alkaline Phosphatase 96, Total Protein 6.2L, Albumin 3.4 12/02/22 06:14: Glucometer 208H 12/02/22 08:33: Glucometer 105 12/02/22 09:05: White Blood Count 12.6H, Red Blood Count 4.00L, Hemoglobin 12.1L, Hematocrit 37L , Mean Corpuscular Volume 91, Mean Corpuscular Hemoglobin 30, Mean Corpuscular Hemoglobin Concent 33, Red Cell Distribution Width 13.6, Platelet Count 194, Mean Platelet Volume 11.3, Immature Granulocyte % (Auto) 1, Neutrophils (%) (Aut o) 61, Lymphocytes (%) (Auto) 24, Monocytes (%) (Auto) 13H, Eosinophils (%) (Auto) 1, Basophils (%) (Auto) 1, Neutrophils # (Auto) 7.7, Lymphocytes # (Auto) 3.1, Monocytes # (Auto) 1.6H, Eosinophils # (Auto) 0.1, Basophils # (Auto) 0.1, Immature Granulocyte # (Auto) 0.1 12/02/22 10:47: Glucometer 70 Assessment/Plan/Dx Assessment: 1. WG2 DFU L. heel 2. Dm2 3. PAD with recent intervention 4. Tobaccoism 5. Vascular dementia 6. PEM-moderate 7. Hypoglycemia (resolved) Plan: 1. Cleanse daily with vashe. Apply silver alginate hydrofiber to wound bed and secure with BFD. Change daily. [place] any stable eschars with betadine bid and open to air 2. Defer to primary team 3. Defer to primary team 4. Patient has declined cessation on many occasions in past 5. Defer to primary team 6. Defer to primary team 7. Defer to primary team SHAUN CLAROS MD Dec 02, 2022 11:47
--- NOTE | 2022-12-02 11:53 | Short Stay Summary-Hospitalist ---
ROLF HEATH 12/02/22 1153: History of Present Illness HPI/Chief Complaint hypoglycemia Source: retirement records Exam Limitations: no limitations Date Seen 12/02/22 Time Seen by a Provider: 09:40 Attending Physician Parul Muller PCP Admitting Physician: Jasper Bradshaw MD Attending Physician: Jenelle Kat DO Referring Physician Date of Admission Dec 01, 2022 at 22:07 Home Medications & Allergies Home Medications Reviewed patient Home Medication Reconciliation performed by pharmacy medication reconciliations vending technician and/or nursing. Patients Allergies have been reviewed. Allergies Allergies Coded Allergies acetaminophen (Verified Allergy, Intermediate, 10/26/17) Past Medical/Social/Family Hx Patient Social History Marrital Status: Number of Children: 2 Employed/Student: retired Tobacco Use?: Yes Tobacco type used: Cigarettes Smoking Status: Current Everyday Smoker Smokeless Tobacco Frequency: Current Everyday User Use of E-Cig and/or Vaping dev: No Substance use?: No Alcohol Use?: Yes Alcohol Frequency: Rarely Pt stated abuse/neglect: No Immunizations Up To Date First/Initial COVID19 Vaccinat: 04/27/20 Second COVID19 Vaccination Joaquin: 05/18/20 Tetanus Booster (TDap): Unknown Date of Pneumonia Vaccine: Jul 16, 2017 Current Status Advance Directives: Yes Advance Directive Location: Copy from prev record Primary Language: [place] Preferred Spoken Language: [place]se Past Medical History Past Medical History 1. COPD 2. CAD s/p stent placement in the - previously followed by Dr. Buckley, not compliant with medications of follow up-severe multivessle -inoperable 3. Diabetes Mellitus Type 2 - insulin requiring; non-compliant w/ insulin 5. Peripheral vascular disease 6. Hypertension 7. Dementia 4. Diabetic Neuropathy 5. Chronic pancreatitis- history of hemorrhagic pancreatitis 6. Degenerative Disk Disease, Arthritis 7. Seizure history- secondary to previous CVA, methadone use and alcohol use 8. Carotid stenosis - moderate 9. Hx of TIA and CVA 10. Depression/Anxiety 11. Hypothyroidism 12. Diabetic Retinopathy 13. History of Pseudohyponatremia secondary severely elevated blood glucose 14. Tobaccoism 15. Esophageal Varices with portal hypertension and hx of enlarged spleen 16. ASOD- bilateral severe, evaluated at [facility] 17. H/O respiratory failure with tracheostomy and reversal 18. History of Gangrene sp resection of toe 09-11-13 19. Illicit drug use- Methadone use, Alcohol use 20. Chronic fracture left femur pathologic appearing 21. Stomach thickening quesitonable for malignancy- GI was recommended outpatient PSH: 1. R Knee surgery x4 2. Back surgery - lumbar discectomy w/ vertebral fusion 3. Coronary Stent 4. cholecystectomy 5. Stent placement in pancreas with pseudocyst removal 6. Tracheostomy with removal 7. RT. 4th toe ray amputation- 09-11-13 Abdullahi Buckley 8. Cardiac Cath 12-26 Christin with inoperable multivessle coronary artery disease. Family Medical History Family Hx: SOCIAL HISTORY: -ETOH--HX OF ABUSE -DRUGS-HX OF METHADONE USE/ABUSE -SMOKES 2 PPD PAST SURGICAL HISTORY: -RIGHT CATARACT SURGERY 08/2020 -LEFT CATARACT SURGERY 06/2020 -RIGHT HIP FRACTURE 08/09/19--TRANSFERRED TO [place] -RIGHT GREAT TOE AND 3RD TOE AMPUTATION DUE TO OPEN FRACTURE OF 3RD TOE AND OSTEOMYELITIS 12/[address] ALICEA -AMPUTATIONS OF RIGHT 2ND AND 4TH TOES -AMPUTATIONS OF LEFT GREAT AND SECOND TOES -RIGHT KNEE SURGERY X 4 -BACK SURGERIES--DISCECTOMY/FUSIONS -CARDIAC CATH WITH STENT -CHOLECYSTECTOMY -STENT PLACEMENT IN PANCREAS WITH REMOVAL OF PSEUDOCYST -TRACHEOSTOMY WITH LATER REMOVAL -RIGHT 4TH TOE RAY AMPUTATION 09/11/13 DR. ABDULLAHI BUCKLEY -CARDIAC CATH 12/[address] BEARDEN--MULTI-VESSEL DISEASE/INOPERABLE -11/16/21--FRACTURE OF PROSTHETIC RIGHT HIP/TRANSFERRED TO [facility] AND HAD SURGICAL REPAIR AT THAT TIME. LONG HISTORY OF EXTREME NON-COMPLIANCE IN ALL ASPECTS OF CARE Review of Systems Constitutional: no symptoms reported, see HPI; No dizziness, No weakness EENTM: see HPI Respiratory: no symptoms reported Cardiovascular: no symptoms reported All Other Systems Reviewed Negative Unless Noted: Yes Physical Exam Physical Exam Vital Signs Vital Signs - First Documented 12/01/22 12/01/22 18:11 22:15 Temp 36.8 Pulse 62 Resp 8 B/P (MAP) 181/88 (119) Pulse Ox 98 O2 Delivery Room Air O2 Flow Rate 2.00 Capillary Refill : Less Than 3 Seconds Height, Weight, BMI Height: 5'10.00" Weight: 180lbs. 0.0oz. [id number]; 26.04 BMI Method:Stated General Appearance: No Apparent Distress, WD/WN, Other (Nearly unresponsive) Neck: Normal Inspection Respiratory: Lungs Clear, No Accessory Muscle Use, No Respiratory Distress Cardiovascular: Regular Rate, Rhythm, No Edema Gastrointestinal: No Distended Neurologic/Psychiatric: Other (Nearly unresponsive with extremely decreased level of alertness) Skin: Normal Color, Warm/Dry Results Results/Procedures Labs Laboratory Tests 12/01/22 20:30 12/02/22 05:58 12/02/22 09:05 Patient resulted labs reviewed. Short Stay Diagnosis Discharge Diagnosis-Short Stay Admission Diagnosis - Hypoglycemia > 41 on arrival to ED > 1mg IM glucagon and 1 amp D50 via IO given in ED > glucose 114 this morning Final Discharge Diagnosis Hypoglycemia - resolved Conclusion Plan -Hypoglycemia > Move out of ICU to 4th floor > Continue to monitor BG > Suggest outpatient lowering of daily insulin dosing JENELLE KAT DO 12/03/22 0452: History of Present Illness HPI/Chief Complaint CC: Hypoglycemia secondary to insulin HPI: This is a 72yo[place] patient of [facility] who has a h/o DM who presented to the ER with low sugar requiring close monitoring overnight until insulin was metabolized and currently he is doing well. Dementia precludes details. Source: patient Exam Limitations: clinical condition Supervisory-Addendum Brief Verification & Attestation Participated in pt care: history, MDM, physical Personally performed: exam, history, MDM, supervision of care Care discussed with: Medical Student Procedures: n/a Results interpretation: Verified all documentation Verification and Attestation of Medical Student E/M Service A medical student performed and documented this service in my presence. I reviewed and verified all information documented by the medical student and made modifications to such information, when appropriate. I personally performed the physical exam and medical decision making. Jenelle Kat, Dec 03, 2022,04:50 ROLF HEATH Dec 02, 2022 11:53 JENELLE KAT DO Dec 03, 2022 04:52
[2022-12-02] MEDS ORDERED: FERROUS SULFATE 325 MG (IRON) TABLET PO SCH (12:00)
[2022-12-02] MEDS ORDERED: LACTOBACILLUS ACIDOPHILUS (PROBIOTIC) CAPSULE PO SCH (13:00)
[2022-12-02] MEDS ORDERED: clonazePAM 0.5 MG TABLET PO SCH (14:00)
[2022-12-02] MEDS ORDERED: metFORMIN 500 MG TABLET PO SCH (18:00)
[2022-12-02] MEDS ORDERED: DIVALPROEX 125 MG PO SCH (18:00)
[2022-12-02] MEDS ORDERED: meTOprolol TARTRATE (IR) 50 MG TABLET PO SCH (18:00)
[2022-12-02] MEDS ORDERED: MELATONIN 3 MG TABLET PO SCH (21:00)
[2022-12-02] MEDS ORDERED: ICOSAPENT ETHYL 1 GM PO SCH (21:00)
[2022-12-02] MEDS ORDERED: SENNOSIDES 8.6 MG (SENOKOT) TAB PO SCH (21:00)
[2022-12-02] MEDS ORDERED: GABAPENTIN 300 MG CAPSULE PO SCH (21:00)
[2022-12-02] MEDS ORDERED: DOCUSATE SODIUM 100 MG CAPSULE PO SCH ×2 (21:00)
[2022-12-02] MEDS ORDERED: MEMANTINE 5 MG TABLET PO SCH (21:00)
[2022-12-02] MEDS ORDERED: OMEGA 3 (FISH OIL) 1000 MG CAP PO SCH (21:00)
[2022-12-03] MEDS ORDERED: TAMSULOSIN 0.4 MG (FLOMAX) CAP PO SCH (09:00)
[2022-12-03] MEDS ORDERED: FINASTERIDE 5 MG TABLET PO SCH (09:00)
[2022-12-03] MEDS ORDERED: ENALAPRIL 2.5 MG TABLET PO SCH (09:00)
[2022-12-03] MEDS ORDERED: ASPIRIN 81 MG CHEWABLE TABLET PO SCH (09:00)
[2022-12-03] MEDS ORDERED: CLOPIDOGREL 75 MG TABLET PO SCH (09:00)
[2022-12-03] MEDS ORDERED: LEVOTHYROXINE 150 MCG TABLET PO SCH (09:00)
[2022-12-03] MEDS ORDERED: VENlafaxine 37.5 MG (EFFEXOR) TAB PO SCH (09:00)
== END 2022-12-02 14:10 | DRG 638 ==
LOC: EDUNIT# 18:08 → ER 18:10 → ICU 22:07
PROVIDERS: ADMIT Internal Medicine; ATTEND Internal Medicine
DX: E11.649 Type 2 diabetes mellitus with hypoglycemia without coma (principal); E44.0 Moderate protein-calorie malnutrition; G93.49 Other encephalopathy; F17.210 Nicotine dependence, cigarettes, uncomplicated; J44.9 Chronic obstructive pulmonary disease, unspecified; I25.10 Atherosclerotic heart disease of native coronary artery without angina pectoris; T38.3X5A Adverse effect of insulin and oral hypoglycemic [antidiabetic] drugs, initial encounter; Z95.5 Presence of coronary angioplasty implant and graft; E11.51 Type 2 diabetes mellitus with diabetic peripheral angiopathy without gangrene; I10 Essential (primary) hypertension; E11.40 Type 2 diabetes mellitus with diabetic neuropathy, unspecified; E03.9 Hypothyroidism, unspecified; E11.319 Type 2 diabetes mellitus with unspecified diabetic retinopathy without macular edema; Z89.421 Acquired absence of other right toe(s); F01.50 Vascular dementia, unspecified severity, without behavioral disturbance, psychotic disturbance, mood disturbance, and anxiety; Z79.4 Long term (current) use of insulin; Z79.84 Long term (current) use of oral hypoglycemic drugs; Z79.899 Other long term (current) drug therapy; Z68.26 Body mass index [BMI] 26.0-26.9, adult
CPT/HCPCS: 36415; 36680; 51702; 70450; 80053; 80164; 81000; 82947; 83735; 84100; 84439; 84443; 85025; 86141; 87081

== ENCOUNTER 2022-12-04 13:33 | Emergency (ER) | payer MEDICARE, MEDICAID ==
[~2022-12-04] VITALS: Ht 177.8 cm; Wt 81.6 kg
[~2022-12-04 13:33] MED LIST changes: +ASPI-999 PO; +DULA1.5P2 SQ; +FINA5TAB6 PO; +INSU100I88 SQ; +VNL37.5T PO
[2022-12-04] MEDS ORDERED: cefTRIAXone IV/IM 1,000 MG in NS (IVPB) 50 ML 50 ML IV ONE (13:45)
[2022-12-04] MEDS ORDERED: RT-Ipratropium/Albuterol NEB 3 ML VIAL INH ONE (13:45)
[2022-12-04] MEDS ORDERED: RT-Ipratropium/Albuterol NEB 3 ML VIAL IH ONE (13:45)
[2022-12-04] MEDS ORDERED: dexAMETHasone INJ 10 MG/ML 1 ML VIAL IV ONE (13:45)
--- NOTE | 2022-12-04 13:45 | ED Respiratory ---
General Chief Complaint: Respiratory Problems Stated Complaint: SOB Nursing Triage Note: arrives from [facility] to room 5 via ems. report states sean has become increasingly short of breath today and unable to maintain his saturations on room air while at the group home. it is also reported the group home has trouble "keeping his blood sugars" wnl per ems. Source: patient, EMS, group home records, old records Exam Limitations: clinical condition History of Present Illness Date Seen by Provider: Dec 04, 2022 Time Seen by Provider: 13:34 Initial Comments 72-year-old male with past medical history of COPD, CAD, PVD, diabetes, dementia coming in via EMS from the group home due to shortness of breath. Reportedly started feeling short of breath earlier today and reportedly his oxygen saturation was 60% on room air. They placed him on oxygen and gave him an albuterol treatment. On EMS arrival, they transitioned him off of oxygen and he was 98% on room air. He has not had any fever, possibly a mild cough, no vomiting, chest pain, abdominal pain, new weakness or numbness, or any other concerns. Allergies and Home Medications Allergies Coded Allergies: acetaminophen (Verified Allergy, Intermediate, 10/26/17) Patient Home Medication List Home Medication List Reviewed: Yes Albuterol Sulfate (Albuterol Sulfate) 2.5 Mg/3 Ml Vial.neb, 2.5 MG NEB UD PRN for SHORTNESS OF BREATH, (Reported) Entered as Reported by: AMMY PALAFOX on 12/08/18 1448 Aspirin (Aspirin) 81 Mg Tab.chew, 81 MG PO DAILY, (Reported) Entered as Reported by: MURTAZA CRUM on 12/02/22 1119 Cholecalciferol (Vitamin D3) (Vitamin D3) 125 Mcg (5000 Unit) Capsule, 125 MCG PO DAILY, (Reported) Entered as Reported by: MRUTAZA CRUM on 12/21/19 1616 Clonazepam (Clonazepam) 0.5 Mg Tablet, 0.5 MG PO 0800,1400,1999, (Reported) Entered as Reported by: MURTAZA CRUM on 11/27/21 1456 Clonidine HCl (Clonidine HCl) 0.2 Mg Tablet, 0.2 MG PO BID, (Reported) Entered as Reported by: SAIMA HAMPTON on 07/04/20 1115 Clopidogrel Bisulfate (Plavix) 75 Mg Tablet, 75 MG PO DAILY, (Reported) Entered as Reported by: AMMY PALAFOX on 03/05/17 0918 Divalproex Sodium (Divalproex Sodium) 125 Mg Cap.sprink, 250 MG PO 0600,1000,1800, (Reported) Entered as Reported by: AMMY PALAFOX on 03/05/17 0918 Docusate Sodium (Colace) 100 Mg Capsule, 100 MG PO BID, (Reported) Entered as Reported by: MURTAZA CRUM on 12/21/19 1616 Doxycycline Hyclate (Doxycycline Hyclate) 100 Mg Tablet, 100 MG PO BID Prescribed by: DEANA AHUMADA on 12/04/22 1441 Enalapril Maleate (Enalapril Maleate) 2.5 Mg Tablet, 2.5 MG PO DAILY, (Reported) Entered as Reported by: AMMY PALAFOX on 03/05/17 09 Ferrous Sulfate (Ferrous Sulfate) 325 Mg Tablet, 325 MG PO Q48H, (Reported) Entered as Reported by: MURTAZA CRUM on 12/21/19 1616 Finasteride (Finasteride) 5 Mg Tablet, 5 MG PO DAILY, (Reported) Entered as Reported by: MURTAZA CRUM on 12/02/22 1119 Gabapentin (Neurontin) 300 Mg Capsule, 300 MG PO HS, (Reported) Entered as Reported by: MURTAZA CRUM on 12/21/19 1616 Glucagon HCl (Glucagon Emergency Kit) 1 Mg Vial, 1 MG IM UD PRN for HYPOGLYCEMIA, (Reported) Entered as Reported by: MURTAZA CRUM on 11/27/21 1456 Hydrocodone/Acetaminophen (Hydrocodone-Acetamin 7.5-325) 7.5 Mg-325 Mg Tablet, 1 EA PO Q6H PRN for PAIN-MODERATE (5-7), (Reported) Entered as Reported by: MURTAZA CRUM on 09/02/22 1322 Icosapent Ethyl (Vascepa) 1 Gm Capsule, 1 GM PO BID, (Reported) Entered as Reported by: AMMY PALAFOX on 12/08/18 1448 Insulin Aspart (Novolog Flexpen) 100 Unit/Ml (3 Ml) Solution, 2 UNITS SQ AC Prescribed by: ELIA KAT on 12/02/22 1147 Insulin Detemir (Levemir Flexpen) 100 Unit/Ml (3 Ml) Insuln.pen, 8 UNITS SQ DAILY Prescribed by: ELIA KAT on 12/02/22 1147 Lactobacillus Acidophilus/Pect (Acidophilus-Pectin Capsule) 1 Each Capsule, 1 CAP PO QID, (Reported) Entered as Reported by: AMMY PALAFOX on 12/08/18 1448 Lansoprazole (Lansoprazole) 15 Mg Capsule.dr, 15 MG PO DAILY, (Reported) Entered as Reported by: MURTAZA CRUM on 11/27/21 1456 Levetiracetam (Levetiracetam) 500 Mg Tablet, 500 MG PO BID, (Reported) Entered as Reported by: AMMY PALAFOX on 03/05/17 09 Levothyroxine Sodium (Levothyroxine Sodium) 150 Mcg Tablet, 150 MCG PO DAILY, (Reported) Entered as Reported by: MURTAZA CRUM on 09/02/22 1322 Mag Hydrox/Al Hydrox/Simeth (Mylanta Suspension) 30 Ml Oral.susp, 30 ML PO Q4H PRN for INDIGESTION, (Reported) Entered as Reported by: AMMY PALAFOX on 03/05/17 0918 Magnesium Hydroxide (Milk of Magnesia) 400 Mg/5 Ml Oral.susp, 30 ML PO DAILY PRN for CONSTIPATION-1ST LINE, (Reported) Entered as Reported by: AMMY PALAFOX on 02/25/18 0933 Melatonin (Melatonin) 3 Mg Tablet, 3 MG PO HS, (Reported) Entered as Reported by: AMMY PALAFOX on 03/05/17 0918 Memantine HCl (Memantine HCl) 5 Mg Tablet, 5 MG PO HS, (Reported) Entered as Reported by: MURTAZA CRUM on 11/27/21 1456 Metoprolol Tartrate (Metoprolol Tartrate) 50 Mg Tablet, 50 MG PO BID WITH MEALS, (Reported) Entered as Reported by: SAIMA HAMPTON on 07/04/20 111 Mirtazapine (Mirtazapine) 15 Mg Tablet, 15 MG PO HS, (Reported) Entered as Reported by: SAIMA HAMPTON on 07/04/20 1115 Multivitamin (Multivitamin) 1 Each Tablet, 1 EACH PO DAILY, (Reported) Entered as Reported by: MURTAZA CRUM on 11/27/21 1456 Olanzapine (Olanzapine) 5 Mg Tablet, 5 MG PO BID, (Reported) Entered as Reported by: IVONNE COOPER on 09/01/22 0856 Polyethylene Glycol 3350 (Miralax) 17 Gram Powd.pack, 17 GM PO DAILY, (Reported) Entered as Reported by: IVONNE COOPER on 09/01/22 0856 Propylene Glycol (Systane Complete) 0.6 % Drops, 1 DROP OU BID, (Reported) Entered as Reported by: MURTAZA CRUM on 11/27/21 1456 Simvastatin (Simvastatin) 10 Mg Tablet, 10 MG PO HS, (Reported) Entered as Reported by: MURTAZA CRUM on 11/27/21 1456 Tamsulosin HCl (Flomax) 0.4 Mg Cap, 0.4 MG PO DAILY, (Reported) Entered as Reported by: AMMY PALAFOX on 12/08/18 1448 Venlafaxine HCl (Venlafaxine HCl) 37.5 Mg Tab, 37.5 MG PO DAILY, (Reported) Entered as Reported by: MURTAZA CRUM on 12/02/22 1119 Discontinued Medications Doxycycline Hyclate (Doxycycline Hyclate) 100 Mg Capsule, 100 MG PO 0900,2100, (Reported) Discontinued Reason: No Longer Taking Entered as Reported by: MURTAZA CRUM on 09/02/22 1322 Dulaglutide (Trulicity) 0.75 Mg/0.5 Ml Pen.injctr, 0.75 MG SC SUN, (Reported) Discontinued Reason: No Longer Taking Entered as Reported by: AMMY PALAFOX on 12/08/18 1448 Dulaglutide (Trulicity) 1.5 Mg/0.5 Ml Pen.injctr, 1.5 MG SQ SUN, (Reported) Entered as Reported by: MURTAZA CRUM on 12/02/22 1119 Insulin Aspart (Novolog) 100 Unit/Ml Susp, 7 UNIT SQ AC, (Reported) Discontinued Reason: Duplicate Order Entered as Reported by: SAIMA HAMPTON on 04/29/19 0816 Insulin Detemir (Levemir Flextouch) 100 Unit/Ml (3 Ml) Insuln.pen, 20 UNITS SC DAILY, (Reported) Discontinued Reason: No Longer Taking Entered as Reported by: MURTAZA CRUM on 12/21/19 1616 Levofloxacin (Levofloxacin) 500 Mg Tablet, 500 MG PO DAILY, (Reported) Discontinued Reason: No Longer Taking Entered as Reported by: MURTAZA CRUM on 09/02/22 1322 Metformin HCl (Metformin HCl) 500 Mg Tablet, 1,000 MG PO BID, (Reported) Entered as Reported by: MURTAZA CRUM on 11/27/21 1456 Venlafaxine HCl (Venlafaxine HCl) 75 Mg Tab, 75 MG PO DAILY, (Reported) Discontinued Reason: No Longer Taking Entered as Reported by: MURTAZA CRUM on 09/02/22 1322 Review of Systems Review of Systems Constitutional: No fever EENTM: no symptoms reported Respiratory: see HPI Cardiovascular: no symptoms reported Gastrointestinal: no symptoms reported Genitourinary: no symptoms reported Musculoskeletal: no symptoms reported Skin: no symptoms reported Past Fgtpuju-Fnkkfo-Attdkb Hx Patient Social History Tobacco Use?: No Use of E-Cig and/or Vaping dev: No Substance use?: No Alcohol Use?: No Pt feels they are or have been: No Immunizations Up To Date Tetanus Booster (TDap): Unknown PED Vaccines UTD: Yes First/Initial COVID19 Vaccinat: 04/27/20 Second COVID19 Vaccination Joaquin: 05/18/20 Third COVID19 Vaccination Date: 03/14/21 Seasonal Allergies Seasonal Allergies: No Past Medical History Surgery/Hospitalization HX: HTN,DEMENTIA,DEPRESSION, ANXIETY, DM 2 NOW INSULIN DEPENDENT, SEIZURES, BPH, COPD, PVD, ANEMIA ,ARTHRITIS RIGHT FEMUR FX, RIGHT HIP REPLACEMENT Surgeries: Yes (KNEE SX; BACK-DISCECTOMY/FUSIONS;TOE AMPUTATION;L EYE CATARACT 09/01/20) Amputation, Cardiac, Coronary Stent, Eye Surgery, Orthopedic, Tracheostomy Respiratory: Yes (HX OF RESP. FAILURE WITH TRACH/LATER REMOVED) COPD Currently Using CPAP: No Currently Using BIPAP: No Cardiac: Yes (STENT IN ; SEVERE MULTIVESSEL CAD--INOPERABLE) Angina, Coronary Artery Disease, High Cholesterol, Hypertension, Peripheral Vascular Neurological: Yes (VASCULAR DEMENTIA W/BEHAVIOR DISTURBANCE;PSEUDOBULBAR AFFECT;CVA R FRONTAL) Dementia, Neuropathy, Seizure Disorder, Stroke Reproductive Disorders: No Genitourinary: No Gastrointestinal: Yes (CHRONIC PANCREATITIS/HX OF HEMORRHAGIC PANCREATITIS;SPLENOMEGALY) Gastroesophageal Reflux, Pancreatitis, Esophageal Varices Musculoskeletal: Yes ( CHRONIC PAIN;MULTIPLE TOE AMPUTATIONS;OSTEOMYELITIS;R HI P FX;L FEMUR FX) Amputee, Degenerate Disk Disease, Arthritis, Chronic Back Pain, Fractures Endocrine: Yes Diabetes, Insulin dep, Hypothyroidsim HEENT: Yes Cataract Cancer: No Psychosocial: Yes (DEMENTIA WITH BEHAVIOR DISTURBANCE;HX OF POLYSUBSTANCE ABUSE) Anxiety, Depression Integumentary: Yes (OSTEOMYELITIS/CELLULITIS OF TOES/FEET;CHRONIC FOOT ULCERS) Blood Disorders: No Family Medical History Cardiovascular disease 19 FATHER 19 MOTHER Diabetes mellitus G8 BROTHER FH: cancer Thyroid disease 19 MOTHER (HYPOTHYROIDISM) No Pertinent Family Hx SOCIAL HISTORY: -ETOH--HX OF ABUSE -DRUGS-HX OF METHADONE USE/ABUSE -SMOKES 2 PPD PAST SURGICAL HISTORY: -RIGHT CATARACT SURGERY 08/2020 -LEFT CATARACT SURGERY 06/2020 -RIGHT HIP FRACTURE 08/09/19--TRANSFERRED TO [place] -RIGHT GREAT TOE AND 3RD TOE AMPUTATION DUE TO OPEN FRACTURE OF 3RD TOE AND OSTEOMYELITIS 12/[address] ALICEA -AMPUTATIONS OF RIGHT 2ND AND 4TH TOES -AMPUTATIONS OF LEFT GREAT AND SECOND TOES -RIGHT KNEE SURGERY X 4 -BACK SURGERIES--DISCECTOMY/FUSIONS -CARDIAC CATH WITH STENT -CHOLECYSTECTOMY -STENT PLACEMENT IN PANCREAS WITH REMOVAL OF PSEUDOCYST -TRACHEOSTOMY WITH LATER REMOVAL -RIGHT 4TH TOE RAY AMPUTATION 09/11/13 DR. ABDULLAHI BUCKLEY -CARDIAC CATH 12/[address] BEARDEN--MULTI-VESSEL DISEASE/INOPERABLE -11/16/21--FRACTURE OF PROSTHETIC RIGHT HIP/TRANSFERRED TO [facility] AND HAD SURGICAL REPAIR AT THAT TIME. LONG HISTORY OF EXTREME NON-COMPLIANCE IN ALL ASPECTS OF CARE Physical Exam Vital Signs - First Documented 12/04/22 13:34 Temp 37.4 Pulse 96 Resp 28 B/P (MAP) 128/77 (94) Pulse Ox 95 O2 Delivery Nasal Cannula O2 Flow Rate 2.00 Capillary Refill : Less Than 3 Seconds Height: 5'10.00" Weight: 180lbs. 0.0oz. 81.696397ye; 25.00 BMI Method:Stated General Appearance: WD/WN, no apparent distress Eyes: Bilateral Eye Normal Inspection HEENT: PERRL/EOMI, normal ENT inspection, pharynx normal Neck: non-tender, full range of motion, supple, normal inspection Respiratory: chest non-tender, lungs clear, normal breath sounds, no respirato ry distress, no accessory muscle use Cardiovascular: regular rate, rhythm, no edema Gastrointestinal: normal bowel sounds, non tender, soft; No distended, No guarding Extremities: normal range of motion, non-tender, normal inspection, no pedal edema, no calf tenderness, normal capillary refill 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, no motor/sensory deficits, alert, normal mood/affect, other (Oriented to person and place, disoriented to the date and situation) Skin: normal color, warm/dry Procedures/Interventions IV : Location: Right Site: Upper arm IV Catheter Type: Peripheral IV IV Catheter Gauge: 18 Progress Ultrasound guidance was used in real-time with no complications Progress/Results/Core Measures Suspected Sepsis SIRS Temperature: Pulse: 96 Respiratory Rate: 28 Laboratory Tests 12/04/22 13:55: White Blood Count 8.3 Blood Pressure 128 /77 Mean: 94 Laboratory Tests 12/04/22 13:55: Creatinine 1.41H, INR Comment 1.4, Platelet Count 172, Total Bilirubin 0.2 Results/Orders Lab Results Laboratory Tests Test 12/04/22 13:37 12/04/22 13:55 12/04/22 13:56 Range/Units Influenza Type A (RT-PCR) Not Detected Not Detecte Influenza Type B (RT-PCR) Not Detected Not Detecte SARS-CoV-2 RNA (RT-PCR) Not Detected Not Detecte White Blood Count 8.3 4.3-11.0 10^3/uL Red Blood Count 3.36 L 4.30-5.52 10^6/uL Hemoglobin 10.2 L 13.3-17.7 g/dL Hematocrit 32 L 40-54 % Mean Corpuscular Volume 96 80-99 fL Mean Corpuscular Hemoglobin 30 25-34 pg Mean Corpuscular Hemoglobin Concent 32 32-36 g/dL Red Cell Distribution Width 13.7 10.0-14.5 % Platelet Count 172 130-400 10^3/uL Mean Platelet Volume 11.3 9.0-12.2 fL Immature Granulocyte % (Auto) 0 % Neutrophils (%) (Auto) 56 42-75 % Lymphocytes (%) (Auto) 32 12-44 % Monocytes (%) (Auto) 10 0-12 % Eosinophils (%) (Auto) 2 0-10 % Basophils (%) (Auto) 1 0-10 % Neutrophils # (Auto) 4.6 1.8-7.8 10^3/uL Lymphocytes # (Auto) 2.7 1.0-4.0 10^3/uL Monocytes # (Auto) 0.8 0.0-1.0 10^3/uL Eosinophils # (Auto) 0.1 0.0-0.3 10^3/uL Basophils # (Auto) 0.1 0.0-0.1 10^3/uL Immature Granulocyte # (Auto) 0.0 0.0-0.1 10^3/uL Prothrombin Time 16.8 H 12.2-14.7 SEC INR Comment 1.4 0.8-1.4 Activated Partial Thromboplast Time 33 24-35 SEC Sodium Level 139 135-145 MMOL/L Potassium Level 4.3 3.6-5.0 MMOL/L Chloride Level 103 98-107 MMOL/L Carbon Dioxide Level 27 21-32 MMOL/L Anion Gap 9 5-14 MMOL/L Blood Urea Nitrogen 17 7-18 MG/DL Creatinine 1.41 H 0.60-1.30 MG/DL Estimat Glomerular Filtration Rate 54 BUN/Creatinine Ratio 12 Glucose Level 378 H 70-105 MG/DL Calcium Level 8.2 L 8.5-10.1 MG/DL Corrected Calcium 8.9 8.5-10.1 MG/DL Magnesium Level 1.5 L 1.6-2.4 MG/DL Total Bilirubin 0.2 0.1-1.0 MG/DL Aspartate Amino Transf (AST/SGOT) 16 5-34 U/L Alanine Aminotransferase (ALT/SGPT) 14 0-55 U/L Alkaline Phosphatase 85 40-136 U/L Troponin I < 0.028 <0.028 NG/ML B-Type Natriuretic Peptide 77.0 <100.0 PG/ML Total Protein 5.4 L 6.4-8.2 GM/DL Albumin 3.1 L 3.2-4.5 GM/DL Glucometer 358 H 70-110 MG/DL My Orders Orders - DEANA AHUMADA MD Ed Iv/Invasive Line Start (12/04/22 13:40) Ekg Tracing (12/04/22 13:40) Monitor-Rhythm Ecg Trace Only (12/04/22 13:40) Chest 1 View, Ap/Pa Only (12/04/22 13:40) Bnp Sim (12/04/22 13:40) Cbc With Automated Diff (12/04/22 13:40) Comprehensive Metabolic Panel (12/04/22 13:40) Magnesium (12/04/22 13:40) Protime With Inr (12/04/22 13:40) Partial Thromboplastin Time (12/04/22 13:40) Influenza A And B By Pcr (12/04/22 13:40) Accucheck Stat ONCE (12/04/22 13:40) Troponin I Mcminn (12/04/22 13:40) Ipratropium/Albuterol Inh Soln (Ipratrop (12/04/22 13:45) Ceftriaxone Iv/Im (Ceftriaxone Iv/Im) (12/04/22 13:45) Doxycycline Hyclate Tablet (Doxycycline (12/04/22 13:45) Covid 19 Inhouse Test (12/04/22 13:40) Ipratropium/Albuterol Inh Soln (Ipratrop (12/04/22 13:45) Dexamethasone Injection (Dexamethasone (12/04/22 13:45) Ns Iv 500 Ml (Ns Iv 500 Ml) (12/04/22 14:41) Medications Given in ED Current Medications Medications Dose Ordered Sig/Manuel Route Start Time Stop Time Status Last Admin Dose Admin Albuterol/ Ipratropium 3 ml ONCE ONCE IH 12/04/22 13:45 12/04/22 13:46 DC 12/04/22 14:32 3 ML Ceftriaxone Sodium 1000 mg/ Sodium Chloride 50 ml @ 100 mls/hr ONCE ONCE IV 12/04/22 13:45 12/04/22 14:14 DC 12/04/22 14:08 100 MLS/HR Dexamethasone Sodium Phosphate 8 mg ONCE ONCE IV 12/04/22 13:45 12/04/22 13:46 DC 12/04/22 14:08 8 MG Doxycycline Hyclate 100 mg ONCE ONCE PO 12/04/22 13:45 12/04/22 13:46 DC 12/04/22 14:08 100 MG Vital Signs/I&O 12/04/22 12/04/22 13:34 14:32 Temp 37.4 Pulse 96 Resp 28 B/P (MAP) 128/77 (94) Pulse Ox 95 99 O2 Delivery Nasal Cannula Nasal Cannula O2 Flow Rate 2.00 2.00 Capillary Refill : Less Than 3 Seconds Blood Pressure Mean: 94 Progress Note : Progress Note 72-year-old male with above history coming in due to shortness of breath. ABCs were intact and vitals were stable on presentation. It was reported that he was 60% on room air and required oxygen at the group home. This was not consistent with report from EMS when they stated they took him off oxygen and he was 98%. He arrived to our emergency department on room air and his oxygen was in fact in the 90s despite his history of COPD. He was given a DuoNeb here as well. An IV was placed by me with ultrasound guidance and basic labs were significant for normal white blood cell count, creatinine slightly elevated compared to his baseline, negative troponin, elevated glucose. He was given gentle IV fluids for his mild SAIRA. He is also tolerating p.o. I think he needs this to be checked as an outpatient he was given antibiotics and steroids for likely COPD exacerbation in the setting of his shortness of breath with increasing productive cough. Chest x-ray ordered and interpreted by me showing no obvious pneumonia or pneumothorax. Flu and COVID test were negative as well. Patient nontoxic-appearing and I believe stable for discharge with outpatient follow-up. He was sent home with strict return precautions. ECG Initial ECG Impression Date: Dec 04, 2022 Initial ECG Impression Time: 13:49 Initial ECG Rate: 72 Initial ECG Rhythm: Normal Sinus Comment Narrow QRS, borderline and left axis deviation, no STEMI, T wave inversions in the high lateral leads, significant baseline wander making it difficult to interpret Diagnostic Imaging Diagonstic Imaging: Xray (chest) Comments NAME: JOLLY [facility]ZANARES [facility] REC#: [id number] PT STATUS: REG ER : 1950 PHYSICIAN: DEANA AHUMADA MD ADMIT DATE: 12/04/22/ER Draft Date of Exam:12/04/22 CHEST 1 VIEW, AP/PA ONLY INDICATION: Shortness of breath. COMPARISON: 10/26/2022. FINDINGS: Old deformities to the left lateral ribs, chronic. Lungs themselves are clear. No effusion, pneumothorax, or acute chest wall pathology. IMPRESSION: Stable chronic findings. Dictated on workstation # [id number] Dict: 12/04/22 1414 Trans: 12/04/22 1419 [id number] Interpreted by: LACEY BUCKLEY Electronically signed by: Departure Impression Primary Impression: COPD exacerbation Disposition: 01 HOME, SELF-CARE Condition: Stable Departure-Patient Inst. Decision time for Depature: 15:10 Referrals: STEPHANIE CHRISTIANSEN (PCP/Family) Primary Care Physician Patient Instructions: COPD Exacerbation, Adult ED Add. Discharge Instructions: This seems consistent with likely mild COPD exacerbation. The chest x-ray was clear and the flu and COVID test were negative. You will be on antibiotics for the next 5 days and you received steroids in the ER. Your creatinine was just slightly worse than it normally is. You did receive IV fluids. We recommend having this redrawn in the next week or so to make sure it is improving. Scripts Doxycycline Hyclate (Doxycycline Hyclate) 100 Mg Tablet 100 MG PO BID for 5 Days, #10 TAB 0 Refills Prov: DEANA AHUMADA MD 12/04/22 DEANA AHUMADA MD Dec 04, 2022 13:45
[2022-12-04 14:14] LABS: BASOPHILS # (AUTO) 0.1 10^3/uL (0.0-0.1); BASOPHILS % (AUTO) 1 % (0-10); EOSINOPHILS # (AUTO) 0.1 10^3/uL (0.0-0.3); EOSINOPHILS % (AUTO) 2 % (0-10); HEMATOCRIT 32 % (40-54); HEMOGLOBIN 10.2 g/dL (13.3-17.7); LYMPHOCYTES # (AUTO) 2.7 10^3/uL (1.0-4.0); LYMPHOCYTES % (AUTO) 32 % (12-44); MEAN CORPUSCULAR HEMOGLOBIN 30 pg (25-34); MEAN CORPUSCULAR HGB CONC 32 g/dL (32-36); MEAN CORPUSCULAR VOLUME 96 fL (80-99); MEAN PLATELET VOLUME 11.3 fL (9.0-12.2); MONOCYTES # (AUTO) 0.8 10^3/uL (0.0-1.0); MONOCYTES % (AUTO) 10 % (0-12); NEUTROPHILS # (AUTO) 4.6 10^3/uL (1.8-7.8); NEUTROPHILS % (AUTO) 56 % (42-75); PLATELET COUNT 172 10^3/uL (130-400); WHITE BLOOD COUNT 8.3 10^3/uL (4.3-11.0)
--- NOTE | 2022-12-04 14:20 | Diagnostic Imaging Report ---
INDICATION: Shortness of breath. COMPARISON: 10/26/2022. FINDINGS: Old deformities to the left lateral ribs, chronic. Lungs themselves are clear. No effusion, pneumothorax, or acute chest wall pathology. IMPRESSION: Stable chronic findings. Dictated by: Dictated on workstation # [id number]
[2022-12-04 14:26] LABS: ALBUMIN 3.1 GM/DL (3.2-4.5)
[2022-12-04 14:27] LABS: CHLORIDE 103 MMOL/L (98-107); POTASSIUM 4.3 MMOL/L (3.6-5.0); SODIUM 139 MMOL/L (135-145)
[2022-12-04 14:28] LABS: CALCIUM 8.2 MG/DL (8.5-10.1); INR 1.4 (0.8-1.4); PROTHROMBIN TIME PATIENT 16.8 SEC (12.2-14.7)
[2022-12-04 14:29] LABS: GLUCOSE 378 MG/DL (70-105); TOTAL PROTEIN 5.4 GM/DL (6.4-8.2)
[2022-12-04 14:30] LABS: CARBON DIOXIDE 27 MMOL/L (21-32)
[2022-12-04 14:31] LABS: BILIRUBIN,TOTAL 0.2 MG/DL (0.1-1.0)
[2022-12-04 14:32] LABS: ALKALINE PHOSPHATASE 85 U/L (40-136)
[2022-12-04 14:33] LABS: CREATININE SERUM 1.41 MG/DL (0.60-1.30); GFR ESTIMATED 54
[2022-12-04 14:34] LABS: BUN/CREATININE RATIO 12
[2022-12-04 14:36] LABS: ALANINE AMINOTRANSFERASE 14 U/L (0-55)
[2022-12-04 14:37] LABS: MAGNESIUM 1.5 MG/DL (1.6-2.4)
[2022-12-04] MEDS ORDERED: NS IV 500 ML 500 ML IV STA (14:41)
[2022-12-04] MEDS ORDERED: DOXY100T2 PO (14:41)
[2022-12-04 16:20] VITALS: BP 111/66
== END 2022-12-04 16:21 | disposition home or self-care (01) ==
LOC: EDUNIT# 13:33 → ER 13:34
DX: J44.1 Chronic obstructive pulmonary disease with (acute) exacerbation (principal); E11.9 Type 2 diabetes mellitus without complications; N17.9 Acute kidney failure, unspecified; F17.210 Nicotine dependence, cigarettes, uncomplicated; Z79.4 Long term (current) use of insulin; Z20.822 Contact with and (suspected) exposure to COVID-19; Z87.09 Personal history of other diseases of the respiratory system
CPT/HCPCS: 36415; 71045; 80053; 82947; 83735; 83880; 84484; 85025; 85610; 85730; 87636; 93005; 93041; 94640

== ENCOUNTER → 2022-12-10 | Outpatient (CLI) | payer MEDICARE, MEDICAID ==
[~2022-12-10] MED LIST changes: +DOXY100T2 PO
== END ==
LOC: WOUNDCARE 13:07
PROVIDERS: ATTEND Family Medicine
DX: E11.621 Type 2 diabetes mellitus with foot ulcer (principal); E11.65 Type 2 diabetes mellitus with hyperglycemia; E11.40 Type 2 diabetes mellitus with diabetic neuropathy, unspecified; M20.42 Other hammer toe(s) (acquired), left foot; R26.89 Other abnormalities of gait and mobility; D46.4 Refractory anemia, unspecified; I70.244 Atherosclerosis of native arteries of left leg with ulceration of heel and midfoot; T65.292A Toxic effect of other tobacco and nicotine, intentional self-harm, initial encounter; E44.0 Moderate protein-calorie malnutrition; I25.10 Atherosclerotic heart disease of native coronary artery without angina pectoris; J44.9 Chronic obstructive pulmonary disease, unspecified; F01.A0 Vascular dementia, mild, without behavioral disturbance, psychotic disturbance, mood disturbance, and anxiety; L97.425 Non-pressure chronic ulcer of left heel and midfoot with muscle involvement without evidence of necrosis; L97.512 Non-pressure chronic ulcer of other part of right foot with fat layer exposed; E11.52 Type 2 diabetes mellitus with diabetic peripheral angiopathy with gangrene; I96 Gangrene, not elsewhere classified
CPT/HCPCS: 11042; 11045; G0463

== ENCOUNTER → 2022-12-20 | Outpatient (CLI) | payer MEDICARE, MEDICAID ==
[~2022-12-20] MED LIST changes: +LEVO750T PO; +MIRT-122 PO; -MIRT-96 PO
== END ==
LOC: RAD 09:02
PROVIDERS: ATTEND Family Medicine
DX: E11.621 Type 2 diabetes mellitus with foot ulcer (principal); L97.512 Non-pressure chronic ulcer of other part of right foot with fat layer exposed; Z53.9 Procedure and treatment not carried out, unspecified reason

== ENCOUNTER → 2022-12-20 | Outpatient (CLI) | payer MEDICARE, MEDICAID ==
--- NOTE | 2022-12-20 10:29 | Diagnostic Imaging Report ---
PROCEDURE: MR imaging left lower extremity without contrast. TECHNIQUE: Multiplanar, multisequence non contrast enhanced MR imaging of the left hindfoot and midfoot was accomplished. INDICATION: Heel ulcer. COMPARISON: MRI of the ankle from 09/02/2022 FINDINGS: A moderate sized ulcer is present on the posterior aspect of the heel fat pad. The underlying posterior and plantar surface of the calcaneal tuberosity has increased subcortical bone marrow edema extending approximately 1 cm into the medullary space. This had some subtle T1 hypointense replacement associated with edema. However, there is no destruction of the cortex of the calcaneal tuberosity. Elsewhere within the hindfoot and midfoot, there are no sites of additional bone marrow edema or marrow replacing process. No tarsal coalition is appreciated. Fatty infiltration of the intrinsic musculature of foot may be due to denervation injury associated with long-standing diabetes. No ankle joint effusion. The Achilles remains intact. Peroneus longus and brevis tendons are normal. Anterior tibialis, extensor hallucis longus and extensor digitorum longus are normal. The posterior tibialis, flexor hallucis longus and flexor digitorum longus are both normal. No ligamentous injury around the ankle. IMPRESSION: 1. Moderate-sized heel ulcer with increased subcortical edema in the posterior aspect of the adjacent calcaneal tuberosity. These changes may represent early osteomyelitis. Dictated by: Dictated on workstation # [id number]
--- NOTE | 2022-12-20 11:13 | Diagnostic Imaging Report ---
PROCEDURE: MRI right lower extremity without contrast. TECHNIQUE: Multiplanar, multisequence non contrast-enhanced MRI of the right midfoot was accomplished. INDICATION: Mid foot ulcer. COMPARISON: None available. FINDINGS: There appears to be a dermal dressing at the lateral aspect of the midfoot-forefoot junction as well as lateral to the 5th metatarsal head. There is some subtle T2 hyperintense subcortical edema involving the periphery of the base of 5th metatarsal. However, this does not have T1 hypointense marrow replacement. The remainder of the osseous structures have normal marrow signal. Prior amputation of the 1st through 4th toes is noted. T2 hyperintense signal and fatty infiltration involving the intrinsic muscles of foot is likely due to denervation injury associated with long-standing diabetes. Mild subcutaneous edema in the dorsal aspect of the foot. No loculated fluid collection to indicate drainable abscess. IMPRESSION: 1. Subtle marrow edema like signal involving the base of the 5th metatarsal is nonspecific. This could represent hyperemia from adjacent soft tissue infection versus a potential early osteomyelitis. Dictated by: Dictated on workstation # [id number]
== END ==
LOC: RAD 09:02
PROVIDERS: ATTEND Family Medicine
DX: E11.621 Type 2 diabetes mellitus with foot ulcer (principal); L97.425 Non-pressure chronic ulcer of left heel and midfoot with muscle involvement without evidence of necrosis; L97.512 Non-pressure chronic ulcer of other part of right foot with fat layer exposed; R60.0 Localized edema

== ENCOUNTER → 2022-12-24 | Outpatient (CLI) | payer MEDICARE, MEDICAID ==
[~2022-12-24] MED LIST changes: -LEVO750T PO; -MIRT-122 PO; +MIRT-96 PO
== END ==
LOC: WOUNDCARE 09:23
PROVIDERS: ATTEND Family Medicine
DX: E11.621 Type 2 diabetes mellitus with foot ulcer (principal); E11.65 Type 2 diabetes mellitus with hyperglycemia; E11.610 Type 2 diabetes mellitus with diabetic neuropathic arthropathy; M20.42 Other hammer toe(s) (acquired), left foot; R26.89 Other abnormalities of gait and mobility; D46.4 Refractory anemia, unspecified; I70.244 Atherosclerosis of native arteries of left leg with ulceration of heel and midfoot; T65.292A Toxic effect of other tobacco and nicotine, intentional self-harm, initial encounter; E44.0 Moderate protein-calorie malnutrition; I25.10 Atherosclerotic heart disease of native coronary artery without angina pectoris; J44.9 Chronic obstructive pulmonary disease, unspecified; F01.A0 Vascular dementia, mild, without behavioral disturbance, psychotic disturbance, mood disturbance, and anxiety; L97.423 Non-pressure chronic ulcer of left heel and midfoot with necrosis of muscle; L97.512 Non-pressure chronic ulcer of other part of right foot with fat layer exposed; M86.171 Other acute osteomyelitis, right ankle and foot; M86.172 Other acute osteomyelitis, left ankle and foot; S90.821A Blister (nonthermal), right foot, initial encounter; I70.234 Atherosclerosis of native arteries of right leg with ulceration of heel and midfoot; E11.52 Type 2 diabetes mellitus with diabetic peripheral angiopathy with gangrene
CPT/HCPCS: A6212; G0463; 99213

== ENCOUNTER 2022-12-26 14:03 | Emergency (ER) | payer MEDICARE, MEDICAID ==
[~2022-12-26] VITALS: Ht 178 cm; Wt 81.6 kg
--- NOTE | 2022-12-26 14:47 | ED General ---
General Chief Complaint: General Problems/Pain Stated Complaint: LETHARGIC Nursing Triage Note: PT TO [facility] WITH CC OF LETHARGIC, PT WAS NORMAL FRIDAY WHEN THE NURSE LAST SAW HIM, SHE CAME BACK ON SHIFT TODAY AND PT WAS WEAK AND NOT ACTING NORMAL. WOUND ON RT FOOT BEING TREATED BY WOUND CARE Source of Information: Patient, EMS Exam Limitations: No Limitations History of Present Illness Date Seen by Provider: Dec 26, 2022 Time Seen by Provider: 14:20 Initial Comments 72-year-old male presents to the emergency department today for "lethargy." He was at a nursing facility and the nurse who took care of him on Friday came back in today and stated he had decreased level of consciousness. Is unclear exactly when this happened throughout the week. He reportedly was alert only to person. On arrival he tells me his name and that he is in the hospital. He does not know the year but does not typically think he would. He complains of diffuse body aches and pains which are chronic for him but no new or acute pains. He denies any fevers or chills. No nausea or vomiting. No abdominal pain. No changes in bowel or bladder habits. He does state that he feels worse than he usually does. All other systems reviewed and negative except documented per HPI. Voice recognition software was used to help create this chart Allergies and Home Medications Allergies Coded Allergies: acetaminophen (Verified Allergy, Intermediate, 10/26/17) Patient Home Medication List Home Medication List Reviewed: Yes Albuterol Sulfate (Albuterol Sulfate) 2.5 Mg/3 Ml Vial.neb, 2.5 MG NEB UD PRN for SHORTNESS OF BREATH, (Reported) Entered as Reported by: AMMY PALAFOX on 12/08/18 1448 Aspirin (Aspirin) 81 Mg Tab.chew, 81 MG PO DAILY, (Reported) Entered as Reported by: MURTAZA CRUM on 12/02/22 1119 Cholecalciferol (Vitamin D3) (Vitamin D3) 125 Mcg (5000 Unit) Capsule, 125 MCG PO DAILY, (Reported) Entered as Reported by: MURTAZA CRUM on 12/21/19 1616 Clonazepam (Clonazepam) 0.5 Mg Tablet, 0.5 MG PO 0800,1400,2000, (Reported) Entered as Reported by: MURTAZA CRUM on 11/27/21 1456 Clonidine HCl (Clonidine HCl) 0.2 Mg Tablet, 0.2 MG PO BID, (Reported) Entered as Reported by: SAIMA HAMPTON on 07/04/20 1115 Clopidogrel Bisulfate (Plavix) 75 Mg Tablet, 75 MG PO DAILY, (Reported) Entered as Reported by: AMMY PALAFOX on 03/05/17 09 Divalproex Sodium (Divalproex Sodium) 125 Mg Cap.sprink, 250 MG PO 0600,1000,1 800, (Reported) Entered as Reported by: AMMY PALAFOX on 03/05/17 09 Docusate Sodium (Colace) 100 Mg Capsule, 100 MG PO BID, (Reported) Entered as Reported by: MURTAZA CRUM on 12/21/19 161 Doxycycline Hyclate (Doxycycline Hyclate) 100 Mg Tablet, 100 MG PO BID Prescribed by: DEANA AHUMADA on 12/04/22 1441 Enalapril Maleate (Enalapril Maleate) 2.5 Mg Tablet, 2.5 MG PO DAILY, (Reported) Entered as Reported by: AMMY PALAFOX on 03/05/17 0918 Ferrous Sulfate (Ferrous Sulfate) 325 Mg Tablet, 325 MG PO Q48H, (Reported) Entered as Reported by: MURTAZA CRUM on 12/21/19 1616 Finasteride (Finasteride) 5 Mg Tablet, 5 MG PO DAILY, (Reported) Entered as Reported by: MURTAZA CRUM on 12/02/22 1119 Gabapentin (Neurontin) 300 Mg Capsule, 300 MG PO HS, (Reported) Entered as Reported by: MURTAZA CRUM on 12/21/19 1616 Glucagon HCl (Glucagon Emergency Kit) 1 Mg Vial, 1 MG IM UD PRN for HYPOGLYCEMIA, (Reported) Entered as Reported by: MURTAZA CRUM on 11/27/21 1456 Hydrocodone/Acetaminophen (Hydrocodone-Acetamin 7.5-325) 7.5 Mg-325 Mg Tablet, 1 EA PO Q6H PRN for PAIN-MODERATE (5-7), (Reported) Entered as Reported by: MURTAZA CRUM on 09/02/22 1322 Icosapent Ethyl (Vascepa) 1 Gm Capsule, 1 GM PO BID, (Reported) Entered as Reported by: AMMY PALAFOX on 12/08/18 1448 Insulin Aspart (Novolog Flexpen) 100 Unit/Ml (3 Ml) Solution, 2 UNITS SQ AC Prescribed by: ELIA KAT on 12/02/22 1147 Insulin Detemir (Levemir Flexpen) 100 Unit/Ml (3 Ml) Insuln.pen, 8 UNITS SQ DAILY Prescribed by: ELIA KAT on 12/02/22 1147 Lactobacillus Acidophilus/Pect (Acidophilus-Pectin Capsule) 1 Each Capsule, 1 CAP PO QID, (Reported) Entered as Reported by: AMMY PALAFOX on 12/08/18 1448 Lansoprazole (Lansoprazole) 15 Mg Capsule.dr, 15 MG PO DAILY, (Reported) Entered as Reported by: MURTAZA RCUM on 11/27/21 145 Levetiracetam (Levetiracetam) 500 Mg Tablet, 500 MG PO BID, (Reported) Entered as Reported by: AMMY PALAFOX on 03/05/17 09 Levothyroxine Sodium (Levothyroxine Sodium) 150 Mcg Tablet, 150 MCG PO DAILY, (Reported) Entered as Reported by: MURTAZA CRUM on 09/02/22 1322 Mag Hydrox/Al Hydrox/Simeth (Mylanta Suspension) 30 Ml Oral.susp, 30 ML PO Q4H PRN for INDIGESTION, (Reported) Entered as Reported by: AMMY PALAFOX on 03/05/17 09 Magnesium Hydroxide (Milk of Magnesia) 400 Mg/5 Ml Oral.susp, 30 ML PO DAILY PRN for CONSTIPATION-1ST LINE, (Reported) Entered as Reported by: AMMY PALAFOX on 02/25/18 0933 Melatonin (Melatonin) 3 Mg Tablet, 3 MG PO HS, (Reported) Entered as Reported by: AMMY PALAFOX on 03/05/17 09 Memantine HCl (Memantine HCl) 5 Mg Tablet, 5 MG PO HS, (Reported) Entered as Reported by: MURTAZA CRUM on 11/27/21 1456 Metoprolol Tartrate (Metoprolol Tartrate) 50 Mg Tablet, 50 MG PO BID WITH MEALS, (Reported) Entered as Reported by: SAIMA HAMPTON on 07/04/20 1115 Mirtazapine (Mirtazapine) 15 Mg Tablet, 15 MG PO HS, (Reported) Entered as Reported by: SAIMA HAMPTON on 07/04/20 1115 Multivitamin (Multivitamin) 1 Each Tablet, 1 EACH PO DAILY, (Reported) Entered as Reported by: MURTAZA CRUM on 11/27/21 1456 Olanzapine (Olanzapine) 5 Mg Tablet, 5 MG PO BID, (Reported) Entered as Reported by: IVONNE COOPER on 09/01/22 0856 Polyethylene Glycol 3350 (Miralax) 17 Gram Powd.pack, 17 GM PO DAILY, (Reported) Entered as Reported by: IVONNE COOPER on 09/01/22 0856 Propylene Glycol (Systane Complete) 0.6 % Drops, 1 DROP OU BID, (Reported) Entered as Reported by: MURTAZA CRUM on 11/27/21 1456 Simvastatin (Simvastatin) 10 Mg Tablet, 10 MG PO HS, (Reported) Entered as Reported by: MURTAZA CRUM on 11/27/21 1456 Tamsulosin HCl (Flomax) 0.4 Mg Cap, 0.4 MG PO DAILY, (Reported) Entered as Reported by: AMMY PALAFOX on 12/08/18 1448 Venlafaxine HCl (Venlafaxine HCl) 37.5 Mg Tab, 37.5 MG PO DAILY, (Reported) Entered as Reported by: MURTAZA CRUM on 12/02/22 1119 Review of Systems Review of Systems Constitutional: see HPI Past Wdaisjf-Evitwb-Devlns Hx Patient Social History Tobacco Use?: No Use of E-Cig and/or Vaping dev: No Substance use?: No Alcohol Use?: No Immunizations Up To Date Tetanus Booster (TDap): Unknown PED Vaccines UTD: Yes First/Initial COVID19 Vaccinat: 04/27/20 Second COVID19 Vaccination Joaquin: 05/18/20 Third COVID19 Vaccination Date: 03/14/21 Seasonal Allergies Seasonal Allergies: No Past Medical History Surgery/Hospitalization HX: HTN,DEMENTIA,DEPRESSION, ANXIETY, DM 2 NOW INSULIN DEPENDENT, SEIZURES, BPH, COPD, PVD, ANEMIA ,ARTHRITIS RIGHT FEMUR FX, RIGHT HIP REPLACEMENT Surgeries: Yes (KNEE SX; BACK-DISCECTOMY/FUSIONS;TOE AMPUTATION;L EYE CATARACT 09/01/20) Amputation, Cardiac, Coronary Stent, Eye Surgery, Orthopedic, Tracheostomy Respiratory: Yes (HX OF RESP. FAILURE WITH TRACH/LATER REMOVED) COPD Currently Using CPAP: No Currently Using BIPAP: No Cardiac: Yes (STENT IN ; SEVERE MULTIVESSEL CAD--INOPERABLE) Angina, Coronary Artery Disease, High Cholesterol, Hypertension, Peripheral Vascular Neurological: Yes (VASCULAR DEMENTIA W/BEHAVIOR DISTURBANCE;PSEUDOBULBAR AFFECT;CVA R FRONTAL) Dementia, Neuropathy, Seizure Disorder, Stroke Reproductive Disorders: No Genitourinary: No Gastrointestinal: Yes (CHRONIC PANCREATITIS/HX OF HEMORRHAGIC PANCREATITIS;SPLENOMEGALY) Gastroesophageal Reflux, Pancreatitis, Esophageal Varices Musculoskeletal: Yes ( CHRONIC PAIN;MULTIPLE TOE AMPUTATIONS;OSTEOMYELITIS;R HIP FX;L FEMUR FX) Amputee, Degenerate Disk Disease, Arthritis, Chronic Back Pain, Fractures Endocrine: Yes Diabetes, Insulin dep, Hypothyroidsim HEENT: Yes Cataract Cancer: No Psychosocial: Yes (DEMENTIA WITH BEHAVIOR DISTURBANCE;HX OF POLYSUBSTANCE ABUSE) Anxiety, Depression Integumentary: Yes (OSTEOMYELITIS/CELLULITIS OF TOES/FEET;CHRONIC FOOT ULCERS) Blood Disorders: No Family Medical History Cardiovascular disease 19 FATHER 19 MOTHER Diabetes mellitus G8 BROTHER FH: cancer Thyroid disease 19 MOTHER (HYPOTHYROIDISM) No Pertinent Family Hx SOCIAL HISTORY: -ETOH--HX OF ABUSE -DRUGS-HX OF METHADONE USE/ABUSE -SMOKES 2 PPD PAST SURGICAL HISTORY: -RIGHT CATARACT SURGERY 08/2020 -LEFT CATARACT SURGERY 06/2020 -RIGHT HIP FRACTURE 08/09/19--TRANSFERRED TO [facility] -RIGHT GREAT TOE AND 3RD TOE AMPUTATION DUE TO OPEN FRACTURE OF 3RD TOE AND OSTEOMYELITIS 12/[address] ALICEA -AMPUTATIONS OF RIGHT 2ND AND 4TH TOES -AMPUTATIONS OF LEFT GREAT AND SECOND TOES -RIGHT KNEE SURGERY X 4 -BACK SURGERIES--DISCECTOMY/FUSIONS -CARDIAC CATH WITH STENT -CHOLECYSTECTOMY -STENT PLACEMENT IN PANCREAS WITH REMOVAL OF PSEUDOCYST -TRACHEOSTOMY WITH LATER REMOVAL -RIGHT 4TH TOE RAY AMPUTATION 09/11/13 DR. ABDULLAHI BUCKLEY -CARDIAC CATH 12/[address] BEARDEN--MULTI-VESSEL DISEASE/INOPERABLE -11/16/21--FRACTURE OF PROSTHETIC RIGHT HIP/TRANSFERRED TO [facility] AND HAD SURGICAL REPAIR AT THAT TIME. LONG HISTORY OF EXTREME NON-COMPLIANCE IN ALL ASPECTS OF CARE Physical Exam Vital Signs Vital Signs - First Documented 12/26/22 14:10 Temp 36.6 Pulse 61 Resp 28 B/P (MAP) 135/72 (93) Pulse Ox 98 O2 Delivery Room Air Capillary Refill : Height, Weight, BMI Height: 5'10.00" Weight: 180lbs. 0.0oz. 81.205576km; 25.00 BMI Method:Stated General Appearance: No Apparent Distress, WD/WN HEENT: PERRL/EOMI, Normal ENT Inspection, Pharynx Normal Neck: Normal Inspection, Supple Respiratory: Chest Non Tender, Lungs Clear, Normal Breath Sounds, No Accessory Muscle Use, No Respiratory Distress Cardiovascular: Regular Rate, Rhythm, No Murmur, Normal Peripheral Pulses Gastrointestinal: Normal Bowel Sounds, No Organomegaly, Non Tender, Soft Extremity: Normal Capillary Refill, Other (Amputations of toes bilaterally appear chronic. There is a wound to the right lateral foot with pressure sore that has a dressing in place. When removed there is no evidence for infection.) Neurologic/Psychiatric: Alert, Oriented x3, No Motor/Sensory Deficits, Normal Mood/Affect, edger runner II-XII Norm as Tested Skin: Normal Color, Warm/Dry Focused Exam Lactate Level 12/26/22 15:48: Lactic Acid Level 1.02 Lactic Acid Level Laboratory Tests Test 12/26/22 15:48 Lactic Acid Level 1.02 MMOL/L (0.50-2.00) Progress/Results/Core Measures Suspected Sepsis SIRS Temperature: Pulse: 61 Respiratory Rate: 28 Laboratory Tests 12/26/22 15:48: White Blood Count 10.7 Blood Pressure 135 /72 Mean: 93 12/26/22 15:48: Lactic Acid Level 1.02 Laboratory Tests 12/26/22 15:48: Creatinine 1.20, INR Comment 1.2, Platelet Count 251, Total Bilirubin 0.3 Results/Orders Lab Results Laboratory Tests Test 12/26/22 15:48 Range/Units White Blood Count 10.7 4.3-11.0 10^3/uL Red Blood Count 3.29 L 4.30-5.52 10^6/uL Hemoglobin 10.0 L 13.3-17.7 g/dL Hematocrit 32 L 40-54 % Mean Corpuscular Volume 96 80-99 fL Mean Corpuscular Hemoglobin 30 25-34 pg Mean Corpuscular Hemoglobin Concent 32 32-36 g/dL Red Cell Distribution Width 13.2 10.0-14.5 % Platelet Count 251 130-400 10^3/uL Mean Platelet Volume 10.8 9.0-12.2 fL Immature Granulocyte % (Auto) 0 % Neutrophils (%) (Auto) 51 42-75 % Lymphocytes (%) (Auto) 35 12-44 % Monocytes (%) (Auto) 12 0-12 % Eosinophils (%) (Auto) 1 0-10 % Basophils (%) (Auto) 1 0-10 % Neutrophils # (Auto) 5.4 1.8-7.8 10^3/uL Lymphocytes # (Auto) 3.7 1.0-4.0 10^3/uL Monocytes # (Auto) 1.3 H 0.0-1.0 10^3/uL Eosinophils # (Auto) 0.1 0.0-0.3 10^3/uL Basophils # (Auto) 0.1 0.0-0.1 10^3/uL Immature Granulocyte # (Auto) 0.0 0.0-0.1 10^3/uL Prothrombin Time 14.9 H 12.2-14.7 SEC INR Comment 1.2 0.8-1.4 Activated Partial Thromboplast Time 29 24-35 SEC Sodium Level 136 135-145 MMOL/L Potassium Level 4.3 3.6-5.0 MMOL/L Chloride Level 100 98-107 MMOL/L Carbon Dioxide Level 25 21-32 MMOL/L Anion Gap 11 5-14 MMOL/L Blood Urea Nitrogen 22 H 7-18 MG/DL Creatinine 1.20 0.60-1.30 MG/DL Estimat Glomerular Filtration Rate 65 BUN/Creatinine Ratio 18 Glucose Level 139 H 70-105 MG/DL Lactic Acid Level 1.02 0.50-2.00 MMOL/L Calcium Level 8.6 8.5-10.1 MG/DL Corrected Calcium 9.5 8.5-10.1 MG/DL Total Bilirubin 0.3 0.1-1.0 MG/DL Aspartate Amino Transf (AST/SGOT) 16 5-34 U/L Alanine Aminotransferase (ALT/SGPT) 12 0-55 U/L Alkaline Phosphatase 89 40-136 U/L Total Protein 6.0 L 6.4-8.2 GM/DL Albumin 2.9 L 3.2-4.5 GM/DL My Orders Orders - FABRICIO GALINDO DO Cbc With Automated Diff (12/26/22 14:19) Comprehensive Metabolic Panel (12/26/22 14:19) Blood Culture (12/26/22 14:19) Urinalysis (12/26/22 14:19) Urine Culture (12/26/22 14:19) Protime With Inr (12/26/22 14:19) Partial Thromboplastin Time (12/26/22 14:19) Chest 1 View, Ap/Pa Only (12/26/22 14:19) Ed Iv/Invasive Line Start (12/26/22 14:19) Vital Signs Adult Sepsis Patie Q15M (12/26/22 14:19) Lactic Acid Analyzer (12/26/22 14:19) Vital Signs/I&O 12/26/22 14:10 Temp 36.6 Pulse 61 Resp 28 B/P (MAP) 135/72 (93) Pulse Ox 98 O2 Delivery Room Air Capillary Refill : Blood Pressure Mean: 93 Departure Communication (Admissions) Patient is hemodynamically stable. He is alert and oriented to person and place here in quite with it. He is able to answer all questions without difficulty. Care was delayed due to significant difficulty getting an IV and blood. His labs are overall unremarkable. Chest x-ray shows no evidence for infection. We tried several times to get a urine sample and patient was unable. He declines catheterization adamantly. Unable to obtain at this time and recommended to get that and follow-up at the nursing facility. With that he will be discharged in stable condition. Impression Primary Impression: Fatigue Qualified Codes: R53.83 - Other fatigue Disposition: 01 HOME, SELF-CARE Condition: Stable (As long as) Departure-Patient Inst. Referrals: STEPHANIE CHRISTIANSEN (PCP/Family) Primary Care Physician Patient Instructions: Fatigue Add. Discharge Instructions: Increase your fluids at home, rest. I recommend you have a urine checked at the nursing facility. Return to the emergency department for any severe concerns. All discharge instructions reviewed with patient and/or family. Voiced understanding. FABRICIO GALINDO DO Dec 26, 2022 14:47
[2022-12-26 15:52] LABS: BASOPHILS # (AUTO) 0.1 10^3/uL (0.0-0.1); BASOPHILS % (AUTO) 1 % (0-10); EOSINOPHILS # (AUTO) 0.1 10^3/uL (0.0-0.3); EOSINOPHILS % (AUTO) 1 % (0-10); HEMATOCRIT 32 % (40-54); LYMPHOCYTES # (AUTO) 3.7 10^3/uL (1.0-4.0); LYMPHOCYTES % (AUTO) 35 % (12-44); MEAN CORPUSCULAR HEMOGLOBIN 30 pg (25-34); MEAN CORPUSCULAR HGB CONC 32 g/dL (32-36); MEAN CORPUSCULAR VOLUME 96 fL (80-99); MEAN PLATELET VOLUME 10.8 fL (9.0-12.2); MONOCYTES # (AUTO) 1.3 10^3/uL (0.0-1.0); MONOCYTES % (AUTO) 12 % (0-12); NEUTROPHILS # (AUTO) 5.4 10^3/uL (1.8-7.8); NEUTROPHILS % (AUTO) 51 % (42-75); PLATELET COUNT 251 10^3/uL (130-400); WHITE BLOOD COUNT 10.7 10^3/uL (4.3-11.0)
[2022-12-26 15:59] LABS: ALBUMIN 2.9 GM/DL (3.2-4.5)
[2022-12-26 16:00] LABS: POTASSIUM 4.3 MMOL/L (3.6-5.0)
[2022-12-26 16:01] LABS: CALCIUM 8.6 MG/DL (8.5-10.1)
[2022-12-26 16:04] LABS: BILIRUBIN,TOTAL 0.3 MG/DL (0.1-1.0)
[2022-12-26 16:06] LABS: CREATININE SERUM 1.2 MG/DL (0.60-1.30)
[2022-12-26 16:14] LABS: INR 1.2 (0.8-1.4); PROTHROMBIN TIME PATIENT 14.9 SEC (12.2-14.7)
--- NOTE | 2022-12-26 16:27 | Diagnostic Imaging Report ---
INDICATION: Fatigue and lethargy and altered mental status. Frontal chest obtained at 4:05 p.m. and compared to 12/04/2022. Heart is borderline in size. There is no focal infiltrate. There are chronic interstitial changes. There are old fracture deformities of the left ribs. IMPRESSION: Chronic changes with no new infiltrate or pneumothorax or pleural fluid. Stable chronic deformities of the left ribs from prior trauma. Dictated by: Dictated on workstation # [id number]
[2022-12-26 17:46] VITALS: BP 140/86
== END 2022-12-26 17:45 | disposition home or self-care (01) ==
LOC: EDUNIT# 14:03 → ER 14:04
DX: R53.83 Other fatigue (principal); E11.9 Type 2 diabetes mellitus without complications; F17.210 Nicotine dependence, cigarettes, uncomplicated; Z79.4 Long term (current) use of insulin
CPT/HCPCS: 36410; 71045; 76937; 80053; 83605; 85025; 85610; 85730; 87040; 99284; C1751; 36415

== ENCOUNTER → 2023-01-28 | Outpatient (CLI) | payer MEDICARE, MEDICAID ==
[~2023-01-28] MED LIST changes: +LEVO750T PO; +MIRT-122 PO; -MIRT-96 PO
== END ==
LOC: WOUNDCARE 13:22
PROVIDERS: ATTEND Family Medicine
DX: E11.621 Type 2 diabetes mellitus with foot ulcer (principal); E11.65 Type 2 diabetes mellitus with hyperglycemia; M20.42 Other hammer toe(s) (acquired), left foot; E11.610 Type 2 diabetes mellitus with diabetic neuropathic arthropathy; R26.89 Other abnormalities of gait and mobility; D46.4 Refractory anemia, unspecified; I70.244 Atherosclerosis of native arteries of left leg with ulceration of heel and midfoot; I70.234 Atherosclerosis of native arteries of right leg with ulceration of heel and midfoot
CPT/HCPCS: A6212; G0463; 99213

== ENCOUNTER → 2023-02-20 | Outpatient (CLI) | payer MEDICARE, MEDICAID | LOC: WOUNDCARE 09:08 | PROVIDERS: ATTEND Family Medicine | DX: E11.621 Type 2 diabetes mellitus with foot ulcer (principal); E11.65 Type 2 diabetes mellitus with hyperglycemia; E11.40 Type 2 diabetes mellitus with diabetic neuropathy, unspecified; I96 Gangrene, not elsewhere classified; M20.42 Other hammer toe(s) (acquired), left foot; D46.4 Refractory anemia, unspecified; R26.89 Other abnormalities of gait and mobility; I70.244 Atherosclerosis of native arteries of left leg with ulceration of heel and midfoot; I70.234 Atherosclerosis of native arteries of right leg with ulceration of heel and midfoot; T65.292A Toxic effect of other tobacco and nicotine, intentional self-harm, initial encounter; E44.0 Moderate protein-calorie malnutrition; S90.812A Abrasion, left foot, initial encounter; I25.10 Atherosclerotic heart disease of native coronary artery without angina pectoris; J44.9 Chronic obstructive pulmonary disease, unspecified; F01.A0 Vascular dementia, mild, without behavioral disturbance, psychotic disturbance, mood disturbance, and anxiety; L97.425 Non-pressure chronic ulcer of left heel and midfoot with muscle involvement without evidence of necrosis; L97.512 Non-pressure chronic ulcer of other part of right foot with fat layer exposed; M86.171 Other acute osteomyelitis, right ankle and foot; M86.172 Other acute osteomyelitis, left ankle and foot; Z68.28 Body mass index [BMI] 28.0-28.9, adult | CPT/HCPCS: A6212; G0463; 99213 ==

== ENCOUNTER 2023-03-02 21:49 | Observation (INO) | payer MEDICARE, MEDICAID ==
[~2023-03-02] VITALS: Ht 177 cm; Wt 72.4 kg
--- NOTE | 2023-03-02 22:09 | ED General ---
General Stated Complaint: FEVER Source of Information: Patient, EMS, Assisted Records Exam Limitations: Other (clinical condition) History of Present Illness Date Seen by Provider: Mar 02, 2023 Time Seen by Provider: 21:49 Initial Comments 72-year-old male presents to the emergency department from a correction for altered mentation. He reportedly has had declining level of consciousness over the last couple of days where he is usually alert and oriented. Record review shows that he was seen here at the end of December and admitted for pneumonia. The patient is somnolent but arousable though he is a very poor historian. He is not really able to provide any history whatsoever. When asked he tells me he is in [place]. All other systems reviewed and negative except documented per HPI. Voice recognition software was used to help create this chart Allergies and Home Medications Allergies Coded Allergies: acetaminophen (Verified Allergy, Intermediate, 10/26/17) Patient Home Medication List Home Medication List Reviewed: Yes Acetaminophen (Tylenol) 325 Mg Tablet, 650 MG PO Q4H PRN for PAIN-MILD (1-4), (Reported) Entered as Reported by: LESLIE RILEY on 03/03/23 1410 Last Action: Reviewed Albuterol Sulfate (Albuterol Sulfate) 2.5 Mg/3 Ml (0.083 %) Vial.neb, 2.5 MG NEB Q6H PRN for SHORTNESS OF BREATH, (Reported) Entered as Reported by: AMMY PALAFOX on 12/08/18 1448 Last Action: Reviewed Aspirin (Aspirin) 81 Mg Tab.chew, 81 MG PO DAILY, (Reported) Entered as Reported by: MURTAZA CRUM on 12/02/22 1119 Last Action: Reviewed Cholecalciferol (Vitamin D3) (Vitamin D3) 125 Mcg (5000 Unit) Capsule, 125 MCG PO DAILY, (Reported) Entered as Reported by: MURTAZA CRUM on 12/21/19 1616 Last Action: Reviewed Clonazepam (Clonazepam) 0.5 Mg Tablet, 0.5 MG PO 0800,1400,1999, (Reported) Entered as Reported by: MURTAZA CRUM on 11/27/21 1456 Last Action: Reviewed Clonidine HCl (Clonidine HCl) 0.2 Mg Tablet, 0.2 MG PO BID, (Reported) Entered as Reported by: SAIMA HAMPTON on 07/04/20 1115 Last Action: Reviewed Clopidogrel Bisulfate (Plavix) 75 Mg Tablet, 75 MG PO DAILY, (Reported) Entered as Reported by: AMMY PALAFOX on 03/05/17917 Last Action: Reviewed Divalproex Sodium (Divalproex Sodium) 125 Mg Cap.sprink, 250 MG PO TID, (Reported) Entered as Reported by: AMMY PALAFOX on 03/05/17917 Last Action: Reviewed Docusate Sodium (Colace) 100 Mg Capsule, 100 MG PO BID, (Reported) Entered as Reported by: MURTAZA CRUM on 12/21/191615 Last Action: Reviewed Enalapril Maleate (Enalapril Maleate) 2.5 Mg Tablet, 2.5 MG PO DAILY, (Reported) Entered as Reported by: AMMY PALAFOX on 03/05/17917 Last Action: Reviewed Ferrous Sulfate (Ferrous Sulfate) 325 Mg Tablet, 325 MG PO Q48H, (Reported) Entered as Reported by: MURTAZA CRUM on 12/21/191615 Last Action: Reviewed Finasteride (Finasteride) 5 Mg Tablet, 5 MG PO DAILY, (Reported) Entered as Reported by: MURTAZA CRUM on 12/02/22 111 Last Action: Reviewed Gabapentin (Neurontin) 300 Mg Capsule, 300 MG PO HS, (Reported) Entered as Reported by: MURTAZA CRUM on 12/21/191615 Last Action: Reviewed Glucagon HCl (Glucagon Emergency Kit) 1 Mg Vial, 1 MG IM UD PRN for HYPOGLYCEMIA, (Reported) Entered as Reported by: MURTAZA CRUM on 11/27/21 1456 Last Action: Reviewed Hydrocodone/Acetaminophen (Hydrocodone-Acetamin 7.5-325) 7.5 Mg-325 Mg Tablet, 1 EA PO Q6H PRN for PAIN-MODERATE (5-7), (Reported) Entered as Reported by: MURTAZA CRUM on 09/02/22 1322 Last Action: Reviewed Icosapent Ethyl (Vascepa) 1 Gm Capsule, 1 GM PO BID, (Reported) Entered as Reported by: AMMY PALAFOX on 12/08/18 1448 Last Action: Reviewed Insulin Aspart (Novolog Flexpen) 100 Unit/Ml (3 Ml) Solution, 9 UNITS SQ DAILY, (Reported) Entered as Reported by: LESLIE RILEY on 03/03/23 1440 Last Action: Reviewed Insulin Aspart (Novolog Flexpen) 100 Unit/Ml (3 Ml) Solution, 6 UNITS SQ 1100,1700, (Reported) Entered as Reported by: LESLIE RILEY on 03/03/23 1442 Last Action: Reviewed Insulin Detemir (Levemir Flexpen) 100 Unit/Ml (3 Ml) Insuln.pen, 12 UNIT SQ HS, (Reported) Entered as Reported by: LESLIE RILEY on 03/03/23 1421 Last Action: Reviewed Lactobacillus Acidophilus/Pect (Acidophilus-Pectin Capsule) 1 Each Capsule, 1 CAP PO QID, (Reported) Entered as Reported by: AMMY PALAFOX on 12/08/18 144 Last Action: Reviewed Lansoprazole (Lansoprazole) 15 Mg Capsule.dr, 15 MG PO DAILY, (Reported) Entered as Reported by: MURTAZA CRUM on 11/27/21 145 Last Action: Reviewed Levetiracetam (Levetiracetam) 500 Mg Tablet, 500 MG PO BID, (Reported) Entered as Reported by: AMMY PALAFOX on 03/05/17917 Last Action: Reviewed Levothyroxine Sodium (Levothyroxine Sodium) 150 Mcg Tablet, 150 MCG PO DAILY, (Reported) Entered as Reported by: MURTAZA CRUM on 09/02/22 1322 Last Action: Reviewed Mag Hydrox/Al Hydrox/Simeth (Mylanta Suspension) 30 Ml Oral.susp, 30 ML PO Q4H PRN for INDIGESTION, (Reported) Entered as Reported by: AMMY PALAFOX on 03/05/17917 Last Action: Reviewed Magnesium Hydroxide (Milk of Magnesia) 400 Mg/5 Ml Oral.susp, 30 ML PO DAILY PRN for CONSTIPATION-1ST LINE, (Reported) Entered as Reported by: AMMY PALAFOX on 02/25/18 09 Last Action: Reviewed Melatonin (Melatonin) 3 Mg Tablet, 3 MG PO HS, (Reported) Entered as Reported by: AMMY PALAFOX on 03/05/17917 Last Action: Reviewed Memantine HCl (Memantine HCl) 5 Mg Tablet, 5 MG PO HS, (Reported) Entered as Reported by: MURTAZA CRUM on 11/27/211455 Last Action: Reviewed Metoprolol Tartrate (Metoprolol Tartrate) 50 Mg Tablet, 50 MG PO BID WITH MEALS, (Reported) Entered as Reported by: SAIMA HAMPTON on 07/04/201114 Last Action: Reviewed Mirtazapine (Mirtazapine) 15 Mg Tablet, 15 MG PO HS, (Reported) Entered as Reported by: SAIMA HAMPTON on 07/04/201114 Last Action: Reviewed Multivitamin (Multivitamin) 1 Each Tablet, 1 EACH PO DAILY, (Reported) Entered as Reported by: MURTAZA CRUM on 11/27/211455 Last Action: Reviewed Olanzapine (Olanzapine) 5 Mg Tablet, 5 MG PO BID, (Reported) Entered as Reported by: IVONNE COOPER on 09/01/22855 Last Action: Reviewed Polyethylene Glycol 3350 (Miralax) 17 Gram Powd.pack, 17 GM PO DAILY, (Reported) Entered as Reported by: IVONNE COOPER on 09/01/22855 Last Action: Reviewed Propylene Glycol (Systane Complete) 0.6 % Drops, 1 DROP OU BID, (Reported) Entered as Reported by: MURTAZA CRUM on 11/27/211455 Last Action: Reviewed Simvastatin (Simvastatin) 10 Mg Tablet, 10 MG PO HS, (Reported) Entered as Reported by: MURTAZA CRUM on 11/27/211455 Last Action: Reviewed Tamsulosin HCl (Flomax) 0.4 Mg Cap, 0.4 MG PO DAILY, (Reported) Entered as Reported by: AMMY PALAFOX on 12/08/18 1448 Last Action: Reviewed Venlafaxine HCl (Venlafaxine HCl) 37.5 Mg Tab, 37.5 MG PO DAILY, (Reported) Entered as Reported by: MURTAZA CRUM on 12/02/221118 Last Action: Reviewed Review of Systems Review of Systems Constitutional: see HPI Past Onmweow-Fdiviz-Nyjdza Hx Patient Social History Tobacco Use?: No Use of E-Cig and/or Vaping dev: No Substance use?: No Alcohol Use?: No Immunizations Up To Date Tetanus Booster (TDap): Unknown PED Vaccines UTD: Yes First/Initial COVID19 Vaccinat: 04/27/20 Second COVID19 Vaccination Joaquin: 05/18/20 Third COVID19 Vaccination Date: 03/14/21 Seasonal Allergies Seasonal Allergies: No Past Medical History Surgery/Hospitalization HX: HTN,DEMENTIA,DEPRESSION, ANXIETY, DM 2 NOW INSULIN DEPENDENT, SEIZURES, BPH, COPD, PVD, ANEMIA ,ARTHRITIS RIGHT FEMUR FX, RIGHT HIP REPLACEMENT Surgeries: Yes (KNEE SX; BACK-DISCECTOMY/FUSIONS;TOE AMPUTATION;L EYE CATARACT 09/01/20) Amputation, Cardiac, Coronary Stent, Eye Surgery, Orthopedic, Tracheostomy Respiratory: Yes (HX OF RESP. FAILURE WITH TRACH/LATER REMOVED) COPD Currently Using CPAP: No Currently Using BIPAP: No Cardiac: Yes (STENT IN ; SEVERE MULTIVESSEL CAD--INOPERABLE) Angina, Coronary Artery Disease, High Cholesterol, Hypertension, Peripheral Vascular Neurological: Yes (VASCULAR DEMENTIA W/BEHAVIOR DISTURBANCE;PSEUDOBULBAR AFFECT;CVA R FRONTAL) Dementia, Neuropathy, Seizure Disorder, Stroke Reproductive Disorders: No Genitourinary: No Gastrointestinal: Yes (CHRONIC PANCREATITIS/HX OF HEMORRHAGIC PANCREATITIS;SPLENOMEGALY) Gastroesophageal Reflux, Pancreatitis, Esophageal Varices Musculoskeletal: Yes ( CHRONIC PAIN;MULTIPLE TOE AMPUTATIONS;OSTEOMYELITIS;R HIP FX;L FEMUR FX) Amputee, Degenerate Disk Disease, Arthritis, Chronic Back Pain, Fractures Endocrine: Yes Diabetes, Insulin dep, Hypothyroidsim HEENT: Yes Cataract Cancer: No Psychosocial: Yes (DEMENTIA WITH BEHAVIOR DISTURBANCE;HX OF POLYSUBSTANCE ABUSE) Anxiety, Depression Integumentary: Yes (OSTEOMYELITIS/CELLULITIS OF TOES/FEET;CHRONIC FOOT ULCERS) Blood Disorders: No Family Medical History Cardiovascular disease 19 FATHER 19 MOTHER Diabetes mellitus G8 BROTHER FH: cancer Thyroid disease 19 MOTHER (HYPOTHYROIDISM) No Pertinent Family Hx SOCIAL HISTORY: -ETOH--HX OF ABUSE -DRUGS-HX OF METHADONE USE/ABUSE -SMOKES 2 PPD PAST SURGICAL HISTORY: -RIGHT CATARACT SURGERY 08/2020 -LEFT CATARACT SURGERY 06/2020 -RIGHT HIP FRACTURE 08/09/19--TRANSFERRED TO [facility] -RIGHT GREAT TOE AND 3RD TOE AMPUTATION DUE TO OPEN FRACTURE OF 3RD TOE AND OSTEOMYELITIS 12/[address] ALICEA -AMPUTATIONS OF RIGHT 2ND AND 4TH TOES -AMPUTATIONS OF LEFT GREAT AND SECOND TOES -RIGHT KNEE SURGERY X 4 -BACK SURGERIES--DISCECTOMY/FUSIONS -CARDIAC CATH WITH STENT -CHOLECYSTECTOMY -STENT PLACEMENT IN PANCREAS WITH REMOVAL OF PSEUDOCYST -TRACHEOSTOMY WITH LATER REMOVAL -RIGHT 4TH TOE RAY AMPUTATION 09/11/13 DR. ABDULLAHI BUCKLEY -CARDIAC CATH 12/[address] BEARDEN--MULTI-VESSEL DISEASE/INOPERABLE -11/16/21--FRACTURE OF PROSTHETIC RIGHT HIP/TRANSFERRED TO [facility] AND HAD SURGICAL REPAIR AT THAT TIME. LONG HISTORY OF EXTREME NON-COMPLIANCE IN ALL ASPECTS OF CARE Physical Exam Vital Signs Vital Signs - First Documented 03/02/23 21:50 Temp 36.8 Pulse 67 Resp 16 B/P (MAP) 110/65 (80) Pulse Ox 95 O2 Delivery Room Air Capillary Refill : Height, Weight, BMI Height: 5'10.00" Weight: 180lbs. 0.0oz. [id number]; 24.00 BMI Method:Stated General Appearance: No Apparent Distress, Other (Somnolent but arousable. Confused. Alert to person only) Eyes: Bilateral Eye Normal Inspection, Bilateral Eye PERRL, Bilateral Eye Other (Unable to test extraocular muscles due to patient condition) HEENT: Normal ENT Inspection, Other (Dry mucous membranes) Neck: Normal Inspection, Supple Respiratory: Chest Non Tender, Other (Rhonchi in the right lung field diffusely, worse in the right upper lobe) Cardiovascular: Regular Rate, Rhythm, No Murmur, Normal Peripheral Pulses Gastrointestinal: Normal Bowel Sounds, No Organomegaly, Non Tender, Soft Extremity: Normal Capillary Refill, Other (Pressure wounds to bilateral heels that appear well-healing and not infected.) Neurologic/Psychiatric: Alert Skin: Normal Color, Warm/Dry Focused Exam Lactate Level 03/02/23 21:55: Lactic Acid Level 1.58 Lactic Acid Level Laboratory Tests Test 03/02/23 21:55 Lactic Acid Level 1.58 MMOL/L (0.50-2.00) Progress/Results/Core Measures Suspected Sepsis SIRS Temperature: Pulse: Respiratory Rate: Laboratory Tests 03/02/23 21:55: White Blood Count 9.2 Blood Pressure / Mean: 03/02/23 21:55: Lactic Acid Level 1.58 Laboratory Tests 03/02/23 21:55: Creatinine 1.05, INR Comment 1.2, Platelet Count 221, Total Bilirubin 0.3 Results/Orders Lab Results Laboratory Tests Test 03/02/23 21:55 03/02/23 22:00 Range/Units White Blood Count 9.2 4.3-11.0 10^3/uL Red Blood Count 3.43 L 4.30-5.52 10^6/uL Hemoglobin 10.6 L 13.3-17.7 g/dL Hematocrit 33 L 40-54 % Mean Corpuscular Volume 95 80-99 fL Mean Corpuscular Hemoglobin 31 25-34 pg Mean Corpuscular Hemoglobin Concent 33 32-36 g/dL Red Cell Distribution Width 13.6 10.0-14.5 % Platelet Count 221 130-400 10^3/uL Mean Platelet Volume 11.0 9.0-12.2 fL Immature Granulocyte % (Auto) 0 % Neutrophils (%) (Auto) 48 42-75 % Lymphocytes (%) (Auto) 41 12-44 % Monocytes (%) (Auto) 10 0-12 % Eosinophils (%) (Auto) 0 0-10 % Basophils (%) (Auto) 1 0-10 % Neutrophils # (Auto) 4.4 1.8-7.8 10^3/uL Lymphocytes # (Auto) 3.7 1.0-4.0 10^3/uL Monocytes # (Auto) 0.9 0.0-1.0 10^3/uL Eosinophils # (Auto) 0.0 0.0-0.3 10^3/uL Basophils # (Auto) 0.1 0.0-0.1 10^3/uL Immature Granulocyte # (Auto) 0.0 0.0-0.1 10^3/uL Prothrombin Time 15.3 H 12.2-14.7 SEC INR Comment 1.2 0.8-1.4 Activated Partial Thromboplast Time 35 24-35 SEC Sodium Level 134 L 135-145 MMOL/L Potassium Level 5.1 H 3.6-5.0 MMOL/L Chloride Level 100 98-107 MMOL/L Carbon Dioxide Level 27 21-32 MMOL/L Anion Gap 7 5-14 MMOL/L Blood Urea Nitrogen 19 H 7-18 MG/DL Creatinine 1.05 0.60-1.30 MG/DL Estimat Glomerular Filtration Rate 76 BUN/Creatinine Ratio 18 Glucose Level 248 H 70-105 MG/DL Lactic Acid Level 1.58 0.50-2.00 MMOL/L Calcium Level 8.4 L 8.5-10.1 MG/DL Corrected Calcium 9.1 8.5-10.1 MG/DL Total Bilirubin 0.3 0.1-1.0 MG/DL Aspartate Amino Transf (AST/SGOT) 12 5-34 U/L Alanine Aminotransferase (ALT/SGPT) 6 0-55 U/L Alkaline Phosphatase 88 40-136 U/L Troponin I < 0.028 <0.028 NG/ML Total Protein 6.6 6.4-8.2 GM/DL Albumin 3.1 L 3.2-4.5 GM/DL Influenza Type A (RT-PCR) Not Detected Not Detecte Influenza Type B (RT-PCR) Not Detected Not Detecte SARS-CoV-2 RNA (RT-PCR) Not Detected Not Detecte My Orders Orders - FABRICIO GALINDO DO Cbc And Automated Diff (03/02/23 22:05) Comprehensive Metabolic Panel (03/02/23 22:05) Blood Culture (03/02/23 22:05) Urinalysis (03/02/23 22:05) Urine Culture (03/02/23 22:05) Protime With Inr (03/02/23 22:05) Partial Thromboplastin Time (03/02/23 22:05) Chest 1 View, Ap/Pa Only (03/02/23 22:05) Ed Iv/Invasive Line Start (03/02/23 22:05) Vital Signs Adult Sepsis Patie Q15M (03/02/23 22:05) Lactic Acid Analyzer (03/02/23 22:05) Ns Iv 500 Ml (Ns Iv 500 Ml) (03/02/23 22:15) Troponin I Sim (03/02/23 22:06) Ekg Tracing (03/02/23 22:06) Covid 19 Inhouse Test (03/02/23 22:06) Influenza A And B By Pcr (03/02/23 22:06) Ct Head Wo (03/02/23 22:09) Ns Iv 500 Ml (Ns Iv 500 Ml) (03/02/23 23:15) Vital Signs/I&O 03/02/23 21:50 Temp 36.8 Pulse 67 Resp 16 B/P (MAP) 110/65 (80) Pulse Ox 95 O2 Delivery Room Air Capillary Refill : Departure Communication (Admissions) Patient is hemodynamically stable. He is very confused whereas reportedly is normally alert, oriented and fully conversive. Unclear the origin at this time. CT of the head is negative on my independent review and confirmed by radiology review. Chest x-ray shows no evidence of pneumonia. Urine is not infected. Labs are otherwise reassuring. He will be admitted for altered mentation and otherwise stable condition. 2315: Spoke to Dr Malagon (resident) on behalf of Dr Fisher. Accepts admission. No new orders. Impression Primary Impression: Altered mental status Disposition: ADMITTED INPATIENT Condition: Stable Admissions Decision to Admit Reason: Admit from ER (General) Departure-Patient Inst. Referrals: STEPHANIE CHRISTIANSEN (PCP/Family) Primary Care Physician FABRICIO GALINDO DO Mar 02, 2023 22:09
[2023-03-02 22:13] LABS: BASOPHILS # (AUTO) 0.1 10^3/uL (0.0-0.1); BASOPHILS % (AUTO) 1 % (0-10); EOSINOPHILS % (AUTO) 0 % (0-10); HEMATOCRIT 33 % (40-54); HEMOGLOBIN 10.6 g/dL (13.3-17.7); LYMPHOCYTES # (AUTO) 3.7 10^3/uL (1.0-4.0); LYMPHOCYTES % (AUTO) 41 % (12-44); MEAN CORPUSCULAR HEMOGLOBIN 31 pg (25-34); MEAN CORPUSCULAR HGB CONC 33 g/dL (32-36); MEAN CORPUSCULAR VOLUME 95 fL (80-99); MONOCYTES # (AUTO) 0.9 10^3/uL (0.0-1.0); MONOCYTES % (AUTO) 10 % (0-12); NEUTROPHILS # (AUTO) 4.4 10^3/uL (1.8-7.8); NEUTROPHILS % (AUTO) 48 % (42-75); PLATELET COUNT 221 10^3/uL (130-400); WHITE BLOOD COUNT 9.2 10^3/uL (4.3-11.0)
[2023-03-02] MEDS ORDERED: NS IV 500 ML 500 ML IV SCH (22:15)
[2023-03-02 22:19] LABS: INR 1.2 (0.8-1.4); PROTHROMBIN TIME PATIENT 15.3 SEC (12.2-14.7)
[2023-03-02 22:25] LABS: ALBUMIN 3.1 GM/DL (3.2-4.5); CHLORIDE 100 MMOL/L (98-107); POTASSIUM 5.1 MMOL/L (3.6-5.0); SODIUM 134 MMOL/L (135-145)
[2023-03-02 22:27] LABS: CALCIUM 8.4 MG/DL (8.5-10.1)
[2023-03-02 22:28] LABS: GLUCOSE 248 MG/DL (70-105); TOTAL PROTEIN 6.6 GM/DL (6.4-8.2)
[2023-03-02 22:29] LABS: CARBON DIOXIDE 27 MMOL/L (21-32)
[2023-03-02 22:30] LABS: BILIRUBIN,TOTAL 0.3 MG/DL (0.1-1.0)
[2023-03-02 22:31] LABS: ALKALINE PHOSPHATASE 88 U/L (40-136); CREATININE SERUM 1.05 MG/DL (0.60-1.30); GFR ESTIMATED 76
[2023-03-02 22:32] LABS: BUN/CREATININE RATIO 18
[2023-03-02 22:34] LABS: ALANINE AMINOTRANSFERASE 6 U/L (0-55)
--- NOTE | 2023-03-02 22:47 | Diagnostic Imaging Report ---
INDICATION: Altered mental status, shortness of breath. COMPARISONS: 01/11/2023 FINDINGS: Single view of the chest shows the cardiac contour to be within normal limits. There is tortuosity of the thoracic aorta with aortic calcific atherosclerosis. There is chronic parenchymal changes with few scattered alveolar infiltrates but no confluent consolidations. There is no effusion or pneumothorax. Soft tissues and bony thorax are unchanged. IMPRESSION: 1. Senescent chest with COPD and chronic parenchymal changes. There are few scattered atelectatic infiltrates but no confluent consolidations. 2. Tortuous thoracic aorta with aortic calcific atherosclerosis. Dictated by: Dictated on workstation # [id number]
[2023-03-02] MEDS ORDERED: NS IV 500 ML 500 ML IV STA (23:15)
[2023-03-02 23:55] VITALS: BP 133/74
[2023-03-03] MEDS: NS IV 1000 ML 1,000 ML IV SCH ×2 (00:08→12:00)
[2023-03-03 00:28] LABS: AMORPHOUS SEDIMENT,UR FEW AMOR URATES /LPF; BACTERIA,URINE NEGATIVE /HPF; BILIRUBIN,URINE NEGATIVE (NEGATIVE); CLARITY,URINE CLEAR; COLOR,URINE YELLOW; GLUCOSE, URINE (UA) TRACE (NEGATIVE); KETONES,URINE NEGATIVE (NEGATIVE); LEUKOCYTE ESTERASE ,URINE NEGATIVE (NEGATIVE); NITRITE,URINE NEGATIVE (NEGATIVE); PROTEIN,URINE 1+ (NEGATIVE); SQUAMOUS EPITHELIAL CELL,UR 0-2 /HPF; WBC,URINE RARE /HPF
[2023-03-03 03:57] VITALS: BP 158/84
[2023-03-03 06:32] LABS: AMPHETAMINE SCREEN, URINE NEGATIVE (NEGATIVE); BARBITURATE SCREEN URINE NEGATIVE (NEGATIVE); CANNABINOID SCREEN, URINE NEGATIVE (NEGATIVE); COCAINE SCREEN URINE NEGATIVE (NEGATIVE); METHADONE STAT NEGATIVE (NEGATIVE); OPIATE SCREEN URINE NEGATIVE (NEGATIVE); OXYCODONE STAT NEGATIVE (NEGATIVE); TRICYCLIC ANTIDEPRESSANTS SCRE NEGATIVE (NEGATIVE)
[2023-03-03 07:19] LABS: BASOPHILS # (AUTO) 0.1 10^3/uL (0.0-0.1); BASOPHILS % (AUTO) 1 % (0-10); EOSINOPHILS # (AUTO) 0.1 10^3/uL (0.0-0.3); EOSINOPHILS % (AUTO) 1 % (0-10); HEMATOCRIT 31 % (40-54); HEMOGLOBIN 9.8 g/dL (13.3-17.7); LYMPHOCYTES # (AUTO) 3.2 10^3/uL (1.0-4.0); LYMPHOCYTES % (AUTO) 34 % (12-44); MEAN CORPUSCULAR HEMOGLOBIN 31 pg (25-34); MEAN CORPUSCULAR HGB CONC 32 g/dL (32-36); MEAN CORPUSCULAR VOLUME 96 fL (80-99); MEAN PLATELET VOLUME 10.7 fL (9.0-12.2); MONOCYTES # (AUTO) 1.1 10^3/uL (0.0-1.0); MONOCYTES % (AUTO) 11 % (0-12); NEUTROPHILS # (AUTO) 4.9 10^3/uL (1.8-7.8); NEUTROPHILS % (AUTO) 52 % (42-75); PLATELET COUNT 186 10^3/uL (130-400); WHITE BLOOD COUNT 9.5 10^3/uL (4.3-11.0)
[2023-03-03 07:34] LABS: ALBUMIN 2.8 GM/DL (3.2-4.5)
[2023-03-03 07:35] LABS: CHLORIDE 107 MMOL/L (98-107); POTASSIUM 4.6 MMOL/L (3.6-5.0); SODIUM 140 MMOL/L (135-145)
[2023-03-03 07:36] LABS: CALCIUM 8.2 MG/DL (8.5-10.1)
[2023-03-03 07:37] LABS: GLUCOSE 132 MG/DL (70-105)
[2023-03-03 07:38] LABS: CARBON DIOXIDE 28 MMOL/L (21-32)
[2023-03-03 07:39] LABS: BILIRUBIN,TOTAL 0.3 MG/DL (0.1-1.0)
[2023-03-03 07:40] LABS: ALKALINE PHOSPHATASE 74 U/L (40-136)
[2023-03-03 07:41] LABS: CREATININE SERUM 0.86 MG/DL (0.60-1.30); GFR ESTIMATED 93
--- NOTE | 2023-03-03 07:41 | Diagnostic Imaging Report ---
INDICATION: AMS< poss L facial droop increased weakness. TECHNIQUE: Routine non contrast-enhanced axial images were obtained from the skull base to the vertex. Auto Exposure Controls were utilized during the CT exam to meet ALARA standards for radiation dose reduction COMPARISON: 12/01/2022 FINDINGS: The ventricles and cortical sulci are diffusely prominent, compatible with age-related volume loss. There are confluent areas of abnormal, low attenuation in the periventricular white matter. This is consistent with chronic small vessel ischemic changes. There is also redemonstration of old small infarct of the right frontal lobe. There is no midline shift or mass-effect. No acute intra-axial hemorrhage is seen. There are no abnormal areas of increased or decreased density to suggest acute hemorrhage or edema. No extra-axial masses or collections are present. The bony calvarium is intact. The visualized paranasal sinuses are unremarkable. The mastoid air cells are clear. IMPRESSION: 1. No acute intracranial abnormality. No CT evidence of mass, acute infarct or intracranial hemorrhage. 2. Old small infarct in the right frontal lobe and redemonstration of background chronic small vessel ischemic changes Dictated by: Dictated on workstation # [id number]
[2023-03-03 07:42] LABS: BUN/CREATININE RATIO 19
[2023-03-03 07:44] LABS: ALANINE AMINOTRANSFERASE < 6 U/L (0-55)
[2023-03-03 07:47] VITALS: BP 135/77
[2023-03-03] MEDS ORDERED: ENOXAPARIN 40 MG/0.4 ML SYRINGE SC SCH (09:00)
[2023-03-03 11:26] VITALS: BP 133/73
--- NOTE | 2023-03-03 11:29 | Short Stay Summary ---
ARABELLA RUSH MD, RESIDENT 03/03/23 1129: HPI History of Present Illness: CC: Altered mental status Patient is a 72-year-old male with a past medical history of COPD, CAD, type 2 diabetes who was brought into the emergency department from [facility] for altered mentation. He reportedly was having decreasing levels of con sciousness over the last couple of days and was somnolent on presentation to the ED. History was obtained from ED physician. Source: RN/MD Exam Limitations: clinical condition Date seen by provider: Mar 03, 2023 Time Seen by Provider: 08:00 Attending Physician Parul Muller PCP Admitting Physician: Jenelle Fisher DO Attending Physician: Mikael Rose MD Consult Date of Admission Mar 02, 2023 at 23:42 Home Medications Home Medications Reviewed patient Home Medication Reconciliation performed by pharmacy medication reconciliations reliability technicians and/or nursing. Patients Allergies have been reviewed. Allergies Coded Allergies: acetaminophen (Verified Allergy, Intermediate, 10/26/17) [id number] Hx Patient Social History 2nd Hand Smoke Exposure: No Recent Hopitalizations: No Alcohol Use?: No Immunizations Up To Date Tetanus Booster (TDap): Unknown Influenza Vaccine Up-to-Date: Yes; Up-to-Date First/Initial COVID19 Vaccinat: 04/27/20 Second COVID19 Vaccination Joaquin: 05/18/20 Third COVID19 Vaccination Date: 03/14/21 Past Medical History Past Medical History 1. COPD 2. CAD s/p stent placement in the - previously followed by Dr. Buckley, not compliant with medications of follow up-severe multivessle -inoperable 3. Diabetes Mellitus Type 2 - insulin requiring; non-compliant w/ insulin 5. Peripheral vascular disease 6. Hypertension 7. Dementia 4. Diabetic Neuropathy 5. Chronic pancreatitis- history of hemorrhagic pancreatitis 6. Degenerative Disk Disease, Arthritis 7. Seizure history- secondary to previous CVA, methadone use and alcohol use 8. Carotid stenosis - moderate 9. Hx of TIA and CVA 10. Depression/Anxiety 11. Hypothyroidism 12. Diabetic Retinopathy 13. History of Pseudohyponatremia secondary severely elevated blood glucose 14. Tobaccoism 15. Esophageal Varices with portal hypertension and hx of enlarged spleen 16. ASOD- bilateral severe, evaluated at [facility] 17. H/O respiratory failure with tracheostomy and reversal 18. History of Gangrene sp resection of toe 09-11-13 19. Illicit drug use- Methadone use, Alcohol use 20. Chronic fracture left femur pathologic appearing 21. Stomach thickening quesitonable for malignancy- GI was recommended outpatient PSH: 1. R Knee surgery x4 2. Back surgery - lumbar discectomy w/ vertebral fusion 3. Coronary Stent 4. cholecystectomy 5. Stent placement in pancreas with pseudocyst removal 6. Tracheostomy with removal 7. RT. 4th toe ray amputation- 09-11-13 Abdullahi Buckley 8. Cardiac Cath 12-26 Christin with inoperable multivessle coronary artery disease. Family Medical History Significant Family History: No Pertinent Family Hx Other Significan Family Hx: SOCIAL HISTORY: -ETOH--HX OF ABUSE -DRUGS-HX OF METHADONE USE/ABUSE -SMOKES 2 PPD PAST SURGICAL HISTORY: -RIGHT CATARACT SURGERY 08/2020 -LEFT CATARACT SURGERY 06/2020 -RIGHT HIP FRACTURE 08/09/19--TRANSFERRED TO [place] -RIGHT GREAT TOE AND 3RD TOE AMPUTATION DUE TO OPEN FRACTURE OF 3RD TOE AND OSTEOMYELITIS 12/[address] ALICEA -AMPUTATIONS OF RIGHT 2ND AND 4TH TOES -AMPUTATIONS OF LEFT GREAT AND SECOND TOES -RIGHT KNEE SURGERY X 4 -BACK SURGERIES--DISCECTOMY/FUSIONS -CARDIAC CATH WITH STENT -CHOLECYSTECTOMY -STENT PLACEMENT IN PANCREAS WITH REMOVAL OF PSEUDOCYST -TRACHEOSTOMY WITH LATER REMOVAL -RIGHT 4TH TOE RAY AMPUTATION 09/11/13 DR. ABDULLAHI BUCKLEY -CARDIAC CATH 12/[address] BEARDEN--MULTI-VESSEL DISEASE/INOPERABLE -11/16/21--FRACTURE OF PROSTHETIC RIGHT HIP/TRANSFERRED TO [facility] AND HAD SURGICAL REPAIR AT THAT TIME. LONG HISTORY OF EXTREME NON-COMPLIANCE IN ALL ASPECTS OF CARE Family History: Cardiovascular disease 19 FATHER 19 MOTHER Diabetes mellitus G8 BROTHER FH: cancer Thyroid disease 19 MOTHER (HYPOTHYROIDISM) Review of Systems ([facility]) Constitutional: No weakness EENTM: No nose congestion Respiratory: No cough, No short of breath Cardiovascular: No chest pain, No edema, No palpitations Gastrointestinal: No abdominal pain, No constipation, No diarrhea, No nausea, No vomiting Genitourinary: No dysuria Psychiatric/Neurological: Denies No Symptoms Reported Reviewed Test Results Reviewed Test Results Lab Laboratory Tests 03/02/23 21:55: White Blood Count 9.2, Red Blood Count 3.43L, Hemoglobin 10.6L, Hematocrit 33L, Mean Corpuscular Volume 95, Mean Corpuscular Hemoglobin 31, Mean Corpuscular Hemoglobin Concent 33, Red Cell Distribution Width 13.6, Platelet Count 221, Mean Platelet Volume 11.0, Immature Granulocyte % (Auto) 0, Neutrophils (%) (Auto) 48, Lymphocytes (%) (Auto) 41, Monocytes (%) (Auto) 10, Eosinophils (%) (Auto) 0, Basophils (%) (Auto) 1, Neutrophils # (Auto) 4.4, Lymphocytes # (Auto) 3.7, Monocytes # (Auto) 0.9, Eosinophils # (Auto) 0.0, Basophils # (Auto) 0.1, Immature Granulocyte # (Auto) 0.0, Prothrombin Time 15.3H, INR Comment 1.2, Activated Partial Thromboplast Time 35, Sodium Level 134L, Potassium Level 5.1H, Chloride Level 100, Carbon Dioxide Level 27, Anion Gap 7, Blood Urea Nitrogen 19H, Creatinine 1.05, Estimat Glomerular Filtration Rate 76, BUN/Creatinine Ratio 18, Glucose Level 248H, Lactic Acid Level 1.58, Calcium Level 8.4L, Corrected Calcium 9.1, Total Bilirubin 0.3, Aspartate Amino Transf (AST/SGOT) 12, Alanine Aminotransferase (ALT/SGPT) 6, Alkaline Phosphatase 88, Troponin I < 0.028, Total Protein 6.6, Albumin 3.1L 03/02/23 22:00: Influenza Type A (RT-PCR) Not Detected, Influenza Type B (RT-PCR) Not Detected, SARS-CoV-2 RNA (RT-PCR) Not Detected 03/03/23 00:10: Urine Color YELLOW, Urine Clarity CLEAR, Urine pH 6.0, Urine Specific [place] 1.010L, Urine Protein 1+H, Urine Glucose (UA) TRACEH, Urine Ketones NEGATIVE, Urine Nitrite NEGATIVE, Urine Bilirubin NEGATIVE, Urine Urobilinogen 1.0, Urine Leukocyte Esterase NEGATIVE, Urine RBC (Auto) NEGATIVE, Urine RBC NONE, Urine WBC RARE, Urine Squamous Epithelial Cells 0-2, Urine Crystals PRESENTH, Urine Amorphous Sediment FEW NELSON URATESH, Urine Bacteria NEGATIVE, Urine Casts NONE, Urine Mucus NEGATIVE, Urine Culture Indicated CULTURE PENDING, Urine Opiates Screen NEGATIVE, Urine Oxycodone Screen NEGATIVE, Urine Methadone Screen NEGATIVE, Urine Barbiturates Screen NEGATIVE, Ur Tricyclic Antidepressants Screen NEGATIVE, Urine Phencyclidine Screen NEGATIVE, Urine Amphetamines Screen NEGATIVE, Urine Methamphetamines Screen NEGATIVE, Urine Benzodiazepines Screen NEGATIVE, Urine Cocaine Screen NEGATIVE, Urine Cannabinoids Screen NEGATIVE 03/03/23 07:12: White Blood Count 9.5, Red Blood Count 3.20L, Hemoglobin 9.8L, Hematocrit 31L, Mean Corpuscular Volume 96, Mean Corpuscular Hemoglobin 31, Mean Corpuscular Hemoglobin Concent 32, Red Cell Distribution Width 13.7, Platelet Count 186, Mean Platelet Volume 10.7, Immature Granulocyte % (Auto) 0, Neutrophils (%) (Auto) 52, Lymphocytes (%) (Auto) 34, Monocytes (%) (Auto) 11, Eosinophils (%) (Auto) 1, Basophils (%) (Auto) 1, Neutrophils # (Auto) 4.9, Lymphocytes # (Auto) 3.2, Monocytes # (Auto) 1.1H, Eosinophils # (Auto) 0.1, Basophils # (Auto) 0.1, Immature Granulocyte # (Auto) 0.0, Sodium Level 140, Potassium Level 4.6, Chloride Level 107, Carbon Dioxide Level 28, Anion Gap 5, Blood Urea Nitrogen 16, Creatinine 0.86, Estimat Glomerular Filtration Rate 93, BUN/Creatinine Ratio 19, Glucose Level 132H, Calcium Level 8.2L, Corrected Calcium 9.2, Total Bilirubin 0.3, Aspartate Amino Transf (AST/SGOT) 9, Alanine Aminotransferase (ALT/SGPT) < 6, Alkaline Phosphatase 74, Total Protein 6.0L, Albumin 2.8L, Serum Alcohol < 10 03/03/23 11:06: Glucometer 263H Radiology Chest x-ray 03/02/2023: IMPRESSION: 1. Senescent chest with COPD and chronic parenchymal changes. There are few scattered atelectatic infiltrates but no confluent consolidations. 2. Tortuous thoracic aorta with aortic calcific atherosclerosis. CT head 03/02/2023: IMPRESSION: 1. No acute intracranial abnormality. No CT evidence of mass, acute infarct or intracranial hemorrhage. 2. Old small infarct in the right frontal lobe and redemonstration of background chronic small vessel ischemic changes Physical Exam-([facility]) Physical Exam Vital Signs VS - Last 72 Hours, by Label 03/02/23 03/02/23 03/02/23 03/03/23 21:50 23:38 23:55 00:49 Temp 36.8 36.6 36.1 Pulse 67 65 58 Resp 16 20 20 B/P (MAP) 110/65 (80) 131/73 133/74 (93) Pulse Ox 95 100 95 O2 Delivery Room Air Room Air Nasal Cannula Nasal Cannula O2 Flow Rate 2.00 2.00 03/03/23 03/03/23 03/03/23 03:57 07:47 08:00 Temp 35.8 36.3 Pulse 60 63 Resp 20 16 B/P (MAP) 158/84 (108) 135/77 (96) Pulse Ox 99 99 99 O2 Delivery Nasal Cannula Nasal Cannula Nasal Cannula O2 Flow Rate 2.00 2.00 2.00 Capillary Refill : General Appearance: WD/WN, no apparent distress HEENT: PERRL/EOMI, normal ENT inspection Neck: non-tender, full range of motion Respiratory: chest non-tender, lungs clear, normal breath sounds, no respiratory distress, no accessory muscle use Cardiovascular: regular rate, rhythm, no edema, no murmur Gastrointestinal: normal bowel sounds, non tender, soft Neurologic/Psychiatric: alert, other (Oriented x1 to person, not oriented to place or time) Skin: normal color, warm/dry Short Stay Diagnosis Discharge Diagnosis-Short Stay Admission Diagnosis Altered mental status Final Discharge Diagnosis Dementia Conclusion Plan Patient is a 72-year-old male with a past medical history of COPD, CAD, type 2 diabetes who presented with altered mental status. Work-up in the ED was normal. Vital signs were all stable. Lab work, CT head, chest x-ray, UA, UDS were all normal. It was noted that patient is going to be transitioning to hospice services later this week. Will discharge back to the [facility] for later progression to hospice. We will be sending patient with urinary catheter due to urinary retention issues. Assessment/Plan Assessment/Plan Admission Status: Observation (1) Altered mental status Status: Acute Assessment & Plan: Patient presented to the ED with altered mental status, likely baseline dementia. Lab work-up was normal, no signs of infection. Chest x-ray negative, CT head negative for any acute findings. UA negative. UDS was also negative. Given normal work-up, likely progression of patient's dementia. (2) CHF (congestive heart failure) Onset Date: 01/06/2014 Status: Chronic (3) Diabetes mellitus Onset Date: 01/20/2014 Status: Chronic (4) CAD (coronary artery disease) Onset Date: 01/20/2014 Status: Chronic (5) Type 2 diabetes mellitus with complication Status: Chronic MIKAEL ROSE MD 03/03/23 1456: Home Medications Allergies Coded Allergies: acetaminophen (Verified Allergy, Intermediate, 10/26/17) [id number]-Russtn Hx Family Medical History Family History: Cardiovascular disease 19 FATHER 19 MOTHER Diabetes mellitus G8 BROTHER FH: cancer Thyroid disease 19 MOTHER (HYPOTHYROIDISM) Supervisory-Addendum Brief Supervisory Addendum I personally performed the li portions of the visit, discussed case with resident and concur with resident documentation of history, physical exam, assessment and treatment plan unless otherwise noted. Patient seems to be at baseline. Will d/c back to facility ARABELLA RUSH MD, RESIDENT Mar 03, 2023 11:29 MIKAEL ROSE MD Mar 03, 2023 14:56
[2023-03-03] MEDS: inSUlin ASPART 1 UNIT/0.01 ML (PER UNIT) SC SCH ×2 (12:00→16:30)
[2023-03-03 13:45] VITALS: BP 133/73
[2023-03-03] MEDS ORDERED: ACET325T38 PO (14:10)
[2023-03-03] MEDS ORDERED: INSU100I88 SQ (14:21)
[2023-03-03] MEDS ORDERED: INSU100I14 SQ ×3 (14:25→14:42)
== END 2023-03-03 16:48 ==
LOC: EDUNIT# 21:49 → ER 21:50 → UNDOADMOB 23:42 → 4TH 23:42 → UNDODISOB 03-03 16:48
PROVIDERS: ADMIT Internal Medicine; ATTEND Family Medicine
DX: R41.82 Altered mental status, unspecified (principal); F03.90 Unspecified dementia, unspecified severity, without behavioral disturbance, psychotic disturbance, mood disturbance, and anxiety; I50.9 Heart failure, unspecified; E11.9 Type 2 diabetes mellitus without complications; I25.10 Atherosclerotic heart disease of native coronary artery without angina pectoris; E11.8 Type 2 diabetes mellitus with unspecified complications; Z79.4 Long term (current) use of insulin
CPT/HCPCS: 70450; 71045; 80053 ×2; 80306; 81000; 82947; 83605; 84484; 85025 ×2; 85610; 85730; 87040; 87088; 87636; 93005; 96360; 96361; 96372; 99284; G0378; G0480; 36415; 80320